=== PATIENT | female | born 1990 | race Caucasian/White ===

== ENCOUNTER 2022-06-23 12:58 | Emergency (ER) | payer BC, SELFPAY ==
[2022-06-23 14:00] VITALS: BP 103/63; PULSE 83; RESP 16; TEMP 36.6; O2SAT 95; BMI 23.5
[2022-06-23 15:11] LABS: Appearance Urine Clear (Clear); Bilirubin Urine Negative (Negative); Blood Urine Trace-intact (Negative); Color Urine Yellow (Yellow); Glucose Urine Negative (Negative); Ketones Urine Negative (Negative); Leukocyte Esterase Urine 1+ (Negative); Nitrite Urine Negative (Negative); Protein Urine Negative (Negative); Urobilinogen Urine 0.2 (0.2-1.0); pH Urine 5.5 (5.0-8.5)
[2022-06-23 15:18] LABS: WBC Urine 0-2 (0-5)
[2022-06-23 15:19] LABS: Squamous Epithelial Cell Urine Few (None-Few)
[2022-06-23 16:28] LABS: Basophils Absolute Auto 0.05 K/uL (0.00-0.30); Basophils Percent Auto 0.5 % (0.0-3.0); Eosinophils Absolute Auto 0.17 K/uL (0.00-0.50); Eosinophils Percent Auto 1.7 % (0.0-7.0); Hematocrit 39.8 % (33.0-51.0); Hemoglobin* 13.1 gm/dL (12.0-16.0); Immature Granulocytes Abs Auto 0.08 K/uL (0.00-0.30); Immature Granulocytes Pct Auto 0.8 %; Lymphocytes Percent Auto 19.5 % (20-44); Mean Corpuscular HGB Conc 33 gm/dL (32-36); Mean Corpuscular Hemoglobin 29 pg (26-34); Mean Corpuscular Volume 88 fL (80-100); Monocytes Percent Auto 6.7 % (0.0-11.0); Neutrophils Absolute Auto 6.96 K/uL (1.7-7.0); Neutrophils Percent Auto 70.8 % (42.0-72.0); Platelet Count* 459 K/uL (140-440); RDW Coefficient of Variation % 13.5 % (11.5-15.5); Red Blood Count 4.53 m/uL (4.00-5.20); White Blood Count* 9.84 K/uL (4.50-11.00)
[2022-06-23 16:34] LABS: Slide Review Reflex No
[2022-06-23] MEDS: 0.9 % SODIUM CHLORIDE 1000 ml 1,000 ML IV (16:37)
[2022-06-23 16:40] LABS: Chloride* 106 mmol/L (96-114)
[2022-06-23 16:41] LABS: Potassium* 3.8 mmol/L (3.6-5.1); Sodium* 139 mmol/L (135-149)
[2022-06-23 16:44] LABS: Blood Urea Nitrogen* 12 mg/dL (5-24); Carbon Dioxide* 24 mmol/L (20-32); Creatinine* 0.6 mg/dL (0.5-1.5); Est. Creatinine Clearance* 132.11; Estimated Glomerular Filt Rate 123 ml/min
[2022-06-23 16:45] LABS: Calcium* 8.5 mg/dL (8.4-10.6); Glucose* 70 mg/dL (60-115)
--- NOTE | 2022-06-23 16:45 | CRLHL7_ITS ---
For Patients: As a result of the Century Cures Act, medical imaging exams and procedure reports are released immediately into your electronic medical record. You may view this report before your referring provider. If you have questions, please contact your health care provider. INDICATION: done 1.5 weeks ago now with left-sided pelvic pain. TECHNIQUE: CT abdomen and pelvis without contrast. COMPARISON: None. FINDINGS: Lower chest: Unremarkable. Liver: Normal in size and attenuation. No suspicious masses. Gallbladder and bile ducts: No stones or inflammation. No biliary dilatation. Pancreas: Unremarkable. No mass or inflammation. Spleen: Normal in size. No masses. Adrenal glands: Normal in size. No nodules. Kidneys: Normal in size. No suspicious masses, stones, or hydronephrosis. GI tract: Unremarkable. Normal in caliber. No sign of mass or inflammation. Normal appendix. Vasculature: Abdominal aorta is normal in caliber. Lymph nodes: No lymphadenopathy. Peritoneum/Abdominal Wall: Postsurgical changes of section in the lower anterior pelvic wall. No free air or free fluid. No abscess identified. Pelvis: Enlarged uterus with hyperdense fluid in the endometrial canal, consistent with recent state. Bones: Transitional anatomy the lumbosacral junction. Otherwise, unremarkable. IMPRESSION: uterus. Otherwise, unremarkable CT of the abdomen and pelvis. No acute findings or CT findings to explain the patient`s left-sided pelvic pain. Please note that all CT scans at this facility use dose modulation, iterative reconstruction, and/or weight-based dosing when appropriate to reduce radiation dose to as low as reasonably achievable. Dictated by Diaz Pineda MD @ 06/23/2022 6:08:37 PM (Electronically Signed)
--- NOTE | 2022-06-23 16:46 | ED_ITS ---
HPI - Female Genitourinary General Chief complaint: Urogenital Problems, Female Stated complaint: Pelvic pain Time Seen by Provider: 06/23/22 16:11 History of Present Illness HPI Narrative: 31-year-old woman presenting to the emergency department with complaint of left pelvic pain. Worse with any movement. Has had difficulty with initiating urination and garcia tremendously after urination. Was given Macrobid which she had hesitated on taking by OB for presumed urinary tract infection. Started this yesterday. This is now 4 days of pain. Has not noticed any swelling or erythema. She has severe pain that starts in the left adnexal area and radiates down toward the urethra she says. There has been no fever. She did have a catheter placed but does not sound like there was any trouble initially. The C- section was 2 weeks ago. Is breast feeding at least pumping and is anxious to receive anything that might get to baby and doesn't want to dump. Wants imaging but appears to want to avoid IV contrast. She is worried she might have a kidney stone. She does not have a personal history of nephrolithiasis. Related Data Home Medications Medication Instructions Recorded Confirmed prenat.vits,luis,[id number] 1 tab PO QDAY 05/20/22 05/20/22 Previous Rx's Medication Instructions Recorded triamcinolone acetonide 0.1 % 1 applic dental BID-TID PRN mouth 05/20/22 dental paste irritation #5 grams Allergies Allergy/AdvReac Type Severity Reaction Status Date / Time Cefprozil Allergy Severe Swelling/Hi Uncoded 05/20/22 14:59 ves Ciprofloxacin Allergy Unknown Uncoded 05/20/22 14:59 Penicillin Allergy Unknown Uncoded 05/20/22 14:59 Review of Systems Status of ROS: Reports: 6 or more systems reviewed and unremarkable except as noted in History and below [facility] Social History Smoking Status: Never smoker Do you use any of these nicotine containing products: None Second hand tobacco smoke exposure: No How often do you have a drink containing alcohol: never AUDIT-C Alcohol total score: 0 Non-prescribed substance use: denies use Exam Narrative: Exam Narrative: Pleasant. Initially tearful requesting some intervention. Breathing easily. Lungs appear to be clear. Cardiovascular with regular rate and rhythm. Abdomen is soft and quite tender in the left adnexal area. No flank pain. I do not appreciate any masses. Incision looks well-healed. No erythema. Extremities are without edema. Returned later with hoop bending machine operator for perineal exam. There is maybe more erythema than I might expect in the periurethral area. Tissues to seem a little puffy. Do not see any lesions. Const: Vital Signs, click to edit/add: Vital Signs - 24 hr 06/23/22 16:49 Temperature 97.2 F L Pulse Rate [Pulse Oximeter] 77 Respiratory Rate 18 Blood Pressure [Le ft Upper Arm] 102/70 Pulse Oximetry 99 Oxygen Delivery Me thod Room Air Documenting provider has reviewed patient's vital signs: yes Course Vital Signs Vital signs: Initial Vital Signs Temperature 97.9 F 06/23/22 14:00 Temperature Source Temporal Artery Scan 06/23/22 14:00 Pulse Rate 83 06/23/22 14:00 Respiratory Rate 16 06/23/22 14:00 Blood Pressure 103/63 06/23/22 14:00 Blood Pressure Mean 76 06/23/22 14:00 Pulse Oximetry 95 06/23/22 14:00 Oxygen Delivery Method 06/23/22 14:00 Vital Signs Temperature 97.9 F 06/23/22 14:00 Pulse Rate 83 06/23/22 14:00 Respiratory Rate 16 06/23/22 14:00 Blood Pressure 103/63 06/23/22 14:00 Pulse Oximetry 95 06/23/22 14:00 Oxygen Delivery Method 06/23/22 14:00 Temperature 97.2 F L 06/23/22 16:49 Pulse Rate 77 06/23/22 16:49 Respiratory Rate 18 06/23/22 16:49 Blood Pressure 102/70 06/23/22 16:49 Pulse Oximetry 99 06/23/22 16:49 Oxygen Delivery Method 06/23/22 16:49 MDM - Female Genitourinary MDM Narrative Medical decision making narrative: Unusual to evolve urethral irritation after a week of normalcy. Perhaps there is some impingement on outflow. Could be retaining urine, seroma, ureteral stone? Urinalysis has already been resulted in it does not appear to be infectious etiology. Bladder scan for around 140 and then voided 300 CT abd and pelvis has been done. I do not appreciate any nephrolithiasis. This was done without contrast and considering postop study not ideal but see HPI above. Radiology over-read notes unremarkable CT abdomen and pelvis. On reassessment overall seems improved. Is pumping. Discuss this case with OB on-call who agree with recommendations for phenazopyridine. I think ana-bottle might also be helpful. Lab Data Attestation: I reviewed the patient's lab results. Labs: Lab Results 06/23/22 06/23/22 06/23/22 Range/Units 14:45 16:20 16:20 WBC 9.84 (4.50-11.00) K/uL RBC 4.53 (4.00-5.20) m/uL Hgb 13.1 (12.0-16.0) gm/dL Hct 39.8 (33.0-51.0) % MCV 88 (80-100) fL MCH 29 (26-34) pg MCHC 33 (32-36) gm/dL RDW Coeff of Payal 13.5 (11.5-15.5) % Plt Count 459 H (140-440) K/uL Neut % (Auto) 70.8 (42.0-72.0) % Lymph % (Auto) 19.5 L (20-44) % [place] % (Auto) 6.7 (0.0-11.0) % Eos % (Auto) 1.7 (0.0-7.0) % Baso % (Auto) 0.5 (0.0-3.0) % Neut # (Auto) 6.96 (1.7-7.0) K/uL Lymph # (Auto) 1.90 (0.90-2.90) K/uL [place] # (Auto) 0.70 (0.00-0.90) K/UL Eos # (Auto) 0.17 (0.00-0.50) K/uL Baso # (Auto) 0.05 (0.00-0.30) K/uL Abs Immat Gran (auto) 0.08 (0.00-0.30) K/uL Imm/Tot Granulo (auto) 0.8 % Sodium 139 (135-149) mmol/L Potassium 3.8 (3.6-5.1) mmol/L Chloride 106 (96-114) mmol/L Carbon Dioxide 24 (20-32) mmol/L BUN 12 (5-24) mg/dL Creatinine 0.6 (0.5-1.5) mg/dL Estimated Creat Clear 132.11 Estimated GFR 123 ml/min Glucose 70 (60-115) mg/dL Calcium 8.5 (8.4-10.6) mg/dL C-Reactive Protein < 0.5 L (0.5-1.0) mg/dL Urine Color Yellow (Yellow) Urine Appearance Clear (Clear) Urine pH 5.5 (5.0-8.5) Ur Specific [place] 1.020 (1.000-1.030) Urine Protein Negative (Negative) Urine Glucose (UA) Negative (Negative) Urine Ketones Negative (Negative) Urine Blood Trace-intact A (Negative) Urine Nitrite Negative (Negative) Urine Bilirubin Negative (Negative) Urine Urobilinogen 0.2 (0.2-1.0) Ur Leukocyte Esterase 1+ A (Negative) Urine RBC 5-10 A (0-2) Urine WBC 0-2 (0-5) Ur Squamous Epith Cells Few (None-Few) Urine Bacteria None (None) Discharge Plan Discharge Clinical Impression: Pelvic pain, Urethritis Patient Disposition: Home w/ Parent or Adult Condition: Improved Additional Instructions: Given your concerns, I would continue to take combination of up to 1000 mg of acetaminophen or up to 800 mg of ibuprofen per dose. Washing with the ana bottle would probably be helpful. Can do this during voiding. Watch for any evolving lesions. Might try placing aloe gel containing lidocaine or perhaps hydrocortisone cream. Stay well-hydrated. As long as not markedly worse, I think you can continue with current treatment course over the next 2 days. Otherwise if this is continuing beyond that I would follow up again with your sheet metal superintendent. Pyridium/phenazopyridine from [facility]. Prescriptions: No Action prenat.vits,luis,[id number] Tablet 1 tab PO QDAY triamcinolone acetonide 0.1 % paste 1 applic dental BID-TID PRN (Reason: mouth irritation) Qty: 5 0RF Rx Instructions: use after food and/or drink and/or oral hygiene Follow Up/Referrals: Provider,Not a Local [Primary Care Provider] - Stand Alone Forms: Fronto Info Instructions
[2022-06-23] MEDS: KETOROLAC 30 MG/ML inj IVP (16:47)
[2022-06-23 16:49] VITALS: BP 102/70; PULSE 77; RESP 18; TEMP 36.2; O2SAT 99
[2022-06-23 16:49] LABS: C Reactive Protein* < 0.5 mg/dL (0.5-1.0)
--- NOTE | 2022-06-23 16:56 | ED.NURSE ---
Pt to CT
--- OUTSIDE RECORDS SUMMARY | 2022-06-23 17:38 | XMS_ITS | Encounter Summary ---
:1990 Author Organization [place] Address 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 documented as of this encounter Plan of Treatment Not on filedocumented as of this encounter Visit Diagnoses Not on filedocumented in this encounter Additional Health Concerns Assessment Noted Time PHQ-9 Depression Total Score: 2 01/26/2019 11:18 AM CD T documented as of this encounter Care Teams Needle Board Repairer Relationship Specialty Start Date End Date Justin Loya MD PCP - General Family Practice 02/19/11 [facility] [address] [place] [address] Silas Santiago MD MD Pain Clinic 11/29/13 [facility] [address] [place], [place] [id number] Caden Leone, Assigned Surgical Provider 07/20 01/08 [place] [address] documented as of this encounter
--- OUTSIDE RECORDS SUMMARY | 2022-06-23 17:38 | XMS_ITS | Clinical Summary ---
:1990 Author Organization [facility] [place] [address] Care Team Providers Name Role Phone Justin Loya MD Primary Care Provider [phone] Allergies Active Allergy Reactions Severity Noted Date Comments Cefprozil Hives, Edema High 02/17/2011 Cephalosporins *Unknown 08/17/2015 Ciprofloxacin Paresthesias 11/01/2016 Penicillins Hives, Rash, Edema High 09/22/2011 Pollen Extracts Other - Describe In 03/31/2013 Seaso nal Allergies - Comment Field Sneezing. Propylthiouracil Rash 08/15/2021 Metoclopramide Anxiety, Other - Describe 02/29/2020 Restlessness, In Comment Field squirming Medications Medication Sig Dispensed Refills Start Date End Date Status Cholecalciferol, Take 5,000 Units 0 Active Vitamin D3, (VITAMIN by mouth. D-3) 400 unit capsule magnesium oxide 240 mg Take 1 tablet by 0 Active magnesium pwpk mouth once daily. levalbuterol (XOPENEX inhale 2 puffs (45 15 g 0 0 Active HFA) 45 mcg/actuation mcg) by inhalation inhaler route every 6 hours as needed wheezing LORazepam (ATIVAN) 1 Take 1 Tablet (1 30 Tablet 0 04/08/2021 Active mg tabletIndications: mg) by mouth 3 Panic disorder times daily. vit,luis Vitamin 0 Active 74/iron/folic ( VITAMIN 1+1 ORAL) mupirocin (BACTROBAN 0 07/19/2021 Active OINTMENT) ointment triamcinolone 0.1% Apply small amount 1 g 2 05/08/2022 Active (KENALOG IN ORABASE) to affected area 0.1 % in mouth 2 times a pasteIndications: Oral day. ulcer Active Problems Problem Noted Date Difficulty of mother performing 06/16/20 [facility] Pre-conception counseling 08/16/2021 Overview: [facility] CONSULTATION ON -- 09/05/21 Virtual Visit (this appt is going to be moved off VV day and onto MOMS day per Dr. Villar) [facility] consult with last 0 --WW Pt had preconception consult with Dr. Cindy Stephen on 11/14/19 --in [place] REASON FOR CONSULT: Maternal complicatio ns (increased vaginal bleeding and abd pain requiring US x 2, CT abd and pelvis scans at [facility], PT, pelvic massage PT, consults with neurology for left leg weakness and LLQ pain) since last delive ry 08/2020--discuss results TODAY'S APPOINTMENT: MD Consultation PRIMARY DIAGNOSIS: 30 y.o. Estim ated Date of Delivery: None noted. Complicated medical hx --reviewed record s from previous clinics and hospital systems. Also multiple antibiotic allergies ?? Thrombus of left jugular vein 05/2017 -History of a clot on the neck when she had IV contrast injected for an MRI. She was seen for a thrombophilia work up that was negative. Her father and PGM have history of clot s as well. She was treated with Xarelto ?? POTS ?? Hx of chronic pain on her face, neck, lower extremities, back and abdomen ?? Trigeminal neuralgia (facial pain)--s ees Neurology at [facility] ?? H/O ROM and delivery at 34 we eks 08/2020--had C/S--pt with continued pain following C/S (pt refuses epidural or spinal d/t back issues) --had an emergency C/S requiring genera l anesthesia as well as a TAP block, she had LLQ pain and tenderness as well as subjective left leg weakness, especialy when lifting her thigh. She as a sensation of tugging in the LLQ when cycling as w ell. She has not noted any lump or bulge. She saw a neurologist last year and did not have any conclusion from that consult. Has a H/O lumbar surgery but states t hat she had a lumbar MRI that was normal . Evaluation for hernia negative--see surgical consult scan 08/06/21. ?? Anxiety--baseline anxiety is high, pt was reluctant to treat with medications , mental health consult was ordered by declined by pt. -- pt has had multiple phone calls requ esting labs and tests, see 08/08/21 telephone note -- note: Very anxious, requi ring a lot of RN support. Pt saw multiple providers within [facility] for care ([facility], [place], [place], and [facility]). Per RN, pt asking the same questions multip le times to various staff. ?? H/O spine decompression L5/S1--surger y done --declines spinal or epidural blocks, needs general anesthesia for C/S ?? UTI symptoms (dysuria, frequency, abd ominal pain): ?? Graves Disease dx 07/2019--stopped martín atment when she found out she was . Per Dr. Stephen in [place] on 11/14/19: --Subacute thyroiditis for which the pa tient is now euthyroid and TSH has improved to the mid normal range. (see endo note from 08/15/21) ?? H/O Vaginismus and pelvic dysfunction and has done PT and used vaginal dilators (TVUS causes pain, declines speculum exams) ?? Raynaud's Disease--neg SSA, SSB 07/11 ?? BMI = 19 REFERRING PHYSICIAN/PHONE/LAST UPDATE: Hien Galindo, [facility] [phone] Primary MD approves scheduling of recomm ended ultrasounds/testing: Not specified SPECIALISTS/CONSULTS: Multiple Counseling at [facility] Neurology: Dr. Torsten Umaña 10/30/20 (s nicolas in [facility]) consult for Left leg weakness and pulling sensation in left groin since C/S Vascular Medicine: Dr. Iglesia Givens- [facility] Rheumatology: Dr. Jocelyn George, Ophthamology: Dr. Silas Jorge, [facility] Endocrinology: Dr. Lois Carr, LV /2 02/07: I have reviewed lab findings with the patient in detail. She is reassured that she is euthyroid. For planning, goal TSH is under 2.5, but given t hat the patient has negative TPO antibod y and TSH is improving, it is reasonable to monitor and not treat with levothyroxine at this point. Also, patient is reassured that Graves disease still remains i n remission. 2. We discussed thyroid hor jocelyne changes during . The patient is interested in starting to attempt now. In the meantime, she has upcoming appointment with her AGRICULTURE LABORATORY TECHNICIAN because of change in her cycles and delayed ovul ation. Current labs do not explain the change in her menstrual cycles. 3. Recheck a TSH, free T4, free T3 in 6 weeks. The patient in the meantime should call if s he has a positive test. We carol martínez plan to do monthly thyroid labs until 16 weeks and then each trimester. *recent Anesthesiologist consult 08/08/21 : Called patient at request of Dr. Galindo to discuss prior anesthetic for and discuss anesthetic options for future c-sections (not currently ). Approximately 1 year ago, patient had a general anesthetic for her along with TAP blocks. After the procedure, she has had persistent pain when flexing the left leg at the hip. She is wonderi ng if the TAP block could have caused th is. I reassured her that the TAP block only blocks the small anterior rami sensory nerves of the anterolateral abdominal wall and would not have be a contributing factor to her left leg/hip symptoms. We also spent a significant amount of time discussing risks, benefits, contraindications to regional anesthesia (along with general anesthesia) in a very broad sens e (e.g. risk of paralysis, risk of being on blood thinners, risk of spinal headaches, etc). She was concerned about being told she has low lying cerebellar tonsils on an MRI performed at [facility]. She sta sophia she has not been told anything about Chiari Malformation. I can't see this MRI - but based on her MRI from 2017, I don't see an immediate reason why she would not be able to have a regional anesthet ic. I discussed with her that should she become , we would explore her MRI from [facility] further to see if there are concerning findings, and we could delve further into a discussion on risks/benefits of regional vs. GA for her Include: Specialty MD Clinic Name Phone# [facility] [place] and ADDED TO PATIENT CARE TEAM No CARE COORDINATION: GENETICS: PROCEDURES: MRI lumbar spine 07/2021 PERTINENT LABS: 07/31/21: TSH = 2.99, candi e T4 = 0.90, T3 = 2.60, TSI = 0.15 = 2.99, TPO antibody = 4 07/11/21: SSA and SSB WNL PERTINENT MEDS: Vitamin D, Ferrous sulfa te, Xopenex, ativan, magnesium Preferred delivery location: pt does not want to go back to [facility], looking at [facility] or [facility] PLAN OF CARE: Plan per Dr. Kimberly Waldrop ke, [place] [facility]: 05/2021: Preconception counseling done - recommend waiting 1 year to conceive after c- section. Briefly discussed history; patien t likely will plan repeat . Als o discussed h/o jugular vein thrombus after injection of contrast for MRI. [facility] recommended lovenox PP in 1st . Will plan MFM consult in next as well. Also discussed h/o PPROM at 36 we eks - discussed option for Makeena, cervical length U/S. Incisional pain 08/28/2020 Plan 08/22/2020 Overview: hyponbabies Vaginismus 01/13/2020 High-risk in third trimester 01/13/2020 Overview: Formatting of this note is dif ferent from the original. 29 y.o. Patient wants to avoid regional anesthes ia - Patient doesn't qualify for water due to history of DVT and POTS Medical concerns: ?? Thrombus of left jugular vein 05/2017 - [facility] recommended bASA only ?? POTS ?? Hx of chronic pain on her face, neck, lower extremities, back and abdomen ?? Trigeminal neuralgia (facial pain)--s ees Neurology at [facility] - no medications ?? Anxiety - has therapist, no meds H/O spine decompression L5/S1--surgery done , Asthma-exercise induced, Migraines, Vaginismus, Insomnia, Neuropathy, Exopho janice of right eye, Raynaud's disease Hx of thyroid disorder: Graves(hyperthyr oid)- sees endocrinology Dr. Dawson -no medications currently bASA Genetic screening: per [facility]- NIPT ordered BMI:19.7; 25-35# Recommended wt gain HSV: denies Ultrasound findings: 01/30/20 IMPRESSION: 1. Valles, viable, intrauterine pregn krystina. 2. Ultrasound EDC is 09/18/2020 with a ges tational age of 6 weeks 6 days. 3. Left corpus luteum cyst are seen. ??Flu vaccine: Declines- reports history of nervous system reaction with previous flu vaccine Pertussis Vaccine: Peds: undecided : Benjie Graves disease 07/20/2019 History of DVT (deep vein thrombosis) 07/20/2019 Overview: Prior IJ thrombosis From radiologic proc edure (2018) on Xarelto for 3 months then discontinued Negative acquired/congenital thrombophil ia workup No need for heparin prophylaxis in pregn krystina but would utilize low dose ASA as patient also has Graves hyperthyroid Postural orthostatic tachycardia syndrome 02/22/2018 Paresthesia 02/22/2018 Hypermobility syndrome 02/22/2018 Sensory disorder 10/12/2017 Hyperthyroidism complicating , second trimest er Threatened premature labor in second trimester Constipation during in third trimester uterine contractions Estimated Date of Delivery Comments Yes 06/15/2022 Resolved Problems Problem Noted Date Resolved Date [facility] Supervision of high-risk 02/07/2020 0 08/16/2021 Overview: Formatting of this note is dif ferent from the original. [facility] CONSULTATION ON 02/13/20 -- Virtual visit MOMS pt had preconception consult with Dr. Cindy Stephen on 11/14/19--in [place] CONSULT VISIT ALERT: Create and link episode at day of visit . Document in Dating section GA = 8w6d EDC = 09/18/20 REASON FOR CONSULT: referral to see [facility] for consultation for possible need for anticoagulation in , as she used Xarelto for three month after provoked partial thrombus of the left internal jugu lar vein after MRI to investigate for po ssible brain mass. The MRI was negative. What would you like to discuss or review ? Results [facility]:(osiris ect all that apply) Consult on risks/management Genetic Testing Would you like the Clinic to s chedule ultrasound/testing or follow up visits for the patient? I approve future TODAY'S APPOINTMENT: MD Consultation and GC consult PRIMARY DIAGNOSIS: 29 y.o. Estim ated Date of Delivery: 09/18/20 Complicated medical hx --reviewed record s from previous clinics and hospital systems. Also multiple antibiotic allergies ?? Thrombus of left jugular vein 05/2017 -History of a clot on the neck when she had IV contrast injected for an MRI. She was seen for a thrombophilia work up that was negative. Her father and PGM have history of clot s as well. She was treated with Xarelto ?? POTS ?? Hx of chronic pain on her face, neck, lower extremities, back and abdomen ?? Trigeminal neuralgia (facial pain)--s ees Neurology at [facility] ?? Anxiety--MARIA R 7, PHQ 9, pt has had mul tiple phone calls requesting labs and tests ?? H/O spine decompression L5/S1--surger y done ?? Nausea, constipation (uses reglan ins tead of zofran) ?? UTI symptoms (dysuria, frequency, abd ominal pain): Since her symptoms started, she feels that she may have a kidney infection or kidney stones. She has had 4 urinalysis and a urine cu lture that were negative for infections and she wants to have an Ultrasound to make sure she does not have either of Those. F/U: States symptoms have improved since using Cleocin cream ?? Graves Disease dx 07/2019--stopped martín atment when she found out she was . Per Dr. Stephen in [place] on 11/14/19: She was started on methimazole and her TSH and T4 have rapidly normalized. She is currently on 2.5 mg daily. She does have positive TSI, no other autoantibodies per her report. No other autoimmune hist ory personally or in the family that she is aware of ?? H/O Vaginismus and pelvic dysfunction and has done PT and used vaginal dilators (TVUS causes pain) ?? BMI = 19 LAST GROWTH: 01/30/20 (6w6d) REFERRING PHYSICIAN/PHONE/LAST UPDATE: Hien Mariano, [facility] Shabbir [phone] Primary MD approves scheduling of recomm ended ultrasounds/testing: Yes SPECIALISTS/CONSULTS: Multiple Neurology: Dr. Silas Dean--[facility] 11/07/19 Vascular Medicine: Dr. Iglesia Givens- [facility] Rheumatology: Dr. Jocelyn George, Ophthamology: Dr. Silas Jorge, [facility] iew Include: Specialty MD Clinic Name Phone# [facility] [place] and ADD TO TREATMENT TEAM CARE COORDINATION: GENETICS: 01/2720 PROCEDURES: PERTINENT LABS: Labs not comple nisreen yet A Pos 07/12/19: TSH = <0.01, T4 = 2.7 PERTINENT MEDS: Atenolol (was having pal pitations r/t Graves disease, is she still on this?), albuterol, vitamin D, flexeril, reglan, PNV, cleocin vaginal cream Preferred delivery location: [facility] PLAN OF CARE: Encounters Date Type Specialty Care Team Description 06/16/2022 Hospital Encounter Referring, Provider Di fficulty of mother performing trudi stfeeding (Primary Dx) 06/16/2022 Travel 06/13/2022 Telephone Erica Valdez Appoint ment Request E 05/22/2022 Telephone Sonia Devlin Appointmen t Request MD Gama (Tongue Sores) 05/08/2022 Office Visit Sonia Devlin Consult (T ongue Sores) MD Gama 05/08/2022 Travel 04/24/2022 Office Visit Justin Loya Consult (Sor e Lt) Sayda Mitchell MD Toe, dropped va cuum on it yesterday) 04/23/2022 Office Visit Care, [facility] Urgent Error-plea se disregard; Error-please di rahul (appt cancellat ion) 04/23/2022 Travel from Last 3 Months Immunizations Name Administration Dates Next Due DTaP 03/04/1996, 08/27/1992, 07/07/1991, 04/26/1991, 03/01/1991 HIB PRP-T (ActHIB,Hiberix) 04/06/1992, 07/07/1991, 1, 03/01/1991 Hepatitis A (Peds) 11/09/2009, 09/22/2008 Hepatitis B (Peds) 04/28/2003, 11/07/2002, 10/06/2002 Inactivated Polio Vaccine 03/04/1996, 08/27/1992, 04/26/1991 , 03/01/1991 MMR 05/28/2001, 04/06/1992 Meningococcal Vaccine (Menactra) 09/22/2008 Td, Preservative Free (age >= 7 Years) 01/03/2003 Tdap 09/22/2008 Family History Medical History Relation Name Comments Allergies Father Anesthesia Problem Father difficulty wa roselyn up, nausea Arthritis Father Deep vein thrombosis Father Good Health Maternal Grandfather Asthma Maternal Grandmother Thyroid Disease Maternal Grandmother Good Health Mother Good Health Paternal Grandfather Alcoholism Paternal Grandmother Asthma Paternal Grandmother Deep vein thrombosis Paternal Grandmother blood clots Lung cancer Paternal Grandmother Osteoporosis Paternal Grandmother Relation Name Status Comments Father Alive Maternal Grandfather Alive Maternal Grandmother Alive Mother Alive Paternal Grandfather Alive Paternal Grandmother Alive Social History Tobacco Use Types Packs/Day Years Used Date Never Smoker Smokeless Tobacco: Never Used Tobacco Cessation: Counseling Given: Yes Alcohol Use Standard Drinks/Week Comments Not Currently 0 (1 standard drink = 0.6 oz pure alcoho l) Alcohol Habits Answer Date Recorded How often do you have a drink containing alcohol? Monthly or less 01/11/2020 How many drinks containing alcohol do you have on a 1 or 2 01/11/2020 typical day when you are drinking? How often do you have six or more drinks on one Not asked occasion? Comment: Not asked Estimated Date of Delivery Comments Yes 06/15/2022 Sex Assigned at Date Recorded Not on file COVID-19 Exposure Response Date Recorded In the last 10 days, have you been in contact with No / Unsu re 06/16/2022 2:21 PM CANDY SPREADER someone who was confirmed or suspected to have Coronavirus/COVID-19? Obstetrics History Para Term AB IAB SAB Ectopic Multiple Living Live Births 2 1 0 1 0 0 0 0 0 1 1 Date Outcome GA Total Labor/2nd/3rd Weight Sex Delivery Anes PTL [place] A 1 A5 Name Clin Labor 08/25 36w 1h 31m 1h 31m 2.54 kg M Gener N Shreya 8 9 SWENS 0d (5 lb , B al ng ON,BB to ne, 9.6 oz) LINA dominguez MD Complications: None Delivery Location: Hospital ([facility] [address] L&D TRIAGE) Current Comments 12/17/19 Last Filed Vital Signs Vital Sign Reading Time Taken Comments Blood Pressure 106/60 04/24/2022 2:41 PM CDT Pulse 64 04/24/2022 2:41 PM CDT Temperature 37.4 ??C (99.4 ??F) 12/31/2021 1:40 PM CDT Respiratory Rate 16 12/31/2021 1:40 PM CDT Oxygen Saturation 99% 03/20/2022 1:24 PM CDT Inhaled Oxygen Concentration - - Weight 72.6 kg (160 lb) 04/24/2022 2:41 PM CDT Height 170.2 cm (5' 7) 04/24/2022 2:41 PM CDT Body Mass Index 25.06 04/24/2022 2:41 PM CDT Plan of Treatment Upcoming Encounters Date Type Specialty Care Team Description 07/03/2022 Office Visit Dony Devlin MD [address] [place] [phone] (Wo rk) Health Maintenance Due Date Last Done Comments COVID-19 vaccine series (#1) 06/26/1991 Tetanus booster 09/22/2018 09/22/2008, 01/03/2003 Influenza for age 9-49 03/20/2022 Depression screening for age 12+ 03/20/2023 03/20/2022, , 10/05/2020, Additional history exists BMI (ht and wt on same day) for 04/24/2023 04/24/2022, 09/0 07/2021, age 18+ 11/14/2021, Additional history exists Pap test for age 21-65 05/21/2024 05/21/2021 (Completed out side of [facility]) Tdap Completed 09/22/2008 HIV for age 15-65 Completed 03/01/2020 Hepatitis C screening for age Completed 03/01/2020 18-79 Results Not on filefrom Last 3 Months Insurance Payer Benefit Plan / Subscriber ID Effective Dates Phone Addre ss Type Group WC WORKERS COMP WC EM [id number] 2018-Present [address] [place] [address] [employer] [place] [id number] 2021-Present [address] [place] [address] Destiney Cassidy Workers Comp Self [id number] (Home) [place] [address] Destiney Cassidy Personal/Family Self [id number] (Home) [place] [address] Destiney Cassidy Personal/Family Self [phone] (Home) [place] [address] Advance Directives Latest Code Status on File Code Status Date Activated Date Inactivated Comments Full Code 08/24/2020 9:45 PM 08/28/2020 6:10 PM Code Status Discussion: Discussed Care Teams 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
--- OUTSIDE RECORDS SUMMARY | 2022-06-23 17:38 | XMS_ITS | Encounter Summary ---
:1990 Author Organization [place] Address [address] [facility] [place] [address] Care Team Providers Name Role Phone Justin Loya MD Primary Care Provider Silas Santiago MD Unavailable Caden Leone MD Unavailable [phone] Reason for Referral Diagnostic Imaging Ultrasound (Urgent: 3-5 Days) - Pending Review Specialty Diagnoses / Procedures Referred By Contact Refer red To Contact Diagnoses DVT (deep vein thrombosis) in Johan Pollard MD Procedures US Lower Extremity Venous Duplex Right [facility] [address] [employer] [place] [address] Referral ID Status Reason Start Date Expiration Date Visits V isits Requested Authorized [id number] Pending 06/02/2022 06/02/2023 1 1 Review [employer]MER Reason for Visit Diagnostic Imaging Ultrasound (Urgent: 3-5 Days) - Pending Review Specialty Diagnoses / Procedures Referred By Contact Refer red To Contact Diagnoses DVT (deep vein thrombosis) in Johan Pollard MD Procedures US Lower Extremity Venous Duplex Right [facility] [address] [place] [address] Referral ID Status Reason Start Date Expiration Date Visits V isits Requested Authorized [id number] Pending 06/02/2022 06/02/2023 1 1 Review Encounter Details Date Type Department Care Team Description 06/02/2022 Hospital Encounter [facility] Johan Pollard DVT (deep vein [facility] MD Ah[place] thrombosis) in [address] [facility] [place], [place] [address] [phone] [facility] [address] [place] [address] Social History Tobacco Use Types Packs/Day Years Used Date Smoking Tobacco: Never Smokeless Tobacco: Never Alcohol Use Standard Drinks/Week Comments No 0 (1 standard drink = 0.6 oz pure alcoho l) Sex Assigned at Date Recorded Not on file COVID-19 Exposure Response Date Recorded In the last 10 days, have you been in contact with No / Unsu re 06/02/2022 5:39 PM [employer] someone who was confirmed or suspected to have Coronavirus/COVID-19? documented as of this encounter Medications at Time of Discharge Medication Sig Dispensed Refills Start Date End Date acetaminophen (TYLENOL) Take 2 tablets (1,000 0 1 08/13/2021 500 MG mg) by mouth every 6 tabletIndications: S/P hours enoxaparin Inject 0.4 mLs (40 mg) 12 mL 1 06/13/2022 ANTICOAGULANT (LOVENOX) Subcutaneous every 24 40 MG/0.4ML hours for 30 days syringeIndications: S/P ibuprofen Take 4 tablets (800 0 06/13/2022 (ADVIL/MOTRIN) 200 MG mg) by mouth every 6 tabletIndications: S/P hours as needed for moderate pain (4-6) Magnesium Hydroxide 0 (MAGNESIA PO) oxyCODONE (ROXICODONE) Take 1-2 tablets (5-10 20 tablet 0 1 08/13/2021 5 MG tabletIndications: mg) by mouth every 3 S/P hours as needed for moderate to severe pain polyethylene glycol Take 1 packet by mouth 0 (MIRALAX) 17 g packet daily Vit-Fe Take 1 tablet by mouth 0 Fumarate-FA ( daily MULTIVITAMIN PLUS IRON) 27-1 MG TABSIndications: ferrous sulfate Take 325 mg by mouth 0 02/14/2021 06/13/2022 (FEROSUL) 325 (65 Fe) daily MG tablet documented as of this encounter Plan of Treatment Not on filedocumented as of this encounter Procedures Procedure Name Priority Date/Time Associated Diagnosis Comme nts US LOWER EXTREMITY STAT 06/02/2022 7:02 PM DVT (deep vein R esults for this VENOUS DUPLEX RIGHT [employer] thrombosis) in proced ure are in the results section. documented in this encounter Results US Lower Extremity Venous Duplex Right (06/02/2022 7:02 PM [employer] TR[employer]MER) Anatomical Region Laterality Modality Lower Extremity Ultrasound Specimen (Source) Anatomical Collection Method Collection Time Re ceived Time Location / / Volume Laterality 06/02/2022 7:02 PM [employer] Impressions 06/02/2022 7:16 PM [employer] IMPRESSION: 1. ??No deep venous thrombosis in the ri t lower extremity. Narrative 06/02/2022 7:16 PM [employer]STINGS [employer] EXAM: US LOWER EXTREMITY VENOUS DUPLEX RIGHT LOCATION: [facility] DATE/TIME: 06/02/2022 INDICATION: ??DVT (deep vein thrombosis) in . Right calf pain. History of left internal jugular vein DVT. COMPARISON: None. TECHNIQUE: Venous Duplex ultrasound of t he right lower extremity with and without compression, augmentation and duplex. Color flow and spectral Doppler with waveform analysis performed. FINDINGS: Exam includes the common femor al, femoral, popliteal, and contralateral common femoral veins as well as segmentally visualized deep calf veins and greater saphenous vein. RIGHT: No deep vein thrombosis. No super ficial thrombophlebitis. No popliteal cyst. Procedure Note Silas Baker MD - 06/02/2022Forma tting of this note might be different from the original. EXAM: US LOWER EXTREMITY VENOUS DUPLEX R [facility] LOCATION: [facility] DATE/TIME: 06/02/2022 INDICATION: DVT (deep vein thrombosis) i n . Right calf pain. History of left internal jugular vein DVT. COMPARISON: None. TECHNIQUE: Venous Duplex ultrasound of t he right lower extremity with and without compression, augmentation and duplex. Color flow and spectral Doppler with waveform analysis performed. FINDINGS: Exam includes the common femor al, femoral, popliteal, and contralateral common femoral veins as well as segmentally visualized deep calf veins and greater saphenous vein. RIGHT: No deep vein thrombosis. No super ficial thrombophlebitis. No popliteal cyst. IMPRESSION: 1. No deep venous thrombosis in the righ t lower extremity. Johan Pollard MD IMG US ORDERABLES documented in this encounter Visit Diagnoses Diagnosis DVT (deep vein thrombosis) in Deep phlebothrombosis, antepartum, unspe cified as to episode of care documented in this encounter Additional Health Concerns Assessment Noted Time PHQ-9 Depression Total Score: 2 01/26/2019 11:18 AM CD T documented as of this encounter Care Teams Lead Electrical Controls Engineer Relationship Specialty Start Date End Date Justin Loya MD PCP - General Family Practice 02/19/11 [facility] [address] [place] [id number] Silas Santiago MD MD Pain Clinic 11/29/13 [facility] [address] [place], [place] [id number] Caden Leone, Assigned Surgical Provider 07/20 01/08 MD Mike [address] [place], [place] [phone] documented as of this encounter
--- OUTSIDE RECORDS SUMMARY | 2022-06-23 17:38 | XMS_ITS | Encounter Summary ---
:1990 Author Organization [place] Address [address] [place] [address] Care Team Providers Name Role Phone Justin Loya MD Primary Care Provider Silas Santiago MD Unavailable Caden Leone MD Unavailable [phone] Reason for Visit Auth/Cert Specialty Diagnoses / Procedures Referred By Contact Refer red To Contact conservation planner Diagnoses Previous section Previous section [Z98.891] Sh Mac Procedures [facility] FULL ROUT OBSTE CARE, DELIV [facility] DELIVERY ONLY [facility] DELIVERY+ CARE REPEAT SECTION [address], [address] [place] [address] Phone: Referral ID Status Reason Start Date Expiration Date Visits Requ ested Visits Authorized [id number] 1 1 Encounter Details Date Type Department Care Team Description 06/09/2022 Lab [facility] Pre-operative cardiovascular Laboratory examination [address] [address] Social History Tobacco Use Types Packs/Day Years Used Date Smoking Tobacco: Never Smokeless Tobacco: Never Alcohol Use Standard Drinks/Week Comments No 0 (1 standard drink = 0.6 oz pure alcoho l) Sex Assigned at Date Recorded Not on file COVID-19 Exposure Response Date Recorded In the last 10 days, have you been in contact with No / Unsu re 06/09/2022 8:19 AM [employer] someone who was confirmed or suspected to have Coronavirus/COVID-19? documented as of this encounter Plan of Treatment Not on filedocumented as of this encounter Procedures Procedure Name Priority Date/Time Associated Diagnosis Comme nts TYPE AND SCREEN, Routine 06/09/2022 8:43 AM Pre-operative Resu lts for this ADULT [employer] cardiovascular procedure are in examination the results section. TREPONEMA ABS W STAT 06/09/2022 8:43 AM Pre-operative Resul ts for this REFLEX TO RPR AND [employer] cardiovascular procedur e are in TITER examination the results section. HEMOGLOBIN Routine 06/09/2022 8:43 AM Pre-operative Results for this [employer] cardiovascular procedure are in examination the results section. ABO/RH TYPE AND Routine 06/09/2022 8:43 AM Pre-operative Resul ts for this SCREEN [employer] cardiovascular procedure are in examination the results section. documented in this encounter Results Adult Type and Screen (06/09/2022 8:43 AM [employer]) [employer] Method Time Signature ABO/RH(D) A POS 06/08/2022 BLOOD 6:00 PM [employer] BANK Antibody Negative Negative 06/08/2022 BLOOD Screen 6:00 PM [employer] BANK SPECIMEN [id number] 06/08/2022 BLOOD EXPIRATION 6:00 PM [employer] B[facility] DATE Specimen Anatomical Collection Method / Collection Time Recei ching Time (Source) Location / Volume Laterality Blood STRUCTURE OF RIGHT Venipuncture / 06/09/2022 8:43 05/21 8:44 UPPER LIMB / Unknown AM [employer] AM [employer] Unknown Kimberly Ramsay MD LAB - BLOOD BANK TEST ORDER Performing Organization Address City/State/ZIP Code Phon e Number BLOOD BANK [address] [place] [phone] T[employer]on[employer] Abs w Reflex to RPR and Titer (06/09/2022 8:43 AM [employer]) [employer] Method Time Signature Treponema Nonreactive Nonreactive 06/09/2022 [facility] Antibody 11:50 AM [employer] CORE/PROT/EN Total DO Specimen Anatomical Collection Method / Collection Time Recei ching Time (Source) Location / Volume Laterality Blood STRUCTURE OF RIGHT Venipuncture / 06/09/2022 8:43 11/2 07/2021 8:44 UPPER LIMB / Unknown AM [employer] AM [employer] Unknown Kimberly Ramsay MD LAB - BLOOD ORDERABLES Performing Organization Address City/State/ZIP Code Phon e Number [facility] CORE/PROT/ENDO [facility] [place] [address] Core/Prot/Endo [address] [facility] [address], Room 3-580 Hemoglobin (06/09/2022 8:43 AM [employer]) athologist Signature Hemoglobin 11.9 11.7 - 15.7 06/09/2022 LABORATORY g/dL 8:47 AM [employer] Specimen Anatomical Collection Method / Collection Time Recei ching Time (Source) Location / Volume Laterality Blood STRUCTURE OF RIGHT Venipuncture / 06/09/2022 8:43 11/07/2021 8:44 UPPER LIMB / Unknown AM [employer] AM [employer] Unknown Kimberly Ramsay MD LAB - BLOOD ORDERABLES Performing Organization Address City/State/ZIP Code Phon [place] [address] [phone] [facility] [address] floor, [address] documented in this encounter Visit Diagnoses Diagnosis Pre-operative cardiovascular examination documented in this encounter Additional Health Concerns Assessment Noted Time PHQ-9 Depression Total Score: 2 01/26/2019 11:18 AM CD T documented as of this encounter Care Teams Glass Laminating Operator Relationship Specialty Start Date End Date Justin Loya MD PCP - General Family Practice 02/19/11 [facility] [address] [place] [address] Silas Santiago MD MD Pain Clinic 11/29/13 [facility] [address] [place], [place] [address] Caden Leone, Assigned Surgical Provider 07/20 01/08 MD Mike [place], [place] [address] documented as of this encounter
--- OUTSIDE RECORDS SUMMARY | 2022-06-23 17:38 | XMS_ITS | Encounter Summary ---
:1990 Author Organization [facility] Address [address] [place] [address] Care Team Providers Name Role Phone Justin Loya MD Primary Care Provider Silas Santiago MD Unavailable Caden Leone MD Unavailable [phone] Reason for Visit Reason Comments Scheduled Section Auth/Cert Specialty Diagnoses / Procedures Referred By Contact Refer red To Contact edi consultant Diagnoses Previous section Previous section [Z98.891] Sh Mac Procedures [facility] FULL ROUT OBSTE CARE, DELIV [facility] DELIVERY ONLY [facility] DELIVERY+ CARE REPEAT SECTION [address], [address] [place] [address] Phone: Referral ID Status Reason Start Date Expiration Date Visits Requ ested Visits Authorized [id number] 1 1 Encounter Details Date Type Department Care Team Description 06/10/2022 Surgery [facility] Kimberly Ramsay, REPEAT SECTION [facility] [address], [address] [place] [address] [place] [phone] Surgery Details Date/Time Status Location OR Service Patient Class Case Case Trauma Class Type Case? 06/10/22 1:00 Posted L+D LD 01 Obstetrics Outpatient PM Panel 1 Procedure LRB Anes Op Region Wound Class Commen ts REPEAT SECTION N/A General Abdomen II-Clean Con taminated Surgeon Surgeon Role Service Panel Tresa Flowers MD Assisting Obstetrics 1 Kimberly Ramsay MD Primary Obstetrics 1 documented in this encounter Social History Tobacco Use Types Packs/Day Years Used Date Smoking Tobacco: Never Smokeless Tobacco: Never Alcohol Use Standard Drinks/Week Comments No 0 (1 standard drink = 0.6 oz pure alcoho l) Sex Assigned at Date Recorded Not on file COVID-19 Exposure Response Date Recorded In the last 10 days, have you been in contact with No / Unsu re 06/09/2022 8:19 AM CARDIOLOGY NURSE someone who was confirmed or suspected to have Coronavirus/COVID-19? documented as of this encounter Last Filed Vital Signs Vital Sign Reading Time Taken Comments Blood Pressure 108/77 06/10/2022 3:00 PM CARDIOLOGY NURSE Pulse 102 06/10/2022 3:00 PM CARDIOLOGY NURSE Temperature 36.3 ??C (97.4 ??F) 06/10/2022 2:50 PM CARDIOLOGY NURSE Respiratory Rate 14 06/10/2022 3:00 PM CARDIOLOGY NURSE Oxygen Saturation 100% 06/10/2022 3:00 PM CARDIOLOGY NURSE Inhaled Oxygen Concentration - - Weight 76.2 kg (168 lb) 06/10/2022 11:08 AM CARDIOLOGY NURSE Height 170.2 cm (5' 7) 06/10/2022 11:08 AM CARDIOLOGY NURSE Body Mass Index 26.31 06/10/2022 11:08 AM CARDIOLOGY NURSE documented in this encounter Discharge Summaries Kimberly Ramsay MD - 06/13/2022 4:00 PM CST Admit Date: 06/10/2022 Discharge Date: 06/13/2022 ADMISSION DIAGNOSES: 1. Intrauterine at 39+2 weeks. 2. History of previous section, desires repeat section. DISCHARGE DIAGNOSES: 1. Intrauterine at 39+2 weeks. 2. History of previous section, desires repeat section. 3. Acute blood loss anemia. HISTORY OF PRESENT ILLNESS: This patient is a 31-year-old G2, P0-1-0-1, at 39+2 weeks' gestation. She has a history of section in her first . She was counseled regarding this during her and did wish to proceed with a repeat section. The patient also had concerns about spinal anesthesia and did prefer general anesthesia for her section. She was counseled extensively regarding this, including an Anesthesia consult, and plan was made to proceed as she requested with general anesthesia for her section. Please see her admission history and physical for further details. DESCRIPTION OF PROCEDURE: The patient was therefore taken to the operating room on the day of admission, which was 06/10/2022, and a repeat low transverse section was performed under general anesthesia. Quantitative blood loss was 560 mL. There were no complications. Baby was delivered without difficulty from the vertex presentation at 1:43 p.m. Baby was a male. Immediate cord clamping was done due to general anesthesia. Baby's Apgars were 7 at 1 minute and 8 at 5 minutes. He weighed 7 pounds 6-1/2 ounces. Procedure was unremarkable. There were mild adhesions of the bladder to the lower uterine segment. The lower uterine segment was somewhat thin. No other abnormalities were encountered. Please see operative report for further details. POSTOPERATIVE COURSE: On postoperative day #0, the patient was having some issues with pain control.She had received a TAP block after her surgery, but was still uncomfortable. She was started on a TRIMMER AND BORER MACHINE OPERATOR. On postoperative day #1, TRIMMER AND BORER MACHINE OPERATOR was discontinued and the patient was started on oxycodone. She continued to have many anxieties and concern about her incisional pain, as well as her health and her recovery. The patient was significantly anxious. She was transitioned to oxycodone, ibuprofen and Tylenol for pain control and eventually with scheduled ibuprofen, Tylenol and oxycodone 10 mg every 3 hours was comfortable. Hemoglobin on postoperative day #1 was 9.3. The patient had no symptoms. Iron suppleme ntation was planned. On postoperative day #2, the patient continued to do okay. She was having concerns about some facial asymmetry that was found on the baby. She had been very anxious regarding this on postoperative day #1, but by postoperative day #2, seemed less anxious. Her blood type is Rh positive and she is rubella immune. She continued with routine postop cares. On postoperative day #3, which was 06/13/2022, the patient was ready for discharge to home. She was given prescriptions for Tylenol, ibuprofen and oxycodone, dispensed #20. 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 This will be planned for 6 weeks' . Given the patient's significant anxiety while in the hospital, as well as anxiety throughout her , it was recommended that she follow up in 1 week for a mood check. She will also follow up in 6 weeks for a check. She was given routine discharge instructions. Kimberly Ramsay MD MT: VERONIQUE Name: DESTINEY HUFF Account: [id number] : 1990 Service Date: 06/13/2022 Discharge Date: 06/13/2022 Document: [id number] IOLOGY NURSE documented in this encounter Discharge Instructions Discharge InstructionsElizabeth Cooper RN - 06/13/2022 2:30 PM CST Postop Instructions Activity Do not lift more than 10 pounds for 6 weeks after surgery. Ask family and friends for help when you need it. No driving until you have stopped taking your pain medications (usually two weeks after surgery). No heavy exercise or activity for 6 weeks. Don't do anything that will put a strain on your surgery site. Don't strain when using the toilet. Your care team may prescribe a stool softener if you have problems with your bowel movements. To care for your incision: Keep the incision clean and dry. Do not soak your incision in water. No swimming or hot tubs until it has fully healed. You may soak in the bathtub if the water level is below your incision. Do not use peroxide, gel, cream, lotion, or ointment on your incision. Adjust your clothes to avoid pressure on your surgery site (check the elastic in your underwear for example). You may see a small amount of clear or pink drainage and this is normal. Check with your health care provider: If the drainage increases or has an odor. If the incision reddens, you have swelling, or develop a rash. If you have increased pain and the medicine we prescribed doesn't help. If you have a fever above 100.4 F (38 C) with or without chills when placing thermometer under your tongue. The area around your incision (surgery wound), will feel numb. This is normal. The numbness should go away in less than a year. Keep your hands clean: Always wash your hands before touching your incision (surgery wound). This helps reduce your risk ofinfection. If your hands aren't dirty, you may use an alcohol hand-rub to clean your hands. Keep your nails clean and short. Call your healthcare provider if you have any of these symptoms: You soak a sanitary pad with blood within 1 hour, or you see blood clots larger than a golf ball. Bleeding that lasts more than 6 weeks. Vaginal discharge that smells bad. Severe pain, cramping or tenderness in your lower belly area. A need to urinate more frequently (use the toilet more often), more urgently (use the toilet very quickly), or it garcia when you urinate. Nausea and vomiting. Redness, swelling or pain around a vein in your leg. Problems or a red or painful area on your breast. Chest pain and cough or are gasping for air. Problems with coping with sadness, anxiety or depression. If you have concerns about hurting yourself or the baby, call your provider immediately. You have questions or concerns after you return home. IOLOGY NURSE documented in this encounter Medications at Time of Discharge [...] daily MULTIVITAMIN PLUS IRON) 27-1 MG TABSIndications: documented as of this encounter Progress Notes Tamie Caba MD - 06/12/2022 7:26 AM CST Post- Note S: Postoperatively recovering well. Pain controlled with oral meds, taking 1-2 oxy every 4 hours. Ambulating and voiding w/o difficulty. Bleeding WNL. WOrking on pumping and , baby found to have some facial asymmetry and jaw weakness on left, had a very hard day coping with this yesterday. Seems less anxious today. Has declined mood medication. O: Patient Vitals for the past 24 hrs: BP Temp Temp src Pulse Resp SpO2 06/12/22 0700 112/72 97.6 ??F (36.4 ??C) Oral -- 16 -- 06/11/22 2203 112/70 97.5 ??F (36.4 ??C) Oral 80 18 -- 06/11/22 1500 106/66 98.1 ??F (36.7 ??C) Oral 81 18 -- 06/11/22 0800 100/62 97.6 ??F (36.4 ??C) Oral -- 18 100 % Gen: Resting comfortably, NAD Pulm: Breathing comfortably on room air Abd: Soft, appropriately ttp, non-distended Incision: c/d/i with steristrips in place, some tape blisters noted Ext: non-tender, no bilateral LE edema I/O last 3 completed shifts: In: - Out: 1625 [Urine:1625] Hgb: Hemoglobin Date Value Ref Range Status 06/11/2022 9.3 (L) 11.7 - 15.7 g/dL Final 09/30/2020 11.4 (L) 11.7 - 15.7 g/dL Final Assessment/Plan: 31 year old on POD #2 s/p RLTCS under general anesthesia due to patient preference. Patient with significant anxiety, no meds 1. Continue with routine management. Miralax ordered BID 2. Pain: tylenol/motrin & oxy 3. Mild acute blood loss anemia. Asymptomatic. Plan iron supplementation on discharge. 4. Rh: Positive 5. Feed: /pumping/supplementing Dispo: POD#3, will need close mood f/u after delivery Tamie Caba MD 7:27 AM IOLOGY NURSE Miranda Jessica MD - 06/11/2022 8:41 AM CST Post- Note S: Patient is doing ok- worried about incisional pain. Many concerns about recovery and about state of health. Tolerating regular diet without nausea or vomiting. Has not yet ambulated. Declined johnson removal earlier. Lochia normal. Some difficulty with . O: Patient Vitals for the past 24 hrs: BP Temp Temp src Pulse Resp SpO2 Height Weight 06/11/22 0800 100/62 97.6 ??F (36.4 ??C) Oral -- 18 100 % -- -- 06/11/22 0210 112/69 -- -- 99 16 99 % -- -- 06/10/22 2045 120/62 -- -- 110 18 100 % -- -- 06/10/22 1947 130/64 -- -- 98 16 100 % -- -- 06/10/22 1845 96/55 97.9 ??F (36.6 ??C) Oral 98 16 100 % -- -- 06/10/22 1828 -- -- -- -- 16 100 % -- -- 06/10/22 1745 99/50 98.2 ??F (36.8 ??C) Oral 94 16 100 % -- -- 06/10/22 1730 -- -- -- -- 16 100 % -- -- 06/10/22 1715 108/61 98.2 ??F (36.8 ??C) Oral 101 16 100 % -- -- 06/10/22 1645 116/67 98.2 ??F (36.8 ??C) Oral 101 16 100 % -- -- 06/10/22 1641 -- -- -- -- 16 100 % -- -- 06/10/22 1630 115/65 97.9 ??F (36.6 ??C) Oral 101 16 100 % -- -- 06/10/22 1615 118/65 98 ??F (36.7 ??C) Oral 107 16 100 % -- -- 06/10/22 1600 116/69 98 ??F (36.7 ??C) Oral 103 16 100 % -- -- 06/10/22 1530 106/60 -- -- 104 14 100 % -- -- 06/10/22 1520 136/77 -- -- 103 22 100 % -- -- 06/10/22 1515 -- -- -- -- 12 -- -- -- 06/10/22 1510 (!) 129/109 -- -- 100 14 100 % -- -- 06/10/22 1505 -- -- -- -- 14 -- -- -- 06/10/22 1500 108/77 -- -- 102 14 100 % -- -- 06/10/22 1450 124/69 97.4 ??F (36.3 ??C) Temporal -- 12 100 % -- -- 06/10/22 1108 -- -- -- -- -- -- 1.702 m (5' 7) 76.2 kg (168 lb) 06/10/22 1100 125/78 97.3 ??F (36.3 ??C) Temporal -- 16 -- -- -- Gen: Resting comfortably, NAD Pulm: Breathing comfortably on room air Abd: Soft, appropriately ttp, non-distended.Fundus well-below umbilicus, firm and non-tender. Incision: c/d/i with bandage overling Ext: non-tender, no bilateral LE edema I/O last 3 completed shifts: In: 6 [I.V.:2105] Out: 3510 [Urine:2950; Blood:560] Hgb: Hemoglobin Date Value Ref Range Status 06/11/2022 9.3 (L) 11.7 - 15.7 g/dL Final 09/30/2020 11.4 (L) 11.7 - 15.7 g/dL Final Assessment/Plan: 31 year old on POD #1 s/p RLTCS under general anesthesia due to patient preference. Patient very anxious and much reassurance given regarding normal post-operative pain, fundal checks, bleeding, etc. Discussed will need to remove johnson today and begin ambulating. 1. Continue with routine management 2. Pain: toradol->ibuprofen, tylenol, PRN oxycodone 3. Mild acute blood loss anemia. Asymptomatic. Plan iron supplementation on discharge. 4. Rh: Positive 5. Feed: /pumping/supplementing Dispo: DC home likely POD#3. Will need two week mood check. Miranda Jessica MD [facility] ORNAMENT SETTER 06/11/2022, 8:41 AM IOLOGY NURSE documented in this encounter H&P Notes Van Hou MD - 06/10/2022 11:47 AM CST I have reviewed the surgical (or preoperative) H&P that is linked to this encounter, and examined the patient. There are no significant changes Clinical Conditions Present on Arrival: Clinically Significant Risk Factors Present on Admission # Hypoalbuminemia: Lowest albumin = 3.3 g/dL (Ref range: 3.5-5.2) in the past 30 days , will monitoras appropriate IOLOGY NURSE Source Note - Outside, Provider - 06/09/2022 4:41 PM CARDIOLOGY NURSE documented in this encounter Consult Notes Amari Kingsley LSW - 06/12/2022 2:35 PM CSTAssociated Order(s): SOCIAL WORK IP CONSULT SWS Progress Note Data: SW consult for assessment due to showing signs of high anxiety and not bonding with baby. Pt is Destiney, a 31 yo who delivered her baby, Jeffery, on 06/10 at 1:43pm. Pt spouse/significant other and FOB is Benjie who is present and supportive. Parents have one other child, Jayson. Patient hasn't completed the EPDS, and denies having anxiety. Intervention: SW has reviewed pt records. SW met with pt this morning to introduce self/role, perform assessment, and discuss resources. The SW talked to the patient about her support system, specifically who she is going to talk to if she if she is feeling anxious or has any symptoms of PPD. SW provided a brief overview of PPD for men to Benjie. Benjie stated understanding. Assessment: Pt pleasant and welcoming of SW involvement. Pt observed to have a bright affect during conversation. The patient was eating breakfast when the SW arrived. The patient talked about her other son Jayson and how he was perfect. The SW talked to both the patient and Benjie about their jobs and their support system. The patient first named her as her support and the SW encouraged the patient to think of an outside professional for help.The patient was able to name her ORNAMENT SETTER as a support if she has any signs/symptoms of anxiety or PPD. The SW asked about siblings and family as support. The patient is an only child but sees her mom as support. The patient stated she or her will know if she has any signs and will reach out for help. The SW attempted to take about Jeffery, but sawthe patient want to change the topic, as the patient's eyes got bigger and she had a frightened lookon her face. During the visit the patient appeared to get tired, right eye was closing. The SW kept the conversation light and informal to form a rodríguez with the patient. Both the patient and Benjie were t hankful for the RN who helped overnight with the baby so they could get some rest. The patient attributed her anxiety yesterday to not getting enough sleep. The SW provided validation and acknowledgement along with active listening. Plan: No further SW follow-up indicated. The SW will continue to be available as needed. JONATHON Shaver IOLOGY NURSE documented in this encounter Miscellaneous Notes Plan of Care - Elizabeth Cooper RN - 06/13/2022 3:41 PM CST D: VSS, assessments WDL. I: Pt. received complete discharge paperwork and home medications as filled by discharge pharmacy here. Pt. was given times of last dose for all discharge medications in writing on discharge medicationsheets. Discharge teaching included home medication, pain management, activity restrictions, cares, and signs and symptoms of infection. A: Discharge outcomes on care plan met. Mother states understanding and comfort with self and baby cares. P: Pt. discharged to home. Pt. was discharged with baby, and bands were checked at time of discharge. Pt. was accompanied by , nurse and baby, and left with personal belongings. Pt. to follow upwith OB per MD order. Pt. had no further questions at the time of discharge and no unmet needs were identified. IOLOGY NURSE Plan of Care - Ginger Mccabe RN - 06/13/2022 4:08 AM CST VSS on RA. Denies N/V, pre-e symptoms. Pain controlled with tylenol, ibuprofen, and q3 oxy. Alternating between 5 and 10 mg. Anxiety better this shift, reassurance provided. Up independently, voiding well. Passing gas, no BM yet. Feeding on cue, taking 30 mL DBM, pumping colostrum as well. Nipples sore, using 27mm flange with good effect. assessment WDL, incision site CDI with steristrips. Pt using abdominal binder when ambulating. Fundus firm U/1. Bonding well with . Benjie at bedside. Plan to discharge today. Will continue with POC. IOLOGY NURSE Plan of Care - Latonia Farris RN - 06/12/2022 6:56 PM CST Patient states incisional pain controlled with oxycodone every 3 hours alternating with tylenol and ibuprofen. Discussed pain medication several times throughout the day. Patient states her pain is unchanged and trying to take less oxycodone for fear of constipation and being light headed when up. Less gas pain today and passing gas. Tolerating general diet. Voiding without difficulty. Up ambulating in the halls. Patient appears less anxious today and hopeful. Independent with cares but encouragedpatient to call for assistance as needed. Patient verbalized understanding. IOLOGY NURSE Note - Kiki Freeman RN - 06/12/2022 8:15 AM CST Destiney wanted to bring infant to breast this morning, requested support. LC present at bedside to assist. was very eager almost frantic to feed and was vigorously trying to latch. Destiney stating she was having too much discomfort , that it felt like was pinching her nipple and she couldn't handle it. We tried re-latching a couple of times, unable to get Destiney comfortable. Destiney deciding she wasn't wanting to continue at this moment. LC did suggest bringinginfant to breast if he is more calm. Destiney continues to be committed to pumping and bottle. Sally Freeman RN IBCLC IOLOGY NURSE Plan of Care - Theresa Melchor RN - 06/12/2022 5:48 AM CST Vss, RA. LS clear. BS present. C/o gas discomfort. Simethicone given. Ambulation encouraged. UO adequate. Incision intact with steri strips. Pt reported feeling sadness and anxiety when discussing bottling, failed hearing screen, and facial asymmetry. Active listening and support provided to patient and spouse. Respite care provided overnight. IOLOGY NURSE Plan of Care - Latonia Farris RN - 06/11/2022 6:46 PM CST Patient states incisional pain controlled with oxycodone, tylenol and ibuprofen if given when available. Patient also having gas discomfort, taking simethicone and discussed increased activity in length with patient. Patient verbalized understanding and ambulated a couple times in the hallway throughout the day. Using abdominal binder as well. Tolerating general diet. Voiding without difficulty and encouraged frequent voiding. Patient independent with her cares but encouraged her to call for assistance as needed, patient verbalized understanding. Patient having frequent episodes of anxiety and panic regarding pain and baby's care throughout the day and evening. After sharepoint designer developer saw baby this morning patient very upset, stating she is fearful and anxious about baby and baby's care. Patient inconsolable for a short period but able to calm after further discussion about plan for baby's follow up care. After Secretary Of Police saw the baby patient appeared to be less anxious and more hopeful. present and supportive of patient. Discussed anxiety with patient several times throughout the day and offered PRN medication. Patient declining at this time. Spoke with Dr. Jessica several times throughout the day and updated her on patient's status. Independent with cares but encouraged patient to call for assistance as needed. Patient verbalized understanding. IOLOGY NURSE Note - Kiki Freeman RN - 06/11/2022 12:26 PM CST This morning assessed by Peds to have slight L jaw abnormality. Parents both very upset by this news and mother didn't want to bring infant to breast for 1100 feeding. LC offered to finger feed , both parents very tearful and processing news. LC offered to finger feed infant in the PETER togive parents privacy to process. LC assess infant's palette to be intact and infant does display a coordinated suckling pattern, his suck is slightly weaker on the L. With finger feeding, milk dribbling out of L corner of infant's mouth. LC provided cheek support and was helpful. 12 ml of DBM attempted, infant took 7 ml over the course of about 45 minutes (infant assessed by Secretary Of Police while in PETER). is also very spitty. Typewriter Ribbon Winder able to secure a ENT consult for later today. Occupational therapist from NICU also to assess infant later today. When LC brought infant back to parents room, mom is much more relaxed, calm, not crying, and requests to hold infant. She asked if I could assist her with later this afternoon. LC will revisit and offer support as requested. Sally Freeman RN IBCLC IOLOGY NURSE Plan of Care - Rose Combs RN - 06/11/2022 6:30 AM CST Date/Time: June 11, 2022 Reason for Admission: repeat c/s delivery End of shift summary: VSS. Fundus F/-1, lochia scant with a few clots. abdominal incision covered with island dressing, small drainage - marked and not extended. Neuros intact. Zofran given x1 for nausea. Voiding via johnson catheter - copious output. Discussed multiple times the need to pull catheter to prevent infection and to ambulate - pt refused stating she cannot walk. Patient complained of feeling full with johnson catheter in - draining appropriately, still refusing to remove catheter at this time. attempts overnight, infant has poor latch and mom needs full assist with positioning but declines aid in positioning . Pt pumping, getting small amounts of colostrum, and FOB finger feeding colostrum and DM via tube and syringe. Pain managed with Tylenol, toradol, anddilaudid TRIMMER AND BORER MACHINE OPERATOR pump overnight. Patient rating pain 8-10/10 resting in bed. MD updated and POC changed to discontinue TRIMMER AND BORER MACHINE OPERATOR pump and bridge to PO oxycodone as patient can tolerate oral fluids and food. Non pharm measures taken to help with discomfort - ice applied to incision, repositioning, abdominal binder - all with minimal relief per patient. Appears to be bonding well with infant at times. Pt appearsto have severe anxiety as shown by statements such as I am dying, I need to go to the ICU , Ijust had my baby, I can't , I am hemorrhaging, I need a doctor - all while receiving fundal checks. Pt also states that she doesn't want that deep of a fundal check after stating that she is hemorrhaging and RN (bond underwriter) attempting to assess fundus and bleeding. Support person, Benjie at bedside helping with cares to both mom and as well as providing emotional support to pt. Education completed and questions answered. IOLOGY NURSE Provider Notification - Rose Combs RN - 06/11/2022 4:58 AM CST 06/11/22 0456 Provider Notification Provider Name/Title Dr. Ramsay Method of Notification Phone Request Evaluate-Remote Notification Reason Status Update Paged Dr. Ramsay regarding patients pain status. Dr. Ramsay returned the call @ 0500. Updated MD on pain status and patients anxiety. Plan to discontinue the TRIMMER AND BORER MACHINE OPERATOR pump of dilaudid and transition to PO oxycodone with a sliding scale of 5mg-10mg every 3 to 4 hours. OK to give 5mg oxycodone now once TRIMMER AND BORER MACHINE OPERATOR is discontinued. IOLOGY NURSE Note - Salma Martinez RN - 06/10/2022 6:18 PM CST Routine visit with Destiney, significant other Benjie & baby boy Jeffery. Destiney shared she pumped and bottle fed with her first child, who was born at 35+6 weeks, and had a good milk supply. Destiney had her under general anesthesia and shared she's feeling pretty drowsy still so kept information part of visit brief. Baby Jeffery supplemented x1 with donor milk while Destiney was under general anesthesia. Destiney would like to try to feed baby at time of visit. assisted with getting baby more awake by moving him away from skin to skin time with mom, and he started showing feeding cues. Noted torticollis with left tilt to head. Attempted to have him suck on gloved finger but noted no active suck pattern. Assisted with positioning at right breast in cross cradle and in football but baby fussy and unable to maintain latch. Trialed a 24mm shield with Destiney's consent and he was able to latch to shield and take a few sucks. However, Destiney then requested to remove shield as she doesn't want to use a nipple shield if at all possible. Jeffery then attempted to latch again but was unable to stay latched. Alert and showing feeding cues but Destiney requested to stop trying to breastfeed and to pump instead. She shared she'd like to both breast and bottle feed so that Benjie can help. Offered support and updated primary RN on feeding plan. Primary RN will assist with pumping. Recommend pumping or feedingbaby at least every 3 hours. Destiney would like baby assessed for tongue tie; unable to fully assess for tongue tie at time of visit as baby was disinterested in sucking on gloved finger. Will try to reassess tomorrow. Will offer support from team with feeding or pumping as needed while Destiney is inpatient. Salma Martinez RN-C, IBCLC, MNN, PHN, BSN IOLOGY NURSE Plan of Care - Moriah Gudino - 06/10/2022 6:02 PM CST Pt. admitted from L&D via bed. Pt. arrived with baby and was accompanied by and arrived with personal belongings. Report was taken from Zoya in L&D. Pt. is A&Ox3 and VSS on RA- slightly tachycardic at times due to visible anxiety. Fundus is firm and midline. Vaginal bleeding is scant-light. Pt. c/o 10/10 pain and taking scheduled tylenol, toradol and pt was also started on a TRIMMER AND BORER MACHINE OPERATOR pump- has since rated her pain 5/10 and improving. Using ice pack to incision. Pt. Had slight nausea but improved with crackers, denies CP, SOB, lightheadedness, or dizziness. Slightly drowsy at times due to TRIMMER AND BORER MACHINE OPERATOR. LS clear and BS hypoactive. PIV patent and infusing. Johnson patent and draining. Dressing to lower abdomen marked with scant drainage. Pneumoboots in place to BLE. Declines TDAP and flu shot. Will start lovenox 24 hrs post delivery. Working on infant cares. Pt very anxious at times- needs lots of reinforcement and support. Pt. oriented to the room and call light system. at bedside and supportive. IOLOGY NURSE Op Note - Kimberly Ramsay MD - 06/10/2022 5:10 PM CST Procedure Date: 06/10/2022 PREOPERATIVE DIAGNOSES: 1. Intrauterine at 39+2 weeks. 2. Previous section, desires repeat section. POSTOPERATIVE DIAGNOSES: 1. Intrauterine at 39+2 weeks. 2. Previous section, desires repeat section. 3. Delivered. PROCEDURE: Repeat low transverse section. SURGEON: Kimberly Ramsay M.D. PLUG SORTER: Dr. Juliana Flowers, who was present and scrubbed for the entire procedure and was medically necessary to assist during this procedure given the repeat nature of the section as well as patient need to be under general anesthesia. ANESTHESIA: General. COMPLICATIONS: None. QUANTITATIVE BLOOD LOSS: 560 mL FINDINGS: Upon entering the abdomen, there were adhesions of the fascia to the rectus muscles. The bladder was adhesed to the lower uterine segment. No other significant adhesions were noted. The loweruterine segment was somewhat thin. The uterus and ovaries bilaterally were within normal limits. Theright fallopian tube was normal. The left fallopian tube was normal, but did have an approximately 1cm paratubal cyst. INDICATIONS FOR PROCEDURE: This patient is a 31-year-old -1-0-1 at 39+2 weeks' gestation. She has a history of section in her first . She was counseled during this regarding trial of labor after section versus repeat section and did wish to proceed with a repeat section. The risks and benefits of this were discussed with her in detail including risks of bleeding, possible need for blood transfusion, infection, and damage to adjacent organs including the bowel, bladder, and ureters. Consent was obtained. The patient did desire general anesthesia for her procedure instead of a spinal. She was counseled extensively regarding this during her . She reports a history of back surgeries and issues after having epidurals for those surgeries. 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 She had an anesthesia consult during her . Anesthesia felt that she would be a candidate for spinal, but was also understanding of her desire to proceed with general anesthesia. We diddiscuss the potential downside to general anesthesia for section, and she understood these concerns, but wished to proceed. Plan was made for a TAP block following completion of the surgery, but prior to waking her from anesthesia, and this was done. DESCRIPTION OF PROCEDURE: The patient was taken to the operating room. A Johnson catheter was placed in the bladder. She was prepped and draped in the usual sterile fashion. A timeout was performed. She was placed under anesthesia without difficulty. Procedure was started immediately upon the patient being under general anesthesia. A Pfannenstiel incision was made through the skin with the scalpel. This was carried down to fascia with cautery. Fascia was incised in the midline. Fascial incision was extended laterally in both directions with Lee scissors. Rectus muscles were dissected off the fascia.Rectus muscles were in the midline and the peritoneum identified and entered. Peritoneal incision was extended bluntly. Bladder blade was placed. Vesicouterine peritoneum was entered and an incision created laterally in both directions. Bladder flap was created digitally. A transverse incision was made in the lower uterine segment, which again was somewhat thin. Incision was extended bluntly. Fluid was clear. Baby was found in the vertex presentation and delivered without difficulty at 1:43 p.m. Baby was a male. He began crying immediately after delivery. Immediate cord clamping was done and the baby was handed to the nurses. Baby again was a male with Apgars of 7 at 1 minute and 8 at 5 minutes. He weighed 7 pounds 6-1/2 ounces. Placenta was then manually delivered, and the uterus cleared of all clots and debris. Uterine incision was inspected and there was a small extension on the left inferiorly. This was repaired as one with 0 Vicryl in a running locked fashion. A second layer of the same suture was used to imbricate the incision. Incision was then hemostatic. Abdomen was then irri gated. Incision was reinspected and hemostasis assured. Peritoneum was unable to be closed as there were some adhesions of the peritoneum on the left to the rectus muscles; therefore, the peritoneum was not closed. The fascia was then closed with 0 Vicryl in a running fashion after hemostasis of the rectus muscles was assured. The subcutaneous tissues were then irrigated and hemostasis assured with cautery. The skin was closed with 4-0 Monocryl in a subcuticular fashion. Steri-Strips and a bandage were placed. The patient tolerated the procedure well. She was taken to the recovery room in stable condition. Counts were correct. Kimberly Ramsay MD MT: RHIANNON Name: DESTINEY HUFF Account: [id number] : 1990 Procedure Date: 06/10/2022 Document: [id number] IOLOGY NURSE Provider Notification - Kiki Vogt RN - 06/10/2022 4:23 PM CARDIOLOGY NURSE 06/10/221621 Provider Notification Provider Name/Title Dr. Ramsay Method of Notification Phone Return page. Updated on pain unmanaged with IV push. Fundus firm at U/1, light flow. Orders to startPCA. POC reviewed with Moriah. See flow sheets. IOLOGY NURSE Plan of Care - Kiki Vogt RN - 06/10/2022 4:14 PM CST Pt transferred to room 431 in cart from main PACU. [place] to room. Bedside report to Moriah Gupta RN. Bands verified. Care taken over IOLOGY NURSE Brief Op Note - Kimberly Ramsay MD - 06/10/2022 2:28 PM CST OB Brief Operative Note 1. Pre-op diagnosis- 31 year old IUP at 39w2d H/O previous , desires repeat 2. Post-op diagnosis- Same Delivered 3. Procedure- Repeat Low Transverse Section via Pfannenstiel skin incision with 2-layer uterine closure 4. Surgeon- Kimberly Ramsay MD MD 5. Nurse Quality- Juliana Flowers MD 6. QBL- 560 ml 7. Fluids- See anesthesia record 8. UOP- See anesthesia record 9. Complications- None apparent 10. Anesthesia- general 11. Findings- Viable Male infant delivered on 06/10/2022 at 143 pm from vertex presentation. Apgars 7 at one minute and 8 at five minutes. Weight 7 lbs 6.5 oz. Clear amniotic fluid Placenta appeared grossly normal. Normal appearing uterus, tubes and ovaries. Small para-ovarian cyst on left. Kimberly Ramsay MD 06/10/2022 2:29 PM IOLOGY NURSE documented in this encounter Plan of Treatment Not on filedocumented as of this encounter Procedures Procedure Name Priority Date/Time Associated Comments Diagnosis PLATELET COUNT Routine 06/13/2022 8:17 AM Results for this CARDIOLOGY NURSE procedure are i n the results section. HEMOGLOBIN Routine 06/11/2022 8:05 AM Results f or this CARDIOLOGY NURSE procedure are i n the results section. PLATELET COUNT Routine 06/10/2022 4:18 PM Results for this CARDIOLOGY NURSE procedure are i n the results section. CREATININE Routine 06/10/2022 4:18 PM Results f or this CARDIOLOGY NURSE procedure are i n the results section. SECTION 06/10/2022 1:24 PM Previous CARDIOLOGY NURSE section COVID-19 VIRUS STAT 06/10/2022 11:30 AM Result s for this (CORONAVIRUS) BY PCR CARDIOLOGY NURSE procedu re are in the results section. documented in this encounter Results Platelet count (06/13/2022 8:17 AM CARDIOLOGY NURSE) athologist Signature Platelet Count 242 150 - 450 06/13/2022 LABORATORY 10e3/uL 8:55 AM CARDIOLOGY NURSE Specimen Anatomical Collection Method / Collection Time Recei ching Time (Source) Location / Volume Laterality Blood STRUCTURE OF RIGHT Venipuncture / 06/13/2022 8:17 05/21 8:51 UPPER LIMB / Unknown AM CARDIOLOGY NURSE AM CARDIOLOGY NURSE Unknown Kimbelry Ramsay MD LAB - BLOOD ORDERABLES Performing Organization Address City/State/ZIP Code Phon e Number LAB[place]ATORY [place] [place] [phone] Care Lab [address] 1st floor, Room [address]B (ABNORMAL) Hemoglobin (06/11/2022 8:05 AM CARDIOLOGY NURSE) athologist Signature Hemoglobin 9.3 (L) 11.7 - 15.7 06/11/2022 LABORATORY g/dL 8:33 AM CARDIOLOGY NURSE Specimen Anatomical Collection Method / Collection Time Recei ching Time (Source) Location / Volume Laterality Blood STRUCTURE OF RIGHT Venipuncture / 06/11/2022 8:05 05/21 8:27 UPPER LIMB / Unknown AM CARDIOLOGY NURSE AM CARDIOLOGY NURSE Unknown Kimberly Ramsay MD LAB - BLOOD ORDERABLES Performing Organization Address City/State/ZIP Code Phon e Number [place]ATORY [facility] [place] [phone] Care Lab [address] 1[address], Room [address]B Platelet count (06/10/2022 4:18 PM CARDIOLOGY NURSE) athologist Signature Platelet Count 183 150 - 450 06/10/2022 LABORATORY 10e3/uL 4:25 PM CARDIOLOGY NURSE Specimen Anatomical Collection Method / Collection Time Recei ching Time (Source) Location / Volume Laterality Blood STRUCTURE OF LEFT Venipuncture / 06/10/2022 4:18 06/10 4:23 UPPER LIMB / Unknown PM CARDIOLOGY NURSE PM CARDIOLOGY NURSE Unknown Kimberly Ramsay MD LAB - BLOOD ORDERABLES Performing Organization Address City/State/ZIP Code Phon e Number [place]AT[place] [place] [phone] Care Lab [address] 1[address], Room 20B (ABNORMAL) Creatinine (06/10/2022 4:18 PM CARDIOLOGY NURSE) athologist Signature Creatinine 0.51 (L) 0.52 - 06/10/2022 LABORATORY 1.04 mg/dL 4:42 PM CARDIOLOGY NURSE GFR Estimate >90 >60 06/10/2022 LABORATORY mL/min/1.7 4:42 PM CARDIOLOGY NURSE 3m2 Comment: Effective July 09, 2021 eGF Rcr in adults is calculated using the 2020 CKD-EPI creatinine equation which includ es age and gender (Abelardo et al., NEJM, DOI: 10.1056/MVFDpf3103663) Specimen Anatomical Collection Method / Collection Time Recei ching Time (Source) Location / Volume Laterality Blood STRUCTURE OF LEFT Venipuncture / 06/10/2022 4:18 06/10 4:23 UPPER LIMB / Unknown PM CARDIOLOGY NURSE PM CARDIOLOGY NURSE Unknown Kimberly Ramsay MD LAB - BLOOD ORDERABLES Performing Organization Address City/State/ZIP Code Phon e Number LABORATORY [facility] [place] [phone] Care Lab [address] [place] 1st floor, Room 20B Asymptomatic COVID-19 Virus (Coronavirus) by PCR Nasopharyngeal (06/10/2022 11:30 AM CARDIOLOGY NURSE) Analysis Performed At Patho logist Time Signature SARS CoV2 PCR Negative Negative 06/10/2022 LABORATORY 12:37 PM CARDIOLOGY NURSE Comment: NEGATIVE: SARS-CoV-2 (COVID-19) RNA not detected, presumed negative. Specimen Anatomical Location / Collection Method Collection Ignacio e Received Time (Source) Laterality / Volume Swab NASOPHARYNGEAL Non-blood 06/10/2022 11:30 STRUCTURE / Unknown Collection / AM CARDIOLOGY NURSE 11:51 AM CARDIOLOGY NURSE Unknown Narrative LABORATORY - 06/10/2022 12:37 PM CARDIOLOGY NURSE Testing was performed using the Xpert Xpress SARS-CoV-2 Assay on the [employer]. Additional information about this Emergency Use Authorization (EUA) assay can be found via the Lab Guide. This test should be ordered for the detection of SARS-CoV-2 in individuals who meet SARS-CoV-2 clinical and/or epidemiological criteria as well as from individuals without symptoms or other reasons to suspect COVID-19. Test perfor francie for asymptomatic patients has only been established in anterior nasal swab specimens. This test is for in vitro diagnostic use under the FDA EUA for laborat ories certified under CLIA to perform hi gh complexity testing. This test has not been FDA cleared or approved. A negative result does not rule out the presence of PCR inhibitors in the specimen or targe t RNA concentration below the limit of d etection for the assay. The possibility of a false negative should be considered if the patient's recent exposure or clinical presentation suggests COVID-19. This test was validated by the [facility]. This laboratory is certified under the Clinical Laboratory Improvement Amendments (CLIA) as qualified to perform high complexity laboratory testing. Kimberly Ramsay MD LAB - MICRO GENERAL ORDERABL ES Performing Organization Address City/State/ZIP Code Phon e Number LAB[place]ATORY [place] [place] [address] [phone] Care Lab [address] [place] 1st floor, Room 20B documented in this encounter Visit Diagnoses Diagnosis S/P - Primary Other postprocedural status Labor and delivery indication for care o r intervention Unspecified indication for care or inter vention related to labor and delivery, unspecified as to episode of care S/P Other postprocedural status Indication for care in labor or delivery Unspecified indication for care or inter vention related to labor and delivery, unspecified as to episode of care Previous section Other postprocedural status documented in this encounter Admitting Diagnoses Diagnosis Indication for care in labor or delivery Unspecified indication for care or inter vention related to labor and delivery, unspecified as to episode of care S/P Other postprocedural status documented in this encounter Administered Medications Inactive Administered Medications - up to 3 most recent administrations Medication Order MAR Action Action Date Dose Rate Site acetaminophen (TYLENOL) tablet 975 Given 06/13/2022 2:02 PM CARDIOLOGY NURSE 975 mg mg 975 mg, Oral, EVERY 6 HOURS, First dose on Thu06/10/22 at 1830, Maximum acetaminophen dose from all sources = 75 mg/kg/day not to exceed 4 grams/day. Given 06/13/2022 8:04 AM CARDIOLOGY NURSE 975 mg Given 06/13/2022 2:00 AM CARDIOLOGY NURSE 975 mg bisacodyl (DULCOLAX) suppository 10 mg Given 06/13/2022 10:56 AM CARDIOLOGY NURSE 10 mg 10 mg, Rectal, DAILY PRN, constipation, Starting on Janna 06/12/22 at 0000, Start POD 2 Hold for loose stools. dextrose 5% in lactated ringers infusion New Bag 06/10/2022 5:39 PM CARDIOLOGY NURSE 125 mL/hr at 125 mL/hr, Intravenous, CONTINUOUS, Subsequent IV at nurse's discretion. DC IV when tolerating fluids or at nurse's discretion & saline lock., Starting on Thu06/10/22 at 1500, Until Thu06/13/22 at 1800 enoxaparin ANTICOAGULANT (LOVENOX) injection Given 5:05 PM CARDIOLOGY NURSE 40 mg 40 mg 40 mg, Subcutaneous, EVERY 24 HOURS, First dose on Thu06/11/22 at 1500, Wait GREATER than or EQUAL to 12 hours after the neuraxial procedure AND GREATER than or EQUAL to four hours after the epidural catheter removal before initiating or restarting LMWH thromboprophylaxis (enoxaparin). Surgery start time: 1:40 pm Given 06/11/2022 3:27 PM CARDIOLOGY NURSE 40 mg HYDROmorphone (DILAUDID) TRIMMER AND BORER MACHINE OPERATOR 0.2 mg/mL Rate/Dose Verify 06/11/2022 4:07 AM CARDIOLOGY NURSE OPIOID NAIVE (age less than 65 years) Continuous Rate: 0 mg/hr, TRIMMER AND BORER MACHINE OPERATOR Dose: 0.2 mg, TRIMMER AND BORER MACHINE OPERATOR Lockout: 10 Minutes, One Hour Limit: 1.2 mg, Clinician Bolus (one time dose): 0.2 mg, Starting on Thu06/10/22 at 1630, Hold the dose for analgesic side effects. Notify the provider to assess for uncontrolled pain or analgesic side effects. Do NOT give any additional opioids while on TRIMMER AND BORER MACHINE OPERATOR unless provider authorized., Intravenous New Syringe/Cartridge 06/10/2022 4:41 PM CARDIOLOGY NURSE ibuprofen (ADVIL/MOTRIN) tablet 800 mg Given 06/13/2022 10:56 AM CARDIOLOGY NURSE 800 mg 800 mg, Oral, EVERY 6 HOURS, First dose on Thu06/11/22 at 1000, Give with food. Given 06/13/2022 5:02 AM CARDIOLOGY NURSE 800 mg Given 06/12/2022 10:49 PM CARDIOLOGY NURSE 800 mg LORazepam (ATIVAN) tablet 0.5 mg 0.5 mg, Oral, EVERY 4 HOURS PRN, anxiety, Starting on Thu06/11/22 at 1201 misoprostol (CYTOTEC) tablet 400 mcg 400 mcg, Oral, GIVE ONCE PRN AND REPEAT ACCORDING TO I NSTRUCTIONS, post- hemorrhage, Starting on Thu06/10/22 at 1451, Administ er only if directed by provider. Max administrations: 4 doses misoprostol (CYTOTEC) tablet 800 mcg 800 mcg, Rectal, GIVE ONCE PRN AND REPEA T ACCORDING TO INSTRUCTIONS, post- hemorrhage, Starting on Thu06/10/22 at 1451, Give rectally if unable to take oral without complications. Administer only if directed by provider. Max administrations: 4 doses. naloxone (NARCAN) injection 0.2 mg 0.2 mg, Intravenous, EVERY 2 MIN PRN, op ioid reversal, Starting on Thu06/10/22 at 1455, Administer intravenous route when available and notify provider when administered. For unintended sedation or respiratory depression if all of the below criteria are met: ~ respiratory rate LES S than or EQUAL to 8. ~SaO2 less than 92% and or/end-tidal CO2 is greater than 50. ~ the patient is receiving an opioid, has unintended sedations assessed as RASS (-3), and is cur rently not on mechanical ventilation. RASS scale moderate (-3) is movement or eye opening to voice but no eye contact. Patient Monitoring Once the patient has demonstrated a response to the naloxone, continue to monitor respiratory rate, depth, oxygen saturation and end-tidal CO2 (if available) every 15 mi nutes x 2, then every 30 minutes x 2, then every 1 hour x 1 after each naloxone dose. Consider tr ansfer to ICU if patient respiratory parameters have not improved after 4 nalox one doses. naloxone (NARCAN) injection 0.2 mg 0.2 mg, Intramuscular, EVERY 2 MIN PRN, opioid reversal, Starting on Thu06/10/22 at 1455, Administer intramuscular if an intravenous ro [facility] [place] is not available and notify provider when administered. For unintended miguel tion or respiratory depression if all of the below criteria are met: ~ respiratory rate LESS than or EQUAL to 8. ~SaO2 less than 92% and or/end-tidal CO2 i s greater than 50. ~ the patient is receiving an opioid, has unin tended sedations assessed as RASS (-3), and is currently not on mechanical ventilati on. RASS scale moderate (-3) is movement or eye opening to voice but no eye contact. Patient Monitoring Once the patient has demonstrated a response to the naloxone, continue to m onitor respiratory rate, depth, oxygen saturation and end-tidal CO2 (if availab le) every 15 minutes x 2, then every 30 minutes x 2, then every 1 hour x 1 after each naloxone dose. Consider transfer to ICU if patient respiratory parameters have not improved after 4 naloxone doses. naloxone (NARCAN) injection 0.4 mg 0.4 mg, Intravenous, EVERY 2 MIN PRN, op ioid reversal, Starting on Thu06/10/22 at 1455, Administer intravenous route when available and notify provider when administered. For unintended sedation or respiratory depression if all of the below criteria are met: ~ respiratory rate LES S than or EQUAL to 8. ~ SaO2 less than 92% and or/end-tidal CO2 is greater than 50. ~ the patient is receiving an opioid, has unintended sedation assessed as RASS (-4 ) or (-5) and patient is currently not on mechanical ventilation. RASS scale (-4) is deep sedation with no response to voice but movement or eye opening to physical stimulation. R ASS scale (-5) is unarousable. Patient Monitoring Once the patient has demonstrated a response to the naloxone, continue to monitor respiratory rate, depth, oxygen saturation and end-tidal CO2 (if available) every 15 mi nutes x 2, then every 30 minutes x 2, then every 1 hour x 1 after each naloxone dose. Consider tr ansfer to ICU if patient respiratory parameters have not improved after 4 nalox one doses. naloxone (NARCAN) injection 0.4 mg 0.4 mg, Intramuscular, EVERY 2 MIN PRN, opioid reversal, Starting on Thu06/10/22 at 1455, Administer intramuscular if an intravenous ro [facility] [place] is not available and notify provider when administered. For unintended miguel tion or respiratory depression if all of the below criteria are met: ~ respiratory rate LESS than or EQUAL to 8. ~ SaO2 less than 92% and or/end-tidal CO2 is greater than 50. ~ the patient is receiving an opioid, has unin tended sedation assessed as RASS (-4) or (-5) and patient is currently not on mechanical ventil ation. RASS scale (-4) is deep sedation with no response to voice but movement o r eye opening to physical stimulation. RASS scale (-5) is unarousa ble. Patient Monitoring Once the patient has demonstrated a response to the nalox one, continue to monitor respiratory rate, depth, oxygen saturation and end-tidal CO2 (if availab le) every 15 minutes x 2, then every 30 minutes x 2, then every 1 hour x 1 after each naloxone dose. Consider transfer to ICU if patient respiratory parameters have not improved after 4 naloxone doses. ondansetron (ZOFRAN ODT) ODT tab 4 mg Given 06/10/2022 8:05 PM CARDIOLOGY NURSE 4 mg 4 mg, Oral, EVERY 6 HOURS PRN, nausea, vomiting, Starting on Thu06/10/22 at 1451, This is Step 2 of OB nausea and vomiting management. Give If nausea not resolved in 30 minutes after giving metoclopramide (REGLAN). If nausea is not resolved in 15 minutes, go to Step 3 (Compazine). With dry hands, peel back foil backing and gently remove tablet. Do not push oral disintegrating tablet through foil backing. Administer immediately on tongue and oral disintegrating tablet dissolves in seconds, then swallow with saliva. Liquid not required. ondansetron (ZOFRAN) injection 4 mg 4 mg, Intravenous, EVERY 6 HOURS PRN, nausea, vomiting , Administer over 2-5 Minutes, Starting on Thu06/10/22 at 145 1, This is Step 2 of OB nausea and vomiting management. Give if nausea not resolved 30 minutes aft er giving metoclopramide (REGLAN). If nausea is not resolved in 15 minutes, go to Step 3 (Compazine). Irritant. oxyCODONE (ROXICODONE) tablet 5-10 mg Given 06/13/2022 2:02 PM CARDIOLOGY NURSE 5 mg 5-10 mg, Oral, EVERY 3 HOURS PRN, other, pain control or improvement in physical function. Hold dose for analgesic side effects., Starting on Thu06/11/22 at 0538, Notify provider to assess for uncontrolled pain or analgesic side effects. Hold while on TRIMMER AND B[employer]ER MACHINE OPERATOR or with regular IV opioid dosing. Maximum total is 60 mg in 24 hours. Given 06/13/2022 10:56 AM CARDIOLOGY NURSE 10 mg Given 06/13/2022 8:04 AM CARDIOLOGY NURSE 10 mg polyethylene glycol (MIRALAX) Packet 17 g Given 06/13/2022 8:23 AM CARDIOLOGY NURSE 17 g 17 g, Oral, 2 TIMES DAILY, First dose (after last modification) on Janna 06/12/22 at 0900, 1 Packet = 17 grams. Mix each gram with at least 1/2 ounce (15 mL) of water - 8 ounces for 17 g dose, 4 ounces for 8.5 g dose, 2 ounces for 4 g dose. Follow with the same volume of water. Hold for loose stools unless being administered as part of a bowel prep regimen or bowel clean out. Given 06/12/2022 8:04 PM CARDIOLOGY NURSE 17 g Given 06/12/2022 8:20 AM CARDIOLOGY NURSE 17 g multivitamin w/iron per tablet 1 Given 06/13/2022 8 :05 AM CARDIOLOGY NURSE 1 tablet tablet 1 tablet, Oral, DAILY, First dose on Thu06/10/22 at 1500, Indications: Given 06/12/2022 7:08 AM CARDIOLOGY NURSE 1 tablet Given 06/11/2022 9:01 AM CARDIOLOGY NURSE 1 tablet prochlorperazine (COMPAZINE) injection 1 0 mg 10 mg, Intravenous, EVERY 6 HOURS PRN, n ausea, vomiting, Administer over 2 Minutes, Starting on Thu06/10/22 at 1451, This is Step 3 of OB nausea and vomiting management. Give if nausea not resolved 15 minutes aft er giving ondansetron (ZOFRAN). If nausea is not resolved in 30 minutes, not gracy provider. prochlorperazine (COMPAZINE) suppository 25 mg 25 mg, Rectal, EVERY 12 HOURS PRN, nause a, vomiting, Starting on Thu06/10/22 at 1451, This is Step 3 of OB nausea and vomiting managem ent. Give if nausea not resolved 15 minutes after giving ondanse mao (ZOFRAN). If nausea is not resolved in 30 minutes, notify provider. prochlorperazine (COMPAZINE) tablet 10 m g 10 mg, Oral, EVERY 6 HOURS PRN, nausea, vomiting, Starting on Thu06/10/22 at 1451, This is Step 3 of OB nausea and vomiting management. Give if nausea not resolved 15 minutes after giving ondansetron (ZOFRAN ). If nausea is not resolved in 30 minutes, notify provider. senna-docusate (SENOKOT-S/PERICOLACE) Given 06/11/2022 8:[address] 1 tablet 8.6-50 MG per tablet 1 tablet 1 tablet, Oral, 2 TIMES DAILY, First dose on Thu06/10/22 at 2000, If no bowel movement in 24 hours, increase to 2 tablets PO. Hold for loose stools. Preferred agent for constipation related to opioids. Hold for loose stools. Given 06/11/2022 9:01 AM CARDIOLOGY NURSE 1 tablet senna-docusate (SENOKOT-S/PERICOLACE) Given 06/13/2022 8:[address] 2 tablets 8.6-50 MG per tablet 2 tablet 2 tablet, Oral, 2 TIMES DAILY, First dose on Thu06/10/22 at 2000, Hold for loose stools. Preferred agent for constipation related to opioids. Hold for loose stools. Given 06/12/2022 8:04 PM CARDIOLOGY NURSE 2 tablets Given 06/12/2022 7:07 AM CARDIOLOGY NURSE 2 tablets simethicone (MYLICON) chewable tablet 80 mg Given 06/12/2022 5:02 AM CARDIOLOGY NURSE 80 mg 80 mg, Oral, 4 TIMES DAILY PRN, other, gas, Starting on Thu06/10/22 at 1451, Chew. Given 06/11/2022 6:41 PM CARDIOLOGY NURSE 80 mg Given 06/11/2022 12:46 PM CARDIOLOGY NURSE 80 mg documented in this encounter Active and Recently Administered Medications Times are shown in CARDIOLOGY NURSE. Scheduled Medication Order 06/11/2022 06/12/2022 06/13/2022 acetaminophen (TYLENOL) tablet 975 mg 0051 (Given - Pr ovider: Rose Combs RN)0720 (Given - Provider: Rose Combs RN)1245 (Given - Provider: Latonia Farris RN)1916 (Given - Provider: Latonia Farris, ALDO) 0106 (Given - Provider: Theresa Melchor RN)0707 (Given - Provider: Latonia Farris RN)1300 (Not Given - Provider: Latonia Farris RN - Reason: Other - Comment: dose rescheduled)1356 (Given - Provider: Latonia Farris RN) 0200 (Given - Provider: Ginger Mccabe RN)0804 (Given - Provider: Elizabeth Cooper RN)1402 (Given - Provider: Kamila Deluna RN) 975 mg, Oral, EVERY 6 HOURS, First dose on Thu06/10/22 at 1830, Maximum acetaminophen dose from all sources = 75 mg/kg/day not to exceed 4 grams/day. 2003 (Given - Provider: Ginger Mccabe RN) enoxaparin ANTICOAGULANT (LOVENOX) injection 40 mg 152 7 (Given - Provider: Latonia Farris RN) 1705 (Given - Provider: Kavin Rachel RN) 1500 (Ca nceled Entry - Provider: Orders Generic Provider - Comment: Automatically canceled at discontinue of medication order) 40 mg, Subcutaneous, EVERY 24 HOURS, Fir st dose on Thu06/11/22 at 1500, Wait GREATER than or EQUAL to 12 hours after the neuraxial procedure AND GREATER than or EQUAL to four hours after the epidural c atheter removal before initiating or res tarting LMWH thromboprophylaxis (enoxaparin). Surgery start time: 1:40 pm ibuprofen (ADVIL/MOTRIN) tablet 800 mg 1108 (Given - P rovider: Latonia Farris RN)1615 (Not Given - Provider: Latonia Farris RN - Reason: Other - Comment: dose rescheduled)1713 (Given - Provider: Latonia Farris RN)2303 (Given - Pro vider: Theresa Melchor RN) 0456 (Given - Provider: Theresa Rob ch RN)1100 (Given - Provider: Latonia Farris RN)1705 (Given - Provider: Kavin Rachel RN)2249 (Given - Provider: Joce Cervantes RN) 0502 (Given - Provider: Ginger Mccabe, ALDO)1056 (Given - Provider: Elizabeth Cooper, ALDO)1700 (Canceled Entry - Provider: Orders Generic Provider - Comment: Automatically canceled at discontinue of medication order) 800 mg, Oral, EVERY 6 HOURS, First dose on Thu06/11/22 at 1000, Give with food. ketorolac (TORADOL) injection 30 mg () 0301 (Ca nceled Entry - Provider: Rose Combs RN)0411 (Given - Provider: Rose Combs RN) 30 mg, Intravenous, EVERY 6 HOURS, First dose on Thu06/10/22 at 2100, For 3 doses, Can cause pain on injection. If ordered intravenously (IV) : administer through a running maintenance fluid over 1 min [facility] followed by a flush. If patient comp lains of pain on injection, may dilute 15-30 mg in 5 mL and push over 1 to 2 minutes. polyethylene glycol (MIRALAX) Packet 17 g (CANCELED) 0 902 (Given - Provider: Latonia Farris RN) 17 g, Oral, DAILY, First dose on Thu at 1630, 1 Packet = 17 grams. Mix each gram with at least 1/2 ounce (15 mL) of water - 8 ounces for 17 g dose, 4 ounces for 8.5 g dose, 2 ounces for 4 g dos e. Follow with the same volume of water. Hold for loose stools unless being administered as part of a bowel prep regimen or bowel clean out. polyethylene glycol (MIRALAX) Packet 17 g 819 (Given - Provider: Latonia Farris RN)2003 (Given - Provider: Ginger Mccabe, ALDO) 822 (Given - Provider: Elizabeth Cooper, ALDO) 17 g, Oral, 2 TIMES DAILY, First dose (a fter last modification) on Thu06/12/22 at 0900, 1 Packet = 17 grams. Mix each gram with at least 1/2 ounce (15 mL) of water - 8 ounces for 17 g dose, 4 ounces fo r 8.5 g dose, 2 ounces for 4 g dose. Fol low with the same volume of water. Hold for loose stools unless being administered as part of a bowel prep regimen or bowel clean out. multivitamin w/iron per tablet 1 tablet 09 (Given - Provider: Latonia Farris RN) 07 (Given - Provider: Latonia Farris RN) 08 (Gi vinay - Provider: Elizabeth Cooper, ALDO) 1 tablet, Oral, DAILY, First dose on Thu06/10/22 at 1500, Indications: senna-docusate (SENOKOT-S/PERICOLACE) 8. 6-50 MG per tablet 1 tablet(Linked Group 1) 0246 (Not Given - Provider: Rose rodriguez RN - Reason: Patient/family refused)900 (Given - Provider: Latonia Farris RN)2012 (Given - Provider: Theresa Melchor RN) 07 (See Alternative - Provider: Latonia Farris RN)2003 (See Alternative - Provider: Ginger Mccabe, ALDO) 08 (See Alternative - Provider: Elizabeth Cooper, ALDO) 1 tablet, Oral, 2 TIMES DAILY, First dos e on Thu06/10/22 at 2000, If no bowel movement in 24 hours, increase to 2 tablets PO. Hold for loose stools. Preferred agent for constipation related to opioids. Hold for loose stools. senna-docusate (SENOKOT-S/PERICOLACE) 8. 6-50 MG per tablet 2 tablet(Linked Group 1) 0246 (See Alternative - Provider: Brenda Combs RN)0901 (See Alternative - Provider: Latonia Farris, ALDO)2012 (See Alternative - Provider: Theresa Melchor, ALDO) 0707 (Given - Provider: Latonia Farris , RN)2003 (Given - Provider: Ginger Mccabe, ALDO) 0805 (Given - Provider: Elizabeth Cooper , ALDO) 2 tablet, Oral, 2 TIMES DAILY, First dos e on Thu06/10/22 at 2000, Hold for loose stools. Preferred agent for constipation related to opioids. Hold for loose stools. Continuous Medication Order 06/11/2022 06/12/2022 06/13/2022 dextrose 5% in lactated ringers infusion 0623 (Stopped - Provider: Rose Combs RN - Comment: tolerating PO) at 125 mL/hr, Intravenous, CONTINUOUS, S ubsequent IV at nurse's discretion. DC IV when tolerating fluids or at nurse's discretion & saline lock., Starting on Thu06/10/22 at 1500, Until Thu06/13/22 at 1800 HYDROmorphone (DILAUDID) TR[employer]MER AND B[employer] MACHINE OPERATOR 0.2 mg/mL OPIOID NAIVE (a ge less than 65 years) 0407 (Rate/Dose Verify - Provider: Rose Combs RN)0610 (Stopped - Provider: Rose Combs, ALDO) Continuous Rate: 0 mg/hr, TRIMMER AND B[employer] MACHINE OPERATOR Dose: 0.2 mg, TR[employer]MER AND [employer] MACHINE OPERATOR Lockout: 10 Minutes, One Hour Limit: 1.2 mg, Clinician Bolus (one time dose): 0.2 mg, Starting on Thu06/10/22 at 1630, Hold the dose for analgesic side e ffects. Notify the provider to assess fo r uncontrolled pain or analgesic side effects. Do NOT give any additional opioids while on TRIMMER AND B[employer]ER MACHINE OPERATOR unless provider authorized., Intravenous PRN Medication Order 06/11/2022 06/12/2022 06/13/2022 bisacodyl (DULCOLAX) suppository 10 mg 0966 (Not Given - Provider: Elizabeth Cooper RN - Reason: Patient/family refused - Comment: patient changed mind)1056 (Given - Provider: Elizabeth Cooper RN) 10 mg, Rectal, DAILY PRN, constipation, Starting on Janna 06/12/22 at 0000, Start POD 2 Hold for loose stools. carboprost (HEMABATE) injection 250 mcg 250 mcg, Intramuscular, EVERY 15 MIN PRN , ONLY for uterine atony with significant bleeding POST-DELIVERY, Starting on Thu06/10/22 at 1451, Notify provider IF uterine atony and clarify with provider med ication preference. Administer only if d irected by provider. Give with caution in patients with asthma, active pulmonary, hepatic, renal or cardiovascular disease. hydrocortisone (Perianal) (ANUSOL-HC) 2.5 % cream Rectal, 3 TIMES DAILY PRN, hemorrhoids, Starting on Thu06/10/22 at 1451, Apply to hemorrhoids. Send only if nurse requests. lanolin cream Topical, EVERY 1 HOUR PRN, dry skin, sor eness, Starting on Thu06/10/22 at 1451, Apply to sore nipples after feedings lidocaine (LMX4) cream Topical, EVERY 1 HOUR PRN, pain, with VA D insertion, Starting on Thu06/10/22 at 1451, Apply at least 30 minutes prior to VAD insertion in divided doses as needed for size of site for insertion. MAX Dos e: 2.5 g (?? of 5 g tube) Do NOT give if patient has a history of allergy to any local anesthetic or any loyda product. Do NOT use both lidocaine intradermal/subcutaneous injection and the lidocaine cream on the same site. lidocaine 1 % 0.1-1 mL 0.1-1 mL, Other, EVERY 1 HOUR PRN, mild pain with VAD insertion, Starting on Thu06/10/22 at 1451, MAX dose 1 mL subcutaneous OR intradermal along the side of the vein in divided doses as needed for VAD insertion. Do NOT give if patient has a history of allergy to any local anesthetic or any loyda product. Do NOT use both lidocaine intradermal/subcutaneous injection and the lidocaine cream on the same site. LORazepam (ATIVAN) tablet 0.5 mg 0.5 mg, Oral, EVERY 4 HOURS PRN, anxiety, Starting on Thu at 1201 methylergonovine (METHERGINE) injection 200 mcg 200 mcg, Intramuscular, EVERY 2 HOURS [place] N, ONLY for uterine atony with significant bleeding POST-DELIVERY, Starting on Thu06/10/22 at 1451, Notify provider IF uterine atony and clarify with provider me dication preference. Administer only if directed by provider. Contraindicated if Blood Pressure greater than 140/90, preeclampsia, or hypertension. misoprostol (CYTOTEC) tablet 400 mcg(Linked Group 2) 400 mcg, Oral, GIVE ONCE PRN AND REPEAT ACCORDING TO INSTRUCTIONS, post- hemorrhage, Starting on Thu06/10/22 at 1451, Administer only if directed by provider. Max administrations: 4 doses misoprostol (CYTOTEC) tablet 800 mcg(Linked Group 2) 800 mcg, Rectal, GIVE ONCE PRN AND REPEA T ACCORDING TO INSTRUCTIONS, post- hemorrhage, Starting on Thu06/10/22 at 1451, Give rectally if unable to take oral without complications. Administer only if directed by provider. Max administrations: 4 doses. naloxone (NARCAN) injection 0.2 mg(Linked Group 3) 0.2 mg, Intravenous, EVERY 2 MIN PRN, op ioid reversal, Starting on Thu06/10/22 at 1455, Administer intravenous route when available and notify provider when administered. For unintended sedation or res piratory depression if all of the below criteria are met: ~ respiratory rate LESS than or EQUAL to 8. ~SaO2 less than 92% and or/end-tidal CO2 is greater than 50. ~ the patient is receiving an opioid, h as unintended sedations assessed as RASS (-3), and is currently not on mechanical ventilation. RASS scale moderate (-3) is movement or eye opening to voice but no eye contact. Patient Monitoring Once th e patient has demonstrated a response to the naloxone, continue to monitor respiratory rate, depth, oxygen saturation and end-tidal CO2 (if available) every 15 minutes x 2, then every 30 minutes x 2, th en every 1 hour x 1 after each naloxone dose. Consider transfer to ICU if patient respiratory parameters have not improved after 4 naloxone doses. naloxone (NARCAN) injection 0.2 mg(Linked Group 3) 0.2 mg, Intramuscular, EVERY 2 MIN PRN, opioid reversal, Starting on Thu06/10/22 at 1455, Administer intramuscular if an intravenous route is not available and notify provider when administered. For un intended sedation or respiratory depress ion if all of the below criteria are met: ~ respiratory rate LESS than or EQUAL to 8. ~SaO2 less than 92% and or/end- tidal CO2 is greater than 50. ~ the patient i s receiving an opioid, has unintended se dations assessed as RASS (-3), and is currently not on mechanical ventilation. RASS scale moderate (-3) is movement or eye opening to voice but no eye contact. Pa tient Monitoring Once the patient has de monstrated a response to the naloxone, continue to monitor respiratory rate, depth, oxygen saturation and end-tidal CO2 (if available) every 15 minutes x 2, then every 30 minutes x 2, then every 1 hour x 1 after each naloxone dose. Consider transfer to ICU if patient respiratory parameters have not improved after 4 naloxone doses. naloxone (NARCAN) injection 0.4 mg(Linked Group 3) 0.4 mg, Intravenous, EVERY 2 MIN PRN, op ioid reversal, Starting on Thu06/10/22 at 1455, Administer intravenous route when available and notify provider when administered. For unintended sedation or res piratory depression if all of the below criteria are met: ~ respiratory rate LESS than or EQUAL to 8. ~ SaO2 less than 92% and or/end-tidal CO2 is greater than 50. ~ the patient is receiving an opioid, has unintended sedation assessed as RASS (-4) or (-5) and patient is currently not on mechanical ventilation. RASS scale (-4) is deep sedation with no response to voice but movement or eye opening to ph ysical stimulation. RASS scale (-5) is u narousable. Patient Monitoring Once the patient has demonstrated a response to the naloxone, continue to monitor respiratory rate, depth, oxygen saturation and en d-tidal CO2 (if available) every 15 raphael sophia x 2, then every 30 minutes x 2, then every 1 hour x 1 after each naloxone dose. Consider transfer to ICU if patient respiratory parameters have not improved after 4 naloxone doses. naloxone (NARCAN) injection 0.4 mg(Linked Group 3) 0.4 mg, Intramuscular, EVERY 2 MIN PRN, opioid reversal, Starting on Thu06/10/22 at 1455, Administer intramuscular if an intravenous route is not available and notify provider when administered. For un intended sedation or respiratory depress ion if all of the below criteria are met: ~ respiratory rate LESS than or EQUAL to 8. ~ SaO2 less than 92% and or/end-tidal CO2 is greater than 50. ~ the patient is receiving an opioid, has unintended s edation assessed as RASS (-4) or (-5) and patient is currently not on mechanical ventilation. RASS scale (-4) is deep sedation with no response to voice but movem ent or eye opening to physical stimulati on. RASS scale (-5) is unarousable. Patient Monitoring Once the patient has demonstrated a response to the naloxone, continue to monitor respiratory rate, depth, oxygen saturation and end-tidal CO2 (if available) every 15 minutes x 2, then every 30 minutes x 2, then every 1 hour x 1 after each naloxone dose. Consider transfer to ICU if patient respiratory parameters have not improved after 4 naloxone doses. No MMR Needed - Assessment: Patient does not need MMR vaccine CONTINUOUS PRN, Starting on Thu06/10/22 at 1451, Until 05/21 at 1800 ondansetron (ZOFRAN ODT) ODT tab 4 mg(Linked Group 4) 4 mg, Oral, EVERY 6 HOURS PRN, nausea, v omiting, Starting on Thu06/10/22 at 1451, This is Step 2 of OB nausea and vomiting management. Give If nausea not resolved in 30 minutes after giving metoclopram mariah (REGLAN). If nausea is not resolved in 15 minutes, go to Step 3 (Compazine). With dry hands, peel back foil backing and gently remove tablet. Do not push oral disintegrating tablet through foil back ing. Administer immediately on tongue an d oral disintegrating tablet dissolves in seconds, then swallow with saliva. Liquid not required. ondansetron (ZOFRAN) injection 4 mg(Linked Group 4) 4 mg, Intravenous, EVERY 6 HOURS PRN, na usea, vomiting, Administer over 2-5 Minutes, Starting on Thu06/10/22 at 1451, This is Step 2 of OB nausea and vomiting management. Give if nausea not resolved 30 minutes after giving metoclopramide (RE GLAN). If nausea is not resolved in 15 minutes, go to Step 3 (Compazine). Irritant. oxyCODONE (ROXICODONE) tablet 5-10 mg 0554 (Not Given - Provider: Rose Combs RN - Reason: Patient/family refused)0611 (Given - Provider: Ginger Mccabe RN)0901 (Given - Provider: Latonia Farris RN)1153 (Given - Provider: Latonia Farris RN) 0201 (Given - Provider: Theresa Rob ch, RN)0456 (Given - Provider: Theresa Melchor RN)0820 (Given - Provider: Latonia Farris RN)1100 (Given - Provider: Latonia Farris RN)1356 (Given - Provider: Latonia Farris RN) 0200 (Given - Provider: Ginger Mccabe RN)0 501 (Given - Provider: Ginger Mccabe RN)0804 (Given - Provider: Elizabeth Cooper, ALDO)1056 (Given - Provider: Elizabeth Cooper, ALDO)1402 (Given - Provider: Kamila Deluna RN) 5-10 mg, Oral, EVERY 3 HOURS PRN, other, pain control or improvement in physical function. Hold dose for analgesic side effects., Starting on Thu06/11/22 at 0538, Notify provider to assess for uncontro 1525 (Given - Provider: Latonia Farris RN)1613 (Given - Provider: Latonia Farris RN)1917 (Given - Provider: Latonia Farris, ALDO)2012 (Given - Provider: Theresa Melchor RN)2303 (Given - Provider: Theresa Melchor RN) 1705 (Given - Provider: Kavin Rachel , ALDO)2003 (Given - Provider: Ginger Mccabe RN)2249 (Given - Provider: Joce Cervantes, ALDO) lled pain or analgesic side effects. Hol d while on TRIMMER AND B[employer] MACHINE OPERATOR or with regular IV opioid dosing. Maximum total is 60 mg in 24 hours. oxytocin (PITOCIN) 30 units in 500 mL 0.9% NaCl infusion 340 mL/hr, Intravenous, CONTINUOUS PRN, for hemorrhage (PPH) UNTIL bleeding subsided., Starting on Thu06/10/22 at 1451, When bleeding subsides decrease rate to 100 mL/hr. Notify provider imm ediately when infusion begun. Oxytocin is first line medication for PPH. oxytocin (PITOCIN) injection 10 Units 10 Units, Intramuscular, ONCE PRN, for p ostpartum hemorrhage (PPH), IF no IV access is available., Starting on Thu06/10/22 at 1451, For 1 dose, Notify provider immediately when injection given. Oxytocin is first line medication for PPH. prochlorperazine (COMPAZINE) injection 10 mg(Linked Group 5) 10 mg, Intravenous, EVERY 6 HOURS PRN, n ausea, vomiting, Administer over 2 Minutes, Starting on Thu06/10/22 at 1451, This is Step 3 of OB nausea and vomiting management. Give if nausea not resolved 15 minutes after giving ondansetron (ZOFRAN ). If nausea is not resolved in 30 minutes, notify provider. prochlorperazine (COMPAZINE) suppository 25 mg(Linked Group 5) 25 mg, Rectal, EVERY 12 HOURS PRN, nause a, vomiting, Starting on Thu06/10/22 at 1451, This is Step 3 of OB nausea and vomiting management. Give if nausea not resolved 15 minutes after giving ondansetro n (ZOFRAN). If nausea is not resolved in 30 minutes, notify prov ider. prochlorperazine (COMPAZINE) tablet 10 mg(Linked Group 5) 10 mg, Oral, EVERY 6 HOURS PRN, nausea, vomiting, Starting on Thu06/10/22 at 1451, This is Step 3 of OB nausea and vomiting management. Give if nausea not resolved 15 minutes after giving ondansetron ( ZOFRAN). If nausea is not resolved in 30 minutes, notify provide r. simethicone (MYLICON) chewable tablet 80 mg 1246 (Give n - Provider: Latonia Farris RN)1841 (Given - Provider: Latonia Farris RN) 0502 (Given - Provider: Theresa Melchor RN) 80 mg, Oral, 4 TIMES DAILY PRN, other, g as, Starting on Thu06/10/22 at 1451, Chew. sodium phosphate (FLEET ENEMA) 1 enema 1 enema, Rectal, DAILY PRN, constipation , , Starting on Janna 06/12/22 at 0000, Use if bisacodyl not effective. Start POD 2. Hold for loose stools unless being administered as part of a bowel prep regimen prior to a procedure. tranexamic acid 1 g in 100 mL NS IV bag (premix) 1 g, Intravenous, Administer over 10 Min utes, EVERY 30 MIN PRN, Post- hemorrhage (PPH), Starting on Thu06/10/22 at 1451, For 2 doses, Provider consultation REQUIRED and MUST be administered as so on as the ONSET of bleeding AND within 3 hours of regardless of cause of the PPH (atony OR laceration). IF bleeding continues, a 2nd dose may be administered after 30 minutes. IF concern for DIC ( Disseminated Intravascular Coagulation), obtain coagulation studies PRIOR to administration. Contraindications include: history of PE (Pulmonary Emboli), DVT (Deep Vein Thrombosis) and current Subarachn oid hemorrhage and active DIC. Administer only if directed by pr ovider. Linked Groups Order Group 1: senna-docusate (SENOKOT-S/PERICOLACE) 8.6-50 MG per tablet 1 tabletJump to med 1 tablet, Oral, 2 TIMES DAILY, First dos e on Thu06/10/22 at 1999
If no bowel movement in 24 hours, increase to 2 tablets PO. Hold for loose stools. Preferred agent for constipation related to opioids.&nbs p;Hold for loose stools.
Or senna-docusate (SENOKOT-S/PERICOLACE) 8.6-50 MG per tablet 2 tabletJump to med 2 tablet, Oral, 2 TIMES DAILY, First dos e on Thu06/10/22 at 1999
Hold for loose stools. Preferred agent for constipation related to opioids. Hold for loose stools.
Group 2: misoprostol (CYTOTEC) tablet 400 mcgJump to med 400 mcg, Oral, GIVE ONCE PRN AND REPEAT ACCORDING TO INSTRUCTIONS, post- hemorrhage, Starting on Thu06/10/22 at 1451
Administer only if directed by provider. Max administrations: 4 doses
Or misoprostol (CYTOTEC) tablet 800 mcgJump to med 800 mcg, Rectal, GIVE ONCE PRN AND REPEA T ACCORDING TO INSTRUCTIONS, post- hemorrhage, Starting on Thu06/10/22 at 1451
Give rectally if unable to take oral without complications. Adminis ter only if directed by provider. Max ad ministrations: 4 doses.
Group 3: naloxone (NARCAN) injection 0.2 mgJump to med 0.2 mg, Intravenous, EVERY 2 MIN PRN, op ioid reversal, Starting on Thu06/10/22 at 1455
Administer intravenous route when available and notify provider when administered. For unintende d sedation or respiratory depression if all of the below criteria are met: ~ respiratory rate LESS than or EQUAL to 8. ~SaO2 less than 92% and or/end-tidal CO2 is greater than 50.&amp ;nbsp;~ the patient is receiving an opio id, has unintended sedations assessed as RASS (-3), and is currently not on mechanical ventilation. RASS scale moderate (-3) is movement or eye opening to voice but no eye contact.&nb sp; Patient Monitoring Once the patient has demonstrated a response to the naloxone, continue to monitor respiratory rate, depth, oxygen sat uration and end-tidal CO2 (if available) every 15 minutes x 2, then every 30 minutes x 2, then every 1 hour x 1 after each naloxone dose. Consider transfer to ICU if patient respirato ry parameters have not improved after 4 naloxone doses.
Or naloxone (NARCAN) injection 0.4 mgJump to med 0.4 mg, Intravenous, EVERY 2 MIN PRN, op ioid reversal, Starting on Thu06/10/22 at 1455
Administer intravenous route when available and notify provider when administered. For unintende d sedation or respiratory depression if all of the below criteria are met: ~ respiratory rate LESS than or EQUAL to 8. ~ SaO2 less than 92% and or/end-tidal CO2 is greater than 50.&amp ;nbsp;~ the patient is receiving an opio id, has unintended sedation assessed as RASS (-4) or (-5) and patient is currently not on mechanical ventilation. RASS scale (-4) is deep sedat ion with no response to voice but moveme nt or eye opening to physical stimulation. RASS scale (-5) is unarousable. Patient Monitoring O nce the patient has demonstrated a respo nse to the naloxone, continue to monitor respiratory rate, depth, oxygen saturation and end-tidal CO2 (if available) every 15 minutes x 2, then every 30 minutes x 2, then every 1 hour x 1 after each nal oxone dose. Consider transfer to ICU if patient respiratory parameters have not improved after 4 naloxone doses.
Or naloxone (NARCAN) injection 0.2 mgJump to med 0.2 mg, Intramuscular, EVERY 2 MIN PRN, opioid reversal, Starting on Thu06/10/22 at 1455
Administer intramuscular if an intravenous route is not available and notify provider when administered . For unintended sedation or respir atory depression if all of the below criteria are met: ~ respiratory rate LESS than or EQUAL to 8. ~SaO2 less than 92% and or/end-tidal CO2 is greater than 50. ~ the patient is receiving an opioid, has unintended sedations assessed as RASS (-3), and is currently not on mechanical ventilation. RASS scale moderate (-3) is movement or eye opening to voic e but no eye contact. Patient Monitoring Once the patient has demonstrated a response to the naloxone, continue to monitor respiratory rate, depth, oxygen saturation and end- tidal CO2 (if available) every 15 minutes x 2, then every 30 minutes x 2, then every 1 hour x 1 after each naloxone dose. Consider transfer to ICU if patient respiratory parameters garza ve not improved after 4 naloxone doses.
Or naloxone (NARCAN) injection 0.4 mgJump to med 0.4 mg, Intramuscular, EVERY 2 MIN PRN, opioid reversal, Starting on Thu06/10/22 at 1455
Administer intramuscular if an intravenous route is not available and notify provider when administered . For unintended sedation or respir atory depression if all of the below criteria are met: ~ respiratory rate LESS than or EQUAL to 8. ~ SaO2 less than 92% and or/end-tidal CO2 is greater than 50. ~ the patient is receiving an opioid, has unintended sedation assessed as RASS (-4) or (-5) and patient is currently not on mechanical ventilation. RASS scale (-4) is deep sedation with no resp onse to voice but movement or eye opening to physical stimulation. RASS scale (-5) is unarousable. Patie nt Monitoring Once the patient has demonstrated a response to the naloxone, continue to monitor respiratory rate, depth, oxygen saturation and end-tidal CO2 (if available) every 15 minutes x 2, then every 30 minutes x 2, then every 1 hour x 1 after each naloxone dose. Consider transfer to ICU if patient respiratory parameters have not improved after 4 naloxone doses.
Group 4: ondansetron (ZOFRAN ODT) ODT tab 4 mgJump to med 4 mg, Oral, EVERY 6 HOURS PRN, nausea, v omiting, Starting on Thu06/10/22 at 1451
This is Step 2 of OB nausea and vomiting management. Give If nausea not resolved in 30 minut es after giving metoclopramide (REGLAN). If nausea is not resolved in 15 minutes, go to Step 3 (Compazine). With dry hands, peel back foil backing and gently remove tablet. D o not push oral disintegrating tablet th rough foil backing. Administer immediately on tongue and oral disintegrating tablet dissolves in seconds, then swallow with saliva. Liquid not required.
Or ondansetron (ZOFRAN) injection 4 mgJump to med 4 mg, Intravenous, EVERY 6 HOURS PRN, na usea, vomiting, Administer over 2-5 Minutes, Starting on Thu06/10/22 at 1451
This is Step 2 of OB nausea and vomiting management. Giv e if nausea not resolved 30 minutes afte r giving metoclopramide (REGLAN). If nausea is not resolved in 15 minutes, go to Step 3 (Compazine). Irritant.
Group 5: prochlorperazine (COMPAZINE) injection 10 mgJump to med 10 mg, Intravenous, EVERY 6 HOURS PRN, n ausea, vomiting, Administer over 2 Minutes, Starting on Thu06/10/22 at 1451
This is Step 3 of OB nausea and vomiting management. Give if nausea not reso lved 15 minutes after giving ondansetron (ZOFRAN). If nausea is not resolved in 30 minutes, notify provider.
Or prochlorperazine (COMPAZINE) tablet 10 mgJump to med 10 mg, Oral, EVERY 6 HOURS PRN, nausea, vomiting, Starting on Thu06/10/22 at 1451
This is Step 3 of OB nausea and vomiting management. Give if nausea not resolved 15 minutes after giving ondan setron (ZOFRAN). If nausea is not resolv ed in 30 minutes, notify provider.
Or prochlorperazine (COMPAZINE) suppository 25 mgJump to med 25 mg, Rectal, EVERY 12 HOURS PRN, nause a, vomiting, Starting on Thu06/10/22 at 1451
This is Step 3 of OB nausea and vomiting management. Give if nausea not resolved 15 minutes after giving on dansetron (ZOFRAN). If nausea is not res olved in 30 minutes, notify provider.
documented in this encounter Additional Health Concerns Assessment Noted Time PHQ-9 Depression Total Score: 2 01/26/2019 11:18 AM CD T documented as of this encounter Care Teams Field Superintendent Relationship Specialty Start Date End Date Justin Loya MD PCP - General Family Practice 02/19/11 [facility] [id number] [place] [id number] Silas Santiago MD MD Pain Clinic 11/29/13 [facility] [id number] [facility] [place] [place] [address] Caden Leone, Assigned Surgical Provider 07/20 01/08 MD Mike [place] [id number] documented as of this encounter
--- OUTSIDE RECORDS SUMMARY | 2022-06-23 17:38 | XMS_ITS | Encounter Summary ---
:1990 Author Organization [facility] Address [address] 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 furnace installer Diagnoses Previous section Previous section [Z98.891] Sh Mac Procedures [facility] FULL ROUT OBSTE CARE, DELIV [facility] DELIVERY ONLY [facility] DELIVERY+ CARE REPEAT SECTION [address], [address] [place] [phone] Phone: Referral ID Status Reason Start Date Expiration Date Visits Requ ested Visits Authorized [id number] 1 1 Encounter Details Date Type Department Care Team Description 06/10/2022 Anesthesia Event [facility] Van Hou [facility] [address] [facility]ESTHESIOLOGISTS [place] [phone] [address] [phone] [place] [id number] (Wo rk) Anesthesia Record Procedure Summary Procedure Name Responsible Anesthesia Start Anesthesia Stop Time Anesthesiologist Time REPEAT Van Hou MD 06/10/22 1324 06/10/22 1 442 SECTION (Abdomen) Events Date Time Event Comment 06/10/2022 1146 1324 An Start 1324 An Start Data 1324 AN REASSESS I attest that I have identified and re-evaluated the patient immediat virgil before the induction of anesthesia and I am satisfied that the anesthetic plan is suitable for the patient's condition and procedure. The f irst vital signs recorded are pre- induction. Dennis Harris APRN CRNA 1324 Quick Note Controlled Subst ance Handoff Documentation I am handing off the following [facility] Fentanyl 50 mcg/mL 2 mL Madonna Maldonado APRN, CRNA I am taking control over the above listed controlled substances: Bridgette Harris CRNA 1331 MD Present 1336 AN INCISION 1340 An Induction 1341 An Intubation 1342 Uterine Incision 1343 Baby Delivered 1349 MD Present 1434 MD Present 1439 AN Extubation All extubation c riteria met prior to removal. 1439 an stop data 1442 An Stop Electronically s igned by Bridgette Harris APRN CRNA on June 10, 2022 2:42 PM Name Total fentaNYL (SUBLIMAZE) injection 100 mcg midazolam 1mg/mL 2 mg ondansetron 2mg/mL 4 mg clindamycin (CLEOCIN) infusion 900 mg 0 mg clindamycin 900 mg/50mL 900 mg gentamicin (GARAMYCIN) 150 mg in sodium chloride 0.9 % 50 mL intermittent 0 mg infusion lidocaine 2% 100 mg succinylcholine 20 mg/mL 100 mg oxytocin (PITOCIN) 30 units in 500 mL 0.9% NaCl infusi on 213.33 mL ketorolac 30 mg/mL 30 mg Bupivacaine 0.5% w/ 1:400K Epi (Injection) 40 mL LR 1,500 mL lactated ringers infusion 0 mL Agents Name NO HELIOX O2 N2O Air Exp Sevoflurane Exp Isoflurane Exp Desflurane Exp N2O Ins Sevoflurane Ins Isoflurane Ins Desflurane O2 Auxiliary Blood No blood administrations on file. Lines, Drains, and Airways Type Details Placement Removal Incision/Surgical Site 06/10/22; 1424; 06/10/22 1424 by Abdomen Kiki Vogt RN Peripheral IV 06/10/22; 1156; 18 G, 06/10/22 1156 by 06/11/22 1600 by 1 1/4 inch; BD; Melody Mcbride Parker, Jessica Dockery, Anterior, Left; Lower RN RN forearm; Chlorhexidine; None; Tolerated poorly (pt super anxious) Urethral Catheter 06/10/22; 1327; No; 06/10/22 1327 by 06/11/22 0930 by /GI/NEEDLE LOOM TENDER Pelvic Kiki Vogt, Barrera Dockery, Procedure; 16 fr; POD A, RN RN 1 ETT Placement Date: 06/10/22 1341 by 06/10/22 1439 b y 06/10/22; Placement rBidgette Harris K risti Time: 1341 (created SANDY Hoffman CRNA, APRN C RNA via procedure documentation); Mask Ventilation: 0; Induction Type: RSI; Ease of Intubation: Easy; Technique: Video laryngoscopy; ETT Type: Single; Tube Size: 6.5 mm; VL Blade Size: Spencer scope 3; Grade View: 1; Adjucts: Stylet; Placement Person: Physician, BRIANNA; Attempts: 1; Depth: 22 cm documented in this encounter Social History Tobacco [...] No / Unsu re 06/09/2022 8:19 AM FINE GRADE OPERATOR someone who was confirmed or suspected to have Coronavirus/COVID-19? documented as of this encounter OR Notes Anesthesia Postprocedure Evaluation - Van Hou MD - 06/10/2022 2:50 PM CST Patient: Destiney Cassidy Procedure: Procedure(s): REPEAT SECTION Anesthesia Type: General Note: Disposition: Inpatient Postop Pain Control: Uneventful Sign Out: Well controlled pain PONV: No Neuro/Psych: Uneventful Sign Out: Acceptable/Baseline neuro status Airway/Respiratory: Uneventful Sign Out: Acceptable/Baseline resp. status CV/Hemodynamics: Uneventful Sign Out: Acceptable CV status; No obvious hypovolemia; No obvious fluid overload Other NRE: NONE DID A NON-ROUTINE EVENT OCCUR? No Last vitals: Vitals Value Taken Time BP Temp Pulse Resp SpO2 Electronically Signed By: Van Hou MD June 10, 2022 2:50 PM GRADE OPERATOR Anesthesia Procedure Notes - Van Hou MD - 06/10/2022 2:49 PM FINE GRADE OPERATOR Associated Order(s): Peripheral/Paravertebral Block TAP Procedure Note Pre-Procedure Staff - Anesthesiologist: Van Hou MD Performed By: anesthesiologist Location: OR Pre-Anesthestic Checklist: patient identified, IV checked, site marked, risks and benefits discussed, informed consent, monitors and equipment checked, pre-op evaluation, at physician/surgeon's request and post-op pain management Timeout: Correct Patient: Yes Correct Procedure: Yes Correct Site: Yes Correct Position: Yes Correct Laterality: Yes Site Marked: Yes Procedure Documentation Procedure: TAP Laterality: bilateral Patient Position: supine Patient Prep/Sterile Barriers: sterile gloves, mask, no-touch technique Skin prep: Chloraprep Local skin infiltrated with 3 mL of 1% lidocaine. Needle Type: insulated and short bevel (Pajunk) Needle Gauge: 21. Needle Length (millimeters): 100 Ultrasound guided 1. Ultrasound was used to identify targeted nerve, plexus, vascular marker, or fascial plane and place a needle adjacent to it in real-time. 2. Ultrasound was used to visualize the spread of anesthetic in close proximity to the above referenced structure. 3. A permanent image is entered into the patient's record. 4. The visualized anatomic structures appeared normal. 5. There were no apparent abnormal pathologic findings. Assessment/Narrative The placement was negative for: blood aspirated, painful injection and site bleeding Paresthesias: No. Test dose of mL at. Test dose negative, 3 minutes after injection, for signs of intravascular, subdural, or intrathecalinjection. Bolus given via needle.. Secured via. Insertion/Infusion Method: Single Shot Complications: none Injection made incrementally with aspirations every 5 mL. Medication(s) Administered Bupivacaine 0.5% w/ 1:400K Epi (Injection) - Injection 40 mL - 06/10/2022 2:30:00 PM Comments: 0.5% Bupivacaine with 1:400,000 epinephrine injected. Patient tolerated the procedure well. The surgeon has given a verbal order transferring care of this patient to me for the performance of a regional analgesia block for post-op pain control. It is requested of me because I am uniquely trained and qualified to perform this block and the surgeon is neither trained nor qualified to perform this procedure. FOR [facility] [place] [place]: Pain Team Contact information: please page the Pain Team Via [place]. Search Pain. During daytime hours, please page the attending first. At night please page the resident first. GRADE OPERATOR Anesthesia Procedure Notes - Bridgette Harris APRN CRNA - 06/10/2022 1:51 PM CSTAssociated Order(s): Airway Airway Patient location during procedure: OR Procedure Start/Stop Times: 06/10/2022 1:41 PM Staff - Anesthesiologist: Van Hou MD LABOUR MARKET ECONOMIST: Bridgette Harris APRN CRNA Performed By: anesthesiologist and LABOUR MARKET ECONOMIST Consent for Airway Urgency: elective Indications and Patient Condition Indications for airway management: ana-procedural Induction type:RSI Mask difficulty assessment: 0 - not attempted Final Airway Details Final airway type: endotracheal airway Successful airway: ETT - single Endotracheal Airway Details ETT size (mm): 6.5 Successful intubation technique: video laryngoscopy VL Blade Size: Glidescope 3 Grade View of Cords: 1 Adjucts: stylet Position: Right Measured from: lips Secured at (cm): 22 Bite block used: None Post intubation assessment Placement verified by: capnometry, equal breath sounds and chest rise Number of attempts at approach: 1 Secured with: plastic tape Ease of procedure: easy Dentition: Intact and Unchanged Medication(s) Administered Medication Administration Time: 06/10/2022 1:41 PM GRADE OPERATOR Anesthesia Preprocedure Evaluation - Van Hou MD - 06/10/2022 11:07 AM CST Anesthesia Pre-Procedure Evaluation Patient: Destiney Cassidy : 1990 Procedure : Procedure(s): REPEAT SECTION Past Medical History: Diagnosis Date ??? Anxiety ??? Graves disease ??? Insomnia ??? Neuropathy ??? POTS (postural orthostatic tachycardia syndrome) ??? Thrombosis of left jugular vein ??? Trigeminal neuralgia Past Surgical History: Procedure Laterality Date ??? SECTION 2020 ??? DECOMPRESSION LUMBAR MINIMALLY INVASIVE ONE LEVEL 02/19/2011 Procedure:DECOMPRESSION LUMBAR MINIMALLY INVASIVE ONE LEVEL; L5-S1; Surgeon:KAYE HERNANDEZ; Location:[facility] ??? MYRINGOTOMY, INSERT TUBE BILATERAL, COMBINED ??? TONSILLECTOMY ??? WISDOM TEETH EXTRACTION Allergies Allergen Reactions ??? Cephalosporins Hives ??? Penicillins Hives Hives, swelling of hands/feet PN: rash PN: rash Hives, swelling of hands/feet ??? Ciprofloxacin Unknown Nerve pain Other reaction(s): Other (see comments) Cipro - Nerve pain. Nerve pain Cipro - Nerve pain. ??? Pollen Extract Unknown and Other (See Comments) Seasonal Allergies - Sneezing. Seasonal Allergies - Sneezing. ??? Metoclopramide Anxiety and Other (See Comments) Restlessness, squirming Social History Tobacco Use ??? Smoking status: Never ??? Smokeless tobacco: Never Substance Use Topics ??? Alcohol use: No Wt Readings from Last 1 Encounters: 05/28/22 77.6 kg (171 lb) Anesthesia Evaluation Pt has had prior anesthetic. No history of anesthetic complications ROS/MED HX ENT/Pulmonary: - neg pulmonary ROS (-) sleep apnea Neurologic: Comment: H/O trigeminal neuralgia (+) peripheral neuropathy, Cardiovascular: Comment: POTS - neg cardiovascular ROS (-) hypertension METS/Exercise Tolerance: Hematologic: Comments: H/O thrombosis of left IJV (+) History of blood clots, Musculoskeletal: Comment: S/p decompression laMINOTOMY GI/Hepatic: (+) GERD, Renal/Genitourinary: - neg Renal ROS Endo: (+) thyroid problem, hyperthyroidism euthyroid now, Psychiatric/Substance Use: (+) psychiatric history anxiety Infectious Disease: Malignancy: Other: Physical Exam Airway Mallampati: II TM distance: > 3 FB Neck ROM: full Mouth opening: > 3 cm Respiratory Devices and Support Dental no notable dental history Cardiovascular cardiovascular exam normal Pulmonary pulmonary exam normal OUTSIDE LABS: CBC: Lab Results Component Value Date WBC 8.0 03/18/2022 WBC 5.3 08/03/2021 HGB 11.9 06/09/2022 HGB 11.1 (L) 04/16/2022 HCT 36.0 03/18/2022 HCT 44.8 08/03/2021 PLT 262 03/18/2022 PLT 269 08/03/2021 BMP: Lab Results Component Value Date NA 134 (L) 04/16/2022 NA 139 08/03/2021 POTASSIUM 3.7 04/16/2022 POTASSIUM 3.8 08/03/2021 CHLORIDE 100 04/16/2022 CHLORIDE 106 08/03/2021 CO2 22 04/16/2022 CO2 28 08/03/2021 BUN 7.9 04/16/2022 BUN 10 08/03/2021 CR 0.50 (L) 04/16/2022 CR 0.67 08/03/2021 GLC 153 (H) 04/16/2022 GLC 90 08/03/2021 COAGS: Lab Results Component Value Date PTT 46 (H) 04/05/2017 INR 1.85 (H) 04/05/2017 POC: Lab Results Component Value Date HCG Negative 08/03/2021 HCGS Negative 08/03/2021 HEPATIC: Lab Results Component Value Date ALBUMIN 3.3 (L) 05/13/2022 PROTTOTAL 6.0 (L) 05/13/2022 ALT 11 05/13/2022 AST 16 05/13/2022 ALKPHOS 96 05/13/2022 BILITOTAL 0.4 05/13/2022 OTHER: Lab Results Component Value Date LACT 0.8 08/03/2017 JOSETTE 8.9 04/16/2022 MAG 2.1 08/18/2017 LIPASE 105 08/03/2021 TSH 2.50 01/30/2021 CRP <2.9 03/29/2017 SED 4 08/03/2017 Anesthesia Plan ASA Status: 2 NPO Status: NPO Appropriate Anesthesia Type: General. - Airway: ETT Induction: RSI, Intravenous, Propofol. Maintenance: Balanced. Consents Anesthesia Plan(s) and associated risks, benefits, and realistic alternatives discussed. Questions answered and patient/client care representative(s) expressed understanding. - Discussed: - Discussed with: Patient Postoperative Care Pain management: IV analgesics, Peripheral nerve block (Single Shot). PONV prophylaxis: Ondansetron (or other 5HT-3), Background Propofol Infusion Comments: Van Hou MD GRADE OPERATOR documented in this encounter Miscellaneous Notes Anesthesia Care Transfer Note - Bridgette Harris APRN CRNA - 06/10/2022 2:42 PM CST Patient: Destiney Cassidy Procedure: Procedure(s): REPEAT SECTION Diagnosis: Previous section [Z98.891] Diagnosis Additional Information: No value filed. Anesthesia Type: General Note: Oropharynx: oropharynx clear of all foreign objects Level of Consciousness: awake Oxygen Supplementation: face mask Level of Supplemental Oxygen (L/min / FiO2): 6 Independent Airway: airway patency satisfactory and stable Dentition: dentition unchanged Vital Signs Stable: post-procedure vital signs reviewed and stable Report to RN Given: handoff report given Patient transferred to: PACU Handoff Report: Identifed the Patient, Identified the Reponsible Provider, Reviewed the pertinent medical history, Discussed the surgical course, Reviewed Intra-OP anesthesia mangement and issues during anesthesia, Set expectations for post-procedure period and Allowed opportunity for questions and acknowledgement of understanding Vitals: Vitals Value Taken Time BP Temp Pulse Resp SpO2 Electronically Signed By: Bridgette Harris APRN CRNA June 10, 2022 2:42 PM GRADE OPERATOR documented in this encounter Plan of Treatment Not on filedocumented as of this encounter Procedures Procedure Name Priority Date/Time Associated Comments Diagnosis ANE Routine 06/10/2022 2:49 PM Results f or this PERIPHERAL/PARAVETEBR FINE GRADE OPERATOR proced ure are in AL BLOCK the results section. ANE AIRWAY ETT Routine 06/10/2022 1:41 PM Results for this PERFORMABLE FINE GRADE OPERATOR procedure are i n the results section. documented in this encounter Results Peripheral/Paravertebral Block (06/10/2022 2:49 PM FINE GRADE OPERATOR) Narrative Van Hou MD - 06/10/2022 2:49 PM FINE GRADE OPERATOR Van Huo MD ? 06/10/2022 ??2:50 PM TAP Procedure Note Pre-Procedure Staff - ? Anesthesiologist: ??Cindi Hou MD ? Performed By: anesthesiologist ? Location: OR ? Pre-Anesthestic Checklist: patien t identified, IV checked, site marked, risks and benefits discussed, in formed consent, monitors and equipment checked, pre-op evaluation, at physician/surgeon's request and post-op pain management Timeout: ? Correct Patient: Yes ? Correct Procedure: Yes ? Correct Site: Yes ? Correct Position: Yes ? Correct Laterality: Yes ? Site Marked: Yes Procedure Documentation Procedure: TAP ? Laterality: bilateral ? Patient Position: supine ? Patient Prep/Sterile Barriers: st erile gloves, mask, no-touch technique ? Skin prep: Chloraprep ? Local skin infiltrated with 3 mL of 1% lidocaine. ? Needle Type: insulated and short bevel (Pajunk) ? Needle Gauge: 21. ? Needle Length (millimeters): 100 ? Ultrasound guided ? 1. Ultrasound was used to identif y targeted nerve, plexus, vascular marker, or fascial plane and place a nee dle adjacent to it in real-time. ? 2. Ultrasound was used to visuali ze the spread of anesthetic in close proximity to the above referenced struct ure. ? 3. A permanent image is entered i nto the patient's record. ? 4. The visualized anatomic struct ures appeared normal. ? 5. There were no apparent abnorma l pathologic findings. Assessment/Narrative ? The placement was negative for: b lood aspirated, painful injection and site bleeding ? Paresthesias: No. ? Test dose of mL at. ? Test dose negative, 3 minutes aft er injection, for signs of intravascular, subdural, or intrathecal injection. ? Bolus given via needle.. ? Secured via. ? Insertion/Infusion Method: Single Shot ? Complications: none ? Injection made incrementally with aspirations every 5 mL. Medication(s) Administered Bupivacaine 0.5% w/ 1:400K Epi (Injectio n) - Injection 40 mL - 06/10/2022 2:30:00 PM Comments: ??0.5% Bupivacaine with 1:400, 000 epinephrine injected. ??Patient tolerated the procedure well. The surgeon has given a verbal order tra nsferring care of this patient to me for the performance of a regional som lgesia block for post-op pain control. It is requested of me because I am uniquely trained and qualified to perform this block and the surgeon is neither trained nor qualified to perform this procedure. FOR [facility] [place] [place]: ?? Pain Team Contact information: please page the Pain Team Via [place]. Search [place] in. During daytime hours, please page the attending first. At night pleas e page the resident first. Van Hou MD [place] ANESTHESIA ANE AIRWAY ETT PERFORMABLE (06/10/2022 1:41 PM FINE GRADE OPERATOR) Narrative Bridgette Harris APRN CRNA - 06/10 1:41 PM FINE GRADE OPERATOR Bridgette Harris APRN CRNA ? 06/10/2022 ??1:52 PM Airway ? Patient location during procedure : OR ? Procedure Start/Stop Times: 06/10 1:41 PM Staff - ? Anesthesiologist: ??Cindi Hou MD ? LABOUR MARKET ECONOMIST: Bridgette Harris APRN CRNA ? Performed By: anesthesiologist stephen toussaint LABOUR MARKET ECONOMIST Consent for Airway ? Urgency: elective Indications and Patient Condition ? Indications for airway management : ana-procedural ? Induction type:RSI ? Mask difficulty assessment: 0 - n ot attempted Final Airway Details ? Final airway type: endotracheal a irway ? Successful airway: ETT - single Endotracheal Airway Details ? ETT size (mm): 6.5 ? Successful intubation technique: video laryngoscopy ? VL Blade Size: Glidescope 3 ? Grade View of Cords: 1 ? Adjucts: stylet ? Position: Right ? Measured from: lips ? Secured at (cm): 22 ? Bite block used: None Post intubation assessment ? Placement verified by: capnometry , equal breath sounds and chest rise ? Number of attempts at approach: 1 ? Secured with: plastic tape ? Ease of procedure: easy ? Dentition: Intact and Unchanged Medication(s) Administered Medication Administration Time: 06/10/20 1:41 PM Van Hou MD [place] ANESTHESIA documented in this encounter Visit Diagnoses Not on filedocumented in this encounter Administered Medications Inactive Administered Medications - up to 3 most recent administrations Medication Order MAR Action Action Date Dose Rate Site bupivacaine 0.5% /EPI 1:400,000 Given 06/10/2022 2:30 PM FINE GRADE OPERATOR 40 mLs Injection, Starting on Thu06/10/22 at 1430, Anesthesia Intra-op clindamycin (CLEOCIN) infusion Given 06/10/2022 1:37 PM FINE GRADE OPERATOR 900 mg Routine, Intravenous, PRN, Starting on Thu06/10/22 at 1337, Anesthesia Intra-op fentaNYL (PF) (SUBLIMAZE) injection Given 06/10/2022 1:47 PM FINE GRADE OPERATOR 100 mcg Intravenous, PRN, Administer over 3-5 Minutes, Starting on Thu06/10/22 at 1347, Anesthesia Intra-op ketorolac (TORADOL) injection Given 06/10/2022 2:04 PM FINE GRADE OPERATOR 30 mg Intravenous, PRN, Administer over 2 Minutes, Starting on Thu06/10/22 at 1404, Anesthesia Intra-op lactated ringers infusion New Bag 06/10/2022 1:54 PM FINE GRADE OPERATOR Intravenous, CONTINUOUS PRN, Anesthesia Intra-op, Starting on Thu06/10/22 at 1324, Until Thu06/10/22 at 1442 New Bag 06/10/2022 1:24 PM FINE GRADE OPERATOR lidocaine 2% injection (MDV) Given 06/10/2022 1:40 PM FINE GRADE OPERATOR 100 mg Other, PRN, Starting on Thu06/10/22 at 1340, Anesthesia Intra-op midazolam (VERSED) injection Given 06/10/2022 1:49 PM FINE GRADE OPERATOR 2 mg Intravenous, Administer over 2 Minutes, PRN, Starting on Thu06/10/22 at 1349, Anesthesia Intra-op ondansetron (ZOFRAN) injection Given 06/10/2022 1:48 PM FINE GRADE OPERATOR 4 mg Intravenous, PRN, Administer over 2-5 Minutes, Starting on Thu06/10/22 at 1348, Anesthesia Intra-op oxytocin (PITOCIN) 30 units Rate/Dose Change 06/10/2022 2:16 PM 100 mL/hr 100 mL/hr in 500 mL 0.9% NaCl FINE GRADE OPERATOR infusion 100-340 mL/hr, Intravenous, CONTINUOUS PRN, After delivery to prevent uterine atony, Starting on Thu06/10/22 at 1104, Give after delivery to prevent uterine atony per provider direction. Administer 340 mL/hr over 30 minutes for a total of 170 mL, then decrease to 100 mL/hr until infusion complete (about 3.5 hours) or per provider direction. Start new bag at delivery. Discontinue or saline lock peripheral IV per nurse discretion. New Bag 06/10/2022 1:46 PM FINE GRADE OPERATOR 340 mL/hr 340 mL/hr succinylcholine (ANECTINE) injection Given 06/10/2022 1:40 PM FINE GRADE OPERATOR 100 mg Intravenous, PRN, Starting on Thu06/10/22 at 1340, Anesthesia Intra-op documented in this encounter Additional Health Concerns Assessment Noted Time PHQ-9 Depression Total Score: 2 01/26/2019 11:18 AM CD T documented as of this encounter Care Teams Tire Molder Relationship Specialty Start Date End Date Justin Loya MD PCP - General Family Practice 02/19/11 [facility] [id number] [place] [id number] Silas Santiago MD MD Pain Clinic 11/29/13 [facility] [address] [facility] [place] [id number] Caden Leone, Assigned Surgical Provider 07/20 01/08 [place] [address] documented as of this encounter
--- OUTSIDE RECORDS SUMMARY | 2022-06-23 17:38 | XMS_ITS | Encounter Summary ---
:1990 Author Organization [facility] Address [address] [place] [address] Care Team Providers Name Role Phone Justin Loya MD Primary Care Provider Silas Santiago MD Unavailable Caden Leone MD Unavailable [phone] Reason for Referral Diagnostic Imaging Ultrasound (Routine) - Pending Review Specialty Diagnoses / Procedures Referred By Contact Refer red To Contact Diagnoses Thrombosis of arm, left Johan Pollard MD Procedures US Upper Extremity Venous Duplex Left [facility] [address] [employer] [address] [place] [address] Referral ID Status Reason Start Date Expiration Date Visits V isits Requested Authorized [id number] Pending 05/30/2022 05/30/2023 1 1 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 Reason for Visit Diagnostic Imaging Ultrasound (Routine) - Pending Review Specialty Diagnoses / Procedures Referred By Contact Refer red To Contact Diagnoses Thrombosis of arm, left Johan Pollard MD Procedures US Upper Extremity Venous Duplex Left [facility] [address] [employer] [address] [place] [address] Referral ID Status Reason Start Date Expiration Date Visits V isits Requested Authorized [id number] Pending 05/30/2022 05/30/2023 1 1 Review Encounter Details Date Type Department Care Team Description 06/02/2022 Hospital Encounter [facility] Johan Pollardosis of arm, [facility] MD Ahmet left [address] [facility] [place], [place] [address] [id number] [facility] [address] [place] [address] Social History Tobacco Use Types Packs/Day Years Used Date Smoking Tobacco: Never Smokeless Tobacco: Never Alcohol Use Standard Drinks/Week Comments No 0 (1 standard drink = 0.6 oz pure alcoho l) Sex Assigned at Date Recorded Not on file COVID-19 Exposure Response Date Recorded In the last 10 days, have you been in contact with No / Unsu re 06/02/2022 5:39 PM 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 documented in this encounter Results US Upper Extremity Venous Duplex Left (06/02/2022 7:01 PM AGENCY SALES DEVELOPMENT ASSOCIATE) Anatomical Region Laterality Modality Extremity Ultrasound Specimen (Source) Anatomical Collection Method Collection Time Re ceived Time Location / / Volume Laterality 06/02/2022 7:01 PM AGENCY SALES DEVELOPMENT ASSOCIATE Impressions 06/02/2022 8:21 PM AGENCY SALES DEVELOPMENT ASSOCIATE IMPRESSION: 1. ??No deep venous thrombosis in the le ft upper extremity. Narrative 06/02/2022 8:21 PM AGENCY SALES DEVELOPMENT ASSOCIATE EXAM: US UPPER EXTREMITY VENOUS DUPLEX LEFT LOCATION: [facility] DATE/TIME: 06/02/2022 INDICATION: Thrombosis of arm, left. His tory of left IJ vein clot. COMPARISON: 05/31/2022 TECHNIQUE: Venous Duplex ultrasound of t he left upper extremity with (when possible) and without compression, augmentation, and duplex. Color flow and spectral Doppler with waveform analysis performed. FINDINGS: Ultrasound includes evaluation of the internal jugular vein, innominate vein, subclavian vein, axillary vein, and brachial vein. The superficial cephalic and basilic veins were also evaluated where seen. LEFT: No deep venous thrombosis. No supe rficial thrombophlebitis. Procedure Note Silas Baker MD - 06/02/2022Forma tting of this note might be different from the original. EXAM: US UPPER EXTREMITY VENOUS DUPLEX L EFT LOCATION: [facility] DATE/TIME: 06/02/2022 INDICATION: Thrombosis of arm, left. His tory of left IJ vein clot. COMPARISON: 05/31/2022 TECHNIQUE: Venous Duplex ultrasound of t he left upper extremity with (when possible) and without compression, augmentation, and duplex. Color flow and spectral Doppler with waveform analysis performed. FINDINGS: Ultrasound includes evaluation of the internal jugular vein, innominate vein, subclavian vein, axillary vein, and brachial vein. The superficial cephalic and basilic veins were also evaluated where seen. LEFT: No deep venous thrombosis. No supe rficial thrombophlebitis. IMPRESSION: 1. No deep venous thrombosis in the left upper extremity. Johan Pollard MD IMG US ORDERABLES documented in this encounter Visit Diagnoses Diagnosis Thrombosis of arm, left documented in this encounter Additional Health Concerns Assessment Noted Time PHQ-9 Depression Total Score: 2 01/26/2019 11:18 AM CD T documented as of this encounter Care Teams Optical Instrument Specialist Relationship Specialty Start Date End Date Justin Loya MD PCP - General Family Practice 02/19/11 [facility] [address] [place] [id number] Silas Santiago MD MD Pain Clinic 11/29/13 [facility] [address] [place] [address] Caden Leone, Assigned Surgical Provider 07/20 01/08 [place] [address] documented as of this encounter
--- OUTSIDE RECORDS SUMMARY | 2022-06-23 17:38 | XMS_ITS | Encounter Summary ---
:1990 Author Organization [facility] Address [facility] [address] Care Team Providers Name Role Phone Justin Loya MD Primary Care Provider Silas Santiago MD Unavailable Caden Leone MD Unavailable [phone] Encounter Details Date Type Department Care Team Description 06/02/2022 Travel Social History Tobacco Use Types Packs/Day Years Used Date Smoking Tobacco: Never Smokeless Tobacco: Never Alcohol Use Standard Drinks/Week Comments No 0 (1 standard drink = 0.6 oz pure alcoho l) Sex Assigned at Date Recorded Not on file COVID-19 Exposure Response Date Recorded In the last 10 days, have you been in contact with No / Unsu re 06/02/2022 5:39 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 documented as of this encounter Plan of Treatment Not on filedocumented as of this encounter Visit Diagnoses Not on filedocumented in this encounter Additional Health Concerns Assessment Noted Time PHQ-9 Depression Total Score: 2 01/26/2019 11:18 AM CD T documented as of this encounter Care Teams Nutritional Chemist Relationship Specialty Start Date End Date Justin Loya MD PCP - General Family Practice 02/19/11 [facility] [address] [place] [address] Silas Santiago MD MD Pain Clinic 11/29/13 [facility] [address] [place], [place] [address] Caden Leone, Assigned Surgical Provider 07/20 01/08 [place] [address] documented as of this encounter
--- OUTSIDE RECORDS SUMMARY | 2022-06-23 17:38 | XMS_ITS | Clinical Summary ---
:1990 Author Organization [place] Address [address] [facility] [place] [address] Care Team Providers Name Role Phone Justin Loya MD Primary Care Provider Silas Santiago MD Unavailable Caden Leone MD Unavailable [phone] Allergies Active Allergy Reactions Severity Noted Date Comments Cephalosporins Hives High 08/17/2015 Ciprofloxacin Unknown 11/01/2016 Nerve pain Other reaction( s): Other (see comments) Cipro - Nerve p ain. Nerve pain Cipro - Nerve p ain. Metoclopramide Anxiety, Other (See Low 02/29/2020 Restle ssness, squirming Comments) Penicillins Hives High 09/22/2011 Hives, swelling of hands/feet PN: rash PN: rash Hives, swelling of hands/feet Pollen Extract Unknown, Other (See 03/31/2013 Season al Allergies - Comments) Sneezing. Seasonal Allerg ies - Sneezing. Medications Medication Sig Dispensed Refills Start End Date Status Date Vit-Fe Take 1 tablet by 0 Active Fumarate-FA mouth daily ( MULTIVITAMIN PLUS IRON) 27-1 MG TABSIndications: polyethylene Take 1 packet by 0 Active glycol (MIRALAX) mouth daily 17 g packet Magnesium 0 Active Hydroxide (MAGNESIA PO) ibuprofen Take 4 tablets 0 Activ e (ADVIL/MOTRIN) 200 (800 mg) by 2 MG mouth every 6 tabletIndications: hours as needed S/P for moderate pain (4-6) oxyCODONE Take 1-2 tablets 20 tablet 0 Act stephanie (ROXICODONE) 5 MG (5-10 mg) by 2 tabletIndications: mouth every 3 S/P hours as needed for moderate to severe pain enoxaparin Inject 0.4 mLs 12 mL 1 07/13/20 Acti ve ANTICOAGULANT (40 mg) 2 22 (LOVENOX) 40 Subcutaneous MG/0.4ML every 24 hours syringeIndications for 30 days : S/P acetaminophen Take 2 tablets 0 A ctive (TYLENOL) 500 MG (1,000 mg) by 2 tabletIndications: mouth every 6 S/P hours ferrous sulfate Take 325 mg by 0 06/13/20 Discontinued (FEROSUL) 325 (65 mouth daily 1 22 (Stop at Fe) MG tablet Discha rge) Active Problems Problem Noted Date S/P 06/10/2022 Labor and delivery indication for care or intervention 03/12/2022 Indication for care in labor or delivery 03/04/2022 Encounter for triage in patient 03/01/2022 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 Johan Pollard DVT (deep vein MD Ahmet thrombosis) in 06/02/2022 Hospital Encounter Radiology. Johan Pollard Thrombosi s of arm, MD Ahmet left 06/02/2022 Travel 05/31/2022 Emergency EMERGENCY Saroj Shafer of finger of MEDICINE MD Cristobal left hand 05/31/2022 Travel 05/29/2022 Hospital Encounter seasonal clerk Faith Pearson MD 05/29/2022 Travel 05/28/2022 Hospital Encounter seasonal clerk Baljinder Lea, DO 05/28/2022 Travel 05/24/2022 Hospital Encounter seasonal clerk Andrew Ramsay MD Harris, Rachel A, MD 05/22/2022 Office Visit Maternal and Andrew Ramsay, Placental a bnormality Medicine MD in third trimester Aly, (Primary Dx) Mellisa Don, DO 05/22/2022 Hospital Encounter Radiology. Andrew Ramsay, Pregn krystina related condition, antepartum Mellisa Lu, DO 05/22/2022 Medical Outside, MATERNAL AND FE JODI Correspondence Provider MEDICINE 05/22/2022 Travel 05/22/2022 Transcribe Orders Maternal and Andrew Ramsay Pregna ncy related Medicine condition, an tepartum (Primary Dx) 05/22/2022 Transcribe Orders Maternal and Andrew Ramsay Pregna ncy related Medicine condition, an tepartum (Primary Dx) 05/21/2022 External Order Lab Outside, Results Provider 05/03/2022 Hospital Encounter seasonal clerk Serafin Wallace MD 05/03/2022 Travel 04/28/2022 Hospital Encounter seasonal clerk Belkis Messina MD 04/28/2022 Travel 04/26/2022 Emergency EMERGENCY Dania Villarreal Pain of right lower MEDICINE MD extremity 04/26/2022 Travel 04/18/2022 Hospital Encounter seasonal clerk Marsha Gardner MD 04/18/2022 Travel 04/08/2022 Hospital Encounter seasonal clerk Faith Pearson MD 04/05/2022 Hospital Encounter seasonal clerk Librado Aguilar for care Karie in labor or del dieudonne Mellisa Hayden (Primary Dx) 04/05/2022 Travel 03/28/2022 Hospital Encounter seasonal clerk Tamie Caba MD 03/26/2022 Medical Scan, Correspondence Non-Provider 03/26/2022 Orders Only Lab Andrew Ramsay, Pre-operati ve cardiovascular examination (Pr imary Dx) from Last 3 Months Immunizations Name Administration Dates Next Due Tdap (Adacel,Boostrix) 06/11/2022 (), 06/10/2022 () Family History Medical History Relation Comments Glaucoma No family hx of Macular Degeneration No family hx of Relation Status Comments Father Alive Mother Alive Social History Tobacco Use Types Packs/Day Years Used Date Smoking Tobacco: Never Smokeless Tobacco: Never Tobacco Cessation: Counseling Given: Not Answered Alcohol Use Standard Drinks/Week Comments No 0 (1 standard drink = 0.6 oz pure alcoho l) Sex Assigned at Date Recorded Not on file COVID-19 Exposure Response Date Recorded In the last 10 days, have you been in contact with No / Unsu re 06/09/2022 8:19 AM MANAGER WATER someone who was confirmed or suspected to have Coronavirus/COVID-19? Last Filed Vital Signs Vital Sign Reading Time Taken Comments Blood Pressure 113/69 06/13/2022 9:00 AM MANAGER WATER Pulse 80 06/13/2022 9:00 AM MANAGER WATER Temperature 36.4 ??C (97.6 ??F) 06/13/2022 9:00 AM MANAGER WATER Respiratory Rate 16 06/13/2022 9:00 AM MANAGER WATER Oxygen Saturation 100% 06/11/2022 8:00 AM MANAGER WATER Inhaled Oxygen Concentration - - Weight 76.2 kg (168 lb) 06/10/2022 11:08 AM MANAGER WATER Height 170.2 cm (5' 7) 06/10/2022 11:08 AM MANAGER WATER Body Mass Index 26.31 06/10/2022 11:08 AM MANAGER WATER Plan of Treatment Health Maintenance Due Date Last Done Comments ANNUAL REVIEW OF HM ORDERS 1990 COVID-19 Vaccine (#1) 06/26/1991 PAP 12/26/2011 DTAP/TDAP/TD IMMUNIZATION 09/22/2018 09/22/2008, 01/03/2003 , (5 - Td or Tdap) 03/04/1996, Additional history exists MENTAL HEALTH TX PLAN 12/28/2019 01/26/2019 MARIA R ASSESSMENT 01/18/2020 01/17/2019, 01/17/2019 PHQ-9 01/18/2020 01/17/2019, 01/17/2019, 01/11/2018 PHQ-2 (once per calendar 07/20/2021 08/29/2019, 01/17/2019, year) 01/11/2018, Additional history exists INFLUENZA VACCINE (#1) 2022 08/30/2019 (Declined) YEARLY PREVENTIVE VISIT 06/05/2022 06/05/2021 ADVANCE CARE PLANNING 08/17/2023 08/17/2018 IPV IMMUNIZATION Completed 03/04/1996, 08/27/1992, 04/26/1991, Additional history exists HEPATITIS B IMMUNIZATION Completed 04/28/2003, 11/07/2002, 10/06/2002 MAMMO SCREENING Discontinued 05/24/2008 MENINGITIS IMMUNIZATION Completed 09/22/2008 HEPATITIS C SCREENING Completed 11/08/2021 HIV SCREENING Completed 11/08/2021, 11/23/2013 Pneumococcal Vaccine: Aged Out No longer eligible Pediatrics (0 to 5 Years) based on patient's age and At-Risk Patients (6 to to co mplete this topic 64 Years) Procedures Procedure Name Priority Date/Time Associated Diagnosis Comme nts URINE CULTURE Routine 06/19/2022 4:39 Dysuria Results for this PM MANAGER WATER procedure are i n the results section. PLATELET COUNT Routine 06/13/2022 8:17 Results fo r this AM MANAGER WATER procedure are i n the results section. HEMOGLOBIN Routine 06/11/2022 8:05 Results for this AM MANAGER WATER procedure are i n the results section. PLATELET COUNT Routine 06/10/2022 4:18 Results fo r this PM MANAGER WATER procedure are i n the results section. CREATININE Routine 06/10/2022 4:18 Results for this PM MANAGER WATER procedure are i n the results section. ANE Routine 06/10/2022 2:49 Results for this PERIPHERAL/PARAVETEB PM MANAGER WATER procedu re are in RAL BLOCK the results section. ANE AIRWAY ETT Routine 06/10/2022 1:41 Results fo r this PERFORMABLE PM MANAGER WATER procedure are i n the results section. SECTION 06/10/2022 1:24 Previous PM MANAGER WATER section COVID-19 VIRUS STAT 06/10/2022 11:30 Results f or this (CORONAVIRUS) BY PCR AM MANAGER WATER procedu re are in the results section. ABO/RH TYPE AND Routine 06/09/2022 8:43 Pre-operative Results for this SCREEN AM MANAGER WATER cardiovascular procedure are in examination the results section. TYPE AND SCREEN, Routine 06/09/2022 8:43 Pre-operative Results for this ADULT AM MANAGER WATER cardiovascular procedure are in examination the results section. TREPONEMA ABS W STAT 06/09/2022 8:43 Pre-operative Results for this REFLEX TO RPR AND AM MANAGER WATER cardiovascular procedur e are in TITER examination the results section. HEMOGLOBIN Routine 06/09/2022 8:43 Pre-operative Results for this AM MANAGER WATER cardiovascular procedure are in examination the results section. US LOWER EXTREMITY STAT 06/02/2022 7:02 DVT (deep vein Resu lts for this VENOUS DUPLEX RIGHT PM MANAGER WATER thrombosis) in proced ure are in the results section. US UPPER EXTREMITY Routine 06/02/2022 7:01 Thrombosis of arm, Results for this VENOUS DUPLEX LEFT PM MANAGER WATER left procedure are in the results section. US UPPER EXTREMITY STAT 05/31/2022 10:14 Resul ts for this VENOUS DUPLEX LEFT PM MANAGER WATER procedure are in the results section. NON-STRESS 05/29/2022 12:00 TEST - HIM SCAN AM MANAGER WATER RUPTURE OF STAT 05/28/2022 2:23 Results for this MEMBRANES BY ROM AM MANAGER WATER procedure a re in PLUS the results section. WET PREPARATION STAT 05/28/2022 12:36 Results for this AM MANAGER WATER procedure are i n the results section. RUPTURE OF STAT 05/28/2022 12:36 Results for this MEMBRANES BY ROM AM MANAGER WATER procedure a re in PLUS the results section. NON-STRESS 05/28/2022 12:00 TEST - HIM SCAN AM MANAGER WATER URINE CULTURE STAT Add-on 05/24/2022 2:09 Results for this PM CDT procedure are i n the results section. ROUTINE UA WITH Routine 05/24/2022 2:09 Results f or this MICROSCOPIC PM CDT procedure are i n the results section. RUPTURE OF STAT 05/24/2022 1:59 Results for this MEMBRANES BY ROM PM CDT procedure a re in PLUS the results section. NON-STRESS 05/24/2022 12:00 TEST - HIM SCAN AM CDT MFM US COMPREHENSIVE Routine 05/22/2022 11:50 relate d Results for this SINGLE AM CDT condition, antepartum proced ure are in the results section. HEMOGLOBIN Routine 05/21/2022 12:00 Results for this AM CDT procedure are i n the results section. GROUP B STREP PCR Routine 05/16/2022 3:46 Encounter for Result s for this PM CDT supervision of other procedu re are in normal , the result s third trimester section. BILE ACIDS Routine 05/13/2022 4:06 Pruritus, unspecified Res ults for this FRACTIONATED AND PM CDT procedure a re in TOTAL the results section. HEPATIC FUNCTION Routine 05/13/2022 4:06 Pruritus, unspecified Results for this PANEL PM CDT procedure are i n the results section. ROUTINE UA WITH Routine 04/28/2022 9:13 Results f or this MICROSCOPIC REFLEX PM CDT procedure are in TO CULTURE the results section. NON-STRESS 04/28/2022 12:00 TEST - HIM SCAN AM CDT US LOWER EXTREMITY STAT 04/26/2022 8:43 Result s for this VENOUS DUPLEX RIGHT AM CDT procedur e are in the results section. BILE ACIDS Routine 04/16/2022 4:04 Pruritus, unspecified Res ults for this FRACTIONATED AND PM CDT procedure a re in TOTAL the results section. HEMOGLOBIN Routine 04/16/2022 4:04 Pruritus, unspecified Res ults for this PM CDT procedure are i n the results section. COMPREHENSIVE Routine 04/16/2022 4:04 Pruritus, unspecified Re sults for this METABOLIC PANEL PM CDT procedure ar e in the results section. NON-STRESS 04/08/2022 12:00 TEST - HIM SCAN AM CDT NON-STRESS 04/08/2022 12:00 TEST - HIM SCAN AM CDT URINE CULTURE STAT 04/05/2022 10:40 Results fo r this AM CDT procedure are i n the results section. ROUTINE UA WITH STAT 04/05/2022 10:40 Results for this MICROSCOPIC REFLEX AM CDT procedure are in TO CULTURE the results section. NON-STRESS 04/05/2022 12:00 TEST - HIM SCAN AM CDT WET PREPARATION Routine 03/28/2022 8:54 Results f or this PM CDT procedure are i n the results section. NON-STRESS 03/28/2022 12:00 TEST - HIM SCAN AM CDT GLUCOSE TOLERANCE Routine 03/26/2022 8:56 Encounter for other Results for this GEST SCREEN 1 HOUR AM CDT specified pr ocedure are in screening the results section. HEMOGLOBIN Routine 03/26/2022 8:56 Encounter for other Resul ts for this AM CDT specified procedur e are in screening the results section. RAPID PLASMA REAGIN Routine 03/26/2022 8:56 Encounter for othe r Results for this W RFLX TO TITER AM CDT specified proce dure are in screening the results section. from Last 3 Months Results (ABNORMAL) Urine Culture (06/19/2022 4:39 PM MANAGER WATER)Only the most recent of3 resultswithin the time period is included. [facility] gist Method Time Signature Culture 10,000-50,000 CARLOS 06/22/2022 UU IDD CFU/mL 3:52 AM MANAGER WATER LABORATORY Escherichia coli (A) Culture 10,000-50,000 06/22/2022 UU IDD CFU/mL 3:52 AM MANAGER WATER LABORATORY Enterococcus faecalis (A) Specimen Anatomical Collection Method Collection Time Receive d Time (Source) Location / / Volume Laterality Urine TOPOGRAPHY UNKNOWN Non-blood 06/19/2022 4:39 PM 07/2021 9:50 / Unknown Collection / MANAGER WATER PM MANAGER WATER Unknown Organism Antibiotic Method Susceptibility Escherichia coli Ampicillin CARLOS <=2 ug/mL: Susc eptible Escherichia coli Ampicillin/ Sulbactam CARLOS <=2 ug/mL : Susceptible Escherichia coli Piperacillin/Tazobactam CARLOS <=4 ug/ mL: Susceptible Escherichia coli Cefazolin CARLOS <=4 ug/mL: Susc eptible Comment: Cefazolin CARLOS break points are for the treatment of uncomplicated urinary tract infections. For the tr eatment of systemic infections, please contact the laboratory for additional te sting. Escherichia coli Cefoxitin CARLOS <=4 ug/mL: Susc eptible Escherichia coli Ceftazidime CARLOS <=1 ug/mL: Susc eptible Escherichia coli Ceftriaxone CARLOS <=1 ug/mL: Susc eptible Escherichia coli Cefepime CARLOS <=1 ug/mL: Susc eptible Escherichia coli Gentamicin CARLOS <=1 ug/mL: Susc eptible Escherichia coli Tobramycin CARLOS <=1 ug/mL: Susc eptible Escherichia coli Ciprofloxacin CARLOS <=0.25 ug/mL: S usceptible Escherichia coli Levofloxacin CAROLS <=0.12 ug/mL: S usceptible Escherichia coli Nitrofurantoin CARLOS <=16 ug/mL: Zohra ceptible Escherichia coli Trimethoprim/Sulfamethoxazole CARLOS < =1/19 ug/mL: Susceptible Enterococcus faecalis Penicillin CARLOS 2 ug/mL: S usceptible Enterococcus faecalis Ampicillin CARLOS <=2 ug/mL: Susceptible Enterococcus faecalis Vancomycin CARLOS 1 ug/mL: S usceptible Enterococcus faecalis Nitrofurantoin CARLOS <=16 ug/mL : Susceptible Tamie Caba MD LAB - MICRO GENERAL ORDERABL ES Performing Organization Address City/State/ZIP Code Phon e Number UU IDD LABORATORY [facility] [place] [phone] Diag. Lab [address] [facility], [address] Platelet count (06/13/2022 8:17 AM MANAGER WATER)Only the most recent of2 resultswithin the time period is included. athologist Signature Platelet Count 242 150 - 450 06/13/2022 LABORATORY 10e3/uL 8:55 AM MANAGER WATER Specimen Anatomical Collection Method / Collection Time Recei ching Time (Source) Location / Volume Laterality Blood STRUCTURE OF RIGHT Venipuncture / 06/13/2022 8:17 /2 11/2021 8:51 UPPER LIMB / Unknown AM MANAGER WATER AM MANAGER WATER Unknown Andrew Ramsay MD LAB - BLOOD ORDERABLES Performing Organization Address City/[facility]/ZIP Code Phon [place] [address] [phone] Care Lab [address] 1[address] floor, Room [address] (ABNORMAL) Hemoglobin (06/11/2022 8:05 AM MANAGER WATER)Only the most recent of5 results within the time period is included. athologist Signature Hemoglobin 9.3 (L) 11.7 - 15.7 06/11/2022 LABORATORY g/dL 8:33 AM MANAGER WATER Specimen Anatomical Collection Method / Collection Time Recei ching Time (Source) Location / Volume Laterality Blood STRUCTURE OF RIGHT Venipuncture / 06/11/2022 8:05 /09/2021 8:27 UPPER LIMB / Unknown AM MANAGER WATER AM MANAGER WATER Unknown Andrew Ramsay MD LAB - BLOOD ORDERABLES Performing Organization Address City/State/ZIP Code Phon [place] [address] [phone] Care Lab [address] 1[address] floor, Room [address]B (ABNORMAL) Creatinine (06/10/2022 4:18 PM MANAGER WATER) P athologist Signature Creatinine 0.51 (L) 0.52 - 06/10/2022 LABORATORY 1.04 mg/dL 4:42 PM MANAGER WATER GFR Estimate >90 >60 06/10/2022 LABORATORY mL/min/1.7 4:42 PM MANAGER WATER 3m2 Comment: Effective July 09, 2021 eGF Rcr in adults is calculated using the 2020 CKD-EPI creatinine equation which includ es age and gender (Forklift Technician et al., NEJM, DOI: 10.1056/BRWOfe6510574) Specimen Anatomical Collection Method / Collection Time Recei ching Time (Source) Location / Volume Laterality Blood STRUCTURE OF LEFT Venipuncture / 06/10/2022 4:18 06/10 4:23 UPPER LIMB / Unknown PM MANAGER WATER PM MANAGER WATER Unknown Andrew Ramsay MD LAB - BLOOD ORDERABLES Performing Organization Address City/State/ZIP Code Phon e Number [place] [address] Care Lab [address] 1[address] floor, Room [address] Peripheral/Paravertebral Block (06/10/2022 2:49 PM MANAGER WATER) Narrative Van Hou MD - 06/10/2022 2:49 PM MANAGER WATER Van Hou MD ? 06/10/2022 ??2:50 PM TAP Procedure [...] nor qualified to perform this procedure. FOR [facility] ([place]) ONLY: ?? Pain Team Contact information: please page the Pain Team Via [employer] Search [employer] in. During daytime hours, please page the attending first. At night suki hutton page the resident first. Van Hou MD [place] ANESTHESIA ANE AIRWAY ETT PERFORMABLE (06/10/2022 1:41 PM MANAGER WATER) Narrative Bridgette Harris APRN PARAMEDIC - 06/10 1:41 PM MANAGER WATER Bridgette Harris APRN PARAMEDIC ? 06/10/2022 ??1:52 PM Airway ? Patient location during procedure : OR ? Procedure Start/Stop Times: 06/10 1:41 PM Staff - ? Anesthesiologist: ??Cindi Hou MD ? PARAMEDIC: Bridgette Harris APRN CRNA ? Performed By: anesthesiologist an breana PARAMEDIC Consent for Airway ? Urgency: elective Indications [...] Time: 06/10/20 1:41 PM Van Hou MD [place] ANESTHESIA Asymptomatic COVID-19 Virus (Coronavirus) by PCR Nasopharyngeal (06/10/2022 11:30 AM MANAGER WATER) Analysis Performed At Patho logist Time Signature SARS CoV2 PCR Negative Negative 06/10/2022 LABORATORY 12:37 PM MANAGER WATER Comment: NEGATIVE: SARS-CoV-2 (COVID-19) RNA not detected, presumed negative. Specimen Anatomical Location / Collection Method Collection Ignacio e Received Time (Source) Laterality / Volume Swab NASOPHARYNGEAL Non-blood 06/10/2022 11:30 2 STRUCTURE / Unknown Collection / AM MANAGER WATER 11:51 AM MANAGER WATER Unknown Narrative LABORATORY - 06/10/2022 12:37 PM MANAGER WATER Testing was performed using the Xpert Xpress SARS-CoV-2 Assay on the [employer]. Additional information about this Emergency [...] COVID-19. This test was validated by the [facility]. This laboratory is certified under the Clinical Laboratory Improvement Amendments (CLIA) as qualified to perform high complexity laboratory testing. Andrew Ramsay MD LAB - MICRO GENERAL ORDERABL ES Performing Organization Address City/State/ZIP Code Phon e Number LABORATORY [facility] [place] [address] Care Lab [address], Room [address] Adult Type and Screen (06/09/2022 8:43 AM MANAGER WATER) Patholo gist Method Time Signature ABO/RH(D) A POS 06/08/2022 SH BLOOD 6:00 PM MANAGER WATER BANK Antibody Negative Negative 06/08/2022 SH BLOOD Screen 6:00 PM MANAGER WATER BANK SPECIMEN [id number] 06/08/2022 SH BLOOD EXPIRATION 6:00 PM MANAGER WATER BANK DATE Specimen Anatomical Collection Method / Collection Time Recei ching Time (Source) Location / Volume Laterality Blood STRUCTURE OF RIGHT Venipuncture / 06/09/2022 8:43 05/21 8:44 UPPER LIMB / Unknown AM MANAGER WATER AM MANAGER WATER Unknown Andrew Ramsay MD LAB - BLOOD BANK TEST ORDER Performing Organization Address City/State/ZIP Code Phon e Number BLOOD BANK [address] [place] [address] Treponema Abs w Reflex to RPR and Titer (06/09/2022 8:43 AM MANAGER WATER) [facility] gist Method Time Signature Treponema Nonreactive Nonreactive 06/09/2022 [facility] Antibody 11:50 AM MANAGER WATER CORE/PROT/EN Total DO Specimen Anatomical Collection Method / Collection Time Recei ching Time (Source) Location / Volume Laterality Blood STRUCTURE OF RIGHT Venipuncture / 06/09/2022 8:43 05/21 8:44 UPPER LIMB / Unknown AM MANAGER WATER AM MANAGER WATER Unknown Andrew Ramsay MD LAB - BLOOD ORDERABLES Performing Organization Address City/State/ZIP Code Phon e Number [facility] CORE/PROT/ENDO [facility] [place] [address] Core/Prot/Endo [address] [facility] [address], Room 3-[facility] US Lower Extremity Venous Duplex Right (06/02/2022 7:02 PM MANAGER WATER)Only the most recent of2 resultswithin the time period is included. Anatomical Region Laterality Modality Lower Extremity Ultrasound Specimen (Source) Anatomical Collection Method Collection Time Re ceived Time Location / / Volume Laterality 06/02/2022 7:02 PM MANAGER WATER Impressions 06/02/2022 7:16 PM MANAGER WATER IMPRESSION: 1. ??No deep venous thrombosis in the ri ght lower extremity. Narrative 06/02/2022 7:16 PM MANAGER WATER EXAM: US LOWER EXTREMITY VENOUS DUPLEX RIGHT LOCATION: [facility] DATE/TIME: 06/02/2022 INDICATION: ??DVT (deep vein [...] EXAM: [facility] DATE/TIME: 06/02/2022 INDICATION: DVT (deep vein [...] 1. No deep venous thrombosis in the [facility] t lower extremity. Johan Pollard MD IMG US ORDERABLES US Upper Extremity Venous Duplex Left (06/02/2022 7:01 PM MANAGER WATER)Only the most recent of2 resultswithin the time period is included. Anatomical Region Laterality Modality Extremity Ultrasound Specimen (Source) Anatomical Collection Method Collection Time Re ceived Time Location / / Volume Laterality 06/02/2022 7:01 PM MANAGER WATER Impressions 06/02/2022 8:21 PM MANAGER WATER IMPRESSION: 1. ??No deep venous thrombosis in the le ft upper extremity. Narrative 06/02/2022 8:21 PM MANAGER WATER EXAM: US UPPER EXTREMITY VENOUS DUPLEX LEFT LOCATION: [facility] DATE/TIME: 06/02/2022 INDICATION: Thrombosis of arm, [...] UPPER EXTREMITY VENOUS DUPLEX L EFT LOCATION: [facility] DATE/TIME: 06/02/2022 INDICATION: Thrombosis of arm, [...] extremity. Johan Pollard MD IMG US ORDERABLES NON-STRESS TEST - HIM SCAN (05/29/2022 12:00 AM MANAGER WATER) Specimen (Source) Anatomical Location Collection Method / Collectio n Time Received Time / Laterality Volume 05/29/2022 Narrative This result has an attachment that is no t available. Provider Outside PROCEDURES Rupture of Membranes by ROM Plus (05/28/2022 2:23 AM MANAGER WATER)Only the most recent of3 resultswithin the time period is included. [facility] Method Time Signature Rupture of Negative Negative, CARLOS 05/28/2022 LABORATORY Invalid, 2:57 AM MANAGER WATER Membranes by Suggest ROM Plus Repeat Specimen Anatomical Location Collection Method Collection Time Received Time (Source) / Laterality / Volume Swab ENDOCERVICAL Non-blood 05/28/2022 2:23 05/28/2022 2 :31 STRUCTURE / Unknown Collection / AM MANAGER WATER AM MANAGER WATER Unknown Narrative LABORATORY - 05/28/2022 2:57 AM MANAGER WATER It is recommended that the tests to dete ct rupture of the amniotic membranes should not be used without other clinical asses sments to make clinical patient management decision. Baljinder Lea DO LAB - BODY FLUIDS ORDERABLES Performing Organization Address City/State/ZIP Code Phon e Number [place] [address] Care Lab [address] 1[address] floor, Room [address]B (ABNORMAL) Wet prep (05/28/2022 12:36 AM MANAGER WATER)Only the most recent of2 results within the time period is included. [facility] Method Time Signature Trichomonas Absent Absent CARLOS 05/28/2022 LABORATORY 1:23 AM MANAGER WATER Yeast Absent Absent CARLOS 05/28/2022 LABORATORY 1:23 AM MANAGER WATER Clue Cells Present (A) Absent CARLOS 05/28/2022 LABORATORY 1:23 AM MANAGER WATER WBCs/high power 4+ (A) None CARLOS 05/28/2022 LABORATORY field 1:23 AM MANAGER WATER Specimen Anatomical Collection Method Collection Time Receive d Time (Source) Location / / Volume Laterality Swab VAGINAL STRUCTURE Non-blood 05/28/2022 12:36 2021 1:07 / Unknown Collection / AM MANAGER WATER AM MANAGER WATER Unknown Baljinder Lea DO LAB - MICRO GENERAL ORDERABL ES Performing Organization Address City/[facility]/ZIP Code Phon [place] [address] [phone] Care [facility] [address] 1st floor, Room 20B NON-STRESS TEST - HIM SCAN (05/28/2022 12:00 AM MANAGER WATER) Specimen (Source) Anatomical Location Collection Method / Collectio n Time Received Time / Laterality Volume 05/28/2022 Narrative This result has an attachment that is no t available. Provider Outside PROCEDURES (ABNORMAL) UA with Microscopic (05/24/2022 2:09 PM CDT) [facility] Method Time Signature Color Urine Light Colorless, 05/24/2022 LABORATORY Yellow Straw, 2:55 PM CDT Light Yellow, Yellow Appearance Urine Slightly Clear 05/24/2022 LABORATOR Y Cloudy (A) 2:55 PM CDT Glucose Urine Negative Negative 05/24/2022 LABORATORY mg/dL 2:55 PM CDT Bilirubin Urine Negative Negative 05/24/2022 LABORATORY 2:55 PM CDT Ketones Urine Negative Negative 05/24/2022 LABORATORY mg/dL 2:55 PM CDT Specific [place] 1.020 1.003 - 05/24/2022 LABORATOR Y Urine 1.035 2:55 PM CDT Blood Urine Negative Negative 05/24/2022 LABORATORY 2:55 PM CDT pH Urine 7.5 (H) 5.0 - 7.0 05/24/2022 LABORATORY 2:55 PM CDT Protein Albumin 20 (A) Negative 05/24/2022 LABORATORY Urine mg/dL 2:55 PM CDT Urobilinogen Normal Normal, 2.0 05/24/2022 LABORATORY Urine mg/dL 2:55 PM CDT Nitrite Urine Negative Negative 05/24/2022 LABORATORY 2:55 PM CDT Leukocyte Large (A) Negative 05/24/2022 LABORATORY Esterase Urine 2:55 PM CDT Bacteria Urine Few (A) None Seen 05/24/2022 LABORATORY /HPF 2:55 PM CDT RBC Urine 1 <=2 /HPF 05/24/2022 LABORATORY 2:55 PM CDT WBC Urine 123 (H) <=5 /HPF 05/24/2022 LABORATORY 2:55 PM CDT Squamous 17 (H) <=1 /HPF 05/24/2022 LABORATORY Epithelials 2:55 PM CDT Urine Specimen Anatomical Collection Method Collection Time Receive d Time (Source) Location / / Volume Laterality Urine MID-STREAM URINE Non-blood 05/24/2022 2:09 PM 05/24 2:14 SPECIMEN / Unknown Collection / CDT PM CDT Unknown Faith Pearson MD LAB - URINE ORDERABLES Performing Organization Address City/State/ZIP Code Phon e Number [place] [address] [facility] [place] Lab [address] 1st floor, Room 20B NON-STRESS TEST - HIM SCAN (05/24/2022 12:00 AM CDT) Specimen (Source) Anatomical Location Collection Method / Collectio n Time Received Time / Laterality Volume 05/24/2022 Narrative This result has an attachment that is no t available. Provider Outside PROCEDURES [facility] US Comprehensive Single (05/22/2022 11:50 AM CDT) Anatomical Region Laterality Modality Ultrasound Specimen (Source) Anatomical Collection Method Collection Time Re ceived Time Location / / Volume Laterality 05/22/2022 11:10 AM CDT Impressions 05/22/2022 2:08 PM CDT IMPRESSION 1) Intrauterine at 36 4/7 week s gestational age in the cephalic presentation. 2) None of the anomalies commonly detect ed by ultrasound were evident in the detailed anatomic survey described above, however the ultrasound is suboptimal due to advanced gestational age. 3) Growth parameters and estimated weight were consistent with an appropriate for gestation age pattern of growth. The FL is lagging, but not in the range concerning for a severe skeletal dysplasia. 4) The amniotic fluid volume measured no rmally. 5) Anterior placenta (not low lying or n ear prior uterine incision). Normal appearing uteroplacental interface without bridging vessels. Small intervillous thrombi. No vascular lacunae. No sonographic features concern ing for placenta accreta spectrum. Narrative 05/22/2022 2:08 PM CDT Comprehensive Pat. Name: DESTINEY HUFF Study Date: 07/22/2021 11:10am Pat. NO: [id number] Referring ??MD: ANDREW RAMSAY [facility] Janusz Booker RDMS : 1990 Age: 31 INDICATION New referral for suspected placenta accr eta. METHOD Transabdominal ultrasound examination. V iew: Suboptimal view: limited by late gestational age Valles . Number of fetuses: 1 DATING ? Date ?Details ?Gest. age ?ANDRE LMP ?09/08/2021 ? 36 w + 4 d ? 06/15/2022 Prior assessment ? GA: 7 w + 3 d ?36 w + 4 d ? 06/15/2022 U/S ? 05/22/2022 ? based upon AC, BPD, Femur, HC ? 36 w + 2 d ? 06/17/2022 Assigned dating ?Dating performed on 05/22/2022, based on the LMP ?36 w + 4 d ? 06/15/2022 GENERAL EVALUATION Cardiac activity present. FHR 121 bpm. movements present. Presentation cephalic. Placenta Anterior, No Previa, > 2 cm fro m internal os, known marginal cord insertion. Umbilical cord 3 vessel cord. Amniotic fluid Amount of AF: normal. MVP 6.0 cm. BIOMETRY Main Biometry: BPD ?93.1 ?mm ? 37w 6d ?Hadisabela PEDERSON ?115.1 ?mm ?36w 1d ?Nicolaides HC ?332.1 ?mm ?37w 6d ?Hadlock AC ?321.6 ?mm ?36w 1d ?48% ?Hadlock Femur ?64.8 ? mm ?33w 3d ?Hadlock Humerus ?58.3 ?mm ? 33w 5d ?Deepa Weight Calculation: EFW ? 2,764 ?g ? 33% ?Hadlock EFW (lb,oz) ? 6 lb 1 ?oz EFW by ?Hadlock ([id number]) Head / Face / Neck Biometry: Seismic Prospecting Supervisor ? 6.2 ? mm ANATOMY The following structures appear normal: Head / Neck ? Cranium. Head size. Head shape. Lateral ventricles. Midline falx. Cavum septi pellucidi. Parenchyma. Thalami. ? Neck. Face ? Lips. Profile. Nose. Maxilla. Mandible. Orbits. Heart / Thorax ?RVOT view. LVOT view. Situs. 9-elqbyx-vgbnroj view. Cardiac position. Cardiac size. Cardiac rhythm. ? Diaphragm. Abdomen ? Abdominal wall. Cord insertion. Stomach. Kidneys. Bladder. Liver. Bowel. Spine ?Cervical spine. Thoracic spine. Lumbar spine. Sacral spine. The following structures could not be ad equately visualized: Head / Neck ? Choroid plexus. Face ? Lens. Heart / Thorax ?4-chamber view. 3-vessel view. ? Right lung. Left lung. Extremities / Skeleton ?Rig ht arm. Right hand. Left arm. Right leg. Right foot. Left leg. Left foot. The following structures could not be vi sualized: Head / Neck ? Cerebellum. Cisterna magna. Vermis. Heart / Thorax ?Aortic arch view. Bicaval view. Ductal arch view. Superior vena cava. Inferior vena cava. Abdomen ? Genitals. Extremities / Skeleton ?Lef t hand. Gender: male. MATERNAL STRUCTURES Cervix ?Not visualized Right Ovary ?Not examined Left Ovary ?Not examined RECOMMENDATION We discussed the findings on today's [facility] with the patient. 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 The finding was concerning for possible placenta accreta spectrum. We r eviewed that while US cannot definitely exclude abnormal placentation, Destiney does not have risk factors or US features suggestive of this spectrum. While she h as had one prior CD, the anterior placenta is not implanted over the lower uterine segment at all. She has not had a D&C, ablation or embolization. We reviewed that US can not exclude a focal accreta, but I again see no concerns based on today's imaging. We also reviewed the normal growth pattern. Destiney was concerned about the lagging FL. Discussed that it is very common for the the fetus to put on more weight in the abdomen/head and there is less linea r growth in the 3rd trimester. The FL at the 1%ile is not indicative of a skeletal dysplasia. The couple is overall reassured by today 's US findings. She is planning a repeat CD at . Patient will plan for lovenox 6 weeks due to her history of a provoked DVT. Return to primary provider for continued care. Thank you for the opportunity to partici seda in the care of this patient. If you have questions regarding today's evaluation or if we can be of further service, please contact the [facility]. anomalies may be present but not detected Procedure Note Mellisa Lu, - 05/22/2022 Comprehensive Pat. Name:Samra HUFF Date:09/2021 11:10am Pat. NO: [id number] MD:ANDREW ARZATE [facility]Shun Arevalo :1990Age:31 INDICATION New referral for suspected placenta accr eta. METHOD Transabdominal ultrasound examination. V iew: Suboptimal view: limited by late gestational age Valles . Number of fetuses: 1 DATING Date Details Gest. age ANDRE LMP 09/08/2021 36 w + 4 d 06/15/2022 Prior assessment 10/30/2021 GA: 7 w + 3 d 36 w + 4 d 06/15/2022 U/S 05/22/2022 based upon AC, BPD, Femur, HC 36 w + 2 d 06/17/2022 Assigned dating Dating performed on 05/22, based on the LMP 36 w + 4 d 06/15/2022 GENERAL EVALUATION Cardiac activity present. FHR 121 bpm. movements present. Presentation cephalic. Placenta Anterior, No Previa, > 2 cm fro m internal os, known marginal cord insertion. Umbilical cord 3 vessel cord. Amniotic fluid Amount of AF: normal. MVP 6.0 cm. BIOMETRY Main Biometry: BPD 93.1 mm 37w 6d Hadlock OFD 115.1 mm 36w 1d Nicolaides HC 332.1 mm 37w 6d Hadlock AC 321.6 mm 36w 1d 48% Hadlock Femur 64.8 mm 33w 3d Hadlock Humerus 58.3 mm 33w 5d Deepa Weight Calculation: EFW 2,764 g 33% Hadlock EFW (lb,oz) 6 lb 1 oz EFW by Hadlock ([id number]) Head / Face / Neck Biometry: Seismic Prospecting Supervisor 6.2 mm ANATOMY The following structures appear normal: Head / Neck Cranium. Head size. Head sha pe. Lateral ventricles. Midline falx. Cavum septi pellucidi. Parenchyma. Thalami. Neck. Face Lips. Profile. Nose. Maxilla. Katharina ble. Orbits. Heart / Thorax RVOT view. LVOT view. Sit us. 5-wwjmkg-esltazx view. Cardiac position. Cardiac size. Cardiac rhythm. Diaphragm. Abdomen Abdominal wall. Cord insertion. Stomach. Kidneys. Bladder. Liver. Bowel. Spine Cervical spine. Thoracic spine. Carolyn mbar spine. Sacral spine. The following structures could not be ad equately visualized: Head / Neck Choroid plexus. Face Lens. Heart / Thorax 4-chamber view. 3-vessel view. Right lung. Left lung. Extremities / Skeleton Right arm. Right hand. Left arm. Right leg. Right foot. Left leg. Left foot. The following structures could not be vi sualized: Head / Neck Cerebellum. Cisterna magna. Vermis. Heart / Thorax Aortic arch view. Bicaval view. Ductal arch view. Superior vena cava. Inferior vena cava. Abdomen Genitals. Extremities / Skeleton Left hand. Gender: male. MATERNAL STRUCTURES Cervix Not visualized Right Ovary Not examined Left Ovary Not examined RECOMMENDATION We discussed the findings on today's [facility] with the patient. 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 The finding was concerning for possible placenta accreta spectrum. We r eviewed that while US cannot definitely exclude abnormal placentation, Destiney does not have risk factors or US features suggestive of this spectrum. While she h as had one prior CD, the anterior placenta is not implanted over the lower uterine segment at all. She has not had a D&C, ablation or embolization. We reviewed that US can not exclude a focal accreta, but I again see no concerns based on today's imaging. We also reviewed the normal growth pattern. Destiney was concerned about the lagging FL. Discussed that it is very common for the the fetus to put on more weight in the abdomen/head and there is less linea r growth in the 3rd trimester. The FL at the 1%ile is not indicative of a skeletal dysplasia. The couple is overall reassured by today 's US findings. She is planning a repeat CD at . Patient will plan for lovenox 6 weeks due to her history of a provoked DVT. Return to primary provider for continued care. Thank you for the opportunity to partici seda in the care of this patient. If you have questions regarding today's evaluation or if we can be of further service, please contact the [facility]. anomalies may be present but not detected IMPRESSION 1) Intrauterine at 36 4/7 week s gestational age in the cephalic presentation. 2) None of the anomalies commonly detect ed by ultrasound were evident in the detailed anatomic survey described above, however the ultrasound is suboptimal due to advanced gestational age. 3) Growth parameters and estimated weight were consistent with an appropriate for gestation age pattern of growth. The FL is lagging, but not in the range concerning for a severe skeletal dysplasia. 4) The amniotic fluid volume measured no rmally. 5) Anterior placenta (not low lying or n ear prior uterine incision). Normal appearing uteroplacental interface without bridging vessels. Small intervillous thrombi. No vascular lacunae. No sonographic features concern ing for placenta accreta spectrum. Andrew Ramsay MD [facility] US ORDERABLES Group B strep PCR (05/16/2022 3:46 PM CDT) Analysis Performed At Patho logist Time Signature Group B Strep Negative Negative 05/18/2022 [facility] PCR 9:02 AM CDT LABORATORY Comment: Presumed negative for Streptoco ccus agalactiae (Group B Streptococcus) or the number of organisms may be below the limit of detection of the assay. Specimen Anatomical Location Collection Method Collection Time Received Time (Source) / Laterality / Volume Swab ENDOCERVICAL Non-blood 05/16/2022 3:46 05/17/2022 8 :15 STRUCTURE / Unknown Collection / PM CDT AM CDT Unknown Narrative [facility] LABORATORY - 05/18/2022 9:02 AM C DT The [employer] Xpert GBS LB Assay, performe d on the [employer], is a qualitative in vitro diagnostic test abeba igned to detect Group B Streptococcus (GBS) DNA from enriched vaginal/rectal swab sp ecimens, using fully automated, real-time polymerase chain reaction (PCR) with flu orogenic detection of the amplified DNA. Xpert GBS LB Assay testing is indicated as an aid in determining GBS colonization status in antepartum women. This assay d oes not diagnose or monitor treatment for GBS infections. The [employer] Xpert GBS LB Ass ay is intended for use in hospital, reference or state laboratory settings. The device is not intended for [id number] use. Andrew Ramsay MD LAB - MICRO GENERAL ORDERABL ES Performing Organization Address City/State/ZIP Code Phon e Number [facility] LABORATORY [facility] [place] [phone] Diag. Lab [address] [facility], [address] Bile acids fractionated and total (05/13/2022 4:06 PM CDT)Only the most recent of2 resultswithin the time period is included. Patholo gist Method Time Signature Ursodeoxycholic Ac 0.3 0.0 - 1.0 05/16/2022 [facility] umol/L 1:45 PM CDT Cholic Acid 0.7 0.0 - 1.9 05/16/2022 [facility] umol/L 1:45 PM CDT Chenodeoxycholic 1.0 0.0 - 3.4 05/16/2022 [facility] umol/L 1:45 PM CDT Deoxycholic Acid 1.1 0.0 - 2.5 05/16/2022 [facility] umol/L 1:45 PM CDT Bile Acids Total 3.1 0.0 - 7.0 05/16/2022 [facility] umol/L 1:45 PM CDT Comment: INTERPRETIVE INFORMATION: Bile Acids, Fr actionated and Total This test was developed and its performa nce characteristics determined by [facility]. It has not been cleared or approved by the [place] Food and Drug Adminis tration. This test was performed in a CLIA certified labora tory and is intended for clinical purposes. Performed By: [facility] [address] [place] [address] Script Supervisor: Melquiades Pulido MD, PhD Specimen Anatomical Collection Method Collection Time Receive d Time (Source) Location / / Volume Laterality Blood TOPOGRAPHY UNKNOWN Client Draw / 05/13/2022 4:06 PM 8:21 / Unknown Unknown CDT PM CDT Faith Pearson MD LAB - BLOOD ORDERABLES Performing Organization Address City/State/ZIP Code Phon e Number [place], [place] [phone] [place] [phone] (ABNORMAL) Hepatic function panel (05/13/2022 4:06 PM CDT) [facility] Method Time Signature Protein Total 6.0 (L) 6.4 - 8.3 05/13/2022 [facility] g/dL 9:12 PM CDT Albumin 3.3 (L) 3.5 - 5.2 05/13/2022 [facility] g/dL 9:12 PM CDT Bilirubin Total 0.4 <=1.2 05/13/2022 [facility] mg/dL 9:12 PM CDT Alkaline 96 35 - 104 05/13/2022 [facility] Phosphatase U/L 9:12 PM CDT AST 16 10 - 35 05/13/2022 [facility] U/L 9:12 PM CDT ALT 11 10 - 35 05/13/2022 [facility] U/L 9:12 PM CDT Bilirubin Direct <0.20 0.00 - 05/13/2022 [facility] LABORATOR Y 0.30 mg/dL 9:12 PM CDT Specimen Anatomical Collection Method Collection Time Receive d Time (Source) Location / / Volume Laterality Blood TOPOGRAPHY UNKNOWN Client Draw / 05/13/2022 4:06 PM 8:21 / Unknown Unknown CDT PM CDT Faith Pearson MD LAB - BLOOD ORDERABLES Performing Organization Address City/State/ZIP Code Phon e Number [facility]ATORY [facility] [place] [address] [phone] Lab [address] [facility] [address] Building, Room 3-580 (ABNORMAL) UA with Microscopic reflex to Culture (04/28/2022 9:13 PM CDT)Only the most recent of2 resultswithin the time period is included. [facility] Method Time Signature Color Urine Straw Colorless, 04/28/2022 LABORATORY Straw, Light 9:31 PM CDT Yellow, Yellow Appearance Urine Clear Clear 04/28/2022 LABORATOR Y 9:31 PM CDT Glucose Urine Negative Negative 04/28/2022 LABORATORY mg/dL 9:31 PM CDT Bilirubin Urine Negative Negative 04/28/2022 LABORATORY 9:31 PM CDT Ketones Urine 10 (A) Negative 04/28/2022 LABORATORY mg/dL 9:31 PM CDT Specific [place] 1.004 1.003 - 04/28/2022 LABORATOR Y Urine 1.035 9:31 PM CDT Blood Urine Negative Negative 04/28/2022 LABORATORY 9:31 PM CDT pH Urine 6.5 5.0 - 7.0 04/28/2022 LABORATORY 9:31 PM CDT Protein Albumin Negative Negative 04/28/2022 LABORATORY Urine mg/dL 9:31 PM CDT Urobilinogen Normal Normal, 2.0 04/28/2022 LABORATORY Urine mg/dL 9:31 PM CDT Nitrite Urine Negative Negative 04/28/2022 LABORATORY 9:31 PM CDT Leukocyte Negative Negative 04/28/2022 LABORATORY Esterase Urine 9:31 PM CDT RBC Urine 0 <=2 /HPF 04/28/2022 LABORATORY 9:31 PM CDT WBC Urine 0 <=5 /HPF 04/28/2022 LABORATORY 9:31 PM CDT Squamous 1 <=1 /HPF 04/28/2022 LABORATORY Epithelials 9:31 PM CDT Urine Specimen Anatomical Collection Method Collection Time Receive d Time (Source) Location / / Volume Laterality Urine MID-STREAM URINE Non-blood 04/28/2022 9:13 PM 04/28 9:22 SPECIMEN / Unknown Collection / CDT PM CDT Unknown Narrative LABORATORY - 04/28/2022 9:31 PM CDT Urine Culture not indicated Belkis Messina MD LAB - URINE ORDERABLES Performing Organization Address City/State/ZIP Code Phon [place] [address] [phone] NON-STRESS TEST - HIM SCAN (04/28/2022 12:00 AM CDT) Specimen (Source) Anatomical Location Collection Method / Collectio n Time Received Time / Laterality Volume 04/28/2022 Narrative This result has an attachment that is no t available. Provider Outside PROCEDURES (ABNORMAL) Comprehensive metabolic panel (04/16/2022 4:04 PM CDT) [facility] gist Method Time Signature Sodium 134 (L) 136 - 145 04/16/2022 [facility] mmol/L 10:48 PM CDT Potassium 3.7 3.4 - 5.3 04/16/2022 [facility] mmol/L 10:48 PM CDT Chloride 100 98 - 107 04/16/2022 [facility] mmol/L 10:48 PM CDT Carbon Dioxide 22 22 - 29 04/16/2022 [facility] (CO2) mmol/L 10:48 PM CDT Anion Gap 12 7 - 15 04/16/2022 [facility] mmol/L 10:48 PM CDT Urea Nitrogen 7.9 6.0 - 04/16/2022 [facility] 20.0 10:48 PM CDT mg/dL Creatinine 0.50 (L) 0.51 - 04/16/2022 [facility] 0.95 10:48 PM CDT mg/dL Calcium 8.9 8.6 - 04/16/2022 [facility] 10.0 10:48 PM CDT mg/dL Glucose 153 (H) 70 - 99 04/16/2022 [facility] mg/dL 10:48 PM CDT Alkaline 80 35 - 104 04/16/2022 [facility] Phosphatase U/L 10:48 PM CDT AST 18 10 - 35 04/16/2022 [facility] U/L 10:48 PM CDT ALT 10 10 - 35 04/16/2022 [facility] U/L 10:48 PM CDT Protein Total 6.4 6.4 - 8.3 04/16/2022 [facility] g/dL 10:48 PM CDT Albumin 3.6 3.5 - 5.2 04/16/2022 [facility] g/dL 10:48 PM CDT Bilirubin Total 0.6 <=1.2 04/16/2022 [facility] mg/dL 10:48 PM CDT GFR Estimate >90 >60 04/16/2022 [facility] mL/min/1. 10:48 PM CDT 73m2 Comment: Effective July 09, 2021 eGF Rcr in adults is calculated using the 2020 CKD-EPI creatinine equation which includ es age and gender (Abelardo et al., NEJ, DOI: 10.1056/WBSZwq5917138) Specimen Anatomical Collection Method / Collection Time Recei ching Time (Source) Location / Volume Laterality Blood TOPOGRAPHY UNKNOWN Venipuncture / 04/16/2022 4:04 /02/2022 / Unknown Unknown PM CDT 10:24 PM CDT Meche Monzon APRN [employer] LAB - BLOOD ORDERABLES Performing Organization Address City/State/ZIP Code Phon e Number [facility]AT[facility] [place] [address] [phone] Lab [address] [facility] [address], Room 3-580 NON-STRESS TEST - HIM SCAN (04/08/2022 12:00 AM CDT) Specimen (Source) Anatomical Location Collection Method / Collectio n Time Received Time / Laterality Volume 04/08/2022 Narrative This result has an attachment that is no t available. Provider Outside PROCEDURES NON-STRESS TEST - HIM SCAN (04/08/2022 12:00 AM CDT) Specimen (Source) Anatomical Location Collection Method / Collectio n Time Received Time / Laterality Volume 04/08/2022 Narrative This result has an attachment that is no t available. Provider Outside PROCEDURES NON-STRESS TEST - HIM SCAN (04/05/2022 12:00 AM CDT) Specimen (Source) Anatomical Location Collection Method / Collectio n Time Received Time / Laterality Volume 04/05/2022 Narrative This result has an attachment that is no t available. Provider Outside PROCEDURES NON-STRESS TEST - HIM SCAN (03/28/2022 12:00 AM CDT) Specimen (Source) Anatomical Location Collection Method / Collectio n Time Received Time / Laterality Volume 03/28/2022 Narrative This result has an attachment that is no t available. Provider Outside PROCEDURES Rapid Plasma Reagin w Rflx to TITER (03/26/2022 8:56 AM CDT) [facility] gist Method Time Signature Rapid Plasma Nonreactive Nonreactive 03/27/2022 SPECIALTY Reagin 3:40 PM CDT CORE/PROT/EN DO Specimen Anatomical Collection Method Collection Time Receive d Time (Source) Location / / Volume Laterality Blood TOPOGRAPHY UNKNOWN Client Draw / 03/26/2022 8:56 AM 4:04 / Unknown Unknown CDT PM CDT Narrative [facility] CORE/PROT/ENDO - 03/27/2022 3:40 PM CDT This test should not be used as a primary diagnostic approach for syphilis, and a serum specimen should be submitted for a treponemal-specific antibody test. Biological false-positive reactions with cardiolipin-type antigens have been reported in disease such as infectious mononucleosis, leprosy, malaria, lupus erythematosus, vaccinia, and viral pneumonia. ? ?, autoimmune diseases, and dev cotic additions may give false- positives. Pinta, yaws,bejel, and other treponemal diseases may also produce false-positive results with this test. Andrew Ramsay MD LAB - BLOOD ORDERABLES Performing Organization Address City/State/ZIP Code Phon e Number [facility] CORE/PROT/ENDO [facility] [place] [address] Core/Prot/Endo [address] [facility] [address], Room 3-580 Glucose tolerance gest screen 1 hour (03/26/2022 8:56 AM CDT) P athologist Signature Glu Gest Screen 115 70 - 129 03/26/2022 [facility] 1hr 50g mg/dL 5:22 PM CDT Specimen Anatomical Collection Method Collection Time Receive d Time (Source) Location / / Volume Laterality Blood TOPOGRAPHY UNKNOWN Client Draw / 03/26/2022 8:56 AM 4:04 / Unknown Unknown CDT PM CDT Narrative [facility] - 03/26/2022 5:22 PM CDT This is a screening test for Gestational Diabetes Mellitus. If results are 130 mg/dL or greater, a S tandard 100 gram Gestational ??3 hour Glucose Tolerance should be performed. Andrew Ramsay MD LAB - BLOOD ORDERABLES Performing Organization Address City/State/ZIP Code Phon e Number [place] [address] [phone] Lab [address] [facility] [address] [facility], Room 3-580 from Last 3 Months Insurance Payer Benefit Plan / Subscriber ID Effective Dates Phone Addre ss Type Group BCBS BCBS FEDERAL [id number] 2021-Present [phone] [id number] [place] [address] Eduardo Hufftulio Gonzalez Personal/Family Self 1990 [phone] (Home) W none ([place]) [place] [address] Advance Directives For more information, please contact: [phone] Latest Code Status on File Code Status Date Activated Date Inactivated Comments Full Code 06/10/2022 2:51 PM 06/13/2022 6:05 PM All basic and advanced life-sustaining interventions are performed as jenni ropriate Question Answer Comments Code status determined by: Discussion with patient/ legal de cision maker Care Teams Instructor Programmable Controllers Relationship Specialty Start Date End Date Justin Loya MD PCP - General Family Practice 02/19/11 [facility] [address] [place] [id number] Silas Santiago MD MD Pain Clinic 11/29/13 [facility] [address] [place], [place] [id number] Caden Leone, Assigned Surgical Provider 07/20 01/08 MD Mike BHAKTA [place], [place] [id number]
--- OUTSIDE RECORDS SUMMARY | 2022-06-23 17:38 | XMS_ITS | Encounter Summary ---
:1990 Author Organization [place] Address [address] [facility] [address] Care Team Providers Name Role Phone Justin Loya MD Primary Care Provider Silas Santiago MD Unavailable Caden Leone MD Unavailable [phone] Reason for Visit Reason Comments Scheduled Section Auth/Cert Specialty Diagnoses / Procedures Referred By Contact Refer red To Contact aeronautics commission director Diagnoses Previous section Previous section [Z98.891] Sh Mac Procedures [facility] FULL ROUT OBSTE CARE, DELIV [facility] DELIVERY ONLY [facility] DELIVERY+ CARE REPEAT SECTION [address], [address] [place] [address] Phone: Referral ID Status Reason Start Date Expiration Date Visits Requ ested Visits Authorized [id number] 1 1 Encounter Details Date Type Department Care Team Description 06/10/2022 - Hospital Encounter [facility] Tresa Flowers MD [address] [facility] [address] [place] [address] Labor and delivery indication for care o r intervention (Primary Dx); 06/13/2022 Kimberly Gay MD [address] [facility] [address] [place] [address] S/P Birthplace [address], [address] [place] [id number] Social History Tobacco Use Types Packs/Day Years Used Date Smoking Tobacco: Never Smokeless Tobacco: Never Alcohol Use Standard Drinks/Week Comments No 0 (1 standard drink = 0.6 oz pure alcoho l) Sex Assigned at Date Recorded Not on file COVID-19 Exposure Response Date Recorded In the last 10 days, have you been in contact with No / Unsu re 06/09/2022 8:19 AM RIP TAILER someone who was confirmed or suspected to have Coronavirus/COVID-19? documented as of this encounter Last Filed Vital Signs Vital Sign Reading Time Taken Comments Blood Pressure 113/69 06/13/2022 9:00 AM RIP TAILER Pulse 80 06/13/2022 9:00 AM RIP TAILER Temperature 36.4 ??C (97.6 ??F) 06/13/2022 9:00 AM RIP TAILER Respiratory Rate 16 06/13/2022 9:00 AM RIP TAILER Oxygen Saturation 100% 06/11/2022 8:00 AM RIP TAILER Inhaled Oxygen Concentration - - Weight 76.2 kg (168 lb) 06/10/2022 11:08 AM RIP TAILER Height 170.2 cm (5' 7) 06/10/2022 11:08 AM RIP TAILER Body Mass Index 26.31 06/10/2022 11:08 AM RIP TAILER documented in this encounter Discharge Summaries Kimberly [...] still uncomfortable. She was started on a DIRECTOR OPERATIONS BROADCAST. On postoperative day #1, DIRECTOR OPERATIONS BROADCAST was discontinued and the patient was started [...] MD MT: VERONIQUE Name: DESTINEY HUFF Account: [id number] : 1990 Service Date: 06/13/2022 Discharge Date: 06/13/2022 Document: [id number] TAILER documented in this encounter Discharge Instructions Discharge [...] questions or concerns after you return home. TAILER documented in this encounter Medications at Time [...] after delivery Tamie Caba MD 7:27 AM TAILER Miranda Jessica MD - 06/11/2022 8:41 AM [...] edema I/O last 3 completed shifts: In: 2105 [I.V.:2105] Out: 3510 [Urine:2950; Blood:560] Hgb: Hemoglobin [...] two week mood check. Miranda Jessica MD [facility] STOCK REPAIRER 06/11/2022, 8:41 AM TAILER documented in this encounter H&P Notes Van [...] past 30 days , will monitoras appropriate TAILER Source Note - Outside, Provider - 06/09/2022 4:41 PM RIP TAILER documented in this encounter Consult Notes Amari [...] help.The patient was able to name her STOCK REPAIRER as a support if she has any [...] to be available as needed. JONATHON Shaver TAILER documented in this encounter Miscellaneous Notes Plan [...] discharge and no unmet needs were identified. TAILER Plan of Care - Ginger Mccabe, ALDO - 06/13/2022 4:08 AM CST VSS on [...] ambulating. Fundus firm U/1. Bonding well with infant. Benjie at bedside. Plan to discharge today. Will continue with POC. TAILER Plan of Care - Latonia Farris RN [...] for assistance as needed. Patient verbalized understanding. TAILER Note - Kiki Freeman RN - 06/12/2022 8:15 AM CST Destiney wanted to bring infant to breast this morning, requested support. LC present at bedside to assist. Infant was very eager almost frantic to feed and was vigorously trying to latch. Destiney stating she was having too much discomfort , that it felt like infant was pinching her nipple and she couldn't handle it. We tried re-latching infant a couple of times, unable to get Destiney comfortable. Destiney deciding she wasn't wanting to continue at this moment. LC did suggest bringinginfant to breast if he is more calm. Destiney continues to be committed to pumping and bottle. Sally Freeman RN IBCLC TAILER Plan of Care - Theresa Melchor RN - 06/12/2022 5:48 AM CST Vss, RA. LS clear. BS present. C/o gas discomfort. Simethicone given. Ambulation encouraged. UO adequate. Incision intact with steri strips. Pt reported feeling sadness and anxiety when discussing infant bottling, failed hearing screen, and facial asymmetry. Active listening and support provided to patient and spouse. Respite care provided overnight. TAILER Plan of Care - Latonia Farris RN [...] care throughout the day and evening. After oracle distribution consultant saw baby this morning patient very upset, stating she is fearful and anxious about baby and baby's care. Patient inconsolable for a short period but able to calm after further discussion about plan for baby's follow up care. After Spin Instructor saw the baby patient appeared to be [...] for assistance as needed. Patient verbalized understanding. TAILER Note - Kiki Freeman RN - 06/11/2022 12:26 PM CST This morning infant assessed by Peds to have slight L jaw abnormality. Parents both very upset by this news and mother didn't want to bring infant to breast for 1100 feeding. LC offered to finger feed , both parents very tearful and processing news. LC offered to finger feed in the PETER togive parents privacy to process. LC assess 's palette to be intact and does display a coordinated suckling pattern, his suck is slightly weaker on the L. With finger feeding, milk dribbling out of L corner of infant's mouth. LC provided cheek support and was helpful. 12 ml of DBM attempted, took 7 ml over the course of about 45 minutes ( assessed by Spin Instructor while in PETER). is also very spitty. Cruise Staff Member able to secure a ENT consult for later today. Occupational therapist from NICU also to assess later today. When LC brought infant back to parents room, mom is much more relaxed, calm, not crying, and requests to hold infant. She asked if I could assist her with later this afternoon. LC will revisit and offer support as requested. Sally Freeman, ALDO IBCLC TAILER Plan of Care - Rose Combs RN [...] remove catheter at this time. attempts overnight, has poor latch and mom needs full assist with positioning but declines aid in positioning infant. Pt pumping, getting small amounts of colostrum, and FOB finger feeding colostrum and DM via tube and syringe. Pain managed with Tylenol, toradol, anddilaudid DIRECTOR OPERATIONS BROADCAST pump overnight. Patient rating pain 8-10/10 resting in bed. MD updated and POC changed to discontinue DIRECTOR OPERATIONS BROADCAST pump and bridge to PO oxycodone as patient can tolerate oral fluids and food. Non pharm measures taken to help with discomfort - ice applied to incision, repositioning, abdominal binder - all with minimal relief per patient. Appears to be bonding well with at times. Pt appearsto have severe anxiety [...] stating that she is hemorrhaging and RN (fiction and nonfiction prose writer) attempting to assess fundus and bleeding. Support person, Benjie at bedside helping with cares to both mom and as well as providing emotional support to pt. Education completed and questions answered. TAILER Provider Notification - Rose Combs RN - 06/11/2022 4:58 AM CST 06/11/22 0456 Provider Notification Provider Name/Title Dr. Ramsay Method of Notification Phone Request Evaluate-Remote Notification Reason Status Update Paged Dr. Ramsay regarding patients pain status. Dr. Ramsay returned the call @ 0500. Updated MD on pain status and patients anxiety. Plan to discontinue the DIRECTOR OPERATIONS BROADCAST pump of dilaudid and transition to PO oxycodone with a sliding scale of 5mg-10mg every 3 to 4 hours. OK to give 5mg oxycodone now once DIRECTOR OPERATIONS BROADCAST is discontinued. TAILER Note - Salma Martinez RN - 06/10/2022 6:18 PM CST Routine visit with Destiney, significant other Benjie & baby sharon Gil. Destiney shared she pumped and bottle fed with her first child, who was born at 35+6 weeks, and had a good milk supply. Destiney had her under general anesthesia and shared she's feeling pretty drowsy still so kept information part of visit brief. Jigar Gil supplemented x1 with donor milk while Destiney [...] Salma Martinez RN-C, IBCLC, MNN, PHN, BSN TAILER Plan of Care - Moriah Gudino - [...] and pt was also started on a DIRECTOR OPERATIONS BROADCAST pump- has since rated her pain 5/10 and improving. Using ice pack to incision. Pt. Had slight nausea but improved with crackers, denies CP, SOB, lightheadedness, or dizziness. Slightly drowsy at times due to DIRECTOR OPERATIONS BROADCAST. LS clear and BS hypoactive. PIV patent [...] call light system. at bedside and supportive. TAILER Op Note - Kimberly Ramsay MD - 06/10/2022 5:10 PM CST Procedure Date: 06/10/2022 PREOPERATIVE DIAGNOSES: 1. Intrauterine at 39+2 weeks. 2. Previous section, desires repeat section. POSTOPERATIVE DIAGNOSES: 1. Intrauterine at 39+2 weeks. 2. Previous section, desires repeat section. 3. Delivered. PROCEDURE: Repeat low transverse section. SURGEON: Kimberly Ramsay M.D. LUMP RECEIVER: Dr. Juliana Flowers, who was present and [...] MD MT: RHIANNON Name: DESTINEY HUFF Account: [id number] : 1990 Procedure Date: 06/10/2022 Document: [id number] TAILER Provider Notification - Kiki Vogt RN - 06/10/2022 4:23 PM RIP TAILER 06/10/221621 Provider Notification Provider Name/Title Dr. Ramsay Method of Notification Phone Return page. Updated on pain unmanaged with IV push. Fundus firm at U/1, light flow. Orders to startPCA. POC reviewed with Moriah. See flow sheets. TAILER Plan of Care - Kiki Vogt RN - 06/10/2022 4:14 PM CST Pt transferred to room 431 in cart from main PACU. [place] to room. Bedside report to Moriah Gupta RN. Bands verified. Care taken over TAILER Brief Op Note - Kimberly Ramsay MD - 06/10/2022 2:28 PM CST OB Brief Operative Note 1. Pre-op diagnosis- 31 year old IUP at 39w2d H/O previous , desires repeat 2. Post-op diagnosis- Same Delivered 3. Procedure- Repeat Low Transverse Section via Pfannenstiel skin incision with 2-layer uterine closure 4. Surgeon- Kimberly Ramsay MD MD 5. Tank Insulator Rubber- Juliana Flowers MD 6. QBL- 560 ml [...] left. Kimberly Ramsay MD 06/10/2022 2:29 PM TAILER documented in this encounter Plan of Treatment Not on filedocumented as of this encounter Procedures Procedure Name Priority Date/Time Associated Comments Diagnosis PLATELET COUNT Routine 06/13/2022 8:17 AM Results for this RIP TAILER procedure are i n the results section. HEMOGLOBIN Routine 06/11/2022 8:05 AM Results f or this RIP TAILER procedure are i n the results section. PLATELET COUNT Routine 06/10/2022 4:18 PM Results for this RIP TAILER procedure are i n the results section. CREATININE Routine 06/10/2022 4:18 PM Results f or this RIP TAILER procedure are i n the results section. SECTION 06/10/2022 1:24 PM Previous RIP TAILER section COVID-19 VIRUS STAT 06/10/2022 11:30 AM Result s for this (CORONAVIRUS) BY PCR RIP TAILER procedu re are in the results section. documented in this encounter Results Platelet count (06/13/2022 8:17 AM RIP TAILER) athologist Signature Platelet Count 242 150 - 450 06/13/2022 LABORATORY 10e3/uL 8:55 AM RIP TAILER Specimen Anatomical Collection Method / Collection Time Recei ching Time (Source) Location / Volume Laterality Blood STRUCTURE OF RIGHT Venipuncture / 06/13/2022 8:17 05/21 8:51 UPPER LIMB / Unknown AM RIP TAILER AM RIP TAILER Unknown Kimberly Ramsay MD LAB - BLOOD ORDERABLES Performing Organization Address City/State/ZIP Code Phon e Number [place]ORY [place] [address] Care Lab [address] 1st floor, Room [address]B (ABNORMAL) Hemoglobin (06/11/2022 8:05 AM RIP TAILER) athologist Signature Hemoglobin 9.3 (L) 11.7 - 15.7 06/11/2022 LABORATORY g/dL 8:33 AM RIP TAILER Specimen Anatomical Collection Method / Collection Time Recei ching Time (Source) Location / Volume Laterality Blood STRUCTURE OF RIGHT Venipuncture / 06/11/2022 8:05 05/21 8:27 UPPER LIMB / Unknown AM RIP TAILER AM RIP TAILER Unknown Kimberly Ramsay MD LAB - BLOOD ORDERABLES Performing Organization Address City/State/ZIP Code Phon e Number [place]AT[place] [address] Care Lab [address] 1[address] floor, Room [address]B Platelet count (06/10/2022 4:18 PM RIP TAILER) athologist Signature Platelet Count 183 150 - 450 06/10/2022 LABORATORY 10e3/uL 4:25 PM RIP TAILER Specimen Anatomical Collection Method / Collection Time Recei ching Time (Source) Location / Volume Laterality Blood STRUCTURE OF LEFT Venipuncture / 06/10/2022 4:18 06/10 4:23 UPPER LIMB / Unknown PM RIP TAILER PM RIP TAILER Unknown Kimberly Ramsay MD LAB - BLOOD ORDERABLES Performing Organization Address City/State/ZIP Code Phon e Number [place] [address] Care Lab [address] 1[address] floor, Room [address]B (ABNORMAL) Creatinine (06/10/2022 4:18 PM RIP TAILER) athologist Signature Creatinine 0.51 (L) 0.52 - 06/10/2022 LABORATORY 1.04 mg/dL 4:42 PM RIP TAILER GFR Estimate >90 >60 06/10/2022 LABORATORY mL/min/1.7 4:42 PM RIP TAILER 3m2 Comment: Effective July 09, 2021 eGF Rcr in adults is calculated using the 2020 CKD-EPI creatinine equation which includ es age and gender (Abelardo et al., NEJM, DOI: 10.1056/YNADdt9041540) Specimen Anatomical Collection Method / Collection Time Recei ching Time (Source) Location / Volume Laterality Blood STRUCTURE OF LEFT Venipuncture / 06/10/2022 4:18 06/10 4:23 UPPER LIMB / Unknown PM RIP TAILER PM RIP TAILER Unknown Kimberly Ramsay MD LAB - BLOOD ORDERABLES Performing Organization Address City/[facility]/ZIP Code Phon e Number LABORATORY [facility] [place] [phone] Care Lab [address] 1st floor, Room [address]B Asymptomatic COVID-19 Virus (Coronavirus) by PCR Nasopharyngeal (06/10/2022 11:30 AM RIP TAILER) [facility] Time Signature SARS CoV2 PCR Negative Negative 06/10/2022 LABORATORY 12:37 PM RIP TAILER Comment: NEGATIVE: SARS-CoV-2 (COVID-19) RNA not detected, presumed negative. Specimen Anatomical Location / Collection Method Collection Ignacio e Received Time (Source) Laterality / Volume Swab NASOPHARYNGEAL Non-blood 06/10/2022 11:30 STRUCTURE / Unknown Collection / AM RIP TAILER 11:51 AM RIP TAILER Unknown Narrative LABORATORY - 06/10/2022 12:37 PM RIP TAILER Testing was performed using the Xpert Xpress SARS-CoV-2 Assay on the [employer]. Additional information about this Emergency [...] use under the FDA EUA for laborat or[place]uck certified under CLIA to perform hi gh [...] COVID-19. This test was validated by the [facility]. This laboratory is certified under the Clinical Laboratory Improvement Amendments (CLIA) as qualified to perform high complexity laboratory testing. Kimberly Ramsay MD LAB - MICRO GENERAL ORDERABL ES Performing Organization Address City/[facility]/ZIP Code Phon e Number LABORATORY [facility] [place] [address] Care Lab [address] 1st floor, [...] delivery, unspecified as to episode of care documented in this encounter Admitting Diagnoses Diagnosis Indication for care in labor or delivery Unspecified indication for care or inter vention related to labor and delivery, unspecified as to episode of care S/P Other postprocedural status documented in this encounter Administered Medications Inactive Administered Medications - up to 3 most recent administrations Medication Order MAR Action Action Date Dose Rate Site acetaminophen (TYLENOL) 325 MG tablet Starting on Thu06/10/22 at 1235, For 1 dose, Ann Vogt: cabinet override Maximum acetaminophen dose from all sources = 75 mg/kg /day not to exceed 4 grams/day. acetaminophen (TYLENOL) tablet 975 mg Given 06/10/2022 12:37 PM RIP TAILER 975 mg 975 mg, Oral, ONCE, On Thu06/10/22 at 1130, For 1 dose, Maximum acetaminophen dose from all sources = 75 mg/kg/day not to exceed 4 grams/day., Pre-procedure acetaminophen (TYLENOL) tablet 975 mg Given 06/13/2022 2:02 PM RIP TAILER 975 mg 975 mg, Oral, EVERY 6 HOURS, First dose on Thu06/10/22 at 1830, Maximum acetaminophen dose from all sources = 75 mg/kg/day not to exceed 4 grams/day. Given 06/13/2022 8:04 AM RIP TAILER 975 mg Given 06/13/2022 2:00 AM RIP TAILER 975 mg bisacodyl (DULCOLAX) suppository 10 mg Given 06/13/2022 10:56 AM RIP TAILER 10 mg 10 mg, Rectal, DAILY PRN, constipation, Starting on Thu06/12/22 at 0000, Start POD 2 Hold for loose stools. dextrose 5% in lactated ringers infusion New Bag 06/10/2022 5:39 PM RIP TAILER 125 mL/hr at 125 mL/hr, Intravenous, CONTINUOUS, Subsequent IV at nurse's discretion. DC IV when tolerating fluids or at nurse's discretion & saline lock., Starting on Thu06/10/22 at 1500, Until Thu06/13/22 at 1800 enoxaparin ANTICOAGULANT (LOVENOX) injection Given 5:05 PM RIP TAILER 40 mg 40 mg 40 mg, Subcutaneous, EVERY 24 HOURS, First dose on Thu06/11/22 at 1500, Wait GREATER than or EQUAL to 12 hours after the neuraxial procedure AND GREATER than or EQUAL to four hours after the epidural catheter removal before initiating or restarting LMWH thromboprophylaxis (enoxaparin). Surgery start time: 1:40 pm Given 06/11/2022 3:27 PM RIP TAILER 40 mg fentaNYL (PF) (SUBLIMAZE) injection 25 m cg Given 06/10/2022 3:10 PM RIP TAILER 25 mcg 25 mcg, Intravenous, EVERY 5 MIN PRN, moderate pain (4-6), Give fentaNYL (SUBLIMAZE) first if HYDROmorphone (DILAUDID) also ordered., Starting on Thu06/10/22 at 1451, Administer fentaNYL (SUBLIMAZE) for acute pain control. Move to HYDROmorphone (DILAUDID): -IF patient has received up to 200 mcg of fentaNYL (SUBLIMAZE) OR - IF patient has received 2 doses of fentaNYL (SUBLIMAZE) AND continues to have pain score greater than or equal to six (6) or is unable to participate in post op recovery due to pain. Wait 5 minutes AFTER last fentaNYL (SUBLIMAZE) dose before administering HYDROmorphone (DILADUDID). Postop Anesthesia Phase I only. Notify Provider to assess for uncontrolled pain or analgesic side effects. DO NOT revert back to fentanyl (SUBLIMAZE) after moving to HYDROmorphone (DILAUDID)., PACU Given 06/10/2022 3:05 PM RIP TAILER 25 mcg gentamicin (GARAMYCIN) 150 mg in sodium New Bag 06/10/2022 12:22 P M RIP TAILER 150 mg chloride 0.9 % 50 mL intermittent infusi on Routine, 150 mg (rounded from 152.4 mg = 2 mg/kg ? 76.2 kg), Intravenous, PRE-OP/PRE-PROCEDURE, Starting on Thu06/10/22 at 1104, For 1 dose, Give first doses within 1 hour PRIOR to incision. Administer gentamicin (GARAMYCIN) before clindamycin (CLEOCIN)., Indications: Perioperative Pharmacoprophylaxis, Pre-procedure HYDROmorphone (DILAUDID) injection 0.2 m g Given 06/10/2022 3:21 PM RIP TAILER 0.2 mg 0.2 mg, Intravenous, EVERY 5 MIN PRN, moderate pain (4-6), Starting on Thu06/10/22 at 1451, Use FentaNYL (SUBLIMAZE) first if ordered. Administer HYDROmorphone (DILAUDID) up to a total of 2 mg for moderate or severe pain. Notify Provider to assess for uncontrolled pain or analgesic side effects., PACU HYDROmorphone (DILAUDID) DIRECTOR OPERATIONS BROADCAST 0.2 mg/mL Rate/Dose Verify 06/11/2022 4:07 AM RIP TAILER OPIOID NAIVE (age less than 65 years) Continuous Rate: 0 mg/hr, DIRECTOR OPERATIONS BROADCAST Dose: 0.2 mg, DIRECTOR OPERATIONS BROADCAST Lockout: 10 Minutes, One Hour Limit: 1.2 mg, Clinician Bolus (one time dose): 0.2 mg, Starting on Thu06/10/22 at 1630, Hold the dose for analgesic side effects. Notify the provider to assess for uncontrolled pain or analgesic side effects. Do NOT give any additional opioids while on DIRECTOR OPERATIONS BROADCAST unless provider authorized., Intravenous New Syringe/Cartridge 06/10/2022 4:41 PM RIP TAILER ibuprofen (ADVIL/MOTRIN) tablet 800 mg Given 06/13/2022 10:56 AM RIP TAILER 800 mg 800 mg, Oral, EVERY 6 HOURS, First dose on Thu06/11/22 at 1000, Give with food. Given 06/13/2022 5:02 AM RIP TAILER 800 mg Given 06/12/2022 10:49 PM RIP TAILER 800 mg ketorolac (TORADOL) injection 30 mg Given 06/11/2022 4:11 AM RIP TAILER 30 mg 30 mg, Intravenous, EVERY 6 HOURS, First dose on Thu06/10/22 at 2100, For 3 doses, Can cause pain on injection. If ordered intravenously (IV) : administer through a running maintenance fluid over 1 minute followed by a flush. If patient complains of pain on injection, may dilute 15-30 mg in 5 mL and push over 1 to 2 minutes. Given 06/10/2022 10:07 PM RIP TAILER 30 mg LORazepam (ATIVAN) tablet 0.5 mg 0.5 [...] 1455, Administer intramuscular if an intravenous ro [place] is not available and notify provider when [...] 1455, Administer intramuscular if an intravenous ro [place] is not available and notify provider when [...] tab 4 mg Given 06/10/2022 8:05 PM RIP TAILER 4 mg 4 mg, Oral, EVERY 6 [...] tablet 5-10 mg Given 06/13/2022 2:02 PM RIP TAILER 5 mg 5-10 mg, Oral, EVERY 3 HOURS PRN, other, pain control or improvement in physical function. Hold dose for analgesic side effects., Starting on Thu06/11/22 at 0538, Notify provider to assess for uncontrolled pain or analgesic side effects. Hold while on DIRECTOR OPERATIONS BROADCAST or with regular IV opioid dosing. Maximum total is 60 mg in 24 hours. Given 06/13/2022 10:56 AM RIP TAILER 10 mg Given 06/13/2022 8:04 AM RIP TAILER 10 mg polyethylene glycol (MIRALAX) Packet 17 g Given 06/11/2022 9:02 AM RIP TAILER 17 g 17 g, Oral, DAILY, First dose on Thu06/10/22 at 1630, 1 Packet = 17 grams. [...] out. polyethylene glycol (MIRALAX) Packet 17 g Given 06/13/2022 8:23 AM RIP TAILER 17 g 17 g, Oral, 2 TIMES [...] bowel clean out. Given 06/12/2022 8:04 PM RIP TAILER 17 g Given 06/12/2022 8:20 AM RIP TAILER 17 g multivitamin w/iron per tablet 1 Given 06/13/2022 8 :05 AM RIP TAILER 1 tablet tablet 1 tablet, Oral, DAILY, First dose on Thu06/10/22 at 1500, Indications: Given 06/12/2022 7:08 AM RIP TAILER 1 tablet Given 06/11/2022 9:01 AM RIP TAILER 1 tablet prochlorperazine (COMPAZINE) injection 1 0 [...] for loose stools. Given 06/11/2022 9:01 AM RIP TAILER 1 tablet senna-docusate (SENOKOT-S/PERICOLACE) Given 06/13/2022 8:[address] 2 tablets 8.6-50 MG per tablet 2 tablet 2 tablet, Oral, 2 TIMES DAILY, First dose on Thu06/10/22 at 2000, Hold for loose stools. Preferred agent for constipation related to opioids. Hold for loose stools. Given 06/12/2022 8:04 PM RIP TAILER 2 tablets Given 06/12/2022 7:07 AM RIP TAILER 2 tablets simethicone (MYLICON) chewable tablet 80 mg Given 06/12/2022 5:02 AM RIP TAILER 80 mg 80 mg, Oral, 4 TIMES DAILY PRN, other, gas, Starting on Thu06/10/22 at 1451, Chew. Given 06/11/2022 6:41 PM RIP TAILER 80 mg Given 06/11/2022 12:46 PM RIP TAILER 80 mg sodium citrate-citric acid (BICITRA) 500 -334 MG/5ML solution Starting on Thu06/10/22 at 1236, For 1 dose, Ann Vogt: fe tang sodium citrate-citric acid (BICITRA) solution Given 1:18 PM RIP TAILER 30 mLs 30 mL 30 mL, Oral, PRE-OP/PRE-PROCEDURE, Starting on Thu06/10/22 at 1104, For 1 dose, For gastric pH neutralization. GIVE WITHIN 45 minutes PRIOR TO SURGICAL PROCEDURE., Pre-procedure documented in this encounter Active and Recently Administered Medications Times are shown in RIP TAILER. Scheduled Medication Order 06/11/2022 06/12/2022 06/13/2022 acetaminophen (TYLENOL) tablet 975 mg 0051 (Given - Pr ovider: Rose Combs, RN)0720 (Given - Provider: Rose Combs, RN)1245 (Given - Provider: Latonia Farris, ALDO)1916 (Given - Provider: Latonia Farris RN) 0106 (Given - Provider: Theresa Melchor, ALDO)0707 (Given - Provider: Latonia Farris, ALDO)1300 (Not Given - Provider: Latonia Farris RN - Reason: Other - Comment: dose rescheduled)1356 (Given - Provider: Latonia Farris RN) 0200 (Given - Provider: Ginger Mccabe RN)0804 (Given - Provider: Elizabeth Cooper, ALDO)1402 (Given - Provider: Kamila Deluna RN) 975 mg, Oral, EVERY 6 HOURS, First dose on Thu06/10/22 at 1830, Maximum acetaminophen dose from all sources = 75 mg/kg/day not to exceed 4 grams/day. 2003 (Given - Provider: Ginger Mccabe, ALDO) enoxaparin ANTICOAGULANT (LOVENOX) injection 40 mg 152 7 (Given - Provider: Latonia Farris RN) 1705 (Given - Provider: Kavin Rachel, RN) 1500 (Ca nceled Entry - Provider: [...] RN) 0456 (Given - Provider: Theresa Rob ch, RN)1100 (Given - Provider: Latonia Farris RN)1705 (Given - Provider: Kavin Rachel, ALDO)2249 (Given - Provider: Joce Cervantes RN) 0502 (Given - Provider: Ginger Mccabe RN)1056 (Given - Provider: Elizabeth Cooper RN)1700 (Canceled Entry - Provider: Orders Generic Provider - Comment: Automatically canceled at discontinue of medication order) 800 mg, Oral, EVERY 6 HOURS, First dose on Thu06/11/22 at 1000, Give with food. ketorolac (TORADOL) injection 30 mg () 0301 (Ca nceled Entry - Provider: Rose Combs RN)0411 (Given - Provider: Rose Combs, ALDO) 30 mg, Intravenous, EVERY 6 HOURS, First dose on Thu06/10/22 at 2100, For 3 doses, Can cause pain on injection. If ordered intravenously (IV) : administer through a running maintenance fluid over 1 min [place] followed by a flush. If patient comp [...] RN) 08 (Gi vinay - Provider: Elizabeth Cooper RN) 1 tablet, Oral, DAILY, First dose on Thu06/10/22 at 1500, Indications: senna-docusate (SENOKOT-S/PERICOLACE) 8. 6-50 MG per tablet 1 tablet(Linked Group 1) 0246 (Not Given - Provider: Rose rodriguez RN - Reason: Patient/family refused)09 (Given - Provider: Latonia Farris RN)2012 (Given - Provider: Theresa Melchor RN) 07 (See Alternative - Provider: Latonia Farris RN)2003 (See Alternative - Provider: Ginger Mccabe RN) 08 (See Alternative - Provider: Elizabeth Cooper, [...] RN)0901 (See Alternative - Provider: Latonia Farris, RN)2012 (See Alternative - Provider: Theresa Melchor, ALDO) 0707 (Given - Provider: Latonia Farris , RN)2003 (Given - Provider: Ginger Mccabe RN) 0805 (Given - Provider: Elizabeth Cooper , [...] 1500, Until Thu06/13/22 at 1800 HYDROmorphone (DILAUDID) DIRECTOR OPERATIONS BROADCAST 0.2 mg/mL OPIOID NAIVE (a ge less than 65 years) 0407 (Rate/Dose Verify - Provider: Rose Combs RN)0610 (Stopped - Provider: Rose Combs RN) Continuous Rate: 0 mg/hr, DIRECTOR OPERATIONS BROADCAST Dose: 0.2 mg, DIRECTOR OPERATIONS BROADCAST Lockout: 10 Minutes, One Hour Limit: 1.2 mg, Clinician Bolus (one time dose): 0.2 mg, Starting on Thu06/10/22 at 1630, Hold the dose for analgesic side e ffects. Notify the provider to assess fo r uncontrolled pain or analgesic side effects. Do NOT give any additional opioids while on DIRECTOR OPERATIONS BROADCAST unless provider authorized., Intravenous PRN Medication Order 06/11/2022 06/12/2022 06/13/2022 bisacodyl (DULCOLAX) suppository 10 mg 0954 (Not Given - Provider: Elizabeth Cooper RN [...] mcg 200 mcg, Intramuscular, EVERY 2 HOURS AL N, ONLY for uterine atony with significant [...] Elizabeth Cooper, ALDO)1056 (Given - Provider: Elizabeth Cooper RN)1402 (Given - Provider: Kamila Deluna RN) 5-10 mg, Oral, EVERY 3 HOURS PRN, other, pain control or improvement in physical function. Hold dose for analgesic side effects., Starting on Thu06/11/22 at 0538, Notify provider to assess for uncontro 1525 (Given - Provider: Latonia Farris RN)1613 (Given - Provider: Latonia Farris RN)1917 (Given - Provider: Latonia Farris RN)2012 (Given - Provider: Theresa Melchor RN)2303 (Given - Provider: Theresa Melchor RN) 1705 (Given - Provider: Kavin Rachel , RN)2003 (Given - Provider: Ginger Mccabe RN)2249 (Given - Provider: Joce Cervantes RN) lled pain or analgesic side effects. Hol d while on DIRECTOR OPERATIONS BROADCAST or with regular IV opioid dosing. Maximum [...] mg 1246 (Give n - Provider: Latonia Farris, ALDO)1841 (Given - Provider: Latonia Farris RN) 0502 [...] DAILY, First dos e on Thu06/10/22 at 2000
If no bowel movement in 24 hours, increase to 2 tablets PO. Hold for loose stools. Preferred agent for constipation related to opioids.&nbs p;Hold for loose stools.
Or senna-docusate (SENOKOT-S/PERICOLACE) 8.6-50 MG per tablet 2 tabletJump to med 2 tablet, Oral, 2 TIMES DAILY, First dos e on Thu06/10/22 at 2000
Hold for loose stools. Preferred agent for [...] documented as of this encounter Care Teams Sql Database Administrator Relationship Specialty Start Date End Date Justin Loya MD PCP - General Family Practice 02/19/11 [facility] [address] [place] [phone] Silas Sanitago MD MD Pain Clinic 11/29/13 [facility] [address] [facility] [place] [address] Caden Leone, Assigned Surgical Provider 07/20 01/08 MD [address] [place], [place] [address] documented as of this encounter
--- OUTSIDE RECORDS SUMMARY | 2022-06-23 17:38 | XMS_ITS | Encounter Summary ---
:1990 Author Organization [place] Address [facility] [place] [address] Care Team Providers Name Role Phone Justin Loya MD Primary Care Provider Silas Santiago MD Unavailable Caden Leone MD Unavailable [phone] Encounter Details Date Type Department Care Team Description 05/31/2022 Travel Social History Tobacco Use Types Packs/Day Years Used Date Smoking Tobacco: Never Smokeless Tobacco: Never Alcohol Use Standard Drinks/Week Comments No 0 (1 standard drink = 0.6 oz pure alcoho l) Sex Assigned at Date Recorded Not on file COVID-19 Exposure Response Date Recorded In the last 10 days, have you been in contact with No / Unsu re 05/31/2022 8:49 PM GANG RIPSAW OPERATOR someone who was confirmed or suspected to have Coronavirus/COVID-19? documented as of this encounter Plan of Treatment Not on filedocumented as of this encounter Visit Diagnoses Not on filedocumented in this encounter Additional Health Concerns Assessment Noted Time PHQ-9 Depression Total Score: 2 01/26/2019 11:18 AM CD T documented as of this encounter Care Teams Machine Specialist Relationship Specialty Start Date End Date Justin Loya MD PCP - General Family Practice 02/19/11 [facility] [address] [place] [address] Silas Santiago MD MD Pain Clinic 11/29/13 [facility] [address] [place], [place] [address] Caden Leone, Assigned Surgical Provider 07/20 01/08 [place] [address] documented as of this encounter
--- OUTSIDE RECORDS SUMMARY | 2022-06-23 17:39 | XMS_ITS | Encounter Summary ---
:1990 Author Organization [place] Address [facility] [address] Care Team Providers Name Role Phone Justin Loya MD Primary Care Provider Silas Santiago MD Unavailable Caden Leone MD Unavailable [phone] Encounter Details Date Type Department Care Team Description 04/26/2022 Travel Social History Tobacco Use Types Packs/Day Years Used Date Smoking Tobacco: Never Smokeless Tobacco: Never Alcohol Use Standard Drinks/Week Comments No 0 (1 standard drink = 0.6 oz pure alcoho l) Sex Assigned at Date Recorded Not on file COVID-19 Exposure Response Date Recorded In the last 10 days, have you been in contact with No / Unsu re 04/26/2022 7:01 AM CDT someone who was confirmed or suspected to have Coronavirus/COVID-19? documented as of this encounter Plan of Treatment Not on filedocumented as of this encounter Visit Diagnoses Not on filedocumented in this encounter Additional Health Concerns Assessment Noted Time PHQ-9 Depression Total Score: 2 01/26/2019 11:18 AM CD T documented as of this encounter Care Teams Stick Roller Relationship Specialty Start Date End Date Justin Loya MD PCP - General Family Practice 02/19/11 [facility] [address] [place] [address] Silas Santiago MD MD Pain Clinic 11/29/13 [facility] [address] [place], [place] [address] Caden Leone, Assigned Surgical Provider 07/20 01/08 [place] [address] documented as of this encounter
--- OUTSIDE RECORDS SUMMARY | 2022-06-23 17:39 | XMS_ITS | Encounter Summary ---
:1990 Author Organization [place] Address [address] [place] [address] Care Team Providers Name Role Phone Justin Loya MD Primary Care Provider Silas Santiago MD Unavailable Caden Leone MD Unavailable [phone] Reason for Visit Reason Comments Rule Out Labor Encounter Details Date Type Department Care Team Description 04/05/2022 Hospital Encounter [facility] Karie Aguilar Indication for care Johann Hayden MD in labor or Birthplace [address] [facility] delivery (Primary [address]) [address] [place] [address] [place] [phone] [address] (Work) [phone] Social History Tobacco Use Types Packs/Day Years Used Date Smoking Tobacco: Never Smokeless Tobacco: Never Alcohol Use Standard Drinks/Week Comments No 0 (1 standard drink = 0.6 oz pure alcoho l) Sex Assigned at Date Recorded Not on file COVID-19 Exposure Response Date Recorded In the last 10 days, have you been in contact with No / Unsu re 04/05/2022 10:25 AM CDT someone who was confirmed or suspected to have Coronavirus/COVID-19? documented as of this encounter Last Filed Vital Signs Vital Sign Reading Time Taken Comments Blood Pressure 114/67 04/05/2022 10:22 AM CDT Pulse - - Temperature 36.9 ??C (98.4 ??F) 04/05/2022 10:22 AM CDT Respiratory Rate 16 04/05/2022 10:22 AM CDT Oxygen Saturation - - Inhaled Oxygen Concentration - - Weight 69.4 kg (153 lb) 04/05/2022 10:26 AM CDT Height 170.2 cm (5' 7) 04/05/2022 10:26 AM CDT Body Mass Index 23.96 04/05/2022 10:26 AM CDT documented in this encounter Discharge Instructions Discharge InstructionsRosey Su RN - 04/05/2022 11:47 AM CDT Discharge Instruction for Undelivered Patients You were seen for: Labor Assessment We Consulted: Dr Aguilar You had (Test or Medicine): Cervical exam and monitoring and a UA Diet: Drink 8 to 12 glasses of liquids (milk, juice, water) every day. You may eat meals and snacks. Activity: Call your doctor or nurse senior graduate advisor if your baby is moving less than usual. Call your provider if you notice: Swelling in your face or increased swelling in your hands or legs. Headaches that are not relieved by Tylenol (acetaminophen). Changes in your vision (blurring: seeing spots or stars.) Nausea (sick to your stomach) and vomiting (throwing up). Weight gain of 5 pounds or more per week. Heartburn that doesn't go away. Signs of bladder infection: pain when you urinate (use the toilet), need to go more often and more urgently. The bag of jauregui (rupture of membranes) breaks, or you notice leaking in your underwear. Bright red blood in your underwear. Abdominal (lower belly) or stomach pain. For first baby: Contractions (tightening) less than 5 minutes apart for one hour or more. Second (plus) baby: Contractions (tightening) less than 10 minutes apart and getting stronger. *If less than 34 weeks: Contractions (tightening) more than 6 times in one hour. Increase or change in vaginal discharge (note the color and amount) Follow-up: As scheduled in the clinic documented in this encounter Medications at Time of Discharge Medication Sig Dispensed Refills Start Date End Date Vit-Fe Take 1 tablet by 0 Fumarate-FA ( mouth daily MULTIVITAMIN PLUS IRON) 27-1 MG TABSIndications: nitroFURantoin Take 1 capsule 14 capsule 0 04/05/20222021 macrocrystal-monohydrate (100 mg) by mouth (MACROBID) 100 MG 2 times daily for capsuleIndications: 7 days Indication for care in labor or delivery FEROSUL 325 (65 Fe) MG TAKE 1 TABLET BY 0 021 04/18/2022 tablet MOUTH TWICE DAILY WITH MEALS ferrous sulfate (FEROSUL) Take 325 mg by 0 202006/13/2022 325 (65 Fe) MG tablet mouth daily documented as of this encounter Miscellaneous Notes Plan of Care - Rosey Su RN - 04/05/2022 11:52 AM CDT Patient has had one contraction since arrival. FHTs in 130s and appears to be appropriate for gestational age. UA reviewed by Dr Aguilar. Cervical exam ordered by Dr Aguilar, patient verbally consentedto exam, but while examining she requested to stop before I was able to reach outer os of cervix, appears to be high. Patient was reassured by this. Orders received for discharge home with Macrobid prescription, escribed. Discussed in detail reasons to call back if indicated and all questions answered, pt has an appointment on Thursday. Discharged home in stable condition, AVS reviewed and signed. Plan of Care - Rosey Su RN - 04/05/2022 10:43 AM CDT at 29w6d presented to [facility] after talking to Dr Aguilar. She states that she has been having somecontractions throughout the night, every 20-40 minutes and also some pain in lower right abdomen. Placed on monitors with verbal consent. She is requesting not to have cervical exam at this time unlessneeded later. UA ordered and sent. documented in this encounter Plan of Treatment Not on filedocumented as of this encounter Procedures Procedure Name Priority Date/Time Associated Comments Diagnosis ROUTINE UA WITH STAT 04/05/2022 10:40 Results for this MICROSCOPIC REFLEX TO AM CDT proced ure are in CULTURE the results section. URINE CULTURE STAT 04/05/2022 10:40 Results fo r this AM CDT procedure are i n the results section. NON-STRESS TEST 04/05/2022 12:00 - HIM SCAN AM CDT documented in this encounter Results Urine Culture (04/05/2022 10:40 AM CDT) [facility] Method Time Signature Culture 10,000-50,000 CARLOS 04/07/2022 UU IDD CFU/mL Mixture 5:38 AM CDT LABORATORY of urogenital estephania Specimen Anatomical Collection Method Collection Time Receive d Time (Source) Location / / Volume Laterality Urine MID-STREAM URINE Non-blood 04/05/2022 10:40 022 SPECIMEN / Unknown Collection / AM CDT 10:57 AM CDT Unknown Karie Aguilar MD LAB - MICRO GENERAL ORDERABLES Performing Organization Address City/State/ZIP Code Phon e Number UU IDD LABORATORY [facility] [place] [address] Diag. Lab [address] [facility], [address] (ABNORMAL) UA with Microscopic reflex to Culture (04/05/2022 10:40 AM CDT) [facility] Method Time Signature Color Urine Light Colorless, 04/05/2022 LABORATORY Yellow Straw, 10:57 AM Light CDT Yellow, Yellow Appearance Urine Clear Clear 04/05/2022 LABORATOR Y 10:57 AM CDT Glucose Urine Negative Negative 04/05/2022 LABORATORY mg/dL 10:57 AM CDT Bilirubin Urine Negative Negative 04/05/2022 LABORATORY 10:57 AM CDT Ketones Urine Negative Negative 04/05/2022 LABORATORY mg/dL 10:57 AM CDT Specific Rhodell 1.013 1.003 - 04/05/2022 LABORATOR Y Urine 1.035 10:57 AM CDT Blood Urine Negative Negative 04/05/2022 LABORATORY 10:57 AM CDT pH Urine 8.0 (H) 5.0 - 7.0 04/05/2022 LABORATORY 10:57 AM CDT Protein Albumin Negative Negative 04/05/2022 LABORATORY Urine mg/dL 10:57 AM CDT Urobilinogen Normal Normal, 2.0 04/05/2022 LABORATORY Urine mg/dL 10:57 AM CDT Nitrite Urine Negative Negative 04/05/2022 LABORATORY 10:57 AM CDT Leukocyte Large (A) Negative 04/05/2022 LABORATORY Esterase Urine 10:57 AM CDT RBC Urine <1 <=2 /HPF 04/05/2022 LABORATORY 10:57 AM CDT WBC Urine 17 (H) <=5 /HPF 04/05/2022 LABORATORY 10:57 AM CDT Squamous 9 (H) <=1 /HPF 04/05/2022 LABORATORY Epithelials 10:57 AM Urine CDT Specimen Anatomical Collection Method Collection Time Receive d Time (Source) Location / / Volume Laterality Urine MID-STREAM URINE Non-blood 04/05/2022 10:40 022 SPECIMEN / Unknown Collection / AM CDT 10:49 AM CDT Unknown Narrative LABORATORY - 04/05/2022 10:57 AM CDT Urine Culture ordered based on laborator y criteria Karie Aguilar MD LAB - URINE ORDERAB LES [facility] Organization Address City/State/ZIP Code [place] [address] Care Lab [address] 1[address] floor, Room [address] NON-STRESS TEST - HIM SCAN (04/05/2022 12:00 AM CDT) Specimen (Source) Anatomical Location Collection Method / Collectio n Time Received Time / Laterality Volume 04/05/2022 Narrative This result has an attachment that is no t available. Provider Outside PROCEDURES documented in this encounter Visit Diagnoses Diagnosis Indication for care in labor or delivery - Primary Unspecified indication for care or inter vention related to labor and delivery, unspecified as to episode of care Indication for care in labor or delivery [...] documented as of this encounter Care Teams Campaign Advisor Relationship Specialty Start Date End Date Justin Loya MD PCP - General Family Practice 02/19/11 [facility] [address] [place] [phone] Silas Santiago MD MD Pain Clinic 11/29/13 [facility] [address] [place], [place] [address] Caden Leone, Assigned Surgical Provider 07/20 01/08 [place] [address] documented as of this encounter
--- OUTSIDE RECORDS SUMMARY | 2022-06-23 17:39 | XMS_ITS | Encounter Summary ---
:1990 Author Organization [place] Address [facility] [place] [address] Care Team Providers Name Role Phone Justin Loya MD Primary Care Provider Silas Santiago MD Unavailable Caden Leone MD Unavailable [phone] Encounter Details Date Type Department Care Team Description 05/03/2022 Travel Social History Tobacco Use Types Packs/Day Years Used Date Smoking Tobacco: Never Smokeless Tobacco: Never Alcohol Use Standard Drinks/Week Comments No 0 (1 standard drink = 0.6 oz pure alcoho l) Sex Assigned at Date Recorded Not on file COVID-19 Exposure Response Date Recorded In the last 10 days, have you been in contact with No / Unsu re 05/03/2022 4:33 PM CDT someone who was confirmed or suspected to have Coronavirus/COVID-19? documented as of this encounter Plan of Treatment Not on filedocumented as of this encounter Visit Diagnoses Not on filedocumented in this encounter Additional Health Concerns Assessment Noted Time PHQ-9 Depression Total Score: 2 01/26/2019 11:18 AM CD T documented as of this encounter Care Teams Technical Agronomist Relationship Specialty Start Date End Date Justin Loya MD PCP - General Family Practice 02/19/[address] [facility] [address] [place] [address] Silas Santiago MD MD Pain Clinic 11/29/13 [facility] [address] [place], [place] [address] Caden Leone, Assigned Surgical Provider 07/20 01/08 [place] [address] documented as of this encounter
--- OUTSIDE RECORDS SUMMARY | 2022-06-23 17:39 | XMS_ITS | Encounter Summary ---
:1990 Author Organization [place] Address [facility] [place] [address] Care Team Providers Name Role Phone Justin Loya MD Primary Care Provider Silas Santiago MD Unavailable Caden Leone MD Unavailable [phone] Encounter Details Date Type Department Care Team Description 05/22/2022 Travel Social History Tobacco Use Types Packs/Day Years Used Date Smoking Tobacco: Never Smokeless Tobacco: Never Alcohol Use Standard Drinks/Week Comments No 0 (1 standard drink = 0.6 oz pure alcoho l) Sex Assigned at Date Recorded Not on file COVID-19 Exposure Response Date Recorded In the last 10 days, have you been in contact with No / Unsu re 05/22/2022 11:11 AM CDT someone who was confirmed or suspected to have Coronavirus/COVID-19? documented as of this encounter Plan of Treatment Not on filedocumented as of this encounter Visit Diagnoses Not on filedocumented in this encounter Additional Health Concerns Assessment Noted Time PHQ-9 Depression Total Score: 2 01/26/2019 11:18 AM CD T documented as of this encounter Care Teams Senior Product Development Scientist Relationship Specialty Start Date End Date Justin Loya MD PCP - General Family Practice 02/19/11 [facility] [address] [place] [address] Silas Santiago MD MD Pain Clinic 11/29/13 [facility] [address] [place], [place] [address] Caden Leone, Assigned Surgical Provider 07/20 01/08 [place] [address] documented as of this encounter
--- OUTSIDE RECORDS SUMMARY | 2022-06-23 17:39 | XMS_ITS | Encounter Summary ---
:1990 Author Organization [place] Address [facility] [place] [address] Care Team Providers Name Role Phone Justin Loya MD Primary Care Provider Silas Santiago MD Unavailable Caden Leone MD Unavailable [phone] Encounter Details Date Type Department Care Team Description 04/28/2022 Travel Social History Tobacco Use Types Packs/Day Years Used Date Smoking Tobacco: Never Smokeless Tobacco: Never Alcohol Use Standard Drinks/Week Comments No 0 (1 standard drink = 0.6 oz pure alcoho l) Sex Assigned at Date Recorded Not on file COVID-19 Exposure Response Date Recorded In the last 10 days, have you been in contact with No / Unsu re 04/28/2022 9:02 PM CDT someone who was confirmed or suspected to have Coronavirus/COVID-19? documented as of this encounter Plan of Treatment Not on filedocumented as of this encounter Visit Diagnoses Not on filedocumented in this encounter Additional Health Concerns Assessment Noted Time PHQ-9 Depression Total Score: 2 01/26/2019 11:18 AM CD T documented as of this encounter Care Teams Physician Gynecologist Relationship Specialty Start Date End Date Justin Loya MD PCP - General Family Practice 02/19/11 [facility] [address] [place] [address] Silas Santiago MD MD Pain Clinic 11/29/13 [facility] [address] [place], [place] [address] Caden Leone, Assigned Surgical Provider 07/20 01/08 [place] [address] documented as of this encounter
--- OUTSIDE RECORDS SUMMARY | 2022-06-23 17:39 | XMS_ITS | Encounter Summary ---
:1990 Author Organization [place] Address [facility] [place] [address] Care Team Providers Name Role Phone Justin Loya MD Primary Care Provider Silas Santiago MD Unavailable Caden Leone MD Unavailable [phone] Encounter Details Date Type Department Care Team Description 05/22/2022 Medical Correspondence [facility] Outside, MATERNAL AND Health Info [facility] Provider MEDICINE Sr[facility] [address] [place] [address] Social History Tobacco Use Types Packs/Day Years [...] documented as of this encounter Care Teams Subsorter Relationship Specialty Start Date End Date Justin Loya MD PCP - General Family Practice 02/19/11 [facility] [address] [place] [address] Silas Santiago MD MD Pain Clinic 11/29/13 [facility] [address] [place] [address] Caden Leone, Assigned Surgical Provider 07/20 01/08 [place] [address] documented as of this encounter
--- OUTSIDE RECORDS SUMMARY | 2022-06-23 17:39 | XMS_ITS | Encounter Summary ---
:1990 Author Organization [place] Address [address] [facility] [place] [address] Care Team Providers Name Role Phone Justin Loya MD Primary Care Provider Silas Santiago MD Unavailable Caden Leone MD Unavailable [phone] Reason for Visit Reason Comments Decreased Movement Encounter Details Date Type Department Care Team Description 05/03/2022 Hospital Encounter [facility] Serafin Haywood MD [facility] [address] [place] [phone] (Wo rk) Social History Tobacco Use Types Packs/Day Years [...] Sign Reading Time Taken Comments Blood Pressure 123/72 05/03/2022 4:30 PM CDT Pulse - - Temperature 36.5 ??C (97.7 ??F) 05/03/2022 4:36 PM CDT Respiratory Rate 16 05/03/2022 4:36 PM CDT Oxygen Saturation - - Inhaled Oxygen Concentration - - Weight 73 kg (161 lb) 05/03/2022 4:36 PM CDT Height 170.2 cm (5' 7) 05/03/2022 4:36 PM CDT Body Mass Index 25.22 05/03/2022 4:36 PM CDT documented in this encounter Discharge Instructions Discharge InstructionsFaith Devi RN - 05/03/2022 5:56 PM CDT Discharge Instruction for Undelivered Patients You were seen for: decreased movement We Consulted: Dr. Wallace You had (Test or Medicine):baby heart rate and contraction monitoring Diet: Drink 8 to 12 glasses of liquids (milk, juice, water) every day. You may eat meals and snacks. Activity: Count kicks everyday (see handout) Call your doctor or nurse dairy helper if your baby is moving less than [...] underwear. Abdominal (lower belly) or stomach pain. Second (plus) baby: Contractions (tightening) less than 10 minutes apart and getting stronger. *If less than 34 weeks: Contractions (tightening) more than 6 times in one hour. Increase or change in vaginal discharge (note the color and amount) Follow-up: Make an appointment to be seen on Thursday and Thursday if more comfortable then waiting until Thursday. documented in this encounter Medications at Time of Discharge Medication Sig Dispensed Refills Start Date End Date polyethylene glycol Take 1 packet by 0 (MIRALAX) 17 g packet mouth daily Vit-Fe Take 1 tablet by 0 Fumarate-FA ( mouth daily MULTIVITAMIN PLUS IRON) 27-1 MG TABSIndications: ferrous sulfate (FEROSUL) Take 325 mg by 0 202006/13/2022 325 (65 Fe) MG tablet mouth daily documented as of this encounter Miscellaneous Notes Plan of Care - Faith Devi RN - 05/03/2022 6:00 PM CDT Discharged home. Verbalizes understanding of plan of care. Provider Notification - Faith Devi RN - 05/03/2022 5:20 PM CDT 05/03/22 1720 Provider Notification Provider Name/Title Dr. Wallace Method of Notification Electronic Page;Phone Request Evaluate - Remote Notification Reason Patient Arrived;Status Update Spoke with Dr. Wallace related to patient's arrival and c/o. Patient has had Category 1 tracing with reports of feeling of movement. He will look at the ultrasound as patient wondering if decreased fluid could affect baby's movement and call back. Plan of Care - Faiht Devi RN - 05/03/2022 4:40 PM CDT Data: Patient presented to [facility] at 1625. Reason for maternal/ assessment per patient is decreased movement. Patient reports has not felt baby move much today and she tried laying on her left side and drinking cold fluids with no result. Patient is a . record reviewed. has been uncomplicated thus far. Gestational Age 33 weeks 6 days. VSS. movement present. Patient denies contractions, backache,abnormal vaginal discharge, pelvic pressure, UTI symptoms, GI problems, bloody show, vaginal bleeding, edema, headache, visual disturbances, epigastric or URQ pain, abdominal pain, rupture of membranes. Support persons is not present. Action: Verbal consent for EFM. Triage assessment completed. Bill of rights reviewed. Response: Patient verbalized agreement with plan. Will contact MD for plan. documented in this encounter Plan of Treatment Not on filedocumented as of this encounter Visit Diagnoses Not on filedocumented in this encounter Administered Medications Inactive Administered Medications - up to 3 most recent administrations Medication Order MAR Action Action Date Dose Rate Site lidocaine (LMX4) cream Topical, EVERY 1 HOUR PRN, pain, with VA D insertion, Starting on 05/03/22 at 1752, Apply at least 30 minutes prior to VAD insertion in divided doses as needed for size of site for insertion. MAX Dose: 2.5 g (?? of 5 g tube) Do NOT give if patient has a history of allergy to any local anesthetic or any loyda product. Do NOT use both lidocaine intradermal/subcu taneous injection and the lidocaine cream on the same site., OB Preadmission lidocaine 1 % 0.1-1 mL 0.1-1 mL, Other, EVERY 1 HOUR PRN, mild pain with VAD insertion, Starting on 05/03/22 at 1752, MAX dose 1 mL subcutan eous OR intradermal along the side of the vein in divided doses as needed for VAD insertion. Do NOT give if patient has a history of allergy to any local anesthet ic or any loyda product. Do NOT use both lidocaine intradermal/subcutaneous injec tion and the lidocaine cream on the same site., OB Preadmission sodium chloride (PF) 0.9% PF flush 3 mL 3 mL, Intracatheter, EVERY 8 HOURS, First dose on 05/03/22 at 1800, to lock peripheral IV dormant line, OB Preadmission sodium chloride (PF) 0.9% PF flush 3 mL 3 mL, Intracatheter, EVERY 1 MIN PRN, li ne flush, other, to ensure patency or to lock dormant line, Starting on 05/03/22 at 1752, O B Preadmission documented in this encounter Active and Recently Administered Medications Times are shown in CDT. Scheduled Medication Order 05/01/2022 05/02/2022 05/03/2022 sodium chloride (PF) 0.9% PF flush 3 mL 1800 (Canceled Entry - Provider: Orders Generic Provider - Comment: Automatically canceled at discontinue of medication order) 3 mL, Intracatheter, EVERY 8 HOURS, Firs t dose on 05/03/22 at 1800, to lock peripheral IV dormant line, OB Preadmission PRN Medication Order 05/01/2022 05/02/2022 05/03/2022 lidocaine (LMX4) cream Topical, EVERY 1 HOUR PRN, pain, with VA D insertion, Starting on 05/03/22 at 1752, Apply at least 30 minutes prior to VAD insertion in divided doses as needed for size of site for insertion. MAX Dos e: 2.5 g (?? of 5 g tube) Do NOT give if patient has a history of allergy to any local anesthetic or any loyda product. Do NOT use both lidocaine intradermal/subcutaneous injection and the lidocaine cream on the same site., OB Preadmission lidocaine 1 % 0.1-1 mL 0.1-1 mL, Other, EVERY 1 HOUR PRN, mild pain with VAD insertion, Starting on 05/03/22 at 1752, MAX dose 1 mL subcutaneous OR intradermal along the side of the vein in divided doses as needed for VAD insertion. Do NOT give if patient has a history of allergy to any local anesthetic or any loyda product. Do NOT use both lidocaine intradermal/subcutaneous injection and the lidocaine cream on the same site., OB Preadmission sodium chloride (PF) 0.9% PF flush 3 mL 3 mL, Intracatheter, EVERY 1 MIN PRN, li ne flush, other, to ensure patency or to lock dormant line, Starting on 05/03/22 at 1752, OB Preadmission documented in this encounter Additional Health Concerns Assessment Noted Time PHQ-9 Depression Total Score: 2 01/26/2019 11:18 AM CD T documented as of this encounter Care Teams Auto Suspension And Steering Mechanic Relationship Specialty Start Date End Date Justin Loya MD PCP - General Family Practice 02/19/11 [facility] [address] [place] [phone] Silas Santiago MD MD Pain Clinic 11/29/13 [facility] [address] [facility] [place] [address] Caden Leone, Assigned Surgical Provider 07/20 01/08 MD [address] [place], [place] [id number] documented as of this encounter
--- OUTSIDE RECORDS SUMMARY | 2022-06-23 17:39 | XMS_ITS | Encounter Summary ---
:1990 Author Organization [place] Address [facility] [place] [address] Care Team Providers Name Role Phone Justin Loya MD Primary Care Provider Silas Santiago MD Unavailable Caden Leone MD Unavailable [phone] Encounter Details Date Type Department Care Team Description 04/18/2022 Travel Social History Tobacco Use Types Packs/Day Years Used Date Smoking Tobacco: Never Smokeless Tobacco: Never Alcohol Use Standard Drinks/Week Comments No 0 (1 standard drink = 0.6 oz pure alcoho l) Sex Assigned at Date Recorded Not on file COVID-19 Exposure Response Date Recorded In the last 10 days, have you been in contact with No / Unsu re 04/18/2022 1:17 PM CDT someone who was confirmed or suspected to have Coronavirus/COVID-19? documented as of this encounter Plan of Treatment Not on filedocumented as of this encounter Visit Diagnoses Not on filedocumented in this encounter Additional Health Concerns Assessment Noted Time PHQ-9 Depression Total Score: 2 01/26/2019 11:18 AM CD T documented as of this encounter Care Teams Painter Ordnance Relationship Specialty Start Date End Date Justin Loya MD PCP - General Family Practice 02/19/11 [facility] [address] [place] [phone] Silas Santiago MD MD Pain Clinic 11/29/13 [facility] [address] [place], [place] [address] Caden Leone, Assigned Surgical Provider 07/20 01/08 [place] [address] documented as of this encounter
--- OUTSIDE RECORDS SUMMARY | 2022-06-23 17:39 | XMS_ITS | Encounter Summary ---
:1990 Author Organization [place] Address [address] [facility] [place] [address] Care Team Providers Name Role Phone Justin Loya MD Primary Care Provider Silas Santiago MD Unavailable Caden Leone MD Unavailable [phone] Encounter Details Date Type Department Care Team Description 05/21/2022 External Order [facility] Outside, Provide r Results Molecular Diagnostic s [address] [place] [address] Social History Tobacco Use Types Packs/Day Years [...] Name Priority Date/Time Associated Diagnosis Comme nts HEMOGLOBIN Routine 05/21/2022 12:00 AM Results for this CDT procedure are i n the results section . documented in this encounter Results (ABNORMAL) Hemoglobin (05/21/2022 12:00 AM CDT) Analysis Performed At Patho logist Time Signature Hemoglobin 11.6 (L) 12.0 - NON-INTERFACE (External) 15.0 G/DL D (ONBASE SCANS) Comment: Fingerstick Specimen (Source) Anatomical Location Collection Method / Collectio n Time Received Time / Laterality Volume Blood 05/21/2022 Narrative [facility] - 05/29/2022 1:44 PM ENERGY BROKER Verified by Porsha Maria on 05/20. Provider Outside LAB - BLOOD ORDERABLES Performing Organization Address City/State/ZIP Code Phon e Number [facility] NON-INTERFACED (ONBASE SCANS) documented in this encounter Visit Diagnoses Not on filedocumented in this encounter Additional Health Concerns Assessment Noted Time PHQ-9 Depression Total Score: 2 01/26/2019 11:18 AM CD T documented as of this encounter Care Teams [employer] Relationship Specialty Start Date End Date Justin Loya MD PCP - General Family Practice 02/19/11 [facility] [address] [place] [address] Silas Santiago MD MD Pain Clinic 11/29/13 [facility] [address] [place], [place] [address] Caden Leone, Assigned Surgical Provider 07/20 01/08 MD [address] [place], [place] [id number] documented as of this encounter
--- OUTSIDE RECORDS SUMMARY | 2022-06-23 17:39 | XMS_ITS | Encounter Summary ---
:1990 Author Organization [place] Address [address] [facility] [place] [address] Care Team Providers Name Role Phone Justin Loya MD Primary Care Provider Silas Santiago MD Unavailable Caden Leone MD Unavailable [phone] Reason for Referral Diagnostic Imaging Ultrasound (Routine) - Pending Review Specialty Diagnoses / Procedures Referred By Contact Refer red To Contact Diagnoses related condition, antepartum Andrew Ramsay MD Procedures [facility] US Comprehensive Single [address] [place] [address] Referral ID Status Reason Start Date Expiration Date Visits V isits Requested Authorized [id number] Pending 05/22/2022 05/22/2023 1 1 Review Reason for Visit Diagnostic Imaging Ultrasound (Routine) - Pending Review Specialty Diagnoses / Procedures Referred By Contact Refer red To Contact Diagnoses related condition, antepartum Andrew Ramsay MD Procedures [facility] US Comprehensive Single [address] [address] Referral ID Status Reason Start Date Expiration Date Visits V isits Requested Authorized [id number] Pending 05/22/2022 05/22/2023 1 1 Review Encounter Details Date Type Department Care Team Description 05/22/2022 Hospital Encounter [facility] [place] Macey Henao MD [address] [place] [address] related Maternal Mellisa Lu, DO [address] [place] [address] condition, Medicine Center antepartum [place] [address] [place] [address] [address] [place] [address] Social History Tobacco Use Types Packs/Day Years [...] mouth daily documented as of this encounter Plan of Treatment Not on filedocumented as of this encounter Procedures Procedure Name Priority Date/Time Associated Comments Diagnosis [facility] US COMPREHENSIVE Routine 05/22/2022 11:50 relate d Results for this SINGLE AM CDT condition, procedure are i n antepartum the results section. documented in this encounter Results [facility] US Comprehensive Single (05/22/2022 11:50 [...] HUFF Study Date: 07/22/2021 11:10am Pat. NO: [id number] Referring ??MD: ANDREW RAMSAY Site: [facility] Distillery Laborer: Janusz Booker RDMS : 1990 Age: 31 INDICATION New referral for suspected placenta accr eta. METHOD Transabdominal ultrasound examination. V iew: Suboptimal view: limited by late gestational age Valles . Number of fetuses: 1 DATING ? Date ?Details ?Gest. age ?ANDRE LMP ?09/08/2021 ? 36 w + 4 d ? 06/15/2022 Prior assessment ? / ? GA: 7 w + 3 d [...] Biometry: BPD ?93.1 ?mm ? 37w 6d ?Hadlock OFD ?115.1 ?mm ?36w 1d ?Nicolaides HC ?332.1 ?mm ?37w 6d ?Hadlock AC ?321.6 ?mm ?36w 1d ?48% ?Hadlock Femur ?64.8 ? mm ?33w 3d ?Hadlock Humerus ?58.3 ?mm ? 33w 5d ?Deepa Weight Calculation: EFW ? 2,764 ?g ? 33% ?Hadlock EFW (lb,oz) ? 6 lb 1 ?oz EFW by ?Hadlock ([id number]-FL) Head / Face / Neck Biometry: Wet Mix Operator ? 6.2 ? mm ANATOMY The following structures appear normal: Head / Neck ? Cranium. Head size. Head shape. Lateral ventricles. Midline falx. Cavum septi pellucidi. Parenchyma. Thalami. ? Neck. Face ? Lips. Profile. Nose. Maxilla. Mandible. Orbits. Heart / Thorax ?RVOT view. LVOT view. Situs. 8-vyprts-vrvnfuk view. Cardiac position. Cardiac size. Cardiac rhythm. [...] RECOMMENDATION We discussed the findings on today's [facility] ras[facility] with the patient. Destiney was referred due to concern about possible loss of retroplacental hypoechoic space on yesterday's BPP with [facility] telecommunications field engineer. The finding was concerning for possible placenta [...] present but not detected Procedure Note Mellisa Lu DO - 05/22/2022 Comprehensive Maria Guadalupe. Name:LINA HUFFHStudy Date:09/2021 11:10am Pat. NO: [id number] MD:ANDREW ARZATE [facility]Shun Arevalo :1990Age:31 INDICATION New referral for suspected [...] 6 lb 1 oz EFW by Hadlock ([id number]-AN-MO-FL) Head / Face / Neck Biometry: Wet Mix Operator 6.2 mm ANATOMY The following structures appear normal: Head / Neck Cranium. Head size. Head sha pe. Lateral ventricles. Midline falx. Cavum septi pellucidi. Parenchyma. Thalami. Neck. Face Lips. Profile. Nose. Maxilla. Katharina ble. Orbits. Heart / Thorax RVOT view. LVOT view. Sit us. 3-vgovaw-etcdsob view. Cardiac position. Cardiac size. Cardiac rhythm. [...] RECOMMENDATION We [facility] [place]. Destiney was referred due to concern about possible loss of retroplacental hypoechoic space on yesterday's BPP with [facility] telecommunications field engineer. The finding was concerning for possible placenta [...] Thank you for the opportunity to partici stack in the care of this patient. If [...] for placenta accreta spectrum. Andrew Ramsay MD IMG MFM US ORDERABLES documented in this encounter Visit Diagnoses Diagnosis related condition, antepartum documented in this encounter Additional Health Concerns Assessment Noted Time PHQ-9 Depression Total Score: 2 01/26/2019 11:18 AM CD T documented as of this encounter Care Teams Electrician Constructor Supervisor Relationship Specialty Start Date End Date Justin Loya MD PCP - General Family Practice 02/19/11 [facility] [address] [place] [address] Silas Santiago MD MD Pain Clinic 11/29/13 [facility] [address] [place], [place] [address] Caden Leone, Assigned Surgical Provider 07/20 01/08 MD [address] [place], [place] [address] documented as of this encounter
--- OUTSIDE RECORDS SUMMARY | 2022-06-23 17:39 | XMS_ITS | Encounter Summary ---
:1990 Author Organization [place] Address [address] [facility] [place] [address] Care Team Providers Name Role Phone Justin Loya MD Primary Care Provider Silas Santiago MD Unavailable Caden Leone MD Unavailable [phone] Reason for Referral Consultation (Routine: Next available opening) - Pending Review Specialty Diagnoses / Procedures Referred By Contact Refer red To Contact Diagnoses related condition, antepartum Kimberly Ramsay MD Maternal Med [address] [place] [address] [address] [place] [address] Phone: Referral ID Status Reason Start Date Expiration Date Visits V isits Requested Authorized [id number] Pending 05/22/2022 05/22/2023 1 1 Review Encounter Details Date Type Department Care Team Description 05/22/2022 Transcribe [facility] Kimberly Ramsaycy related Maternal MD Juliano condition, antepartum Medicine [facility] [address] (Primary Dx) [address] [facility] [address] [facility] [place] [address] [address] [place] [address] Social History Tobacco Use Types Packs/Day [...] as of this encounter Plan of Treatment Scheduled Referrals Name Type Priority Associated Diagnoses Order S chedule Mat Med Ctr Referral Routine: Next related Expe cted: Referral - available opening condition, 05/22/2022 antepartum (Approximate), Expires: 05/22/2023 documented as of this encounter Visit Diagnoses Diagnosis related condition, antepartum - Primary documented in this encounter Additional Health Concerns Assessment Noted Time PHQ-9 Depression Total Score: 2 01/26/2019 11:18 AM CD T documented as of this encounter Care Teams Convention Worker Relationship Specialty Start Date End Date Justin Loya MD PCP - General Family Practice 02/19/11 [facility] [address] [place] [phone] Silas Santiago MD MD Pain Clinic 11/29/13 [facility] [address] [facility] [place] [address] Caden Leone, Assigned Surgical Provider 07/20 01/08 [place] [address] documented as of this encounter
--- OUTSIDE RECORDS SUMMARY | 2022-06-23 17:39 | XMS_ITS | Encounter Summary ---
:1990 Author Organization [place] Address [facility] [place] [address] Care Team Providers Name Role Phone Justin Loya MD Primary Care Provider Silas Santiago MD Unavailable Caden Leone MD Unavailable [phone] Encounter Details Date Type Department Care Team Description 04/05/2022 Travel Social History Tobacco Use Types Packs/Day [...] documented as of this encounter Care Teams Brick Washer Relationship Specialty Start Date End Date Justin Loya MD PCP - General Family Practice 02/19/11 [facility] [address] [place] [address] Silsa Santiago MD MD Pain Clinic 11/29/13 [facility] [address] [place], [place] [address] Caden Leone, Assigned Surgical Provider 07/20 01/08 [place] [address] documented as of this encounter
--- OUTSIDE RECORDS SUMMARY | 2022-06-23 17:39 | XMS_ITS | Encounter Summary ---
:1990 Author Organization [place] Address [address] [place] [address] Care Team Providers Name Role Phone Justin Loya MD Primary Care Provider Silas Santiago MD Unavailable Caden Leone MD Unavailable [phone] Reason for Visit Reason Comments Rule Out Labor R/o ptl Encounter Details Date Type Department Care Team Description 04/08/2022 Hospital Encounter [facility] Faith Pearson [facility] [address] [place] [address] [facility] [phone] [place], [place] [address] (Wo rk) Social History Tobacco Use Types [...] Sign Reading Time Taken Comments Blood Pressure 115/72 04/08/2022 5:32 PM CDT Pulse 101 04/08/2022 5:32 PM CDT Temperature 36.8 ??C (98.2 ??F) 04/08/2022 5:32 PM CDT Respiratory Rate 16 04/08/2022 5:32 PM CDT Oxygen Saturation - - Inhaled Oxygen Concentration - - Weight 70.8 kg (156 lb) 04/08/2022 5:32 PM CDT Height 170.2 cm (5' 7) 04/08/2022 5:32 PM CDT Body Mass Index 24.43 04/08/2022 5:32 PM CDT documented in this encounter Discharge Instructions Discharge InstructionsSonia Odonnell RN - 04/08/2022 7:22 PM CDT Discharge Instruction for Undelivered Patients You were seen for: Labor Assessment We Consulted: Dr Pearson You had (Test or Medicine): and Uterine monitoring Diet: Drink 8 to 12 glasses of liquids (milk, juice, water) every day. You may eat meals and snacks. Activity: Count kicks everyday (see handout) Call your doctor or nurse lead janitor if your baby is moving less than [...] minutes apart for one hour or more. *If less than 34 weeks: Contractions (tightening) more than 6 times in one hour. Increase or change in vaginal discharge (note the color and amount) Follow-up: As scheduled in the clinic tomorrow morning at 9am. documented in this encounter Medications at Time [...] encounter Miscellaneous Notes Plan of Care - Sonia Odonnell RN - 04/08/2022 7:25 PM CDT Discharge instructions reviewed with patient and spouse. Teach back performed. Patient and spouse discharged ambulatory to home, to follow up in clinic as scheduled tomorrow at 0900. Plan of Care - Sury Howard RN - 04/08/2022 7:15 PM CDT PT requested a fFN. Rn brought in supplies and patient asked RN if I knew what I was doing and if I felt confident doing it. RN assured patient that I had done many fFN's and I was confident. PT then refused fFN. PT THen stated she would wait until her appointment tomorrow. RN educated patient and movement Vs contractions. PT states she feels okay to go home. Plan of Care - Sury Howard RN - 04/08/2022 6:40 PM CDT RN showed patient her FHT. Showed patient that she has had 3 contractions in one hour. Showed patient that her baby is Cat 1 tracing. PT was given a dez button to dez contractions but refuses to use it. PT states I don't want to mess things up. PT has MD appointment in the morning. Discussed with patient that she can wait for SVE until clinic and could discuss the necessity of Ffn with MD in AM. PT is unsure what she wants to do. PT states she will use call light when she decides what she wants. Plan of Care - Sury Howard RN - 04/08/2022 6:08 PM CDT PT arrived from home with C/O contractions Q 4-5 an hour. PT has been seen multiple times with same complaint. PT stated tearfully that today was different. I feel so much pressure . PT denies bleeding or leaking of fluid. PT had negative Ffn one month ago. PT refuses to left RN check her cervix. I prefer a Dr to do it explaine to Pt that there was not a Dr in the hospital to check her. Prenatalrecord reviewed and health history obtained from patient. Dr Pearson notified of patients arrival andcomplaints and refusals. Orders received for Ffn, and terb if patient allows. PO hydrate. MD will bein at 2100 for a C/S and patient can wait until then if she wants SVE by MD. Discussed options with patient and spouse. PT states we will talk about it and let you know. Reviewed with patient S/S of PTL documented in this encounter Plan of Treatment Not on filedocumented as of this encounter Procedures Procedure Name Priority Date/Time Associated Diagnosis Comme nts NON-STRESS TEST - 04/08/2022 12:00 AM CDT HIM SCAN NON-STRESS TEST - 04/08/2022 12:00 AM CDT HIM SCAN documented in this encounter Results NON-STRESS TEST - HIM SCAN (04/08/2022 12:00 [...] documented in this encounter Visit Diagnoses Diagnosis Encounter for triage in patient documented in this encounter Admitting Diagnoses Diagnosis Encounter for triage in patient documented in this encounter Active and Recently Administered Medications Times are shown in CDT. Scheduled Medication Order 04/06/2022 04/07/2022 04/08/2022 terbutaline (BRETHINE) injection 0.25 mg 1830 (Canceled Entry - Provider: Orders Generic Provider - Comment: Automatically canceled at discontinue of medication order) 0.25 mg, Subcutaneous, ONCE, On Thu04/08/22 at 1830, For 1 dose documented in this encounter Additional Health Concerns Assessment Noted Time PHQ-9 Depression Total Score: 2 01/26/2019 11:18 AM CD T documented as of this encounter Care Teams Vacuum Cleaner Repair Person Relationship Specialty Start Date End Date Justin Loya MD PCP - General Family Practice 02/19/11 [facility] [address] [place] [address] Silas Santiago MD MD Pain Clinic 11/29/13 [facility] [address] [place], [place] [address] Caden Leone, Assigned Surgical Provider 07/20 01/08 MD [address] [place], [place] [id number] documented as of this encounter
--- OUTSIDE RECORDS SUMMARY | 2022-06-23 17:39 | XMS_ITS | Encounter Summary ---
:1990 Author Organization [place] Address [address] [place] [address] Care Team Providers Name Role Phone Justin Loya MD Primary Care Provider Silas Santiago MD Unavailable Caden Leone MD Unavailable [phone] Reason for Referral Diagnostic Imaging Ultrasound (Routine) - Pending Review Specialty Diagnoses / Procedures Referred By Contact Refer red To Contact Diagnoses related condition, antepartum Andrew Ramsay MD Procedures MF US Comprehensive Single [address] [address] Referral ID Status Reason Start Date Expiration Date Visits V isits Requested Authorized [id number] Pending 05/22/2022 05/22/2023 1 1 Review Encounter Details Date Type Department Care Team Description 05/22/2022 Transcribe [facility] Andrew Ramsay sandie related Maternal MMD condition, antepartum Medicine Center [facility] a [address] (Primary Dx) [address] [address] [place] [id number] Social History Tobacco Use Types Packs/Day Years [...] Not on filedocumented as of this encounter Results [facility] US Comprehensive Single (05/22/2022 11:50 AM [...] HUFF Study Date: 07/22/2021 11:10am Pat. NO: [id number] Referring ??MD: ANDREW RAMSAY Site: [facility] Assistance Specialist: Janusz Booker RDMS : 1990 Age: 31 INDICATION New referral for suspected placenta accr eta. METHOD Transabdominal ultrasound examination. V iew: Suboptimal view: limited by late gestational age Valles . Number of fetuses: 1 DATING ? Date ?Details ?Gest. age ?ANDRE LMP ?09/08/2021 ? 36 w + 4 d ? 06/15/2022 Prior assessment ? 4/ ? GA: 7 w + 3 d [...] Biometry: BPD ?93.1 ?mm ? 37w 6d ?Sheridan PEDERSON ?115.1 ?mm ?36w 1d ?Nicolaides HC ?332.1 ?mm ?37w 6d ?Hadlock AC ?321.6 ?mm ?36w 1d ?48% ?Hadlock Femur ?64.8 ? mm ?33w 3d ?Hadlock Humerus ?58.3 ?mm ? 33w 5d ?Deepa Weight Calculation: EFW ? 2,994 ?g ? 33% ?Hadlock EFW (lb,oz) ? 6 lb 1 ?oz EFW by ?Hadlock ([id number]) Head / Face / Neck Biometry: Metal Sander And Finisher ? 6.2 ? mm ANATOMY The following structures appear normal: Head / Neck ? Cranium. Head size. Head shape. Lateral ventricles. Midline falx. Cavum septi pellucidi. Parenchyma. Thalami. ? Neck. Face ? Lips. Profile. Nose. Maxilla. Mandible. Orbits. Heart / Thorax ?RVOT view. LVOT view. Situs. 8-eubjmk-tnoiwml view. Cardiac position. Cardiac size. Cardiac rhythm. [...] RECOMMENDATION [facility] Destiney was referred due to concern about possible loss of retroplacental hypoechoic space on yesterday's BPP with [facility] soaking pits supervisor. The finding was concerning for possible placenta [...] but not detected Procedure Note Mellisa Lu, DO - 05/22/2022 Comprehensive Pat. Name:LINA HUFFHStudy Date:09/2021 11:10am Pat. NO: [id number] :ANDREW ARZATE [facility]Shun Arevalo :1990Age:31 INDICATION New referral for suspected [...] 6 lb 1 oz EFW by Hadlock ([id number]) Head / Face / Neck Biometry: Metal Sander And Finisher 6.2 mm ANATOMY The following structures appear normal: Head / Neck Cranium. Head size. Head sha pe. Lateral ventricles. Midline falx. Cavum septi pellucidi. Parenchyma. Thalami. Neck. Face Lips. Profile. Nose. Maxilla. Katharina ble. Orbits. Heart / Thorax RVOT view. LVOT view. Sit us. 8-rxiuub-sntakwx view. Cardiac position. Cardiac size. Cardiac rhythm. [...] RECOMMENDATION We [facility] the [facility]. Destiney was referred due to concern about possible loss of retroplacental hypoechoic space on yesterday's BPP with [facility] soaking pits supervisor. The finding was concerning for possible placenta [...] placenta accreta spectrum. Andrew Ramsay MD IMG MF US ORDERABLES documented in this encounter Visit Diagnoses Diagnosis related condition, antepartum - Primary related condition, antepartum documented in this encounter Additional Health Concerns Assessment Noted Time PHQ-9 Depression Total Score: 2 01/26/2019 11:18 AM CD T documented as of this encounter Care Teams Opener Verifier Packer Customs Relationship Specialty Start Date End Date Justin Loya MD PCP - General Family Practice 02/19/11 [facility] [address] [place] [phone] Silas Santiago MD MD Pain Clinic 11/29/13 [facility] [address] [place], [place] [address] Caden Leone, Assigned Surgical Provider 07/20 01/08 MD [address] [place], [place] [address] documented as of this encounter
--- OUTSIDE RECORDS SUMMARY | 2022-06-23 17:39 | XMS_ITS | Encounter Summary ---
:1990 Author Organization [place] Address [facility] [place] [address] Care Team Providers Name Role Phone Justin Loya MD Primary Care Provider Silas Santiago MD Unavailable Caden Leone MD Unavailable [phone] Encounter Details Date Type Department Care Team Description 05/29/2022 Travel Social History Tobacco Use Types Packs/Day Years Used Date Smoking Tobacco: Never Smokeless Tobacco: Never Alcohol Use Standard Drinks/Week Comments No 0 (1 standard drink = 0.6 oz pure alcoho l) Sex Assigned at Date Recorded Not on file COVID-19 Exposure Response Date Recorded In the last 10 days, have you been in contact with No / Unsu re 05/29/2022 3:49 PM ONLINE RETAILER someone who was confirmed or suspected to have Coronavirus/COVID-19? documented as of this encounter Plan of Treatment Not on filedocumented as of this encounter Visit Diagnoses Not on filedocumented in this encounter Additional Health Concerns Assessment Noted Time PHQ-9 Depression Total Score: 2 01/26/2019 11:18 AM CD T documented as of this encounter Care Teams Correctional Medicine Physician Relationship Specialty Start Date End Date Justin Loya MD PCP - General Family Practice 02/19/11 [facility] [address] [place] [address] Silas Santiago MD MD Pain Clinic 11/29/[address] [facility] [address] [place], [place] [address] Caden Leone, Assigned Surgical Provider 07/20 01/08 [place] [address] documented as of this encounter
--- OUTSIDE RECORDS SUMMARY | 2022-06-23 17:39 | XMS_ITS | Encounter Summary ---
:1990 Author Organization [place] Address [facility] [place] [address] Care Team Providers Name Role Phone Justin Loya MD Primary Care Provider Silas Santiago MD Unavailable Caden Leone MD Unavailable [phone] Encounter Details Date Type Department Care Team Description 05/28/2022 Travel Social History Tobacco Use Types Packs/Day Years Used Date Smoking Tobacco: Never Smokeless Tobacco: Never Alcohol Use Standard Drinks/Week Comments No 0 (1 standard drink = 0.6 oz pure alcoho l) Sex Assigned at Date Recorded Not on file COVID-19 Exposure Response Date Recorded In the last 10 days, have you been in contact with No / Unsu re 05/28/2022 1:06 AM SMALL PACKAGE AND BUNDLE SORTER CLERK someone who was confirmed or suspected to have Coronavirus/COVID-19? documented as of this encounter Plan of Treatment Not on filedocumented as of this encounter Visit Diagnoses Not on filedocumented in this encounter Additional Health Concerns Assessment Noted Time PHQ-9 Depression Total Score: 2 01/26/2019 11:18 AM CD T documented as of this encounter Care Teams Advertising Inserter Relationship Specialty Start Date End Date Justin Loya MD PCP - General Family Practice 02/19/11 [facility] [address] [place] [address] Silas Santiago MD MD Pain Clinic 11/29/13 [facility] [address] [place], [place] [id number] Caden Leone, Assigned Surgical Provider 07/20 01/08 [place] [address] documented as of this encounter
--- OUTSIDE RECORDS SUMMARY | 2022-06-23 17:39 | XMS_ITS | Encounter Summary ---
:1990 Author Organization [place] Address [address] [facility] [place] [address] Care Team Providers Name Role Phone Justin Loya MD Primary Care Provider Silas Santiago MD Unavailable Caden Leone MD Unavailable [phone] Reason for Visit Reason Comments Decreased Movement Encounter Details Date Type Department Care Team Description 05/29/2022 Hospital Encounter [facility] [address] [facility] [address] [place] [address] [place], [place] [id number] (Wo rk) Social History Tobacco Use Types [...] No / Unsu re 05/29/2022 3:49 PM FLOOR SANDING MACHINE OPERATOR someone who was confirmed or suspected to have Coronavirus/COVID-19? documented as of this encounter Last Filed Vital Signs Vital Sign Reading Time Taken Comments Blood Pressure 116/75 05/29/2022 3:46 PM FLOOR SANDING MACHINE OPERATOR Pulse - - Temperature 36.6 ??C (97.9 ??F) 05/29/2022 3:46 PM FLOOR SANDING MACHINE OPERATOR Respiratory Rate - - Oxygen Saturation - - Inhaled Oxygen Concentration - - Weight - - Height - - Body Mass Index - - documented in this encounter Discharge Instructions Discharge InstructionsConsuelo Montemayor RN - 05/29/2022 3:55 PM CST Data: [facility] to the [facility] at 1500. Reason for maternal/ assessment per patient is Decreased Movement . Patient is a . record reviewed. Gestational Age 37w4d. VSS. Cervix: not examined. movement present. Patient denies cramping, backache, vaginal discharge, pelvic pressure, UTI symptoms, GI problems, bloody show, vaginal bleeding, edema, headache, visual disturbances, epigastric or URQ pain, abdominal pain, rupture of membranes. Support persons not present. Action: Verbal consent for EFM. Triage assessment completed. EFM applied for reassuring NST. Uterineassessment no ctx. assessment: Presumed adequate oxygenation documented (see flow record). Patient education pamphlets given on movement counts. Patient instructed to report change infetal movement, vaginal leaking of fluid or bleeding, abdominal pain, or any concerns related to thepregnancy to her nurse/physician. Response: Dr. Pearson informed of NST. Plan per provider is f/unit(s) as scheduled next week in office. Patient verbalized understanding of education and verbalized agreement with plan. Discharged ambulatory at 1415. R SANDING MACHINE OPERATOR documented in this encounter Medications at Time [...] MG tablet documented as of this encounter Miscellaneous Notes Provider Notification - Consuelo Montemayor RN - 05/29/2022 3:58 PM CST 05/29/22 1546 Provider Notification Provider Name/Title Dr PEARSON Method of Notification Phone Request Evaluate - Remote Notification Reason Patient Arrived;Status Update;Other (Comment) (DFM) R SANDING MACHINE OPERATOR Plan of Care - Consuelo Montemayor RN - 05/29/2022 3:52 PM CST 05/29/22-DFM-felt movement upon arrival-EFM appklied with reassuring FHT/NST-Dr Pearson updated-NON to discharge to home with f/u next week as scheduled in office-instructions verbally understood with acknowledgement by patient. R SANDING MACHINE OPERATOR documented in this encounter Plan of Treatment Not on filedocumented as of this encounter Procedures Procedure Name Priority Date/Time Associated Diagnosis Comme nts NON-STRESS TEST - 05/29/2022 12:00 AM FLOOR SANDING MACHINE OPERATOR HIM SCAN documented in this encounter Results NON-STRESS TEST - HIM SCAN (05/29/2022 12:00 AM FLOOR SANDING MACHINE OPERATOR) Specimen (Source) Anatomical Location Collection Method / Collectio n Time Received Time / Laterality Volume 05/29/2022 Narrative This result has an attachment that is no t available. Provider Outside PROCEDURES documented in this encounter Visit Diagnoses Not on filedocumented in this encounter Administered Medications Inactive Administered Medications - up to 3 most recent administrations Medication Order MAR Action Action Date Dose Rate Site metoclopramide (REGLAN) injection 10 mg 10 mg, Intravenous, Administer over 2 Mi nutes, EVERY 6 HOURS PRN, nausea, vomiting, Starting on Janna 05/29/22 at 1541, This is Step 1 of OB nausea and vomiting management. If nausea is not resolved in 30 minutes, go to Step 2 (Zofran). Avoid use if patient has full bowel obstruction or perforati on. Irritant., OB Preadmission metoclopramide (REGLAN) tablet 10 mg 10 mg, Oral, EVERY 6 HOURS PRN, nausea a nd vomiting, Starting on Janna 05/29/22 at 1541, This is Step 1 of OB nausea and vomiting managem ent. If nausea is not resolved in 30 minutes, go to Step 2 (Zo yodit) Avoid use if patient has full bowel obstruction or perforation., OB Preadmission ondansetron (ZOFRAN ODT) ODT tab 4 mg 4 mg, Oral, EVERY 6 HOURS PRN, nausea, v omiting, Starting on Janna 05/29/22 at 1541, This is Step 2 of OB nausea and vomiting management. Give If nausea not resolved in 30 minutes after giving metoclopramide ( REGLAN). If nausea is not resolved in 15 minutes, go to Step 3 (Compazine). With dry hands, pee l back foil backing and gently remove tablet. Do not push oral d isintegrating tablet through foil backing. Administer immediately on tongue and oral disintegrati ng tablet dissolves in seconds, then swallow with saliva. Liquid not required ., OB Preadmission ondansetron (ZOFRAN) injection 4 mg 4 mg, Intravenous, EVERY 6 HOURS PRN, nausea, vomiting , Administer over 2-5 Minutes, Starting on Janna 05/29/22 at 154 1, This is Step 2 of OB nausea and vomiting management. Give if nausea not resolved 30 minutes aft er giving metoclopramide (REGLAN). If nausea is not resolved in 15 minutes, go to Step 3 (Compazine). Irritant., OB Preadmission prochlorperazine (COMPAZINE) injection 1 0 mg 10 mg, Intravenous, EVERY 6 HOURS PRN, n ausea, vomiting, Administer over 2 Minutes, Starting on Janna 05/29/22 at 1541, This is Step 3 of OB nausea and vomiting management. Give if nausea not resolved 15 minutes aft er giving ondansetron (ZOFRAN). If nausea is not resolved in 30 minutes, not gracy provider., OB Preadmission prochlorperazine (COMPAZINE) suppository 25 mg 25 mg, Rectal, EVERY 12 HOURS PRN, nause a, vomiting, Starting on Janna 05/29/22 at 1541, This is Step 3 of OB nausea and vomiting managem ent. Give if nausea not resolved 15 minutes after giving ondanse mao (ZOFRAN). If nausea is not resolved in 30 minutes, notify provider., OB Preadmission prochlorperazine (COMPAZINE) tablet 10 m g 10 mg, Oral, EVERY 6 HOURS PRN, nausea, vomiting, Starting on Janna 05/29/22 at 1541, This is Step 3 of OB nausea and vomiting management. Give if nausea not resolved 15 minutes after giving ondansetron (ZOFRAN ). If nausea is not resolved in 30 minutes, notify provider., OB Preadmission documented in this encounter Active and Recently Administered Medications Times are shown in FLOOR SANDING MACHINE OPERATOR. PRN Medication Order 05/27/2022 05/28/2022 05/29/2022 metoclopramide (REGLAN) injection 10 mg(Linked Group 1) 10 mg, Intravenous, Administer over 2 Mi nutes, EVERY 6 HOURS PRN, nausea, vomiting, Starting on Janna 05/29/22 at 1541, This is Step 1 of OB nausea and vomiting management. If nausea is not resolved in 30 minutes, go to Step 2 (Zofran). Avoid u se if patient has full bowel obstruction or perforation. Irritant., OB Preadmission metoclopramide (REGLAN) tablet 10 mg(Linked Group 1) 10 mg, Oral, EVERY 6 HOURS PRN, nausea a nd vomiting, Starting on Janna 05/29/22 at 1541, This is Step 1 of OB nausea and vomiting management. If nausea is not resolved in 30 minutes, go to Step 2 (Zofran) Avoid use if patient has full bowel obs truction or perforation., OB Preadmission ondansetron (ZOFRAN ODT) ODT tab 4 mg(Linked Group 2) 4 mg, Oral, EVERY 6 HOURS PRN, nausea, v omiting, Starting on Janna 05/29/22 at 1541, This is Step 2 of OB nausea [...] seconds, then swallow with saliva. Liquid not required., OB Preadmission ondansetron (ZOFRAN) injection 4 mg(Linked Group 2) 4 mg, Intravenous, EVERY 6 HOURS PRN, na usea, vomiting, Administer over 2-5 Minutes, Starting on Janna 05/29/22 at 1541, This is Step 2 of OB nausea and vomiting management. Give if nausea not resolved 30 minutes after giving metoclopramide (RE GLAN). If nausea is not resolved in 15 minutes, go to Step 3 (Compazine). Irritant., OB Preadmission prochlorperazine (COMPAZINE) injection 10 mg(Linked Group 3) 10 mg, Intravenous, EVERY 6 HOURS PRN, n ausea, vomiting, Administer over 2 Minutes, Starting on Janna 05/29/22 at 1541, This is Step 3 of OB nausea and vomiting management. Give if nausea not resolved 15 minutes after giving ondansetron (ZOFRAN ). If nausea is not resolved in 30 minutes, notify provider., OB Preadmission prochlorperazine (COMPAZINE) suppository 25 mg(Linked Group 3) 25 mg, Rectal, EVERY 12 HOURS PRN, nause a, vomiting, Starting on Janna 05/29/22 at 1541, This is Step 3 of OB nausea and vomiting management. Give if nausea not resolved 15 minutes after giving ondansetro n (ZOFRAN). If nausea is not resolved in 30 minutes, notify provider., OB Preadmission prochlorperazine (COMPAZINE) tablet 10 mg(Linked Group 3) 10 mg, Oral, EVERY 6 HOURS PRN, nausea, vomiting, Starting on Janna 05/29/22 at 1541, This is Step 3 of OB nausea and vomiting management. Give if nausea not resolved 15 minutes after giving ondansetron ( ZOFRAN). If nausea is not resolved in 30 minutes, notify provider., OB Preadmission Linked Groups Order Group 1: metoclopramide (REGLAN) injection 10 mgJump to med 10 mg, Intravenous, Administer over 2 Mi nutes, EVERY 6 HOURS PRN, nausea, vomiting, Starting on Janna 05/29/22 at 1541
This is Step 1 of OB nausea and vomiting management. If n ausea is not resolved in 30 minutes, go to Step 2 (Zofran). Avoid use if patient has full bowel obstruction or perforation. Irritant.
OB Preadmission Or metoclopramide (REGLAN) tablet 10 mgJump to med 10 mg, Oral, EVERY 6 HOURS PRN, nausea a nd vomiting, Starting on Janna 05/29/22 at 1541
This is Step 1 of OB nausea and vomiting management. If nausea is not resolved in 30 min utes, go to Step 2 (Zofran) Avoid u se if patient has full bowel obstruction or perforation.
OB Preadmission Group 2: ondansetron (ZOFRAN ODT) ODT tab 4 mgJump to med 4 mg, Oral, EVERY 6 HOURS PRN, nausea, v omiting, Starting on Janna 05/29/22 at 1541
This is Step 2 of OB nausea [...] then swallow with saliva. Liquid not required.
OB Preadmission Or ondansetron (ZOFRAN) injection 4 mgJump to med 4 mg, Intravenous, EVERY 6 HOURS PRN, na usea, vomiting, Administer over 2-5 Minutes, Starting on Janna 05/29/22 at 1541
This is Step 2 of OB nausea and vomiting management. Giv e if nausea not resolved 30 minutes afte r giving metoclopramide (REGLAN). If nausea is not resolved in 15 minutes, go to Step 3 (Compazine). Irritant.
OB Preadmission Group 3: prochlorperazine (COMPAZINE) injection 10 mgJump to med 10 mg, Intravenous, EVERY 6 HOURS PRN, n ausea, vomiting, Administer over 2 Minutes, Starting on Janna 05/29/22 at 1541
This is Step 3 of OB nausea and vomiting management. Give if nausea not reso lved 15 minutes after giving ondansetron (ZOFRAN). If nausea is not resolved in 30 minutes, notify provider.
OB Preadmission Or prochlorperazine (COMPAZINE) tablet 10 mgJump to med 10 mg, Oral, EVERY 6 HOURS PRN, nausea, vomiting, Starting on Janna 05/29/22 at 1541
This is Step 3 of OB nausea and vomiting management. Give if nausea not resolved 15 minutes after giving ondan setron (ZOFRAN). If nausea is not resolv ed in 30 minutes, notify provider.
OB Preadmission Or prochlorperazine (COMPAZINE) suppository 25 mgJump to med 25 mg, Rectal, EVERY 12 HOURS PRN, nause a, vomiting, Starting on Janna 05/29/22 at 1541
This is Step 3 of OB nausea and vomiting management. Give if nausea not resolved 15 minutes after giving on dansetron (ZOFRAN). If nausea is not res olved in 30 minutes, notify provider.
OB Preadmission documented in this encounter Additional Health Concerns Assessment Noted Time PHQ-9 Depression Total Score: 2 01/26/2019 11:18 AM CD T documented as of this encounter Care Teams Poultry Husbandman Relationship Specialty Start Date End Date Justin Loya MD PCP - General Family Practice 02/19/11 [facility] [address] [place] [address] Silas Santiago MD MD Pain Clinic 11/29/13 [facility] [address] [place], [place] [address] Caden Leone, Assigned Surgical Provider 07/20 01/08 [place] [address] documented as of this encounter
--- OUTSIDE RECORDS SUMMARY | 2022-06-23 17:39 | XMS_ITS | Encounter Summary ---
:1990 Author Organization [place] Address [address] [facility] [place] [address] Care Team Providers Name Role Phone Justin Loya MD Primary Care Provider Silas Santiago MD Unavailable Caden Leone MD Unavailable [phone] Reason for Visit Reason Comments Ultrasound L2: rule out placenta accret a Encounter Details Date Type Department Care Team Description 05/22/2022 Office Visit [facility] Kimberly Ramsay MD [address] [facility] [address] [place] [address] Placental abnormality Maternal Mellisa Lu, DO [address] [place], [place] [address] in third trimester Medicine Center Sunil gabriel (Primary Dx) [address] [facility] [address] [place] [address] Social History Tobacco Use Types [...] have Coronavirus/COVID-19? documented as of this encounter Progress Notes Mellisa Lu DO - 05/22/2022 11:30 AM CDT Please see Imaging tab under Chart Review for details of today's US. Mellisa Lu DO documented in this encounter Plan of Treatment Not on filedocumented as of this encounter Visit Diagnoses Diagnosis Placental abnormality in third trimester - Primary documented in this encounter Additional Health Concerns Assessment Noted Time PHQ-9 Depression Total Score: 2 01/26/2019 11:18 AM CD T documented as of this encounter Care Teams Blanket Maker Relationship Specialty Start Date End Date Justin Loya MD PCP - General Family Practice 02/19/[address] [facility] [address] [place] [phone] Silas Santiago MD MD Pain Clinic 11/29/13 [facility] [address] [place], [place] [id number] Caden Leone, Assigned Surgical Provider 07/20 01/08 [place] [address] documented as of this encounter
--- OUTSIDE RECORDS SUMMARY | 2022-06-23 17:39 | XMS_ITS | Encounter Summary ---
:1990 Author Organization [place] Address [address] [facility] [place] [address] Care Team Providers Name Role Phone Justin Loya MD Primary Care Provider Silas Santiago MD Unavailable Caden Leone MD Unavailable [phone] Reason for Visit Reason Comments Leg Pain Encounter Details Date Type Department Care Team Description 04/26/2022 Emergency [facility] Dania Villarreal MD Pain of right [place] [facility] extremity [address] [place], [place] [address] [place] [address] [place], [place] [phone] (Wo rk) Social History Tobacco Use Types [...] Sign Reading Time Taken Comments Blood Pressure 123/75 04/26/2022 9:16 AM CDT Pulse 107 04/26/2022 9:16 AM CDT Temperature 36.1 ??C (97 ??F) 04/26/2022 7:16 AM CDT Respiratory Rate 20 04/26/2022 7:16 AM CDT Oxygen Saturation 98% 04/26/2022 9:22 AM CDT Inhaled Oxygen Concentration - - Weight - - Height - - Body Mass Index - - documented in this encounter Discharge Instructions Discharge InstructionsDania Villarreal MD - 04/26/2022 9:25 AM CDT Tylenol as needed. Hydrate Return if symptoms worsen documented in this encounter Medications at Time of Discharge Medication Sig Dispensed Refills Start Date End Date Vit-Fe Take 1 tablet by 0 Fumarate-FA ( mouth daily MULTIVITAMIN PLUS IRON) 27-1 MG TABSIndications: ferrous sulfate (FEROSUL) Take 325 mg by 0 202006/13/2022 325 (65 Fe) MG tablet mouth daily documented as of this encounter ED Notes Teressa Varela RN - 04/26/2022 7:17 AM CDT Pt arrives with c/o right upper thigh pain. Pt endorses hx of blood clots and wants to ensure she doesn't have a clot. Pt is 33 weeks , denies and abdominal pain, back pain, or vaginal bleeding. Triage Assessment Row Name 04/26/22 0717 Triage Assessment (Adult) Airway WDL WDL Respiratory WDL Respiratory WDL WDL Skin Circulation/Temperature WDL Skin Circulation/Temperature WDL WDL Cardiac WDL Cardiac WDL WDL Peripheral/Neurovascular WDL Peripheral Neurovascular WDL WDL Cognitive/Neuro/Behavioral WDL Cognitive/Neuro/Behavioral WDL WDL Brush Coma Scale Best Eye Response 4-->(E4) spontaneous Best Motor Response 6-->(M6) obeys commands Best Verbal Response 5-->(V5) oriented Brush Coma Scale Score 15 Dania Villarreal MD - 04/26/2022 7:00 AM CDT History Chief Complaint: Leg Pain The history is provided by the patient. Destiney Cassidy is a 33 week 31 year old female with history of POTS and a DVT who presents with leg pain. The patient reports waking up this morning with right upper leg pain and mild swelling. She states that she has a history of a jugular clot, and wanted to come in to rule out another clot. She states the pain and swelling are now resolved. She denies icing the area or taking anything at home for pain. She denies any new activity stating that she has been sedentary for the most part. She notes that her baby is sitting low, which has been causing her to have some soreness in her hips. She denies having any issues with this other than early contractions which she follows closely with her OBGYN. She states that she has been drinking a lot of fluids. Review of Systems Cardiovascular: Positive for leg swelling (Resolved ). Musculoskeletal: Right leg pain (resolved) All other systems reviewed and are negative. Allergies: Cephalosporins Penicillins Ciprofloxacin Pollen Extract Metoclopramide Cefprozil Propylthiouracil Medications: multivitamin Past Medical History: Sensory disorder Vaginismus Graves disease DVT Postural orthostatic tachycardia syndrome (POTS) Hypermobility syndrome Hyperthyroidism complicating Anxiety Trigeminal neuralgia Asthma Neuropathy Exophoria of right eye Raynaud's disease Varicella Migraines Past Surgical History: Decompression lumbar minimally invasive one level Myringotomy, insert tube bilateral, combined Tonsillectomy [place] teeth extraction Family History: Father: anesthesia problem, arthritis, DVT, Raynaud's, hyperlipidemia, hypertension, kidney disease,sleep apnea Social History: The patient presents to the ED unaccompanied PCP: Justin Loya OBGYN: Dr. Ramsay ([facility]) Physical Exam Patient Vitals for the past 24 hrs: BP Temp Temp src Pulse Resp SpO2 04/26/22 0916 123/75 -- -- 107 -- -- 04/26/22 0716 109/67 97 ??F (36.1 ??C) Temporal 85 20 100 % Physical Exam Constitutional: Appearance: She is well-developed. HENT: Mouth/Throat: Pharynx: No oropharyngeal exudate. Cardiovascular: Rate and Rhythm: Normal rate and regular rhythm. Heart sounds: Normal heart sounds. No murmur heard. No friction rub. No gallop. Pulmonary: Effort: Pulmonary effort is normal. No respiratory distress. Breath sounds: Normal breath sounds. No wheezing or rales. Abdominal: General: Bowel sounds are normal. There is no distension. Palpations: Abdomen is soft. There is no mass. Tenderness: There is no abdominal tenderness. Comments: Gravid uterus, nontender Musculoskeletal: General: No swelling or tenderness. Normal range of motion. Right lower leg: No edema. Left lower leg: No edema. Skin: General: Skin is warm and dry. Capillary Refill: Capillary refill takes less than 2 seconds. Findings: No rash. Neurological: Mental Status: She is alert. Emergency Department Course Imaging: US Lower Extremity Venous Duplex Right Final Result IMPRESSION: 1. No deep venous thrombosis in the right lower extremity. Report per radiology Emergency Department Course: Reviewed: I reviewed nursing notes, vitals, past medical history and Care Everywhere Assessments: 0919 I obtained history and examined the patient as noted above. Disposition: The patient was discharged to home. Impression & Plan Medical Decision Making: Patient presents for evaluation of right inner thigh pain. She was concerned about history of blood clots given her history of jugular vein clot. Ultrasound was negative. She is reassured. She said thepain went away when she was waiting in the the ER. There is no signs of swelling or redness to suggest cellulitis. Otherwise she feels her is going well. She has no other complaints and does not feel she wants any other evaluation other than ultrasound. She is asked to follow-up with her MOP MAKER as needed. Return precautions provided. Diagnosis: ICD-10-CM 1. Pain of right lower extremity M79.604 Scribe Disclosure: Kiki Whipple, am serving as a scribe at 9:18 AM on 04/26/2022 to document services personally performed by Dania Villarreal MD based on my observations and the provider's statements to me. Dania Villarreal MD 04/26/22 0957 documented in this encounter Plan of Treatment Not on filedocumented as of this encounter Procedures Procedure Name Priority Date/Time Associated Diagnosis Comme nts US LOWER EXTREMITY STAT 04/26/2022 8:43 AM Res ults for this VENOUS DUPLEX RIGHT CDT procedur e are in the results section. documented in this encounter Results US Lower Extremity Venous Duplex Right (04/26/2022 8:43 AM CDT) Anatomical Region Laterality Modality Lower Extremity Ultrasound Specimen (Source) Anatomical Collection Method Collection Time Re ceived Time Location / / Volume Laterality 04/26/2022 8:43 AM CDT Impressions 04/26/2022 8:50 AM CDT IMPRESSION: 1. ??No deep venous thrombosis in the ri ght lower extremity. Narrative 04/26/2022 8:50 AM CDT EXAM: US LOWER EXTREMITY VENOUS DUPLEX RIGHT LOCATION: [facility] DATE/TIME: 04/26/2022 8:43 AM INDICATION: leg pain COMPARISON: None. TECHNIQUE: Venous Duplex ultrasound of [...] ficial thrombophlebitis. No popliteal cyst. Procedure Note Antelmo Grover MD - 04/26/2022F ormatting of this note might be different from the original. EXAM: US LOWER EXTREMITY VENOUS DUPLEX R IGHT LOCATION: [facility] DATE/TIME: 04/26/2022 8:43 AM INDICATION: leg pain COMPARISON: None. TECHNIQUE: Venous Duplex ultrasound of [...] 1. No deep venous thrombosis in the [facility] t lower extremity. Elisa Lema MD IMG US ORDERABLES documented in this encounter Visit Diagnoses Diagnosis Pain of right lower extremity documented in this encounter Additional Health Concerns Assessment Noted Time PHQ-9 Depression Total Score: 2 01/26/2019 11:18 AM CD T documented as of this encounter Care Teams Fund Raiser Relationship Specialty Start Date End Date Justin Loya MD PCP - General Family Practice 02/19/11 [facility] [address] [place] [address] Silas Santiago MD MD Pain Clinic 11/29/13 [facility] [address] [place], [place] [address] Caden Leone, Assigned Surgical Provider 07/20 01/08 MD [address] [place], [place] [id number] documented as of this encounter
--- OUTSIDE RECORDS SUMMARY | 2022-06-23 17:39 | XMS_ITS | Encounter Summary ---
:1990 Author Organization [place] Address [address] [facility] [address] Care Team Providers Name Role Phone Justin Loya MD Primary Care Provider Silas Santiago MD Unavailable Caden Leone MD Unavailable [phone] Reason for Visit Reason Comments Decreased Movement Encounter Details Date Type Department Care Team Description 04/18/2022 Hospital Encounter [facility] Le[facility] [address] [address] [place] [address] [facility] [phone] [place] [address] Social History Tobacco Use Types Packs/Day Years [...] Sign Reading Time Taken Comments Blood Pressure - - Pulse - - Temperature 36.6 ??C (97.8 ??F) 04/18/2022 1:19 PM CDT Respiratory Rate 16 04/18/2022 1:19 PM CDT Oxygen Saturation - - Inhaled Oxygen Concentration - - Weight 71.7 kg (158 lb) 04/18/2022 1:19 PM CDT Height 167.6 cm (5' 6) 04/18/2022 1:19 PM CDT Body Mass Index 25.5 04/18/2022 1:19 PM CDT documented in this encounter Discharge Instructions Discharge InstructionsCoNasreen allison RN - 04/18/2022 1:45 PM CDT Discharge Instruction for Undelivered Patients You were seen for: Assessment We Consulted: Dr Gardner You had (Test or Medicine): and uterine monitoring Diet: Drink 8 to 12 glasses of liquids (milk, juice, water) every day. You may eat meals and snacks. Activity: Call your doctor or nurse restaurant manager if your baby is moving less than [...] this encounter Miscellaneous Notes Provider Notification - Nasreen Sultana RN - 04/18/2022 1:48 PM CDT 04/18/22 1341 Provider Notification Provider Name/Title Dr Gardner Method of Notification Phone Request Evaluate - Remote Notification Reason Patient Arrived TC to Dr Gardner to updated her of pt's arrival with c/o of DFM for the past 2 days, stating baby usually moves a lot and the past 2 days she has only felt baby move while lying on left side, pt is a , 31.5, having uterine irritibiliyt which is not new, fhts on the monitor with a baseline of 140swith 15x15 accels and no decels. MD gave TORB to dicharge pt to home. Plan of Care - Nasreen Sultana RN - 04/18/2022 1:48 PM CDT Data: Patient assessed in the Birthplace for decreased movement. Cervical exam not examined. Membranes intact. Contractions/uterine assessment uterus is irritible. Action: Presumed adequate oxygenation documented (see flow record). Discharge instructions reviewed. Patient instructed to report change in movement, vaginal leaking of fluid or bleeding, abdominal pain, or any concerns related to the to her nurse/physician. Response: Orders to discharge home per . Patient verbalized understanding of education and verbalized agreement with plan. Discharged to home at 1348. Plan of Care - Nasreen Sultana RN - 04/18/2022 1:24 PM CDT Data: Patient presented to Birthplace: 04/18/2022 1:06 PM. Reason for maternal/ assessment is decreased movement. Patient reports that baby is normally really active and she feels a lot of movement but that past two days, she states that the baby has been moving less, she reports that she laid on her left side and felt movement but otherwise not feeling the baby move around likenormal. Patient is a . record reviewed. has been uncomplicated.. Gestational Age 31w5d. VSS. movement decreased since 04/16/22. Patient denies vaginal bleeding,abdominal pain, pelvic pressure, nausea, vomiting, headache, visual disturbances, epigastric or URQ pain, significant edema. Support person is not present. Action: Verbal consent for EFM. Triage assessment completed. Bill of rights reviewed. Response: Patient verbalized agreement with plan. Will contact Dr Marsha Gardner with update and for further orders. documented in this encounter Plan of Treatment Not on filedocumented as of this encounter Visit Diagnoses Not on filedocumented in this encounter Administered Medications Inactive Administered Medications - up to 3 most recent administrations Medication Order MAR Action Action Date Dose Rate Site ondansetron (ZOFRAN ODT) ODT tab 4 mg 4 mg, Oral, EVERY 6 HOURS PRN, nausea, v omiting, Starting on Thu04/18/22 at 1307, This is Step 2 of OB nausea [...] , Administer over 2-5 Minutes, Starting on Thu04/18/22 at 1307 , This is Step 2 of OB nausea and vomiting management. Give if nausea not resolved 30 minutes aft er giving metoclopramide (REGLAN). If nausea is not resolved in 15 minutes, go to Step 3 (Compazine). Irritant., OB Preadmission prochlorperazine (COMPAZINE) injection 1 0 mg 10 mg, Intravenous, EVERY 6 HOURS PRN, n ausea, vomiting, Administer over 2 Minutes, Starting on Thu04/18/22 at 1307, This is Step 3 of OB nausea and vomiting management. Give if nausea not resolved 15 minutes aft er giving ondansetron (ZOFRAN). If nausea is not resolved in 30 minutes, not gracy provider., OB Preadmission prochlorperazine (COMPAZINE) suppository 25 mg 25 mg, Rectal, EVERY 12 HOURS PRN, nausea, vomiting, S tarting on Thu04/18/22 at 1307, This is Step 3 of OB nausea and vomiting managem ent. Give if nausea not resolved 15 minutes after giving ondanse mao (ZOFRAN). If nausea is not resolved in 30 minutes, notify provider., OB Preadmission prochlorperazine (COMPAZINE) tablet 10 m g 10 mg, Oral, EVERY 6 HOURS PRN, nausea, vomiting, Starting on Thu04/18/22 at 1307, This is Step 3 of OB nausea and vomiting management. Give if nausea not resolved 15 minutes after giving ondansetron (ZOFRAN ). If nausea is not resolved in 30 minutes, notify provider., OB Preadmission documented in this encounter Active and Recently Administered Medications Times are shown in CDT. PRN Medication Order 04/16/2022 04/17/2022 04/18/2022 ondansetron (ZOFRAN ODT) ODT tab 4 mg(Linked Group 1) 4 mg, Oral, EVERY 6 HOURS PRN, nausea, v omiting, Starting on Thu04/18/22 at 1307, This is Step 2 of OB nausea and vomiting management. Give If nausea not resolved in 30 minutes after giving metocloprami de (REGLAN). If nausea is not resolved i n 15 minutes, go to Step 3 (Compazine). With dry hands, peel back foil backing and gently remove tablet. Do not push oral disintegrating tablet through foil backi ng. Administer immediately on tongue and oral disintegrating tablet dissolves in seconds, then swallow with saliva. Liquid not required., OB Preadmission ondansetron (ZOFRAN) injection 4 mg(Linked Group 1) 4 mg, Intravenous, EVERY 6 HOURS PRN, na usea, vomiting, Administer over 2-5 Minutes, Starting on Thu04/18/22 at 1307, This is Step 2 of OB nausea and vomiting management. Give if nausea not resolved 30 minutes after giving metoclopramide (REG ROSANGELA). If nausea is not resolved in 15 minutes, go to Step 3 (Compazine). Irritant., OB Preadmission prochlorperazine (COMPAZINE) injection 10 mg(Linked Group 2) 10 mg, Intravenous, EVERY 6 HOURS PRN, n ausea, vomiting, Administer over 2 Minutes, Starting on Thu04/18/22 at 1307, This is Step 3 of OB nausea and vomiting management. Give if nausea not resolved 15 m inutes after giving ondansetron (ZOFRAN) . If nausea is not resolved in 30 minutes, notify provider., OB Preadmission prochlorperazine (COMPAZINE) suppository 25 mg(Linked Group 2) 25 mg, Rectal, EVERY 12 HOURS PRN, nause a, vomiting, Starting on Thu04/18/22 at 1307, This is Step 3 of OB nausea and vomiting management. Give if nausea not resolved 15 minutes after giving ondansetron (ZOFRAN). If nausea is not resolved in 30 minutes, notify provider., OB Preadmission prochlorperazine (COMPAZINE) tablet 10 mg(Linked Group 2) 10 mg, Oral, EVERY 6 HOURS PRN, nausea, vomiting, Starting on Thu04/18/22 at 1307, This is Step 3 of OB nausea and vomiting management. Give if nausea not resolved 15 minutes after giving ondansetron (Z OFRAN). If nausea is not resolved in 30 minutes, notify provider., OB Preadmission Linked Groups Order Group 1: ondansetron (ZOFRAN ODT) ODT tab 4 mgJump to med 4 mg, Oral, EVERY 6 HOURS PRN, nausea, v omiting, Starting on Thu04/18/22 at 1307
This is Step 2 of OB nausea and vomiting management. Give If nausea not resolved in 30 minute s after giving metoclopramide (REGLAN).& nbsp; If nausea is not resolved in 15 minutes, go to Step 3 (Compazine). With dry hands, peel back foil backing and gently remove tablet. Do not push oral disintegrating tablet thr ough foil backing. Administer immediately on tongue and oral disintegrating tablet dissolves in seconds, then swallow with saliva. Liquid not required.
OB Preadmission Or ondansetron (ZOFRAN) injection 4 mgJump to med 4 mg, Intravenous, EVERY 6 HOURS PRN, na usea, vomiting, Administer over 2-5 Minutes, Starting on Thu04/18/22 at 1307
This is Step 2 of OB nausea and vomiting management. Give if nausea not resolved 30 minutes after giving metoclopramide (REGLAN). If nausea is not resolved in 15 minutes, go to Step 3 (Compazine). Irritant.
OB Preadmission Group 2: prochlorperazine (COMPAZINE) injection 10 mgJump to med 10 mg, Intravenous, EVERY 6 HOURS PRN, n ausea, vomiting, Administer over 2 Minutes, Starting on Thu04/18/22 at 1307
This is Step 3 of OB nausea and vomiting management. Give if nausea not resol ching 15 minutes after giving ondansetron (ZOFRAN). If nausea is not resolved in 30 minutes, notify provider.
OB Preadmission Or prochlorperazine (COMPAZINE) tablet 10 mgJump to med 10 mg, Oral, EVERY 6 HOURS PRN, nausea, vomiting, Starting on Thu04/18/22 at 1307
This is Step 3 of OB nausea and vomiting management. Give if nausea not resolved 15 minutes after giving ondans etron (ZOFRAN). If nausea is not resolve d in 30 minutes, notify provider.
OB Preadmission Or prochlorperazine (COMPAZINE) suppository 25 mgJump to med 25 mg, Rectal, EVERY 12 HOURS PRN, nause a, vomiting, Starting on Thu04/18/22 at 1307
This is Step 3 of OB nausea and vomiting management. Give if nausea not resolved 15 minutes after giving ond ansetron (ZOFRAN). If nausea is not reso lved in 30 minutes, notify provider.
OB Preadmission documented in this encounter Additional Health Concerns Assessment Noted Time PHQ-9 Depression Total Score: 2 01/26/2019 11:18 AM CD T documented as of this encounter Care Teams Solution Design And Analysis Manager Relationship Specialty Start Date End Date Justin Loya MD PCP - General Family Practice 02/19/11 [facility] [address] [place] [phone] Silas Santiago MD MD Pain Clinic 11/29/13 [facility] [address] [place] [address] Caden Leone, Assigned Surgical Provider 07/20 01/08 [place] [address] documented as of this encounter
--- OUTSIDE RECORDS SUMMARY | 2022-06-23 17:39 | XMS_ITS | Encounter Summary ---
:1990 Author Organization [place] Address [address] [facility] [place] [address] Care Team Providers Name Role Phone Justin Loya MD Primary Care Provider Silas Santiago MD Unavailable Caden Leone MD Unavailable [phone] Reason for Visit Reason Comments Laboring Encounter Details Date Type Department Care Team Description 05/24/2022 Hospital Encounter [facility] Macey Ramsay MD [address] [place] [address] [facility] Faith Pearson MD [address] [place] [address] [address] [place] [address] Social History Tobacco Use Types Packs/Day [...] Sign Reading Time Taken Comments Blood Pressure 118/74 05/24/2022 2:00 PM CDT Pulse - - Temperature 37 ??C (98.6 ??F) 05/24/2022 2:00 PM CDT Respiratory Rate 16 05/24/2022 2:00 PM CDT Oxygen Saturation - - Inhaled Oxygen Concentration - - Weight 75.8 kg (167 lb) 05/24/2022 2:22 PM CDT Height 170.2 cm (5' 7) 05/24/2022 2:22 PM CDT Body Mass Index 26.16 05/24/2022 2:22 PM CDT documented in this encounter Discharge Instructions Discharge InstructionsMinnie Buck RN - 05/24/2022 3:12 PM CDT Discharge Instruction for Undelivered Patients You were seen for: Labor Assessment and Membrane Assessment We Consulted: Dr. Pearson You had (Test or Medicine): urine analysis, amniotic fluid assessed, and uterine monitoring. Diet: Drink 8 to 12 glasses of liquids (milk, juice, water) every day. You may eat meals and snacks. Activity: Count kicks everyday (see handout) Call your doctor or nurse pulp cooker if your baby is moving less than [...] vaginal discharge (note the color and amount) Other: No amniotic fluid is noted on lab results, urine is sent for culture for suspicion of a urinary tract infection, NST is reactive indicating well being. Follow-up: As scheduled in the clinic documented [...] encounter Miscellaneous Notes Plan of Care - Minnie Buck RN - 05/24/2022 3:23 PM CDT Patient is discharged to home. A UC is added to the existing urine specimen. Plan of Care - Minnie Buck RN - 05/24/2022 2:11 PM CDT Patient arrives to the MAC to rule out SROM. Patient with small amounts of clear fluid on her underwear since yesterday and she is having intermittent UC's since last night. They are approximately 12 minutes apart and she is rating the pain at a 5 to 8. Patient denies any bleeding. Patient has a knownmarginal cord insertion and this would be a repeat C section under general due back surgery. Patientis unable to tolerate the cervical exam and it was not completed due to the anxiety. A urine is obtained and sent and a ROM plus is obtained. No vaginal fluid is noted on external exam. documented in this encounter Plan of Treatment Not on filedocumented as of this encounter Procedures Procedure Name Priority Date/Time Associated Comments Diagnosis ROUTINE UA WITH Routine 05/24/2022 2:09 PM Result s for this MICROSCOPIC CDT procedure are i n the results section. URINE CULTURE STAT Add-on 05/24/2022 2:09 PM Results for this CDT procedure are i n the results section. RUPTURE OF STAT 05/24/2022 1:59 PM Resul ts for this MEMBRANES BY ROM CDT procedure a re in PLUS the results section. NON-STRESS 05/24/2022 12:00 TEST - HIM SCAN AM CDT documented in this encounter Results Urine Culture (05/24/2022 2:09 PM CDT) [facility] Method Time Signature Culture <10,000 CFU/mL CARLOS 05/26/2022 [facility] IDD Mixture of 6:17 AM [facility] urogenital estephania Specimen Anatomical Collection Method Collection Time Receive d Time (Source) Location / / Volume Laterality Urine MID-STREAM URINE Non-blood 05/24/2022 2:09 PM 05/24 2:14 SPECIMEN / Unknown Collection / CDT PM CDT Unknown Faith Pearson MD LAB - MICRO GENERAL ORDERABL ES Performing Organization Address City/State/ZIP Code Phon e Number [facility] IDD LABORATORY [facility] [place] [address] Diag. Lab [address] [facility], [address] (ABNORMAL) UA with Microscopic (05/24/2022 2:09 PM CDT) [facility] Method Time Signature Color Urine Light Colorless, 05/24/2022 [facility] LABORATORY Yellow Straw, 2:55 PM CDT Light Yellow, Yellow Appearance Urine Slightly Clear 05/24/2022 LABORATOR Y Cloudy (A) 2:55 PM CDT Glucose Urine Negative Negative 05/24/2022 LABORATORY mg/dL 2:55 PM CDT Bilirubin Urine Negative Negative 05/24/2022 LABORATORY 2:55 PM CDT Ketones Urine Negative Negative 05/24/2022 LABORATORY mg/dL 2:55 PM CDT Specific Riley 1.020 1.003 - 05/24/2022 LABORATOR Y Urine [...] Address City/State/ZIP Code Phon [place] [address] [facility] [address] 1[address] floor, [address] Rupture of Membranes by ROM Plus (05/24/2022 1:59 PM CDT) [facility] Method Time Signature Rupture of Negative Negative, CARLOS 05/24/2022 LABORATORY Invalid, 2:35 PM CDT Membranes by Suggest ROM Plus Repeat Specimen Anatomical Collection Method Collection Time Receive d Time (Source) Location / / Volume Laterality Swab VAGINAL STRUCTURE Non-blood 05/24/2022 1:59 PM 11/0 11/2021 2:14 / Unknown Collection / CDT PM CDT Unknown Narrative LABORATORY - 05/24/2022 2:35 PM CDT It is recommended that the tests to dete ct rupture of the amniotic membranes should not be used without other clinical asses sments to make clinical patient management decision. Faith Pearson MD LAB - BODY FLUIDS ORDERABLES Performing Organization Address City/State/ZIP Code Phon e Number LABORATORY [facility] [place] [phone] Care Lab [address] 1[address] floor, [address] NON-STRESS TEST [...] documented as of this encounter Care Teams Necktie Maker Relationship Specialty Start Date End Date Justin Loya MD PCP - General Family Practice 02/19/11 [facility] [address] [place] [phone] Silas Santiago MD MD Pain Clinic 11/29/13 [facility] [address] [place], [place] [phone] Caden Leone, Assigned Surgical Provider 07/20 01/08 [place] [address] documented as of this encounter
--- OUTSIDE RECORDS SUMMARY | 2022-06-23 17:39 | XMS_ITS | Encounter Summary ---
:1990 Author Organization [facility] Address [address] [place] [address] Care Team Providers Name Role Phone Justin Loya MD Primary Care Provider Silas Santiago MD Unavailable Caden Leone MD Unavailable [phone] Reason for Visit Reason Comments Rule Out Labor Encounter Details Date Type Department Care Team Description 05/28/2022 Hospital Encounter [facility] DO Serafin [address] [facility] [address] [place] [address] [place] [address] (Wo rk) Social History Tobacco Use Types [...] No / Unsu re 05/28/2022 1:06 AM SLATE PICKER someone who was confirmed or suspected to have Coronavirus/COVID-19? documented as of this encounter Last Filed Vital Signs Vital Sign Reading Time Taken Comments Blood Pressure 111/67 05/28/2022 8:00 AM SLATE PICKER Pulse 77 05/28/2022 8:00 AM SLATE PICKER Temperature 36.5 ??C (97.7 ??F) 05/28/2022 8:00 AM SLATE PICKER Respiratory Rate 14 05/28/2022 8:00 AM SLATE PICKER Oxygen Saturation - - Inhaled Oxygen Concentration - - Weight 77.6 kg (171 lb) 05/28/2022 1:13 AM SLATE PICKER Height 170.2 cm (5' 7) 05/28/2022 1:13 AM SLATE PICKER Body Mass Index 26.78 05/28/2022 1:13 AM SLATE PICKER documented in this encounter Discharge Instructions Discharge InstructionsJohn Caba RN - 05/28/2022 9:51 AM CST Discharge Instruction for Undelivered Patients You were seen for: Labor Assessment We Consulted: Dr. Lea You had (Test or Medicine): and uterine monitoring, cervical exam, labs Diet: Drink 8 to 12 glasses of liquids (milk, juice, water) every day. You may eat meals and snacks. Activity: Call your doctor or nurse manager infusion if your baby is moving less than usual. Call your provider if you notice: Pre eclampsia symptoms: Swelling in your face or increased swelling [...] than 10 minutes apart and getting stronger. Increase or change in vaginal discharge (note the color and amount) Follow-up: Make an appointment to be seen on this week with Dr. Ramsay E PICKER documented in this encounter Medications at Time [...] mouth daily documented as of this encounter Progress Notes Baljinder Lea DO - 05/28/2022 4:11 AM CST Observation note Destiney Cassidy is a 31 year old at 37w3d here for rule out labor. She began having contractions after her cervical exam yesterday (FT/50/-3) they started to become closer together and more uncomfortable prompting her to present for evaluation. No LOF, VB, worsening pain. She is planning repeat LTCS under general due to some spinal issues. FWB: cat 1 Cvx: FT/70/-3 posterior thick Results for orders placed or performed during the hospital encounter of 05/28/22 (from the past 24 hour(s)) Wet prep Specimen: Vagina; Swab Result Value Ref Range Trichomonas Absent Absent Yeast Absent Absent Clue Cells Present (A) Absent WBCs/high power field 4+ (A) None Rupture of Membranes by ROM Plus Result Value Ref Range Rupture of Membranes by ROM Plus Negative Negative, Invalid, Suggest Repeat Narrative It is recommended that the tests to detect rupture of the amniotic membranes should not be used without other clinical assessments to make clinical patient management decision. Rupture of Membranes by ROM Plus Result Value Ref Range Rupture of Membranes by ROM Plus Negative Negative, Invalid, Suggest Repeat Narrative It is recommended that the tests to detect rupture of the amniotic membranes should not be used without other clinical assessments to make clinical patient management decision. A/P at 37w3d no labor, contractions persist but no labor Plan vistaril to get her some rest BV: start metrogel Dispo: discharge in the am if feeling contractions are spaced. Move forward with CS under general ifpainful contractions presist. Baljinder Lea DO E PICKER documented in this encounter Miscellaneous Notes Plan of Care - John Caba RN - 05/28/2022 9:55 AM CST Pt feeling well and states contractions are mild and less frequent than yesterday. Dr. Lea here and discussed POC with pt and . Pt wants to go home. Pt discharged home, undelivered and left unit ambulatory with spouse. E PICKER Plan of Care - John Caba RN - 05/28/2022 7:30 AM CST Report received from Mj Chang RN. Pt slept all night and didn't call to report increased contractions or discomfort. Pt currently asleep now when RN peeked into room. E PICKER Plan of Care - Elizabeth Talley RN - 05/28/2022 4:27 AM CST Patient took vistaril and started metrogel but refused terbutaline at this time. Will notify RN if contractions get closer together or increase with intensity throughout the night. E PICKER Provider Notification - Elizabeth Talley RN - 05/28/2022 3:24 AM CST 05/28/22 0324 Provider Notification Provider Name/Title Dr. Lea Method of Notification Phone Request Evaluate - Remote Notification Reason Status Update New orders received, admit patient to OBS for further monitoring at this time. E PICKER Plan of Care - Elizabeth Talley RN - 05/28/2022 2:29 AM CST Patient feels as though her water broke, she felt a pop and some fluid coming out. Upon inspection of pad a small, quarter sized amount of clear discharge/fluid was noted on the pad. Patient agreed that she wanted another ROM+ to be collected and sent to lab to verify since not a significant amount of fluid was noted plus the fluid came out after a SVE with gel. Will continue to monitor for continuedleaking. E PICKER Plan of Care - Elizabeth Talley RN - 05/28/2022 12:51 AM CST Patient arrived to MAC via ambulation with significant other. Reports positive movement and denies any vaginal bleeding. Patient does report she may have some wetness, was recently treated for BVbut unsure if her discharge has changed since then. A UA was sent a few days ago that resulted negative. Will collect wet prep and rom+. Patient reports her cervix was a finger tip in the clinic earlier today but contractions have increased in intensity and frequency since then. Plan for the patient is to have a repeat c/section under general anesthesia due to history of back problems. Patient also reports anxiety when it comes to SVEs or anything inserted vaginally and would like to hold off on an S VE if possible at this time but will let RN know when she is ready for SVE. E PICKER documented in this encounter Plan of Treatment Not on filedocumented as of this encounter Procedures Procedure Name Priority Date/Time Associated Comments Diagnosis RUPTURE OF STAT 05/28/2022 2:23 AM Resul ts for this MEMBRANES BY ROM PLUS SLATE PICKER proced ure are in the results section. RUPTURE OF STAT 05/28/2022 12:36 Results for this MEMBRANES BY ROM PLUS AM SLATE PICKER proced ure are in the results section. WET PREPARATION STAT 05/28/2022 12:36 Results for this AM SLATE PICKER procedure are i n the results section. NON-STRESS TEST 05/28/2022 12:00 - HIM SCAN AM SLATE PICKER documented in this encounter Results Rupture of Membranes by ROM Plus (05/28/2022 2:23 AM SLATE PICKER) Patholo gist Method Time Signature Rupture of Negative Negative, CARLOS 05/28/2022 LABORATORY Invalid, 2:57 AM SLATE PICKER Membranes by Suggest ROM Plus Repeat Specimen Anatomical Location Collection Method Collection Time Received Time (Source) / Laterality / Volume Swab ENDOCERVICAL Non-blood 05/28/2022 2:23 05/28/2022 2 :31 STRUCTURE / Unknown Collection / AM SLATE PICKER AM SLATE PICKER Unknown Narrative LABORATORY - 05/28/2022 2:57 AM SLATE PICKER It is recommended that the tests to dete ct rupture of the amniotic membranes should not be used without other clinical asses sments to make clinical patient management decision. Baljinder Lea LAB - BODY FLUIDS ORDERABLES Performing Organization Address City/State/ZIP Code Phon e Number LABORATORY [place] [phone] Care Lab [address] floor, [address] Rupture of Membranes by ROM Plus (05/28/2022 12:36 AM SLATE PICKER) [facility] Method Time Signature Rupture of Negative Negative, CARLOS 05/28/2022 LABORATORY Invalid, 1:32 AM SLATE PICKER Membranes by Suggest ROM Plus Repeat Specimen Anatomical Collection Method Collection Time Receive d Time (Source) Location / / Volume Laterality Swab VAGINAL STRUCTURE Non-blood 05/28/2022 12:36 2021 1:08 / Unknown Collection / AM SLATE PICKER AM SLATE PICKER Unknown Narrative LABORATORY - 05/28/2022 1:32 AM SLATE PICKER It is recommended that the tests to dete ct rupture of the amniotic membranes should not be used without other clinical asses sments to make clinical patient management decision. Baljinder Lea Amvona LAB - BODY FLUIDS ORDERABLES Performing Organization Address City/State/ZIP Code Phon e Number LAB[place]ATORY [place] [address] [phone] Care Lab [address], [address] (ABNORMAL) Wet prep (05/28/2022 12:36 AM SLATE PICKER) [facility] Method Time Signature Trichomonas Absent Absent CARLOS 05/28/2022 LABORATORY 1:23 AM SLATE PICKER Yeast Absent Absent CARLOS 05/28/2022 LABORATORY 1:23 AM SLATE PICKER Clue Cells Present (A) Absent CARLOS 05/28/2022 LABORATORY 1:23 AM SLATE PICKER WBCs/high power 4+ (A) None CARLOS 05/28/2022 LABORATORY field 1:23 AM SLATE PICKER Specimen Anatomical Collection Method Collection Time Receive d Time (Source) Location / / Volume Laterality Swab VAGINAL STRUCTURE Non-blood 05/28/2022 12:36 2021 1:07 / Unknown Collection / AM SLATE PICKER AM SLATE PICKER Unknown Baljinder Lea DO LAB - MICRO GENERAL ORDERABL ES Performing Organization Address City/State/ZIP Code Phon e Number LABORATORY [place] [address] [phone] Care Lab [address], [address] NON-STRESS TEST - HIM SCAN (05/28/2022 12:00 AM SLATE PICKER) Specimen (Source) Anatomical Location Collection Method / Collectio n Time Received Time / Laterality Volume 05/28/2022 Narrative This result has an attachment that is no t available. Provider Outside PROCEDURES documented in this encounter Visit Diagnoses Not on filedocumented in this encounter Administered Medications Inactive Administered Medications - up to 3 most recent administrations Medication Order MAR Action Action Date Dose Rate Site hydrOXYzine (ATARAX) tablet 50 mg Given 05/28/2022 4:00 AM SLATE PICKER 50 mg 50 mg, Oral, EVERY 6 HOURS PRN, other, nervousness or restlessness, Starting on Thu05/28/22 at 0327, OB Preadmission lactated ringers BOLUS 500 mL New Bag 05/28/2022 1:58 AM SLATE PICKER 500 mLs Intravenous, 500 mL, ONCE, On Thu05/28/22 at 0100, For 1 dose, OB Preadmission lactated ringers infusion at 125 mL/hr, Intravenous, CONTINUOUS, O B Preadmission, Starting on Thu05/28/22 at 0200, Until Thu05/28/22 at 1208 lidocaine (LMX4) cream Topical, EVERY 1 HOUR PRN, pain, with VAD insertion, S tarting on Thu05/28/22 at 0033, Apply at least 30 minutes prior to [...] mild pain with VAD insertion, Starting on Thu05/28/22 at 0033, MAX dose 1 mL subcutane ous OR intradermal along the side of the vein in divided doses as needed for VAD insertion. Do NOT give if patient has a history of allergy to any local anesthet ic or any loyda product. Do NOT use both lidocaine intradermal/subcutaneous injec tion and the lidocaine cream on the same site., OB Preadmission metroNIDAZOLE (METROGEL) 0.75 % vaginal gel Given 05/28/2022 4:06 AM SLATE PICKER Vaginal, AT BEDTIME, First dose on Thu05/28/22 at 0330, For 7 doses ondansetron (ZOFRAN ODT) ODT tab 4 mg 4 mg, Oral, EVERY 6 HOURS PRN, nausea, v omiting, Starting on Thu05/28/22 at 0031, This is Step 2 of OB nausea [...] , Administer over 2-5 Minutes, Starting on Thu05/28/22 at 0031 , This is Step 2 of OB nausea and vomiting management. Give if nausea not resolved 30 minutes aft er giving metoclopramide (REGLAN). If nausea is not resolved in 15 minutes, go to Step 3 (Compazine). Irritant., OB Preadmission prochlorperazine (COMPAZINE) injection 1 0 mg 10 mg, Intravenous, EVERY 6 HOURS PRN, n ausea, vomiting, Administer over 2 Minutes, Starting on Thu05/28/22 at 0031, This is Step 3 of OB nausea and vomiting management. Give if nausea not resolved 15 minutes aft er giving ondansetron (ZOFRAN). If nausea is not resolved in 30 minutes, not gracy provider., OB Preadmission prochlorperazine (COMPAZINE) injection 1 0 mg 10 mg, Intravenous, EVERY 6 HOURS PRN, n ausea, vomiting, Administer over 2 Minutes, Starting on Thu05/28/22 at 0325, This is Step 3 of OB nausea and vomiting management. Give if nausea not resolved 15 minutes aft er giving ondansetron (ZOFRAN). If nausea is not resolved in 30 minutes, not gracy provider., OB Preadmission prochlorperazine (COMPAZINE) suppository 25 mg 25 mg, Rectal, EVERY 12 HOURS PRN, nausea, vomiting, S tarting on Thu05/28/22 at 0031, This is Step 3 of OB nausea and vomiting managem ent. Give if nausea not resolved 15 minutes after giving ondanse mao (ZOFRAN). If nausea is not resolved in 30 minutes, notify provider., OB Preadmission prochlorperazine (COMPAZINE) suppository 25 mg 25 mg, Rectal, EVERY 12 HOURS PRN, nausea, vomiting, S tarting on Thu05/28/22 at 0325, This is Step 3 of OB nausea and vomiting managem ent. Give if nausea not resolved 15 minutes after giving ondanse mao (ZOFRAN). If nausea is not resolved in 30 minutes, notify provider., OB Preadmission prochlorperazine (COMPAZINE) tablet 10 m g 10 mg, Oral, EVERY 6 HOURS PRN, nausea, vomiting, Starting on Thu05/28/22 at 0031, This is Step 3 of OB nausea and vomiting management. Give if nausea not resolved 15 minutes after giving ondansetron (ZOFRAN ). If nausea is not resolved in 30 minutes, notify provider., OB Preadmission prochlorperazine (COMPAZINE) tablet 10 m g 10 mg, Oral, EVERY 6 HOURS PRN, nausea, vomiting, Starting on Thu05/28/22 at 0325, This is Step 3 of OB nausea and vomiting management. Give if nausea not resolved 15 minutes after giving ondansetron (ZOFRAN ). If nausea is not resolved in 30 minutes, notify provider., OB Preadmission sodium chloride (PF) 0.9% PF flush 3 mL 3 mL, Intracatheter, EVERY 8 HOURS, First dose on Thu05/28/22 at 0100, to lock peripheral IV dormant line, OB Preadmission sodium chloride (PF) 0.9% PF flush 3 mL 3 mL, Intracatheter, EVERY 1 MIN PRN, li ne flush, other, to ensure patency or to lock dormant line, Starting on Thu05/28/22 at 0033, OB Preadmission sodium chloride (PF) 0.9% PF flush 3 mL 3 mL, Intracatheter, EVERY 8 HOURS, First dose on Thu05/28/22 at 0330, to lock peripheral IV dormant line, OB Preadmission sodium chloride (PF) 0.9% PF flush 3 mL 3 mL, Intracatheter, EVERY 1 MIN PRN, li ne flush, other, to ensure patency or to lock dormant line, Starting on Thu05/28/22 at 0329, OB Preadmission terbutaline (BRETHINE) injection 0.25 mg 0.25 mg, Subcutaneous, ONCE PRN, IF uterine tachysysto le. Notify provider., Starting on Thu05/28/22 at 0034, For 1 dose, OB Preadm ission terbutaline (BRETHINE) injection 0.25 mg 0.25 mg, Subcutaneous, ONCE PRN, IF uterine tachysysto le. Notify provider., Starting on Thu05/28/22 at 0327, For 1 dose, OB Preadm ission documented in this encounter Active and Recently Administered Medications Times are shown in SLATE PICKER. Scheduled Medication Order 05/26/2022 05/27/2022 05/28/2022 lactated ringers BOLUS 500 mL (COMPLETED) 0158 (New Bag - Provider: Elizabeth Talley, ALDO)0232 (Stopped - Provider: Elizabeth Talley, ALDO) Intravenous, 500 mL, ONCE, On Thu05/28/22 at 0100, For 1 dos e, OB Preadmission metroNIDAZOLE (METROGEL) 0.75 % vaginal gel 0406 (Given - Provider: Elizabeth Talley, ALDO) Vaginal, AT BEDTIME, First dose on Thu05/28/22 at 0330, For 7 do ses sodium chloride (PF) 0.9% PF flush 3 mL 0200 (Not Given - Provider: Elizabeth Talley RN - Reason: IV Infusing)0930 (Not Given - Provider: John Caba RN - Reason: Med discontinued by Provider) 3 mL, Intracatheter, EVERY 8 HOURS, Firs t dose on Thu05/28/22 at 0100, to lock peripheral IV dormant line, OB Preadmission sodium chloride (PF) 0.9% PF flush 3 mL 0330 (Not Given - Provider: Elizabeth Talley RN - Reason: Other)1130 (Canceled Entry - Provider: Orders Generic Provider - Comment: Automatically canceled at discontinue of medication order) 3 mL, Intracatheter, EVERY 8 HOURS, Firs t dose on Thu05/28/22 at 0330, to lock peripheral IV dormant line, OB Preadmission Continuous Medication Order 05/26/2022 05/27/2022 05/28/2022 lactated ringers infusion 0323 ( Not Given - Provider: Elizabeth Talley RN - Reason: Other) at 125 mL/hr, Intravenous, CONTINUOUS, O B Preadmission, Starting on Thu05/28/22 at 0200, Until Thu05/28/22 at 1208 PRN Medication Order 05/26/2022 05/27/2022 05/28/2022 hydrOXYzine (ATARAX) tablet 50 mg 0400 (Given - Provider: Elizabeth Talley RN) 50 mg, Oral, EVERY 6 HOURS PRN, other, n ervousness or restlessness, Starting on Thu05/28/22 at 0327, OB Preadmission lidocaine (LMX4) cream Topical, EVERY 1 HOUR PRN, pain, with VA D insertion, Starting on Thu05/28/22 at 0033, Apply at least 30 minutes prior to VAD insertion in divided doses as needed for size of site for insertion. MAX Dose : 2.5 g (?? of 5 g tube) Do NOT give if patient has a history of allergy to any local anesthetic or any loyda product. Do NOT use both lidocaine intradermal/subcutaneous injection and the lidocaine cream on the same site., OB Preadmission lidocaine 1 % 0.1-1 mL 0.1-1 mL, Other, EVERY 1 HOUR PRN, mild pain with VAD insertion, Starting on Thu05/28/22 at 0033, MAX dose 1 mL subcutaneous OR intradermal along the side of the vein in divided doses as needed for VAD insertion. Do NOT give if patient has a history of allergy to any local anesthetic or any loyda product. Do NOT use both lidocaine intradermal/subcutaneous injection and the lidocaine cream on the same site., OB Preadmission ondansetron (ZOFRAN ODT) ODT tab 4 mg(Linked Group 1) 4 mg, Oral, EVERY 6 HOURS PRN, nausea, v omiting, Starting on Thu05/28/22 at 0031, This is Step 2 of OB nausea [...] vomiting, Administer over 2-5 Minutes, Starting on Thu05/28/22 at 0031, This is Step 2 of OB nausea and vomiting management. Give if nausea not resolved 30 minutes after giving metoclopramide (REG ROSANGELA). If nausea is not resolved in 15 minutes, go to Step 3 (Compazine). Irritant., OB Preadmission prochlorperazine (COMPAZINE) injection 10 mg(Linked Group 2) 10 mg, Intravenous, EVERY 6 HOURS PRN, n ausea, vomiting, Administer over 2 Minutes, Starting on Thu05/28/22 at 0031, This is Step 3 of OB nausea and vomiting management. Give if nausea not resolved 15 m inutes after giving ondansetron (ZOFRAN) . If nausea is not resolved in 30 minutes, notify provider., OB Preadmission prochlorperazine (COMPAZINE) injection 10 mg(Linked Group 3) 10 mg, Intravenous, EVERY 6 HOURS PRN, n ausea, vomiting, Administer over 2 Minutes, Starting on Thu05/28/22 at 0325, This is Step 3 of OB nausea and vomiting management. Give if nausea not resolved 15 m inutes after giving ondansetron (ZOFRAN) . If nausea is not resolved in 30 minutes, notify provider., OB Preadmission prochlorperazine (COMPAZINE) suppository 25 mg(Linked Group 2) 25 mg, Rectal, EVERY 12 HOURS PRN, nause a, vomiting, Starting on Thu05/28/22 at 0031, This is Step 3 of OB nausea and vomiting management. Give if nausea not resolved 15 minutes after giving ondansetron (ZOFRAN). If nausea is not resolved in 30 minutes, notify provider., OB Preadmission prochlorperazine (COMPAZINE) suppository 25 mg(Linked Group 3) 25 mg, Rectal, EVERY 12 HOURS PRN, nause a, vomiting, Starting on Thu05/28/22 at 0325, This is Step 3 of OB nausea and vomiting management. Give if nausea not resolved 15 minutes after giving ondansetron (ZOFRAN). If nausea is not resolved in 30 minutes, notify provider., OB Preadmission prochlorperazine (COMPAZINE) tablet 10 mg(Linked Group 2) 10 mg, Oral, EVERY 6 HOURS PRN, nausea, vomiting, Starting on Thu05/28/22 at 0031, This is Step 3 of OB nausea and vomiting management. Give if nausea not resolved 15 minutes after giving ondansetron (Z OFRAN). If nausea is not resolved in 30 minutes, notify provider., OB Preadmission prochlorperazine (COMPAZINE) tablet 10 mg(Linked Group 3) 10 mg, Oral, EVERY 6 HOURS PRN, nausea, vomiting, Starting on Thu05/28/22 at 0325, This is Step 3 of OB nausea and vomiting management. Give if nausea not resolved 15 minutes after giving ondansetron (Z OFRAN). If nausea is not resolved in 30 minutes, notify provider., OB Preadmission sodium chloride (PF) 0.9% PF flush 3 mL 3 mL, Intracatheter, EVERY 1 MIN PRN, li ne flush, other, to ensure patency or to lock dormant line, Starting on Thu05/28/22 at 0033, OB Preadmission sodium chloride (PF) 0.9% PF flush 3 mL 3 mL, Intracatheter, EVERY 1 MIN PRN, li ne flush, other, to ensure patency or to lock dormant line, Starting on Thu05/28/22 at 0329, OB Preadmission terbutaline (BRETHINE) injection 0.25 mg 0.25 mg, Subcutaneous, ONCE PRN, IF uter ine tachysystole. Notify provider., Starting on Thu05/28/22 at 0034, For 1 dose, OB Preadmission terbutaline (BRETHINE) injection 0.25 mg 0426 (Not Given - Provider: Elizabeth Talley RN - Reason: Patient/family refused) 0.25 mg, Subcutaneous, ONCE PRN, IF uter ine tachysystole. Notify provider., Starting on Thu05/28/22 at 0327, For 1 dose, OB Preadmission Linked Groups Order Group 1: ondansetron (ZOFRAN ODT) ODT tab 4 mgJump to med 4 mg, Oral, EVERY 6 HOURS PRN, nausea, v omiting, Starting on Thu05/28/22 at 0031
This is Step 2 of OB nausea [...] vomiting, Administer over 2-5 Minutes, Starting on Thu05/28/22 at 0031
This is Step 2 of OB nausea and vomiting management. Give if nausea not resolved 30 minutes after giving metoclopramide (REGLAN). If nausea is not resolved in 15 minutes, go to Step 3 (Compazine). Irritant.
OB Preadmission Group 2: prochlorperazine (COMPAZINE) injection 10 mgJump to med 10 mg, Intravenous, EVERY 6 HOURS PRN, n ausea, vomiting, Administer over 2 Minutes, Starting on Thu05/28/22 at 0031
This is Step 3 of OB nausea and vomiting management. Give if nausea not resol ching 15 minutes after giving ondansetron (ZOFRAN). If nausea is not resolved in 30 minutes, notify provider.
OB Preadmission Or prochlorperazine (COMPAZINE) tablet 10 mgJump to med 10 mg, Oral, EVERY 6 HOURS PRN, nausea, vomiting, Starting on Thu05/28/22 at 0031
This is Step 3 of OB nausea and vomiting management. Give if nausea not resolved 15 minutes after giving ondans etron (ZOFRAN). If nausea is not resolve d in 30 minutes, notify provider.
OB Preadmission Or prochlorperazine (COMPAZINE) suppository 25 mgJump to med 25 mg, Rectal, EVERY 12 HOURS PRN, nause a, vomiting, Starting on Thu05/28/22 at 0031
This is Step 3 of OB nausea and vomiting management. Give if nausea not resolved 15 minutes after giving ond ansetron (ZOFRAN). If nausea is not reso lved in 30 minutes, notify provider.
OB Preadmission Group 3: prochlorperazine (COMPAZINE) injection 10 mgJump to med 10 mg, Intravenous, EVERY 6 HOURS PRN, n ausea, vomiting, Administer over 2 Minutes, Starting on Thu05/28/22 at 0325
This is Step 3 of OB nausea and vomiting management. Give if nausea not resol ching 15 minutes after giving ondansetron (ZOFRAN). If nausea is not resolved in 30 minutes, notify provider.
OB Preadmission Or prochlorperazine (COMPAZINE) tablet 10 mgJump to med 10 mg, Oral, EVERY 6 HOURS PRN, nausea, vomiting, Starting on Thu05/28/22 at 0325
This is Step 3 of OB nausea and vomiting management. Give if nausea not resolved 15 minutes after giving ondans etron (ZOFRAN). If nausea is not resolve d in 30 minutes, notify provider.
OB Preadmission Or prochlorperazine (COMPAZINE) suppository 25 mgJump to med 25 mg, Rectal, EVERY 12 HOURS PRN, nause a, vomiting, Starting on Thu05/28/22 at 0325
This is Step 3 of OB nausea and vomiting management. Give if nausea not resolved 15 minutes after giving ond ansetron (ZOFRAN). If nausea is not reso lved in 30 minutes, notify provider.
OB Preadmission documented in this encounter Additional Health Concerns Assessment Noted Time PHQ-9 Depression Total Score: 2 01/26/2019 11:18 AM CD T documented as of this encounter Care Teams Tax Attorney Relationship Specialty Start Date End Date Justin Loya MD PCP - General Family Practice 02/19/11 [facility] [facility] [address] [place] [phone] Silas Santiago MD MD Pain Clinic 11/29/13 [facility] [address] [place] [address] Caden Leone, Assigned Surgical Provider 07/20 01/08 MD Mike BHAKTA [place], [place] [id number] documented as of this encounter
--- OUTSIDE RECORDS SUMMARY | 2022-06-23 17:39 | XMS_ITS | Encounter Summary ---
:1990 Author Organization [place] Address [address] [place] [address] Care Team Providers Name Role Phone Justin Loya MD Primary Care Provider Silas Santiago MD Unavailable Caden Leone MD Unavailable [phone] Reason for Visit Auth/Cert (Routine) Specialty Diagnoses / Procedures Referred By Contact Refer red To Contact alliance manager Diagnoses Previous section Indication for care in labor or delivery Previous section [Z98.891] Indication for care in labor or delivery Sh Mac Procedures [facility] FULL ROUT OBSTE CARE, DELIV [facility] DELIVERY ONLY [facility] DELIVERY+ CARE REPEAT SECTION [address] [place] [address] Phone: Referral ID Status Reason Start Date Expiration Date Visits Requ ested Visits Authorized [id number] 1 1 Encounter Details Date Type Department Care Team Description 04/28/2022 Hospital Encounter [facility] Belkis Messina [facility] [address] [place] [address] [place], [place] [phone] (Wo rk) Social History Tobacco Use Types [...] Sign Reading Time Taken Comments Blood Pressure 108/73 04/28/2022 9:00 PM CDT Pulse - - Temperature 36.3 ??C (97.3 ??F) 04/28/2022 9:00 PM CDT Respiratory Rate - - Oxygen Saturation - - Inhaled Oxygen Concentration - - Weight - - Height - - Body Mass Index - - documented in this encounter Discharge Instructions Discharge InstructionsElsa Henry RN - 04/28/2022 11:32 PM CDT Images from the original note were not included. Discharge Instruction for Undelivered Patients You were seen for: Labor Assessment We Consulted: Dr Messina You had (Test or Medicine):Urinalysis, NST, IV fluids Diet: Drink 8 to 12 glasses of liquids (milk, juice, water) every day. You may eat meals and snacks. Activity: Count kicks everyday (see handout) Call your doctor or nurse youth services specialist if your baby is moving less than [...] discharge (note the color and amount) Other: Follow-up: As scheduled in the clinic Kick Counts It???s normal to worry about your baby???s health. One way you can know your baby???s doing well is to record the baby???s movements once a day. This is called a kick count. Remember to take your kick count records to all your appointments with your healthcare provider. How to count kicks Time how long it takes you to feel 10 kicks, flutters, swishes, or rolls. Ideally, you want to feel at least 10 movements in 2 hours. You will likely feel 10 movements in less time than that. Starting at 28 weeks, count your baby's movements daily. Follow your healthcare provider's instructions for kick counting. Here are tips for counting kicks: Choose a time when the baby is active, such as after a meal. Sit comfortably or lie on your side. The first time the baby moves, write down the time. Count each movement until the baby has moved 10 times. This can take from 20 minutes to 2 hours. If you haven't felt 10 kicks by the end of the second hour, wait a few hours. Then try again. Try to do it at the same time each day. When to call your healthcare provider Call your healthcare provider right away if: You do a couple sets of kick counts during the day and your baby moves fewer than 10 times in 2 hours. Your baby moves much less often than on the days before. You haven't felt your baby move all day. [employer] last reviewed this educational content on 02/18/2020 ?? [id number] [employer]. All rights reserved. This information is not intended as a substitute for professional medical care. Always follow your healthcare professional's instructions. documented in this encounter Medications at Time [...] of Care - Rosey Su RN - 04/28/2022 11:19 PM CDT at 33w1d admitted to [facility] for labor contractions. She states she has been jyotsna every 10 minutes for 2 days. Denies any leaking of fluid or bleeding. Placed on monitors with verbal consent and oriented to room and plan of care. UA collected and sent. Contractions on monitor initiallywere every 4-7 min with irritability. Ketones in urine. Patient has a very hard time with cervical exams and extreme anxiety around this. Asked to not have exam until monitoring completed and if needed. Dr Messina called and orders received for 1 L LR bollus. After infusion patient agreed to a vaginal exam and was very anxious but talked through it and was ok with myself performing exam. head was low 0 to -1 station which she states was what she was told at the clinic and cervix was very posterior. Due to patient extreme discomfort and anxiety, I was unable to reach cervix. Patient was reassured that she was not fully dilated. Dr Messina called and updated. Orders received to discharge home if patient feels comfortable. Patient discussed and she feels comfortable going home and will call if contractions continue to getmore intense or rupture of membranes. AVS signed and patient discharged home, ambulatory upon discharge. documented in this encounter Plan of Treatment Not on filedocumented as of this encounter Procedures Procedure Name Priority Date/Time Associated Comments Diagnosis ROUTINE UA WITH Routine 04/28/2022 9:13 PM Result s for this MICROSCOPIC REFLEX TO CDT proced ure are in CULTURE the results section. NON-STRESS TEST 04/28/2022 12:00 - HIM SCAN AM CDT documented in this encounter Results (ABNORMAL) UA with Microscopic reflex to Culture (04/28/2022 9:13 PM CDT) [facility] Method Time Signature Color Urine Straw Colorless, 04/28/2022 LABORATORY Straw, Light 9:31 PM CDT Yellow, Yellow Appearance Urine Clear Clear 04/28/2022 LABORATOR Y 9:31 PM CDT Glucose Urine Negative Negative 04/28/2022 LABORATORY mg/dL 9:31 PM CDT Bilirubin Urine Negative Negative 04/28/2022 LABORATORY 9:31 PM CDT Ketones Urine 10 (A) Negative 04/28/2022 LABORATORY mg/dL 9:31 PM CDT Specific [place] 1.004 1.003 - 04/28/2022 LABORATOR Y Urine [...] Address City/State/ZIP Code Phon e Number LABORATORY [place] [address] [facility] [address] 1[address] floor, [...] MAR Action Action Date Dose Rate Site lactated ringers BOLUS New Bag 04/28/2022 10:05 PM 1,000 mLs 1000 mL/hr 1,000 mL CDT Intravenous, 1,000 mL, ONCE, at 1,000 mL/hr, Administer over 1 Hours, On Thu04/28/22 at 2200, For 1 dose metoclopramide (REGLAN) injection 10 mg 10 mg, Intravenous, Administer over 2 Mi nutes, EVERY 6 HOURS PRN, nausea, vomiting, Starting on Thu04/28/22 at 2054, This is Step 1 of OB nausea and vomiting management. If nausea is not resolved in 30 minutes, go to Step 2 (Zofran). Avoid use if patient has full bowel obstruction or perforati on. Irritant., OB Preadmission metoclopramide (REGLAN) tablet 10 mg 10 mg, Oral, EVERY 6 HOURS PRN, nausea a nd vomiting, Starting on Thu04/28/22 at 2054, This is Step 1 of OB nausea and vomiting managem ent. If nausea is not resolved in 30 minutes, go to Step 2 (Zo yodit) Avoid use if patient has full bowel obstruction or perforation., OB Preadmission ondansetron (ZOFRAN ODT) ODT tab 4 mg 4 mg, Oral, EVERY 6 HOURS PRN, nausea, v omiting, Starting on Thu04/28/22 at 2054, This is Step 2 of OB nausea [...] , Administer over 2-5 Minutes, Starting on Thu04/28/22 at 205 5, This is Step 2 of OB nausea and vomiting management. Give if nausea not resolved 30 minutes aft er giving metoclopramide (REGLAN). If nausea is not resolved in 15 minutes, go to Step 3 (Compazine). Irritant., OB Preadmission prochlorperazine (COMPAZINE) injection 1 0 mg 10 mg, Intravenous, EVERY 6 HOURS PRN, n ausea, vomiting, Administer over 2 Minutes, Starting on Thu04/28/22 at 2055, This is Step 3 of OB nausea and vomiting management. Give if nausea not resolved 15 minutes aft er giving ondansetron (ZOFRAN). If nausea is not resolved in 30 minutes, not gracy provider., OB Preadmission prochlorperazine (COMPAZINE) suppository 25 mg 25 mg, Rectal, EVERY 12 HOURS PRN, nause a, vomiting, Starting on Thu04/28/22 at 2055, This is Step 3 of OB nausea and vomiting managem ent. Give if nausea not resolved 15 minutes after giving ondanse mao (ZOFRAN). If nausea is not resolved in 30 minutes, notify provider., OB Preadmission prochlorperazine (COMPAZINE) tablet 10 m g 10 mg, Oral, EVERY 6 HOURS PRN, nausea, vomiting, Starting on Thu04/28/22 at 2055, This is Step 3 of OB nausea and vomiting management. Give if nausea not resolved 15 minutes after giving ondansetron (ZOFRAN ). If nausea is not resolved in 30 minutes, notify provider., OB Preadmission documented in this encounter Active and Recently Administered Medications Times are shown in CDT. Scheduled Medication Order 04/26/2022 04/27/2022 04/28/2022 lactated ringers BOLUS 1,000 mL (COMPLETED) 2205 (New Bag - Provider: Liza Arredondo, RN)2305 (Stopped - Provider: Rosey Su RN) Intravenous, 1,000 mL, ONCE, at 1,000 mL /hr, Administer over 1 Hours, On Thu04/28/22 at 2200, For 1 dose PRN Medication Order 04/26/2022 04/27/2022 04/28/2022 metoclopramide (REGLAN) injection 10 mg(Linked Group 1) 10 mg, Intravenous, Administer over 2 Mi nutes, EVERY 6 HOURS PRN, nausea, vomiting, Starting on Thu04/28/22 at 2054, This is Step 1 of OB nausea and vomiting management. If nausea is not resolved in 30 minutes, go to Step 2 (Zofran). Avoid u se if patient has full bowel obstruction or perforation. Irritant., OB Preadmission metoclopramide (REGLAN) tablet 10 mg(Linked Group 1) 10 mg, Oral, EVERY 6 HOURS PRN, nausea a nd vomiting, Starting on Thu04/28/22 at 2054, This is Step 1 of OB nausea and vomiting management. If nausea is not resolved in 30 minutes, go to Step 2 (Zofran) Avoid use if patient has full bowel obs truction or perforation., OB Preadmission ondansetron (ZOFRAN ODT) ODT tab 4 mg(Linked Group 2) 4 mg, Oral, EVERY 6 HOURS PRN, nausea, v omiting, Starting on Thu04/28/22 at 2054, This is Step 2 of OB nausea [...] vomiting, Administer over 2-5 Minutes, Starting on Thu04/28/22 at 2054, This is Step 2 of OB nausea and vomiting management. Give if nausea not resolved 30 minutes after giving metoclopramide (RE GLAN). If nausea is not resolved in 15 minutes, go to Step 3 (Compazine). Irritant., OB Preadmission prochlorperazine (COMPAZINE) injection 10 mg(Linked Group 3) 10 mg, Intravenous, EVERY 6 HOURS PRN, n ausea, vomiting, Administer over 2 Minutes, Starting on Thu04/28/22 at 2054, This is Step 3 of OB nausea and vomiting management. Give if nausea not resolved 15 minutes after giving ondansetron (ZOFRAN ). If nausea is not resolved in 30 minutes, notify provider., OB Preadmission prochlorperazine (COMPAZINE) suppository 25 mg(Linked Group 3) 25 mg, Rectal, EVERY 12 HOURS PRN, nause a, vomiting, Starting on Thu04/28/22 at 2054, This is Step 3 of OB nausea and vomiting management. Give if nausea not resolved 15 minutes after giving ondansetro n (ZOFRAN). If nausea is not resolved in 30 minutes, notify provider., OB Preadmission prochlorperazine (COMPAZINE) tablet 10 mg(Linked Group 3) 10 mg, Oral, EVERY 6 HOURS PRN, nausea, vomiting, Starting on Thu04/28/22 at 2054, This is Step 3 of OB nausea and vomiting management. Give if nausea not resolved 15 minutes after giving ondansetron ( ZOFRAN). If nausea is not resolved in 30 minutes, notify provider., OB Preadmission Linked Groups Order Group 1: metoclopramide (REGLAN) injection 10 mgJump to med 10 mg, Intravenous, Administer over 2 Mi nutes, EVERY 6 HOURS PRN, nausea, vomiting, Starting on Thu04/28/22 at 2054
This is Step 1 of OB nausea and vomiting management. If n ausea is not resolved in 30 minutes, go to Step 2 (Zofran). Avoid use if patient has full bowel obstruction or perforation. Irritant.
OB Preadmission Or metoclopramide (REGLAN) tablet 10 mgJump to med 10 mg, Oral, EVERY 6 HOURS PRN, nausea a nd vomiting, Starting on Thu04/28/22 at 2054
This is Step 1 of OB nausea and vomiting management. If nausea is not resolved in 30 min utes, go to Step 2 (Zofran) Avoid u se if patient has full bowel obstruction or perforation.
OB Preadmission Group 2: ondansetron (ZOFRAN ODT) ODT tab 4 mgJump to med 4 mg, Oral, EVERY 6 HOURS PRN, nausea, v omiting, Starting on Thu04/28/22 at 2054
This is Step 2 of OB nausea [...] vomiting, Administer over 2-5 Minutes, Starting on Thu04/28/22 at 2054
This is Step 2 of OB nausea [...] vomiting, Administer over 2 Minutes, Starting on Thu04/28/22 at 2054
This is Step 3 of OB nausea and vomiting management. Give if nausea not reso lved 15 minutes after giving ondansetron (ZOFRAN). If nausea is not resolved in 30 minutes, notify provider.
OB Preadmission Or prochlorperazine (COMPAZINE) tablet 10 mgJump to med 10 mg, Oral, EVERY 6 HOURS PRN, nausea, vomiting, Starting on Thu04/28/22 at 2054
This is Step 3 of OB nausea and vomiting management. Give if nausea not resolved 15 minutes after giving ondan setron (ZOFRAN). If nausea is not resolv ed in 30 minutes, notify provider.
OB Preadmission Or prochlorperazine (COMPAZINE) suppository 25 mgJump to med 25 mg, Rectal, EVERY 12 HOURS PRN, nause a, vomiting, Starting on 04/28/22 at 2055
This is Step 3 of OB nausea and vomiting management. Give if nausea not resolved 15 minutes after giving on dansetron (ZOFRAN). If nausea is not res olved in 30 minutes, notify provider.
OB Preadmission documented in this encounter Additional Health Concerns Assessment Noted Time PHQ-9 Depression Total Score: 2 01/26/2019 11:18 AM CD T documented as of this encounter Care Teams Ground Source Heat Pump Technician Relationship Specialty Start Date End Date Justin Loya MD PCP - General Family Practice 02/19/11 [facility] [address] [place] [address] Silas Santiago MD MD Pain Clinic 11/29/13 [facility] [address] [place], [place] [address] Caden Leone, Assigned Surgical Provider 07/20 01/08 [place] [address] documented as of this encounter
--- OUTSIDE RECORDS SUMMARY | 2022-06-23 17:39 | XMS_ITS | Encounter Summary ---
:1990 Author Organization [place] Address [address] [place] [address] Care Team Providers Name Role Phone Justin Loya MD Primary Care Provider Silas Santiago MD Unavailable Caden Leone MD Unavailable [phone] Reason for Visit Reason Comments Arm Pain Encounter Details Date Type Department Care Team Description 05/31/2022 Emergency [facility] Saroj Shafer P ain of finger of [facility] Emergency Dep t left hand [address] [facility] [address] [address] [phone] [facility] [address] [place] [address] (Wo rk) Social History Tobacco Use Types [...] No / Unsu re 05/31/2022 8:49 PM ANESTHESIOLOGY FELLOW someone who was confirmed or suspected to have Coronavirus/COVID-19? documented as of this encounter Last Filed Vital Signs Vital Sign Reading Time Taken Comments Blood Pressure 122/75 05/31/2022 11:20 PM ANESTHESIOLOGY FELLOW Pulse 89 05/31/2022 11:20 PM ANESTHESIOLOGY FELLOW Temperature 36.4 ??C (97.5 ??F) 05/31/2022 9:07 PM ANESTHESIOLOGY FELLOW Respiratory Rate 14 05/31/2022 11:20 PM ANESTHESIOLOGY FELLOW Oxygen Saturation 99% 05/31/2022 11:20 PM ANESTHESIOLOGY FELLOW Inhaled Oxygen Concentration - - Weight - - Height - - Body Mass Index - - documented in this encounter Discharge Instructions Discharge InstructionsSaroj Shafer MD - 05/31/2022 11:10 PM ANESTHESIOLOGY FELLOW I recommend Tylenol, heat pack and elevation to your hand for mild discomfort. Should you develop significant swelling of your left arm, develop chest pain, chest pressure or shortness of breath, you should return here to the emergency department. THESIOLOGY FELLOW documented in this encounter Medications at Time [...] MG tablet documented as of this encounter ED Notes Jocelyn Longoria RN - 05/31/2022 8:58 PM CST Pt presents to ED with left hand and arm pain. Pt states she had an IV in hand pm Thursday morning and the pain/pressure extends from the IV site up into the arm and neck. THESIOLOGY FELLOW Saroj Shafer MD - 05/31/2022 8:48 PM CST History Chief Complaint: No chief complaint on file. HPI Destiney Cassidy is a 31 year old female at 38 weeks gestational age presenting for left calf pain after she was admitted overnight for observation with contractions and IV fluids the day prior. 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 Denies any chest pain, chest pressure or shortness of breath ROS: Review of Systems 10 point ROS completed, negative except as indicated in the HPI. Allergies: Cephalosporins Penicillins Ciprofloxacin Pollen Extract Metoclopramide Medications: ferrous sulfate (FEROSUL) 325 (65 Fe) MG tablet polyethylene glycol (MIRALAX) 17 g packet Vit-Fe Fumarate-FA ( MULTIVITAMIN PLUS IRON) 27-1 MG TABS Past Medical History: Past Medical History: Diagnosis Date ??? Anxiety ??? Graves disease ??? Insomnia ??? Neuropathy ??? POTS (postural orthostatic tachycardia syndrome) ??? Thrombosis of left jugular vein ??? Trigeminal neuralgia Past Surgical History: Past Surgical History: Procedure Laterality Date ??? SECTION 2020 ??? DECOMPRESSION LUMBAR MINIMALLY INVASIVE ONE LEVEL 02/19/2011 Procedure:DECOMPRESSION LUMBAR MINIMALLY INVASIVE ONE LEVEL; L5-S1; Surgeon:KAYE HERNANDEZ; Location:[facility] OR ??? MYRINGOTOMY, INSERT TUBE BILATERAL, COMBINED ??? TONSILLECTOMY ??? WISDOM TEETH EXTRACTION Family History: family history is not on file. Social History: reports that she has never smoked. She has never used smokeless tobacco. She reports that she does not drink alcohol and does not use drugs. PCP: Justin Loya Physical Exam Patient Vitals for the past 24 hrs: BP Temp Temp src Pulse Resp SpO2 05/31/222106 124/74 97.5 ??F (36.4 ??C) Temporal -- -- -- 05/31/222058 (!) 131/90 -- -- -- -- -- 05/31/222056 -- -- -- 96 18 97 % Physical Exam Constitutional: Alert, attentive, GCS 15 Eyes: EOM are normal, anicteric, conjugate gaze CV: distal extremities warm, well perfused Chest: Non-labored breathing on RA GI: Gravid MSK: Puncture wound on dorsum of left hand is clean dry and intact without surrounding erythema, no palpable cord, no swelling of the hand or arm, brisk cap refill and good radial pulse Neurological: Alert, attentive, moving all extremities equally. Skin: Skin is warm and dry. Emergency Department Course Imaging: US Upper Extremity Venous Duplex Left Final Result IMPRESSION: 1. No deep venous thrombosis in the left upper extremity. Report per radiology Emergency Department Course: Reviewed: I reviewed nursing notes, vitals and past medical history Disposition: The patient was discharged to home. Impression & Plan Medical Decision Makin-year-old woman at 38 weeks gestational age past medical history significant for anxiety, neuropathy, POTS, trigeminal neuralgia and left IJ thrombosis thought secondary to superficial thrombophlebitis from a left AC IV remotely not on anticoagulation presenting for left hand pain radiating up her arm after she had a peripheral IV placed for IV hydration secondary to contractions we will monitor onL&D 2 days prior. Ultrasound completed prior to my assessment shows no evidence of DVT in the left upper arm as well as no evidence of superficial thrombophlebitis extending into the dorsum of the hand. I do not feel any palpable cord, there is no evidence of cellulitis and no significant swellingto the hand. I have low suspicion for thrombotic event. I recommended concern management Tylenol, heat pack and elevation. Return precautions reviewed and she was discharged home. Diagnosis: ICD-10-CM 1. Pain of finger of left hand M79.645 Saroj Shafer MD [facility] [employer] 11:16 PM 05/31/22 Saroj Shafer MD 05/31/22 2316 THESIOLOGY FELLOW documented in this encounter Plan of Treatment Not on filedocumented as of this encounter Procedures Procedure Name Priority Date/Time Associated Diagnosis Comme nts US UPPER EXTREMITY STAT 05/31/2022 10:14 PM Re sults for this VENOUS DUPLEX LEFT ANESTHESIOLOGY FELLOW procedure are in the results section. documented in this encounter Results US Upper Extremity Venous Duplex Left (05/31/2022 10:14 PM ANESTHESIOLOGY FELLOW) Anatomical Region Laterality Modality Extremity Ultrasound Specimen (Source) Anatomical Collection Method Collection Time Re ceived Time Location / / Volume Laterality 05/31/2022 10:14 PM ANESTHESIOLOGY FELLOW Impressions 05/31/2022 10:22 PM ANESTHESIOLOGY FELLOW IMPRESSION: 1. ??No deep venous thrombosis in the le ft upper extremity. Narrative 05/31/2022 10:22 PM ANESTHESIOLOGY FELLOW EXAM: US UPPER EXTREMITY VENOUS DUPLEX LEFT LOCATION: [facility] DATE/TIME: 05/31/2022 10:14 PM INDICATION: Left arm pain after IV. Hx o f UE blood clot. COMPARISON: 11/30/2020 TECHNIQUE: Venous Duplex ultrasound of t he [...] thrombosis. No supe rficial thrombophlebitis. Procedure Note Albaro Cochran DO - 05/31/2022 EXAM: US UPPER EXTREMITY VENOUS DUPLEX L EFT LOCATION: [facility] DATE/TIME: 05/31/2022 10:14 PM INDICATION: Left arm pain after IV. Hx o f UE blood clot. COMPARISON: 11/30/2020 TECHNIQUE: Venous Duplex ultrasound of t he [...] venous thrombosis in the left upper extremity. Saroj Shafer MD IMG US ORDERABLES documented in this encounter Visit Diagnoses Diagnosis Pain of finger of left hand Pain in limb documented in this encounter Additional Health Concerns Assessment Noted Time PHQ-9 Depression Total Score: 2 01/26/2019 11:18 AM CD T documented as of this encounter Care Teams Creative Art Director Relationship Specialty Start Date End Date Justin Loya MD PCP - General Family Practice 02/19/11 [facility] [address] [place] [address] Silas Santiago MD MD Pain Clinic 11/29/13 [facility] [address] [place], [place] [address] Caden Leone, Assigned Surgical Provider 07/20 01/08 [place] [address] documented as of this encounter
--- OUTSIDE RECORDS SUMMARY | 2022-06-23 17:40 | XMS_ITS | Encounter Summary ---
:1990 Author Organization [place] Address [facility] [place] [address] Care Team Providers Name Role Phone Justin Loya MD Primary Care Provider Silas Santiago MD Unavailable Caden Leone MD Unavailable [phone] Encounter Details Date Type Department Care Team Description 03/07/2022 Travel Social History Tobacco Use Types Packs/Day Years Used Date Smoking Tobacco: Never Smokeless Tobacco: Never Alcohol Use Standard Drinks/Week Comments No 0 (1 standard drink = 0.6 oz pure alcoho l) Sex Assigned at Date Recorded Not on file COVID-19 Exposure Response Date Recorded In the last 10 days, have you been in contact with No / Unsu re 03/07/2022 10:20 AM CDT someone who was confirmed or suspected to have Coronavirus/COVID-19? documented as of this encounter Plan of Treatment Not on filedocumented as of this encounter Visit Diagnoses Not on filedocumented in this encounter Additional Health Concerns Assessment Noted Time PHQ-9 Depression Total Score: 2 01/26/2019 11:18 AM CD T documented as of this encounter Care Teams Sanitation Worker Cleaning Machinery Relationship Specialty Start Date End Date Justin Loya MD PCP - General Family Practice 02/19/11 [facility] [address] [place] [phone] Silas Santiago MD MD Pain Clinic 11/29/13 [facility] [address] [place], [place] [address] Caden Leone, Assigned Surgical Provider 07/20 01/08 [place] [address] documented as of this encounter
--- OUTSIDE RECORDS SUMMARY | 2022-06-23 17:40 | XMS_ITS | Encounter Summary ---
:1990 Author Organization [place] Address [address] [address] Care Team Providers Name Role Phone Justin Loya MD Primary Care Provider Silas Santiago MD Unavailable Caden Leone MD Unavailable [phone] Reason for Visit Reason Comments Rule Out Labor Encounter Details Date Type Department Care Team Description 03/01/2022 Hospital Encounter [facility]place MD Ramo [address] [facility] [address] [place] [address] [place], [place] [address] (Wo rk) Social History Tobacco Use Types Packs/Day Years Used Date Smoking Tobacco: Never Smokeless Tobacco: Never Alcohol Use Standard Drinks/Week Comments No 0 (1 standard drink = 0.6 oz pure alcoho l) Sex Assigned at Date Recorded Not on file COVID-19 Exposure Response Date Recorded In the last 10 days, have you been in contact with No / Unsu re 03/01/2022 7:59 PM CDT someone who was confirmed or suspected to have Coronavirus/COVID-19? documented as of this encounter Last Filed Vital Signs Vital Sign Reading Time Taken Comments Blood Pressure 115/64 03/01/2022 8:08 PM CDT Pulse 82 03/01/2022 8:08 PM CDT Temperature 37.2 ??C (99 ??F) 03/01/2022 8:08 PM CDT Respiratory Rate 18 03/01/2022 8:08 PM CDT Oxygen Saturation - - Inhaled Oxygen Concentration - - Weight 68 kg (150 lb) 03/01/2022 8:08 PM CDT stated Height 170.2 cm (5' 7) 03/01/2022 8:08 PM CDT Body Mass Index 23.49 03/01/2022 8:08 PM CDT documented in this encounter Discharge Instructions Discharge InstructionsYvonne Conroy RN - 03/01/2022 9:55 PM CDT Discharge Instruction for Undelivered Patients You were seen for: Contractions We Consulted: Dr. Caba You had (Test or Medicine): and uterine monitoring, wet prep and UA/UC Diet: As tolerated Drink 8 to 12 glasses of liquids (milk, juice, water) every day. You may eat meals and snacks. Activity: As tolerated kick counts. Call your provider if you notice: Swelling [...] underwear. Abdominal (lower belly) or stomach pain. *If less than 34 weeks: Contractions (tightening) more than 6 times in one hour. Increase or change in vaginal discharge (note the color and amount) Follow-up: Make an appointment to be seen on some time during the coming week AttachmentsThe following attachments cannot be sent through Care Everywhere.Kick Counts (Nigerian)documented in this encounter Medications at Time of Discharge Medication Sig Dispensed Refills Start Date End Date Vit-Fe Take 1 tablet by 0 Fumarate-FA ( mouth daily MULTIVITAMIN PLUS IRON) 27-1 MG TABSIndications: FEROSUL 325 (65 Fe) MG TAKE 1 TABLET BY 0 021 04/18/2022 tablet MOUTH TWICE DAILY WITH MEALS ferrous sulfate (FEROSUL) Take 325 mg by 0 202006/13/2022 325 (65 Fe) MG tablet mouth daily documented as of this encounter Miscellaneous Notes Plan of Care - Yvonne Conroy RN - 03/01/2022 10:29 PM CDT Discharge instructions reviewed. Encouraged fluids, rest, voiding regularly, no heavy lifting, and the use of a maternity belt. Discussed pt and S.O. concerns and questions answered. Pt and S.O. comfortable discharging home at this time. Encouraged pt to contact provider or come to MAC if has any concerns. Pt discharged home undelivered ambulatory with S.O. Provider Notification - Yvonne Conroy RN - 03/01/2022 9:51 PM CDT 03/01/222150 Provider Notification Provider Name/Title Dr. Caba Method of Notification Phone Request Evaluate - Remote Notification Reason Status Update;Lab/Diagnostic Study Dr. Caba updated on pt status. Reviewed pt history of delivery at 36 weeks and irritable uterus at 30 weeks with 1st baby. Nurse able to feel an occ mild contraction, but not regular at this time. Pt would prefer to not have a SVE, d/t anxiety related to previous . Orders given to discharge home. To follow up in the office this week. Encouraged fluids, rest, voiding regularly, no heavy lifting, and the use of a maternity belt. Plan of Care - Catherine Acevedo RN - 03/01/2022 9:40 PM CDT Patient arrived to maternal assessment center ambulatory, with significant other, Benjie. Patient reports reason for visit is lower uterine cramping and tightening. Patient to bathroom to void then to MAC room 1 to change into gown. Patient receives care with Dr. Ramsay - history is per patient and care everywhere chart review. G 2 P 1 24 weeks 6 days gestation record reviewed. Verbal consent for EFM. EFM applied for well being with baseline of 135bpm accels noted and no decelerations. Uterine assessment completed, and non-tender. Pt reports lower uterine cramping and back pain. Uterine irritability noted per TOCO. Unable to palpate ctx, which pt is reporting. Patient reports movement is present. Patient denies vaginal discharge, pelvic pressure, GI problems, bloody show, vaginal bleeding, edema, headache, visual disturbances, epigastric or URQ pain, and/or rupture of membranes. Triage/Arrival assessment completed. Dr Caba in unit. Update given. Plans to collect Wet Prep and send UA with micro to lab. Wet Prep and UA collected and sent to lab at 2049. 2100 Report given to Yvonne CARLSON to assume care. documented in this encounter Plan of Treatment Not on filedocumented as of this encounter Procedures Procedure Name Priority Date/Time Associated Comments Diagnosis WET PREPARATION STAT 03/01/2022 8:56 PM Result s for this CDT procedure are i n the results section. ROUTINE UA WITH Routine 03/01/2022 8:50 PM Result s for this MICROSCOPIC REFLEX TO CDT proced ure are in CULTURE the results section. URINE CULTURE Routine 03/01/2022 8:50 PM Results for this CDT procedure are i n the results section. documented in this encounter Results (ABNORMAL) Wet preparation (03/01/2022 8:56 PM CDT) Analysis Performed At Patho logist Time Signature Trichomonas Absent Absent [facility] 03/01/2022 LABORATORY 9:23 PM CDT Yeast Absent Absent [facility] 03/01/2022 LABORATORY 9:23 PM CDT Clue Cells Absent Absent [facility] 03/01/2022 LABORATORY 9:23 PM CDT WBCs/high power 1+ (A) None [facility] 03/01/2022 LABORATORY field 9:23 PM CDT Specimen Anatomical Collection Method Collection Time Receive d Time (Source) Location / / Volume Laterality Swab VAGINAL STRUCTURE Non-blood 03/01/2022 8:56 PM 02/17 9:01 / Unknown Collection / CDT PM CDT Unknown Tamie Caba MD LAB - MICRO GENERAL ORDERABL ES Performing Organization Address City/State/ZIP Code [place] [address] Care Lab [address] 1st floor, Room 20B Urine Culture (03/01/2022 8:50 PM CDT) [facility] Method Time Signature Culture <10,000 CFU/mL CAR[facility] 03/03/2022 UU IDD Mixture of 4:52 AM CDT LABORATORY urogenital estephania Specimen Anatomical Collection Method Collection Time Receive d Time (Source) Location / / Volume Laterality Urine URINE SPECIMEN Non-blood 03/01/2022 8:50 PM 022 9:35 OBTAINED BY CLEAN Collection / CDT PM CDT CATCH PROCEDURE / Unknown Unknown Tamie Caba MD LAB - MICRO GENERAL ORDERABL ES Performing Organization Address City/State/ZIP Code Phon e Number UU IDD LABORATORY [facility] [place] [address] Diag. Lab [address] [facility], [address] (ABNORMAL) UA with Microscopic reflex to Culture (03/01/2022 8:50 PM CDT) [facility] Method Time Signature Color Urine Straw Colorless, 03/01/2022 LABORATORY Straw, 9:35 PM CDT Light Yellow, Yellow Appearance Urine Clear Clear 03/01/2022 LABORATOR Y 9:35 PM CDT Glucose Urine Negative Negative 03/01/2022 LABORATORY mg/dL 9:35 PM CDT Bilirubin Urine Negative Negative 03/01/2022 LABORATORY 9:35 PM CDT Ketones Urine Negative Negative 03/01/2022 LABORATORY mg/dL 9:35 PM CDT Specific [place] 1.006 1.003 - 03/01/2022 LABORATOR Y Urine 1.035 9:35 PM CDT Blood Urine Negative Negative 03/01/2022 LABORATORY 9:35 PM CDT pH Urine 6.0 5.0 - 7.0 03/01/2022 LABORATORY 9:35 PM CDT Protein Albumin Negative Negative 03/01/2022 LABORATORY Urine mg/dL 9:35 PM CDT Urobilinogen Normal Normal, 2.0 03/01/2022 LABORATORY Urine mg/dL 9:35 PM CDT Nitrite Urine Negative Negative 03/01/2022 LABORATORY 9:35 PM CDT Leukocyte Moderate Negative 03/01/2022 LABORATORY Esterase Urine (A) 9:35 PM CDT RBC Urine 1 <=2 /HPF 03/01/2022 LABORATORY 9:35 PM CDT WBC Urine 13 (H) <=5 /HPF 03/01/2022 LABORATORY 9:35 PM CDT Squamous 3 (H) <=1 /HPF 03/01/2022 LABORATORY Epithelials 9:35 PM CDT Urine Specimen Anatomical Collection Method Collection Time Receive d Time (Source) Location / / Volume Laterality Urine URINE SPECIMEN Non-blood 03/01/2022 8:50 PM 022 9:01 OBTAINED BY CLEAN Collection / CDT PM CDT CATCH PROCEDURE / Unknown Unknown Narrative LABORATORY - 03/01/2022 9:35 PM CDT Urine Culture ordered based on laborator y criteria Tamie Caba MD LAB - URINE ORDERABLES Performing Organization Address City/State/ZIP Code [place] [address] [facility] Lab [address] 1[address] floor, Room 20B documented in this encounter Visit Diagnoses Diagnosis Encounter for triage in patient documented in this encounter Admitting Diagnoses Diagnosis Encounter for triage in patient documented in this encounter Administered Medications Inactive Administered Medications - up to 3 most recent administrations Medication Order MAR Action Action Date Dose Rate Site lidocaine (LMX4) cream Topical, EVERY 1 HOUR PRN, pain, with VAD insertion, S tarting on 03/01/22 at 2025, Apply at least 30 minutes prior to [...] mild pain with VAD insertion, Starting on 03/01/22 at 2025, MAX dose 1 mL subcutane ous OR [...] Intracatheter, EVERY 8 HOURS, First dose on 03/01/22 at 2030, to lock peripheral IV dormant line, OB Preadmission sodium chloride (PF) 0.9% PF flush 3 mL 3 mL, Intracatheter, EVERY 1 MIN PRN, li ne flush, other, to ensure patency or to lock dormant line, Starting on 03/01/22 at 2025, OB Preadmission documented in this encounter Active and Recently Administered Medications Times are shown in CDT. Scheduled Medication Order 02/27/2022 02/28/2022 03/01/2022 sodium chloride (PF) 0.9% PF flush 3 mL 2029 (Canceled Entry - Provider: Orders Generic Provider - Comment: Automatically canceled at discontinue of medication order) 3 mL, Intracatheter, EVERY 8 HOURS, Firs t dose on 03/01/22 at 2029, to lock peripheral IV dormant line, OB Preadmission PRN Medication Order 02/27/2022 02/28/2022 03/01/2022 lidocaine (LMX4) cream Topical, EVERY 1 HOUR PRN, pain, with VA D insertion, Starting on 03/01/22 at 2025, Apply at least 30 minutes prior to [...] mild pain with VAD insertion, Starting on 03/01/22 at 2025, MAX dose 1 mL subcutaneous OR intradermal [...] or to lock dormant line, Starting on 03/01/22 at 2025, OB Preadmission documented in this encounter Additional Health Concerns Assessment Noted Time PHQ-9 Depression Total Score: 2 01/26/2019 11:18 AM CD T documented as of this encounter Care Teams Weights And Measures Inspector Relationship Specialty Start Date End Date Justin Loya MD PCP - General Family Practice 02/19/11 [facility] [address] [place] [address] Silas Santiago MD MD Pain Clinic 11/29/13 [facility] [address] [place], [place] [address] Caden Leone, Assigned Surgical Provider 07/20 01/08 MD Mike [address] [place], [place] [id number] documented as of this encounter
--- OUTSIDE RECORDS SUMMARY | 2022-06-23 17:40 | XMS_ITS | Encounter Summary ---
:1990 Author Organization [place] Address [facility] [place] [address] Care Team Providers Name Role Phone Justin Loya MD Primary Care Provider Silas Santiago MD Unavailable Caden Leone MD Unavailable [phone] Encounter Details Date Type Department Care Team Description 03/16/2022 Travel Social History Tobacco Use Types Packs/Day Years Used Date Smoking Tobacco: Never Smokeless Tobacco: Never Alcohol Use Standard Drinks/Week Comments No 0 (1 standard drink = 0.6 oz pure alcoho l) Sex Assigned at Date Recorded Not on file COVID-19 Exposure Response Date Recorded In the last 10 days, have you been in contact with No / Unsu re 03/16/2022 5:04 PM CDT someone who was confirmed or suspected to have Coronavirus/COVID-19? documented as of this encounter Plan of Treatment Not on filedocumented as of this encounter Visit Diagnoses Not on filedocumented in this encounter Additional Health Concerns Assessment Noted Time PHQ-9 Depression Total Score: 2 01/26/2019 11:18 AM CD T documented as of this encounter Care Teams Flue Dust Laborer Relationship Specialty Start Date End Date Justin Loya MD PCP - General Family Practice 02/19/11 [facility] [address] [place] [phone] Silas Santiago MD MD Pain Clinic 11/29/13 [facility] [address] [place], [place] [address] Caden Leone, Assigned Surgical Provider 07/20 01/08 [place] [address] documented as of this encounter
--- OUTSIDE RECORDS SUMMARY | 2022-06-23 17:40 | XMS_ITS | Encounter Summary ---
:1990 Author Organization [place] Address [address] [place] [address] Care Team Providers Name Role Phone Justin Loya MD Primary Care Provider Silas Santiago MD Unavailable Caden Leone MD Unavailable [phone] Reason for Visit Reason Comments Rule out rupture of membranes Encounter Details Date Type Department Care Team Description 03/04/2022 Hospital [facility] Birth[facility] MD Marga [address] [place] [address] [place] [phone] (Wo rk) Social History Tobacco Use Types Packs/Day Years Used Date Smoking Tobacco: Never Smokeless Tobacco: Never Alcohol Use Standard Drinks/Week Comments No 0 (1 standard drink = 0.6 oz pure alcoho l) Sex Assigned at Date Recorded Not on file COVID-19 Exposure Response Date Recorded In the last 10 days, have you been in contact with No / Unsu re 03/04/2022 4:15 PM CDT someone who was confirmed or suspected to have Coronavirus/COVID-19? documented as of this encounter Last Filed Vital Signs Vital Sign Reading Time Taken Comments Blood Pressure 111/71 03/04/2022 3:45 PM CDT Pulse - - Temperature 37.1 ??C (98.8 ??F) 03/04/2022 3:45 PM CDT Respiratory Rate 16 03/04/2022 3:45 PM CDT Oxygen Saturation - - Inhaled Oxygen Concentration - - Weight - - Height - - Body Mass Index - - documented in this encounter Discharge Instructions Discharge InstructionsEvelyn Martinez RN - 03/04/2022 4:46 PM CDT Discharge Instruction for Undelivered Patients You were seen for: Membrane Assessment We Consulted: Dr Flowers You had (Test or Medicine):ROM plus and monitoring Diet: Drink 8 to 12 glasses of liquids (milk, juice, water) every day. You may eat meals and snacks. Activity: Call your doctor or nurse recreation programmer if your baby is moving less than [...] Other: Follow-up: As scheduled in the clinic documented [...] encounter Miscellaneous Notes Plan of Care - Evelyn Martinez RN - 03/04/2022 3:50 PM CDT Destiney arrives in the MAC after she noticed a small wet spot about the size of a quarter on her underwear and is worried her water may have broken.She also has noticed some uterine cramping. Monitors applied with consent. Currently [address] Flowers was paged. Will get ROM plus. 1640- ROM plus negative. Dr Flowers was called again and given these results. [facility] Discharge instructions were reviewed at length with Destiney and her . Both verbalized understanding and will call with any further problems. documented in this encounter Plan of Treatment Not on filedocumented as of this encounter Procedures Procedure Name Priority Date/Time Associated Diagnosis Comme nts RUPTURE OF STAT 03/04/2022 4:07 PM Resul ts for this MEMBRANES BY ROM CDT procedure a re in PLUS the results section. documented in this encounter Results Rupture of Membranes by ROM Plus (03/04/2022 4:07 PM CDT) [facility] Method Time Signature Rupture of Negative Negative, [facility] 03/04/2022 LABORATORY Invalid, 4:38 PM CDT Membranes by Suggest ROM Plus Repeat Specimen Anatomical Collection Method Collection Time Receive d Time (Source) Location / / Volume Laterality Swab VAGINAL STRUCTURE Non-blood 03/04/2022 4:07 PM 02/17 4:15 / Unknown Collection / CDT PM CDT Unknown Narrative LABORATORY - 03/04/2022 4:38 PM CDT It is recommended that the tests to dete ct rupture of the amniotic membranes should not be used without other clinical asses sments to make clinical patient management decision. Tresa Flowers MD LAB - BODY FLUIDS ORDERABLES Performing Organization Address City/State/ZIP Code Phon e Number SH LABORATORY [facility] [place] [address] Care Lab [address] floor, Room 20B documented in this [...] documented as of this encounter Care Teams Building Code Inspector Relationship Specialty Start Date End Date Justin Loya MD PCP - General Family Practice 02/19/11 [facility] [address] [place] [address] Silas Santiago MD MD Pain Clinic 11/29/13 [facility] [address] [place], [place] [address] Caden Leone, Assigned Surgical Provider 07/20 01/08 MD Mike BHAKTA [place], [place] [address] documented as of this encounter
--- OUTSIDE RECORDS SUMMARY | 2022-06-23 17:40 | XMS_ITS | Encounter Summary ---
:1990 Author Organization [place] Address [address] [place] [address] Care Team Providers Name Role Phone Justin Loya MD Primary Care Provider Silas Santiago MD Unavailable Caden Leone MD Unavailable [phone] Reason for Referral Consultation (Routine: Next available opening) - Pending Review Specialty Diagnoses / Procedures Referred By Contact Refer red To Contact Diagnoses Encounter for preconception consultation Kimberly Ramsay MD [address] [place] [address] [place] [address] Referral ID Status Reason Start Date Expiration Date Visits V isits Requested Authorized [id number] Pending 08/19/2021 08/19/2022 1 1 Review onsultation (Routine: Next available opening) - Pending Review Specialty Diagnoses / Procedures Referred By Contact Refer red To Contact Diagnoses Encounter for preconception consultation Kimberly Ramsay MD [address] [place] [address] [place] [address] Referral ID Status Reason Start Date Expiration Date Visits V isits Requested Authorized [id number] Pending 08/19/2021 08/19/2022 1 1 Review NCIAL SPECIALIST Encounter Details Date Type Department Care Team Description 08/19/2021 Transcribe Orders [facility] Kimberly Ramsay for Maternal MMD preconception Medicine Center [address]ati on (Primary [place] [address]x) [address] [place], [place] [address] [address] [place], [place] [phone] [address] (Work) [phone] Social History Tobacco Use Types Packs/Day Years Used Date Smoking Tobacco: Never Smokeless Tobacco: Never Alcohol Use Standard Drinks/Week Comments No 0 (1 standard drink = 0.6 oz pure alcoho l) Sex Assigned at Date Recorded Not on file COVID-19 Exposure Response Date Recorded In the last month, have you been in contact with No / Unsure 08/03/2021 7:49 AM FINANCIAL SPECIALIST someone who was confirmed or suspected to have Coronavirus / COVID-19? documented as of this encounter Plan of Treatment Scheduled Referrals Name Type Priority Associated Diagnoses Order S chedule Mat Med CTR Referral Routine: Next Encounter for Expected : Referral - available opening preconception Preconception consultation (Approximate), Expires: 02/15/2022 [facility] Office Visit Referral Routine: Next Encounter for Weekly fo r 1 available opening preconception Occurrenc es consultation starting 08/19/2021 unti l 08/19/2022 documented as of this encounter Visit Diagnoses Diagnosis Encounter for preconception consultation - Primary documented in this encounter Additional Health Concerns Assessment Noted Time PHQ-9 Depression Total Score: 2 01/26/2019 11:18 AM CD T documented as of this encounter Care Teams Freight Brake Operator Relationship Specialty Start Date End Date Justin Loya MD PCP - General Family Practice 02/19/11 [facility] [address] [place] [phone] Silas Santiago MD MD Pain Clinic 11/29/13 [facility] [address] AT [facility], [place] [address] Caden Leone, Assigned Surgical Provider 07/20 01/08 MD Mike [address] [place], [place] [address] documented as of this encounter
--- OUTSIDE RECORDS SUMMARY | 2022-06-23 17:40 | XMS_ITS | Encounter Summary ---
:1990 Author Organization [place] Address [address] [facility] [place] [address] Care Team Providers Name Role Phone Justin Loya MD Primary Care Provider Silas Santiago MD Unavailable Caden Leone MD Unavailable Encounter Details Date Type Department Care Team Description 03/26/2022 Medical Correspondence M [facility] Srv cs Non-Provider [address] [place] [address] Social History Tobacco Use Types Packs/Day [...] documented as of this encounter Care Teams Stock Selector Relationship Specialty Start Date End Date Justin Loya MD PCP - General Family Practice 02/19/11 [facility] [address] [place] [phone] Silas Santiago MD MD Pain Clinic 11/29/13 [facility] [address] [place] [address] Caden Leone, Assigned Surgical Provider 07/20 01/08 [place] [address] documented as of this encounter
--- OUTSIDE RECORDS SUMMARY | 2022-06-23 17:40 | XMS_ITS | Encounter Summary ---
:1990 Author Organization [place] Address [address] [facility] [place] [address] Care Team Providers Name Role Phone Justin Loya MD Primary Care Provider Silas Santiago MD Unavailable Caden Leone MD Unavailable [phone] Reason for Referral Consultation (Routine: Next available opening) - Pending Review Specialty Diagnoses / Procedures Referred By Contact Refer red To Contact Diagnoses related condition, antepartum Maris Emery MD [address] [place] [address] Referral ID Status Reason Start Date Expiration Date Visits V isits Requested Authorized [id number] Pending 10/04/2021 10/04/2022 1 1 Review Encounter Details Date Type Department Care Team Description 10/04/2021 Transcribe Orders [facility] Maris Emery Pre gnancy related Maternal MD Juliano condition, Medicine Center [address] antepartum (Primary [place] [address]x) [address] [place] [address] [address] [address] [place], [place] (Work) [phone] Social History Tobacco Use Types Packs/Day Years Used Date Smoking Tobacco: Never Smokeless Tobacco: Never Alcohol Use Standard Drinks/Week Comments No 0 (1 standard drink = 0.6 oz pure alcoho l) Sex Assigned at Date Recorded Not on file COVID-19 Exposure Response Date Recorded In the last month, have you been in contact with No / Unsure 10/01/2021 2:24 PM CDT someone who was confirmed or suspected to have Coronavirus / COVID-19? documented as of this encounter Plan of Treatment Scheduled Referrals Name Type Priority Associated Diagnoses Order S chedule Mat Med Ctr Referral Routine: Next related Expe cted: Referral - available opening condition, 10/04/2021 antepartum (Approximate), Expires: 04/02/2022 documented as of this encounter Visit Diagnoses Diagnosis related condition, antepartum - Primary documented in this encounter Additional Health Concerns Assessment Noted Time PHQ-9 Depression Total Score: 2 01/26/2019 11:18 AM CD T documented as of this encounter Care Teams Applications Architect Relationship Specialty Start Date End Date Justin Loya MD PCP - General Family Practice 02/19/11 [facility] [address] [place] [phone] Silas Santiago MD MD Pain Clinic 11/29/13 [facility] [address] [place] [address] Caden Leone, Assigned Surgical Provider 07/20 01/08 [place] [address] documented as of this encounter
--- OUTSIDE RECORDS SUMMARY | 2022-06-23 17:40 | XMS_ITS | Encounter Summary ---
:1990 Author Organization [place] Address [address] [facility] [place] [address] Care Team Providers Name Role Phone Justin Loya MD Primary Care Provider Silas Santiago MD Unavailable Caden Leone MD Unavailable [phone] Reason for Referral Diagnostic Imaging Ultrasound (Routine) - Pending Review Specialty Diagnoses / Procedures Referred By Contact Refer red To Contact Diagnoses related condition, antepartum Brooklyn Vee MD Procedures Maternal Nuchal Translucency [address] [place], [place] [address] Referral ID Status Reason Start Date Expiration Date Visits V isits Requested Authorized [id number] Pending 10/09/2021 10/09/2022 1 1 Review Reason for Visit Diagnostic Imaging Ultrasound (Routine) - Pending Review Specialty Diagnoses / Procedures Referred By Contact Refer red To Contact Diagnoses related condition, antepartum Brooklyn Vee MD Procedures Maternal Nuchal Translucency [address] [place], [place] [address] Referral ID Status Reason Start Date Expiration Date Visits V isits Requested Authorized [id number] Pending 10/09/2021 10/09/2022 1 1 Review Encounter Details Date Type Department Care Team Description 11/28/2021 Hospital Encounter [facility] NickijaynePaty danny Girard MD [address] [place] [address] related Maternal Liam hudson MD [address] [place] [address] condition, Medicine Center antepartum [place] [address] [place] [address] Social History Tobacco Use Types Packs/Day Years Used Date Smoking Tobacco: Never Smokeless Tobacco: Never Alcohol Use Standard Drinks/Week Comments No 0 (1 standard drink = 0.6 oz pure alcoho l) Sex Assigned at Date Recorded Not on file COVID-19 Exposure Response Date Recorded In the last 10 days, have you been in contact with No / Unsu re 11/28/2021 10:50 AM CDT someone who was confirmed or suspected to have Coronavirus/COVID-19? documented as of this encounter Medications at Time of Discharge Medication Sig Dispensed Refills Start Date End Date FEROSUL 325 (65 Fe) MG TAKE 1 TABLET BY 0 021 04/18/2022 tablet MOUTH TWICE DAILY WITH MEALS ferrous sulfate (FEROSUL) Take 325 mg by mouth 0 02/14/2021 06/13/2022 325 (65 Fe) MG tablet daily documented as of this encounter Plan of Treatment Not on filedocumented as of this encounter Procedures Procedure Name Priority Date/Time Associated Comments Diagnosis MFM NUCHAL Routine 11/28/2021 1:13 PM related Resu lts for this TRANSLUCENCY CDT condition, procedure are i n antepartum the results section. documented in this encounter Results Maternal Nuchal Translucency (11/28/2021 1:13 PM CDT) Anatomical Region Laterality Modality Ultrasound Specimen (Source) Anatomical Collection Method Collection Time Re ceived Time Location / / Volume Laterality 11/28/2021 10:53 AM CDT Impressions 11/28/2021 12:36 PM CDT IMPRESSION Sonographic biometry agrees with gestati onal age predicted by LMP. The nuchal translucency measurement is within the normal range. The nasal bone is present. Narrative 11/28/2021 12:36 PM CDT NT Pat. Name: DESTINEY HUFF Study Date: 0 11/28/2021 10:53am Pat. NO: [id number] Referring ??MD: FANNY BRADSHAW Site: [facility] Passenger Relations Representative: Arie Haynes RDMS : 1990 Age: 30 INDICATION 1st Trimester Screening METHOD Transabdominal ultrasound examination. V iew: Sufficient Valles . Number of fetuses: 1 DATING ? Date ?Details ?Gest. age ?ANDRE LMP ?09/08/2021 ? 11 w + 4 d ? 06/15/2022 Prior assessment ? 4/ ? GA: 7 w + 3 d ?11 w + 4 d ? 06/15/2022 U/S ? 11/28/2021 ? based upon [facility] ?12 w + 2 d ? 06/10/2022 Assigned dating ?Dating performed on 11/28/2021, based on the LMP ?11 w + 4 d ?06/15/2022 GENERAL EVALUATION Cardiac activity present. Placenta anterior. Cord vessels normal insertion. Amniotic fluid normal amount. BIOMETRY FHR ?162 ? bpm CRL ? 57.4 ? mm ? 12w 2d ? Hadlock NT ? 1.25 ? mm ANATOMY Face: Nasal bone present Neck: Normal Nuchal Translucency The following structures appear normal: Cranium. Abdominal wall. Stomach. Hazel Willis. MATERNAL STRUCTURES Uterus ? Visualized ? Position: retroverted Cervix ?Visualized ? Appearance: Appears Closed Right Ovary ?Not visualized Left Ovary ?Not visualized RECOMMENDATION We discussed the findings on today's ult rasound with the patient. See consultation letter for further coun seling. Return to primary provider for continued care. Thank-you for the opportunity to partici stack in the care of this patient. If you have questions regarding today's evaluation or if we can be of further service, please contact the [facility]. anomalies may be present but not detected Procedure Note Liam Thomas MD - 11/28/2021Forma tting of this note might be different from the original. NT Pat. Name:LINA HUFFHStudy Date:11/17 10:53am Pat. NO: [id number] MD:MERCEDES BRADSHAW [facility] :1990Age:30 INDICATION 1st Trimester Screening METHOD Transabdominal ultrasound examination. V iew: Sufficient Valles . Number of fetuses: 1 DATING Date Details Gest. age ANDRE LMP 09/08/2021 11 w + 4 d 06/15/2022 Prior assessment 10/30/2021 GA: 7 w + 3 d 11 w + 4 d 06/15/2022 U/S 11/28/2021 based upon CRL 12 w + 2 d 06/10/2022 Assigned dating Dating performed on 11/17, based on the LMP 11 w + 4 d 06/15/2022 GENERAL EVALUATION Cardiac activity present. Placenta anterior. Cord vessels normal insertion. Amniotic fluid normal amount. BIOMETRY FHR 162 bpm CRL 57.4 mm 12w 2d Hadlock NT 1.25 mm ANATOMY Face: Nasal bone present Neck: Normal Nuchal Translucency The following structures appear normal: Cranium. Abdominal wall. Stomach. Bladde r. Arms. Legs. MATERNAL STRUCTURES Uterus Visualized Position: retroverted Cervix Visualized Appearance: Appears Closed Right Ovary Not visualized Left Ovary Not visualized RECOMMENDATION We discussed the findings on today's uljennifer rasjanine with the patient. See consultation letter for further coun seling. Return to primary provider for continued care. Thank-you for the opportunity to partici stack in the care of this patient. If you have questions regarding today's evaluation or if we can be of further service, please contact the [facility]. anomalies may be present but not detected IMPRESSION Sonographic biometry agrees with gestati onal age predicted by LMP. The nuchal translucency measurement is within the normal range. The nasal bone is present. Brooklny Vee [facility] documented in this encounter Visit Diagnoses Diagnosis related condition, antepartum documented in this encounter Additional Health Concerns Assessment Noted Time PHQ-9 Depression Total Score: 2 01/26/2019 11:18 AM CD T documented as of this encounter Care Teams Maintenance Technician 3Rd Shift Relationship Specialty Start Date End Date Justin Loya MD PCP - General Family Practice 02/19/11 [facility] [address] [place] [phone] Silas Santiago MD MD Pain Clinic 11/29/13 [facility] [address] [place], [place] [address] Caden Leone, Assigned Surgical Provider 07/20 01/08 MD [address] [place], [place] [address] documented as of this encounter
--- OUTSIDE RECORDS SUMMARY | 2022-06-23 17:40 | XMS_ITS | Encounter Summary ---
:1990 Author Organization [place] Address [address] [facility] [address] Care Team Providers Name Role Phone Justin Loya MD Primary Care Provider Silas Santiago MD Unavailable Caden Leone MD Unavailable [phone] Encounter Details Date Type Department Care Team Description 10/04/2021 Medical Correspondence [facility] Scan, MATERNAL Health Info Mgmt [facility] [address] [place] [address] Social History Tobacco Use Types [...] documented as of this encounter Care Teams Corporate Wellness Coordinator Relationship Specialty Start Date End Date Justin Loya MD PCP - General Family Practice 02/19/11 [facility] [address] [place] [phone] Silas Santiago MD MD Pain Clinic 11/29/13 [facility] [address] [place] [address] Caden Leone, Assigned Surgical Provider 07/20 01/08 [place] [address] documented as of this encounter
--- OUTSIDE RECORDS SUMMARY | 2022-06-23 17:40 | XMS_ITS | Encounter Summary ---
:1990 Author Organization [place] Address [facility] [place] [address] Care Team Providers Name Role Phone Justin Loya MD Primary Care Provider Silas Santiago MD Unavailable Caden Leone MD Unavailable [phone] Encounter Details Date Type Department Care Team Description 11/28/2021 Travel Social History Tobacco Use Types Packs/Day [...] documented as of this encounter Care Teams Oim Architect Relationship Specialty Start Date End Date Justin Loya MD PCP - General Family Practice 02/19/11 [facility] [address] [place] [phone] Silas Santiago MD MD Pain Clinic 11/29/13 [facility] [address] [place], [place] [address] Caden Leone, Assigned Surgical Provider 07/20 01/08 [place] [address] documented as of this encounter
--- OUTSIDE RECORDS SUMMARY | 2022-06-23 17:40 | XMS_ITS | Encounter Summary ---
:1990 Author Organization [place] Address [address] [facility] [place] [address] Care Team Providers Name Role Phone Justin Loya MD Primary Care Provider Silas Santiago MD Unavailable Caden Leone MD Unavailable [phone] Encounter Details Date Type Department Care Team Description 11/13/2021 Anesthesia Event [facility] Justin Reyes Anesthesia MD [place] [address] [place] [address] [address] [place] [address] (Wo rk) Anesthesia Record Procedure Summary Procedure Name Responsible Anesthesia Start Anesthesia Stop Time Anesthesiologist Time PAC ANESTH CONSULT Events No events on file. No medications on file. Agents No agents on file. Blood No blood administrations on file. Lines, Drains, and Airways No LDAs on file. documented in this encounter Social History Tobacco Use Types Packs/Day Years Used Date Smoking Tobacco: Never Smokeless Tobacco: Never Alcohol Use Standard Drinks/Week Comments No 0 (1 standard drink = 0.6 oz pure alcoho l) Sex Assigned at Date Recorded Not on file documented as of this encounter OR Notes Anesthesia Preprocedure Evaluation - Justin Reyes MD - 11/22/2021 7:49 PM CDT Anesthesia Pre-Procedure Evaluation Patient: Destiney Cassidy : 1990 Procedure : Past Medical History: Diagnosis Date ??? Anxiety ??? Graves disease ??? Insomnia ??? POTS (postural orthostatic tachycardia syndrome) ??? Thrombosis of left jugular vein ??? Trigeminal neuralgia Past Surgical History: Procedure Laterality Date ??? DECOMPRESSION LUMBAR MINIMALLY INVASIVE ONE LEVEL [...] History Tobacco Use ??? Smoking status: Never Smoker ??? Smokeless tobacco: Never Used Substance Use Topics ??? Alcohol use: No Wt Readings from Last 1 Encounters: 08/01/21 63 kg (139 lb) OUTSIDE LABS: CBC: Lab Results Component Value Date WBC 5.3 08/03/2021 WBC 7.2 01/30/2021 HGB 14.6 08/03/2021 HGB 12.4 01/30/2021 HCT 44.8 08/03/2021 HCT 40.0 01/30/2021 PLT 269 08/03/2021 PLT 272 01/30/2021 BMP: Lab Results Component Value Date NA 139 08/03/2021 NA 138 01/30/2021 POTASSIUM 3.8 08/03/2021 POTASSIUM 4.0 01/30/2021 CHLORIDE 106 08/03/2021 CHLORIDE 107 01/30/2021 CO2 28 08/03/2021 CO2 29 01/30/2021 BUN 10 08/03/2021 BUN 13 01/30/2021 CR 0.67 08/03/2021 CR 0.72 01/30/2021 GLC 90 08/03/2021 GLC 101 (H) 01/30/2021 COAGS: Lab Results Component Value Date PTT 46 (H) 04/05/2017 INR 1.85 (H) 04/05/2017 POC: Lab Results Component Value Date HCG Negative 08/03/2021 HCGS Negative 08/03/2021 HEPATIC: Lab Results Component Value Date ALBUMIN 3.7 08/03/2021 PROTTOTAL 7.5 08/03/2021 ALT 19 08/03/2021 AST 12 08/03/2021 ALKPHOS 57 08/03/2021 BILITOTAL 1.2 08/03/2021 OTHER: Lab Results Component Value Date LACT 0.8 08/03/2017 JOSETTE 9.3 08/03/2021 MAG 2.1 08/18/2017 LIPASE 105 08/03/2021 TSH 2.50 01/30/2021 CRP <2.9 03/29/2017 SED 4 08/03/2017 PAC Discussion and Assessment ASA Classification: 2 Anesthetic techniques and relevant risks discussed: Regional and GA with regional block for post-op pain control Attending Anesthesiologist Anesthesia Assessment: I spoke with Destiney Cassidy via telephone twice about her upcoming repeat this fall. Her PMH includes anxiety, asthma, POTS, DVT of L jugular in 2016 (will likely only be on ASA during ), and graves disease, L5/S1 laminotomy in 2010 with residual symptoms. She has a history of one previous at 36 weeks done on 08/25/2020 under GA and with TAP blocks for post-op pain control. She is most interested in having the same type of anesthesia during this . She has a complex medical history - starting in 2010 when she hadan L5/S1 laminotomy done. Before and after the surgery she also underwent a few epidural steroid injections. After the surgery, she developed redness and burning in her feet. Arachnoiditis was in her differential at one point, though imaging did not support this. 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 She does still occasionally has symptoms of redness and burning in the soles of her feet. 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 One MRI made mention of arnold-chiari malformation though subsequent imaging made no mention of this. I discussed anesthetic options and risks with Destiney, including spinal, epidural, general anesthesiaand TAP blocks. She is most interested in undergoing general anesthesia with TAP blocks again for fear of further exacerbating her neuropathy and erythromelalgia. She asked many questions about all theoptions and we discussed that all of the options have different inherent risks that must be balanced. Ultimately, it will be decided with her and the anesthesiologist taking care of her at the time of surgery. Justin Reyes MD documented in this encounter Plan of Treatment Not on filedocumented as of this encounter Visit Diagnoses Not on filedocumented in this encounter Additional Health Concerns Assessment Noted Time PHQ-9 Depression Total Score: 2 01/26/2019 11:18 AM CD T documented as of this encounter Care Teams Inseminator Relationship Specialty Start Date End Date Justin Loya MD PCP - General Family Practice 02/19/11 [facility] [address] [place] [address] Silas Santiago MD MD Pain Clinic 11/29/13 [facility] [address] [place], [place] [phone] Caden Leone, Assigned Surgical Provider 07/20 01/08 MD [address] [place], [place] [id number] documented as of this encounter
--- OUTSIDE RECORDS SUMMARY | 2022-06-23 17:40 | XMS_ITS | Encounter Summary ---
:1990 Author Organization [place] Address [address] [facility] [place] [address] Care Team Providers Name Role Phone Justin Loya MD Primary Care Provider Silas Santiago MD Unavailable Caden Leone MD Unavailable [phone] Reason for Visit Reason Comments Labor Encounter Details Date Type Department Care Team Description 03/16/[address] [facility] Belkis Messina [facility] Birthplace [address] [facility] [address] [place] [address] [place], [place] [phone] (Wo rk) Social History Tobacco Use Types [...] have Coronavirus/COVID-19? documented as of this encounter Discharge Instructions Discharge InstructionsAmundson, Sydni L, RN - 03/16/2022 7:10 PM CDT Discharge Instruction for Undelivered Patients You were seen for: Labor Assessment We Consulted: Siddharth You had (Test or Medicine):Monitoring FFN VS Diet: Drink 8 to 12 glasses of liquids (milk, juice, water) every day. You may eat meals and snacks. Activity: Call your doctor or nurse spa coordinator if your baby is moving less than [...] (note the color and amount) Other: Follow-up: Make an appointment to be seen on This coming week documented in this encounter Medications at Time [...] encounter Miscellaneous Notes Plan of Care - Sydni Meyers RN - 03/16/2022 6:[address] Messina updated on Neg FFN Follow up at clinic this week. Discharged with verbal and written instructions. Plan of Care - Sydni Meyers RN - 03/16/2022 6:09 PM CDT Pt consented to spec exam for FFN. I used sm spec and explained clearly. Pt was hesitant but assuredme this is what she wanted. FFN collected and sent to lab. Plan of Care - Sydni Meyers RN - 03/16/2022 5:00 PM CDT I went in to explain procedure for blind swab and pt wishes to have that done at clinic by MD. I called Siddharth back. Their clinic does carry FFN. Pt is deciding if she wants this done. Plan of Care - Sydni Meyers RN - 03/16/2022 4:46 PM CDT Pt presents to MAC with jyotsna/tightening 5 times an hour for two hours earlier today. Seems that they have tapered off. Consent given for and uterine monitoring and vss. FFN and SVE were ordered by Pt does not consent to these. Would prefer and MD check cervix. Does not want a FFN as speculum exams are uncomfortable. I relayedthis information to Dr. Messina and she wants me to do a blind swab for an FFN. Pt to wait for test to come back. documented in this encounter Plan of Treatment Not on filedocumented as of this encounter Procedures Procedure Name Priority Date/Time Associated Diagnosis Comme nts FIBRONECTIN STAT 03/16/2022 5:52 PM Resu lts for this CDT procedure are i n the results section. documented in this encounter Results fibronectin (03/16/2022 5:52 PM CDT) [facility] Method Time Signature Negative Negative 03/16/2022 LABORATORY Fibronectin 6:50 PM CDT Comment: A negative fibronectin re sult indicates a low risk for . FFN Specimen Satisfactory Specimen 03/16/2022 6:50 PM CDT LABORATORY Integrity Specimen Anatomical Collection Method Collection Time Receive d Time (Source) Location / / Volume Laterality Swab CERVIX UTERI Non-blood 03/16/2022 5:52 PM 6:00 STRUCTURE / Collection / CDT PM CDT Unknown Unknown Belkis Messina MD LAB - BODY FLUIDS ORDERABLES Performing Organization Address City/State/ZIP Code [place] [address] [phone] Care Lab [address] 1st floor, Room 20B documented in [...] episode of care documented in this encounter Administered Medications Inactive Administered Medications - up to 3 most recent administrations Medication Order MAR Action Action Date Dose Rate Site metoclopramide (REGLAN) injection 10 mg 10 mg, Intravenous, Administer over 2 Mi nutes, EVERY 6 HOURS PRN, nausea, vomiting, Starting on 03/16/22 at 1629, This is Step 1 of OB nausea and vomiting management. If nausea is not resolved in 30 minutes, go to Step 2 (Zofran). Avoid use if patient has full bowel obstruction or perforati on. Irritant., OB Preadmission metoclopramide (REGLAN) tablet 10 mg 10 mg, Oral, EVERY 6 HOURS PRN, nausea and vomiting, S tarting on 03/16/22 at 1629, This is Step 1 of OB nausea and vomiting managem ent. If nausea is not resolved in 30 minutes, go to Step 2 (Zo yodit) Avoid use if patient has full bowel obstruction or perforation., OB Preadmission ondansetron (ZOFRAN ODT) ODT tab 4 mg 4 mg, Oral, EVERY 6 HOURS PRN, nausea, v omiting, Starting on 03/16/22 at 1629, This is Step 2 of OB nausea [...] , Administer over 2-5 Minutes, Starting on 03/16/22 at 1629 , This is Step 2 of OB nausea and vomiting management. Give if nausea not resolved 30 minutes aft er giving metoclopramide (REGLAN). If nausea is not resolved in 15 minutes, go to Step 3 (Compazine). Irritant., OB Preadmission prochlorperazine (COMPAZINE) injection 1 0 mg 10 mg, Intravenous, EVERY 6 HOURS PRN, n ausea, vomiting, Administer over 2 Minutes, Starting on 03/16/22 at 1629, This is Step 3 of OB nausea and vomiting management. Give if nausea not resolved 15 minutes aft er giving ondansetron (ZOFRAN). If nausea is not resolved in 30 minutes, not gracy provider., OB Preadmission prochlorperazine (COMPAZINE) suppository 25 mg 25 mg, Rectal, EVERY 12 HOURS PRN, nausea, vomiting, S tarting on 03/16/22 at 1629, This is Step 3 of OB nausea and vomiting managem ent. Give if nausea not resolved 15 minutes after giving ondanse mao (ZOFRAN). If nausea is not resolved in 30 minutes, notify provider., OB Preadmission prochlorperazine (COMPAZINE) tablet 10 m g 10 mg, Oral, EVERY 6 HOURS PRN, nausea, vomiting, Starting on 03/16/22 at 1629, This is Step 3 of OB nausea and vomiting management. Give if nausea not resolved 15 minutes after giving ondansetron (ZOFRAN ). If nausea is not resolved in 30 minutes, notify provider., OB Preadmission documented in this encounter Active and Recently Administered Medications Times are shown in CDT. PRN Medication Order 03/14/2022 03/15/2022 03/16/2022 metoclopramide (REGLAN) injection 10 mg(Linked Group 1) 10 mg, Intravenous, Administer over 2 Mi nutes, EVERY 6 HOURS PRN, nausea, vomiting, Starting on 03/16/22 at 1629, This is Step 1 of OB nausea and vomiting management. If nausea is not resolved in 30 minutes, go to Step 2 (Zofran). Avoid us e if patient has full bowel obstruction or perforation. Irritant., OB Preadmission metoclopramide (REGLAN) tablet 10 mg(Linked Group 1) 10 mg, Oral, EVERY 6 HOURS PRN, nausea a nd vomiting, Starting on 03/16/22 at 1629, This is Step 1 of OB nausea and vomiting management. If nausea is not resolved in 30 minutes, go to Step 2 (Zofran) Avoid use if patient has full bowel obst ruction or perforation., OB Preadmission ondansetron (ZOFRAN ODT) ODT tab 4 mg(Linked Group 2) 4 mg, Oral, EVERY 6 HOURS PRN, nausea, v omiting, Starting on 03/16/22 at 1629, This is Step 2 of OB nausea [...] vomiting, Administer over 2-5 Minutes, Starting on 03/16/22 at 1629, This is Step 2 of OB nausea and vomiting management. Give if nausea not resolved 30 minutes after giving metoclopramide (REG ROSANGELA). If nausea is not resolved in 15 minutes, go to Step 3 (Compazine). Irritant., OB Preadmission prochlorperazine (COMPAZINE) injection 10 mg(Linked Group 3) 10 mg, Intravenous, EVERY 6 HOURS PRN, n ausea, vomiting, Administer over 2 Minutes, Starting on 03/16/22 at 1629, This is Step 3 of OB nausea and vomiting management. Give if nausea not resolved 15 m inutes after giving ondansetron (ZOFRAN) . If nausea is not resolved in 30 minutes, notify provider., OB Preadmission prochlorperazine (COMPAZINE) suppository 25 mg(Linked Group 3) 25 mg, Rectal, EVERY 12 HOURS PRN, nause a, vomiting, Starting on 03/16/22 at 1629, This is Step 3 of OB nausea and vomiting management. Give if nausea not resolved 15 minutes after giving ondansetron (ZOFRAN). If nausea is not resolved in 30 minutes, notify provider., OB Preadmission prochlorperazine (COMPAZINE) tablet 10 mg(Linked Group 3) 10 mg, Oral, EVERY 6 HOURS PRN, nausea, vomiting, Starting on 03/16/22 at 1629, This is Step 3 of OB nausea and vomiting management. Give if nausea not resolved 15 minutes after giving ondansetron (Z OFRAN). If nausea is not resolved in 30 minutes, notify provider., OB Preadmission Linked Groups Order Group 1: metoclopramide (REGLAN) injection 10 mgJump to med 10 mg, Intravenous, Administer over 2 Mi nutes, EVERY 6 HOURS PRN, nausea, vomiting, Starting on 03/16/22 at 1629
This is Step 1 of OB nausea and vomiting management. If na usea is not resolved in 30 minutes, go t o Step 2 (Zofran). Avoid use if patient has full bowel obstruction or perforation. Irritant.
OB Preadmission Or metoclopramide (REGLAN) tablet 10 mgJump to med 10 mg, Oral, EVERY 6 HOURS PRN, nausea a nd vomiting, Starting on 03/16/22 at 1629
This is Step 1 of OB nausea and vomiting management. If nausea is not resolved in 30 raphael sophia, go to Step 2 (Zofran) Avoid us e if patient has full bowel obstruction or perforation.
OB Preadmission Group 2: ondansetron (ZOFRAN ODT) ODT tab 4 mgJump to med 4 mg, Oral, EVERY 6 HOURS PRN, nausea, v omiting, Starting on 03/16/22 at 1629
This is Step 2 of OB nausea [...] vomiting, Administer over 2-5 Minutes, Starting on 03/16/22 at 1629
This is Step 2 of OB nausea and vomiting management. Give if nausea not resolved 30 minutes after giving metoclopramide (REGLAN). If nausea is not resolved in 15 minutes, go to Step 3 (Compazine). Irritant.
OB Preadmission Group 3: prochlorperazine (COMPAZINE) injection 10 mgJump to med 10 mg, Intravenous, EVERY 6 HOURS PRN, n ausea, vomiting, Administer over 2 Minutes, Starting on 03/16/22 at 1629
This is Step 3 of OB nausea and vomiting management. Give if nausea not resol ching 15 minutes after giving ondansetron (ZOFRAN). If nausea is not resolved in 30 minutes, notify provider.
OB Preadmission Or prochlorperazine (COMPAZINE) tablet 10 mgJump to med 10 mg, Oral, EVERY 6 HOURS PRN, nausea, vomiting, Starting on 03/16/22 at 1629
This is Step 3 of OB nausea and vomiting management. Give if nausea not resolved 15 minutes after giving ondans etron (ZOFRAN). If nausea is not resolve d in 30 minutes, notify provider.
OB Preadmission Or prochlorperazine (COMPAZINE) suppository 25 mgJump to med 25 mg, Rectal, EVERY 12 HOURS PRN, nause a, vomiting, Starting on 03/16/22 at 1629
This is Step 3 of OB nausea and vomiting management. Give if nausea not resolved 15 minutes after giving ond ansetron (ZOFRAN). If nausea is not reso lved in 30 minutes, notify provider.
OB Preadmission documented in this encounter Additional Health Concerns Assessment Noted Time PHQ-9 Depression Total Score: 2 01/26/2019 11:18 AM CD T documented as of this encounter Care Teams Mine Laborer Relationship Specialty Start Date End Date Justin Loya MD PCP - General Family Practice 02/19/11 [facility] [address] [place] [phone] Silas Santiago MD MD Pain Clinic 11/29/13 [facility] [address] [place], [place] [address] Caden Leone, Assigned Surgical Provider 07/20 01/08 [place] [address] documented as of this encounter
--- OUTSIDE RECORDS SUMMARY | 2022-06-23 17:40 | XMS_ITS | Encounter Summary ---
:1990 Author Organization [place] Address [address] [facility] [place] [address] Care Team Providers Name Role Phone Justin Loya MD Primary Care Provider Silas Santiago MD Unavailable Caden Leone MD Unavailable [phone] Reason for Visit Reason Comments Abdominal Cramping Auth/Cert Specialty Diagnoses / Procedures Referred By Contact Refer red To Contact cattle examiner Diagnoses Previous section Encounter for triage in patient Previous section [Z98.891] Encounter for triage in patient Sh [facility] Procedures [facility] FULL ROUT OBSTE CARE, DELIV [facility] DELIVERY ONLY [facility] DELIVERY+ CARE REPEAT SECTION [address] [place] [address] Phone: Referral ID Status Reason Start Date Expiration Date Visits Requ ested Visits Authorized [id number] 1 1 Encounter Details Date Type Department Care Team Description 03/28/2022 Hospital Encounter [facility] MD Ramo [address] [place] [address] [place] [id number] (Wo rk) Social History Tobacco Use Types [...] Sign Reading Time Taken Comments Blood Pressure 110/74 03/28/2022 7:08 PM CDT Pulse - - Temperature 37.4 ??C (99.3 ??F) 03/28/2022 7:08 PM CDT Respiratory Rate 16 03/28/2022 7:08 PM CDT Oxygen Saturation - - Inhaled Oxygen Concentration - - Weight - - Height - - Body Mass Index - - documented in this encounter Discharge Instructions Discharge InstructionsKarlie Jackson RN - 03/28/2022 8:59 PM CDT Discharge Instruction for Undelivered Patients You were seen for: Labor Assessment We Consulted: Dr. Haile Caba You had (Test or Medicine): NST, wet prep Diet: Drink 8 to 12 glasses of liquids (milk, juice, water) every day. You may eat meals and snacks. Activity: Call your doctor or nurse superintendent terminal if your baby is moving less than [...] encounter Miscellaneous Notes Plan of Care - Karlie Jackson RN - 03/28/2022 9:00 PM CDT Discharge instructions given, patient verbalizes understanding. Pt ambulatory, discharged to home instable condition. Plan of Care - Elisa Negrete RN - 03/28/2022 7:19 PM CDT Patient presents to MAC at 28w5d noting cramps that have bothered her since last night. She notes the frequency ranges 20 sec to 1.5 mins. She had some diarrhea today, usually has constipation. She notes having had BV this and wonders if she has it again. She notes baby being very active today, more today than ever before. She notes having marginal cord insertion. She had a -FFN a few weeks ago, along with a closed cervix. She consents to external & uterine monitoring. Report given to Karlie Lucas RN. documented in this encounter Plan of Treatment Not on filedocumented as of this encounter Procedures Procedure Name Priority Date/Time Associated Comments Diagnosis WET PREPARATION Routine 03/28/2022 8:54 PM Result s for this CDT procedure are i n the results section. NON-STRESS TEST 03/28/2022 12:00 - HIM SCAN AM CDT documented in this encounter Results (ABNORMAL) Wet preparation (03/28/2022 8:54 PM CDT) Analysis Performed At Patho logist Time Signature Trichomonas Absent Absent [facility] 03/28/2022 LABORATORY 9:11 PM CDT Yeast Absent Absent [facility] 03/28/2022 LABORATORY 9:11 PM CDT Clue Cells Absent Absent [facility] 03/28/2022 LABORATORY 9:11 PM CDT WBCs/high power 2+ (A) None [facility] 03/28/2022 LABORATORY field 9:11 PM CDT Specimen Anatomical Collection Method Collection Time Receive d Time (Source) Location / / Volume Laterality Swab VAGINAL STRUCTURE Non-blood 03/28/2022 8:54 PM 09/0 03/2022 9:00 / Unknown Collection / CDT PM CDT Unknown Tamie Caba MD LAB - MICRO GENERAL ORDERABL ES Performing Organization Address City/State/ZIP [place] [address] Care Lab [address] 1[address] floor, Room 20B NON-STRESS TEST - HIM SCAN (03/28/2022 12:00 [...] triage in patient documented in this encounter Additional Health Concerns Assessment Noted Time PHQ-9 Depression Total Score: 2 01/26/2019 11:18 AM CD T documented as of this encounter Care Teams Haz Tech Relationship Specialty Start Date End Date Justin Loya MD PCP - General Family Practice 02/19/11 [facility] [address] [place] [phone] Silas Santiago MD MD Pain Clinic 11/29/13 [facility] [address] [place], [place] [address] Caden Leone, Assigned Surgical Provider 07/20 01/08 MD Mike [address] [place], [place] [phone] documented as of this encounter
--- OUTSIDE RECORDS SUMMARY | 2022-06-23 17:40 | XMS_ITS | Encounter Summary ---
:1990 Author Organization [place] Address [facility] [place] [address] Care Team Providers Name Role Phone Justin Loya MD Primary Care Provider Silas Santiago MD Unavailable Caden Leone MD Unavailable [phone] Encounter Details Date Type Department Care Team Description 10/01/2021 Travel Social History Tobacco Use Types Packs/Day [...] documented as of this encounter Care Teams Mental Health Counselor Relationship Specialty Start Date End Date Justin Loya MD PCP - General Family Practice 02/19/11 [facility] [address] [place] [address] Silas Santiago MD MD Pain Clinic 11/29/13 [facility] [address] [place], [place] [address] Caden Leone, Assigned Surgical Provider 07/20 01/08 [place] [address] documented as of this encounter
--- OUTSIDE RECORDS SUMMARY | 2022-06-23 17:40 | XMS_ITS | Encounter Summary ---
:1990 Author Organization [place] Address [address] [facility] [place] [address] Care Team Providers Name Role Phone Justin Loya MD Primary Care Provider Silas Santiago MD Unavailable Caden Leone MD Unavailable [phone] Encounter Details Date Type Department Care Team Description 09/19/2021 Medical Correspondence [facility] Scan, REFERRAL BREAST Health Info [facility] Non-Provider CENTER [facility] ING Srvcs [facility] [address] [place] [phone] Social History Tobacco Use Types Packs/Day Years Used Date Smoking Tobacco: Never Smokeless Tobacco: Never Alcohol Use Standard Drinks/Week Comments No 0 (1 standard drink = 0.6 oz pure alcoho l) Sex Assigned at Date Recorded Not on file documented as of this encounter Plan of Treatment Not on filedocumented as of this encounter Visit Diagnoses Not on filedocumented in this encounter Additional Health Concerns Assessment Noted Time PHQ-9 Depression Total Score: 2 01/26/2019 11:18 AM CD T documented as of this encounter Care Teams Electrical Engineering Teacher Relationship Specialty Start Date End Date Justin Loya MD PCP - General Family Practice 02/19/11 [facility] [address] [place] [address] Silas Santiago MD MD Pain Clinic 11/29/13 [facility] [address] [place], [place] [address] Caden Leone, Assigned Surgical Provider 07/20 01/08 [place] [address] documented as of this encounter
--- OUTSIDE RECORDS SUMMARY | 2022-06-23 17:40 | XMS_ITS | Encounter Summary ---
:1990 Author Organization [place] Address [address] [place] [address] Care Team Providers Name Role Phone Justin Loya MD Primary Care Provider Silas Santiago MD Unavailable Caden Leone MD Unavailable [phone] Reason for Referral Consultation (Routine: Next available opening) - Pending Review Specialty Diagnoses / Procedures Referred By Contact Refer red To Contact Diagnoses related condition, antepartum Maris Emery MD [address] [place] [address] Referral ID Status Reason Start Date Expiration Date Visits V isits Requested Authorized [id number] Pending 10/08/2021 10/08/2022 1 1 Review Encounter Details Date Type Department Care Team Description 10/08/2021 Transcribe Orders [facility] Maris Emery Pre gnancy related Maternal MD Juliano condition, Medicine Center [address] antepartum (Primary [place] [address] Dx) [address] [place] [address] [place], [place] [phone] (Work) [phone] Social History Tobacco Use Types Packs/Day Years [...] Type Priority Associated Diagnoses Order S chedule [facility] Office Visit Referral Routine: Next related Expec nisreen: available opening condition, antepartum 0 10/08/2021 (Approximate), Expires: 10/08/2022 documented as of this encounter Visit Diagnoses Diagnosis related condition, antepartum - Primary documented in this encounter Additional Health Concerns Assessment Noted Time PHQ-9 Depression Total Score: 2 01/26/2019 11:18 AM CD T documented as of this encounter Care Teams Plasterer Rough Relationship Specialty Start Date End Date Justin Loya MD PCP - General Family Practice 02/19/11 [facility] [address] [place] [phone] Silas Santiago MD MD Pain Clinic 11/29/13 [facility] [address] [place], [place] [address] Caden Leone, Assigned Surgical Provider 07/20 01/08 [place] [address] documented as of this encounter
--- OUTSIDE RECORDS SUMMARY | 2022-06-23 17:40 | XMS_ITS | Encounter Summary ---
:1990 Author Organization [place] Address [address] [facility] [place] [address] Care Team Providers Name Role Phone Justin Loya MD Primary Care Provider Silas Santiago MD Unavailable Caden Leone MD Unavailable Encounter Details Date Type Department Care Team Description 03/26/2022 Orders Only [facility] Kimberly Ramsay Pre-opera tive [facility] MD Juliano cardiovascular [address] examination (Primary Dx) [place] [address] [facility] [address] [place] [address] Social History Tobacco Use Types Packs/Day [...] on filedocumented as of this encounter Results Treponema Abs w Reflex to RPR and Titer (06/09/2022 8:43 AM REAL ESTATE EXECUTIVE ASSISTANT) Patholo gist Method Time Signature Treponema Nonreactive Nonreactive 06/09/2022 [facility] Antibody 11:50 AM REAL ESTATE EXECUTIVE ASSISTANT CORE/PROT/EN Total DO Specimen Anatomical Collection Method / Collection Time Recei ching Time (Source) Location / Volume Laterality Blood STRUCTURE OF RIGHT Venipuncture / 06/09/2022 8:43 /2 07/2021 8:44 UPPER LIMB / Unknown AM REAL ESTATE EXECUTIVE ASSISTANT AM REAL ESTATE EXECUTIVE ASSISTANT Unknown Kimberly Ramsay MD LAB - BLOOD ORDERABLES Performing Organization Address City/State/ZIP Code Phon e Number [facility] CORE/PROT/ENDO [facility] [place] [address] Core/Prot/Endo [address] [facility] [address] Building, Room 3-580 Hemoglobin (06/09/2022 8:43 AM REAL ESTATE EXECUTIVE ASSISTANT) P athologist Signature Hemoglobin 11.9 11.7 - 15.7 06/09/2022 LABORATORY g/dL 8:47 AM REAL ESTATE EXECUTIVE ASSISTANT Specimen Anatomical Collection Method / Collection Time Recei ching Time (Source) Location / Volume Laterality Blood STRUCTURE OF RIGHT Venipuncture / 06/09/2022 8:43 05/21 8:44 UPPER LIMB / Unknown AM REAL ESTATE EXECUTIVE ASSISTANT AM REAL ESTATE EXECUTIVE ASSISTANT Unknown Kimberly Ramsay MD LAB - BLOOD ORDERABLES Performing Organization Address City/State/ZIP Code [place] [address] [phone] Care Lab [address] 1[address] floor, Room [address]B documented in this encounter Visit Diagnoses Diagnosis Pre-operative cardiovascular examination - Primary documented in this encounter Additional Health Concerns Assessment Noted Time PHQ-9 Depression Total Score: 2 01/26/2019 11:18 AM CD T documented as of this encounter Care Teams Radio Aerial Installer Relationship Specialty Start Date End Date Justin Loya MD PCP - General Family Practice 02/19/11 [facility] [address] [place] [phone] Silas Santiago MD MD Pain Clinic 11/29/13 [facility] [address] [facility], [place] [address] Caden Leone, Assigned Surgical Provider 07/20 01/08 MD Mike [address]AK[address] [place], [place] [phone] documented as of this encounter
--- OUTSIDE RECORDS SUMMARY | 2022-06-23 17:40 | XMS_ITS | Encounter Summary ---
:1990 Author Organization [place] Address [address] [facility] [place] [address] Care Team Providers Name Role Phone Justin Loya MD Primary Care Provider Silas Santiago MD Unavailable Caden Leone MD Unavailable [phone] Reason for Referral Diagnostic Imaging Ultrasound (Routine) - Pending Review Specialty Diagnoses / Procedures Referred By Contact Refer red To Contact Diagnoses Breast pain, right Meche Monzon APRN Procedures US Breast Right [employer] [address] [facility] [address] [place] [address] Referral ID Status Reason Start Date Expiration Date Visits V isits Requested Authorized [id number] Pending 09/19/2021 09/19/2022 1 1 Review Electronically signed by Meche Monzon APRN [employer] at 10/01/2021 2:25 PM CDT Reason for Visit Diagnostic Imaging Ultrasound (Routine) - Pending Review Specialty Diagnoses / Procedures Referred By Contact Refer red To Contact Diagnoses Breast pain, right Meche Monzon APRN Procedures US Breast Right [employer] [address] [place] [address] Referral ID Status Reason Start Date Expiration Date Visits V isits Requested Authorized [id number] Pending 09/19/2021 09/19/2022 1 1 Review Encounter Details Date Type Department Care Team Description [facility]/01[facility]21 [facility] Meche, HOME DAY CARE PROVIDER [address], [employer] [address] [place] [phone] [place], [place] [id number] Social History Tobacco Use Types Packs/Day Years [...] / COVID-19? documented as of this encounter Medications at [...] Priority Date/Time Associated Diagnosis Comme nts US BREAST RIGHT Routine 10/01/2021 3:03 PM Breast pain, right Results for this LIMITED 1-3 CDT procedure are i n QUADRANTS the results section. documented in this encounter Results US Breast Right (10/01/2021 3:03 PM CDT) Anatomical Region Laterality Modality Breast Right Ultrasound Specimen (Source) Anatomical Location Collection Method / Collectio n Time Received Time / Laterality Volume Impressions 10/01/2021 3:28 PM CDT IMPRESSION: BI-RADS CATEGORY: 1 - ??NEGATIVE. RECOMMENDED FOLLOW-UP: Annual Mammograph catracho BLANK MD Narrative 10/01/2021 3:28 PM CDT US BREAST RIGHT LIMITED 1-3 QUADRANTS, 10/01/2021 3:28 PM HISTORY: ??Right breast pain. Patient ve ry early in . COMPARISON: ??05/24/2008 FINDINGS: ??Negative ultrasound in the v icinity of right breast pain. Any further management to be based on cl inical grounds. Procedure Note Azul Blank MD - 10/01/2021Fo rmatting of this note might be different from the original. US BREAST RIGHT LIMITED 1-3 QUADRANTS, 3:28 PM HISTORY: Right breast pain. Patient very early in . COMPARISON: 05/24/2008 FINDINGS: Negative ultrasound in the marcellus inity of right breast pain. Any further management to be based on cl inical grounds. IMPRESSION: BI-RADS CATEGORY: 1 - NEGATI VE. RECOMMENDED FOLLOW-UP: Annual Mammograph y. AZUL BLANK MD Meche Monzon APRN [employer] IMG US ORDERABLES documented in this encounter Visit Diagnoses Diagnosis Breast pain, right Mastodynia documented in this encounter Additional Health Concerns Assessment Noted Time PHQ-9 Depression Total Score: 2 01/26/2019 11:18 AM CD T documented as of this encounter Care Teams Stockroom Supervisor Relationship Specialty Start Date End Date Justin Loya MD PCP - General Family Practice 02/19/11 [facility] [address] [place] [phone] Silas Santiago MD MD Pain Clinic 11/29/13 [facility] [address] [place], [place] [address] Caden Leone, Assigned Surgical Provider 07/20 01/08 MD [address] [place], [place] [address] documented as of this encounter
--- OUTSIDE RECORDS SUMMARY | 2022-06-23 17:40 | XMS_ITS | Encounter Summary ---
:1990 Author Organization [place] Address [facility] [place] [address] Care Team Providers Name Role Phone Justin Loya MD Primary Care Provider Silas Santiago MD Unavailable Caden Leone MD Unavailable [phone] Encounter Details Date Type Department Care Team Description 03/04/2022 Travel Social History Tobacco Use Types Packs/Day [...] documented as of this encounter Care Teams Manager Of Global Relationship Specialty Start Date End Date Justin Loya MD PCP - General Family Practice 02/19/11 [facility] [address] [place] [phone] Silas Santiago MD MD Pain Clinic 11/29/13 [facility] [address] [place], [place] [address] Caden Leone, Assigned Surgical Provider 07/20 01/08 [place] [address] documented as of this encounter
--- OUTSIDE RECORDS SUMMARY | 2022-06-23 17:40 | XMS_ITS | Encounter Summary ---
:1990 Author Organization [place] Address [address] [facility] [place] [address] Care Team Providers Name Role Phone Justin Loya MD Primary Care Provider Silas Santiago MD Unavailable Caden Leone MD Unavailable [phone] Reason for Visit Reason Comments Ultrasound Hx graves, jugular vein thro mbosis, POTS, Hx back surgery, chiari malformation Consult Hx graves, jugular vein thro mbosis, POTS, Hx back surgery, chiari malformation Consultation (Routine: Next available opening) - Pending Review Specialty Diagnoses / Procedures Referred By Contact Refer red To Contact Diagnoses related condition, antepartum Maris Emery MD [address] [facility] [address] [place] [address] Referral ID Status Reason Start Date Expiration Date Visits V isits Requested Authorized [id number] Pending 10/08/2021 10/08/2022 1 1 Review Encounter Details Date Type Department Care Team Description 11/28/2021 Office Visit [facility] Maris Emery MD [address] [facility] [address] [place], [place] [address] Hyperthyroidism affecting in f irst trimester (Primary Dx); Maternal Liam Thomas MD [address] [place], [place] [address] Personal history of DVT (deep vein throm bosis); [facility] Center History of p remature delivery, currently , first trimester [place] [address] [place], [place] [phone] Anesthesia Record Procedure Summary Procedure Name Responsible [...] documented as of this encounter Progress Notes Jaz Moss MD - 11/28/2021 11:45 AM CDT RE: Destiney Huff : 1990 MRUN: [id number] November 28, [address] Emery, Thank you for referring your patient Destiney Huff for a Maternal- Medicine consultation today. As you know, Destiney is a 30 year old at 11w4d gestation with an Estimated Date of Delivery:Jun 15, 2022 by 7w3d US c/w LMP. Today Detsiney feels well. Destiney and her partner came to us today to discuss recommendations in the setting of: 1. hx hyperthyroidism - Grave's disease diagnosed 07/2019. Per chart review, stopped treatment when she found out she was . Per Dr. Stephen on 11/14/19: subacute thyroiditis for which the patientis now euthyroid and TSH has improved to the mid normal range. (see endo note from 08/15/21). Currently follows with endocrinology, Dr. Dawson, Dr Carr - no medications currently. Dr. Lois Carr note dated 08/15/21: I have reviewed lab findings with the patient in detail. She is reassured that she is euthyroid. For planning, goal TSH is under 2.5, but given that the patient has negative TPO antibody and TSH is improving, it is reasonable to monitor and not treat with levothyroxine at this point. Also, patient is reassured that Graves disease still remains in remission. We discussed thyroidhormone changes during ... Recheck a TSH, free T4, free T3 in 6 weeks. The patient in the meantime should call if she has a positive test. We will plan to do monthly thyroid labs until 16 weeks and then each trimester. 2. hx left jugular venous thrombosis diagnosed 05/2017 - considered provoked in the setting of IV contrast during MRI; subsequently had negative acquired/congenital thrombophilia workup, was on 6w lovenox after first 3. hx one prior at 36w0d for PPROM, delivered via section for breech presentation. Per chart review: after her , pt with continued pain following surgery (pt refuses epidural or spinal d/t back issues)--had an emergency C/S requiring GETA as well as a TAP block, she subsequently had LLQ pain and tenderness as well as subjective left leg weakness, especialy when lifting her thigh. She as a sensation of tugging in the LLQ when cycling as well. She has not noted any lump or bulge. She saw a neurologist last year and did not have any conclusion from that consult. Has a H/O lumbar surgery but states that she had a lumbar MRI that was normal. Evaluation for hernia negative--see surgical consult scan 08/06/21. Destiney reviews her history as follows: diagnosed with Graves disease as above, however most recentlyall of her labs have been normal and the antibodies have disappeared, so she is wondering if she still technically has Graves. She is uncertain about a diagnosis of POTS, which is mentioned in her chart history. She reports no symptoms of this currently. Regarding her blood clot, she confirms the history as above. Was on baby ASA in first and lovenox . Regarding her first , she reports several weeks of contractions however nothing happened until her water broke at 35w6d and was then delivered at 36w. She notes baby was kicking a lot the night her water broke and shewonders if this was the cause, or why else it could've happened. Notes no other complications in herfirst . Obstetrical History: OB History Para Term AB Living 2 1 0 1 0 1 SAB IAB Ectopic Multiple Live Births 0 0 0 0 1 # Outcome Date GA Lbr Andrea/2nd Weight Sex Delivery Anes PTL Lv 2 Current 1 08/25/20 36w0d 2.54 kg (5 lb 9.6 oz) M CS-Unspec N FRANCESCA Name: JACKSON HUFF Apgar1: 8 Apgar5: 9 Gynecological History: ??? No known history of abnormal pap smears and cervical procedures/surgeries. ??? No known history of myomas or uterine abnormalities. Medical History: Past Medical History: Diagnosis Date ??? Anxiety ??? Graves disease ??? Insomnia ??? POTS (postural orthostatic tachycardia syndrome) ??? Thrombosis of left jugular vein ??? Trigeminal neuralgia Surgical History: Past Surgical History: Procedure Laterality Date ??? DECOMPRESSION LUMBAR MINIMALLY INVASIVE ONE LEVEL 02/19/2011 Procedure:DECOMPRESSION LUMBAR MINIMALLY INVASIVE ONE LEVEL; L5-S1; Surgeon:KAYE HERNANDEZ; Location:[facility] OR ??? MYRINGOTOMY, INSERT TUBE BILATERAL, COMBINED ??? TONSILLECTOMY ??? WISDOM TEETH EXTRACTION Medications: Current Outpatient Medications: ??? FEROSUL 325 (65 Fe) MG tablet, TAKE 1 TABLET BY MOUTH TWICE DAILY WITH MEALS, Disp: , Rfl: Allergies: Allergies Allergen Reactions ??? Cephalosporins Hives ??? [...] and Other (See Comments) Restlessness, squirming Social History: ??? She reports that she has never smoked. She has never used smokeless tobacco. She reports that she does not drink alcohol and does not use drugs. Family History: Family History Problem Relation Age of Onset ??? Glaucoma No family hx of ??? Macular Degeneration No family hx of Review of Systems: ??? 10 point review of systems negative except as noted in the HPI Data Reviewed: o ABO Group: A, Rh type: pos, antibody screen: neg o Hemoglobin 14.2 mg/dL, hematocrit 42.7 %, MCV 89 fL, platelets 292 thou/??L o Hemoglobin A1C: 5.3 % o Creatinine: 0.7 mg/dL o Remainder of NOB labs not drawn or not in chart Additional labs reviewed: 11/12/21 - Free T3 2.60, Free T4 0.90, TSH 1.58 07/31/21 - Free T3 2.60, Free T4 0.90, TSH 2.99, TPO nguyen 4, TSI 0.14 Ultrasound: 1st trimester screening US in [facility] today 11/28/2021 - GENERAL EVALUATION Cardiac activity present. Placenta anterior. Cord vessels normal insertion. Amniotic fluid normal amount. IMPRESSION Sonographic biometry agrees with gestational age predicted by LMP. The nuchal translucency measurement is within the normal range. The nasal bone is present. Physical examination was deferred at this time. Assessment and Plan: In light of the patient???s history as listed above our discussion and recommendations can be summarized briefly as follows: Hx of Grave's disease: The prevalence of hyperthyroidism is approximately 0.2% and most cases result from Graves??? disease(85-95%). Diagnosis and management of hyperthyroidism can be complicated in the first trimester, when TSH can be suppressed due to the high concentration of hCG, which can stimulate the thyroid gland. Because of changes in thyroid hormone binding globulin, which increases in , total thyroxin may increase while the free T4 may be normal. As a result, it is critical to rely on the symptoms of the patient as well as the serum free T4 concentration to diagnose and follow the hyperthyroid patient. We discourage the use of the TSH test in patients with hyperthyroidism in because it is less helpful than the free T4 test. The natural course of Graves hyperthyroidism is often characterized by exacerbation of symptoms in the 1st trimester and , with an amelioration of symptoms in the second half of gestation. Graves disease is the result of excessive thyroid stimulating antibodies in the maternal circulation. These antibodies may circulate for many years after hyperthyroidism is corrected in the mother, including after thyroidectomy or radio-active iodine treatment, and may cross the placenta resulting in and Graves disease in 1- 5% of pregnancies. The fetus remains at risk even if the mother is euthyroid. The risk is lower after thyroidectomy than after radio-iodine treatment. Signs of potential hyperthyroidism include tachycardia, intrauterine growth restriction, presence of goiter (the earliest sonographic sign of thyroid dysfunction), and hydrops. The titersof antithyroid antibodies decrease with the progression of the . thyroid status should be monitored by heart rate checks, nonstress tests, and periodic anatomical ultrasounds to assess for growth and goiter. Uncontrolled hyperthyroidism has been associated with miscarriage, premature labor, low weight, intrauterine demise, preeclampsia, and some cardiac disorders. Poorly controlled hyperthyroidism can also lead to thyroid storm, particularly in times of stress during the , and this poses potential serious harm to the mother and fetus. Well controlled hyperthyroidism typically has good outcomes. Treatment is reserved for moderate to severe symptomatic disease. The goals of treatment are to keepthe patient euthyroid on the minimum amount of antithyroid medication, titrating to achieve a free T4 in the high normal range. Recommendations: ??? Treatment with thionamides not indicated at this time given normal labs including free T3 and [id number]. If medications are needed: o PTU is used in the first trimester; Methimazole should be started, and PTU discontinued, in the second trimester. ??? Repeat thyroid function testing each trimester. ??? Close monitoring for development of preeclampsia. ??? Close monitoring for symptoms of hyperthyroidism. ??? Delivery by 40-41 weeks. ??? Close follow up with endocrinology during and immediately . ??? Close monitoring for thyroiditis. Hx of provoked DVT (left IJ clot): We discussed that in the setting of history of a provoked venous thromboembolism, there is no recommendation for anticoagulation during . Time-limited anticoagulation can be considered in the presence of additional risk factors. Patient is planning a scheduled repeat CS so if this is the case we would recommend 6 weeks of prophylactic lovenox starting immediately . We discussed that low dose ASA does not affect the risk of VTE and thus there is no indication to take it in this setting. We discussed that ASA is commonly used for other indications (e.g., preeclampsia prophylaxis for those with risk factors), and overall is a low risk intervention. Hx of spontaneous PTB: We discussed the incidence and epidemiology of (PTB). There are multiple etiologies ofspontaneous PTB, including but not limited to infection, bleeding, uterine distension, cervical insufficiency and stress. However, most spontaneous deliveries occur in patients with no risk factors. A history of prior delivery is a significant risk factor for recurrence in a subsequentpregnancy. Recurrent delivery has been linked to maternal ethnicity, genitourinary infection, and especially gestational age at the first delivery: the earlier the delivery, the greaterthe likelihood of recurrence. We discussed that recurrent can happen at the same gestational age as a prior but that it cannot be predicted and it could recur at an earlier gestational age. We also discussed the concept of cervical insufficiency which is another cause of and is classically described as painless cervical dilation. Most women with cervical insufficiency which is either undiagnosed or those undergoing expectant management will eventually develop symptoms, which may be pressure, back pain, cramping, leakage of fluid, vaginal bleeding and ultimately contractions. Mid- trimester cervical dilation increases the risk of intra-amniotic infection which can then cause contractions and labor. We discussed the increased morbidity and mortality with prematurity which is the rationale for trying to prevent recurrent . We follow cervical lengths every two from 16 to 23 weeks in women with a history of PTB; an ultrasound indicated cerclage may be considered if shortening to less than 25mm is detected prior to 23-24 weeks, given that all cases of cervical shortening may not fit into the classic patterns by history. We discussed the data regarding the use of weekly intramuscular injections of 17 hydroxyprogesteronecaproate (17-OHP) supplementation as a means to modify the risk of recurrent . [facility] interprets the existing disparate results on use of 17-OHP as possibly partially related to the different populations in the two studies. The current conclusion of [facility] is that it is reasonable to offer 17-OHP to women with a profile more sales account representative of the very high risk patient, but that all women atrisk of recurrent should have a discussion of the risks/benefits and undergo a shared decision-making process. Based on her obstetrical history, Ms. Huff risk of recurrent is estimated to be about 12-15%. We discussed that with history of at 36 weeks, we would not recommend use [id number]. Recommendations: - Baseline transvaginal cervical length at 16 weeks' gestation with measurements every 2 weeks through 23 weeks. - Ultrasound-indicated cerclage should be considered if shortening <25 mm is diagnosed <24 weeks. - Administration of corticosteroids if the patient is deemed to be at increased risk of imminent delivery. - Urine culture every trimester with aggressive treatment of bacteriuria. - Clinical evaluation of labor symptoms. At the end of our discussion, Destiney indicated that her questions were answered and she seemed satisfied with our discussion. Thank you for the opportunity to participate in your patient???s care. If Ican be of any further assistance, please do not hesitate to contact us. Patient seen with Dr. Martha Moss MD ObGyn, PGY-2 11/28/21 12:36 PM Physician Attestation I, Liam Thomas MD, saw this patient and agree with the findings and plan of care as documented in the note. Items personally reviewed/procedural attestation: History, ultrasound and recommendations. Total time spent in [id number] counseling was 30 minutes (>50% for medical management discussion and planof care). A copy of this consult has been sent to your office. Liam Thomas MD documented in this encounter Nursing Notes Chuyita Anderson, ALDO - 11/28/2021 11:45 AM CDT Destiney here for GC, NT and MFM consult due to preg c/b thrombosis. Dr. Thomas into see pt. SEe consultnote. Pt left amb and stable. Chuyita Anderson RN documented in this encounter Plan of Treatment Not on filedocumented as of this encounter Visit Diagnoses Diagnosis Hyperthyroidism affecting in f irst trimester - Primary Personal history of DVT (deep vein throm bosis) Personal history of venous thrombosis an d embolism History of premature delivery, currently , first trimester documented in this encounter Additional Health Concerns Assessment Noted Time PHQ-9 Depression Total Score: 2 01/26/2019 11:18 AM CD T documented as of this encounter Care Teams Pattern Gater Relationship Specialty Start Date End Date Justin Loya MD PCP - General Family Practice 02/19/11 [facility] [address] [place] [phone] Silas Santiago MD MD Pain Clinic 11/29/13 [facility] [address] [place], [place] [phone] Caden Leone, Assigned Surgical Provider 07/20 01/08 [place] [address] documented as of this encounter
--- OUTSIDE RECORDS SUMMARY | 2022-06-23 17:40 | XMS_ITS | Encounter Summary ---
:1990 Author Organization [place] Address [address] [facility] [place] [address] Care Team Providers Name Role Phone Justin Loya MD Primary Care Provider Silas Santiago MD Unavailable Caden Leone MD Unavailable [phone] Liam Thomas MD Unavailable Encounter Details Date Type Department Care Team Description 11/08/2021 External Order M [facility] Outside, Provide r Results Molecular Diagnostic s [address] [place] [address] Social History Tobacco Use Types Packs/Day Years Used Date Smoking Tobacco: Never Smokeless Tobacco: Never Alcohol Use Standard Drinks/Week Comments No 0 (1 standard drink = 0.6 oz pure alcoho l) Sex Assigned at Date Recorded Not on file documented as of this encounter Plan of Treatment Not on filedocumented as of this encounter Procedures Procedure Name Priority Date/Time Associated Comments Diagnosis HEPATITIS C ANTIBODY Routine 11/08/2021 3:09 PM R esults for this (EXTERNAL RESULT) CDT procedure are in the results section. HEPATITIS B SURFACE Routine 11/08/2021 3:09 PM Re sults for this ANTIGEN (EXTERNAL CDT procedure are in RESULT) the results section. URINE CULTURE (OB Routine 11/08/2021 3:09 PM Resu lts for this EXTERNAL RESULT) CDT procedure a re in the results section. TREPONEMA PALLIDUM Routine 11/08/2021 3:09 PM Res ults for this ANTIBODY (RPR) CDT procedure are in (EXTERNAL RESULT) the result s section. HIV 1&2 ANTIBODY Routine 11/08/2021 3:09 PM Resul ts for this (EXTERNAL RESULT) CDT procedure are in the results section. RUBELLA ANTIBODY IGG Routine 11/08/2021 3:09 PM R esults for this (EXTERNAL RESULT) CDT procedure are in the results section. ABO & RH (EXTERNAL Routine 11/08/2021 3:09 PM Res ults for this RESULT) CDT procedure are i n the results section. GONORRHEA (EXTERNAL Routine 11/08/2021 3:09 PM Re sults for this RESULT) CDT procedure are i n the results section. CHLAMYDIA TRACHOMATIS Routine 11/08/2021 3:09 PM Results for this PCR (EXTERNAL RESULT) CDT proced ure are in the results section. CBC WITH PLATELETS & Routine 11/08/2021 3:09 PM R esults for this DIFFERENTIAL CDT procedure are i n the results section. documented in this encounter Results CBC with Platelets & Differential (11/08/2021 3:09 PM CDT) P athologist Signature WBC Count 8.0 3.4 - 10.8 NON-INTERFACED (External) x10E3/uL (ONBASE SCANS) RBC Count 4.35 3.77 - NON-INTERFACED (External) 5.28 (ONBASE SCANS) x10E6/uL Hemoglobin 12.8 11.1 - NON-INTERFACED (External) 15.9 g/dL (ONBASE SCANS) Hematocrit 38.6 34.0 - NON-INTERFACED (External) 46.6 % (ONBASE SCANS) MCV (External) 89 79 - 97 fL NON-INTERFACED (ONBASE SCANS) MCH (External) 29.4 26.6 - NON-INTERFACED 33.0 pg (ONBASE SCANS) MCHC (External) 33.2 31.5 - NON-INTERFACED 35.7 g/dL (ONBASE SCANS) RDW (External) 12.6 11.7 - NON-INTERFACED 15.4 % (ONBASE SCANS) Platelet Count 256 150 - 450 NON-INTERFACED (External) x10E3/uL (ONBASE SCANS) % Neutrophils 71 % NON-INTERFACED (External) (ONBASE SCANS) % Lymphocytes 18 % NON-INTERFACED (External) (ONBASE SCANS) % Monocytes 8 % NON-INTERFACED (External) (ONBASE SCANS) % Eosinophils 2 % NON-INTERFACED (External) (ONBASE SCANS) % Basophils 1 % NON-INTERFACED (External) (ONBASE SCANS) Absolute 5.7 1.4 - 7.0 NON-INTERFACED Neutrophils x10E3/uL (ONBASE SCANS) (External) Absolute 1.4 0.7 - 3.1 NON-INTERFACED Lymphocytes x10E3/uL (ONBASE SCANS) (External) Absolute 0.6 0.1 - 0.9 NON-INTERFACED Monocytes x10E3/uL (ONBASE SCANS) (External) Absolute 0.2 0.0 - 0.4 NON-INTERFACED Eosinophils x10E3/uL (ONBASE SCANS) (External) Absolute 0.1 0.0 - 0.2 NON-INTERFACED Basophils x10E3/uL (ONBASE SCANS) (External) Specimen (Source) Anatomical Collection Method Collection Time Re ceived Time Location / / Volume Laterality Blood 11/08/2021 3:09 PM CDT Narrative [facility] - 12/06/2021 2:00 PM CDT Verified by Chuyita Ly on . Kimberly Ramsay MD LAB - BLOOD ORDERABLES Performing Organization Address City/State/[facility] Code Phon e Number [facility] NON-INTERFACED (ONBASE SCANS) HIV-1 Antibody (External Result) (11/08/2021 3:09 PM CDT) [facility] gist Method Time Signature HIV 1&2 Non Reactive NON REACTIVE NON-INTERFAC Antibody ED (ONBASE (External) SCANS) Specimen (Source) Anatomical Collection Method Collection Time Re ceived Time Location / / Volume Laterality 11/08/2021 3:09 PM CDT Narrative [facility] - 12/06/2021 2:00 PM CDT Verified by Chuyita Ly on . Kimberly Ramsay MD LAB - HIM EXTERNAL RESULT Performing Organization Address City/State/ZIP Code Phon e Number [facility] NON-INTERFACED (ONBASE SCANS) ABO & RH (External Result) (11/08/2021 3:09 PM CDT) P athologist Signature ABO (External) A NON-INTERFACE D (ONBASE SCANS) Rh (External) Positive NON-INTERFACE D (ONBASE SCANS) Comment: ANTIBODY SCREEN Negative Specimen (Source) Anatomical Collection Method Collection Time Re ceived Time Location / / Volume Laterality 11/08/2021 3:09 PM CDT Narrative [facility] - 12/06/2021 2:00 PM CDT Verified by Chuyita Ly on . Kimberly Ramsay MD LAB - HIM EXTERNAL RESULT Performing Organization Address [facility] Phon e Number [facility] NON-INTERFACED (ONBASE SCANS) (ABNORMAL) Rubella Antibody IgG (External Result) (11/08/2021 3:09 PM CDT) Analysis Performed At Patho logist Time Signature Rubella 0.95 (L) IMMUNE NON-INTERFACE Antibody IgG >0.99 index D (ONBASE (External) SCANS) Specimen (Source) Anatomical Collection Method Collection Time Re ceived Time Location / / Volume Laterality 11/08/2021 3:09 PM CDT Narrative [facility] - 12/06/2021 2:00 PM CDT Verified by Chuyita Ly on . Kimberly Ramsay MD LAB - HIM EXTERNAL RESULT Performing Organization Address [facility] Phon e Number [facility] NON-INTERFACED (ONBASE SCANS) Treponema Pallidum Antibody (RPR) (External Result) (11/08/2021 3:09 PM CDT) Patholo gist Method Time Signature Treponema Non Reactive NON REACTIVE NON-INTERFAC [place] ED (ONBASE Antibody SCANS) (RPR) (External) Specimen (Source) Anatomical Collection Method Collection Time Re ceived Time Location / / Volume Laterality 11/08/2021 3:09 PM CDT Narrative [facility] - 12/06/2021 2:00 PM CDT Verified by Chuyita Ly on . Kimberly Ramsay MD LAB - HIM EXTERNAL RESULT Performing Organization Address City/[facility]/ZIP Code Phon e Number [facility] NON-INTERFACED (ONBASE SCANS) Hepatitis B Surface Antigen (External Result) (11/08/2021 3:09 PM CDT) athologist Signature Hepatitis B NEG NEGATIVE NON-INTERFACED Surface Antigen (ONBASE SCANS) (External) Specimen (Source) Anatomical Collection Method Collection Time Re ceived Time Location / / Volume Laterality 11/08/2021 3:09 PM CDT Narrative [facility] - 12/06/2021 2:00 PM CDT Verified by Chuyita Ly on . Kimberly Ramsay MD LAB - HIM EXTERNAL RESULT Performing Organization Address [facility] Code Phon e Number [facility] NON-INTERFACED (ONBASE SCANS) Chlamydia Trachomatis PCR (External Result) (11/08/2021 3:09 PM CDT) [facility] gist Method Time Signature Chlamydia Negative NEGATIVE NON-INTERFACE Trachomatis PCR D (ONBASE SCANS) Specimen (Source) Anatomical Collection Method Collection Time Re ceived Time Location / / Volume Laterality 11/08/2021 3:09 PM CDT Narrative [facility] - 12/06/2021 1:53 PM CDT Verified by Chuyita Ly on . Kimberly Ramsay MD LAB - HIM EXTERNAL RESULT Performing Organization Address [facility] Code Phon e Number [facility] NON-INTERFACED (ONBASE SCANS) Hepatitis C Antibody (External Result) (11/08/2021 3:09 PM CDT) athologist Signature Hepatitis C <0.1 0.0 - 0.9 NON-INTERFACED Antibody (ONBASE SCANS) (External) Specimen (Source) Anatomical Collection Method Collection Time Re ceived Time Location / / Volume Laterality 11/08/2021 3:09 PM CDT Narrative [facility] - 12/06/2021 1:53 PM CDT Verified by Chuyita Ly on . Kimberly Ramsay MD LAB - HIM EXTERNAL RESULT Performing Organization Address City/[facility]/ZIP Code Phon e Number [facility] NON-INTERFACED (ONBASE SCANS) Gonorrhea (External Result) (11/08/2021 3:09 PM CDT) P athologist Signature N Gonorrhea Negative NEGATIVE NON-INTERFACE PCR D (ONBASE SCANS) Specimen (Source) Anatomical Collection Method Collection Time Re ceived Time Location / / Volume Laterality 11/08/2021 3:09 PM CDT Narrative [facility] - 12/06/2021 1:53 PM CDT Verified by Chuyita Ly on . Kimberly Ramsay MD LAB - HIM EXTERNAL RESULT Performing Organization Address City/[facility]/ZIP Code Phon e Number [facility] NON-INTERFACED (ONBASE SCANS) Urine Culture (OB External Result) (11/08/2021 3:09 PM CDT) Patholo gist Method Time Signature Urine Culture OB See scanned NON-INTERFA C Nurse reuslt. ED (ONBASE Interpretation SCANS) (External Result) Specimen (Source) Anatomical Collection Method Collection Time Re ceived Time Location / / Volume Laterality 11/08/2021 3:09 PM CDT Narrative [facility] - 12/06/2021 1:52 PM CDT Verified by Porsha Maria on 11/18. Provider Outside LAB - HIM EXTERNAL RESULT Performing Organization Address City/[facility]/ZIP Code Phon e Number [facility] NON-INTERFACED (ONBASE SCANS) documented in this encounter Visit Diagnoses Not on filedocumented in this encounter Additional Health Concerns Assessment Noted Time PHQ-9 Depression Total Score: 2 01/26/2019 11:18 AM CD T documented as of this encounter Care Teams Fur Feeder Relationship Specialty Start Date End Date Justin Loya MD PCP - General Family Practice 02/19/11 [facility] [address] [place] [phone] Silas Santiago MD MD Pain Clinic 11/29/13 [facility] [address] [facility] [place] [address] Caden Leone, Assigned Surgical Provider 07/20 01/08 MD [address] [place], [place] [id number] Liam Thomas MD Assigned OBGYN Provider 12/08/21 02/14/[address] [place] [address] [address] [place] [address] documented as of this encounter
--- OUTSIDE RECORDS SUMMARY | 2022-06-23 17:40 | XMS_ITS | Encounter Summary ---
:1990 Author Organization [place] Address [address] [facility] [place] [address] Care Team Providers Name Role Phone Justin Loya MD Primary Care Provider Silas Santiago MD Unavailable Caden Leone MD Unavailable [phone] Reason for Visit Diagnostic Imaging Mammo (Routine) - Closed Specialty Diagnoses / Procedures Referred By Contact Refer red To Contact Diagnoses Breast pain, right Meche Monzon APRN Procedures MA Diagnostic Bilateral w/Kam [employer] [address] [place] [address] [address] [place] [address] Referral ID Status Reason Start Date Expiration Date Visits Requ ested Visits Authorized [id number] Closed 09/19/2021 09/19/2022 1 1 Encounter Details Date Type Department Care Team Description 10/01/2021 Hospital Encounter [facility], [address] pain, right [facility] SANDY Mcgregor [address], [employer] [address], [place] [address] [address] [place] [address] [phone] Social History Tobacco Use Types Packs/Day Years [...] as of this encounter Visit Diagnoses Diagnosis Breast pain, right Mastodynia documented in this encounter Additional Health Concerns Assessment Noted Time PHQ-9 Depression Total Score: 2 01/26/2019 11:18 AM CD T documented as of this encounter Care Teams Assistant Professor Of Sociology Relationship Specialty Start Date End Date Justin Loya MD PCP - General Family Practice 02/19/11 [facility] [address] [place] [phone] Silas Santiago MD MD Pain Clinic 11/29/13 [facility] [address] [place], [place] [id number] Caden Leone, Assigned Surgical Provider 07/20 01/08 [address] [place], [place] [id number] documented as of this encounter
--- OUTSIDE RECORDS SUMMARY | 2022-06-23 17:40 | XMS_ITS | Encounter Summary ---
:1990 Author Organization [facility] Address [address] [place] [address] Care Team Providers Name Role Phone Justin Loya MD Primary Care Provider Silas Santiago MD Unavailable Caden Leone MD Unavailable [phone] Encounter Details Date Type Department Care Team Description 03/12/2022 Hospital Encounter [facility]ly art, [facility] [address] [facility] [address] [place] [address] [place] [phone] [address] Social History Tobacco Use Types Packs/Day [...] Reading Time Taken Comments Blood Pressure 123/72 03/12/2022 5:35 PM CDT Pulse - - Temperature 37.2 ??C (99 ??F) 03/12/2022 5:35 PM CDT Respiratory Rate 16 03/12/2022 5:35 PM CDT Oxygen Saturation - - Inhaled Oxygen Concentration - - Weight - - Height - - Body Mass Index - - documented in this encounter Discharge Instructions Discharge InstructionsMaris Rivera RN - 03/12/2022 6:41 PM CDT Discharge Instruction for Undelivered Patients You were seen for: Membrane Assessment We Consulted: Dr Ramsay You had (Test or Medicine): and uterine monitoring, UA, ROM plus Diet: You may eat meals and snacks. Activity: Call your doctor or nurse power equipment technology instructor if your baby is moving less than [...] encounter Miscellaneous Notes Plan of Care - Maris Rivera RN - 03/12/2022 6:55 PM CDT Pt discharged home in stable condition. Discharge instructions and paperwork given. Questions answered. Pt states understanding. Provider Notification - Maris Rivera RN - 03/12/2022 6:[address] Ramsay notified via phone of pt's lab results, toco and fhr. New orders received to discharge pthome. Provider Notification - Maris Rivera RN - 03/12/2022 5:[address] Ramsay notified via phone of pt's arrival, S/S, toco, fht and VS. New orders received to do a ROM plus and a UA. Pt updated on POC. Plan of Care - Maris Rivera RN - 03/12/2022 5:42 PM CDT Pt arrives to triage from home. She states she couldn't call her OB prior to her arrival because it was an emergency. She states she noticed a wet spot on her underwear at approx 0900 today and then thought her underwear were wet this afternoon as well. She states she didn't have to wear a pad or change her underwear. She also feels like she might be jyotsna and she's been really stressed recently because her might be switching jobs and she's stressed about being stressed. Verbal consentreceived to place external monitors. reviewed. Pt's supportive at bedside. documented in this encounter Plan of Treatment Not on filedocumented as of this encounter Procedures Procedure Name Priority Date/Time Associated Comments Diagnosis RUPTURE OF STAT 03/12/2022 5:54 PM Resul ts for this MEMBRANES BY ROM PLUS CDT proced ure are in the results section. ROUTINE UA WITH STAT 03/12/2022 5:54 PM Result s for this MICROSCOPIC REFLEX TO CDT proced ure are in CULTURE the results section. documented in this encounter Results UA with Microscopic reflex to Culture (03/12/2022 5:54 PM CDT) [facility] Method Time Signature Color Urine Straw Colorless, 03/12/2022 LABORATORY Straw, Light 6:22 PM CDT Yellow, Yellow Appearance Urine Clear Clear 03/12/2022 LABORATOR Y 6:22 PM CDT Glucose Urine Negative Negative 03/12/2022 LABORATORY mg/dL 6:22 PM CDT Bilirubin Urine Negative Negative 03/12/2022 LABORATORY 6:22 PM CDT Ketones Urine Negative Negative 03/12/2022 LABORATORY mg/dL 6:22 PM CDT Specific [place] 1.008 1.003 - 03/12/2022 LABORATOR Y Urine 1.035 6:22 PM CDT Blood Urine Negative Negative 03/12/2022 LABORATORY 6:22 PM CDT pH Urine 6.0 5.0 - 7.0 03/12/2022 LABORATORY 6:22 PM CDT Protein Albumin Negative Negative 03/12/2022 LABORATORY Urine mg/dL 6:22 PM CDT Urobilinogen Normal Normal, 2.0 03/12/2022 LABORATORY Urine mg/dL 6:22 PM CDT Nitrite Urine Negative Negative 03/12/2022 LABORATORY 6:22 PM CDT Leukocyte Negative Negative 03/12/2022 LABORATORY Esterase Urine 6:22 PM CDT RBC Urine 1 <=2 /HPF 03/12/2022 LABORATORY 6:22 PM CDT WBC Urine 0 <=5 /HPF 03/12/2022 LABORATORY 6:22 PM CDT Squamous 1 <=1 /HPF 03/12/2022 LABORATORY Epithelials 6:22 PM CDT Urine Specimen Anatomical Collection Method Collection Time Receive d Time (Source) Location / / Volume Laterality Urine URINE SPECIMEN Non-blood 03/12/2022 5:54 PM 022 6:07 OBTAINED BY CLEAN Collection / CDT PM CDT CATCH PROCEDURE / Unknown Unknown Narrative LABORATORY - 03/12/2022 6:22 PM CDT Urine Culture not indicated Kimberly Ramsay MD LAB - URINE ORDERABLES Performing Organization Address City/[facility]/ZIP Code Phon e Number [place]ORATORY [place] [address] Care Lab [address] 1[address] floor, [address] Rupture of Membranes by ROM Plus (03/12/2022 5:54 PM CDT) [facility] Method Time Signature Rupture of Negative Negative, CARLOS 03/12/2022 LABORATORY Invalid, 6:29 PM CDT Membranes by Suggest ROM Plus Repeat Specimen Anatomical Collection Method Collection Time Receive d Time (Source) Location / / Volume Laterality Swab VAGINAL STRUCTURE Non-blood 03/12/2022 5:54 PM 02/18 6:07 / Unknown Collection / CDT PM CDT Unknown Narrative LABORATORY - 03/12/2022 6:29 PM CDT It is recommended that the tests to dete ct rupture of the amniotic membranes should not be used without other clinical asses sments to make clinical patient management decision. Kimberly Ramsay MD LAB - BODY FLUIDS ORDERABLES Performing Organization Address City/[facility]/ZIP Code Phon e Number [place]ATORY [place] [address] Care Lab [address], [address] documented in this encounter Visit Diagnoses Diagnosis Labor and delivery indication for care o r intervention Unspecified indication for care or inter vention related to labor and delivery, unspecified as to episode of care documented in this encounter Admitting Diagnoses Diagnosis Labor and delivery indication for care o [...] 6 HOURS PRN, nausea, vomiting, Starting on Thu03/12/22 at 1731, This is Step 1 of OB nausea and vomiting management. If nausea is not resolved in 30 minutes, go to Step 2 (Zofran). Avoid use if patient has full bowel obstruction or perforati on. Irritant., OB Preadmission metoclopramide (REGLAN) tablet 10 mg 10 mg, Oral, EVERY 6 HOURS PRN, nausea and vomiting, S tarting on Thu03/12/22 at 1731, This is Step 1 of OB nausea and vomiting managem ent. If nausea is not resolved in 30 minutes, go to Step 2 (Zo yodit) Avoid use if patient has full bowel obstruction or perforation., OB Preadmission ondansetron (ZOFRAN ODT) ODT tab 4 mg 4 mg, Oral, EVERY 6 HOURS PRN, nausea, v omiting, Starting on Thu03/12/22 at 1731, This is Step 2 of OB nausea [...] , Administer over 2-5 Minutes, Starting on Thu03/12/22 at 1731 , This is Step 2 of OB nausea and vomiting management. Give if nausea not resolved 30 minutes aft er giving metoclopramide (REGLAN). If nausea is not resolved in 15 minutes, go to Step 3 (Compazine). Irritant., OB Preadmission prochlorperazine (COMPAZINE) injection 1 0 mg 10 mg, Intravenous, EVERY 6 HOURS PRN, n ausea, vomiting, Administer over 2 Minutes, Starting on Thu03/12/22 at 1731, This is Step 3 of OB nausea and vomiting management. Give if nausea not resolved 15 minutes aft er giving ondansetron (ZOFRAN). If nausea is not resolved in 30 minutes, not gracy provider., OB Preadmission prochlorperazine (COMPAZINE) suppository 25 mg 25 mg, Rectal, EVERY 12 HOURS PRN, nausea, vomiting, S tarting on Thu03/12/22 at 1731, This is Step 3 of OB nausea and vomiting managem ent. Give if nausea not resolved 15 minutes after giving ondanse mao (ZOFRAN). If nausea is not resolved in 30 minutes, notify provider., OB Preadmission prochlorperazine (COMPAZINE) tablet 10 m g 10 mg, Oral, EVERY 6 HOURS PRN, nausea, vomiting, Starting on Thu03/12/22 at 1731, This is Step 3 of OB nausea and vomiting management. Give if nausea not resolved 15 minutes after giving ondansetron (ZOFRAN ). If nausea is not resolved in 30 minutes, notify provider., OB Preadmission documented in this encounter Active and Recently Administered Medications Times are shown in CDT. PRN Medication Order 03/10/2022 03/11/2022 03/12/2022 metoclopramide (REGLAN) injection 10 mg(Linked Group 1) 10 mg, Intravenous, Administer over 2 Mi nutes, EVERY 6 HOURS PRN, nausea, vomiting, Starting on Thu03/12/22 at 1731, This is Step 1 of OB nausea and vomiting management. If nausea is not resolved in 30 minutes, go to Step 2 (Zofran). Avoid us e if patient has full bowel obstruction or perforation. Irritant., OB Preadmission metoclopramide (REGLAN) tablet 10 mg(Linked Group 1) 10 mg, Oral, EVERY 6 HOURS PRN, nausea a nd vomiting, Starting on Thu03/12/22 at 1731, This is Step 1 of OB nausea and vomiting management. If nausea is not resolved in 30 minutes, go to Step 2 (Zofran) Avoid use if patient has full bowel obst ruction or perforation., OB Preadmission ondansetron (ZOFRAN ODT) ODT tab 4 mg(Linked Group 2) 4 mg, Oral, EVERY 6 HOURS PRN, nausea, v omiting, Starting on Thu03/12/22 at 1731, This is Step 2 of OB nausea [...] vomiting, Administer over 2-5 Minutes, Starting on Thu03/12/22 at 1731, This is Step 2 of OB nausea and vomiting management. Give if nausea not resolved 30 minutes after giving metoclopramide (REG ROSANGELA). If nausea is not resolved in 15 minutes, go to Step 3 (Compazine). Irritant., OB Preadmission prochlorperazine (COMPAZINE) injection 10 mg(Linked Group 3) 10 mg, Intravenous, EVERY 6 HOURS PRN, n ausea, vomiting, Administer over 2 Minutes, Starting on Thu03/12/22 at 1731, This is Step 3 of OB nausea and vomiting management. Give if nausea not resolved 15 m inutes after giving ondansetron (ZOFRAN) . If nausea is not resolved in 30 minutes, notify provider., OB Preadmission prochlorperazine (COMPAZINE) suppository 25 mg(Linked Group 3) 25 mg, Rectal, EVERY 12 HOURS PRN, nause a, vomiting, Starting on Thu03/12/22 at 1731, This is Step 3 of OB nausea and vomiting management. Give if nausea not resolved 15 minutes after giving ondansetron (ZOFRAN). If nausea is not resolved in 30 minutes, notify provider., OB Preadmission prochlorperazine (COMPAZINE) tablet 10 mg(Linked Group 3) 10 mg, Oral, EVERY 6 HOURS PRN, nausea, vomiting, Starting on Thu03/12/22 at 1731, This is Step 3 of OB nausea and vomiting management. Give if nausea not resolved 15 minutes after giving ondansetron (Z OFRAN). If nausea is not resolved in 30 minutes, notify provider., OB Preadmission Linked Groups Order Group 1: metoclopramide (REGLAN) injection 10 mgJump to med 10 mg, Intravenous, Administer over 2 Mi nutes, EVERY 6 HOURS PRN, nausea, vomiting, Starting on Thu03/12/22 at 1731
This is Step 1 of OB nausea and vomiting management. If na usea is not resolved in 30 minutes, go t o Step 2 (Zofran). Avoid use if patient has full bowel obstruction or perforation. Irritant.
OB Preadmission Or metoclopramide (REGLAN) tablet 10 mgJump to med 10 mg, Oral, EVERY 6 HOURS PRN, nausea a nd vomiting, Starting on Thu03/12/22 at 1731
This is Step 1 of OB nausea and vomiting management. If nausea is not resolved in 30 raphael sophia, go to Step 2 (Zofran) Avoid us e if patient has full bowel obstruction or perforation.
OB Preadmission Group 2: ondansetron (ZOFRAN ODT) ODT tab 4 mgJump to med 4 mg, Oral, EVERY 6 HOURS PRN, nausea, v omiting, Starting on Thu03/12/22 at 1731
This is Step 2 of OB nausea [...] vomiting, Administer over 2-5 Minutes, Starting on Thu03/12/22 at 1731
This is Step 2 of OB nausea and vomiting management. Give if nausea not resolved 30 minutes after giving metoclopramide (REGLAN). If nausea is not resolved in 15 minutes, go to Step 3 (Compazine). Irritant.
OB Preadmission Group 3: prochlorperazine (COMPAZINE) injection 10 mgJump to med 10 mg, Intravenous, EVERY 6 HOURS PRN, n ausea, vomiting, Administer over 2 Minutes, Starting on Thu03/12/22 at 1731
This is Step 3 of OB nausea and vomiting management. Give if nausea not resol ching 15 minutes after giving ondansetron (ZOFRAN). If nausea is not resolved in 30 minutes, notify provider.
OB Preadmission Or prochlorperazine (COMPAZINE) tablet 10 mgJump to med 10 mg, Oral, EVERY 6 HOURS PRN, nausea, vomiting, Starting on Thu03/12/22 at 1731
This is Step 3 of OB nausea and vomiting management. Give if nausea not resolved 15 minutes after giving ondans etron (ZOFRAN). If nausea is not resolve d in 30 minutes, notify provider.
OB Preadmission Or prochlorperazine (COMPAZINE) suppository 25 mgJump to med 25 mg, Rectal, EVERY 12 HOURS PRN, nause a, vomiting, Starting on Thu03/12/22 at 1731
This is Step 3 of OB nausea and vomiting management. Give if nausea not resolved 15 minutes after giving ond ansetron (ZOFRAN). If nausea is not reso lved in 30 minutes, notify provider.
OB Preadmission documented in this encounter Additional Health Concerns Assessment Noted Time PHQ-9 Depression Total Score: 2 01/26/2019 11:18 AM CD T documented as of this encounter Care Teams History Instructor Relationship Specialty Start Date End Date Justin Loya MD PCP - General Family Practice 02/19/11 [facility] [address] [place] [phone] Silas Santiago MD MD Pain Clinic 11/29/13 [facility] [address] [address] Caden Leone, Assigned Surgical Provider 07/20 01/08 [place] [address] documented as of this encounter
--- OUTSIDE RECORDS SUMMARY | 2022-06-23 17:40 | XMS_ITS | Encounter Summary ---
:1990 Author Organization [place] Address [address] [place] [address] Care Team Providers Name Role Phone Justin Loya MD Primary Care Provider Silas Santiago MD Unavailable Caden Leone MD Unavailable [phone] Reason for Visit Reason Comments Labor Encounter Details Date Type Department Care Team Description 03/[facility]2022 [facility] [address] [place] [id number] [facility] Faith Pearson MD [address] [address] [address], [address] [place] [address] Social History Tobacco Use Types [...] Sign Reading Time Taken Comments Blood Pressure 117/64 03/07/2022 10:20 AM CDT Pulse - - Temperature 36.7 ??C (98 ??F) 03/07/2022 10:20 AM CDT Respiratory Rate 16 03/07/2022 10:20 AM CDT Oxygen Saturation - - Inhaled Oxygen Concentration - - Weight - - Height - - Body Mass Index - - documented in this encounter Discharge Instructions Discharge InstructionsCee Gilliland RN - 03/07/2022 11:03 AM CDT Discharge Instruction for Undelivered Patients You were seen for: Labor Assessment We Consulted: Dr. Heath You had (Test or Medicine): and Uterine monitoring Diet: Drink 8 to 12 glasses of liquids (milk, juice, water) every day. Activity: Call your doctor or nurse corrosion technician if your baby is moving less than [...] this encounter Miscellaneous Notes Provider Notification - Cee Gilliland RN - 03/07/2022 10:58 AM CDT 03/07/22 1057 Provider Notification Provider Name/Title Kumar Desir Method of Notification Phone Request Evaluate - Remote Notification Reason Status Update Telephone call to Dr Heath-updated on patients arrival, patients complaints of irregular uterine cramping/jyotsna overnight. Monitored patient for 30 minutes and palpated abdomen. Abdomen palpatessoft. No contractions or irritability picks up on TOCO. monitoring appropriate for gesational a ge.Patient very apprehensive to have a cervical exam. Did not do SVE. Patient has an OB appt with Dr. Aguilar at 1330 today. Orders to discharge patient to home. Plan of Care - Cee Gilliland RN - 03/07/2022 10:25 AM CDT Patient presents to [facility] stating that she started having irregular contractions last night. Denies any leaking or bleeding. Feels movement. Verbal permission given to apply external monitors. HX and VS taken. documented in this encounter Plan of Treatment Not on filedocumented as of this encounter Visit Diagnoses Diagnosis Indication for [...] 6 HOURS PRN, nausea, vomiting, Starting on Thu03/07/22 at 1011, This is Step 1 of OB nausea and vomiting management. If nausea is not resolved in 30 minutes, go to Step 2 (Zofran). Avoid use if patient has full bowel obstruction or perforati on. Irritant., OB Preadmission metoclopramide (REGLAN) tablet 10 mg 10 mg, Oral, EVERY 6 HOURS PRN, nausea and vomiting, S tarting on Thu03/07/22 at 1011, This is Step 1 of OB nausea and vomiting managem ent. If nausea is not resolved in 30 minutes, go to Step 2 (Zo yodit) Avoid use if patient has full bowel obstruction or perforation., OB Preadmission ondansetron (ZOFRAN ODT) ODT tab 4 mg 4 mg, Oral, EVERY 6 HOURS PRN, nausea, v omiting, Starting on Thu03/07/22 at 1011, This is Step 2 of OB nausea [...] , Administer over 2-5 Minutes, Starting on Thu03/07/22 at 1011 , This is Step 2 of OB nausea and vomiting management. Give if nausea not resolved 30 minutes aft er giving metoclopramide (REGLAN). If nausea is not resolved in 15 minutes, go to Step 3 (Compazine). Irritant., OB Preadmission prochlorperazine (COMPAZINE) injection 1 0 mg 10 mg, Intravenous, EVERY 6 HOURS PRN, n ausea, vomiting, Administer over 2 Minutes, Starting on Thu03/07/22 at 1011, This is Step 3 of OB nausea and vomiting management. Give if nausea not resolved 15 minutes aft er giving ondansetron (ZOFRAN). If nausea is not resolved in 30 minutes, not rgacy provider., OB Preadmission prochlorperazine (COMPAZINE) suppository 25 mg 25 mg, Rectal, EVERY 12 HOURS PRN, nausea, vomiting, S tarting on Thu03/07/22 at 1011, This is Step 3 of OB nausea and vomiting managem ent. Give if nausea not resolved 15 minutes after giving ondanse mao (ZOFRAN). If nausea is not resolved in 30 minutes, notify provider., OB Preadmission prochlorperazine (COMPAZINE) tablet 10 m g 10 mg, Oral, EVERY 6 HOURS PRN, nausea, vomiting, Starting on Thu03/07/22 at 1011, This is Step 3 of OB nausea and vomiting management. Give if nausea not resolved 15 minutes after giving ondansetron (ZOFRAN ). If nausea is not resolved in 30 minutes, notify provider., OB Preadmission documented in this encounter Active and Recently Administered Medications Times are shown in CDT. PRN Medication Order 03/05/2022 03/06/2022 03/07/2022 metoclopramide (REGLAN) injection 10 mg(Linked Group 1) 10 mg, Intravenous, Administer over 2 Mi nutes, EVERY 6 HOURS PRN, nausea, vomiting, Starting on Thu03/07/22 at 1011, This is Step 1 of OB nausea and vomiting management. If nausea is not resolved in 30 minutes, go to Step 2 (Zofran). Avoid us e if patient has full bowel obstruction or perforation. Irritant., OB Preadmission metoclopramide (REGLAN) tablet 10 mg(Linked Group 1) 10 mg, Oral, EVERY 6 HOURS PRN, nausea a nd vomiting, Starting on Thu03/07/22 at 1011, This is Step 1 of OB nausea and vomiting management. If nausea is not resolved in 30 minutes, go to Step 2 (Zofran) Avoid use if patient has full bowel obst ruction or perforation., OB Preadmission ondansetron (ZOFRAN ODT) ODT tab 4 mg(Linked Group 2) 4 mg, Oral, EVERY 6 HOURS PRN, nausea, v omiting, Starting on Thu03/07/22 at 1011, This is Step 2 of OB nausea [...] vomiting, Administer over 2-5 Minutes, Starting on Thu03/07/22 at 1011, This is Step 2 of OB nausea and vomiting management. Give if nausea not resolved 30 minutes after giving metoclopramide (REG ROSANGELA). If nausea is not resolved in 15 minutes, go to Step 3 (Compazine). Irritant., OB Preadmission prochlorperazine (COMPAZINE) injection 10 mg(Linked Group 3) 10 mg, Intravenous, EVERY 6 HOURS PRN, n ausea, vomiting, Administer over 2 Minutes, Starting on Thu03/07/22 at 1011, This is Step 3 of OB nausea and vomiting management. Give if nausea not resolved 15 m inutes after giving ondansetron (ZOFRAN) . If nausea is not resolved in 30 minutes, notify provider., OB Preadmission prochlorperazine (COMPAZINE) suppository 25 mg(Linked Group 3) 25 mg, Rectal, EVERY 12 HOURS PRN, nause a, vomiting, Starting on Thu03/07/22 at 1011, This is Step 3 of OB nausea and vomiting management. Give if nausea not resolved 15 minutes after giving ondansetron (ZOFRAN). If nausea is not resolved in 30 minutes, notify provider., OB Preadmission prochlorperazine (COMPAZINE) tablet 10 mg(Linked Group 3) 10 mg, Oral, EVERY 6 HOURS PRN, nausea, vomiting, Starting on Thu03/07/22 at 1011, This is Step 3 of OB nausea and vomiting management. Give if nausea not resolved 15 minutes after giving ondansetron (Z OFRAN). If nausea is not resolved in 30 minutes, notify provider., OB Preadmission Linked Groups Order Group 1: metoclopramide (REGLAN) injection 10 mgJump to med 10 mg, Intravenous, Administer over 2 Mi nutes, EVERY 6 HOURS PRN, nausea, vomiting, Starting on Thu03/07/22 at 1011
This is Step 1 of OB nausea and vomiting management. If na usea is not resolved in 30 minutes, go t o Step 2 (Zofran). Avoid use if patient has full bowel obstruction or perforation. Irritant.
OB Preadmission Or metoclopramide (REGLAN) tablet 10 mgJump to med 10 mg, Oral, EVERY 6 HOURS PRN, nausea a nd vomiting, Starting on Thu03/07/22 at 1011
This is Step 1 of OB nausea and vomiting management. If nausea is not resolved in 30 raphael sophia, go to Step 2 (Zofran) Avoid us e if patient has full bowel obstruction or perforation.
OB Preadmission Group 2: ondansetron (ZOFRAN ODT) ODT tab 4 mgJump to med 4 mg, Oral, EVERY 6 HOURS PRN, nausea, v omiting, Starting on Thu03/07/22 at 1011
This is Step 2 of OB nausea [...] vomiting, Administer over 2-5 Minutes, Starting on Thu03/07/22 at 1011
This is Step 2 of OB nausea and vomiting management. Give if nausea not resolved 30 minutes after giving metoclopramide (REGLAN). If nausea is not resolved in 15 minutes, go to Step 3 (Compazine). Irritant.
OB Preadmission Group 3: prochlorperazine (COMPAZINE) injection 10 mgJump to med 10 mg, Intravenous, EVERY 6 HOURS PRN, n ausea, vomiting, Administer over 2 Minutes, Starting on Thu03/07/22 at 1011
This is Step 3 of OB nausea and vomiting management. Give if nausea not resol ching 15 minutes after giving ondansetron (ZOFRAN). If nausea is not resolved in 30 minutes, notify provider.
OB Preadmission Or prochlorperazine (COMPAZINE) tablet 10 mgJump to med 10 mg, Oral, EVERY 6 HOURS PRN, nausea, vomiting, Starting on Thu03/07/22 at 1011
This is Step 3 of OB nausea and vomiting management. Give if nausea not resolved 15 minutes after giving ondans etron (ZOFRAN). If nausea is not resolve d in 30 minutes, notify provider.
OB Preadmission Or prochlorperazine (COMPAZINE) suppository 25 mgJump to med 25 mg, Rectal, EVERY 12 HOURS PRN, nause a, vomiting, Starting on Thu03/07/22 at 1011
This is Step 3 of OB nausea and vomiting management. Give if nausea not resolved 15 minutes after giving ond ansetron (ZOFRAN). If nausea is not reso lved in 30 minutes, notify provider.
OB Preadmission documented in this encounter Additional Health Concerns Assessment Noted Time PHQ-9 Depression Total Score: 2 01/26/2019 11:18 AM CD T documented as of this encounter Care Teams Power System Engineer Relationship Specialty Start Date End Date Justin Loya MD PCP - General Family Practice 02/19/11 [facility] [id number] [facility] [place] [phone] Silas Santiago MD MD Pain Clinic 11/29/13 [facility] [address] [address] Caden Leone, Assigned Surgical Provider 07/20 01/08 MD [address] [place], [place] [address] documented as of this encounter
--- OUTSIDE RECORDS SUMMARY | 2022-06-23 17:40 | XMS_ITS | Encounter Summary ---
:1990 Author Organization [place] Address [facility] [place] [address] Care Team Providers Name Role Phone Justin Loya MD Primary Care Provider Silas Santiago MD Unavailable Caden Leone MD Unavailable [phone] Encounter Details Date Type Department Care Team Description 03/01/2022 Travel Social History Tobacco Use Types Packs/Day [...] documented as of this encounter Care Teams Gatehouse Attendant Relationship Specialty Start Date End Date Justin Loya MD PCP - General Family Practice 02/19/11 [facility] [address] [place] [phone] Silas Santiago MD MD Pain Clinic 11/29/13 [facility] [address] [place], [place] [address] Caden Leone, Assigned Surgical Provider 07/20 01/08 [place] [address] documented as of this encounter
--- OUTSIDE RECORDS SUMMARY | 2022-06-23 17:40 | XMS_ITS | Encounter Summary ---
:1990 Author Organization [place] Address [address] [place] [address] Care Team Providers Name Role Phone Justin Loya MD Primary Care Provider Silas Santiago MD Unavailable Caden Leone MD Unavailable [phone] Reason for Referral Diagnostic Imaging Ultrasound (Routine) - Pending Review Specialty Diagnoses / Procedures Referred By Contact Refer red To Contact Diagnoses related condition, antepartum [place] Vee MD Procedures Maternal Nuchal Translucency [address] [place], [place] [address] Referral ID Status Reason Start Date Expiration Date Visits V isits Requested Authorized [id number] Pending 10/09/2021 10/09/2022 1 1 Review Encounter Details Date Type Department Care Team Description 10/09/2021 Orders Only [facility] Chuyita Reza Pregn krystina related Maternal A, RN condition, [facility] ([facility] [place] [address] [place], [place] [address] Social History Tobacco Use Types Packs/Day Years [...] on filedocumented as of this encounter Results Maternal Nuchal Translucency (11/28/2021 [...] Study Date: 0 11/28/2021 10:53am Pat. NO: [id number] Referring ??: FANNY BRADSHAW Site: [facility] Animal Shelter Worker: Arie Haynes RDMS : 1990 Age: 30 [...] 06/15/2022 U/S ? 11/28/2021 ? based upon CRL ?12 w + 2 d ? 06/10/2022 [...] different from the original. NT Pat. Name:LINA HUFFHStudcely Date:11/17 10:53am Pat. NO: [id number] MD:MERCEDES BRADSHAW [facility]Arie Haynes RDMS :1990Age:30 INDICATION 1st Trimester Screening METHOD Transabdominal [...] wall. Stomach. Hazel Willis. MATERNAL STRUCTURES Uterus Visualized Position: retroverted Cervix Visualized Appearance: Appears Closed Right Ovary Not visualized Left Ovary Not visualized RECOMMENDATION We discussed the findings on today's uljennifer peña with the patient. See consultation letter for further coun seling. Return to primary provider for continued care. Thank-you for the opportunity to partici seda in [...] normal range. The nasal bone is present. [place] Vee MD [facility] US ORDERABLES documented in this encounter Visit Diagnoses Diagnosis related condition, antepartum - Primary related condition, antepartum documented in this encounter Additional Health Concerns Assessment Noted Time PHQ-9 Depression Total Score: 2 01/26/2019 11:18 AM CD T documented as of this encounter Care Teams Scrap Shear Operator Relationship Specialty Start Date End Date Justin Loya MD PCP - General Family Practice 02/19/11 [facility] [address] [place] [phone] Silas Santiago MD MD Pain Clinic 11/29/13 [facility] [address] [facility] [place] [id number] Caden Leone, Assigned Surgical Provider 07/20 01/08 MD Mike [address] [place], [place] [phone] documented as of this encounter
--- OUTSIDE RECORDS SUMMARY | 2022-06-23 17:40 | XMS_ITS | Encounter Summary ---
:1990 Author Organization [place] Address [address] [facility] [place] [address] Care Team Providers Name Role Phone Justin Loya MD Primary Care Provider Silas Santiago MD Unavailable Caden Leone MD Unavailable [phone] Reason for Visit Reason Comments Ultrasound NT-Hx Jugular vein thrombosi s, hx graves, POTS, hx back surgery and chiari malformation Consult MFM-Hx Jugular vein thrombos is, hx graves, POTS, hx back surgery and chiari malformation Encounter Details Date Type Department Care Team Description 11/22/2021 PRE VISIT [facility] Shania Jasso Ultraso und (NT-Hx Maternal Medicine RN Jugu lar vein thrombosis, [facility] hx graves, POTS, hx back [address] surgery and chiari [place], [place] [address] malformation); Consult [phone] (MFM-Hx Jugular vein thrombosis, hx graves, POTS, hx back s urgery and chiari malf ormation) Social History Tobacco Use Types Packs/Day Years [...] documented as of this encounter Care Teams Resolution Specialist Relationship Specialty Start Date End Date Justin Loya MD PCP - General Family Practice 02/19/11 [facility] [address] [place] [address] Silas Santiago MD MD Pain Clinic 11/29/13 [facility] [address] [place], [place] [address] Caden Leone, Assigned Surgical Provider 07/20 01/08 MD Mike [address]AKTA [place], [place] [address] documented as of this encounter
--- OUTSIDE RECORDS SUMMARY | 2022-06-23 17:40 | XMS_ITS | Encounter Summary ---
:1990 Author Organization [place] Address [address] [place] [address] Care Team Providers Name Role Phone Justin Loya MD Primary Care Provider Silas Santiago MD Unavailable Caden Leone MD Unavailable [phone] Encounter Details Date Type Department Care Team Description 08/16/2021 Medical Correspondence [facility] Scan, MATERNAL AND Health Info [facility] Non-Provider MEDICINE JORDI CONN Srs [facility] OBGYN [address] [place] [address] Social History Tobacco Use Types Packs/Day Years Used Date Smoking Tobacco: Never Smokeless Tobacco: Never Alcohol Use Standard Drinks/Week Comments No 0 (1 standard drink = 0.6 oz pure alcoho l) Sex Assigned at Date Recorded Not on file COVID-19 Exposure Response Date Recorded In the last month, have you been in contact with No / Unsure 08/03/2021 7:49 AM LACEWORKER someone who was confirmed or suspected to have Coronavirus / COVID-19? documented as of this encounter Plan of Treatment Not on filedocumented as of this encounter Visit Diagnoses Not on filedocumented in this encounter Additional Health Concerns Assessment Noted Time PHQ-9 Depression Total Score: 2 01/26/2019 11:18 AM CD T documented as of this encounter Care Teams Forepart Rasper Relationship Specialty Start Date End Date Justin Loya MD PCP - General Family Practice 02/19/11 [facility] [address] [place] [address] Silas Santiago MD MD Pain Clinic 11/29/13 [facility] [address] [place] [address] Caden Leone, Assigned Surgical Provider 07/20 01/08 [place] [address] documented as of this encounter
--- OUTSIDE RECORDS SUMMARY | 2022-06-23 17:41 | XMS_ITS | Encounter Summary ---
:1990 Author Organization [place] Address [facility] [place] [address] Care Team Providers Name Role Phone Justin Loya MD Primary Care Provider Silas Santiago MD Unavailable Silas Dean MD Unavailable Silas Jorge MD Unavailable Encounter Details Date Type Department Care Team Description 11/30/2020 Travel Social History Tobacco Use Types Packs/Day Years Used Date Smoking Tobacco: Never Smokeless Tobacco: Never Alcohol Use Standard Drinks/Week Comments No 0 (1 standard drink = 0.6 oz pure alcoho l) Sex Assigned at Date Recorded Not on file COVID-19 Exposure Response Date Recorded In the last month, have you been in contact with No / Unsure 11/30/2020 3:02 PM CDT someone who was confirmed or suspected to have Coronavirus / COVID-19? documented as of this encounter Plan of Treatment Not on filedocumented as of this encounter Visit Diagnoses Not on filedocumented in this encounter Additional Health Concerns Assessment Noted Time PHQ-9 Depression Total Score: 2 01/26/2019 11:18 AM CD T documented as of this encounter Care Teams Dryland Farmer Relationship Specialty Start Date End Date Justin Loya MD PCP - General Family Practice 02/19/11 [facility] [address] [place] [phone] Silas Santiago MD MD Pain Clinic 11/29/13 [facility] [address] [place], [place] [address] Silas Dean, Assigned Neuroscience 05/11/20 03/02/21 MD Provider [address] [place] [address] [id number] [place], [place] [address] Silas Jorge MD Assigned Surgical Provider 05/11/[address] [place] [id number] documented as of this encounter
--- OUTSIDE RECORDS SUMMARY | 2022-06-23 17:41 | XMS_ITS | Encounter Summary ---
:1990 Author Organization [place] Address [address] [facility] [place] [address] Care Team Providers Name Role Phone Justin Loya MD Primary Care Provider Silas Santiago MD Unavailable Encounter Details Date Type Department Care Team Description 08/03/2021 Travel Social History Tobacco Use Types Packs/Day Years Used Date Smoking Tobacco: Never Smokeless Tobacco: Never Alcohol Use Standard Drinks/Week Comments No 0 (1 standard drink = 0.6 oz pure alcoho l) Sex Assigned at Date Recorded Not on file COVID-19 Exposure Response Date Recorded In the last month, have you been in contact with No / Unsure 08/03/2021 7:49 AM CONSULTANT DIETITIAN someone who was confirmed or suspected to have Coronavirus / COVID-19? documented as of this encounter Plan of Treatment Not on filedocumented as of this encounter Visit Diagnoses Not on filedocumented in this encounter Additional Health Concerns Assessment Noted Time PHQ-9 Depression Total Score: 2 01/26/2019 11:18 AM CD T documented as of this encounter Care Teams Appraiser Boats And Marine Relationship Specialty Start Date End Date Justin Loya MD PCP - General Family Practice 02/19/11 [facility] [address] [place] [phone] Silas Santiago MD MD Pain Clinic 11/29/13 [facility] [address] [place] [address] documented as of this encounter
--- OUTSIDE RECORDS SUMMARY | 2022-06-23 17:41 | XMS_ITS | Encounter Summary ---
:1990 Author Organization [place] Address [address] [facility] [address] Care Team Providers Name Role Phone Justin Loya MD Primary Care Provider Silas Santiago MD Unavailable Silas Dean MD Unavailable Silas Jorge MD Unavailable Reason for Referral Diagnostic Imaging Ultrasound (Routine) - Closed Specialty Diagnoses / Procedures Referred By Contact Refer red To Contact Radiology. Diagnoses Acute embolism and thrombosis of vein of left upper extremity Johan Pollard MD Rh Ultrasound Procedures US Upper Extremity Venous Duplex Left [place] [facility] [address] [place], [place] [address] [place] [address] Referral ID Status Reason Start Date Expiration Date Visits Requ ested Visits Authorized [id number] Closed 11/30/2020 11/30/2021 1 1 Reason for Visit Diagnostic Imaging Ultrasound (Routine) - Closed Specialty Diagnoses / Procedures Referred By Contact Refer red To Contact Radiology. Diagnoses Acute embolism and thrombosis of vein of left upper extremity Johan Pollard MD Rh Ultrasound Procedures US Upper Extremity Venous Duplex Left [place] [facility] [address] [place] [facility] [place] [address] [place] [address] Referral ID Status Reason Start Date Expiration Date Visits Requ ested Visits Authorized [id number] Closed 11/30/2020 11/30/2021 1 1 Encounter Details Date Type Department Care Team Description 11/30/2020 Hospital Encounter [facility] Johan Pollard Acut e embolism and [facility] MD Ah[place] thrombosis of vein [address] [place] [facility] of left upper [place], [place] [address] [address] [address] [facility] [address] [place] [address] Social History Tobacco Use Types [...] Sig Dispensed Refills Start Date End Date Acetaminophen 325 MG CAPS Take 325-650 mg by 0 08/01/2021 mouth every 4 hours as needed carBAMazepine (TEGRETOL Take 1 tablet (100 60 tablet 2 08/2008/01/2021 XR) 100 MG 12 hr mg) by mouth 2 tabletIndications: Facial times daily pain enoxaparin ANTICOAGULANT 0 08/01/2021 (LOVENOX ANTICOAGULANT) 40 MG/0.4ML syringe ibuprofen (ADVIL/MOTRIN) Take 3 tablets (600 30 tablet 0 08/01/2021 200 MG tablet mg) by mouth every 8 hours as needed for mild pain methimazole (TAPAZOLE) 5 0 08/01/2019 08/01/2021 MG tablet oxyCODONE (ROXICODONE) 5 Take 5 mg by mouth 0 08/01/2021 MG tablet every 6 hours as needed for severe pain sucralfate (CARAFATE) 1 Take 10 mLs (1 g) 420 mL 0 11/2008/01/2021 GM/10ML suspension by mouth 4 times daily documented as of this encounter Plan of Treatment Not on filedocumented as of this encounter Procedures Procedure Name Priority Date/Time Associated Diagnosis Comme nts US UPPER EXTREMITY Routine 11/30/2020 3:46 PM Acute embolism a nd Results for this VENOUS DUPLEX LEFT CDT thrombosis of vein pro cedure are in of left upper the results extremity section. documented in this encounter Results US Upper Extremity Venous Duplex Left (11/30/2020 3:46 PM CDT) Anatomical Region Laterality Modality Extremity Ultrasound Specimen (Source) Anatomical Location Collection Method / Collectio n Time Received Time / Laterality Volume Impressions 11/30/2020 4:02 PM CDT IMPRESSION: Negative for deep venous thrombosis in the left upper extremity. GONZALES SALAZAR MD Narrative 11/30/2020 4:02 PM CDT US UPPER EXTREMITY VENOUS DUPLEX LEFT ??11/30/2020 3:46 PM HISTORY: Acute embolism and thrombosis o f vein of left upper extremity. COMPARISON: 2019 TECHNIQUE: Color Doppler and spectral wa veform analysis performed throughout the deep and superficial vein s of the left upper extremity. FINDINGS: The left internal jugular, sub clavian, axillary, and brachial veins demonstrate normal blood flow, compression (where applicable), and augmentation. Basilic, radial, ulnar, and cephalic veins are patent. Procedure Note Gonzales Salazar MD - 11/30/2020 US UPPER EXTREMITY VENOUS DUPLEX LEFT 3:46 PM HISTORY: Acute embolism and thrombosis o f vein of left upper extremity. COMPARISON: 2019 TECHNIQUE: Color Doppler and spectral wa veform analysis performed throughout the deep and superficial vein s of the left upper extremity. FINDINGS: The left internal jugular, sub clavian, axillary, and brachial veins demonstrate normal blood flow, compression (where applicable), and augmentation. Basilic, radial, ulnar, and cephalic veins are patent. IMPRESSION: Negative for deep venous thr ombosis in the left upper extremity. GONZALES SALAZAR MD Johan Pollard MD IMG US ORDERABLES documented in this encounter Visit Diagnoses Diagnosis Acute embolism and thrombosis of vein of left upper extremity Acute venous embolism and thrombosis of upper extremity, unspecified documented in this encounter Additional Health Concerns Assessment Noted Time PHQ-9 Depression Total Score: 2 01/26/2019 11:18 AM CD T documented as of this encounter Care Teams Assembler Filters Relationship Specialty Start Date End Date Justin Loya MD PCP - General Family Practice 02/19/11 [facility] [address] [place] [phone] Silas Santiago MD MD Pain Clinic 11/29/13 [facility] [address] [place] [address] Silas Dean, Assigned Neuroscience 05/11/20 03/02/21 MD Provider [address] [place] [address] [id number] [place]IC[place], [place] [phone] Silas Jorge MD Assigned Surgical Provider 05/11/[address] [place] [phone] documented as of this encounter
--- OUTSIDE RECORDS SUMMARY | 2022-06-23 17:41 | XMS_ITS | Encounter Summary ---
:1990 Author Organization [place] Address [address] [facility] [place] [address] Care Team Providers Name Role Phone Justin Loya MD Primary Care Provider Silas Santiago MD Unavailable Silas Dean MD Unavailable Silas Jorge MD Unavailable Encounter Details Date Type Department Care Team Description 09/15/2020 Ancillary Procedure [facility] John Stapleton MD [address] [facility] [place] [address] [address] [phone] [facility] [address] [place], [place] [address] (Wo rk) Social History Tobacco Use Types Packs/Day Years Used Date Smoking Tobacco: Never Smokeless Tobacco: Never Alcohol Use Standard Drinks/Week Comments No 0 (1 standard drink = 0.6 oz pure alcoho l) Sex Assigned at Date Recorded Not on file COVID-19 Exposure Response Date Recorded In the last month, have you been in contact with No / Unsure 09/15/2020 10:14 AM JUNIOR ACCOUNTANT someone who was confirmed or suspected to have Coronavirus / COVID-19? documented as of this encounter Plan of Treatment Not on filedocumented as of this encounter Procedures Procedure Name Priority Date/Time Associated Diagnosis Comme nts POC US ABDOMEN STAT 09/15/2020 11:17 AM Result s for this LIMITED JUNIOR ACCOUNTANT procedure are i n the results section. documented in this encounter Results POC US ABDOMEN LIMITED (09/15/2020 11:17 AM JUNIOR ACCOUNTANT) Anatomical Region Laterality Modality Other Specimen (Source) Anatomical Location Collection Method / Collectio n Time Received Time / Laterality Volume Impressions 09/15/2020 11:17 AM JUNIOR ACCOUNTANT PROCEDURE NOTE --> Emergency Bedside Ultrasound Procedure Name: Limited abdominal/pelvis bedside ultrasound Preformed by: John Stapleton MD Indication - Abdominal Pain post C-secti on Probe: low frequency curvilinear probe Windows - Hepatorenal, suprapubic Findings - No intraperitoneal free fluid , small amount of anechoic fluid endometrial canal, no free fluid in the pelvis, no anechoic fluid collection along horizontal lower abdominal incision Impression -no evidence of intraperitone al free fluid or subcutaneous abscess Images saved to PACS per protocol John Stapleton MD IMG POCUS documented in this encounter Visit Diagnoses Not on filedocumented in this encounter Additional Health Concerns Assessment Noted Time PHQ-9 Depression Total Score: 2 01/26/2019 11:18 AM CD T documented as of this encounter Care Teams Rn Triage Relationship Specialty Start Date End Date Justin Loya MD PCP - General Family Practice 02/19/11 [facility] [address] [place] [address] Silas Santiago MD MD Pain Clinic 11/29/13 [facility] [address] [place], [place] [address] Silas Dean, Assigned Neuroscience 05/11/20 03/02/21 MD Provider [address] [place] [id number] [place], [place] [address] Silas Jorge MD Assigned Surgical Provider 05/11/[address] [place] [id number] documented as of this encounter
--- OUTSIDE RECORDS SUMMARY | 2022-06-23 17:41 | XMS_ITS | Encounter Summary ---
:1990 Author Organization [place] Address [address] [facility] [place] [address] Care Team Providers Name Role Phone Justin Loya MD Primary Care Provider Silas Santiago MD Unavailable Caden Leone MD Unavailable [phone] Liam Thomas MD Unavailable Encounter Details Date Type Department Care Team Description 08/03/2021 Documentation Only INTERFACED REPORT Unknown, Provider Social History Tobacco Use Types Packs/Day Years Used Date Smoking Tobacco: Never Smokeless Tobacco: Never Alcohol Use Standard Drinks/Week Comments No 0 (1 standard drink = 0.6 oz pure alcoho l) Sex Assigned at Date Recorded Not on file COVID-19 Exposure Response Date Recorded In the last month, have you been in contact with No / Unsure 08/03/2021 7:49 AM TECHNICAL SOLUTIONS CONSULTANT someone who was confirmed or suspected to have Coronavirus / COVID-19? documented as of this encounter Plan of Treatment Not on filedocumented as of this encounter Visit Diagnoses Not on filedocumented in this encounter Additional Health Concerns Assessment Noted Time PHQ-9 Depression Total Score: 2 01/26/2019 11:18 AM CD T documented as of this encounter Care Teams Brush Head Maker Relationship Specialty Start Date End Date Justin Loya MD PCP - General Family Practice 02/19/11 [facility] [address] [place] [phone] Silas Santiago MD MD Pain Clinic 11/29/13 [facility] [address] [place], [place] [address] Caden Leone, Assigned Surgical Provider 07/20 01/08 MD [address] [place], [place] [address] Liam Thomas MD Assigned OBGYN Provider 12/08/21 02/14/[address] [place], [place] [address] documented as of this encounter
--- OUTSIDE RECORDS SUMMARY | 2022-06-23 17:41 | XMS_ITS | Encounter Summary ---
:1990 Author Organization [place] Address [address] [facility] [place] [address] Care Team Providers Name Role Phone Justin Loya MD Primary Care Provider Silas Santiago MD Unavailable Silas Dean MD Unavailable Silas Jorge MD Unavailable Reason for Visit Reason Comments Post-op Problem Encounter Details Date Type Department Care Team Description [facility]; [employer] Emergency Dep t Acute post-operative pain; [address] [facility] Hematuria, unspecified type; [place], [place]aginal discharge [id number] [facility] [address] [place] [address] (Wo rk) Social History Tobacco Use Types Packs/Day Years Used Date Smoking Tobacco: Never Smokeless Tobacco: Never Alcohol Use Standard Drinks/Week Comments No 0 (1 standard drink = 0.6 oz pure alcoho l) Sex Assigned at Date Recorded Not on file COVID-19 Exposure Response Date Recorded In the last month, have you been in contact with No / Unsure 09/30/2020 5:31 PM CDT someone who was confirmed or suspected to have Coronavirus / COVID-19? documented as of this encounter Last Filed Vital Signs Vital Sign Reading Time Taken Comments Blood Pressure 117/71 09/30/2020 5:41 PM CDT Pulse 76 09/30/2020 5:41 PM CDT Temperature 35.9 ??C (96.7 ??F) 09/30/2020 5:41 PM CDT Respiratory Rate 16 09/30/2020 5:41 PM CDT Oxygen Saturation 97% 09/30/2020 5:41 PM CDT Inhaled Oxygen Concentration - - Weight - - Height - - Body Mass Index - - documented in this encounter Discharge Instructions Discharge InstructionsQuincy Orozco MD - 09/30/2020 8:33 PM CDT Discharge Instructions Abdominal Pain Abdominal pain can be caused by many things. Your evaluation today does not show the exact cause foryour pain. Your doctor today has decided that it is unlikely your pain is due to a life threatening problem, or a problem requiring surgery or hospital admission. Sometimes those problems cannot be found right away, so it is very important that you follow up as directed. Sometimes only the changes which occur over time allow the cause of your pain to be found. Return to the Emergency Department for a recheck in 8-12 hours if your pain continues. If your pain gets worse, changes in location, or feels different, return to the Emergency Department right away. ADULTS: Return to the Emergency Department right away if: You get an oral temperature above 102oF or as directed by your doctor. You have blood in your stools (bright red or black, tarry stools). You keep throwing up or can???t drink liquids. You see blood when you throw up. You can???t have a bowel movement or you can???t pass gas. Your stomach gets bloated or bigger. Your skin or the whites of your eyes look yellow. You faint. You have bloody, frequent or painful urination. You have new symptoms or anything that worries you. CHILDREN: Return to the Emergency Department right away if your child has any of the above-listed symptoms or the following: Pushes your hand away or screams/cries when his/her belly is touched. You notice your child is very fussy or weak. Your child is very tired and is too tired to eat or drink. Your child is dehydrated. Signs of dehydration can be: Your has had no wet diapers in 4-5 hours. Your older child has not passed urine in 6-8 hours. Your or child starts to have dry mouth and lips, or no saliva or tears. WOMEN: Return to the Emergency Department right away if you have any of the above-listed symptoms or the following: You have bleeding, leaking fluid or passing tissue from the vagina. You have worse pain or cramping, or pain in your shoulder or back. You have vomiting that will not stop. You have painful or bloody urination. You have a temperature of 100oF or more. Your baby is not moving as much as usual. You faint. You get a bad headache with or without eye problems and abdominal pain. You have a convulsion or seizure. You have unusual discharge from your vagina and abdominal pain. Abdominal pain is pretty common during . Your pain may or may not be related to your . You should follow-up closely with your OB doctor so they can evaluate you and your baby. Until you follow-up with your regular doctor, do the following: Avoid sex and do not put anything in your vagina. Drink clear fluids. Only take medications approved by your doctor. MORE INFORMATION: Appendicitis: A possible cause of abdominal pain in any person who still has their appendix is acuteappendicitis. Appendicitis is often hard to diagnose. Testing does not always rule out early appendicitis or other causes of abdominal pain. Close follow-up with your doctor and re-evaluations may be needed to figure out the reason for your abdominal pain. Follow-up: It is very important that you make an appointment with your clinic and go to the appointment. If you do not follow-up with your primary doctor, it may result in missing an important development which could result in permanent injury or disability and/or lasting pain. If there is any problemkeeping your appointment, call your doctor or return to the Emergency Department. Medications: Take your medications as directed by your doctor today. Before using [id number] medications, ask your doctor and make sure to take the medications as directed. If you have any questions about medications, ask your doctor. Diet: Resume your normal diet as much as possible, but do not eat fried, fatty or spicy foods while you have pain. Do not drink alcohol or have caffeine. Do not smoke tobacco. Probiotics: If you have been given an antibiotic, you may want to also take a probiotic pill or eat yogurt with live cultures. Probiotics have good bacteria to help your intestines stay healthy. Studies have shown that probiotics help prevent diarrhea and other intestine problems (including C. diff infection) when you take antibiotics. You can buy these without a prescription in the pharmacy section of the store. If you were given a prescription for medicine here today, be sure to read all of the information (including the package insert) that comes with your prescription. This will include important information about the medicine, its side effects, and any warnings that you need to know about. The pharmacist who fills the prescription can provide more information and answer questions you may have about the medicine. If you have questions or concerns that the pharmacist cannot address, please call or return to the Emergency Department. Opioid Medication Information Pain medications are among the most commonly prescribed medicines, so we are including this information for all our patients. If you did not receive pain medication or get a prescription for pain medicine, you can ignore it. You may have been given a prescription for an opioid (narcotic) pain medicine and/or have received apain medicine while here in the Emergency Department. These medicines can make you drowsy or impaired. You must not drive, operate dangerous equipment, or engage in any other dangerous activities whiletaking these medications. If you drive while taking these medications, you could be arrested for DUI, or driving under the influence. Do not drink any alcohol while you are taking these medications. Opioid pain medications can cause addiction. If you have a history of chemical dependency of any type, you are at a higher risk of becoming addicted to pain medications. Only take these prescribed medications to treat your pain when all other options have been tried. Take it for as short a time and asfew doses as possible. Store your pain pills in a secure place, as they are frequently stolen and provide a dangerous opportunity for children or visitors in your house to start abusing these powerful medications. We will not replace any lost or stolen medicine. As soon as your pain is better, you should flush all your remaining medication. Many prescription pain medications contain Tylenol?? (acetaminophen), including Vicodin??, Tylenol #3??, [place]??, Lortab??, and Percocet??. You should not take any extra pills of Tylenol?? if you are using these prescription medications or you can get very sick. Do not ever take more than 3000 mg of acetaminophen in any 24 hour period. All opioids tend to cause constipation. Drink plenty of water and eat foods that have a lot of fiber, such as fruits, vegetables, prune juice, apple juice and high fiber cereal. Take a laxative if you don???t move your bowels at least every other day. Miralax??, Milk of Magnesia, Colace??, or Senna?? can be used to keep you regular. Remember that you can always come back to the Emergency Department if you are not able to see your regular doctor in the amount of time listed above, if you get any new symptoms, or if there is anything that worries you. You need to have follow up UA to recheck for blood in your urine documented in this encounter Medications at Time [...] times daily documented as of this encounter ED Notes RoseMeche pastor RN - 09/30/2020 7:29 PM CDT Pt provided 2 large cups of water Meche Rose RN - 09/30/2020 6:33 PM CDT Pt refused IV placement, junior copywriter advised we typically start and IV and draw labs at the same time to save a future poke if the IV is later needed based on results. Pt again refused IV, stated she is sensitive to needles, and requested a small needle. US was ready for pt so labs changed to lab collect. MD advised Latonia Alatorre - 09/30/2020 5:40 PM CDT Patient presents with bilateral pelvic pain since yesterday with orange/yellow discharge. Patient had a 5 weeks ago, and started PT yesterday, and pain and cramping started after. Quincy Orozco MD - 09/30/2020 5:30 PM CDT History Chief Complaint: Pelvic Pain & Vaginal Discharge The history is provided by the patient. Destiney Cassidy is a 29 year old female, five weeks s/p on 08/25/2020 and currently breast feeding, who presents for evaluation of pelvic pain and abnormal vaginal discharge. Two days ago, shehad an abdominal massage through her PT; during this encounter, she reports the therapist pushed allover her abdomen, including the incision site. That same evening, she reports developing lower abdominal/pelvic pain that she had never experienced before. This pain has been constant since the onset and is associated with new orange-yellow tinged clear vaginal discharge. Given the persistence of these new symptoms, she became concerned for the possibility of infection, thus prompting presentation tothe ED. Here, she describes this pelvic pain as severe menstrual cramps that radiate into her back. She states it is diffuse across her low abdomen, but slightly worse on the right side. She has been using Tylenol regularly at home without relief. She denies other associated symptoms, including fever,chills, vaginal irritation, or flank pain. She also notes her stools have been consistent since giving , however she has been using Miralax daily. She denies recent trauma to her abdomen. Allergies: Cefprozil Penicillins Cephalosporins Ciprofloxacin Medications: Levalbuterol inhaler Ferrous sulfate Lovenox Past Medical History: Anxiety Graves disease Insomnia POTS Left jugular vein thrombosis Trigeminal neuralgia Past Surgical History: Lumbar decompression, L5-S1 Tonsillectomy Myringotomy, bilateral tube insertion Family History: She denies past family history. Social History: Presents unaccompanied to the ED. She is . Review of Systems Constitutional: Negative for chills and fever. Gastrointestinal: Positive for abdominal pain (low ab/pelvic). Negative for anal bleeding, blood in stool, constipation and diarrhea. Genitourinary: Positive for pelvic pain and vaginal discharge (orange-yellow). Negative for difficulty urinating, flank pain and vaginal bleeding. Musculoskeletal: Positive for back pain. All other systems reviewed and are negative. Physical Exam Patient Vitals for the past 24 hrs: BP Temp Temp src Pulse Resp SpO2 09/30/20 1741 117/71 96.7 ??F (35.9 ??C) Temporal 76 16 97 % Physical Exam General: The patient is alert, in no respiratory distress. HENT: Mucous membranes moist. Cardiovascular: Regular rate and rhythm. Good pulses in all four extremities. Normal capillary refill and skin turgor. Respiratory: Lungs are clear. No nasal flaring. No retractions. No wheezing, no crackles. Gastrointestinal: Abdomen soft. No guarding, no rebound. No palpable hernias. Low abdominal tenderness. Musculoskeletal: No gross deformity. Skin: No rashes or petechiae. Neurologic: The patient is alert and oriented x3. GCS 15. No testable cranial nerve deficit. Followscommands with clear and appropriate speech. Gives appropriate answers. Good strength in all extremities. No gross neurologic deficit. Gross sensation intact. Pupils are round and reactive. No meningismus. Lymphatic: No cervical adenopathy. No lower extremity swelling. Psychiatric: The patient is non-tearful. Emergency Department Course Imaging: US Pelvis Complete without Transvaginal: No significant abnormality detected by transabdominal technique. Reading per radiology. Laboratory: CBC: WBC 5.8, HGB: 11.4 (L), PLT: 272 BMP: Ca: 8.4 (L), o/w WNL (Creatinine: 0.76) Qualitative hCG: Negative UA with microscopic: Ketones: Trace (A), Blood: Small (A), Protein albumin: 20 (A), Mucous: Present (A), o/w WNL Emergency Department Course: Reviewed: I reviewed the patient's nursing notes, vitals, past medical records, and Care Everywhere. Assessments: 1751: I performed an exam of the patient, as documented above. History obtained and plan for ED workup discussed as well. This discussion included the pros/cons of CT, ultrasound, pelvic exam, and laboratory studies. She is comfortable deferring the CT scan and she is declining a pelvic exam at this time. 1814: After a discussion with the RN, the patient is now amenable to blood work, but is declining anIV; lab will collect blood. 2027: I reassessed the patient and discussed the results of the work up and recommendations for management. Disposition: The patient was discharged to home. Impression & Plan Medical Decision Making: Destiney Cassidy is a 29 year old female who presents with low pelvic pain which she described as severe menstrual cramping starting after a abdominal massage. I am very suspicious these are related I did consider other causes such as diverticulitis abscess UTI kidney stone obstruction ovarian torsionectopic amongst other conditions. The patient did report that there was some vaginal discharge that sounds quite clear in consistency. She would not consent to a pelvic exam here therefore I do not have any samples of this her ultrasound is quite reassuring there is no signs of an ovarian process though not everything can be excluded by ultrasound. Her exam however is quite benign. Labs were checked to look for signs of high white count or other pathologic process. Discussed the results including her hematuria and proteinuria which is likely secondary to the vaginal discharge. I stressed she shouldfollow-up with her OB will need a recheck of her urine she is otherwise stable and was discharged home in good condition. Diagnosis: ICD-10-CM 1. Pelvic pain in female R10.2 2. Acute post-operative pain G89.18 3. Hematuria, unspecified type R31.9 4. Vaginal discharge N89.8 Scribe Disclosure: I, Chuyita Erickson, am serving as a scribe on 09/30/2020 at 5:52 PM to personally document services performed by Quincy Orozco MD based on my observations and the provider's statements to me. 09/30/2020 EMERGENCY DEPARTMENT Quincy Orozco MD 09/30/20 2154 documented in this encounter Plan of Treatment Not on filedocumented as of this encounter Procedures Procedure Name Priority Date/Time Associated Comments Diagnosis US PELVIC STAT 09/30/2020 8:05 PM Results f or this TRANSABDOMINAL CDT procedure are in the results section. CBC WITH PLATELETS & STAT 09/30/2020 6:49 PM R esults for this DIFFERENTIAL CDT procedure are i n the results section. BASIC METABOLIC PANEL STAT 09/30/2020 6:49 PM Results for this CDT procedure are i n the results section. HCG QUALITATIVE URINE Routine 09/30/2020 6:21 PM Results for this CDT procedure are i n the results section. ROUTINE UA WITH STAT 09/30/2020 6:21 PM Result s for this MICROSCOPIC CDT procedure are i n the results section. documented in this encounter Results US Pelvis Complete without Transvaginal (09/30/2020 8:05 PM CDT) Anatomical Region Laterality Modality Abdomen/Pelvis Ultrasound Specimen (Source) Anatomical Collection Method Collection Time Re ceived Time Location / / Volume Laterality 09/30/2020 6:37 PM CDT Impressions 09/30/2020 8:09 PM CDT IMPRESSION: No significant abnormality detected by t ransabdominal technique. Narrative 09/30/2020 8:09 PM CDT EXAM: US PELVIS COMPLETE WITHOUT TRANSVAGINAL LOCATION: [facility] DATE/TIME: 09/30/2020 6:37 PM INDICATION: Pelvic cramping and yellow f luid discharge after section. COMPARISON: None. TECHNIQUE: Transabdominal scans were per formed. Patient declined transvaginal evaluation. FINDINGS: UTERUS: 8.0 x 5.6 x 3.5 cm. Normal in si ze and position with no masses. section scar not well seen by transabdominal technique. No periuterine fluid collection visualized. ENDOMETRIUM: 6 mm. Normal smooth endomet rium. RIGHT OVARY: 2.4 x 1.7 x 1.4 cm. Normal. LEFT OVARY: 2.4 x 1.4 x 1.4 cm. Normal. Trace free pelvic fluid within physiolog ic range. Procedure Note Diaz Kellogg MD - 09/30/2020Format ting of this note might be different from the original. EXAM: US PELVIS COMPLETE WITHOUT TRANSVA GINAL LOCATION: [facility] DATE/TIME: 09/30/2020 6:37 PM INDICATION: Pelvic cramping and yellow f luid discharge after section. COMPARISON: None. TECHNIQUE: Transabdominal scans were per formed. Patient declined transvaginal evaluation. FINDINGS: UTERUS: 8.0 x 5.6 x 3.5 cm. Normal in si ze and position with no masses. section scar not well seen by transabdominal technique. No periuterine fluid collection visualized. ENDOMETRIUM: 6 mm. Normal smooth endomet rium. RIGHT OVARY: 2.4 x 1.7 x 1.4 cm. Normal. LEFT OVARY: 2.4 x 1.4 x 1.4 cm. Normal. Trace free pelvic fluid within physiolog ic range. IMPRESSION: No significant abnormality detected by t ransabdominal technique. Quincy Orozco MD IMG US ORDERABLES (ABNORMAL) CBC with platelets differential (09/30/2020 6:49 PM CDT) [facility] Method Time Signature WBC 5.8 4.0 - 09/30/2020 [place] 11.0 6:55 PM [facility] 10e9/L [facility] RBC Count 3.99 3.8 - 5.2 09/30/2020 [place] 10e12/L 6:55 PM [facility] Hemoglobin 11.4 (L) 11.7 - 09/30/2020 [place] 15.7 g/dL 6:55 PM [facility] Hematocrit 37.3 35.0 - 09/30/2020 [place] 47.0 % 6:55 PM [facility] MCV 94 78 - 100 09/30/2020 [place] fl 6:55 PM [facility] MCH 28.6 26.5 - 09/30/2020 [facility] 33.0 pg 6:55 PM [facility] MCHC 30.6 (L) 31.5 - 09/30/2020 [facility] 36.5 g/dL 6:55 PM [facility] RDW 12.3 10.0 - 09/30/2020 [facility] 15.0 % 6:55 PM [facility] Platelet Count 272 150 - 450 09/30/2020 [facility] 10e9/L 6:55 PM [facility] Diff Method Automated 09/30/2020 [facility] Method 6:55 PM [facility] % Neutrophils 56.2 % 09/30/2020 [facility] 6:55 PM [facility] % Lymphocytes 29.6 % 09/30/2020 [facility] 6:55 PM [facility] % Monocytes 9.7 % 09/30/2020 [facility] 6:55 PM [facility] % Eosinophils 3.1 % 09/30/2020 [facility] 6:55 PM [facility] % Basophils 1.2 % 09/30/2020 [facility] 6:55 PM [facility] % Immature 0.2 % 09/30/2020 [facility] Granulocytes 6:55 PM [facility] Nucleated RBCs 0 0 /100 09/30/2020 [facility] 6:55 PM [facility] Absolute 3.3 1.6 - 8.3 09/30/2020 [facility] Neutrophil 10e9/L 6:55 [facility] Absolute 1.7 0.8 - 5.3 09/30/2020 [facility] Lymphocytes 10e9/L 6:55 PM [facility] Absolute 0.6 0.0 - 1.3 09/30/2020 [facility] Monocytes 10e9/L 6:55 PM [facility] Absolute 0.2 0.0 - 0.7 09/30/2020 [facility] Eosinophils 10e9/L 6:55 PM [facility] Absolute 0.1 0.0 - 0.2 09/30/2020 [facility] Basophils 10e9/L 6:55 PM [facility] Abs Immature 0.0 0 - 0.4 09/30/2020 [facility] Granulocytes 10e9/L 6:55 PM [facility] Absolute 0.0 09/30/2020 [place] Nucleated RBC 6:55 PM [facility] Specimen Anatomical Collection Method Collection Time Receive d Time (Source) Location / / Volume Laterality Blood specimen 09/30/2020 6:49 PM 021 6:50 (specimen) CDT PM CDT Quincy Orozco MD LAB - BLOOD ORDERABLES Performing Organization Address City/State/ZIP Code Phon e Number M [facility] [address], [place] [address] [facility] [address] [phone] (ABNORMAL) Basic metabolic panel (09/30/2020 6:49 PM CDT) athologist Signature Sodium 141 133 - 144 09/30/2020 [place] mmol/L 7:04 PM [facility] Potassium 3.9 3.4 - 5.3 09/30/2020 [place] mmol/L 7:04 PM [facility] Chloride 109 94 - 109 09/30/2020 [place] mmol/L 7:04 PM [facility] Carbon Dioxide 27 20 - 32 09/30/2020 [place] mmol/L 7:[address] [facility] Anion Gap 5 3 - 14 09/30/2020 [place] mmol/L 7:[address] [facility] Glucose 81 70 - 99 09/30/2020 [place] mg/dL 7:[address] [facility] Urea Nitrogen 17 7 - 30 09/30/2020 [place] mg/dL 7:[address] [facility] Creatinine 0.76 0.52 - 09/30/2020 [facility] 1.04 mg/dL 7:[address] [facility] GFR Estimate >90 >60 09/30/2020 [place] mL/min/{1. 7:09 PM [facility] 73_m2} HOSPITAL Comment: Non GFR Calc Starting 07/06/2018, serum creatinine ba sed estimated GFR (eGFR) will be calculated using the Chronic Kidney Dise ase Epidemiology Collaboration (CKD-EPI) equation. GFR Estimate If >90 >60 mL/min/{1.73_m2} 09/30/2020 7: 09 PM [facility] Comment: GFR Calc Starting 07/06/2018, serum creatinine ba sed estimated GFR (eGFR) will be calculated using the Chronic Kidney Dise ase Epidemiology Collaboration (CKD-EPI) equation. Calcium 8.4 (L) 8.5 - 10.1 mg/dL 09/30/2020 7:[address] [facility] Specimen Anatomical Collection Method Collection Time Receive d Time (Source) Location / / Volume Laterality Blood specimen 09/30/2020 6:49 PM 021 6:50 (specimen) CDT PM CDT Quincy Orozco MD LAB - BLOOD ORDERABLES Performing Organization Address City/[facility]/ZIP [facility] Phon e Number [facility] [address] [place] [address] [facility] [address] [place], [place] [address], [facility] [phone] [place] [address], [facility] HCG qualitative urine (09/30/2020 6:21 PM CDT) athologist Signature HCG Qual Urine Negative NEG^Negati 09/30/2020 [facility] 6:49 PM T [facility] Comment: This test is for screening purposes. ??R esults should be interpreted along with the clinical picture. ??Confirmation te sting is available if warranted by ordering [id number], HCG Quantitative Pregna ncy. Specimen Anatomical Collection Method Collection Time Receive d Time (Source) Location / / Volume Laterality Urine specimen URINE SPECIMEN 09/30/2020 6:21 PM 09/30 6:39 (specimen) OBTAINED BY CLEAN CDT PM CDT CATCH PROCEDURE / Unknown Quincy Orozco MD LAB - URINE ORDERABLES Performing Organization Address City/[facility] Phon e Number M [facility] [address], [place] [address] [place] [address] [place], [place] [address] [facility] [phone] (ABNORMAL) UA with Microscopic (09/30/2020 6:21 PM CDT) [facility] Method Time Signature Color Urine Yellow 09/30/2020 [facility] 6:48 PM [facility] [facility] U[facility] Clear 09/30/2020 [facility] 6:48 PM [facility] Glucose Urine Negative NEG^Negat 09/30/2020 [facility] stephanie mg/dL 6:48 PM [facility] Bilirubin Urine Negative NEG^Negat 09/30/2020 [facility] stephanie 6:48 PM [facility] Ketones Urine Trace (A) NEG^Negat 09/30/2020 [facility] stephanie mg/dL 6:48 PM [facility] Specific [place] 1.034 1.003 - 09/30/2020 [facility] Urine 1.035 6:48 PM [facility] Blood Urine Small (A) NEG^Negat 09/30/2020 [facility] stephanie 6:48 PM [facility] pH Urine 6.0 5.0 - 7.0 09/30/2020 [facility] pH 6:48 PM [facility] Protein Albumin 20 (A) NEG^Negat 09/30/2020 [facility] Urine stephanie mg/dL 6:48 PM [facility] Urobilinogen Normal 0.0 - 2.0 09/30/2020 [facility] mg/dL mg/dL 6:48 PM [facility] Nitrite Urine Negative NEG^Negat 09/30/2020 [facility] stephanie 6:48 PM [facility] Leukocyte Negative NEG^Negat 09/30/2020 [facility] Esterase Urine stephanie 6:48 PM [facility] Source Midstream 09/30/2020 [facility] Urine 6:21 PM [facility] WBC Urine 3 0 - 5 09/30/2020 [facility] /HPF 6:48 PM [facility] RBC Urine 1 0 - 2 09/30/2020 [facility] /HPF 6:48 PM [facility] Squamous 1 0 - 1 09/30/2020 [facility] Epithelial /HPF /HPF 6:48 PM [facility] Mucous Urine Present (A) NEG^Negat 09/30/2020 [facility] stephanie /LPF 6:48 PM CDT [facility] Specimen (Source) Anatomical Collection Method Collection Time Re ceived Time Location / / Volume Laterality Examination of 09/30/2020 6:21 09/30/2020 6:39 midstream urine PM CDT PM CDT specimen (procedure) Quincy Orozco MD LAB - URINE ORDERABLES Performing Organization Address City/State/ZIP Code Phon e Number [place] [address], [place] [address] [facility] [address] [place], [place] [address] [facility] [phone] documented in this encounter Visit Diagnoses Diagnosis Pelvic pain in female Unspecified symptom associated with fema le genital organs Acute post-operative pain Other acute postoperative pain Hematuria, unspecified type Vaginal discharge Leukorrhea, not specified as infective documented in this encounter Administered Medications Inactive Administered Medications - up to 3 most recent administrations Medication Order MAR Action Action Date Dose Rate Site lidocaine (LMX4) cream Topical, EVERY 1 HOUR PRN, pain, with VA D insertion., Starting on Thu09/30/20 at 1827, Apply at least 30 minutes prior to VAD insertion. In divided doses as needed for size of site for insertion. MAX Dose: 2.5 g (?? of 5 g tube) Do NOT give if patient has a history of allergy to any local anesthetic or any loyda product. lidocaine 1 % 0.1-1 mL 0.1-1 mL, Other, EVERY 1 HOUR PRN, mild pain with VAD insertion., Starting on Thu09/30/20 at 1827, MAX dose 1 mL subcutane ous OR intradermal along the side of the vein in divided doses as needed for VAD insertion. Do NOT give if patient has a history of allergy to any local anesthetic or any princess ne product. sodium chloride (PF) 0.9% PF flush 3 mL 3 mL, Intracatheter, EVERY 8 HOURS PRN, other, to lock peripheral IV dormant line, Starting on Thu09/30/20 at 1827 sodium chloride (PF) 0.9% PF flush 3 mL 3 mL, Intracatheter, EVERY 1 MIN PRN, li ne flush, for peripheral IV flush post IV meds, or to ensure patency., Starting on Thu09/30/20 a t 1827 documented in this encounter Active and Recently Administered Medications Due to Daylight Saving Time, this section may contain times in both SAFETY ASSOCIATE and CDT. PRN Medication Order 09/28/2020 09/29/2020 09/30/2020 lidocaine (LMX4) cream Topical, EVERY 1 HOUR PRN, pain, with VA D insertion., Starting 09/30/20 at 1827, Apply at least 30 minutes prior to VAD insertion. In divided doses as needed for size of site for insertion. MAX Dose: 2.5 g (?? of 5 g tube) Do NOT give if p atient has a history of allergy to any local anesthetic or any loyda product. lidocaine 1 % 0.1-1 mL 0.1-1 mL, Other, EVERY 1 HOUR PRN, mild pain with VAD insertion., Starting 09/30/20 at 1827, MAX dose 1 mL subcutaneous OR intradermal along the side of the vein in divided doses as needed for VAD in sertion. Do NOT give if patient has a hi story of allergy to any local anesthetic or any loyda product. sodium chloride (PF) 0.9% PF flush 3 mL 3 mL, Intracatheter, EVERY 8 HOURS PRN, other, to lock peripheral IV dormant line, Starting 09/30/20 at 1827 sodium chloride (PF) 0.9% PF flush 3 mL 3 mL, Intracatheter, EVERY 1 MIN PRN, li ne flush, for peripheral IV flush post IV meds, or to ensure patency., Starting 09/30/20 at 1827 documented in this encounter Additional Health Concerns Assessment Noted Time PHQ-9 Depression Total Score: 2 01/26/2019 11:18 AM CD T documented as of this encounter Care Teams Supervisor Cleaning And Annealing Relationship Specialty Start Date End Date Justin Loya MD PCP - General Family Practice 02/19/11 [facility] [address] [place] [address] Silas Santiago MD MD Pain Clinic 11/29/13 [facility] [address] [facility] [place] [address] Silas Dean, Assigned Neuroscience 05/11/20 03/02/21 MD Provider [address] [facility] [id number] [place], [place] [address] Silas Jorge MD Assigned Surgical Provider 05/11/[address] [place] [address] [phone] documented as of this encounter
--- OUTSIDE RECORDS SUMMARY | 2022-06-23 17:41 | XMS_ITS | Encounter Summary ---
:1990 Author Organization [place] Address [address] [facility] [place] [address] Care Team Providers Name Role Phone Justin Loya MD Primary Care Provider Silas Santiago MD Unavailable Silas Dean MD Unavailable Silas Jorge MD Unavailable Encounter Details Date Type Department Care Team Description 11/28/2020 [facility] [place] Scan, PHYSICAL [facility] Info Mgmt Non-Provider ORDER [facility] OBGYN [address] [place] [address] Social History Tobacco Use Types [...] documented as of this encounter Care Teams Tip Inserter Relationship Specialty Start Date End Date Justin Loya MD PCP - General Family Practice 02/19/11 [facility] [address] [place] [address] Silas Santiago MD MD Pain Clinic 11/29/13 [facility] [address] [place] [address] Silas Dean, Assigned Neuroscience 05/11/20 03/02/21 MD Provider [address] [place] [address] [id number] [place] [address] Silas Jorge MD Assigned Surgical Provider 05/11/[address] [place] [id number] documented as of this encounter
--- OUTSIDE RECORDS SUMMARY | 2022-06-23 17:41 | XMS_ITS | Encounter Summary ---
:1990 Author Organization [place] Address [facility] [place] [address] Care Team Providers Name Role Phone Justin Loya MD Primary Care Provider Silas Santiago MD Unavailable Silas Dean MD Unavailable Silas Jorge MD Unavailable Encounter Details Date Type Department Care Team Description 09/15/2020 Travel Social History Tobacco Use Types Packs/Day Years Used Date Smoking Tobacco: Never Smokeless Tobacco: Never Alcohol Use Standard Drinks/Week Comments No 0 (1 standard drink = 0.6 oz pure alcoho l) Sex Assigned at Date Recorded Not on file COVID-19 Exposure Response Date Recorded In the last month, have you been in contact with No / Unsure 09/15/2020 10:14 AM SPECIAL SERVICE REPRESENTATIVE someone who was confirmed or suspected to have Coronavirus / COVID-19? documented as of this encounter Plan of Treatment Not on filedocumented as of this encounter Visit Diagnoses Not on filedocumented in this encounter Additional Health Concerns Assessment Noted Time PHQ-9 Depression Total Score: 2 01/26/2019 11:18 AM CD T documented as of this encounter Care Teams Utility Spray Operator Relationship Specialty Start Date End Date Justin Loya MD PCP - General Family Practice 02/19/11 [facility] [address] [place] [address] Silas Santiago MD MD Pain Clinic 11/29/[address] [facility] [address] [place], [place] [address] Silas Dean, Assigned Neuroscience 05/11/20 03/02/21 MD Provider [address] [place] [address] [id number] [place], [place] [phone] Silas Jorge MD Assigned Surgical Provider 05/11/[address] [place] [phone] documented as of this encounter
--- OUTSIDE RECORDS SUMMARY | 2022-06-23 17:41 | XMS_ITS | Encounter Summary ---
:1990 Author Organization [place] Address [address] [place] [address] Care Team Providers Name Role Phone Justin Loya MD Primary Care Provider Silas Santiago MD Unavailable Encounter Details Date Type Department Care Team Description 08/02/2021 Travel Social History Tobacco Use Types Packs/Day Years Used Date Smoking Tobacco: Never Smokeless Tobacco: Never Alcohol Use Standard Drinks/Week Comments No 0 (1 standard drink = 0.6 oz pure alcoho l) Sex Assigned at Date Recorded Not on file COVID-19 Exposure Response Date Recorded In the last month, have you been in contact with No / Unsure 08/02/2021 11:15 PM LEASE OPERATOR someone who was confirmed or suspected to have Coronavirus / COVID-19? documented as of this encounter Plan of Treatment Not on filedocumented as of this encounter Visit Diagnoses Not on filedocumented in this encounter Additional Health Concerns Assessment Noted Time PHQ-9 Depression Total Score: 2 01/26/2019 11:18 AM CD T documented as of this encounter Care Teams Physicians Assistant Relationship Specialty Start Date End Date Justin Loya MD PCP - General Family Practice 02/19/11 [facility] [address] [place] [phone] Silas Santiago MD MD Pain Clinic 11/29/13 [facility] [address] [place] [address] documented as of this encounter
--- OUTSIDE RECORDS SUMMARY | 2022-06-23 17:41 | XMS_ITS | Encounter Summary ---
:1990 Author Organization [place] Address [address] [facility] [place] [address] Care Team Providers Name Role Phone Justin Loya MD Primary Care Provider Silas Santiago MD Unavailable Reason for Visit Reason Comments Flank Pain Encounter Details Date Type Department Care Team Description 08/02/2021 - Emergency [facility] Jose Valle, 08/03/2021 [facility] Emergency Dep t [address] [facility] [place], [place] [address] [facility] [place] [address] [place] [address] (Wo rk) Social History Tobacco Use Types Packs/Day Years Used Date Smoking Tobacco: Never Smokeless Tobacco: Never Alcohol Use Standard Drinks/Week Comments No 0 (1 standard drink = 0.6 oz pure alcoho l) Sex Assigned at Date Recorded Not on file COVID-19 Exposure Response Date Recorded In the last month, have you been in contact with No / Unsure 08/02/2021 11:15 PM BATTERY STARTER someone who was confirmed or suspected to have Coronavirus / COVID-19? documented as of this encounter Last Filed Vital Signs Vital Sign Reading Time Taken Comments Blood Pressure 117/76 08/02/2021 11:39 PM BATTERY STARTER Pulse 66 08/02/2021 11:39 PM BATTERY STARTER Temperature 36.7 ??C (98.1 ??F) 08/02/2021 11:39 PM BATTERY STARTER Respiratory Rate 20 08/02/2021 11:39 PM BATTERY STARTER Oxygen Saturation 99% 08/02/2021 11:39 PM BATTERY STARTER Inhaled Oxygen Concentration - - Weight - - Height - - Body Mass Index - - documented in this encounter Medications at Time of Discharge Medication Sig Dispensed Refills Start Date End Date FEROSUL 325 (65 Fe) MG TAKE 1 TABLET BY 0 021 04/18/2022 tablet MOUTH TWICE DAILY WITH MEALS ferrous sulfate (FEROSUL) Take 325 mg by mouth 0 02/14/2021 06/13/2022 325 (65 Fe) MG tablet daily documented as of this encounter ED Notes Johan Cintron RN - 08/03/2021 2:13 AM CST No answer when called for re-eval x 3 ERY STARTER Johan Cintron RN - 08/02/2021 11:39 PM CST Pt states left sided flank pain with dysuria for over one week, worse tonight. ABCs intact GCS 15 ERY STARTER documented in this encounter Plan of Treatment Not on filedocumented as of this encounter Procedures Procedure Name Priority Date/Time Associated Comments Diagnosis HCG QUALITATIVE URINE STAT 08/03/2021 12:21 Re sults for this AM BATTERY STARTER procedure are i n the results section. ROUTINE UA WITH STAT 08/03/2021 12:21 Results for this MICROSCOPIC REFLEX TO AM BATTERY STARTER proced ure are in CULTURE the results section. documented in this encounter Results UA with Microscopic reflex to Culture (08/03/2021 12:21 AM BATTERY STARTER) [facility] Method Time Signature Color Urine Straw Colorless, 08/03/2021 [facility] Straw, Light 2:52 AM BATTERY STARTER Yellow, Yellow Appearance Urine Clear Clear 08/03/2021 [facility] Y 2:52 AM BATTERY STARTER Glucose Urine Negative Negative 08/03/2021 [facility] mg/dL 2:52 AM BATTERY STARTER Bilirubin Urine Negative Negative 08/03/2021 [facility] 2:52 AM BATTERY STARTER Ketones Urine Negative Negative 08/03/2021 [facility] mg/dL 2:52 AM BATTERY STARTER Specific [place] 1.008 1.003 - 08/03/2021 [facility] Y Urine 1.035 2:52 AM BATTERY STARTER Blood Urine Negative Negative 08/03/2021 [facility] 2:52 AM BATTERY STARTER pH Urine 6.5 5.0 - 7.0 08/03/2021 [facility] 2:52 AM BATTERY STARTER Protein Albumin Negative Negative 08/03/2021 [facility] Urine mg/dL 2:52 AM BATTERY STARTER Urobilinogen Normal Normal, 2.0 08/03/2021 [facility] Urine mg/dL 2:52 AM BATTERY STARTER Nitrite Urine Negative Negative 08/03/2021 [facility] 2:52 AM BATTERY STARTER Leukocyte Negative Negative 08/03/2021 [facility] Esterase Urine 2:52 AM BATTERY STARTER RBC Urine 0 <=2 /HPF 08/03/2021 [facility] 2:52 AM BATTERY STARTER WBC Urine 0 <=5 /HPF 08/03/2021 [facility] 2:52 AM BATTERY STARTER Specimen Anatomical Collection Method Collection Time Receive d Time (Source) Location / / Volume Laterality Urine MID-STREAM URINE Non-blood 08/03/2021 12:21 022 2:49 SPECIMEN / Unknown Collection / AM BATTERY STARTER AM BATTERY STARTER Unknown Narrative LABORATORY - 08/03/2021 2:52 AM BATTERY STARTER Urine Culture not indicated Caden Jean-Baptiste MD LAB - URINE ORDERABLES Performing Organization Address City/State/ZIP Code [place] [address] Care Lab [address] Lab (1st floor, no room number) HCG qualitative urine (08/03/2021 12:21 AM BATTERY STARTER) [facility] Method Time Signature hCG Urine Negative Negative CARLOS 08/03/2021 LABORATORY Qualitative 12:47 AM BATTERY STARTER Comment: This test is for screening purp oses. Results should be interpreted along with the clinical picture. Confirmation testing is available if warranted by ordering [id number], HCG Quantitative . Specimen Anatomical Collection Method Collection Time Receive d Time (Source) Location / / Volume Laterality Urine MID-STREAM URINE Non-blood 08/03/2021 12:21 022 SPECIMEN / Unknown Collection / AM BATTERY STARTER 12:35 AM BATTERY STARTER Unknown Caden Jean-Baptiste MD LAB - URINE ORDERABLES Performing Organization Address City/State/ZIP Code [place] [address] Care Lab [address] Lab (1st floor, no room number) documented in this encounter Visit Diagnoses Not on filedocumented in this encounter Additional Health Concerns Assessment Noted Time PHQ-9 Depression Total Score: 2 01/26/2019 11:18 AM CD T documented as of this encounter Care Teams Veterinary Pathologist Relationship Specialty Start Date End Date Justin Loya MD PCP - General Family Practice 02/19/11 [facility] [address] [place] [address] Silas Santiago MD MD Pain Clinic 11/29/13 [facility] [address] [place] [address] documented as of this encounter
--- OUTSIDE RECORDS SUMMARY | 2022-06-23 17:41 | XMS_ITS | Encounter Summary ---
:1990 Author Organization [place] Address [address] [facility] [place] [address] Care Team Providers Name Role Phone Justin Loya MD Primary Care Provider Silas Santiago MD Unavailable Silas Dean MD Unavailable Silas Jorge MD Unavailable Reason for Visit [facility] (Routine) - Closed Specialty Diagnoses / Procedures Referred By Contact Refer red To Contact Physical Therapist / Diagnoses post surgical c section / @ [facility] Karie Patel Patricia, PT Physical Therapy Procedures FWO INITIAL Mellisa Hayden MD [address] [facility] [place] [address] [place] [address] Referral ID Status Reason Start Date Expiration Date Visits Requ ested Visits Authorized [id number] Closed 11/28/2020 07/19/2021 40 40 Encounter Details Date Type Department Care Team Description 11/28/2020 Therapy Visit [facility] Priscila Harrell Canc eled (Patient Rehabilitation Services PT Initiated) [place] [id number] [address] [facility] [place] [phone] Social History Tobacco Use Types Packs/Day Years [...] documented as of this encounter Care Teams Communications Operator Relationship Specialty Start Date End Date Justin Loya MD PCP - General Family Practice 02/19/11 [facility] [address] [place] [phone] Silas Santiago MD MD Pain Clinic 11/29/13 [facility] [address] [place] [address] Silas Dean, Assigned Neuroscience 05/11/20 03/02/21 MD Provider [address] [place] [address] [id number] [place], [place] [address] Silas Jorge MD Assigned Surgical Provider 05/11/[address] [place] [phone] documented as of this encounter
--- OUTSIDE RECORDS SUMMARY | 2022-06-23 17:41 | XMS_ITS | Encounter Summary ---
:1990 Author Organization [place] Address [address] [facility] [place] [address] Care Team Providers Name Role Phone Justin Loya MD Primary Care Provider Silas Santiago MD Unavailable Encounter Details Date Type Department Care Team Description 08/01/2021 Travel Social History Tobacco Use Types Packs/Day Years Used Date Smoking Tobacco: Never Smokeless Tobacco: Never Alcohol Use Standard Drinks/Week Comments No 0 (1 standard drink = 0.6 oz pure alcoho l) Sex Assigned at Date Recorded Not on file COVID-19 Exposure Response Date Recorded In the last month, have you been in contact with No / Unsure 08/01/2021 9:24 AM MACHINE STEAK TENDERIZER someone who was confirmed or suspected to have Coronavirus / COVID-19? documented as of this encounter Plan of Treatment Not on filedocumented as of this encounter Visit Diagnoses Not on filedocumented in this encounter Additional Health Concerns Assessment Noted Time PHQ-9 Depression Total Score: 2 01/26/2019 11:18 AM CD T documented as of this encounter Care Teams Watch Train Inspector Relationship Specialty Start Date End Date Justin Loya MD PCP - General Family Practice 02/19/11 [facility] [address] [place] [phone] Silas Santiago MD MD Pain Clinic 11/29/13 [facility] [address] [place] [address] documented as of this encounter
--- OUTSIDE RECORDS SUMMARY | 2022-06-23 17:41 | XMS_ITS | Encounter Summary ---
:1990 Author Organization [place] Address [address] [facility] [place] [address] Care Team Providers Name Role Phone Justin Loya MD Primary Care Provider Silas Santiago MD Unavailable Reason for Visit Reason Comments Abdominal Pain Encounter Details Date Type Department Care Team Description 08/03/2021 Emergency [facility] Caden Vaughan PA-C LUQ abdominal pain; [facility] Emergency Dep t [facility] Left flank pain [address] [place], [place] [address] [place] [id number] [place], [place] [id number] (Wo rk) Social History Tobacco Use Types Packs/Day Years Used Date Smoking Tobacco: Never Smokeless Tobacco: Never Alcohol Use Standard Drinks/Week Comments No 0 (1 standard drink = 0.6 oz pure alcoho l) Sex Assigned at Date Recorded Not on file COVID-19 Exposure Response Date Recorded In the last month, have you been in contact with No / Unsure 08/03/2021 7:49 AM ASSEMBLER INSULATOR someone who was confirmed or suspected to have Coronavirus / COVID-19? documented as of this encounter Last Filed Vital Signs Vital Sign Reading Time Taken Comments Blood Pressure 119/75 08/03/2021 12:15 PM ASSEMBLER INSULATOR Pulse 64 08/03/2021 12:15 PM ASSEMBLER INSULATOR Temperature 36.4 ??C (97.5 ??F) 08/03/2021 8:03 AM ASSEMBLER INSULATOR Respiratory Rate 14 08/03/2021 12:15 PM ASSEMBLER INSULATOR Oxygen Saturation 100% 08/03/2021 12:15 PM ASSEMBLER INSULATOR Inhaled Oxygen Concentration - - Weight - - Height - - Body Mass Index - - documented in this encounter Discharge Instructions Discharge InstructionsStCaden meyers PA-C - 08/03/2021 1:18 PM CST You have elected to defer on imaging at this time. Return to the emergency department with new or worsening symptoms. Discharge Instructions Abdominal Pain Abdominal pain (belly pain) can be caused by many things. Your evaluation today does not show the exact cause for your pain. Your provider today has decided that it is unlikely your pain is due to a life threatening problem, or a problem requiring surgery or hospital admission. Sometimes those problems cannot be found right away, so it is very important that you follow up as directed. Sometimes only the changes which occur over time allow the cause of your pain to be found. Generally, every Emergency Department visit should have a follow-up clinic visit with either a primary or a specialty clinic/provider. Please follow-up as instructed by your emergency provider today. With abdominal pain, we often recommend very close follow-up, such as the following day. ADULTS: Return to the Emergency Department right away if: You get an oral temperature above 102oF or as directed by your provider. You have blood in your stools. This may be bright red or appear as black, tarry stools. You keep vomiting (throwing up) or cannot drink liquids. You see blood when you vomit. You cannot have a bowel movement or you cannot pass gas. Your stomach gets bloated or bigger. Your skin or the whites of your eyes look yellow. You faint. You have bloody, frequent or painful urination (peeing). You have new symptoms or anything that [...] is dehydrated. Signs of dehydration can be: Significant change in the amount of wet diapers/urine. Your or child starts to have dry mouth and lips, or no saliva (spit) or tears. WOMEN: Return to the Emergency Department right away if you have any of the above-listed symptoms or the following: You have bleeding, leaking fluid or passing tissue from the vagina. You have worse pain or cramping, or pain in your shoulder or back. You have vomiting that will not stop. You have a temperature of 100oF or more. Your baby is not moving as much as usual. You faint. You get a bad headache with or without eye problems and abdominal pain. You have a seizure. You have unusual discharge from your vagina and abdominal pain. Abdominal pain is pretty common during . Your pain may or may not be related to your . You should follow-up closely with your OB provider so they can evaluate you and your baby. Untilyou follow-up with your regular provider, do the following: Avoid sex and do not put anything in your vagina. Drink clear fluids. Only take medications approved by your provider. MORE INFORMATION: Appendicitis: A possible cause of abdominal pain in any person who still has their appendix is acuteappendicitis. Appendicitis is often hard to diagnose. Testing does not always rule out early appendicitis or other causes of abdominal pain. Close follow-up with your provider and re-evaluations may beneeded to figure out the reason for your abdominal pain. Follow-up: It is very important that you make an appointment with your clinic and go to the appointment. If you do not follow-up with your primary provider, it may result in missing an important development which could result in permanent injury or disability and/or lasting pain. If there is any problem keeping your appointment, call your provider or return to the Emergency Department. Medications: Take your medications as directed by your provider today. Before using [id number], ask your provider and make sure to take the medications as directed. If you have any questions about medications, ask your provider. Diet: Resume your normal diet as much [...] have shown that probiotics help prevent diarrhea (loose stools) and other intestine problems (including C. diff [...] call or return to the Emergency Department. Remember that you can always come back to the Emergency Department if you are not able to see your regular provider in the amount of time listed above, if you get any new symptoms, or if there is anything that worries you. MBLER INSULATOR documented in this encounter Medications at Time of Discharge Medication Sig Dispensed Refills Start Date End Date FEROSUL 325 (65 Fe) MG TAKE 1 TABLET BY 0 021 04/18/2022 tablet MOUTH TWICE DAILY WITH MEALS ferrous sulfate (FEROSUL) Take 325 mg by mouth 0 02/14/2021 06/13/2022 325 (65 Fe) MG tablet daily documented as of this encounter ED Notes Juliana Prater RN - 08/03/2021 12:00 PM CST Pt refused an IV at this time. Requesting lab come to draw her blood. States she does not want to sit with an IV in her arm when she is not even sure she will need it for a CT scan. Discussed the fact that this may mean two separate venipunctures this am. Pt states she is fine with that. MBLER INSULATOR Juliana Prater RN - 08/03/2021 11:17 AM CST Pt with lots of questions regarding wait times. Refused to put a gown on; wants to see her provider first. Call light in hand. Jaycee Hernandez RN - 08/03/2021 8:30 AM CST This charge nurse was called by triage nurse to speak with patient. Patient requesting to obtain labresults. Patient states she was seen yesterday but left due to long wait times. She provided a urine sample at that time and wanted the results. Patient was educated that she would have to call medical records to obtain medical information. Patient stated that due to it being the weekend, she wantedthe records now. Patient was informed that this writer editor would be unable to provide them with the results due to procedures in place on how to obtain medical records. Patient then requested to speak to medical receptionist. Patient was told that due to it being the weekend, a medical receptionist was not here. She then requested to speak to another staff member who could print off results. Again, writer editor toldpatient that none of staff would be able to print off records due to procedure on obtaining medical records. Sterile Instrument Technician told patient that they would be more than happy to see patient in the ER again and that the provider would more than likely want to obtain a new UA specimen today. Patient inquired aboutwait times. Patient asked when do beds become available upstairs. Sterile Instrument Technician informed patient that wasdependent on a number of variable factors and there was no set time for beds to become available. Patient then stated that you guys need to have some compassion. Sterile Instrument Technician apologized that the patient felt like staff was being uncompassionate. Patient was told that staff understood their frustrations. Sterile Instrument Technician offered patient relations number and medical records number which patient took. Katty De Luna RN - 08/03/2021 8:03 AM CST A&O x4. ABC's intact. Pt arrives with c/o left upper abdominal pain that goes into back for past couple wks and got worse the past couple days. Pt here last night for same issue but left w/o being seen d/t wait time. Did let patient know the wait time today and she was wondering about if she could just go back pointing to the fast track area, or what time would be best to come back. She was also wondering about her urine result from yesterday and explained that the doctor would need to go over that with her then she was explained that the my chart has not uploaded results and ask if I could print out her results for her. Did explain that we could print the results after a provider went over her results with her. MBLER INSULATOR Caden Vaughan PA-C - 08/03/2021 7:49 AM CST History Chief Complaint: Abdominal Pain The history is provided by the patient. Destiney Cassidy is a 30 year old female who presents with left upper quadrant abdominal pain. Symptoms have been intermittent for three weeks ago, but worsened over the past 2 or 3 days as constant pain. She describes her pain as an ache that wraps around to her back and is tender to palpation. Associated symptoms include mucus like diarrhea, constipation, and dysuria (resolved). Denies blood in stool, fever, chills, chest pain, shortness of breath, rash, cough, nausea, and vomiting. Pushing the area and moving exacerbates her symptoms. She rates her pain 5/10, but 7/10 at its worse. She has not taken any medication. She had a section 11 months ago and in 2017 she had a blood clot in herleft jugular vein which was provoked . She denies being on blood thinners. She also mentions her father has a history of blood clots. Review of Systems Constitutional: Negative for chills and fever. Respiratory: Negative for cough and shortness of breath. Cardiovascular: Negative for chest pain. Gastrointestinal: Positive for abdominal pain, constipation and diarrhea. Negative for blood in stool, nausea and vomiting. Genitourinary: Positive for dysuria (resolved). Skin: Negative for rash. All other systems reviewed and are negative. Allergies: Cephalosporins Penicillins Ciprofloxacin Pollen Extract Metoclopramide Medications: Ferosul Past Medical History: Sensory disease Anxiety Graves disease Insomnia POTS (postural orthostatic tachycardia syndrome) Thrombosis of left jugular vein Trigeminal neuralgia Past Surgical History: Tonsillectomy [place] teeth extraction Myringotomy, insert tube bilateral Decompression lumbar Family History: Father: blood clot Social History: Presents alone. She is . PCP: Justin Loya Physical Exam Patient Vitals for the past 24 hrs: BP Temp Temp src Pulse Resp SpO2 08/03/21 1215 119/75 -- -- 64 14 100 % 08/03/21 0803 108/77 97.5 ??F (36.4 ??C) Temporal 79 16 100 % Physical Exam Constitutional: Pleasant. Cooperative. Eyes: Pupils equally round and reactive HENT: Head is normal in appearance. Oropharynx is normal with moist mucus membranes. Cardiovascular: Regular rate and rhythm and without murmurs. Respiratory: Normal respiratory effort, lungs are clear bilaterally. GI: LUQ TTP, otherwise non-tender, soft, non-distended. No guarding, rebound, or rigidity. Musculoskeletal: No asymmetry of the lower extremities, no tenderness to palpation. No CVA TTP. Skin: Normal, without rash. Neurologic: Cranial nerves grossly intact, normal cognition, no focal deficits. Alert and oriented x3. Psychiatric: Normal affect. Nursing notes and vital signs reviewed. Emergency Department Course ECG: ECG taken at 1204 Normal sinus rhythm Normal ECG Rate 67 bpm. MA interval 190 ms. QRS duration 86 ms. QT/QTc 388/409 ms. P-R-T axes 48 58 56. Laboratory: Labs Ordered and Resulted from Time of ED Arrival to Time of ED Departure URINE MACROSCOPIC WITH REFLEX TO MICRO - Normal Result Value Color Urine Straw Appearance Urine Clear Glucose Urine Negative Bilirubin Urine Negative Ketones Urine Negative Specific Drew Urine 1.005 Blood Urine Negative pH Urine 7.0 Protein Albumin Urine Negative Urobilinogen Urine Normal Nitrite Urine Negative Leukocyte Esterase Urine Negative D DIMER QUANTITATIVE - Normal D-Dimer Quantitative 0.28 COMPREHENSIVE METABOLIC PANEL - Normal Sodium 139 Potassium 3.8 Chloride 106 Carbon Dioxide (CO2) 28 Anion Gap 5 Urea Nitrogen 10 Creatinine 0.67 Calcium 9.3 Glucose 90 Alkaline Phosphatase 57 AST 12 ALT 19 Protein Total 7.5 Albumin 3.7 Bilirubin Total 1.2 GFR Estimate >90 LIPASE - Normal Lipase 105 TROPONIN I - Normal Troponin I High Sensitivity 4 HCG QUALITATIVE - Normal hCG Serum Qualitative Negative CBC WITH PLATELETS AND DIFFERENTIAL WBC Count 5.3 RBC Count 4.94 Hemoglobin 14.6 Hematocrit 44.8 MCV 91 MCH 29.6 MCHC 32.6 RDW 12.8 Platelet Count 269 % Neutrophils 57 % Lymphocytes 28 % Monocytes 10 % Eosinophils 3 % Basophils 2 % Immature Granulocytes 0 NRBCs per 100 WBC 0 Absolute Neutrophils 3.1 Absolute Lymphocytes 1.5 Absolute Monocytes 0.5 Absolute Eosinophils 0.2 Absolute Basophils 0.1 Absolute Immature Granulocytes 0.0 Absolute NRBCs 0.0 Emergency Department Course: Reviewed: I reviewed nursing notes, vitals, past medical history and Care Everywhere Assessments: 1145 I obtained history and examined the patient as noted above. 1240 I rechecked the patient and explained findings. 1305 I returned to recheck the patient and explain findings. Disposition: The patient was discharged to home. Impression & Plan Medical Decision Making: Desitney Cassidy is a 30 year old female who presents to the ED for evaluation of LUQ abdominal pain. This is been present last few weeks, however more constant over the last day. See HPI as above for additional details. Vitals and physical exam as above. Differential is broad and included atypical ACS, PUD, pancreatitis, hepatitis, PE, pneumonia, colitis, perforated viscus, SBO, rib contusion, shingles, kidney stone, pyelo, among others. Had long discussion with patient regarding work-up. Plan thatwas agreed upon was to obtain lab work and EKG as above and further discuss imaging at that time. Low suspicion for ACS, and troponin is negative despite 6+ hours of symptoms, making ACS very unlikely. No evidence for pancreatitis or hepatitis at this time. D-dimer is negative, making PE much less likely. Lungs are clear to auscultation. No falls or trauma to suggest for contusion. UA without RBCs orWBCs. Patient denies rash. Had discussion with patient regarding imaging after the above lab work was obtained. Based upon these findings, patient requested discharge to home, noting that she would notlike to pursue CT of the abdomen and x-ray of the chest. We discussed that we could not rule out remainder of nefarious pathologies as above without imaging, patient noted understanding of this. Given patient's reassuring vital signs and reassuring lab work, I did feel that this was reasonable. She states that her plan will be to follow-up with primary doctor with persistent symptoms for consideration of further work-up. Discussed low threshold to return to the ED with any new or worsening symptoms.[place] patient was safe for discharge to home. Tylenol for pain. Discussed reasons to return. All questions answered. Patient discharged to home in stable condition. Diagnosis: ICD-10-CM 1. LUQ abdominal pain R10.12 2. Left flank pain R10.9 Scribe Disclosure: I, Chidi Velazquez, am serving as a scribe at 11:07 AM on 08/03/2021 to document services personally performed by Caden Vaughan PA-C based on my observations and the provider's statements to me. Discussed reasons to return. All questions answered. Patient discharged to home in stable condition. Caden Vaughan PA-C 08/03/21 1508 MBLER INSULATOR documented in this encounter Plan of Treatment Not on filedocumented as of this encounter Procedures Procedure Name Priority Date/Time Associated Comments Diagnosis CBC WITH PLATELETS AND STAT 08/03/2021 12:12 R esults for this DIFFERENTIAL PM ASSEMBLER INSULATOR procedure are i n the results section. CBC WITH PLATELETS & STAT 08/03/2021 12:12 Res ults for this DIFFERENTIAL PM ASSEMBLER INSULATOR procedure are i n the results section. TROPONIN I STAT 08/03/2021 12:12 Results for this PM ASSEMBLER INSULATOR procedure are i n the results section. LIPASE STAT 08/03/2021 12:12 Results for this PM ASSEMBLER INSULATOR procedure are i n the results section. HCG QUALITATIVE STAT 08/03/2021 12:12 Results for this PM ASSEMBLER INSULATOR procedure are i n the results section. D DIMER QUANTITATIVE STAT 08/03/2021 12:12 Res ults for this PM ASSEMBLER INSULATOR procedure are i n the results section. COMPREHENSIVE STAT 08/03/2021 12:12 Results fo r this METABOLIC PANEL PM ASSEMBLER INSULATOR procedure ar e in the results section. EKG 12-LEAD, TRACING STAT 08/03/2021 12:04 Res ults for this ONLY PM ASSEMBLER INSULATOR procedure are i n the results section. URINE MACROSCOPIC WITH STAT 08/03/2021 11:15 R esults for this REFLEX TO MICRO AM ASSEMBLER INSULATOR procedure ar e in the results section. documented in this encounter Results CBC with platelets and differential (08/03/2021 12:12 PM ASSEMBLER INSULATOR) Analysis Performed At Patho logist Time Signature WBC Count 5.3 4.0 - 11.0 08/03/2021 [facility] 10e3/uL 12:23 PM ASSEMBLER INSULATOR RBC Count 4.94 3.80 - 08/03/2021 [facility] 5.20 12:23 PM ASSEMBLER INSULATOR 10e6/uL Hemoglobin 14.6 11.7 - 08/03/2021 [facility] 15.7 g/dL 12:23 PM ASSEMBLER INSULATOR Hematocrit 44.8 35.0 - 08/03/2021 [facility] 47.0 % 12:23 PM ASSEMBLER INSULATOR MCV 91 78 - 100 08/03/2021 [facility] fL 12:23 PM ASSEMBLER INSULATOR MCH 29.6 26.5 - 08/03/2021 [facility] 33.0 pg 12:23 PM ASSEMBLER INSULATOR MCHC 32.6 31.5 - 08/03/2021 [facility] 36.5 g/dL 12:23 PM ASSEMBLER INSULATOR RDW 12.8 10.0 - 08/03/2021 [facility] 15.0 % 12:23 PM ASSEMBLER INSULATOR Platelet Count 269 150 - 450 08/03/2021 [facility] 10e3/uL 12:23 PM ASSEMBLER INSULATOR % Neutrophils 57 % 08/03/2021 [facility] 12:23 PM ASSEMBLER INSULATOR % Lymphocytes 28 % 08/03/2021 [facility] 12:23 PM ASSEMBLER INSULATOR % Monocytes 10 % 08/03/2021 [facility] 12:23 PM ASSEMBLER INSULATOR % Eosinophils 3 % 08/03/2021 [facility] 12:23 PM ASSEMBLER INSULATOR % Basophils 2 % 08/03/2021 [facility] 12:23 PM ASSEMBLER INSULATOR % Immature 0 % 08/03/2021 [facility] Granulocytes 12:23 PM ASSEMBLER INSULATOR NRBCs per 100 WBC 0 <1 /100 08/03/2021 [facility] RY 12:23 PM ASSEMBLER INSULATOR Absolute 3.1 1.6 - 8.3 08/03/2021 [facility] Neutrophils 10e3/uL 12:23 PM ASSEMBLER INSULATOR Absolute 1.5 0.8 - 5.3 08/03/2021 [facility] Lymphocytes 10e3/uL 12:23 PM ASSEMBLER INSULATOR Absolute 0.5 0.0 - 1.3 08/03/2021 [facility] Monocytes 10e3/uL 12:23 PM ASSEMBLER INSULATOR Absolute 0.2 0.0 - 0.7 08/03/2021 [facility] Eosinophils 10e3/uL 12:23 PM ASSEMBLER INSULATOR Absolute 0.1 0.0 - 0.2 08/03/2021 [facility] Basophils 10e3/uL 12:23 PM ASSEMBLER INSULATOR Absolute Immature 0.0 <=0.4 08/03/2021 [facility] Granulocytes 10e3/uL 12:23 PM ASSEMBLER INSULATOR Absolute NRBCs 0.0 10e3/uL 08/03/2021 [facility] 12:23 PM ASSEMBLER INSULATOR Specimen Anatomical Collection Method / Collection Time Recei ching Time (Source) Location / Volume Laterality Blood STRUCTURE OF RIGHT Venipuncture / 08/03/2021 12:12 UPPER LIMB / Unknown PM ASSEMBLER INSULATOR 12:20 PM ASSEMBLER INSULATOR Unknown Caden Vaughan PA-C LAB - BLOOD ORDERABLES Performing Organization Address City/State/ZIP Code [place] [address] [facility] [address] Lab (1st floor, no room number) HCG qualitative Blood (08/03/2021 12:12 PM ASSEMBLER INSULATOR) Patholo gist Method Time Signature hCG Serum Negative Negative CARLOS 08/03/2021 [facility] Qualitative 12:43 PM ASSEMBLER INSULATOR Comment: This test is for screening purp oses. Results should be interpreted along with the clinical picture. Confirmation testing is available if warranted by ordering [id number], HCG Quantitative . Specimen Anatomical Collection Method / Collection Time Recei ching Time (Source) Location / Volume Laterality Blood STRUCTURE OF RIGHT Venipuncture / 08/03/2021 12:12 UPPER LIMB / Unknown PM ASSEMBLER INSULATOR 12:20 PM ASSEMBLER INSULATOR Unknown Caden Vaughan PA-C LAB - BLOOD ORDERABLES Performing Organization Address City/[facility]/ZIP Code [place] [address] [facility] [address] Lab (1st floor, no room number) Troponin I (08/03/2021 12:12 PM ASSEMBLER INSULATOR) P athologist Signature Troponin I High 4 <54 ng/L 08/03/2021 [facility] Sensitivity 12:42 PM ASSEMBLER INSULATOR Comment: This Troponin-I result was obta ined using a Siemens Dimension [place] High Sensitivity Troponin-I assay (TNIH). Eff ective 06/11/21, nine labs/sites in the [facility] switched from a Siemens [place] Contemporary Troponin I assay (CTNI) to a Siemens [place] High-Sensitivity Troponi n I assay (TNIH). Specimen Anatomical Collection Method / Collection Time Recei ching Time (Source) Location / Volume Laterality Blood STRUCTURE OF RIGHT Venipuncture / 08/03/2021 12:12 UPPER LIMB / Unknown PM ASSEMBLER INSULATOR 12:20 PM ASSEMBLER INSULATOR Unknown Caden CADET-C LAB - BLOOD ORDERABLES Performing Organization Address City/[facility]/[place] [address] Care [facility] [address] Lab (1st floor, no room number) Lipase (08/03/2021 12:12 PM ASSEMBLER INSULATOR) athologist Signature Lipase 105 73 - 393 U/L 08/03/2021 [facility] 12:40 PM ASSEMBLER INSULATOR Specimen Anatomical Collection Method / Collection Time Recei ching Time (Source) Location / Volume Laterality Blood STRUCTURE OF RIGHT Venipuncture / 08/03/2021 12:12 UPPER LIMB / Unknown PM ASSEMBLER INSULATOR 12:20 PM ASSEMBLER INSULATOR Unknown Caden CADET-C LAB - BLOOD ORDERABLES Performing Organization Address City/[facility]/ZIP [facility] [place] [address] [facility] [address] Lab (1st floor, no room number) Comprehensive metabolic panel (08/03/2021 12:12 PM ASSEMBLER INSULATOR) P athologist Signature Sodium 139 133 - 144 08/03/2021 [facility] mmol/L 12:40 PM ASSEMBLER INSULATOR Potassium 3.8 3.4 - 5.3 08/03/2021 [facility] mmol/L 12:40 PM ASSEMBLER INSULATOR Chloride 106 94 - 109 08/03/2021 [facility] mmol/L 12:40 PM ASSEMBLER INSULATOR Carbon Dioxide 28 20 - 32 08/03/2021 [facility] (CO2) mmol/L 12:40 PM ASSEMBLER INSULATOR Anion Gap 5 3 - 14 08/03/2021 [facility] mmol/L 12:40 PM ASSEMBLER INSULATOR Urea Nitrogen 10 7 - 30 08/03/2021 [facility] mg/dL 12:40 PM ASSEMBLER INSULATOR Creatinine 0.67 0.52 - 08/03/2021 [facility] 1.04 mg/dL 12:40 PM ASSEMBLER INSULATOR Calcium 9.3 8.5 - 10.1 08/03/2021 [facility] mg/dL 12:40 PM ASSEMBLER INSULATOR Glucose 90 70 - 99 08/03/2021 [facility] mg/dL 12:40 PM ASSEMBLER INSULATOR Alkaline 57 40 - 150 08/03/2021 [facility] Phosphatase U/L 12:40 PM ASSEMBLER INSULATOR AST 12 0 - 45 U/L 08/03/2021 [facility] 12:40 PM ASSEMBLER INSULATOR ALT 19 0 - 50 U/L 08/03/2021 [facility] 12:40 PM ASSEMBLER INSULATOR Protein Total 7.5 6.8 - 8.8 08/03/2021 [facility] g/dL 12:40 PM ASSEMBLER INSULATOR Albumin 3.7 3.4 - 5.0 08/03/2021 [facility] g/dL 12:40 PM ASSEMBLER INSULATOR Bilirubin Total 1.2 0.2 - 1.3 08/03/2021 [facility] mg/dL 12:40 PM ASSEMBLER INSULATOR GFR Estimate >90 >60 08/03/2021 [facility] mL/min/1.7 12:40 PM ASSEMBLER INSULATOR 3m2 Comment: Effective July 09, 2021 eGF Rcr in adults is calculated using the 2020 CKD-EPI creatinine equation which includ es age and gender (Abelardo et al., NEJM, DOI: 10.1056/FGBOvq2063972) Specimen Anatomical Collection Method / Collection Time Recei ching Time (Source) Location / Volume Laterality Blood STRUCTURE OF RIGHT Venipuncture / 08/03/2021 12:12 UPPER LIMB / Unknown PM ASSEMBLER INSULATOR 12:20 PM ASSEMBLER INSULATOR Unknown Caden Vaughan PA-C LAB - BLOOD ORDERABLES Performing Organization Address City/State/ZIP Code [place] [address] Care Lab [address] Lab (1st floor, no room number) D dimer quantitative (08/03/2021 12:12 PM ASSEMBLER INSULATOR) Analysis Performed At Patho logist Time Signature D-Dimer 0.28 0.00 - 08/03/2021 LABORATORY Quantitative 0.50 ug/mL 12:34 PM ASSEMBLER INSULATOR FEU Specimen Anatomical Collection Method / Collection Time Recei ching Time (Source) Location / Volume Laterality Blood STRUCTURE OF RIGHT Venipuncture / 08/03/2021 12:12 UPPER LIMB / Unknown PM ASSEMBLER INSULATOR 12:20 PM ASSEMBLER INSULATOR Unknown Narrative LABORATORY - 08/03/2021 12:34 PM ASSEMBLER INSULATOR This D-dimer assay is intended for use i n conjunction with a clinical pretest probability assessment model to exclude pulmonary embolism (PE) and deep venous thrombosis (DVT) in outpatients suspecte d of PE or DVT. The cut-off value is 0.50 ug/mL FEU. Caden Vaughan PA-C LAB - BLOOD ORDERABLES Performing Organization Address City/State/ZIP Code [place] [phone] Care Lab [address] Lab (1st floor, no room number) EKG 12-lead, tracing only (08/03/2021 12:04 PM ASSEMBLER INSULATOR) Component Value Ref Range Test Analysis Performed Pathologis t Method Time At Signature Systolic Blood mmHg RADIOLOGY Pressure RESULTS Diastolic Blood mmHg RADIOLOGY Pressure RESULTS Ventricular Rate 67 BPM RADIOLOGY RESULTS Atrial Rate 67 BPM RADIOLOGY RESULTS MA Interval 190 ms RADIOLOGY RESULTS QRS Duration 86 ms RADIOLOGY RESULTS QT 388 ms RADIOLOGY RESULTS QTc 409 ms RADIOLOGY RESULTS P [place] 48 degrees RADIOLOGY RESULTS R AXIS 58 degrees RADIOLOGY RESULTS T [place] 56 degrees RADIOLOGY RESULTS Interpretation Sinus rhythm RADIOLOGY ECG Normal ECG RESULTS When compared with ECG of 30-JUL-2021 16:10, No significant change was found Confirmed by - EMERGENCY CAMMY Henao, PHYSICIAN ([id number]), editor producer LAVERN OCAMPO ([id number]) on 08/05/2021 7:11:25 AM Specimen Anatomical Collection Method Collection Time Receive d Time (Source) Location / / Volume Laterality 08/03/2021 12:04 08/05/2021 7:11 PM ASSEMBLER INSULATOR AM ASSEMBLER INSULATOR Caden Vaughan PA-C ECG ORDERABLES Performing Organization Address City/State/ZIP Code Phon e Number RADIOLOGY RESULTS UA reflex to Microscopic (08/03/2021 11:15 AM ASSEMBLER INSULATOR) Patholo gist Method Time Signature Color Urine Straw Colorless, 08/03/2021 LABORATORY Straw, Light 11:48 AM Yellow, ASSEMBLER INSULATOR Yellow Appearance Urine Clear Clear 08/03/2021 RH LABORATOR Y 11:48 AM ASSEMBLER INSULATOR Glucose Urine Negative Negative 08/03/2021 LABORATORY mg/dL 11:48 AM ASSEMBLER INSULATOR Bilirubin Urine Negative Negative 08/03/2021 LABORATORY 11:48 AM ASSEMBLER INSULATOR Ketones Urine Negative Negative 08/03/2021 LABORATORY mg/dL 11:48 AM ASSEMBLER INSULATOR Specific Drew 1.005 1.003 - 08/03/2021 LABORATOR Y Urine 1.035 11:48 AM ASSEMBLER INSULATOR Blood Urine Negative Negative 08/03/2021 LABORATORY 11:48 AM ASSEMBLER INSULATOR pH Urine 7.0 5.0 - 7.0 08/03/2021 LABORATORY 11:48 AM ASSEMBLER INSULATOR Protein Albumin Negative Negative 08/03/2021 LABORATORY Urine mg/dL 11:48 AM ASSEMBLER INSULATOR Urobilinogen Normal Normal, 2.0 08/03/2021 LABORATORY Urine mg/dL 11:48 AM ASSEMBLER INSULATOR Nitrite Urine Negative Negative 08/03/2021 LABORATORY 11:48 AM ASSEMBLER INSULATOR Leukocyte Negative Negative 08/03/2021 LABORATORY Esterase Urine 11:48 AM ASSEMBLER INSULATOR Specimen Anatomical Collection Method Collection Time Receive d Time (Source) Location / / Volume Laterality Urine MID-STREAM URINE Non-blood 08/03/2021 11:15 022 SPECIMEN / Unknown Collection / AM ASSEMBLER INSULATOR 11:19 AM ASSEMBLER INSULATOR Unknown Narrative LABORATORY - 08/03/2021 11:48 AM ASSEMBLER INSULATOR Microscopic not indicated Caden Vaughan PA-C LAB - URINE ORDERABLES Performing Organization Address City/State/ZIP Code [place] [phone] Care Lab [address] Lab (1st floor, no room number) documented in this encounter Visit Diagnoses Diagnosis LUQ abdominal pain Abdominal pain, left upper quadrant Left flank pain Abdominal pain, unspecified site documented in this encounter Additional Health Concerns Assessment Noted Time PHQ-9 Depression Total Score: 2 01/26/2019 11:18 AM CD T documented as of this encounter Care Teams Activities Attendant Relationship Specialty Start Date End Date Justin Loya MD PCP - General Family Practice 02/19/11 [facility] [address] [place] [phone] Silas Santiago MD MD Pain Clinic 11/29/13 [facility] [address] [place] [address] documented as of this encounter
--- OUTSIDE RECORDS SUMMARY | 2022-06-23 17:41 | XMS_ITS | Encounter Summary ---
:1990 Author Organization [place] Address [address] [place] [address] Care Team Providers Name Role Phone Justin Loya MD Primary Care Provider Silas Santiago MD Unavailable Silas Dean MD Unavailable Silas Jorge MD Unavailable Reason for Visit Reason Comments Shortness of Breath Encounter Details Date Type Department Care Team Description 01/05/2021 Emergency [facility] Gonzales Wolff Dyspnea, unspecified [facility] MD Samuel type [address] [facility] [place], [place] [address] [address] [facility] [phone] [place], [place] [address] (Wo rk) Social History Tobacco Use Types Packs/Day Years Used Date Smoking Tobacco: Never Smokeless Tobacco: Never Alcohol Use Standard Drinks/Week Comments No 0 (1 standard drink = 0.6 oz pure alcoho l) Sex Assigned at Date Recorded Not on file COVID-19 Exposure Response Date Recorded In the last month, have you been in contact with No / Unsure 01/05/2021 9:57 PM CDT someone who was confirmed or suspected to have Coronavirus / COVID-19? documented as of this encounter Last Filed Vital Signs Vital Sign Reading Time Taken Comments Blood Pressure 123/80 01/05/2021 11:15 PM CDT Pulse 72 01/05/2021 11:15 PM CDT Temperature 36.4 ??C (97.5 ??F) 01/05/2021 10:07 PM CDT Respiratory Rate 18 01/05/2021 10:07 PM CDT Oxygen Saturation 97% 01/05/2021 11:15 PM CDT Inhaled Oxygen Concentration - - Weight 62.6 kg (138 lb) 01/05/2021 10:07 PM CDT Height 170.2 cm (5' 7) 01/05/2021 10:07 PM CDT Body Mass Index 21.61 01/05/2021 10:07 PM CDT documented in this encounter Discharge Instructions Discharge InstructionsGoGonzales montero MD - 01/05/2021 11:21 PM CDT Though your oxygen saturations at home are normal in the emergency room they have been 97%. Your lung showed no signs of wheezing with environmental allergies you can take [id number] Claritin or Monica-D to assist in this. There is no signs of pneumonia and your Covid test is negative. We have d iscussed further work-ups for PE and you have not wanted to do this. If you develop worsening shortness of breath with exertion high fever or other concerns the emergency room here is to reassess you at any point. AttachmentsThe following attachments cannot be sent through Care Everywhere. Shortness of Breath (Dyspnea) (Puerto Rican)documented in this encounter Medications at Time of [...] documented as of this encounter ED Notes Jaz Robsion RN - 01/05/2021 11:24 PM CDT Patient alert and oriented. Respirations even and unlabored. All discharge education given. All questions answered. Patient denies further needs and states that they are ready to leave. Patient ambulated out of the ER with steady gait. Phil Borrero RN - 01/05/2021 10:06 PM CDT Here for sob and chest tightness started yesterday associated with lightheadedness and sore throat. Stated that her home oximeter 89-92%. ABCs intact. Gonzales Wolff MD - 01/05/2021 9:56 PM CDT History Chief Complaint: Shortness of Breath HPI Destiney Cassidy is a 30 year old female with history of anxiety who presents with shortness of breath. The patient reports that she recently developed chest tightness, shortness of breath, and mild sore throat. She explains that it is hard to get a deep breath, and her oxygen reader at home read 89-92. No fevers. Has a history of a blood clot in her neck, however this was due to an injection for an MRI. No recent surgeries, except for that was 4 months ago. Review of Systems Constitutional: Negative for fever. HENT: Positive for sore throat. Respiratory: Positive for chest tightness and shortness of breath. All other systems reviewed and are negative. Allergies: Cefprozil Penicillins Cephalosporins Ciprofloxacin ?? Medications: Levalbuterol inhaler Ferrous sulfate Lovenox ?? Past Medical History: Anxiety Graves disease Insomnia POTS Left jugular vein thrombosis Trigeminal neuralgia ?? Past Surgical History: Lumbar decompression, L5-S1 Tonsillectomy Myringotomy, bilateral tube insertion C section ?? Family History: She denies past family history. ?? Social History: Presents to ED alone. PCP: Justin Loya Physical Exam Patient Vitals for the past 24 hrs: BP Temp Temp src Pulse Resp SpO2 Height Weight 01/05/21 2315 123/80 -- -- 72 -- 97 % -- -- 01/05/21 2300 120/65 -- -- 73 -- 97 % -- -- 01/05/21 2245 129/72 -- -- -- -- 97 % -- -- 01/05/21 2230 -- -- -- -- -- 96 % -- -- 01/05/21 2207 129/75 97.5 ??F (36.4 ??C) Oral 86 18 96 % 1.702 m (5' 7) 62.6 kg (138 lb) Physical Exam Vitals signs and nursing note reviewed. HENT: Head: Normocephalic. Mouth/Throat: Mouth: Mucous membranes are moist. Eyes: Pupils: Pupils are equal, round, and reactive to light. Neck: Musculoskeletal: Normal range of motion. Cardiovascular: Rate and Rhythm: Normal rate and regular rhythm. Pulmonary: Effort: Pulmonary effort is normal. Breath sounds: Normal breath sounds. Musculoskeletal: Normal range of motion. Skin: General: Skin is warm. Capillary Refill: Capillary refill takes less than 2 seconds. Neurological: General: No focal deficit present. Mental Status: She is alert. Psychiatric: Mood and Affect: Mood is anxious. Emergency Department Course ECG: ECG taken at 2234, ECG read at 2304 Normal sinus rhythm Normal ECG Rate 70 bpm. TX interval 182 ms. QRS duration 88 ms. QT/QTc 400/432 ms. P-R-T axes 59 54 55. Imaging: Chest XR, PA & LAT Negative chest. Reading per radiology Laboratory: Symptomatic COVID-19 virus (Coronavirus) by PCR: Negative Procedures None Emergency Department Course: Reviewed: 2224 I reviewed the patient's nursing notes, vitals, past medical records, Care Everywhere. Assessments: 2228 I performed an exam of the patient as documented above. Disposition: The patient was discharged to home. Impression & Plan Medical Decision Making: She presents with complaints of shortness of breath. Patient seems to be rebound COVID-19 that has no fever no change in smell or taste Covid testing is performed as per patient and is negative. Chest x-ray is negative for pneumothorax or pneumonia. Patient is PERC negative and does not require work-up for PE no clinical concern for anemia. No signs of wheezing. Because of her sensation of shortness of breath is unclear patient is after discharge and follow-up with primary care no need for advanced imaging given normal oxygen saturations normal respiratory rate normal lung sounds no signs of tachypnea or hypoxia. No history of blood clots in the neck patient was offered evaluation for this using D-dimer patient refused. Diagnosis: ICD-10-CM 1. Dyspnea, unspecified type R06.00 Scribe Disclosure: I, Artem Street, am serving as a scribe at 10:24 PM on 01/05/2021 to document services personallyperformed by Gonzales Wolff MD based on my observations and the provider's statements to me. Gonzales Wolff MD 01/09/21 1407 documented in this encounter Plan of Treatment Not on filedocumented as of this encounter Procedures Procedure Name Priority Date/Time Associated Diagnosis Comme nts XR CHEST 2 VIEWS STAT 01/05/2021 10:48 PM Resu lts for this CDT procedure are i n the results section. SARS-COV-2 STAT 01/05/2021 10:38 PM Results for this (COVID-19) VIRUS CDT procedure a re in RT-PCR the results section. EKG 12-LEAD, STAT 01/05/2021 10:34 PM Results for this TRACING ONLY CDT procedure are i n the results section. documented in this encounter Results Chest XR, PA & LAT (01/05/2021 10:48 PM CDT) Anatomical Region Laterality Modality Chest Digital Radiography Specimen (Source) Anatomical Collection Method Collection Time Re ceived Time Location / / Volume Laterality 01/05/2021 10:48 PM CDT Impressions 01/05/2021 10:52 PM CDT IMPRESSION: Negative chest. Narrative 01/05/2021 10:52 PM CDT EXAM: XR CHEST 2 VW LOCATION: [facility] DATE/TIME: 01/05/2021 10:48 PM INDICATION: ; chest pain; COMPARISON: 05/01/2019 Procedure Note Saroj Torre MD - 01/05/2021Formatt ing of this note might be different from the original. EXAM: XR CHEST 2 VW LOCATION: [facility] DATE/TIME: 01/05/2021 10:48 PM INDICATION: ; chest pain; COMPARISON: 05/01/2019 IMPRESSION: Negative chest. Gonzales Wolff MD IMG DIAGNOSTIC IMAGING ORDER ANGELES Symptomatic SARS-CoV-2 COVID-19 Virus (Coronavirus) by PCR (01/05/2021 10:38 PM CDT) [facility] Method Time Signature SARS-CoV-2 Nasopharyngeal 01/05/2021 [place] Virus 10:38 PM CDT [facility] Source SARS-CoV-2 NEGATIVE 01/05/2021 [place] PCR Result 11:09 PM [facility] Comment: SARS-CoV2 (COVID-19) RNA not de tected, presumed negative. SARS-CoV-2 PCR Comment (Note) 01/05/2021 11 :[address] [facility] Comment: Testing was performed using the gertrudis SA RS-CoV-2 & Influenza A/B Assay on the gertrudis Sagrario System. This test should be ordered for the dete ction of SARS-COV-2 in individuals who meet SARS-CoV-2 clinical and/or epidemi ological criteria. Test performance is unknown in asymptomatic patients. This test is for in vitro diagnostic use under the FDA EUA for laboratories certified under CLIA to perform moderate and/or high complexity testing. This test has not been FDA cleared or approve d. A negative test does not rule out the pr esence of PCR inhibitors in the specimen or target RNA in concentration below the limit of detection for the assay. The possibility of a false negati ve should be considered if the patient's recent exposure or clinical pr esentation suggests COVID-19. [facility] are certi fied under the Clinical Laboratory Improvement Amendments of 1988 (CLIA-88) as qualified to perform moderate and/or high complexity laboratory testin g. Specimen (Source) Anatomical Collection Method Collection Time Re ceived Time Location / / Volume Laterality Specimen from 01/05/2021 10:38 01/05/2021 nasopharyngeal PM CDT 10:46 PM CDT structure (specimen) Gonzales Wolff MD LAB - MICRO GENERAL ORDERABL ES Performing Organization Address City/[facility]/ZIP [facility] Phon e Number [facility] [address] [place], [place] [address] [facility] [address] [place], [place] [address] [facility] [phone] EKG 12 lead (01/05/2021 10:34 PM CDT) [facility] gist Method Time Signature Interpretation ECG Click View RADIOLOGY Image link RESULTS to view waveform and result Specimen (Source) Anatomical Collection Method Collection Time Re ceived Time Location / / Volume Laterality 01/05/2021 10:34 PM CDT Gonzales Wolff MD ECG ORDERABLES Performing Organization Address City/[facility] Phon e Number RADIOLOGY RESULTS documented in this encounter Visit Diagnoses Diagnosis Dyspnea, unspecified type documented in this encounter Additional Health Concerns Assessment Noted Time PHQ-9 Depression Total Score: 2 01/26/2019 11:18 AM CD T documented as of this encounter Care Teams Molded Frames Assembler Relationship Specialty Start Date End Date Justin Loya MD PCP - General Family Practice 02/19/11 [facility] [address] [place] [phone] Silas Santiago MD MD Pain Clinic 11/29/13 [facility] [address] [place] [address] Silas Dean, Assigned Neuroscience 05/11/20 03/02/21 MD Provider [address] [place] [address] [id number] [place] [address] Silas Jorge MD Assigned Surgical Provider 05/11/[address] [place] [address] documented as of this encounter
--- OUTSIDE RECORDS SUMMARY | 2022-06-23 17:41 | XMS_ITS | Encounter Summary ---
:1990 Author Organization [place] Address [address] [facility] [place] [address] Care Team Providers Name Role Phone Justin Loya MD Primary Care Provider Silas Santiago MD Unavailable Reason for Visit Reason Comments Consult C section incisional hernia Encounter Details Date Type Department Care Team Description 08/01/2021 Office Visit [facility] Caden Leone Left leg weakness Surgery Clinic MD Diaz (Primary Dx) [place] [address] [facility] [address] [place] [address] [address] [place], [place] [phone] (Wo rk) [address] [phone] Social History Tobacco Use Types Packs/Day Years Used Date Smoking Tobacco: Never Smokeless Tobacco: Never Tobacco Cessation: Counseling Given: Yes Alcohol Use Standard Drinks/Week Comments No 0 (1 standard drink = 0.6 oz pure alcoho l) Sex Assigned at Date Recorded Not on file COVID-19 Exposure Response Date Recorded In the last month, have you been in contact with No / Unsure 08/01/2021 9:24 AM PERFORMANCE IMPROVEMENT MANAGER someone who was confirmed or suspected to have Coronavirus / COVID-19? documented as of this encounter Last Filed Vital Signs Vital Sign Reading Time Taken Comments Blood Pressure 114/68 08/01/2021 9:27 AM PERFORMANCE IMPROVEMENT MANAGER Pulse 85 08/01/2021 9:27 AM PERFORMANCE IMPROVEMENT MANAGER Temperature - - Respiratory Rate 16 08/01/2021 9:27 AM PERFORMANCE IMPROVEMENT MANAGER Oxygen Saturation 99% 08/01/2021 9:27 AM PERFORMANCE IMPROVEMENT MANAGER Inhaled Oxygen Concentration - - Weight 63 kg (139 lb) 08/01/2021 9:27 AM PERFORMANCE IMPROVEMENT MANAGER Height 170.2 cm (5' 7) 08/01/2021 9:27 AM PERFORMANCE IMPROVEMENT MANAGER Body Mass Index 21.77 08/01/2021 9:27 AM PERFORMANCE IMPROVEMENT MANAGER documented in this encounter Progress Notes Caden Leone MD - 08/01/2021 9:30 AM CST Destiney is a 30 year old female who presents for hernia evaluation. The patient reports that after anemergency in August 2020--requiring general anesthesia as well as a TAP block, she has had LLQ pain and tenderness as well as subjective left leg weakness, especially when lifting her thigh. She has a sensation of tugging in the LLQ when cycling as well. She has not noted any lump or bulge. She saw a neurologist last year and did not have any conclusion from that consult. She has a history of lumbar surgery but states that she had a lumbar MRI recently that was normal by her report. Constipation Yes DysuriaNo Cough No Smoking No Pt's chart has been reviewed for PMH, PSH, allergies, medications, social and family history. ROS: Pulm: No shortness of breath, dyspnea on exertion, cough, or hemoptysis CV: negative ABD: See chief complaint : Negative All other systems on 10 point review are negative. Resp 16 Ht 1.702 m (5' 7) Wt 63 kg (139 lb) LMP 07/12/2021 BMI 21.77 kg/m?? Physical exam: Patient able to get up on table without difficulty. abdomen is soft without significant tenderness, masses, organomegaly or guarding bowel sounds are positive and no caput medusa noted. She has a well healed low transverse scar without abnormality. She has no palpable umbilical hernia at present. There is no tenderness in the LLQ, no trigger point. Thigh flexion strength is normal. Imaging CT from August 2020 (shortly after her c section) shows a broad based fat-containing umbilical hernia. Assesment: no hernia appreciated at present. Her symptoms seem neurologic in etiology and I wonder if they are the lobsterman sequelae of either positioning or her TAP block. I do not see any utility in additional imaging as my index of suspicion for a hernia is quite low. I think she would benefit from an new neurology consult. I also discussed a possible benefit to meeting with one of our MDAs to see if her symptoms would be typical of a TAP block complication. We will arrange this latter consult while she is in office today. Caden Lester MD 08/01/2021 9:35 AM Please route or send letter to: Referring provider (Dr Ramsay) ORMANCE IMPROVEMENT MANAGER documented in this encounter Plan of Treatment Not on filedocumented as of this encounter Visit Diagnoses Diagnosis Left leg weakness - Primary Other musculoskeletal symptoms referable to limbs documented in this encounter Additional Health Concerns Assessment Noted Time PHQ-9 Depression Total Score: 2 01/26/2019 11:18 AM CD T documented as of this encounter Care Teams Cyber Engineer Relationship Specialty Start Date End Date Justin Loya MD PCP - General Family Practice 02/19/11 [facility] [address] [place] [phone] Silas Santiago MD MD Pain Clinic 11/29/13 [facility] [address] [place] [address] documented as of this encounter
--- OUTSIDE RECORDS SUMMARY | 2022-06-23 17:41 | XMS_ITS | Encounter Summary ---
:1990 Author Organization [place] Address [facility] [place] [address] Care Team Providers Name Role Phone Justin Loya MD Primary Care Provider Silas Santiago MD Unavailable Silas Dean MD Unavailable Silas Jorge MD Unavailable Encounter Details Date Type Department Care Team Description 01/05/2021 Travel Social History Tobacco Use Types Packs/Day [...] documented as of this encounter Care Teams Structural Analysis Engineer Relationship Specialty Start Date End Date Justin Loya MD PCP - General Family Practice 02/19/11 [facility] [address] [place] [phone] Silas Santiago MD MD Pain Clinic 11/29/13 [facility] [address] [place], [place] [phone] Silas Dean, Assigned Neuroscience 05/11/20 03/02/21 MD Provider [address] [place] [address] [id number] [place], [place] [phone] Silas Jorge MD Assigned Surgical Provider 05/11/[address] [place] [id number] documented as of this encounter
--- OUTSIDE RECORDS SUMMARY | 2022-06-23 17:41 | XMS_ITS | Encounter Summary ---
:1990 Author Organization [place] Address [facility] [place] [address] Care Team Providers Name Role Phone Justin Loya MD Primary Care Provider Silas Santiago MD Unavailable Encounter Details Date Type Department Care Team Description 07/30/2021 Travel Social History Tobacco Use Types Packs/Day Years Used Date Smoking Tobacco: Never Smokeless Tobacco: Never Alcohol Use Standard Drinks/Week Comments No 0 (1 standard drink = 0.6 oz pure alcoho l) Sex Assigned at Date Recorded Not on file COVID-19 Exposure Response Date Recorded In the last month, have you been in contact with No / Unsure 07/30/2021 3:55 PM WET MACHINE CUTTER someone who was confirmed or suspected to have Coronavirus / COVID-19? documented as of this encounter Plan of Treatment Not on filedocumented as of this encounter Visit Diagnoses Not on filedocumented in this encounter Additional Health Concerns Assessment Noted Time PHQ-9 Depression Total Score: 2 01/26/2019 11:18 AM CD T documented as of this encounter Care Teams Overhead Garage Door Hanger Relationship Specialty Start Date End Date Justin Loya MD PCP - General Family Practice 02/19/11 [facility] [address] [place] [address] Silas Santiago MD MD Pain Clinic 11/29/13 [facility] [address] [place] [address] documented as of this encounter
--- OUTSIDE RECORDS SUMMARY | 2022-06-23 17:41 | XMS_ITS | Encounter Summary ---
:1990 Author Organization [place] Address [address] [facility] [place] [address] Care Team Providers Name Role Phone Justin Loya MD Primary Care Provider Silas Santiago MD Unavailable Reason for Visit Reason Comments Dizziness Encounter Details Date Type Department Care Team Description 03/30/2021 [facility] John Stapleton MD Emergency Dept [facility] [address] [address] [facility] [place][note 2] [phone] [place], [place] [id number] (Wo rk) Social History Tobacco Use Types Packs/Day Years Used Date Smoking Tobacco: Never Smokeless Tobacco: Never Alcohol Use Standard Drinks/Week Comments No 0 (1 standard drink = 0.6 oz pure alcoho l) Sex Assigned at Date Recorded Not on file documented as of this encounter Last Filed Vital Signs Vital Sign Reading Time Taken Comments Blood Pressure 122/76 03/30/2021 7:53 PM CDT Pulse 90 03/30/2021 7:53 PM CDT Temperature 36.9 ??C (98.4 ??F) 03/30/2021 7:53 PM CDT Respiratory Rate 20 03/30/2021 7:53 PM CDT Oxygen Saturation 96% 03/30/2021 7:53 PM CDT Inhaled Oxygen Concentration - - [...] 0 08/01/2021 (LOVENOX ANTICOAGULANT) 40 MG/0.4ML syringe FEROSUL 325 (65 Fe) MG TAKE 1 TABLET BY 0 021 04/18/2022 tablet MOUTH TWICE DAILY WITH MEALS ferrous sulfate (FEROSUL) Take 325 mg by 0 202006/13/2022 325 (65 Fe) MG tablet mouth daily ibuprofen (ADVIL/MOTRIN) Take 3 tablets (600 30 [...] encounter ED Notes Johan Cintron RN - 03/30/2021 9:12 PM CDT Pt informed ERT that she no longer wished to be seen. Pt did not wait to discuss risks of LWBS with RN prior to departure. Johan Cintron RN - 03/30/2021 7:52 PM CDT Pt states lightheadedness with anxiety and tremors. Pt states hx of hyperthyroidism and Grave's disease, is currently being scheduled to be treated for Grave's. ABCs intact GCS 15 documented in this encounter Plan of Treatment Not on filedocumented as of this encounter Procedures Procedure Name Priority Date/Time Associated Diagnosis Comme nts EKG 12-LEAD, STAT 03/30/2021 8:21 PM Results f or this TRACING ONLY CDT procedure are i n the results section. documented in this encounter Results EKG 12 lead (03/30/2021 8:21 PM CDT) Component Value Ref Range Test Analysis Performed Pathologis t Method Time At Signature Systolic Blood mmHg RADIOLOGY Pressure RESULTS Diastolic Blood mmHg RADIOLOGY Pressure RESULTS Ventricular Rate 78 BPM RADIOLOGY RESULTS Atrial Rate 78 BPM RADIOLOGY RESULTS AK Interval 172 ms RADIOLOGY RESULTS QRS Duration 86 ms RADIOLOGY RESULTS QT 392 ms RADIOLOGY RESULTS QTc 446 ms RADIOLOGY RESULTS P Pawling 42 degrees RADIOLOGY RESULTS R AXIS 55 degrees RADIOLOGY RESULTS T Paw[place] 60 degrees RADIOLOGY RESULTS Interpretation Sinus rhythm RADIOLOGY ECG Normal ECG RESULTS When compared with ECG of 30-JAN-2021 21:42, No significant change was found Confirmed by - EMERGENCY CAMMY Henao PHYSICIAN ([id number]), newspaper editor managing LUPE ALLEN ([id number]) on 04/01/2021 7:10:39 AM Specimen Anatomical Collection Method Collection Time Receive d Time (Source) Location / / Volume Laterality 03/30/2021 8:21 PM 7:10 CDT AM CDT John Stapleton MD ECG ORDERABLES Performing Organization Address City/State/ZIP Code Phon e Number RADIOLOGY RESULTS documented in this encounter Visit Diagnoses Not on filedocumented in this encounter Additional Health Concerns Assessment Noted Time PHQ-9 Depression Total Score: 2 01/26/2019 11:18 AM CD T documented as of this encounter Care Teams Template Fitter Relationship Specialty Start Date End Date Justin Loya MD PCP - General Family Practice 02/19/11 [facility] [address] [place] [phone] Silas Santiago MD MD Pain Clinic 11/29/13 [facility] [address] [facility] [place] [id number] documented as of this encounter
--- OUTSIDE RECORDS SUMMARY | 2022-06-23 17:41 | XMS_ITS | Encounter Summary ---
:1990 Author Organization [place] Address [address] [facility] [place] [address] Care Team Providers Name Role Phone Justin Loya MD Primary Care Provider Silas Santiago MD Unavailable Silas Dean MD Unavailable Silas Jorge MD Unavailable Reason for Visit Reason Comments Palpitations Encounter Details Date Type Department Care Team Description 01/30/2021 - Emergency [facility] Tod Pedro MD Palpitations (Primary 01/31/2021 [facility] Emergency [facility] Dept [facility] [address] [facility] [address] [address] [facility] [address] [address] [place], [place] [address] [phone] (Wo rk) Social History Tobacco Use Types [...] Sign Reading Time Taken Comments Blood Pressure 127/77 01/30/2021 9:30 PM CDT Pulse 84 01/30/2021 9:30 PM CDT Temperature 36.8 ??C (98.3 ??F) 01/30/2021 9:30 PM CDT Respiratory Rate 16 01/30/2021 9:30 PM CDT Oxygen Saturation 97% 01/30/2021 9:30 PM CDT Inhaled Oxygen Concentration - - Weight 62.6 kg (138 lb) 01/30/2021 9:30 PM CDT Height - - Body Mass Index 21.61 01/05/2021 10:07 PM CDT documented in this encounter Discharge Instructions Discharge InstructionsWhTod diaz MD - 01/30/2021 11:35 PM CDT Discharge Instructions Palpitations Palpitations are an unusual awareness of your heartbeat. People often describe this as the heart skipping, fluttering, racing, irregular, or pounding. At this time, your provider has found no signs that your palpitations are due to a serious or life-threatening condition. However, sometimes there is aserious problem that does not show up right away. Palpitations can be caused by caffeine, cigarettes, diet pills, energy drinks or supplements, other stimulants, and medications and street drugs. They can also be caused by anxiety, hormone conditions such as high thyroid, and other medical conditions. Sometimes they are a sign of abnormal rhythm in the heart. At this time, your provider did not find any dangerous cause of your symptoms. Generally, every Emergency Department visit should have a follow-up clinic visit with either a primary or a specialty clinic/provider. Please follow-up as instructed by your emergency provider today. Return to the Emergency Department if: You get chest pain or tightness. You are short of breath. You get very weak or tired. You pass out or faint. Your heart rate is over 120 beats per minute for more than 10 minutes while you are resting. You have anything else that worries you. What can I do to help myself? Fill any prescriptions the provider gave you and take them right away. Follow your provider???s instructions about the prescription medicines you are on. Sometimes the provider may tell you to stop taking a medicine or change the dose. If you smoke, this may be a good time to quit! The less you can smoke, the better. Do not use energy drinks, diet pills, or stimulants. Limit your use of caffeine. If you were given a prescription for [...] if there is anything that worries you. documented in this encounter Medications at Time [...] documented as of this encounter ED Notes Allyn Her RN - 01/31/2021 12:22 AM CDT Patient angry for long wait not wanting an IV agreed to labs but dose not want to wait since she been here For 4 hours Jodee Garnica RN - 01/30/2021 9:34 PM CDT Pt here with c/o low heart rate and palpitations for past 2 hours. Pt states she has a pulse ox at home and measured as low as 55 and as high as 90 while sitting. Denies SOB, CP, calf pain. Pt in walking boot d/t R foot stress fracture, but no recent surgeries. ABC intact. A&Ox4. Tod Pedro MD - 01/30/2021 9:19 PM CDT History Chief Complaint: Palpitations HPI Destiney Cassidy is a 30 year old female with history of DVT and PE who presents with palpitations. She reports that after dinner she started to feel a low heart rate and palpitations. She reports thatshe used her pulse oximeter and saw a recorded heart rate in the 30s. She notes some chest pain and shortness of breath. She reports some lightheadedness and dizziness. She denies leg swelling. She denies nausea and vomiting. She denies syncope but notes presyncope. She denies a cough or sore throat. She denies abdominal pain. She reports that she is wearing a boot on her left foot for a stress fracture. She notes a recent TSH of 0.8. She notes that he last period was January 10. She denies chance of . She reports that she had a section 5 months ago. She reports that she had been on Xarelto in the past but not currently. She reports having Lovenox shots after the section 5 months ago. She denies a history of high or low blood pressure. She denies diabetes. She reports hypothyroidism. She denies family or personal cardiac history. She reports that her father has had multiple PE's which makes her nervous. Review of Systems HENT: Negative for sore throat. Respiratory: Positive for shortness of breath. Negative for cough. Cardiovascular: Positive for chest pain and palpitations. Negative for leg swelling. Gastrointestinal: Negative for abdominal pain, nausea and vomiting. Neurological: Positive for dizziness and light-headedness. Negative for syncope. All other systems reviewed and are negative. Allergies: Cefprozil Penicillins Metoclopramide Cephalosporins Ciprofloxacin Pollen Extract Medications: SAM 325 Tegretol XR Tapazole Oxycodone Zithromax Valium Diflucan Vistaril Reglan Flagyl Flexeril Lexapro Zoloft Past Medical History: Anxiety Graves disease Insomnia DVT Hyperthyroidism Hypermobility syndrome POTS Paresthesia Vaginismus Thrombosis of left jugular vein Trigeminal neuralgia Sensory disorder IBS-D Migraines Past Surgical History: Decompression lumbar minimally invasive one level Myringotomy Tonsillectomy Hilliard teeth extraction Family History: Arthritis DVT Anesthesia problem Clotting disorder Hyperlipidemia Hypertension Kidney disease Sleep apnea Colon polyps Social History: Presents alone. Has a son. Physical Exam Patient Vitals for the past 24 hrs: BP Temp Temp src Pulse Resp SpO2 Weight 01/30/21 2130 127/77 98.3 ??F (36.8 ??C) Temporal 84 16 97 % 62.6 kg (138 lb) Physical Exam General: Alert, appears well-developed and well-nourished. Cooperative. In no acute distress HEENT: Head: Atraumatic Ears: External ears are normal Mouth/Throat: Oropharynx is without erythema or exudate and mucous membranes are moist. Eyes: Conjunctivae normal and EOM are normal. No scleral icterus. CV: Normal rate, regular rhythm, normal heart sounds and radial pulses are 2+ and symmetric. No murmur. Resp: Breath sounds are clear bilaterally Non-labored, no retractions or accessory muscle use GI: Abdomen is soft, no distension, no tenderness. No rebound or guarding. No CVA tenderness bilaterally MS: Normal range of motion. No edema. Normal strength in all 4 extremities. Back atraumatic. No midline cervical, thoracic, or lumbar tenderness Skin: Warm and dry. No rash or lesions noted. Neuro: Alert. Normal strength. GCS: 15 Psych: Normal mood and affect. Emergency Department Course ECG ECG taken at 2142, ECG read at 2145 NSR. No significant change as compared to prior, dated 01/05/21. Rate 69 bpm. MI interval 178 ms. QRS duration 86 ms. QT/QTc 388/415 ms. P-R-T axes 44 59 58. Laboratory: CBC: WBC 7.2, HGB 12.4, PLT 272 BMP: Glucose 101 (H), Anion Gap: 2 (LL), o/w WNL (Creatinine: 0.72) Troponin (Collected 2350): <0.015 TSH with Free T4 Reflex: 2.50 Emergency Department Course: Reviewed: I reviewed nursing notes, vitals, past medical history and care everywhere Assessments: 2313 I obtained history and examined the patient as noted above. 0024 I rechecked the patient. 0059 I spoke with the patient on the phone and reported her results. Disposition: The patient was discharged to home. PERC Rule for risk stratifying PE to low risk (calculator) Background Risk stratifies patients to low risk of PE if all 8 criteria are present including age <50, heartrate <100, O2 Sat >94%, no unilateral leg edema, no hemoptysis, no recent surgery or trauma, no prior VTE, and no hormone use. Data 30 year old has Sensory disorder on their problem list. @cmedp@ has a past surgical history that includes Tonsillectomy; Myringotomy, insert tube bilateral, combined; Decompression lumbar minimally invasive one level (02/19/2011); and WISDOM TEETH EXTRACTION. Pulse: 84 SpO2: 97 % Criteria Of 8 possible items (all criteria must be present): Age <50 years Heart rate <100 bpm Oxygen Saturation >94% No unilateral leg swelling No hemoptysis No surgery or trauma within 4 weeks No prior DVT or PE No hormone use (oral, transdermal and intravaginal estrogens) Interpretation All eight criteria are met AND low clinical PE suspicion: No further evaluation for PE required Impression & Plan [facility] Diagnoses: None Medical Decision Making: Destiney Cassidy is a 30 year old female who presents for evaluation of palpitations. Initial ECG shows normal sinus rhythm. A broad differential diagnosis was considered including SVT, Atrial fibrillation, ventricular arrhythmia, thyroid disease, acute electrolyte abnormality, anemia, heart disease, PE, etc. The workup and exam here in ED would indicate that supportive outpatient management is indicated. I doubt PE as patient PERC negative. Doubt acute coronary syndrome given symptoms and exam. Will have them follow up with PCP in coming weeks for re-check. Covid-19 Destiney Cassidy was evaluated during a global COVID-19 pandemic, which necessitated consideration that the patient might be at risk for infection with the SARS-CoV-2 virus that causes COVID-19. Applicable protocols for evaluation were followed during the patient's care. COVID-19 was considered as part of the patient's evaluation. Diagnosis: ICD-10-CM 1. Palpitations R00.2 Scribe Disclosure: IRhonda, am serving as a scribe at 10:40 PM on 01/30/2021 to document services personally performed by Tod Pedro MD based on my observations and the provider's statements to me. Tod Pedro MD 01/31/21 0154 documented in this encounter Plan of Treatment Not on filedocumented as of this encounter Procedures Procedure Name Priority Date/Time Associated Comments Diagnosis EXTRA TUBE STAT 01/31/2021 12:18 Results for this AM CDT procedure are i n the results section. EXTRA RED TOP TUBE STAT 01/31/2021 12:18 Resul ts for this AM CDT procedure are i n the results section. EXTRA BLUE TOP TUBE STAT 01/31/2021 12:18 Resu lts for this AM CDT procedure are i n the results section. CBC WITH PLATELETS STAT 01/30/2021 11:50 Resul ts for this AND DIFFERENTIAL PM CDT procedure a re in the results section. CBC WITH PLATELETS & STAT 01/30/2021 11:50 Res ults for this DIFFERENTIAL PM CDT procedure are i n the results section. TSH WITH FREE T4 STAT 01/30/2021 11:50 Results for this REFLEX PM CDT procedure are i n the results section. TROPONIN I STAT 01/30/2021 11:50 Results for this PM CDT procedure are i n the results section. BASIC METABOLIC PANEL STAT 01/30/2021 11:50 Re sults for this PM CDT procedure are i n the results section. EKG 12-LEAD, TRACING STAT 01/30/2021 9:42 PM R esults for this ONLY CDT procedure are i n the results section. documented in this encounter Results Extra Red Top Tube (01/31/2021 12:18 AM CDT) athologist Signature Hold Specimen JI 01/31/2021 [facility] 1:31 AM CDT Specimen Anatomical Collection Method Collection Time Receive d Time (Source) Location / / Volume Laterality Blood STRUCTURE OF LEFT VAD(CVC, PICC) / 01/31/2021 12:18 UPPER LIMB / Unknown AM CDT 12:29 AM CDT Unknown Tod Pedro MD LAB - BLOOD ORDERABLES Performing Organization Address City/State/ZIP Code [place] [phone] Care Lab [address] Lab (1st floor, no room number) Extra Blue Top Tube (01/31/2021 12:18 AM CDT) athologist Signature Hold Specimen [facility] 01/31/2021 [facility] 1:31 AM CDT Specimen Anatomical Collection Method Collection Time Receive d Time (Source) Location / / Volume Laterality Blood STRUCTURE OF LEFT VAD(CVC, PICC) / 01/31/2021 12:18 UPPER LIMB / Unknown AM CDT 12:28 AM CDT Unknown Tod Pedro MD LAB - BLOOD ORDERABLES Performing Organization Address City/State/ZIP Code [place] [address] Care [facility] [address] Lab (1st floor, no room number) (ABNORMAL) CBC with platelets and differential (01/30/2021 11:50 PM CDT) [facility] gist Method Time [facility] [place] WBC Count 7.2 4.0 - 01/31/2021 [facility] 11.0 12:21 AM CDT 10e3/uL RBC Count 4.72 3.80 - 01/31/2021 [facility] 5.20 12:21 AM CDT 10e6/uL Hemoglobin 12.4 11.7 - 01/31/2021 [facility] 15.7 g/dL 12:21 AM CDT Hematocrit 40.0 35.0 - 01/31/2021 [facility] 47.0 % 12:21 AM CDT MCV 85 78 - 100 01/31/2021 [facility] fL 12:21 AM CDT MCH 26.3 (L) 26.5 - 01/31/2021 [facility] 33.0 pg 12:21 AM CDT MCHC 31.0 (L) 31.5 - 01/31/2021 [facility] 36.5 g/dL 12:21 AM CDT RDW 14.7 10.0 - 01/31/2021 [facility] 15.0 % 12:21 AM CDT Platelet Count 272 150 - 450 01/31/2021 [facility] 10e3/uL 12:21 AM CDT % Neutrophils 47 % 01/31/2021 [facility] 12:21 AM CDT % Lymphocytes 34 % 01/31/2021 [facility] 12:21 AM CDT % Monocytes 13 % 01/31/2021 [facility] 12:21 AM CDT % Eosinophils 5 % 01/31/2021 [facility] 12:21 AM CDT % Basophils 1 % 01/31/2021 [facility] 12:21 AM CDT % Immature 0 % 01/31/2021 [facility] Granulocytes 12:21 AM CDT NRBCs per 100 0 <1 /100 01/31/2021 [facility] WBC 12:21 AM CDT Absolute 3.4 1.6 - 8.3 01/31/2021 [facility] Neutrophils 10e3/uL 12:21 AM CDT Absolute 2.5 0.8 - 5.3 01/31/2021 [facility] Lymphocytes 10e3/uL 12:21 AM CDT Absolute 0.9 0.0 - 1.3 01/31/2021 [facility] Monocytes 10e3/uL 12:21 AM CDT Absolute 0.3 0.0 - 0.7 01/31/2021 [facility] Eosinophils 10e3/uL 12:21 AM CDT Absolute 0.1 0.0 - 0.2 01/31/2021 [facility] Basophils 10e3/uL 12:21 AM CDT Absolute 0.0 <=0.0 01/31/2021 [facility] Immature 10e3/uL 12:21 AM CDT Granulocytes Absolute NRBCs 0.0 10e3/uL 01/31/2021 [facility] 12:21 AM CDT Specimen Anatomical Collection Method Collection Time Receive d Time (Source) Location / / Volume Laterality Blood STRUCTURE OF LEFT VAD(CVC, PICC) / 01/30/2021 11:50 UPPER LIMB / Unknown PM CDT 12:17 AM CDT Unknown Tod Pedro MD LAB - BLOOD ORDERABLES Performing Organization Address City/State/ZIP Code [place] [address] Care Lab [address] Lab (1st floor, no room number) TSH with free T4 reflex (01/30/2021 11:50 PM CDT) athologist Signature TSH 2.50 0.40 - 4.00 01/31/2021 [facility] mU/L 12:56 AM CDT Specimen Anatomical Collection Method Collection Time Receive d Time (Source) Location / / Volume Laterality Blood STRUCTURE OF LEFT VAD(CVC, PICC) / 01/30/2021 11:50 UPPER LIMB / Unknown PM CDT 12:17 AM CDT Unknown Tod Pedro MD LAB - BLOOD ORDERABLES Performing Organization Address City/[facility]/[place] [address] Care Lab [address] Lab (1st floor, no room number) Troponin I (01/30/2021 11:50 PM CDT) athologist Signature Troponin I <0.015 0.000 - 01/31/2021 [facility] 0.045 ug/L 12:52 AM CDT Comment: The 99th percentile for upper r eference range is 0.045ug/L. Troponin values in the range of 0.045 - 0.120 ug/L may b e associated with risks of adverse clinical events. Specimen Anatomical Collection Method Collection Time Receive d Time (Source) Location / / Volume Laterality Blood STRUCTURE OF LEFT VAD(CVC, PICC) / 01/30/2021 11:50 UPPER LIMB / Unknown PM CDT 12:17 AM CDT Unknown Tod Pedro MD LAB - BLOOD ORDERABLES Performing Organization Address City/[facility]/ZIP Code [place] [address] Care [facility] [address] Lab (1st floor, no room number) (ABNORMAL) Basic metabolic panel (01/30/2021 11:50 PM CDT) Analysis Performed At Patho logist Time Signature Sodium 138 133 - 144 01/31/2021 LABORATORY mmol/L 12:47 AM CDT Potassium 4.0 3.4 - 5.3 01/31/2021 LAB[facility] mmol/L 12:47 AM CDT Chloride 107 94 - 109 01/31/2021 LAB[facility] mmol/L 12:47 AM CDT Carbon Dioxide 29 20 - 32 01/31/2021 LABOR[facility]ORY (CO2) mmol/L 12:47 AM CDT Anion Gap 2 (L) 3 - 14 01/31/2021 LAB[facility] mmol/L 12:47 AM CDT Urea Nitrogen 13 7 - 30 01/31/2021 LABOR[facility]ORY mg/dL 12:47 AM CDT Creatinine 0.72 0.52 - 01/31/2021 LAB[facility]ORY 1.04 mg/dL 12:47 AM CDT Calcium 9.0 8.5 - 10.1 01/31/2021 LAB[facility]ORY mg/dL 12:47 AM CDT Glucose 101 (H) 70 - 99 01/31/2021 LABORATORY mg/dL 12:47 AM CDT GFR Estimate >90 >60 01/31/2021 LAB[facility]ORY mL/min/1.7 12:47 AM CDT 3m2 Comment: As of January 27, 2021, eGFR is ca lculated by the CKD-EPI creatinine equation, without race adjustment. eGFR can be inf luenced by muscle mass, exercise, and diet. The reported eGFR is an estimation only and is only applicable if the renal function is stable. Specimen Anatomical Collection Method Collection Time Receive d Time (Source) Location / / Volume Laterality Blood STRUCTURE OF LEFT VAD(CVC, PICC) / 01/30/2021 11:50 UPPER LIMB / Unknown PM CDT 12:17 AM CDT Unknown Tod Pedro MD LAB - BLOOD ORDERABLES Performing Organization Address City/State/ZIP Code [place] [address] Care Lab [address] Lab (1st floor, no room number) EKG 12-lead, tracing only (01/30/2021 9:42 PM CDT) [facility] gist Method Time Signature Systolic Blood mmHg RADIOLOGY Pressure RESULTS Diastolic Blood mmHg RADIOLOGY Pressure RESULTS Ventricular Rate 69 BPM RADIOLOGY RESULTS Atrial Rate 69 BPM RADIOLOGY RESULTS MI Interval 178 ms RADIOLOGY RESULTS QRS Duration 86 ms RADIOLOGY RESULTS QT 388 ms RADIOLOGY RESULTS QTc 415 ms RADIOLOGY RESULTS P Cooter 44 degrees RADIOLOGY RESULTS R AXIS 59 degrees RADIOLOGY RESULTS T Cooter 58 degrees RADIOLOGY RESULTS Interpretation ECG Click View RADIOLOGY Image link RESULTS to view waveform and result Specimen Anatomical Collection Method Collection Time Receive d Time (Source) Location / / Volume Laterality 01/30/2021 9:42 PM 6:40 CDT AM CDT Tod Pedro MD ECG ORDERABLES Performing Organization Address City/State/ZIP Code Phon e Number RADIOLOGY RESULTS documented in this encounter Visit Diagnoses Diagnosis Palpitations - Primary documented in this encounter Additional Health Concerns Assessment Noted Time PHQ-9 Depression Total Score: 2 01/26/2019 11:18 AM CD T documented as of this encounter Care Teams Studio Director Relationship Specialty Start Date End Date Justin Loya MD PCP - General Family Practice 02/19/11 [facility] [address] [place] [phone] Silas Santiago MD MD Pain Clinic 11/29/13 [facility] [address] [place] [address] Silas Dean, Assigned Neuroscience 05/11/20 03/02/21 MD Provider [address] [place] [address] [id number] [address] Silas Jorge MD Assigned Surgical Provider 05/11/[address] [place] [address] [id number] documented as of this encounter
--- OUTSIDE RECORDS SUMMARY | 2022-06-23 17:41 | XMS_ITS | Encounter Summary ---
:1990 Author Organization [place] Address [facility] [place] [address] Care Team Providers Name Role Phone Justin Loya MD Primary Care Provider Silas Santiago MD Unavailable Silas Dean MD Unavailable Silas Jorge MD Unavailable Encounter Details Date Type Department Care Team Description 09/30/2020 Travel Social History Tobacco Use Types Packs/Day [...] documented as of this encounter Care Teams Stitcher Feeder Relationship Specialty Start Date End Date Justin Loya MD PCP - General Family Practice 02/19/11 [facility] [address] [place] [phone] Silas Santiago MD MD Pain Clinic 11/29/13 [facility] [address] [place], [place] [address] Silas Dean, Assigned Neuroscience 05/11/20 03/02/21 MD Provider [address] [place] [address] [id number] [place], [place] [address] Silas Jorge MD Assigned Surgical Provider 05/11/[address] [place] [address] [phone] documented as of this encounter
--- OUTSIDE RECORDS SUMMARY | 2022-06-23 17:41 | XMS_ITS | Encounter Summary ---
:1990 Author Organization [place] Address [address] [place] [address] Care Team Providers Name Role Phone Justin Loya MD Primary Care Provider Silas Santiago MD Unavailable Reason for Visit Reason Comments Chest Pain Palpitations Encounter Details Date Type Department Care Team Description [facility] PA-C [address] [place] [phone] [phone] [place], [place] [address] (Wo rk) Social History [...] with No / Unsure 07/30/2021 3:55 PM SALES DEPARTMENT CLERK someone who was confirmed or suspected to have Coronavirus / COVID-19? documented as of this encounter Last Filed Vital Signs Vital Sign Reading Time Taken Comments Blood Pressure 127/74 07/30/2021 3:57 PM SALES DEPARTMENT CLERK Pulse 93 07/30/2021 3:57 PM SALES DEPARTMENT CLERK Temperature 36.8 ??C (98.2 ??F) 07/30/2021 3:57 PM SALES DEPARTMENT CLERK Respiratory Rate 15 07/30/2021 3:57 PM SALES DEPARTMENT CLERK Oxygen Saturation 100% 07/30/2021 3:57 PM SALES DEPARTMENT CLERK Inhaled Oxygen Concentration - - Weight 63.5 kg (139 lb 15.9 oz) 07/30/2021 3:55 PM SALES DEPARTMENT CLERK Height - - Body Mass Index 21.93 01/05/2021 10:07 PM CDT documented in this encounter Medications at Time [...] documented as of this encounter ED Notes Mark Terrazas, ALDO - 07/30/2021 3:58 PM CST For last 3 days pt having chest tightness, dizziness, weak and feeling fluttering in chest. Pt has hx of blood clot in neck in 2017. Pt wore a pulse oxim iter and noted heart rate going from the 80's down to the 50's. Heart rate dropped when pt was laying down and when she would sit her heart rate would go back up. Pt and are currently trying to conceive. S DEPARTMENT CLERK documented in this encounter Plan of Treatment Not on filedocumented as of this encounter Procedures Procedure Name Priority Date/Time Associated Diagnosis Comme nts EKG 12-LEAD, STAT 07/30/2021 4:10 PM Results f or this TRACING ONLY SALES DEPARTMENT CLERK procedure are i n the results section. documented in this encounter Results EKG 12 lead (07/30/2021 4:10 PM SALES DEPARTMENT CLERK) [facility] Method Time Signature Systolic Blood mmHg RADIOLOGY Pressure RESULTS Diastolic Blood mmHg RADIOLOGY Pressure RESULTS Ventricular Rate 65 BPM RADIOLOGY RESULTS Atrial Rate 65 BPM RADIOLOGY RESULTS OR Interval 192 ms RADIOLOGY RESULTS QRS Duration 88 ms RADIOLOGY RESULTS QT 396 ms RADIOLOGY RESULTS QTc 411 ms RADIOLOGY RESULTS P [place] 41 degrees RADIOLOGY RESULTS R AXIS 52 degrees RADIOLOGY RESULTS T [place] 57 degrees RADIOLOGY RESULTS Interpretation Sinus rhythm RADIOLOGY ECG Normal ECG RESULTS No previous ECGs available Confirmed by - EMERGENCY CAMMY Juliano, PHYSICIAN ([id number]), newspaper or periodical editor LAVERN OCAMPO ([id number]) on 07/31/2021 6:41:19 AM Specimen Anatomical Collection Method Collection Time Receive d Time (Source) Location / / Volume Laterality 07/30/2021 4:10 PM 6:41 SALES DEPARTMENT CLERK AM SALES DEPARTMENT CLERK Julieta Lopez PA-C ECG ORDERABLES Performing Organization Address City/State/ZIP Code Phon e Number RADIOLOGY RESULTS documented in this encounter Visit Diagnoses Not on filedocumented in this encounter Additional Health Concerns Assessment Noted Time PHQ-9 Depression Total Score: 2 01/26/2019 11:18 AM CD T documented as of this encounter Care Teams Pump Station Operator Relationship Specialty Start Date End Date Justin Loya MD PCP - General Family Practice 02/19/11 [facility] [address] [place] [address] Silas Santiago MD MD Pain Clinic 11/29/13 [facility] [address] [facility] [place] [address] documented as of this encounter
--- OUTSIDE RECORDS SUMMARY | 2022-06-23 17:42 | XMS_ITS | Encounter Summary ---
:1990 Author Organization [place] Address [address] [facility] [place] [address] Care Team Providers Name Role Phone Justin Loya MD Primary Care Provider Silas Santiago MD Unavailable Encounter Details Date Type Department Care Team Description 02/01/2020 Emergency [facility] Emergency Dept [address] [place] [address] Social History Tobacco Use Types Packs/Day Years Used Date Smoking Tobacco: Never Smokeless Tobacco: Never Alcohol Use Standard Drinks/Week Comments No 0 (1 standard drink = 0.6 oz pure alcoho l) Sex Assigned at Date Recorded Not on file COVID-19 Exposure Response Date Recorded In the last month, have you been in contact with No / Unsure 02/01/2020 11:08 PM CDT someone who was confirmed or suspected to have Coronavirus / COVID-19? documented as of this encounter Medications at Time of Discharge Medication Sig Dispensed Refills Start Date End Date carBAMazepine (TEGRETOL Take 1 tablet (100 60 tablet 2 08/2008/01/2021 XR) 100 MG 12 hr mg) by mouth 2 tabletIndications: Facial times daily pain ibuprofen (ADVIL/MOTRIN) Take 3 tablets (600 30 tablet 0 08/01/2021 200 MG tablet mg) by mouth every 8 hours as needed for mild pain methimazole (TAPAZOLE) 5 0 08/01/2019 08/01/2021 MG tablet sucralfate (CARAFATE) 1 Take 10 mLs (1 [...] documented as of this encounter Care Teams Brake Operator Sheet Metal Relationship Specialty Start Date End Date Justin Loya MD PCP - General Family Practice 02/19/11 [facility] [address] [place] [phone] Silas Santiago MD MD Pain Clinic 11/29/13 [facility] [address] [place] [address] documented as of this encounter
--- OUTSIDE RECORDS SUMMARY | 2022-06-23 17:42 | XMS_ITS | Encounter Summary ---
:1990 Author Organization [place] Address [address] [facility] [place] [address] Care Team Providers Name Role Phone Justin Loya MD Primary Care Provider Silas Santiago MD Unavailable Encounter Details Date Type Department Care Team Description 07/19/2019 Travel Social History Tobacco Use Types Packs/Day [...] documented as of this encounter Care Teams Postage Machine Operator Relationship Specialty Start Date End Date Justin Loya MD PCP - General Family Practice 02/19/11 [facility] [address] [place] [phone] Silas Santiago MD MD Pain Clinic 11/29/13 [facility] [address] [place], [place] [address] documented as of this encounter
--- OUTSIDE RECORDS SUMMARY | 2022-06-23 17:42 | XMS_ITS | Encounter Summary ---
:1990 Author Organization [place] Address [address] [place] [address] Care Team Providers Name Role Phone Justin Loya MD Primary Care Provider Silas Santiago MD Unavailable Silas Dean MD Unavailable Silas Jorge MD Unavailable Reason for Referral (Routine) - Closed Specialty Diagnoses / Procedures Referred By Contact Refer red To Contact Diagnoses [facility] [address] [place] [address] Referral ID Status Reason Start Date Expiration Date Visits Requ ested Visits Authorized [id number] Closed 08/14/2020 08/14/2021 1 1 CUTTER Reason for Visit Reason Onset Date Comments Referral 08/14/2020 Encounter Details Date Type Department Care Team Description 08/14/2020 Telephone [facility] Bel[place] None Referral [address] [place] [phone] Social History Tobacco Use Types Packs/Day Years Used Date Smoking Tobacco: Never Smokeless Tobacco: Never Alcohol Use Standard Drinks/Week Comments No 0 (1 standard drink = 0.6 oz pure alcoho l) Sex Assigned at Date Recorded Not on file COVID-19 Exposure Response Date Recorded In the last month, have you been in contact with No / Unsure 08/11/2020 10:00 AM FILM CUTTER someone who was confirmed or suspected to have Coronavirus / COVID-19? documented as of this encounter Miscellaneous Notes Telephone Encounter - Yasmin Baird - 08/16/2020 2:31 PM CST LM for patient to call us back by 4:30 today (08/16/20) to schedule: Time held for US 08/17/2020 at 8:00am and Appt time held with Dr. Gilmore 08/17/2020 at 10:00am [place] location. If patient does not return our call by 4:30 pm today ?? CUTTER Telephone Encounter - Yvonne Galvan - 08/14/2020 1:08 PM CST 08/14/2020 LMTCB and schedule. Time held for US 08/17/2020 at 8:00am and Appt time held with Dr. Gilmore 08/17/2020 at 10:00am [place] location. Yvonne Osborn CUTTER Telephone Encounter - Yvonne Galvan - 08/14/2020 11:52 AM CST Patient is self-referred, she states she has pain and weakness in right leg and believes it is due to vascular. Patient states she has no previous imaging and would like to be seen as soon as possible with any providers. Informed patient will send message to nurse for review and call back once information/instruction isgiven. Yvonne Osborn CUTTER documented in this encounter Plan of Treatment Scheduled Referrals Name Type Priority Associated Diagnoses Order S chedule Follow-Up with Vascular Referral Routine Leg pain Expe cted: 08/14/2020 Medicine (Approximate), Expires: 10/17/2020 documented as of this encounter Visit Diagnoses Diagnosis Pain of right lower leg - Primary Pain in limb Leg pain Pain in limb documented in this encounter Additional Health Concerns Assessment Noted Time PHQ-9 Depression Total Score: 2 01/26/2019 11:18 AM CD T documented as of this encounter Care Teams Business Administrator Relationship Specialty Start Date End Date Justin Loya MD PCP - General Family Practice 02/19/11 [facility] [address] [place] [address] Silas Santiago MD MD Pain Clinic 11/29/13 [facility] [address] [place], [place] [address] Silas Dean, Assigned Neuroscience 05/11/20 03/02/21 MD Provider [address] [place] [address] [id number] [place], [place] [address] Silas Jorge MD Assigned Surgical Provider 05/11/[address] [place] [id number] documented as of this encounter
--- OUTSIDE RECORDS SUMMARY | 2022-06-23 17:42 | XMS_ITS | Encounter Summary ---
:1990 Author Organization [place] Address [facility] [place] [address] Care Team Providers Name Role Phone Justin Loya MD Primary Care Provider Silas Santiago MD Unavailable Reason for Visit Reason Onset Date Comments referral 08/01/2019 Encounter Details Date Type Department Care Team Description 08/01/2019 Telephone [facility] Ophthalmolo Silas Barber MD referral [address] [place] [address] [address] [place] [address] [place] [phone] Social History Tobacco Use Types Packs/Day Years [...] documented as of this encounter Care Teams Global Chief Creative Officer Relationship Specialty Start Date End Date Justin Loya MD PCP - General Family Practice 02/19/11 [facility] [address] [place] [address] Silas Santiago MD MD Pain Clinic 11/29/13 [facility] [address] [place] [address] documented as of this encounter
--- OUTSIDE RECORDS SUMMARY | 2022-06-23 17:42 | XMS_ITS | Encounter Summary ---
:1990 Author Organization [place] Address [address] [facility] [place] [address] Care Team Providers Name Role Phone Justin Loya MD Primary Care Provider Silas Santiago MD Unavailable Encounter Details Date Type Department Care Team Description 2019 Travel Social History Tobacco Use Types Packs/Day Years Used Date Smoking Tobacco: Never Smokeless Tobacco: Never Alcohol Use Standard Drinks/Week Comments No 0 (1 standard drink = 0.6 oz pure alcoho l) Sex Assigned at Date Recorded Not on file COVID-19 Exposure Response Date Recorded In the last month, have you been in contact with No / Unsure 2019 1:26 AM CDT someone who was confirmed or suspected to have Coronavirus / COVID-19? documented as of this encounter Plan of Treatment Not on filedocumented as of this encounter Visit Diagnoses Not on filedocumented in this encounter Additional Health Concerns Assessment Noted Time PHQ-9 Depression Total Score: 2 01/26/2019 11:18 AM CD T documented as of this encounter Care Teams Principal Data Architect Relationship Specialty Start Date End Date Justin Loya MD PCP - General Family Practice 02/19/11 [facility] [address] [place] [phone] Silas Santiago MD MD Pain Clinic 11/29/13 [facility] [address] [place] [address] documented as of this encounter
--- OUTSIDE RECORDS SUMMARY | 2022-06-23 17:42 | XMS_ITS | Encounter Summary ---
:1990 Author Organization [place] Address [address] [facility] [place] [address] Care Team Providers Name Role Phone Justin Loya MD Primary Care Provider Silas Santiago MD Unavailable Encounter Details Date Type Department Care Team Description 07/27/2019 Travel Social History Tobacco Use Types Packs/Day [...] documented as of this encounter Care Teams Rail Track Maintainer Relationship Specialty Start Date End Date Justin Loya MD PCP - General Family Practice 02/19/11 [facility] [address] [place] [phone] Silas Santiago MD MD Pain Clinic 11/29/13 [facility] [address] [place], [place] [address] documented as of this encounter
--- OUTSIDE RECORDS SUMMARY | 2022-06-23 17:42 | XMS_ITS | Encounter Summary ---
:1990 Author Organization [place] Address [address] [facility] [place] [address] Care Team Providers Name Role Phone Justin Loya MD Primary Care Provider Silas Santiago MD Unavailable Encounter Details Date Type Department Care Team Description 02/01/2020 Travel Social History Tobacco Use Types Packs/Day [...] documented as of this encounter Care Teams Office Rn Relationship Specialty Start Date End Date Justin Loya MD PCP - General Family Practice 02/19/11 [facility] [address] [place] [phone] Silas Santiago MD MD Pain Clinic 11/29/13 [facility] [address] [place] [address] documented as of this encounter
--- OUTSIDE RECORDS SUMMARY | 2022-06-23 17:42 | XMS_ITS | Encounter Summary ---
:1990 Author Organization [place] Address [address] [facility] [address] Care Team Providers Name Role Phone Justin Loya MD Primary Care Provider Silas Santiago MD Unavailable Reason for Visit Reason Comments Arm Pain Encounter Details Date Type Department Care Team Description 2019 Emergency [facility] Caden Jean-Baptiste MD Thrombophlebitis [facility] Emergency Dep t [facility] [address] [place], [place] [address] [place] [phone] [place] [address] [place], [place] [phone] (Wo rk) Social History Tobacco Use Types [...] Sign Reading Time Taken Comments Blood Pressure 122/89 2019 1:27 AM CDT Pulse 65 2019 1:27 AM CDT Temperature 36.6 ??C (97.8 ??F) 2019 1:27 AM CDT Respiratory Rate 18 2019 1:27 AM CDT Oxygen Saturation 100% 2019 1:27 AM CDT Inhaled Oxygen Concentration - - Weight 54.4 kg (120 lb) 2019 1:27 AM CDT Height - - Body Mass Index 18.79 03/23/2019 5:22 PM CDT documented in this encounter Discharge Instructions AttachmentsThe following attachments cannot be sent through Care Everywhere. Thrombophlebitis, Superficial (Gibraltarian)documented in this encounter Medications at Time of [...] documented as of this encounter ED Notes Fanny Pollack RN - 2019 1:28 AM CDT Pt comes in for left arm pain after a blood draw a few days ago. Pt states pain has worsened. Pt hasa history of blood clots. Caden Jean-Baptiste MD - 2019 1:26 AM CDT History Chief Complaint: Arm Pain RICHAR Cassidy is a 28 year old female with a history of thrombosis and anxiety who presents to the emergency department for evaluation of left arm pain. The patient reports that over the last 3 weeks she has had multiple blood draws from her left arm and is having pain and swelling. Her last blood draw was 3 days ago and noted that it was difficult stick the vein. Immediately after the draw the pain improved, but tonight worsened, prompting her visit. She also mentions some swelling and numbness in her left arm. 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 She denies any fevers. Allergies: Cefprozil Penicillins Cephalosporins Ciprofloxacin Penicillin G Pollen Extract Medications: Tegretol Tapazole Carafate Past Medical History: Anxiety Graves disease Insomnia POTS Thrombosis of left jugular vein Trigeminal neuralgia Past Surgical History: Lumbar decompression Myringotomy Tonsillectomy [place] teeth extraction Family History: No past pertinent family history. Social History: The patient presents alone. Smoking Status: Never Smokeless Tobacco: Never Alcohol Use: No Drug Use: No Marital Status: Review of Systems Constitutional: Negative for fever. Musculoskeletal: Positive for arthralgias and joint swelling. All other systems reviewed and are negative. Physical Exam Vitals: Patient Vitals for the past 24 hrs: BP Temp Temp src Pulse Resp SpO2 Weight 12/25/19 0127 122/89 97.8 ??F (36.6 ??C) Oral 65 18 100 % 54.4 kg (120 lb) Physical Exam Constitutional: Oriented to person, place, and time. Well appearing. HENT: Head: Normocephalic. Mouth/Throat: Oropharynx is clear and moist. Eyes: EOM are normal. Pupils are equal, round, and reactive to light. Neck: Neck supple. Musculoskeletal: Normal range of motion. 2+ distal pulses. Tenderness to her left anterior AC. No significant swelling. No warmth. Neurological: Alert and oriented to person, place, and time. Moves all 4 extremities spontaneously Strength and sensation are intact to her left upper extremity. Skin: No rash noted. No pallor. Mild ecchymosis to her left AC. No erythema or warmth. Emergency Department Course Imaging: Radiographic findings were communicated with the patient who voiced understanding of the findings. US Upper Extremity Venous Duplex Left 1. No deep venous thrombosis in the left upper extremity. No evidence for hematoma. Reading per radiology. Emergency Department Course: Past medical records, nursing notes, and vitals reviewed. 0140 I performed an exam of the patient as documented above. The patient was sent for a left upper extremity US while in the emergency department, results above. 0248 I rechecked the patient and discussed the results of her workup thus far. Findings and plan explained to the Patient. Patient discharged home with instructions regarding supportive care, medications, and reasons to return. The importance of close follow-up was reviewed. I personally reviewed the imaging results with the Patient and answered all related questions prior to discharge. Impression & Plan Medical Decision Making: Destiney Cassidy is a 28 year old female who presents for evaluation of a tender lump on the AC of the left arm. This is consistent by ultrasound with a superficial thrombophlebitis. I do not think at this point it represents an infected thrombophlebitis. Discussed warm compresses and aspirin therapy. Ultrasound is reassuring as there is no DVT. No signs of pulmonary embolism by history or physical exam. See primary this week for further reassessment. Diagnosis: ICD-10-CM 1. Thrombophlebitis arm I80.8 Disposition: discharged to home Discharge Medications: None Ramin Whipple, am serving as a scribe on 2019 at 1:41 AM to personally document services performed by Caden Jean-Baptiste MD based on my observations and the provider's statements to me. Ramin Bernal 2019 [facility] EMERGENCY DEPARTMENT Caden Jean-Baptiste MD 12/25/19 0449 documented in this encounter Plan of Treatment Not on filedocumented as of this encounter Procedures Procedure Name Priority Date/Time Associated Diagnosis Comme nts US UPPER EXTREMITY STAT 2019 2:30 AM Res ults for this VENOUS DUPLEX LEFT CDT procedure are in the results section. documented in this encounter Results US Upper Extremity Venous Duplex Left (2019 2:30 AM CDT) Anatomical Region Laterality Modality Extremity Ultrasound Specimen (Source) Anatomical Collection Method Collection Time Re ceived Time Location / / Volume Laterality 2019 2:05 AM CDT Impressions 2019 2:42 AM CDT IMPRESSION: 1. ??No deep venous thrombosis in the le ft upper extremity. No evidence for hematoma. Narrative 2019 2:42 AM CDT EXAM: US UPPER EXTREMITY VENOUS DUPLEX LEFT LOCATION: [facility] DATE/TIME: 2019 2:05 AM INDICATION: Pain and swelling. COMPARISON: None. TECHNIQUE: Venous Duplex ultrasound of [...] thrombosis. No supe rficial thrombophlebitis. Procedure Note Toni Baeza MD - 2019F ormatting of this note might be different from the original. EXAM: US UPPER EXTREMITY VENOUS DUPLEX L EFT LOCATION: [facility] DATE/TIME: 2019 2:05 AM INDICATION: Pain and swelling. COMPARISON: None. TECHNIQUE: Venous Duplex ultrasound of [...] venous thrombosis in the left upper extremity. No evidence for hematoma. Caden Jean-Baptiste MD IM US ORDERABLES documented in this encounter Visit Diagnoses Diagnosis Thrombophlebitis arm Phlebitis and thrombophlebitis of upper extremities, unspecified documented in this encounter Additional Health Concerns Assessment Noted Time PHQ-9 Depression Total Score: 2 01/26/2019 11:18 AM CD T documented as of this encounter Care Teams Cell Tuber Machine Relationship Specialty Start Date End Date Justin Loya MD PCP - General Family Practice 02/19/11 [facility] [address] [place] [address] Silas Santiago MD MD Pain Clinic 11/29/13 [facility] [address] [place] [address] documented as of this encounter
--- OUTSIDE RECORDS SUMMARY | 2022-06-23 17:42 | XMS_ITS | Encounter Summary ---
:1990 Author Organization [place] Address [facility] [place] [address] Care Team Providers Name Role Phone Justin Loya MD Primary Care Provider Silas Santiago MD Unavailable Reason for Visit Reason Onset Date Comments Appointment 11/04/2019 SKILLED NURSING 11/06 Encounter Details Date Type Department Care Team Description 11/04/2019 Telephone M [facility] JermaineSilas intment (SKILLED NURSING 11/06) Throat MD Pieter [address] [place] [address] Floor [id number] [place] [id number] Social History Tobacco Use Types Packs/Day Years Used Date Smoking Tobacco: Never Smokeless Tobacco: Never Alcohol Use Standard Drinks/Week Comments No 0 (1 standard drink = 0.6 oz pure alcoho l) Sex Assigned at Date Recorded Not on file documented as of this encounter Miscellaneous Notes Telephone Encounter - Carri Faulknerine - 11/04/2019 9:12 AM CDT Patient's VM was full, left a VM with spouse regarding 11/06 Facial Pain Clinic appointment. Explained that, due to COVID-19, we are unable to see patients in clinic. Appointment has been changed to a virtual visit. Requested a call back to confirm and provided direct line. Will send email with appointment instructions as patient is not active on MyChart. documented in this encounter Plan of Treatment Not on filedocumented as of this encounter Visit Diagnoses Not on filedocumented in this encounter Additional Health Concerns Assessment Noted Time PHQ-9 Depression Total Score: 2 01/26/2019 11:18 AM CD T documented as of this encounter Care Teams Gastroenterologist Relationship Specialty Start Date End Date Justin Loya MD PCP - General Family Practice 02/19/11 [facility] [address] [place] [phone] Silas Santiago MD MD Pain Clinic 11/29/13 [facility] [address] [place] [address] documented as of this encounter
--- OUTSIDE RECORDS SUMMARY | 2022-06-23 17:42 | XMS_ITS | Encounter Summary ---
:1990 Author Organization [place] Address [facility] [place] [address] Care Team Providers Name Role Phone Justin Loya MD Primary Care Provider Silas Santiago MD Unavailable Silas Dean MD Unavailable Silas Jorge MD Unavailable Encounter Details Date Type Department Care Team Description 09/11/2020 Travel Social History Tobacco Use Types Packs/Day Years Used Date Smoking Tobacco: Never Smokeless Tobacco: Never Alcohol Use Standard Drinks/Week Comments No 0 (1 standard drink = 0.6 oz pure alcoho l) Sex Assigned at Date Recorded Not on file COVID-19 Exposure Response Date Recorded In the last month, have you been in contact with No / Unsure 09/11/2020 2:39 PM HEMATOLOGY NURSE someone who was confirmed or suspected to have Coronavirus / COVID-19? documented as of this encounter Plan of Treatment Not on filedocumented as of this encounter Visit Diagnoses Not on filedocumented in this encounter Additional Health Concerns Assessment Noted Time PHQ-9 Depression Total Score: 2 01/26/2019 11:18 AM CD T documented as of this encounter Care Teams Sand Mixer Machine Relationship Specialty Start Date End Date Justin Loya MD PCP - General Family Practice 02/19/11 [facility] [address] [place] [phone] Silas Santiago MD MD Pain Clinic 11/29/13 [facility] [address] [place], [place] [address] Silas Dean, Assigned Neuroscience 05/11/20 03/02/21 MD Provider [address] [place] [address] [id number] [place], [place] [id number] Silas Jorge MD Assigned Surgical Provider 05/11/[address] [place] [id number] documented as of this encounter
--- OUTSIDE RECORDS SUMMARY | 2022-06-23 17:42 | XMS_ITS | Encounter Summary ---
:1990 Author Organization [place] Address [address] [facility] [place] [address] Care Team Providers Name Role Phone Justin Loya MD Primary Care Provider Silas Santiago MD Unavailable Reason for Visit Reason Onset Date Comments *-*INCOMING RECORDS*-* 08/30/2019 Appointment 2019 Encounter Details Date Type Department Care Team Description 08/30/2019 PRE VISIT [facility] Silas Valentino *-*INCOMING RECORDS*-* 9 [facility] MD Pieter (Appointment 08/30/2019) 3rd Floor [address] [place], [place] [id number] [address] [place], [place] [phone] Social History Tobacco Use Types Packs/Day Years Used Date Smoking Tobacco: Never Smokeless Tobacco: Never Alcohol Use Standard Drinks/Week Comments No 0 (1 standard drink = 0.6 oz pure alcoho l) Sex Assigned at Date Recorded Not on file documented as of this encounter Miscellaneous Notes Telephone Encounter - Toni Crowe MA - 08/30/2019 7:18 AM CST FUTURE VISIT INFORMATION FUTURE VISIT INFORMATION: ?? Date: 08/30/2019 ?? Time: 440pm ?? Location: [facility] REFERRAL INFORMATION: ?? Referring provider: Dr. Jorge ?? Referring providers clinic: [facility] Ophthalmology ?? Reason for visit/diagnosis Facial Pain RECORDS REQUESTED FROM: Clinic name Comments Records Status Imaging Status [facility] 07/14/2019, 07/18/2019,07/12/2019, 06/24/2019 [facility] MRA Brain 07/14/2019 in PACS C VIDEO DIRECTOR documented in this encounter Plan of Treatment Not on filedocumented as of this encounter Visit Diagnoses Not on filedocumented in this encounter Additional Health Concerns Assessment Noted Time PHQ-9 Depression Total Score: 2 01/26/2019 11:18 AM CD T documented as of this encounter Care Teams Police Judge Relationship Specialty Start Date End Date Justin Loya MD PCP - General Family Practice 02/19/11 [facility] [address] [place] [phone] Silas Santiago MD MD Pain Clinic 11/29/13 [facility] [address] [place] [address] documented as of this encounter
--- OUTSIDE RECORDS SUMMARY | 2022-06-23 17:42 | XMS_ITS | Encounter Summary ---
:1990 Author Organization [place] Address [facility] [place] [address] Care Team Providers Name Role Phone Justin Loya MD Primary Care Provider Silas Santiago MD Unavailable Encounter Details Date Type Department Care Team Description 11/07/2019 Virtual Visit [facility], An jane Stapleton MD [address] [id number] [place], [place] [address] Trigeminal neuralgia Throat Mack Mae, DDS [address] [facility] [address] [place], [place] [address] (Primary Dx) [address] [facility] [address] 4th [place] [address] Social History Tobacco Use Types Packs/Day Years Used Date Smoking Tobacco: Never Smokeless Tobacco: Never Alcohol Use Standard Drinks/Week Comments No 0 (1 standard drink = 0.6 oz pure alcoho l) Sex Assigned at Date Recorded Not on file documented as of this encounter Patient Instructions Patient InstructionsMarga Han RN - 11/07/2019 4:30 PM CDT Follow up with Dr Dean in Facial Pain Clinic in 2 months MRI Brain with and without contrast, Order IN. Call Marga RN for questions/concerns [phone] Thank you for using [email or web address] documented in this encounter Progress Notes Silas Dean MD - 11/07/2019 4:30 PM CDT See dictation documented in this encounter Plan of Treatment Not on filedocumented as of this encounter Visit Diagnoses Diagnosis Trigeminal neuralgia - Primary documented in this encounter Additional Health Concerns Assessment Noted Time PHQ-9 Depression Total Score: 2 01/26/2019 11:18 AM CD T documented as of this encounter Care Teams Pigment Grinder Relationship Specialty Start Date End Date Justin Loya MD PCP - General Family Practice 02/19/11 [facility] [address] [place] [phone] Silas Santiago MD MD Pain Clinic 11/29/13 [facility] [address] [place] [address] documented as of this encounter
--- OUTSIDE RECORDS SUMMARY | 2022-06-23 17:42 | XMS_ITS | Encounter Summary ---
:1990 Author Organization [place] Address [address] [facility] [place] [address] Care Team Providers Name Role Phone Justin Loya MD Primary Care Provider Silas Santiago MD Unavailable Reason for Referral Diagnostic Imaging Ultrasound (Routine) - Closed Specialty Diagnoses / Procedures Referred By Contact Refer red To Contact Radiology. Diagnoses Neck pain on left side Shoulder pain, left Thrombosis of left upper extremity Johan Polalrd MD Rh Ultrasound Procedures US Upper Extremity Venous Duplex Left US Extremity Upper Venous lt [place] [facility] [address] [place], [place] [phone] [place] [address] Referral ID Status Reason Start Date Expiration Date Visits Requ ested Visits Authorized [id number] Closed 12/15/2019 12/14/2020 1 1 Reason for Visit Diagnostic Imaging Ultrasound (Routine) - Closed Specialty Diagnoses / Procedures Referred By Contact Refer red To Contact Radiology. Diagnoses Neck pain on left side Shoulder pain, left Thrombosis of left upper extremity Johan Pollard MD Rh Ultrasound Procedures US Upper Extremity Venous Duplex Left US Extremity Upper Venous lt [place] [facility] [address] [place] [facility] [place] [phone] [place] [address] Referral ID Status Reason Start Date Expiration Date Visits Requ ested Visits Authorized [id number] Closed 12/15/2019 12/14/2020 1 1 Encounter Details Date Type Department Care Team Description 12/15/2019 Hospital Encounter [facility] Johan Pollard Neck pain on left side; [facility] MD Ahmet Shoulder pain, left; [address] [place] [facility] Thrombosis of left upper extremity [place] [address] [facility] [phone] [facility] [address] [place] [address] Social History Tobacco Use Types Packs/Day Years Used Date Smoking Tobacco: Never Smokeless Tobacco: Never Alcohol Use Standard Drinks/Week Comments No 0 (1 standard drink = 0.6 oz pure alcoho l) Sex Assigned at Date Recorded Not on file COVID-19 Exposure Response Date Recorded In the last month, have you been in contact with No / Unsure 12/15/2019 10:12 AM CDT someone who was confirmed or [...] Diagnosis Comme nts US UPPER EXTREMITY Routine 12/15/2019 11:24 AM Neck pain on le ft Results for this VENOUS DUPLEX LEFT CDT side procedure are in Shoulder pain, l eft the results Thrombosis of left section. upper extremity documented in this encounter Results US Upper Extremity Venous Duplex Left (12/15/2019 11:24 AM CDT) Anatomical Region Laterality Modality Extremity Ultrasound Specimen (Source) Anatomical Location Collection Method / Collectio n Time Received Time / Laterality Volume Impressions 12/15/2019 12:06 PM CDT IMPRESSION: No evidence of left upper extremity deep venous thrombosis. DEYVI OMER MD Narrative 12/15/2019 12:06 PM CDT ULTRASOUND VENOUS LOWER EXTREMITY UNILAT ERAL RIGHT 12/15/2019 11:24 AM HISTORY: r/o DVT. Left neck pain and issac ulder pain similar to symptoms of previous IJ DVT.; Neck pain on left s mariah; Shoulder pain, left; Thrombosis of left upper extremity COMPARISON: 06/20/2018. TECHNIQUE: Ultrasound lopez scale, Color Doppler flow, and spectral Doppler waveform analysis performed. FINDINGS: The left internal jugular, subclavian, a xillary, cephalic, brachial, basilic, radial and ulnar veins are stack nt without evidence of deep venous thrombosis. Procedure Note Deyvi Omer MD - 12/15/2019 ULTRASOUND VENOUS LOWER EXTREMITY UNILAT ERAL RIGHT 12/15/2019 11:24 AM HISTORY: r/o DVT. Left neck pain and issac ulder pain similar to symptoms of previous IJ DVT.; Neck pain on left s mariah; Shoulder pain, left; Thrombosis of left upper extremity COMPARISON: 06/20/2018. TECHNIQUE: Ultrasound lopez scale, Color Doppler flow, and spectral Doppler waveform analysis performed. FINDINGS: The left internal jugular, subclavian, a xillary, cephalic, brachial, basilic, radial and ulnar veins are stack nt without evidence of deep venous thrombosis. IMPRESSION: No evidence of left upper extremity deep venous thrombosis. DEYVI OMER MD Johan Pollard MD IMG US ORDERABLES documented in this encounter Visit Diagnoses Diagnosis Neck pain on left side Cervicalgia Shoulder pain, left Pain in joint, shoulder region Thrombosis of left upper extremity documented in this encounter Additional Health Concerns Assessment Noted Time PHQ-9 Depression Total Score: 2 01/26/2019 11:18 AM CD T documented as of this encounter Care Teams Chimney Builder Relationship Specialty Start Date End Date Justin Loya MD PCP - General Family Practice 02/19/11 [facility] [address] [facility] [place] [phone] Silas Santiago MD MD Pain Clinic 11/29/13 [facility] [address] [place] [address] documented as of this encounter
--- OUTSIDE RECORDS SUMMARY | 2022-06-23 17:42 | XMS_ITS | Encounter Summary ---
:1990 Author Organization [place] Address [facility] [place] [address] Care Team Providers Name Role Phone Justin Loya MD Primary Care Provider Silas Santiago MD Unavailable Reason for Visit Reason Comments Consult For proptosis Encounter Details Date Type Department Care Team Description 08/29/2019 Office Visit Silas Murphy Intermitte nt Ophthalmology exophthalmos of right [address] [place] [address] eye (Primary Dx) 4th Floor [place], [place] [phone] Social History Tobacco Use Types Packs/Day Years Used Date Smoking Tobacco: Never Smokeless Tobacco: Never Alcohol Use Standard Drinks/Week Comments No 0 (1 standard drink = 0.6 oz pure alcoho l) Sex Assigned at Date Recorded Not on file documented as of this encounter Progress Notes Silas Jorge MD - 08/29/2019 7:30 AM CST Chief Complaints and History of Present Illnesses Patient presents with ??? Consult For proptosis Chief Complaint(s) and History of Present Illness(es) Consult For In right eye. Occurring constantly. It is worse throughout the day. Since onset it is stable. Associated symptoms include eye pain. Treatments tried include no treatments. Pain was noted as 8/10. Additional comments: proptosis Comments Destiney Cassidy is being seen today by the request of Dr. Eller for proptosis right eye. Pt states there all the time. Started 6 months ago. Trigeminal nerve pain off and on. ENT visit a few days ago caused some pain that is still ongoing. Pt has MRA results with her. Not on any eye drops. No blurred vision. Chayito Santiago COT 7:43 AM August 29, 2019 Assessment & Plan Destiney Cassidy is a 28 year old female with the following diagnoses: 1. Intermittent exophthalmos of right eye MRA - no obvious orbital pathology PLAN: Would consider MRI orbit with lesly Neuro-op eval Attending Physician Attestation: Complete documentation of historical and exam elements from today'sencounter can be found in the full encounter summary report (not reduplicated in this progress note). I personally obtained the chief complaint(s) and history of present illness. I confirmed and editedas necessary the review of systems, past medical/surgical history, family history, social history, and examination findings as documented by others; and I examined the patient myself. I personally reviewed the relevant tests, images, and reports as documented above. I formulated and edited as necessary the assessment and plan and discussed the findings and management plan with the patient and family.I personally reviewed the ophthalmic test(s) associated with this encounter, agree with the interpretation(s) as documented and have edited the corresponding report(s) as necessary. -Silas Jorge MD 8:21 AM 08/29/2019 UNT RELATIONSHIP MANAGER documented in this encounter Nursing Notes Chayito Santiago - 08/29/2019 7:30 AM CST Chief Complaints and History of Present Illnesses Patient presents with ??? Consult For proptosis Chief Complaint(s) and History of Present Illness(es) Consult For Laterality: right eye Frequency: constantly Timing: throughout the day Course: stable Associated symptoms: eye pain Treatments tried: no treatments Pain scale: 8/10 Comments: proptosis Comments Destiney Cassidy is being seen today by the request of Dr. Eller for proptosis right eye. Pt states there all the time. Started 6 months ago. Trigeminal nerve pain off and on. ENT visit a few days ago caused some pain that is still ongoing. Pt has MRA results with her. Not on any eye drops. No blurred vision. Chayito Santiago COT 7:43 AM August 29, 2019 UNT RELATIONSHIP MANAGER documented in this encounter Plan of Treatment Not on filedocumented as of this encounter Procedures Procedure Name Priority Date/Time Associated Diagnosis Comme nts EXTERNAL PHOTOS OU Routine 08/29/2019 9:30 AM Intermittent Res ults for this (BOTH EYES) ACCOUNT RELATIONSHIP MANAGER exophthalmos of right proced ure are in eye the results section. documented in this encounter Results External Photos OU (both eyes) (08/29/2019 9:30 AM ACCOUNT RELATIONSHIP MANAGER) Narrative Silas Jorge MD - 08/29/2019 9:30 A M ACCOUNT RELATIONSHIP MANAGER Performed by: franco . Patient cooperation: Reliable . Start time: 8:01 AM . Right Eye Reliability of the test: Good . Left Eye Reliability of the test: Good . Notes Consistent with exam. Results documented under Exam and A&P. ?? Silas Jorge MD OPHTHALMOLOGY documented in this encounter Visit Diagnoses Diagnosis Intermittent exophthalmos of right eye - Primary Intermittent exophthalmos documented in this encounter Additional Health Concerns Assessment Noted Time PHQ-9 Depression Total Score: 2 01/26/2019 11:18 AM CD T documented as of this encounter Care Teams Pipefitter Helper Relationship Specialty Start Date End Date Justin Loya MD PCP - General Family Practice 02/19/11 [facility] [address] [place] [address] Silas Santiago MD MD Pain Clinic 11/29/13 [facility] [address] [facility] [place] [address] documented as of this encounter
--- OUTSIDE RECORDS SUMMARY | 2022-06-23 17:42 | XMS_ITS | Encounter Summary ---
:1990 Author Organization [place] Address [facility] [place] [address] Care Team Providers Name Role Phone Justin Loya MD Primary Care Provider Silas Santiago MD Unavailable Reason for Visit Reason Comments New Patient UMP NEW FACIAL PAIN REFERRED BY XAVIER MARTIN [place] PER DR MEADOWS Encounter Details Date Type Department Care Team Description 08/30/2019 Office Visit [facility] Silas Valentino Facial pain (Primary [address] [facility] MD Pieter Dx) 3rd Floor [address] [place], [place] [id number] [place], [place] [phone] Social History Tobacco Use Types Packs/Day Years Used Date Smoking Tobacco: Never Smokeless Tobacco: Never Alcohol Use Standard Drinks/Week Comments No 0 (1 standard drink = 0.6 oz pure alcoho l) Sex Assigned at Date Recorded Not on file documented as of this encounter Last Filed Vital Signs Vital Sign Reading Time Taken Comments Blood Pressure 116/78 08/30/2019 4:44 PM TAKE OUT WAITER Pulse 77 08/30/2019 4:44 PM TAKE OUT WAITER Temperature - - Respiratory Rate 16 08/30/2019 4:44 PM TAKE OUT WAITER Oxygen Saturation 100% 08/30/2019 4:44 PM TAKE OUT WAITER Inhaled Oxygen Concentration - - Weight - - Height - - Body Mass Index - - documented in this encounter Patient Instructions Patient InstructionsMarga Han RN - 08/30/2019 4:40 PM CST Patient will be called with the following appointments 1. Dr. Mack Mae, JACE Address: [address] [place] [phone] 2. Follow up in the Complex Facial Pain Clinic October on November 06, [facility] 4th Floor. Start Tegretol XR ( Carbamazepine) 100mg one the AM and one in the PM MRI Skull Base with and without contrast. Call [phone] to schedule. Marga RN to check with Korey as patient does not tolerate Gadolinium Thank you for using [employer]. Call Marga CARLSON for questions/concerns [phone] 09/01/19 Copy of office visit and face sheet faxed to [email or web address] to schedule appointment with Dr Mae prior to October [facility]. Korin CARLSON OUT WAITER documented in this encounter Progress Notes Kevon Medel MD - 08/30/2019 4:40 PM CST 08/30/2019 Clinic Note Reason for visit: facial pain History of present illness: 28 y/o F w/ hx of Grave's disease, s/p L5/S1 decompression in 2010 presents to clinic with right-sided facial pain. The first time, the patient noticed the pain about 5 years ago. I went away for about2 years but started again about 9 months ago. It presents in flares of one week to a months duration, however, she feels the frequency of the flares has increased. She describes the pain as pressure and achiness. She denies typcial electric or shooting-like pain. It distributes across the right side of the face with emphasis on V2 and V1, but sometimes radiates down her anterior neck. She also noticed that her eyes start tearing and her nose clogs up. Typically, stress, seasonal changed or applying m christine-up would worsen the pain. Ibuprofen helps to decrease the pressure component of the pain. Similar effect was noticed with CBD. Furthermore, meditation helps with the pain. She also noticed that her right eye started pulsation, however, it is not associated with pain and she feels she could tolerate it. She denies weakness, change in vision or loss of consciousness. Review of systems: 10 point ROS negative except for as detailed in HPI Past Medical History: Past Medical History: Diagnosis [...] ??? WISDOM TEETH EXTRACTION Medications: Current Outpatient Medications Medication ??? carBAMazepine (TEGRETOL XR) 100 MG 12 hr tablet ??? ibuprofen (ADVIL/MOTRIN) 200 MG tablet ??? methimazole (TAPAZOLE) 5 MG tablet ??? sucralfate (CARAFATE) 1 GM/10ML suspension No current facility-administered medications for this visit. Social history: Family history: no contributory to facial pain Physical exam: BP 116/78 (BP Location: Left arm, Patient Position: Chair, Cuff Size: Adult Regular) Pulse 77 Resp 16 SpO2 100% General: Awake and alert and in no acute distress. Pulm: Breathing comfortably on room air CN: Right eye is visibly pulsating, visual field intact, symmetric browlift, smile, tongue protrusion, palate elevation, and sternocleidomastoids. No dysarthria. Extraocular muscles are all intact. Pupils react bilaterally and equally Coordination: Intact kaidkl-gxil-ciabze bilaterally. Motor: No pronator drift. Good muscle bulk throughout. 5 out of 5 strength in bilateral upper and lower extremities Gait: Intact tandem gait. Imaging: No imaging to evaluate trigeminal nerve Assessment: 28 y/o F presents with right-sided facial pain. While the presentation has components of TN, it alsohas several atypical features. Available brain MRIs do not allow to evaluate for a possible blood vessel pressing on the TN. We discussed different options such as attending our multi-disciplinary facial pain clinic, a trial of carbamazepine and a high resolution MRI could be beneficial for further work-up. We also discussed the benefit of a cerebral angiography to evaluate for a possible fistula causing her right eye pulsation. Plan: - 100mg BID carbamazepine - high resolution, thin cut MRI for trigeminal nerve evaluation - follow-up in our multi-disciplinary facial pain clinic - consider cerebral angiography to rule out orbital fistula Patient seen and discussed with MD Kevon Munoz MD Neurosurgery, PGY-1 OUT WAITER documented in this encounter Nursing Notes Vilma Soto - 08/30/2019 4:40 PM CST Chief Complaint Patient presents with ??? New Patient UMP NEW FACIAL PAIN REFERRED BY XAVIER MARTIN [place] PER DR DORI Soto NUCLEAR MEDICINE MEDICAL DIRECTOR OUT WAITER documented in this encounter Plan of Treatment Not on filedocumented as of this encounter Visit Diagnoses Diagnosis Facial pain - Primary Headache documented in this encounter Additional Health Concerns Assessment Noted Time PHQ-9 Depression Total Score: 2 01/26/2019 11:18 AM CD T documented as of this encounter Care Teams Keyboard Operator Relationship Specialty Start Date End Date Justin Loya MD PCP - General Family Practice 02/19/11 [facility] [address] [place] [phone] Silas Santiago MD MD Pain Clinic 11/29/13 [facility] [address] [place] [address] documented as of this encounter
--- OUTSIDE RECORDS SUMMARY | 2022-06-23 17:42 | XMS_ITS | Encounter Summary ---
:1990 Author Organization [facility] Address [address] [place] [address] Care Team Providers Name Role Phone Justin Loya MD Primary Care Provider Silas Santiago MD Unavailable Reason for Visit Reason Comments Palpitations Encounter Details Date Type Department Care Team Description 07/27/2019 [facility] Saurav Parnell MD Palpitations; Emergency Dept [facility] Graves disease [address] [place], [place] [id number] [place], [place] [address] (Wo rk) Social History Tobacco Use Types Packs/Day Years Used Date Smoking Tobacco: Never Smokeless Tobacco: Never Alcohol Use Standard Drinks/Week Comments No 0 (1 standard drink = 0.6 oz pure alcoho l) Sex Assigned at Date Recorded Not on file documented as of this encounter Last Filed Vital Signs Vital Sign Reading Time Taken Comments Blood Pressure 114/67 07/27/2019 9:00 PM [facility] Pulse 68 07/27/2019 9:00 PM [facility] Temperature 36.7 ??C (98.1 ??F) 07/27/2019 7:09 PM [facility] Respiratory Rate 17 07/27/2019 9:00 PM [facility] Oxygen Saturation 96% 07/27/2019 9:00 PM [facility] Inhaled Oxygen Concentration - - Weight 52.2 kg (115 lb) 07/27/2019 7:02 PM [facility] Height - - Body Mass Index 18.01 03/23/2019 5:22 PM CDT documented in this encounter Discharge Instructions Discharge InstructionsSaurav Valle MD - 07/27/2019 9:01 PM CST Continue your PTU. Start your atenolol as prescribed [facility] AttachmentsThe following attachments cannot be sent through Care Everywhere. Hyperthyroidism (Ecuadorean)Palpitations (Ecuadorean)documented in this encounter Medications at Time of Discharge Medication Sig Dispensed Refills Start Date End Date ibuprofen (ADVIL/MOTRIN) Take 3 tablets (600 30 tablet 0 08/01/2021 200 MG tablet mg) by mouth every 8 hours as needed for mild pain sucralfate (CARAFATE) 1 Take 10 mLs (1 g) by 420 mL 0 08/01/2021 GM/10ML suspension mouth 4 times daily documented as of this encounter ED Notes Jennifer Corona RN - 07/27/2019 7:00 PM CST Recently diagnosed with Grave's disease. Started taking new medications today. Has been having intermittent palpitations all day. Fit bit stated HR as high as 170 and dropping down into 40's. Reports feeling occasional chest tightness, SOB and dizziness. [facility] Saurav Valle MD - 07/27/2019 6:52 PM CST History Chief Complaint: Palpitations HPI Destiney Cassidy is a 28 year old female who presents with with intermittent feelings of palpitations throughout the day today. Patient was recently diagnosed with Graves' disease and started her PTU medication today. She is also prescribed a beta-luisana but she has not started that due to concerns of side effects. Patient states that she has felt a sensation of palpitations intermittently throughout the day but she is not sure if it is her heart racing or if she is just more worried and stressed or anxious about her recent diagnosis. She does admit she also has not been drinking much fluid throughout the day today. She is not having vomiting diarrhea fevers fainting or other complaints. Allergies: Allergies Allergen Reactions ??? Cefprozil Hives and Unknown SWEILLING FEET AND HANDS SWEILLING FEET AND HANDS Hives, swelling of hands/feet Cefzil - Hives. Hives, swelling of hands/feet Cefzil - Hives. ??? Penicillins Hives Hives, swelling of hands/feet PN: rash PN: rash Hives, swelling of hands/feet ??? Cephalosporins Unknown ??? Ciprofloxacin Unknown Nerve pain Other reaction(s): Other (see comments) Cipro - Nerve pain. Nerve pain Cipro - Nerve pain. ??? Penicillin G Hives SWELLING FEET AND HANDS ??? Pollen Extract Unknown and Other (See Comments) Seasonal Allergies - Sneezing. Seasonal Allergies - Sneezing. Medications: ibuprofen (ADVIL/MOTRIN) 200 MG tablet sucralfate (CARAFATE) 1 GM/10ML suspension Atenolol 25 mg daily PTU Problem List: Patient Active Problem List Diagnosis Date Noted ??? 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 Anxiety ??? Insomnia ??? POTS (postural orthostatic tachycardia syndrome) ??? Thrombosis of left jugular vein ??? Trigeminal neuralgia Graves' disease Past Surgical History: Past Surgical History: Procedure Laterality Date ??? DECOMPRESSION LUMBAR MINIMALLY INVASIVE ONE LEVEL 02/19/2011 Procedure:DECOMPRESSION LUMBAR MINIMALLY INVASIVE ONE LEVEL; L5-S1; Surgeon:KAYE HERNANDEZ; Location:[facility] OR ??? MYRINGOTOMY, INSERT TUBE BILATERAL, COMBINED ??? TONSILLECTOMY ??? WISDOM TEETH EXTRACTION Family History: No family history on file. Social History: Marital Status: [2] Social History Tobacco Use ??? Smoking status: Never Smoker ??? Smokeless tobacco: Never Used Substance Use Topics ??? Alcohol use: No ??? Drug use: No Review of Systems Constitutional: Negative for appetite change and fever. Cardiovascular: Positive for palpitations. Negative for chest pain and leg swelling. Gastrointestinal: Negative for abdominal pain. Psychiatric/Behavioral: The patient is nervous/anxious. All other systems reviewed and are negative. Physical Exam First Vitals: BP: 127/68 Pulse: 84 Heart Rate: 79 Temp: 98.1 ??F (36.7 ??C) Resp: 18 Weight: 52.2 kg (115 lb) SpO2: 99 % Physical Exam Vital signs and nursing notes reviewed. Constitutional: Thin appearing female laying on gurney appears comfortable HENT: Oropharynx is clear and moist Eyes: Conjunctivae are normal bilaterally. Pupils equal Neck: normal range of motion Cardiovascular: Normal rate, regular rhythm, normal heart sounds. Pulmonary/Chest: Effort normal and breath sounds normal. No respiratory distress. Abdominal: Soft. Bowel sounds are normal. No tenderness to palpation. No rebound or guarding. Musculoskeletal: No joint swelling or edema. Neurological: Alert and oriented. No focal weakness Skin: Skin is warm and dry. No rash noted. Psych: normal affect Emergency Department Course ECG: Normal sinus rhythm at a rate of 98 bpm. Normal [place] QRS and QT intervals. Laboratories (abnormal only, refer to results section for normal values): Labs Ordered and Resulted from Time of ED Arrival Up to the Time of Departure from the ED HEPATIC PANEL - Abnormal; Notable for the following components: Result Value Bilirubin Direct 0.3 (*) ALT 52 (*) All other components within normal limits BASIC METABOLIC PANEL CBC WITH PLATELETS DIFFERENTIAL Impression & Plan Medical Decision Making: Patient is a pleasant 28-year-old female presents with symptoms of palpitations. Was recently diagnosed with Graves' disease a couple weeks ago and and recently started on medication specifically PTU today. She was also prescribed beta- blockers but has not started them at this point. Patient states that she is feeling palpitations or racing heart rate feeling though she did admit she felt similar when her heart was 80 versus when it was reading up to the high 100s. On arrival patient was in a normalsinus rhythm she was not having any persistent tachycardia or dysrhythmias with continuous cardiac monitoring in the emergency department her basic lab tests unremarkable. I do feel that patient is having any sort of dangerous dysrhythmia at this time and I felt she would be safe for discharge home. Idid advise her to make sure she is taking her PTU as well as starting her beta-luisana medication asthis will likely help her symptomatology. Patient is to follow-up with her primary care physician orendocrinologist as needed and return here for any worsening symptoms specifically severe chest pain shortness of breath fainting or other concern. Patient understands plan and has no questions Diagnosis: ICD-10-CM 1. Palpitations R00.2 2. Graves disease E05.00 Disposition: home Discharge Medications: New Prescriptions No medications on file Saurav Valle MD 07/27/2019 [facility] Saurav Valle MD 07/27/19 211 [facility] documented in this encounter Plan of Treatment Not on filedocumented as of this encounter Procedures Procedure Name Priority Date/Time Associated Comments Diagnosis CBC WITH PLATELETS & STAT 07/27/2019 7:35 PM R esults for this DIFFERENTIAL [facility] procedure are i n the results section. HEPATIC FUNCTION STAT 07/27/2019 7:35 PM Resul ts for this PANEL [facility] procedure are i n the results section. BASIC METABOLIC PANEL STAT 07/27/2019 7:35 PM Results for this [facility] procedure are i n the results section. EKG 12-LEAD, TRACING STAT 07/27/2019 7:04 PM R esults for this ONLY [facility] procedure are i n the results section. documented in this encounter Results (ABNORMAL) Hepatic panel (07/27/2019 7:35 PM [facility]) Analysis Performed At Patho logist Time Signature Bilirubin Direct 0.3 (H) 0.0 - 0.2 07/27/2019 [place] mg/dL 8:02 PM [facility] Bilirubin Total 1.1 0.2 - 1.3 07/27/2019 [place] mg/dL 8:02 PM [facility] Albumin 3.9 3.4 - 5.0 07/27/2019 [place] g/dL 8:02 PM [facility] Protein Total 7.2 6.8 - 8.8 07/27/2019 [place] g/dL 8:02 PM [facility] Alkaline 55 40 - 150 07/27/2019 [place] Phosphatase U/L 8:02 PM [facility] ALT 52 (H) 0 - 50 U/L 07/27/2019 [place] 8:02 PM [facility] AST 30 0 - 45 U/L 07/27/2019 [place] 8:02 PM [facility] Specimen Anatomical Collection Method Collection Time Receive d Time (Source) Location / / Volume Laterality Blood specimen 07/27/2019 7:35 PM 020 7:43 (specimen) [facility] PM [facility] Saurav Valle MD LAB - BLOOD ORDERABLES Performing Organization Address City/State/ZIP Code Phon e Number M [facility] [address] [place] [address] [phone] [facility] [address] [place] [address], [place] [phone] CBC with platelets differential (07/27/2019 7:35 PM [facility]) [facility] Method Time Signature WBC 6.3 4.0 - 07/27/2019 [facility] 11.0 7:46 PM [facility] 10e9/L [facility] RBC Count 4.57 3.8 - 5.2 07/27/2019 [facility] 10e12/L 7:46 PM [facility] Hemoglobin 13.6 11.7 - 07/27/2019 [facility] 15.7 g/dL 7:46 PM [facility] Hematocrit 40.6 35.0 - 07/27/2019 [facility] 47.0 % 7:46 PM [facility] MCV 89 78 - 100 07/27/2019 [facility] fl 7:46 PM [facility] MCH 29.8 26.5 - 07/27/2019 [facility] 33.0 pg 7:46 PM [facility] MCHC 33.5 31.5 - 07/27/2019 [facility] 36.5 g/dL 7:46 PM [facility] RDW 11.3 10.0 - 07/27/2019 [facility] 15.0 % 7:46 PM [facility] Platelet Count 255 150 - 450 07/27/2019 [facility] 10e9/L 7:46 PM [facility] Diff Method Automated 07/27/2019 [facility] Method 7:46 PM [facility] % Neutrophils 57.6 % 07/27/2019 [facility] 7:46 PM [facility] % Lymphocytes 26.3 % 07/27/2019 [facility] 7:46 PM [facility] % Monocytes 12.1 % 07/27/2019 [facility] 7:46 PM [facility] % Eosinophils 2.7 % 07/27/2019 [facility] 7:46 PM [facility] % Basophils 1.1 % 07/27/2019 [facility] 7:46 PM [facility] % Immature 0.2 % 07/27/2019 [facility] Granulocytes 7:46 PM [facility] Nucleated RBCs 0 0 /100 07/27/2019 [facility] 7:46 PM [facility] Absolute 3.6 1.6 - 8.3 07/27/2019 [facility] Neutrophil 10e9/L 7:46 PM [facility] Absolute 1.7 0.8 - 5.3 07/27/2019 [facility] Lymphocytes 10e9/L 7:46 PM [facility] Absolute 0.8 0.0 - 1.3 07/27/2019 [facility] Monocytes 10e9/L 7:46 PM [facility] Absolute 0.2 0.0 - 0.7 07/27/2019 [facility] Eosinophils 10e9/L 7:46 PM [facility] Absolute 0.1 0.0 - 0.2 07/27/2019 [facility] Basophils 10e9/L 7:46 PM [facility] Abs Immature 0.0 0 - 0.4 07/27/2019 [facility] Granulocytes 10e9/L 7:46 PM [facility] Absolute 0.0 07/27/2019 [facility] Nucleated RBC 7:46 PM [facility] Specimen Anatomical Collection Method Collection Time Receive d Time (Source) Location / / Volume Laterality Blood specimen 07/27/2019 7:35 PM 020 7:43 (specimen) [facility] PM [facility] Saurav Valle MD LAB - BLOOD ORDERABLES Performing Organization Address City/State/ZIP Code Phon e Number M [facility] [address] [address] [facility] [address] [phone] Basic metabolic panel (07/27/2019 7:35 PM [facility]) athologist Signature Sodium 140 133 - 144 07/27/2019 [facility] mmol/L 7:54 PM [facility] Potassium 4.0 3.4 - 5.3 07/27/2019 [facility] mmol/L 7:54 PM [facility] Chloride 108 94 - 109 07/27/2019 [place] mmol/L 7:54 PM [facility] Carbon Dioxide 28 20 - 32 07/27/2019 [place] mmol/L 8:00 PM [facility] Anion Gap 4 3 - 14 07/27/2019 [place] mmol/L 8:00 PM [facility] Glucose 99 70 - 99 07/27/2019 [place] mg/dL 8:00 PM [facility] Urea Nitrogen 20 7 - 30 07/27/2019 [place] mg/dL 8:00 PM [facility] Creatinine 0.60 0.52 - 07/27/2019 [facility] 1.04 mg/dL 8:00 PM [facility] GFR Estimate >90 >60 07/27/2019 [place] mL/min/{1. 8:00 PM [facility] 73_[id number]} HOSPITAL Comment: Non GFR Calc Starting 07/06/2018, serum creatinine ba sed estimated GFR (eGFR) will be calculated using the Chronic Kidney Dise [facility] Epidemiology Collaboration (CKD-EPI) equation. GFR Estimate If >90 >60 mL/min/{1.73_m2} 07/27/2019 8: 00 PM [facility] Comment: GFR Calc Starting 07/06/2018, serum creatinine ba sed estimated GFR (eGFR) will be calculated using the Chronic Kidney Dise [facility] Epidemiology Collaboration (CKD-EPI) equation. Calcium 9.2 8.5 - 10.1 mg/dL 07/27/2019 8:00 PM [facility] Specimen Anatomical Collection Method Collection Time Receive d Time (Source) Location / / Volume Laterality Blood specimen 07/27/2019 7:35 PM 020 7:43 (specimen) [facility] PM [facility] Saurav Valle MD LAB - BLOOD ORDERABLES Performing Organization Address City/State/ZIP Code Phon e Number M [facility] [address] [address] [facility] [address] [phone] EKG 12-lead, tracing only (07/27/2019 7:04 PM [facility]) [facility] gist Method Time Signature Interpretation ECG Click View RADIOLOGY Image link RESULTS to view waveform and result Specimen (Source) Anatomical Collection Method Collection Time Re ceived Time Location / / Volume Laterality 07/27/2019 7:04 PM [facility] Saurav Valle MD ECG ORDERABLES Performing Organization Address City/State/ZIP Code Phon e Number RADIOLOGY RESULTS documented in this encounter Visit Diagnoses Diagnosis Palpitations Graves disease Toxic diffuse goiter without mention of thyrotoxic crisis or storm documented in this encounter Additional Health Concerns Assessment Noted Time PHQ-9 Depression Total Score: 2 01/26/2019 11:18 AM CD T documented as of this encounter Care Teams Nitroglycerin Separator Operator Relationship Specialty Start Date End Date Justin Loya MD PCP - General Family Practice 02/19/11 [facility] [id number] [place] [phone] Silas Santiago MD MD Pain Clinic 11/29/13 [facility] [address] [place] [address] documented as of this encounter
--- OUTSIDE RECORDS SUMMARY | 2022-06-23 17:42 | XMS_ITS | Encounter Summary ---
:1990 Author Organization Supply Address [address] [facility] [place] [address] Care Team Providers Name Role Phone Justin Loya MD Primary Care Provider Silas Santiago MD Unavailable Reason for Visit Reason Comments Abdominal Pain Encounter Details Date Type Department Care Team Description 01/31/2020 Emergency [facility] Quincy Fallon abdominal pain; [facility] Emergency Dep jennifer Martini MD Urinary tract infection without hematuri a, site unspecified [address] [facility] [place], [place] [address] [address] [phone] [address] [place] [address] (Wo rk) Social History Tobacco Use Types Packs/Day Years Used Date Smoking Tobacco: Never Smokeless Tobacco: Never Alcohol Use Standard Drinks/Week Comments No 0 (1 standard drink = 0.6 oz pure alcoho l) Sex Assigned at Date Recorded Not on file documented as of this encounter Last Filed Vital Signs Vital Sign Reading Time Taken Comments Blood Pressure 111/79 01/31/2020 2:03 PM CDT Pulse 84 01/31/2020 2:03 PM CDT Temperature 36.9 ??C (98.4 ??F) 01/31/2020 2:03 PM CDT Respiratory Rate 18 01/31/2020 2:03 PM CDT Oxygen Saturation 99% 01/31/2020 2:03 PM CDT Inhaled Oxygen Concentration - - Weight - - Height - - Body Mass Index - - documented in this encounter Discharge Instructions Discharge InstructionsQuincy Fallon MD - 01/31/2020 6:01 PM CDT Follow up with MAIL CLERK BILLS AttachmentsThe following attachments cannot be sent through Care Everywhere. Abdominal Pain, Early ([place])Urinary Tract Infections in Women ([place])documented in this encounter Medications at Time of Discharge Medication Sig Dispensed Refills Start Date End Date fosfomycin (MONUROL) 3 g Take 1 packet (3 g) 1 packet 0 01/31/2020 Packet by mouth once for 1 dose carBAMazepine (TEGRETOL Take 1 tablet (100 60 [...] documented as of this encounter ED Notes Maritza Mccollum RN - 01/31/2020 2:02 PM CDT ABCs intact. Pt c/o RLQ abdominal pain x 2 days. Pt is about 7 weeks . Pt denies vaginal bleeding or discharge. Pt sent to r/o ovarian torsion. Denies v/d, sore throat, cough, fever, or rash Quincy Fallon MD - 01/31/2020 2:01 PM CDT History Chief Complaint: Abdominal Pain HPI Destiney Cassidy is a 29 year old year old female with a history of DVT, Graves disease, POTS, and trigeminal neuralgia who presents for evaluation of abdominal pain. Of note, the patient is 7 weeks , and this is her first . She states she has been having abdominal pain for the past two days that comes and goes. She had a transvaginal ultrasound yesterday but they were unable to viewher right ovary which is right where she is experiencing pain. She said upon exam everything looked normal yesterday including her HCG. The patient endorses nausea and a decrease in appetite, as well as constipation for which she took Miralax that does not seem to have worked yet. She denies fever, chills, pain when pee, diarrhea, blood in stool, or surgery on her abdomen. 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 Negative for chills and fever. Gastrointestinal: Positive for abdominal pain, constipation and nausea. Negative for blood in stool and diarrhea. Genitourinary: Negative for dysuria. All other systems reviewed and are negative. Physical Exam Patient Vitals for the past 24 hrs: BP Temp Temp src Pulse Resp SpO2 01/31/20 1403 111/79 98.4 ??F (36.9 ??C) Oral 84 18 99 % Physical Exam General: Patient is awake, alert and interactive when I enter the room. Sitting up in bed. Head: The scalp, face, and head appear normal Eyes: The pupils are equal, round, and reactive to light. Conjunctivae and sclerae are normal Neck: Normal range of motion. No anterior cervical lymphadenopathy noted CV: Regular rate. S1/S2. No murmurs. Resp: Lungs are clear without wheezes or rales. No respiratory distress. GI: Abdomen is soft, no rigidity. No evidence of pulsatile mass. No fluid waves or evidence of ascites. No distension. She is tender to palpation in the right lower quadrant. There is no rebound or guarding. No hernias or bruising are noted in detailed exam. No CVA tenderness. Patient deferred Pelvic exam MS: Normal tone. Joints grossly normal without effusions. No asymmetric leg swelling, calf or thigh tenderness. Skin: No rash or lesions noted. Normal capillary refill noted Neuro: Speech is normal and fluent. Face is symmetric. Moving all extremities. Psych: Normal affect. Appropriate interactions. Emergency Department Course Imaging: Radiology results were communicated with the patient who voiced understanding of the findings. US OB 1st Trimester W Transvaginal W Doppler: Limited imaging due to patient pain. Patient declined to have fetus scanned and declined full transvaginal imaging. Both ovaries are seen transabdominally and appear grossly normal with blood flow. Theright ovary measures 2.2 x 1.5 x 1.4 cm, left 2.9 x 2.0 x 1.8 cm. US Appendix Only: The appendix is not visualized. Reading per radiology Laboratory: Laboratory findings were communicated with the patient who voiced understanding of the findings. UA with micro: Leukocyte esterase moderate (A), WBC/HPF 9 (H), Bacteria few (A), Squamous epithelial/HPF 3 (H), Mucous present (A) o/w negative Urine Culture Aerobic Bacteria: Pending Emergency Department Course: 1509 Nursing notes and vitals reviewed. 1520 I performed an exam of the patient as documented above. 1520 A urine sample was obtained for laboratory testing as documented above. 1616 The patient was sent for US while in the emergency department, results above. 1750 I spoke with the patient regarding the results of her imaging and choice of antibiotics. She continued to decline further evaluation including blood work and pelvic exam. 1800 Findings and plan explained to the Patient. Patient discharged home with instructions regardingsupportive care, medications, and reasons to return. The importance of close follow-up was reviewed.The patient was prescribed as below. Impression & Plan Medical Decision Making: Patient is a 29-year-old female who is approximately 7 weeks who presents emergency department today with ongoing right lower quadrant pain. Patient was seen and evaluated by her MAIL CLERK BILLS yesterday where she had a transvaginal ultrasound which did not show any acute pathology and showed a progressing intra-uterine . However they were unable to visualize her right ovary. Her pain continued today thus she presents to the emergency department to obtain a ultrasound to rule out ovarian torsion. Upon initial evaluation patient has some mild tenderness in her right lower quadrant. She is otherwise hemodynamically stable and afebrile. She is overall well-appearing. Patient declines any blood work or pelvic exam and only wanted to have an ultrasound to rule out ovarian torsion. This was obtained which shows blood flow to the right ovary and no significant evidence of torsion. Results were relayed to the patient. Urinalysis does show early evidence of infection and I will prescribe the patient some antibiotics. Unfortunately she has multiple allergies to antibiotics so choosing a antibiotic was difficult. Ultimately we chose fosfomycin for her to take at home. She will need further follow-up with her MAIL CLERK BILLS for further evaluation and treatment. I did also consider alternative pathologies other than ovarian including appendicitis. Ultrasound of her appendix was obtained which unfortunately we were unable to visualize the appendix. I discussed with the patient that further work-up could be pursued however she declined. My overall suspicion for appendicitis is low however I did discuss return precautions with the patient and symptoms of worsening appendicitis. Time of discharge she remained hemodynamically stable and well- appearing. All questions were answered and patient be discharged home in stable condition. Diagnosis: ICD-10-CM 1. RLQ abdominal pain R10.31 2. Urinary tract infection without hematuria, site unspecified N39.0 Disposition: Discharged to home. Discharge Medications: New Prescriptions FOSFOMYCIN (MONUROL) 3 G PACKET Take 1 packet (3 g) by mouth once for 1 dose Scribe Disclosure: Meche Whipple, am serving as a scribe at 3:18 PM on 01/31/2020 to document services personally performed by Quincy Fallon MD based on my observations and the provider's statements to me. Quincy Fallon MD 01/31/20 6799 documented in this encounter Miscellaneous Notes Result Encounter Note - Marshall Andesron RN - 01/31/2020 6:32 PM CDT Final urine culture report is NEGATIVE per [facility] ED Lab Result protocol. If NEGATIVE result, no change in treatment, per [facility] ED Lab Result protocol. documented in this encounter Plan of Treatment Not on filedocumented as of this encounter Procedures Procedure Name Priority Date/Time Associated Comments Diagnosis US OB 1ST TRIMESTER W STAT 01/31/2020 5:30 PM Results for this TRANSVAGINAL W CDT procedure are in DOPPLER the results section. US APPENDIX ONLY STAT 01/31/2020 5:30 PM Resul ts for this CDT procedure are i n the results section. UA MACROSCOPIC WITH STAT 01/31/2020 3:20 PM Re sults for this REFLEX TO MICRO AND CDT procedur e are in CULTURE the results section. URINE CULTURE Routine 01/31/2020 3:20 PM RLQ abdominal pain Re sults for this CDT procedure are i n the results section. documented in this encounter Results US OB 1st Trimester W Transvaginal W Doppler (01/31/2020 5:30 PM CDT) Anatomical Region Laterality Modality Abdomen/Pelvis Ultrasound Specimen (Source) Anatomical Collection Method Collection Time Re ceived Time Location / / Volume Laterality 01/31/2020 4:16 PM CDT Narrative 01/31/2020 5:48 PM CDT EXAM: US OB 1ST TRIMESTER W TRANSVAGINAL W DOPPLER LOCATION: [facility] DATE/TIME: 01/31/2020 4:16 PM INDICATION: Right lower quadrant pain. COMPARISON: None. TECHNIQUE: Transabdominal scans were per formed. Endovaginal ultrasound was performed to better visualize the embryo. FINDINGS: Limited imaging due to patient pain. Pat ient declined to have fetus scanned and declined full transvaginal imaging. Both ovaries are seen transabdominally and appear grossly normal with blood flow. The right ovary measures 2.2 x 1.5 x 1.4 cm, left 2.9 x 2.0 x 1.8 cm. Procedure Note William Martin MD - 01/31/2020Formattin g of this note might be different from the original. EXAM: US OB 1ST TRIMESTER W TRANSVAGINAL W DOPPLER LOCATION: [facility] DATE/TIME: 01/31/2020 4:16 PM INDICATION: Right lower quadrant pain. COMPARISON: None. TECHNIQUE: Transabdominal scans were per formed. Endovaginal ultrasound was performed to better visualize the embryo. FINDINGS: Limited imaging due to patient pain. Pat ient declined to have fetus scanned and declined full transvaginal imaging. Both ovaries are seen transabdominally and appear grossly normal with blood flow. The right ovary measures 2.2 x 1.5 x 1.4 cm, left 2.9 x 2.0 x 1.8 cm. Quincy Fallon MD [facility] US ORDERABLES US Appendix Only (01/31/2020 5:30 PM CDT) Anatomical Region Laterality Modality Abdomen/Pelvis Ultrasound Specimen (Source) Anatomical Collection Method Collection Time Re ceived Time Location / / Volume Laterality 01/31/2020 4:17 PM CDT Narrative 01/31/2020 5:40 PM CDT EXAM: US APPENDIX ONLY LOCATION: [facility] DATE/TIME: 01/31/2020 4:17 PM INDICATION: Right lower quadrant pain COMPARISON: None. TECHNIQUE: Graded compression sonography of the right lower quadrant. FINDINGS: The appendix is not visualized . Procedure Note William Martin MD - 01/31/2020Formattin g of this note might be different from the original. EXAM: US APPENDIX ONLY LOCATION: [facility] DATE/TIME: 01/31/2020 4:17 PM INDICATION: Right lower quadrant pain COMPARISON: None. TECHNIQUE: Graded compression sonography of the right lower quadrant. FINDINGS: The appendix is not visualized . Quincy Fallon MD [facility] US ORDERABLES Urine Culture Aerobic Bacterial (01/31/2020 3:20 PM CDT) Component Value Ref Test Analysis Performed At [facility] Range Method Time Signature Specimen Midstream Urine INFECTIOUS Description DISEASES DIAGNOSTIC LABORATORY Special Specimen received 01/31/2020 INFECTIOUS Requests in preservative 9:15 PM CDT DISEASES DIAGNOSTIC LABORATORY Culture Micro <10,000 colonies/mL 02/01/2020 INFEC TIOUS mixed urogenital estephania 9:42 PM CDT DISEA SES Susceptibility testing not routinely done DIAGNOSTIC LABORATORY Specimen (Source) Anatomical Collection Method Collection Time Re ceived Time Location / / Volume Laterality Examination of 01/31/2020 3:20 01/31/2020 3:53 midstream urine PM CDT PM CDT specimen (procedure) Quincy Fallon MD LAB - MICRO GENERAL ORD ERABLES Performing Organization Address City/State/ZIP Code Phon e Number INFECTIOUS DISEASES [address] [place] [address] DIAGNOSTIC LABORATORY, [facility] INFECTIOUS DISEASES [address] [place] [address], [place] DIAGNOSTIC LABORATORY (ABNORMAL) UA reflex to Microscopic and Culture (01/31/2020 3:20 PM CDT) [facility] Method Time Signature Color Urine Light Yellow 01/31/2020 [place] 3:52 PM [facility] Appearance Urine Clear 01/31/2020 [facility] 3:52 PM [facility] Glucose Urine Negative NEG^Negat 01/31/2020 [place] stephanie mg/dL 3:52 PM [facility] Bilirubin Urine Negative NEG^Negat 01/31/2020 [facility] stephanie 3:52 PM [facility] Ketones Urine Negative NEG^Negat 01/31/2020 [place] stephanie mg/dL 3:52 PM [facility] Specific [place] 1.021 1.003 - 01/31/2020 [place] Urine 1.035 3:52 PM [facility] Blood Urine Negative NEG^Negat 01/31/2020 [facility] stephanie 3:52 PM [facility] pH Urine 7.0 5.0 - 7.0 01/31/2020 [place] pH 3:52 PM [facility] Protein Albumin Negative NEG^Negat 01/31/2020 [place] Urine stephanie mg/dL 3:52 PM [facility] Urobilinogen Normal 0.0 - 2.0 01/31/2020 [place] mg/dL mg/dL 3:52 PM [facility] Nitrite Urine Negative NEG^Negat 01/31/2020 [facility] stephanie 3:52 PM [facility] Leukocyte Moderate (A) NEG^Negat 01/31/2020 [place] Esterase Urine stephanie 3:52 PM [facility] Source Midstream 01/31/2020 [facility] Urine 3:21 PM [facility] RBC Urine <1 0 - 2 01/31/2020 [facility] /HPF 3:53 PM [facility] WBC Urine 9 (H) 0 - 5 01/31/2020 [facility] /HPF 3:53 PM [facility] Bacteria Urine Few (A) NEG^Negat 01/31/2020 [facility] stephanie /HPF 3:53 PM [facility] Squamous 3 (H) 0 - 1 01/31/2020 [place] Epithelial /HPF /HPF 3:53 PM [facility] Mucous Urine Present (A) NEG^Negat 01/31/2020 [place] stephanie /LPF 3:53 PM [facility] Specimen (Source) Anatomical Collection Method Collection Time Re ceived Time Location / / Volume Laterality Examination of 01/31/2020 3:20 01/31/2020 3:26 midstream urine PM CDT PM CDT specimen (procedure) Quincy Fallon MD LAB - URINE ORDERABLES Performing Organization Address City/State/ZIP Code Phon e Number [place] [address], [place] [address] [facility] [address] [place], [place] [address] [facility] [phone] documented in this encounter Visit Diagnoses Diagnosis RLQ abdominal pain Abdominal pain, right lower quadrant Urinary tract infection without hematuri a, site unspecified documented in this encounter Additional Health Concerns Assessment Noted Time PHQ-9 Depression Total Score: 2 01/26/2019 11:18 AM CD T documented as of this encounter Care Teams Finance Advisor Relationship Specialty Start Date End Date Justin Loya MD PCP - General Family Practice 02/19/11 [facility] [address] [place] [phone] Silas Santiago MD MD Pain Clinic 11/29/13 [facility] [address] [place] [address] documented as of this encounter
--- OUTSIDE RECORDS SUMMARY | 2022-06-23 17:42 | XMS_ITS | Encounter Summary ---
:1990 Author Organization [place] Address [facility] [place] [address] Care Team Providers Name Role Phone Justin Loya MD Primary Care Provider Silas Santiago MD Unavailable Reason for Visit Reason Onset Date Comments Referral 07/26/2019 new eval w/ [facility] for proptosis. Encounter Details Date Type Department Care Team Description 07/26/2019 Telephone Juliano Arvizu Ophthalmolo gy Self, Referred, Referral (new eval w/ [address] [facility] for 4th Floor [phone] proptosis. ) [place], [place] (Fax) [phone] Social History Tobacco Use Types Packs/Day [...] documented as of this encounter Care Teams Table Games Dual Rate Supervisor Relationship Specialty Start Date End Date Justin Loya MD PCP - General Family Practice 02/19/11 [facility] [address] [place] [phone] Silas Santiago MD MD Pain Clinic 11/29/13 [facility] [address] [place] [address] documented as of this encounter
--- OUTSIDE RECORDS SUMMARY | 2022-06-23 17:42 | XMS_ITS | Encounter Summary ---
:1990 Author Organization [place] Address [address] [facility] [place] [address] Care Team Providers Name Role Phone Justin Loya MD Primary Care Provider Silas Santiago MD Unavailable Silas Dean MD Unavailable Silas Jorge MD Unavailable Reason for Visit Reason Comments Abdominal Pain Encounter Details Date Type Department Care Team Description 09/15/2020 Emergency [facility] John Stapleton ab dominal pain [facility] Emergency Dep jennifer Gary MD [address] [facility], [place] [address] [address] [phone] [address] [place], [place] [address] (Wo rk) Social History Tobacco Use Types Packs/Day Years Used Date Smoking Tobacco: Never Smokeless Tobacco: Never Alcohol Use Standard Drinks/Week Comments No 0 (1 standard drink = 0.6 oz pure alcoho l) Sex Assigned at Date Recorded Not on file COVID-19 Exposure Response Date Recorded In the last month, have you been in contact with No / Unsure 09/15/2020 10:14 AM COORDINATOR OF PLACEMENT someone who was confirmed or suspected to have Coronavirus / COVID-19? documented as of this encounter Last Filed Vital Signs Vital Sign Reading Time Taken Comments Blood Pressure 118/72 09/15/2020 10:10 AM COORDINATOR OF PLACEMENT Pulse 87 09/15/2020 10:10 AM COORDINATOR OF PLACEMENT Temperature 36.5 ??C (97.7 ??F) 09/15/2020 10:07 AM COORDINATOR OF PLACEMENT Respiratory Rate 16 09/15/2020 10:10 AM COORDINATOR OF PLACEMENT Oxygen Saturation 96% 09/15/2020 10:10 AM COORDINATOR OF PLACEMENT Inhaled Oxygen Concentration - - Weight - - Height - - Body Mass Index - - documented in this encounter Discharge Instructions Discharge John Hill MD - 09/15/2020 12:25 PM COORDINATOR OF PLACEMENT Use tylenol for pain or discomfort Use Oxycodone for severe pain uncontrolled by above medications Opioid Medication Information You have been given a prescription for an opioid (narcotic) pain medicine and/or have received a pain medicine while here in the emergency department. These medicines can make you drowsy or impaired. You must not drive, operate dangerous equipment, or engage in any other dangerous activities while taking these medications. If you drive while taking these medications, you could be arrested for DUI, ordriving under the influence. Do not drink any [...] remaining medication. Many prescription pain medications contain Tylenol (acetaminophen), including Vicodin, Tylenol #3, [place], Lortab, and Percocet. You should not take any extra pills of Tylenol if you are using these prescription medications or you can get very sick. Do not ever take more than 4000 mg of acetaminophen in any 24 hour period. All opioids tend to cause constipation. Drink plenty of water and eat foods that have a lot of fiber, such as fruits, vegetables, prune juice, apple juice and high fiber cereal. Take a laxative if you don???t move your bowels at least every other day. Miralax, Milk of Magnesia, Colace, or Senna can beused to keep you regular. DINATOR OF PLACEMENT AttachmentsThe following attachments cannot be sent through Care Everywhere. Abdominal Pain, Adult (Vietnamese)documented in this encounter Medications at Time of [...] as of this encounter ED Notes Mark Terrazas RN - 09/15/2020 11:52 AM CST at bedside doing US, lab at bedside drawing blood. DINATOR OF PLACEMENT Mark Terrazas RN - 09/15/2020 10:17 AM CST Pt comes in 3 weeks out after having and continuous to have lower abd pain. Pt taking tylenol and ibuprofen without relief, has oxycodone but does not want to take it because she is breast feeding. Pt was here in the ER last week and all test results were within limits, but when pt was looking over her results she noted some abnormalities that she is concerned about. Pt also didn't take herlovenox shot yesterday because she had vaginal bleeding and now has no bleeding. Pt reports not getting out of bed all day long. DINATOR OF PLACEMENT John Stapleton MD - 09/15/2020 10:01 AM CST History Chief Complaint: Abdominal Pain HPI Destiney Cassidy is a 29 year old female, on Lovenox, with history of thrombosis of jugular vein, anxiety, and Grave's disease and status-post section on 08/25 who presents for evaluation of lower abdominal pain. The patient had an uncomplicated section on 08/25 at [facility] and was discharged on Lovenox to help prevent another thrombosis. Since discharge, she has been breast feeding her child and resting in bed for the majority of the day. 11 days ago her incision pain was getting better, but worsened again the following day. She has been using Tylenol and ibuprofen without significant relief and does not want to take her prescribed oxycodone as she is breast feeding. She presented for evaluation 4 days ago for incision pain, where she had a CT and ultrasound, which showed nothing concerning related to a section complication. Since discharge, she has had continued pain, which is worse on the right side, prompting her presentation. Here, the patient also endorses dysuria, which subsides with increased fluid intake. She notes she was prescribed Zithromax for right ear pain for two weeks at an urgent care. With the exception of thepain, Destiney feels close to baseline, especially with her emotions. She denies any other symptoms prompting her presentation. Of note, the patient had heavy vaginal bleeding yesterday and did not take her Lovenox and her bleeding stopped. Review of Systems Gastrointestinal: Positive for abdominal pain. Genitourinary: Positive for vaginal bleeding (Alleviated). All other systems reviewed and are negative. Allergies: Cefprozil Penicillins Cephalosporins Ciprofloxacin Penicillin G Pollen Extract Metoclopramide Medications: Lovenox Roxicodone Tegretol Tapazole Carafate Zithromax Xopenex inhaler Colace Past Medical History: Anxiety Grave's disease Insomnia Postural orthostatic tachycardia syndrome Thrombosis of left jugular vein Trigeminal neuralgia Vaginismus Raynaud's disease Varicella Asthma Migraine Past Surgical History: Decompression lumbar minimally invasive one level Myringotomy, insert tube bilateral Tonsillectomy [place] teeth extraction Family History: Father - Arthritis, DVT Social History: The patient was unaccompanied to the ED. PCP: Justin Loya Physical Exam Patient Vitals for the past 24 hrs: BP Temp Temp src Pulse Resp SpO2 09/15/20 1010 118/72 -- Oral 87 16 96 % 09/15/20 1007 -- 97.7 ??F (36.5 ??C) Oral -- -- -- Physical Exam Gen: Resting comfortably Eyes: Normal conjunctiva, No discharge CV: ppi, regular Resp: speaking in full sentences without any resp distress Abdomen: Lower abdominal horizontal incision without erythema, dehiscence, purulent drainage, palpable subcutaneous hematoma. No distention. Skin: warm dry well perfused Neuro: Alert, no gross motor or sensory deficits, gait stable Emergency Department Course Laboratory: CBC: HGB 10.5 (L) o/w WNL (WBC 5.7, PLT 415) UA with Microscopic: Blood Small (A), Bacteria Few (A) o/w WNL Procedures PROCEDURE NOTE --> Emergency Bedside Ultrasound Procedure Name: Limited abdominal/pelvis bedside ultrasound Preformed by: John Stapleton MD Indication - Abdominal Pain post Probe: low frequency curvilinear probe Windows - Hepatorenal, suprapubic Findings - No intraperitoneal free fluid, small amount of anechoic fluid endometrial canal, no free fluid in the pelvis, no anechoic fluid collection along horizontal lower abdominal incision Impression -no evidence of intraperitoneal free fluid or subcutaneous abscess Images saved to PACS per protocol Emergency Department Course: Reviewed: 1000 I reviewed nursing notes, vitals, past medical history and care everywhere Assessments: 1104 I obtained history and examined the patient as noted above. 1150 I performed a POC ultrasound on the patient, as documented above. 1227 I rechecked the patient and explained findings. Disposition: The patient was discharged to home. Impression & Plan Medical Decision Makin-year-old female presenting with lower abdominal pain after recent section. Was seen hererecently and had an ultrasound and CT scan showing no acute intra-abdominal abnormalities. No ongoing fever vaginal discharge concerning for endometritis, no evidence of wound infection on examination or ultrasound here. Hemoglobin is stable, no leukocytosis, platelet count in the normal range. Urinalysis without signs of infection. Suspect ongoing pain related to abdominal wall healing. Has been on Lovenox due to history of DVT. Plan was for 6 weeks of anticoagulation. She has had some ongoing vaginal bleeding with the Lovenox currently no Lovenox shot today and no significant vaginal bleeding. I think it is a good idea for her to discuss with her associate attorney on Thursday risks and benefits of Lovenox cessation with regards to risk of recurrent thrombosis versus ongoing bleeding risk. She had been taking ibuprofen and concomitantly using Lovenox and will have her use Tylenol if needed previously prescribed oxycodone for pain and avoid NSAIDs while on Lovenox until she can discuss withher associate attorney. Covid-19 Destiney Cassidy was evaluated during a global COVID-19 pandemic, which necessitated consideration that the patient might be at risk for infection with the SARS-CoV-2 virus that causes COVID-19. Applicable protocols for evaluation were followed during the patient's care. COVID-19 was considered as part of the patient's evaluation. Diagnosis: ICD-10-CM 1. Lower abdominal pain R10.30 Scribe Disclosure: Antelmo Whipple, am serving as a scribe at 10:19 AM on 09/15/2020 to document services personally performed by John Stapleton MD based on my observations and the provider's statements to me. September 15, 2020 [facility] John Stapleton MD 09/15/20 1235 DINATOR OF PLACEMENT documented in this encounter Plan of Treatment Not on filedocumented as of this encounter Procedures Procedure Name Priority Date/Time Associated Comments Diagnosis CBC WITH PLATELETS & STAT 09/15/2020 11:58 Res ults for this DIFFERENTIAL AM COORDINATOR OF PLACEMENT procedure are i n the results section. ROUTINE UA WITH STAT 09/15/2020 11:43 Results for this MICROSCOPIC AM COORDINATOR OF PLACEMENT procedure are i n the results section. POC US ABDOMEN STAT 09/15/2020 11:17 Results f or this LIMITED AM [facility] [place] procedure are i n the results section. documented in this encounter Results (ABNORMAL) CBC with platelets differential (09/15/2020 11:58 AM [facility] [place]) [facility] Method Time Signature WBC 5.7 4.0 - 09/15/2020 [facility] 11.0 12:05 [facility] 10e9/L [facility] RBC Count 3.65 (L) 3.8 - 5.2 09/15/2020 [facility] 10e12/L 12:05 [facility] Hemoglobin 10.5 (L) 11.7 - 09/15/2020 [facility] 15.7 g/dL 12:05 [facility] Hematocrit 35.2 35.0 - 09/15/2020 [facility] 47.0 % 12:05 [facility] MCV 96 78 - 100 09/15/2020 [facility] fl 12:05 [facility] MCH 28.8 26.5 - 09/15/2020 [facility] 33.0 pg 12:05 [facility] MCHC 29.8 (L) 31.5 - 09/15/2020 [facility] 36.5 g/dL 12:05 [facility] RDW 12.2 10.0 - 09/15/2020 [facility] 15.0 % 12:05 [facility] Platelet Count 415 150 - 450 09/15/2020 [facility] 10e9/L 12:05 [facility] Diff Method Automated 09/15/2020 [facility] Method 12:05 [facility] % Neutrophils 66.1 % 09/15/2020 [facility] 12:05 [facility] % Lymphocytes 22.4 % 09/15/2020 [facility] 12:05 [facility] % Monocytes 6.1 % 09/15/2020 [facility] 12:05 [facility] % Eosinophils 4.2 % 09/15/2020 [facility] 12:05 [facility] % Basophils 1.0 % 09/15/2020 [facility] 12:05 [facility] % Immature 0.2 % 09/15/2020 [facility] Granulocytes 12:05 [facility] Nucleated RBCs 0 0 /100 09/15/2020 [facility] 12:05 [facility] Absolute 3.8 1.6 - 8.3 09/15/2020 [facility] Neutrophil 10e9/L 12:05 PM [facility] Absolute 1.3 0.8 - 5.3 09/15/2020 [facility] Lymphocytes 10e9/L 12:05 PM [facility] Absolute 0.4 0.0 - 1.3 09/15/2020 [facility] Monocytes 10e9/L 12:05 PM [facility] Absolute 0.2 0.0 - 0.7 09/15/2020 [facility] Eosinophils 10e9/L 12:05 [facility] Absolute 0.1 0.0 - 0.2 09/15/2020 [facility] Basophils 10e9/L 12:05 [facility] Abs Immature 0.0 0 - 0.4 09/15/2020 [facility] Granulocytes 10e9/L 12:05 [facility] Absolute 0.0 09/15/2020 [facility] Nucleated RBC 12:05 [facility] Specimen Anatomical Collection Method Collection Time Receive d Time (Source) Location / / Volume Laterality Blood specimen 09/15/2020 11:58 (specimen) AM COORDINATOR OF PLACEMENT 11:59 AM COORDINATOR OF PLACEMENT John Stapleton MD LAB - BLOOD ORDERABLES Performing Organization Address City/State/ZIP Code Phon e Number M [place] [address] [address] [facility] [address] [phone] (ABNORMAL) UA with Microscopic (09/15/2020 11:43 AM COORDINATOR OF PLACEMENT) [facility] Method Time Signature Color Urine Straw 09/15/2020 [facility] 12:15 PM [facility] Appearance Urine Clear 09/15/2020 [facility] 12:15 PM [facility] Glucose Urine Negative NEG^Negat 09/15/2020 [facility] stephanie mg/dL 12:15 [facility] Bilirubin Urine Negative NEG^Negat 09/15/2020 [facility] stephanie 12:15 PM [facility] Ketones Urine Negative NEG^Negat 09/15/2020 [facility] stephanie mg/dL 12:15 PM [facility] Specific [place] 1.007 1.003 - 09/15/2020 [place] Urine 1.035 12:15 PM [facility] Blood Urine Small (A) NEG^Negat 09/15/2020 [facility] stephanie 12:15 PM [facility] pH Urine 6.0 5.0 - 7.0 09/15/2020 [facility] pH 12:15 PM [facility] Protein Albumin Negative NEG^Negat 09/15/2020 [place] Urine stephanie mg/dL 12:15 PM [facility] Urobilinogen Normal 0.0 - 2.0 09/15/2020 [place] mg/dL mg/dL 12:15 PM [facility] Nitrite Urine Negative NEG^Negat 09/15/2020 [place] stephanie 12:15 PM [facility] Leukocyte Negative NEG^Negat 09/15/2020 [place] Esterase Urine stephanie 12:15 PM [facility] Source Midstream 09/15/2020 [place] Urine 11:43 AM [facility] WBC Urine 2 0 - 5 09/15/2020 [facility] /HPF 12:15 PM [facility] RBC Urine 1 0 - 2 09/15/2020 [facility] /HPF 12:15 PM [facility] Bacteria Urine Few (A) NEG^Negat 09/15/2020 [facility] stephanie /HPF 12:15 PM [facility] Squamous <1 0 - 1 09/15/2020 [facility] Epithelial /HPF /HPF 12:15 PM [facility] Urine [facility] Specimen (Source) Anatomical Collection Method Collection Time Re ceived Time Location / / Volume Laterality Examination of 09/15/2020 11:43 midstream urine AM COORDINATOR OF PLACEMENT 12:02 PM COORDINATOR OF PLACEMENT specimen (procedure) John Stapleton MD LAB - URINE ORDERABLES Performing Organization Address City/State/ZIP Code Phon e Number M [facility] [address] [place], [place] [address] [facility] [address] [place], [place] [address] [phone] POC US ABDOMEN LIMITED (09/15/2020 11:17 AM COORDINATOR OF PLACEMENT) Anatomical Region Laterality Modality Other Specimen (Source) Anatomical Location Collection Method / Collectio n Time Received Time / Laterality Volume Impressions 09/15/2020 11:17 AM COORDINATOR OF PLACEMENT PROCEDURE NOTE --> Emergency Bedside Ultrasound Procedure [...] POCUS documented in this encounter Visit Diagnoses Diagnosis Lower abdominal pain Abdominal pain, other specified site documented in this encounter Additional Health Concerns Assessment Noted Time PHQ-9 Depression Total Score: 2 01/26/2019 11:18 AM CD T documented as of this encounter Care Teams Divinity Teacher Relationship Specialty Start Date End Date Justin Loya MD PCP - General Family Practice 02/19/11 [facility] [address] [place] [phone] Silas Santiago MD MD Pain Clinic 11/29/13 [facility] [address] [place], [place] [address] Silas Dean, Assigned Neuroscience 05/11/20 03/02/21 MD Provider [address] [place] [address] [id number] [place], [place] [id number] Silas Jorge MD Assigned Surgical Provider 05/11/[address] [place] [id number] documented as of this encounter
--- OUTSIDE RECORDS SUMMARY | 2022-06-23 17:42 | XMS_ITS | Encounter Summary ---
:1990 Author Organization [place] Address [address] [facility] [place] [address] Care Team Providers Name Role Phone Justin Loya MD Primary Care Provider Silas Santiago MD Unavailable Encounter Details Date Type Department Care Team Description 08/29/2019 Travel Social History Tobacco Use Types Packs/Day [...] documented as of this encounter Care Teams Home Designer Relationship Specialty Start Date End Date Justin Loya MD PCP - General Family Practice 02/19/11 [facility] [address] [place] [phone] Silas Santiago MD MD Pain Clinic 11/29/13 [facility] [address] [place], [place] [address] documented as of this encounter
--- OUTSIDE RECORDS SUMMARY | 2022-06-23 17:42 | XMS_ITS | Encounter Summary ---
:1990 Author Organization [place] Address [facility] [place] [address] Care Team Providers Name Role Phone Justin Loya MD Primary Care Provider Silas Santiago MD Unavailable Reason for Visit Reason Onset Date Comments Referral 07/29/2019 Encounter Details Date Type Department Care Team Description 07/29/2019 Telephone [facility] Ani Maciel, Referred, Referral [address] [place] [address] [address] [place] [phone] Social History Tobacco Use Types Packs/Day Years [...] documented as of this encounter Care Teams Wood Caulker Relationship Specialty Start Date End Date Jsutin Loya MD PCP - General Family Practice 02/19/11 [facility] [address] [place] [address] Silas Santiago MD MD Pain Clinic 11/29/13 [facility] [address] [place] [address] documented as of this encounter
--- OUTSIDE RECORDS SUMMARY | 2022-06-23 17:42 | XMS_ITS | Encounter Summary ---
:1990 Author Organization [place] Address [address] [facility] [place] [address] Care Team Providers Name Role Phone Justin Loya MD Primary Care Provider Silas Santiago MD Unavailable Encounter Details Date Type Department Care Team Description 12/15/2019 Travel Social History Tobacco Use Types Packs/Day [...] documented as of this encounter Care Teams Mattress Spring Encaser Relationship Specialty Start Date End Date Justin Loya MD PCP - General Family Practice 02/19/11 [facility] [address] [place] [phone] Silas Santiago MD MD Pain Clinic 11/29/13 [facility] [address] [place] [address] documented as of this encounter
--- OUTSIDE RECORDS SUMMARY | 2022-06-23 17:42 | XMS_ITS | Encounter Summary ---
:1990 Author Organization [place] Address [facility] [place] [address] Care Team Providers Name Role Phone Justin Loya MD Primary Care Provider Silas Santiago MD Unavailable Silas Dean MD Unavailable Silas Jorge MD Unavailable Caden Leone MD Unavailable [phone] Liam Thomas MD Unavailable Reason for Visit Reason Onset Date Comments Appointment 08/29/2019 Dr Dean Encounter Details Date Type Department Care Team Description 08/29/2019 Telephone [facility] Neurosurger y Silas Dean Appointment (Dr Dean) 9[address] [facility] MD Pieter 3rd Floor [address] [place], [place] [id number] [address] [place], [place] [phone] [address] Social History Tobacco Use Types Packs/Day Years Used Date Smoking Tobacco: Never Smokeless Tobacco: Never Alcohol Use Standard Drinks/Week Comments No 0 (1 standard drink = 0.6 oz pure alcoho l) Sex Assigned at Date Recorded Not on file documented as of this encounter Miscellaneous Notes Telephone Encounter - Eliza Holcomb - 08/29/2019 10:13 AM CST [facility] Call Center Phone Message May a detailed message be left on voicemail: yes Reason for Call: Other: Pt calling to get an appt with Dr Dean. She is being referred by Dr Burt. Please call pt to schedule. Action Taken: Message routed to: [facility] Neurosurgery Travel Screening: Not Applicable TAL CUTTER documented in this encounter Plan of Treatment Not on filedocumented as of this encounter Visit Diagnoses Not on filedocumented in this encounter Additional Health Concerns Assessment Noted Time PHQ-9 Depression Total Score: 2 01/26/2019 11:18 AM CD T documented as of this encounter Care Teams Reel Stripper Relationship Specialty Start Date End Date Justin Loya MD PCP - General Family Practice 02/19/11 [facility] [address] [place] [address] Silas Santiago MD MD Pain Clinic 11/29/13 [facility] [address] [place] [address] Silas Dean, Assigned Neuroscience 05/11/20 03/02/21 MD Provider [address] [place] [address] [id number] [place], [place] [phone] Silas Jorge MD Assigned Surgical Provider 05/11/[address] [place] [phone] Caden Leone, Assigned Surgical Provider 07/20 01/08 [place] [address] Liam Thomas MD Assigned OBGYN Provider 12/08/21 02/14/22 [address] [address] [place] [address] documented as of this encounter
--- OUTSIDE RECORDS SUMMARY | 2022-06-23 17:42 | XMS_ITS | Encounter Summary ---
:1990 Author Organization [place] Address [facility] [place] [address] Care Team Providers Name Role Phone Justin Loya MD Primary Care Provider Silas Santiago MD Unavailable Encounter Details Date Type Department Care Team Description 08/29/2019 PRE VISIT [facility] Ophthalmolo gy Silas Jorge MD [address] [place] [id number] [place] [address] [phone] Social History Tobacco Use Types Packs/Day Years Used Date Smoking Tobacco: Never Smokeless Tobacco: Never Alcohol Use Standard Drinks/Week Comments No 0 (1 standard drink = 0.6 oz pure alcoho l) Sex Assigned at Date Recorded Not on file documented as of this encounter Miscellaneous Notes Telephone Encounter - CalebHoAshia - 08/03/2019 7:57 AM CST FUTURE VISIT INFORMATION FUTURE VISIT INFORMATION: ?? Date: 08/29/19 ?? Time: 7:30am ?? Location: [facility] REFERRAL INFORMATION: ?? Referring provider: Rohit Eller ?? Referring providers clinic: [facility] ?? Reason for visit/diagnosis pulsaition proptosis right side RECORDS REQUESTED FROM: Clinic name Comments Records Status Imaging Status [facility] Request for recs sent 08/03/19 [id number] received and sent to scanning 08/03 [facility] documented in this encounter Plan of Treatment Not on filedocumented as of this encounter Visit Diagnoses Not on filedocumented in this encounter Additional Health Concerns Assessment Noted Time PHQ-9 Depression Total Score: 2 01/26/2019 11:18 AM CD T documented as of this encounter Care Teams Customer Assistance Representative Relationship Specialty Start Date End Date Justin Loya MD PCP - General Family Practice 02/19/11 [facility] [address] [place] [address] Silas Santiago MD MD Pain Clinic 11/29/13 [facility] [address] [place] [address] documented as of this encounter
--- OUTSIDE RECORDS SUMMARY | 2022-06-23 17:42 | XMS_ITS | Encounter Summary ---
:1990 Author Organization [place] Address [address] [facility] [place] [address] Care Team Providers Name Role Phone Justin Loya MD Primary Care Provider Silas Santiago MD Unavailable Silas Dean MD Unavailable Silas Jorge MD Unavailable Reason for Visit Reason Comments Post-op Problem Encounter Details Date Type Department Care Team Description 09/11/2020 Emergency [facility], Micheal Postoper ative pain; [facility] Emergency Dep t MD Gonzalez S/P section [address] [facility] [place], [place] [address] [address] [phone] [place], [place] [address] (Wo rk) Social History Tobacco Use Types Packs/Day Years Used Date Smoking Tobacco: Never Smokeless Tobacco: Never Alcohol Use Standard Drinks/Week Comments No 0 (1 standard drink = 0.6 oz pure alcoho l) Sex Assigned at Date Recorded Not on file COVID-19 Exposure Response Date Recorded In the last month, have you been in contact with No / Unsure 09/11/2020 2:39 PM HVAC DESIGN ENGINEER someone who was confirmed or suspected to have Coronavirus / COVID-19? documented as of this encounter Last Filed Vital Signs Vital Sign Reading Time Taken Comments Blood Pressure 118/71 09/11/2020 5:00 PM HVAC DESIGN ENGINEER Pulse 72 09/11/2020 3:30 PM HVAC DESIGN ENGINEER Temperature 36.6 ??C (97.8 ??F) 09/11/2020 2:45 PM HVAC DESIGN ENGINEER Respiratory Rate 16 09/11/2020 3:05 PM HVAC DESIGN ENGINEER Oxygen Saturation 96% 09/11/2020 5:00 PM HVAC DESIGN ENGINEER Inhaled Oxygen Concentration - - Weight - - Height - - Body Mass Index - - documented in this encounter Discharge Instructions Discharge InstructionsMicheal Christensen MD - 09/11/2020 6:41 PM HVAC DESIGN ENGINEER Alternate Tylenol and ibuprofen every 6 hours as needed for pain. Use oxycodone for any severe or breakthrough pain. Use lidocaine patch as directed on the box. Follow up with your OB doctor in the next 3-5 days regarding your visit today Return to the ER if you develop fever, worsening pain or any new concerning symptom DESIGN ENGINEER AttachmentsThe following attachments cannot be sent through Care Everywhere.Pain (Post-Op), Managing at Home: Medicines ([place]i)documented in this encounter Medications at Time of [...] as of this encounter ED Notes Jaz Ellis RN - 09/11/2020 5:44 PM CST Patient is currently pumping and wanted to wait on lidocaine patches. DESIGN ENGINEER Yanira Currie RN - 09/11/2020 2:44 PM CST Pt here for increased pain after her on 08/25. States that her pain was getting better but is now worse. States that she has been using motrin, tylenol and oxycodone for pain. On lovenox for previous clots. No bleeding at site. A+Ox4, no acute signs of distress. DESIGN ENGINEER Micheal Christensen MD - 09/11/2020 2:38 PM CST Images from the original note were not included. History Chief Complaint: Post-op Problem RICHAR Cassidy is a 29 year old female who presents with post-op problem. The patient had an uncomplicated section on 08/[address] [facility] with Dr. Miller. She states that last week on 09/04 she felt the incision pain was improving but on 09/06 the pain returned when she was more active during a photo shoot. The patient states that the pain radiates up her abdomen, back, and down her groin, describing it as pressure and stabbing. The pain is constant with intermittent nausea. She was seen by her DIRECTOR OF SPORTS MEDICINE yesterday (09/10) by Dr. Julieta Urena at [facility] for concerns ofher pain. She was prescribed a Lidocaine patch and advised to possibly follow up for a CT scan. Endorses intermittent low grade fever and constipation, which is controlled with OTC medication. The patient also notes some dysuria and vaginal discharge, but attributed it to a catheter during her admission. Denies any drainage from the wound, bulging at the incision site, vomiting, and chills. She is currently treating the pain with Tylenol, Ibuprofen and Oxycodone when needed at night. Review of Systems Constitutional: Negative for chills. Gastrointestinal: Positive for nausea. Negative for abdominal distention, diarrhea and vomiting. Genitourinary: Positive for dysuria and vaginal discharge. Skin: Pain at incision site All other systems reviewed and are negative. 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 Trigeminal neuralgia DVT Asthma Migraines Raynaud's disease Past Surgical History: Decompression lumbar minimally invasive one level Myringotomy insert tube bilaterally Tonsillectomy section Family History: Father: allergies, anesthesia problem, arthritis, DVT Social History: Presents to emergency department with significant other Never smoker Physical Exam Patient Vitals for the past 24 hrs: BP Temp Temp src Pulse Resp SpO2 09/11/20 1700 118/71 -- -- -- -- 96 % 09/11/20 1530 111/68 -- -- 72 -- 96 % 09/11/20 1515 -- -- -- -- -- 96 % 09/11/20 1505 115/74 -- -- 87 16 96 % 09/11/20 1445 117/77 97.8 ??F (36.6 ??C) Temporal 91 16 99 % Physical Exam Abdominal: General: Alert, no acute distress; well appearing HEENT: Moist mucous membranes. Conjunctiva normal. CV: RRR, no m/r/g, skin warm and well perfused Pulm: CTAB, no wheezes/ronchi/rales. No acute distress, breathing comfortably GI: Soft, nontender, nondistended. No rebound or guarding. Normal bowel sounds; Pfannenstiel incision appears intact, no underlying skin changes. Tender to the right of the incision, no palpable masses MSK: Moving all extremities. No focal areas of edema, erythema, or tenderness Skin: WWP, no rashes, no lower extremity edema, skin color normal, no diaphoresis Emergency Department Course Imaging: Abd/pelvis CT IV contrast only TRAUMA / AAA IMPRESSION: 1. uterus. No acute changes are otherwise evident in the abdomen or pelvis. No fluid collection, pelvic hematoma or hydronephrosis. Bladder is unremarkable. As read by Radiology. US Pelvic Cmpl wo Transvaginal w Abl/pel Duplex lmt IMPRESSION: Limited exam due to lack of transvaginal imaging. Uterus appears normal in size. No endometrial thickening. Trace amount of free pelvic fluid. As read by Radiology. Laboratory: CBC: WBC: 5.6, HGB: 10.8 (L), PLT: 475 (H) CMP: Albumin: 3.1 (L), o/w WNL (Creatinine: 0.63) UA: Blood: large, Leukocyte Esterase: small, WBC: 6 (H), RBC: 38 (H), Bacteria: few, Mucous: Present, o/w Negative Lipase: 109 HCG Qualitative Blood: 5 Emergency Department Course: Reviewed: I reviewed nursing notes, vitals, past medical history and care everywhere Assessments: 1539 I obtained history and examined the patient as noted above. 1831 I rechecked the patient and explained findings prior to discharge. Interventions: 1645 NS 55 mL IV Bolus 173 Tylenol 1,000 mg PO Disposition: The patient was discharged to home. Impression & Plan Medical Decision Making: Destiney Cassidy is a 29 year old female who had uncomplicated section 08/25 presenting with postoperative pain around the incision site. Patient is otherwise well-appearing, afebrile and vitally stable. She has mild tenderness to the right of the incision which appears intact and without overlying skin changes concerning for incisional infection, dehiscence, cellulitis. She saw her OB yesterday and prescribed lidocaine patch (which patient did not fill 2/2 her insurance not covering this) and a refill of oxycodone for severe/breakthrough pain. There was concern for possible nerve hypersensitivity, abdominal wall MSK issue, or fascial dehiscence at that visit and discussion was had with patient regarding CT scan. Other things considered here included seroma, abscess, UTI/cystitis, ovarian cyst/ruptured cyst amongst others. Lab studies in the ER are largely unremarkable, UA is not concerning for UTI. Very low level of HGC detected, unclear clinical significance for this. After discussion of risks/benefits, with shared decision making, US and CT scans were obtained are otherwise unremarkable. Low suspicion for endometritis given lack of fever, foul smelling discharge, normal inflammatorymarkers. Unclear cause for patient's symptomatology today, but I do not find any life-threatening orsinister etiology at this time. Patient understands the uncertainty of the diagnosis and that certain pathologies can take time to declare itself. Given reassuring work-up thus far, however, with reasonable clinical certainty I feel that the patient is safe to discharge home. I will have her trial 4% lidocaine patches (which are OTC) at the area of pain and have her alternate Tylenol/ibuprofen every 6 hours with oxycodone for breakthrough/severe pain. I will have her follow up with her OB regarding today's visit and workup and she understands and agrees. Patient is in agreement with the above plan and will return for any new or worsening symptoms discussed at bedside. All questions were answered prior to discharge. Diagnosis: ICD-10-CM 1. Postoperative pain G89.18 2. S/P section Z98.891 Discharge Medications: Discharge Medication List as of 09/11/2020 6:55 PM Scribe Disclosure: I, Tracy Bart, am serving as a scribe at 3:35 PM on 09/11/2020 to document services personally performed by Micheal Christensen MD based on my observations and the provider's statements to me. Micheal Christensen MD 09/11/20 2301 DESIGN ENGINEER documented in this encounter Plan of Treatment Not on filedocumented as of this encounter Procedures Procedure Name Priority Date/Time Associated Comments Diagnosis CT ABDOMEN PELVIS W STAT 09/11/2020 4:56 PM Re sults for this CONTRAST HVAC DESIGN ENGINEER procedure are i n the results section. US PELVIS CMPL WO STAT 09/11/2020 4:47 PM Resu lts for this TRANSVAGINAL W ABD/PEL HVAC DESIGN ENGINEER proce dure are in DUPLEX LIMITED the results section. ROUTINE UA WITH STAT 09/11/2020 3:42 PM Result s for this MICROSCOPIC HVAC DESIGN ENGINEER procedure are i n the results section. CBC WITH PLATELETS & STAT 09/11/2020 3:17 PM R esults for this DIFFERENTIAL HVAC DESIGN ENGINEER procedure are i n the results section. LIPASE STAT 09/11/2020 3:17 PM Results f or this HVAC DESIGN ENGINEER procedure are i n the results section. HCG QUANTITATIVE STAT 09/11/2020 3:17 PM Resul ts for this HVAC DESIGN ENGINEER procedure are i n the results section. COMPREHENSIVE STAT 09/11/2020 3:17 PM Results for this METABOLIC PANEL HVAC DESIGN ENGINEER procedure ar e in the results section. documented in this encounter Results Abd/pelvis CT, IV contrast only TRAUMA / AAA (09/11/2020 4:56 PM HVAC DESIGN ENGINEER) Anatomical Region Laterality Modality Abdomen/Pelvis, SUBRAD CT BODY, UMP CT ABDOMEN PELVIS, Computed Tomography RAD CT Specimen (Source) Anatomical Location Collection Method / Collectio n Time Received Time / Laterality Volume Impressions 09/11/2020 5:48 PM HVAC DESIGN ENGINEER IMPRESSION: 1. ?? uterus. No acute changes are otherwise evident in the abdomen or pelvis. No fluid collection, pelvic hematoma or hydronephrosis. Bladder is unremarkable. LD PALACIOS MD Narrative 09/11/2020 5:[address] ABDOMEN AND PELVIS WITH CONTRAST 09/11/2020 4:56 PM CLINICAL HISTORY: Lower abdominal pain, status post uncomplicated 08/25. TECHNIQUE: CT scan of the abdomen and pe lvis was performed following injection of IV contrast. Multiplanar re formats were obtained. Dose reduction techniques were used. CONTRAST: 60mL Isovue-370 COMPARISON: CT abdomen and pelvis 03/23/20. FINDINGS: LOWER CHEST: Normal. HEPATOBILIARY: No significant mass or bi le duct dilatation. No calcified gallstones. PANCREAS: No significant mass, duct dila tation, or inflammatory change. SPLEEN: Normal. ADRENAL GLANDS: Normal. KIDNEYS/BLADDER: No significant mass, st ones, or hydronephrosis. Bladder is unremarkable. BOWEL: No bowel obstruction or diverticu litis. Appendix not visualized. LYMPH NODES: No enlarged abdominal or pe lvic lymph nodes. VASCULATURE: Unremarkable. PELVIC ORGANS: uterus is pres ent with mild fluid distention endometrial cavity. No adnexal mass or s ignificant free pelvic fluid. Rectum is unremarkable. ADDITIONAL FINDINGS: None. MUSCULOSKELETAL: Normal. Procedure Note Ld Palacios MD - 09/11/2020Form atting of this note might be different from the original. CT ABDOMEN AND PELVIS WITH CONTRAST 09/11 4:56 PM CLINICAL HISTORY: Lower abdominal pain, status post uncomplicated 08/25. TECHNIQUE: CT scan of the abdomen and pe lvis was performed following injection of IV contrast. Multiplanar re formats were obtained. Dose reduction techniques were used. CONTRAST: 60mL Isovue-370 COMPARISON: CT abdomen and pelvis 03/23/20. FINDINGS: LOWER CHEST: Normal. HEPATOBILIARY: No significant mass or bi le duct dilatation. No calcified gallstones. PANCREAS: No significant mass, duct dila tation, or inflammatory change. SPLEEN: Normal. ADRENAL GLANDS: Normal. KIDNEYS/BLADDER: No significant mass, st ones, or hydronephrosis. Bladder is unremarkable. BOWEL: No bowel obstruction or diverticu litis. Appendix not visualized. LYMPH NODES: No enlarged abdominal or pe lvic lymph nodes. VASCULATURE: Unremarkable. PELVIC ORGANS: uterus is pres ent with mild fluid distention endometrial cavity. No adnexal mass or s ignificant free pelvic fluid. Rectum is unremarkable. ADDITIONAL FINDINGS: None. MUSCULOSKELETAL: Normal. IMPRESSION: 1. uterus. No acute changes a re otherwise evident in the abdomen or pelvis. No fluid collection, pelvic hematoma or hydronephrosis. Bladder is unremarkable. LD PALACIOS MD Micheal Christensen MD IMG CT ORDERABLES US Pelvis Cmpl wo Transvaginal w Abd/Pel Duplex Lmt (09/11/2020 4:47 PM HVAC DESIGN ENGINEER) Anatomical Region Laterality Modality Abdomen/Pelvis Ultrasound Specimen (Source) Anatomical Location Collection Method / Collectio n Time Received Time / Laterality Volume Impressions 09/11/2020 5:16 PM HVAC DESIGN ENGINEER IMPRESSION: Limited exam due to lack of transvaginal imaging. Uterus appears normal in size. No endometrial t hickening. Trace amount of free pelvic fluid. LD PALACIOS MD Narrative 09/11/2020 5:16 PM HVAC DESIGN ENGINEER US PELVIS COMPLETE WITHOUT TRANSVAGINAL WITH ABD/PEL DUPLEX LIMITED 09/11/2020 4:47 PM HISTORY: Pelvic pain following from beginning of month. Mild spotting persists. FINDINGS: Transabdominal imaging is perf ormed. Patient declined transvaginal imaging. Very limited exam due to difficulty visu alizing pelvic structures on transabdominal imaging and patient decli kush transvaginal imaging. Uterus does not appear significantly enl arged and measures approximately 6 cm transverse dimension. Endometrium measures approximately 0.4 cm and a trace amount of free pelvic fluid noted in the cul-de-sac. Procedure Note Ld Palacios MD - 09/11/2020Form atting of this note might be different from the original. US PELVIS COMPLETE WITHOUT TRANSVAGINAL WITH ABD/PEL DUPLEX LIMITED 09/11/2020 4:47 PM HISTORY: Pelvic pain following from beginning of month. Mild spotting persists. FINDINGS: Transabdominal imaging is perf ormed. Patient declined transvaginal imaging. Very limited exam due to difficulty visu alizing pelvic structures on transabdominal imaging and patient decli kush transvaginal imaging. Uterus does not appear significantly enl arged and measures approximately 6 cm transverse dimension. Endometrium measures approximately 0.4 cm and a trace amount of free pelvic fluid noted in the cul-de-sac. IMPRESSION: Limited exam due to lack of transvaginal imaging. Uterus appears normal in size. No endometrial t hickening. Trace amount of free pelvic fluid. LD PALACIOS MD Tod Pedro MD IMG US ORDERABLES (ABNORMAL) UA with Microscopic (09/11/2020 3:42 PM HVAC DESIGN ENGINEER) [facility] Method Time Signature Color Urine Straw 09/11/2020 [facility] 4:05 PM [facility] Appearance Urine Clear 09/11/2020 [facility] 4:05 PM [facility] Glucose Urine Negative NEG^Negat 09/11/2020 [facility] stephanie mg/dL 4:05 PM [facility] Bilirubin Urine Negative NEG^Negat 09/11/2020 [facility] stephanie 4:05 PM [facility] Ketones Urine Negative NEG^Negat 09/11/2020 [facility] stephanie mg/dL 4:05 PM [facility] Specific [place] 1.013 1.003 - 09/11/2020 [facility] Urine 1.035 4:05 PM [facility] Blood Urine Large (A) NEG^Negat 09/11/2020 [facility] stephanie 4:05 PM [facility] pH Urine 6.5 5.0 - 7.0 09/11/2020 [facility] pH 4:05 PM [facility] Protein Albumin Negative NEG^Negat 09/11/2020 [facility] Urine stephanie mg/dL 4:05 PM [facility] Urobilinogen Normal 0.0 - 2.0 09/11/2020 [facility] mg/dL mg/dL 4:05 PM [facility] Nitrite Urine Negative NEG^Negat 09/11/2020 [facility] stephanie 4:05 PM [facility] Leukocyte Small (A) NEG^Negat 09/11/2020 [facility] Esterase Urine stephanie 4:05 PM [facility] Source Midstream 09/11/2020 [facility] Urine 3:42 PM [facility] WBC Urine 6 (H) 0 - 5 09/11/2020 [facility] /HPF 4:05 PM [facility] RBC Urine 38 (H) 0 - 2 09/11/2020 [facility] /HPF 4:05 PM [facility] Bacteria Urine Few (A) NEG^Negat 09/11/2020 [place] stephanie /HPF 4:05 PM [facility] Squamous <1 0 - 1 09/11/2020 [facility] Epithelial /HPF /HPF 4:05 PM [facility] Mucous Urine Present (A) NEG^Negat 09/11/2020 [place] stephanie /LPF 4:05 PM [facility] Specimen (Source) Anatomical Collection Method Collection Time Re ceived Time Location / / Volume Laterality Examination of 09/11/2020 3:42 09/11/2020 3:52 midstream urine PM HVAC DESIGN ENGINEER PM HVAC DESIGN ENGINEER specimen (procedure) Tod Pedro MD LAB - URINE ORDERABLES Performing Organization Address City/[facility]/ZIP [facility] Phon e Number [facility] [address], [place] [address] [place] [address] [address] [place], [place] [address], [facility] [phone] HCG QUANTitative (blood) (09/11/2020 3:17 PM HVAC DESIGN ENGINEER) athologist Signature HCG Quantitative 5 0 - 5 IU/L 09/11/2020 [place] Serum 4:03 PM [facility] Specimen Anatomical Collection Method Collection Time Receive d Time (Source) Location / / Volume Laterality Blood specimen 09/11/2020 3:17 PM 021 3:36 (specimen) HVAC DESIGN ENGINEER PM HVAC DESIGN ENGINEER Tod Pedro MD LAB - BLOOD ORDERABLES Performing Organization Address City/[facility] Phon e Number [facility] [address], [place] [address] [facility] [address] [place] [address], [facility] [phone] Lipase (09/11/2020 3:17 PM HVAC DESIGN ENGINEER) athologist Signature Lipase 109 73 - 393 09/11/2020 [facility] U/L 4:01 PM [facility] Specimen Anatomical Collection Method Collection Time Receive d Time (Source) Location / / Volume Laterality Blood specimen 09/11/2020 3:17 PM 021 3:36 (specimen) HVAC DESIGN ENGINEER PM [facility] Tod Pedro MD LAB - BLOOD ORDERABLES Performing Organization Address City/State/ZIP Code Phon e Number [place] [address] [address], [place] [address] [facility] [address] [place], [place] [address] [place] [address] (ABNORMAL) Comprehensive metabolic panel (09/11/2020 3:17 PM HVAC DESIGN ENGINEER) athologist Signature Sodium 140 133 - 144 09/11/2020 [place] mmol/L 3:53 PM [facility] Potassium 4.3 3.4 - 5.3 09/11/2020 [place] mmol/L 3:53 PM [facility] Chloride 109 94 - 109 09/11/2020 [place] mmol/L 3:53 PM [facility] Carbon Dioxide 25 20 - 32 09/11/2020 [place] mmol/L 4:01 PM [facility] Anion Gap 6 3 - 14 09/11/2020 [place] mmol/L 4:01 PM [facility] Glucose 91 70 - 99 09/11/2020 [place] mg/dL 4:01 PM [facility] Urea Nitrogen 10 7 - 30 09/11/2020 [place] mg/dL 4:01 PM [facility] Creatinine 0.63 0.52 - 09/11/2020 [place] 1.04 mg/dL 4:01 PM [facility] GFR Estimate >90 >60 09/11/2020 [place] mL/min/{1. 4:01 PM [facility] 73_m2} HOSPITAL Comment: Non GFR Calc Starting 07/06/2018, serum creatinine ba sed estimated GFR (eGFR) will be calculated using the Chronic Kidney Dise ase Epidemiology Collaboration (CKD-EPI) equation. GFR Estimate If >90 >60 mL/min/{1.73_m2} 09/11/2020 4: 01 PM [facility] Comment: GFR Calc Starting 07/06/2018, serum creatinine ba sed estimated GFR (eGFR) will be calculated using the Chronic Kidney Dise ase Epidemiology Collaboration (CKD-EPI) equation. Calcium 8.9 8.5 - 10.1 09/11/2020 4:01 PM [facility] Bilirubin Total 0.5 0.2 - 1.3 mg/dL 09/11/2020 4:01 PM [facility] Albumin 3.1 (L) 3.4 - 5.0 g/dL 09/11/2020 4:01 PM [facility] Protein Total 6.9 6.8 - 8.8 g/dL 09/11/2020 4:01 PM [facility] Alkaline Phosphatase 67 40 - 150 U/L 09/11/2020 4:01 PM [facility] ALT 23 0 - 50 U/L 09/11/2020 4:01 PM [facility] AST 11 0 - 45 U/L 09/11/2020 4:01 PM [facility] Specimen Anatomical Collection Method Collection Time Receive d Time (Source) Location / / Volume Laterality Blood specimen 09/11/2020 3:17 PM 021 3:36 (specimen) HVAC DESIGN ENGINEER PM [facility] Tod Pedro MD LAB - BLOOD ORDERABLES Performing Organization Address City/State/ZIP Code Phon e Number [place] [address] [address] [place] [address] [phone] (ABNORMAL) CBC with platelets differential (09/11/2020 3:17 PM [facility]) [facility] Method Time Signature WBC 5.6 4.0 - 09/11/2020 [facility] 11.0 3:40 PM [facility] 10e9/L [facility] RBC Count 3.75 (L) 3.8 - 5.2 09/11/2020 [facility] 10e12/L 3:40 PM [facility] Hemoglobin 10.8 (L) 11.7 - 09/11/2020 [facility] 15.7 g/dL 3:40 PM [facility] Hematocrit 35.2 35.0 - 09/11/2020 [facility] 47.0 % 3:40 PM [facility] MCV 94 78 - 100 09/11/2020 [facility] fl 3:40 PM [facility] MCH 28.8 26.5 - 09/11/2020 [facility] 33.0 pg 3:40 PM [facility] MCHC 30.7 (L) 31.5 - 09/11/2020 [facility] 36.5 g/dL 3:40 PM [facility] RDW 12.4 10.0 - 09/11/2020 [facility] 15.0 % 3:40 PM [facility] Platelet Count 475 (H) 150 - 450 09/11/2020 [facility] 10e9/L 3:40 PM [facility] Diff Method Automated 09/11/2020 [facility] Method 3:40 PM [facility] % Neutrophils 60.2 % 09/11/2020 [facility] 3:40 PM [facility] % Lymphocytes 24.1 % 09/11/2020 [facility] 3:40 PM [facility] % Monocytes 7.9 % 09/11/2020 [facility] 3:40 PM [facility] % Eosinophils 6.1 % 09/11/2020 [facility] 3:40 PM [facility] % Basophils 1.3 % 09/11/2020 [facility] 3:40 PM [facility] % Immature 0.4 % 09/11/2020 [facility] Granulocytes 3:40 PM [facility] Nucleated RBCs 0 0 /100 09/11/2020 [facility] 3:40 PM [facility] Absolute 3.4 1.6 - 8.3 09/11/2020 [facility] Neutrophil 10e9/L 3:40 PM [facility] Absolute 1.3 0.8 - 5.3 09/11/2020 [facility] Lymphocytes 10e9/L 3:40 PM [facility] Absolute 0.4 0.0 - 1.3 09/11/2020 [facility] Monocytes 10e9/L 3:40 PM [facility] Absolute 0.3 0.0 - 0.7 09/11/2020 [facility] Eosinophils 10e9/L 3:40 PM [facility] Absolute 0.1 0.0 - 0.2 09/11/2020 [facility] Basophils 10e9/L 3:40 PM [facility] Abs Immature 0.0 0 - 0.4 09/11/2020 [place] Granulocytes 10e9/L 3:40 PM [facility] Absolute 0.0 09/11/2020 [place] Nucleated RBC 3:40 PM [facility] Specimen Anatomical Collection Method Collection Time Receive d Time (Source) Location / / Volume Laterality Blood specimen 09/11/2020 3:17 PM 021 3:36 (specimen) HVAC DESIGN ENGINEER PM HVAC DESIGN ENGINEER Tod Pedro MD LAB - BLOOD ORDERABLES Performing Organization Address City/State/ZIP Code Phon e Number M [facility] [address], [place] [address] [facility] [address] [phone] documented in this encounter Visit Diagnoses Diagnosis Postoperative pain Other acute postoperative pain S/P section Other postprocedural status documented in this encounter Administered Medications Inactive Administered Medications - up to 3 most recent administrations Medication Order MAR Action Action Date Dose Rate Site 0.9% sodium chloride BOLUS New Bag 09/11/2020 4:45 PM HVAC DESIGN ENGINEER 55 mLs Intravenous, 100 mL, ONCE, On Thu09/11/20 at 1645, For 1 dose acetaminophen (TYLENOL) tablet 1,000 mg Given 09/11/2020 5:36 PM HVAC DESIGN ENGINEER 1,000 mg 1,000 mg, Oral, EVERY 4 HOURS PRN, fever, Starting on Thu09/11/20 at 1733, Maximum acetaminophen dose from all sources = 75 mg/kg/day not to exceed 4 gram HYDROmorphone (PF) (DILAUDID) injection 0.5 mg 0.5 mg, Intravenous, EVERY 15 MIN PRN, moderate to sev ere pain, Starting on Thu09/11/20 at 1456, For 3 doses, For ordere d IV doses 0.1-4 mg give IV Push undiluted. Administer each 2mg over 2-5 minutes. iopamidol (ISOVUE-370) solution 500 mL Given 09/11/2020 4:44 PM HVAC DESIGN ENGINEER 60 mLs 500 mL, Intravenous, ONCE, On Thu09/11/20 at 1645, For 1 dose Lidocaine (LIDOCARE) Patch/Med Applied 09/11/2020 6:05 PM 2 patches Other (see 4 % Patch 2 patch HVAC DESIGN ENGINEER comments) 2 patch, Transdermal, ONCE, Administer over 12 Hours, On Thu09/11/20 at 1725, For 1 dose, Apply patch(s) to lower abdomen (site of pain). To prevent lidocaine toxicity, patient should be patch free for 12 hrs daily. Patches may be cut to smaller size prior to removing release liner. Reminder: Remove previous patch before applying new patch. NEVER APPLY HEAT OVER PATCH which increases absorption and may lead to local anesthetic toxicity. Do not apply over area where liposomal bupivacaine was injected for 96 hours post injection. documented in this encounter Active and Recently Administered Medications Times are shown in HVAC DESIGN ENGINEER. Scheduled Medication Order 09/09/2020 09/10/2020 09/11/2020 0.9% sodium chloride BOLUS 1500 (Canceled Entry - Provider: Orders Generic Provider - Comment: Automatically canceled at discontinue of medication order) Intravenous, 1,000 mL, ONCE, at 1,000 mL /hr, Administer over 1 Hours, Thu09/11/20 at 1500, For 1 dose 0.9% sodium chloride BOLUS (COMPLETED) 1645 (New Bag - Provider: Anneliese Pandey)1854 (Stopped - Provider: Jaz Ellis, ALDO) Intravenous, 100 mL, ONCE, e 09/11/20 at 1645, For 1 dose iopamidol (ISOVUE-370) solution 500 mL (COMPLETED) 1644 (Given - Provider: Anneliese Pandey) 500 mL, Intravenous, ONCE, e 09/11/20 at 1645, For 1 dose Lidocaine (LIDOCARE) 4 % Patch 2 patch 1725 (Canceled Entry - Provider: Orders Generic Provider - Comment: Automatically canceled at discontinue of medication order)1805 (Patch/Med Applied - Provider: Jaz Ellis, ALDO - Comment: Applied to abdomen. Pt was pumping whe 2 patch, Transdermal, ONCE, Administer o rachel 12 Hours, Thu09/11/20 at 1725, For 1 dose, Apply patch(s) to lower abdomen (site of pain). To prevent lidocaine toxicity, patient should be patch free for 12 n originally ordered which delayed application)2100 (Due: Patch/Med Removed - Provider: Jaz Ellis, ALDO) hrs daily. Patches may be cut to smaller size prior to removing release liner. Reminder: Remove previous patch before applying new patch. NEVER APPLY HEAT OVER PATCH which increases absorption and may l ead to local anesthetic toxicity. Do not apply over area where liposomal bupivacaine was injected for 96 hours post injection. PRN Medication Order 09/09/2020 09/10/2020 09/11/2020 acetaminophen (TYLENOL) tablet 1,000 mg 1736 (Given - Provider: Jaz Ellis RN - Comment: Pain 04/28) 1,000 mg, Oral, EVERY 4 HOURS PRN, fever , Starting Thu09/11/20 at 1733, Maximum acetaminophen dose from all sources = 75 mg/kg/day not to exceed 4 gram HYDROmorphone (PF) (DILAUDID) injection 0.5 mg 0.5 mg, Intravenous, EVERY 15 MIN PRN, m oderate to severe pain, Starting Thu09/11/20 at 1456, For 3 doses, For ordered IV doses 0.1-4 mg give IV Push undiluted. Administer each 2mg over 2-5 minutes. documented in this encounter Additional Health Concerns Assessment Noted Time PHQ-9 Depression Total Score: 2 01/26/2019 11:18 AM CD T documented as of this encounter Care Teams Customer Experience Retail Clerk Relationship Specialty Start Date End Date Justin Loya MD PCP - General Family Practice 02/19/11 [facility] [address] [place] [phone] Silas Santiago MD MD Pain Clinic 11/29/13 [facility] [address] [place], [place] [phone] Silas Dean, Assigned Neuroscience 05/11/20 03/02/21 MD Provider [address] [place] [address] [id number] [address] Silas Jorge MD Assigned Surgical Provider 05/11/[address] [place] [phone] documented as of this encounter
--- OUTSIDE RECORDS SUMMARY | 2022-06-23 17:42 | XMS_ITS | Encounter Summary ---
:1990 Author Organization [place] Address [facility] [place] [address] Care Team Providers Name Role Phone Justin Loya MD Primary Care Provider Silas Santiago MD Unavailable Reason for Visit Reason Onset Date Comments Appointment 08/31/2019 [facility] Encounter Details Date Type Department Care Team Description 08/31/2019 Telephone M Luh Ward and Silas Dean ([facility]) Throat MD Pieter [address] [place] [address] Floor [id number] [place] [id number] (Wo rk) Social History Tobacco Use Types Packs/Day Years Used Date Smoking Tobacco: Never Smokeless Tobacco: Never Alcohol Use Standard Drinks/Week Comments No 0 (1 standard drink = 0.6 oz pure alcoho l) Sex Assigned at Date Recorded Not on file documented as of this encounter Miscellaneous Notes Telephone Encounter - Pavithra Faulkner - 08/31/2019 8:06 AM CST Spoke with patient and scheduled for October [facility]. Patient stated that she also has questions about herprevious appointment with Dr. Dean. Message sent to Marga Han RN. NG MANUFACTURING SET UP TECHNICIAN documented in this encounter Plan of Treatment Not on filedocumented as of this encounter Visit Diagnoses Not on filedocumented in this encounter Additional Health Concerns Assessment Noted Time PHQ-9 Depression Total Score: 2 01/26/2019 11:18 AM CD T documented as of this encounter Care Teams Applications Packager Relationship Specialty Start Date End Date Justin Loya MD PCP - General Family Practice 02/19/11 [facility] [address] [place] [phone] Silas Santiago MD MD Pain Clinic 11/29/13 [facility] [address] [place] [address] documented as of this encounter
--- OUTSIDE RECORDS SUMMARY | 2022-06-23 17:42 | XMS_ITS | Encounter Summary ---
:1990 Author Organization [place] Address [facility] [place] [address] Care Team Providers Name Role Phone Justin Loya MD Primary Care Provider Silas Santiago MD Unavailable Silas Dean MD Unavailable Silas Jorge MD Unavailable Encounter Details Date Type Department Care Team Description 08/11/2020 Travel Social History Tobacco Use Types Packs/Day Years Used Date Smoking Tobacco: Never Smokeless Tobacco: Never Alcohol Use Standard Drinks/Week Comments No 0 (1 standard drink = 0.6 oz pure alcoho l) Sex Assigned at Date Recorded Not on file COVID-19 Exposure Response Date Recorded In the last month, have you been in contact with No / Unsure 08/11/2020 10:00 AM PHOTO TECH someone who was confirmed or suspected to have Coronavirus / COVID-19? documented as of this encounter Plan of Treatment Not on filedocumented as of this encounter Visit Diagnoses Not on filedocumented in this encounter Additional Health Concerns Assessment Noted Time PHQ-9 Depression Total Score: 2 01/26/2019 11:18 AM CD T documented as of this encounter Care Teams Brush Sander Relationship Specialty Start Date End Date Justin Loya MD PCP - General Family Practice 02/19/11 [facility] [address] [place] [phone] Silas Santiago MD MD Pain Clinic 11/29/13 [facility] [address] [place], [place] [phone] Silas Dean, Assigned Neuroscience 05/11/20 03/02/21 MD Provider [address] [place] [address] [id number] [place], [place] [address] Silas Jorge MD Assigned Surgical Provider 05/11/[address] [place] [phone] documented as of this encounter
--- OUTSIDE RECORDS SUMMARY | 2022-06-23 17:42 | XMS_ITS | Encounter Summary ---
:1990 Author Organization [place] Address [address] [facility] [place] [address] Care Team Providers Name Role Phone Justin Loya MD Primary Care Provider Silas Santiago MD Unavailable Silas Dean MD Unavailable Silas Jorge MD Unavailable Reason for Visit Reason Comments Shortness of Breath Encounter Details Date Type Department Care Team Description 08/11/2020 Emergency [facility] [address] [place] [address] Social History Tobacco Use Types Packs/Day Years Used Date Smoking Tobacco: Never Smokeless Tobacco: Never Alcohol Use Standard Drinks/Week Comments No 0 (1 standard drink = 0.6 oz pure alcoho l) Sex Assigned at Date Recorded Not on file COVID-19 Exposure Response Date Recorded In the last month, have you been in contact with No / Unsure 08/11/2020 10:00 AM PUBLIC SERVICES ASSISTANT someone who was confirmed or suspected to have Coronavirus / COVID-19? documented as of this encounter Last Filed Vital Signs Vital Sign Reading Time Taken Comments Blood Pressure 125/80 08/11/2020 10:07 AM PUBLIC SERVICES ASSISTANT Pulse 119 08/11/2020 10:07 AM PUBLIC SERVICES ASSISTANT Temperature 36.8 ??C (98.2 ??F) 08/11/2020 10:07 AM PUBLIC SERVICES ASSISTANT Respiratory Rate 16 08/11/2020 10:07 AM PUBLIC SERVICES ASSISTANT Oxygen Saturation 99% 08/11/2020 10:07 AM PUBLIC SERVICES ASSISTANT Inhaled Oxygen Concentration - - Weight - [...] documented as of this encounter ED Notes Deepali Harrington - 08/11/2020 10:25 AM CST At 1010am, Greeted patient upon arrival, patient stated she had to use the rest room. I told her that with COVID precautions, the bathrooms are unavailable but offered her the bedside commode. She stated I don't want to be in this area with COVID. Offered to get a nurse to talk with her. I left to find her nurse and patient walked out without speaking to nurse or doctor. RN/MD notified IC SERVICES ASSISTANT Yanira Currie RN - 08/11/2020 10:05 AM CST Pt here for SOB and L sided CP. States that she has a history of clots in her neck and is afraid of another clot. Pt is 34 weeks , and seen yesterday and [facility] for premature contractions. Contractions since stopped after receiving IV fluids. Pt A+Ox4, no acute signs of distress. IC SERVICES ASSISTANT Gonzales Arrington MD - 08/11/2020 10:00 AM CST Patient left the emergency department. I did not see this patient. She left before evaluation. Gonzales Arrington MD 08/11/20 1016 IC SERVICES ASSISTANT documented in this encounter Plan of Treatment Not on filedocumented as of this encounter Visit Diagnoses Not on filedocumented in this encounter Additional Health Concerns Assessment Noted Time PHQ-9 Depression Total Score: 2 01/26/2019 11:18 AM CD T documented as of this encounter Care Teams Pouncing Lathe Operator Relationship Specialty Start Date End Date Justin Loya MD PCP - General Family Practice 02/19/11 [facility] [address] [place] [phone] Silas Santiago MD MD Pain Clinic 11/29/13 [facility] [address] [place], [place] [address] Silas Dean, Assigned Neuroscience 05/11/20 03/02/21 MD Provider [address] [place] [address] [id number] [place], [place] [phone] Silas Jorge MD Assigned Surgical Provider 05/11/[address] [place] [id number] documented as of this encounter
--- OUTSIDE RECORDS SUMMARY | 2022-06-23 17:43 | XMS_ITS | Encounter Summary ---
:1990 Author Organization [place] Address [address] [facility] [place] [address] Care Team Providers Name Role Phone Justin Loya MD Primary Care Provider Silas Santiago MD Unavailable Encounter Details Date Type Department Care Team Description 05/04/2019 Travel Social History Tobacco Use Types Packs/Day [...] as of this encounter Care Teams Manager Culture Relationship Specialty Start Date End Date Justin Loya MD PCP - General Family Practice 02/19/11 [facility] [address] [place] [phone] Silas Santiago MD MD Pain Clinic 11/29/13 [facility] [address] [place], [place] [address] documented as of this encounter
--- OUTSIDE RECORDS SUMMARY | 2022-06-23 17:43 | XMS_ITS | Encounter Summary ---
:1990 Author Organization [place] Address [address] [facility] [place] [address] Care Team Providers Name Role Phone Justin Loya MD Primary Care Provider Silas Santiago MD Unavailable Encounter Details Date Type Department Care Team Description 04/30/2019 Travel Social History Tobacco Use Types Packs/Day [...] documented as of this encounter Care Teams Bricklayer Relationship Specialty Start Date End Date Justin Loya MD PCP - General Family Practice 02/19/11 [facility] [address] [place] [phone] Silas Santiago MD MD Pain Clinic 11/29/13 [facility] [address] [place], [place] [phone] documented as of this encounter
--- OUTSIDE RECORDS SUMMARY | 2022-06-23 17:43 | XMS_ITS | Encounter Summary ---
:1990 Author Organization [facility] Address [address] [facility] [place] [address] Care Team Providers Name Role Phone Justin Loya MD Primary Care Provider Silas Santiago MD Unavailable Reason for Visit Reason Comments Abdominal Pain Encounter Details Date Type Department Care Team Description 03/23/2019 Emergency [facility] Mao Larson, Abdominal pain, right [facility] DO lower quadrant [address] [facility] [place] [id number] [id number] [phone] [place] [address] (Wo rk) Social History Tobacco Use Types Packs/Day Years Used Date Smoking Tobacco: Never Smokeless Tobacco: Never Alcohol Use Standard Drinks/Week Comments No 0 (1 standard drink = 0.6 oz pure alcoho l) Sex Assigned at Date Recorded Not on file documented as of this encounter Last Filed Vital Signs Vital Sign Reading Time Taken Comments Blood Pressure 119/62 03/23/2019 9:30 PM CDT Pulse 84 03/23/2019 9:30 PM CDT Temperature 36.6 ??C (97.9 ??F) 03/23/2019 5:22 PM CDT Respiratory Rate 18 03/23/2019 5:22 PM CDT Oxygen Saturation 98% 03/23/2019 9:30 PM CDT Inhaled Oxygen Concentration - - Weight 53.3 kg (117 lb 8.1 oz) 03/23/2019 5:22 PM CDT Height 170.2 cm (5' 7) 03/23/2019 5:22 PM CDT Body Mass Index 18.4 03/23/2019 5:22 PM CDT documented in this encounter Discharge Instructions Discharge InstructionsCaden Vaughan PA-C - 03/23/2019 11:11 PM CDT Discharge Instructions Abdominal Pain Abdominal pain (belly [...] in the amount of wet diapers/urine. Your infant or child starts to have dry mouth [...] directed by your provider today. Before using [id number], ask your provider and make sure to [...] Sig Dispensed Refills Start Date End Date sucralfate (CARAFATE) 1 Take 10 mLs (1 g) by 420 mL 0 08/01/2021 GM/10ML suspension mouth 4 times daily documented as of this encounter ED Notes Fanny Pollack RN - 03/23/2019 5:20 PM CDT Pt reports rt side abd pain starting while she was driving to work this morning. Pt states it was upper but is now RLQ. Pain radiates to her back and groin. Pt denies N/V/D, denies constipation. Pt unable to eat much today due to pain. Pt stated she just finished her period. Mao Larson DO - 03/23/2019 5:18 PM CDT Emergency Department Attending Supervision Note 03/23/2019 6:02 PM I evaluated this patient in conjunction with Caden Vaughan PA-C Briefly, the patient presented with diffuse lower abdominal pain this AM. Since then, worsening, nowlocalized to RLQ. Radiating to groin and right flank. No N/V/D/F/C. No urinary symptoms. Just finished period. Denies abnormal vaginal DC. On my exam, Patient Vitals for the past 24 hrs: BP Temp Temp src Pulse Heart Rate Resp SpO2 Height Weight 03/23/19 2130 119/62 -- -- 84 84 -- 98 % -- -- 03/23/19 1722 103/74 97.9 ??F (36.6 ??C) Oral 78 78 18 99 % 1.702 m (5' 7) 53.3 kg (117 lb 8.1 oz) Constitutional: Vital signs reviewed as above. HENT: Head: No external signs of trauma noted. Eyes: Conjunctivae are normal. Pupils are equal, round, and reactive to light. Cardiovascular: Normal rate, regular rhythm and normal heart sounds. Exam reveals no friction rub. No murmur heard. Pulmonary/Chest: Effort normal and breath sounds normal. No respiratory distress. There are no wheezes. There are no rales. Gastrointestinal: Soft. Bowel sounds normal. There is no distension. There is RLQ tenderness. There is no rebound or guarding. Musculoskeletal: Normal range of motion. Normal Tone No reproducible CVA TTP to palpation Neurological: Patient is alert and oriented to person, place, and time. Skin: Skin is warm and dry. Patient is not diaphoretic Psychiatric: The patient appears calm Results: CT Abdomen Pelvis w Contrast Final Result CONCLUSION: 1. Evidence for constipation without bowel obstruction. 2. Trace nonspecific free fluid in the pelvis usually of gynecologic origin although pelvic organs are unremarkable. US Appendix Only (RLQ) Final Result FINDINGS: The appendix is not identified which would not exclude the possibility of acute appendicitis. Oral and IV enhanced CT recommended for further evaluation. Labs Ordered and Resulted from Time of ED Arrival Up to the Time of Departure from the ED ROUTINE UA WITH MICROSCOPIC - Abnormal; Notable for the following components: Result Value Blood Urine Small (*) All other components within normal limits BASIC METABOLIC PANEL - Abnormal; Notable for the following components: Potassium 3.3 (*) All other components within normal limits CBC WITH PLATELETS DIFFERENTIAL HCG QUALITATIVE URINE ED course: Medications 0.9% sodium chloride BOLUS (0 mLs Intravenous Stopped 03/23/192240) iohexol (OMNIPAQUE) solution 50 mL (50 mLs Oral Given 03/23/192041) diphenhydrAMINE (BENADRYL) capsule 25 mg (25 mg Oral Given 03/23/192133) CT Scan Flush (55 mLs Intravenous Given 03/23/192155) iopamidol (ISOVUE-370) solution 500 mL (59 mLs Intravenous Given 03/23/192155) ED Course as of Mar 24 29ThuMar 23, [address] Larson d/w Caden Vaughan PA-C. Discussed presentation, ddx, exam, workup (patient wishes to avoid CTs), and plan 1806 Dr. Larson' evaluation 2014 I reevaluated the patient and discussed the results so far. Patient does seem to have normal labs but still has persistent right lower quadrant pain and based on the historical change manager the last 12 hours I still think it is reasonable to order the CT scan though because of the patient's thin stature she will need oral and IV contrast. Patient and are in agreement with this. Patient remained stable in the ED. CT scan results are noted above and do not show signs of appendicitis. Patient was discharged in stable condition. Impression: ICD-10-CM 1. Abdominal pain, right lower quadrant R10.31 Mao Larson DO Burns, Bradley Joseph, DO 03/24/19 0030 Mao Larson DO - 03/23/2019 5:18 PM CDT History Chief Complaint: Abdominal Pain HPI Destiney Cassidy is a 28 year old female who presents to the ED for evaluation of abdominal pain. Patient reports onset of diffuse lower abdominal pain that began this AM. She reports that since onset her symptoms have worsened and have started to localize to the RLQ. She describes the pain as dull and radiating to her groin and into her right flank. She notes that her pain is worse with movement andbetter when she is sitting still. She denies ever having this in the past. She denies any fevers, chills, nausea, vomiting, diarrhea, constipation, melena, hematochezia, abnormal vaginal bleeding, discharge, or urinary symptoms. She notes that she just finished her period and denies any chance of . Allergies: Cefzil [Cefprozil] Ciprofloxacin Penicillin G Medications: sucralfate (CARAFATE) 1 GM/10ML suspension Past Medical History: Past Medical History: Diagnosis Date ??? Anxiety ??? Insomnia ??? POTS (postural orthostatic tachycardia syndrome) ??? Thrombosis of left jugular vein ??? Trigeminal neuralgia Patient Active Problem List Diagnosis Date Noted ??? Sensory disorder 10/12/2017 Priority: Medium Past Surgical History: Past Surgical History: Procedure [...] reports that she does not drink alcohol or use drugs. PCP: Justin Loya Review of Systems Constitutional: Negative for chills and fever. Gastrointestinal: Positive for abdominal pain. Negative for blood in stool, diarrhea, nausea and vomiting. Genitourinary: Negative. All other systems reviewed and are negative. Physical Exam Patient Vitals for the past 24 hrs: BP Temp Temp src Pulse Heart Rate Resp SpO2 Height Weight 03/23/19 2130 119/62 -- -- 84 84 -- 98 % -- -- 03/23/19 1722 103/74 97.9 ??F (36.6 ??C) Oral 78 78 18 99 % 1.702 m (5' 7) 53.3 kg (117 lb 8.1 oz) Physical Exam Constitutional: Pleasant. Cooperative. Eyes: Pupils equally round and reactive HENT: Head is normal in appearance. Oropharynx is normal with moist mucus membranes. Cardiovascular: Regular rate and rhythm and without murmurs. Respiratory: Normal respiratory effort, lungs are clear bilaterally. GI: Tenderness to palpation of RLQ. Guarding. Otherwise soft, non-distended. No rebound. Negative psoas sign. Musculoskeletal: No asymmetry of the lower extremities, no tenderness to palpation. Skin: Normal, without rash. Neurologic: Cranial nerves grossly intact, normal cognition, no focal deficits. Alert and oriented x3. Psychiatric: Normal affect. Nursing notes and vital signs reviewed. Emergency Department Course Imaging: CT Abdomen Pelvis w Contrast Final Result CONCLUSION: 1. Evidence for constipation without bowel obstruction. 2. Trace nonspecific free fluid in the pelvis usually of gynecologic origin although pelvic organs are unremarkable. US Appendix Only (RLQ) FINDINGS: The appendix is not identified which would not exclude the possibility of acute appendicitis. Oral and IV enhanced CT recommended for further evaluation. Laboratory: Labs Ordered and Resulted from Time of ED Arrival Up to the Time of Departure from the ED ROUTINE UA WITH MICROSCOPIC - Abnormal; Notable for the following components: Result Value Blood Urine Small (*) All other components within normal limits BASIC METABOLIC PANEL - Abnormal; Notable for the following components: Potassium 3.3 (*) All other components within normal limits CBC WITH PLATELETS DIFFERENTIAL HCG QUALITATIVE URINE Interventions: Medications 0.9% sodium chloride BOLUS (0 mLs Intravenous Stopped 03/23/192240) iohexol (OMNIPAQUE) solution 50 mL (50 mLs Oral Given 03/23/192041) diphenhydrAMINE (BENADRYL) capsule 25 mg (25 mg Oral Given 03/23/192133) CT Scan Flush (55 mLs Intravenous Given 03/23/192155) iopamidol (ISOVUE-370) solution 500 mL (59 mLs Intravenous Given 03/23/192155) Emergency Department Course: Past medical records, nursing notes, and vitals reviewed. I performed an exam of the patient and obtained history, as documented above. I ordered the above the labs and RLQ ultrasound. Ordered the above interventions. Discussed results with patient. I ordered the above CT. Discussed results with the patient. Patient discharged home. Impression & Plan Medical Decision Making: Destiney Cassidy is a 28 year old female who presents to the ED for evaluation of abdominal pain that began this morning. Pain was initially diffuse, however began to localize to the RLQ. Pain is worsewith movement. No fevers. See HPI for additional details. On initial evaluation, patient's vital signs are within normal limits. No tachycardia and patient is afebrile. Physical exam is notable for tenderness to palpation of RLQ as well as guarding. No rebound tenderness elicited. Negative psoas sign.Differential is broad and includes appendicitis, diverticulitis, ovarian cyst, ovarian torsion, UTI,constipation, among others. The above work-up was obtained. Initially patient was hesitant to proceed with CT given radiation exposure. Given patient had thin body habitus, ultrasound of the RLQ was suggested and patient was agreeable to this. Lab work was also obtained at that time. No evidence of leukocytosis and no evidence of UTI. Unfortunately, ultrasound of the RLQ could not visualize the appendix and thus could not rule out acute appendicitis. Initially ordered transabdominal ultrasound of pelvis as well, however patient did not have a full bladder and thus this could not proceed. Patient declined transvaginal ultrasound. Thus, oral and IV enhanced CT was recommended. This was discussed with the patient. After extensive discussion, patient elected to proceed with a CT of the abdomen pelviswith oral and IV contrast. Patient had some concern about prior discomfort with IV contrast, thus Benadryl was provided. CT was then obtained and revealed evidence for constipation without bowel obstruction. No evidence of appendicitis. No evidence of gynecologic cause for her symptoms. No evidence of diverticulitis. Discussed with patient the unclear etiology of her symptoms. Constipation is certainly a possibility. Patient additionally did note a history of constipation issues in the past. Discussed with patient the importance of close follow-up with her PCP should her symptoms persist. She can use Tylenol/ibuprofen for her symptoms at home. Discussed reasons to return. All questions answered. The patient was discharged home in stable condition. Diagnosis: ICD-10-CM 1. Abdominal pain, right lower quadrant R10.31 Discharge Medications: Medication List There are no discharge medications for this visit. Caden Vaughan PA-C [facility] ED March 24, 2019 Caden Vaughan PA-C 03/24/19 0035 Mao Larson DO 03/24/19 0036 documented in this encounter Plan of Treatment Not on filedocumented as of this encounter Procedures Procedure Name Priority Date/Time Associated Comments Diagnosis CT ABDOMEN PELVIS W STAT 03/23/2019 10:07 Resu lts for this CONTRAST PM CDT procedure are i n the results section. US APPENDIX ONLY STAT 03/23/2019 7:08 PM Resul ts for this CDT procedure are i n the results section. CBC WITH PLATELETS & STAT 03/23/2019 6:26 PM R esults for this DIFFERENTIAL CDT procedure are i n the results section. BASIC METABOLIC PANEL STAT 03/23/2019 6:26 PM Results for this CDT procedure are i n the results section. HCG QUALITATIVE URINE Routine 03/23/2019 5:38 PM Results for this CDT procedure are i n the results section. ROUTINE UA WITH STAT 03/23/2019 5:38 PM Result s for this MICROSCOPIC CDT procedure are i n the results section. documented in this encounter Results CT Abdomen Pelvis w Contrast (03/23/2019 10:07 PM CDT) Anatomical Region Laterality Modality Abdomen/Pelvis, SUBRAD CT BODY, UMP CT ABDOMEN PELVIS, Computed Tomography RAD CT Specimen (Source) Anatomical Collection Method Collection Time Re ceived Time Location / / Volume Laterality 03/23/2019 9:54 PM CDT Impressions 03/23/2019 11:00 PM CDT CONCLUSION: 1. ??Evidence for constipation without b owel obstruction. 2. ??Trace nonspecific free fluid in the pelvis usually of gynecologic origin although pelvic organs are unremarkable. Narrative 03/23/2019 11:00 PM CDT EXAM: CT ABDOMEN PELVIS W CONTRAST LOCATION: [facility] DATE/TIME: 03/23/2019 9:54 PM INDICATION: Right lower quadrant abdomin al pain COMPARISON: 11/01/2016 TECHNIQUE: Helical enhanced thin-section CT scan of the abdomen and pelvis was performed following injection of IV contrast. Multiplanar reformats were obtained. Dose reduction techniques were used. CONTRAST: 59mL Isovue-370 FINDINGS: LUNG BASES: Negative. ABDOMEN: Liver, gallbladder, spleen, adr enal glands, kidneys and pancreas unremarkable. No aneurysm. No adenopathy. PELVIS: Trace nonspecific free fluid. Mo derate stool throughout the colon without bowel obstruction. Normal retrocecal appendix. Pelvic organs otherwise unremarkable. MUSCULOSKELETAL: Transitional vertebra r ight aspect lumbosacral junction. Procedure Note Aamir Solomon MD - 03/23/2019F ormatting of this note might be different from the original. EXAM: CT ABDOMEN PELVIS W CONTRAST LOCATION: [facility] DATE/TIME: 03/23/2019 9:54 PM INDICATION: Right lower quadrant abdomin al pain COMPARISON: 11/01/2016 TECHNIQUE: Helical enhanced thin-section CT scan of the abdomen and pelvis was performed following injection of IV contrast. Multiplanar reformats were obtained. Dose reduction techniques were used. CONTRAST: 59mL Isovue-370 FINDINGS: LUNG BASES: Negative. ABDOMEN: Liver, gallbladder, spleen, adr enal glands, kidneys and pancreas unremarkable. No aneurysm. No adenopathy. PELVIS: Trace nonspecific free fluid. Mo derate stool throughout the colon without bowel obstruction. Normal retrocecal appendix. Pelvic organs otherwise unremarkable. MUSCULOSKELETAL: Transitional vertebra r ight aspect lumbosacral junction. CONCLUSION: 1. Evidence for constipation without bow el obstruction. 2. Trace nonspecific free fluid in the p ximena usually of gynecologic origin although pelvic organs are unremarkable. Caden Vaughan PA-C IM CT ORDERABLES US Appendix Only (RLQ) (03/23/2019 7:08 PM CDT) Anatomical Region Laterality Modality Abdomen/Pelvis Ultrasound Specimen (Source) Anatomical Collection Method Collection Time Re ceived Time Location / / Volume Laterality 03/23/2019 6:52 PM CDT Narrative 03/23/2019 7:10 PM CDT EXAM: US APPENDIX ONLY LOCATION: [facility] DATE/TIME: 03/23/2019 6:52 PM INDICATION: Right lower quadrant abdomin al pain COMPARISON: None TECHNIQUE: Compression ultrasound of the right lower quadrant was performed. FINDINGS: The appendix is not identified which would not exclude the possibility of acute appendicitis. Oral and IV enhanced CT recommended for further evaluation. Procedure Note Aamir Solomon MD - 03/23/2019F ormatting of this note might be different from the original. EXAM: US APPENDIX ONLY LOCATION: [facility] DATE/TIME: 03/23/2019 6:52 PM INDICATION: Right lower quadrant abdomin al pain COMPARISON: None TECHNIQUE: Compression ultrasound of the right lower quadrant was performed. FINDINGS: The appendix is not identified which would not exclude the possibility of acute appendicitis. Oral and IV enhanced CT recommended for further evaluation. Caden CADET-C [facility] US ORDERABLES (ABNORMAL) Basic metabolic panel (03/23/2019 6:26 PM CDT) athologist Signature Sodium 138 133 - 144 03/23/2019 [place] mmol/L 6:51 PM [facility] Potassium 3.3 (L) 3.4 - 5.3 03/23/2019 [place] mmol/L 6:51 PM [facility] Chloride 105 94 - 109 03/23/2019 [place] mmol/L 6:51 PM [facility] Carbon Dioxide 29 20 - 32 03/23/2019 [facility] mmol/L 6:58 PM [facility] Anion Gap 4 3 - 14 03/23/2019 [place] mmol/L 6:58 PM [facility] Glucose 77 70 - 99 03/23/2019 [place] mg/dL 6:58 PM [facility] Urea Nitrogen 12 7 - 30 03/23/2019 [place] mg/dL 6:58 PM [facility] Creatinine 0.69 0.52 - 03/23/2019 [place] 1.04 mg/dL 6:58 PM [facility] GFR Estimate >90 >60 03/23/2019 [place] mL/min/{1. 6:58 PM [facility] 73_m2} HOSPITAL Comment: Non GFR Calc Starting 07/06/2018, serum creatinine ba sed estimated GFR (eGFR) will be calculated using the Chronic Kidney Dise [facility] Epidemiology Collaboration (CKD-EPI) equation. GFR Estimate If >90 >60 mL/min/{1.73_m2} 03/23/2019 6: 58 PM [facility] Comment: GFR Calc Starting 07/06/2018, serum creatinine ba sed estimated GFR (eGFR) will be calculated using the Chronic Kidney Dise [facility] Epidemiology Collaboration (CKD-EPI) equation. Calcium 9.1 8.5 - 10.1 mg/dL 03/23/2019 6:58 PM [facility] Specimen Anatomical Collection Method Collection Time Receive d Time (Source) Location / / Volume Laterality Blood specimen 03/23/2019 6:26 PM 019 6:37 (specimen) CDT PM CDT Caden Vaughan PA-C LAB - BLOOD ORDERABLES Performing Organization Address City/State/ZIP Code Phon e Number [place] [address] [address] [place], [place] [address] [phone] CBC with platelets differential (03/23/2019 6:26 PM CDT) [facility] Method Time Signature WBC 5.4 4.0 - 03/23/2019 [facility] 11.0 6:43 PM [facility] 10e9/L [facility] RBC Count 4.54 3.8 - 5.2 03/23/2019 [facility] 10e12/L 6:43 PM [facility] Hemoglobin 13.8 11.7 - 03/23/2019 [facility] 15.7 g/dL 6:43 PM [facility] Hematocrit 41.6 35.0 - 03/23/2019 [facility] 47.0 % 6:43 PM [facility] MCV 92 78 - 100 03/23/2019 [facility] fl 6:43 PM [facility] MCH 30.4 26.5 - 03/23/2019 [facility] 33.0 pg 6:43 PM [facility] MCHC 33.2 31.5 - 03/23/2019 [facility] 36.5 g/dL 6:43 PM [facility] RDW 11.8 10.0 - 03/23/2019 [facility] 15.0 % 6:43 PM [facility] Platelet Count 217 150 - 450 03/23/2019 [facility] 10e9/L 6:43 PM [facility] Diff Method Automated 03/23/2019 [facility] Method 6:43 PM [facility] % Neutrophils 58.5 % 03/23/2019 [facility] 6:43 PM [facility] % Lymphocytes 27.5 % 03/23/2019 [facility] 6:43 PM [facility] % Monocytes 9.6 % 03/23/2019 [facility] 6:43 PM [facility] % Eosinophils 3.1 % 03/23/2019 [facility] 6:43 PM [facility] % Basophils 1.1 % 03/23/2019 [facility] 6:43 PM [facility] % Immature 0.2 % 03/23/2019 [facility] Granulocytes 6:43 PM [facility] Nucleated RBCs 0 0 /100 03/23/2019 [facility] 6:43 PM [facility] Absolute 3.2 1.6 - 8.3 03/23/2019 [facility] Neutrophil 10e9/L 6:43 PM [facility] Absolute 1.5 0.8 - 5.3 03/23/2019 [facility] Lymphocytes 10e9/L 6:43 PM [facility] Absolute 0.5 0.0 - 1.3 03/23/2019 [facility] Monocytes 10e9/L 6:43 PM [facility] Absolute 0.2 0.0 - 0.7 03/23/2019 [facility] Eosinophils 10e9/L 6:43 PM [facility] Absolute 0.1 0.0 - 0.2 03/23/2019 [place] Basophils 10e9/L 6:43 PM [facility] Abs Immature 0.0 0 - 0.4 03/23/2019 [place] Granulocytes 10e9/L 6:43 PM [facility] Absolute 0.0 03/23/2019 [place] Nucleated RBC 6:43 PM [facility] Specimen Anatomical Collection Method Collection Time Receive d Time (Source) Location / / Volume Laterality Blood specimen 03/23/2019 6:26 PM 019 6:37 (specimen) CDT PM CDT Caden Vaughan PA-C LAB - BLOOD ORDERABLES Performing Organization Address City/[facility]/ZIP [facility] Phon e Number M [facility] [address] [place], [place] [address] [place] [address] [address] [place] [phone], [facility] [phone] HCG qualitative urine (03/23/2019 5:38 PM CDT) P athologist Signature HCG Qual Urine Negative NEG^Negati 03/23/2019 [place] ve 8:00 PM [facility] Comment: This test is for screening purposes. ??R esults should be interpreted along with the clinical picture. ??Confirmation te sting is available if warranted by ordering [id number], HCG Quantitative Pregna ncy. Specimen Anatomical Collection Method Collection Time Receive d Time (Source) Location / / Volume Laterality 03/23/2019 5:38 PM 9 5:54 CDT PM CDT Mao Larson DO LAB - URINE ORDERABLES Performing Organization Address City/[facility]/ZIP Code Phon e Number M [facility] [address] [place], [place] [address] [facility] [address] [place] [id number] [phone], [facility] [phone] (ABNORMAL) UA with Microscopic (03/23/2019 5:38 PM CDT) Patholo gist Method Time Signature Color Urine Straw 03/23/2019 [facility] 6:04 PM [facility] Appearance Urine Clear 03/23/2019 [facility] 6:04 PM [facility] Glucose Urine Negative NEG^Negat 03/23/2019 [place] stephanie mg/dL 6:04 PM [facility] Bilirubin Urine Negative NEG^Negat 03/23/2019 [facility] stephanie 6:04 PM [facility] Ketones Urine Negative NEG^Negat 03/23/2019 [place] stephanie mg/dL 6:04 PM [facility] Specific Downs 1.007 1.003 - 03/23/2019 [place] Urine 1.035 6:04 PM [facility] Blood Urine Small (A) NEG^Negat 03/23/2019 [place] stephanie 6:04 PM [facility] pH Urine 5.5 5.0 - 7.0 03/23/2019 [place] pH 6:04 PM [facility] Protein Albumin Negative NEG^Negat 03/23/2019 [place] Urine stephanie mg/dL 6:04 PM [facility] Urobilinogen Normal 0.0 - 2.0 03/23/2019 [place] mg/dL mg/dL 6:04 PM [facility] Nitrite Urine Negative NEG^Negat 03/23/2019 [place] stephanie 6:04 PM [facility] Leukocyte Negative NEG^Negat 03/23/2019 [place] Esterase Urine stephanie 6:04 PM [facility] Source Midstream 03/23/2019 [place] Urine 5:54 PM [facility] WBC Urine <1 0 - 5 03/23/2019 [facility] /HPF 6:04 PM [facility] RBC Urine 0 0 - 2 03/23/2019 [facility] /HPF 6:04 PM [facility] Squamous 1 0 - 1 03/23/2019 [facility] Epithelial /HPF /HPF 6:04 PM [facility] Specimen (Source) Anatomical Collection Method Collection Time Re ceived Time Location / / Volume Laterality Examination of 03/23/2019 5:38 03/23/2019 5:54 midstream urine PM [facility] specimen (procedure) Mao Larson DO LAB - URINE ORDERABLES Performing Organization Address City/State/ZIP Code Phon e Number [facility] [address] [place], [place] [address] [facility] [address] [place], [place] [address] 7, [facility] [phone] documented in this encounter Visit Diagnoses Diagnosis Abdominal pain, right lower quadrant documented in this encounter Administered Medications Inactive Administered Medications - up to 3 most recent administrations Medication Order MAR Action Action Date Dose Rate Site 0.9% sodium chloride BOLUS New Bag 03/23/2019 8:40 PM CDT 1,000 mLs 1000 mL/hr Intravenous, 1,000 mL, ONCE, at 1,000 mL/hr, Administer over 1 Hours, On Thu03/23/19 at 1809, For [address] Scan Flush Given 03/23/2019 9:56 PM CDT 55 mLs Intravenous, 100 mL, ONCE, On Thu03/23/19 at 2156, For 1 dose, This entry is for use by Radiology to intermittently used as a flush in patients receiving a CT scan. diphenhydrAMINE (BENADRYL) capsule 25 mg Given 03/23/2019 9:34 PM CDT 25 mg 25 mg, Oral, ONCE, On Thu03/23/19 at 2130, For 1 dose iohexol (OMNIPAQUE) solution 50 mL Given 03/23/2019 8:42 PM CDT 50 mLs 50 mL, Oral, ONCE, On Thu03/23/19 at 2035, For 1 dose, Dilute 50 mL contrast into 600 mL of water/juice/soda to make a total of 650 mL. Give age appropriate amount 0-6 mo: 100 mL total fluid 6 mo-1 yr: 150 mL total fluid 1-3 yrs: 200 mL total fluid 3-6 yrs: 250 mL total fluid 6-8 yrs: 300 mL total fluid 8-10 yrs: 400 mL total fluid 10-16 yrs: 500 mL total fluid 16 yrs- adult: 650 mL total fluid iopamidol (ISOVUE-370) solution 500 mL Given 03/23/2019 9:56 PM CDT 59 mLs 500 mL, Intravenous, ONCE, On Thu03/23/19 at 2156, For 1 dose documented in this encounter Active and Recently Administered Medications Times are shown in CDT. Scheduled Medication Order 03/21/2019 03/22/2019 03/23/2019 0.9% sodium chloride BOLUS (COMPLETED) 2039 (New Bag - Provider: Jenni Navarro RN)2240 (Stopped - Provider: Jenni Navarro RN) Intravenous, 1,000 mL, ONCE, at 1,000 mL /hr, Administer over 1 Hours, Thu03/23/19 at 1809, For [address] Scan Flush (COMPLETED) 2155 ( Given - Provider: Yvonne Gama) Intravenous, 100 mL, ONCE, Thu03/23/19 at 2155, For 1 dose, This entry is for use by Radiology to intermittently used as a flush in patients receiving a CT scan. diphenhydrAMINE (BENADRYL) capsule 25 mg (COMPLETED) 2133 (Given - Provider: Jenni Navarro RN - Comment: barcode scanner not working) 25 mg, Oral, ONCE, Thu03/23/19 at 2129, For 1 dose iohexol (OMNIPAQUE) solution 50 mL (COMPLETED) 2041 (Given - Provider: Jenni Navarro RN) 50 mL, Oral, ONCE, Thu03/23/19 at 2034, F or 1 dose, Dilute 50 mL contrast into 600 mL of water/juice/soda to make a total of 650 mL. 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 [address] [place] [address] Silas Santiago MD MD Pain Clinic 11/29/13 [facility] [address] [place] [address] documented as of this encounter
--- OUTSIDE RECORDS SUMMARY | 2022-06-23 17:43 | XMS_ITS | Encounter Summary ---
:1990 Author Organization [place] Address [address] [facility] [place] [address] Care Team Providers Name Role Phone Justin Loya MD Primary Care Provider Silas Santiago MD Unavailable Encounter Details Date Type Department Care Team Description 08/03/2018 Travel Social History Tobacco Use Types Packs/Day [...] Assessment Noted Time PHQ-9 Depression Total Score: 13 01/12/2018 7:12 AM CD T documented as of this encounter Care Teams Technical Sales Director Relationship Specialty Start Date End Date Justin Loya MD PCP - General Family Practice 02/19/11 [facility] [address] [place] [phone] Silas Santiago MD MD Pain Clinic 11/29/13 [facility] [address] [place], [place] [address] documented as of this encounter
--- OUTSIDE RECORDS SUMMARY | 2022-06-23 17:43 | XMS_ITS | Encounter Summary ---
:1990 Author Organization [place] Address [address] [facility] [place] [address] Care Team Providers Name Role Phone Justin Loya MD Primary Care Provider Silas Santiago MD Unavailable Stewart Munguia RN Unavailable Reason for Referral Diagnostic Imaging Ultrasound - Closed Specialty Diagnoses / Procedures Referred By Contact Refer red To Contact Radiology. Diagnoses History of DVT (deep vein thrombosis) Johan Pollard MD Rh Ultrasound Procedures US Extremity Upper Venous lt [place] [facility] [address] [place], [place] [phone] [place] [address] Referral ID Status Reason Start Date Expiration Date Visits Requ ested Visits Authorized [id number] Closed 06/18/2018 06/18/2019 1 1 ER GUIDANCE COUNSELOR Reason for Visit Diagnostic Imaging Ultrasound - Closed Specialty Diagnoses / Procedures Referred By Contact Refer red To Contact Radiology. Diagnoses History of DVT (deep vein thrombosis) Johan Pollard MD Rh Ultrasound Procedures US Extremity Upper Venous lt [place] [facility] [address] [place], [place] [phone] [place] [address] Referral ID Status Reason Start Date Expiration Date Visits Requ ested Visits Authorized [id number] Closed 06/18/2018 06/18/2019 1 1 Encounter Details Date Type Department Care Team Description 06/18/2018 Hospital Encounter [facility] Johan Pollard of DVT (deep [facility] MD Ah[place] vein thrombosis) [address] [place] [facility] [place], [place] [address] [phone] [facility] [address] [place] [address] Social History Tobacco Use Types Packs/Day Years Used Date Smoking Tobacco: Never Smokeless Tobacco: Never Alcohol Use Standard Drinks/Week Comments No 0 (1 standard drink = 0.6 oz pure alcoho l) Sex Assigned at Date Recorded Not on file documented as of this encounter Medications at Time of Discharge Medication Sig Dispensed Refills Start Date End Date GABAPENTIN PO Take 300 mg by mouth 0 0 08/17/2018 At Bedtime hydrOXYzine (ATARAX) 25 Take 1-2 tablets 60 tablet 1 201708/17/2018 MG tablet (25-50 mg) by mouth every 6 hours as needed for itching IBUPROFEN PO Take 400 mg by mouth 0 every 4 hours as needed for moderate pain LORAZEPAM PO Take 1 mg by mouth 0 07/21 as needed for anxiety MAGNESIUM OXIDE PO Take by mouth daily 0 08/17/2018 methocarbamol (ROBAXIN) Take 2 tablets 30 tablet 0 09/11/19 18 08/17/2018 500 MG tablet (1,000 mg) by mouth 3 times daily as needed Probiotic Product 0 019 (PROBIOTIC ADVANCED PO) VITAMIN D, Take 5,000 Units by 0 08/17 CHOLECALCIFEROL, PO mouth daily documented as of this encounter Plan of Treatment Not on filedocumented as of this encounter Procedures Procedure Name Priority Date/Time Associated Diagnosis Comme nts US UPPER EXTREMITY Routine 06/18/2018 7:05 PM History of DVT ( deep Results for this VENOUS DUPLEX LEFT CAREER GUIDANCE COUNSELOR vein thrombosis) proce dure are in the results section. documented in this encounter Results US Extremity Upper Venous lt (06/18/2018 7:05 PM CAREER GUIDANCE COUNSELOR) Anatomical Region Laterality Modality Extremity Ultrasound Specimen (Source) Anatomical Location Collection Method / Collectio n Time Received Time / Laterality Volume Impressions 06/18/2018 7:15 PM CAREER GUIDANCE COUNSELOR IMPRESSION : No evidence for left upper extremity deep vein thrombus. KIA HELTON MD Narrative 06/18/2018 7:15 PM CAREER GUIDANCE COUNSELOR US UPPER EXTREMITY VENOUS DUPLEX LEFT 06/18/2018 7:05 PM HISTORY: r/o dvt; History of DVT (deep v ein thrombosis) TECHNIQUE: Venous Doppler US of the uppe r extremity.? Color flow and spectral Doppler with waveform analysis performed. COMPARISON: None. FINDINGS: No deep vein thrombus demonstr ated in the visualized portions of left jugular, subclavian, ax illary, cephalic, basilic or brachial veins. Results telephoned to [facility] on-call physician covering for Dr. Pollard at 7:00 PM. Procedure Note Kia Helton MD - 06/18/2018For matting of this note might be different from the original. US UPPER EXTREMITY VENOUS DUPLEX LEFT 7:05 PM HISTORY: r/o dvt; History of DVT (deep v ein thrombosis) TECHNIQUE: Venous Doppler US of the uppe r extremity.? Color flow and spectral Doppler with waveform analysis performed. COMPARISON: None. FINDINGS: No deep vein thrombus demonstr ated in the visualized portions of left jugular, subclavian, ax illary, cephalic, basilic or brachial veins. Results telephoned to [facility] on-call physician covering for Dr. Pollard at 7:00 PM. IMPRESSION : No evidence for left upper extremity deep vein thrombus. 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
--- OUTSIDE RECORDS SUMMARY | 2022-06-23 17:43 | XMS_ITS | Encounter Summary ---
:1990 Author Organization [place] Address [address] [facility] [place] [address] Care Team Providers Name Role Phone Justin Loya MD Primary Care Provider Silas Santiago MD Unavailable Stewart Munguia RN Unavailable Reason for Visit Reason Comments Consult [facility] NEW - CONSULT Encounter Details Date Type Department Care Team Description 01/11/2018 [facility] Visit [facility] Toni Morin Sensory disorder [address] [facility] [address] Adam MD (Primary Dx) 3rd Floor [address] [address] [facility] [phone] [place], [place] [phone] (Wo rk) Social History Tobacco Use Types Packs/Day Years Used Date Smoking Tobacco: Never Smokeless Tobacco: Never Alcohol Use Standard Drinks/Week Comments No 0 (1 standard drink = 0.6 oz pure alcoho l) Sex Assigned at Date Recorded Not on file documented as of this encounter Last Filed Vital Signs Vital Sign Reading Time Taken Comments Blood Pressure 127/84 01/11/2018 7:07 AM CDT Pulse 72 01/11/2018 7:07 AM CDT Temperature 36.7 ??C (98 ??F) 01/11/2018 7:07 AM CDT Respiratory Rate - - Oxygen Saturation 98% 01/11/2018 7:07 AM CDT Inhaled Oxygen Concentration - - Weight 50.4 kg (111 lb 1.6 oz) 01/11/2018 7:07 AM CDT Height 171.5 cm (5' 7.5) 01/11/2018 7:07 AM CDT Body Mass Index 17.14 01/11/2018 7:07 AM CDT documented in this encounter Progress Notes Toni Erwin MD - 01/11/2018 7:45 AM CDT Progress Note - Neurosurgery Clinic REASON FOR VISIT: low back and left leg pain, with burning in bilateral feet and abdomen/pelvis HISTORY OF PRESENT ILLNESS: Ms. Cassidy is a 27 year old female with hx previous left L5-S1 laminotomy for S1 radiculopathy who presents now with symptoms of recurrent left leg pain as well as burning in bilateral feet, feet twitching, and burning in abdomen and pelvis since ~08/2017. She states these symptoms come and go, and are worse with sitting and with standing, better with lying. The burning sensation is described most often in the plantar aspects of both feet and also throughout the reproductive areas and low back below the SI joints. She has tried homeopathic remedies, and also gabapentin, which has not helped. She has been told she has SI joint weakness, but the low back burning that she feels is different that the SI joint pain that she also experiences. 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 No recent trauma. No nausea/vomiting, fever, chills, headaches. ROS: 10 point ROS of systems including Constitutional, Eyes, Respiratory, Cardiovascular, Gastroenterology, Genitourinary, Integumentary, Muscularskeletal, Psychiatric were all negative except for pertinent positives noted in my HPI. PHYSICAL EXAM: Alert and oriented to person, place, and time. NAD. PERRL, EOMI. Face symmetric. Tongue midline. Uvula midline and palate elevated symmetrically. Strong eye closure, jaw clench, and cheek puff. Trapezii and SCM muscles 5/5 bilaterally. No pronator drift. BUE and BLE 5/5 throughout. Reflexes 2+ throughout. Sensation intact and symmetric to light touch throughout. Normal FNF, normal HTS test. Gait is normal. IMAGES: MRI lumbar spine (01/11/18) - mild L5-S1 foraminal stenosis causing a small L5-S1 foraminal disc protrusion ASSESSMENT: 27 year old female with recurrence of left S1 radiculopathy, but also with symptoms of burning in multiple distributions on her body that do not seem related to the left S1 radiculopathy. She did obtain cervical and thoracic MRIs at [facility] but we do not have them in our system, although per report these were read as not clinically significant for any abnormality. MRI brain has not demonstrated any demyelinating plaques. PLAN: - Can consider XR lumbar spine flexion/exention if symptoms continue and or worsen. - Otherwise okay to follow up on a prn basis. - Was counseled to please contact us with any questions or concerns in the future. The patient was discussed with neurosurgery faculty, and agrees with the above. CHELY BUTCHER MD, PGY-3 I saw the patient with the resident. I have reviewed and edited the resident note and agree with theplan of care. Toni Erwin MD documented in this encounter Nursing Notes Monika Oh CMA - 01/11/2018 7:45 AM CDT Chief Complaint Patient presents with ??? Consult [facility] NEW - CONSULT Monika Oh MA documented in this encounter Plan of Treatment Not on filedocumented as of this encounter Visit Diagnoses Diagnosis Sensory disorder - Primary Disturbance of skin sensation documented in this encounter Additional Health Concerns Assessment Noted Time PHQ-9 Depression Total Score: 13 01/12/2018 7:12 AM CD T documented as of this encounter Care Teams Business Job Titles Relationship Specialty Start Date End Date Justin Loya MD PCP - General Family Practice 02/19/11 [facility] [address] [place] [phone] Silas Santiago MD MD Pain Clinic 11/29/13 [facility] [address] [facility] [place] [address] Stewart Munguia, RN Registered Nurse Neurology 10/13/17 07/30/18 documented as of this encounter
--- OUTSIDE RECORDS SUMMARY | 2022-06-23 17:43 | XMS_ITS | Encounter Summary ---
:1990 Author Organization [place] Address [address] [facility] [address] Care Team Providers Name Role Phone Justin Loya MD Primary Care Provider Silas Santiago MD Unavailable Reason for Visit Reason Comments Throat Pain Encounter Details Date Type Department Care Team Description 04/30/2019 - Emergency [facility] Dario Romo MD Laryngitis; 05/01/2019 [facility] Emergency Dep t [facility] Bronchitis [address] [place], [place] [address] [id number] [place], [place] [id number] (Wo rk) Social History Tobacco Use Types Packs/Day Years Used Date Smoking Tobacco: Never Smokeless Tobacco: Never Alcohol Use Standard Drinks/Week Comments No 0 (1 standard drink = 0.6 oz pure alcoho l) Sex Assigned at Date Recorded Not on file documented as of this encounter Last Filed Vital Signs Vital Sign Reading Time Taken Comments Blood Pressure 125/74 05/01/2019 12:50 AM CDT Pulse 79 05/01/2019 12:50 AM CDT Temperature 36.3 ??C (97.4 ??F) 04/30/2019 11:48 PM CDT Respiratory Rate 15 04/30/2019 11:48 PM CDT Oxygen Saturation 98% 05/01/2019 12:55 AM CDT Inhaled Oxygen Concentration - - Weight - - Height - - Body Mass Index - - documented in this encounter Discharge Instructions AttachmentsThe following attachments cannot be sent through Care Everywhere. Bronchitis, Antibiotic Treatment (Adult) (Kenyan)Laryngitis (Kenyan)documented in this encounter Medications at Time of Discharge Medication Sig Dispensed Refills Start Date End Date azithromycin (ZITHROMAX Two tablets on the 6 tablet 0 04/1905/06/2019 Z-PARVEEN) 250 MG tablet first day, then one tablet daily for the next 4 days ibuprofen (ADVIL/MOTRIN) Take 3 tablets (600 30 tablet 0 08/01/2021 200 MG tablet mg) by mouth every 8 hours as needed for mild pain sucralfate (CARAFATE) 1 Take 10 mLs (1 g) by 420 mL 0 08/01/2021 GM/10ML suspension mouth 4 times daily documented as of this encounter ED Notes Johan Cintron RN - 04/30/2019 11:47 PM CDT Pt states throat pain for several days. 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 ABCs intact GCS 15 Dario Romo MD - 04/30/2019 11:42 PM CDT History Chief Complaint: Throat Pain HPI Destiney Cassidy is a 28 year old female who presents with patient's had 10 days of sore throat. Shepoints to the lower neck region just at the sternal notch. She is handling her secretions well by her report but it does hurt to swallow she states. She denied any sensation of pain at the collateral region of the laryngeal region. Her does state that her voice is somewhat changed and sounds like laryngitis. The patient admits to this as well. She has had no fever. She was treated for thrush and is still being treated for that. She has a history of oral thrush. She is using nystatin swish and swallow. Allergies: Allergies Allergen Reactions ??? Cefprozil Hives [...] - Sneezing. Seasonal Allergies - Sneezing. Medications: azithromycin (ZITHROMAX Z-PARVEEN) 250 MG tablet ibuprofen (ADVIL/MOTRIN) 200 MG tablet sucralfate (CARAFATE) 1 GM/10ML suspension Problem List: Patient Active Problem List Diagnosis [...] ??? Drug use: No Review of Systems See HPI all other systems negative Physical Exam First Vitals: BP: 126/79 Pulse: 79 Heart Rate: 74 Temp: 97.4 ??F (36.3 ??C) Resp: 15 SpO2: 98 % Physical Exam GEN: alert HEAD: atraumatic EYES: pupils reactive, extraocular muscles intact, conjunctivae normal ENT: TMs normal as are EACs; nares patent; normal posterior pharynx and oral mucosa NECK: no posterior midline tenderness, no meningeal signs, trachea midline; tender at sternal notch.No laryngeal anterior neck tenderness. RESPIRATORY: no tachypnea, breath sounds clear to auscultation CVS: normal S1/S2, no murmurs/rubs/gallops ABDOMEN: soft, nontender, no masses or organomegaly, no rebound, positive bowel sounds MUSCULOSKELETAL: no deformities SKIN: warm and dry, no acute rashes or ulceration, no erythema NEURO: GCS 15, cranial nerves intact. Motor and sensory- good tone; normal gait and coordination LYMPH: mild anterior cervical bilaterally lymphadenopathy PSYCHE: anxious Emergency Department Course No results found for this or any previous visit (from the past 24 hour(s)). Impression & Plan Medical Decision Making: The patient is a 28-year-old female presents to the ED with reports of sore throat for 11 days. She pointed to the sternal notch as to where it is sore. Posterior pharynx appeared normal. Glossal surface appears consistent with partially treated thrush. The patient has mild laryngitis. Differential includes partially treated thrush which may be affecting her esophageal region at the sternal notch. Other possibilities include tracheitis which probably is virally related problem possibly subclinicallybacterial. Deep space infection also would be a consideration in the differential. We discussed work-up and treatment. The patient was adamantly refusing advanced imaging studies such as CT with contras t that she had a CT done recently in the ER for abdominal pain and nothing was found then. We discussed direct laryngoscopy as a method to evaluate the supra- glottal region although that is not where she is localizing her symptoms are so I am not sure this would be helpful. We did discuss that she could have a viral infection such as mono causing sore throat and her continued symptoms but she refused a mono test. We also discussed a low-grade bacterial tracheitis or viraltracheitis causing her symptoms of pain there in addition to possible thrush still affecting that region, but she refused diagnostic interventions and preferred to try an antibiotic. I recommended thatshe continue the nystatin as she has been doing as directed. Will start a Z-Parveen at this time. This is been going on now for 10 to 11 days. I am going to recommend close follow-up with her PCP. She states that she is been prone to developing thrush in the past but I am not sure if she is had an immune evaluation and work-up done yet. That would be a consideration although she is and monogamousto her and does not sound like she has HIV risk factors by her report. Endoscopy would be a consideration if this persists. . I am recommending follow-up with her PCP this week Diagnosis: 1. Odynophagia 2. Laryngitis Disposition: discharged to home Discharge Medications: Discharge Medication List as of 05/01/2019 1:04 AM START taking these medications Details azithromycin (ZITHROMAX Z-PARVEEN) 250 MG tablet Two tablets on the first day, then one tablet daily forthe next 4 days, Disp-6 tablet, R-0, Local Print ibuprofen (ADVIL/MOTRIN) 200 MG tablet Take 3 tablets (600 mg) by mouth every 8 hours as needed for mild pain, Disp-30 tablet, R-0, Local Print Dario Romo MD 04/30/2019 [facility] Dario Romo MD 05/01/192114 Dario Romo MD 05/01/192120 documented in this encounter Plan of Treatment Not on filedocumented as of this encounter Visit Diagnoses Diagnosis Laryngitis Acute laryngitis, without mention of obs truction Bronchitis Bronchitis, not specified as acute or ch ronic documented in this encounter Administered Medications Inactive Administered Medications - up to 3 most recent administrations Medication Order MAR Action Action Date Dose Rate Site ibuprofen (ADVIL/MOTRIN) tablet Given 05/01/2019 12:15 AM CDT 60 0 mg 600 mg 600 mg, Oral, ONCE, On 05/01/19 at 0013, For 1 dose documented in this encounter Active and Recently Administered Medications Times are shown in CDT. 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
--- OUTSIDE RECORDS SUMMARY | 2022-06-23 17:43 | XMS_ITS | Encounter Summary ---
:1990 Author Organization [place] Address [address] [facility] [place] [address] Care Team Providers Name Role Phone Justin Loya MD Primary Care Provider Silas Santiago MD Unavailable Encounter Details Date Type Department Care Team Description 11/17/2018 Travel Social History Tobacco Use Types Packs/Day [...] documented as of this encounter Care Teams Real Estate Rep Relationship Specialty Start Date End Date Justin Loya MD PCP - General Family Practice 02/19/11 [facility] [address] [place] [phone] Silas Santiago MD MD Pain Clinic 11/29/13 [facility] [address] [place], [place] [phone] documented as of this encounter
--- OUTSIDE RECORDS SUMMARY | 2022-06-23 17:43 | XMS_ITS | Encounter Summary ---
:1990 Author Organization [facility] Address [address] [facility] [place] [address] Care Team Providers Name Role Phone Justin Loya MD Primary Care Provider Silas Santiago MD Unavailable Stewart Munguia RN Unavailable Reason for Visit Reason Comments Abdominal Pain Encounter Details Date Type Department Care Team Description 06/17/[address] [facility] Mook Chaudhry A bdominal pain, [facility] Emergency Dep t generalized [address] [facility] [place] [id number] [id number] [facility] [phone] [place], [place] [address] (Wo rk) Social History Tobacco Use Types Packs/Day Years Used Date Smoking Tobacco: Never Smokeless Tobacco: Never Alcohol Use Standard Drinks/Week Comments No 0 (1 standard drink = 0.6 oz pure alcoho l) Sex Assigned at Date Recorded Not on file documented as of this encounter Last Filed Vital Signs Vital Sign Reading Time Taken Comments Blood Pressure 122/73 06/17/2018 6:00 PM NEURORADIOLOGIST Pulse - - Temperature 37 ??C (98.6 ??F) 06/17/2018 4:56 PM NEURORADIOLOGIST Respiratory Rate 18 06/17/2018 4:56 PM NEURORADIOLOGIST Oxygen Saturation 99% 06/17/2018 4:56 PM NEURORADIOLOGIST Inhaled Oxygen Concentration - - Weight - - Height - - Body Mass Index - - documented in this encounter Discharge Instructions Discharge InstructionsMook Chaudhry MD - 06/17/2018 6:44 PM NEURORADIOLOGIST Discharge Instructions Abdominal Pain Abdominal pain (belly [...] to the Emergency Department right away if: ??? You get an oral temperature above 102oF or as directed by your provider. ??? You have blood in your stools. This may be bright red or appear as black, tarry stools. ??? You keep vomiting (throwing up) or cannot drink liquids. ??? You see blood when you vomit. ??? You cannot have a bowel movement or you cannot pass gas. ??? Your stomach gets bloated or bigger. ??? Your skin or the whites of your eyes look yellow. ??? You faint. ??? You have bloody, frequent or painful urination (peeing). ??? You have new symptoms or anything that worries you. CHILDREN: Return to the Emergency Department right away if your child has any of the above-listed symptoms or the following: ??? Pushes your hand away or screams/cries when his/her belly is touched. ??? You notice your child is very fussy or weak. ??? Your child is very tired and is too tired to eat or drink. ??? Your child is dehydrated. Signs of dehydration can be: o Significant change in the amount of wet diapers/urine. o Your or child starts to have dry mouth and lips, or no saliva (spit) or tears. WOMEN: Return to the Emergency Department right away if you have any of the above-listed symptoms or the following: ??? You have bleeding, leaking fluid or passing tissue from the vagina. ??? You have worse pain or cramping, or pain in your shoulder or back. ??? You have vomiting that will not stop. ??? You have a temperature of 100oF or more. ??? Your baby is not moving as much as usual. ??? You faint. ??? You get a bad headache with or without eye problems and abdominal pain. ??? You have a seizure. ??? You have unusual discharge from your vagina and abdominal pain. Abdominal pain is pretty common during . Your pain may or may not be related to your . You should follow-up closely with your OB provider so they can evaluate you and your baby. Untilyou follow-up with your regular provider, do the following: ??? Avoid sex and do not put anything in your vagina. ??? Drink clear fluids. ??? Only take medications approved by your provider. [...] directed by your provider today. Before using [id number], ask your provider and make sure to [...] if there is anything that worries you. ORADIOLOGIST documented in this encounter Medications at Time [...] documented as of this encounter ED Notes Cam Miramontes RN - 06/17/2018 6:25 PM CST Patient denies wanting Fluids ORADIOLOGIST Sybil Hammonds RN - 06/17/2018 4:53 PM CST Patient presents to ED due to abd pain. States, having nausea, vomiting that developed on Thursday, seen at and told it was gastroenteritis. Now c/o cramping LLQ . Abdomen feels tight Last BM 3 days ago, pale color and very small amount Hx constipation ORADIOLOGIST Mook Chaudhry MD - 06/17/2018 4:51 PM CST History Chief Complaint: Abdominal Pain HPI Destiney Cassidy is a 27 year old female who presents with abdominal pain. The patient states that she has recent been evaluated for elevated AST/ALT levels. She has been asymptomatic during this evaluation and says that her LFTs were trending downwards. Thursday night, now approximately 5 days ago, thepatient became ill with nausea and vomiting. She notes that she had several sick contacts with similar symptoms at the home where she was staying. She was not having diarrhea with this nor abdominal pain initially but she had several days of mostly retching with some vomiting during this time. Over the past several days her vomiting has resolved but her nausea has remained and the patient describes experiencing a diffuse abdominal discomfort. She describes a twisting pain in his mid abdomen that is near constantly present. She has been experiencing constipation as well. The patient went to a radiology appointment to have an upper quadrant ultrasound obtained for her ongoing liver evaluation. She was noted to have elevations in her LFTs today but not has high as they have been previously. Given her ongoing pain however she was referred here for evaluation. The patient denies back pain or dysuria.She otherwise has not had any fevers, chills, difficulty urinating, or flank pain. Her last bowel movement was 3 days ago and was only a small amount. Allergies: Cefzil [Cefprozil] Ciprofloxacin Penicillin G Medications: Gabapentin Atarax Ibuprofen Lorazepam Magnesium oxide Past Medical History: Anxiety DVT Insomnia Sensory disorder Past Surgical History: Decompression lumbar minimally invasive Myringotomy Tonsillectomy [place] teeth extraction Family History: History reviewed. No pertinent family history. Social History: Smoking Status: Never Smoker Alcohol Use: No Patient presents with . Marital Status: Review of Systems Constitutional: Negative for chills and fever. Gastrointestinal: Positive for abdominal pain, constipation, nausea and vomiting. Negative for abdominal distention and diarrhea. Genitourinary: Negative for difficulty urinating, dysuria and flank pain. All other systems reviewed and are negative. Physical Exam Patient Vitals for the past 24 hrs: BP Temp Temp src Heart Rate Resp SpO2 06/17/18 1800 122/73 - - - - - 06/17/18 1656 129/70 98.6 ??F (37 ??C) Temporal 99 18 99 % Physical Exam Constitutional: Alert, attentive HENT: Nose: Nose normal. Mouth/Throat: Oropharynx is clear, mucous membranes are moist Eyes: EOM are normal. CV: regular rate and rhythm; no murmurs, rubs or gallups Chest: Effort normal and breath sounds normal. GI: There is no appreciable tenderness. No distension. No guarding. Normal bowel sounds MSK: Normal range of motion. Neurological: Alert, attentive Skin: Skin is warm and dry. Emergency Department Course Imaging: Radiographic findings were communicated with the patient who voiced understanding of the findings. X-ray Abdomen, 2 views: Nonobstructed bowel gas pattern. Result per radiology. Laboratory: CBC: WNL (WBC 5.0, HGB 14.0, PLT 254) CMP: K 3.3 (L), BUN 5 (L), ALT 120 (H), AST 68 (H), o/w WNL (Creatinine 0.59) Lipase: 105 ISTAT HCG: <5.0 Emergency Department Course: Past medical records, nursing notes, and vitals reviewed. 1730: I performed an exam of the patient and obtained history, as documented above. IV inserted and blood drawn. The patient was sent for a X-ray while in the emergency department, findings above. 1838: I rechecked the patient. Findings and plan explained to the Patient. Patient discharged home with instructions regarding supportive care, medications, and reasons to return. The importance of close follow-up was reviewed. Impression & Plan Medical Decision Making: This is a very pleasant 27-year-old female presents for evaluation after recent vomiting illness with vague crampy abdominal pain. She has a benign abdominal exam without focal tenderness. She is not actively vomiting here. She does have slight elevation in AST and ALT but had a normal right upper quadrant ultrasound earlier today. She requested imaging and I recommended x-ray as she has very low suspicion for appendicitis or other acute process, and she would also like to avoid this imaging. This is unremarkable as are the rest of her labs. I recommended primary care follow-up for recheck in 2-3 days and emphasized the unclear nature of her symptoms. This could represent secondary IBS related to h er recent illness. She should return immediately for worse pain, fever, or any other concerns. Diagnosis: ICD-10-CM 1. Abdominal pain, generalized R10.84 Mor Doyle 06/17/2018 [facility] EMERGENCY DEPARTMENT IMor am serving as a scribe at 5:30 PM on 06/17/2018 to document services personally performed by Mook Chaudhry MD based on my observations and the provider's statements to me. Mook Chaudhry MD 06/18/18 0046 ORADIOLOGIST documented in this encounter Plan of Treatment Not on filedocumented as of this encounter Procedures Procedure Name Priority Date/Time Associated Comments Diagnosis XR ABDOMEN 2 VIEWS STAT 06/17/2018 6:16 PM Res ults for this NEURORADIOLOGIST procedure are i n the results section. ISTAT HCG QUANTITATIVE Routine 06/17/2018 5:31 PM Results for this POCT NEURORADIOLOGIST procedure are in the results section. LIPASE STAT 06/17/2018 5:26 PM Results f or this NEURORADIOLOGIST procedure are i n the results section. COMPREHENSIVE STAT 06/17/2018 5:26 PM Results for this METABOLIC PANEL NEURORADIOLOGIST procedure ar e in the results section. CBC WITH PLATELETS STAT 06/17/2018 5:26 PM Res ults for this NEURORADIOLOGIST procedure are i n the results section. documented in this encounter Results Abdomen XR, 2 vw, flat and upright (06/17/2018 6:16 PM NEURORADIOLOGIST) Anatomical Region Laterality Modality Abdomen/Pelvis Digital Radiography Specimen (Source) Anatomical Location Collection Method / Collectio n Time Received Time / Laterality Volume Impressions 06/17/2018 7:44 PM NEURORADIOLOGIST IMPRESSION: Nonobstructed bowel gas pattern. MOOK GUY MD Narrative 06/17/2018 7:44 PM NEURORADIOLOGIST ABDOMEN TWO-THREE VIEW ??06/17/2018 6:16 PM HISTORY: Abdominal pain, vomiting. COMPARISON: July 26, 2017. FINDINGS: Large amount of stool. No free air. There are no air filled distended loops of small bowel. The colo n is not distended. The lung bases are unremarkable. Procedure Note Mook Guy MD - 06/17/2018Fo rmatting of this note might be different from the original. ABDOMEN TWO-THREE VIEW 06/17/2018 6:16 P M HISTORY: Abdominal pain, vomiting. COMPARISON: July 26, 2017. FINDINGS: Large amount of stool. No free air. There are no air filled distended loops of small bowel. The colo n is not distended. The lung bases are unremarkable. IMPRESSION: Nonobstructed bowel gas evin meredith. MOOK GUY MD Mook Chaudhry MD IMG DIAGNOSTIC IMAGING ORDER ANGELES ISTAT HCG Quantitative POCT (06/17/2018 5:31 PM NEURORADIOLOGIST) athologist Signature HCG Quantitative <5.0 <5.0 IU/L 06/17/2018 POINT OF CAR E Serum 5:43 PM NEURORADIOLOGIST TEST, HANDHELD METER Specimen Anatomical Collection Method Collection Time Receive d Time (Source) Location / / Volume Laterality 06/17/2018 5:31 PM 8 5:43 NEURORADIOLOGIST PM NEURORADIOLOGIST Mook Chaudhry MD LAB - BEAKER POCT Performing Organization Address City/State/ZIP Code Phon e Number [facility] POINT OF CARE TEST, HANDHELD METER POINT OF CARE TEST, HANDHELD METER Lipase (06/17/2018 5:26 PM NEURORADIOLOGIST) athologist Signature Lipase 105 73 - 393 06/17/2018 [facility] U/L 5:54 PM NEURORADIOLOGIST HOSPITAL Specimen Anatomical Collection Method Collection Time Receive d Time (Source) Location / / Volume Laterality Blood specimen 06/17/2018 5:26 PM 018 5:27 (specimen) NEURORADIOLOGIST PM NEURORADIOLOGIST Gonzales Arrington MD LAB - BLOOD ORDERABLES Performing Organization Address City/State/ZIP Code Phon e Number M [facility] [address] [place], [place] [address] [facility] [address] [place], [place] [address] [place] [address] (ABNORMAL) Comprehensive metabolic panel (06/17/2018 5:26 PM [facility]) P athologist Signature Sodium 140 133 - 144 06/17/2018 [place] mmol/L 5:54 PM [facility] Potassium 3.3 (L) 3.4 - 5.3 06/17/2018 [facility] mmol/L 5:54 PM [facility] Chloride 105 94 - 109 06/17/2018 [facility] mmol/L 5:54 PM [facility] Carbon Dioxide 30 20 - 32 06/17/2018 [place] mmol/L 5:54 PM [facility] Anion Gap 5 3 - 14 06/17/2018 [place] mmol/L 5:54 PM [facility] Glucose 93 70 - 99 06/17/2018 [place] mg/dL 5:54 PM [facility] Urea Nitrogen 5 (L) 7 - 30 06/17/2018 [facility] mg/dL 5:54 PM [facility] Creatinine 0.59 0.52 - 06/17/2018 [facility] 1.04 mg/dL 5:54 PM [facility] GFR Estimate >90 >60 06/17/2018 [place] mL/min/1.7 5:[address] Comment: Non GFR Calc GFR Estimate If >90 >60 mL/min/1.7m2 06/17/2018 5:54 P M [facility] Comment: GFR Calc Calcium 8.5 8.5 - 10.1 06/17/2018 5:54 PM [place] [facility] [place] mg/dL [facility] Bilirubin Total 0.8 0.2 - 1.3 mg/dL 06/17/2018 5:54 PM [facility] Albumin 3.8 3.4 - 5.0 g/dL 06/17/2018 5:54 PM [facility] Protein Total 7.2 6.8 - 8.8 g/dL 06/17/2018 5:54 PM [facility] Alkaline Phosphatase 48 40 - 150 U/L 06/17/2018 5:54 PM [facility] ALT 120 (H) 0 - 50 U/L 06/17/2018 5:54 PM [facility] AST 68 (H) 0 - 45 U/L 06/17/2018 5:54 PM [facility] Specimen Anatomical Collection Method Collection Time Receive d Time (Source) Location / / Volume Laterality Blood specimen 06/17/2018 5:26 PM 018 5:27 (specimen) NEURORADIOLOGIST PM NEURORADIOLOGIST Gonzales Arrington MD LAB - BLOOD ORDERABLES Performing Organization Address City/State/ZIP Code Phon e Number M [place] [address] [place], [place] [address] [phone] CBC (platelets, no diff) (06/17/2018 5:26 PM NEURORADIOLOGIST) athologist Signature WBC 5.0 4.0 - 11.0 06/17/2018 [facility] 10e9/L 5:37 PM [facility] RBC Count 4.66 3.8 - 5.2 06/17/2018 [facility] 10e12/L 5:37 PM [facility] Hemoglobin 14.0 11.7 - 06/17/2018 [facility] 15.7 g/dL 5:37 PM [facility] Hematocrit 42.4 35.0 - 06/17/2018 [facility] 47.0 % 5:37 PM [facility] MCV 91 78 - 100 06/17/2018 [facility] fl 5:37 PM [facility] MCH 30.0 26.5 - 06/17/2018 [facility] 33.0 pg 5:37 PM [facility] MCHC 33.0 31.5 - 06/17/2018 [facility] 36.5 g/dL 5:37 PM [facility] RDW 11.5 10.0 - 06/17/2018 [facility] 15.0 % 5:37 PM [facility] Platelet Count 254 150 - 450 06/17/2018 [facility] 10e9/L 5:37 PM [facility] Specimen Anatomical Collection Method Collection Time Receive d Time (Source) Location / / Volume Laterality Blood specimen 06/17/2018 5:26 PM 11/29/2 018 5:27 (specimen) NEURORADIOLOGIST PM NEURORADIOLOGIST Gonzales Arrington MD LAB - BLOOD ORDERABLES Performing Organization Address City/State/ZIP Code Phon e Number M [facility] [address] [place] [address] [facility] [address] [place], [place] [address] [facility] [phone] documented in this encounter Visit Diagnoses Diagnosis Abdominal pain, generalized documented in this encounter Active and Recently Administered Medications Times are shown in NEURORADIOLOGIST. Scheduled Medication Order 06/15/2018 06/16/2018 06/17/2018 0.9% sodium chloride BOLUS 1745 (Canceled Entry - Provider: Orders Generic Provider - Comment: Automatically canceled at discontinue of medication order) Intravenous, 1,000 mL, ONCE, Janna 06/17/18 at 1745, For 1 dose documented in this encounter Additional Health Concerns Assessment Noted Time PHQ-9 Depression Total Score: 13 01/12/2018 7:12 AM CD T documented as of this encounter Care Teams Shirt Line Operator Relationship Specialty Start Date End Date Justin Loya MD PCP - General Family Practice 02/19/11 [facility] [address] [place] [phone] Silas Santiago MD MD Pain Clinic 11/29/13 [facility] [address] [place] [address] Stewart Munguia, RN Registered Nurse Neurology 10/13/17 07/30/18 documented as of this encounter
--- OUTSIDE RECORDS SUMMARY | 2022-06-23 17:43 | XMS_ITS | Encounter Summary ---
:1990 Author Organization [place] Address Formerly [facility] [place] [address] Care Team Providers Name Role Phone Justin Loya MD Primary Care Provider Silas Santiago MD Unavailable Reason for Visit Reason Comments Facial Pain Encounter Details Date Type Department Care Team Description 11/17/2018 Emergency [facility] Vanessa Leo MD Facial pain, acute [facility] Emergency Dep t [address] [facility] [address] [place] [address] [place] [address] Social History Tobacco Use Types Packs/Day Years Used Date Smoking Tobacco: Never Smokeless Tobacco: Never Alcohol Use Standard Drinks/Week Comments No 0 (1 standard drink = 0.6 oz pure alcoho l) Sex Assigned at Date Recorded Not on file documented as of this encounter Last Filed Vital Signs Vital Sign Reading Time Taken Comments Blood Pressure 125/79 11/17/2018 10:26 AM CDT Pulse 71 11/17/2018 10:00 AM CDT Temperature 36.6 ??C (97.9 ??F) 11/17/2018 8:09 AM CDT Respiratory Rate 16 11/17/2018 10:26 AM CDT Oxygen Saturation 99% 11/17/2018 10:26 AM CDT Inhaled Oxygen Concentration - - Weight 52.2 kg (115 lb) 11/17/2018 8:09 AM CDT Height 170.2 cm (5' 7) 11/17/2018 8:09 AM CDT Body Mass Index 18.01 11/17/2018 8:09 AM CDT documented in this encounter Discharge Instructions Discharge InstructionsNikky Leo MD - 11/17/2018 10:09 AM CDT Follow-up with neurology if pain continues. Take motrin and tylenol for pain. documented in this encounter ED Notes Verito Huerta RN - 11/17/2018 8:08 AM CDT Massage on Thursday with right sided facial and head pain/numbness since the massage. Patient alert and oriented x3. Airway, breathing and circulation intact. Nikky Leo MD - 11/17/2018 8:00 AM CDT History Chief Complaint: Facial Pain HPI Destiney Cassidy is a 27 year old female with a history of anxiety who presents for evaluation of facial pain. Three days ago, she had a massage that involved a lot of manipulations to her neck and temples. Since then, she has had a constant dull ache on the right side of her face with occasional shocks of severity. At home, she has been treating the pain with ice and ibuprofen which does relieve her symptoms, but because of the persistence of pain, she decided to present. Here, she reports the majority of her pain is in her face, but it does start in her neck. She has a history of trigeminal neuralgia and states that today's pain is like that, but much worse. She has never had a massage before,so she has nothing to compare that too. She has no other physical complaints, and she denies any chance of . Of note, she has a history of a venous clot in her neck, but that resolved and she is not anticoagulated. Allergies: Cefzil Ciprofloxacin Penicillins Medications: The patient is currently on no regular medications. Past Medical History: Anxiety DVT POTS Past Surgical History: Lumbar decompression Myringotomy Tonsillectomy Oral surgery Family History: No past pertinent family history. Social History: Marital Status: [2] Negative for tobacco use. Negative for alcohol use. Review of Systems HENT: Facial pain Musculoskeletal: Positive for neck pain (right). All other systems reviewed and are negative. Physical Exam Patient Vitals for the past 24 hrs: BP Temp Temp src Pulse Heart Rate Resp SpO2 Height Weight 11/17/18 1000 127/73 -- -- 71 -- -- 98 % -- -- 11/17/18 0915 119/54 -- -- 99 -- -- 98 % -- -- 11/17/18 0900 115/72 -- -- -- -- -- -- -- -- 11/17/18 0815 112/75 -- -- 92 -- -- (!) 85 % -- -- 11/17/18 0809 132/79 97.9 ??F (36.6 ??C) Oral -- 87 16 100 % 1.702 m (5' 7) 52.2 kg (115 lb) Physical Exam General: Patient is alert and interactive when I enter the room Head: The scalp, face, and head appear normal, PERRL Eyes: Conjunctivae are normal ENT: The nose is normal Pinnae are normal External acoustic canals are normal Tenderness to right TMJ, no trismus Neck: Trachea midline CV: Pulses are normal. Resp: No respiratory distress Abdomen: Soft, non-tender, non-distended Musc: Normal muscular tone No major joint effusions No asymmetric leg swelling Skin: No rash or lesions noted Neuro: Speech is normal and fluent. Face is symmetric. Moving all extremities well. Cranial nerves intact. No ataxia. Psych: Awake. Alert. Normal affect. Anxious mood. Appropriate interactions. Emergency Department Course Imaging: Radiographic findings were communicated with the patient who voiced understanding of the findings. US Upper Extremity Venous Duplex, bilateral: No evidence of DVT, as per radiology. Interventions: 839 Toradol, 15 mg, IM injection Emergency Department Course: Nursing notes and vitals reviewed. (810) I performed an exam of the patient as documented above. ?? Medicine administered as documented above. ?? (906) I rechecked the patient and discussed the results of her workup thus far. At this point, she reports her pain has not resolved much, but she still is hesitant about having a CT scan. She would like to be evaluated for a clot however, and thus was sent for an upper extremity ultrasound while in the emergency department, findings above. ?? (1022) I rechecked and updated the patient. She is amenable to discharge. Findings and plan explained to the Patient. Patient discharged home with instructions regarding supportive care, medications, and reasons to return. The importance of close follow-up was reviewed. ?? I personally reviewed the imaging results with the Patient and answered all related questions prior to discharge. Impression & Plan Medical Decision Making: Destiney Cassidy is a 27 year old female who presents with facial pain. She describes pain around her trigeminal nerve that radiates down into her lower jaw and her neck. She is neurologically intact and is afebrile. The main concern for her would be that she may have a dissection, given that she had a massage recently that was reportedly possibly aggressive. However, she did not want any IV contrast. 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 Patient was given Toradol with minimal improvement of her pain. Again, her pain seems very localized to the trigeminal nerve so it seems less likely to be a dissection, however she knows that I cannot rule this out without further imaging. At this point,patient just wanted to go home. She will take her muscle relaxant at home, as well as ibuprofen and Tylenol. She requested something further for pain control, however I referred her to follow-up with her primary as well as a neurologist if she continues to have this pain. Diagnosis: ICD-10-CM 1. Facial pain, acute R51 Disposition: discharged to home Discharge Medications: There were on discharge medications. Scribe Disclosure: I, Chuyita Erickson, am serving as a scribe on 11/17/2018 at 8:11 AM to personally document services performed by Nikky Leo MD based on my observations and the provider's statements to me. Chuyita Erickson 11/17/2018 [facility] Nikky Leo MD 11/18/182022 documented in this encounter Plan of Treatment Not on filedocumented as of this encounter Procedures Procedure Name Priority Date/Time Associated Diagnosis Comme nts US UPPER EXTREMITY STAT 11/17/2018 10:01 AM Re sults for this VENOUS DUPLEX CDT procedure are in BILATERAL the results section. documented in this encounter Results US Upper Extremity Venous Duplex Bilat (11/17/2018 10:01 AM CDT) Anatomical Region Laterality Modality Arm Ultrasound Specimen (Source) Anatomical Location Collection Method / Collectio n Time Received Time / Laterality Volume Impressions 11/17/2018 10:08 AM CDT IMPRESSION: No evidence of DVT. SYLVESTER PALACIOS MD Narrative 11/17/2018 10:08 AM CDT ULTRASOUND BILATERAL UPPER EXTREMITY VENOUS DUPLEX ??11/17/2018 10:01 AM HISTORY: Assess for DVT of neck. Neck pa in, history of IJ thrombosis. FINDINGS: The deep veins in the right an d left upper extremity are compressible throughout. The deep veins demonstrate normal venous augmentation, waveforms and color Dopple r flow. The subclavian and internal jugular veins demonstrate lele l color Doppler flow without intraluminal thrombus. No evidence of alexander perficial thrombophlebitis Procedure Note Sylvester Palacios MD - 11/17/2018Form atting of this note might be different from the original. ULTRASOUND BILATERAL UPPER EXTREMITY LIZ OUS DUPLEX 11/17/2018 10:01 AM HISTORY: Assess for DVT of neck. Neck pa in, history of IJ thrombosis. FINDINGS: The deep veins in the right an d left upper extremity are compressible throughout. The deep veins demonstrate normal venous augmentation, waveforms and color Dopple r flow. The subclavian and internal jugular veins demonstrate lele l color Doppler flow without intraluminal thrombus. No evidence of alexander perficial thrombophlebitis IMPRESSION: No evidence of DVT. SYLVESTER PALACIOS MD Nikky Leo MD [facility] [place] documented in this encounter Visit Diagnoses Diagnosis Facial pain, acute Headache documented in this encounter Administered Medications Inactive Administered Medications - up to 3 most recent administrations Medication Order MAR Action Action Date Dose Rate Site ketorolac (TORADOL) Given 11/17/2018 8:40 AM 15 mg Right Deltoid injection 15 mg CDT 15 mg, Intramuscular, ONCE, On Thu11/17/18 at 0822, For 1 dose, Can cause pain on injection. If ordered intravenously (IV) : administer through a running maintenance fluid over 1 minute followed by a flush. If patient complains of pain on injection, may dilute 15-30 mg in 5 mL and push over 1 to 2 minutes. documented in this encounter Active and Recently Administered Medications Times are shown in CDT. Scheduled Medication Order 11/15/2018 11/16/2018 11/17/2018 ketorolac (TORADOL) injection 15 mg (COMPLETED) 0840 (Given - Provider: Verito Huerta RN) 15 mg, Intramuscular, ONCE, 11/17/18 a t 0822, For 1 dose, Can cause pain on injection. If ordered intravenously (IV) : administer through a running maintenance fluid over 1 minute followed by a flush. If patient complains of pain on injecti on, may dilute 15-30 mg in 5 mL and push over 1 to 2 minutes. documented in this encounter Additional Health Concerns Assessment Noted Time PHQ-9 Depression Total Score: 13 01/12/2018 7:12 AM CD T documented as of this encounter Care Teams Cost Analyst Relationship Specialty Start Date End Date Justin Loya MD PCP - General Family Practice 02/19/11 [facility] [id number] [place] [phone] Silas Santiago MD MD Pain Clinic 11/29/13 [facility] [address] [place] [address] documented as of this encounter
--- OUTSIDE RECORDS SUMMARY | 2022-06-23 17:43 | XMS_ITS | Encounter Summary ---
:1990 Author Organization [place] Address [address] [facility] [place] [address] Care Team Providers Name Role Phone Justin Loya MD Primary Care Provider Silas Santiago MD Unavailable Reason for Visit Reason Comments Back and Leg Tingling Encounter Details Date Type Department Care Team Description 08/17/2018 Emergency [facility] Diaz Lopez Acute left-sided low [facility] Emergency Dep jennifer Mckeon MD back pain with [address] [facility] left-sided sciatica [place], [place] [id number] [address] [phone] [address] [place], [place] [id number] (Wo rk) Social History Tobacco Use Types Packs/Day Years Used Date Smoking Tobacco: Never Smokeless Tobacco: Never Alcohol Use Standard Drinks/Week Comments No 0 (1 standard drink = 0.6 oz pure alcoho l) Sex Assigned at Date Recorded Not on file documented as of this encounter Last Filed Vital Signs Vital Sign Reading Time Taken Comments Blood Pressure 117/74 08/17/2018 12:00 PM MELLOWING MACHINE OPERATOR Pulse - - Temperature 36.5 ??C (97.7 ??F) 08/17/2018 8:36 AM MELLOWING MACHINE OPERATOR Respiratory Rate 16 08/17/2018 12:13 PM MELLOWING MACHINE OPERATOR Oxygen Saturation 99% 08/17/2018 12:00 PM MELLOWING MACHINE OPERATOR Inhaled Oxygen Concentration - - Weight - - Height - - Body Mass Index - - documented in this encounter Discharge Instructions AttachmentsThe following attachments cannot be sent through Care Everywhere.BACK PAIN W/ SCIATICA (IRAQI)documented in this encounter Medications at Time of Discharge Medication Sig Dispensed Refills Start Date End Date methocarbamol (ROBAXIN) Take 1 tablet (750 15 tablet 0 07/2111/17/2018 750 MG tablet mg) by mouth 4 times daily as needed for muscle spasms documented as of this encounter ED Notes Norma Fischer RN - 08/17/2018 8:33 AM CST Pt aox4, abcs intact. Pt states that she has been having intermittent back/leg pain and tingling forthe last 6 months. Woke up this morning with shooting pains down both legs and pins and needles inher left foot. Pt hx of back surgery. Pain that is achey 03/29 that shoots up my back every time Imove. OWING MACHINE OPERATOR Diaz Lopez MD - 08/17/2018 8:25 AM CST History Chief Complaint: Back and Leg Tingling HPI Destiney Cassidy is a 27 year old female s/p L5/S1 decompression performed in 2010 who presents to the emergency department for evaluation of back and leg tingling. The patient was seen on 08/03/17 for back pain radiating down her left leg and tingling in her left foot. She was discharged with primary care provider follow up in 3 days after her emergency department visit. Her pain resolved after a week. The patient states that she fell 2 days ago on her stairs. Since then she has had bilateral back pain radiating down both her legs with numbness as well. She reports tingling in her groin and pelvis.Patient believes this is a flare up of her back pain but is here to rule out cauda equina. She denies fevers, weakness or use of blood thinners. Allergies: Cefzil [Cefprozil] Ciprofloxacin Penicillin G ?? Medications: Gabapentin Atarax Lorazepam Robaxin ?? Past Medical History: Anxiety Back pain DVT Insomnia ?? Past Surgical History: Decompression lumbar L5-S1 Myringotomy Tonsillectomy [facility] teeth removal ?? Family History: No past pertinent family history. ?? Social History: Presents alone. Never smoker. Negative for alcohol use. Marital Status: [2] Review of Systems Constitutional: Negative for fever. Musculoskeletal: Positive for back pain. Neurological: Positive for numbness. Negative for weakness. All other systems reviewed and are negative. Physical Exam First Vitals: BP: 117/72 Heart Rate: 67 Temp: 97.7 ??F (36.5 ??C) Resp: 16 SpO2: 98 % Physical Exam Constitutional: Appears well-developed and well-nourished. Alert. Conversant. Non toxic. HENT: Head: Atraumatic. Nose: Nose normal. Mouth/Throat: Oral mucosa is clear and moist. no trismus. Pharynx normal. Tonsils symmetric. No tonsillar enlargement, erythema, or exudate. Eyes: Conjunctivae normal. EOM normal. Pupils equal, round, and reactive to light. No scleral icterus. Neck: Normal range of motion. Neck supple. No tracheal deviation present. Cardiovascular: Normal rate, regular rhythm. No gallop. No friction rub. No murmur heard. Symmetric radial artery pulses Pulmonary/Chest: Effort normal. No stridor. No respiratory distress. No wheezes. No rales. No rhonchi . No tenderness. Abdominal: Soft. Bowel sounds normal. No distension. No mass. No tenderness. No rebound. No guarding. Musculoskeletal: RUE: Normal range of motion. No tenderness. No deformity LUE: Normal range of motion. No tenderness. No deformity RLE: Normal range of motion. No edema. No tenderness. No deformity LLE: Normal range of motion. No edema. No tenderness. No deformity Well-healed lower midline lumbar incision. No erythema, warmth, step-off, crepitus, ecchymosis, abrasion. Patient's low back hurts more with lifting either leg, but lifting her legs does not trigger radicular pain, therefore she has negative straight leg raise. Lymph: No cervical adenopathy. Neurological: Alert and oriented to person, place, and time. Normal strength. CN II-VII intact. No sensory deficit. GCS eye subscore is 4. GCS verbal subscore is 5. GCS motor subscore is 6. Normal coordination Sensory: Normal light touch sensation bilaterally on the anteromedial thigh (L3), medial malleolus (L4), right dorsal first web space (L5), lateral malleolus (S1) but she has subjective paresthesias onthe sole of her left foot and in the left dorsal first webspace. Strength: 5/5 strength bilaterally in the hip flexors (L3), quadriceps (L4), tibialis anterior, EHL (L5), gastrocnemius (S1), and hamstring. DTRs: symmetric in the patella (2/4) and in the achilles tendons. Negative straight leg raise bilaterally. Gait normal. No foot drop. Skin: Skin is warm and dry. No rash noted. No pallor. Normal capillary refill. Psychiatric: Normal mood. Normal affect. Emergency Department Course Imaging: Radiology findings were communicated with the patient who voiced understanding of the findings. Post void residual-15 mL Lumbar spine MRI w/o contrast Final Result IMPRESSION: Small left subarticular and foraminal disc protrusion at L5-S1 causing moderate left neural foraminal narrowing. This is unchanged since previous MR 09/19/2017. LISA KOLB MD Reading per radiology Laboratory: Laboratory findings were communicated with the patient who voiced understanding of the findings. HCG: negative UA: few bacteria (A), squamous epithelial 2 (H), mucous present (A) Interventions: Ativan 1 mg PO Tramadol 50 mg PO Robaxin 750 mg PO Emergency Department Course: Nursing notes and vitals reviewed. I performed an exam of the patient as documented above. I discussed the treatment plan with the patient. They expressed understanding of this plan and consented to discharge. They will be discharged home with instructions for care and follow up. In addition, the patient will return to the emergency department if their symptoms persist, worsen, if new symptoms arise or if there is any concern. All questions were answered. I personally reviewed the imaging and lab results with the Patient and answered all related questions prior to discharge. Impression & Plan Medical Decision Making: Destiney Cassidy is a 27 year old female with a complex past medical history including prior lumbar disc herniation with decompressive surgery done about 6 or 7 years ago. She has had occasional episodes of low back pain ever since that surgery but has been having more severe episodes of pain with left leg numbness and pain for the past couple of weeks, in particular severe in the past couple of days. She presented to the ER specifically because she wanted an MRI to look for cauda equina syndrome and to rule out arachnoiditis. MRI of her lumbar spine without contrast was obtained, due to intolerance of gadolinium. Patient understands that this limits the sensitivity of the exam somewhat. MRI does show a lumbar disc herniation at the L5-S1 level with some protrusion into the foramen. I think this could potentially be the cause for his symptoms and might explain some of her left leg symptomatology, even though is not clearly compressing the nerve root on the MRI. No evidence for her other more sinister concerns or other more serious pathology such as epidural abscess, discitis, fracture, spine metastases. At this point, with reasonable clinical confidence, I think she is safe for an outpatient follow-up with the spine team. I discussed with her that it would be beneficial for her to follow-up with them,even if no operation is indicated, because they may be able to help follow along and make sure she is getting proper care with physical therapy, potential steroid injections, and other conservative measures. For pain, patient has been using Ultram recently but does not feel it works. She mentioned that in the past she had improvement of her low back pain with Robaxin. I felt it was reasonable to givea short prescription for that. We discussed sedation and addiction potential. She understands. I recommended close outpatient follow-up with the spine team for further evaluation. Return to the ER if any concerns. Diagnosis: ICD-10-CM 1. Acute left-sided low back pain with left-sided sciatica M54.42 Disposition: Discharged Discharge Medications: Review of your medicines START taking Dose / Directions methocarbamol 750 MG tablet Commonly known as: ROBAXIN Dose: 750 mg Take 1 tablet (750 mg) by mouth 4 times daily as needed for muscle spasms Quantity: 15 tablet Refills: 0 Where to get your medicines Some of these will need a paper prescription and others can be bought over the counter. Ask your nurse if you have questions. Bring a paper prescription for each of these medications ?? methocarbamol 750 MG tablet Scribe Disclosure: I, Dago Oscar, am serving as a scribe at 12:03 PM on 08/17/2018 to document services personallyperformed by Diaz Lopez MD, based on my observations and the provider's statements to me. [facility] EM[facility] Diaz Lopez MD 08/17/18 [id number] OWING MACHINE OPERATOR documented in this encounter Plan of Treatment Not on filedocumented as of this encounter Procedures Procedure Name Priority Date/Time Associated Comments Diagnosis MR LUMBAR SPINE W/O STAT 08/17/2018 10:55 Resu lts for this CONTRAST AM MELLOWING MACHINE OPERATOR procedure are i n the results section. HCG QUALITATIVE URINE STAT 08/17/2018 9:48 AM Results for this MELLOWING MACHINE OPERATOR procedure are i n the results section. ROUTINE UA WITH STAT 08/17/2018 9:48 AM Result s for this MICROSCOPIC MELLOWING MACHINE OPERATOR procedure are i n the results section. documented in this encounter Results Lumbar spine MRI w/o contrast (08/17/2018 10:55 AM MELLOWING MACHINE OPERATOR) Anatomical Region Laterality Modality Spine, SUBRAD MR NEURO, UMP MR SPINE, RAD MR Magnetic Resonance Specimen (Source) Anatomical Location Collection Method / Collectio n Time Received Time / Laterality Volume Impressions 08/17/2018 11:21 AM MELLOWING MACHINE OPERATOR IMPRESSION: Small left subarticular and foraminal disc protrusion at L5-S1 causing moderate left neural abhijit inal narrowing. This is unchanged since previous MR 09/19/2017. LISA KOLB MD Narrative 08/17/2018 11:21 AM MELLOWING MACHINE OPERATOR MRI LUMBAR SPINE WITHOUT CONTRAST August 17, 2018 10:55 AM HISTORY: Low back pain, bilateral thigh numbness and left foot numbness. Prior surgery. TECHNIQUE: Multiplanar multisequence MRI of the lumbar spine without contrast. COMPARISON: Lumbar spine MR 09/19/2017. FINDINGS: There are five lumbar-type rachel tebral bodies assumed for the purposes of this dictation. There appear s to be partial sacralization of the L5 vertebral body. The distal spi nal cord and cauda equina appear normal. Alignment of the lumbar spine is normal. No loss of vertebral body height. There are no destructive osseous lesions. Mild loss of intervertebral disc space and disc desic cation at L5-S1. The other disc levels appear normal. Level by level as follows: T12-L1: No significant spinal canal or n eural foraminal narrowing. L1-L2: No significant spinal canal or ne ural foraminal narrowing. L2-L3: No significant spinal canal or ne ural foraminal narrowing. L3-L4: No significant spinal canal or ne ural foraminal narrowing. L4-L5: No significant spinal canal or ne ural foraminal narrowing. L5-S1: Small left subarticular and abhijit inal disc protrusion resulting in moderate left neural foraminal narrow ing. No significant spinal canal or right neural foraminal narrowin g. Paraspinous soft tissues: Normal. Procedure Note Lisa Kolb MD - 08/17/2018 MRI LUMBAR SPINE WITHOUT CONTRAST Christelle ta 2018 10:55 AM HISTORY: Low back pain, bilateral thigh numbness and left foot numbness. Prior surgery. TECHNIQUE: Multiplanar multisequence MRI of the lumbar spine without contrast. COMPARISON: Lumbar spine MR 09/19/2017. FINDINGS: There are five lumbar-type rachel tebral bodies assumed for the purposes of this dictation. There appear s to be partial sacralization of the L5 vertebral body. The distal spi nal cord and cauda equina appear normal. Alignment of the lumbar spine is normal. No loss of vertebral body height. There are no destructive osseous lesions. Mild loss of intervertebral disc space and disc desic cation at L5-S1. The other disc levels appear normal. Level by level as follows: T12-L1: No significant spinal canal or n eural foraminal narrowing. L1-L2: No significant spinal canal or ne ural foraminal narrowing. L2-L3: No significant spinal canal or ne ural foraminal narrowing. L3-L4: No significant spinal canal or ne ural foraminal narrowing. L4-L5: No significant spinal canal or ne ural foraminal narrowing. L5-S1: Small left subarticular and abhijit inal disc protrusion resulting in moderate left neural foraminal narrow ing. No significant spinal canal or right neural foraminal narrowin g. Paraspinous soft tissues: Normal. IMPRESSION: Small left subarticular and foraminal disc protrusion at L5-S1 causing moderate left neural abhijit inal narrowing. This is unchanged since previous MR 09/19/2017. LISA KOLB MD Diaz Lopez MD IM MRI ORDERABLES HCG qualitative urine (UPT) (08/17/2018 9:48 AM MELLOWING MACHINE OPERATOR) P athologist Signature HCG Qual Urine Negative NEG^Negati 08/17/2018 [facility] ve 10:[address] [facility] Comment: This test is for screening purposes. ??R esults should be interpreted along with the clinical picture. ??Confirmation te sting is available if warranted by ordering [id number], HCG Quantitative Pregna ncy. Specimen Anatomical Collection Method Collection Time Receive d Time (Source) Location / / Volume Laterality Urine specimen 08/17/2018 9:48 AM 019 9:54 (specimen) MELLOWING MACHINE OPERATOR AM MELLOWING MACHINE OPERATOR Diaz Lopez MD LAB - URINE ORDERABLES Performing Organization Address City/State/ZIP Code Phon e Number [place] [address] [address] [place] [address] [facility] [address] [phone] (ABNORMAL) UA with Microscopic (08/17/2018 9:48 AM MELLOWING MACHINE OPERATOR) Patholo gist Method Time Signature Color Urine Yellow 08/17/2018 [facility] 10:01 AM [facility] Appearance Urine Clear 08/17/2018 [facility] 10:01 AM [facility] Glucose Urine Negative NEG^Negat 08/17/2018 [facility] stephanie mg/dL 10:01 AM [facility] Bilirubin Urine Negative NEG^Negat 08/17/2018 [facility] stephanie 10:01 AM [facility] Ketones Urine Negative NEG^Negat 08/17/2018 [facility] stephanie mg/dL 10:01 AM [facility] Specific [place] 1.013 1.003 - 08/17/2018 [facility] Urine 1.035 10:01 AM [facility] Blood Urine Negative NEG^Negat 08/17/2018 [facility] stephanie 10:01 AM [facility] pH Urine 6.0 5.0 - 7.0 08/17/2018 [facility] pH 10:01 AM [facility] Protein Albumin Negative NEG^Negat 08/17/2018 [facility] Urine stephanie mg/dL 10:01 AM [facility] Urobilinogen 0.0 0.0 - 2.0 08/17/2018 [facility] mg/dL mg/dL 10:01 AM [facility] Nitrite Urine Negative NEG^Negat 08/17/2018 [facility] ste[facility]ie 10:01 AM [facility] Leukocyte Negative NEG^Negat 08/17/2018 [place] Esterase Urine stephanie 10:01 AM [facility] Source Midstream 08/17/2018 [place] Urine 9:[address] [facility] WBC Urine 1 0 - 5 08/17/2018 [facility] /HPF 10:01 AM [facility] RBC Urine <1 0 - 2 08/17/2018 [facility] /HPF 10:01 AM [facility] Bacteria Urine Few (A) NEG^Negat 08/17/2018 [facility] stephanie /HPF 10:01 AM [facility] Squamous 2 (H) 0 - 1 08/17/2018 [facility] Epithelial /HPF /HPF 10:01 AM [facility] Mucous Urine Present (A) NEG^Negat 08/17/2018 [place] stephanie /LPF 10:01 AM [facility] Specimen (Source) Anatomical Collection Method Collection Time Re ceived Time Location / / Volume Laterality Examination of 08/17/2018 9:48 08/17/2018 9:54 midstream urine AM MELLOWING MACHINE OPERATOR [facility] specimen (procedure) Diaz Lopez MD LAB - URINE ORDERABLES Performing Organization Address City/State/ZIP Code Phon e Number [place] [address] [phone] documented in this encounter Visit Diagnoses Diagnosis Acute left-sided low back pain with left -sided sciatica documented in this encounter Administered Medications Inactive Administered Medications - up to 3 most recent administrations Medication Order MAR Action Action Date Dose Rate Site LORazepam (ATIVAN) tablet 1 mg Given 08/17/2018 10:21 AM MELLOWING MACHINE OPERATOR 1 mg 1 mg, Oral, ONCE, On Thu08/17/18 at 0943, For 1 dose methocarbamol (ROBAXIN) tablet 750 mg Given 08/17/2018 12:02 PM MELLOWING MACHINE OPERATOR 750 mg 750 mg, Oral, ONCE, On Thu08/17/18 at 1159, For 1 dose traMADol (ULTRAM) tablet 50 mg Given 08/17/2018 9:53 AM MELLOWING MACHINE OPERATOR 50 mg 50 mg, Oral, ONCE, On Thu08/17/18 at 0943, For 1 dose documented in this encounter Active and Recently Administered Medications Times are shown in MELLOWING MACHINE OPERATOR. Scheduled Medication Order 08/15/2018 08/16/2018 08/17/2018 LORazepam (ATIVAN) tablet 1 mg (COMPLETED) 1021 (Given - Provider: Norma Fischer, ALDO) 1 mg, Oral, ONCE, 08/17/18 at 0943, For 1 dose methocarbamol (ROBAXIN) tablet 750 mg (COMPLETED) 1202 (Given - Provider: Elisa Chairez RN) 750 mg, Oral, ONCE, 08/17/18 at 1159, For 1 dose traMADol (ULTRAM) tablet 50 mg (COMPLETED) 0953 (Given - Provider: Norma Fischer RN) 50 mg, Oral, ONCE, 08/17/18 at 0943, For 1 dose documented in this encounter Additional Health Concerns Assessment Noted Time PHQ-9 Depression Total Score: 13 01/12/2018 7:12 AM CD T documented as of this encounter Care Teams Athletic Agent Relationship Specialty Start Date End Date Justin Loya MD PCP - General Family Practice 02/19/11 [facility] [address] [place] [phone] Silas Santiago MD MD Pain Clinic 11/29/13 [facility] [address] [facility] [place] [address] documented as of this encounter
--- OUTSIDE RECORDS SUMMARY | 2022-06-23 17:43 | XMS_ITS | Encounter Summary ---
:1990 Author Organization [facility] Address [address] [facility] [place] [address] Care Team Providers Name Role Phone Justin Loya MD Primary Care Provider Silas Santiago MD Unavailable Encounter Details Date Type Department Care Team Description 02/22/2019 Travel Social History Tobacco Use Types Packs/Day [...] as of this encounter Care Teams Supervisor Dental Laboratory Relationship Specialty Start Date End Date Justin Loya MD PCP - General Family Practice 02/19/11 [facility] [address] [place] [phone] Silas Santiago MD MD Pain Clinic 11/29/13 [facility] [address] [place], [place] [id number] documented as of this encounter
--- OUTSIDE RECORDS SUMMARY | 2022-06-23 17:43 | XMS_ITS | Encounter Summary ---
:1990 Author Organization [place] Address [address] [facility] [place] [address] Care Team Providers Name Role Phone Justin Loya MD Primary Care Provider Silas Santiago MD Unavailable Stewart Munguia RN Unavailable Reason for Visit Reason Comments Arm Pain Encounter Details Date Type Department Care Team Description 06/20/2018 Emergency [facility] Lopez Diaz Left arm pain; [facility] Emergency Dep t MD Mike Atypical chest pain; [address] [facility] Upper respiratory tract infe ction, unspecified type [place], [place] [address] [address] [phone] [facility] [address] [place], [place] [phone] (Wo rk) Social History Tobacco Use Types Packs/Day Years Used Date Smoking Tobacco: Never Smokeless Tobacco: Never Alcohol Use Standard Drinks/Week Comments No 0 (1 standard drink = 0.6 oz pure alcoho l) Sex Assigned at Date Recorded Not on file documented as of this encounter Last Filed Vital Signs Vital Sign Reading Time Taken Comments Blood Pressure 126/82 06/20/2018 2:22 PM STRINGS TEACHER Pulse 79 06/20/2018 2:22 PM STRINGS TEACHER Temperature 36.4 ??C (97.6 ??F) 06/20/2018 2:22 PM STRINGS TEACHER Respiratory Rate 14 06/20/2018 2:22 PM STRINGS TEACHER Oxygen Saturation 98% 06/20/2018 4:00 PM STRINGS TEACHER Inhaled Oxygen Concentration - - Weight - - Height - - Body Mass Index - - documented in this encounter Discharge Instructions Discharge InstructionsPeDiaz eason MD - 06/20/2018 5:02 PM STRINGS TEACHER Images from the original note were not included. Noncardiac Chest Pain Based on your visit today, the healthcare provider doesn???t know what is causing your chest pain. In most cases, people who come to the emergency department with chest pain don???t have a problem withtheir heart. Instead, the pain is caused by other conditions. It's important for the healthcare teamto be sure you are not having a life threatening cause for chest pain such as a heart attack, blood clot in the lungs, collapsed lung, ruptured esophagus, or tearing of the aorta. Once these major causes have been ruled out, you may have further evaluation for non-heart causes of chest pain. These maybe problems with the lungs, muscles, bones, digestive tract, nerves, or mental health. Lung problems ?? Inflammation around the lungs (pleurisy) ?? Collapsed lung (pneumothorax) ?? Fluid around the lungs (pleural effusion) ?? Lung cancer (a rare cause of chest pain) Muscle or bone problems ?? Inflamed cartilage between the ribs (costochondritis) ?? Fibromyalgia ?? Rheumatoid arthritis ?? Chest wall strain Digestive system problems ?? Reflux ?? Stomach ulcer ?? Spasms of the esophagus ?? Gall stones ?? Gallbladder inflammation Mental health conditions ?? Panic or anxiety attacks ?? Emotional distress Your condition doesn???t seem serious and your pain doesn???t appear to be coming from your heart. But sometimes the signs of a serious problem take more time to appear. Watch for the warning signs listed below. Home care Follow these guidelines when caring for yourself at home: ?? Rest today and avoid strenuous activity. ?? Take any prescribed medicine as directed. Follow-up care Follow up with your healthcare provider, or as advised, if you don???t start to feel better within 24 hours. When to seek medical advice Call your healthcare provider right away if any of these occur: ?? A change in the type of pain. Call if it feels different, becomes more serious, lasts longer, or begins to spread into your shoulder, arm, neck, jaw, or back. ?? Shortness of breath ?? You feel more pain when you breathe ?? Cough with dark-colored mucus or blood ?? Weakness, dizziness, or fainting ?? Fever of 100.4??F (38??C) or higher, or as directed by your healthcare provider ?? Swelling, pain, or redness in one leg Date Last Reviewed: 06/19/2016 ?? [phone] [employer]. [address] [place] [address], [place] [address]. All rights reserved. This information is not intended as a substitute for professional medical care. Always follow your healthcare professional's instructions. NGS TEACHER documented in this encounter Medications at Time [...] documented as of this encounter ED Notes Vicky Patton RN - 06/20/2018 2:45 PM CST Patient has call light on, appears very anxious. States My oxygen level dropped into the 70s. Patient reassured. Monitor did not show good pleth, probe is on finger upside down and hanging off of herfinger. Replaced with sticker probe - monitor now has good pleth and sats are 98% on room air. NGS TEACHER Vicky Patton RN - 06/20/2018 2:21 PM CST Into room to place IV and obtain labs. Patient refused IV placement as she states that IV is what iscausing her issue. Patient denies any h/o clotting disorders. NGS TEACHER Vicky Patton RN - 06/20/2018 2:20 PM CST Patient comes to ED c/o arm pain. Patient states that she was in the ED recently and had an IV placed in same arm. She also reports that she has had a DVT previously from an IV. She says she is having SOB but also coughing up phlegm. NGS TEACHER Diaz Lopez MD - 06/20/2018 2:13 PM CST History Chief Complaint: Arm pain HPI: The history is provided by the patient. Destiney Cassidy is a 27 year old female with a history of DVT and anxiety who presents to the emergency department with her spouse for evaluation of arm pain. Of note, the patient was seen here in theemergency department on 06/17/18 for evaluation of abdominal pain. Work up was relatively unremarkable aside from slight AST and ALT elevation. Since this evaluation, she has had increasing pain in herleft arm starting where the IV was established which goes into her neck and wraps around her left side. Her previous DVT was thought to be provoked by an IV, prompting her to contact the doctor she sawfor this. He recommended an ultrasound of the arm which was obtained on 06/18 and was negative. She has since developed slight dyspnea with chest tightness and productive cough. The patient has an [id number] at home and noticed that her SATs were in the low 90's with laying flat last night. She has also lost her voice in this time and developed a sore throat. Concerned for a DVT or PE she presents to the emergency department for evaluation. Here, the patient denies any noticeable swelling or redness. She has no history of asthma. PE/DVT RISK FACTORS: Sex: Female Hormones: Negative Tobacco: Negative Cancer: Negative Travel: Negative Surgery: Negative Other immobilization: Negative Personal history: Positive Family history: Positive (father) Allergies: Cefzil [Cefprozil] - hives Ciprofloxacin Penicillin G - hives Medications: Gabapentin Atarax Lorazepam Magnesium oxide Robaxin Ibuprofen Past Medical History: DVT Insomnia Anxiety Sensory disorder Past Surgical History: Decompression lumbar minimally invasive one level Myringotomy, insert tube bilateral Tonsillectomy [place] teeth Family History: Father - DVT, no blood clotting disorders Social History: Presents with spouse Tobacco use: Never smoker Alcohol use: No PCP: Justin Loya Marital Status: Review of Systems Respiratory: Positive for cough, chest tightness and shortness of breath. Musculoskeletal: Positive for myalgias. Skin: Negative for rash. All other systems reviewed and are negative. Physical Exam Patient Vitals for the past 24 hrs: BP Temp Temp src Pulse Resp SpO2 06/20/18 1600 - - - - - 98 % 06/20/18 1545 - - - - - 99 % 06/20/18 1515 - - - - - 97 % 06/20/18 1445 - - - - - 96 % 06/20/18 1439 - - - - - 100 % 06/20/18 1422 126/82 97.6 ??F (36.4 ??C) Oral 79 14 100 % 06/20/18 1418 126/82 - - - - 100 % Physical Exam Constitutional: Appears well-developed and well-nourished. Alert. Conversant. Non toxic. HENT: Head: Atraumatic. Nose: Nose normal. Minimal nonpurulent rhinorrhea. Tympanic membranes are normal. Mouth/Throat: Oral mucosa is clear and moist. no trismus. Pharynx normal. Tonsils symmetric. No tonsillar enlargement, erythema, or exudate. Eyes: Conjunctivae normal. EOM normal. Pupils equal, round, and reactive to light. No scleral icterus. Neck: Normal range of motion. Neck supple. No tracheal deviation present. Voice is perhaps minimallyhoarse but no stridor or difficulty breathing. Cardiovascular: Normal rate, regular rhythm. No gallop. No friction rub. No murmur heard. Symmetric radial artery pulses Pulmonary/Chest: Occasional cough. Effort normal. No stridor. No respiratory distress. No wheezes. No rales. No rhonchi . No tenderness. Abdominal: Soft. Bowel sounds normal. No distension. No mass. No tenderness. No rebound. No guarding. Musculoskeletal: RUE: Normal range of motion. No tenderness. No deformity LUE: Normal range of motion. No tenderness. No deformity. IV site in the left antecubital fossa looks normal. No surrounding erythema, ecchymosis. No swelling or edema of the left shoulder, left upper extremity, left elbow, or left forearm or hand. RLE: Normal range of motion. No edema. No tenderness. No deformity LLE: Normal range of motion. No edema. No tenderness. No deformity Lymph: No cervical adenopathy. Neurological: Alert and oriented to person, place, and time. Normal strength. CN II-VII intact. No sensory deficit. GCS eye subscore is 4. GCS verbal subscore is 5. GCS motor subscore is 6. Normal coordination Skin: Skin is warm and dry. No rash noted. No pallor. Normal capillary refill. Psychiatric: Normal mood. Polite and appropriate. Perhaps mildly anxious.. Emergency Department Course ECG (15:08:59): Rate 67 bpm. LA interval 174. QRS duration 88. QT/QTc 394/416. P-R-T axes 63 67 68. Normal sinus rhythm with sinus arrhythmia. Normal ECG. Agree with computer interpretation. Interpreted at 1512 by Diaz Lopez MD. Imaging: Radiographic findings were communicated with the patient and family who voiced understanding of the findings. US Upper extremity arterial Duplex left: IMPRESSION: No DVT identified left upper extremity. Imaging independently reviewed and agree with radiologist interpretation. Emergency Department Course: Past medical records, nursing notes, and vitals reviewed. 1455: I performed an exam of the patient and obtained history, as documented above. EKG was obtained The patient was sent for a US while in the emergency department, findings above. 1702: I rechecked the patient. Findings and plan explained to the Patient and spouse. Patient discharged home with instructions regarding supportive care, medications, and reasons to return. The importance of close follow-up was reviewed. Impression & Plan Medical Decision Making: Destiney Cassidy is a 27 year old female with a history of previous left upper extremity DVT with extension into the jugular vein but no PE no longer on anticoagulants. She is not thought to have any hypercoagulable state and believes that her previous DVT was triggered after an IV insertion. She alsohas a history of anxiety. She was here in the ER a few days ago and had an IV in her left antecubital fossa for abdominal pain nausea and vomiting. Ever since then she has had pain radiating up her left arm toward the armpit. She has not had any swelling or color change in her extremity but is worriedthat she might have a DVT. She is already had an ultrasound ordered through her senior accounting manager office that was done 2 days ago on Thursday and was normal. On clinical exam she has a normal left upper extremity. There is no signs of cellulitis, edema to suggest DVT, superficial thrombophlebitis. We did repeat an arm ultrasound and is negative again today. Discussed with the patient that there is a very low probability of a left upper extremity DVT at this time. We discussed the possibility that she couldhave an occult clot in her subclavian vein not seen on the ultrasound. Overall though we think the risk of that is so low that the risk of radiation with CT imaging to look would outweigh the benefit. She is also had recent productive cough, hoarse voice, chest tightness. Overall we think this likelyindicates a viral URI. She is also complaining of some chest tightness more on the left side. I recommended x-ray to look for possible pneumonia but the patient declined that setting concern for risk of radiation. Overall this was most likely a viral infection. Exam reveals no evidence for focal consolidation and no wheezing to suggest bronchospasm or asthma. We did do EKG which shows no cardiac ischemia, arrhythmia and no sign of pericarditis. Chest pain would be highly atypical for ACS so we will hold off on labs. We had a couple of long discussions about whether or not her chest pain could indicate PE. We discussed possibly obtaining d-dimer however with her concurrent likely viral illness I think there is a high likelihood of a false positive which would then lead to need for CT chest. If the patient is worried about radiation from the chest x-ray there would be much more significant concern with radiation from CT. Additionally she is worried about even the potential for having an IV in her right arm because it might cause symptoms there. Patient understands there is no sign of DVT in her left arm and she is not having any symptoms of DVT elsewhere. Overall we feel that the risk of true PE in the patient's chest is low so we will hold off on further workup including d-dimer, CT scan. Although the patient's polite and appropriate there is an underlay of anxiety with her symptoms, which she, her , and I recognize. In lieu of further lab workup or advanced imaging we will pursue a course of careful watchful waiting. If she has any changing or worsening symptoms she will return to the ER right away. Diagnosis: ICD-10-CM 1. Left arm pain M79.602 2. Atypical chest pain R07.89 3. Upper respiratory tract infection, unspecified type J06.9 Disposition: Discharged to home with plan as outlined. Scribe Disclosure: IRobert, am serving as a scribe at 2:55 PM on 06/20/2018 to document services personally performed by Diaz Lopez MD based on my observations and the provider's statements to me. Robert Arreola 06/20/2018 [facility] EMERGENCY DEPARTMENT Diaz Lopez MD 06/20/18 [address]244 NGS TEACHER documented in this encounter Plan of Treatment Not on filedocumented as of this encounter Procedures Procedure Name Priority Date/Time Associated Diagnosis Comme nts US UPPER EXTREMITY STAT 06/20/2018 4:51 PM Res ults for this VENOUS DUPLEX LEFT STRINGS TEACHER procedure are in the results section. EKG 12-LEAD, STAT 06/20/2018 3:08 PM Results f or this TRACING ONLY STRINGS TEACHER procedure are i n the results section. documented in this encounter Results US Upper Extremity Venous Duplex Left (06/20/2018 4:51 PM STRINGS TEACHER) Anatomical Region Laterality Modality Extremity Ultrasound Specimen (Source) Anatomical Location Collection Method / Collectio n Time Received Time / Laterality Volume Impressions 06/20/2018 4:55 PM STRINGS TEACHER IMPRESSION: No DVT identified left upper extremity. KIA HELTON MD Narrative 06/20/2018 4:55 PM STRINGS TEACHER US UPPER EXTREMITY VENOUS DUPLEX LEFT 06/20/2018 4:51 PM HISTORY: left arm pain; TECHNIQUE: Venous Doppler US of the uppe r extremity.? Color flow and spectral Doppler with waveform analysis performed. COMPARISON: 06/18/2018 left upper extrem ity venous ultrasound FINDINGS: No deep vein thrombus demonstr ated in the visualized portions of left subclavian, axillary or brachial veins. No thrombus seen in the cephalic or basilic veins or visualized portions or internal jugular vein. Procedure Note Kia Helton MD - 06/20/2018For matting of this note might be different from the original. US UPPER EXTREMITY VENOUS DUPLEX LEFT 4:51 PM HISTORY: left arm pain; TECHNIQUE: Venous Doppler US of the uppe r extremity.? Color flow and spectral Doppler with waveform analysis performed. COMPARISON: 06/18/2018 left upper extrem ity venous ultrasound FINDINGS: No deep vein thrombus demonstr ated in the visualized portions of left subclavian, axillary or brachial veins. No thrombus seen in the cephalic or basilic veins or visualized portions or internal jugular vein. IMPRESSION: No DVT identified left upper extremity. KIA HELTON MD Diaz Lopez MD IMG US ORDERABLES EKG 12-lead, tracing only (06/20/2018 3:08 PM STRINGS TEACHER) [facility] gist Method Time Signature Interpretation ECG Click View RADIOLOGY Image link RESULTS to view waveform and result Specimen (Source) Anatomical Collection Method Collection Time Re ceived Time Location / / Volume Laterality 06/20/2018 3:08 PM STRINGS TEACHER Diaz Lopez MD ECG ORDERABLES Performing Organization Address City/State/ZIP Code Phon e Number RADIOLOGY RESULTS documented in this encounter Visit Diagnoses Diagnosis Left arm pain Pain in limb Atypical chest pain Other chest pain Upper respiratory tract infection, unspe cified type documented in this encounter Additional Health Concerns Assessment Noted Time PHQ-9 Depression Total Score: 13 01/12/2018 7:12 AM CD T documented as of this encounter Care Teams Paralegal Legal Secretary Relationship Specialty Start Date End Date Justin Loya MD PCP - General Family Practice 02/19/11 [facility] [address] [place] [phone] Silas Santiago MD MD Pain Clinic 11/29/13 [facility] [address] [place] [address] Stewart Munguia, RN Registered Nurse Neurology 10/13/17 07/30/18 documented as of this encounter
--- OUTSIDE RECORDS SUMMARY | 2022-06-23 17:43 | XMS_ITS | Encounter Summary ---
:1990 Author Organization [place] Address [address] [facility] [place] [address] Care Team Providers Name Role Phone Justin Loya MD Primary Care Provider Silas Santiago MD Unavailable Encounter Details Date Type Department Care Team Description 01/17/2019 Travel Social History Tobacco Use Types Packs/Day [...] documented as of this encounter Care Teams Bit Bender Relationship Specialty Start Date End Date Justin Loya MD PCP - General Family Practice 02/19/11 [facility] [address] [place] [phone] Silas Santiago MD MD Pain Clinic 11/29/13 [facility] [address] [place], [place] [phone] documented as of this encounter
--- OUTSIDE RECORDS SUMMARY | 2022-06-23 17:43 | XMS_ITS | Encounter Summary ---
:1990 Author Organization [place] Address [address] [place] [address] Care Team Providers Name Role Phone Justin Loya MD Primary Care Provider Silas Santiago MD Unavailable Reason for Referral Diagnostic Imaging Ultrasound (Routine) - Closed Specialty Diagnoses / Procedures Referred By Contact Refer red To Contact Radiology. 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 [facility] [address] [address] [address] [place] [address] Referral ID Status Reason Start Date Expiration Date Visits Requ ested Visits Authorized [id number] Closed 07/19/2019 07/18/2020 1 1 UETTING MACHINE OPERATOR Reason for Visit Diagnostic Imaging Ultrasound (Routine) - Closed Specialty Diagnoses / Procedures Referred By Contact Refer red To Contact Radiology. 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 [facility] [address] [address] [address] [place] [address] Referral ID Status Reason Start Date Expiration Date Visits Requ ested Visits Authorized [id number] Closed 07/19/2019 07/18/2020 1 1 Encounter Details Date Type Department Care Team Description [facility] due to Encounter [facility] Serafin, molar [facility] Imaging [place] [address] [facility] [address] [phone] [place] [id number] Social History Tobacco Use Types Packs/Day Years [...] Priority Date/Time Associated Diagnosis Comme nts US THYROID Routine 07/19/2019 1:22 PM Hyperthyroidism due to Results for this BRIQUETTING MACHINE OPERATOR molar thyrotropin procedure are in the results section. documented in this encounter Results US Thyroid (07/19/2019 1:22 PM BRIQUETTING MACHINE OPERATOR) Anatomical Region Laterality Modality Head Ultrasound Specimen (Source) Anatomical Location Collection Method / Collectio n Time Received Time / Laterality Volume Impressions 07/19/2019 3:54 PM BRIQUETTING MACHINE OPERATOR IMPRESSION: Mildly heterogeneous thyroid gland with increased color Doppler flow suggesting underlying thyro iditis. No discrete thyroid nodules. SYLVESTER PALACIOS MD Narrative 07/19/2019 3:54 PM BRIQUETTING MACHINE OPERATOR ULTRASOUND THYROID 07/19/2019 1:22 PM HISTORY: Questioning Graves disease. Hyp erthyroidism due to molar thyrotropin. FINDINGS: Thyroid ultrasound demonstrate s a normal sized gland. The right lobe measures 4.8 x 1.7 x 1.1 cm. The left lobe measures 4.2 x 1.2 x 0.9 cm. The isthmus is normal in t hickness. Thyroid parenchyma is mildly heterogeneous in echotexture. Increased color Doppler flow is noted throughout the gland possibly r eflecting underlying thyroiditis. Thyroid nodules as follows: Right Lobe: None. Isthmus: None. Left Lobe: None. Procedure Note Sylvester Palacios MD - 07/19/2019Form atting of this note might be different from the original. ULTRASOUND THYROID 07/19/2019 1:22 PM HISTORY: Questioning Graves disease. Hyp erthyroidism due to molar thyrotropin. FINDINGS: Thyroid ultrasound demonstrate s a normal sized gland. The right lobe measures 4.8 x 1.7 x 1.1 cm. The left lobe measures 4.2 x 1.2 x 0.9 cm. The isthmus is normal in t hickness. Thyroid parenchyma is mildly heterogeneous in echotexture. Increased color Doppler flow is noted throughout the gland possibly r eflecting underlying thyroiditis. Thyroid nodules as follows: Right Lobe: None. Isthmus: None. Left Lobe: None. IMPRESSION: Mildly heterogeneous thyroid gland with increased color Doppler flow suggesting underlying thyro iditis. No discrete thyroid nodules. 

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
--- OUTSIDE RECORDS SUMMARY | 2022-06-23 17:43 | XMS_ITS | Encounter Summary ---
:1990 Author Organization [place] Address [address] [facility] [place] [address] Care Team Providers Name Role Phone Justin Loya MD Primary Care Provider Silas Santiago MD Unavailable Encounter Details Date Type Department Care Team Description 11/19/2018 Travel Social History Tobacco Use Types Packs/Day [...] documented as of this encounter Care Teams Shaper Set Up Operator Relationship Specialty Start Date End Date Justin Loya MD PCP - General Family Practice 02/19/11 [facility] [address] [place] [phone] Silas Santiago MD MD Pain Clinic 11/29/13 [facility] [address] [place], [place] [phone] documented as of this encounter
--- OUTSIDE RECORDS SUMMARY | 2022-06-23 17:43 | XMS_ITS | Encounter Summary ---
:1990 Author Organization [place] Address [address] [facility] [place] [address] Care Team Providers Name Role Phone Justin Loya MD Primary Care Provider Silas Santiago MD Unavailable Reason for Visit Reason Comments Back Pain Encounter Details Date Type Department Care Team Description 08/03/2018 Emergency [facility] Stephanie Subramanian, PA-C Acute bilateral low [place] [facility] back pain with [address] Jacquelyn PA bilateral sciatica [place], [place] [address] [phone] [place] [address] (Wo rk) Social History Tobacco Use Types Packs/Day Years Used Date Smoking Tobacco: Never Smokeless Tobacco: Never Alcohol Use Standard Drinks/Week Comments No 0 (1 standard drink = 0.6 oz pure alcoho l) Sex Assigned at Date Recorded Not on file documented as of this encounter Last Filed Vital Signs Vital Sign Reading Time Taken Comments Blood Pressure 121/75 08/03/2018 6:55 PM ARC FURNACE OPERATOR Pulse - - Temperature 36.7 ??C (98.1 ??F) 08/03/2018 6:55 PM ARC FURNACE OPERATOR Respiratory Rate 20 08/03/2018 6:55 PM ARC FURNACE OPERATOR Oxygen Saturation 99% 08/03/2018 6:55 PM ARC FURNACE OPERATOR Inhaled Oxygen Concentration - - Weight 52.2 kg (115 lb) 08/03/2018 6:55 PM ARC FURNACE OPERATOR Height 170.2 cm (5' 7) 08/03/2018 6:55 PM ARC FURNACE OPERATOR Body Mass Index 18.01 08/03/2018 6:55 PM ARC FURNACE OPERATOR documented in this encounter Discharge Instructions Discharge InstructionsStephanie Subramanian PA-C - 08/03/2018 8:16 PM CST Discharge Instructions Back Pain You were seen today for back pain. Back pain can have many causes, but most will get better without surgery or other specific treatment. Sometimes there is a herniated (?slipped?) disc. We do not usually do MRI scans to look for these right away, since most herniated discs will get better on their ownwith time. Today, we did not find any evidence that your back pain was caused by a serious condition. However, sometimes symptoms develop over time and cannot be found during an emergency visit, so it is very important that you follow up with your primary provider. Generally, every Emergency Department visit should have a follow-up clinic visit with either a primary or a specialty clinic/provider. Please follow-up as instructed by your emergency provider today. Return to the Emergency Department if: You develop a fever with your back pain. You have weakness or change in sensation in one or both legs. You lose control of your bowels or bladder, or cannot empty your bladder (cannot pee). Your pain gets much worse. Follow-up with your provider: Unless your pain has completely gone away, please make an appointment with your provider within one week. Most of the routine care for back pain is available in a clinic and not the Emergency Department. You may need further management of your back pain, such as more pain medication, imaging such as an X-ray or MRI, or physical therapy. What can I do to help myself? Remain Active -- People are often afraid that they will hurt their back further or delay recovery byremaining active, but this is one of the best things you can do for your back. In fact, staying in bed for a long time to rest is not recommended. Studies have shown that people with low back pain recover faster when they remain active. Movement helps to bring blood flow to the muscles and relieve muscle spasms as well as preventing loss of muscle strength. Heat -- Using a heating pad can help with low back pain during the first few weeks. Do not sleep with a heating pad, as you can be burned. Pain medications - You may take a pain medication such as Tylenol?? (acetaminophen), Advil??, Motrin?? (ibuprofen) or Aleve?? (naproxen). If you were given a prescription for [...] if there is anything that worries you. FURNACE OPERATOR documented in this encounter Medications at [...] Probiotic Product 0 019 (PROBIOTIC ADVANCED PO) traMADol (ULTRAM) 50 MG Take 1 tablet (50 12 tablet 0 08/0308/17/2018 tablet mg) by mouth every 6 hours as needed for severe pain VITAMIN D, Take 5,000 Units by 0 08/17 CHOLECALCIFEROL, PO mouth daily documented as of this encounter ED Notes Nancy Kelsey RN - 08/03/2018 6:58 PM CST Pt has bilateral lower back pain for past 3 days. No known injury. She reports pain radiates down tothighs. She has tingling in her left foot. Stephanie Byers PA-C - 08/03/2018 6:50 PM CST History Chief Complaint: Back Pain RICHAR Cassidy is a 27 year old female with a history of back pain who presents to the emergency department for evaluation of back pain. The patient reports she has experienced around 3 days of bilateral lower back pain, radiating down to her lateral thighs as well. She states it does worsen with pal pation and movement. She notes a history of back pain (2011 L5-S1 decompression), but this is different from her previous episodes. She remarks she has also had some tingling in her left foot and headache which is currently resolved. The patient denies any urinary symptoms. The patient has been taking ibuprofen at home for pain management with no improvement. No numbness, tingling, or weakness. Allergies: Cefzil [Cefprozil] Ciprofloxacin Penicillin G Medications: Gabapentin Atarax Lorazepam Robaxin Past Medical History: Anxiety Back pain DVT Insomnia Past Surgical History: Decompression lumbar L5-S1 Myringotomy Tonsillectomy [place] teeth removal Family History: No past pertinent family history. Social History: Presents alone. Never smoker. Negative for alcohol use. Marital Status: [2] Review of Systems Constitutional: Negative for fever. Genitourinary: Negative for dysuria, enuresis and pelvic pain. Musculoskeletal: Positive for back pain and myalgias. Neurological: Negative for numbness and headaches. All other systems reviewed and are negative. Physical Exam Patient Vitals for the past 24 hrs: BP Temp Temp src Heart Rate Resp SpO2 Height Weight 08/03/18 1855 121/75 98.1 ??F (36.7 ??C) Oral 93 20 99 % 1.702 m (5' 7) 52.2 kg (115 lb) Physical Exam Constitutional: comfortable appearing, in no acute distress. Head: No external signs of trauma noted to head or face. Eyes: Pupils are equal, round, and reactive to light. Neck: normal ROM. Cardiovascular: Normal rate, regular rhythm, and intact distal pulses. Respiratory: Effort normal. No respiratory distress. Lungs clear to auscultation bilaterally. GI: Soft. There is no tenderness. There is no rebound. Musculoskeletal: No deformities appreciated. Normal ROM. No edema noted. Tender to palpation over low lumbar spine and paraspinal muscles bilaterally. No other back or neck tenderness. Neurological: Alert and Oriented x 3. Speech normal. Moves all extremities equally. 5/5 strength of bilateral lower extremities including hip flexion, knee flex/ext, plantarflexion/dorsiflexion. Sensation intact to light touch. Gait normal. Psychiatric: Appropriate mood, affect, and behavior. Skin: Skin is warm and dry. No rash. Emergency Department Course Imaging: Radiographic findings were communicated with the patient who voiced understanding of the findings. XR Lumbar spine, 2-3 Views: No acute osseous or alignment abnormality. As per radiology. Emergency Department Course: Nursing notes and vitals reviewed. 1908 I performed an exam of the patient as documented above. The patient was sent for a XR L Spine while in the emergency department, findings above. 2018 I rechecked the patient and discussed the results of her workup thus far. Findings and plan explained to the Patient. Patient discharged home with instructions regarding supportive care, medications, and reasons to return. The importance of close follow-up was reviewed. The patient was prescribed tramadol. Impression & Plan Medical Decision Making: Destiney Cassidy is a 27 year old female who presents for evaluation of back pain. She has a historyof back pain in the past. She declined any medications in the emergency department. X-rays of lumbarspine are negative. No red flag symptoms to suggest CT and/or MRI is indicated at this point. There is no clinical evidence of cauda equina syndrome, discitis, spinal/epidural space hematoma or epidural abscess or other worrisome etiology. The neurological exam is normal and the patient's symptoms seem consistent with musculoskeletal issues and significant muscle spasm. There may be a component of radiculopathy, but again, no need for urgent CT or MRI at this time. The patient will be discharged with pain medications to use as directed. Ice or heat to the back and stretching exercises. No heavy lifting, bending or twisting. Return if increasing pain, numbness, weakness, or bowel or bladder dysfunction. She was advised to schedule follow-up with her primary doctor within 3 days to re-assess symptoms. Diagnosis: ICD-10-CM 1. Acute bilateral low back pain with bilateral sciatica M54.42 M54.41 Disposition: discharged to home Discharge Medications: Medication List Started traMADol 50 MG tablet Commonly known as: ULTRAM 50 mg, Oral, EVERY 6 HOURS PRN IGamal, am serving as a scribe on 08/03/2018 at 7:10 PM to personally document services performed by Stephanie Subramanian PA-C based on my observations and the provider's statements to me. Gamal Moreno 08/03/2018 [facility] EMERGENC[facility]PART[facility] Stephanie Subramanian PA-C 08/03/182036 FURNACE OPERATOR documented in this encounter Plan of Treatment Not on filedocumented as of this encounter Procedures Procedure Name Priority Date/Time Associated Diagnosis Comme nts XR LUMBAR SPINE 2/3 STAT 08/03/2018 7:37 PM Re sults for this VIEWS ARC FURNACE OPERATOR procedure are i n the results section. documented in this encounter Results Lumbar spine XR, 2-3 views (08/03/2018 7:37 PM ARC FURNACE OPERATOR) Anatomical Region Laterality Modality Spine, T-spine, L-spine, Abdomen/Pelvis Computed Radiography Specimen (Source) Anatomical Location Collection Method / Collectio n Time Received Time / Laterality Volume Impressions 08/03/2018 8:20 PM ARC FURNACE OPERATOR IMPRESSION: ??No acute osseous or alignment abnormality. DEYVI LEI MD Narrative 08/03/2018 8:20 PM ARC FURNACE OPERATOR LUMBAR SPINE THREE VIEWS ??08/03/2018 7:37 PM HISTORY: Pain. COMPARISON: None. Procedure Note Deyvi Lei MD - 08/03/2018Forma tting of this note might be different from the original. LUMBAR SPINE THREE VIEWS 08/03/2018 7:37 PM HISTORY: Pain. COMPARISON: None. IMPRESSION: No acute osseous or alignmen t abnormality. DEYVI LEI MD Stephanie Subramanian PA-C IMG DIAGNOSTIC IMAGING ORDER [place]EL[place] documented in this encounter Visit Diagnoses Diagnosis Acute bilateral low back pain with bilat eral sciatica documented in this encounter Additional Health Concerns Assessment Noted Time PHQ-9 Depression Total Score: 13 01/12/2018 7:12 AM CD T documented as of this encounter Care Teams E Commerce Developer Relationship Specialty Start Date End Date Justin Loya MD PCP - General Family Practice 02/19/11 [facility] [address] [place] [phone] Silas Santiago MD MD Pain Clinic 11/29/13 [facility] [address] [place] [address] documented as of this encounter
--- OUTSIDE RECORDS SUMMARY | 2022-06-23 17:43 | XMS_ITS | Encounter Summary ---
:1990 Author Organization [place] Address [address] [facility] [place] [address] Care Team Providers Name Role Phone Justin Loya MD Primary Care Provider Silas Santiago MD Unavailable Encounter Details Date Type Department Care Team Description 08/17/2018 Travel Social History Tobacco Use Types Packs/Day [...] documented as of this encounter Care Teams Steel Erector Apprentice Relationship Specialty Start Date End Date Justin Loya MD PCP - General Family Practice 02/19/11 [facility] [address] [place] [phone] Silas Santiago MD MD Pain Clinic 11/29/13 [facility] [address] [place], [place] [phone] documented as of this encounter
--- OUTSIDE RECORDS SUMMARY | 2022-06-23 17:43 | XMS_ITS | Encounter Summary ---
:1990 Author Organization [place] Address [address] [facility] [place] [address] Care Team Providers Name Role Phone Justin Loya MD Primary Care Provider Silas Santiago MD Unavailable Reason for Visit Reason Comments Recheck Encounter Details Date Type Department Care Team Description 11/22/2018 Emergency [facility] Stephanie Subramanian PA-C [facility] [address] [place] [address] Neck pain; Emergency Dept Minnie García MD [facility] [address] [place], [place] [phone] Face pain [address] [place] [address] Social History Tobacco Use Types Packs/Day Years Used Date Smoking Tobacco: Never Smokeless Tobacco: Never Alcohol Use Standard Drinks/Week Comments No 0 (1 standard drink = 0.6 oz pure alcoho l) Sex Assigned at Date Recorded Not on file documented as of this encounter Last Filed Vital Signs Vital Sign Reading Time Taken Comments Blood Pressure 120/74 11/22/2018 9:13 PM CDT Pulse 85 11/22/2018 9:13 PM CDT Temperature 37.4 ??C (99.3 ??F) 11/22/2018 9:13 PM CDT Respiratory Rate 16 11/22/2018 9:13 PM CDT Oxygen Saturation 99% 11/22/2018 9:13 PM CDT Inhaled Oxygen Concentration - - Weight - - Height - - Body Mass Index - - documented in this encounter Discharge Instructions Discharge Minnie Trujillo MD - 11/22/2018 11:03 PM CDT Ice or heat to neck. Rest neck. Return to the ED with new/worsen symptoms. documented in this encounter Medications at Time of Discharge Medication Sig Dispensed Refills Start Date End Date sucralfate (CARAFATE) 1 Take 10 mLs (1 g) by 420 mL 0 08/01/2021 GM/10ML suspension mouth 4 times daily documented as of this encounter ED Notes Katty Murcia RN - 11/22/2018 9:10 PM CDT Patient had neck message 1 week ago and reports facial swelling of cheeks & neck. Was seen for this issue 3 days ago in the ER. ABC's intact. Minnie García MD - 11/22/2018 8:53 PM CDT History Chief Complaint: Multiple Complaints The history is provided by the patient. Destiney Cassidy is a 27 year old female who presents with multiple complaints. Patient reports bilateral cheek swelling and bilateral neck pain/swelling secondary to a massage eight days ago. Patient acknowledges flare up of nerve pain in her face afterwards. She also reports onset of sinus congestion and right-sided ear pain the following day that was evaluated by her PMD who noted fluid in her ear. She annotates this has worsened over the last seven days. She states her facial shooting pain hasoccasionally caused difficulty swallowing and speaking. Patient affirms mild sore throat. Review of records reveal evaluation at this facility the last five days with ultrasound and EKG detailed below,she has declined CT scans. She presents tonight as her pain has been constant and asserts she is very nervous due to concerns for a dissection or blood clot.. 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 Last night, she complains of seeing white and pain in her right eye that was exacerbated with palpation of her orbits though denies current pain nor disturbances. She denies any fever today, headache, dental pain, upper/lower extremity disturbances, change in voice and appetite, or follow-up at [facility] with Justin Loya MD. Last period was normal was three weeks ago. She endorses increased stress at work recently and acknowledges using Benadryl the past two nights to help her sleep. She denies any hormone use. Recent workups at this facility: ECG (22:04:12) on 11/20/18 Rate 104 bpm. KS interval 150. QRS duration 80. QT/QTc 350/460. P-R-T axes 72 59 55. Sinus tachycardia. Nonspecific ST abnormality. Agree with computer interpretation. Interpreted at 2205 by Saroj Gomez MD. Ultrasound of Neck and Upper Extremities: 11/17/18 No evidence of DVT Allergies: Cefzil Cipro Penicillin G Medications: Carafate Past Medical History: Trigeminal neuralgia Anxiety Insomnia POTS Thrombosis of left jugular vein ?? Past Surgical History: Decompression lumbar Myringotomy, insert tube bilateral Tonsillectomy [place] teeth extraction Family History: No past pertinent family history. Social History: Smoking Status: Never Smoker Smokeless Tobacco: Never Used Alcohol Use: Negative Marital Status: Review of Systems Constitutional: Negative for fatigue. HENT: Positive for congestion, ear pain, facial swelling, sore throat and trouble swallowing. Negative for dental problem. Eyes: Positive for pain and visual disturbance. Musculoskeletal: Positive for myalgias and neck pain. Neurological: Positive for speech difficulty. Negative for headaches. Psychiatric/Behavioral: Positive for sleep disturbance. The patient is nervous/anxious. All other systems reviewed and are negative. Physical Exam Patient Vitals for the past 24 hrs: BP Temp Temp src Pulse Resp SpO2 11/22/18 2113 120/74 99.3 ??F (37.4 ??C) Temporal 85 16 99 % Physical Exam Nursing note and vitals reviewed. Constitutional: Pleasant and well groomed. Lean habitus. Repeatedly palpating bilateral face/neck demonstrating tenderness. HENT: No facial swelling/asymmetry. No facial erythema. TMs clear bilaterally. Tenderness overlyingmastoid region bilaterally. Tenderness over bilateral sternocleidomastoid and paracervical muscles. No swelling/asymmetry/warmth/erythema. Mouth/Throat: Oropharynx is without swelling or erythema. Oral mucosa moist. She is speaking with anormal voice. No trismus. Floor of her mouth is soft. No intraoral swelling. Eyes: Conjunctivae are normal. No scleral icterus. Neck: Neck supple. Range of motion intact. Cardiovascular: Tachycardiac rate, regular rhythm and intact distal pulses. Pulmonary/Chest: Effort normal and breath sounds normal. Abdominal: Soft. No distension. There is no tenderness. Musculoskeletal: No edema, No calf tenderness Neurological:Alert and oriented. Cranial nerves II-XII intact. Upper and lower extremity strength intact throughout. Light touch sensation intact throughout. Coordination normal. Skin: Skin is warm and dry. Psychiatric: Anxious affect. Emergency Department Course Emergency Department Course: 2153 Nursing notes and vitals reviewed. 2207 I performed an exam of the patient as documented above. 2239 Patient rechecked. I personally addressed all of her concerns prior to discharge, anticipatory guidance given. Impression & Plan Medical Decision Making: This 27 years old presents with continued bilateral anterior neck pain concerned there is swelling, concerned there is facial swelling/pain, pain behind her ears, ear pain after massage as described above. She has been seen number of times, one time did have an ultrasound which ruled out a DVT in the setting of having had a previous DVT related to a MRI. She has not had any worsening of her symptoms but her symptoms have been persistent, prompting her to present to the emergency department. She has had some concern about dissection. We discussed her presentation as well as the presentation for dissection. She readily admits that previous MRI that led to the DVT that she had was likely not necessary and is very reluctant to do additional unnecessary imaging. She is neurologically intact. There is no external sign of swelling and no concerning findings on exam. I have recommended she allow the area to rest, attempt to limit palpation/irritation, use ice and heat as necessary and arrange close follow-up with her primary care physician. She felt reassured by this and was not interested in further imaging studies at this time. She also understands the importance of returning to the ED if there is any progression of her symptoms or new/concerning (particularly neurologic) symptoms to return to theED for ongoing evaluation and management. Diagnosis: ICD-10-CM 1. Neck pain M54.2 2. Face pain R51 Disposition: Discharged home in stable condition. Scribe Disclosure: ICliff, am serving as a scribe at 10:01 PM on 11/22/2018 to document services personally performed by Minnie García MD based on my observations and the provider's statements to me. [facility] EMERGENCY DEPARTMENT Minnie García MD 11/25/18 1601 documented in this encounter Plan of Treatment Not on filedocumented as of this encounter Visit Diagnoses Diagnosis Neck pain Cervicalgia Face pain Headache documented in this encounter Additional Health Concerns Assessment Noted Time PHQ-9 Depression Total Score: 13 01/12/2018 7:12 AM CD T documented as of this encounter Care Teams Fruit Canner Relationship Specialty Start Date End Date Justin Loya MD PCP - General Family Practice 02/19/11 [facility] [address] [place] [phone] Silas Santiago MD MD Pain Clinic 11/29/13 [facility] [address] [place] [address] documented as of this encounter
--- OUTSIDE RECORDS SUMMARY | 2022-06-23 17:43 | XMS_ITS | Encounter Summary ---
:1990 Author Organization [place] Address [address] [facility] [place] [address] Care Team Providers Name Role Phone Justin Loya MD Primary Care Provider Silas Santiago MD Unavailable Encounter Details Date Type Department Care Team Description 01/26/2019 Travel Social History Tobacco Use Types Packs/Day [...] documented as of this encounter Care Teams Mascara Molder Relationship Specialty Start Date End Date Justin Loya MD PCP - General Family Practice 02/19/11 [facility] [address] [place] [phone] Silas Santiago MD MD Pain Clinic 11/29/13 [facility] [address] [place], [place] [phone] documented as of this encounter
--- OUTSIDE RECORDS SUMMARY | 2022-06-23 17:43 | XMS_ITS | Encounter Summary ---
:1990 Author Organization [place] Address [address] [facility] [place] [address] Care Team Providers Name Role Phone Justin Loya MD Primary Care Provider Silas Santiago MD Unavailable Stewart Munguia RN Unavailable Reason for Visit Reason Comments Allergic Reaction Encounter Details Date Type Department Care Team Description [facility] Dept [facility] [address] [place], [place] [phone] [place], [place] [address] (Wo rk) Social History Tobacco Use Types Packs/Day Years Used Date Smoking Tobacco: Never Smokeless Tobacco: Never Alcohol Use Standard Drinks/Week Comments No 0 (1 standard drink = 0.6 oz pure alcoho l) Sex Assigned at Date Recorded Not on file documented as of this encounter Last Filed Vital Signs Vital Sign Reading Time Taken Comments Blood Pressure 133/63 03/01/2018 4:43 AM CDT Pulse 57 03/01/2018 4:43 AM CDT Temperature 37.1 ??C (98.7 ??F) 03/01/2018 4:43 AM CDT Respiratory Rate 87 03/01/2018 4:43 AM CDT Oxygen Saturation 100% 03/01/2018 4:43 AM CDT Inhaled Oxygen Concentration - - Weight 49.9 kg (110 lb) 03/01/2018 4:43 AM CDT Height 167.6 cm (5' 6) 03/01/2018 4:43 AM CDT Body Mass Index 17.75 03/01/2018 4:43 AM CDT documented in this encounter Discharge Instructions Discharge InstructionsQuincy Wilson MD - 03/01/2018 6:26 AM CDT Images from the original note were not included. Take the below medications as prescribed. New Prescriptions AZITHROMYCIN (ZITHROMAX Z-AQUILES) 250 MG TABLET Two tablets on the first day, then one tablet daily for the next 4 days HYDROXYZINE (ATARAX) 25 MG TABLET Take 1-2 tablets (25-50 mg) by mouth every 6 hours as needed for itching Scarlet Fever (Adult) Scarlet fever is an infection with streptococcal bacteria. These are the same bacteria that cause strep throat. It is spread on droplets that travel through the air when a person coughs. Symptoms include throat pain that is worse with swallowing. A rash may develop. The rash usually appears a few daysafter the sore throat. It looks like tiny raised pink dots with a rough feeling like sandpaper. You may also have headache, body aches, and a fever. Most often, antibiotics are used to treat the infection. You may start feeling better after a few days of treatment. The rash usually clears after 4 to 5 days. The skin may peel (like a bad sunburn) in1 to 2 weeks. Home care ?? Rest at home for at least the first few days. ?? Be sure to take the antibiotic medicines as directed until they are gone or the healthcare provider tells you to stop, even if you are feeling better. This is very important to prevent later problems from strep infection (such as heart or kidney disease). ?? Fever increases water loss from the body. Drink plenty of fluids. ?? Ask your healthcare provider before taking any kwyv-akp-hoizuna medicines. ?? Stay home from work or school until you have finished at least 24 hours two days of antibiotics and are feeling better. ?? Use throat lozenges as needed to help reduce throat pain. Gargling with warm salt water may also help. Dissolve 1/2 teaspoon of salt in 1 glass of hot water. Follow-up care Follow up with your healthcare provider or our staff as directed. When to seek medical advice Call your healthcare provider right away for any of the following: ?? Fever as directed by the healthcare provider ?? Throat pain or headache that is getting worse ?? Neck pain or stiffness ?? Dark purple rash ?? Blood in the urine ?? Joint pain or swelling Call 911 Call 911 if any of these occur: ?? Throat pain causing severe drooling, inability to swallow, or inability to open mouth wide ?? Trouble breathing ?? Unusual drowsiness or confusion Date Last Reviewed: 04/13/2015 ?? [id number] The [employer]. [address] [place] [address]. All rights reserved. This information is not intended as a substitute for professional medical care. Always follow your healthcare professional's instructions. documented in this encounter Medications at Time of Discharge Medication Sig Dispensed Refills Start Date End Date azithromycin (ZITHROMAX Two tablets on the 6 tablet 0 02/1703/06/2018 Z-AQUILES) 250 MG tablet first day, then one tablet daily for the next 4 days GABAPENTIN PO Take 300 mg by mouth [...] VITAMIN D, Take 5,000 Units by 0 01/29 /2019 CHOLECALCIFEROL, PO mouth daily documented as of this encounter ED Notes Alem Doyle RN - 03/01/2018 4:44 AM CDT Pt tto ER with c/o throat dryness and diff swallowing, pt also feels itchy all over, pt has had thisbefore unknown if allergic reaction took benadryl 0200 Quincy Wilson MD - 03/01/2018 4:41 AM CDT History Chief Complaint: Allergic Reaction HPI Destiney Cassidy is a 27 year old female who presents with concern for a possible allergic reaction.The patient states that 3 days ago she developed a diffuse rash initially on her bilateral upper arms that has since spread to her inner thighs, and chest. She states that now her throat feels scratchyand tight. The patient notes that it feels hard to to swallow and slightly short of breath. She has had slight nausea, but no vomiting. The patient has been taking benadryl and last took this at 0200. She denies any new exposures. She has never had symptoms like this in the past. She notes that she did have a mild intermittent headache yesterday, but notes that her symptoms have since resolved. The patient denies any fevers, chest pain, abdominal pain, urinary symptoms, weight loss, or night sweats.She denies any tick exposures. Allergies: Cefzil Ciprofloxacin Penicillin G Medications: Gabapentin Ibuprofen Magnesium Oxide Robaxin Probiotic Product Vitamin D Past Medical History: Anxiety DVT Insomnia Past Surgical History: Decompression lumbar minimally invasive Myringotomy Tonsillectomy [place] teeth Family History: History reviewed. No pertinent family history. Social History: Marital Status: Presents to the ED with Tobacco Use: Never Used Alcohol Use: No PCP: Justin Loya Review of Systems Constitutional: Negative for fever and unexpected weight change. HENT: Positive for trouble swallowing. Respiratory: Positive for shortness of breath. Cardiovascular: Negative for chest pain. Gastrointestinal: Negative for abdominal pain. Genitourinary: Negative for dysuria and hematuria. Skin: Positive for rash. Neurological: Negative for headaches. All other systems reviewed and are negative. Physical Exam First Vitals: BP: 133/63 Pulse: 57 Temp: 98.7 ??F (37.1 ??C) Resp: (!) 87 Height: 167.6 cm (5' 6) Weight: 49.9 kg (110 lb) SpO2: 100 % Physical Exam Constitutional: Well developed, nontox appearance Head: Atraumatic. Mouth/Throat: Oropharynx is moist. Papillitis noted to tongue Neck: no stridor, mild left cervical lymphadenopathy Eyes: no scleral icterus Cardiovascular: Regular bradycardia, 2+ bilat radial pulses Pulmonary/Chest: nml resp effort, Clear BS bilat Abdominal: ND, +BS, soft, NT, no rebound or guarding : no CVA tenderness bilat Ext: Warm, well perfused, no edema Neurological: A&O, symmetric facies, moves ext x4 Skin: Skin is warm and dry. Diffuse fine erythematous papular rash, sandpaper like in nature Psychiatric: Behavior is normal. Thought content normal. Nursing note and vitals reviewed. Emergency Department Course Laboratory: Rapid Strep Screen: Positive Interventions: (98) Atarax, 50 mg, PO Emergency Department Course: Nursing notes and vitals reviewed. (3783) I performed an exam of the patient as documented above. Rapid strep swab obtained. Findings and plan explained to the patient. Patient discharged home with instructions regarding supportive care, medications, and reasons to return. The importance of close follow-up was reviewed. I personally reviewed the laboratory results with the patient and answered all related questions prior to discharge. Impression & Plan Medical Decision Making: Destiney Cassidy is a 27 year old female who presents for evaluation of a rash. They also have a sore throat and clinical evidence of pharyngitis. The rapid strep test is positive. There is no clinicalevidence of peritonsillar abscess, retropharyngeal abscess, Lemierre's Syndrome, epiglottis, or Sesar's angina, meningitis, encephalitis. The patient's symptoms are consistent with streptococcal pharyngitis and resulting scarlet fever. I have recommended treatment with antibiotics and analgesics. Return if increasing pain, change in voice, neck pain, vomiting, fever, or shortness of breath. Recommendations given regarding follow up with primary care doctor and return to the emergency department as needed for new or worsening symptoms. Counseled on all results, disposition and diagnosis. Pt understanding and agreeable to plan. Patient discharged in stable condition. Diagnosis: ICD-10-CM 1. Scarlet fever A38.9 Disposition: discharged to home Discharge Medications: New Prescriptions AZITHROMYCIN (ZITHROMAX Z-AQUILES) 250 MG TABLET Two tablets on the first day, then one tablet daily for the next 4 days HYDROXYZINE (ATARAX) 25 MG TABLET Take 1-2 tablets (25-50 mg) by mouth every 6 hours as needed for itching ISonia am serving as a scribe on 03/01/2018 at 5:03 AM to personally document services performed by Dr. Wilson based on my observations and the provider's statements to me. 03/01/2018 [facility] EMERGENCY [facility]PART[facility] Quincy Wilson MD 03/01/18 1704 documented in this encounter Plan of Treatment Not on filedocumented as of this encounter Procedures Procedure Name Priority Date/Time Associated Diagnosis Comme nts RAPID STREP SCREEN STAT 03/01/2018 5:53 AM Res ults for this THROAT SWAB CDT procedure are i n the results section. documented in this encounter Results (ABNORMAL) Rapid strep screen (03/01/2018 5:53 AM CDT) Component Value Ref Test Analysis Performed At [facility] Range Method Time Signature Specimen Throat [facility] Rapid Strep A POSITIVE: Group 03/01/2018 [place] Screen A Streptococcal 6:09 AM CDT [facility] antigen [facility] by immunoassay. (A) Specimen Anatomical Collection Method Collection Time Receive d Time (Source) Location / / Volume Laterality Specimen from 03/01/2018 5:53 AM 03/01/20 5:54 throat CDT AM CDT (specimen) Quincy Wilson MD LAB - MICRO GENERAL ORDERABL ES Performing Organization Address City/State/ZIP Code Phon e Number [place] [address] [address] [place], [place] [address] [facility] [address] [place], [place] [address] [place] [address] documented in this encounter Visit Diagnoses Diagnosis Scarlet fever documented in this encounter Administered Medications Inactive Administered Medications - up to 3 most recent administrations Medication Order MAR Action Action Date Dose Rate Site hydrOXYzine (ATARAX) tablet 50 mg Given 03/01/2018 5:29 AM CDT 50 mg 50 mg, Oral, ONCE, On Thu03/01/18 at 0520, For 1 dose documented in this encounter Active and Recently Administered Medications Times are shown in CDT. Scheduled Medication Order 02/27/2018 02/28/2018 03/01/2018 hydrOXYzine (ATARAX) tablet 50 mg (COMPLETED) 0529 (Given - Provider: Nitesh Henderson RN) 50 mg, Oral, ONCE, Thu03/01/18 at 0520, For 1 dose predniSONE (DELTASONE) tablet 60 mg 0525 (Canceled Entry - Provider: Orders Generic Provider - Comment: Automatically canceled at discontinue of medication order) 60 mg, Oral, ONCE, Thu03/01/18 at 0525, For 1 dose documented in this encounter Additional Health Concerns Assessment Noted Time PHQ-9 Depression Total Score: 13 01/12/2018 7:12 AM CD T documented as of this encounter Care Teams Major Appliance Assembly Supervisor Relationship Specialty Start Date End Date Justin Loya MD PCP - General Family Practice 02/19/11 [facility] [address] [place] [phone] Silas Santiago MD MD Pain Clinic 11/29/13 [facility] [address] [place] [address] Stewart Munguia, RN Registered Nurse Neurology 10/13/17 07/30/18 documented as of this encounter
--- OUTSIDE RECORDS SUMMARY | 2022-06-23 17:43 | XMS_ITS | Encounter Summary ---
:1990 Author Organization [place] Address [address] [facility] [place] [address] Care Team Providers Name Role Phone Justin Loya MD Primary Care Provider Silas Santiago MD Unavailable Encounter Details Date Type Department Care Team Description 03/23/2019 Travel Social History Tobacco Use Types Packs/Day [...] documented as of this encounter Care Teams Straightedge Machine Operator Helper Relationship Specialty Start Date End Date Justin Loya MD PCP - General Family Practice 02/19/11 [facility] [address] [place] [phone] Silas Santiago MD MD Pain Clinic 11/29/13 [facility] [address] [place], [place] [phone] documented as of this encounter
--- OUTSIDE RECORDS SUMMARY | 2022-06-23 17:43 | XMS_ITS | Encounter Summary ---
:1990 Author Organization [place] Address [address] [facility] [place] [address] Care Team Providers Name Role Phone Justin Loya MD Primary Care Provider Silas Santiago MD Unavailable Encounter Details Date Type Department Care Team Description 11/22/2018 Travel Social History Tobacco Use Types Packs/Day [...] documented as of this encounter Care Teams Telephone Switchboard Operator Relationship Specialty Start Date End Date Justin Loya MD PCP - General Family Practice 02/19/11 [facility] [address] [place] [phone] Silas Santiago MD MD Pain Clinic 11/29/13 [facility] [address] [place], [place] [phone] documented as of this encounter
--- OUTSIDE RECORDS SUMMARY | 2022-06-23 17:44 | XMS_ITS | Encounter Summary ---
:1990 Author Organization [place] Address [address] [facility] [place] [address] Care Team Providers Name Role Phone Justin Loya MD Primary Care Provider Silas Santiago MD Unavailable Reason for Visit Reason Comments Back Pain Encounter Details Date Type Department Care Team Description 09/20/2017 [facility] Silas Valdez MD Emergency Dept EMERGENCY PHYSICIAN HELIO Dawson [address] Rebel [facility] [address] [place] [address] [place] [address] [phone] (Wo rk) Social History Tobacco Use Types Packs/Day Years Used Date Smoking Tobacco: Never Smokeless Tobacco: Never Alcohol Use Standard Drinks/Week Comments No 0 (1 standard drink = 0.6 oz pure alcoho l) Sex Assigned at Date Recorded Not on file documented as of this encounter Last Filed Vital Signs Vital Sign Reading Time Taken Comments Blood Pressure 123/84 09/20/2017 5:14 PM NEWS TECHNICAL DIRECTOR Pulse - - Temperature 36.7 ??C (98 ??F) 09/20/2017 5:14 PM NEWS TECHNICAL DIRECTOR Respiratory Rate 20 09/20/2017 5:14 PM NEWS TECHNICAL DIRECTOR Oxygen Saturation 99% 09/20/2017 5:14 PM NEWS TECHNICAL DIRECTOR Inhaled Oxygen Concentration - - Weight 52.2 kg (115 lb) 09/20/2017 5:14 PM NEWS TECHNICAL DIRECTOR Height 167.6 cm (5' 6) 09/20/2017 5:14 PM NEWS TECHNICAL DIRECTOR Body Mass Index 18.56 09/20/2017 5:14 PM NEWS TECHNICAL DIRECTOR documented in this encounter Medications at Time of Discharge Medication Sig Dispensed Refills Start Date End Date diazepam (VALIUM) 5 MG Take 1 tablet by 30 tablet 0 011 10/12/2017 tabletIndications: Lumbar mouth every 6 hours radiculopathy as needed (spasm). magnesium citrate solution Take 148 mLs by 296 mL 0 01/201810/12/2017 mouth every 8 hours as needed for other methocarbamol (ROBAXIN) Take 2 tablets 30 tablet 0 09/11/19 18 08/17/2018 500 MG tablet (1,000 mg) by mouth 3 times daily as needed Probiotic Product 0 019 (PROBIOTIC ADVANCED PO) documented as of this encounter ED Notes Nancy Kelsey, RN - 09/20/2017 5:16 PM CST Pt had MRI done yesterday and has not gotten results. She is now having burning pain in inner thighsand feet. No new injury. She had back surgery 5 years ago. TECHNICAL DIRECTOR documented in this encounter Plan of Treatment Not on filedocumented as of this encounter Visit Diagnoses Not on filedocumented in this encounter Care Teams Public Works Supervisor Relationship Specialty Start Date End Date Justin Loya MD PCP - General Family Practice 02/19/11 [facility] [address] [place] [phone] Silas Santiago MD MD Pain Clinic 11/29/13 [facility] [address] [facility] [id number] documented as of this encounter
--- OUTSIDE RECORDS SUMMARY | 2022-06-23 17:44 | XMS_ITS | Encounter Summary ---
:1990 Author Organization [place] Address [address] [place] [address]. [place] [address] Care Team Providers Name Role Phone Justin Loya MD Primary Care Provider Silas Santiago MD Unavailable Stewart Munguia RN Unavailable Encounter Details Date Type Department Care Team Description 10/09/2017 Medical Correspondence [facility] Scan, CLINIC REFERRAL Health Info Mgmt Non-Provider [facility] [address] [place] [phone] Social History Tobacco Use Types Packs/Day [...] on filedocumented in this encounter Care Teams Handy Worker Relationship Specialty Start Date End Date Justin Loya MD PCP - General Family Practice 02/19/11 [facility] [address] [place] [address] Silas Santiago MD MD Pain Clinic 5/13/14 [facility] [address] [facility] [place] [address] Stewart Munguia, RN Registered Nurse Neurology 10/13/17 07/30/18 documented as of this encounter
--- OUTSIDE RECORDS SUMMARY | 2022-06-23 17:44 | XMS_ITS | Encounter Summary ---
:1990 Author Organization [place] Address [address] [place] [address] Care Team Providers Name Role Phone Justin Loya MD Primary Care Provider Silas Santiago MD Unavailable Reason for Visit (Routine) - Closed Specialty Diagnoses / Procedures Referred By Contact Refer red To Contact Radiology / Diagnoses WRITTEN ORDER, Elizabeth [phone] Ultrasound [facility] Radiology. Procedures US VENOUS [address] [place] [address] Phone: Fax: Referral ID Status Reason Start Date Expiration Date Visits Requ ested Visits Authorized [id number] Closed 07/03/2017 07/03/2018 1 1 Encounter Details Date Type Department Care Team Description 07/03/2017 Hospital Encounter [facility] Johan Pollard Deep vein thrombosis [facility] Specialty MD Ahmet (DVT) of left [facility] [place]COLOG[place] extremity, [address] [place] [address] chronicity, [place], [place] unspecified vein (H) [phone] Social History Tobacco Use Types Packs/Day Years [...] every 6 hours radiculopathy as needed (spasm). rivaroxaban ANTICOAGULANT Take 1 tablet (15 42 tablet 0 08/18/2017 (XARELTO) 15 MG TABS mg) by mouth 2 tablet times daily (with meals) for 21 days documented as of this encounter Plan of Treatment Not on filedocumented as of this encounter Procedures Procedure Name Priority Date/Time Associated Diagnosis Comme nts US UPPER EXTREMITY Routine 07/03/2017 4:59 PM Deep vein thromb osis Results for this VENOUS DUPLEX LEFT SHUTTLE REPAIRER (DVT) of left upper pr ocedure are in extremity, the results unspecified section. chronicity, unspecified vein (H) documented in this encounter Results US Upper Extremity Venous Duplex Left (07/03/2017 4:59 PM SHUTTLE REPAIRER) Anatomical Region Laterality Modality Extremity Ultrasound Specimen (Source) Anatomical Location Collection Method / Collectio n Time Received Time / Laterality Volume Impressions 07/03/2017 5:54 PM SHUTTLE REPAIRER IMPRESSION: 1. Small focal nonocclusive thrombus per sists in the left internal jugular vein, though improved in appeara nce. 2. No new or occlusive deep venous throm bosis in the left upper extremity. GONZALES SALAZAR MD Narrative 07/03/2017 5:54 PM SHUTTLE REPAIRER LEFT UPPER EXTREMITY VENOUS DUPLEX ULTRASOUND ??07/03/2017 4:59 PM HISTORY: Deep vein thrombosis of left up per extremity, unspecified chronicity, unspecified vein (H). COMPARISON: May 20, 2017 TECHNIQUE: Color Doppler and spectral wa veform analysis performed throughout the deep veins of the left up per extremity. FINDINGS: Nonocclusive small focus of th rombus noted in the left internal jugular vein, diminished in siz e relative to previous exam. The subclavian, axillary, brachial veins demonstrate normal blood flow, compression (where applicable), an d augmentation. Basilic, cephalic, ulnar, and radial veins patent . Procedure Note Gonzales Salazar MD - 07/03/2017 LEFT UPPER EXTREMITY VENOUS DUPLEX ULTRA SOUND 07/03/2017 4:59 PM HISTORY: Deep vein thrombosis of left up per extremity, unspecified chronicity, unspecified vein (H). COMPARISON: May 20, 2017 TECHNIQUE: Color Doppler and spectral wa veform analysis performed throughout the deep veins of the left up per extremity. FINDINGS: Nonocclusive small focus of th rombus noted in the left internal jugular vein, diminished in siz e relative to previous exam. The subclavian, axillary, brachial veins demonstrate normal blood flow, compression (where applicable), an d augmentation. Basilic, cephalic, ulnar, and radial veins patent . IMPRESSION: 1. Small focal nonocclusive thrombus per sists in the left internal jugular vein, though improved in appeara nce. 2. No new or occlusive deep venous throm bosis in the left upper extremity. GONZALES SALAZAR MD Johan Pollard MD [facility] ORDERABLES documented in this encounter Visit Diagnoses Diagnosis Deep vein thrombosis (DVT) of left upper extremity, unspecified chronicity, unspecified vein (H) documented in this encounter Care Teams Machine Printer Hose Relationship Specialty Start Date End Date Justin Loya MD PCP - General Family Practice 02/19/11 [facility] [address] [place] [phone] Silas Santiago MD MD Pain Clinic 11/29/13 [facility] [address] [place] [address] documented as of this encounter
--- OUTSIDE RECORDS SUMMARY | 2022-06-23 17:44 | XMS_ITS | Encounter Summary ---
:1990 Author Organization [place] Address [address] [facility] [place] [address] Care Team Providers Name Role Phone Justin Loya MD Primary Care Provider Silas Santiago MD Unavailable Reason for Visit Reason Comments Constipation Encounter Details Date Type Department Care Team Description 07/26/2017 Emergency [facility] Diaz Lopez [facility] Emergency GeneMD unspecified Dept EMERGENCY PHYSICIANS constipation type [address] [place], [place] [address] [phone] [place] [address] [place], [place] [phone] (Wo rk) Social History Tobacco Use Types Packs/Day Years Used Date Smoking Tobacco: Never Smokeless Tobacco: Never Alcohol Use Standard Drinks/Week Comments No 0 (1 standard drink = 0.6 oz pure alcoho l) Sex Assigned at Date Recorded Not on file documented as of this encounter Last Filed Vital Signs Vital Sign Reading Time Taken Comments Blood Pressure 125/84 07/26/2017 1:22 PM [employer] Pulse 99 07/26/2017 1:22 PM [employer] Temperature 36.9 ??C (98.4 ??F) 07/26/2017 1:22 PM [employer] Respiratory Rate 18 07/26/2017 1:22 PM [employer] Oxygen Saturation 99% 07/26/2017 1:22 PM [employer] Inhaled Oxygen Concentration - - Weight - - Height - - Body Mass Index - - documented in this encounter Discharge Instructions AttachmentsThe following attachments cannot be sent through Care Everywhere. CONSTIPATION (ADULT) (TURKISH)documented in this encounter Medications at Time of Discharge Medication Sig Dispensed Refills Start Date End Date polyethylene glycol Take 17 g (1 527 g 0 07/26/201712/2017 (MIRALAX) powder capful) by mouth daily diazepam (VALIUM) 5 MG Take 1 tablet by 30 tablet 0 011 10/12/2017 tabletIndications: Lumbar mouth every 6 hours radiculopathy as needed (spasm). magnesium citrate solution Take 148 mLs by 296 mL 0 01/201810/12/2017 mouth every 8 hours as needed for other rivaroxaban ANTICOAGULANT Take 1 tablet (15 42 tablet 0 08/18/2017 (XARELTO) 15 MG TABS mg) by mouth 2 tablet times daily (with meals) for 21 days documented as of this encounter ED Notes Valery Bowens RN - 07/26/2017 1:25 PM CST Pt presents for evaluation of abdominal pain and possible constipation. States she was treated with magnesium citrate on Thursday for constipation. Reports she had a good bowel movement after the mag citrate, however since then has only had small hard stools and only once a day. Pt states she's having low abdominal pain again. Attempted a fleets enema at home with no relief. [employer] Diaz Lopez MD - 07/26/2017 1:17 PM CST History Chief Complaint: Abdominal pain, constipation HPI Destiney Cassidy is a 26 year old female with a history of DVT and anxiety who presents to the emergency department with her for evaluation of abdominal pain and constipation. Of note, the patient reports being sick in the weeks prior to the onset of the current constipation and the patient thinks this could be contributing to her current condition. For the past week, the patient reports abdominal pain and constipation. She was evaluated here in the ED 5 days ago, where she was treated with 3/4 a bottle of magnesium citrate. She reports having a bowel movement with that. However since then,she reports having small, hard stools once a day. She states she is trying to be active and drink lots of fluids to get things moving but denies relief. She states she has cramping and feels like she needs to have diarrhea but noting comes of her straining when she attempts to have a bowel movement. Then today, she reports trying an enema with no relief which prompted the patient to seek evaluation here in the emergency department. Here, she denies using laxatives throughout the week. She reports slight anal discomfort secondary to the enema at home this morning. Allergies: Cefzil Ciprofloxacin Penicillin Medications: Xarelto Valium Past Medical History: Anxiety Back pain DVT Insomnia Past Surgical History: Lumbar decompression Myringotomy Tonsillectomy [place] teeth removal Family History: No past pertinent family history. Social History: Negative for tobacco use. Negative for alcohol use. Patient presents with her Marital Status: Review of Systems Gastrointestinal: Positive for abdominal pain and constipation. All other systems reviewed and are negative. Physical Exam First Vitals: BP: 125/84 Pulse: 99 Temp: 98.4 ??F (36.9 ??C) Resp: 18 SpO2: 99 % Physical Exam Constitutional: Appears well-developed and very slender. Alert. Conversant. Non toxic. HENT: Head: Atraumatic. [...] Abdominal: Soft. Bowel sounds normal. No distension. Mild fullness I left abdomen c/w stool, but no other discrete mass or HSM. No tenderness. No rebound. No guarding. No CVA tenderness Rectal: deffered Musculoskeletal: RUE: Normal range of motion. No [...] mood. Normal affect. Emergency Department Course Imaging: Radiographic findings were communicated with the patient who voiced understanding of the findings. XR Abdomen 2 views: No evidence for any bowel obstruction. The gas pattern is normal. No free air. No abnormal calcifications. There is a moderate amount of stool throughout the colon.. As per radiology. Emergency Department Course: 1412 Nursing notes and vitals reviewed. I performed an exam of the patient as documented above. IV inserted. Medicine administered as documented above. Blood drawn. This was sent to the lab for further testing, results above. The patient was sent for an abdomen xray while in the emergency department, findings above. 1450 I rechecked the patient and discussed the results of her workup thus far. Findings and plan explained to the Patient and spouse. Patient discharged home with instructions regarding supportive care, medications, and reasons to return. The importance of close follow-up was reviewed. The patient was prescribed magnesium citrate and Miralax. I personally reviewed the laboratory results with the Patient and spouse and answered all related questions prior to discharge. Impression & Plan Medical Decision Making: Destiney Cassidy is a 26 year old female presented to the Emergency Department with concern for constipation, with some left-sided abdominal pain. The differential diagnosis of abdominal pain includes:Appendicitis, Bowel Obstruction, Ulcer, Ischemia, Cholecystitis, Diverticulitis, Pancreatitis, UTI, kidney stone, Enteritis/Colitis, amongst many other etiologies. However with the patient's reported history of constipation, recent laxative use, then decrease in stool output, she strongly suspects herpain is due to obstipation. We considered workup with labs and/or CT to look for other causes of pain, but the patient and I agree that radiation exposure with CT more likely be harmful with increased cancer risk than diagnostic of any emergent condition. We agreed with the plan to repeat a plain filmto see if she still has constipation. She is not actually having any abdominal tenderness while herein the ER. Plain films were obtained in the disc show a fair amount of stool still present in the colon. No life threatening cause or need for emergent surgery or hospital admission is detected today. Therefore we will hold off on labs or advanced imaging for now. The patient was unsure about what sort of bowel regimen to pursue. I recommended decreasing increasing water, vegetables and high-fiber diet. We alsorecommended that she go back on magnesium citrate today drinking half a bottle when she gets home and the other half in 6 hours if no BM. Additionally, start MiraLAX 1 capful once to twice daily to help achieve regular soft stools. Additionally I recommended outpatient follow-up with GI to evaluate for possible IBS or other causes of constipation for her. Finally, we discussed that other possible causes of her abdominal pain could be present, and were not pursuing workup for them today, but if she has worsening symptoms or any change or concern, she will return to the ER. Diagnosis: ICD-10-CM 1. Constipation, unspecified constipation type K59.00 Disposition: discharged to home with her Discharge Medications: New Prescriptions MAGNESIUM CITRATE SOLUTION Take 148 mLs by mouth every 8 hours as needed for other POLYETHYLENE GLYCOL (MIRALAX) POWDER Take 17 g (1 capful) by mouth daily IJaz, am serving as a scribe on 07/26/2017 at 2:01 PM to personally document services performed by Diaz Lopez MD based on my observations and the provider's statements to me. Jaz Rosen 07/26/2017 [facility] EMERGENCY DEPARTMENT Diaz Lopez MD 07/27/17 [address] [employer] documented in this encounter Plan of Treatment Not on filedocumented as of this encounter Procedures Procedure Name Priority Date/Time Associated Diagnosis Comme nts XR ABDOMEN 2 VIEWS STAT 07/26/2017 2:27 PM Res ults for this [employer] procedure are i n the results section. documented in this encounter Results XR Abdomen 2 Views (07/26/2017 2:27 PM [employer]) Anatomical Region Laterality Modality Abdomen/Pelvis Digital Radiography Specimen (Source) Anatomical Location Collection Method / Collectio n Time Received Time / Laterality Volume Impressions 07/26/2017 3:19 PM [employer] IMPRESSION: ??No evidence for any bowel obstruction.. DEMETRIO WINTER MD Narrative 07/26/2017 3:19 PM [employer] XR ABDOMEN 2 VW ?? 07/26/2017 2:27 PM ?? HISTORY: ??abd pain; COMPARISON: Film dated FINDINGS: The gas pattern is normal. No free air. No abnormal calcifications. There is a moderate amou nt of stool throughout the colon. Procedure Note Justin Winter MD - 07/26/2017For matting of this note might be different from the original. XR ABDOMEN 2 VW 07/26/2017 2:27 PM HISTORY: abd pain; COMPARISON: Film dated FINDINGS: The gas pattern is normal. No free air. No abnormal calcifications. There is a moderate amou nt of stool throughout the colon. IMPRESSION: No evidence for any bowel ob struction.. DEMETRIO WINTER MD Diaz Lopez MD IMG DIAGNOSTIC IMAGING ORDER ANGELES documented in this encounter Visit Diagnoses Diagnosis Constipation, unspecified constipation t ype documented in this encounter Care Teams Change Attendant Relationship Specialty Start Date End Date Justin Loya MD PCP - General Family Practice 02/19/11 [facility] [address] [place] [phone] Silas Santiago MD MD Pain Clinic 11/29/13 [facility] [address] [place] [address] documented as of this encounter
--- OUTSIDE RECORDS SUMMARY | 2022-06-23 17:44 | XMS_ITS | Encounter Summary ---
:1990 Author Organization [place] Address [address] [place] [address] Care Team Providers Name Role Phone Justin Loya MD Primary Care Provider Silas Santiago MD Unavailable Reason for Visit Reason Comments Leg Pain Encounter Details Date Type Department Care Team Description 09/11/2017 Emergency [facility] Quincy Orozco [facility] te midline low back pain with bilateral sciatica; [facility] Emergency MD Paresthesias; Dept [facility] Vaginitis and vulvovaginitis [address] [place] [address] [facility] [address] [phone] [place] [address] (Wo rk) Social History Tobacco Use Types Packs/Day Years Used Date Smoking Tobacco: Never Smokeless Tobacco: Never Alcohol Use Standard Drinks/Week Comments No 0 (1 standard drink = 0.6 oz pure alcoho l) Sex Assigned at Date Recorded Not on file documented as of this encounter Last Filed Vital Signs Vital Sign Reading Time Taken Comments Blood Pressure 115/77 09/11/2017 5:51 PM [employer] Pulse 99 09/11/2017 3:17 PM [employer] Temperature 36.7 ??C (98 ??F) 09/11/2017 3:17 PM [employer] Respiratory Rate 16 09/11/2017 3:17 PM [employer] Oxygen Saturation 98% 09/11/2017 5:52 PM [employer] Inhaled Oxygen Concentration - - Weight - - Height - - Body Mass Index - - documented in this encounter Discharge Instructions Discharge InstructionsQuincy Orozco MD - 09/11/2017 5:34 PM [employer] Discharge Instructions Back Pain You were seen today for back pain. Back pain can have many causes, but most will get better without surgery or other specific treatment. Sometimes there is a herniated (???slipped?? ) disc. We don???t usually do MRI scans to look for these right away, since most herniated discs will get better on their own with time. Today, we did not find any evidence that your back pain was caused by a serious condition, such as an infection, fracture, or tumor. However, sometimes symptoms develop over time and cannot be found during an emergency visit, so it is very important that you follow up with your primarydoctor. Return to the Emergency Department if: ??? You develop a fever with your back pain. ??? You have weakness or change in sensation in one or both legs. ??? You lose control of your bowels or bladder, or can???t empty your bladder. ??? Your pain gets much worse. Follow-up with your doctor: ??? Unless your pain has completely gone away, please make an appointment with your doctor within one week. You may need further management of your back pain, such as more pain medication, imaging suchas an X-ray or MRI, or physical therapy. What can I do to help myself? Remain Active -- People are often afraid that they will hurt their back further or delay recovery by remaining active, but this is one of the best things you can do for your back. In fact, prolonged bed rest is not recommended. Studies have shown that people with low back pain recover faster when they remain active. Movement helps to bring blood flow to the muscles and relieve muscle spasms as well as preventing loss of muscle strength. ??? Heat -- Using a heating pad can help with low back pain during the first few weeks. Do not sleepwith a heating pad, as you can be burned. ??? Pain medications - You may take a pain medication such as Tylenol?? (acetaminophen), Advil??, Nuprin?? (ibuprofen) or Aleve?? (naproxen). If you have been given a narcotic such as Vicodin?? (hydrocodone with acetaminophen), Percocet?? (oxycodone with acetaminophen), codeine, or a muscle relaxant such as Flexeril?? (cyclobenzaprine) or Soma?? (carisoprodol), do not drive for four hours after you have taken it. If the narcotic contains Tylenol?? (acetaminophen), do not take Tylenol?? with it. All narcotics will cause constipation, so eat a high fiber diet. If you were given a prescription for [...] contain Tylenol?? (acetaminophen), including Vicodin??, Tylenol #3??, [place]??, Lortab??, and Percocet??. You should not take [...] if there is anything that worries you. [employer] documented in this encounter Medications at Time of Discharge Medication Sig Dispensed Refills Start Date End Date fluconazole (DIFLUCAN) 150 Take 1 tablet (150 1 tablet 0 0 09/11/2017 09/11/2017 MG tablet mg) by mouth once for 1 dose diazepam (VALIUM) 5 MG Take 1 tablet [...] documented as of this encounter ED Notes Meche Rose RN - 09/11/2017 3:19 PM CST Pt c/o burning sensation in her back and vagina, states pain started a few days ago after she applied a topical herbal remedy to her back that she states passes through the brain blood barrier. Pt denies injury, states she has had back surgery in the past but has not had problems from it since. Pt alert, oriented x3. ABCs intact [employer] Quincy Orozco MD - 09/11/2017 3:05 PM CST History Chief Complaint: Leg Pain HPI Destiney Cassidy is a 26 year old female with a history of low back pain, anxiety, and DVT who presents with leg pain and back pain. The patient states she also has had issues with trigeminal neuralgiapain, so she saw a homeopathic specialist who gave her Mag Phos pellets, which seemed to take her pain away for a while. The patient reports she recently had a resurgence of the back pain as well as bad pains in her feet. She states this felt similar to her previous pains, but also had shooting pains down her legs ending at her knees. The patient notes she took her Mag Phos pellets and applied essential oils with DMSO on her neck and feet to help alleviate the pain on Thursday, 5 days ago, with some relief. However, 2 days ago, she states she began to notice a constant burning sensation in her bladder and groin area as well as throughout her skin. The patient denies any pain with urination, vaginal discharge, or recent falls. The patient came to the ED today because she is worried about an inflamedspinal cord, meningitis, MS, and arachnoiditis. Allergies: Cefzil: hives Ciprofloxacin Penicillin: hives Medications: Probiotic Magnesium citrate Valium Past Medical History: Anxiety Back pain Deep venous thrombosis Insomnia Past Surgical History: Decompression lumbar minimally invasive one level Myringotomy, insert tube bilateral Tonsillectomy [place] teeth extraction Family History: History reviewed. No pertinent family history. Social History: Smoking status: No Alcohol use: No PCP: Justin Loya Presents to the ED with her spouse Marital Status: [2] Review of Systems Constitutional: Positive for chills. Negative for fever. Genitourinary: Negative for dysuria and vaginal discharge. Musculoskeletal: Positive for back pain. Skin: Negative for wound. Burning sensation across skin All other systems reviewed and are negative. Physical Exam Patient Vitals for the past 24 hrs: BP Temp Pulse Heart Rate Resp SpO2 09/11/17 1517 150/87 98 ??F (36.7 ??C) 99 99 16 99 % Physical Exam General: The patient is alert, in no respiratory distress. HENT: Mucous membranes moist. Cardiovascular: Regular rate and rhythm. Good pulses in all four extremities. Normal capillary refill and skin turgor. Respiratory: Lungs are clear. No nasal flaring. No retractions. No wheezing, no crackles. Gastrointestinal: Abdomen soft. No guarding, no rebound. No palpable hernias. Musculoskeletal: No gross deformity. Skin: No rashes [...] lower extremity swelling. Psychiatric: The patient is tearful. Emergency Department Course Laboratory: UA: Bacteria few, mucous present, o/w negative HCG qual: Negative CBC: WNL (WBC 6.5, HGB 13.2, PLT 238) BMP: Glucose 101 (H), BUN 6 (L), o/w WNL (Creatinine 0.68) Emergency Department Course: Past medical records, nursing notes, and vitals reviewed. 1610: I performed an exam of the patient and obtained history, as documented above. IV inserted and blood drawn. UA collected, results above. 1712: I rechecked the patient. Explained findings to the patient and her spouse. I rechecked the patient. Findings and plan explained to the patient. Patient discharged home with instructions regarding supportive care, medications, and reasons to return. The importance of close follow-up was reviewed. Impression & Plan Medical Decision Making: Destiney Cassidy is a 26 year old female who presents to the ED for evaluation of low back pain radiating over the anterior portion of her thighs and burning over her feet. The fact that she has had a microdiscectomy with pain in similar locations in her back would make me suspicious that her back is the cause behind this. The patient was worried about lupus as well as other conditions. The patient, however, had no signs of any weakness or focal symptoms. We discussed doing laboratory studies to look for any signs of diabetes. Her white count was normal. She did complain of some vaginal irritation. However, her urine showed bacteria and mucous. Therefore, I started her on Fluconazole for this in case it is a vaginitis. I did culture her urine. She has no urinary symptoms. The location of the burning over her anterior thighs is consistent with L4 and could be a disc irritation and sciatica from herback pains. There is no indication for imaging at this time. She was referred to a primary care doctor. We discussed if lupus was a concern, she should follow-up with a inside barrel lathe operator. She was discharged home in good condition. Diagnosis: ICD-10-CM 1. Acute midline low back pain with bilateral sciatica M54.42 M54.41 2. Paresthesias R20.2 3. Vaginitis and vulvovaginitis N76.0 Disposition: Discharged to home Discharge Medications: New Prescriptions FLUCONAZOLE (DIFLUCAN) 150 MG TABLET Take 1 tablet (150 mg) by mouth once for 1 dose METHOCARBAMOL (ROBAXIN) 500 MG TABLET Take 2 tablets (1,000 mg) by mouth 3 times daily as needed Sugey Marley 09/11/2017 [facility] EM[facility]GENC[facility] ISugey, am serving as a scribe at 4:10 PM on 09/11/2017 to document services personally performed by Quincy Orozco MD based on my observations and the provider's statements to me. Quincy Orozco MD 09/11/17 418 [employer] documented in this encounter Plan of Treatment Not on filedocumented as of this encounter Procedures Procedure Name Priority Date/Time Associated Comments Diagnosis BASIC METABOLIC PANEL STAT 09/11/2017 4:30 PM Results for this [employer] procedure are i n the results section. CBC WITH PLATELETS STAT 09/11/2017 4:30 PM Res ults for this [employer] procedure are i n the results section. HCG QUALITATIVE URINE STAT 09/11/2017 4:23 PM Results for this [employer] procedure are i n the results section. ROUTINE UA WITH STAT 09/11/2017 4:23 PM Result s for this MICROSCOPIC [employer] procedure are i n the results section. URINE CULTURE Routine 09/11/2017 4:23 PM Acute midline low Res ults for this [employer] back pain with procedure are in bilateral sciatica the resul ts section. documented in this encounter Results CBC (platelets, no diff) (09/11/2017 4:30 PM [employer] SUPERVISOR) athologist Signature WBC 6.5 4.0 - 11.0 09/11/2017 [facility] 10e9/L 4:36 PM [facility] RBC Count 4.51 3.8 - 5.2 09/11/2017 [facility] 10e12/L 4:36 PM [facility] Hemoglobin 13.2 11.7 - 09/11/2017 [facility] 15.7 g/dL 4:36 PM [facility] Hematocrit 39.8 35.0 - 09/11/2017 [facility] 47.0 % 4:36 PM [facility] MCV 88 78 - 100 09/11/2017 [facility] fl 4:36 PM [facility] MCH 29.3 26.5 - 09/11/2017 [facility] 33.0 pg 4:36 PM [facility] MCHC 33.2 31.5 - 09/11/2017 [facility] 36.5 g/dL 4:36 PM [facility] RDW 11.9 10.0 - 09/11/2017 [facility] 15.0 % 4:36 PM [facility] Platelet Count 238 150 - 450 09/11/2017 [facility] 10e9/L 4:36 PM [facility] Specimen Anatomical Collection Method Collection Time Receive d Time (Source) Location / / Volume Laterality Blood specimen 09/11/2017 4:30 PM 018 4:33 (specimen) [employer] PM [employer] SUPER[employer]OR Quincy Orozco MD LAB - BLOOD ORDERABLES Performing Organization Address City/State/ZIP Code Phon e Number [facility] [address], [place] [address] [facility] [address], [place] [address], [facility] [phone] (ABNORMAL) Basic metabolic panel (09/11/2017 4:30 PM [employer]PERVISOR) athologist Signature Sodium 138 133 - 144 09/11/2017 [facility] mmol/L 4:49 PM [facility] Potassium 3.5 3.4 - 5.3 09/11/2017 [facility] mmol/L 4:49 PM [facility] Chloride 106 94 - 109 09/11/2017 [facility] mmol/L 4:49 PM [facility] Carbon Dioxide 27 20 - 32 09/11/2017 [facility] mmol/L 4:49 PM [facility] Anion Gap 5 3 - 14 09/11/2017 [facility] mmol/L 4:49 PM [facility] Glucose 101 (H) 70 - 99 09/11/2017 [facility] mg/dL 4:49 PM [facility] Urea Nitrogen 6 (L) 7 - 30 09/11/2017 [facility] mg/dL 4:49 PM [facility] Creatinine 0.68 0.52 - 09/11/2017 [facility] 1.04 mg/dL 4:49 PM [facility] GFR Estimate >90 >60 09/11/2017 [facility] mL/min/1.7 4:[address] Comment: Non GFR Calc GFR Estimate If >90 >60 mL/min/1.7m2 09/11/2017 4:[address] [facility] Comment: GFR Calc Calcium 9.0 8.5 - 10.1 mg/dL 09/11/2017 4:49 PM [facility] Specimen Anatomical Collection Method Collection Time Receive d Time (Source) Location / / Volume Laterality Blood specimen 09/11/2017 4:30 PM 018 4:33 (specimen) [employer]PER[employer] PM [employer] SUPER[employer]OR Quincy Orozco MD LAB - BLOOD ORDERABLES Performing Organization Address City/State/ZIP Code Phon e Number [facility] [address], [place] [address] [facility] [address], [place] [address] [phone] Urine Culture Aerobic Bacterial (09/11/2017 4:23 PM [employer]PER[employer]) Component Value Ref Test Analysis Performed At [facility] gist Range Method Time Signature Specimen Midstream Urine [facility] Special Specimen 09/11/2017 [facility] received in 9:45 PM [facility] preservative [facility] Culture Micro No growth 09/13/2017 [facility] 5:47 AM [facility] Specimen (Source) Anatomical Collection Method Collection Time Re ceived Time Location / / Volume Laterality Examination of 09/11/2017 4:23 09/11/2017 5:44 midstream urine PM [employer] PM [employer] specimen (procedure) Quincy Orozco MD LAB - MICRO GENERAL ORDERABL ES Performing Organization Address City/State/ZIP Code Phon e Number [facility] [address] [place] [address] [place] HCG qualitative urine (09/11/2017 4:23 PM [employer] SUPERVISOR) P athologist Signature HCG Qual Urine Negative NEG^Negati 09/11/2017 [facility] ve 4:41 PM [facility] Comment: This test is for screening purposes. ??R esults should be interpreted along with the clinical picture. ??Confirmation te sting is available if warranted by ordering [id number], HCG Quantitative Pregna ncy. Specimen Anatomical Collection Method Collection Time Receive d Time (Source) Location / / Volume Laterality Urine specimen URINE SPECIMEN 09/11/2017 4:23 PM 09/11 4:33 (specimen) OBTAINED BY CLEAN [employer] SUPERVISOR PM [employer] SUPERVISOR CATCH PROCEDURE / Unknown Quincy Orozco MD LAB - URINE ORDERABLES Performing Organization Address City/[facility]/ZIP Code Phon e Number [place] [address] [address] [place] [address] [facility] [address] [phone] (ABNORMAL) UA with Microscopic (09/11/2017 4:23 PM [employer] SUPERVISOR) Patholo gist Method Time Signature Color Urine Straw 09/11/2017 [facility] 4:41 PM [facility] Appearance Urine Clear 09/11/2017 [facility] 4:41 PM [facility] Glucose Urine Negative NEG^Negat 09/11/2017 [facility] stephanie mg/dL 4:41 PM [facility] Bilirubin Urine Negative NEG^Negat 09/11/2017 [facility] stephanie 4:41 PM [facility] Ketones Urine Negative NEG^Negat 09/11/2017 [facility] stephanie mg/dL 4:41 PM [facility] Specific [place] 1.005 1.003 - 09/11/2017 [facility] Urine 1.035 4:41 PM [facility] Blood Urine Negative NEG^Negat 09/11/2017 [facility] stephanie 4:41 PM [facility] pH Urine 5.0 5.0 - 7.0 09/11/2017 [facility] pH 4:41 PM [facility] Protein Albumin Negative NEG^Negat 09/11/2017 [facility] Urine stephanie mg/dL 4:41 PM [facility] Urobilinogen 0.0 0.0 - 2.0 09/11/2017 [facility] mg/dL mg/dL 4:41 PM [facility] Nitrite Urine Negative NEG^Negat 09/11/2017 [facility] stephanie 4:41 PM [facility] Leukocyte Negative NEG^Negat 09/11/2017 [facility] Esterase Urine stephanie 4:41 PM [facility] Source Midstream 09/11/2017 [facility] Urine 4:34 PM [facility] WBC Urine <1 0 - 2 09/11/2017 [facility] /HPF 4:41 PM [facility] RBC Urine <1 0 - 2 09/11/2017 [facility] /HPF 4:41 PM [facility] Bacteria Urine Few (A) NEG^Negat 09/11/2017 [facility] stephanie /HPF 4:41 PM [facility] Mucous Urine Present (A) NEG^Negat 09/11/2017 [facility] stephanie /LPF 4:41 PM [facility] Specimen (Source) Anatomical Collection Method Collection Time Re ceived Time Location / / Volume Laterality Examination of URINE SPECIMEN 09/11/2017 4:23 09/11/19 18 4:33 midstream urine OBTAINED BY CLEAN PM [employer] SUPERVISOR PM [facility] specimen CATCH PROCEDURE / (procedure) Unknown Silas Valdez MD LAB - URINE ORDERABLES Performing Organization Address City/State/ZIP Code Phon e Number [facility] [address] [place] [address] [facility] [address] [phone] documented in this encounter Visit Diagnoses Diagnosis Acute midline low back pain with bilater al sciatica Paresthesias Disturbance of skin sensation Vaginitis and vulvovaginitis Vaginitis and vulvovaginitis, unspecifie d documented in this encounter Care Teams Gem Setter Relationship Specialty Start Date End Date Justin Loya MD PCP - General Family Practice 02/19/11 [facility] [address] [place] [address] Silas Santiago MD MD Pain Clinic 11/29/13 [facility] [address] [place] [address] documented as of this encounter
--- OUTSIDE RECORDS SUMMARY | 2022-06-23 17:44 | XMS_ITS | Encounter Summary ---
:1990 Author Organization [place] Address [address] [facility] [place] [address] Care Team Providers Name Role Phone Justin Loya MD Primary Care Provider Silas Santiago MD Unavailable Reason for Visit Reason Comments Leg Pain Encounter Details Date Type Department Care Team Description 06/10/2017 Emergency [facility] Simon Valle MD Pain of left lower [place] Emergency Dep t [facility] leg [address] [place], [place] [address] [id number] [place] [address] [place], [place] [id number] (Wo rk) Social History Tobacco Use Types Packs/Day Years Used Date Smoking Tobacco: Never Smokeless Tobacco: Never Alcohol Use Standard Drinks/Week Comments No 0 (1 standard drink = 0.6 oz pure alcoho l) Sex Assigned at Date Recorded Not on file documented as of this encounter Last Filed Vital Signs Vital Sign Reading Time Taken Comments Blood Pressure 108/82 06/10/2017 8:15 PM COMPRESSOR STATION OPERATOR Pulse - - Temperature 36.6 ??C (97.9 ??F) 06/10/2017 6:56 PM COMPRESSOR STATION OPERATOR Respiratory Rate 20 06/10/2017 6:56 PM COMPRESSOR STATION OPERATOR Oxygen Saturation 99% 06/10/2017 7:30 PM COMPRESSOR STATION OPERATOR Inhaled Oxygen Concentration - - Weight - - Height - - Body Mass Index - - documented in this encounter Discharge Instructions Discharge InstructionsSaurav Valle MD - 06/10/2017 8:13 PM CST Avoid crossing your legs while sitting. Ice sore area three time daily. If develop redness swelling,fever, return to ED RESSOR STATION OPERATOR documented in this encounter Medications at [...] documented as of this encounter ED Notes Latonia Guidry - 06/10/2017 6:57 PM CST Patient was diagnosed with a blood clot in her neck in March here in ED, and prescribed Xarelto.Yesterday, patient started having left leg pain, and some shortness of breath today. No chest pain noted. ABCDs intact. Alert and oriented x 4. RESSOR STATION OPERATOR Saurav Valle MD - 06/10/2017 6:51 PM CST History Chief Complaint: Leg Pain The history is provided by the patient. Destiney Cassidy is a 26 year old female who presents with leg pain. Patient reports onset of left leg pain yesterday. Today she developed shortness of breath and given history of DVT in March, despite taking her Xarelto as prescribed (other than 1-2 missed doses over a month ago), patient was concerned for DVT/PE prompting visit to the emergency department. Currently rates her pain at 5/10 in severity located to lateral aspect of left leg just distal to her knee. Patient does note that with heranxiety she is unsure if that caused her shortness of breath today. She did injure the knee a couplemonths prior. She denies chest pain, swelling to the leg, or other complaint. The patient is scheduled to stop Xarelto and have genetic testing in a few weeks. Allergies: Cefzil [Cefprozil] Ciprofloxacin Penicillin G Medications: Xarelto Valium Past Medical History: Anxiety Low back pain DVT Insomnia Past Surgical History: Decompression lumbar minimally invasive one level Myringotomy tube, bilateral Tonsillectomy [place] teeth Family History: History reviewed. No pertinent family history. 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 Cardiovascular: Negative for chest pain and leg swelling. Musculoskeletal: Positive for myalgias. Psychiatric/Behavioral: The patient is nervous/anxious. All other systems reviewed and are negative. Physical Exam Patient Vitals for the past 24 hrs: BP Temp Temp src Heart Rate Resp SpO2 06/10/172014 108/82 - - - - - 06/10/171929 110/64 - - 67 - 99 % 06/10/17 191 112/76 - - 76 - 99 % 06/10/17 1900 - - - - - 100 % 06/10/17 1856 112/58 97.9 ??F (36.6 ??C) Oral 71 20 100 % Physical Exam Vital signs and nursing notes reviewed. Constitutional: laying on gurney appears comfortable HENT: Oropharynx [...] edema. Neurological: Alert and oriented. No focal weakness. LLE: Discomfort at the proximal lateral aspect of the lower leg at the point of the proximal fibula without overlying erythema or swelling. No swelling noted in the popliteal fossa or calf. Skin: Skin is warm and dry. No rash noted. Psych: normal affect Emergency Department Course ECG (19:08:34): Rate 85 bpm. WV interval 170. QRS duration 84. QT/QTc 378/449. P-R-T axes 69 65 66. Normal sinus rhythm with sinus arrhythmia. Normal ECG. Agree with computer interpretation. Interpreted at 1909 by Saurav Valle MD. Imaging: Radiographic findings were communicated with the patient who voiced understanding of the findings. US Lower Extremity Venous Duplex Left: IMPRESSION: No evidence of left lower extremity deep venous thrombosis. Imaging independently reviewed and agree with radiologist interpretation. Interventions: 2018: Ativan 1 mg PO Emergency Department Course: Past medical records, nursing notes, and vitals reviewed. 1909: I performed an exam of the patient and obtained history, as documented above. The patient was sent for an US while in the emergency department, findings above. Above intervention provided. I personally reviewed the laboratory results with the Patient and answered all related questions prior to discharge. 2014: I rechecked the patient. Findings and plan explained to the Patient. Patient discharged home with instructions regarding supportive care, medications, and reasons to return. The importance of close follow-up was reviewed. Impression & Plan Medical Decision Making: Destiney Cassidy is a 26 year old female presenting with left upper lateral calf pain. She was concerned, as she has a history of jugular venous thrombus, that she was developing a clot in her left lower leg. She also admits she has anxiety and this was triggering some of her air hunger symptoms. On examination she has normal vital signs, she has no wheezing or respiratory distress. Ultrasound of left lower extremity was unremarkable for DVT or other concerning findings. Patient admits that she doessit awkwardly with her legs bent and crosses her legs as well which could be causing some inflammatory changes at the proximal fibula. I have advised her to avoid crossing her legs or sitting on her legs in awkward positions and her symptoms should resolve. Patient understands the plan and reasons to return before being discharged home. Diagnosis: ICD-10-CM 1. Pain of left lower leg M79.662 Disposition: Discharged to home with plan as outlined. Sarabjit, Liam Alberts, am serving as a scribe at 7:08 PM on 06/10/2017 to document services personally performed by Saurav Valle MD based on my observations and the provider's statements to me. 06/10/2017 [facility] EMERGENCY [facility]PARTMENT Saurav Valle MD 06/10/172056 RESSOR STATION OPERATOR documented in this encounter Plan of Treatment Not on filedocumented as of this encounter Procedures Procedure Name Priority Date/Time Associated Diagnosis Comme nts US LOWER EXTREMITY STAT 06/10/2017 8:03 PM Res ults for this VENOUS DUPLEX LEFT COMPRESSOR STATION OPERATOR procedure are in the results section. EKG 12-LEAD, STAT 06/10/2017 7:08 PM Results f or this TRACING ONLY COMPRESSOR STATION OPERATOR procedure are i n the results section. documented in this encounter Results US Lower Extremity Venous Duplex Left (06/10/2017 8:03 PM COMPRESSOR STATION OPERATOR) Anatomical Region Laterality Modality Vascular, Thigh, Leg Ultrasound Specimen (Source) Anatomical Location Collection Method / Collectio n Time Received Time / Laterality Volume Impressions 06/10/2017 8:05 PM COMPRESSOR STATION OPERATOR IMPRESSION: No evidence of ??left lower extremity deep venous thrombosis. HUGO GROVES MD Narrative 06/10/2017 8:05 PM COMPRESSOR STATION OPERATOR US LOWER EXTREMITY VENOUS DUPLEX LEFT ??06/10/2017 8:03 PM HISTORY: ??left lower leg pain, history of DVT in past, not in leg; TECHNIQUE: ??Venous Doppler US including color flow and Doppler waveform analysis. FINDINGS: No thrombus was observed and t here was normal compressibility, phasic flow, and augmen tation. Procedure Note Malachi Groves MD - 06/10/2017Formatt ing of this note might be different from the original. US LOWER EXTREMITY VENOUS DUPLEX LEFT 8:03 PM HISTORY: left lower leg pain, history of DVT in past, not in leg; TECHNIQUE: Venous Doppler US including c olor flow and Doppler waveform analysis. FINDINGS: No thrombus was observed and t here was normal compressibility, phasic flow, and augmen tation. IMPRESSION: No evidence of left lower ex tremity deep venous thrombosis. HUGO GROVES MD Saurav Valle MD IMG US ORDERABLES EKG 12 lead (06/10/2017 7:08 PM COMPRESSOR STATION OPERATOR) [facility] Method Time Signature Interpretation ECG Click View RADIOLOGY Image link RESULTS to view waveform and result Specimen (Source) Anatomical Collection Method Collection Time Re ceived Time Location / / Volume Laterality 06/10/2017 7:08 PM COMPRESSOR STATION OPERATOR Saurav Valle MD ECG ORDERABLES Performing Organization Address City/State/ZIP Code Phon e Number RADIOLOGY RESULTS documented in this encounter Visit Diagnoses Diagnosis Pain of left lower leg Pain in limb documented in this encounter Administered Medications Inactive Administered Medications - up to 3 most recent administrations Medication Order MAR Action Action Date Dose Rate Site LORazepam (ATIVAN) tablet 1 mg Given 06/10/2017 8:18 PM COMPRESSOR STATION OPERATOR 1 mg 1 mg, Oral, ONCE, On Thu06/10/17 at 2007, For 1 dose documented in this encounter Active and Recently Administered Medications Times are shown in COMPRESSOR STATION OPERATOR. Scheduled Medication Order 06/08/2017 06/09/2017 06/10/2017 LORazepam (ATIVAN) tablet 1 mg (COMPLETED) 2017 (Given - Provider: Jill Serna RN) 1 mg, Oral, ONCE, On Thu06/10/17 at 2007, For 1 dose documented in this encounter Care Teams Civil Drafting Technician Relationship Specialty Start Date End Date Justin Loya MD PCP - General Family Practice 02/19/11 [facility] [address] [place] [phone] Silas Santiago MD MD Pain Clinic 11/29/[address] [facility] [address] [place] [address] documented as of this encounter
--- OUTSIDE RECORDS SUMMARY | 2022-06-23 17:44 | XMS_ITS | Encounter Summary ---
:1990 Author Organization [place] Address [facility] [place] [address] Care Team Providers Name Role Phone Justin Loya MD Primary Care Provider Silas Santiago MD Unavailable Reason for Visit Reason Comments other Encounter Details Date Type Department Care Team Description 07/21/2017 Emergency [facility] Vanessa Leo MD Abdominal pain, generalized; [facility] Emergency Dep t [address] [facility] Constipation, unspecified constipation t ype [address] [place] [id number] [phone] Social History Tobacco Use Types Packs/Day Years Used Date Smoking Tobacco: Never Smokeless Tobacco: Never Alcohol Use Standard Drinks/Week Comments No 0 (1 standard drink = 0.6 oz pure alcoho l) Sex Assigned at Date Recorded Not on file documented as of this encounter Last Filed Vital Signs Vital Sign Reading Time Taken Comments Blood Pressure 123/80 07/21/2017 1:28 AM RESIDENTIAL CARPENTER Pulse 91 07/21/2017 1:28 AM RESIDENTIAL CARPENTER Temperature 36.8 ??C (98.2 ??F) 07/21/2017 1:28 AM RESIDENTIAL CARPENTER Respiratory Rate 18 07/21/2017 1:28 AM RESIDENTIAL CARPENTER Oxygen Saturation 100% 07/21/2017 1:28 AM RESIDENTIAL CARPENTER Inhaled Oxygen Concentration - - Weight - - Height - - Body Mass Index - - documented in this encounter Discharge Instructions Discharge InstructionsNikky Leo MD - 07/21/2017 4:08 AM CST Discharge Instructions Constipation Your doctor has diagnosed you with constipation. Constipation can cause severe cramping pain and your physician thinks this is the cause of your abdominal pain today. People usually recognize that theyare constipated because they have difficulty having bowel movements, are not having bowel movements frequently enough, or are not having large enough bowel movements. Sometimes, especially in children or older people, you do not recognize that you are constipated until it becomes severe. The most common cause of constipation is a combination of lack of exercise and not eating enough fruits, vegetables and whole grains. Constipation can also be a side effect of medications, such as narcotics, or may be caused by a disease of the digestive system. Return to the Emergency Department if: ??? Your abdominal pain worsens or does not improve after a bowel movement. ??? You become very weak. ??? You get an oral temperature above 102oF or as directed by your doctor. ??? You have blood in your stools (bright red or black, tarry stools). ??? You keep throwing up or can???t drink liquids. ??? Your see blood when you throw up. ??? Your stomach gets bloated or bigger. ??? You have new symptoms or anything that worries you. What can I do to help myself? If your doctor gave you a cathartic medication, like magnesium citrate or GoLytely?? (polyethylene glycol), you can expect to have cramps and gas pains after taking it. You can expect to have a number of bowel movements and even diarrhea in the course of clearing your bowels. You will know your bowels have been cleaned out after you pass clear liquid. The cramps and gas should let up after you have emptied your bowels. You may want to wait until morning to take this type of medication so you aren???t up in the night. ??? Sometimes instead of cathartics, we recommend laxatives like milk of magnesia to move your bowels more slowly, or an enema to help the bowels to move. Read and follow the package directions, or follow your physician???s instructions. ??? Once you have become very constipated, it takes time for your bowels to return to normal and youneed to be very careful to prevent becoming constipated again. Take a laxative if you don???t move your bowels at least every two days. ??? Eat foods that have a lot of fiber. Good choices are fruits, vegetables, prune juice, apple juice and high fiber cereal. Limit dairy products such as milk and cheese, since these can make constipation worse. ??? Drink plenty of water and other fluids. ??? When you feel the need to go to the bathroom, go to the bathroom. Don???t hold it. ??? Miralax??, Metamucil??, Colace??, Senna or fiber supplements can be used daily. Miralax?? daily is often the best choice for children. FOLLOW UP WITH YOUR REGULAR DOCTOR IF YOUR CONSTIPATION IS NOT IMPROVING. Sometimes, chronic constipation requires further testing to determine the cause. If you are over 50 years old, you may need a colonoscopy if you have not had one before. If you were given a prescription for [...] call or return to the Emergency Department. DENTIAL CARPENTER documented in this encounter Medications at Time of Discharge Medication Sig Dispensed Refills Start Date End Date magnesium citrate 1.745 Take 296 mLs by 1 Bottle 0 018 07/21/2017 GM/30ML solution mouth once for 1 dose diazepam (VALIUM) 5 MG Take 1 tablet by 30 tablet 0 011 10/12/2017 tabletIndications: Lumbar mouth every 6 hours radiculopathy as needed (spasm). rivaroxaban ANTICOAGULANT Take 1 tablet (15 42 tablet 0 08/18/2017 (XARELTO) 15 MG TABS mg) by mouth 2 tablet times daily (with meals) for 21 days documented as of this encounter ED Notes William Unger RN - 07/21/2017 1:28 AM CST No poop for 3 days despite stool softeners. Seen 3 days ago for bowel issues. Pt A&O x 3, CMS x 3, ABCD's adequate in triage DENTIAL CARPENTER Nikky Leo MD - 07/21/2017 1:12 AM CST History Chief Complaint: Abdominal pain HPI Destiney Cassidy is a 26 year old female who presents to the emergency department today for evaluation of abdominal pain. The patient reports she was in the ED for constipation and generalized abdominal pain on Thursday, 4 days ago, and prescribed suppositories and Miralax, but her condition has not improved. She has not been able to pass a bowel movement for the past 3 days resulting in her abdominal pain worsening. She took 2 suppositories and 1 Miralax with no relief. She has been burping up bile. Her pain worsened at 1999 last night. She endorses rectal pain after rectal exam on Thursday, but not before. She reports she is concerned that her blood clot is causing her symptoms. She reports due to nausea, she did eat a lot of bread and rice over 2 days. Allergies: Cefzil [Cefprozil] Ciprofloxacin Penicillin G Medications: Xarelto Valium Past Medical History: Anxiety Back pain, low DVT (deep vein thrombosis) in Insomnia Past Surgical History: Decompression lumbar minimally invasive one level Myringotomy insert tube bilateral, combined Tonsillectomy Central teeth Family History: History reviewed. No pertinent family history. Social History: The patient was accompanied to the ED by . Smoking Status: Never Smoker Smokeless Tobacco: Never Used Alcohol Use: Negative Marital Status: [2] Review of Systems Gastrointestinal: Positive for abdominal pain (generalized), constipation, nausea and rectal pain (mild). All other systems reviewed and are negative. Physical Exam Patient Vitals for the past 24 hrs: BP Temp Temp src Pulse Resp SpO2 07/21/17 0128 123/80 98.2 ??F (36.8 ??C) Temporal 91 18 100 % Physical Exam General: Patient is alert and interactive when I enter the room, mildly anxious appearing Head: The scalp, face, and head appear normal Eyes: Conjunctivae are normal ENT: The nose is normal Pinnae are normal External acoustic canals are normal Neck: Trachea midline CV: Pulses are normal Resp: No respiratory distress Abdomen: Soft, minimal tenderness, no focal areas of pain, no peritoneal signs, mildly distended Musc: Normal muscular tone No major joint effusions No asymmetric leg swelling Good capillary refill noted Skin: No rash or lesions noted Neuro: Speech is normal and fluent. Face is symmetric. Moving all extremities well. Psych: Awake. Alert. Normal affect. Appropriate interactions. Emergency Department Course Imaging: Radiology findings were communicated with the patient who voiced understanding of the findings. Abdomen XR, 2 vw, flat and upright Moderate colonic gas and stool within the left colon. No evidence of bowel obstruction. No free air. ABDIRAHMAN LYLES MD Reading per radiology Emergency Department Course: 0128 Nursing notes and vitals reviewed. 0209 The patient was sent for a Abdomen XR, 2 vw, flat and upright while in the emergency department, results above. 0338 I performed an exam of the patient as documented above. 0342 I personally reviewed the imaging results with the patient and answered all related questions prior to discharge. I discussed the treatment plan with the patient and . They expressed understanding of this plan and consented to discharge. They will be discharged home with instructions for care and follow up. In addition, the patient will return to the emergency department if their symptomspersist, worsen, if new symptoms arise or if there is any concern. All questions were answered. Impression & Plan Medical Decision Making: Destiney Cassidy is a 26 year old female who presents to the emergency department today for evaluation of generalized abdominal pain and decreased stool output without signs of serious intraabdominal problems. Signs and symptoms are consistent with constipation. There are no signs at this point for a need for rectal disimpaction. There are no signs of obstruction nor other intraabdominal catastrophe with a negative x-ray except for moderate stool burden with no signs of obstruction. She has no risk factors for obstructions.There are no indications for advanced imaging or admission. I am going to send them home with instructions on medication management of this. Given she is already started on suppositories and Miralax, I will prescribe Magnesium. The patient is agreeable with this and questions are answered. Diagnosis: ICD-10-CM 1. Abdominal pain, generalized R10.84 2. Constipation, unspecified constipation type K59.00 Disposition: The patient is discharged to home. Discharge Medications: New Prescriptions MAGNESIUM CITRATE 1.745 GM/30ML SOLUTION Take 296 mLs by mouth once for 1 dose Scribe Disclosure: Ryann Whipple, gloria serving as a scribe at 3:29 AM on 07/21/2017 to document services personally performed by Nikky Leo MD based on my observations and the provider's statements to me. [facility] EMERGENCY [facility]PART[facility] Nikky Leo MD 07/21/17 1709 DENTIAL CARPENTER documented in this encounter Plan of Treatment Not on filedocumented as of this encounter Procedures Procedure Name Priority Date/Time Associated Diagnosis Comme nts XR ABDOMEN 2 VIEWS STAT 07/21/2017 2:19 AM Res ults for this RESIDENTIAL CARPENTER procedure are i n the results section. documented in this encounter Results Abdomen XR, 2 vw, flat and upright (07/21/2017 2:19 AM RESIDENTIAL CARPENTER) Anatomical Region Laterality Modality Abdomen/Pelvis Digital Radiography Specimen (Source) Anatomical Location Collection Method / Collectio n Time Received Time / Laterality Volume Impressions 07/21/2017 2:34 AM RESIDENTIAL CARPENTER IMPRESSION: Moderate colonic gas and stool within the left colon. No evidence of bowel obstruction. No free a ir. ABDIRAHMAN LYLES MD Narrative 07/21/2017 2:34 AM RESIDENTIAL CARPENTER XR ABDOMEN 2 VW ??07/21/2017 2:19 AM INDICATION: Abdominal pain and no poop f or three days. COMPARISON: None. Procedure Note Abdirahman Lyles MD - 07/21/2017F ormatting of this note might be different from the original. XR ABDOMEN 2 VW 07/21/2017 2:19 AM INDICATION: Abdominal pain and no poop f or three days. COMPARISON: None. IMPRESSION: Moderate colonic gas and sto ol within the left colon. No evidence of bowel obstruction. No free a ir. ABDIRAHMAN LYLES MD Saroj Chaudhry MD IMG DIAGNOSTIC IMAGING ORDER ANGELES documented in this encounter Visit Diagnoses Diagnosis Abdominal pain, generalized Constipation, unspecified constipation t ype documented in this encounter Care Teams Manager E Commerce Relationship Specialty Start Date End Date Justin Loya MD PCP - General Family Practice 02/19/11 [facility] [address] [place] [address] Silas Santiago MD MD Pain Clinic 11/29/13 [facility] [address] [place] [address] documented as of this encounter
--- OUTSIDE RECORDS SUMMARY | 2022-06-23 17:44 | XMS_ITS | Encounter Summary ---
:1990 Author Organization [place] Address [address] [facility] [place] [address] Care Team Providers Name Role Phone Justin Loya MD Primary Care Provider Silas Santiago MD Unavailable Reason for Visit Reason Comments Bloated Encounter Details Date Type Department Care Team Description 07/03/2017 [facility] Jessica orona, Saroj Blackwell MD Emergency Dept [facility] [address] [place] [phone] [place], [place] [phone] (Wo rk) Social History Tobacco Use Types Packs/Day Years Used Date Smoking Tobacco: Never Smokeless Tobacco: Never Alcohol Use Standard Drinks/Week Comments No 0 (1 standard drink = 0.6 oz pure alcoho l) Sex Assigned at Date Recorded Not on file documented as of this encounter Last Filed Vital Signs Vital Sign Reading Time Taken Comments Blood Pressure 134/75 07/03/2017 10:03 PM UNDER CUTTER Pulse 66 07/03/2017 10:03 PM UNDER CUTTER Temperature 36.4 ??C (97.6 ??F) 07/03/2017 10:03 PM UND[facility] CUTTER Respiratory Rate 16 07/03/2017 10:03 PM UND[facility] CUTTER Oxygen Saturation 100% 07/03/2017 10:03 PM [facility] C[facility]TER Inhaled Oxygen Concentration - - Weight - [...] encounter ED Notes Katty Murcia RN - 07/03/2017 10:04 PM CST Patient presents with abdominal fullness/bloat for the past 2-3 days along with gassy, decreased appetite and not hungry. ABC's intact. R CUTTER documented in this encounter Plan of Treatment Not on filedocumented as of this encounter Procedures Procedure Name Priority Date/Time Associated Comments Diagnosis HCG QUALITATIVE URINE STAT 07/03/2017 10:00 Re sults for this PM [facility] CUTTER procedure are i n the results section. ROUTINE UA WITH STAT 07/03/2017 10:00 Results for this MICROSCOPIC PM UNDER CUTTER procedure are i n the results section. documented in this encounter Results HCG qualitative urine (UPT) (07/03/2017 10:00 PM UNDER CUTTER) athologist Signature HCG Qual Urine Negative NEG^Negati 07/03/2017 [place] ve 10:29 PM [facility] Comment: This test is for screening purposes. ??R esults should be interpreted along with the clinical picture. ??Confirmation te sting is available if warranted by ordering [id number], HCG Quantitative Pregna ncy. Specimen Anatomical Collection Method Collection Time Receive d Time (Source) Location / / Volume Laterality Urine specimen URINE SPECIMEN 07/03/2017 10:00 017 (specimen) OBTAINED BY CLEAN PM UNDER CUTTER 10:[address] CATCH PROCEDURE / Unknown Miranda Waldron MD LAB - URINE ORDERABLES Performing Organization Address City/State/ZIP Code Phon e Number M [place] [id number] [address], [place] [address] [facility] [address] [place], [place] [address] [place] [address] (ABNORMAL) UA with Microscopic (07/03/2017 10:00 PM [facility]) [facility] Method Time Signature Color Urine Colorless 07/03/2017 [facility] 10:29 PM [facility] Appearance Urine Clear 07/03/2017 [facility] 10:29 PM [facility] Glucose Urine Negative NEG^Negat 07/03/2017 [facility] stephanie mg/dL 10:29 PM [facility] Bilirubin Urine Negative NEG^Negat 07/03/2017 [facility] stephanie 10:29 PM [facility] Ketones Urine Negative NEG^Negat 07/03/2017 [facility] stephanie mg/dL 10:29 PM [facility] Specific [place] 1.003 1.003 - 07/03/2017 [facility] Urine 1.035 10:29 PM [facility] Blood Urine Negative NEG^Negat 07/03/2017 [facility] stephanie 10:29 PM [facility] pH Urine 7.0 5.0 - 7.0 07/03/2017 [facility] pH 10:29 PM [facility] Protein Albumin Negative NEG^Negat 07/03/2017 [facility] Urine stephanie mg/dL 10:29 PM [facility] Urobilinogen 0.0 0.0 - 2.0 07/03/2017 [facility] mg/dL mg/dL 10:29 PM [facility] Nitrite Urine Negative NEG^Negat 07/03/2017 [facility] stephanie 10:29 PM [facility] Leukocyte Negative NEG^Negat 07/03/2017 [facility] Esterase Urine stephanie 10:29 PM [facility] Source Midstream 07/03/2017 [facility] Urine 10:15 PM [facility] WBC Urine <1 0 - 2 07/03/2017 [facility] /HPF 10:29 PM [facility] RBC Urine 0 0 - 2 07/03/2017 [facility] /HPF 10:29 PM [facility] Bacteria Urine Few (A) NEG^Negat 07/03/2017 [facility] stephanie /HPF 10:29 PM [facility] Squamous 1 0 - 1 07/03/2017 [facility] Epithelial /HPF /HPF 10:29 PM [facility] Urine [facility] Mucous Urine Present (A) NEG^Negat 07/03/2017 [place] stephanie /LPF 10:29 PM [facility] Specimen (Source) Anatomical Collection Method Collection Time Re ceived Time Location / / Volume Laterality Examination of URINE SPECIMEN 07/03/2017 10:00 017 midstream urine OBTAINED BY CLEAN PM [facility] C[facility]TER 10:14 P M UNDER C[facility]TER specimen CATCH PROCEDURE / (procedure) Unknown Miranda Waldron MD LAB - URINE ORDERABLES Performing Organization Address City/State/ZIP Code Phon e Number M [facility] [address], [place] [address] [facility] [address] [place], [place] [address] [place] [address] documented in this encounter Visit Diagnoses Not on filedocumented in this encounter Care Teams Getter Filler Relationship Specialty Start Date End Date Justin Loya MD PCP - General Family Practice 02/19/11 [facility] [id number] [place] [phone] Silas Santiago MD MD Pain Clinic 11/29/13 [facility] [address] [place] [address] documented as of this encounter
--- OUTSIDE RECORDS SUMMARY | 2022-06-23 17:44 | XMS_ITS | Encounter Summary ---
:1990 Author Organization [place] Address [address] [facility] [place] [address] Care Team Providers Name Role Phone Justin Loya MD Primary Care Provider Silas Santiago MD Unavailable Reason for Visit Reason Comments Abdominal Pain Encounter Details Date Type Department Care Team Description 08/18/2017 Emergency [facility] Julieta Lewis MD Nausea vomiting and diarrhea; [facility] Emergency Dep t [facility] Elevated bilirubin [address] [place], [place] [address] [place] [address] [place], [place] [id number] (Wo rk) Social History Tobacco Use Types Packs/Day Years Used Date Smoking Tobacco: Never Smokeless Tobacco: Never Alcohol Use Standard Drinks/Week Comments No 0 (1 standard drink = 0.6 oz pure alcoho l) Sex Assigned at Date Recorded Not on file documented as of this encounter Last Filed Vital Signs Vital Sign Reading Time Taken Comments Blood Pressure 114/71 08/18/2017 10:30 AM SAP TECHNICAL ARCHITECT Pulse - - Temperature 37.2 ??C (98.9 ??F) 08/18/2017 7:33 AM SAP TECHNICAL ARCHITECT Respiratory Rate 16 08/18/2017 9:00 AM SAP TECHNICAL ARCHITECT Oxygen Saturation 96% 08/18/2017 11:08 AM SAP TECHNICAL ARCHITECT Inhaled Oxygen Concentration - - Weight 51.3 kg (113 lb) 08/18/2017 7:33 AM SAP TECHNICAL ARCHITECT Height 170.2 cm (5' 7) 08/18/2017 7:33 AM SAP TECHNICAL ARCHITECT Body Mass Index 17.7 08/18/2017 7:33 AM SAP TECHNICAL ARCHITECT documented in this encounter Discharge Instructions Discharge InstructionsJulieta Lewis MD - 08/18/2017 11:06 AM CST *Drink plenty of fluids and advance diet slowly. *Take medications as prescribed. Zofran for nausea. Continue your current medications. *Follow-up with your doctor for a recheck in 2-3 days and for recheck of your bilirubin level. *Return if you are unable to keep fluids down, develop severe abdominal pain, faint or feel like youwill faint or become worse in any way. Discharge Instructions Gastroenteritis You have been seen today for vomiting and diarrhea, called gastroenteritis or the stomach flu. This is usually caused by a virus, but some bacteria, parasites, medicines or other medical conditions cancause similar symptoms. At this time your doctor does not find that your vomiting and diarrhea is a sign of anything dangerous or life-threatening. However, sometimes the signs of serious illness do not show up right away. If you have new or worse symptoms, you may need to be seen again in the emergency department or by your primary doctor. Remember that serious problems like appendicitis can look like gastroenteritis at first. Return to the Emergency Department if: ??? You keep throwing up and you are not able to keep liquids down. ??? You feel you are getting dehydrated, such as being very thirsty, not urinating at least every 8-12 hours, or feeling faint or lightheaded. ??? You develop a new fever, or your fever continues for more than 2 days. ??? You have belly pain that seems worse than cramps, is in one spot, or is getting worse over time. ??? You have blood in your vomit or in your diarrhea. ??? You feel very weak ??? You are not starting to improve within 24 hours of your visit here What can I do to help myself? The most important thing to do is to drink clear liquids. If you have been vomiting a lot, it isbest to have only small, frequent sips of liquids. Drinking too much at once may cause more vomiting. If you are vomiting often, you must replace minerals, sodium and potassium lost with your illness. Pedialyte?? and sports drinks can help you replace these minerals. You can also drink clear liquids such as water, weak tea, apple juice, and 7-up. Avoid acid liquids (orange), caffeine (coffee) or alcohol. Do not drink milk until you no longer have diarrhea. ??? After liquids are staying down, you may start eating mild foods. Soda crackers, toast, plain noodles, gelatin, applesauce and bananas are good first choices. Avoid foods that have acid, are spicy, fatty or fibrous (such as meats, coarse grains, vegetables). You may start eating these foods again in about 3 days when you are better. ??? Sometimes treatment includes prescription medicine to prevent nausea and vomiting and to preventdiarrhea. If your doctor prescribes these for you, take them as directed. ??? Nonprescription medicine is available for the treatment of diarrhea and can be very effective. If you use it, make sure you use the dose recommended on the package. Avoid Lomotil. Check with your healthcare provider before you use any medicine for diarrhea. ??? Don???t take ibuprofen, or other nonsteroidal anti-inflammatory medicines without checking with your healthcare provider. Remember that you can always come back to the Emergency Department if you are not able to see your regular doctor in the amount of time listed above, if you get any new symptoms, or if there is anything that worries you. TECHNICAL ARCHITECT documented in this encounter Medications at Time [...] every 8 hours as needed for other Probiotic Product 0 019 (PROBIOTIC ADVANCED PO) documented as of this encounter ED Notes Tosha Goode RN - 08/18/2017 11:18 AM CST Patient expressing readiness to go home. MD advised and at bedside. TECHNICAL ARCHITECT Tosha Goode RN - 08/18/2017 10:57 AM CST Patient stated prior wanted to try different anti-nausea medication besides zofran as patient has concerns for constipation. Pt states doesn't want compazine. I looked it up and it also causes constipation. I'll just do zofran since I already take that and know how my body reacts to it. MD advised. See order change. TECHNICAL ARCHITECT Tosha Goode RN - 08/18/2017 10:[address] Lewis at bedside with patient. TECHNICAL ARCHITECT Jackelyn Saunders RN - 08/18/2017 10:33 AM CST Pt put call light on, states abdominal pain is worsening. Also c/o nausea, does not want more zofranas worried about constipation. TECHNICAL ARCHITECT Tosha Goode RN - 08/18/2017 9:00 AM CST Pt states still feels a little nauseous but declines need for anti-nausea medications at this time. MD advised. TECHNICAL ARCHITECT Teressa Young RN - 08/18/2017 7:31 AM CST A&Ox4. ABC's intact. Pt took 2 different magnesium products for the past 2 weeks and now has hadabdominal pain/cramping, diarrhea, liquids stools, started last night. Hx of constipation. States she cannot drink water either, with 3 episodes of vomiting. States she is also getting dizzy. TECHNICAL ARCHITECT Julieta Lewis MD - 08/18/2017 7:25 AM CST History Chief Complaint: Abdominal Pain; Nausea; Vomiting; Diarrhea HPI Destiney Cassidy is a 26 year old female who presents with abdominal pain, nausea, vomiting, and diarrhea. The patient states she was constipated the whole month of July, and was taking OTC laxatives to alleviate her symptoms. She then decided to got to a more natural route, and went to a matrix bath attendant to find other options. She was given Natural Vitality Natural Calm and NutriKey Mixed Magnesium, and has been trying these new supplements for the past 2 weeks. She noticed she was starting to feel constipated again, so she began taking more than the prescribed dose. Last night she started having abdominal pain, diarrhea/liquid stools, nausea, vomiting, and headache. She had x3 episodes of non-bloody emesis. No blood in stools. The patient denies dizziness, fever, urinary symptoms, and states no other concerns at this time. Of note, she just stopped taking her blood thinners for a clot she had in her neck last week. Allergies: Cefzil [Cefprozil] Ciprofloxacin Penicillin G Medications: Probiotic Product (PROBIOTIC ADVANCED PO) polyethylene glycol (MIRALAX) powder diazepam (VALIUM) 5 MG tablet magnesium citrate solution Past Medical History: Anxiety Back pain, low DVT (deep venous thrombosis) (H) Insomnia Past Surgical History: Decompression lumbar Myringotomy, insert tube bilaterally Tonsillectomy [place] teeth Family History: History reviewed. No pertinent family history. Social History: Presents to the emergency department with her . Marital Status: Smoking status: Never smoker Alcohol use: No Review of Systems Constitutional: Negative for fever. Gastrointestinal: Positive for abdominal pain, diarrhea, nausea and vomiting. Negative for blood in stool and constipation. Genitourinary: Negative for difficulty urinating, frequency, hematuria and urgency. Neurological: Positive for headaches. Negative for dizziness. All other systems reviewed and are negative. Physical Exam Patient Vitals for the past 24 hrs: BP Temp Temp src Heart Rate Resp SpO2 Height Weight 08/18/17 1034 - - - - - 99 % - - 08/18/17 1032 - - - - - 96 % - - 08/18/17 1030 114/71 - - - - 100 % - - 08/18/17 0900 - - - 96 16 99 % - - 08/18/17 0845 110/79 - - - - - - - 08/18/17 0842 - - - 94 - 100 % - - 08/18/17 0830 108/67 - - 88 15 100 % - - 08/18/17 0815 113/74 - - - - - - - 08/18/17 0813 - - - 83 - 96 % - - 08/18/17 0801 126/82 - - - - 98 % - - 08/18/17 0800 - - - - 16 - - - 08/18/17 0733 141/72 98.9 ??F (37.2 ??C) Temporal 106 18 97 % 1.702 m (5' 7) 51.3 kg (113 lb) Physical Exam General: Thin, appears to be nauseated Eyes: PERRL, conjunctivae pink no scleral icterus or conjunctival injection ENT: Mildly dry mucus membranes, posterior oropharynx clear without erythema or exudates Respiratory: Lungs clear to auscultation bilaterally, no crackles/rubs/wheezes. Good air movement CV: Normal rate and rhythm, no murmurs/rubs/gallops GI: Abdomen soft and non-distended. Normoactive BS. No apparent tenderness, guarding or rebound Skin: Warm, dry. No rashes or petechiae Musculoskeletal: No peripheral edema or calf tenderness Neuro: Alert and oriented to person/place/time Psychiatric: Anxious affect Emergency Department Course ECG: @ 0756 Indication: Abdominal pain Vent. Rate 95 bpm. CA interval 156 ms. QRS duration 84 ms. QT/QTc 354/444 ms. P-R-T axis 76 68 71. NSR, normal ECG. Read @ [address] Lewis. Laboratory: Laboratory findings were communicated with the patient who voiced understanding of the findings. CBC: AWNL. (WBC 10.9, HGB 14.7, PLT 212) CMP: Bilirubin total 1.9 (H), o/w WNL (Creatinine 0.60) Lipase: 122 HCG Qualitative Urine: negative Magnesium: 2.1 Bilirubin Total 0.3 (H) Interventions: 0809: NS, 1 L, IV 1103: Zofran, 4 mg, ODT Emergency Department Course: Nursing notes and vitals reviewed. I performed an exam of the patient as documented above. IV was inserted and blood was drawn for laboratory testing, results above. 1110: Patient rechecked and updated. Findings and plan explained to the patient. Patient discharged home with instructions regarding supportive care, medications, and reasons to return. The importance of close follow-up was reviewed. I personally reviewed the laboratory results with the Patient and answered all related questions prior to discharge. Impression & Plan Medical Decision Making: Destiney Cassidy is a 26 year old female who presents for evaluation of nausea, vomiting and diarrhea with minimal abdominal pain in a nonfocal abdominal exam. The differential diagnosis of vomiting and diarrhea is broad and includes such etiologies as viral gastroenteritis, bacterial infection of thelarge intestine (salmonella, shigella, campylobacter, e coli, etc), bowel obstruction, intra-abdominal infection such as colitis, cholecystitis, UTI, pyelonephritis, appendicitis, etc. Symptoms could also be secondary to the magnesium and natural supplements she has been taking. There are no signs of worrisome intra- abdominal pathologies detected during the visit today. The patient has a completely benign abdominal exam without rebound, guarding, or marked tenderness to palpation. Laboratory studiesare overall reassuring and showed a very slight elevation of bilirubin. She had a very recent RUQ USwithout evidence of gallstones or liver disease and I don't feel this needs to be repeated given the lack of abdominal tenderness. The patient improved with iv fluids and anti- emetics. Supportive outpatient management is therefore indicated. Abdominal pain precautions are given for home. No indicationfor stool studies at this time. No indication for CT at this time. It was discussed with the patientto return to the ED for blood in stool, increasing pain, or fevers more than 102. Diagnosis: ICD-10-CM 1. Nausea vomiting and diarrhea R11.2 R19.7 2. Elevated bilirubin R17 Disposition: Discharged to home Scribe Disclosure: Sarabjit Conor Liliane, am serving as a scribe at 7:49 AM on 08/18/2017 to document services personally performed by Julieta Lewis MD, based on my observations and the provider's statements to me. [facility] EMERGENCY [facility]PART[facility] Julieta Lewis MD 08/18/171921 TECHNICAL ARCHITECT documented in this encounter Plan of Treatment Not on filedocumented as of this encounter Procedures Procedure Name Priority Date/Time Associated Comments Diagnosis CBC WITH PLATELETS & STAT 08/18/2017 8:05 AM R esults for this DIFFERENTIAL SAP TECHNICAL ARCHITECT procedure are i n the results section. MAGNESIUM STAT 08/18/2017 8:05 AM Results f or this SAP TECHNICAL ARCHITECT procedure are i n the results section. LIPASE STAT 08/18/2017 8:05 AM Results f or this SAP TECHNICAL ARCHITECT procedure are i n the results section. HCG QUALITATIVE STAT 08/18/2017 8:05 AM Result s for this SAP TECHNICAL ARCHITECT procedure are i n the results section. COMPREHENSIVE STAT 08/18/2017 8:05 AM Results for this METABOLIC PANEL SAP TECHNICAL ARCHITECT procedure ar e in the results section. BILIRUBIN DIRECT Routine 08/18/2017 8:05 AM Resul ts for this SAP TECHNICAL ARCHITECT procedure are i n the results section. EKG 12-LEAD, TRACING STAT 08/18/2017 7:56 AM R esults for this ONLY SAP TECHNICAL ARCHITECT procedure are i n the results section. documented in this encounter Results (ABNORMAL) Bilirubin direct (08/18/2017 8:05 AM SAP TECHNICAL ARCHITECT) athologist Signature Bilirubin 0.3 (H) 0.0 - 0.2 08/18/2017 [place] Direct mg/dL 10:08 AM [facility] Specimen Anatomical Collection Method Collection Time Receive d Time (Source) Location / / Volume Laterality 08/18/2017 8:05 AM 8 8:31 SAP TECHNICAL ARCHITECT AM SAP TECHNICAL ARCHITECT Julieta Lewis MD LAB - BLOOD ORDERABLES Performing Organization Address City/State/ZIP Code Phon e Number [facility] [address] [address] [facility] [address] [phone] Magnesium (08/18/2017 8:05 AM SAP TECHNICAL ARCHITECT) athologist Signature Magnesium 2.1 1.6 - 2.3 08/18/2017 [facility] mg/dL 8:56 AM [facility] Specimen Anatomical Collection Method Collection Time Receive d Time (Source) Location / / Volume Laterality Blood specimen 08/18/2017 8:05 AM 018 8:31 (specimen) SAP TECHNICAL ARCHITECT AM SAP TECHNICAL ARCHITECT Julieta Lewis MD LAB - BLOOD ORDERABLES Performing Organization Address City/State/ZIP Code Phon e Number [facility] [address], [place] [address] [facility] [address] [place], [place] [address], [facility] [phone] HCG qualitative Blood (08/18/2017 8:05 AM SAP TECHNICAL ARCHITECT) [facility] Method Time Signature HCG Qualitative Negative NEG^Negati 08/18/2017 [place] Serum ve 8:55 AM [facility] Comment: This test is for screening purposes. ??R esults should be interpreted along with the clinical picture. ??Confirmation te sting is available if warranted by ordering [id number], HCG Quantitative Pregna ncy. Specimen Anatomical Collection Method Collection Time Receive d Time (Source) Location / / Volume Laterality Blood specimen 08/18/2017 8:05 AM 018 8:31 (specimen) SAP TECHNICAL ARCHITECT AM SAP TECHNICAL ARCHITECT Julieta Lewis MD LAB - BLOOD ORDERABLES Performing Organization Address City/[facility] Phon e Number [facility] [address], [place] [address] [facility] [address] [place], [place] [address], [facility] [phone] Lipase (08/18/2017 8:05 AM SAP TECHNICAL ARCHITECT) P athologist Signature Lipase 122 73 - 393 08/18/2017 [facility] U/L 8:56 AM [facility] Specimen Anatomical Collection Method Collection Time Receive d Time (Source) Location / / Volume Laterality Blood specimen 08/18/2017 8:05 AM 018 8:31 (specimen) SAP TECHNICAL ARCHITECT AM SAP TECHNICAL ARCHITECT Julieta Lewis MD LAB - BLOOD ORDERABLES Performing Organization Address City/[facility]/ZIP [facility] Phon e Number [facility] [address], [place] [address] [facility] [address] [phone] (ABNORMAL) Comprehensive metabolic panel (08/18/2017 8:05 AM [facility]) athologist Signature Sodium 138 133 - 144 08/18/2017 [facility] mmol/L 8:56 AM [facility] Potassium 3.9 3.4 - 5.3 08/18/2017 [facility] mmol/L 8:56 AM [facility] Chloride 107 94 - 109 08/18/2017 [facility] mmol/L 8:56 AM [facility] Carbon Dioxide 24 20 - 32 08/18/2017 [facility] mmol/L 8:56 AM [facility] Anion Gap 7 3 - 14 08/18/2017 [facility] mmol/L 8:56 AM [facility] Glucose 94 70 - 99 08/18/2017 [facility] mg/dL 8:56 AM [facility] Urea Nitrogen 13 7 - 30 08/18/2017 [facility] mg/dL 8:56 AM [facility] Creatinine 0.60 0.52 - 08/18/2017 [facility] 1.04 mg/dL 8:56 AM [facility] GFR Estimate >90 >60 08/18/2017 [facility] mL/min/1.7 8:[address] Comment: Non GFR Calc GFR Estimate If >90 >60 mL/min/1.7m2 08/18/2017 8:56 A [facility] Comment: GFR Calc Calcium 8.6 8.5 - 10.1 08/18/2017 8:56 AM [facility] mg/dL [facility] Bilirubin Total 1.9 (H) 0.2 - 1.3 mg/dL 08/18/2017 8:56 AM [facility] Albumin 4.0 3.4 - 5.0 g/dL 08/18/2017 8:56 AM [facility] Protein Total 7.4 6.8 - 8.8 g/dL 08/18/2017 8:56 AM [facility] Alkaline Phosphatase 55 40 - 150 U/L 08/18/2017 8:56 AM [facility] ALT 19 0 - 50 U/L 08/18/2017 8:56 AM DARYA R IDGES [facility] AST 16 0 - 45 U/L 08/18/2017 8:56 AM [facility] Shun STORMGES [facility] Specimen Anatomical Collection Method Collection Time Receive d Time (Source) Location / / Volume Laterality Blood specimen 08/18/2017 8:05 AM 018 8:31 (specimen) SAP TECHNICAL ARCHITECT AM SAP TECHNICAL ARCHITECT Julieta Lewis MD LAB - BLOOD ORDERABLES Performing Organization Address City/State/ZIP Code Phon e Number [address] [place] [address] [address], [place] [address] [facility] [address] [place], [place] [address] [phone] (ABNORMAL) CBC with platelets differential (08/18/2017 8:05 AM [facility]) [facility] Method Time Signature WBC 10.9 4.0 - 08/18/2017 [facility] 11.0 8:37 AM [facility] 10e9/L [facility] RBC Count 4.86 3.8 - 5.2 08/18/2017 [facility] 10e12/L 8:37 AM [facility] Hemoglobin 14.7 11.7 - 08/18/2017 [facility] 15.7 g/dL 8:37 AM [facility] Hematocrit 42.5 35.0 - 08/18/2017 [facility] 47.0 % 8:37 AM [facility] MCV 87 78 - 100 08/18/2017 [facility] fl 8:37 AM [facility] MCH 30.2 26.5 - 08/18/2017 [facility] 33.0 pg 8:37 AM [facility] MCHC 34.6 31.5 - 08/18/2017 [facility] 36.5 g/dL 8:37 AM [facility] RDW 11.8 10.0 - 08/18/2017 [facility] 15.0 % 8:37 AM [facility] Platelet Count 212 150 - 450 08/18/2017 [facility] 10e9/L 8:37 AM [facility] Diff Method Automated 08/18/2017 [facility] Method 8:37 AM [facility] % Neutrophils 91.3 % 08/18/2017 [facility] 8:37 AM [facility] % Lymphocytes 3.2 % 08/18/2017 [facility] 8:37 AM [facility] % Monocytes 4.6 % 08/18/2017 [facility] 8:37 AM [facility] % Eosinophils 0.3 % 08/18/2017 [facility] 8:37 AM [facility] % Basophils 0.3 % 08/18/2017 [facility] 8:37 AM [facility] % Immature 0.3 % 08/18/2017 [facility] Granulocytes 8:37 AM [facility] Nucleated RBCs 0 0 /100 08/18/2017 [facility] 8:37 AM [facility] Absolute 10.0 (H) 1.6 - 8.3 08/18/2017 [facility] Neutrophil 10e9/L 8:37 AM [facility] Absolute 0.4 (L) 0.8 - 5.3 08/18/2017 [facility] Lymphocytes 10e9/L 8:37 AM [facility] Absolute 0.5 0.0 - 1.3 08/18/2017 [facility] Monocytes 10e9/L 8:37 AM [facility] Absolute 0.0 0.0 - 0.7 08/18/2017 [facility] Eosinophils 10e9/L 8:37 AM [facility] Absolute 0.0 0.0 - 0.2 08/18/2017 [facility] Basophils 10e9/L 8:37 AM [facility] Abs Immature 0.0 0 - 0.4 08/18/2017 [facility] Granulocytes 10e9/L 8:37 AM [facility] Absolute 0.0 08/18/2017 [facility] Nucleated RBC 8:37 AM [facility] Specimen Anatomical Collection Method Collection Time Receive d Time (Source) Location / / Volume Laterality Blood specimen 08/18/2017 8:05 AM 018 8:31 (specimen) SAP TECHNICAL ARCHITECT AM SAP TECHNICAL ARCHITECT Julieta Lewis MD LAB - BLOOD ORDERABLES Performing Organization Address City/State/ZIP Code Phon e Number [facility] [address], [place] [address] [facility] [address] [address] [address] [phone] EKG 12-lead, tracing only (08/18/2017 7:56 AM SAP TECHNICAL ARCHITECT) [facility] gist Method Time Signature Interpretation ECG Click View RADIOLOGY Image link RESULTS to view waveform and result Specimen (Source) Anatomical Collection Method Collection Time Re ceived Time Location / / Volume Laterality 08/18/2017 7:56 AM SAP TECHNICAL ARCHITECT Julieta Lewis MD ECG ORDERABLES Performing Organization Address City/State/ZIP Code Phon e Number RADIOLOGY RESULTS documented in this encounter Visit Diagnoses Diagnosis Nausea vomiting and diarrhea Nausea with vomiting Elevated bilirubin Disorders of bilirubin excretion documented in this encounter Administered Medications Inactive Administered Medications - up to 3 most recent administrations Medication Order MAR Action Action Date Dose Rate Site 0.9% sodium chloride BOLUS New Bag 08/18/2017 8:09 AM SAP TECHNICAL ARCHITECT 1,000 mLs 1000 mL/hr Intravenous, 1,000 mL, ONCE, at 1,000 mL/hr, Administer over 1 Hours, On Thu08/18/17 at 0747, For 1 dose 0.9% sodium chloride infusion at 125 mL/hr, Intravenous, CONTINUOUS, A dminister after the bolus., Starting on Thu08/18/17 at 0747, Until Thu08/18/17 at 1324 ondansetron (ZOFRAN-ODT) ODT tab 4 mg Given 08/18/2017 11:03 AM SAP TECHNICAL ARCHITECT 4 mg 4 mg, Oral, ONCE, On Thu08/18/17 at 1059, For 1 dose, With dry hands, peel back foil backing and gently remove tablet; do not push oral disintegrating tablet through foil backing; administer immediately on tongue and oral disintegrating tablet dissolves in seconds; then swallow with saliva; liquid not required. documented in this encounter Active and Recently Administered Medications Times are shown in SAP TECHNICAL ARCHITECT. Scheduled Medication Order 08/16/2017 08/17/2017 08/18/2017 0.9% sodium chloride BOLUS (COMPLETED) 0809 (New Bag - Provider: Tosha Goode RN)0930 (Stopped - Provider: Tosha Goode RN) Intravenous, 1,000 mL, ONCE, at 1,000 mL /hr, Administer over 1 Hours, Thu08/18/17 at 0747, For 1 dose ondansetron (ZOFRAN-ODT) ODT tab 4 mg (COMPLETED) 1103 (Given - Provider: Tosha Goode, RN) 4 mg, Oral, ONCE, Thu08/18/17 at 1059, F or 1 dose, With dry hands, peel back foil backing and gently remove tablet; do not push oral disintegrating tablet through foil backing; administer immediately on tongue and oral disintegrating tablet d issolves in seconds; then swallow with saliva; liquid not required. Continuous Medication Order 08/16/2017 08/17/2017 08/18/2017 0.9% sodium chloride infusion 07 47 (Canceled Entry - Provider: Orders Generic Provider - Comment: Automatically canceled at discontinue of medication order) at 125 mL/hr, Intravenous, CONTINUOUS, A dminister after the bolus., Starting Thu08/18/17 at 0747, Until Thu08/18/17 at 1324 documented in this encounter Care Teams Senior Recruiter Relationship Specialty Start Date End Date Justin Loya MD PCP - General Family Practice 02/19/11 [facility] [address] [place] [address] Silas Santiago MD MD Pain Clinic 11/29/13 [facility] [address] [place] [address] documented as of this encounter
--- OUTSIDE RECORDS SUMMARY | 2022-06-23 17:44 | XMS_ITS | Encounter Summary ---
:1990 Author Organization [place] Address [address] [place] [address] Care Team Providers Name Role Phone Justin Loya MD Primary Care Provider Silas Santiago MD Unavailable Reason for Visit Reason Comments Shortness of Breath Encounter Details Date Type Department Care Team Description 07/13/2017 [facility] Jessica orona, Saroj Blackwell MD Emergency Dept [facility] [address] [place] [address] [place] [address] (Wo rk) Social History Tobacco Use Types Packs/Day Years Used Date Smoking Tobacco: Never Smokeless Tobacco: Never Alcohol Use Standard Drinks/Week Comments No 0 (1 standard drink = 0.6 oz pure alcoho l) Sex Assigned at Date Recorded Not on file documented as of this encounter Last Filed Vital Signs Vital Sign Reading Time Taken Comments Blood Pressure 121/78 07/13/2017 2:55 AM COMPLIANCE AIDE Pulse 75 07/13/2017 2:55 AM COMPLIANCE AIDE Temperature 37.4 ??C (99.3 ??F) 07/13/2017 2:55 AM COMPLIANCE AIDE Respiratory Rate 16 07/13/2017 2:55 AM COMPLIANCE AIDE Oxygen Saturation 100% 07/13/2017 2:55 AM COMPLIANCE AIDE Inhaled Oxygen Concentration - - Weight - [...] encounter ED Notes William Unger RN - 07/13/2017 3:26 AM CST Pt called to do neb and she said she did not want to do it. LIANCE AIDE William Unger RN - 07/13/2017 3:10 AM CST Pt stated she wanted to try the neb. LIANCE AIDE William Unger RN - 07/13/2017 2:54 AM CST Throat pain, cough and upper chest tightness. Pt A&O x 3, CMS x 3, ABCD's adequate in triage LIANCE AIDE William Unger RN - 07/13/2017 2:54 AM CST Pt offered a neb in triage despite clear lungs. Pt could not make up mind. I advised her that I needed to see other people and to let me know what she wanted to do. She went back to [place] LIANCE AIDE documented in this encounter Plan of Treatment Not on filedocumented as of this encounter Visit Diagnoses Not on filedocumented in this encounter Active and Recently Administered Medications Care Teams Operations Developer Relationship Specialty Start Date End Date Justin Loya MD PCP - General Family Practice 02/19/11 [facility] [address] [place] [id number] Silas Santiago MD MD Pain Clinic 11/29/13 [facility] [address] [place], [place] [id number] documented as of this encounter
--- OUTSIDE RECORDS SUMMARY | 2022-06-23 17:44 | XMS_ITS | Encounter Summary ---
:1990 Author Organization [place] Address [address] [facility] [place] [address] Care Team Providers Name Role Phone uJstin Loya MD Primary Care Provider Silas Santiago MD Unavailable Reason for Visit Reason Comments Abdominal Pain Chest Pain Encounter Details Date Type Department Care Team Description 05/25/2017 Emergency [facility] Lisy Whelan Ab dominal pain, epigastric; [facility] Emergency Dep t Gastritis without bleeding, unspecified chronicity, unspecified gastritis type [address] [place] [id number] [phone] (Wo rk) Social History Tobacco Use Types Packs/Day Years Used Date Smoking Tobacco: Never Smokeless Tobacco: Never Alcohol Use Standard Drinks/Week Comments No 0 (1 standard drink = 0.6 oz pure alcoho l) Sex Assigned at Date Recorded Not on file documented as of this encounter Last Filed Vital Signs Vital Sign Reading Time Taken Comments Blood Pressure 125/87 05/25/2017 9:39 PM MONOTYPE OPERATOR Pulse 97 05/25/2017 7:57 PM MONOTYPE OPERATOR Temperature 36.5 ??C (97.7 ??F) 05/25/2017 7:57 PM MONOTYPE OPERATOR Respiratory Rate 16 05/25/2017 11:09 PM MONOTYPE OPERATOR Oxygen Saturation 97% 05/25/2017 11:00 PM MONOTYPE OPERATOR Inhaled Oxygen Concentration - - Weight - - Height - - Body Mass Index - - documented in this encounter Discharge Instructions Discharge InstructionsLisy Whelan MD - 05/25/2017 10:50 PM MONOTYPE OPERATOR Images from the original note were not included. Sit up after eating. Major diet. Avoid spicy or fatty foods. Avoid smoking or carbonated beverages. Use the ant-acid medication every day (zantac, pepcid, etc). Maalox or pepto bismol for break through pain/gastritis. Followup with your doctor in 1-2 days. Repeat fasting ultrasound if still having symptoms. Epigastric Pain (Uncertain Cause) ?? Epigastric pain can be a sign of disease in the upper abdomen. Common causes include: ?? Acid reflux (stomach acid flowing up into the esophagus) ?? Gastritis (irritation of the stomach lining) ?? Peptic Ulcer Disease ?? Inflammation of the pancreas ?? Gallstone ?? Infection in the gallbladder Pain may be dull or burning. It may spread upward to the chest or to the back. There may be other symptoms such as belching, bloating, cramps or hunger pains. There may be weight loss or poor appetite,nausea or vomiting. Since the diagnosis of your pain is not certain yet, further tests may sometimes??be needed. Sometimes the doctor will treat you for the most likely condition to see if there is improvement before doing further tests. Home care Medicines ?? Antacids help neutralize the normal acids in your stomach. Examples are Maalox, Mylanta, Rolaids,and Tums. If you don???t like the liquid, you can also try a chewable one. You may find one works better than another for you. Overuse can cause diarrhea or constipation. ?? Acid blockers (H2 blockers) decrease acid production. Examples are cimetidine (Tagamet), famotidine (Pepcid) and ranitidine (Zantac). ?? Acid inhibitors (PPIs) decrease acid production in a different way than the blockers. You may find they work better, but can take a little longer to take effect.?? Examples are omeprazole (Prilosec), lansoprazole (Prevacid), pantoprazole (Protonix), rabeprazole (Aciphex), and esomeprazole (Nexium). ?? Take an antacid 30-60??minutes after eating and at bedtime, but not at the same time as an acid luisana. ?? Try not to take NSAIDs. Aspirin may also cause problems, but if taking it for your heart or othermedical reasons, talk to your doctor before stopping it; you do not want to cause a worse problem, like a heart attack or stroke. Diet ?? If certain foods seem to cause your spasm, try to avoid them.? Eat slowly and chew food well before swallowing. Symptoms of gastritis can be worsened by certainfoods. Limit or avoid fatty, fried, and spicy foods, as well as coffee, chocolate, mint, and foods with high acid content such as tomatoes and citrus fruit and juices (orange, grapefruit, lemon). ?? Avoid alcohol, caffeine, and tobacco, which can delay healing??and worsen your problem. ?? Try eating smaller meals with snacks in between Follow-up care Follow up with your healthcare provider or as advised. When to seek medical advice Call your healthcare provider right away if any of the following occur: ?? Stomach pain worsens or moves to the right lower part of the abdomen ?? Chest pain appears, or if it worsens or spreads to the chest, back, neck, shoulder, or arm ?? Frequent vomiting (can???t keep down liquids) ?? Blood in the stool or vomit (red or black color) ?? Feeling weak or dizzy, fainting, or having trouble breathing ?? Fever of 100.4??F (38??C) or higher, or as directed by your healthcare provider ?? Abdominal swelling Date Last Reviewed: 04/13/2015 ?? [phone] [employer]. [address] [place] [address], [place] [address]. All rights reserved. This information is not intended as a substitute for professional medical care. Always follow your healthcare professional's instructions. TYPE OPERATOR AttachmentsThe following attachments cannot be sent through Care Everywhere. GASTRITIS (ADULT) (WOLOF)documented in this encounter Medications at Time of [...] documented as of this encounter ED Notes Soila Doyle RN - 05/25/2017 10:04 PM CST Pt refused Xray and wishes to wait on ultrasound result. Pt also refused PIV at this time. Requesting lab to use a butterfly needle for blood draw. MD Whelan updated. TYPE OPERATOR Soila Doyle RN - 05/25/2017 8:43 PM CST VSS. O2 100% RA. Pt began calming after conversation. Pt postponing PIV until after ultrasound. TYPE OPERATOR Mathew Roberts RN - 05/25/2017 8:42 PM CST Pt extremely anxious after GI cocktail saying I cant swallow. Pt very jittery refusing PIV and Pepcid at this time. TYPE OPERATOR Mathew Roberts RN - 05/25/2017 7:55 PM CST Pt arrives today with abdominal and chest pain starting Thursday. Pt says it has not been getting any better so she decides to come in. Pt hx of DVT and very anxious. ABCs intact, A/O x4. Lisy Lemus MD - 05/25/2017 7:49 PM CST History Chief Complaint: Abdominal Pain HPI Destiney J Ange is a 26 year old female who presents to the emergency department today with epigastric abdominal pain that radiates into her chest. The patient reports abdominal pain that started two days ago, that travels upwards and gets worse when she eats, is associated with chest pain. Eating spi cy or fatty foods makes the pain worse. She took Tums which did not help, and yesterday her stool looked more greasy than lele. The patient denies constipation, vomiting, blood in stool, difficulty urinating. She has not stooled today, but had a BM yesterday (which was looser than normal yesterday). Of note,the patient has a history of DVT, she is on blood thinner xarelto. Patient had a normal BM several days ago. No melena or hematochezia. No fevers. Patient was in the ED on 05/20 and had a LUE ultrasound as noted below. 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 The patient has been on xarelto since that time. US UPPER EXTREMITY VENOUS DUPLEX LEFT 05/20/2017 10:36 PM ?? HISTORY: Pain, known left IJ clot, fall, worsening pain. ?? TECHNIQUE: Venous Doppler US including color flow and Doppler waveform analysis. ?? FINDINGS: Thrombus is seen within the left internal jugular vein, probably decreased in size to 1.4 cm from 2.5 cm on 04/04/2017. No thrombus was observed within the left subclavian, axillary, cephalic, basilic, brachial, radial, or ulnar veins. ? IMPRESSION: Left internal jugular venous thrombus, decreased in size since 04/04/2017. ?? HUGO GROVES MD Allergies: Cefzil [Cefprozil] Ciprofloxacin Penicillin G Medications: Xarelto Valium Past Medical History: Anxiety Back pain DVT Insomnia Past Surgical History: Decompression lumbar Myringotomy Tonsillectomy [place] teeth Family History: History reviewed. No pertinent family history. Social History: The patient was alone. Smoking Status: Never Smokeless Tobacco: Never Alcohol Use: No Marital Status: Single Review of Systems Cardiovascular: Positive for chest pain. Gastrointestinal: Positive for abdominal pain and nausea. Negative for blood in stool, constipation,diarrhea and vomiting. Genitourinary: Negative for difficulty urinating and dysuria. Psychiatric/Behavioral: The patient is nervous/anxious. All other systems reviewed and are negative. Pt arrives today with abdominal and chest pain starting Thursday. Pt says it has not been getting any better so she decides to come in. Pt hx of DVT and very anxious Physical Exam Patient Vitals for the past 24 hrs: BP Temp Temp src Pulse Heart Rate Resp SpO2 05/25/179 - - - - - 16 - 05/25/17 230 - - - - - - 97 % 05/25/172235 - - - - - - 96 % 05/25/172234 - - - - - - 96 % 05/25/172226 - - - - - - 97 % 05/25/172208 - - - - - - 98 % 05/25/172206 - - - - - - 100 % 05/25/172144 - - - - - - 98 % 05/25/172139 - - - - - - 100 % 05/25/172138 125/87 - - - - - - 05/25/172113 - - - - - - 99 % 05/25/172112 - - - - 77 - 99 % 05/25/172099 - - - - - - 98 % 05/25/172051 - - - - - - 97 % 05/25/172045 - - - - - - 98 % 05/25/171956 129/84 97.7 ??F (36.5 ??C) Oral 97 97 - 100 % Physical Exam GEN: patient smiling, no distress, SO at the bedside HEAD: atraumatic, normocephalic EYES: pupils reactive, conjunctivae normal ENT: TMs flat and white bilaterally, oropharynx normal with no erythema or exudate, mucus membranes dry NECK: no cervical LAD RESPIRATORY: no tachypnea, breath sounds clear to auscultation (no rales, wheezes, rhonchi), chest wall nontender, normal phonation CVS: normal S1/S2, no murmurs/rubs/gallops ABDOMEN: soft, ?slight tenderness in epigastric region, no masses or organomegaly, no rebound, positive bowel sounds BACK: no costovertebral angle tenderness EXTREMITIES: intact pulses x 2 (radial pulses intact), no edema SKIN: warm and dry NEURO: Overall symmetrical exam HEME: no bruising Emergency Department Course ECG: Indication: Chest pain Completed at 1957. Read at 1957. Normal sinus rhythm Normal ECG Rate 93 bpm. AK interval 152. QRS duration 78. QT/QTc 354/440. P-R-T axes 75 64 68. Normal axis. No STEMI. Imaging: Radiology findings were communicated with the patient who voiced understanding of the findings. Abdomen US, limited IMPRESSION: ??Contracted gallbladder. No obvious gallstones or bile duct dilatation. No evidence of fatty liver infiltration. Report per radiology CXR- declined by the patient Laboratory: Laboratory findings were communicated with the patient who voiced understanding of the findings. CBC: AWNL (WBC 7.5, HGB 14.0, PLT 253) CMP: 3.3(L) Potassium o/w WNL (Creatinine 0.66) Lipase: 113 Troponin (Collected 2200): <0.015 UA: clear, yellow urine with 8.0(H) pH and few bacteria o/w WNL : negative Interventions: 2038: GI Cocktail 30mg PO IV and other medicines deferred by the patient Emergency Department Course: Nursing notes and vitals reviewed. 1957: I performed an exam of the patient as documented above. The patient provided a urine sample here in the emergency department. This was sent for laboratory testing, findings above. IV was inserted and blood was drawn for laboratory testing, results above. The patient was sent for a Abdomen US while in the emergency department, results above. 9:19 PM Patient thus far refusing Pepcid and IV, awaiting labs 10:36 PM In room to updated patient Discussed results with patient. Gave patient copies of results (applicable labs, CT scans and/or ultrasound). Answered questions. 2245: Findings and plan explained to the Patient. Patient discharged home with instructions regarding supportive care, medications, and reasons to return. The importance of close follow-up was reviewed. I personally reviewed the laboratory and imaging results with the Patient and answered all related questions prior to discharge. BP 125/87 Pulse 97 Temp 97.7 ??F (36.5 ??C) (Oral) Resp 16 LMP 05/02/2017 (Exact Date) SpO2 97% Discussed results with patient. Gave patient copies of results (applicable labs, CT scans and/or ultrasound). Answered questions. Asked patient to followup with PCP. SO at the bedside. Impression & Plan Medical Decision Making: Destiney Cassidy is a pleasant 26 year old female who does have a significant history of a left internal jugular DVT for which she's on Xarelto who presents with epigastric abdominal pain and nausea. The patient states that its worse whenever she eats spicy or fatty foods and she presents epigastric discomfort that radiates into her chest. She is concerned that she could possibly be having a heart attack (recent diagnoses of jugular DVT). The patient had an EKG that demonstrated normal sinus rhythm with no evidence of ST elevation. We did advise getting a chest X-Ray but she has refused that imaging modality. Lung sounds clear with no evidence of tachypnea or respiratory distress. The patient describes pain that gets worse after eating and I did think that possibly it could be astomach etiology and/gallbladder. The patient was taken to Ultrasound, but her gallbladder was contracted because she had recently eaten (ie could not be ruled out that stones were present). The patient refused an IV and Zantac and other medications. She did try a GI cocktail which she stated only provided partial relief. Her labs have come back showing that she has a normal white cell count and lipase is negative showing no evidence of pancreatitis. Potassium is a little bit low at 3.3, and Troponin does not show any ischemia and urinalysis is negative for infection. The patient is declining an IV, Zantac, Pepsin, andother further modalities. I do want her to follow up with primary care and if she is still having symptoms she may need to repeat the ultrasound because she was not fasting for today's examination. In the meantime she should avoid spicy food, sit up after eating, and she was given copies of her studies. The patient also refused a Chest X-Ray but she had normal breast sounds and I did not suspect aortic dissection and/or pneumothorax or pneumonia. Plan to start the patient on H2 blockers. Diagnosis: ICD-10-CM 1. Abdominal pain, epigastric R10.13 HCG qualitative urine HCG qualitative urine CANCELED: HCG qualitative urine 2. Gastritis without bleeding, unspecified chronicity, unspecified gastritis type K29.70 Disposition: discharged to home Instructions to patient: Sit up after eating. Major diet. Avoid spicy or fatty foods. Avoid smoking or carbonated beverages. Use the ant-acid medication every day (zantac, Pepcid, etc). Maalox or Pepto bismol for break through pain/gastritis. Followup with your doctor in 1-2 days. Repeat fasting ultrasound if still having symptoms. Scribe Disclosure: I, Desiree Lees, am serving as a scribe at 7:58 PM on 05/25/2017 to document services personally performed by Lisy Whelan MD based on my observations and the provider's statements to me. 05/25/2017 [facility] EMERGENCY DEPARTMENT Lisy Whelan MD 05/26/17 1252 TYPE OPERATOR documented in this encounter Plan of Treatment Not on filedocumented as of this encounter Procedures Procedure Name Priority Date/Time Associated Comments Diagnosis CBC WITH PLATELETS & STAT 05/25/2017 10:01 Res ults for this DIFFERENTIAL PM MONOTYPE OPERATOR procedure are i n the results section. TROPONIN I STAT 05/25/2017 10:01 Results for this PM MONOTYPE OPERATOR procedure are i n the results section. LIPASE STAT 05/25/2017 10:01 Results for this PM MONOTYPE OPERATOR procedure are i n the results section. COMPREHENSIVE STAT 05/25/2017 10:01 Results fo r this METABOLIC PANEL PM MONOTYPE OPERATOR procedure ar e in the results section. US ABDOMEN LIMITED STAT 05/25/2017 9:43 PM Res ults for this MONOTYPE OPERATOR procedure are i n the results section. HCG QUALITATIVE URINE Routine 05/25/2017 8:43 PM Abdominal magdi n, Results for this MONOTYPE OPERATOR epigastric procedure are i n the results section. ROUTINE UA WITH STAT 05/25/2017 8:43 PM Result s for this MICROSCOPIC MONOTYPE OPERATOR procedure are i n the results section. EKG 12-LEAD, TRACING STAT 05/25/2017 7:58 PM R esults for this ONLY MONOTYPE OPERATOR procedure are i n the results section. documented in this encounter Results Troponin I (05/25/2017 10:01 PM MONOTYPE OPERATOR) P athologist Signature Troponin I ES <0.015 0.000 - 05/25/2017 [place] 0.045 ug/L 10:29 PM [facility] Comment: The 99th percentile for upper reference range is 0.045 ug/L. ??Troponin values in the range of 0.045 - 0.120 ug/L november e associated with risks of adverse clinical events. Specimen Anatomical Collection Method Collection Time Receive d Time (Source) Location / / Volume Laterality Blood specimen 05/25/2017 10:01 7 (specimen) PM MONOTYPE OPERATOR 10:06 PM MONOTYPE OPERATOR Lisy Whelan MD LAB - BLOOD ORDERABLES Performing Organization Address City/[facility]/ZIP [facility] Phon e Number [facility] [address] [place], [place] [address] [place] [address] [address] [place] [id number], [facility] [phone] Lipase (05/25/2017 10:01 PM MONOTYPE OPERATOR) athologist Signature Lipase 113 73 - 393 05/25/2017 [facility] U/L 10:29 PM [facility] Specimen Anatomical Collection Method Collection Time Receive d Time (Source) Location / / Volume Laterality Blood specimen 05/25/2017 10:01 7 (specimen) PM MONOTYPE OPERATOR 10:06 PM MONOTYPE OPERATOR Lisy Whelan MD LAB - BLOOD ORDERABLES Performing Organization Address City/[facility] e Number [facility] [address], [place] [address] [place] [address] [address] [place], [place] [address] 7, [facility] [phone] (ABNORMAL) Comprehensive metabolic panel (05/25/2017 10:01 PM MONOTYPE OPERATOR) athologist Signature Sodium 137 133 - 144 05/25/2017 [place] mmol/L 10:29 PM [facility] Potassium 3.3 (L) 3.4 - 5.3 05/25/2017 [place] mmol/L 10:29 PM [facility] Chloride 105 94 - 109 05/25/2017 [place] mmol/L 10:29 PM [facility] Carbon Dioxide 25 20 - 32 05/25/2017 [place] mmol/L 10:29 PM [facility] Anion Gap 7 3 - 14 05/25/2017 [place] mmol/L 10:29 PM [facility] Glucose 81 70 - 99 05/25/2017 [place] mg/dL 10:29 PM [facility] Urea Nitrogen 13 7 - 30 05/25/2017 [place] mg/dL 10:29 PM [facility] Creatinine 0.66 0.52 - 05/25/2017 [place] 1.04 mg/dL 10:29 PM [facility] GFR Estimate >90 >60 05/25/2017 [place] mL/min/1.7 10:29 PM [place] [address] [facility]PITAL Comment: Non GFR Calc GFR Estimate If >90 >60 mL/min/1.7m2 05/25/2017 10:29 PM [facility] Comment: GFR Calc Calcium 8.7 8.5 - 10.1 mg/dL 05/25/2017 10:29 PM [facility] Bilirubin Total 1.2 0.2 - 1.3 mg/dL 05/25/2017 10:29 P [facility] Albumin 3.8 3.4 - 5.0 g/dL 05/25/2017 10:29 PM [facility] Protein Total 7.3 6.8 - 8.8 g/dL 05/25/2017 10:29 PM [facility] Alkaline Phosphatase 47 40 - 150 U/L 05/25/2017 10:29 PM [facility] ALT 22 0 - 50 U/L 05/25/2017 10:29 PM [facility] AST 12 0 - 45 U/L 05/25/2017 10:29 PM [facility] Specimen Anatomical Collection Method Collection Time Receive d Time (Source) Location / / Volume Laterality Blood specimen 05/25/2017 10:01 7 (specimen) PM MONOTYPE OPERATOR 10:06 PM MONOTYPE OPERATOR Lisy Whelan MD LAB - BLOOD ORDERABLES Performing Organization Address City/State/ZIP Code Phon e Number [facility] [address] [place], [place] [address] [facility] [address] [phone] CBC with platelets differential (05/25/2017 10:01 PM MONOTYPE OPERATOR) [facility] Method Time Signature WBC 7.5 4.0 - 05/25/2017 [facility] 11.0 10:08 PM [facility] 10e9/L [facility] RBC Count 4.59 3.8 - 5.2 05/25/2017 [facility] 10e12/L 10:08 PM [facility] Hemoglobin 14.0 11.7 - 05/25/2017 [facility] 15.7 g/dL 10:08 [facility] Hematocrit 40.5 35.0 - 05/25/2017 [facility] 47.0 % 10:08 PM [facility] MCV 88 78 - 100 05/25/2017 [facility] fl 10:08 [facility] MCH 30.5 26.5 - 05/25/2017 [facility] 33.0 pg 10:08 [facility] MCHC 34.6 31.5 - 05/25/2017 [facility] 36.5 g/dL 10:08 [facility] RDW 11.6 10.0 - 05/25/2017 [facility] 15.0 % 10:08 [facility] Platelet Count 253 150 - 450 05/25/2017 [facility] 10e9/L 10:08 [facility] Diff Method Automated 05/25/2017 [facility] Method 10:08 [facility] % Neutrophils 58.7 % 05/25/2017 [facility] 10:08 PM [facility] % Lymphocytes 29.3 % 05/25/2017 [facility] 10:08 PM [facility] % Monocytes 9.2 % 05/25/2017 [facility] 10:08 [facility] % Eosinophils 1.6 % 05/25/2017 [facility] 10:08 [facility] % Basophils 0.9 % 05/25/2017 [facility] 10:08 PM [facility] % Immature 0.3 % 05/25/2017 [facility] Granulocytes 10:08 [facility] Nucleated RBCs 0 0 /100 05/25/2017 [facility] 10:08 PM [facility] Absolute 4.4 1.6 - 8.3 05/25/2017 [facility] Neutrophil 10e9/L 10:08 [facility] Absolute 2.2 0.8 - 5.3 05/25/2017 [facility] Lymphocytes 10e9/L 10:08 [facility] Absolute 0.7 0.0 - 1.3 05/25/2017 [facility] Monocytes 10e9/L 10:08 [facility] Absolute 0.1 0.0 - 0.7 05/25/2017 [place] Eosinophils 10e9/L 10:08 PM [facility] Absolute 0.1 0.0 - 0.2 05/25/2017 [place] Basophils 10e9/L 10:08 PM [facility] Abs Immature 0.0 0 - 0.4 05/25/2017 [place] Granulocytes 10e9/L 10:08 PM [facility] Absolute 0.0 05/25/2017 [place] Nucleated RBC 10:08 PM [facility] Specimen Anatomical Collection Method Collection Time Receive d Time (Source) Location / / Volume Laterality Blood specimen 05/25/2017 10:01 7 (specimen) PM MONOTYPE OPERATOR 10:06 PM MONOTYPE OPERATOR Lisy Whelan MD LAB - BLOOD ORDERABLES Performing Organization Address City/State/ZIP Code Phon e Number [place] [address] [address] [place] [address] [facility] [address] [phone] Abdomen US, limited (RUQ only) (05/25/2017 9:43 PM MONOTYPE OPERATOR) Anatomical Region Laterality Modality Abdomen/Pelvis Ultrasound Specimen (Source) Anatomical Location Collection Method / Collectio n Time Received Time / Laterality Volume Impressions 05/25/2017 9:56 PM MONOTYPE OPERATOR IMPRESSION: ??Contracted gallbladder. No obvious gallstones or bile duct dilatation. No evidence of fatty li rachel infiltration. LD PALACIOS MD Narrative 05/25/2017 9:56 PM MONOTYPE OPERATOR US ABDOMEN LIMITED 05/25/2017 9:43 PM HISTORY: Abdominal pain. FINDINGS: ??Liver is normal in echogenic ity without focal lesions. The gallbladder is contracted as patient rec ently ate. No shadowing gallstones are appreciated. Common bile duct is normal in diameter. Pancreas is normal where visualized. Exa mination of the right kidney is unremarkable. Procedure Note Ld Palacios MD - 05/25/2017Form atting of this note might be different from the original. US ABDOMEN LIMITED 05/25/2017 9:43 PM HISTORY: Abdominal pain. FINDINGS: Liver is normal in echogenicit y without focal lesions. The gallbladder is contracted as patient rec ently ate. No shadowing gallstones are appreciated. Common bile duct is normal in diameter. Pancreas is normal where visualized. Exa mination of the right kidney is unremarkable. IMPRESSION: Contracted gallbladder. No o bvious gallstones or bile duct dilatation. No evidence of fatty li rachel infiltration. LD PALACIOS MD Lisy Whelan MD IMG US ORDERABLES HCG qualitative urine (05/25/2017 8:43 PM MONOTYPE OPERATOR) athologist Signature HCG Qual Urine Negative NEG^Negati 05/25/2017 [place] ve 11:08 PM [facility] [facility] Comment: This test is for screening purposes. ??R esults should be interpreted along with the clinical picture. ??Confirmation te sting is available if warranted by ordering [id number], HCG Quantitative Pregna ncy. Specimen Anatomical Collection Method Collection Time Receive d Time (Source) Location / / Volume Laterality 05/25/2017 8:43 PM 7 8:52 MONOTYPE OPERATOR PM MONOTYPE OPERATOR Lisy Whelan MD LAB - URINE ORDERABLES Performing Organization Address City/State/ZIP Code Phon e Number [facility] [address] [address] [facility] [address] [phone] (ABNORMAL) UA with Microscopic (05/25/2017 8:43 PM MONOTYPE OPERATOR) Patholo gist Method Time Signature Color Urine Yellow 05/25/2017 [facility] 9:00 PM [facility] Appearance Urine Clear 05/25/2017 [facility]00 PM [facility] Glucose Urine Negative NEG^Negat 05/25/2017 [place] stephanie mg/dL 9:00 PM [facility] Bilirubin Urine Negative NEG^Negat 05/25/2017 [place] stephanie 9:00 PM [facility] Ketones Urine Negative NEG^Negat 05/25/2017 [place] stephanie mg/dL 9:00 PM [facility] Specific [place] 1.016 1.003 - 05/25/2017 [place] Urine 1.035 9:00 PM [facility] Blood Urine Negative NEG^Negat 05/25/2017 [place] stephanie 9:00 PM [facility] pH Urine 8.0 (H) 5.0 - 7.0 05/25/2017 [place] pH 9:00 PM [facility] Protein Albumin Negative NEG^Negat 05/25/2017 [place] Urine stephanie mg/dL 9:00 PM [facility] Urobilinogen 0.0 0.0 - 2.0 05/25/2017 [place] mg/dL mg/dL 9:00 PM [facility] Nitrite Urine Negative NEG^Negat 05/25/2017 [place] stephanie 9:00 PM [facility] Leukocyte Negative NEG^Negat 05/25/2017 [place] Esterase Urine stephanie 9:00 PM [facility] Source Midstream 05/25/2017 [place] Urine 8:53 PM [facility] WBC Urine 1 0 - 2 05/25/2017 [facility] /HPF 9:00 PM [facility] RBC Urine <1 0 - 2 05/25/2017 [facility] /HPF 9:00 PM [facility] Bacteria Urine Few (A) NEG^Negat 05/25/2017 [place] stephanie /HPF 9:00 PM [facility] Squamous <1 0 - 1 05/25/2017 [place] Epithelial /HPF /HPF 9:00 PM [facility] Specimen (Source) Anatomical Collection Method Collection Time Re ceived Time Location / / Volume Laterality Examination of URINE SPECIMEN 05/25/2017 8:43 05/25/20 17 8:52 midstream urine OBTAINED BY CLEAN PM MONOTYPE OPERATOR PM MONOTYPE OPERATOR specimen CATCH PROCEDURE / (procedure) Unknown Lisy Whelan MD LAB - URINE ORDERABLES Performing Organization Address City/State/ZIP Code Phon e Number [facility] [address] [address] [facility] [address] [phone] EKG 12 lead (05/25/2017 7:58 PM MONOTYPE OPERATOR) [facility] gist Method Time Signature Interpretation ECG Click View RADIOLOGY Image link RESULTS to view waveform and result Specimen (Source) Anatomical Collection Method Collection Time Re ceived Time Location / / Volume Laterality 05/25/2017 7:58 PM MONOTYPE OPERATOR Lisy Whelan MD ECG ORDERABLES Performing Organization Address City/State/ZIP Code Phon e Number RADIOLOGY RESULTS documented in this encounter Visit Diagnoses Diagnosis Abdominal pain, epigastric Gastritis without bleeding, unspecified chronicity, unspecified gastritis type documented in this encounter Administered Medications Inactive Administered Medications - up to 3 most recent administrations Medication Order MAR Action Action Date Dose Rate Site lidocaine (viscous) (XYLOCAINE) 2 Given 05/25/2017 8:39 PM MONOTYPE OPERATOR 3 0 mLs % 15 mL, alum & mag hydroxide-simethicone (MYLANTA ES/MAALOX ES) 15 mL GI Cocktail 30 mL, Oral, ONCE, On Thu05/25/17 at 2006, For 1 dose documented in this encounter Active and Recently Administered Medications Due to Daylight Saving Time, this section may contain times in both CDT and MONOTYPE OPERATOR. Scheduled Medication Order 05/23/2017 05/24/2017 05/25/2017 0.9% sodium chloride BOLUS 2208 (Not Given - Provider: Soila Doyle RN - Reason: Patient/family refused) Intravenous, 500 mL, ONCE, Thu05/25/17 at 2006, For 1 dose famotidine (PEPCID) injection 20 mg 2208 (Not Given - Provider: Soila Doyle RN - Reason: Patient/family refused) 20 mg, Intravenous, ONCE, Thu05/25/17 at 2013, For 1 dose, For ordered doses up to 20 mg, give IV Push diluted with 5-10ml NS over a minimum of 2 minutes. lidocaine (viscous) (XYLOCAINE) 2 % 15 m L, alum & mag hydroxide-simethicone (MYLANTA ES/MAALOX ES) 15 mL GI Cocktail (COMPLETED) 2038 (Given - Provider: Mathew Roberts, ALDO) 30 mL, Oral, ONCE, Thu05/25/17 at 2006, For 1 dose documented in this encounter Care Teams Dehydrogenation Supervisor Relationship Specialty Start Date End Date Justin Loya MD PCP - General Family Practice 02/19/11 [facility] [address] [place] [address] Silas Santiago MD MD Pain Clinic 11/29/13 [facility] [address] [place] [address] documented as of this encounter
--- OUTSIDE RECORDS SUMMARY | 2022-06-23 17:44 | XMS_ITS | Encounter Summary ---
:1990 Author Organization [place] Address [address] [place] [address] Care Team Providers Name Role Phone Justin Loya MD Primary Care Provider Silas Santiago MD Unavailable Reason for Visit (Routine) - Closed Specialty Diagnoses / Procedures Referred By Contact Refer red To Contact Radiology / Diagnoses written order cash [id number] Ultrasound [facility] Radiology. Procedures US VENOUS [address] [place] [address] Phone: Fax: Referral ID Status Reason Start Date Expiration Date Visits Requ ested Visits Authorized [id number] Closed 07/15/2017 07/15/2018 1 1 Encounter Details Date Type Department Care Team Description 08/06/2017 Hospital Encounter [facility] Johan Pollard Deep vein thrombosis [place] Special[facility] MD Ahmet (DVT) of left upper [facility] [place] [facility] extremity, [address] [place] [address] chronicity, [place], [place] unspecified vein (H) [phone] [id number] Social History Tobacco Use Types Packs/Day Years Used Date Smoking Tobacco: Never Smokeless Tobacco: Never Alcohol Use Standard Drinks/Week Comments No 0 (1 standard drink = 0.6 oz pure alcoho l) Sex Assigned at Date Recorded Not on file documented as of this encounter Medications at Time of Discharge Medication Sig Dispensed Refills Start Date End Date dicyclomine (BENTYL) 20 MG Take 1 tablet (20 20 tablet 0 08/13/2017 tablet mg) by mouth 2 times daily for 10 days polyethylene glycol Take 17 g (1 527 [...] Diagnosis Comme nts US UPPER EXTREMITY Routine 08/06/2017 4:46 PM Deep vein thromb osis Results for this VENOUS DUPLEX LEFT PACKAGE HANDLER (DVT) of left upper pr ocedure are in extremity, the results unspecified section. chronicity, unspecified vein (H) documented in this encounter Results US Upper Extremity Venous Duplex Left (08/06/2017 4:46 PM PACKAGE HANDLER) Anatomical Region Laterality Modality Extremity Ultrasound Specimen (Source) Anatomical Location Collection Method / Collectio n Time Received Time / Laterality Volume Impressions 08/06/2017 10:58 PM PACKAGE HANDLER IMPRESSION: Negative for deep venous thrombosis in the left upper extremity. Resolution of previously iden tified nonocclusive left IJ thrombus. GONZALES SALAZAR MD Narrative 08/06/2017 10:58 PM PACKAGE HANDLER US UPPER EXTREMITY VENOUS DUPLEX LEFT ??08/06/2017 4:46 PM HISTORY: Deep vein thrombosis (DVT) of l eft upper extremity, unspecified chronicity, unspecified vein (H). COMPARISON: July 03, 2017 TECHNIQUE: Color Doppler spectral wavefo rm analysis performed throughout the deep veins of the left up per extremity. FINDINGS: The left internal jugular, sub clavian, axillary, and brachial veins demonstrate normal blood flow, compression (where applicable), and augmentation. Cephalic and basilic veins are patent as are the radial and ulnar veins. Procedure Note Gonzales Salazar MD - 08/06/2017 US UPPER EXTREMITY VENOUS DUPLEX LEFT 4:46 PM HISTORY: Deep vein thrombosis (DVT) of l eft upper extremity, unspecified chronicity, unspecified vein (H). COMPARISON: July 03, 2017 TECHNIQUE: Color Doppler spectral wavefo rm analysis performed throughout the deep veins of the left up per extremity. FINDINGS: The left internal jugular, sub clavian, axillary, and brachial veins demonstrate normal blood flow, compression (where applicable), and augmentation. Cephalic and basilic veins are patent as are the radial and ulnar veins. IMPRESSION: Negative for deep venous thr ombosis in the left upper extremity. Resolution of previously iden tified nonocclusive left IJ thrombus. GONZALES SALAZAR MD Johan Pollard MD IMG US ORDERABLES documented in this encounter Visit Diagnoses Diagnosis Deep vein thrombosis (DVT) of left upper extremity, unspecified chronicity, unspecified vein (H) documented in this encounter Care Teams Hotel Engineer Relationship Specialty Start Date End Date Justin Loya MD PCP - General Family Practice 02/19/11 [facility] [address] [phone] Silas Santiago MD MD Pain Clinic 11/29/13 [facility] [address] [place] [address] documented as of this encounter
--- OUTSIDE RECORDS SUMMARY | 2022-06-23 17:44 | XMS_ITS | Encounter Summary ---
:1990 Author Organization [place] Address [address] [facility] [place] [address] Care Team Providers Name Role Phone Justin Loya MD Primary Care Provider Silas Santiago MD Unavailable Reason for Visit Reason Comments Palpitations Encounter Details Date Type Department Care Team Description 06/21/2017 Emergency [facility] Minnie Fregoso, Palpitations; Emergency Dept Anxiety [address] [facility] [place] [address] [address] [facility] [phone] [place], [place] [address] (Wo rk) Social History Tobacco Use Types Packs/Day Years Used Date Smoking Tobacco: Never Smokeless Tobacco: Never Alcohol Use Standard Drinks/Week Comments No 0 (1 standard drink = 0.6 oz pure alcoho l) Sex Assigned at Date Recorded Not on file documented as of this encounter Last Filed Vital Signs Vital Sign Reading Time Taken Comments Blood Pressure 133/86 06/21/2017 12:36 AM LINE PATROLLER Pulse - - Temperature 36.4 ??C (97.6 ??F) 06/21/2017 12:36 AM LINE PATROLLER Respiratory Rate 18 06/21/2017 12:36 AM LINE PATROLLER Oxygen Saturation 100% 06/21/2017 12:36 AM LINE PATROLLER Inhaled Oxygen Concentration - - Weight - - Height - - Body Mass Index - - documented in this encounter Discharge Instructions Discharge InstructionsMinnie Fregoso MD - 06/21/2017 1:06 AM LINE PATROLLER Discuss with your doctor having labs done to ensure you are up to date with evaluation of: Electrolytes, Hemoglobin, Thyroid testing PATROLLER AttachmentsThe following attachments cannot be sent through Care Everywhere. PALPITATIONS (THAI)documented in this encounter Medications at Time of [...] documented as of this encounter ED Notes Sybil Hammonds RN - 06/21/2017 12:37 AM CST Patient presents to ED due to palpitations. States had dx blood clot 2-3 months ago, is taking prescribed xaerlto . Patient appears to be anxious. Reports having a glass of wine this evening. im nervous that I may be in A fib ABC intact A/O x4 PATROLLER Minnie Fregoso MD - 06/21/2017 12:33 AM CST History Chief Complaint: Palpitations HPI Destiney Cassidy is a 26 year old female who presents to the emergency department today for evaluation of palpitations and is accompanied by her . The patient states that she was diagnosed with a blood clot in her left jugular near the clavicle on ultrasound in March 2017, was started on Xar elto, and reports increased anxiety and anxiety attacks since then. Tonight, the patient states thatshe had one glass of wine on an empty stomach, which is different for her as she normally doesn't drink. She then began to have palpitations with the sensation of a stop and go racing heartbeat. She checked her heart rate and found it to be between 95-100 which is higher than her normal rate of 80. The patient also reports some shooting left neck pain earlier this evening which she thinks may be muscular in nature, but denies any neck pain with movement, cough, runny nose, or sore throat. Of note,the patient follows with a counselor and primary doctor, and occasionally uses lorazepam as prescribed, but chose to forgo a prescription for Zoloft as she prefers not to take medications. She is scheduled to take Xarelto for three more days, and notes that she has not had a thyroid check in nearly a year. Allergies: Cefzil [Cefprozil] Ciprofloxacin Penicillin G Medications: Xarelto Ativan Past Medical History: DVT in Anxiety Insomnia Low back pain Past Surgical History: Decompression lumbar minimally invasive one level Myringotomy, insert tube bilateral, combined Tonsillectomy [place] teeth Family History: Atrial fibrillation - father Social History: The patient was accompanied to the ED by her . Smoking Status: Never smoker Smokeless Tobacco: Never used Alcohol Use: Rarely Marital Status: Single [1] Review of Systems HENT: Negative for rhinorrhea and sore throat. Respiratory: Negative for cough. Cardiovascular: Positive for palpitations. Musculoskeletal: Positive for neck pain. All other systems reviewed and are negative. Physical Exam Vitals: Patient Vitals for the past 24 hrs: BP Temp Temp src Heart Rate Resp SpO2 06/21/17 0036 133/86 97.6 ??F (36.4 ??C) Temporal 103 18 100 % Physical Exam Eyes: Sclera white; Pupils are equal and round ENT: External ears and nares normal CV: Rate as above with regular rhythm Neck w/o bruit, no palpable cord, no swelling or redness Strong radial pulse, no swelling in arm Resp: Breath sounds clear and equal bilaterally GI: Abdomen is soft, non-tender, non-distended MS: Moves all extremities Skin: Warm and dry Neuro: Speech is normal and fluent. No apparent deficit. Psych: Frequently rubbing L neck Emergency Department Course ECG: ECG taken at 0045, ECG read at 0050 Normal sinus rhythm Normal ECG Rate 88 bpm. RI interval 170. QRS duration 78. QT/QTc 360/435. P-R-T axes 68 65 51. Emergency Department Course: Nursing notes and vitals reviewed. I performed an exam of the patient as documented above. EKG obtained while in the emergency department, results above. I discussed the treatment plan with the patient and her . They expressed understanding of this plan and consented to discharge. She will be discharged home with instructions for care and follow up. In addition, the patient will return to the emergency department if their symptoms worsen, if newsymptoms arise or if there is any concern. All questions were answered. Impression & Plan Medical Decision Making: Destiney Cassidy is a 26 year old female who presents for evaluation of palpitations. A broad differential diagnosis was considered including SVT, Atrial fibrillation, ventricular arrhythmia, thyroid disease, acute electrolyte abnormality, drugs/medications, caffeine intake or other stimulants, medication side effect, anemia, heart disease, PE, etc. PE felt unlikely while on Xarelto. I discussed recommendation for blood work but patient's main concern had been dysrhythmia. She and her would like to simply follow up in clinic for thyroid re-evaluation. Understands that there could be a delayin diagnosis and are asking appropriate questions. Neck pain w/o evidence of infection or palpable cord. No need for emergent imaging. Diagnosis: ICD-10-CM 1. Palpitations R00.2 2. Anxiety F41.9 Disposition: Home Scribe Disclosure: Adan Whipple, am serving as a scribe at 12:50 AM on 06/21/2017 to document services personally performed by Minnie Fregoso MD, based on my observations and the provider's statements to me. 06/21/2017 [facility] EM[facility] Minnie Fregoso MD 06/21/17 0753 PATROLLER documented in this encounter Plan of Treatment Not on filedocumented as of this encounter Procedures Procedure Name Priority Date/Time Associated Diagnosis Comme nts EKG 12-LEAD, STAT 06/21/2017 12:45 AM Results for this TRACING ONLY LINE PATROLLER procedure are i n the results section. documented in this encounter Results EKG 12 lead (06/21/2017 12:45 AM LINE PATROLLER) Patholo gist Method Time Signature Interpretation ECG Click View RADIOLOGY Image link RESULTS to view waveform and result Specimen (Source) Anatomical Collection Method Collection Time Re ceived Time Location / / Volume Laterality 06/21/2017 12:45 AM LINE PATROLLER Minnie Fregoso MD ECG ORDERABLES Performing Organization Address City/State/ZIP Code Phon e Number RADIOLOGY RESULTS documented in this encounter Visit Diagnoses Diagnosis Palpitations Anxiety Anxiety state, unspecified documented in this encounter Care Teams Qual Research Manager Relationship Specialty Start Date End Date Justin Loya MD PCP - General Family Practice 02/19/11 [facility] [address] [place] [phone] Silas Santiago MD MD Pain Clinic 11/29/13 [facility] [address] [place] [address] documented as of this encounter
--- OUTSIDE RECORDS SUMMARY | 2022-06-23 17:44 | XMS_ITS | Encounter Summary ---
:1990 Author Organization [facility] Address [address] [place] [address] Care Team Providers Name Role Phone Justin Loya MD Primary Care Provider Silas Santiago MD Unavailable Reason for Visit Reason Comments bruise Encounter Details Date Type Department Care Team Description 05/20/2017 Emergency [facility] John Stapleton, in itial encounter; [facility] Emergency Dep jennifer Gary MD Contusion of left forearm, initial encou nter; [address] [facility] Internal jugular (IJ) vein t hromboembolism, chronic, left (H) [place], [place] [id number] [address] [phone] [facility] [address] [place], [place] [id number] (Wo rk) Social History Tobacco Use Types Packs/Day Years Used Date Smoking Tobacco: Never Smokeless Tobacco: Never Alcohol Use Standard Drinks/Week Comments No 0 (1 standard drink = 0.6 oz pure alcoho l) Sex Assigned at Date Recorded Not on file documented as of this encounter Last Filed Vital Signs Vital Sign Reading Time Taken Comments Blood Pressure 122/83 05/20/2017 9:16 PM CDT Pulse 93 05/20/2017 9:16 PM CDT Temperature 36.9 ??C (98.5 ??F) 05/20/2017 9:16 PM CDT Respiratory Rate 16 05/20/2017 9:16 PM CDT Oxygen Saturation 100% 05/20/2017 9:16 PM CDT Inhaled Oxygen Concentration - - Weight - - Height - - Body Mass Index - - documented in this encounter Discharge Instructions Discharge John Hill MD - 05/20/2017 10:56 PM CDT Images from the original note were not included. Please make an appointment to follow up with your primary care provider in 4-5 days if not improving. Understanding Bone Bruise (Bone Contusion) A bone bruise is an injury to a bone that is less severe than a bone fracture. Bone bruises are fairly common. They can happen to people of all ages. Any type of bone in your body can be bruised. Otherinjuries often happen along with a bone bruise, such as damage to nearby ligaments. What happens when a bone is bruised? Bone is made of different kinds of tissue. The periosteum is a thin layer of tissue that covers mostof a bone. Where bones come together, there is usually a layer of cartilage at the edges. The bone here is called subchondral bone. Deep inside the bone is an area called the medulla. It contains the bone marrow and fibrous tissue called trabeculae. With a bone fracture, all of the trabeculae in a region of bone have broken. But with a bone bruise,an injury only damages some of these trabeculae. An injury might cause blood to build up in the areabeneath the periosteum. This causes a subperiosteal hematoma, a type of bone bruise. An injury mightalso cause bleeding and swelling in the area between your cartilage and the bone beneath it. This causes a subchondral bone bruise. Or bleeding and swelling can occur in the medulla of your bone. This is called an intraosseous bone bruise. What causes a bone bruise? Injury of any kind can cause a bone bruise. Sports injuries, motor vehicle accidents, or falls from a height can cause them. Twisting injuries that cause joint sprains can also cause a bone bruise. Health conditions like arthritis may also lead to a bone bruise. This is because arthritis causes bone surfaces to grind against each other. Child abuse is another cause of bone bruises. Symptoms of a bone bruise Symptoms of a bone bruise can include: ?? Pain and soreness in the injured area ?? Swelling in the area and soft tissues around it ?? Change in color of the injured area ?? Swelling or stiffness of an injured joint This pain is often more severe and lasts longer than a soft tissue injury. How severe your symptoms are and how long they last depends on how severe the bone bruise is. Diagnosing a bone bruise Your healthcare provider will ask you about your medical history and symptoms. He or she will ask how you got your injury. Your provider will examine the injured area to check for pain, bruising, and swelling. After the exam, your health care provider may be able to tell if you have a bone bruise. A bone bruise doesn???t show up on an X-ray. But you may be given an X-ray to rule out a bone fracture. A fracture may need a different kind of treatment. An MRI can confirm a bone bruise. But your healthcare provider will likely only give you an MRI if your symptoms don???t get better. Date Last Reviewed: 10/18/2016 ?? [id number] [employer]. [address] [place] [address]. All rights reserved. This information is not [...] encounter ED Notes William Unger RN - 05/20/2017 9:14 PM CDT Pt on xaralto for DVT in left jugular vein and fell at 6 pm on a chair. Bruising left forearm. Denies hitting head. Pt A&O x 3, CMS x 3, ABCD's adequate in triage John Stapleton MD - 05/20/2017 9:08 PM CDT History Chief Complaint: Bruising HPI Destiney Cassidy is a 26 year old female who presents with bruising while anticoagulated. The patient is currently anticoagulated with Xarelto through March following a DVT in her left left jugularvein. This clot appeared following injection of IV contrast in her arm for an MRI. She now presents to the ED this evening following a fall in her home. She was running down the stairs to deal with a fire alarm going off when she stepped over a dog gate and got caught, causing her to fall forward. Shehit her arm on the back of a chair, but caught herself and did not fall to the floor. Upon arrival here in the ED she has a bruise on her left wrist, but no other injuries. She states that she did not hit her head during the incident. She has been having pain running down her arm that she states is similar to the pain she experienced with her previous clot. While here she also mentions a fall two weeks ago in which she hi her left knee and has had a bruise there since. Aside from her recent clot, the patient has no history of blood clots, although she does have a family history. Allergies: Cefzil Ciprofloxacin Penicillin Medications: Xarelto Valium Past Medical History: Anxiety Lower back pain DVT in Insomnia Past Surgical History: Decompression lumbar minimally invasive one level Myringotomy, insert tube bilateral, combined Tonsillectomy Jeremiah teeth removal Family History: Clots Social History: The patient was accompanied to the ED by her significant other. Smoking Status: No Smokeless Tobacco: No Alcohol Use: No Marital Status: Single Review of Systems Gastrointestinal: Negative for nausea and vomiting. Skin: Negative for wound. Neurological: Negative for syncope. Hematological: Bruises/bleeds easily. All other systems reviewed and are negative. Physical Exam Vitals: Patient Vitals for the past 24 hrs: BP Temp Temp src Pulse Resp SpO2 05/20/17 2116 122/83 98.5 ??F (36.9 ??C) Temporal 93 16 100 % Physical Exam HENT: Right Ear: External ear normal. Left Ear: External ear normal. Nose: Nose normal. Eyes: Conjunctivae and lids are normal. Neck: Neck supple. No JVD present. No tracheal deviation present. Cardiovascular: Regular rhythm and intact distal pulses. Pulmonary/Chest: Breath sounds normal. No respiratory distress. Abdominal: Soft. There is no tenderness. There is no rebound and no guarding. Musculoskeletal: Small hematoma over the ulna at the junction of the distal and medial third of the ulna. Skin intactdistal CMS intact no tenderness or effusion of the elbow or wrist joint. Nl ROM at shoulder, no significant ttp at prox humerus. Neurological: MAEE, no gross focal motor or sensory deficit Skin: Skin is warm and dry. She is not diaphoretic. Psychiatric: She has a normal mood and affect. Nursing note and vitals reviewed. Emergency Department Course Imaging: Radiology findings were communicated with the patient who voiced understanding of the findings. Arm, left, venous US: Left internal jugular venous thrombus, decreased in size since 04/04/2017. Per Radiologist. Emergency Department Course: Nursing notes and vitals reviewed. 212 I had my initial encounter with the patient. I performed an exam of the patient as documented above. The patient was sent for a US while in the emergency department, results [...] Cassidy is a 26 year old female on Xarelto who presents to the emergency department today with left internal jugular clot here after a mechanical fall injury involving the left forearm in the mid olecranon and having some pain at the spot of her injury as well as up in the left neck. She did not hit her head or sustain any other trauma. She has a hematoma over the olecranon. There is no palpable bony deformity and I have a low suspicion for a fracture here. I do not think she needs a radiograph. Primary concern is for extension or change in her clot so an ultrasound will be done. Ultrasound showing decrease in the size of her clot since last time. She will continue on her Xarelto and be discharged home. Conservative management for her left forearm hematoma. Diagnosis: ICD-10-CM 1. Fall, initial encounter W19.XXXA 2. Contusion of left forearm, initial encounter S50.12XA 3. Internal jugular (IJ) vein thromboembolism, chronic, left (H) I82.C22 Disposition: Discharge Scribe Disclosure: I, Marshall MezaDamaris, am serving as a scribe at 9:27 PM on 05/20/2017 to document services personally performed by John Stapleton, *, based on my observations and the provider's statements to me. 05/20/2017 [facility] EM[facility] John Stapleton MD 05/20/17 2342 documented in this encounter Plan of Treatment Not on filedocumented as of this encounter Procedures Procedure Name Priority Date/Time Associated Diagnosis Comme nts US UPPER EXTREMITY STAT 05/20/2017 10:36 PM Re sults for this VENOUS DUPLEX LEFT CDT procedure are in the results section. documented in this encounter Results Arm, left, venous US (05/20/2017 10:36 PM CDT) Anatomical Region Laterality Modality Extremity Ultrasound Specimen (Source) Anatomical Location Collection Method / Collectio n Time Received Time / Laterality Volume Impressions 05/20/2017 10:56 PM CDT IMPRESSION: Left internal jugular venous thrombus, decreased in size since 04/04/2017. HUGO GROVES MD Narrative 05/20/2017 10:56 PM CDT US UPPER EXTREMITY VENOUS DUPLEX LEFT ??05/20/2017 10:36 PM HISTORY: Pain, known left IJ clot, fall, worsening pain. TECHNIQUE: Venous Doppler US including c olor flow and Doppler waveform analysis. FINDINGS: Thrombus is seen within the le ft internal jugular vein, probably decreased in size to 1.4 cm fro m 2.5 cm on 04/04/2017. No thrombus was observed within the left alexander bclavian, axillary, cephalic, basilic, brachial, radial, or ulnar vein s. Procedure Note Malachi Groves MD - 05/20/2017Formatt ing of this note might be different from the original. US UPPER EXTREMITY VENOUS DUPLEX LEFT 10:36 PM HISTORY: Pain, known left IJ clot, fall, worsening pain. TECHNIQUE: Venous Doppler US including c olor flow and Doppler waveform analysis. FINDINGS: Thrombus is seen within the le ft internal jugular vein, probably decreased in size to 1.4 cm fro m 2.5 cm on 04/04/2017. No thrombus was observed within the left alexander bclavian, axillary, cephalic, basilic, brachial, radial, or ulnar vein s. IMPRESSION: Left internal jugular venous thrombus, decreased in size since 04/04/2017. HUGO GROVES MD John Stapleton MD IMG US ORDERABLES documented in this encounter Visit Diagnoses Diagnosis Fall, initial encounter Contusion of left forearm, initial encou nter Internal jugular (IJ) vein thromboemboli sm, chronic, left (H) documented in this encounter Care Teams Solar [employer] Technician Relationship Specialty Start Date End Date Justin Loya MD PCP - General Family Practice 02/19/11 [facility] [id number] [place] [phone] Silas Santiago MD MD Pain Clinic 11/29/13 [facility] [address] [place] [address] documented as of this encounter
--- OUTSIDE RECORDS SUMMARY | 2022-06-23 17:44 | XMS_ITS | Encounter Summary ---
:1990 Author Organization [facility] Address [address] [facility] [place] [address] Care Team Providers Name Role Phone Justin Loya MD Primary Care Provider Silas Santiago MD Unavailable Reason for Visit Reason Comments Leg Pain Encounter Details Date Type Department Care Team Description 09/19/2017 Emergency [facility] Saroj Chaudhry A cutanni midline low back pain without sciatica; [facility] Emergency Dep t Paresthesias [address] [facility] [place] [phone] [id number] [facility] [phone] [place], [place] [phone] (Wo rk) Social History Tobacco Use Types Packs/Day Years Used Date Smoking Tobacco: Never Smokeless Tobacco: Never Alcohol Use Standard Drinks/Week Comments No 0 (1 standard drink = 0.6 oz pure alcoho l) Sex Assigned at Date Recorded Not on file documented as of this encounter Last Filed Vital Signs Vital Sign Reading Time Taken Comments Blood Pressure 106/72 09/19/2017 12:49 AM GRIZZLYMAN Pulse - - Temperature 36.8 ??C (98.2 ??F) 09/19/2017 12:49 AM GRIZZLYMAN Respiratory Rate 18 09/19/2017 12:49 AM GRIZZLYMAN Oxygen Saturation 98% 09/19/2017 12:49 AM GRIZZLYMAN Inhaled Oxygen Concentration - - Weight 52.2 kg (115 lb) 09/19/2017 12:49 AM GRIZZLYMAN Height - - Body Mass Index 18.01 08/18/2017 7:33 AM GRIZZLYMAN documented in this encounter Discharge Instructions Discharge InstructionsSaroj Chaudhry MD - 09/19/2017 3:10 AM GRIZZLYMAN Discharge Instructions Back Pain You were seen today for back pain. Back pain can have many causes, but most will get better without surgery or other specific treatment. Sometimes there is a herniated (???slipped?? ) disc. We do not usually do MRI scans to look for these right away, since most herniated discs will get better on theirown with time. Today, we did not find any evidence that your back pain was caused by a serious condition. However, sometimes symptoms develop over time and cannot be found during an emergency visit, soit is very important that you follow up with your primary provider. Generally, every Emergency Department visit should have a follow-up clinic visit with either a primary or a specialty clinic/provider. Please follow-up as instructed by your emergency provider today. Return to the Emergency Department if: ??? You develop a fever with your back pain. ??? You have weakness or change in sensation in one or both legs. ??? You lose control of your bowels or bladder, or cannot empty your bladder (cannot pee). ??? Your pain gets much worse. Follow-up with your provider: ??? Unless your pain has completely gone [...] bring blood flow to the muscles and relievemuscle spasms as well as preventing loss of [...] if there is anything that worries you. ZLYMAN documented in this encounter Medications at Time [...] documented as of this encounter ED Notes Willow Abbasi RN - 09/19/2017 12:52 AM CST Alert and oriented x 3 airway,breathing and circulation intact, c/o burning sensation in lower back,down her legs and burning on bottom of feet, seen 8 days ago and seen by PMD, now has neck pain and rt eye pain ZLYMAN Saroj Chaudhry MD - 09/19/2017 12:42 AM CST History Chief Complaint: Multiple symptoms HPI Destiney Huff is a 26 year old female who presents with multiple symptoms. The patient reports that 9 days ago she began experiencing difficulty urinating followed by bilateral flank pain. Shortly after this she also began experiencing pain in her right eye and the right side of her face. In the last two or three days now she has also began to experiencing neck pain and stiffness as well as a burning sensation/pain in her lower abdomen, down her legs, and her feet. She continues to experience some dysuria, but states her difficulty urinating has now alleviated. She was seen by her primary care physician three days ago as well as here in the ED shortly prior to this, at both times she had blood work performed showing nothing abnormal. She also notes that she had an MRI with contrast performed in March of last year to evaluate for possible mass in her brain. She then experienced a blood clot three days later. While here in the ED tonight she denies any vision changes or focal weakness associated with her other symptoms. Allergies: Cerfzil Ciprofloxacin Penicillin G Medications: Robaxin Valium Past Medical History: Anxiety Lower back pain DVT Insomnia Past Surgical History: Decompression lumbar minimally invasive one level Myringotomy, insert tube bilateral, combined Tonsillectomy [place]se[place] tooth removal Family History: The patient denies any relevant family medical history. Social History: The patient was accompanied to the ED by her . Smoking Status: No Smokeless Tobacco: No Alcohol Use: No Marital Status: Review of Systems Eyes: Positive for pain. Gastrointestinal: Positive for abdominal pain. Genitourinary: Negative for difficulty urinating and dysuria. Musculoskeletal: Positive for back pain, myalgias, neck pain and neck stiffness. Neurological: Positive for headaches. Negative for weakness and numbness. All other systems reviewed and are negative. Physical Exam Vitals: Patient Vitals for the past 24 hrs: BP Temp Heart Rate Resp SpO2 Weight 09/19/17 0049 106/72 98.2 ??F (36.8 ??C) 89 18 98 % 52.2 kg (115 lb) Physical Exam Constitutional: Alert, attentive HENT: Nose: Nose normal. Mouth/Throat: Oropharynx is clear, mucous membranes are moist Eyes: EOM are normal. Pupils are equal, round, and reactive to light. CV: brisk capillary refill to the distal extremities, 2+ DP pulses bilaterally. Chest: Effort normal and breath sounds normal. GI: No distension. There is no tenderness to the RUQ, RLQ or LLQ. No Martinez's sign or McBurney's point tenderness. No palpable, pulsatile mass. MSK: Normal range of motion. No midline T/L/S spine tenderness Neurological: Alert, attentive. GCS 15; 5/5 strength throughout the bilateral lower extremities (hip flexion/extension, knee flexion/extension, DF/PF, EHL/FHL); sensation intact to light touch throughout L2-S1 distributions to the lower extremities; 2+ DTRs to the bilateral lower extremities (patellar, achilles); normal gait Skin: Skin is warm and dry. Emergency Department Course Imaging: Radiology findings were communicated with the patient who voiced understanding of the findings. MR Lumbar Spine w/o contrast: 1. 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 2. At L5-S1 there is grade 1 anterolisthesis of L5 with mild left foraminal stenosis. Equivocal right L5 pars defect. 3. Minor degenerative changes elsewhere as described. Per Radiologist. Interventions: 0205 Ativan, 1 mg, PO Emergency Department Course: Nursing notes and vitals reviewed. 0109 I had my initial encounter with the patient. I performed an exam of the patient as documented above. The patient was sent for a MRI while in the emergency department, results above. 0305 I updated the patient on the results of their imaging. 0310 I discussed the treatment plan with the patient. They expressed understanding of this plan and consented to discharge. They will be discharged home with instructions for care and follow up. In addition, the patient will return to the emergency department if their symptoms persist, worsen, if new s ymptoms arise or if there is any concern. All questions were answered. Impression & Plan Medical Decision Making: This is a 26-year-old female with remote history of discectomy presents for evaluation of low back pain and paresthesias. This is at least the third ED or clinic visit for the same she notes increasingpain to the low back and burning paresthesias to the lower extremities. She also notes some headacheand right eye pain which is nonspecific. She does have a normal neurologic exam. There is no evidence of cauda equina. However given concern for possible transverse myelitis repeated visits and given repeat visits, MR lumbar spine is performed and is negative. She appears globally reassured by the above results. I discussed that her paresthesias could be a neuropathy and indicated she should follow-up with ongoing outpatient workup. I provided a neurology reference should she require further evaluation for same. She has had an MRI brain the last several months, so MS seems unlikely, and tumor was ruled out at that time. I do not believe further imaging of the brain is indicated headache she shouldfollow-up with primary care in 2-3 days return immediately for any concerns. Diagnosis: ICD-10-CM 1. Acute midline low back pain without sciatica M54.5 2. Paresthesias R20.2 Disposition: Discharge Scribe Disclosure: IMarshall, am serving as a scribe at 12:59 AM on 09/19/2017 to document services personally performed by Saroj Chaudhry MD, based on my observations and the provider's statements to me. 09/19/2017 [facility] EMERGENCY DEPARTMENT Saroj Chaudhry MD 09/19/17 0326 ZLYMAN documented in this encounter Plan of Treatment Not on filedocumented as of this encounter Procedures Procedure Name Priority Date/Time Associated Diagnosis Comme nts MR LUMBAR SPINE W/O STAT 09/19/2017 2:47 AM Re sults for this CONTRAST GRIZZLYMAN procedure are i n the results section. documented in this encounter Results MR Lumbar Spine w/o Contrast (09/19/2017 2:47 AM GRIZZLYMAN) Anatomical Region Laterality Modality Spine, SUBRAD MR MSK, UMP MR SPINE, RAD MR Magnetic Resonance Specimen (Source) Anatomical Location Collection Method / Collectio n Time Received Time / Laterality Volume Addenda Addendum by Justin Winter MD on 09/21/2017 10:35 AM GRIZZLYMAN DESTINEY HUFF [id number] The original report on this patient was dictated by Dr. DEMETRIO WINTER MD. (Date of Addendum: 09/21/2017 7:54 AM) An outside scan dated 11/02/2013 is now a vailable for comparison. When compared to the previous study, there is been no significant change. The L5-S1 disc was degenerated on the pr ior study and there was mild-moderate left L5-S1 foraminal steno sis due to disc material in the inferior aspect of the foramen. Dege nerative change was also noted in the facet joints at L5-S1. This is al so unchanged. DEMETRIO WINTER MD 09/21/2017 7:54 AM DEMETRIO WINTER MD Impressions 09/19/2017 8:22 AM GRIZZLYMAN IMPRESSION: ?? 1. 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 This was referred to as the L5 vertebrae. 2. Degenerative change at L5-S1 with a b ulging disc, degenerative change in the right facet joint, and a s mall left L5-S1 foraminal disc protrusion causing mild-moderate left 5- 1 foraminal stenosis. The degenerative changes at L5-S1 were n ot commented on in the preliminary report. DEMETRIO WINTER MD Narrative 09/19/2017 8:22 AM GRIZZLYMAN MRI LUMBAR SPINE WITHOUT CONTRAST ?? 09/19/2017 2:47 AM HISTORY: Back and leg pain. TECHNIQUE: Multiplanar multisequence MRI of the lumbar spine without contrast. COMPARISON: None. FINDINGS: There is a transitional verteb demetra at the lumbosacral junction. This vertebrae will be referre d to as L5. This vertebrae has a prominent right transverse process johana t articulates with the sacrum. The distal spinal cord and cauda equina appear normal. ?? [The bone marrow appears normal.] ??[The paraspina l soft tissues appear normal.] T12-L1: ?? Normal disc, facet joints, sp inal canal and neural foramina. ?? L1-L2: ?? Normal disc, facet joints, spi nal canal and neural foramina. L2-L3: ?? Normal disc, facet joints, spi nal canal and neural foramina. L3-L4: ?? Normal disc, facet joints, spi nal canal and neural foramina. L4-L5: ??Minimal annular bulge. Central canal normal. Mild degenerative change in the facet joints. L5-S1: ??Degeneration of the disc. Mild annular disc bulge. Moderate degenerative change in the right facet j oint. Mild degenerative change in the left facet joint. Moderate left f oraminal stenosis due to a small left L5-S1 foraminal disc protrusi on. This is best seen on the sagittal images. Procedure Note Justin Winter MD - 09/19/2017For matting of this note might be different from the original. MRI LUMBAR SPINE WITHOUT CONTRAST 09/20/19 18 2:47 AM HISTORY: Back and leg pain. TECHNIQUE: Multiplanar multisequence MRI of the lumbar spine without contrast. COMPARISON: None. FINDINGS: There is a transitional verteb demetra at the lumbosacral junction. This vertebrae will be referre d to as L5. This vertebrae has a prominent right transverse process johana t articulates with the sacrum. The distal spinal cord and cauda equina appear normal. [The bone marrow appears normal.] [The paraspinal soft tissues appear normal.] T12-L1: Normal disc, facet joints, spina l canal and neural foramina. L1-L2: Normal disc, facet joints, spinal canal and neural foramina. L2-L3: Normal disc, facet joints, spinal canal and neural foramina. L3-L4: Normal disc, facet joints, spinal canal and neural foramina. L4-L5: Minimal annular bulge. Central ca nal normal. Mild degenerative change in the facet joints. L5-S1: Degeneration of the disc. Mild an nular disc bulge. Moderate degenerative change in the right facet j oint. Mild degenerative change in the left facet joint. Moderate left f oraminal stenosis due to a small left L5-S1 foraminal disc protrusi on. This is best seen on the sagittal images. IMPRESSION: 1. 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 This was referred to as the L5 vertebrae. 2. Degenerative change at L5-S1 with a b ulging disc, degenerative change in the right facet joint, and a s mall left L5-S1 foraminal disc protrusion causing mild-moderate left 5- 1 foraminal stenosis. The degenerative changes at L5-S1 were n ot commented on in the preliminary report. DEMETRIO WINTER MD Saroj Chaudhry MD IM MRI ORDERABLES documented in this encounter Visit Diagnoses Diagnosis Acute midline low back pain without scia gagan Paresthesias Disturbance of skin sensation documented in this encounter Administered Medications Inactive Administered Medications - up to 3 most recent administrations Medication Order MAR Action Action Date Dose Rate Site LORazepam (ATIVAN) tablet 1 mg Given 09/19/2017 2:05 AM GRIZZLYMAN 1 mg 1 mg, Oral, ONCE, On 09/19/17 at 0141, For 1 dose documented in this encounter Active and Recently Administered Medications Times are shown in GRIZZLYMAN. Scheduled Medication Order 09/17/2017 09/18/2017 09/19/2017 LORazepam (ATIVAN) tablet 1 mg (COMPLETED) 0205 (Given - Provider: Brittany Thacker RN) 1 mg, Oral, ONCE, 09/19/17 at 0141, For 1 dose documented in this encounter Care Teams Guest Services Relationship Specialty Start Date End Date Justin Loya MD PCP - General Family Practice 02/19/[address] [facility] [id number] [place] [id number] Silas Santiago MD MD Pain Clinic 11/29/13 [facility] [address] [place] [address] documented as of this encounter
--- OUTSIDE RECORDS SUMMARY | 2022-06-23 17:44 | XMS_ITS | Encounter Summary ---
:1990 Author Organization [facility] Address [address] [place] [address] Care Team Providers Name Role Phone Justin Loya MD Primary Care Provider Silas Santiago MD Unavailable Reason for Visit Reason Comments Abdominal Pain Encounter Details Date Type Department Care Team Description 08/03/[address] [facility] Malorie Day Abdomina l cramping; [facility] Emergency Dep jennifer Mg MD Change in bowel movement [address] [facility] [place] [address] [address] [facility] [address] [place], [place] [id number] (Wo rk) Social History Tobacco Use Types Packs/Day Years Used Date Smoking Tobacco: Never Smokeless Tobacco: Never Alcohol Use Standard Drinks/Week Comments No 0 (1 standard drink = 0.6 oz pure alcoho l) Sex Assigned at Date Recorded Not on file documented as of this encounter Last Filed Vital Signs Vital Sign Reading Time Taken Comments Blood Pressure 119/72 08/03/2017 5:54 PM CHEESE COOK Pulse 89 08/03/2017 4:17 PM CHEESE COOK Temperature 37.1 ??C (98.8 ??F) 08/03/2017 4:17 PM CHEESE COOK Respiratory Rate 16 08/03/2017 4:17 PM CHEESE COOK Oxygen Saturation 94% 08/03/2017 5:56 PM [facility]ESE [facility]OOK Inhaled Oxygen Concentration - - Weight 52.2 kg (115 lb) 08/03/2017 4:17 PM CHEESE COOK Height 167.6 cm (5' 6) 08/03/2017 4:17 PM CHEESE COOK Body Mass Index 18.56 08/03/2017 4:17 PM CHEESE COOK documented in this encounter Discharge Instructions Discharge InstructionsMalorie Day MD - 08/03/2017 5:49 PM CHEESE COOK Discharge Instructions Abdominal Pain Abdominal pain (belly [...] the amount of wet diapers/urine. o Your infant or child starts to have [...] directed by your provider today. Before using uuls-ahx-nxpetnaewzeomwohjo, ask your provider and make sure to [...] if there is anything that worries you. SE COOK documented in this encounter Medications at Time [...] this encounter ED Notes Latonia Guidry - 08/03/2017 5:58 PM CST Patient discharged to home. Patient received follow-up with Gastroenterology and PCP and medication instructions for Bentyl. Patient received discharge instructions and has no other questions at this time. SE COOK Meche Rose RN - 08/03/2017 4:16 PM CST Pt presents with abdominal pain, seen recently for constipation and was seen by GI but pain worsenedtoday which prompted her to come in today. Pt was put on mirelax by GI doc and did have a small BM today. Pt alert, oriented x3. ABCs intact SE COOK Malorie Day MD - 08/03/2017 4:12 PM CST History Chief Complaint: Abdominal pain HPI Destiney Cassidy is a 26 year old female with a history of DVT who presents with abdominal pain. Thepatient reports that she has been having abdominal pain along with constipation recently and that she has been seen here in the emergency department for as well as with GI. She was recommended to continue taking miralax and laxatives for her symptoms. She presents to the emergency department today as she believes that her symptoms have changed. She reports that she had an unusual bowel movement recently that was described as very long and skinny and that she has been having new abdominal cramps and twitching. She denies having experienced any fevers or blood in her stool. She denies having had any recent medication changes but notes that two weeks ago she switched from a gluten free diet to a diet including gluten. The patient denies any chance of . X ray abdomen pelvis 07/26/17 FINDINGS: The gas pattern is normal. No free air. No abnormal calcifications. There is a moderate amount of stool throughout the Colon. Allergies: Cefzil Ciprofloxacin Penicillin G Medications: Miralax Magnesium citrate Xarelto Valium Past Medical History: Anxiety Low back pain DVT Insomnia Past Surgical History: Decompression lumbar minimally invasive one level Myring marlene Tonsillectomy [place] teeth Family History: The patient denies any relevant family medical history. Social History: Smoking Status: No Smokeless Tobacco: No Alcohol Use: No Marital Status: [2] Review of Systems Constitutional: Negative for fever. Gastrointestinal: Positive for abdominal pain and constipation. Physical Exam Vitals: Patient Vitals for the past 24 hrs: BP Temp Pulse Heart Rate Resp SpO2 Height Weight 08/03/17 1756 - - - - - 94 % - - 08/03/17 1754 119/72 - - - - - - - 08/03/17 1617 126/80 98.8 ??F (37.1 ??C) 89 89 16 100 % 1.676 m (5' 6) 52.2 kg (115 lb) Physical Exam General: Adult female sitting upright in bed Eyes: PERRL, Conjunctive within normal limits ENT: Moist mucous membranes, oropharynx clear. CV: Normal S1S2, no murmur, rub or gallop. Regular rate and rhythm Resp: Clear to auscultation bilaterally, no wheezes, rales or rhonchi. Normal respiratory effort. GI: Abdomen is soft and nondistended. No palpable masses. No rebound or guarding. Mild periumbilicaltenderness to palpation. Normal active bowel sounds throughout. MSK: No edema. Nontender. Normal active range of motion. Skin: Warm and dry. No rashes or lesions or ecchymoses on visible skin. Neuro: Alert and oriented. Responds appropriately to all questions and commands. No focal findings appreciated. Normal muscle tone. Psych: Normal mood and affect. Pleasant. Emergency Department Course Laboratory: Laboratory findings were communicated with the patient who voiced understanding of the findings. CBC: AWNL (WBC 8.1, HGB 14.0, PLT 265) BMP: AWNL (Creatinine 0.66) ESR: 4 Lactic acid (1702): 0.8 Emergency Department Course: Nursing notes and vitals reviewed. I performed an exam of the patient as documented above. Blood was drawn for laboratory testing, results above. Patient denies any new concerns. I discussed the treatment plan with the patient. They expressed understanding of this plan and consented to discharge. They will be discharged home with instructions for care and follow up. In addition, the patient will return to the emergency department if their symptoms persist, worsen, if new symptoms arise or if there is any concern. All questions were answered. I personally reviewed the laboratory results with the patient and answered all related questions prior to discharge. Impression & Plan Medical Decision Making: Destiney Cassidy is a 26 year old female with recent concerns for change in bowel habits and presents to the emergency department for concern about a longer, thinner stool than normal and crampy gassy pain. Ultimately, she has a benign abdomen on assessment. She has no laboratory abnormalities which were checked given the chronic nature of her constipation or evidence of hypocalcemia. She also has noelevated inflammatory markers. Certainly this could be irritable bowel syndrome or inflammatory bowel disease. Colitis also considered but less likely without any inflammation, nausea, vomiting, or diar kyra. She felt comfortable with no CT scan at this time as it does not seem indicated. She should follow up with her primary doctor and or gastroenterology in 3 to 5 days. Bentyl might help with her symptoms and was prescribed to her. Return immediately to the emergency department with any fever, uncontrolled pain , vomiting, black or blood stool, or any other concern. All questions were answered prior to discharge. Diagnosis: ICD-10-CM 1. Abdominal cramping R10.9 2. Change in bowel movement R19.4 Disposition: Discharged [facility] Diagnoses: None Discharge Medications: Discharge Medication List as of 08/03/2017 5:52 PM START taking these medications Details dicyclomine (BENTYL) 20 MG tablet Take 1 tablet (20 mg) by mouth 2 times daily for 10 days, Disp-20 tablet, R-0, Local Print Scribe Disclosure: I, Alfredo Ocampo, am serving as a scribe at 4:23 PM on 08/03/2017 to document services personally performed by Malorie Day MD, based on my observations and the provider's statements to me. [facility] EMERGENCY DEPARTMENT Malorie Day MD 08/04/17 1822 SE COOK documented in this encounter Plan of Treatment Not on filedocumented as of this encounter Procedures Procedure Name Priority Date/Time Associated Comments Diagnosis CBC WITH PLATELETS & STAT 08/03/2017 5:02 PM R esults for this DIFFERENTIAL [facility] procedure are i n the results section. LACTIC ACID WHOLE STAT 08/03/2017 5:02 PM Resu lts for this BLOOD [facility] procedure are i n the results section. ERYTHROCYTE STAT 08/03/2017 5:02 PM Results f or this SEDIMENTATION RATE [facility]ESE COOK procedure are in AUTO the results section. BASIC METABOLIC PANEL STAT 08/03/2017 5:02 PM Results for this [facility]OOK procedure are i n the results section. documented in this encounter Results Lactic acid whole blood (08/03/2017 5:02 PM CHEESE COOK) athologist Signature Lactic Acid 0.8 0.7 - 2.0 08/03/2017 [place] mmol/L 5:17 PM [facility] Specimen Anatomical Collection Method Collection Time Receive d Time (Source) Location / / Volume Laterality Blood specimen 08/03/2017 5:02 PM 018 5:03 (specimen) [facility]ESE [facility]OOK PM [facility]OOK Malorie Day MD LAB - BLOOD ORDERABLES Performing Organization Address City/[facility] Code Phon e Number [facility] [address] [place], [place] [address] [place] [address] [address] [place] [address], [place] [phone] Erythrocyte sedimentation rate auto (08/03/2017 5:02 PM [facility]ESE [facility]) athologist Signature Sed Rate 4 0 - 20 mm/h 08/03/2017 [facility] 5:34 PM [facility] Specimen Anatomical Collection Method Collection Time Receive d Time (Source) Location / / Volume Laterality Blood specimen 08/03/2017 5:02 PM 018 5:03 (specimen) [facility]ESE [facility]OOK PM [facility] Malorie Day MD LAB - BLOOD ORDERABLES Performing Organization Address City/[facility] Phon e Number [facility] [address] [place], [place] [address] [facility] [address] [place], [place] [address] 7, [place] [phone] Basic metabolic panel (BMP) (08/03/2017 5:02 PM CHEESE COOK) P athologist Signature Sodium 138 133 - 144 08/03/2017 [facility] mmol/L 5:33 PM [facility] Potassium 3.7 3.4 - 5.3 08/03/2017 [facility] mmol/L 5:33 PM [facility] Chloride 105 94 - 109 08/03/2017 [facility] mmol/L 5:33 PM [facility] Carbon Dioxide 30 20 - 32 08/03/2017 [facility] mmol/L 5:33 PM [facility] Anion Gap 3 3 - 14 08/03/2017 [facility] mmol/L 5:33 PM [facility] Glucose 95 70 - 99 08/03/2017 [facility] mg/dL 5:33 PM [facility] Urea Nitrogen 11 7 - 30 08/03/2017 [facility] mg/dL 5:33 PM [facility] Creatinine 0.66 0.52 - 08/03/2017 [facility] 1.04 mg/dL 5:33 PM [facility] GFR Estimate >90 >60 08/03/2017 [place] mL/min/1.7 5:[address] Comment: Non GFR Calc GFR Estimate If >90 >60 mL/min/1.7m2 08/03/2017 5:33 [facility] Comment: GFR Calc Calcium 9.0 8.5 - 10.1 mg/dL 08/03/2017 5:33 PM [facility] Specimen Anatomical Collection Method Collection Time Receive d Time (Source) Location / / Volume Laterality Blood specimen 08/03/2017 5:02 PM 018 5:03 (specimen) [facility]ESE [facility]OOK PM [facility] Malorie Day MD LAB - BLOOD ORDERABLES Performing Organization Address City/State/ZIP Code Phon e Number [facility] [address] [place], [place] [address] [facility] [address] [place], [place] [address] 7[facility] [phone] CBC + differential (08/03/2017 5:02 PM [facility]OOK) Patholo gist Method Time Signature WBC 8.1 4.0 - 08/03/2017 [facility] 11.0 5:16 PM [facility] 10e9/L [facility] RBC Count 4.74 3.8 - 5.2 08/03/2017 [facility] 10e12/L 5:16 PM [facility] Hemoglobin 14.0 11.7 - 08/03/2017 [facility] 15.7 g/dL 5:16 PM [facility] Hematocrit 41.9 35.0 - 08/03/2017 [facility] 47.0 % 5:16 PM [facility] MCV 88 78 - 100 08/03/2017 [facility] fl 5:16 PM [facility] MCH 29.5 26.5 - 08/03/2017 [facility] 33.0 pg 5:16 PM [facility] MCHC 33.4 31.5 - 08/03/2017 [facility] 36.5 g/dL 5:16 PM [facility] RDW 11.7 10.0 - 08/03/2017 [facility] 15.0 % 5:16 PM [facility] Platelet Count 265 150 - 450 08/03/2017 [facility] 10e9/L 5:16 PM [facility] Diff Method Automated 08/03/2017 [facility] Method 5:16 PM [facility] % Neutrophils 70.5 % 08/03/2017 [facility] 5:16 PM [facility] % Lymphocytes 19.5 % 08/03/2017 [facility] 5:16 PM [facility] % Monocytes 7.4 % 08/03/2017 [facility] 5:16 PM [facility] % Eosinophils 1.4 % 08/03/2017 [facility] 5:16 PM [facility] % Basophils 1.0 % 08/03/2017 [facility] 5:16 PM [facility] % Immature 0.2 % 08/03/2017 [facility] Granulocytes 5:16 PM [facility] Nucleated RBCs 0 0 /100 08/03/2017 [facility] 5:16 PM [facility] Absolute 5.7 1.6 - 8.3 08/03/2017 [facility] Neutrophil 10e9/L 5:16 PM [facility] Absolute 1.6 0.8 - 5.3 08/03/2017 [facility] Lymphocytes 10e9/L 5:16 PM [facility] Absolute 0.6 0.0 - 1.3 08/03/2017 [facility] Monocytes 10e9/L 5:16 PM [facility] Absolute 0.1 0.0 - 0.7 08/03/2017 [place] Eosinophils 10e9/L 5:16 PM [facility] Absolute 0.1 0.0 - 0.2 08/03/2017 [place] Basophils 10e9/L 5:16 PM [facility] Abs Immature 0.0 0 - 0.4 08/03/2017 [place] Granulocytes 10e9/L 5:16 PM [facility] Absolute 0.0 08/03/2017 [place] Nucleated RBC 5:16 PM [facility] Specimen Anatomical Collection Method Collection Time Receive d Time (Source) Location / / Volume Laterality Blood specimen 08/03/2017 5:02 PM 018 5:03 (specimen) [facility] PM [facility] Malorie Day MD LAB - BLOOD ORDERABLES Performing Organization Address City/State/ZIP Code Phon e Number M [place] [address] [place], [place] [address] [facility] [address] [place], [place] [address] [place] [address] documented in this encounter Visit Diagnoses Diagnosis Abdominal cramping Abdominal pain, unspecified site Change in bowel movement Other symptoms involving digestive syste m documented in this encounter Care Teams Electronic Maintenance Supervisor Relationship Specialty Start Date End Date Justin Loya MD PCP - General Family Practice 02/19/11 [facility] [address] [place] [phone] Silas Santiago MD MD Pain Clinic 11/29/13 [facility] [address] [place] [address] documented as of this encounter
--- OUTSIDE RECORDS SUMMARY | 2022-06-23 17:44 | XMS_ITS | Encounter Summary ---
:1990 Author Organization [facility] Address [address] [facility] [place] [address] Care Team Providers Name Role Phone Justin Loya MD Primary Care Provider Silas Santiago MD Unavailable Reason for Visit Reason Comments Cold Symptoms dark stool Encounter Details Date Type Department Care Team Description [facility] [address] [place] [address] [facility] [phone] [place], [place] [address] (Wo rk) Social History Tobacco Use Types Packs/Day Years Used Date Smoking Tobacco: Never Smokeless Tobacco: Never Alcohol Use Standard Drinks/Week Comments No 0 (1 standard drink = 0.6 oz pure alcoho l) Sex Assigned at Date Recorded Not on file documented as of this encounter Last Filed Vital Signs Vital Sign Reading Time Taken Comments Blood Pressure 118/78 07/17/2017 10:22 PM TELEPHONE INFORMATION CLERK Pulse 110 07/17/2017 7:57 PM TELEPHONE INFORMATION CLERK Temperature 37.5 ??C (99.5 ??F) 07/17/2017 7:57 PM TELEPHONE INFORMATION CLERK Respiratory Rate 18 07/17/2017 7:57 PM TELEPHONE INFORMATION CLERK Oxygen Saturation 96% 07/17/2017 10:23 PM TELEPHONE INFORMATION CLERK Inhaled Oxygen Concentration - - Weight - - Height - - Body Mass Index - - documented in this encounter Discharge Instructions AttachmentsThe following attachments cannot be sent through Care Everywhere.URI, VIRAL, NO ABX (ADULT) (MAORI)documented in this encounter Medications at Time of [...] documented as of this encounter ED Notes Kamila Hickey RN - 07/17/2017 11:02 PM CST Pt provided with discharge paperwork and educated on recommended follow-up with PCP. Pt educated on how to manage symptoms at home. Pt voiced understanding and denied any questions at discharge. PHONE INFORMATION CLERK Karlie Truong RN - 07/17/2017 7:58 PM CST Patient comes in for evaluation of cold symptoms for about 1.5 weeks, with intermittent fevers, stomach upset. Also noticed one dark stool this evening. Is on anti-coagulant for clot in neck. ABCs intact. PHONE INFORMATION CLERK Malorie Cullen MD - 07/17/2017 7:28 PM CST History Chief Complaint: Cold Symptoms and dark stool HPI Destiney Cassidy is a 26 year old female who presents with URI symptoms for about 10 days. Patient symptoms started with runny nose, congestion, sinus pressure, and intermittent subjective fevers. She started feeling better from those symptoms, although over the last day developed some mild carmping ab dominal pain, along with nausea. She is concerned because 1 of her bowel movements appeared to be streaked with much darker stool. She is currently on rivaroxaban for a upper extremity DVT. She has hadmild shortness of breath and dizziness. Otherwise, she denies any hematemesis, persistent fever, or chest pain. Tmax today was 99F. She has not had any sick contacts. She denies headache, muscle aches,night sweats, but has had mild chills. She took APAP at 1800. Allergies: Cefzil [Cefprozil] Ciprofloxacin Penicillin G Medications: rivaroxaban ANTICOAGULANT (XARELTO) 15 MG TABS tablet diazepam (VALIUM) 5 MG tablet Past Medical History: Past Medical History: Diagnosis Date ??? Anxiety ??? Back pain, low ??? DVT (deep vein thrombosis) in (H) ??? Insomnia There are no active problems to display for this patient. Past Surgical History: Past Surgical History: Procedure Laterality Date ??? DECOMPRESSION LUMBAR MINIMALLY INVASIVE ONE LEVEL 02/19/2011 Procedure:DECOMPRESSION LUMBAR MINIMALLY INVASIVE ONE LEVEL; L5-S1; Surgeon:KAYE HERNANDEZ; Location:[facility] OR ??? MYRINGOTOMY, INSERT TUBE BILATERAL, COMBINED ??? TONSILLECTOMY ??? WISDOM TEETH Social History: reports that she has never smoked. She has never used smokeless tobacco. She reports that she does not drink alcohol or use illicit drugs. PCP: Justin Loya Review of Systems Constitutional: Negative for chills and fever. HENT: Negative for rhinorrhea. Respiratory: Negative for cough and wheezing. Gastrointestinal: Positive for nausea. Negative for blood in stool, constipation, diarrhea and vomiting. All other systems reviewed and are negative. Physical Exam BP 118/78 Pulse 110 Temp 99.5 ??F (37.5 ??C) (Temporal) Resp 18 LMP 06/29/2017 SpO2 96% Physical Exam Gen: Pleasant, appears stated age. Eye: Pupils are equal, round, and reactive. Sclera non-injected. ENT: Moist mucus membranes. Normal tongue. Oropharynx without lesions. Cardiac: Normal rate and regular rhythm. No murmurs, gallops, or rubs. Pulmonary: Clear to auscultation bilaterally. No wheezes, rales, or rhonchi. Abdomen: Normal active bowel sounds. Abdomen is soft and non-distended, without focal tenderness. Rectal: Brown stool, normal tone. Musculoskeletal: Normal movement of all extremities without evidence for deficit. Extremities: No edema. Skin: Warm and dry. Neurologic: Non-focal exam without asymmetric weakness or numbness. Normal tone Psychiatric: Normal affect with appropriate interaction with examiner. Emergency Department Course Emergency Department Course: Past medical records, nursing notes, and vitals reviewed. I performed an exam of the patient and obtained history, as documented above. I rechecked the patient. Findings and plan explained to the Patient and . Patient was discharged to home. Impression & Plan Medical Decision Making: Destiney Cassidy is a 26-year-old female with recent history of upper extremity DVT. She recently recovered from a viral infection although since then has developed some nausea, softer stool and is concerned that she may have internal bleeding worsened by rivaroxaban. Clinically, she is well appearing. Vital signs normalized following short observation period in the ED. Rectal exam is notable for brownstool Hemoccult negative. At this point, given that she is well appearing with mild symptoms I do not think additional workup is indicated. I think she is safe to be discharged home to continue supportive measures. She will return for worsening abdominal pain, fever, abdominal distention, or for any other concerns. Diagnosis: ICD-10-CM 1. Cough R05 Discharge Medications: Discharge Medication List as of 07/17/2017 10:52 PM 07/18/2017 No att. providers found Malorie Cullen MD 07/18/17 [id number] PHONE INFORMATION CLERK documented in this encounter Plan of Treatment Not on filedocumented as of this encounter Procedures Procedure Name Priority Date/Time Associated Diagnosis Comme nts OCCULT BLOOD STOOL STAT 07/17/2017 10:15 PM Re sults for this TELEPHONE INFORMATION CLERK procedure are i n the results section. documented in this encounter Results Occult blood stool (07/17/2017 10:15 PM TELEPHONE INFORMATION CLERK) P athologist Signature Occult Blood Negative NEG^Negati 07/17/2017 [facility] ve 10:31 PM [facility] Specimen Anatomical Collection Method Collection Time Receive d Time (Source) Location / / Volume Laterality Stool specimen 07/17/2017 10:15 7 (specimen) PM TELEPHONE INFORMATION CLERK 10:27 PM TELEPHONE INFORMATION CLERK Malorie Cullen MD LAB - STOOLS ORDERABLES Performing Organization Address City/State/ZIP Code Phon e Number [facility] [address] [place], [place] [address] [facility] [address] [place], [place] [address] [address] [phone] documented in this encounter Visit Diagnoses Diagnosis Cough documented in this encounter Care Teams Lab Nurse Relationship Specialty Start Date End Date Justin Loya MD PCP - General Family Practice 02/19/11 [facility] [address] [place] [phone] Silas Santiago MD MD Pain Clinic 11/29/13 [facility] [address] [place] [address] documented as of this encounter
--- OUTSIDE RECORDS SUMMARY | 2022-06-23 17:44 | XMS_ITS | Encounter Summary ---
:1990 Author Organization [place] Address [facility] [address] Care Team Providers Name Role Phone Justin Loya MD Primary Care Provider Silas Santiago MD Unavailable Reason for Visit Reason Comments Pain nerve pain in leg and pelvic area Encounter Details Date Type Department Care Team Description 10/12/2017 Office Visit [facility] NEUROSPECIALTIES Mook Musa Sensory disorder [id number] Avis Dotson MD (Primary Dx) [place] [address] [place] [address] [id number] (Wo rk) Social History Tobacco Use Types Packs/Day Years Used Date Smoking Tobacco: Never Smokeless Tobacco: Never Alcohol Use Standard Drinks/Week Comments No 0 (1 standard drink = 0.6 oz pure alcoho l) Sex Assigned at Date Recorded Not on file documented as of this encounter Last Filed Vital Signs Vital Sign Reading Time Taken Comments Blood Pressure 130/91 10/12/2017 2:45 PM CDT Pulse 86 10/12/2017 2:45 PM CDT Temperature 37.2 ??C (98.9 ??F) 10/12/2017 2:45 PM CDT Respiratory Rate - - Oxygen Saturation - - Inhaled Oxygen Concentration - - Weight 50.3 kg (111 lb) 10/12/2017 2:45 PM CDT Height 171.5 cm (5' 7.5) 10/12/2017 2:45 PM CDT Body Mass Index 17.13 10/12/2017 2:45 PM CDT documented in this encounter Progress Notes Mook Musa MD - 10/12/2017 4:03 PM CDT Service Date: 10/12/2017 REASON FOR VISIT: This patient is a 26-year-old right-handed woman seen for evaluation of pain and sensory disturbance in the low back and legs and burning in the feet. HISTORY OF PRESENT ILLNESS: She reports that her symptoms began about 5 weeks ago. She is here with her , Benjie. She describes it as a pain in the left leg, burning in the feet, leg twitching and jerking. She has hypersensitivity in the low back and in the legs. She did have low back surgery 7 years ago. She had a laminotomy for symptoms on the left leg. The results from surgery took a year to be appreciated, but she basically was fine for 5 years. Then, she developed symptoms of electric shocks in the feet and legs 5 weeks ago. She also has a burning pelvic pain in the rectum and in the genital area. She did have symptoms in her right face. She took magnesium, phosphorus for that. The pain in her face went away. This was a homeopathic remedy, but then the symptoms in her low back and legs appeared. She has started gabapentin and cannot determine if it is helping much. She also had burning in her abdomen above the belly button 5 weeks ago when all this started. That has now resolved. She also has had a burning and a hot sensation from her neck down into her buttocks. She does not notice wo rsening of symptoms with neck flexion or extension. She does not have symptoms in her arms. She has no issues with vision, hearing, speech or swallowing. PAST MEDICAL HISTORY: Largely noncontributory. 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 [facility] and the most recent MRI of the brain was done in March of last year.She does not have high blood pressure, diabetes, thyroid or asthma. She has not had surgery to the head or neck, but has had low back surgery as noted. She has no history of head trauma. She is not . Her diet is good. She does not drink or smoke. ALLERGIES: She is allergic to penicillin and Cipro. 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 She did have a blood clot inthe left arm after receiving dye for an MRI. She had to be treated with blood thinners for 4 months.She had a hypercoagulable workup that was nondiagnostic. PHYSICAL EXAMINATION: GENERAL: The patient is cooperative and in no distress. VITAL SIGNS: Her blood pressure is 130/91. There are no carotid bruits. Auscultation of the heart shows S1, S2, without murmur, rub or gallop. Chest is clear to auscultation. Neck flexion and extension does not provoke any symptoms. NEUROLOGIC: The patient is alert, oriented and lucid. Cranial nerve testing shows full visual fieldsto confrontation. Funduscopic exam shows sharp discs bilaterally. Visual acuity is 20/20 bilaterally. Eye movements are complete and conjugate without nystagmus. Pupils react to light. Facies are symmetric. Tongue protrudes in the midline. Motor evaluation shows no pronator drift, normal finger tapping, [id number]-dakd-slkcka and ncaq-rhbs-kyoi. No tremor is noted. She has excellent strength in the arms,hands, legs and feet. Muscle stretch reflexes are normal amplitude and symmetric and somewhat brisk at the knees. Toes are downgoing. Sensory exam shows preserved vibration and pinprick in the hands and feet. Temperature sense is preserved in the hands. There is normal graphesthesia in the hands. Pinprick sensation in the buttocks and proximal thighs is also normal. Romberg sign is absent. She can walk on her heels, toes and tandem. She can hop on each foot individually. She did have an MRI of the lumbar spine performed at [facility]. I have reviewed the images with her. Thereare minor degenerative changes and evidence of prior surgery, but there is no abnormality to explainthe symptom she describes. She is quite concerned about the possibility of arachnoiditis and no evidence for such was found on the MRI of the lumbar spine. Of note, she had MRI of the cervical, thoracic and lumbar spine in 2013 at the [facility] as part of a multiple sclerosis evaluation and by her report, the studies were unremarkable. The most recent MRI of the brain was in March of last year and no mention is made of demyelinating plaques. In addition, she had recent lab work performed, although the specifics are not available for review.A vitamin B12 level was in the 500 range. A vitamin D was somewhat low and she is on vitamin D replacement. ASSESSMENT: 1. Sensory disturbance in the lower abdomen, low back, legs and feet. DISCUSSION: The patient is seen for evaluation of sensory disturbance in the lower abdomen, legs andfeet with low back pain. She has a history of low back surgery 7 years ago. Her exam on these pointstoday is unremarkable. Differential diagnosis includes myelopathy, possibly due to an inflammatory condition such as multiple sclerosis. I had a long talk with the patient and her about how to proceed. I would recommend imaging of the cervical and thoracic spine. She is not inclined to do thatbecause it was done 4 years ago without a diagnosis. She is aware that things could change in the meantime. I would not recommend doing a spinal fluid analysis unless there was more compelling evidenceto suggest an underlying inflammatory condition. I tried to reassure the patient that her presentation does not suggest arachnoiditis. Her wondered if stress could be causing some of the symptoms. I said that stress could cause symptoms like this, but that it was a diagnosis of exclusion. After going over all this information with her and her , it was decided to monitor her neurologic s tatus for now. She will contact me if she decides to proceed with the imaging as recommended. Followup will be on an as needed basis. MD MOOK Lamar MD MT: MARIA ELENA Name: DESTINEY HUFF Account: [id number] : 1990 Service Date: 10/12/2017 Document: [id number] documented in this encounter Plan of Treatment Not on filedocumented as of this encounter Visit Diagnoses Diagnosis Sensory disorder - Primary Disturbance of skin sensation documented in this encounter Care Teams Automatic Print Developer Relationship Specialty Start Date End Date Justin Loya MD PCP - General Family Practice 02/19/11 [facility] [address] [place] [phone] Silas Santiago MD MD Pain Clinic 11/29/13 [facility] [address] [facility] [place] [id number] documented as of this encounter
--- OUTSIDE RECORDS SUMMARY | 2022-06-23 17:45 | XMS_ITS | Encounter Summary ---
:1990 Author Organization [place] Address [facility] [place] [address] Care Team Providers Name Role Phone Justin Loya MD Primary Care Provider Silas Santiago MD Unavailable Reason for Visit Reason Onset Date Comments *-*INCOMING RECORDS*-* 01/28/2017 Encounter Details Date Type Department Care Team Description 01/28/2017 PRE VISIT [facility], Dorita Nieto MD *-*INCOMING RECORDS*-* Throat [address] [facility] [address] [facility] [address] [place], [place] [id number] [phone] Social History Tobacco Use Types Packs/Day Years Used Date Smoking Tobacco: Never Smokeless Tobacco: Never Alcohol Use Standard Drinks/Week Comments No 0 (1 standard drink = 0.6 oz pure alcoho l) Sex Assigned at Date Recorded Not on file documented as of this encounter Miscellaneous Notes Telephone Encounter - Clarissa Ramírez - 02/13/2017 12:59 PM CDT 2013 MRI/Ct Head -- Imaging is in PACS 2013 [facility] and [facility] -- Records are in EPIC 2013 ED [place] -- Records are in [facility] All records/imaging received Telephone Encounter - Clarissa Ramírez - 02/03/2017 12:52 PM CDT Rescheduled Appt 04/06/17 Telephone Encounter - Chuyita Mijares - 02/02/2017 2:58 PM CDT Records received from [facility]. Included Office notes: 12/09/15, 12/11/15, 04/09/16 Radiology reports: MR brain on 05/20/14- [facility] Telephone Encounter - Clarissa Ramírez - 01/29/2017 5:10 PM CDT She seen her PCP at [facility]. Faxed request for records/imaging yani Telephone Encounter - Clarissa Ramírez - 01/28/2017 10:47 AM CDT 1. Date/reason for appt: 02/04/17 Trigeminal Neuralgia/Facial Pain 2. Referring provider: Self 3. Call to patient (Yes / No - short description): Yes, called pt. She can't talk, her voice mail isfull; call later; no, she doesn't have a pen. ?? Where's she been seen/when; what's she had done ?? Need email to send [facility] forms documented in this encounter Plan of Treatment Not on filedocumented as of this encounter Visit Diagnoses Not on filedocumented in this encounter Care Teams Final Assembly Inspector Relationship Specialty Start Date End Date Justin Loya MD PCP - General Family Practice 02/19/11 [facility] [address] [place] [phone] Silas Santiago MD MD Pain Clinic 11/29/13 [facility] [address] [place] [address] documented as of this encounter
--- OUTSIDE RECORDS SUMMARY | 2022-06-23 17:45 | XMS_ITS | Encounter Summary ---
:1990 Author Organization [place] Address [address] [facility] [place] [address] Care Team Providers Name Role Phone Justin Loya MD Primary Care Provider Silas Santiago MD Unavailable Reason for Referral - Closed Specialty Diagnoses / Procedures Referred By Contact Refer red To Contact Diagnoses Neuropathy [facility] Neurology [place] [phone] Referral ID Status Reason Start Date Expiration Date Visits Requ ested Visits Authorized [id number] Closed 12/14/2013 06/12/2014 1 1 onsultation - Closed Specialty Diagnoses / Procedures Referred By Contact Refer red To Contact Diagnoses Neuropathy [facility] Neurology [place] [phone] Referral ID Status Reason Start Date Expiration Date Visits Requ ested Visits Authorized [id number] Closed 12/13/2013 06/11/2014 1 1 Reason for Visit Reason Onset Date Comments Referral 12/13/2013 QSART Encounter Details Date Type Department Care Team Description 12/13/2013 Telephone Neurology Clinic Raya Vee RN Referral (QSART) [facility] 1[address] Floor, Clinic [address] [place] [address] [phone] Social History Tobacco Use Types Packs/Day Years Used Date Smoking Tobacco: Never Smokeless Tobacco: Never Alcohol Use Standard Drinks/Week Comments No 0 (1 standard drink = 0.6 oz pure alcoho l) Sex Assigned at Date Recorded Not on file documented as of this encounter Miscellaneous Notes Telephone Encounter - Ryaa Vee RN - 12/15/2013 10:23 AM CDT Referral, labs and office note faxed to neurology clinic at [place]. [place] will contact patient to schedule appointment. Telephone Encounter - Raya Vee RN - 12/13/2013 10:05 AM CDT Patient referred to [facility] for QSART (Sweat Test) only. Copy of printed copy mailed to patient and [place] [facility] notified and will contact the patient to schedule. documented in this encounter Plan of Treatment Scheduled Referrals Name Type Priority Associated Diagnoses Order S [facility] NEUROLOGY ADULT REFERRAL Referral Routine Neuropathy Ord ered: 12/13/2013 [facility] Referral Routine Neuropathy Ord ered: 12/14/2013 Referral documented as of this encounter Visit Diagnoses Diagnosis Neuropathy - Primary Mononeuritis of unspecified site documented in this encounter Care Teams Drip Box Tender Relationship Specialty Start Date End Date Justin Loya MD PCP - General Family Practice 02/19/11 [facility] [address] [place] [phone] Silas Santiago MD MD Pain Clinic 11/29/13 [facility] [address] [facility] [place] [id number] documented as of this encounter
--- OUTSIDE RECORDS SUMMARY | 2022-06-23 17:45 | XMS_ITS | Encounter Summary ---
:1990 Author Organization [place] Address [address] [facility] [place] [address] Care Team Providers Name Role Phone Justin Loya MD Primary Care Provider Silas Santiago MD Unavailable Reason for Visit Reason Comments Chest Pain Blood clot in L jugular vein Encounter Details Date Type Department Care Team Description 04/07/2017 [facility] Jeffry Valdez MD Other chest pain; [facility] Emergency Dep t EMERGENCY PHYSICIAN [place] Anxiety [address] [facility] [address] [place], [place] [phone] Social History Tobacco Use Types Packs/Day Years Used Date Smoking Tobacco: Never Smokeless Tobacco: Never Alcohol Use Standard Drinks/Week Comments No 0 (1 standard drink = 0.6 oz pure alcoho l) Sex Assigned at Date Recorded Not on file documented as of this encounter Last Filed Vital Signs Vital Sign Reading Time Taken Comments Blood Pressure 120/78 04/07/2017 8:14 PM CDT Pulse 77 04/07/2017 8:14 PM CDT Temperature - - Respiratory Rate 18 04/07/2017 8:14 PM CDT Oxygen Saturation 99% 04/07/2017 8:14 PM CDT Inhaled Oxygen Concentration - - Weight - - Height - - Body Mass Index - - documented in this encounter Discharge Instructions Discharge InstructionsSilas Vadlez MD - 04/07/2017 7:23 PM CDT Images from the original note were not included. Anxiety??Reaction Anxiety is the feeling we all get when we think something bad might happen. It is a normal response to stress and usually causes only a mild reaction. When anxiety becomes more severe, it can??interfere with daily life. In some cases, you may not even be aware of what it is you???re anxious about. There may also be a genetic link or it may be a learned behavior in the home. Both psychological and physical triggers cause stress reaction. It's often a response to fear or emotional stress, real or imagined. This stress may come from home, family, work, or social relationships. During an anxiety reaction, you may feel: ?? Helpless ?? Nervous ?? Depressed ?? Irritable Your body may show signs of anxiety in many ways. You may experience: ?? Dry mouth ?? Shakiness ?? Dizziness ?? Weakness ?? Trouble breathing ?? Breathing fast (hyperventilating) ?? Chest pressure ?? Sweating ?? Headache ?? Nausea ?? Diarrhea ?? Tiredness ?? Inability to sleep ?? Sexual problems Home care ?? Try to locate the sources of stress in your life. They may not be obvious. These may include: ?? Daily hassles of life (traffic jams, missed appointments, car troubles, etc.) ?? Major life changes, both good (new baby, job promotion) and bad (loss of job, loss of loved one) ?? Overload: feeling that you have too many responsibilities and can't take care of all of them at once ?? Feeling helpless, feeling that your problems are beyond what you???re able to solve ?? Notice how your body reacts to stress. Learn to listen to your body signals. This will help you take action before the stress becomes severe. ?? When you can, do something about the source of your stress. (Avoid hassles, limit the amount of change that happens in your life at one time and take a break when you feel overloaded). ?? Unfortunately, many stressful situations can't be avoided. It is necessary to learn how to bettermanage stress. There are many proven methods that will reduce your anxiety. These include simple things like exercise, good nutrition and adequate rest. Also, there are certain techniques that are helpful: ?? Relaxation ?? Breathing exercises ?? Visualization ?? Biofeedback ?? Meditation For more information about this, consult your doctor or go to a local bookstore and review the many books and tapes available on this subject. Follow-up care If you feel that your anxiety is not responding to self-help measures, contact your doctor or make an appointment with a counselor. You may need short-term psychological counseling and temporary medicine to help you manage stress. Call 911 Call your healthcare provider right away if any of these occur: ?? Trouble breathing ?? Confusion ?? Drowsiness or trouble wakening ?? Fainting or loss of consciousness ?? Rapid heart rate ?? Seizure ?? New chest pain that becomes more severe, lasts longer, or spreads into your shoulder, arm, neck, jaw, or back When to seek medical advice Call your healthcare provider right away if any of these occur: ?? Your symptoms get worse ?? Severe headache not relieved by rest and mild pain reliever Date Last Reviewed: 04/17/2015 ?? [id number] [employer]. [address] [place] [address]. All rights reserved. This information is not intended as a substitute for professional medical care. Always follow your healthcare professional's instructions. *CHEST PAIN, UNCERTAIN CAUSE Based on your exam today, the exact cause of your chest pain is not certain. Your condition does notseem serious at this time, and your pain does not appear to be coming from your heart. However, sometimes the signs of a serious problem take more time to appear. Therefore, watch for the warning signslisted below. HOME CARE: 1. Rest today and avoid strenuous activity. 2. Take any prescribed medicine as directed. FOLLOW UP with your doctor in 1-3 days. GET PROMPT MEDICAL ATTENTION if any of the following occur: ?? A change in the type of pain: if it feels different, becomes more severe, lasts longer, or beginsto spread into your shoulder, arm, neck, jaw or back ?? Shortness of breath or increased pain with breathing ?? Weakness, dizziness, or fainting ?? Cough with blood or dark colored sputum (phlegm) ?? Fever over 101?? F (38.3?? C) ?? Swelling, pain or redness in one leg ?? [phone] [facility], [address] [place] [address], [place] [address]. All rights reserved. This information is not intended as a substitute for professional medical care. Always follow your healthcare professional's instructions. documented in this encounter Medications at Time of Discharge Medication Sig Dispensed Refills Start Date End Date acetaminophen (TYLENOL) Take 1-2 tablets by 0 05/20/2017 500 MG tablet mouth every 6 hours as needed. diazepam (VALIUM) 5 MG Take 1 tablet by 30 tablet 0 011 10/12/2017 tabletIndications: mouth every 6 hours Lumbar radiculopathy as needed (spasm). HYDROcodone-acetaminophe Take 1-2 tablets by 15 tablet 0 05/20/2017 n (NORCO) 5-325 MG per mouth every 4 hours tablet as needed for moderate to severe pain lidocaine (LIDODERM) 5 % Place 1 patch onto 30 patch 0 01/201405/20/2017 patchIndications: Small the skin every 12 fiber neuropathy hours magnesium hydroxide Take 15 mLs by mouth 360 mL 1 201605/20/2017 (MILK OF MAGNESIA) 400 every 4 hours as MG/5ML suspension needed for constipation or heartburn metoclopramide (REGLAN) Take 1 tablet (10 mg) 12 tablet 0 0 11/01/2016 05/20/2017 10 MG tablet by mouth 4 times daily as needed oxyCODONE (ROXICODONE) 5 Take 1 tablet (5 mg) 8 tablet 0 0 04/04/2017 05/20/2017 MG IR tablet by mouth every 6 hours as needed for moderate to severe pain rivaroxaban Take 1 tablet (15 mg) 42 tablet 0 04/04/2017 ANTICOAGULANT (XARELTO) by mouth 2 times 15 MG TABS tablet daily (with meals) for 21 days traMADol (ULTRAM) 50 MG Take 1 tablet (50 mg) 90 tablet 0 0 11/29/2013 05/20/2017 tabletIndications: by mouth every 8 Neuropathic pain hours as needed for moderate pain documented as of this encounter ED Notes Norma Beckwith RN - 04/07/2017 6:10 PM CDT Pt here with chest pain that started yesterday. Pt diagnosed with L jugular vein blood clot 3 days prior and started on xarelto. MD at bed side. Silas Valdez MD - 04/07/2017 6:00 PM CDT History Chief Complaint: Chest Pain and Blood clot in L jugular vein HPI Destiney Cassidy is a 26 year old female who presents to the emergency department today for evaluation of chest pain. The patient reports having a routine MRI for a cyst/mass in brain after having arm pain and was found to have a blood clot in her left jugular vein and put on Xarelto. She was seen on 2 days ago and found the clot shrunk, US and CT results reviewed. Today she began having chest pain which she attributes to the anxiety of her recent diagnosis. Therefore, she presents to the emergency department for evaluation. On presentation, she states she has been taking her Xarelto since 3 days ago. Allergies: Cefzil [Cefprozil] Ciprofloxacin Penicillin G Medications: rivaroxaban ANTICOAGULANT (XARELTO) 15 MG TABS tablet oxyCODONE (ROXICODONE) 5 MG IR tablet metoclopramide (REGLAN) 10 MG tablet HYDROcodone-acetaminophen (NORCO) 5-325 MG per tablet magnesium hydroxide (MILK OF MAGNESIA) 400 MG/5ML suspension traMADol (ULTRAM) 50 MG tablet lidocaine (LIDODERM) 5 % patch diazepam (VALIUM) 5 MG tablet acetaminophen (TYLENOL) 500 MG tablet Past Medical History: Back pain, low Insomnia Past Surgical History: Decompression lumbar minimally invasive one level Myringotomy, insert tube bilateral, combined Tonsillectomy [place] Family History: Blood clots Social History: The patient was accompanied to the ED by family. Smoking Status: Never Smokeless Tobacco: Never Alcohol Use: No Marital Status: Single Review of Systems Constitutional: Negative for fever. Cardiovascular: Positive for chest pain. Psychiatric/Behavioral: The patient is nervous/anxious. All other systems reviewed and are negative. Physical Exam First Vitals: BP 139/84 Pulse 92 Resp 18 LMP 04/03/2017 SpO2 96% Physical Exam Constitutional: Patient is well appearing. No distress. Head: Atraumatic. Mouth/Throat: Oropharynx is clear and moist. No oropharyngeal exudate. Eyes: Conjunctivae and EOM are normal. No scleral icterus. Neck: Normal range of motion. Neck supple. Cardiovascular: Normal rate, regular rhythm, normal heart sounds and intact distal pulses. Pulmonary/Chest: Breath sounds normal. No respiratory distress. Abdominal: Soft. Bowel sounds are normal. No distension. No tenderness. No rebound or guarding. Musculoskeletal: Normal range of motion. No edema or tenderness. Neurological: Alert and orientated to person, place, and time. No observable focal neuro deficit Skin: Warm and dry. No rash noted. Not diaphoretic. Emergency Department Course ECG: Indication: chest pain Completed at 1809. Read at 1820. Normal sinus rhythm with sinus arrhythmia Possible Left atrial enlargement Borderline ECG Rate 88 bpm. WV interval 1501. QRS duration 84. QT/QTc 380/459. P-R-T axes 70 64 69. Emergency Department Course: Nursing notes and vitals reviewed. 1812: I performed an exam of the patient as documented above. 1918: Walking O2 at 96% and not tachycardic. 1957: Patient rechecked and updated. I discussed the treatment plan with the [...] answered. Impression & Plan Medical Decision Making: Incidental clot found in IJ. Now with anxiety andfear fo any pain anywhere is new clot. No new pure chest pain SOB or exertional component. Already had CT <48h normal for this chest pain and no progation of clot actually less burden. With extensive wlaking HR and O2 sat both normal made shared decision to not image anymore without acute abrupt change in sx. Pt and both agree. Diagnosis: ICD-10-CM 1. Other chest pain R07.89 2. Anxiety F41.9 Disposition: Discharged to home Scribe Disclosure: Khushboo Whipple, am serving as a scribe at 6:05 PM on 04/07/2017 to document services personally performed by Silas Valdez MD based on my observations and the provider's statements to me. 04/07/2017 [facility] EMERGENCY DEPARTMENT Silas Valdez MD 04/07/17 2211 documented in this encounter Plan of Treatment Not on filedocumented as of this encounter Procedures Procedure Name Priority Date/Time Associated Diagnosis Comme nts EKG 12-LEAD, STAT 04/07/2017 6:09 PM Results f or this TRACING ONLY CDT procedure are i n the results section. documented in this encounter Results EKG 12 lead (04/07/2017 6:09 PM CDT) [facility] gist Method Time Signature Interpretation ECG Click View RADIOLOGY Image link RESULTS to view waveform and result Specimen (Source) Anatomical Collection Method Collection Time Re ceived Time Location / / Volume Laterality 04/07/2017 6:09 PM CDT Silas Valdez MD ECG ORDERABLES Performing Organization Address City/[facility]/ZIP Code Phon e Number RADIOLOGY RESULTS documented in this encounter Visit Diagnoses Diagnosis Other chest pain Anxiety Anxiety state, unspecified documented in this encounter Care Teams Hooker On Relationship Specialty Start Date End Date Justin Loya MD PCP - General Family Practice 02/19/11 [facility] [address] [place] [phone] Silas Santiago MD MD Pain Clinic 11/29/13 [facility] [address] [place] [address] documented as of this encounter
--- OUTSIDE RECORDS SUMMARY | 2022-06-23 17:45 | XMS_ITS | Encounter Summary ---
:1990 Author Organization [place] Address [address] [facility] [place] [address] Care Team Providers Name Role Phone Justin Loya MD Primary Care Provider Silas Santiago MD Unavailable Reason for Referral Consultation - Closed Specialty Diagnoses / Procedures Referred By Contact Refer red To Contact Neurology Diagnoses Small fiber neuropathy Valentín Unger [facility] [address] [facility] [address] [place] [facility] [id number] [place], [place] [phone] Phone: [phone] Referral ID Status Reason Start Date Expiration Date Visits Requ ested Visits Authorized [id number] Closed 05/11/2015 05/10/2016 1 1 Encounter Details Date Type Department Care Team Description 02/07/2014 Office Visit [facility] Serafin Alex M D Small fiber neuropathy Neurology [facility] [place] [address] [facility] ( Primary Dx) [id number] [place] [phone] Social History Tobacco Use Types Packs/Day Years Used Date Smoking Tobacco: Never Smokeless Tobacco: Never Alcohol Use Standard Drinks/Week Comments No 0 (1 standard drink = 0.6 oz pure alcoho l) Sex Assigned at Date Recorded Not on file documented as of this encounter Plan of Treatment Scheduled Referrals Name Type Priority Associated Diagnoses Order S [facility] NEUROLOGY ADULT Referral Routine Small fiber neuropathy 1 Occurrences starting REFERRAL 05/11/2015 unti l 05/11/2016 documented as of this encounter Visit Diagnoses Diagnosis Small fiber neuropathy - Primary Unspecified hereditary and idiopathic pe ripheral neuropathy documented in this encounter Care Teams Bar Tender Relationship Specialty Start Date End Date Justin Loya MD PCP - General Family Practice 02/19/11 [facility] [address] [place] [phone] Silas Santiago MD MD Pain Clinic 11/29/13 [facility] [address] [place] [address] documented as of this encounter
--- OUTSIDE RECORDS SUMMARY | 2022-06-23 17:45 | XMS_ITS | Encounter Summary ---
:1990 Author Organization [place] Address [address] [facility] [place] [address] Care Team Providers Name Role Phone Justin Loya MD Primary Care Provider Silas Santiago MD Unavailable Reason for Visit Reason Comments No Show Encounter Details Date Type Department Care Team Description 04/06/2017 Office Visit [facility] Allen Oliver NO S HOW (Primary Dx) Clinic [place] [address] [place] [address] [place], [place] [address] [address] [place], [place] [phone] (Wo rk) [address] [phone] Social History Tobacco Use Types Packs/Day Years Used Date Smoking Tobacco: Never Smokeless Tobacco: Never Alcohol Use Standard Drinks/Week Comments No 0 (1 standard drink = 0.6 oz pure alcoho l) Sex Assigned at Date Recorded Not on file documented as of this encounter Progress Notes Allen Oliver MD - 04/06/2017 1:40 PM CDT No show. documented in this encounter Plan of Treatment Not on filedocumented as of this encounter Visit Diagnoses Diagnosis NO SHOW - Primary documented in this encounter Care Teams Coverstitch Binder Relationship Specialty Start Date End Date Justin Loya MD PCP - General Family Practice 02/19/11 [facility] [address] [place] [phone] Silas Santiago MD MD Pain Clinic 11/29/13 [facility] [address] [place] [address] documented as of this encounter
--- OUTSIDE RECORDS SUMMARY | 2022-06-23 17:45 | XMS_ITS | Encounter Summary ---
:1990 Author Organization [place] Address [address] [facility] [place] [address] Care Team Providers Name Role Phone Justin Loya MD Primary Care Provider Silas Santiago MD Unavailable Reason for Visit Reason Onset Date Comments Previsit 01/25/[address] Cueva 0 02/07/14 Encounter Details Date Type Department Care Team Description 01/25/2014 PRE VISIT [facility] Serafin Cueva M D Previsit (Appt with Neurology Clinic [address] 02/07/14) Javier [id number] [address] [place] [phone] Social History Tobacco Use Types Packs/Day Years Used Date Smoking Tobacco: Never Smokeless Tobacco: Never Alcohol Use Standard Drinks/Week Comments No 0 (1 standard drink = 0.6 oz pure alcoho l) Sex Assigned at Date Recorded Not on file documented as of this encounter Miscellaneous Notes Telephone Encounter - Raya Sykes - 02/14/2014 8:36 AM CDT Unable to contact pt for Pre visit with Dr. Cueva. Raya Sykes LPN documented in this encounter Plan of Treatment Not on filedocumented as of this encounter Visit Diagnoses Not on filedocumented in this encounter Care Teams Reaming Machine Operator Relationship Specialty Start Date End Date Justin Loya MD PCP - General Family Practice 02/19/11 [facility] [address] [place] [phone] Silas Santiago MD MD Pain Clinic 11/29/13 [facility] [address] [place] [address] documented as of this encounter
--- OUTSIDE RECORDS SUMMARY | 2022-06-23 17:45 | XMS_ITS | Encounter Summary ---
:1990 Author Organization [place] Address [facility] [place] [address] Care Team Providers Name Role Phone Justin Loya MD Primary Care Provider Silas Santiago MD Unavailable Reason for Visit Reason Onset Date Comments Results 12/15/2013 MRI Comparison Encounter Details Date Type Department Care Team Description 12/15/2013 Telephone Neurology Clinic Raya Vee I, Results (MRI Comparison) Avel front end ui developer [phone] 1[address] Floor, Clinic [address]A (Work) [address] [place] [phone] Social History Tobacco Use Types Packs/Day Years Used Date Smoking Tobacco: Never Smokeless Tobacco: Never Alcohol Use Standard Drinks/Week Comments No 0 (1 standard drink = 0.6 oz pure alcoho l) Sex Assigned at Date Recorded Not on file documented as of this encounter Miscellaneous Notes Telephone Encounter - Raya Vee I RN - 12/20/2013 11:54 AM CDT Called and left voicemail for patient explaining that Dr. Unger reviewed her previous MRI's with Dr. Osuna and there is no evidence for arachnoiditis. Reinforced following through with schedulinga consult and sweat test with [facility] (referral already made) and phone number provided. 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 Telephone Encounter - Raya Vee RN - 12/16/2013 2:34 PM CDT Destiney called asking if Dr. Unger has met with the radiologist to review her MRI results. Informed Destiney that Dr. Unger out of the office this afternoon and that a message would be sent for him to call her Thursday. Telephone Encounter - Raya Vee RN - 12/15/2013 11:22 AM CDT Destiney called wanting to talk to Dr. Unger regarding MRI comparisons. Message sent to Dr. Unger. documented in this encounter Plan of Treatment Not on filedocumented as of this encounter Visit Diagnoses Not on filedocumented in this encounter Care Teams Industrial Nurse Relationship Specialty Start Date End Date Justin Loya MD PCP - General Family Practice 02/19/11 [facility] [address] [place] [phone] Silas Santiago MD MD Pain Clinic 11/29/13 [facility] [address] [place] [address] documented as of this encounter
--- OUTSIDE RECORDS SUMMARY | 2022-06-23 17:45 | XMS_ITS | Encounter Summary ---
:1990 Author Organization [place] Address [address] [place] [address] Care Team Providers Name Role Phone Justin Loya MD Primary Care Provider Aron Santiago MD Unavailable Reason for Visit Reason Comments Abdominal Pain Encounter Details Date Type Department Care Team Description 11/01/2016 Emergency [facility] Sury Phelps A bdominal pain, unspecified location; [facility] Emergency Dep t Non-intractable vomiting with nausea, un specified vomiting type [address] [facility] [place], [place] [address] [address] [facility] [phone] [place], [place] [address] (Wo rk) Social History Tobacco Use Types Packs/Day Years Used Date Smoking Tobacco: Never Smokeless Tobacco: Never Alcohol Use Standard Drinks/Week Comments No 0 (1 standard drink = 0.6 oz pure alcoho l) Sex Assigned at Date Recorded Not on file documented as of this encounter Last Filed Vital Signs Vital Sign Reading Time Taken Comments Blood Pressure 117/79 11/01/2016 1:05 PM CDT Pulse 100 11/01/2016 10:11 AM CDT Temperature 36.6 ??C (97.8 ??F) 11/01/2016 10:11 AM CDT Respiratory Rate 20 11/01/2016 10:11 AM CDT Oxygen Saturation 98% 11/01/2016 1:06 PM CDT Inhaled Oxygen Concentration - - Weight - - Height - - Body Mass Index - - documented in this encounter Discharge Instructions Discharge InstructionsSury Phelps MD - 11/01/2016 12:40 PM CDT Discharge Instructions Abdominal Pain Abdominal [...] throwing up or can???t drink liquids. ??? You see blood when you throw up. ??? You can???t have a bowel movement or you can???t pass gas. ??? Your stomach gets bloated or bigger. ??? Your skin or the whites of your eyes look yellow. ??? You faint. ??? You have bloody, frequent or painful urination. ??? You have new symptoms or anything [...] dehydrated. Signs of dehydration can be: o Your has had no wet diapers in 4-5 hours. o Your older child has not passed urine in 6-8 hours. o Your infant or child starts to [...] that will not stop. ??? You have painful or bloody urination. ??? You have a temperature of 100oF or more. ??? Your baby is not moving as much as usual. ??? You faint. ??? You get a bad headache with or without eye problems and abdominal pain. ??? You have a convulsion or seizure. ??? You have unusual discharge from your vagina and abdominal pain. Abdominal pain is pretty common during . Your pain may or may not be related to your . You should follow-up closely with your OB doctor so they can evaluate you and your baby. Until you follow-up with your regular doctor, do the following: ??? Avoid sex and do not put anything in your vagina. ??? Drink clear fluids. ??? Only take medications approved by your doctor. [...] directed by your doctor today. Before using [id number]-[id number] medications, ask your doctor and make sure [...] contain Tylenol?? (acetaminophen), including Vicodin??, Tylenol #3??, [place]??, Lortab??, and Percocet??. You should not take [...] if there is anything that worries you. Discharge Instructions Vomiting You have been seen today for vomiting. This is usually caused by a virus, but some bacteria, parasites, medicines or other medical conditions can cause similar symptoms. At this time your doctor does not find that your vomiting is a sign of anything dangerous or life-threatening. However, sometimes the signs of serious illness do not show up right away. If you have new or worse symptoms, you may needto be seen again in the emergency department or by your primary doctor. Remember that serious problems like appendicitis can start as vomiting. Return to the Emergency Department if: ??? [...] You have blood in your vomit or stools. ??? You feel very weak. ??? You are not starting to improve within 24 hours of your visit here. What can I do to help myself? [...] as water, weak tea, apple juice, and 7-Up??. Avoid acid liquids (orange), caffeine (coffee) or alcohol. Do not drink milk until you no longer have diarrhea. ??? After liquids are staying down, you may start eating mild foods. Soda crackers, toast, plain noodles, gelatin, applesauce and bananas are good first choices. Avoid foods that have acid, are spicy, fatty or have a lot of fiber (such as meats, coarse grains, vegetables). You may start eating these foods again in about 3 days when you are better. ??? Sometimes treatment includes prescription medicine to prevent nausea and vomiting. If your doctor prescribes these for you, take them as directed. ??? Don???t take ibuprofen, or other nonsteroidal anti-inflammatory medicines without checking with your healthcare provider. If you were given a prescription for [...] contain Tylenol?? (acetaminophen), including Vicodin??, Tylenol #3??, [place]??, Lortab??, and Percocet??. You should not take [...] 6 hours Lumbar radiculopathy as needed (spasm). gabapentin (NEURONTIN) Take 300 mg by mouth 0 04/05/2017 300 MG 2 times daily capsuleIndications: Small fiber neuropathy HYDROcodone-acetaminophe Take 1-2 tablets by 15 tablet [...] by mouth 4 times daily as needed traMADol (ULTRAM) 50 MG Take 1 tablet (50 mg) 90 tablet 0 0 11/29/2013 05/20/2017 tabletIndications: by mouth every 8 Neuropathic pain hours as needed for moderate pain documented as of this encounter ED Notes Tayler Forrest RN - 11/01/2016 11:56 AM CDT Pt given glass of water and crackers. Elisa White RN - 11/01/2016 10:10 AM CDT Vomiting and Thursday, now with mid-abdominal pain. Sury Phelps MD - 11/01/2016 10:00 AM CDT History Chief Complaint: Abdominal Pain HPI Destiney Cassidy is a 25 year old female who presents for evaluation of mid abdominal pain. Three days ago, the patient developed nausea and vomiting, closely followed by severe abdominal pain and chills. The patient presented in clinic for her symptoms yesterday, during which his pain temporarily subsided without the use of medications and she discharged with nausea medications. However, at 8 pm last night she had a return of her symptoms which have persisted into today, prompting her visit to the ED. Here, she mentions that her pain is worse with movement and that she is also experiencing decreased urination, likely due to decreased fluid intake, and constipation, which is baseline for her. The patient denies any fever, dysuria, hematuria, frequency, urgency, diarrhea, sexual activity, or concern for . 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 Allergies: Cefzil [Cefprozil] Ciprofloxacin Penicillin G Medications: Tramadol (ultram) Gabapentin (neurontin) Lidocaine (lidoderm) Diazepam (valium) Acetaminophen (tylenol) Past Medical History: Back pain, low Insomnia Past Surgical History: Decompression lumbar minimally invasive one level Myringotomy, insert tube bilateral, combined Tonsillectomy [place] teeth Family History: History reviewed. No significant family history. Social History: Relationship status: Single Tobacco use: Neg Alcohol use: Neg The patient presents with her mother. Review of Systems Constitutional: Positive for chills and fever. Gastrointestinal: Positive for abdominal pain, constipation, nausea and vomiting. Negative for diarrhea. Genitourinary: Positive for decreased urine volume. Negative for difficulty urinating, dysuria, frequency, hematuria and urgency. All other systems reviewed and are negative. Physical Exam First Vitals: BP: 128/82 Pulse: 100 Heart Rate: 100 Temp: 97.8 ??F (36.6 ??C) Resp: 20 SpO2: 96 % Physical Exam Constitutional: She is cooperative. HENT: Right Ear: Tympanic membrane normal. Left Ear: Tympanic membrane normal. Mouth/Throat: Oropharynx is clear and moist and mucous membranes are normal. Eyes: Conjunctivae are normal. Neck: Normal range of motion. Cardiovascular: Regular rhythm and normal heart sounds. Pulmonary/Chest: Effort normal and breath sounds normal. Abdominal: Soft. Normal appearance and bowel sounds are normal. There is tenderness in the right lower quadrant and periumbilical area. There is no rebound and no guarding. Musculoskeletal: Normal range of motion. Lymphadenopathy: She has no cervical adenopathy. Neurological: She is alert. Skin: Skin is warm and dry. Psychiatric: She has a normal mood and affect. Emergency Department Course Imaging: CT Abdomen and Pelvis, with contrast, per radiology: 1. No acute abnormality is seen. 2. Likely a functional cyst at the left ovary. Small pelvic fluid. 3. Normal appendix. Radiographic findings were communicated with the patient who voiced understanding of the findings. Laboratory: CBC: WBC 5.4, HGB 14.5, PLT 173 CMP: Glucose 102 (H), Bilirubin total 1.7 (H), o/w WNL (Creatinine 0.82) Lipase: 78 HCG Qualitative blood: Negative UA: Slightly cloudy, yellow urine: Protein albumin 30 (A), WBC 3 (H), Bacteria Few (A), Squamous epithelial/HPF 5 (H), Mucous Present (A), o/w WNL Urine Culture: Pending Interventions: 1131: Normal Saline, 1000 mL, IV 1153: Dextrose 5% and 0.45% NaCl, 500 mL, IV 1215: Mylanta, 30 mL, PO 1216: Reglan, 5 mg, IV Emergency Department Course: Nursing notes and vitals reviewed. I performed an exam of the patient as documented above. The above workup was undertaken. 1440: I rechecked the patient and discussed results. Findings and plan explained to the Patient. Patient discharged home, status improved, with instructions regarding supportive care, medications, and reasons to return as well as the importance of close follow-up was reviewed. Impression & Plan Medical Decision Making: Destiney Cassidy is a 25 year old female who presents with persistent mid abdominal pain after recent vomiting. Although she suspected this might be due to gastroenteritis, she has had exposures without diarrhea, I was hesitant to accept this diagnosis. She noted significant pain with ambulation and other history suggestive of a possible peritoneal problem in the abdomen. Laboratory tests are remarkable mostly for elevated bilirubin. Without elevation of liver function tests however, this probably represents Gilbert's syndrome. CT is unremarkable. She is given fluid here and with this, she is able to take oral fluid and crackers. I will discharge the patient home with Reglan to use as needed, though she is hesitant to take this because she tends to get a lot of side effects with medications. I prescribed Vicodin as needed for pain, clear liquids advancing as tolerated, return if worsening symptoms. Diagnosis: ICD-10-CM 1. Abdominal pain, unspecified location R10.9 2. Non-intractable vomiting with nausea, unspecified vomiting type R11.2 Disposition: discharged to home Discharge Medication List as of 11/01/2016 12:41 PM START taking these medications Details metoclopramide (REGLAN) 10 MG tablet Take 1 tablet (10 mg) by mouth 4 times daily as needed, Disp-12tablet, R-0, Local Print HYDROcodone-acetaminophen (NORCO) 5-325 MG per tablet Take 1-2 tablets by mouth every 4 hours as needed for moderate to severe pain, Disp-15 tablet, R-0, Local Print I, Porsha Jovel am serving as a scribe on 11/01/2016 at 10:21 AM to personally document services performed by Sury Phelps MD, based on my observations and the provider's statements to me. [facility] EMERGENCY DEPARTMENT Sury Phelps MD 11/01/16 1514 documented in this encounter Plan of Treatment Not on filedocumented as of this encounter Procedures Procedure Name Priority Date/Time Associated Comments Diagnosis ROUTINE UA WITH STAT 11/01/2016 11:42 Results for this MICROSCOPIC AM CDT procedure are i n the results section. CT ABDOMEN PELVIS W STAT 11/01/2016 11:13 Resu lts for this CONTRAST AM CDT procedure are i n the results section. CBC WITH PLATELETS & STAT 11/01/2016 10:46 Res ults for this DIFFERENTIAL AM CDT procedure are i n the results section. LIPASE STAT 11/01/2016 10:46 Results for this AM CDT procedure are i n the results section. HCG QUALITATIVE STAT 11/01/2016 10:46 Results for this AM CDT procedure are i n the results section. COMPREHENSIVE STAT 11/01/2016 10:46 Results fo r this METABOLIC PANEL AM CDT procedure ar e in the results section. documented in this encounter Results (ABNORMAL) UA with Microscopic (11/01/2016 11:42 AM CDT) [employer] Method Time Signature Color Urine Yellow [facility] Appearance Urine Slightly [place] Cloudy [facility] Glucose Urine Negative NEG mg/dL [facility] Bilirubin Urine Negative NEG [facility] Ketones Urine Negative NEG mg/dL [facility] Specific [place] 1.015 1.003 - [place] Urine 1.035 [facility] Blood Urine Negative NEG [facility] pH Urine 5.0 5.0 - 7.0 [place] pH [facility] Protein Albumin 30 (A) NEG mg/dL [facility] Urobilinogen 2.0 0.0 - 2.0 [place] mg/dL mg/dL [facility] Nitrite Urine Negative NEG [facility] Leukocyte Negative NEG [place] Esterase Urine [facility] Source Midstream [place] Urine [facility] WBC Urine 3 (H) 0 - 2 [facility] RBC Urine <1 0 - 2 [facility] Bacteria Urine Few (A) NEG /HPF [facility] Squamous 5 (H) 0 - 1 [place] Epithelial /HPF /[facility] Mucous Urine Present (A) NEG /LPF [facility] Specimen Anatomical Collection Method Collection Time Receive d Time (Source) Location / / Volume Laterality Urine specimen URINE SPECIMEN 11/01/2016 11:42 017 (specimen) OBTAINED BY CLEAN AM CDT 12:06 PM C DT CATCH PROCEDURE / Unknown Sury Phelps MD LAB - URINE ORDERABLES Performing Organization Address City/State/ZIP Code Phon e Number [place] [address] [place] [address] [facility] [address] [phone] CT Abdomen Pelvis w Contrast (11/01/2016 11:13 AM CDT) Anatomical Region Laterality Modality Abdomen/Pelvis, SUBRAD CT BODY, UMP CT ABDOMEN PELVIS Computed Tomography Specimen (Source) Anatomical Location Collection Method / Collectio n Time Received Time / Laterality Volume Impressions 11/01/2016 2:19 PM CDT IMPRESSION: 1. No acute abnormality is seen. 2. Likely a functional cyst at the left ovary. Small pelvic fluid. 3. Normal appendix. ARON CURRIE MD Narrative 11/01/2016 2:[address] ABDOMEN AND PELVIS WITH CONTRAST ?? 11/01/2016 11:13 AM HISTORY: Abdominal pain. TECHNIQUE: CT abdomen and pelvis with 60 mL Isovue-370 IV. Radiation dose for this scan was reduced using aut omated exposure control, adjustment of the mA and/or kV according to patient size, or iterative reconstruction technique. COMPARISON: None. FINDINGS: The appendix appears normal on series 2 image 61. There is likely a functional cyst of the left ova ry measuring 1.4 cm image 69. Small pelvic fluid. No bowel obstruction . No acute inflammatory change of the small or large bowel identified. No free air or abscess. Liver, gallbladder, adrenals, spleen, pancreas, and kidneys show no acute abnormalities. Normal abdominal aorta. Procedure Note Aron Currie MD - 11/01/2016Forma tting of this note might be different from the original. CT ABDOMEN AND PELVIS WITH CONTRAST 11/01 11:13 AM HISTORY: Abdominal pain. TECHNIQUE: CT abdomen and pelvis with 60 mL Isovue-370 IV. Radiation dose for this scan was reduced using aut omated exposure control, adjustment of the mA and/or kV according to patient size, or iterative reconstruction technique. COMPARISON: None. FINDINGS: The appendix appears normal on series 2 image 61. There is likely a functional cyst of the left ova ry measuring 1.4 cm image 69. Small pelvic fluid. No bowel obstruction . No acute inflammatory change of the small or large bowel identified. No free air or abscess. Liver, gallbladder, adrenals, spleen, pancreas, and kidneys show no acute abnormalities. Normal abdominal aorta. IMPRESSION: 1. No acute abnormality is seen. 2. Likely a functional cyst at the left ovary. Small pelvic fluid. 3. Normal appendix. ARON CURRIE MD Sury Phelps MD IMG CT ORDERABLES HCG QUALitative (11/01/2016 10:46 AM CDT) Patholo gist Method Time Signature HCG Qualitative Negative NEG [facility] Specimen Anatomical Collection Method Collection Time Receive d Time (Source) Location / / Volume Laterality Blood specimen 11/01/2016 10:46 7 (specimen) AM CDT 10:53 AM CDT Sury Phelps MD LAB - BLOOD ORDERABLES Performing Organization Address City/State/ZIP Code Phon e Number M [facility] [address] [place] [address] [facility] [address] [phone] Lipase (11/01/2016 10:46 AM CDT) P athologist Signature Lipase 78 73 - 393 [facility] U/L [facility]PITAL Specimen Anatomical Collection Method Collection Time Receive d Time (Source) Location / / Volume Laterality Blood specimen 11/01/2016 10:46 7 (specimen) AM CDT 10:53 AM CDT Sury Phelps MD LAB - BLOOD ORDERABLES Performing Organization Address City/State/ZIP Code Phon e Number [place] [address] [address], [place] [address] [facility] [address] [place], [place] [address] [phone] (ABNORMAL) Comprehensive metabolic panel (11/01/2016 10:46 AM CDT) athologist Signature Sodium 141 133 - 144 [place] mmol/L [facility] Potassium 3.6 3.4 - 5.3 [place] mmol/L [facility] Chloride 107 94 - 109 [place] mmol/L [facility] Carbon Dioxide 28 20 - 32 [place] mmol/L [facility] Anion Gap 6 3 - 14 [place] mmol/L [facility] Glucose 102 (H) 70 - 99 [place] mg/dL [facility] Urea Nitrogen 16 7 - 30 [place] mg/dL [facility] Creatinine 0.82 0.52 - [place] 1.04 mg/dL [facility] GFR Estimate 84 >60 [place] mL/min/1.7 [facility] m2 [facility] Comment: Non GFR Calc GFR Estimate If Black >90 >60 mL/min/1.7m2 F [facility] GFR Calc HOSP ITAL Calcium 8.5 8.5 - 10.1 mg/dL [facility] Bilirubin Total 1.7 (H) 0.2 - 1.3 mg/dL [facility] Albumin 3.6 3.4 - 5.0 g/dL [facility] Protein Total 6.9 6.8 - 8.8 g/dL [facility] Alkaline Phosphatase 44 40 - 150 U/L [facility] ALT 25 0 - 50 U/L [facility] AST 18 0 - 45 U/L [facility] Specimen Anatomical Collection Method Collection Time Receive d Time (Source) Location / / Volume Laterality Blood specimen 11/01/2016 10:46 7 (specimen) AM CDT 10:53 AM CDT Sury Phelps MD LAB - BLOOD ORDERABLES Performing Organization Address City/State/ZIP Code Phon e Number M [facility] [address] [place], [place] [address] HOSPITAL [facility] [address] [place], [place] [address] [place] [address] (ABNORMAL) CBC with platelets differential (11/01/2016 10:46 AM CDT) [facility] gist Method Time Signature WBC 5.4 4.0 - [place] 11.0 [facility] 10e9/L [facility] RBC Count 4.85 3.8 - 5.2 [place] 10e12/L [facility] Hemoglobin 14.5 11.7 - [place] 15.7 g/dL [facility] Hematocrit 43.1 35.0 - [place] 47.0 % [facility] MCV 89 78 - 100 [facility] MCH 29.9 26.5 - [place] 33.0 pg [facility] MCHC 33.6 31.5 - [place] 36.5 g/dL [facility] RDW 12.0 10.0 - [place] 15.0 % [facility] Platelet Count 173 150 - 450 [place] 10e9/[facility] Diff Method Automated [place] Method [facility] % Neutrophils 78.6 % [facility] % Lymphocytes 10.3 % [facility] % Monocytes 9.3 % [facility] % Eosinophils 0.9 % [facility] % Basophils 0.7 % [facility] % Immature 0.2 % [place] Granulocytes [facility] Nucleated RBCs 0 0 /100 [facility] Absolute 4.2 1.6 - 8.3 [place] Neutrophil 10e9/L [facility] Absolute 0.6 (L) 0.8 - 5.3 [place] Lymphocytes 10e9/L [facility] Absolute 0.5 0.0 - 1.3 [place] Monocytes 10e9/L [facility] Absolute 0.1 0.0 - 0.7 [place] Eosinophils 10e9/L [facility] Absolute 0.0 0.0 - 0.2 [place] Basophils 10e9/L [facility] Abs Immature 0.0 0 - 0.4 [place] Granulocytes e9/L [facility] Absolute 0.0 [place] Nucleated [facility] Specimen Anatomical Collection Method Collection Time Receive d Time (Source) Location / / Volume Laterality Blood specimen 11/01/2016 10:46 7 (specimen) AM CDT 10:53 AM CDT Sury Phelps MD LAB - BLOOD ORDERABLES Performing Organization Address City/State/ZIP Code Phon e Number [place] [address] [address], [place] [address] [facility] [address] [place], [place] [address] [facility] [phone] documented in this encounter Visit Diagnoses Diagnosis Abdominal pain, unspecified location Non-intractable vomiting with nausea, un specified vomiting type documented in this encounter Administered Medications Inactive Administered Medications - up to 3 most recent administrations Medication Order MAR Action Action Date Dose Rate Site 0.9% sodium chloride BOLUS New Bag 11/01/2016 11:31 AM 1,000 mLs 1000 mL/hr Intravenous, 1,000 mL, CDT ONCE, at 1,000 mL/hr, Administer over 1 Hours, On 11/01/16 at 1030, For 1 dose 0.9% sodium chloride BOLUS New Bag 11/01/2016 11:06 AM CDT 55 mLs Intravenous, 1,000 mL, ONCE, On 11/01/16 at 1105, For 1 dose 0.9% sodium chloride infusion at 125 mL/hr, Intravenous, CONTINUOUS, A dminister after the bolus., Starting on 11/01/16 at 1030, Until 11/01/16 at 1508 alum & mag hydroxide-simethicone (MYLANTA Given 11/01/2016 12:15 PM CDT 30 mLs ES/MAALOX ES) suspension 30 mL 30 mL, Oral, ONCE, On 11/01/16 at 1154, For 1 dose, Shake well. dextrose 5% and 0.45% NaCl infusion New Bag 11/01/2016 11:53 AM CDT 500 mL/hr at 500 mL/hr, Intravenous, ONCE, 1 dose, On 11/01/16 at 1144 HYDROmorphone (PF) (DILAUDID) injection 0.5 mg 0.5 mg, Intravenous, EVERY 15 MIN PRN, moderate to sev ere pain, Starting on 11/01/16 at 1029, For 3 doses iopamidol (ISOVUE-370) solution 500 mL Given 11/01/2016 11:06 AM CDT 60 mLs 500 mL, Intravenous, ONCE, On 11/01/16 at 1105, For 1 dose documented in this encounter Active and Recently Administered Medications Times are shown in CDT. Scheduled Medication Order 10/30/2016 10/31/2016 11/01/2016 0.9% sodium chloride BOLUS (COMPLETED) 1131 (New Bag - Provider: Tayler Forrest RN)1147 (Stopped - Provider: Tayler Forrest RN) Intravenous, 1,000 mL, ONCE, at 1,000 mL /hr, Administer over 1 Hours, On 11/01/16 at 1030, For 1 dose 0.9% sodium chloride BOLUS (COMPLETED) 1106 (New Bag - Provider: Juliana Shepherd)1113 (Stopped - Provider: Juliana Shepherd) Intravenous, 1,000 mL, ONCE, On 11/01/16 at 1105, For 1 dose alum & mag hydroxide-simethicone (MYLANT A ES/MAALOX ES) suspension 30 mL (COMPLETED) 1215 (Given - Provid er: Tayler Forrest RN) 30 mL, Oral, ONCE, On 11/01/16 at 1154, For 1 dose, Shake wel l. dextrose 5% and 0.45% NaCl infusion (COMPLETED) 1153 (New Bag - Provider: Tayler Forrest RN)1241 (Stopped - Provider: Tayler Forrest RN) at 500 mL/hr, Intravenous, ONCE, 1 dose, On 11/01/16 at 1144 iopamidol (ISOVUE-370) solution 500 mL (COMPLETED) 1106 (Given - Provider: Juliana Shepherd) 500 mL, Intravenous, ONCE, On 11/01/16 at 1105, For 1 dose metoclopramide (REGLAN) injection 5 mg 1216 (Not Given - Provider: Tayler Forrest RN - Reason: Patient/family refused) 5 mg, Intravenous, ONCE, 11/01/16 at 1144, For 1 dose, Avoid use if patient has full bowel obstruction or perforation. Irritant. Continuous Medication Order 10/30/2016 10/31/2016 11/01/2016 0.9% sodium chloride infusion 10 30 (Canceled Entry - Provider: Orders Generic Provider - Comment: Automatically canceled at discontinue of medication order) at 125 mL/hr, Intravenous, CONTINUOUS, A dminister after the bolus., Starting 11/01/16 at 1030, Until 11/01/16 at 1508 PRN Medication Order 10/30/2016 10/31/2016 11/01/2016 HYDROmorphone (PF) (DILAUDID) injection 0.5 mg 0.5 mg, Intravenous, EVERY 15 MIN PRN, 3 doses, Starting 11/01/16 at 1029, Until 11/01/16 at 1508, moderate to severe pain documented in this encounter Care Teams Bobbin Washer Relationship Specialty Start Date End Date Justin Loya MD PCP - General Family Practice 02/19/11 [facility] [id number] [place] [id number] Aron Santiago MD MD Pain Clinic 11/29/13 [facility] [facility] [address] [place] [address] documented as of this encounter
--- OUTSIDE RECORDS SUMMARY | 2022-06-23 17:45 | XMS_ITS | Encounter Summary ---
:1990 Author Organization [facility] Address [address] [facility] [place] [address] Care Team Providers Name Role Phone Justin Loya MD Primary Care Provider Silas Santiago MD Unavailable Reason for Visit Reason Onset Date Comments Referral 12/15/2013 new referral, Dual:N europathy Encounter Details Date Type Department Care Team Description 12/15/2013 [facility] Referra l (new Pain Management Program, [facility] , [facility] Dual:Neuropathy) [address] [facility] [address] [place] [address] Social History Tobacco Use Types Packs/Day Years Used Date Smoking Tobacco: Never Smokeless Tobacco: Never Alcohol Use Standard Drinks/Week Comments No 0 (1 standard drink = 0.6 oz pure alcoho l) Sex Assigned at Date Recorded Not on file documented as of this encounter Miscellaneous Notes Telephone Encounter - Paddy Gotti - 12/16/2013 2:27 PM CDT Spoke with pt, she will call back to [facility]. Needs Dual:Neuropathy Telephone Encounter - Valentín Unger MD - 12/15/2013 9:08 AM CDT I would be happy with any provider to assist in Destiney's neuropathic pain management. Thank you Telephone Encounter - Paddy Gotti - 12/15/2013 9:[address] Unger, just wanted to let your know that Dr. Cueva and Dr. Mercer Are not seeing new pt for chronic pain management services. We can offer your pt an appointment with one of our other pain providers is that is agreeable with you. Thank you, Paddy with pain clinic Any questions please call [phone] documented in this encounter Plan of Treatment Not on filedocumented as of this encounter Visit Diagnoses Not on filedocumented in this encounter Care Teams Pr Specialist Relationship Specialty Start Date End Date Justin Loya MD PCP - General Family Practice 02/19/11 [facility] [address] [place] [phone] Silas Santiago MD MD Pain Clinic 11/29/13 [facility] [address] [place] [address] documented as of this encounter
--- OUTSIDE RECORDS SUMMARY | 2022-06-23 17:45 | XMS_ITS | Encounter Summary ---
:1990 Author Organization [place] Address [facility] [place] [address] Care Team Providers Name Role Phone Justin Loya MD Primary Care Provider Silas Santiago MD Unavailable Reason for Visit Reason Onset Date Comments Clinic Care Coordination - Follow-up 09/28/2014 Fol low-up from 09/25 attempt to reach patient. Reiterated contact information. Encounter Details Date Type Department Care Team Description 09/28/2014 Telephone Neurology Clinic Alem Wright, Clinic Care Coordination Avel ZAMORAN - Follow-up (Follow-up Building [phone] from 09/25 attempt to 1st Floor, Clinic 1[address] (Work) reach patient. [address] [place] [address] Reiterated contact [place], [place] (Fax) information. ) [phone] Social History Tobacco Use Types Packs/Day [...] on filedocumented in this encounter Care Teams Safety Sitter Relationship Specialty Start Date End Date Justin Loya MD PCP - General Family Practice 02/19/11 [facility] [address] [place] [phone] Silas Santiago MD MD Pain Clinic 11/29/13 [facility] [address] [place] [address] documented as of this encounter
--- OUTSIDE RECORDS SUMMARY | 2022-06-23 17:45 | XMS_ITS | Encounter Summary ---
:1990 Author Organization [place] Address [address] [facility] [place] [address] Care Team Providers Name Role Phone Justin Loya MD Primary Care Provider Silas Santiago MD Unavailable Reason for Visit Reason Comments OGB Encounter Details Date Type Department Care Team Description [facility]05[facility]2017 [facility] deep vein thrombosis (DVT) of non-extremity vein; [place] MD Excessive or frequent menstruation Dept [facility] [address] [place], [place] [address] [id number] [place] [address] [place] [address] (Wo rk) Social History Tobacco Use Types Packs/Day Years Used Date Smoking Tobacco: Never Smokeless Tobacco: Never Alcohol Use Standard Drinks/Week Comments No 0 (1 standard drink = 0.6 oz pure alcoho l) Sex Assigned at Date Recorded Not on file documented as of this encounter Last Filed Vital Signs Vital Sign Reading Time Taken Comments Blood Pressure 111/69 04/05/2017 5:00 PM CDT Pulse - - Temperature 37 ??C (98.6 ??F) 04/05/2017 1:25 PM CDT Respiratory Rate 18 04/05/2017 1:25 PM CDT Oxygen Saturation 99% 04/05/2017 5:15 PM CDT Inhaled Oxygen Concentration - - Weight - - Height - - Body Mass Index - - documented in this encounter Discharge Instructions Discharge InstructionsPeDiaz eason MD - 04/05/2017 5:17 PM CDT Please return to the ER if you have increasing vaginal bleeding, worsening lightheadedness, any fainting. Easily develop worsening chest pain or trouble breathing comeback to the ER so we can get a repeat scan of your chest to look for blood clots in your lungs. Now, continue taking your Xarelto as directed. Follow-up with the director cardiovascular in their office documented in this encounter Medications at Time [...] documented as of this encounter ED Notes Gely Ellis RN - 04/05/2017 2:05 PM CDT Refusing IV at this time; labs changed to lab collect Nancy Kelsey RN - 04/05/2017 1:28 PM CDT Pt started on Xarelto for blood clot and has taken 3 doses. She started menstrual period on Thursdayand bleeding is much heavier than usual. She is changing 1 pad per hour. She is feeling dizzy. Diaz Lopez MD - 04/05/2017 1:08 PM CDT History Chief Complaint: OGB RICHAR Cassidy is a 26 year old female who presents with dizziness and excessive bleeding. The patient was being observed for a growth in her brain when an MRI was performed. The patient had difficulties with the MRI contrast which resulted in a clot in the jugular vein. Her menstrual cycle started on Thursday (3 days ago). She was started on xarelto and took 3 doses for the clot on Thursday. She began to feel worse than usual dizziness and excessive bleeding hours after taking the xarelto. The patient experiences normal cramping and pain associated with her menstrual cycle. Allergies: Cefzil [Cefprozil] Ciprofloxacin Penicillin G Medications: Xarelto Roxicodone Reglan [place] Milk of magnesia Ultram lidoderm Valium tylenol Past Medical History: Back pain insomnia Past Surgical History: Decompression lumbar minimally Myringotomy Tonsillectomy [place] teeth Family History: The patient denies any relevant family medical history. Social History: The patient was accompanied to the ED by her . Smoking Status: never Smokeless Tobacco: never Alcohol Use: no Marital Status: Single [1] Review of Systems Genitourinary: Positive for menstrual problem and vaginal bleeding. Neurological: Positive for dizziness. All other systems reviewed and are negative. Physical Exam First Vitals: BP: 103/72 Heart Rate: 70 Temp: 98.6 ??F (37 ??C) Resp: 18 SpO2: 100 % Physical Exam Constitutional: Appears well-developed [...] motion. Neck supple. No tracheal deviation present. No JVD Cardiovascular: Normal rate, regular rhythm. No gallop. No friction rub. No murmur heard. Symmetric radial artery pulses Pulmonary/Chest: Effort normal. No stridor. No respiratory distress. No wheezes. No rales. No rhonchi . No tenderness. Abdominal: Soft. Bowel sounds normal. No distension. No mass. No tenderness. No rebound. No guarding. Musculoskeletal: Normal range of motion in shoulder and elbow. No LUE edema. No swelling of the biceps triceps are upper arm. Elbow is normal. No swelling of the forearm. No tenderness. No deformity no lower extremity edema. Lymph: No cervical adenopathy. Neurological: Alert and oriented to person, place, and time. Normal strength. CN II-VII intact. No sensory deficit. GCS eye subscore is 4. GCS verbal subscore is 5. GCS motor subscore is 6. Normal coordination Skin: Skin is warm and dry. No rash noted. No pallor. Normal capillary refill. Psychiatric: Normal mood. Normal affect. Emergency Department Course ECG: Indication: chest pain Completed at 1504. Read at 1505. Rate 76 bpm. [place] interval 158. QRS duration 80. QT/QTc 388/436. P-R-T axes 71 64 63. Normal sinus rhythm. Normal ECG. Imaging: Imaging results were discussed with the patient US Arm, left, venous: Decreased size of the internal jugular thrombus since the comparison study. As per radiology. CT Chest w/ IV contrast - PE protocol: 1. No pulmonary embolism demonstrated. 2. No thoracic aortic dissection or aneurysm. ??As per radiology. Laboratory: CBC: o/w WNL. (WBC 7.4, HGB 13.4, PLT 244) BMP: o/w WNL (Creatinine: 0.69, Glucose: 89) HCG qualitative: negative INR: 1.85 (H) Partial thromboplastin: collected 1421, 46 (H) ABO/Rh type and screen: A+ Emergency Department Course: Orders Placed This Encounter Procedures ??? Arm, left, venous US ??? CT Chest Pulmonary Embolism w Contrast ??? Basic metabolic panel ??? CBC with platelets differential ??? HCG qualitative ??? INR ??? Partial thromboplastin time ??? EKG 12-lead, tracing only ??? Peripheral IV catheter ??? ABO/Rh type and screen Nursing notes and vitals reviewed. I performed an exam of the patient as documented above. IV inserted. Medicine administered as documented above. Blood drawn. This was sent to the lab for further testing, results above. The patient was taken for a CT of the chest, see imaging results above. 1505 I rechecked the patient and discussed the results of her workup thus far. spoke with Dr. Lacy regarding this patient. Findings and plan explained to the Patient. Patient discharged home with instructions regarding supportive care, medications, and reasons to return. The importance of close follow-up was reviewed. I personally reviewed the laboratory and imaging results with the Patient and answered all related questions prior to discharge. Impression & Plan Medical Decision Making: this is a pleasant 26-year-old female who was diagnosed with a left IJ DVT 2 days ago in the ER and started on Xarelto for that. She returned to ER today out of concern for heavy vaginal bleeding. At this point the bleeding seems to be under control. She seem economically stable, hemoglobin is unchanged/slightly up from yesterday. We observed for several hours here in the ER. She wasn't having any excessive bleeding. Nor she having any signs of hemodynamic instability from blood loss. She was also having some chest pain here in the ER. We repeated workup for her thrombus and ultrasound actually shows that appears to be shrinking in size. Because of her chest pain we also obtained CT per chest rule out PE, and it is normal. Also showed no evidence for pneumonia, pneumothorax, aortic dissection, or other costs for chest pain. The patient was anxious about being on blood thinners. This may be contributing to her chest pain. I had a long discussion with the patient, her , and her father about the anticoagulants. We discussed the risks of the DVT in the chance that it could embolize to PE. We discussed the rationale for treatment with blood thinners. We also discussed the risks of being on blood thinners, including excess bleeding from menstruation, and the risk of life-threatening bleeding with any trauma. We alsodiscussed the options for anticoagulation; including Coumadin, which requires INR monitoring, careful dietary control, careful outpatient follow-up, but is reversible in the setting of life-threateningbleeding. We also discussed the novel oral anticoagulants; including Xarelto, which she is on. Theserequire less monitoring and dietary control, but there is no FDA approved reversal agent available yet. We discussed that end in a dire situation perhaps PCC could be of some benefit. Ultimately the patient does want to treat her DVT and will stay on Xarelto. She wanted to reduce the dose from 15 mg b.i.d. to 15 mg once per day. I advised against that is not likely going to be therapeutic at that dose. She will continue on the dose as prescribed . She is also very anxious about getting hyperglycemicworkup and wants to discuss with the special forces weapons sergeant/vascular specialist the duration of anticoagulation therapy. She would like to stop thinking about the couple weeks. Father was had 2 previous unprovoked thromboembolic events and is now on lifelong Coumadin, thinks she should stand Xarelto for life. We had a couple of long conversations. The patient is sure whom she supposed to follow up with. I contacted the on-call vascular surgeon and discussed the case with her again. The vascular surgeon is well aware of this patient having discussed her case on Thursday, have long phone call conversation with the patient last night as well. Vascular surgeon informs me that the patients already going to be contacted by the vascular specialty clinic on Thursday to set up her follow-up. Surgeon informs me that thepatient should've been aware of this plan. Nonetheless, she was able to reaffirm patient follow- up outpatient in the vascular specialty clinic. Diagnosis: ICD-10-CM 1. Acute deep vein thrombosis (DVT) of non-extremity vein I82.90 2. Excessive or frequent menstruation N92.0 Disposition: discharged to home Discharge Medications: Discharge Medication List as of 04/05/2017 5:32 PM I, Dario Saavedra, am serving as a scribe on 04/05/2017 at 1:40 PM to personally document services performed by Diaz Lopez, * based on my observations and the provider's statements to me. Dario Saavedra 04/05/2017 [facility] Diaz Lopez MD 04/06/17 1737 documented in this encounter Plan of Treatment Not on filedocumented as of this encounter Procedures Procedure Name Priority Date/Time Associated Comments Diagnosis CT CHEST PULMONARY STAT 04/05/2017 4:48 PM Res ults for this EMBOLISM W CONTRAST CDT procedur e are in the results section. US UPPER EXTREMITY STAT 04/05/2017 4:04 PM Res ults for this VENOUS DUPLEX LEFT CDT procedure are in the results section. EKG 12-LEAD, TRACING STAT 04/05/2017 3:04 PM R esults for this ONLY CDT procedure are i n the results section. CBC WITH PLATELETS & STAT 04/05/2017 2:21 PM R esults for this DIFFERENTIAL CDT procedure are i n the results section. INR STAT 04/05/2017 2:21 PM Results f or this CDT procedure are i n the results section. PARTIAL THROMBOPLASTIN STAT 04/05/2017 2:21 PM Results for this TIME CDT procedure are i n the results section. HCG QUALITATIVE STAT 04/05/2017 2:21 PM Result s for this CDT procedure are i n the results section. ABO/RH TYPE AND SCREEN STAT 04/05/2017 2:21 PM Results for this CDT procedure are i n the results section. BASIC METABOLIC PANEL STAT 04/05/2017 2:21 PM Results for this CDT procedure are i n the results section. documented in this encounter Results CT Chest Pulmonary Embolism w Contrast (04/05/2017 4:48 PM CDT) Anatomical Region Laterality Modality Chest, SUBRAD CT BODY, UMP CT CHEST Comp uted Tomography Specimen (Source) Anatomical Location Collection Method / Collectio n Time Received Time / Laterality Volume Impressions 04/05/2017 7:38 PM CDT IMPRESSION: 1. No pulmonary embolism demonstrated. 2. No thoracic aortic dissection or aneu rysm. ?? MOOK GUY MD Narrative 04/05/2017 7:[address] CHEST AND PULMONARY EMBOLISM ANGIOGRAM ??04/05/2017 4:48 PM HISTORY: Chest pain. COMPARISON: None. TECHNIQUE: Volumetric helical acquisitio n of CT images of the chest from the lung apices to the kidneys were acquired after the administration of 60mL Isovue-370 ??IV c ontrast. Radiation dose for this scan was reduced using automated ex posure control, adjustment of the mA and/or kV according to patient si ze, or iterative reconstruction technique. FINDINGS: Mildly suboptimal contrast guillermina us timing. There is no demonstrated pulmonary embolism. The hea rt is not enlarged. Thoracic aorta is unremarkable without evidence o f dissection or aneurysm. There is no pleural or pericardial effus ion. ??There is no pneumothorax. Adrenal glands are normal. Remainder of the visualized upper abdomen is unremarkable. Procedure Note Mook Guy MD - 04/05/2017Fo rmatting of this note might be different from the original. CT CHEST AND PULMONARY EMBOLISM ANGIOGRA M 04/05/2017 4:48 PM HISTORY: Chest pain. COMPARISON: None. TECHNIQUE: Volumetric helical acquisitio n of CT images of the chest from the lung apices to the kidneys were acquired after the administration of 60mL Isovue-370 IV con trast. Radiation dose for this scan was reduced using automated ex posure control, adjustment of the mA and/or kV according to patient si ze, or iterative reconstruction technique. FINDINGS: Mildly suboptimal contrast guillermina us timing. There is no demonstrated pulmonary embolism. The hea rt is not enlarged. Thoracic aorta is unremarkable without evidence o f dissection or aneurysm. There is no pleural or pericardial effus ion. There is no pneumothorax. Adrenal glands are normal. Remainder of the visualized upper abdomen is unremarkable. IMPRESSION: 1. No pulmonary embolism demonstrated. 2. No thoracic aortic dissection or aneu rysm. MOOK GUY MD Diaz Lopez MD IMG CT ORDERABLES Arm, left, venous US (04/05/2017 4:04 PM CDT) Anatomical Region Laterality Modality Extremity Ultrasound Specimen (Source) Anatomical Location Collection Method / Collectio n Time Received Time / Laterality Volume Impressions 04/05/2017 7:39 PM CDT IMPRESSION: Decreased size of the internal jugular thrombus since the comparison study. MOOK GUY MD Narrative 04/05/2017 7:39 PM CDT ULTRASOUND VENOUS UPPER EXTREMITY LEFT 04/05/2017 4:04 PM HISTORY: Left IJ clot yesterday, increas ing pain today, despite Xarelto. Evaluate clot size. COMPARISON: 04/04/2017. TECHNIQUE: Ultrasound lopez scale, Color Doppler flow, and spectral Doppler waveform analysis performed. FINDINGS: The internal jugular thrombus appears decreased in size compared to previous. The left, axillary , cephalic, basilic, brachial, radial, and ulnar veins demonstrate norm al compressibility. The left internal jugular, innominate, subclavian , and axillary veins have normal venous waveforms. Procedure Note Mook Guy MD - 04/05/2017Fo rmatting of this note might be different from the original. ULTRASOUND VENOUS UPPER EXTREMITY LEFT 4:04 PM HISTORY: Left IJ clot yesterday, increas ing pain today, despite Xarelto. Evaluate clot size. COMPARISON: 04/04/2017. TECHNIQUE: Ultrasound lopez scale, Color Doppler flow, and spectral Doppler waveform analysis performed. FINDINGS: The internal jugular thrombus appears decreased in size compared to previous. The left, axillary , cephalic, basilic, brachial, radial, and ulnar veins demonstrate norm al compressibility. The left internal jugular, innominate, subclavian , and axillary veins have normal venous waveforms. IMPRESSION: Decreased size of the director international al jugular thrombus since the comparison study. MOOK GUY MD Diaz Lopez MD IMG US ORDERABLES EKG 12-lead, tracing only (04/05/2017 3:04 PM CDT) [facility] Method Time Signature Interpretation ECG Click View RADIOLOGY Image link RESULTS to view waveform and result Specimen (Source) Anatomical Collection Method Collection Time Re ceived Time Location / / Volume Laterality 04/05/2017 3:04 PM CDT Diaz Lopez MD ECG ORDERABLES Performing Organization Address City/State/ZIP Code Phon e Number RADIOLOGY RESULTS ABO/Rh type and screen (04/05/2017 2:21 PM CDT) [facility] Method Time Signature ABO A 04/05/2017 [place] 3:12 PM CDT [facility] RH(D) Pos [facility] Antibody Neg 04/05/2017 [facility] Screen 3:12 PM CDT [facility] Test Valid [place] 04/05/2017 [facility] Only At [facility] 3:02 PM CDT [facility]PITAL Specimen 04/08/2017 04/05/2017 [facility] Expires 3:02 PM CDT [facility] Specimen Anatomical Collection Method Collection Time Receive d Time (Source) Location / / Volume Laterality Blood specimen 04/05/2017 2:21 PM 017 2:30 (specimen) CDT PM CDT Diaz Lopez MD LAB - BLOOD BANK TEST ORDER Performing Organization Address [facility] Phon e [facility] [address] [place] [address] [facility] [address], [place] [address], [facility] [phone] (ABNORMAL) Partial thromboplastin time (04/05/2017 2:21 PM CDT) P athologist Signature PTT 46 (H) 22 - 37 sec 04/05/[address] [facility] 2:53 PM [facility] Specimen Anatomical Collection Method Collection Time Receive d Time (Source) Location / / Volume Laterality Blood specimen 04/05/2017 2:21 PM 017 2:29 (specimen) CDT PM CDT Diaz Lopez MD LAB - BLOOD ORDERABLES Performing Organization Address [facility] Phon [facility] [address], [place] [address] [facility] [address], [place] [address], [facility] [phone] (ABNORMAL) INR (04/05/2017 2:21 PM CDT) P athologist Signature INR 1.85 (H) 0.86 - 1.14 04/05/2017 [place] 2:53 PM CDT [facility] Specimen Anatomical Collection Method Collection Time Receive d Time (Source) Location / / Volume Laterality Blood specimen 04/05/2017 2:21 PM 017 2:29 (specimen) CDT PM CDT Diaz Lopez MD LAB - BLOOD ORDERABLES Performing Organization Address [facility] Phon e Number M [facility] [address], [place] [address] [facility] [address], [place] [address], [facility] [phone] HCG qualitative (04/05/2017 2:21 PM CDT) [facility] Method Time Signature HCG Qualitative Negative NEG^Negati 04/05/2017 [place] Serum ve 3:02 PM [facility] Comment: This test is for screening purposes. ??R esults should be interpreted along with the clinical picture. ??Confirmation te sting is available if warranted by ordering [id number], HCG Quantitative Pregna ncy. Specimen Anatomical Collection Method Collection Time Receive d Time (Source) Location / / Volume Laterality Blood specimen 04/05/2017 2:21 PM 017 2:29 (specimen) CDT PM CDT Diaz Lopez MD LAB - BLOOD ORDERABLES Performing Organization Address City/[facility] Phon e Number M [facility] [address], [place] [address] [place] [address] [address], [place] [address] [facility] [phone] CBC with platelets differential (04/05/2017 2:21 PM CDT) [facility] Method Time Signature WBC 7.4 4.0 - 04/05/2017 [facility] 11.0 2:32 PM [facility] 10e9/L [facility] RBC Count 4.41 3.8 - 5.2 04/05/2017 [place] 10e12/L 2:32 PM [facility] Hemoglobin 13.4 11.7 - 04/05/2017 [facility] 15.7 g/dL 2:32 PM [facility] Hematocrit 39.3 35.0 - 04/05/2017 [facility] 47.0 % 2:32 PM [facility] MCV 89 78 - 100 04/05/2017 [place] fl 2:32 PM [facility] MCH 30.4 26.5 - 04/05/2017 [facility] 33.0 pg 2:32 PM [facility] MCHC 34.1 31.5 - 04/05/2017 [facility] 36.5 g/dL 2:32 PM [facility] RDW 11.5 10.0 - 04/05/2017 [facility] 15.0 % 2:32 PM [facility] Platelet Count 244 150 - 450 04/05/2017 [facility] 10e9/L 2:32 PM [facility] Diff Method Automated 04/05/2017 [facility] Method 2:32 PM [facility] % Neutrophils 73.4 % 04/05/2017 [facility] 2:32 PM [facility] % Lymphocytes 16.3 % 04/05/2017 [facility] 2:32 PM [facility] % Monocytes 7.5 % 04/05/2017 [facility] 2:32 PM [facility] % Eosinophils 1.6 % 04/05/2017 [facility] 2:32 PM [facility] % Basophils 0.9 % 04/05/2017 [facility] 2:32 PM [facility] % Immature 0.3 % 04/05/2017 [facility] Granulocytes 2:32 PM [facility] Nucleated RBCs 0 0 /100 04/05/2017 [facility] 2:32 PM [facility] Absolute 5.5 1.6 - 8.3 04/05/2017 [facility] Neutrophil 10e9/L 2:32 PM [facility] Absolute 1.2 0.8 - 5.3 04/05/2017 [facility] Lymphocytes 10e9/L 2:32 PM [facility] Absolute 0.6 0.0 - 1.3 04/05/2017 [facility] Monocytes 10e9/L 2:32 PM [facility] Absolute 0.1 0.0 - 0.7 04/05/2017 [facility] Eosinophils 10e9/L 2:32 PM [facility] Absolute 0.1 0.0 - 0.2 04/05/2017 [facility] Basophils 10e9/L 2:32 PM [facility] Abs Immature 0.0 0 - 0.4 04/05/2017 [facility] Granulocytes 10e9/L 2:32 PM [facility] Absolute 0.0 04/05/2017 [facility] Nucleated RBC 2:32 PM [facility] Specimen Anatomical Collection Method Collection Time Receive d Time (Source) Location / / Volume Laterality Blood specimen 04/05/2017 2:21 PM 017 2:29 (specimen) CDT PM CDT Diaz Lopez MD LAB - BLOOD ORDERABLES Performing Organization Address City/State/ZIP Code Phon e Number M [facility] [address], [place] [address] [facility] [address] [place] [address] [facility] [phone] Basic metabolic panel (04/05/2017 2:21 PM CDT) athologist Signature Sodium 141 133 - 144 04/05/2017 [place] mmol/L 3:12 PM [facility] Potassium 3.7 3.4 - 5.3 04/05/2017 [place] mmol/L 3:12 PM [facility] Chloride 106 94 - 109 04/05/2017 [place] mmol/L 3:12 PM [facility] Carbon Dioxide 26 20 - 32 04/05/2017 [place] mmol/L 3:12 PM [facility] Anion Gap 9 3 - 14 04/05/2017 [place] mmol/L 3:12 PM [facility] Glucose 89 70 - 99 04/05/2017 [place] mg/dL 3:12 PM [facility] Urea Nitrogen 12 7 - 30 04/05/2017 [place] mg/dL 3:12 PM [facility] Creatinine 0.69 0.52 - 04/05/2017 [place] 1.04 mg/dL 3:12 PM [facility] GFR Estimate >90 >60 04/05/2017 [facility] mL/min/1.7 3:[address] Comment: Non GFR Calc GFR Estimate If >90 >60 mL/min/1.7m2 04/05/2017 3:12 P [facility] Comment: GFR Calc Calcium 9.5 8.5 - 10.1 mg/dL 04/05/2017 3:12 PM [facility] Specimen Anatomical Collection Method Collection Time Receive d Time (Source) Location / / Volume Laterality Blood specimen 04/05/2017 2:21 PM 017 2:29 (specimen) CDT PM CDT Diaz Lopez MD LAB - BLOOD ORDERABLES Performing Organization Address City/State/ZIP Code Phon e Number M [facility] [address] [place] [address] [facility] [address], [place] [address] [facility] [phone] documented in this encounter Visit Diagnoses Diagnosis Acute deep vein thrombosis (DVT) of non- extremity vein Excessive or frequent menstruation documented in this encounter Administered Medications Inactive Administered Medications - up to 3 most recent administrations Medication Order MAR Action Action Date Dose Rate Site 0.9% sodium chloride BOLUS New Bag 04/05/2017 4:26 PM CDT 82 mLs Intravenous, 1,000 mL, ONCE, On 04/05/17 at 1626, For 1 dose iopamidol (ISOVUE-370) solution 500 mL Given 04/05/2017 4:26 PM CDT 60 mLs 500 mL, Intravenous, ONCE, On 04/05/17 at 1626, For 1 dose lidocaine (LMX4) kit Topical, EVERY 1 HOUR PRN, pain, with VA D insertion or accessing implanted port., Starting on 04/05/17 at 1340, Do NOT give if patient has a history of allergy to any local anesthetic or any loyda product. Apply 30 minutes prior to VAD insertion or port access. MAX Dose: 2.5 g (?? of 5 g t ube) lidocaine 1 % 1 mL 1 mL, Other, EVERY 1 HOUR PRN, mild pain with VAD insertion or accessing implanted port, Starting on 04/05/17 at 1340, Do NOT give if patient has a history of allergy to any local anesthetic or any loyda product. MAX dose 1 mL subcutaneous OR intradermal in divided doses. sodium chloride (PF) 0.9% PF flush 3 mL 3 mL, Intracatheter, EVERY 1 HOUR PRN, l ine flush, for peripheral IV flush post IV meds, Starting on 04/05/17 at 1340 sodium chloride (PF) 0.9% PF flush 3 mL 3 mL, Intracatheter, EVERY 8 HOURS, Firs t dose on 04/05/17 at 1342, And Q1H PRN, to lock peripheral IV dormant line. documented in this encounter Active and Recently Administered Medications Times are shown in CDT. Scheduled Medication Order 04/03/2017 04/04/2017 04/05/2017 0.9% sodium chloride BOLUS (COMPLETED) 1626 (New Bag - Provider: Janine Spear - Comment: bulk)1627 (Stopped - Provider: Janine Spear) Intravenous, 1,000 mL, ONCE, 04/05/17 at 1626, For 1 dose iopamidol (ISOVUE-370) solution 500 mL (COMPLETED) 1626 (Given - Provider: Janine Spear - Comment: bulk) 500 mL, Intravenous, ONCE, 04/05/17 at 1626, For 1 dose LORazepam (ATIVAN) injection 0.5 mg 1719 (Not Given - Provider: Gely Ellis RN - Reason: Patient/family refused) 0.5 mg, Intravenous, ONCE, 04/05/17 a t 1520, For 1 dose, For IV PUSH: Dilute with equal volume of NS. sodium chloride (PF) 0.9% PF flush 3 mL 1342 (Canceled Entry - Provider: Orders Generic Provider - Comment: Automatically canceled at discontinue of medication order) 3 mL, Intracatheter, EVERY 8 HOURS, Firs t dose on 04/05/17 at 1342, And Q1H PRN, to lock peripheral IV dormant line. PRN Medication Order 04/03/2017 04/04/2017 04/05/2017 lidocaine (LMX4) kit Topical, EVERY 1 HOUR PRN, pain, with VA D insertion or accessing implanted port., Starting 04/05/17 at 1340, Do NOT give if patient has a history of allergy to any local anesthetic or any loyda pro duct. Apply 30 minutes prior to VAD inse rtion or port access. MAX Dose: 2.5 g (?? of 5 g tube) lidocaine 1 % 1 mL 1 mL, Other, EVERY 1 HOUR PRN, mild pain with VAD insertion or accessing implanted port, Starting 04/05/17 at 1340, Do NOT give if patient has a history of allergy to any local anesthetic or any princess ne product. MAX dose 1 mL subcutaneous OR intradermal in divide d doses. sodium chloride (PF) 0.9% PF flush 3 mL 3 mL, Intracatheter, EVERY 1 HOUR PRN, l ine flush, for peripheral IV flush post IV meds, Starting 04/05/17 at 1340 documented in this encounter Care Teams Cashier Self Service [employer] Relationship Specialty Start Date End Date Justin Loya MD PCP - General Family Practice 02/19/11 [facility] [id number] [place] [phone] Silas Santiago MD MD Pain Clinic 11/29/13 [facility] [address] [place] [address] documented as of this encounter
--- OUTSIDE RECORDS SUMMARY | 2022-06-23 17:45 | XMS_ITS | Encounter Summary ---
:1990 Author Organization [place] Address [facility] [place] [address] Care Team Providers Name Role Phone Justin Loya MD Primary Care Provider Silas Santiago MD Unavailable Reason for Visit Reason Onset Date Comments Results 12/06/2013 Encounter Details Date Type Department Care Team Description 12/06/2013 Telephone Neurology Clinic Raya Vee RN Results [facility] 1st Floor, Clinic [address] [place] [address] [phone] Social History Tobacco Use Types Packs/Day Years Used Date Smoking Tobacco: Never Smokeless Tobacco: Never Alcohol Use Standard Drinks/Week Comments No 0 (1 standard drink = 0.6 oz pure alcoho l) Sex Assigned at Date Recorded Not on file documented as of this encounter Miscellaneous Notes Telephone Encounter - Raya Vee RN - 12/06/2013 10:50 AM CDT Called patient and relayed that skin biopsy results should be available next week, 12-12-13. Lab testing sent to [place] won't be available before December 18. Patient verbalized understanding. Telephone Encounter - Valentín Unger MD - 12/06/2013 10:35 AM CDT I contacted Dr. Venegas's lab for the skin biopsy, and they will speak to Dr. Cueva to expedite the reading of the biopsy this week. I would tell Destiney that we will have results of skin biopsy by Thursday next week. As for the blood test sent to [facility], I cannot expedite this, and it is not expected earlier than 12/18/2013. Please let her know. Thanks much Telephone Encounter - Raya Vee I RN - 12/06/2013 10:10 AM CDT Patient called wanting results of skin biopsy. Message sent to Dr. Unger. documented in this encounter Plan of Treatment Not on filedocumented as of this encounter Visit Diagnoses Not on filedocumented in this encounter Care Teams Marketing Analytics Manager Relationship Specialty Start Date End Date Justin Loya MD PCP - General Family Practice 02/19/11 [facility] [address] [place] [phone] Silas Santiago MD MD Pain Clinic 11/29/13 [facility] [address] [place] [address] documented as of this encounter
--- OUTSIDE RECORDS SUMMARY | 2022-06-23 17:45 | XMS_ITS | Encounter Summary ---
:1990 Author Organization [place] Address [facility] [address] Care Team Providers Name Role Phone Justin Loya MD Primary Care Provider Silas Santiago MD Unavailable Reason for Visit Reason Onset Date Comments *-*INCOMING RECORDS*-* 12/14/2013 Received images f [facility] Neurology Encounter Details Date Type Department Care Team Description 12/14/2013 PRE VISIT Neurology Clinic Marita Ivey, *-*INCOMING RECORDS*-* Avel KELLEY (Receiv ed images from [facility] of 1st Floor, Clinic 1A Neurology) [address] [place] [phone] Social History Tobacco Use Types Packs/Day Years Used Date Smoking Tobacco: Never Smokeless Tobacco: Never Alcohol Use Standard Drinks/Week Comments No 0 (1 standard drink = 0.6 oz pure alcoho l) Sex Assigned at Date Recorded Not on file documented as of this encounter Miscellaneous Notes Telephone Encounter - Marita Ivey CMA - 12/14/2013 10:21 AM CDT Chief Complaint Patient presents with ??? *-*INCOMING RECORDS*-* Received images from [facility] Neurology Put image in Raya Fiields folder. Marita Ivey MA documented in this encounter Plan of Treatment Not on filedocumented as of this encounter Visit Diagnoses Not on filedocumented in this encounter Care Teams Post Anesthesia Room Nurse Relationship Specialty Start Date End Date Justin Loya MD PCP - General Family Practice 02/19/11 [facility] [address] [place] [phone] Silas Santiago MD MD Pain Clinic 11/29/13 [facility] [address] [place] [address] documented as of this encounter
--- OUTSIDE RECORDS SUMMARY | 2022-06-23 17:45 | XMS_ITS | Encounter Summary ---
:1990 Author Organization [facility] Address [address] [facility] [place] [address] Care Team Providers Name Role Phone Justin Loya MD Primary Care Provider Silas Santiago MD Unavailable Reason for Visit Reason Comments Arm Pain Encounter Details Date Type Department Care Team Description 04/03/2017 - Emergency [facility] Elisa Lema, In ternal jugular vein thrombosis, left (H); 04/04/2017 [facility] Emergency Pain of left upper arm Dept [facility] [address] [place], [place] [address] [facility] [id number] [place], [place] [id number] (Wo rk) Social History Tobacco Use Types Packs/Day Years Used Date Smoking Tobacco: Never Smokeless Tobacco: Never Alcohol Use Standard Drinks/Week Comments No 0 (1 standard drink = 0.6 oz pure alcoho l) Sex Assigned at Date Recorded Not on file documented as of this encounter Last Filed Vital Signs Vital Sign Reading Time Taken Comments Blood Pressure 125/67 04/04/2017 1:07 AM CDT Pulse - - Temperature 36.6 ??C (97.8 ??F) 04/03/2017 10:48 PM CDT Respiratory Rate 16 04/04/2017 2:57 AM CDT Oxygen Saturation 98% 04/04/2017 2:57 AM CDT Inhaled Oxygen Concentration - - Weight - - Height - - Body Mass Index - - documented in this encounter Discharge Instructions Discharge InstructionsElisa Lema MD - 04/04/2017 2:43 AM CDT Please return to the ED if you have active chest pain, shortness of breath, nausea, sweatiness, or other acute changes. Please follow up with your PCP in the next 2-3 days. Take xeralto 15 mg twice daily for 21 days then your doctor will lower your dose to 20 mg daily. May use tylenol for pain. Oxycodone for breakthrough pain but do not drink drive or operate heavy machinery. Discharge Instructions Extremity Injury You were seen today for an injury to an extremity (arm, hand, leg, or foot). You may have a bruise, strain, or fracture (broken bone). Generally, every Emergency Department visit should have a follow-up clinic visit with either a primary or a specialty clinic/provider. Please follow-up as instructed by your emergency provider today. Return to the Emergency Department right away if: ??? Your pain seems to change or get worse or there is pain in a new area that wasn???t evaluated today. ??? Your extremity becomes pale, cool, blue, or numb or tingling past the injury. ??? You have more drainage, redness or pain in the area of the cut or abrasion. ??? You have pain that you cannot control with the medicine recommended or prescribed here, or you have pain that seems too much for your injury. ??? Your child (who is injured) will not stop crying or is much more fussy than normal. ??? You have new symptoms or anything that worries you. What to Expect: ??? Your swelling and pain may be worse the day after your injury, but should not be severe and should start getting better after that. You should not have new symptoms and your pain should not get worse. ??? You may start to get a bruise over the injured area or below the injured area (bruising can follow gravity). ??? Your movement and strength should get better with time. ??? Some injuries may not show up until after you have left the Emergency Department so it is important to follow-up as directed. ??? Your injury may prevent you from working. Follow-up with your regular provider to get a work release note. ??? Pain medications or your injury may make it unsafe to drive or operate machinery. Home Care: ??? RICE: Rest, Ice, Compression, Elevation o Rest: Rest your injured area for at least 1-2 days. After that you may start using your extremity again as long as there is not too much pain. o Ice: Apply ice your injured area for 15 minutes at a time, at least 3 times a day. Use a cloth between the ice bag and your skin to prevent frostbite. Do not sleep with an ice pack or heating pad on,since this can cause garcia or skin injury. o Compression: You may use an elastic bandage (Jarrod?? Wrap) if it makes you more comfortable. Wrap itjust tight enough to provide light compression, like a new pair of socks feels. Loosen the bandage if you have swelling past the bandage. o Elevation: Raise the injured area above the level of your heart as much as possible in the first 1-2 days. ??? Use Tylenol?? (acetaminophen), Motrin (ibuprofen), or Advil?? (ibuprofen) for your pain unless you have an allergy or are told not to use these medications by your provider. Take the medications asinstructed on the package. Tylenol?? (acetaminophen) is in many prescription medicines and non-prescription medicines--check all of your medicines to be sure you aren???t taking more than 3000 mg per day. ??? Please follow any other instructions that were discussed with you by your provider. Stretching/Exercises: You may have been provided with instructions for stretching or exercises. If your injury was to your arm or shoulder and your provider put you in a sling or an immobilizer, it is important that you take off your immobilizer within 3 days and stretch/move your shoulder, unless your provider specifically tells you to not move your shoulder. This is to prevent further injury such as a ???frozen shoulder?? . If you were given a prescription for [...] if there is anything that worries you. Opioid Medication Information You have been given a prescription for an opioid (narcotic) pain medicine and/or have received a pain medicine while here in the Emergency Department. These medicines can make you drowsy or impaired. You must not drive, operate dangerous equipment, or engage in any other dangerous activities while taking these medications. If you drive while taking these medications, you could be arrested for drivingunder the influence (DUI). Do not drink any alcohol while you [...] not replace any lost or stolen medicine. If you do not finish your medication, please dispose of the remaining medication as recommended by your pharmacist. The [place] [employer] has additional information on medication disposal: https://www .manager [email or web address].[email or web address].[email or web address]/[email or web address]/snmuisim-sxsvuvkj-[email or web address]. Many prescription pain medications contain Tylenol?? (acetaminophen), including Vicodin??, Tylenol #3??, [place]??, Lortab??, and Percocet??. You should not take [...] can be used to keep you regular. documented in this encounter Medications at Time [...] moderate pain documented as of this encounter Progress Notes Basil Cuelalr MD - 04/04/2017 3:00 AM CDT Spoke with ER physician overnight at [facility] and with patient over the phone this morning. Vascular surgery called regarding new finding of Acute left IJ non-occlusive DVT. Patient presented to ER with pain in left arm present since MRI last week. No arm swelling . Patient indicates father has had multiple blood clots in the past including at least one episode of PE. Incidental finding of Left IJ DVT on ultrasound from 04/03, that wasn't present on US from 03/29. Reviewed case with attending vascular surgeon Dr. Cuellar. This finding is not associated with patient's symptoms as no dvt found in upper extremity veins. Reassurance given to patient over the phone that no surgery was indicated at this time. Encouraged patient to fill her perscription for Eliquis and to start today as she has not done so yet. Recommend continued anticoagulation and follow up with Vascular Medicine Dr. Manish Forrester for further anticoagualtion management and surveillance as needed. Patient would likely benefit from hematology workup as well given family history, unprovoked status and unusual presentation in a young female. No vascular surgery intervention. Please call with future questions. Elva Lacy MD Vascular Surgery fellow Pager [phone] I have discussed the case with Dr. Lacy's and reviewed the imaging. We did not examine the patient. Unprovoked left IJ DVT. Recommend anticoagulation and follow up with Vascular medicine. Basil Cuellar M.D. documented in this encounter ED Notes Juliana Prater RN - 04/03/2017 10:46 PM CDT MRI last Thursday with saline and contrast dye injected. States it was painful with injection, with an instant hot burn and fulness in my arm. Seen here Thursday with a normal ultrasound of the arm. Also saw primary MD and offered steroids. Continues to have severe pain in her arm which is migratingup into her neck as a deep aching. Elisa Lema MD - 04/03/2017 10:41 PM CDT History Chief Complaint: Arm Pain HPI Destiney Cassidy is a 26 year old female, with a history of a brain mass, who presents with her significant other to the emergency department for evaluation of left arm pain. The patient reports that approximately one week ago, the patient was undergoing MRI imaging and was injected with saline and contrast dye. The patient reports that initially after being injected, she began to experience an instant hot burning and fullness in my arm. The patient continued to experience the pain in her arm and was seen here in the emergency department the following day, which revealed a normal ultrasound of the arm.The patient also presented to her primary care physician yesterday, in which an x- ray was performed and she was prescribed prednisolone. She reports currently the pain has migrated up into her neck causing a deep aching. The patient denies experiencing a rash, fever, vomiting, or diarrhea. Tonote, the patient has been taking ibuprofen for pain and her last dose was 2 tablets around 1700 tonight. Allergies: Cefzil Ciprofloxacin Penicillin G Medications: Reglan [place] Milk of magnesia Ultram Neurontin Lidoderm Valium Tylenol Past Medical History: Back Pain Insomnia Brain Mass Past Surgical History: Decompression lumbar minimally invasive one level Myringotomy, insert tube, bilateral, combined Tonsillectomy [place] teeth Family History: The patient denies any relevant family medical history. Social History: The patient was accompanied to the ED by significant other. Smoking Status: No Smokeless Tobacco: No Alcohol Use: No Marital Status: Single [1] Review of Systems Constitutional: Negative for fever. Gastrointestinal: Negative for diarrhea and vomiting. Musculoskeletal: Positive for neck pain. Left arm pain Skin: Negative for rash. All other systems reviewed and are negative. Physical Exam Vitals: Patient Vitals for the past 24 hrs: BP Temp Temp src Heart Rate Resp SpO2 04/03/17 2248 113/68 97.8 ??F (36.6 ??C) Oral 76 16 99 % Physical Exam Physical Exam General: Resting on the bed. Head: No obvious trauma to head. Ears, Nose, Throat: External ears normal. Eyes: Conjunctivae and EOM are normal. CV: Regular rate and rhythm. No murmurs. Respiratory: Effort normal and breath sounds normal. No wheezing or crackles. Gastrointestinal: Soft. No distension. There is no tenderness. Musculoskeletal: Tenderness throughout the left arm. Full range of all joints. Soft compartments. 2+radial pulses. Sensation intact. Ecchymosis in AC fossa. 5/5 motor strength. Neuro: Alert. Moving all extremities appropriately. Normal speech. Skin: Skin is warm and dry. No rash noted. Emergency Department Course Imaging: Radiology findings were communicated with the patient and significant other who voiced understandingof the findings. Arm, left, venous US: IMPRESSION: Nonocclusive thrombus in the left internal jugular vein. Reading per radiology. Laboratory: Laboratory findings were communicated with the patient and significant other who voiced understanding of the findings. CBC: AWNL (WBC 6.4, HGB 12.7, PLT 217) BMP: AWNL (Creatinine 0.69) CK Total: 75 INR 1.16 LFT WNL Interventions: Medications - No data to display Emergency Department Course: Nursing notes and vitals reviewed. I performed an exam of the patient as documented above. IV was inserted and blood was drawn for laboratory testing, results above. The patient was sent for a Arm, left, venous US while in the emergency department, results [...] the laboratory results with the Patient and significant other and answered allrelated questions prior to discharge. Impression & Plan Medical Decision Making: Destiney Cassidy is a 26 year old female presenting with left arm pain following an infusion. Vital signs were reviewed and unremarkable. Right hand dominant. Broad differentials pursued including, but not limited to, infection, blood clot, thrombophlebitis, myositis, compartment syndrome, etcetera. There is no history of trauma. She has soft compartments throughout her arm. She is neurovascular intact. There is no evidence of acute fracture or dislocation. There is no evidence of a joint problem at this point. No signs of compartment syndrome. She has full range of motion of all of her joints. Ultrasound was obtained showing a left IJ thrombosis. CK obtained wnl not concerning for myositis. CBC andBMP obtained wnl. There is no evidence of cellulitis on examination. No signs of nec fas. Unclear ifIJ thrombosis is etiology Of pain but at this point most likely diagnosis. No other acute etiologiesidentified. Pain was after injection no other trauma. Discussed US results with vascular, plan to anti coagulate for 3 months and follow up with vascular. Dr Rodriguez will follow up images and recheck patient in 1-2 days. She is not hypoxic, no chest pain, no tachycardia, no symptoms to suggest PE. Lengthy risks/benefits about anti coagulation discussed with patient and family. Decided on xeralto. I en couraged her to take this medicine going forward. I encouraged her to have her closely follow up with her primary care doctor next week. Patient is discharged in stable condition. Diagnosis: ICD-10-CM 1. Internal jugular vein thrombosis, left (H) I82.C12 2. Pain of left upper arm M79.622 Disposition: Discharged. Discharge Medications: New Prescriptions OXYCODONE (ROXICODONE) 5 MG IR TABLET Take 1 tablet (5 mg) by mouth every 6 hours as needed for moderate to severe pain RIVAROXABAN ANTICOAGULANT (XARELTO) 15 MG TABS TABLET Take 1 tablet (15 mg) by mouth 2 times daily (with meals) for 21 days Scribe Disclosure: Alicia Whipple, am serving as a scribe at 11:48 PM on 04/03/2017 to document services personally performed by Elisa Lema MD, based on my observations and the provider's statements to me. 04/03/2017 [facility] EMERGENCY DEPARTMENT Elisa Lema MD 04/04/17 0250 documented in this encounter Plan of Treatment Not on filedocumented as of this encounter Procedures Procedure Name Priority Date/Time Associated Comments Diagnosis INR STAT 04/04/2017 1:25 AM Results f or this CDT procedure are i n the results section. PARTIAL THROMBOPLASTIN STAT 04/04/2017 1:25 AM Results for this TIME CDT procedure are i n the results section. CBC WITH PLATELETS & STAT 04/04/2017 1:15 AM R esults for this DIFFERENTIAL CDT procedure are i n the results section. HEPATIC FUNCTION PANEL STAT 04/04/2017 1:15 AM Results for this CDT procedure are i n the results section. CK TOTAL STAT 04/04/2017 1:15 AM Results f or this CDT procedure are i n the results section. BASIC METABOLIC PANEL STAT 04/04/2017 1:15 AM Results for this CDT procedure are i n the results section. US UPPER EXTREMITY STAT 04/04/2017 12:52 Resul ts for this VENOUS DUPLEX LEFT AM CDT procedure are in the results section. documented in this encounter Results PTT (04/04/2017 1:25 AM CDT) athologist Signature PTT 34 22 - 37 sec 04/04/2017 [facility] 2:03 AM T HOSPITAL Specimen Anatomical Collection Method Collection Time Receive d Time (Source) Location / / Volume Laterality Blood specimen 04/04/2017 1:25 AM 017 1:29 (specimen) CDT AM CDT Elisa Lema MD LAB - BLOOD ORDERABLES Performing Organization Address City/[facility]/ZIP Code Phon e Number [facility] [address] [place], [place] [address] [place] [address] [address] [place] [address], [facility] [phone] (ABNORMAL) INR (04/04/2017 1:25 AM CDT) athologist Signature INR 1.16 (H) 0.86 - 1.14 04/04/2017 [place] 2:03 AM T [facility] Specimen Anatomical Collection Method Collection Time Receive d Time (Source) Location / / Volume Laterality Blood specimen 04/04/2017 1:25 AM 017 1:29 (specimen) CDT AM CDT Elisa Lema MD LAB - BLOOD ORDERABLES Performing Organization Address City/[facility]/ZIP [facility] Phon e Number [facility] [address] [place] [place], [place] [address] [facility] [address] [address], [facility] [phone] CK total (04/04/2017 1:15 AM CDT) P athologist Signature CK Total 75 30 - 225 04/04/2017 [facility] U/L 1:49 AM [facility] Specimen Anatomical Collection Method Collection Time Receive d Time (Source) Location / / Volume Laterality Blood specimen 04/04/2017 1:15 AM 017 1:28 (specimen) CDT AM CDT Elisa Lema MD LAB - BLOOD ORDERABLES Performing Organization Address City/State/ZIP Code Phon e Number M [facility] [address], [place] [address] [facility] [address] [place], [place] [address] [facility] [phone] CBC with platelets differential (04/04/2017 1:15 AM CDT) Patholo gist Method Time Signature WBC 6.4 4.0 - 04/04/2017 [facility] 11.0 1:33 AM [facility] 10e9/L [facility] RBC Count 4.22 3.8 - 5.2 04/04/2017 [facility] 10e12/L 1:33 AM [facility] Hemoglobin 12.7 11.7 - 04/04/2017 [facility] 15.7 g/dL 1:33 AM [facility] Hematocrit 38.0 35.0 - 04/04/2017 [facility] 47.0 % 1:33 AM [facility] MCV 90 78 - 100 04/04/2017 [facility] fl 1:33 AM [facility] MCH 30.1 26.5 - 04/04/2017 [facility] 33.0 pg 1:33 AM [facility] MCHC 33.4 31.5 - 04/04/2017 [facility] 36.5 g/dL 1:33 AM [facility] RDW 11.7 10.0 - 04/04/2017 [facility] 15.0 % 1:33 AM [facility] Platelet Count 217 150 - 450 04/04/2017 [facility] 10e9/L 1:33 AM [facility] Diff Method Automated 04/04/2017 [facility] Method 1:33 AM [facility] % Neutrophils 49.2 % 04/04/2017 [facility] 1:33 AM [facility] % Lymphocytes 35.0 % 04/04/2017 [facility] 1:33 AM [facility] % Monocytes 10.3 % 04/04/2017 [facility] 1:33 AM [facility] % Eosinophils 3.9 % 04/04/2017 [facility] 1:33 AM [facility] % Basophils 1.3 % 04/04/2017 [facility] 1:33 AM [facility] % Immature 0.3 % 04/04/2017 [facility] Granulocytes 1:33 AM [facility] Nucleated RBCs 0 0 /100 04/04/2017 [facility] 1:33 AM [facility] Absolute 3.1 1.6 - 8.3 04/04/2017 [facility] Neutrophil 10e9/L 1:33 AM [facility] Absolute 2.2 0.8 - 5.3 04/04/2017 [facility] Lymphocytes 10e9/L 1:33 AM [facility] Absolute 0.7 0.0 - 1.3 04/04/2017 [facility] Monocytes 10e9/L 1:33 AM [facility] Absolute 0.3 0.0 - 0.7 04/04/2017 [place] Eosinophils 10e9/L 1:33 AM [facility] Absolute 0.1 0.0 - 0.2 04/04/2017 [place] Basophils 10e9/L 1:33 AM [facility] Abs Immature 0.0 0 - 0.4 04/04/2017 [facility] Granulocytes 10e9/L 1:33 AM [facility] Absolute 0.0 04/04/2017 [place] Nucleated RBC 1:33 AM [facility] Specimen Anatomical Collection Method Collection Time Receive d Time (Source) Location / / Volume Laterality Blood specimen 04/04/2017 1:15 AM 017 1:28 (specimen) CDT [facility] Elisa Lema MD LAB - BLOOD ORDERABLES Performing Organization Address City/State/ZIP Code Phon e Number M [facility] [address] [place] [address] [facility] [address] [phone] Basic metabolic panel (04/04/2017 1:15 AM CDT) P athologist Signature Sodium 141 133 - 144 04/04/2017 [place] mmol/L 1:49 AM [facility] Potassium 3.5 3.4 - 5.3 04/04/2017 [place] mmol/L 1:49 AM [facility] Chloride 108 94 - 109 04/04/2017 [place] mmol/L 1:49 AM [facility] Carbon Dioxide 28 20 - 32 04/04/2017 [place] mmol/L 1:49 AM [facility] Anion Gap 5 3 - 14 04/04/2017 [place] mmol/L 1:49 AM [facility] Glucose 87 70 - 99 04/04/2017 [place] mg/dL 1:49 AM [facility] Urea Nitrogen 16 7 - 30 04/04/2017 [place] mg/dL 1:49 AM [facility] Creatinine 0.69 0.52 - 04/04/2017 [place] 1.04 mg/dL 1:49 AM [facility] GFR Estimate >90 >60 04/04/2017 [place] mL/min/1.7 1:[address] Comment: Non GFR Calc GFR Estimate If >90 >60 mL/min/1.7m2 04/04/2017 1:49 A [facility] Comment: GFR Calc Calcium 8.7 8.5 - 10.1 mg/dL 04/04/2017 1:49 AM [facility] Specimen Anatomical Collection Method Collection Time Receive d Time (Source) Location / / Volume Laterality Blood specimen 04/04/2017 1:15 AM 017 1:28 (specimen) CDT AM T Elisa Lema MD LAB - BLOOD ORDERABLES Performing Organization Address City/State/ZIP Code Phon e Number M [facility] [address] [place], [place] [address] [facility] [address] [place], [place] [address], [facility] [phone] Hepatic panel (04/04/2017 1:15 AM CDT) athologist Signature Bilirubin Direct 0.2 0.0 - 0.2 04/04/2017 [place] mg/dL 1:49 AM [facility] Bilirubin Total 1.0 0.2 - 1.3 04/04/2017 [place] mg/dL 1:49 AM [facility] Albumin 3.7 3.4 - 5.0 04/04/2017 [place] g/dL 1:49 AM [facility] Protein Total 6.9 6.8 - 8.8 04/04/2017 [place] g/dL 1:49 AM [facility] Alkaline 45 40 - 150 04/04/2017 [place] Phosphatase U/L 1:49 AM [facility] ALT 18 0 - 50 U/L 04/04/2017 [place] 1:49 AM [facility] AST 15 0 - 45 U/L 04/04/2017 [place] 1:49 AM [facility] Specimen Anatomical Collection Method Collection Time Receive d Time (Source) Location / / Volume Laterality Blood specimen 04/04/2017 1:15 AM 017 1:28 (specimen) CDT AM CDT Elisa Lema MD LAB - BLOOD ORDERABLES Performing Organization Address City/State/ZIP Code Phon e Number [place] [address] [phone] Arm, left, venous US (04/04/2017 12:52 AM CDT) Anatomical Region Laterality Modality Extremity Ultrasound Specimen (Source) Anatomical Location Collection Method / Collectio n Time Received Time / Laterality Volume Impressions 04/04/2017 4:42 AM CDT IMPRESSION: Nonocclusive thrombus in the left internal jugular vein. VAHID DOAN MD Narrative 04/04/2017 4:42 AM CDT US UPPER EXTREMITY VENOUS DUPLEX LEFT ??04/04/2017 12:52 AM HISTORY: Left arm pain post contrast inj ection. COMPARISON: None. FINDINGS: Pemberton-scale, color and Doppler spectral analysis ultrasound was performed of the left arm. Compressi on and augmentation imaging was performed. There is nonocclusive thrombus in the di stal left internal jugular vein near the clavicle. No other venous thrombus in the left arm. Procedure Note Vahid Doan MD - 04/04/2017Form atting of this note might be different from the original. US UPPER EXTREMITY VENOUS DUPLEX LEFT 12:52 AM HISTORY: Left arm pain post contrast inj ection. COMPARISON: None. FINDINGS: Pemberton-scale, color and Doppler spectral analysis ultrasound was performed of the left arm. Compressi on and augmentation imaging was performed. There is nonocclusive thrombus in the di stal left internal jugular vein near the clavicle. No other venous thrombus in the left arm. IMPRESSION: Nonocclusive thrombus in the left internal jugular vein. VAHID DOAN MD Elisa Lema MD IMG US ORDERABLES documented in this encounter Visit Diagnoses Diagnosis Internal jugular vein thrombosis, left ( H) Pain of left upper arm Pain in limb documented in this encounter Care Teams Panel Maker Relationship Specialty Start Date End Date Justin Loya MD PCP - General Family Practice 02/19/[address] [facility] [id number] [place] [place] [phone] Silas Santiago MD MD Pain Clinic 11/29/13 [facility] [address] [place] [address] documented as of this encounter
--- OUTSIDE RECORDS SUMMARY | 2022-06-23 17:45 | XMS_ITS | Encounter Summary ---
:1990 Author Organization [facility] Address [address] [place] [address] Care Team Providers Name Role Phone Justin Loya MD Primary Care Provider Silas Santiago MD Unavailable Reason for Visit Reason Comments Arm Pain Encounter Details Date Type Department Care Team Description 03/29/2017 Emergency [facility] Lisy Whelan Pa in of left upper arm; [facility] Emergency Dep t Contrast media adverse reaction, initial encounter [address] [place] [address] [phone] (Wo rk) Social History Tobacco Use Types Packs/Day Years Used Date Smoking Tobacco: Never Smokeless Tobacco: Never Alcohol Use Standard Drinks/Week Comments No 0 (1 standard drink = 0.6 oz pure alcoho l) Sex Assigned at Date Recorded Not on file documented as of this encounter Last Filed Vital Signs Vital Sign Reading Time Taken Comments Blood Pressure 121/74 03/29/2017 7:48 AM CDT Pulse 95 03/29/2017 7:48 AM CDT Temperature 36.8 ??C (98.2 ??F) 03/29/2017 7:48 AM CDT Respiratory Rate 18 03/29/2017 7:48 AM CDT Oxygen Saturation 100% 03/29/2017 7:48 AM CDT Inhaled Oxygen Concentration - - Weight 52.6 kg (116 lb) 03/29/2017 7:48 AM CDT Height 170.2 cm (5' 7) 03/29/2017 7:48 AM CDT Body Mass Index 18.17 03/29/2017 7:48 AM CDT documented in this encounter Discharge Instructions Discharge InstructionsLisy Whelan MD - 03/29/2017 11:07 AM CDT Please followup with MRI team. No sign of blood clot or infection at this time. Copies of labs,. For itching, use benadryl as needed. Can also try icing the area. AttachmentsThe following attachments cannot be sent through Care Everywhere.DRUG REACTION, OTHER (OCCITAN)documented in this encounter Medications at Time of [...] documented as of this encounter ED Notes Thania Kyle RN - 03/29/2017 11:17 AM CDT Discharge instructions gone over with pt, verbalized understanding. Discharged home with plan for follow up and no new prescriptions at this time. Will cont to monitor. Thania Kyle RN - 03/29/2017 10:15 AM CDT Pt resting on cart. Denies complaints at this time. Offered comfort cares at this time. No acute distress noted. Will cont to monitor. Thania Kyle RN - 03/29/2017 9:15 AM CDT Agree with triage note. No acute distress noted at this time. CMS check good. No redness or swellingat site. Will cont to monitor. Maritza Mccollum RN - 03/29/2017 7:48 AM CDT ABCs intact. Pt c/o L arm pain. Pt had a MRI yesterday with contrast, with she gets every few years.Pt c/o L arm feeling hot when injecting contrast. Pt c/o L arm pain and tingling today. Lisy Whelan MD - 03/29/2017 7:45 AM CDT History Chief Complaint: Arm Pain HPI Destiney Cassidy is a 26 year old female who presents to the ED for evaluation of left arm pain. Thepatient reports she underwent MRI yesterday at [facility], and states when the contrast dye was injected she felt a burning sensation down her left arm. 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 Upon evaluation in the ED, she notes increased pain radiating all the way down her arm, and additionally endorses tinging in her left first three fingers. Denies any fever or chills. Allergies: Cefzil - swelling in feet and hands Ciprofloxacin Penicillin - swelling in feet and hands Medications: Reglan [place] Magnesium hydroxide Ultram Neurontin Lidoderm patch Valium Tylenol Past Medical History: Low back pain Insomnia Past Surgical History: Decompression lumbar minimally invasive one level - 02/19/2011 Myringotomy, insert tube bilateral, combined Tonsillectomy [place] teeth Family History: History reviewed. No pertinent family history. Social History: The patient presented to the ED alone. Smoking Status: Never smoker Smokeless Tobacco: Never used Alcohol Use: No Marital Status: Single Review of Systems Constitutional: Negative for chills and fever. Musculoskeletal: Positive for left arm pain. Neurological: Positive for left arm tingling. All other systems reviewed and are negative. Pt c/o L arm pain. Pt had a MRI yesterday with contrast, with she gets every few years. Pt c/o L armfeeling hot when injecting contrast. Pt c/o L arm pain and tingling today. Physical Exam First Vitals: BP: 121/74 Pulse: 95 Temp: 98.2 ??F (36.8 ??C) Resp: 18 Height: 170.2 cm (5' 7) Weight: 52.6 kg (116 lb) SpO2: 100 % (normal) Physical Exam Musculoskeletal: Arms: GEN: patient smiling, no distress HEAD: atraumatic, normocephalic EYES: pupils reactive, conjunctivae normal ENT: TMs flat and white bilaterally, oropharynx normal with no erythema or exudate, mucus membranes moist NECK: no JVD, no cervical LAD, no supraclavicular swelling or edema on the left side RESPIRATORY: no tachypnea, breath sounds clear to auscultation (no rales, wheezes, rhonchi) CVS: normal S1/S2, no murmurs/rubs/gallops ABDOMEN: soft, nontender, no masses or organomegaly, no rebound, positive bowel sounds EXTREMITIES: intact pulses x 2 (radial pulses intact), full range of motion at joints, no edema, caprefill < 3 seconds. Compartments soft SKIN: warm and dry, recent IV stick in left antecub but no hematoma or palpable cords. No redness orexternal skin reaction noted. NEURO: GCS 15, cranial nerves intact. Motor- moves all 4 extremities with 5/5 strength, certified coding specialist 5/5. Wrist flex/ext normal. Sensation- intact all UE dermatones to pinprick and light touch. Coordination-ambulatory. Overall symmetrical exam HEME: no bruising Emergency Department Course Imaging: Radiographic findings were communicated with the patient who voiced understanding of the findings. US Extremity Upper Venous: No evidence for deep venous thrombosis in the left upper extremity. Per radiology. Laboratory: BMP: All WNL (Creatinine 0.62) CBC: All WNL (WBC 5.5, HGB 14.0, PLT 221) CRP inflammation: <2.9 Erythrocyte sedimentation rate: 5 ED Interventions: [facility] Emergency Department Course: Nursing notes and vitals reviewed. I performed an exam of the patient as documented above. Blood drawn. This was sent to the lab for further testing, results above. The patient was sent for an ultrasound while here in the emergency department, findings above. (1107) Updated patient on results Discussed results with patient. Gave patient copies of results (applicable labs, CT scans and/or ultrasound). Answered questions. Asked patient to follow up with PCP. (1113) Dad in room, answered questions. Findings and plan explained to the Patient and father. Patient discharged home with instructions regarding supportive care, medications, and reasons to return. The importance of close follow-up was reviewed. Impression & Plan Medical Decision Making: Destiney Cassidy is a 26 year old female who presents with tenderness and feeling of hotness along her left forearm after getting an MRI dye from [facility]. On examination, the compartments are soft and she has intact sensation and pedal pulses. She does have the spot in her left antecub where the IV was placed. I do not feel any contrast infiltration or palpable cords. An IV wasplaced, and labs were checked on the opposite side, such that we could see for any source of infection, and she was sent for ultrasound. Ultrasound did not show any evidence of DVT, and there was no obvious palpable thrombophlebitis. Her labs are normal, including a sed rate, CRP, a CBC, and a BMP. The case was discussed with her and her dad with regard to the etiology of this pain that could be a contrast reaction. I did encourage her to put ice on the area, to try Benadryl if it itches, and she should definitely follow up with whoever did the procedure. Secondly, the patient describes numbness and tingling that extends into her fingers. She could have a nerve that has been affected, and that is something that would need follow up either with her primary care or with the people that did the procedure. At this point, there is no reason for admission, and she is okay with this plan of discharge. She was given copies of her studies to follow up. Diagnosis: ICD-10-CM 1. Pain of left upper arm M79.622 2. Contrast media adverse reaction, initial encounter T50.8X5A Disposition: Discharged to home. Instructions to patient: Please follow up with MRI team. No sign of blood clot or infection at this time. Copies of labs,. For itching, use benadryl as needed. Can also try icing the area. I, Dean Cedeno, am serving as a scribe at 9:15 AM on 03/29/2017 to document services personally performed by Lisy Whelan MD based on my observations and the provider's statements to me. [facility] EMERGENCY DEPARTMENT Lisy Whelan MD 03/29/17 1338 documented in this encounter Plan of Treatment Not on filedocumented as of this encounter Procedures Procedure Name Priority Date/Time Associated Comments Diagnosis US UPPER EXTREMITY STAT 03/29/2017 10:34 Resul ts for this VENOUS DUPLEX LEFT AM CDT procedure are in the results section. CBC WITH PLATELETS & STAT 03/29/2017 9:40 AM R esults for this DIFFERENTIAL CDT procedure are i n the results section. ERYTHROCYTE STAT 03/29/2017 9:40 AM Results f or this SEDIMENTATION RATE CDT procedure are in AUTO the results section. CRP INFLAMMATION STAT 03/29/2017 9:40 AM Resul ts for this CDT procedure are i n the results section. BASIC METABOLIC PANEL STAT 03/29/2017 9:40 AM Results for this CDT procedure are i n the results section. documented in this encounter Results US Extremity Upper Venous lt (03/29/2017 10:34 AM CDT) Anatomical Region Laterality Modality Extremity Ultrasound Specimen (Source) Anatomical Location Collection Method / Collectio n Time Received Time / Laterality Volume Impressions 03/29/2017 10:37 AM CDT IMPRESSION: No evidence for deep venous thrombosis in the left upper extremity. DIAZ MILES MD Narrative 03/29/2017 10:37 AM CDT US UPPER EXTREMITY VENOUS DUPLEX LEFT ?03/29/2017 10:34 AM HISTORY: Left arm swelling. TECHNIQUE: Spectral Doppler and waveform analysis were performed on the left upper extremity veins. COMPARISON: None. FINDINGS: The left internal jugular, sub clavian, axillary, and brachial veins are patent and negative f or deep venous thrombosis. The left basilic, cephalic, radial, and ulnar veins also appear patent and negative for thrombus. Procedure Note Diaz Miles MD - 03/29/2017Forma tting of this note might be different from the original. US UPPER EXTREMITY VENOUS DUPLEX LEFT 04/2017 10:34 AM HISTORY: Left arm swelling. TECHNIQUE: Spectral Doppler and waveform analysis were performed on the left upper extremity veins. COMPARISON: None. FINDINGS: The left internal jugular, sub clavian, axillary, and brachial veins are patent and negative f or deep venous thrombosis. The left basilic, cephalic, radial, and ulnar veins also appear patent and negative for thrombus. IMPRESSION: No evidence for deep venous thrombosis in the left upper extremity. DIAZ MILES MD Lisy Whelan MD [facility] US ORDERABLES Erythrocyte sedimentation rate auto (03/29/2017 9:40 AM CDT) P athologist Signature Sed Rate 5 0 - 20 mm/h 03/29/2017 [facility] 9:55 AM CDT HOSPITAL Specimen Anatomical Collection Method Collection Time Receive d Time (Source) Location / / Volume Laterality Blood specimen 03/29/2017 9:40 AM 017 9:47 (specimen) CDT AM CDT Lisy Whelan MD LAB - BLOOD ORDERABLES Performing Organization Address City/State/ZIP Code Phon e Number M [facility] [address] [place] [place] [address] [facility] [address] [place], [place] [address], [facility] [phone] CRP inflammation (03/29/2017 9:40 AM CDT) P athologist Signature CRP Inflammation <2.9 0.0 - 8.0 03/29/2017 [place] mg/L 10:04 AM [facility] Specimen Anatomical Collection Method Collection Time Receive d Time (Source) Location / / Volume Laterality Blood specimen 03/29/2017 9:40 AM 017 9:47 (specimen) CDT AM CDT Lisy Whelan MD LAB - BLOOD ORDERABLES Performing Organization Address City/State/ZIP Code Phon e Number M [place] [address], [place] [address] [facility] [address] [place], [place] [address], [facility] [phone] CBC with platelets differential (03/29/2017 9:40 AM CDT) Patholo gist Method Time Signature WBC 5.5 4.0 - 03/29/2017 [facility] 11.0 9:49 AM [facility] 10e9/L [facility] RBC Count 4.63 3.8 - 5.2 03/29/2017 [facility] 10e12/L 9:49 AM [facility] Hemoglobin 14.0 11.7 - 03/29/2017 [facility] 15.7 g/dL 9:49 AM [facility] Hematocrit 41.6 35.0 - 03/29/2017 [facility] 47.0 % 9:49 AM [facility] MCV 90 78 - 100 03/29/2017 [facility] fl 9:49 AM [facility] MCH 30.2 26.5 - 03/29/2017 [facility] 33.0 pg 9:49 AM [facility] MCHC 33.7 31.5 - 03/29/2017 [facility] 36.5 g/dL 9:49 AM [facility] RDW 11.9 10.0 - 03/29/2017 [facility] 15.0 % 9:49 AM [facility] Platelet Count 221 150 - 450 03/29/2017 [facility] 10e9/L 9:49 AM [facility] Diff Method Automated 03/29/2017 [facility] Method 9:49 AM [facility] % Neutrophils 58.6 % 03/29/2017 [facility] 9:49 AM [facility] % Lymphocytes 28.9 % 03/29/2017 [facility] 9:49 AM [facility] % Monocytes 9.0 % 03/29/2017 [facility] 9:49 AM [facility] % Eosinophils 2.0 % 03/29/2017 [facility] 9:49 AM [facility] % Basophils 1.1 % 03/29/2017 [facility] 9:49 AM [facility] % Immature 0.4 % 03/29/2017 [place] Granulocytes 9:49 AM [facility] Nucleated RBCs 0 0 /100 03/29/2017 [facility] 9:49 AM [facility] Absolute 3.2 1.6 - 8.3 03/29/2017 [facility] Neutrophil 10e9/L 9:49 AM [facility] Absolute 1.6 0.8 - 5.3 03/29/2017 [facility] Lymphocytes 10e9/L 9:49 AM [facility] Absolute 0.5 0.0 - 1.3 03/29/2017 [facility] Monocytes 10e9/L 9:49 AM [facility] Absolute 0.1 0.0 - 0.7 03/29/2017 [place] Eosinophils 10e9/L 9:49 AM [facility] Absolute 0.1 0.0 - 0.2 03/29/2017 [facility] Basophils 10e9/L 9:49 AM [facility] Abs Immature 0.0 0 - 0.4 03/29/2017 [place] Granulocytes 10e9/L 9:49 AM [facility] Absolute 0.0 03/29/2017 [place] Nucleated RBC 9:49 AM [facility] Specimen Anatomical Collection Method Collection Time Receive d Time (Source) Location / / Volume Laterality Blood specimen 03/29/2017 9:40 AM 017 9:47 (specimen) CDT AM CDT Lisy Whelan MD LAB - BLOOD ORDERABLES Performing Organization Address City/State/ZIP Code Phon e Number M [facility] [address], [place] [address] [facility] [address] [place], [place] [address] [place] [address] Basic metabolic panel (03/29/2017 9:40 AM CDT) athologist Signature Sodium 139 133 - 144 03/29/2017 [place] mmol/L 10:04 AM [facility] Potassium 3.7 3.4 - 5.3 03/29/2017 [place] mmol/L 10:04 AM [facility] Chloride 108 94 - 109 03/29/2017 [place] mmol/L 10:04 AM [facility] Carbon Dioxide 25 20 - 32 03/29/2017 [place] mmol/L 10:04 AM [facility] Anion Gap 6 3 - 14 03/29/2017 [place] mmol/L 10:04 AM [facility] Glucose 83 70 - 99 03/29/2017 [place] mg/dL 10:04 AM [facility] Urea Nitrogen 7 7 - 30 03/29/2017 [place] mg/dL 10:04 AM [facility] Creatinine 0.62 0.52 - 03/29/2017 [place] 1.04 mg/dL 10:04 AM [facility] GFR Estimate >90 >60 03/29/2017 [place] mL/min/1.7 10:[address] Comment: Non GFR Calc GFR Estimate If >90 >60 mL/min/1.7m2 03/29/2017 10:04 AM [facility] Comment: GFR Calc Calcium 8.8 8.5 - 10.1 mg/dL 03/29/2017 10:04 AM [facility] Specimen Anatomical Collection Method Collection Time Receive d Time (Source) Location / / Volume Laterality Blood specimen 03/29/2017 9:40 AM 017 9:47 (specimen) CDT [facility] Lisy Whelan MD LAB - BLOOD ORDERABLES Performing Organization Address City/State/ZIP Code Phon e Number Juliano [facility] [address], [place] [address] [facility] [address] [place] [id number] , [facility] [phone] documented in this encounter Visit Diagnoses Diagnosis Pain of left upper arm Pain in limb Contrast media adverse reaction, initial encounter documented in this encounter Care Teams 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
--- OUTSIDE RECORDS SUMMARY | 2022-06-23 17:45 | XMS_ITS | Encounter Summary ---
:1990 Author Organization [employer] Address [address] [facility] [place] [address] Care Team Providers Name Role Phone Justin Loya MD Primary Care Provider Silas Santiago MD Unavailable Reason for Visit Reason Comments Shortness of Breath Encounter Details Date Type Department Care Team Description 05/08/2017 [facility] Caden Jean-Baptiste MD SOB (shortness of breath); [facility] Emergency [facility] bronch[facility]asm Dept [place] [address] [facility] [phone] [place], [place] [address] (Wo rk) Social History Tobacco Use Types Packs/Day Years Used Date Smoking Tobacco: Never Smokeless Tobacco: Never Alcohol Use Standard Drinks/Week Comments No 0 (1 standard drink = 0.6 oz pure alcoho l) Sex Assigned at Date Recorded Not on file documented as of this encounter Last Filed Vital Signs Vital Sign Reading Time Taken Comments Blood Pressure 118/76 05/08/2017 11:51 PM CDT Pulse 81 05/08/2017 10:08 PM CDT Temperature 36.8 ??C (98.3 ??F) 05/08/2017 10:08 PM CDT Respiratory Rate 20 05/08/2017 10:08 PM CDT Oxygen Saturation 95% 05/08/2017 11:51 PM CDT Inhaled Oxygen Concentration - - Weight - - Height - - Body Mass Index - - documented in this encounter Discharge Instructions Discharge InstructionsCaden Jean-Baptiste MD - 05/08/2017 11:45 PM CDT Images from the original note were not included. Bronchospasm (Adult) Bronchospasm occurs when the airways (bronchial tubes) go into spasm and contract. This makes it hard to breathe and causes wheezing (a high-pitched whistling sound). Bronchospasm can also cause frequent coughing without wheezing. Bronchospasm is due to irritation, inflammation, or allergic reaction of the airways. People with asthma get bronchospasm. However, not everyone with bronchospasm has asthma. Being exposed to harmful fumes, a recent case of bronchitis, exercise, or a flare-up of chronic obstructive pulmonary disease (COPD) may cause the airways to spasm. An episode of bronchospasm may last 7 to 14 days. Medicine may be prescribed to relax the airways and prevent wheezing. Antibiotics will be prescribed only if your healthcare provider thinks there is a bacterial infection. Antibiotics do not help a viral infection. Home care ?? Drink lots of water or other fluids (at least 10 glasses a day) during an attack. This will loosen lung secretions and make it easier to breathe. If you have heart or kidney disease, check with yourdoctor before you drink extra fluids. ?? Take prescribed medicine exactly at the times advised. If you take an inhaled medicine to help with breathing, do not use it more than once every 4 hours, unless told to do so. If prescribed an antibiotic or prednisone, take all of the medicine, even if you are feeling better after a few days. ?? Do not smoke. Also avoid being exposed to secondhand smoke. ?? If you were given an inhaler, use it exactly as directed. If you need to use it more often than prescribed, your condition may be getting worse. Contact your healthcare provider. Follow-up care Follow up with your healthcare provider, or as advised. Note: If you are age 65 or older, have a chronic lung disease or condition that affects your immune system, or you smoke, we recommend getting pneumococcal vaccinations, as well as an influenza vaccination (flu shot) every . Ask your healthcare provider about this. When to seek medical advice Call your healthcare provider right away if any of these occur: ?? You need to use your inhalers more often than usual. ?? You develop a fever of 100.4??F (38??C) or higher. ?? You are coughing up lots of dark-colored sputum (mucus). ?? You do not start to improve within 24 hours. Call 911, or get immediate medical care Contact emergency services if any of these occur: ?? Coughing up bloody sputum (mucus) ?? Chest pain with each breath ?? Increased wheezing or shortness of breath Date Last Reviewed: 04/01/2015 ?? [id number] [employer]. [address] [place] [address], [place] [address]. All rights reserved. This information is not intended as a substitute for professional medical care. Always follow your healthcare professional's instructions. Shortness of Breath (Dyspnea) Shortness of breath is the feeling that you can't catch your breath or get enough air. It is also known as dyspnea. Dyspnea can be caused by many different conditions. They include: ?? Acute asthma attack. ?? Worsening of chronic lung diseases such as chronic bronchitis and emphysema. ?? Heart failure. This is when weak heart muscle allows extra fluid to collect in the lungs. ?? Panic attacks or anxiety. Fear can cause rapid breathing (hyperventilation). ?? Pneumonia, or an infection in the lung tissue. ?? Exposure to toxic substances, fumes, smoke, or certain medicines. ?? Blood clot in the lung (pulmonary embolism). This is often from a piece of blood clot in a deep vein of the leg (deep vein thrombosis) that breaks off and travels to the lungs. ?? Heart attack or heart-related chest pain (angina). ?? Anemia. ?? Collapsed lung (pneumothorax). ?? Dehydration. ?? . Based on your visit today, the exact cause of your shortness of breath is not certain. Your tests don???t show any of the serious causes of dyspnea. You may need other tests to find out if you have a serious problem. It???s important to watch for any new symptoms or symptoms that get worse. Follow up with your healthcare provider as directed. Home care Follow these tips to take care of yourself at home: ?? When your symptoms are better, go back to your usual activities. ?? If you smoke, you should stop. Join a quit-smoking program or ask your healthcare provider for help. ?? Eat a healthy diet and get plenty of sleep. ?? Get regular exercise. Talk with your healthcare provider before starting to exercise, especially if you have other medical problems. ?? Cut down on the amount of caffeine and stimulants you consume. Follow-up care Follow up with your healthcare provider, or as advised. If tests were done, you will be told if your treatment needs to be changed. You can call as directedfor the results. (Note: If an X-ray was taken, a specialist will review it. You will be notified of any new findings that may affect your care.) Call 911 or get immediate medical care Shortness of breath may be a sign of a serious medical problem. For example, it may be a problem with your heart or lungs. Call 911 if you have worsening shortness of breath or trouble breathing, especially with any of the symptoms below: ?? You are confused or it???s difficult to wake you. ?? You faint or lose consciousness. ?? You have a fast heartbeat, or your heartbeat is irregular. ?? You are coughing up blood. ?? You have pain in your chest, arm, shoulder, neck, or upper back. ?? You break out in a sweat. When to seek medical advice Call your healthcare provider right away if any of these occur: ?? Slight shortness of breath or wheezing ?? Redness, pain or swelling in your leg, arm, or other body area ?? Swelling in both legs or ankles ?? Fast weight gain ?? Dizziness or weakness ?? Fever of 100.4??F (38??C) or higher, or as directed by your healthcare provider Date Last Reviewed: 04/01/2015 ?? [id number] [employer] [address] [place] [address], [place] [id number]. All rights reserved. This information is not intended as a substitute for professional medical care. Always follow your healthcare professional's instructions. documented in this encounter Medications at Time of Discharge Medication Sig Dispensed Refills Start Date End Date acetaminophen (TYLENOL) Take 1-2 tablets by 0 05/20/2017 500 MG tablet mouth every 6 hours as needed. albuterol (PROAIR Inhale 2 puffs into 1 Inhaler 0 7 05/20/2017 HFA/PROVENTIL the lungs every 6 HFA/VENTOLIN HFA) 108 hours as needed for (90 BASE) MCG/ACT shortness of breath / Inhaler dyspnea or wheezing diazepam (VALIUM) 5 MG Take 1 tablet [...] documented as of this encounter ED Notes Julieta Soto - 05/08/2017 11:37 PM CDT Pt ambulated with pulse oximeter. Oxygen saturation remained within normal limits throughout with the lowest reading at 93%. Indira Ann RN - 05/08/2017 10:43 PM CDT Pt complains of anxiety about breathing. States she had a recent PE and is on blood thinners. Tonight she choked or swallowed wrong and started coughing. Then became anxious about PE. Pt also notes herperiod was heavier than normal last week and she has been dizzy. Pt states she does not want any radiation/imaging and no IV. Pt resting in bed; no apparent distress. Patient's airway, breathing and circulation are all intact without need for intervention at this time. Respiration regular and easy. Patient is alert and oriented x4. Skin warm, dry with color consistent with ethnicity. No obvious signs of injury. Fanny Pollack RN - 05/08/2017 10:08 PM CDT Pt was diagnosed with a blood clot in the left side of her neck in March and started on blood thinner. Pt states her period was very heavy this past week and she has felt dizzy since Thursday. About an hour and a half ago pt had a coughing fit and has felt some pain in her neck and felt short of breath since then. Pt took a Benadryl after than in case there was any swelling in her neck. Pt has a home O2 sensor and said it was reading in the 70's but pt also had her nails recently painted. O2 100% in ED. Pt states she is also feeling very anxious. Caden Jean-Baptiste MD - 05/08/2017 9:53 PM CDT History Chief Complaint: Shortness of Breath RICHAR Cassidy is a 26 year old female, with a history of blood niko and on Xarelto, who presents with her partner to the ED for evaluation of shortness of breath. The patient reports she was swallowing her medication and began coughing with throat swelling today. The patient notes having shortness of breath afterwards. The patient reports having chest tightness. The patient notes feeling dizzy with movement. The patient reports having a headache as well. The patient notes she checked her oxygen at home and was at 70% saturation on room air; the patient recently had her nails painted. The patientreports taking Benadryl. The patient denies any fevers, chills, diaphoresis, nausea, vomiting, abdominal pain, leg swelling, numbness, tingling, or weakness. Of note, the patient reports she is feelinganxious. Allergies: Cefzil Ciprofloxacin Penicillin G Medications: rivaroxaban ANTICOAGULANT (XARELTO) 15 MG TABS tablet traMADol (ULTRAM) 50 MG tablet lidocaine (LIDODERM) 5 % patch diazepam (VALIUM) 5 MG tablet acetaminophen (TYLENOL) 500 MG tablet Past Medical History: Insomnia Blood clot Past Surgical History: Lumbar decompression Myringotomy, bilateral tube insert Tonsillectomy [place] teeth extraction Family History: Blood clots Social History: Smoking status: Never smoker Alcohol use: No Presents to ED with partner Marital Status: Single [1] Review of Systems Constitutional: Negative for chills, diaphoresis and fever. Respiratory: Positive for cough, chest tightness and shortness of breath. Cardiovascular: Negative for leg swelling. Gastrointestinal: Negative for abdominal pain, nausea and vomiting. Neurological: Positive for dizziness and headaches. Negative for weakness and numbness. Psychiatric/Behavioral: The patient is nervous/anxious. All other systems reviewed and are negative. Physical Exam Patient Vitals for the past 24 hrs: BP Temp Temp src Pulse Resp SpO2 05/08/17 2351 118/76 - - - - 95 % 05/08/17 2227 - - - - - 98 % 05/08/17 2210 - - - - - 97 % 05/08/17 2208 133/83 98.3 ??F (36.8 ??C) Oral 81 20 100 % Physical Exam Constitutional: Oriented to person, place, and time. HENT: Head: Normocephalic. Mouth/Throat: Oropharynx is clear and moist. Eyes: EOM are normal. Pupils are equal, round, and reactive to light. Neck: Neck supple. Cardiovascular: Normal rate, regular rhythm and normal heart sounds. Exam reveals no gallop and no friction rub. No murmur heard. Pulmonary/Chest: Effort normal and breath sounds normal. No respiratory distress. No wheezes. No rales. No reproducible chest wall pain. Abdominal: Soft. No distension. No tenderness. No rebound and no guarding. Musculoskeletal: 2+ distal equal pulses. No leg calf tenderness, swelling or edema. Normal range of motion. Neurological: Alert and oriented to person, place, and time. Moves all 4 extremities spontaneously Skin: No rash noted. No pallor. Emergency Department Course ECG (23:01:43): Rate 75 bpm. SD interval 170. QRS duration 86. QT/QTc 398/444. P-R-T axes 67 67 65. Normal sinus rhythm. Normal ECG. Interpreted at 2308 by Caden Jean-Baptiste MD. Laboratory: HCG : Negative Troponin I: <0.015 CBC: o/w WNL (WBC 6.1, HGB 14.3, PLT 273) BMP: Glucose 101(H) o/w WNL (Creatinine 0.76) Interventions: 2257: Ativan 1mg Oral Emergency Department Course: Past medical records, nursing notes, and vitals reviewed. 2238: I performed an exam of the patient and obtained history, as documented above. IV inserted and blood drawn. 2329: I rechecked the patient. Explained findings to patient and partner. 2343: I rechecked the patient. Findings and plan explained to the Patient and partner. Patient discharged home with instructions regarding supportive care, medications, and reasons to return. The importance of close follow-up was reviewed. Impression & Plan Medical Decision Making: Ms. Cassidy, 26 year old female that came in complaining of shortness of breath after coughing fit just after swallowing her evening medication. Differential includes bronchospasm, obstructive foreign body, pneumothorax, pneumonitis, ACS equivalent, pulmonary embolism, or other causes. She did end up having workup as seen. Lab work is otherwise reassuring including her hemoglobin with her increasing menstruation on her Xarelto. I did offer her chest x-ray which she ultimately refused as she's had a number of CT scans and chest x-rays with her recent diagnosis of clot which she's on Xarelto for, andher previous workup for chest pain in March which she had a CT of her chest at that time. I also offered Albuterol which she ultimately refused as this causes anxiety. At this time though, she is feeling improved. I would highly doubt pulmonary embolism, as she is taking her Xarelto religiously, and she's otherwise safe for discharge. I suspect bronchospasm. No signs of obstruct or retained foreign body. She's told to return for any worsening shortness of breath or other concerns. Diagnosis: ICD-10-CM 1. SOB (shortness of breath) R06.02 2. Acute bronchospasm J98.01 Disposition: Discharged to home. Follow with PMD. Discharge Medications: Details albuterol (PROAIR HFA/PROVENTIL HFA/VENTOLIN HFA) 108 (90 BASE) MCG/ACT Inhaler Inhale 2 puffs into the lungs every 6 hours as needed for shortness of breath / dyspnea or wheezing, Disp-1 Inhaler, R-0,Local Print Juliana Christensen 05/08/2017 [facility] EMERGENCY DEPARTMENT I, Juliana Christensen, am serving as a scribe at 10:38 PM on 05/08/2017 to document services personallyperformed by Caden Jean-Baptiste MD based on my observations and the provider's statements to me. Caden Jean-Baptiste MD 05/09/17 0410 documented in this encounter Plan of Treatment Not on filedocumented as of this encounter Procedures Procedure Name Priority Date/Time Associated Comments Diagnosis EKG 12-LEAD, TRACING STAT 05/08/2017 11:01 Res ults for this ONLY PM CDT procedure are i n the results section. CBC WITH PLATELETS & STAT 05/08/2017 10:38 Res ults for this DIFFERENTIAL PM CDT procedure are i n the results section. TROPONIN I STAT 05/08/2017 10:38 Results for this PM CDT procedure are i n the results section. HCG QUALITATIVE STAT 05/08/2017 10:38 Results for this PM CDT procedure are i n the results section. BASIC METABOLIC PANEL STAT 05/08/2017 10:38 Re sults for this PM CDT procedure are i n the results section. documented in this encounter Results EKG 12-lead, tracing only (05/08/2017 11:01 PM CDT) [facility] Method Time Signature Interpretation ECG Click View RADIOLOGY Image link RESULTS to view waveform and result Specimen (Source) Anatomical Collection Method Collection Time Re ceived Time Location / / Volume Laterality 05/08/2017 11:01 PM CDT Caden Jean-Baptiste MD ECG ORDERABLES Performing Organization Address City/[facility]/ZIP [facility] Phon e Number RADIOLOGY RESULTS HCG QUALitative (blood) (05/08/2017 10:38 PM CDT) Patholo gist Method Time Signature HCG Qualitative Negative NEG^Negati 05/08/2017 [place] Serum ve 11:26 PM CDT [facility] Comment: This test is for screening purposes. ??R esults should be interpreted along with the clinical picture. ??Confirmation te sting is available if warranted by ordering [id number], HCG Quantitative Pregna ncy. Specimen Anatomical Collection Method Collection Time Receive d Time (Source) Location / / Volume Laterality Blood specimen 05/08/2017 10:38 7 (specimen) PM CDT 10:55 PM CDT Caden Jean-Baptiste MD LAB - BLOOD ORDERABLES Performing Organization Address [facility] Phon e Number [place] [address] [place] [address] [facility] [address] [phone] Troponin I (05/08/2017 10:38 PM CDT) P athologist Signature Troponin I ES <0.015 0.000 - 05/08/2017 [place] 0.045 ug/L 11:15 PM CDT [facility] Comment: The 99th percentile for upper reference range is 0.045 ug/L. ??Troponin values in the range of 0.045 - 0.120 ug/L may b e associated with risks of adverse clinical events. Specimen Anatomical Collection Method Collection Time Receive d Time (Source) Location / / Volume Laterality Blood specimen 05/08/2017 10:38 7 (specimen) PM CDT 10:55 PM CDT Caden Jean-Baptiste MD LAB - BLOOD ORDERABLES Performing Organization Address [facility]/ZIP [facility] Phon e Number M [facility] [address] [place] [address] [facility] [address] [place], [place] [address], [facility] [phone] (ABNORMAL) Basic metabolic panel (05/08/2017 10:38 PM CDT) athologist Signature Sodium 139 133 - 144 05/08/2017 [place] mmol/L 11:15 PM [facility] Potassium 3.8 3.4 - 5.3 05/08/2017 [place] mmol/L 11:15 PM [facility] Chloride 106 94 - 109 05/08/2017 [place] mmol/L 11:15 PM [facility] Carbon Dioxide 30 20 - 32 05/08/2017 [place] mmol/L 11:15 PM [facility] Anion Gap 3 3 - 14 05/08/2017 [place] mmol/L 11:15 PM [facility] Glucose 101 (H) 70 - 99 05/08/2017 [place] mg/dL 11:15 PM [facility] Urea Nitrogen 15 7 - 30 05/08/2017 [place] mg/dL 11:15 PM [facility] Creatinine 0.76 0.52 - 05/08/2017 [place] 1.04 mg/dL 11:15 PM [facility] GFR Estimate >90 >60 05/08/2017 [place] mL/min/1.7 11:[address] Comment: Non GFR Calc GFR Estimate If >90 >60 mL/min/1.7m2 05/08/2017 11:15 PM [facility] Comment: GFR Calc Calcium 8.6 8.5 - 10.1 mg/dL 05/08/2017 11:15 PM [facility] Specimen Anatomical Collection Method Collection Time Receive d Time (Source) Location / / Volume Laterality Blood specimen 05/08/2017 10:38 7 (specimen) PM CDT 10:55 PM CDT Caden Jean-Baptiste MD LAB - BLOOD ORDERABLES Performing Organization Address City/State/ZIP Code Phon e Number [place] [address] [address] [place], [place] [address] [facility] [address] [phone] CBC with platelets differential (05/08/2017 10:38 PM [facility]) [facility] gist Method Time Signature WBC 6.1 4.0 - 05/08/2017 [facility] 11.0 10:58 PM [facility] 10e9/L [facility] RBC Count 4.69 3.8 - 5.2 05/08/2017 [facility] 10e12/L 10:58 PM [facility] Hemoglobin 14.3 11.7 - 05/08/2017 [facility] 15.7 g/dL 10:58 PM [facility] Hematocrit 41.8 35.0 - 05/08/2017 [facility] 47.0 % 10:58 PM [facility] MCV 89 78 - 100 05/08/2017 [facility] fl 10:58 PM [facility] MCH 30.5 26.5 - 05/08/2017 [facility] 33.0 pg 10:58 PM [facility] MCHC 34.2 31.5 - 05/08/2017 [facility] 36.5 g/dL 10:58 PM [facility] RDW 11.9 10.0 - 05/08/2017 [facility] 15.0 % 10:58 PM [facility] Platelet Count 273 150 - 450 05/08/2017 [facility] 10e9/L 10:58 PM [facility] Diff Method Automated 05/08/2017 [facility] Method 10:58 PM [facility] % Neutrophils 48.3 % 05/08/2017 [facility] 10:58 PM [facility] % Lymphocytes 37.3 % 05/08/2017 [facility] 10:58 PM [facility] % Monocytes 8.9 % 05/08/2017 [facility] 10:58 PM [facility] % Eosinophils 3.8 % 05/08/2017 [facility] 10:58 PM [facility] % Basophils 1.5 % 05/08/2017 [facility] 10:58 PM [facility] % Immature 0.2 % 05/08/2017 [facility] Granulocytes 10:58 PM [facility] Nucleated RBCs 0 0 /100 05/08/2017 [facility] 10:58 PM [facility] Absolute 3.0 1.6 - 8.3 05/08/2017 [facility] Neutrophil 10e9/L 10:58 PM [facility] Absolute 2.3 0.8 - 5.3 05/08/2017 [place] Lymphocytes 10e9/L 10:58 PM [facility] Absolute 0.5 0.0 - 1.3 05/08/2017 [place] Monocytes 10e9/L 10:58 PM [facility] Absolute 0.2 0.0 - 0.7 05/08/2017 [place] Eosinophils 10e9/L 10:58 PM [facility] Absolute 0.1 0.0 - 0.2 05/08/2017 [place] Basophils 10e9/L 10:58 PM [facility] Abs Immature 0.0 0 - 0.4 05/08/2017 [place] Granulocytes 10e9/L 10:58 PM [facility] Absolute 0.0 05/08/2017 [place] Nucleated RBC 10:58 PM [facility] Specimen Anatomical Collection Method Collection Time Receive d Time (Source) Location / / Volume Laterality Blood specimen 05/08/2017 10:38 7 (specimen) PM CDT 10:55 PM CDT Caden Jean-Baptiste MD LAB - BLOOD ORDERABLES Performing Organization Address City/State/ZIP Code Phon e Number M [place] [address] [phone] documented in this encounter Visit Diagnoses Diagnosis SOB (shortness of breath) Shortness of breath Acute bronchospasm documented in this encounter Administered Medications Inactive Administered Medications - up to 3 most recent administrations Medication Order MAR Action Action Date Dose Rate Site LORazepam (ATIVAN) tablet 1 mg Given 05/08/2017 10:57 PM CDT 1 mg 1 mg, Oral, ONCE, On Thu05/08/17 at 2249, For 1 dose documented in this encounter Active and Recently Administered Medications Times are shown in CDT. Scheduled Medication Order 05/06/2017 05/07/2017 05/08/2017 LORazepam (ATIVAN) tablet 1 mg (COMPLETED) 0627 (Given - Provider: Indira Ann RN) 1 mg, Oral, ONCE, Thu05/08/17 at 2249, For 1 dose documented in this encounter Care Teams Log Preparer Relationship Specialty Start Date End Date Justin Loya MD PCP - General Family Practice 02/19/11 [facility] [address] [place] [phone] Silas Santiago MD MD Pain Clinic 11/29/13 [facility] [address] [place], [place] [id number] documented as of this encounter
--- OUTSIDE RECORDS SUMMARY | 2022-06-23 17:45 | XMS_ITS | Encounter Summary ---
:1990 Author Organization [place] Address [facility] [place] [address] Care Team Providers Name Role Phone Justin Loya MD Primary Care Provider Silas Santiago MD Unavailable Reason for Visit Reason Onset Date Comments Clinic Care Coordination - Follow-up 09/22/2014 Encounter Details Date Type Department Care Team Description 09/22/2014 Telephone Neurology Clinic Raya Vee I, Clinic Care Coordination Avel RN - Follow-up [facility] [phone] 1st Floor, Clinic 1A (Work) [address] [place] [phone] Social History Tobacco Use Types Packs/Day Years Used Date Smoking Tobacco: Never Smokeless Tobacco: Never Alcohol Use Standard Drinks/Week Comments No 0 (1 standard drink = 0.6 oz pure alcoho l) Sex Assigned at Date Recorded Not on file documented as of this encounter Miscellaneous Notes Telephone Encounter - Raya Vee I RN - 09/22/2014 10:06 AM CST Message left for patient that per Dr. Unger, Cipro can sometimes worsen nerve pain and there isno way to detoxify other than stopping the medication. Destiney encouraged to make an appointment should any other concerns/symptoms arise. EILLANCE OBSERVER Telephone Encounter - Valentín Unger MD - 09/22/2014 9:39 AM SURVEILLANCE OBSERVER Cipro can sometimes worsen nerve pain but there is no way to detoxify other than stopping it. I amnot sure I can offer Destiney further advise on the management of pain as she has no evidence of peripheral neuropathy or DOLL WIG MAKER ROOTED HAIR lesion whatsoever. If she has further questions, I cannot offer answers unless she returns to clinic, and unless she clarifies to us first: a) who treated her in the last 6-8 months for her pain (I have not seen her in clinic in long time), and b) how she was treated. Thanks EILLANCE OBSERVER Telephone Encounter - Raya Vee RN - 09/22/2014 9:05 AM CST Destiney called to report that her nerve pain had completely resolved until she had a three day courseof Cipro 500 mg twice daily. Now her nerves are agitated and she is having pain again and wants to know if Cipro can cause nerve toxicity and if there is a way to detoxify her system. Message sent toDr. Unger. EILLANCE OBSERVER documented in this encounter Plan of Treatment Not on filedocumented as of this encounter Visit Diagnoses Not on filedocumented in this encounter Care Teams Mac Artist Relationship Specialty Start Date End Date Justin Loya MD PCP - General Family Practice 02/19/11 [facility] [address] [place] [phone] Silas Santiago MD MD Pain Clinic 11/29/13 [facility] [address] [facility] [place] [address] documented as of this encounter
--- OUTSIDE RECORDS SUMMARY | 2022-06-23 17:46 | XMS_ITS | Encounter Summary ---
:1990 Author Organization [place] Address [address] [facility] [place] [address] Care Team Providers Name Role Phone Justin Loya MD Primary Care Provider Reason for Visit Reason Onset Date Comments Procedure 10/06/2011 Encounter Details Date Type Department Care Team Description 10/06/2011 Telephone [facility] Pain Michel Cueva MD Procedure Management Center [address] [place] [address] [place], [place] [id number] [facility] [address] [place] [address] [place], [place] [address] [phone] Social History Tobacco Use Types Packs/Day Years Used Date Smoking Tobacco: Never Alcohol Use Standard Drinks/Week Comments No 0 (1 standard drink = 0.6 oz pure alcoho l) Sex Assigned at Date Recorded Not on file documented as of this encounter Miscellaneous Notes Telephone Encounter - Teresa Oglesby RN - 10/06/2011 2:51 PM CDT Pt has not been seen yet in the pain clinic , but is asking for information about an IVETTE. Pt does have a new eval. With Dr. Cueva on 11/07/11. Teresa oglesby rn documented in this encounter Plan of Treatment Not on filedocumented as of this encounter Visit Diagnoses Not on filedocumented in this encounter Care Teams Director Specialty Relationship Specialty Start Date End Date Justin Loya MD PCP - General Family Practice 02/19/11 [facility] [address] [place] [phone] documented as of this encounter
--- OUTSIDE RECORDS SUMMARY | 2022-06-23 17:46 | XMS_ITS | Encounter Summary ---
:1990 Author Organization [place] Address [address] [place] [address] Care Team Providers Name Role Phone Justin Loya MD Primary Care Provider Silas Santiago MD Unavailable Reason for Visit Reason Onset Date Comments Pain 12/01/2013 Encounter Details Date Type Department Care Team Description 12/01/2013 Telephone Neurology Clinic Raya Vee RN Pain [facility] 1st Floor, Clinic [address]A [address] [place] [phone] Social History Tobacco Use Types Packs/Day Years Used Date Smoking Tobacco: Never Smokeless Tobacco: Never Alcohol Use Standard Drinks/Week Comments No 0 (1 standard drink = 0.6 oz pure alcoho l) Sex Assigned at Date Recorded Not on file documented as of this encounter Miscellaneous Notes Telephone Encounter - Valentín Unger MD - 12/01/2013 4:15 PM CDT Spoke to Destiney. She is in bad pain and is out of state in [place]. She [place] an app[place] clinic[place] next week. She had many other questions- she is thinking of whether alpha-lipoic acidwould be helpful (told her it helps in diabetic neuropathy, not proven in idiopathic or other neuropathies, but not harmful, so I see nothing wrong taking it), taking nortiptyline (reasonable option inthe future, but not this week, this week we started tramadol 50 q6 hours, and increased her gabapentin to 600 am/900 mg pm, adding nortriptyline now will cause further drowsiness), also whether steroids should be tried (we generally do not do this in small fiber neuropathies without proof of autoimmuni ty, her tests so far are negative), expediting the skin biopsy reading (we will contact the lab), etc. I told her that the most realistic option if intolerable pain persists over the next days would be to go to an ED in [place] and request a short term opioid prescription. She asked me to prescribe it and I refused, because she is out of state for only 3 more days, coming back to [place] on Thursday, and of course class II/III drugs cannot be called to a pharmacy in [place] by phone or fax. She verbalized understanding. Telephone Encounter - Raya Vee I, RN - 12/01/2013 1:42 PM CDT Destiney called to stress again how much pain she is in, which she rates a 10/10. She said it is quickly progressing and feels like someone is squeezing her feet. She cannot sleep and her coping skills are degrading. Tramadol, Lidocaine patches and Gabapentin not helping. She is asking if there are any other tests or medications that would be helpful? Steroids? She tearful and asked to talk with Dr. Unger. Message sent to Dr. Unger. documented in this encounter Plan of Treatment Not on filedocumented as of this encounter Visit Diagnoses Not on filedocumented in this encounter Care Teams Advertising Account Executive Relationship Specialty Start Date End Date Justin Loya MD PCP - General Family Practice 02/19/11 [facility] [address] [place] [address] Silas Santiago MD MD Pain Clinic 11/29/13 [facility] [address] [place] [address] documented as of this encounter
--- OUTSIDE RECORDS SUMMARY | 2022-06-23 17:46 | XMS_ITS | Encounter Summary ---
:1990 Author Organization [place] Address [address] [facility] [place] [address] Care Team Providers Name Role Phone Justin Loya MD Primary Care Provider Reason for Visit Reason Onset Date Comments Other 10/03/2011 Encounter Details Date Type Department Care Team Description 10/03/2011 PRE VISIT [facility] Neurology Serafin Cueva MD Other Clinic [address] [phone] [place] [address] (Wo rk) Social History Tobacco Use Types Packs/Day Years Used Date Smoking Tobacco: Never Alcohol Use Standard Drinks/Week Comments No 0 (1 standard drink = 0.6 oz pure alcoho l) Sex Assigned at Date Recorded Not on file documented as of this encounter Miscellaneous Notes Telephone Encounter - Jerel Conroy. - 10/03/2011 10:15 AM CDT PATIENT INFORMATION 1. Reason for the visit: Nerve Pain in arms and legs 2. Referring provider and clinic name: Self 3. Provider managing care now (PCP and clinic name)? Dr. David Loya. [facility] in [place] 4. Records, Imaging, and Labs (see below) Records and Images have been rev'd ?? All NOTES from previous office visits that pertain to why they are seeing Dr Cueva ?? All EMG's- need the actual results (images) and the interpretation ?? MRI's, CT's, - need all images (on CD) and reports that pertain to why they are being seen (brain, cervical, thoracic, lumbar....ect) ?? All LABS that have been done in the last 2 years that pertain to why you are seeing Dr Cueva 5. Pt Health History Packet received, complete and hand carry to appointment. Packet will be mailed 10/03/11. Pt was asked to complete and bring to appointment. Yes: please make sure that you bring this to your appointment completed, either the doctor will notsee you until this completed or you may be asked to reschedule your appointment. No: mail to the pt and explain, please make sure that you bring this to your appointment completed,either the doctor will not see you until this completed or you may be asked to reschedule your appointment. ~If pt coming early to fill packet out, ask that they come 30 minutes prior to their appointment~ Thank you for choosing [facility] and we look forward to seeing you at yourupcoming appointment documented in this encounter Plan of Treatment Not on filedocumented as of this encounter Visit Diagnoses Not on filedocumented in this encounter Care Teams Mold Technician Relationship Specialty Start Date End Date Justin Loya MD PCP - General Family Practice 02/19/11 [facility] [address] [place] [phone] documented as of this encounter
--- OUTSIDE RECORDS SUMMARY | 2022-06-23 17:46 | XMS_ITS | Encounter Summary ---
:1990 Author Organization [place] Address [facility] [place] [address] Care Team Providers Name Role Phone Justin Loya MD Primary Care Provider Encounter Details Date Type Department Care Team Description 02/19/2011 Anesthesia Event M [facility] Karin Hernandez MD PeriOp Services [address] [facility] [address] [place] [address] [place] [address] [phone] Anesthesia Record Procedure Summary Procedure Name Responsible Anesthesia Start Anesthesia Stop Time Anesthesiologist Time L5-S1 (Left: Spine) 02/19/11 0725 02/19/11 085 5 Events Date Time Event Comment 02/19/2011 0725 An Start 0855 An Stop Name Total clindamycin 900 mg/50mL 900 mg buffered lidocaine 1% 0.5 mL Agents No agents on file. Blood No blood administrations on file. Lines, Drains, and Airways Type Details Placement Removal Peripheral IV 02/19/11; 0715; 18 G; 02/19/11 0715 by 02/19/11 1152 by Left; Hand; Alcohol; Juno Dowling Susan Injectable; (Pt became SANDY Rehman CRNA, RN vagal during insertion) RETIRED ETT 02/19/11; 0734; Airway 02/19/11 0734 by 05/08/17 2230 by Size: 7; Cuffed; Oral Juno Dowling, Ellyn robledo endotracheal tube; Blade SANDY Rehman CRNA, RN Type: Martinez; Blade Size: 2; Place by: Nitesh REED; Insertion Attempts: 1; Secured at (cm)to lip: 20 cm; Breath Sounds: Equal, clear and bilateral; End Tidal CO2: Present; Dentition: Intact; Grade View of Cords: 1 Incision/Surgical Site 02/19/11; 08; 02/19/11 0808 by 05/08/17 2230 by Posterior, Left, Lower; Aamir Linares RN Yunki n, Indira Back; 05/08/17; 2229 ALDO Mcgregor Retired Non-Surgical End of therapy 02/19/11 0844 by 02/19/11 0 840 by Airway Juno Dowling APRN CR NA documented in this encounter Social History Tobacco Use Types Packs/Day Years Used Date Smoking Tobacco: Never Alcohol Use Standard Drinks/Week Comments No 0 (1 standard drink = 0.6 oz pure alcoho l) Sex Assigned at Date Recorded Not on file documented as of this encounter OR Notes Anesthesia Postprocedure Evaluation - Hu Alex - 02/19/2011 10:05 AM CDT Anesthesia Post-Evaluation Note Patient: Destiney Farris Patient location: PACU Procedure(s) Performed: DECOMPRESSION LUMBAR MINIMALLY INVASIVE ONE LEVEL - L5-S1 Anesthesia type: General Patient Condition Respiratory Function (RR / SpO2 / Airway Patency): Satisfactory. Cardiac Function (HR / Rhythm / BP): Satisfactory. Mental Status: Satisfactory. Temperature: Satisfactory. Pain Control: Satisfactory. PONV: None/treated. Beta-Jose Therapy: None Indicated. Last Vitals: Filed Vitals: 02/19/11 0915 02/19/11 0930 02/19/11 0945 BP: 127/89 127/79 122/65 Temp: 97.7 ??F (36.5 ??C) Resp: SpO2: 100% 97% 97% Additional Comments: Post-op assessment: No apparent anesthetic complications. Post-op diagnosis: * No post-op diagnosis entered * Complications: None. Anesthesia Preprocedure Evaluation - Karin Hernandez - 02/19/2011 6:46 AM CDT Anesthesia Evaluation history and physical reviewed . Pt has had prior anesthetic. Type: General No hx of anesthetic complications ROS/MED HX Pulmonary: - neg pulmonary ROS Neurologic: - neg neurologic ROS Cardiovascular: - neg cardiovascular ROS METS/Exercise Tolerance: Hematologic: - neg hematologic ROS Musculoskeletal: - neg musculoskeletal ROS GI/Hepatic: - neg GI/hepatic ROS Renal: - neg renal ROS Endo: - neg endo ROS Psychiatric: - neg psychiatric ROS Infectious Disease: - neg infectious disease ROS Other: - neg other ROS Physical Exam Normal systems: cardiovascular, pulmonary and dental Airway Mallampati: I TM distance: >3 FB Neck ROM: full Dental Cardiovascular Pulmonary Anesthesia Plan ASA Score 1 . Plan for General and ETT with Intravenous induction. Maintenance will be Inhalation. Routine analgesia and antiemetics to be used for post- operative care. Anesthetic plan, risks, benefits and alternatives discussed with: patient or wholesale representative. . ANESTHESIA PREOP EVALUATION NPO Status: NPO Procedure: DECOMPRESSION LUMBAR MINIMALLY INVASIVE ONE LEVEL - L5-S1 HPI: see notes PMHx/PSHx/ROS: PAST MEDICAL HISTORY: Past Medical History Diagnosis Date ??? Insomnia ??? Back pain, low AND LEFT LEG PAIN PAST SURGICAL HISTORY: Past Surgical History Procedure Date ??? Tonsillectomy ??? [place] teeth ??? Myringotomy, insert tube bilateral, combined FAMILY HISTORY: No family history on file. Past Anes Hx: No personal or family h/o anesthesia problems Soc Hx: History Social History ??? Marital Status: Single Spouse Name: N/A Number of Children: N/A ??? Years of Education: N/A Social History Main Topics ??? Smoking status: Never Smoker ??? Smokeless tobacco: Not on file ??? Alcohol Use: No ??? Drug Use: No ??? Sexually Active: Not on file Other Topics Concern ??? Not on file Social History Narrative ??? No narrative on file Allergies: Allergies Allergen Reactions ??? Penicillin G Hives SWELLING FEET AND HANDS ??? Cefzil (Cefprozil) Hives SWEILLING FEET AND HANDS Meds: Prescriptions prior to admission Medication Sig Dispense Refill ??? diphenhydrAMINE (BENADRYL) 25 MG tablet Take 50 mg by mouth nightly as needed. ??? acetaminophen (TYLENOL) 500 MG tablet Take 1-2 tablets by mouth every 6 hours as needed. ??? ibuprofen (ADVIL,MOTRIN) 200 MG tablet Take 600 mg by mouth every 4 hours as needed. ??? diphenhydrAMINE (BENADRYL) 25 MG tablet Take 25 mg by mouth every 6 hours as needed. Current facility-administered medications Medication ??? clindamycin (CLEOCIN) IVPB 900 mg ??? clindamycin (CLEOCIN) IVPB 900 mg ??? Lidocaine 1% injection 1 mL ??? lidocaine 4 % (LMX4) cream ??? sodium chloride 0.9 % flush 3 mL ??? sodium chloride 0.9 % flush 3 mL ??? lactated ringers infusion Physical Exam: VS: T 98.2, P Data Unavailable, BP 132/85, R 18, SpO2 , Weight Wt Readings from Last 2 Encounters: 02/19/11 58.5 kg (128 lb 15.5 oz) 02/19/11 58.5 kg (128 lb 15.5 oz) Airway: MP 1, TM>3FB, Neck full ROM Dentition: no loose teeth Heart: RRR Lungs: CTAB BMP: No results found for this basename: na No results found for this basename: potassium No results found for this basename: chloride No results found for this basename: luis No results found for this basename: co2 No results found for this basename: BUN No results found for this basename: CR No results found for this basename: glc CBC: No results found for this basename: WBC No results found for this basename: hgb No results found for this basename: hct No results found for this basename: plt Coags/Type and Screen No results found for this basename: INR No results found for this basename: PT Type and Screen: Assessment/Plan: - ASA 1 - GETA with standard ASA monitors, IV induction, balanced anesthetic - PIV - Antibiotics per surgery - PONV prophylaxis - Blood products available, possible administration discussed with patient Karin Hernandez MD 02/19/2011 6:47 AM documented in this encounter Miscellaneous Notes Anesthesia Care Transfer Note - Juno Dowling APRN MANAGER PEDIATRIC - 02/19/2011 8:54 AM CDT Anesthesia Care Transfer Note Patient: Destiney Farris Transferred to: PACU Patient vital signs: stable Airway: none documented in this encounter Plan of Treatment Not on filedocumented as of this encounter Visit Diagnoses Not on filedocumented in this encounter Administered Medications Inactive Administered Medications - up to 3 most recent administrations Medication Order MAR Action Action Date Dose Rate Site clindamycin (CLEOCIN) IVPB Given 02/19/2011 7:35 AM CDT 900 mg Routine, PRN, Starting on Thu02/19/11 at 0735, Anesthesia Intra-op lidocaine BUFFERED 1 % solution Given 02/19/2011 7:15 AM CDT 0.5 mLs PRN, Starting on Thu02/19/11 at 0715, Anesthesia Intra-op documented in this encounter Care Teams Pants Maker Relationship Specialty Start Date End Date Justin Loya MD PCP - General Family Practice 02/19/11 [facility] [address] [place] [phone] documented as of this encounter
--- OUTSIDE RECORDS SUMMARY | 2022-06-23 17:46 | XMS_ITS | Encounter Summary ---
:1990 Author Organization [place] Address [address] [facility] [place] [address] Care Team Providers Name Role Phone Justin Loya MD Primary Care Provider Silas Santiago MD Unavailable Reason for Visit Reason Onset Date Comments Pain 11/29/2013 Encounter Details Date Type Department Care Team Description 11/29/2013 Telephone Neurology Clinic Raya Vee RN Pain [facility] 1st Floor, Clinic [address]A [address] [place] [phone] Social History Tobacco Use Types Packs/Day Years Used Date Smoking Tobacco: Never Smokeless Tobacco: Never Alcohol Use Standard Drinks/Week Comments No 0 (1 standard drink = 0.6 oz pure alcoho l) Sex Assigned at Date Recorded Not on file documented as of this encounter Miscellaneous Notes Telephone Encounter - Raya Vee RN - 11/29/2013 12:42 PM CDT Patient notified that Dr. Unger ordered Tramadol 50 mg every 8 hours as needed for moderate pain. This was sent to the [facility] in [place]. She is currently out of state and informed that she can contact her local [facility] and they can pull the prescription electronically and fill it for her. She will try reducing her morning dose of Gabapentin to 300mg to ease her sleepiness during the day, but remain on 600mg in the evening. She will contact the clinic for further needs. Telephone Encounter - Valentín Unger MD - 11/29/2013 12:07 PM CDT Ok, will order tramadol 50 mg q8 hours as needed for 1 month. Telephone Encounter - Raya Vee RN - 11/29/2013 11:50 AM CDT Destiney called requesting a short acting pain reliever such as Tramadol. She is having severe pain that is effecting her daily functioning and sleep. She has made an appointment with Dr. Santiago at the [facility] next week. She reports the increased Gabapentin makes her drowsy and confused and is not helping the pain. Message sent to Dr. Unger for short term pain reliever until she is seen at the pain clinic. documented in this encounter Plan of Treatment Not on filedocumented as of this encounter Visit Diagnoses Diagnosis Neuropathic pain - Primary Neuralgia, neuritis, and radiculitis, un specified documented in this encounter Care Teams Building Analyst/Supervisor Relationship Specialty Start Date End Date Justin Loya MD PCP - General Family Practice 02/19/11 [facility] [address] [place] [phone] Silas Santiago MD MD Pain Clinic 11/29/13 [facility] [address] [place] [address] documented as of this encounter
--- OUTSIDE RECORDS SUMMARY | 2022-06-23 17:46 | XMS_ITS | Encounter Summary ---
:1990 Author Organization [place] Address [address] [facility] [place] [address] Care Team Providers Name Role Phone Justin Loya MD Primary Care Provider Reason for Referral - Closed Specialty Diagnoses / Procedures Referred By Contact Refer red To Contact Diagnoses Small fiber neuropathy Valentín Unger Procedures Glucose tolerance std non preg MD Tariq [address] [place] [address], [place] [address] Referral ID Status Reason Start Date Expiration Date Visits Requ ested Visits Authorized [id number] Closed 11/23/2013 05/22/2014 1 1 Reason for Visit Reason Comments New Eval For Contact Lens neuropathy Encounter Details Date Type Department Care Team Description 11/23/2013 Office Visit Neurology Clinic Devin Unger n europathy (Primary Building Dx) 1st Floor, Clinic [address] [place] [id number] [phone] Social History Tobacco Use Types Packs/Day Years Used Date Smoking Tobacco: Never Smokeless Tobacco: Never Alcohol Use Standard Drinks/Week Comments No 0 (1 standard drink = 0.6 oz pure alcoho l) Sex Assigned at Date Recorded Not on file documented as of this encounter Last Filed Vital Signs Vital Sign Reading Time Taken Comments Blood Pressure 118/77 11/23/2013 10:37 AM CDT Pulse 85 11/23/2013 10:37 AM CDT Temperature - - Respiratory Rate - - Oxygen Saturation - - Inhaled Oxygen Concentration - - Weight 54.4 kg (120 lb) 11/23/2013 10:37 AM CDT Height 170.2 cm (5' 7) 11/23/2013 10:37 AM CDT Body Mass Index 18.79 11/23/2013 10:37 AM CDT documented in this encounter Patient Instructions Patient InstructionsRaya Vee RN - 11/23/2013 11:33 AM CDT 1) Lab studies today. 2) Skin biopsy today. Results will be available in one month. 3) Lidocaine patches. Prescription sent to [facility] in [place]. 4) 2 hour glucose tolerance test. 5) Continue to follow with Dr. Li. Dr. Unger will send a letter to her with recommendations and test results. documented in this encounter Progress Notes Valentín Unger MD - 11/23/2013 12:45 PM CDT November 23, [address] [facility] [address] [place] [address] RE: Destiney Farris : [address] Loya: I had the pleasure to see Destiney Farris at the [facility] for another opinion on her condition. As you well know, she is a pleasant 22-year-old woman who has been experiencing burning in her feet for the last 2-1/2 to 3 months. However, she has had other uncomfortable sensations at her lower legs and feet for close to to 2 years. She had lower lumbar spine surgery withlaminotomy in 02/2012 and by 05/2012, about 3 months later, she noted paresthesias with electric shock like sensations, buzzing, or twitching from her feet all the way up to the knees or above. She was treated with gabapentin at that time, 300 mg in the evening and the paresthesias dissipated after a few months. However, they returned over the last 3 months and now there is a burning or stinging component, and the feet tend to get red when standing for a prolonged period of time. She also developed spontaneous cold or hot sensations which are uncomfortable. She has chronic anxiety and oftenhyperventilates which causes exacerbation of tingling in all 4 limbs. However, she denies any significant orthostatic intolerance, signs of gastroparesis, dry mouth or dry eyes, and incontinence of bowel or bladder. She does have an occasional uncomfortable sensation at the lower abdominal wall and external genitals, which can be numb, tingly or burning from time to time and it is not always alleviated by bowel movements. She has symptoms of irritable bowel with alternating constipation and diarrheafor quite some time. There is no blood in the stool , weight loss or nausea. She has no skin rashes and no constitutional symptoms recently. She was operated for a herniated disk and she had repeated MRIs of the lumbar spine thereafter because of concerns for arachnoiditis which fortunately is not the case. She also has an intermittent sciatica like pain radiating from her left buttock posteriorly to the foot which is not that bothersome. She now takes 600 mg of gabapentin in the evening. She has never taken this medication in the morningor at noon, due to sedation side effects. She also attempted one time nortriptyline 10 mg which created a hangover effect the next morning and she did not take another pill. You have discussed the possibility of using Cymbalta or Lyrica or topicals with her. Review of her medical records indicates that she had 2 normal EMG and nerve conduction studies, one at [facility] this year on 11/08 andone previously at [facility] and she had labs done at least 2 times which showed a borderline low vitamin D level of 29 but normal following labs: B12, vitamin B6, B1, sed rate, CRP, the most recent NANCI titer, gliadin antibodies, Lyme serologies, and previously she had negative SSA, SSB antibodies, copper, hepatitis C serologies, thyroid function tests and comprehensive metabolic panel. Notably, she has not had a glucose evaluation. Her symptoms have been always symmetric and more prominent in thefeet, although in the past some electric shock like sensations had developed in her hands as well. She denies any double vision, ptosis, trouble swallowing, chewing or breathing, seizures, episodes of loss of consciousness, or changes in her taste. PAST MEDICAL HISTORY: Significant for chronic anxiety and back surgery, but is otherwise largely unremarkable. MEDICATIONS: 1. Gabapentin 600 mg once a day in the evening. 2. Tylenol p.r.n. 3. Valium 5 mg q. 6 hours p.r.n. REVIEW OF SYSTEMS: A 14-point review of systems is negative except for HPI. FAMILY HISTORY: Negative for symptoms of neuropathy. SOCIAL HISTORY: The patient does not smoke,and drinks one alcoholic drink per month at most. She graduated from college recently. 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 ALLERGIES: CEFZIL AND PENICILLIN, REACTION HIVES. PHYSICAL EXAMINATION: She is a pleasant, thin young lady in no apparent distress. VITAL SIGNS: Blood pressure is 118/77. Her pulse is 85 and regular. She weighs 54.4 kilos and heightis 170.2 cm. She endorses moderate pain at her feet and back. NEUROLOGIC: She is awake, alert and oriented x3. Cranial nerve examination II- XII are normal. Motor exam shows normal strength, tone and bulk everywhere. Reflexes are 3 brisk in biceps, triceps, brachioradialis, knees and ankles. There is vertical spread of reflexes at all sites. She does not have a prominent jaw jerk. Plantar responses are neutral. Foot tap is done very rapidly. There is no spasticity. Coordination is intact on [id number] and [id number]. Gait is normal on heel and toe walking. Romberg is negative. Vibration is exquisitely normal, 19 seconds at the right great toe, 22 at the left, 24+ seconds at the medial malleoli and 32 seconds at the left index finger. Joint position sense is normal everywhere. Pinprick and scratch sensation are reduced at the toes compared to the mid calves with quite reproducible distal to proximal gradient. Warm sensation is normal. In addition to the above results, she had an MRI of the cervical spine recently which was normal. 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 I think her exam shows a gradient of small fiber sensation from the distal foot to the proximal leg. We performed a skin biopsy today and I will inform her of the results in 3-4 weeks. I had a long discussion with Destiney for about 45 minutes or more, of which more than half was counseling. I explained to her that regardless of the skin biopsy result, it is important to continue efforts to find a potential cause for small fiber neuropathy. Along those lines, I will check a cryoglobulin, HIV antibody, rheumatoid factor, serum immunofixation and a sensory neuropathy antibody panel to be sent to [facility] in [place]. She should also have an oral glucose tolerance test. I explained to her that despite aggressive evaluation for a cause, up to 40% or more of small fiber neuropathies are idiopathic. If that is the case, management can only be symptomatic. Because she is experiencing the common side effects of drowsiness with2 medications she has tried so far, I will offer her lidocaine patch 5% every 12 hours. She should call me in about a month to tell me if this is working or not. Other topical solutions may be applicable here. Destiney expressed a wish to follow with Dr. Li as [facility] is more convenient for her geographically. I will inform her of the results of all the tests and I would be happy to see her in the future as needed. Sincerely, Valentín Unger MD cc: MD Dario Vega MD Kenneth Pallas, MD GEORGIOS E. MANOUSAKIS, MD MT: AKA Name: DESTINEY FARRIS Account: [id number] : 1990 Service Date: 11/23/2013 Document: [id number] documented in this encounter Nursing Notes Mariusz, Raya Whipple RN - 11/23/2013 1:36 PM CDT Biopsy site, left foot, cleaned and dressed with Bacitracin ointment, gauze and Coban self adhesive wrap. Reviewed skin biopsy discharge instructions and gave a copy to the pt. Pt states understanding.Will call if has any concerns or questions. Contact information given. Skin Biopsy Discharge Instructions You may remove the pressure wrap after 8 hours. Remove the gauze dressing in 24 hours and apply another bandage with Bacitracin ointment. Change thebandage and apply Bacitracin for 2 more days. Keep the site dry for 24 hours (cover with plastic in the shower, etc) and keep the biopsy site covered with a band-aid until a scab forms. The biopsy site will scab over and heal within a couple of weeks. Watch for signs and symptoms of infection: fever, redness, swelling, drainage or a lot of pain at the biopsy site(s). Call Neurology Clinic at [phone], to report any of these symptoms if they occur. If you have problems after clinic hours, please go to your local Urgent Care center or Emergency Room. Please call the nurse to report the problem after being seen. The biopsy results will be ready in 3-4 weeks. Raya Vee RN, BSN Integrity Manager Rin Vasquez - 11/23/2013 10:38 AM CDT Chief Complaint Patient presents with ??? New Eval For Contact Lens neuropathy Rin Vasquez CMA documented in this encounter Plan of Treatment Scheduled Orders Name Type Priority Associated Diagnoses Order S chedule Glucose tolerance std non Lab Routine Small fiber juan ropathy Ordered: 11/23/2013 preg documented as of this encounter Procedures Procedure Name Priority Date/Time Associated Comments Diagnosis SEND OUTS MISC TEST Routine 11/23/2013 12:16 Small fiber Resu lts for this PM CDT neuropathy procedure are i n the results section. HIV ANTIGEN ANTIBODY Routine 11/23/2013 12:15 Small fiber Res ults for this COMBO PM CDT neuropathy procedure are i n the results section. PROTEIN IMMUNOFIXATION Routine 11/23/2013 12:15 Small fiber R esults for this SERUM PM CDT neuropathy procedure are i n the results section. RHEUMATOID FACTOR Routine 11/23/2013 12:15 Small fiber Result s for this PM CDT neuropathy procedure are i n the results section. CRYOGLOBULIN Routine 11/23/2013 12:15 Small fiber Results for this QUANTITATIVE PM CDT neuropathy procedure are i n the results section. documented in this encounter Results Send outs misc test (11/23/2013 12:16 PM CDT) Analysis Performed At Patho logist Time Signature Lab Scanned SEND OUTS MISYS Result MISC TEST-Scann ed Specimen Anatomical Collection Method Collection Time Receive d Time (Source) Location / / Volume Laterality 11/23/2013 12:16 11/23/2013 PM CDT 12:17 PM CDT Valentín Unger MD LAB - BLOOD ORDERABLES Performing Organization Address City/State/ZIP Code Phon e Number MISYS Protein Immunofixation Serum (11/23/2013 12:15 PM CDT) Component Value Ref Test Analysis Performed At Patholo gist Range Method Time Signature Immunofixation No monoclonal protein seen o n immunofixation. ??Pathological significance [facility] requires clinical correlation. XIN Maradiaga M.D., Ph.D. [facility] IGG [phone] - [facility] 1,620 [place] mg/dL [facility] IGA 117 70 - 380 [facility] mg/dL [facility] IGM 219 60 - 265 [facility] mg/dL [facility] Specimen Anatomical Collection Method Collection Time Receive d Time (Source) Location / / Volume Laterality Blood specimen 11/23/2013 12:15 4 (specimen) PM CDT 12:16 PM CDT Valentín Unger MD LAB - BLOOD ORDERABLES Performing Organization Address City/State/ZIP Code Phon e Number [facility] [address] [place] [address] [facility] Rheumatoid factor (11/23/2013 12:15 PM CDT) P athologist Signature Rheumatoid <20 <20 IU/mL [facility] Specimen Anatomical Collection Method Collection Time Receive d Time (Source) Location / / Volume Laterality Blood specimen 11/23/2013 12:15 4 (specimen) PM CDT 12:16 PM CDT Valentín Unger MD LAB - BLOOD ORDERABLES Performing Organization Address City/State/ZIP Code Phon e Number [facility] [address] [place], [place] [phone] [place] [address] LABS HIV Antigen Antibody Combo (11/23/2013 12:15 PM CDT) [facility] Method Time Signature HIV Antigen Nonreactive NR [facility] Antibody HIV-1 p24 Ag & HIV-1/HIV-2 Ab Not Detected [facility] LABS Specimen Anatomical Collection Method Collection Time Receive d Time (Source) Location / / Volume Laterality Blood specimen 11/23/2013 12:15 4 (specimen) PM CDT 12:16 PM CDT Valentín Unger MD LAB - BLOOD ORDERABLES Performing Organization Address City/State/ZIP Code Phon e Number [facility] [address] [place], [place] [phone] [place] [address] LABS Cryoglobulin quantitative (11/23/2013 12:15 PM CDT) Component Value Ref Test Analysis Performed At [facility] Range Method Time Signature Cryoglobulin Negative NEG % [facility] No cryoprecipitate observed U [facility] Specimen Anatomical Collection Method Collection Time Receive d Time (Source) Location / / Volume Laterality Blood specimen 11/23/2013 12:15 4 (specimen) PM CDT 12:16 PM CDT Valentín Unger MD LAB - BLOOD ORDERABLES Performing Organization Address City/[facility]/ZIP Code Phon e Number [facility] [address] [place], [place] [phone] [place] [address] LABS documented in this encounter Visit Diagnoses Diagnosis Small fiber neuropathy - Primary Unspecified hereditary and idiopathic pe ripheral neuropathy documented in this encounter Care Teams Snow Fence Erector Relationship Specialty Start Date End Date Justin Loya MD PCP - General Family Practice 02/19/11 [facility] [address] [place] [phone] documented as of this encounter
--- OUTSIDE RECORDS SUMMARY | 2022-06-23 17:46 | XMS_ITS | Encounter Summary ---
:1990 Author Organization [place] Address [address] [facility] [place] [address] Care Team Providers Name Role Phone Unavailable Primary Care Provider Unavailable Encounter Details Date Type Department Care Team Description 05/24/2008 Results Only [facility] Julieta Espinosa MD Hospital Results [facility] [address] [place], [place] [phone] (Wo rk) Social History Tobacco Use Types Packs/Day Years Used Date Smoking Tobacco: Never Assessed Sex Assigned at Date Recorded Not on file documented as of this encounter Plan of Treatment Not on filedocumented as of this encounter Procedures Procedure Name Priority Date/Time Associated Comments Diagnosis MAMMO DIAGNOSTIC Routine 05/24/2008 1:36 PM Re sults for this BILATERAL, INCL CAD REAL ESTATE ECONOMIST procedur e are in WHEN PERF the results section. ULTRASOUND Routine 05/24/2008 1:15 PM Results for this BREAST(S) REAL ESTATE ECONOMIST procedure are i n (UNILATERAL OR the results BILATERAL), REAL section. TIME W IMAGE documented in this encounter Results DIAGNOSTIC MAMMOGRAPHY DIGITAL (BILAT) (05/24/2008 1:36 PM REAL ESTATE ECONOMIST) Anatomical Region Laterality Modality Other Specimen (Source) Anatomical Collection Method Collection Time Re ceived Time Location / / Volume Laterality 05/24/2008 1:36 PM REAL ESTATE ECONOMIST Impressions 05/24/2008 1:37 PM REAL ESTATE ECONOMIST Diagnostic digital right mammogram. Righ t breast ultrasound unilateral young. HISTORY: Tender palpable lump upper-oute r right breast. ?? PREVIOUS MAMMOGRAPHY: None. Baseline. ?? BREAST PARENCHYMAL PATTERN: ??Extremely dense. FINDINGS: The right mammogram is normal. No mammographic or sonographic abnormality identified in th e upper-outer right breast in the region of the BB placed over the foc al tender lump. There is extremely dense breast tissue in this re gion. Any further evaluation should be based on clinical findings and clinical suspicion. IMPRESSION: ??BI-RADS 1, NEGATIVE. ? Note: ??CAD (computer aided diagnosis) w as utilized in interpretation of this mammogram. Julieta Espinosa MD SPECIAL IMAGING STUDIES SONO BREAST (05/24/2008 1:15 PM REAL ESTATE ECONOMIST) Anatomical Region Laterality Modality Other Specimen (Source) Anatomical Collection Method Collection Time Re ceived Time Location / / Volume Laterality 05/24/2008 1:15 PM REAL ESTATE ECONOMIST Impressions 05/24/2008 1:37 PM REAL ESTATE ECONOMIST Diagnostic digital right mammogram. Righ t breast ultrasound unilateral young. HISTORY: Tender palpable lump upper-oute r right breast. ?? PREVIOUS MAMMOGRAPHY: None. Baseline. ?? BREAST PARENCHYMAL PATTERN: ??Extremely dense. FINDINGS: The right mammogram is normal. No mammographic or sonographic abnormality identified in th e upper-outer right breast in the region of the BB placed over the foc al tender lump. There is extremely dense breast tissue in this re gion. Any further evaluation should be based on clinical findings and clinical suspicion. IMPRESSION: ??BI-RADS 1, NEGATIVE. ? Note: ??CAD (computer aided diagnosis) w as utilized in interpretation of this mammogram. Julieta Espinosa MD SPECIAL IMAGING STUDIES documented in this encounter Visit Diagnoses Not on filedocumented in this encounter
--- OUTSIDE RECORDS SUMMARY | 2022-06-23 17:46 | XMS_ITS | Encounter Summary ---
:1990 Author Organization [place] Address [address] [facility] [place] [address] Care Team Providers Name Role Phone Justin Loya MD Primary Care Provider Reason for Visit Auth/Cert - Closed Specialty Diagnoses / Procedures Referred By Contact Refer red To Contact Surgery Diagnoses Stenosis, Herniated Disc Ur Periop Procedures DECOMPRESSION LUMBAR MINIMALLY INVASIVE ONE LEVEL [address] [place] [address] Phone: Fax: Referral ID Status Reason Start Date Expiration Date Visits Requ ested Visits Authorized [id number] Closed 02/07/2011 08/06/2011 1 1 Encounter Details Date Type Department Care Team Description 02/19/2011 Hospital Encounter UR PACU [place], Lumbar radiculopathy [address] [place], [place] [facility] [address] [address] [phone] [id number] Social History Tobacco Use Types Packs/Day Years Used Date Smoking Tobacco: Never Alcohol Use Standard Drinks/Week Comments No 0 (1 standard drink = 0.6 oz pure alcoho l) Sex Assigned at Date Recorded Not on file documented as of this encounter Last Filed Vital Signs Vital Sign Reading Time Taken Comments Blood Pressure 122/74 02/19/2011 11:57 AM CDT Pulse - - Temperature 36.9 ??C (98.4 ??F) 02/19/2011 11:57 AM CDT Respiratory Rate 16 02/19/2011 11:57 AM CDT Oxygen Saturation 98% 02/19/2011 11:57 AM CDT Inhaled Oxygen Concentration - - Weight 58.5 kg (128 lb 15.5 oz) 02/19/2011 6:26 AM CDT Height 167.6 cm (5' 6) 02/19/2011 6:26 AM CDT Body Mass Index 20.82 02/19/2011 6:26 AM CDT documented in this encounter Discharge Instructions Discharge InstructionsMiracle King - 02/19/2011 9:19 AM CDT [facility] [place] [facility] Adult Discharge Orders & Instructions For 24 hours after surgery 1. Get plenty of rest. A responsible adult must stay with you for at least 24 hours after you leave the hospital. 2. Do not drive or use heavy equipment. If you have weakness or tingling, don't drive or use heavy equipment until this feeling goes away. 3. Do not drink alcohol. 4. Avoid strenuous or risky activities. Ask for help when climbing stairs. 5. You may feel lightheaded. IF so, sit for a few minutes before standing. Have someone help you getup. 6. If you have nausea (feel sick to your stomach): Drink only clear liquids such as apple juice, toshia rachel, broth or 7-Up. Rest may also help. Be sure to drink enough fluids. Move to a regular diet asyou feel able. 7. You may have a slight fever. Call the doctor if your fever is over 100??F (37.7??C) (taken under the tongue) or lasts longer than 24 hours. 8. You may have a dry mouth, a sore throat, muscle aches or trouble sleeping. These should go away after 24 hours. 9. Do not make important or legal decisions. Call your doctor for any of the followin. Signs of infection (fever, growing tenderness at the surgery site, a large amount of drainage or bleeding, severe pain, foul-smelling drainage, redness, swelling). 2. It has been over 8 to 10 hours since surgery and you are still not able to urinate (pass water). 3. Headache for over 24 hours. 4. Numbness, tingling or weakness the day after surgery (if you had spinal anesthesia). To contact a doctor, call or: ??? [phone] and ask for the resident singer songwriter for (answered 24 hours a day) ??? Emergency Department: [facility]: [phone] (TTY for hearing impaired: [phone]) [facility]: [phone] (TTY for hearing impaired: [phone]) documented in this encounter Medications at Time of Discharge Medication Sig Dispensed Refills Start Date End Date acetaminophen (TYLENOL) 500 Take 1-2 tablets 0 05/20/2017 MG tablet by mouth every 6 hours as needed. diazepam (VALIUM) 5 MG Take 1 tablet by 30 tablet 0 011 10/12/2017 tabletIndications: Lumbar mouth every 6 radiculopathy hours as needed (spasm). diphenhydrAMINE (BENADRYL) Take 50 mg by 0 11/23/2013 25 MG tablet mouth nightly as needed. oxycodone-acetaminophen Take 1-2 tablets 60 tablet 0 201011/23/2013 (PERCOCET) 5-325 MG per by mouth every 4 tabletIndications: Lumbar hours as needed radiculopathy for pain. senna-docusate Take 1-2 tablets 30 tablet 0 02/19/2011 05/0 01/2014 (SENOKOT-S;PERICOLACE) by mouth 2 times 8.6-50 MG per daily. tabletIndications: Lumbar radiculopathy documented as of this encounter H&P Notes Kaye Sun - 02/18/2011 8:30 AM CDT documented in this encounter Nursing Notes Miracle King - 02/19/2011 10:44 AM CDT Report to Nahed Cheatham RN Dali Patricio RN - 02/19/2011 6:52 AM CDT Patient has her period right now and denies being sexually active. documented in this encounter OR Notes OR Anesthesia - Kaye Sun - 02/27/2011 10:52 AM CDT documented in this encounter Miscellaneous Notes Brief Op Note - Kaye Sun - 02/19/2011 8:52 AM CDT [facility] Orthopedic Brief Operative Note Pre-operative diagnosis: Stenosis, Herniated Disc left L5-S1 Post-operative diagnosis: Same Procedure: MAST decompression Left L5-S1 Surgeon: KAYE SUN Air Transportation Provider(s): Sally Forbes PA-C Anesthesia: General endotracheal anesthesia Estimated blood loss: Less than 10 ml Total IV fluids: (See anesthesia record) Blood transfusion: No transfusion was given during surgery Total urine output: (See anesthesia record) Drains: None Specimens: None Implants: None Findings: See dictated op note Complications: None Condition: Stable Weight bearing status: Weight bearing as tolerated Activity: Activity as tolerated Patient may move about with assist as indicated or with supervision Orthotic management: Not applicable Comments: See dictated operative report for full details Op Note - Kaye Sun - 02/19/2011 8:33 AM CDT STAFF SURGEON: Kaye Sun MD CHIEF INVESTIGATOR: Sally T. Leidy, PA-C PREOPERATIVE DIAGNOSIS: Stenosis left L5-S1 with clinical S1 radiculopathy. POSTOPERATIVE DIAGNOSIS: Stenosis left L5-S1 with clinical S1 radiculopathy. PROCEDURE: Minimally invasive quadrant assisted decompression left L5-S1. ANESTHESIA: General endotracheal. INDICATIONS: Ms. Destiney Farris is a 20-year-old female who suffered longstanding left lower extremity pain. Her symptoms have been refractory to all nonoperative care. She has had selective nerve rootblocks S1 which did give temporary relief of symptoms. However, since she continues to be symptomatic, she does wish to proceed on with surgical management. She has had preoperative MRI and CT scan which does confirm lateral recess stenosis at L5-S1 with medial displacement of the S1 nerve root. 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 She does have evidence of spondylolisthesis with spondylolisthesis. Based on her symptoms, she does wish to proceed on with surgery as described below. Risks of this procedure were clearly identified including and not limited to infection, dural laceration requiring repair, battered nerve root syndrome, failure of alleviation of symptoms, need for additional surgical management, instability patterns, visceral injury, vascular injury and normal neurologic sequelae as well as any and all general anesthetic risks. Informed consent was signed. OPERATIVE PROCEDURE: The patient was taken to the operating room and a general anesthetic was administered. Appropriate preoperative antibiotics were administered. Pneumatic compression stockings were applied to the lower extremities bilaterally. She was next positioned prone on the Gopal-Artem frame with all bony prominences protected. Her back was then prepped and draped in normal sterile fashion. A timeout was initiated. This was followed by C-arm guided skin incision. This 2.5 cm vertical incision was made midline at L5-S1. Incision was continued down through the subcutaneous tissue until the fascia was identified. Fascia was incised longitudinally. The METRx dilators were used and finally the quadrant retractor system was placed. Levels were again confirmed radiographically. Small amount of S1 lamina was next resected. The interlaminar space was clearly identified. The ligamentum flavum was released and then resected from lateral to medial. This did allow for identification of the S1 ner ve root. This nerve root was certainly displaced medially as seen preoperatively on MRI and CT scan.Subarticular region was next decompressed. There was small piece of bone attached to the medial wallof the facet joint, again which was seen on CT scan. This was resected to completely decompress the lateral recess. The foramen at L5-S1 was also palpated to ensure there was no additional debris on this neural elements. At this point, copious amounts of normal saline irrigation was utilized. Closure was initiated with 0 Vicryl to close the fascia. A 2-0 Vicryl was used to reapproximate the subcutaneous tissue and finally the skin was closed with Dermabond. The patient tolerated the procedure well without any intraoperative complications. Estimated blood loss was 10 mL. All sponge counts were correct. KAYE SUN MD MT: DINAH Name: DESTINEY FARRIS Account: [id number] : 1990 Procedure Date: 02/19/2011 Document: [id number] cc: [facility] documented in this encounter Plan of Treatment Pending Results Name Type Priority Associated Diagnoses Date/Ti me X-ray Surgery BABATUNDE L/T 5 Imaging Timed 09/2010 8:45 AM CDT Min Fluoro documented as of this encounter Procedures Procedure Name Priority Date/Time Associated Comments Diagnosis XR SURGERY BABATUNDE Timed 02/19/2011 8:45 AM FLUORO LESS THAN 5 CDT MIN DECOMPRESSION, 02/19/2011 7:14 AM Stenosis, Herniated SPINE, LUMBAR, CDT Disc MINIMALLY INVASIVE, 1 LEVEL HEMOGLOBIN STAT 02/19/2011 7:10 AM Results f or this CDT procedure are i n the results section. ABO/RH TYPE AND STAT 02/19/2011 7:10 AM Result s for this SCREEN CDT procedure are i n the results section. documented in this encounter Results ABO/Rh type and screen (02/19/2011 7:10 AM CDT) Analysis Performed At Patho logist Time Signature ABO A [facility] RH(D) Pos [facility] Antibody Neg [facility] Screen [place] [facility] Specimen 02/22/2011 [facility] Expires [place] [facility] Specimen Anatomical Collection Method Collection Time Receive d Time (Source) Location / / Volume Laterality Blood specimen 02/19/2011 7:10 AM 011 7:21 (specimen) CDT AM CDT Karin Hernandez MD LAB - BLOOD BANK TEST ORDER Performing Organization Address City/State/ZIP Code Phon e Number [address] [address] [facility] Hemoglobin (02/19/2011 7:10 AM CDT) athologist Signature Hemoglobin 13.7 11.7 - 15.7 [facility] g/dL LAB Specimen Anatomical Collection Method Collection Time Receive d Time (Source) Location / / Volume Laterality Blood specimen 02/19/2011 7:10 AM 011 7:21 (specimen) CDT AM CDT Karin Hernandez MD LAB - BLOOD ORDERABLES Performing Organization Address City/[facility] Code Phon e Number [address] [address] [facility] documented in this encounter Visit Diagnoses Diagnosis Lumbar radiculopathy Thoracic or lumbosacral neuritis or radi culitis, unspecified documented in this encounter Administered Medications Inactive Administered Medications - up to 3 most recent administrations Medication Order MAR Action Action Date Dose Rate Site fentanyl (SUBLIMAZE) injection Given 02/19/2011 9:08 AM CDT 50 m cg 25-50 mcg 25-50 mcg, Intravenous, EVERY 2 MIN PRN, other, acute pain, Starting on Thu02/19/11 at 0852, MAX cumulative dose = 250 mcg. Use Fentanyl initially, as a short acting agent for acute pain control. If insufficient, or a longer acting agent is needed, begin Morphine or Hydromorphone if ordered., PACU Given 02/19/2011 9:03 AM CDT 25 mcg Given 02/19/2011 8:55 AM CDT 25 mcg HYDROmorphone (DILAUDID) injection 0.2-0 .4 mg Given 02/19/2011 9:31 AM CDT 0.2 mg 0.2-0.4 mg, Intravenous, EVERY 5 MIN PRN, moderate to severe pain, acute pain. May administer if RR is > 10 , Starting on Thu02/19/11 at 0852, If fentanyl is also ordered, use HYDROmorphone if pain control insufficient with fentanyl or a longer acting agent is needed. Max cumulative dose = 2 mg , PACU ondansetron (ZOFRAN) injection 4 mg Given 02/19/2011 10:07 AM CDT 4 mg 4 mg, Intravenous, EVERY 30 MIN PRN, nausea, Administer over 5 Minutes, Starting on Thu02/19/11 at 0852, For 2 doses, MAX total dose = 8 mg, including OR dosing. If not resolved in 15 minutes, then go to step 2 (Prochlorperazine if ordered)., PACU/Phase II oxycodone-acetaminophen (PERCOCET) 5-325 Given 02/19/2011 10 :31 AM CDT 1 tablet MG per tablet 1-2 tablet 1-2 tablet, Oral, ONCE, On Thu02/19/11 at 1030, For 1 dose, prior to discharge, Post-procedure documented in this encounter Active and Recently Administered Medications Times are shown in CDT. Scheduled Medication Order 02/17/2011 02/18/2011 02/19/2011 oxycodone-acetaminophen (PERCOCET) 5-325 MG per tablet 1-2 table t (COMPLETED) 1031 (Given - Provider: Miracle King) 1-2 tablet, Oral, ONCE, On Thu02/19/11 at 1030, For 1 dose, prior to discharge, Post-procedure PRN Medication Order 02/17/2011 02/18/2011 02/19/2011 BUPivacaine 0.5 % - EPInephrine 1:200,000 injection (CANCELED) 0835 (Given - Provider: Sally Forbes) PRN, Starting Thu02/19/11 at 0835, Intra-procedure fentanyl (SUBLIMAZE) injection 25-50 mcg (CANCELED) 0855 (Given - Provider: Miracle King)0903 (Given - Provider: Miracle King)0908 (Given - Provider: Miracle King) 25-50 mcg, Intravenous, EVERY 2 MIN PRN, other, acute pain, Starting Thu02/19/11 at 0852, MAX cumulative dose = 250 mcg. Use Fentanyl initially, as a short acting agent for acute pain control. If insuffi cient, or a longer acting agent is neede d, begin Morphine or Hydromorphone if ordered., PACU HYDROmorphone (DILAUDID) injection 0.2-0.4 mg (CANCELED) 0931 (Given - Provider: Miracle King) 0.2-0.4 mg, Intravenous, EVERY 5 MIN PRN , Starting Thu02/19/11 at 0852, Until Thu02/19/11 at 1401, moderate to severe pain, acute pain. May administer if RR is > 10 , PACU, If fentanyl is also ordered, use HYDROmorphone if pain control insuf ficient with fentanyl or a longer acting agent is needed. Max cumulative dose = 2 mg ondansetron (ZOFRAN) injection 4 mg (CANCELED) 1007 (Given - Provider: Miracle King) 4 mg, Intravenous, EVERY 30 MIN PRN, [place], for 5 Minutes, Starting Thu02/19/11 at 0852, For 2 doses, MAX total dose = 8 mg, including OR dosing. If not resolved in 15 minutes, then go to step 2 (Prochlorperazine if ordered)., PACU/Phase II thrombin 10,000 units, microfibillar collagen mL (INSTAT) (CANCE LED) 0845 (Given - Provider: Kaye Sun) PRN, Starting Thu02/19/11 at 0845, Intra-procedure thrombin 5000 UNIT topical solution (CANCELED) 1048 (Given - Provider: Kaye Sun - Comment: USED TOPICALLY ON COTTONOIDS) PRN, Starting Thu02/19/11 at 1048, Apply to , Intra-procedure documented in this encounter Care Teams Ocean Fishing Guide Relationship Specialty Start Date End Date Justin Loya MD PCP - General Family Practice 02/19/11 [facility] [address] [place] [address] documented as of this encounter
--- OUTSIDE RECORDS SUMMARY | 2022-06-23 17:46 | XMS_ITS | Encounter Summary ---
:1990 Author Organization [place] Address [address] [facility] [place] [address] Care Team Providers Name Role Phone Justin Loya MD Primary Care Provider Reason for Visit Auth/Cert - Closed Specialty Diagnoses / Procedures Referred By Contact Refer red To Contact Surgery Diagnoses Stenosis, Herniated Disc Ur Periop Procedures DECOMPRESSION LUMBAR MINIMALLY INVASIVE ONE LEVEL [address] [place] [address] Phone: Fax: Referral ID Status Reason Start Date Expiration Date Visits Requ ested Visits Authorized [id number] Closed 02/07/2011 08/06/2011 1 1 Encounter Details Date Type Department Care Team Description 02/19/2011 [facility] PeriOp Sc Kaye mcclelland MD L5-S1 Services [facility] [address] [facility] [address] [place] [address] [place] [address] [phone] (Wo rk) Surgery Details Date/Time Status Location OR Service Patient Case Case Traum a Class Class Type Case? 02/19/11 7:30 Posted UR OR UR OR Orthopedics Same Day AM 14 Surgery Panel 1 Procedure LRB Anes Op Region Wound Class Commen ts L5-S1 Left General Spine I-Clean L5-S1 Surgeon Surgeon Role Service Panel Kaye Sun MD Primary Orthopedics 1 Sally Fischer PA-C Production Broaching Machine Operator Authorizat nasrin 1 documented in this encounter Social History Tobacco Use Types Packs/Day Years Used Date Smoking Tobacco: Never Alcohol Use Standard Drinks/Week Comments No 0 (1 standard drink = 0.6 oz pure alcoho l) Sex Assigned at Date Recorded Not on file documented as of this encounter Last Filed Vital Signs Vital Sign Reading Time Taken Comments Blood Pressure 119/49 02/19/2011 9:00 AM CDT Pulse - - Temperature 36.5 ??C (97.7 ??F) 02/19/2011 8:47 AM CDT Respiratory Rate 14 02/19/2011 9:00 AM CDT Oxygen Saturation 100% 02/19/2011 9:00 AM CDT Inhaled Oxygen Concentration - - Weight 58.5 kg (128 lb 15.5 oz) 02/19/2011 6:26 AM CDT Height 167.6 cm (5' 6) 02/19/2011 6:26 AM CDT Body Mass Index 20.82 02/19/2011 6:26 AM CDT documented in this encounter Discharge Instructions Discharge InstructionsDuMiracle redmond - 02/19/2011 9:19 AM CDT [facility] [place] [facility] Adult Discharge Orders & Instructions [...] To contact a doctor, call or: ??? [phone] and ask for the resident manager construction for (answered 24 hours a day) ??? Emergency Department: [facility]: [phone] (TTY for hearing impaired: [phone]) [facility] [place]: [phone] (TTY for hearing impaired: [phone]) documented in this encounter Medications at Time [...] senna-docusate Take 1-2 tablets 30 tablet 0 02/19/201101/2014 (SENOKOT-S;PERICOLACE) by mouth 2 times 8.6-50 MG [...] Kaye Sun - 02/19/2011 8:52 AM CDT [facility] Orthopedic Brief Operative Note Pre-operative diagnosis: Stenosis, Herniated Disc left L5-S1 Post-operative diagnosis: Same Procedure: MAST decompression Left L5-S1 Surgeon: KAYE SUN Production Broaching Machine Operator(s): Sally Forbes PA-C Anesthesia: General endotracheal anesthesia [...] AM CDT STAFF SURGEON: Kaye Sun MD WIRE WEAVER CLOTH: Sally Forbes PA-C PREOPERATIVE DIAGNOSIS: Stenosis left L5-S1 with [...] counts were correct. KAYE SUN MD MT: Name: DESTINEY FARRIS Account: [id number] : 1990 Procedure Date: 02/19/2011 Document: [id number] cc: [facility] documented in this encounter Plan [...] At Patho logist Time Signature ABO A [facility] RH(D) Pos [facility] Antibody Neg [facility] Screen [place] [facility] Specimen 02/22/2011 [facility] Expires [place] [facility] Specimen Anatomical Collection Method Collection Time Receive d Time (Source) Location / / Volume Laterality Blood specimen 02/19/2011 7:10 AM 011 7:21 (specimen) CDT AM CDT Karin Hernandez MD LAB - BLOOD BANK TEST ORDER Performing Organization Address City/[facility]/ZIP Code Phon e Number [address] [address] [facility] Hemoglobin (02/19/2011 7:10 AM CDT) P athologist Signature Hemoglobin 13.7 11.7 - 15.7 [facility] g/dL LAB Specimen Anatomical Collection Method Collection Time Receive d Time (Source) Location / / Volume Laterality Blood specimen 02/19/2011 7:10 AM 011 7:21 (specimen) CDT AM CDT Karin Hernandez MD LAB - BLOOD ORDERABLES Performing Organization Address City/[facility]/ZIP [facility] Phon e Number [address] [address] [facility] documented in this encounter Visit Diagnoses Not on filedocumented in this encounter Administered Medications Inactive Administered Medications - up to 3 most recent administrations Medication Order MAR Action Action Date Dose Rate Site BUPivacaine 0.5 % - Given 02/19/2011 8:35 AM 10 mLs Operative EPInephrine 1:200,000 CDT Sit e/Surgical Site injection PRN, Starting on Thu02/19/11 at 0835, Intra-procedure fentanyl (SUBLIMAZE) injection 25-50 mcg Given 02/19/2011 9:08 AM CDT 50 mcg 25-50 mcg, Intravenous, EVERY 2 MIN [...] For 1 dose, prior to discharge, Post-procedure thrombin 10,000 units, Given 02/19/2011 8:45 AM 1 Package Operative microfibillar collagen mL CDT Site/Surgical Site (INSTAT) PRN, Starting on Thu02/19/11 at 0845, Intra-procedure thrombin 5000 UNIT Given 02/19/2011 10:48 AM 5,000 Units Operative topical solution CDT Site/Surgical S ite PRN, Starting on Thu02/19/11 at 1048, Apply to , Intra-procedure documented in this encounter Active and Recently Administered Medications Times are shown in CDT. Scheduled Medication Order 02/17/2011 02/18/2011 02/19/2011 oxycodone-acetaminophen (PERCOCET) 5-325 MG per tablet 1-2 table t (COMPLETED) 1031 (Given - Provider: Miracle King) 1-2 tablet, Oral, ONCE, On 8/3/11 at 1030, For 1 dose, prior to [...] Comment: USED TOPICALLY ON COTTONOIDS) PRN, Starting 02/19/11 at 1048, Apply to , Intra-procedure documented in this encounter Care Teams Accessioner Relationship Specialty Start Date End Date Justin Loya MD PCP - General Family Practice 02/19/11 [facility] [address] [place] [address] documented as of this encounter
--- OUTSIDE RECORDS SUMMARY | 2022-06-23 17:46 | XMS_ITS | Encounter Summary ---
:1990 Author Organization [place] Address [address] [facility] [place] [address] Care Team Providers Name Role Phone Justin Loya MD Primary Care Provider Reason for Visit Reason Onset Date Comments Appointment 10/31/2011 Encounter Details Date Type Department Care Team Description 10/31/2011 Telephone [facility] Neurology Serafin Cueva MD Appointment Clinic [phone] [place] [address] (Wo rk) Social History Tobacco Use Types Packs/Day Years Used Date Smoking Tobacco: Never Alcohol Use Standard Drinks/Week Comments No 0 (1 standard drink = 0.6 oz pure alcoho l) Sex Assigned at Date Recorded Not on file documented as of this encounter Miscellaneous Notes Telephone Encounter - Thania Thomas RN - 10/31/2011 8:50 AM CDT Called the pt to inform her that there is an opening on Dr Cueva scheduled for today at 1:00. Was unable to reach her but a message was left on asking her to call back if she is able to make it. Thania Arnold, RN documented in this encounter Plan of Treatment Not on filedocumented as of this encounter Visit Diagnoses Not on filedocumented in this encounter Care Teams Magazine Editor Relationship Specialty Start Date End Date Justin Loya MD PCP - General Family Practice 02/19/11 [facility] [address] [place] [phone] documented as of this encounter
--- OUTSIDE RECORDS SUMMARY | 2022-06-23 17:46 | XMS_ITS | Encounter Summary ---
:1990 Author Organization [place] Address [facility]0 [facility] [place] [address] Care Team Providers Name Role Phone Justin Loya MD Primary Care Provider Reason for Visit Reason Onset Date Comments Referral 09/05/2011 Encounter Details Date Type Department Care Team Description 09/05/2011 Telephone Neurology Clinic Lois Zamora, auto body mechanic apprentice [facility] 1st Floor, Clinic [address] [place] [address] [phone] Social History Tobacco Use Types Packs/Day Years Used Date Smoking Tobacco: Never Alcohol Use Standard Drinks/Week Comments No 0 (1 standard drink = 0.6 oz pure alcoho l) Sex Assigned at Date Recorded Not on file documented as of this encounter Miscellaneous Notes Telephone Encounter - Lois Zamora RN - 09/05/2011 10:21 AM CST Records reviewed. Unfortunately we are unable to offer pt an appt in general neurology. Looks like she does have an appt in [place] with Dr Anay pillai. Records faxed to [place]. BAILIFF Telephone Encounter - Lois Zamora RN - 09/05/2011 7:46 AM CST Pt being referred for numerous issues including twitching in feet and nerve pain. Records placed in Dr Nunez's folder for review. BAILIFF documented in this encounter Plan of Treatment Not on filedocumented as of this encounter Visit Diagnoses Not on filedocumented in this encounter Care Teams Packaging Machine Operator Relationship Specialty Start Date End Date Justin Loya MD PCP - General Family Practice 02/19/11 [facility] [address] [place] [address] documented as of this encounter
--- OUTSIDE RECORDS SUMMARY | 2022-06-23 17:46 | XMS_ITS | Encounter Summary ---
:1990 Author Organization [place] Address [facility] [place] [address] Care Team Providers Name Role Phone Justin Loya MD Primary Care Provider Silas Santiago MD Unavailable Encounter Details Date Type Department Care Team Description 11/29/2013 Orders Only EMG [place], Neuropathic pain Avel Potter ( Primary Dx) [facility] 1st Floor, Clinic [address] [place] [id number] [phone] Social History Tobacco Use Types Packs/Day Years [...] specified documented in this encounter Care Teams Hip Hop Dance Instructor Relationship Specialty Start Date End Date Justin Loya MD PCP - General Family Practice 02/19/11 [facility] [address] [place] [address] Silas Santiago MD MD Pain Clinic 11/29/13 [facility] [address] [place] [address] documented as of this encounter
--- OUTSIDE RECORDS SUMMARY | 2022-06-23 17:46 | XMS_ITS | Encounter Summary ---
:1990 Author Organization [place] Address [facility], [facility]0 [place] [address] Care Team Providers Name Role Phone Justin Loya MD Primary Care Provider Reason for Visit Reason Onset Date Comments *-*INCOMING RECORDS*-* 11/21/2013 Records received from [facility] of Neuro, Dr. Li referring, Encounter Details Date Type Department Care Team Description 11/21/2013 PRE VISIT Neurology Clinic Ashli Lewis *-*INCOMING RECORDS*-* Avel Ott MA (Record s received from [facility] of 1st Floor, Clinic 1A Neuro, Dr. Li [address] [place] [address] [facility] ) [place] [phone] Social History Tobacco Use Types Packs/Day Years Used Date Smoking Tobacco: Never Alcohol Use Standard Drinks/Week Comments No 0 (1 standard drink = 0.6 oz pure alcoho l) Sex Assigned at Date Recorded Not on file documented as of this encounter Miscellaneous Notes Telephone Encounter - Ashli Lewis MA - 11/21/2013 2:32 PM CDT Chief Complaint Patient presents with ??? *-*INCOMING RECORDS*-* Records received from [facility], Dr. Li referring, Records include EMG, labs and office notes. Filed for appointment. Ashli Lewis MA-PAC documented in this encounter Plan of Treatment Not on filedocumented as of this encounter Visit Diagnoses Not on filedocumented in this encounter Care Teams Brush Fabrication Supervisor Relationship Specialty Start Date End Date Justin Loya MD PCP - General Family Practice 02/19/11 [facility] [address] [place] [address] documented as of this encounter
--- OUTSIDE RECORDS SUMMARY | 2022-06-23 17:46 | XMS_ITS | Encounter Summary ---
:1990 Author Organization [place] Address [address] [place] [address] Care Team Providers Name Role Phone Justin Loya MD Primary Care Provider Reason for Visit Reason Onset Date Comments Pain 11/24/2013 Encounter Details Date Type Department Care Team Description 11/24/2013 Telephone Neurology Clinic Raya Vee RN Pain [facility] 1st Floor, Clinic [address]A [address] [place] [address] [phone] Social History Tobacco Use Types Packs/Day Years Used Date Smoking Tobacco: Never Smokeless Tobacco: Never Alcohol Use Standard Drinks/Week Comments No 0 (1 standard drink = 0.6 oz pure alcoho l) Sex Assigned at Date Recorded Not on file documented as of this encounter Miscellaneous Notes Telephone Encounter - Valentín Unger MD - 11/24/2013 3:00 PM CDT Spoke to Destiney on the phone. She is suffering from severe pain and just started the lidocaine patches which she has not found efficient yet. I explained to her an important principle of neuropathic pain management- no medication works instantly, and in fact most of them can take a month or more until they show effect. She was somewhat frustrated to hear that, but unfortunately this is the case with any drug we use for nerve pain. She will i ncrease the gabapentin to 300 mg in am, and 600 mg pm starting now, and starting from the weekend ext Thursday she will try 300 mg in the morning, 300 at noon and 600 mg in the evening. She will continue using the lidocaine patches every 12 hours and should call me in 2 weeks for an update. She verbalized understanding. Telephone Encounter - Raya Vee I RN - 11/24/2013 9:16 AM CDT Destiney called stating the pain in her feet is so bad that she cannot function and would like to discuss other pain management options with the physician. Message sent to Dr. Unger to contact patient. documented in this encounter Plan of Treatment Not on filedocumented as of this encounter Visit Diagnoses Not on filedocumented in this encounter Care Teams Retail Brand Ambassador Relationship Specialty Start Date End Date Justin Loya MD PCP - General Family Practice 02/19/11 [facility] [address] [place] [address] documented as of this encounter
--- OUTSIDE RECORDS SUMMARY | 2022-06-23 17:46 | XMS_ITS | Encounter Summary ---
:1990 Author Organization [place] Address [address] [facility] [place] [address] Care Team Providers Name Role Phone Justin Loya MD Primary Care Provider Reason for Visit Reason Comments Headache Encounter Details Date Type Department Care Team Description 02/03/2013 Emergency [facility] Norma Ye He adache (Primary Dx) [facility] Emergency Dep t [address] [facility] [place], [place] [address] [address] [facility] [phone] [address] [place], [place] [address] (Wo rk) Social History Tobacco Use Types Packs/Day Years Used Date Smoking Tobacco: Never Alcohol Use Standard Drinks/Week Comments No 0 (1 standard drink = 0.6 oz pure alcoho l) Sex Assigned at Date Recorded Not on file documented as of this encounter Last Filed Vital Signs Vital Sign Reading Time Taken Comments Blood Pressure 169/106 02/03/2013 2:20 AM CDT Pulse 102 02/03/2013 2:20 AM CDT Temperature 36.6 ??C (97.9 ??F) 02/03/2013 2:20 AM CDT Respiratory Rate 20 02/03/2013 2:20 AM CDT Oxygen Saturation 99% 02/03/2013 2:20 AM CDT Inhaled Oxygen Concentration - - Weight 54.4 kg (120 lb) 02/03/2013 2:20 AM CDT Height 170.2 cm (5' 7) 02/03/2013 2:20 AM CDT Body Mass Index 18.79 02/03/2013 2:20 AM CDT documented in this encounter Discharge Instructions Discharge InstructionsNorma Ye MD - 02/03/2013 3:53 AM CDT Discharge Instructions Headache You were seen today for a headache. Headaches may be caused by many different things such as muscle tension, sinus inflammation, anxiety and stress, having too little sleep, too much alcohol, some medical conditions or injury. You may have a migraine, which is caused by changes in the blood vessels inyour head. At this time your doctor does not find that your headache is a sign of anything dangerousor life-threatening. However, sometimes the signs of serious illness do not show up right away. If you have new or worse symptoms, you may need to be seen again in the emergency department or by your primary doctor. Return to the Emergency Department if: You get a fever of 101 F or higher. Your headache gets much worse. You get a stiff neck with your headache. You get a new headache that is different or worse than headaches you have had before. You are vomiting and can???t keep food or water down You have blurry or double vision or other problems with your eyes. You have a new weakness on one side of your body. You have difficulty with balance which is new. You or your family thinks you are confused. You have a seizure or convulsion What can I do to help myself? Pain medications -- Take a pain medication such as acetaminophen (Tylenol??), ibuprofen (Advil??, Nuprin ??) or naproxen (Aleve??). If you have been given a narcotic (such as codeine, hydrocodone, or oxycodone) or a muscle relaxant (such as Flexeril ?? or Soma ??), do not drive for four hours after you have taken it. If the narcotic contains acetaminophen (Tylenol), do not take Tylenol with it. All narcotics will cause constipation, so eat a high fiber diet. Take a pain reliever as soon as you notice symptoms. Starting medications as soon as you start to have symptoms may lessen the amount of pain you have. Relaxing in a quiet, dark room may help. Get enough sleep and eat meals regularly. Schedule an appointment with your primary physician as instructed, or at least within 1 week. You may need to watch for certain foods or other things which may trigger your headaches. Keeping ajournal of your headaches and possible triggers may help you and your primary doctor to identify things which you should avoid which may be causing your headaches. Remember that you can always come back [...] 25 MG tablet mouth nightly as needed. HYDROcodone-acetaminophen Take 1-2 tablets 15 tablet 0 01/1711/23/2013 5-325 MG per tablet by mouth every 4 hours as needed for pain. oxycodone-acetaminophen Take 1-2 tablets 60 tablet 0 201011/23/2013 (PERCOCET) 5-325 MG per by mouth every 4 tabletIndications: Lumbar hours as needed radiculopathy for pain. senna-docusate Take 1-2 tablets 30 tablet 0 02/19/201101/2014 (SENOKOT-S;PERICOLACE) by mouth 2 times 8.6-50 MG per daily. tabletIndications: Lumbar radiculopathy documented as of this encounter ED Notes Norma Ye MD - 02/03/2013 2:52 AM CDT History Chief Complaint: Headache HPI Destiney Farris is a 22 year old female who presents with a headache. The patient reports that she started feeling sharp pain on the right side of her head earlier today. She explains that this sharp pain is different than her pressure headaches that she has experienced in the past two months. The patient notes that the pain radiates to her right eye, face and head and gets worse with touch. She reports having light sensitivity and nausea. She notes she took Ibuprofen earlier today with no relief. She also notes she has seen her PCP for pressure headaches and was recommended CT, although she has not yet had any imaging performed. The patient denies activity change, appetite change, chills, fever,neck pain or stiffness, vision changes, congestion, cough, shortness of breath, abdominal pain, diarrhea, vomiting, difficulty urinating, dysuria, back pain, rash, dizziness, light-headedness, numbness, or weakness. Allergies: Cefzil - Hives and swelling in feet and hands. Penicillin - Hives and swelling in feet and hands. Medications: Benadryl Tylenol Percocet Senokot Valium Past Medical History: Insomnia Low Back Pain Past Surgical History: Tonsillectomy Myringotomy, insert tube bilateral, combined Decompression lumbar minimally invasive one level- 2010 Family History: No family history on file. Marital Status: Single Social History: The patient has never smoked cigarettes and does not drink alcohol. The patient came to the emergency department with her significant other. Review of Systems Constitutional: Negative for fever, chills, activity change and appetite change. HENT: Negative for congestion, neck pain and neck stiffness. Eyes: Positive for photophobia. Negative for visual disturbance. Respiratory: Negative for cough and shortness of breath. Cardiovascular: Negative for chest pain. Gastrointestinal: Positive for nausea. Negative for vomiting, abdominal pain and diarrhea. Genitourinary: Negative for dysuria and difficulty urinating. Musculoskeletal: Negative for back pain. Skin: Negative for rash. Neurological: Positive for headaches. Negative for dizziness, weakness, light- headedness and numbness. All other systems reviewed and are negative. Physical Exam First Vitals: BP: 169/106 mmHg Pulse: 102 Temp: 97.9 ??F (36.6 ??C) Resp: 20 Height: 170.2 cm (5' 7) Weight: 54.432 kg (120 lb) SpO2: 99 % Physical Exam Constitutional: She is oriented to person, place, and time. She is cooperative. Tearful. HENT: Right Ear: External ear normal. Left Ear: External ear normal. Nose: Nose normal. Mouth/Throat: Uvula is midline, oropharynx is clear and moist and mucous membranes are normal. No posterior oropharyngeal edema or posterior oropharyngeal erythema. Pain to the right lateral scalp, advent and right cheek. No swelling or erythema present. Normal TMs bilaterally. Eyes: Conjunctivae normal, EOM and lids are normal. Pupils are equal, round, and reactive to light. Neck: Trachea normal and normal range of motion. Neck supple. Cardiovascular: Regular rhythm, normal heart sounds and intact distal pulses. Tachycardia present. Pulmonary/Chest: Effort normal and breath sounds normal. She has no wheezes. She has no rales. Abdominal: Soft. Bowel sounds are normal. There is no tenderness. There is no rebound and no guarding. Musculoskeletal: Normal range of motion. No tenderness, no edema Lymphadenopathy: She has no cervical adenopathy. Neurological: She is alert and oriented to person, place, and time. She has normal strength. No cranial nerve deficit or sensory deficit. Cranial nerves normal. Normal movement of face. Skin: Skin is dry. No rash noted. Psychiatric: Her mood appears anxious. Emergency Department Course Imaging: Radiographic findings were communicated with the patient who voiced understanding of the findings. CT Head: No evidence of acute intracranial abnormality, per radiology. Emergency Department Course: I examined the patient and discussed a plan of care. The patient was sent for the following imaging: CT Head. See results above. On recheck, the patient is feeling better and more calm. She refused LP and understands the risk of subarachnoid hemorrhage and not having LP. Rechecked the patient, findings and plan explained to the patient. Patient discharged home, status improved, with instructions regarding supportive care, medications, and reasons to return as well as the importance of close follow-up was reviewed. Impression & Plan Medical Decision Making: Destiney Farris is a 22 year old female who presents with a headache. She has had mild right sided headaches for the last 2 months, however today she has sharp, shooting pain on the right side of her head pointing to the face. We did do a CT of her head which was negative for hemorrhage or tumor. I did discuss with the patient further evaluation due to the significant pain that she has with lumbar puncture to rule out subarachnoid hemorrhage, however patient refused the test. She understands the risk of subarachnoid hemorrhage, further bleeding, stroke or even . Other possibilities for her headache may be migraine, trigeminal neuralgia or idiopathic headache. The patient at this time does not want any further treatment or evaluation here; she is willing to follow up with clinic. I would like her to be seen at the clinic within the next 24 hours and I did give a referral to neurology due toher headache symptoms. She should return if there is an increase in pain, any weakness, fever, or vomiting. Diagnosis: 1. Headache. IMaritza, am serving as a Scribe on 02/03/2013 at 2:50 AM to personally document the services performed by Dr. Ye based upon my observations and the provider's statements to me. Maritza Portillo 02/03/2013 [facility] EMERGENCY DEPARTMENT Norma Ye MD 02/03/13 [id number] Mariana Morel RN - 02/03/2013 2:24 AM CDT IN TRIAGE airway,breathing and circulation intact, without need for intervention . Alert and interacting appropriately for age and situation. Headache Started pm sharp while at work. Has had intermittent headache for 2 months pressure like. Nausea no vomiting [facility] and sent here. Seen on last Thursday documented in this encounter Plan of Treatment Not on filedocumented as of this encounter Procedures Procedure Name Priority Date/Time Associated Diagnosis Comme nts CT HEAD W/O STAT 02/03/2013 3:24 AM Results f or this CONTRAST CDT procedure are i n the results section. documented in this encounter Results Head CT w/o contrast (02/03/2013 3:24 AM CDT) Anatomical Region Laterality Modality Head, SUBRAD CT NEURO, SUBRAD CT NEURO, UMP CT NEURO Computed Tomography Specimen (Source) Anatomical Collection Method Collection Time Re ceived Time Location / / Volume Laterality 02/03/2013 3:24 AM CDT Impressions 02/03/2013 6:42 AM CDT IMPRESSION: ?Normal CT scan of the head. I agree with the preliminary report that was communicated to the referring physician. BASILIA LAU MD Narrative 02/03/2013 6:[address] SCAN OF THE HEAD WITHOUT ? CONTRA ST ?? 02/03/2013 3:24 AM HISTORY: Right-sided headache. TECHNIQUE: ??Axial images of the head wi thout ? IV contrast material. COMPARISON: None. FINDINGS: ??The ventricles are normal in size, shape and configuration. ??The brain parenchyma an d subarachnoid spaces are normal. There is no evidence of intracra nial hemorrhage, mass, acute infarct or anomaly. The visualized portions of the sinuses a nd mastoids appear normal. There is no evidence of trauma. Procedure Note Basilia Lau MD - 02/03/2013Formatt ing of this note might be different from the original. CT SCAN OF THE HEAD WITHOUT CONTRAST 01/17 3:24 AM HISTORY: Right-sided headache. TECHNIQUE: Axial images of the head with out IV contrast material. COMPARISON: None. FINDINGS: The ventricles are normal in s ize, shape and configuration. The brain parenchyma and subarachnoid spaces are normal. There is no evidence of intracra nial hemorrhage, mass, acute infarct or anomaly. The visualized portions of the sinuses a nd mastoids appear normal. There is no evidence of trauma. IMPRESSION IMPRESSION: Normal CT scan of the head. I agree with the preliminary report that was communicated to the referring physician. BASILIA LAU MD Norma Ye MD IMG CT ORDERABLES documented in this encounter Visit Diagnoses Diagnosis Headache(784.0) - Primary Headache documented in this encounter Care Teams Passenger Representative Relationship Specialty Start Date End Date Justin Loya MD PCP - General Family Practice 02/19/11 [facility] [address] [place] [address] documented as of this encounter
--- OUTSIDE RECORDS SUMMARY | 2022-06-23 17:46 | XMS_ITS | Encounter Summary ---
:1990 Author Organization [place] Address [address] [facility] [place] [address] Care Team Providers Name Role Phone Justin Loya MD Primary Care Provider Encounter Details Date Type Department Care Team Description 11/23/2013 Office Visit [facility] [place], Disturbance of skin matt Qiu (Primary Building Dx) 1st Floor, Clinic [address] [place] [phone] Social History Tobacco Use Types Packs/Day Years Used Date Smoking Tobacco: Never Smokeless Tobacco: Never Alcohol Use Standard Drinks/Week Comments No 0 (1 standard drink = 0.6 oz pure alcoho l) Sex Assigned at Date Recorded Not on file documented as of this encounter Progress Notes Valentín Unger MD - 11/23/2013 12:30 PM CDT Procedure note: Skin biopsy. Indication: sensory disturbance, skin. After obtaining informed consent, 3 mm skin biopsies were performed over the extensor digitorum brevis muscle of the left foot. 1% lidocaine anesthesia and betadine sterile prep were used. The patient tolerated the procedure well. Wound care and patient education were provided by Raya Vee RN. Valentín Unger MD documented in this encounter Plan of Treatment Not on filedocumented as of this encounter Procedures Procedure Name Priority Date/Time Associated Diagnosis Comme nts HC BIOPSY Routine 11/23/2013 12:31 PM Disturbance of skin SKIN/SUBQ/MUC MEM, CDT sensation SINGLE LESION PATHOLOGY RESULT - HIM 11/23/2013 12:00 AM SCAN CDT documented in this encounter Results PATHOLOGY RESULT - [facility] SCAN (11/23/2013 12:00 AM CDT) Specimen (Source) Anatomical Location Collection Method / Collectio n Time Received Time / Laterality Volume 11/23/2013 Narrative This result has an attachment that is no t available. Provider Scan LAB - [facility] documented in this encounter Visit Diagnoses Diagnosis Disturbance of skin sensation - Primary documented in this encounter Care Teams Retail Security Professional Relationship Specialty Start Date End Date Justin Loya MD PCP - General Family Practice 02/19/11 [facility] [id number] [place] [address] documented as of this encounter
--- OUTSIDE RECORDS SUMMARY | 2022-06-23 17:52 | XMS_ITS | Encounter Summary ---
:1990 Author Organization [facility] Address [address], [place] [address] Care Team Providers Name Role Phone No Primary/Referring, Phy Primary Care Provider Unavailable Reason for Visit Reason Comments RESULTS, TEST Encounter Details Date Type Department Care Team Description 06/02/2022 Telephone [facility] [address] , RESULTS, TEST Endocrinology [address] [place] [address] [place], [place] [phone] (Wo rk) Social History Tobacco Use Types Packs/Day Years Used Date Smoking Tobacco: Never Smokeless Tobacco: Never Alcohol Use Standard Drinks/Week Comments Not Currently 0 (1 standard drink = 0.6 oz pure alcoho l) Sex Assigned at Date Recorded Not on file documented as of this encounter Nursing Notes Julieta Diaz RN - 06/02/2022 12:31 PM CST Patient reached, notified of message below and pt verbalized understanding. ER CUTTER Lois Carr MD - 06/02/2022 12:07 PM CST Order signed to repeat fasting glucose ER CUTTER Julieta Diaz RN - 06/02/2022 8:33 AM CST Images from the original note were not included. Patient reached and notified of lab message below. Pt verbalized understanding and she is not 100% sure if she ate, she fees like she did but unsure if it was 1 or 2 hours before the lab. Pt would liketo repeat her Glucose lab. Lois Carr MD P Endo Pn Nursing Team 2 Please let patient know that her sodium and calcium levels are slightly low and can be due to dilutional affect in . Her glucose is 130. If this was done 1 hour after eating, it may be normal,but if fasting, would be elevated. Can patient verify when she may have last eaten before test? ER CUTTER documented in this encounter Plan of Treatment Upcoming Encounters Date Type Specialty Care Team Description 07/04/2022 Appointment Otolaryngology Opal Richardson MD [address] [facility] [address] [id number] (Wo rk) 07/22/2022 Appointment Endocrinology Luis Daniel Bradley MBBS [address] [facility] [address] N [phone] documented as of this encounter Results Glucose - Fasting > 8 hrs Fasting (06/03/2022 9:25 AM WASHER CUTTER) athologist Signature Glucose 82 70 - 100 06/03/2022 [facility] mg/dL 5:42 PM [facility] Comment: The given reference range is fo r the fasting state. Non-fasting reference range for glucose is 70 - 180 mg/dL. Hours Fasting 8 06/03/2022 5:42 PM [facility] C[facility] Specimen Anatomical Collection Method / Collection Time Recei ching Time (Source) Location / Volume Laterality Blood Venipuncture / 06/03/2022 9:25 06/03/2022 9:25 Unknown AM WASHER CUTTER AM WASHER CUTTER Lois Carr MD LAB_1 Performing Organization Address City/State/ZIP Code Phon e Number [facility] [address] [place] [address] [facility] [address] [place] [address], [facility] documented in this encounter Visit Diagnoses Diagnosis Elevated glucose level - Primary documented in this encounter Care Teams Director Digital Relationship Specialty Start Date End Date No Primary/Referring, Phy PCP - General 12/13/19 documented as of this encounter
--- OUTSIDE RECORDS SUMMARY | 2022-06-23 17:52 | XMS_ITS | Encounter Summary ---
:1990 Author Organization [facility] Address [address] [place] [address] Care Team Providers Name Role Phone No Primary/Referring, Phy Primary Care Provider Unavailable Reason for Visit Reason Comments Hip Problem Encounter Details Date Type Department Care Team Description 02/26/2022 Therapy [facility], Katty Arreaga PT Hip pain (Primary Dx); Physical Therapy [address] [facility] Instability of pelvis or thigh joint; [address] [place] [address] 24 weeks gestation of [place], [place] [address] [phone] Social History Tobacco Use Types Packs/Day Years Used Date Smoking Tobacco: Never Smokeless Tobacco: Never Alcohol Use Standard Drinks/Week Comments Not Currently 0 (1 standard drink = 0.6 oz pure alcoho l) Sex Assigned at Date Recorded Not on file documented as of this encounter Progress Notes Katty Arreaga, PT - 02/26/2022 9:00 AM CDT [facility] Daily Note Visit Number: 14 BCBS: Other SOC: 08/29/2021 Referring Provider: Justin Ramsay - Order added on 01/30/22 Diagnosis: Iliopsoas L hip bursitis Orders: Evaluate & treat and Possible Ionto trial Precautions/Contraindications: Considering future Date of Onset: 08/2020 Standardized Functional Score: PT - Musculoskeletal - Hip Hip Outcomes Score - ADL (0-100%, 100% being best): 79 Hip Outcomes Score - Sport (0-100%, 100% being best): 42 History: 30 year old female familiar to therapist from previous location who arrives for further care to L hip/LB s/s that remain following her delivery of her first child 1 year ago. Method of Injury: Functional Limitations: Holding son on L side, workouts - specifically bike, stairs and crawling on floor with son Patient's Therapy Goals: Re-estabilish care for L hip with recommendations of Dr Wilfred Ramírez recent hip consult, Additional factors: Post x 1 year, history of constipation, post thyroiditis, R Knee and R ankle history and hx of lumbar surgery hx in 2010 with increase s/s around Jun 2021. Repeat MRI with reassurance as was looking good. Pt planning to conceive upcoming prn. 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 SUBJECTIVE: Functional Status/Patient Report: 24+ weeks. Had appointment for son and concerned about muscle toneand neuro development thus needing to see specialist and feels stressful per pt report. Sleeping well with pillow support. Limited trial with SI belt. S/s increase as the days goes on OBJECTIVE: Today's Findings: Standing and Supine R Superior PSIS - Upslip R L sided Posterior pelvic girdle pain with SLS or stance phase. L Mild femoral nerve restriction LFC > femoral > Obturator T/L junction restrictions TREATMENT TODAY: Manual Therapy (92470) x 10 min: Utilized for the purpose of improving mobility and blood flow alongwith pain reduction principles. Pre and Post assessment time included along with time for the explanations and role of manual therapy = facilitation to recovery vs fix. B SL for L/P Mobs - Grade 1-3 R SL for L femoral sliders x 5 per branch Supine R Long [place] traction for RUpslip Therapeutic Exercise (CPT 78640) x 10 Min: Utilized for the purpose of improving strength, ROM, endurance, and/or flexibility. Time included education re: principles of load and capacity, the role of inflammation in pain/exercise, the role of endogenous chemicals in aerobic exercises along with specifics regarding the how and why to below exercises. Access Code: [email or web address] - emailed on 02/05/22 RED DOT * exercises for current stage of and current s/s - reviewed timing of each to be intermittently mixed in throughout day Exercises Seated Hip Adduction Isometrics with Ball - 1 x daily - 7 x weekly - 3-5 reps* Seated Roll Ins for Pelvic Floor Activation - 1 x daily - 7 x weekly - 3-5 reps* Wall VERSION - NO WEIGHT - 1 x daily - 7 x weekly - 3-5 reps Knee Pump - 1 x daily - 7 x weekly - 5-10 reps* Ankle Pumps - 1 x daily - 7 x weekly - 5-10 reps* Open Book - 1 x daily - 7 x weekly - 5-10 reps* Rocks and Wiggles - 1 x daily - 7 x weekly - 5-10 reps* Cat Cow to Child's Pose - 1 x daily - 7 x weekly - 5-10 reps* Self Care/Home Management Training (15539) x 10 Min: Training in activities of daily living is medically reasonable and necessary and expected to restore or improve the functioning of the patient. The patient has the capacity to learn from the instructions and the therapist was actively lecturing, demonstrating and providing literature in order to assist with patient appropriately and safely performing task. -Reassurance re: current and changing s/s - Reassurance re: s/s of stress UI as common based on stage of - Updates with addition of - time spent on medical updates, concerns and desire to continue care for pelvic girdle, and LE as able - Use of SI belt reviewed- pt has and is comfortable with use from previous Timed Code Treatment Minutes: 30 Total Treatment Minutes: 30 ASSESSMENT: 24 weeks gestation. L sided pelvic girdle pain along with noted R leg short and upslip presentation R with possible implication to L pelvic translation and lateral hip/glut irritation in SLS. Broading care to include musculoskeletal care during to address LB/pelvic girdle. 3 mechanisms remain including L sided glut med tendonopathy with components of pelvic girdle pain and mild peripheral neurogenic pain from left L4/L5. Pt thoughtfully utilizing strategies re: and remains active in goal setting and problem solving in care. Therapist Impression: 30 year old female familiar to therapist from previous location who arrives for further care to L hip/LB s/s that remain following her delivery of her first child 1 yearago. An evaluation was performed. The patient was determined to have moderate complexity based on history, examination, clinical presentation of the patient and the PT???s clinical decision making. 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 Pain is localized to area with clear, proportionate mechanical/anatomical nature with aggravating and easing factors. Signs and Symptoms consistent with diagnosis of iliopsoas bursitisfollowing C- section. El impairments include: Fascial restrictions surrounding L anterior pelvis, hip flexor restriction and decrease hip complex strength. Contributing factors affecting patients rehabilitation potential include lumbar spine history and length of time with current restriction to L hip. Positive identification of psychosocial factors include: Pain catastrophizing, fear- avoidance behavior and history of anxiety. PLAN: F/u on L lateral hip pain. Reformer prn. Progress patient as tolerated in strength, flexibility, aerobic capacity while monitoring pain levels and adjusting accordingly. EXPECTED FUNCTIONAL OUTCOMES/GOALS: HEP/Independent Management: Demonstrate independence with HEP and self- management following each treatment session ADL's: Perform home management tasks with ease in 4 (including child care nurse demands with increase ease) weeks. Ambulation: Ascend/descend stairs independently with reciprocal pattern with minimal to no symptoms and improved lower extremity alignment in 4 weeks. Sports/Leisure: Return to prior level of leisure or recreational activities, including cardio x 30 min and weight training without an increase in symptoms or limitations in 6 weeks. Therapist: Katty Arreaga, ROGELIO 9:09 AM 02/26/2022 documented in this encounter Plan of Treatment Upcoming Encounters Date Type Specialty Care Team Description 07/04/2022 Appointment Otolaryngology Opal Richardson MD [address] [facility] [address] [place] [id number] (Wo rk) 07/22/2022 Appointment Endocrinology Luis Daniel Bradley, GARRETT [address] [id number] documented as of this encounter Visit Diagnoses Diagnosis Hip pain - Primary Pain in joint, pelvic region and thigh Instability of pelvis or thigh joint Other joint derangement, not elsewhere c lassified, pelvic region and thigh 24 weeks gestation of state, incidental documented in this encounter Care Teams Interior Design Professor Relationship Specialty Start Date End Date No Primary/Referring, Phy PCP - General 12/13/19 documented as of this encounter
--- OUTSIDE RECORDS SUMMARY | 2022-06-23 17:52 | XMS_ITS | Encounter Summary ---
:1990 Author Organization [facility] Address [address] [place] [address] Care Team Providers Name Role Phone No Primary/Referring, Phy Primary Care Provider Unavailable Reason for Visit Reason Comments Hip Problem Encounter Details Date Type Department Care Team Description 04/10/2022 Therapy [facility], Katty Arreaga, PT Instability of pelvis or thigh joint (Pr imary Dx); Physical Therapy [address] [facility] 30 weeks gestation of [address] [place] [address] [place], [place] [phone] Social History Tobacco Use Types Packs/Day Years Used Date Smoking Tobacco: Never Smokeless Tobacco: Never Alcohol Use Standard Drinks/Week Comments Not Currently 0 (1 standard drink = 0.6 oz pure alcoho l) Sex Assigned at Date Recorded Not on file documented as of this encounter Progress Notes Katty Arreaga, PT - 04/10/2022 2:15 PM CDT [facility] Daily Note Visit Number: 19 BCBS: Other SOC: 08/29/2021 Referring Provider: Justin [...] Pt planning to conceive upcoming prn. 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 SUBJECTIVE Functional Status/Patient Report: 30+ weeks. Increase noted contractions again this week and was in labor and delivery for assessment. Cervix closed and baby head down. R Posterior pelvis more bothersome this week. Constipated and will begin more Milk of Mg today. scheduled for 06/10/22 but still considering . OBJECTIVE: Today's Findings: Iliosacral alignment: L upslip in standing L Mild femoral nerve restriction LFC > femoral > Obturator Moderate - T > T/L restrictions Strong L Lat and QL and anterior chest restrictions TREATMENT TODAY: Manual Therapy (36711) x 15 min: Utilized for the purpose of improving mobility and blood flow alongwith pain reduction principles. Pre and Post assessment time included along with time for the explanations and role of manual therapy = facilitation to recovery vs fix. B SL for L/P Mobs - Grade 1-3 B SL for T/L glides - Grade 1/2 L SL for R MET to anterior innominate rotation R SL for Long axis pull with UE reach with breath Therapeutic Exercise (CPT 20903) x 5 Min: Review - no additions: Utilized for the purpose of improving strength, ROM, endurance, and/or flexibility. Time included education re: principles of load and capacity, the role of inflammation in pain/exercise, the role of endogenous chemicals in aerobic exercises along with specifics regarding the how and why to below exercises. Access Code: [email or web address] Open book and all 4 mobility in clinic on this date and review of remaining home strategies and how to best incorporate based on s/s RED DOT * exercises for current stage [...] - 7 x weekly - 5-10 reps* *Open Book - 1 x daily - 7 x weekly - 5-10 reps* - Modification to seated Manager Enrollment version on 03/27 Rocks and Wiggles - 1 x daily - 7 x weekly - 5-10 reps* - Modification to seated girls tennis coach with shoulderdips on 03/27 Cat Cow to Child's Pose - 1 x daily - 7 x weekly - 5-10 reps* - Modification to table top version on03/27 HS/Adductor releases in tall sitting one leg extended one on ground - added 03/27 Self Care/Home Management Training (04638) x 10 Min: Training in activities of daily living is medically reasonable and necessary and expected to restore or improve the functioning of the patient. The patient has the capacity to learn from the instructions and the therapist was actively lecturing, demonstrating and providing literature in order to assist with patient appropriately and safely performing task. -Constipation plan along with increase fluids - discussion re: contributor to pre-contractions - Reassurance re: s/s of stress UI as common based on stage of - Updates with addition of - time spent on medical updates, concerns and desire to continue care for pelvic girdle, and LE as able - Use of maternity belts - belly band and SI - pt has and is comfortable with use from previous Timed Code Treatment Minutes: 30 Total Treatment Minutes: 30 ASSESSMENT: 30+ weeks gestation with ANDRE on 06/15/22. Pt arrives with report of multiple visits to labor and deliver secondary to pre-contractions. Cervix closed. Suspect constipation as contributor and plan discussed today. Iliosacral dysfunction remains with inconsistent presentations but consistentposterior pelvic girdle pain. Global stiffness/tightness to T and T/L junction. Improved standing presentation post manual care on this date. Time spent on facilitation of mobility with manual care andHEP to support focused on. Sessions remain with demystifying pt's maladaptive thoughts and fears as able with education and experiences in care to support safety and decrease threat. 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 Pain is localized to [...] and history of anxiety. PLAN: F/u on constipation and pre-contractions. Continue MET prn. Progress patient as tolerated in strength, flexibility, aerobic capacity while monitoring pain levels and adjusting accordingly. EXPECTED FUNCTIONAL OUTCOMES/GOALS: HEP/Independent Management: Demonstrate independence with HEP and self- management following each treatment session ADL's: Perform home management tasks with ease in 4 (including childcare worker demands with increase ease) weeks. Ambulation: Ascend/descend stairs independently with reciprocal pattern with minimal to no symptoms and improved lower extremity alignment in 4 weeks. Sports/Leisure: Return to prior level of leisure or recreational activities, including cardio x 30 min and weight training without an increase in symptoms or limitations in 6 weeks. Therapist: Katty Arreaga, PT 2:20 PM 04/10/2022 documented in this encounter Plan of Treatment Upcoming Encounters Date Type Specialty Care Team Description 07/04/2022 Appointment Otolaryngology Opal Richardson MD [address] [phone] (Wo rk) 07/22/2022 Appointment Endocrinology Luis Daniel Bradley MBBS [address] [id number] documented as of this encounter Visit Diagnoses Diagnosis Instability of pelvis or thigh joint - P rimary Other joint derangement, not elsewhere c lassified, pelvic region and thigh 30 weeks gestation of state, incidental documented in this encounter Care Teams Kiln Head House Operator Relationship Specialty Start Date End Date No Primary/Referring, Phy PCP - General 12/13/19 documented as of this encounter
--- OUTSIDE RECORDS SUMMARY | 2022-06-23 17:52 | XMS_ITS | Encounter Summary ---
:1990 [facility] [address] [address] Care Team Providers Name Role Phone No Primary/Referring, Phy Primary Care Provider Unavailable Reason for Visit Reason Comments Mouth Sores X 3 weeks, no previous episo abeba Encounter Details Date Type Department Care Team Description 02/21/2022 Office Visit [place] [address] Jm Agee, Jorge s (Primary Dx); Family Medicine PA-C Dysfunction of both eustachian tubes; [address] History of iron deficiency; [place], [place] stat e, incidental [phone] Social History Tobacco Use Types Packs/Day Years Used Date Smoking Tobacco: Never Smokeless Tobacco: Never Alcohol Use Standard Drinks/Week Comments Not Currently 0 (1 standard drink = 0.6 oz pure alcoho l) Sex Assigned at Date Recorded Not on file documented as of this encounter Last Filed Vital Signs Vital Sign Reading Time Taken Comments Blood Pressure 114/72 02/21/2022 1:33 PM CDT Pulse 77 02/21/2022 1:33 PM CDT Temperature - - Respiratory Rate - - Oxygen Saturation - - Inhaled Oxygen Concentration - - Weight 66.7 kg (147 lb) 02/21/2022 1:33 PM CDT Height 170.2 cm (5' 7) 02/21/2022 1:33 PM CDT Body Mass Index 23.02 02/21/2022 1:33 PM CDT documented in this encounter Patient Instructions Patient InstructionsPohlJm PA-C - 02/21/2022 1:40 PM CDT Plan: 1). Magic mouthwash 3x daily as needed 2). Will follow up on tongue scraping (EIMLY prep) and if (+) for yeast will add Nystatin orally (Prescription printed). 3). Dexamethasone 10mg daily for two doses prescribed. 4). Tylenol for discomfort 5). Will follow up on iron levels and address if low. 6). If having ongoing issues or recurrent issues then can consider other testing for autoimmune concerns. 7). Follow up with acute worsening of symptoms or any other concerns. documented in this encounter Progress Notes Jm Agee PA-C - 02/21/2022 1:40 PM CDT Chief Complaint Patient presents with Mouth Sores X 3 weeks, no previous episodes History of present illness: Destiney Cassidy is a 31 y.o. female who is currently 22 weeks and has had a sore on both sides of her tongue that she has had for about 3 weeks. Areas have not necessarily gotten bigger or spread to other areas of tongue or mouth. No sore throat or pain with swallowing. Areas can be uncomfortable, especially when she eats/drinks things that aggravate the area. She has had some feeling of her ears being plugged but no ear pain congestion or other URI symptoms. No other skin lesions. Pregnancyhas otherwise been going well. She did see ENT at [facility] who mentioned concern for possible autoimmune disorder such as Sjogren, or other etiologies however she has never had symptoms in the past that would necessarily be consistent with that at the moment. No history of canker sores or cold sores. She did have issues with iron deficiency with past and wonders if that could be part of cause. Discussed checking iron levels. Review of Systems: As stated in HPI otherwise negative. Past Medical History: Reviewed and updated in medical record at visit Past Surgical History: Reviewed and updated in medical record at visit Family History: Reviewed and updated in medical record at visit Medications: Reviewed and reconciled in medical record at visit. Allergies: Reviewed and updated in medical record at visit. Physical Exam: Vitals: 02/21/22 1333 BP: 114/72 Pulse: 77 GEN: Alert, oriented, well nourished/hydrated in NAD EYES: PEERL, EOMI ENT: Ears with clear canals, TMs normal. Nose without congestion.. Throat with moist mucus membranes, no erythema/swelling in posterior pharynx. No exudates. Exam of tongue with symmetric lesions on both sides of mid tongue. They do not necessarily appear ulcerative but somewhat irritated. She does have mild coating on her tongue as well. NECK: Supple, trachea midline, no LAD CHEST: Normal effort, CTA. HEART: RRR, No audible murmur, rub or gallop. ABD: Soft, non-tender. No rebound or guarding. SKIN: Warm and dry without rash M/S: No joint swelling or redness. NEURO: CN 2-12 intact, non-focal exam PSYCH: Alert and oriented. Normal affect. EMILY prep obtained. Discussion: 31 year old with tongue sores, likely viral vs other etiologies including possible thrush. (EMILY pending). At the moment it does not seem likely to be related to an acute onset of autoimmunedisorder however not entirely excluded but given it has only been a short time would opt for symptomatic treatment at the moment and if sores persist or if she has other symptoms that would be suggestive of autoimmune disorder would be something we can certainly pursue. I am not sure if Destiney necessarily agreed with that plan at time of visit however again discussed that would be something we can pursue should her symptoms persist. Diagnosis: Encounter Diagnoses Name Primary? Glossitis Yes Dysfunction of both eustachian tubes History of iron deficiency state, incidental Plan: 1). Magic mouthwash 3x daily as needed 2). Will follow up on tongue scraping (EMILY prep) and if (+) for yeast will add Nystatin orally (Prescription printed). 3). Dexamethasone 10mg daily for two doses prescribed. 4). Tylenol for discomfort 5). Will follow up on iron levels and address if low. 6). If having ongoing issues or recurrent issues then can consider other testing for autoimmune concerns. 7). Follow up with acute worsening of symptoms or any other concerns Orders Placed This Encounter Ferritin Total Iron and Iron Binding Capacity EMILY Prep dexamethasone (DECADRON) 4 MG tablet magic mouthwash (lido/maalox/diphen 1:1:1) nystatin (MYCOSTATIN) 582436 UNIT/ML suspension documented in this encounter Plan of Treatment Upcoming Encounters Date Type Specialty Care Team Description 07/04/2022 Appointment Otolaryngology Opal Richardson MD [address] [id number] (Wo rk) 07/22/2022 Appointment Endocrinology Luis Daniel Bradley [facility] [address] [id number] documented as of this encounter Procedures Procedure Name Priority Date/Time Associated Diagnosis Comme nts EMILY PREP Routine 02/21/2022 2:38 PM Glossitis Results f or this CDT procedure are i n the results section . documented in this encounter Results EMILY Prep (02/21/2022 2:38 PM CDT) [facility] Striped Sail Method Time Signature Fungal Not Detected Not detected 02/21/2022 [facility] 3:42 PM CDT LAB Specimen Anatomical Collection Method Collection Time Receive d Time (Source) Location / / Volume Laterality Scraping TONGUE STRUCTURE / 02/21/2022 2:38 PM 11/2021 3:27 Unknown CDT PM CDT Jm Agee PA-C LAB_1 Performing Organization Address City/State/ZIP Code Phon e Number [facility] [address] [place] [address] (ABNORMAL) Total Iron and Iron Binding Capacity (02/21/2022 2:22 PM CDT) [facility] Striped Sail Method Time Signature Iron 104 50 - 170 02/21/2022 [facility] mcg/dL 8:49 PM CDT LABORATORY Transferrin 410 (H) 180 - 382 02/21/2022 [facility] mg/dL 8:49 PM CDT LABORATORY TIBC, Calculated 513 (H) 240 - 450 02/21/2022 [facility] mcg/dL 8:49 PM CDT LABORATORY % Saturation, 20 10 - 50 % 02/21/2022 [facility] Calculated 8:49 PM CDT LABORATORY Specimen Anatomical Collection Method / Collection Time Recei ching Time (Source) Location / Volume Laterality Blood Venipuncture / 02/21/2022 2:22 02/21/2022 2:22 Unknown PM CDT PM CDT Jm Agee PA-C LAB_1 Performing Organization Address City/[facility]/ZIP [facility] Phon e Number [facility] [address] [place] [address] (ABNORMAL) Ferritin (02/21/2022 2:22 PM CDT) P athologist Signature Ferritin 8 (L) 9 - 204 02/21/2022 [facility] ng/mL 9:03 PM CDT LABORATORY Specimen Anatomical Collection Method / Collection Time Recei ching Time (Source) Location / Volume Laterality Blood Venipuncture / 02/21/2022 2:22 02/21/2022 2:22 Unknown PM CDT PM CDT Jm Agee PA-C LAB_1 Performing Organization Address City/[facility] Phon e Number [facility] [address] [place] [address] documented in this encounter Visit Diagnoses Diagnosis Glossitis - Primary Dysfunction of both eustachian tubes Dysfunction of Eustachian tube History of iron deficiency Personal history of diseases of blood an d blood-forming organs state, incidental documented in this encounter Care Teams Project Management Specialist Relationship Specialty Start Date End Date No Primary/Referring, Phy PCP - General 12/13/19 documented as of this encounter
--- OUTSIDE RECORDS SUMMARY | 2022-06-23 17:52 | XMS_ITS | Encounter Summary ---
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); [facility] [address] [facility] 32 weeks gestation of [address] [place] [address] [place], [place] [phone] Social History Tobacco Use Types Packs/Day Years Used Date Smoking Tobacco: Never Smokeless Tobacco: Never Alcohol Use Standard Drinks/Week Comments Not Currently 0 (1 standard drink = 0.6 oz pure alcoho l) Sex Assigned at Date Recorded Not on file documented as of this encounter Progress Notes Katty Arreaga, PT - 04/24/2022 8:30 AM CDT [facility] Daily Note Visit Number: [id number] BCBS: Other SOC: 08/29/2021 Referring Provider: Justin [...] Pt planning to conceive upcoming prn. 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 SUBJECTIVE Functional Status/Patient Report: 32+ weeks. A few days ago tripped over sons cup and felt shift over L side of pelvis and also dropped vacuum on L foot. At 32 week visit was pt concerned again about contraction but was reassured. L Posterior pelvis most bothersome on this date. C-sectionscheduled for 06/10/22 but still considering . OBJECTIVE: Today's Findings: Iliosacral alignment: R Anterior + Thigh Thrust B - L > R on this date + Pain with any SLS time and or hip flexion attempt in standing B TREATMENT TODAY: Manual Therapy (43097) x 15 min: Utilized for the purpose of improving mobility and blood flow alongwith pain reduction principles. Pre and Post assessment time included along with time for the explanations and role of manual therapy = facilitation to recovery vs fix. L SL for L/P Mobs - Grade 1-3 L SL for T/L glides - Grade 1/2 L SL for R MET for anterior innominate rotation Supine Hooklying MET for Add/Abd x 3 x 5 Therapeutic Exercise (CPT 48211) x 5 Min: Review - no additions: Utilized for the purpose of improving strength, ROM, endurance, and/or flexibility. Time included education re: principles of load and capacity, the role of inflammation in pain/exercise, the role of endogenous chemicals in aerobic exercises along with specifics regarding the how and why to below exercises. Access Code: [email or web address] Open book and all 4 mobility in [...] - 5-10 reps* - Modification to seated Bait Tier version on 03/27 Rocks and Wiggles - 1 x daily - 7 x weekly - 5-10 reps* - Modification to seated family coach with shoulderdips on 03/27 Cat Cow to Child's Pose - 1 x daily - 7 x weekly - 5-10 reps* - Modification to table top version on03/27 HS/Adductor releases in tall sitting one leg extended one on ground - added 03/27 Self Care/Home Management Training (58132) x 10 Min: Training in activities of daily living is medically reasonable and necessary and expected to restore or improve the functioning of the patient. The patient has the capacity to learn from the instructions and the therapist was actively lecturing, demonstrating and providing literature in order to assist with patient appropriately and safely performing task. Post care strategies discussed - abdominal binder, breathing, pelvic tilts and reassurance ofpost PT support PRN. Addition of thought pivot for unhelpful or untrue thoughts to avoid emotion and physiological body response further driving pain - handout issued Current el strategies provided: SI, Ice, seated isometrics, breath, Avoid SLS and assist as able with home/rn maternal child demands - handout issued Review of below: -Constipation plan along with increase fluids - [...] Minutes: 30 Total Treatment Minutes: 30 ASSESSMENT: 32+ weeks gestation with ANDRE on 06/15/22. Strong L sided posterior pelvic pain on this date and additional episode of both tripping over son toy and dropping vacuum on L toe leading to altered gait and likely irritation to current L sided pain. Encouragement re: el strategy focus, expectations, reassurance/safety and use of thought pivoting to avoid unhelpful thinking. Global stiffness/tightness to T and T/L junction. Improved standing presentation post manual care on this date. Time spent on facilitation of mobility with manual care and HEP to support focused on. Sessions remain with [...] consistent with nociceptive pain mechanism as primary car driver inpain experience. Pain is localized [...] management tasks with ease in 4 (including rn maternal child demands with increase ease) weeks. Ambulation: Ascend/descend stairs independently with reciprocal pattern with minimal to no symptoms and improved lower extremity alignment in 4 weeks. Sports/Leisure: Return to prior level of leisure or recreational activities, including cardio x 30 min and weight training without an increase in symptoms or limitations in 6 weeks. 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
--- OUTSIDE RECORDS SUMMARY | 2022-06-23 17:52 | XMS_ITS | Clinical Summary ---
:1990 [facility] Address [address] [place] [address] Care Team Providers Name Role Phone No Primary/Referring, Juanisy Primary Care Provider Unavailable Source Comments You are receiving this document as you are listed as the primary care provider,follow-up provider, or the patient has been referred to you for consultation.This is in compliance with the Medicare and Medicaid EHR Incentive Program,which states Providers who transition their patient to another setting of careor provider of care or refers their patient to another provider of care shouldprovide summarycare record for each transition of care or referral. [employer] Allergies Active Allergy Reactions Severity Noted Date Comments Cefprozil Hives High 02/22/2018 Hives, swelling of hands/feet Cephalosporins 08/17/2015 Ciprofloxacin 08/17/2015 Ciprofloxacin 02/22/2018 Nerve pain Metoclopramide Anxiety, Other, see Low 02/29/2020 Restle ssness, squirming comments Restlessness, s quirming Penicillins 08/17/2015 PN: rash Penicillins Hives High 02/22/2018 Hives, swelling of hands/feet Propylthiouracil Rash 08/15/2021 Medications Medication Sig Dispensed Refills Start Date End Date Status ALBUTEROL IN albuterol 0 Active ferrous sulfate 325 (65 Take 325 mg by 0 02/14/2021 Active Fe) MG tablet mouth. Magnesium Oxide Take 1 Tablet by 0 Active (MAGNESIUM OXIDE 400) mouth daily. 240 MG PACK Cholecalciferol 0 07/26/2021 Act stephanie (VITAMIN D-3) 125 MCG (5000 UT) TABS mupirocin (BACTROBAN) 2 0 07/19/2021 Active % ointment valACYclovir (VALTREX) Take 1,000 mg by 0 12/31/2021 Active 1 g tablet mouth three times a day. Vit-Fe Vitamin 0 Active Fumarate-FA ( VITAMIN OR) acyclovir (ZOVIRAX) 800 Take 800 mg by 0 01/02/2022 Active MG tablet mouth five times a day. clotrimazole (MYCELEX) Take 10 mg by 0 02/20/2022 Active 10 MG pedro mouth five times a day. metroNIDAZOLE Insert vaginally 0 02/04/2022 Active (METROGEL-VAGINAL) 0.75 daily at bedtime. % vaginal gel magic mouthwash Swish and spit in 240 mL 0 02/21/2022 Active (lido/maalox/diphen mouth two times a 1:1:1)Indications: day. Swish and Glossitis spit 5 mL. Additional Information Patient not taking. Reported on 03/12/2022 nystatin (MYCOSTATIN) [id number] UNIT/ML Take 5 mL (500,000 60 mL 2 02/21/2022 Active suspensionIndications: Glossitis Units) by mouth 4 times a day. Additional Information Patient not taking. 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 Paresthesia 02/22/2018 Postural orthostatic tachycardia syndrome 02/22/2018 Estimated Date of Delivery Comments Yes 06/15/2022 Resolved Problems Problem Noted Date Resolved Date Acquired hypothyroidism 07/26/2021 05/01/2022 Encounters Date Type Specialty Care Team Description 06/03/2022 Lab Visit Laboratory Elevated glucos e level 06/02/2022 Telephone Endocrinology Lois Carr RESULTS, T EST Eduardo Garcia MD 05/30/2022 Lab Visit Laboratory Hypocalcemia 05/22/2022 Therapy Physical Therapy Katty Arreaga, Instab ility of pelvis or thigh joint (Primary Dx); PT 36 weeks gestat ion of 05/20/2022 Notes/Orders Endocrinology Lois Carr Hypocalcem ia (Primary Dx) Eduardo Garcia MD 05/15/2022 Lab Visit Laboratory Decreased davon tin; Acquired hypoth yroidism (HRC); H/O Graves' dis ease; Hyponatremia; Elevated glucos e; Glossitis; Throat pain; Oral aphthae 05/08/2022 Therapy Physical Therapy Katty Arreaga, Instab ility of pelvis or thigh joint (Primary Dx); PT 34 weeks gestat ion of 05/01/2022 [facility] Graves ' disease (Primary Dx); Eduardo Garcia MD Heart palpitati ons; Hyponatremia; Elevated glucos e 04/24/2022 Therapy Physical Therapy Katty Arreaga, Instab ility of pelvis or thigh joint (Primary Dx); PT 32 weeks gestat ion of 04/17/2022 Therapy Physical Therapy Katty Arreaga, Instab ility of pelvis or PT thigh joint (Pr imary Dx) 04/10/2022 Therapy Physical Therapy Katty Arreaga, Instab ility of pelvis or thigh joint (Primary Dx); PT 30 weeks gestat ion of 04/10/2022 Lab Visit Laboratory Acquired hypoth yroidism 04/07/2022 Telephone Endocrinology [facility] Eduardo Garcia MD 04/03/2022 Therapy Physical Therapy Katty Arreaga, Instab ility of pelvis or thigh joint (Primary Dx); PT 30 weeks gestat ion of 03/27/2022 Therapy Physical Therapy Katty Arreaga, Instab ility of pelvis or thigh joint (Primary Dx); PT 29 weeks gestat ion of from Last 3 Months Immunizations Name Administration Dates Next Due DTaP 03/04/1996, 08/27/1992, 07/07/1991, 02/1991, 03/01/1991 HepA Ped/Adol (1-18 yrs) 11/09/2009, 09/22/2008 HepB Ped/Adol (0-18 yrs) 04/28/2003, 11/07/2002, 10/06/2002 Hib (ActHIB) 04/06/1992, 07/07/1991, 04/26/1991, 02/17 IPV (Polio) 03/04/1996, 08/27/1992, 04/26/1991, 02/17 MCV4 (Menactra) 09/22/2008 MMR 05/28/2001, 04/06/1992 Td, Preservative Free 01/03/2003 Tdap 09/22/2008 Family History Medical History Relation Name Comments Jayme Father Relation Name Status Comments Father Alive Mother Alive Social History Tobacco Use Types Packs/Day Years Used Date Smoking Tobacco: Never Smokeless Tobacco: Never Alcohol Use Standard Drinks/Week Comments Not Currently 0 (1 standard drink = 0.6 oz pure alcoho l) Estimated Date of Delivery Comments Yes 06/15/2022 Sex Assigned at Date Recorded Not on file Last Filed Vital Signs Vital Sign Reading Time Taken Comments Blood Pressure 115/87 03/12/2022 1:03 PM CDT Pulse 103 03/12/2022 1:03 PM CDT Temperature 36.7 ??C (98 ??F) 08/30/2021 10:10 AM [employer] Respiratory Rate 11 01/17/2022 12:39 PM CDT Oxygen Saturation 98% 05/31/2021 10:52 AM [employer] Inhaled Oxygen Concentration - - Weight 69.4 kg (153 lb) 03/12/2022 1:03 PM CDT Height 170.2 cm (5' 7) 02/21/2022 1:33 PM CDT Body Mass Index 23.96 02/21/2022 1:33 PM CDT Plan of Treatment Upcoming Encounters Date Type Specialty Care Team Description 07/04/2022 Appointment Otolaryngology Opal Richardson MD [address] [facility] [address] [address] (Wo rk) 07/22/2022 Appointment Endocrinology Luis Daniel Bradley [facility] [address] [facility] [address] [address] Health Maintenance Due Date Last Done Comments Cervical Cancer Screening 1990 Due Hep C Screening (Preventive 1990 Services) COVID-19 Vaccine (#1) 06/26/1991 HIV Screening (Preventive 2006 Services) Adult Preventive Visit 2008 DTaP/Tdap/Td (7 - Tdap) 09/22/2018 09/22/2008, 01/03/2003, 03/04/1996, Additional history exists Influenza (#1) 2022 Zoster/Shingles (1 of 2) 2040 Hib Completed 04/06/1992, 07/07/1991, 04/26/1991, Additional history exists IPV (Polio) Completed 03/04/1996, 08/27/1992, 04/26/1991, Additional history exists HepB Completed 04/28/2003, 11/07/2002, 10/06/2002 MCV4 Completed 09/22/2008 HepA Completed 11/09/2009, 09/22/2008 HPV Vaccine Aged Out No longer eligib le based on patient 's age to complete this topic Pneumococcal Aged Out No longer eligib le based on patient 's age to complete this topic Procedures Procedure Name Priority Date/Time Associated Diagnosis Comme nts GLUCOSE Routine 06/03/2022 9:25 Elevated glucose Results for this AM [employer] level procedure are i n the results section. BASIC METABOLIC PANEL Routine 05/30/2022 9:24 Hypocalcemia Res ults for this AM [employer] procedure are i n the results section. C-REACTIVE PROTEIN Routine 05/15/2022 8:11 Glossitis Results for this AM CDT Throat pain procedure are in Oral aphthae the results section. FOLATE ONLY (4HR FAST Routine 05/15/2022 8:11 Glossitis Results for this RECOMMENDED) AM CDT Throat pain procedure are in Oral aphthae the results section. VITAMIN B12 ONLY Routine 05/15/2022 8:11 Glossitis Results for this AM CDT Throat pain procedure are in Oral aphthae the results section. IRON PROFILE Routine 05/15/2022 8:11 Glossitis Results for this (IRON,TIBC,%SAT.(CALC) AM CDT Throat pa in procedure are in ) Oral aphthae the results section. ESR Routine 05/15/2022 8:11 Glossitis Results for this AM CDT Throat pain procedure are in Oral aphthae the results section. COMPLETE BLOOD Routine 05/15/2022 8:11 Decreased ferritin Resu lts for this COUNT-W/DIFF AM CDT procedure are i n the results section. CORTISOL Routine 05/15/2022 8:11 Hyponatremia Results for this AM CDT procedure are i n the results section. HGB A1C Routine 05/15/2022 8:11 Elevated glucose Results for this AM CDT procedure are i n the results section. BASIC METABOLIC PANEL Routine 05/15/2022 8:11 Hyponatremia Res ults for this AM CDT procedure are i n the results section. TSH RECEPTOR ANTIBODY Routine 05/15/2022 8:11 H/O Graves' dise ase Results for this AM CDT procedure are i n the results section. THYROID STIMULATING Routine 05/15/2022 8:11 H/O Graves' diseas e Results for this IMMUNOGLOBULIN AM CDT procedure are in the results section. T3, FREE Routine 05/15/2022 8:11 Acquired Results for this AM CDT hypothyroidism (HRC) procedu re are in the results section. FREE T4 Routine 05/15/2022 8:11 Acquired Results for this AM CDT hypothyroidism (HRC) procedu re are in the results section. TSH, SENSITIVE Routine 05/15/2022 8:11 Acquired Results fo r this AM CDT hypothyroidism (HRC) procedu re are in the results section. FERRITIN Routine 05/15/2022 8:11 Decreased ferritin Result s for this AM CDT procedure are i n the results section. CBC AND DIFFERENTIAL Routine 05/15/2022 8:11 Decreased ferriti n Results for this PANEL AM CDT procedure are i n the results section. TSH, SENSITIVE Routine 04/10/2022 9:17 Acquired Results fo r this AM CDT hypothyroidism procedure are in the results section. FREE T4 Routine 04/10/2022 9:17 Acquired Results for this AM CDT hypothyroidism procedure are in the results section. T3, FREE Routine 04/10/2022 9:17 Acquired Results for this AM CDT hypothyroidism procedure are in the results section. from Last 3 Months Results Glucose - Fasting > 8 hrs Fasting (06/03/2022 9:25 AM [employer]) P athologist Signature Glucose 82 70 - 100 06/03/2022 [place] mg/dL 5:42 PM [facility] [facility] [employer] Comment: The given reference range is fo r the fasting state. Non-fasting reference range for glucose is 70 - 180 mg/dL. Hours Fasting 8 06/03/2022 5:42 PM [employer] [facility] Specimen Anatomical Collection Method / Collection Time Recei ching Time (Source) Location / Volume Laterality Blood Venipuncture / 06/03/2022 9:25 06/03/2022 9:25 Unknown AM [employer] AM [employer] Lois Carr MD LAB_1 Performing Organization Address City/State/ZIP Code Phon e Number [facility] [address] [place] [address] [facility] [address] [place] [address], [place] (ABNORMAL) BMP (05/30/2022 9:24 AM [employer])Only the most recent of2 resultswithin the time period is included. P athologist Signature Sodium 134 (L) 136 - 145 05/30/2022 [facility] mmol/L 3:36 PM [facility] Potassium 4.0 3.5 - 5.1 05/30/2022 [facility] mmol/L 3:36 PM [facility] Chloride 104 98 - 109 05/30/2022 [facility] mmol/L 3:36 PM [facility] CO2 23 20 - 29 05/30/2022 [facility] mmol/L 3:36 PM [facility] Anion Gap 7 7 - 16 05/30/2022 [facility] mmol/L 3:36 PM [facility] Calcium 8.2 (L) 8.4 - 10.4 05/30/2022 [facility] mg/dL 3:36 PM [facility] BUN 7 7 - 26 05/30/2022 [facility] mg/dL 3:36 PM [facility] Creatinine 0.60 0.55 - 1.02 05/30/2022 [facility] mg/dL 3:36 PM [facility] Glucose 130 (H) 70 - 100 05/30/2022 [facility] mg/dL 3:36 PM [facility] Comment: The given reference range is fo r the fasting state. Non-fasting reference range for glucose is 70 - 180 mg/dL. Hours Fasting 12 05/30/2022 3:36 PM [employer] [facility] GFR, Estimated >60 >60 mL/min/1.73m2 05/30/2022 3:3 6 PM [employer] [facility] Specimen Anatomical Collection Method / Collection Time Recei ching Time (Source) Location / Volume Laterality Blood Venipuncture / 05/30/2022 9:24 05/30/2022 9:24 Unknown AM [employer] AM [employer] Lois Carr MD LAB_1 Performing Organization Address City/State/ZIP Code Phon e Number [facility] [address] [place] [address] [facility] [address] [place] [phone] [facility] TSH Receptor Antibody (TRAB) (05/15/2022 8:11 AM CDT) P athologist Signature TSH Receptor 1.11 <=1.75 05/17/2022 [facility] Antibody IU/L 10:20 AM CDT LABORATORIES Comment: Performed By: [employer] [address] [place] [id number] Media Technician: Melquiades Pulido MD, PhD Specimen Anatomical Collection Method / Collection Time Recei ching Time (Source) Location / Volume Laterality Blood Venipuncture / 05/15/2022 8:11 05/15/2022 8:11 Unknown AM CDT AM CDT Lois Carr MD LAB_1 Performing Organization Address City/State/ZIP Code Phon e Number [place] [phone] Thyroid Stimulating Immunoglobulin (05/15/2022 8:11 AM CDT) [facility] gist Method Time Signature Thyroid Stimulating <0.10 <=0.54 05/18/2022 [facility] Immunoglobulins IU/L 4:01 AM CDT LABORATORIES Comment: INTERPRETIVE INFORMATION: Thyroid Stimul ating Immunoglobulin ?( TSI) 0.54 IU/L or less.........Consistent wit h healthy thyroid function or non-Graves thyroid or autoimmune dise ase. Those with healthy thyroid function typically have results less than 0.1 IU/L. 0.55 IU/L or greater......Consistent wit h Graves disease (autoimmune hyperthyroidism) This assay specifically detects thyroid stimulating autoantibodies. For diagnostic purposes, the results obtained from this assay should be used in combination with clinical examination, patient medical history, an d other findings. Performed By: [employer] [address] [place] [id number] Media Technician: Melquiades Pulido MD, PhD Specimen Anatomical Collection Method / Collection Time Recei ching Time (Source) Location / Volume Laterality Blood Venipuncture / 05/15/2022 8:11 05/15/2022 8:11 Unknown AM CDT AM CDT Lois Carr MD LAB_1 Performing Organization Address City/[facility]/ZIP Code Phon e Number [place] [phone] Free T3 (Expected: 28 days) (05/15/2022 8:11 AM CDT)Only the most recent of2 resultswithin the time period is included. P athologist Signature T3, Free 2.60 1.70 - 3.70 05/15/2022 [facility] pg/mL 12:56 PM CDT LABORATORY Specimen Anatomical Collection Method / Collection Time Recei ching Time (Source) Location / Volume Laterality Blood Venipuncture / 05/15/2022 8:11 05/15/2022 8:11 Unknown AM CDT AM CDT Lois Carr MD LAB_1 Performing Organization Address City/State/ZIP Code Phon e Number [facility] [address] [place] [address] (ABNORMAL) Complete Blood Count-W/Diff (05/15/2022 8:11 AM CDT) Analysis Performed At Patho logist Time Signature WBC 7.8 3.5 - 10.5 05/15/2022 [facility] x10(9)/L 8:30 AM CDT RBC 3.85 (L) 3.90 - 05/15/2022 [facility] 5.03 8:30 AM CDT x10(12)/L Hemoglobin 11.6 (L) 12.0 - 05/15/2022 [facility] 15.5 g/dL 8:30 AM CDT HCT 34.4 (L) 34.9 - 05/15/2022 [facility] 44.5 % 8:30 AM CDT MCV 89.4 80.0 - 05/15/2022 [facility] 100.0 fL 8:30 AM CDT MCH 30.1 27.6 - 05/15/2022 [facility] 33.3 pg 8:30 AM CDT MCHC 33.7 31.5 - 05/15/2022 [facility] 35.2 g/dL 8:30 AM CDT RDW 13.0 11.9 - 05/15/2022 [facility] 15.5 % 8:30 AM CDT Platelets 209 150 - 450 05/15/2022 [facility] x10(9)/L 8:30 AM CDT Neutrophil 6.0 1.7 - 7.0 05/15/2022 [facility] Absolute 10(9)/L 8:30 AM CDT Lymphocyte 1.0 1.0 - 4.8 05/15/2022 [facility] Absolute 10(9)/L 8:30 AM CDT Monocytes 0.7 0.2 - 0.9 05/15/2022 [facility] Absolute 10(9)/L 8:30 AM CDT Eosinophil 0.1 0.0 - 0.5 05/15/2022 [facility] Absolute 10(9)/L 8:30 AM CDT Basophil 0.0 0.0 - 0.3 05/15/2022 [facility] Absolute 10(9)/L 8:30 AM CDT Immature Gran % 0.5 0.0 - 0.5 05/15/2022 [facility] % 8:30 AM CDT Specimen Anatomical Collection Method / Collection Time Recei ching Time (Source) Location / Volume Laterality Blood Venipuncture / 05/15/2022 8:11 05/15/2022 8:11 Unknown AM CDT AM CDT Ro Orellana MD LAB_1 Performing Organization Address City/State/ZIP Code [facility] e Number [facility] [address] [place] [address] [phone] TSH (Expected: 28 days) (05/15/2022 8:11 AM CDT)Only the most recent of2 results within the time period is included. P athologist Signature TSH, Sensitive 2.26 0.30 - 05/15/2022 [facility] 4.50 12:56 PM CDT LABORATORY uIU/mL Specimen Anatomical Collection Method / Collection Time Recei ching Time (Source) Location / Volume Laterality Blood Venipuncture / 05/15/2022 8:11 05/15/2022 8:11 Unknown AM CDT AM CDT Lois Carr MD LAB_1 Performing Organization Address [facility] Phon e Number [facility] [address] [place] [address] Free T4 (Expected: 28 days) (05/15/2022 8:11 AM CDT)Only the most recent of2 resultswithin the time period is included. P athologist Signature T4, Free 0.80 0.70 - 1.50 05/15/2022 [facility] ng/dL 12:56 PM CDT LABORATORY Specimen Anatomical Collection Method / Collection Time Recei ching Time (Source) Location / Volume Laterality Blood Venipuncture / 05/15/2022 8:11 05/15/2022 8:11 Unknown AM CDT AM CDT Lois Carr MD LAB_1 Performing Organization Address [facility] Phon e Number [facility] [address] [place] [address] (ABNORMAL) Cortisol (05/15/2022 8:11 AM CDT) athologist Signature Cortisol 23.0 (H) 2.9 - 19.4 05/15/2022 [facility] mcg/dL 12:56 PM CDT LABORATORY Specimen Anatomical Collection Method / Collection Time Recei ching Time (Source) Location / Volume Laterality Blood Venipuncture / 05/15/2022 8:11 05/15/2022 8:11 Unknown AM CDT AM CDT Narrative [facility] - 05/15/2022 12:56 PM CDT Expected values AM (before 10am): 3.7-19.4 mcg/dL PM (after 5pm): 2.9-17.3 mcg/dL Lois Carr MD LAB_1 Performing Organization Address [facility] Phon e Number [facility] [address] [place] [address] FERRITIN (05/15/2022 8:11 AM CDT) athologist Signature Ferritin 15 - 05/15/2022 [facility] ng/mL 12:56 PM CDT LABORATORY Specimen Anatomical Collection Method / Collection Time Recei ching Time (Source) Location / Volume Laterality Blood Venipuncture / 05/15/2022 8:11 05/15/2022 8:11 Unknown AM CDT AM CDT Ro Orellana MD LAB_1 Performing Organization Address [facility]/ZIP Code Phon e Number [facility] [address] [place] [address] C-Reactive Protein (05/15/2022 8:11 AM CDT) athologist Signature C-Reactive 0.5 0.0 - 0.7 05/15/2022 [facility] Protein mg/dL 1:54 PM CDT LABORATORY Specimen Anatomical Collection Method / Collection Time Recei ching Time (Source) Location / Volume Laterality Blood Venipuncture / 05/15/2022 8:11 05/15/2022 8:11 Unknown AM CDT AM CDT Lois Guajardo MD LAB_1 Performing Organization Address City/[facility]/ZIP Code Phon e Number [facility] [address] [place] [address] [id number] - Collect in Lab (05/15/2022 8:11 AM CDT) [facility] Method Time Signature Hemoglobin A1C 5.3 <=5.6 % 05/15/2022 [facility] 6:23 PM CDT [facility] Specimen Anatomical Collection Method / Collection Time Recei ching Time (Source) Location / Volume Laterality Blood Venipuncture / 05/15/2022 8:11 05/15/2022 8:11 Unknown AM CDT AM CDT Lois Carr MD LAB_1 Performing Organization Address City/[facility]/ZIP Code Phon e Number [employer] [facility] [address] [address] Folate Only (4Hr Fast Recommended) (05/15/2022 8:11 AM CDT) athologist Signature Folate 14.6 >=7.0 ng/mL 05/15/2022 [facility] 2:25 PM CDT LABORATORY Specimen Anatomical Collection Method / Collection Time Recei ching Time (Source) Location / Volume Laterality Blood Venipuncture / 05/15/2022 8:11 05/15/2022 8:11 Unknown AM CDT AM CDT Lois Guajardo MD LAB_1 Performing Organization Address [facility] Phon e Number [facility] [address] [place] [address] Vitamin B12 Only (05/15/2022 8:11 AM CDT) athologist Signature Vitamin B12 411 213 - 816 05/15/2022 [facility] pg/mL 2:10 PM CDT LABORATORY Specimen Anatomical Collection Method / Collection Time Recei ching Time (Source) Location / Volume Laterality Blood Venipuncture / 05/15/2022 8:11 05/15/2022 8:11 Unknown AM CDT AM CDT Lois Guajardo MD LAB_1 Performing Organization Address [facility] Phon e Number [facility] [address] [place] [address] (ABNORMAL) Iron Profile (Iron,TIBC,%Sat.(Calc)) (05/15/2022 8:11 AM CDT) [facility] Method Time Signature Iron 55 50 - 170 05/15/2022 [facility] mcg/dL 2:04 PM CDT LABORATORY Transferrin 421 (H) 180 - 382 05/15/2022 [facility] mg/dL 2:04 PM CDT LABORATORY TIBC, Calculated 526 (H) 240 - 450 05/15/2022 [facility] mcg/dL 2:04 PM CDT LABORATORY % Saturation, 10 10 - 50 % 05/15/2022 [facility] Calculated 2:04 PM CDT LABORATORY Specimen Anatomical Collection Method / Collection Time Recei ching Time (Source) Location / Volume Laterality Blood Venipuncture / 05/15/2022 8:11 05/15/2022 8:11 Unknown AM CDT AM CDT Lois Guajardo MD LAB_1 Performing Organization Address [facility] Phon e Number [facility] [address] [place] [address] (ABNORMAL) ESR (05/15/2022 8:11 AM CDT) Patholo gist Method Time Signature Sedimentation Rate 30 (H) 0 - 20 05/15/2022 [facility] mm/hr 10:58 AM CDT Specimen Anatomical Collection Method / Collection Time Recei ching Time (Source) Location / Volume Laterality Blood Venipuncture / 05/15/2022 8:11 05/15/2022 8:11 Unknown AM CDT AM CDT Lois Guajardo MD LAB_1 Performing Organization Address City/State/ZIP Code Phon e Number [facility] [address] [place] [address] from Last 3 Months Insurance Payer Benefit Plan / Subscriber ID Effective Dates Phone Addre ss Type Group BCBS [facility] FEDERAL [id number] 2021-Present [phone] [id number] [place] [address] Destiney Cassidy Personal/Family Self [phone] (Home) [place] [address] Destiney Cassidy Personal/Family Self [phone] (Home) [place] [address] Care Teams Hims Manager Relationship Specialty Start Date End Date No Primary/Referring, Phy PCP - General 12/13/19
--- OUTSIDE RECORDS SUMMARY | 2022-06-23 17:52 | XMS_ITS | Encounter Summary ---
:1990 [facility] Address [address], [place] [address] Care Team Providers Name Role Phone No Primary/Referring, Phy Primary Care Provider Unavailable Encounter Details Date Type Department Care Team Description 05/01/2022 Telemedicine [facility] [address] H/O G raves' disease (Primary Dx); Endocrinology Eduardo Garcia MD Heart palpitations; [address] Hyp onatremia; [address] [place] [phone] (Wo rk) Social History Tobacco Use Types Packs/Day Years Used Date Smoking Tobacco: Never Smokeless Tobacco: Never Alcohol Use Standard Drinks/Week Comments Not Currently 0 (1 standard drink = 0.6 oz pure alcoho l) Sex Assigned at Date Recorded Not on file documented as of this encounter Patient Instructions Patient InstructionsLois Carr MD - 05/01/2022 9:05 AM CDT Fasting labs next available Followup as scheduled 07/22/21 documented in this encounter Progress Notes Lois Carr MD - 05/01/2022 9:05 AM CDT This visit was conducted via video. Location of clinician home. Location of patient home. Billing based on: Time Total time for the visit was 53 minutes including, but not limited to, [id number] time spent reviewing records, counseling, and coordination of care. ENDOCRINOLOGY PROGRESS NOTE - 05/01/2022 HISTORY OF PRESENT ILLNESS: The patient is a 31-year-old female with followup of thyroid dysfunction. She is 33 weeks plus 4 days gestation with ANDRE 06/15/22. However, the patient has a history of PROMat 35 weeks gestation with her previous . Patient's history is notable for Graves disease diagnosed in 2016. She was treated with propylthiouracil initially and then switched to methimazole because of a rash. Her Graves disease went into remission in 2019 during . She developed thyroiditis February of 2021 but has now been euthyroid for 1 year. The patient is concerned about continuation of monitoring and risk for recurrent thyroiditis. In addition, the patient has concerns of hypoglycemia symptoms with feeling shaky and having heart palpations episodically. This has been alleviated by eating sweets. She is concerned about having diabetes. The patient does not have a family history of diabetes, but reports her father tends to have hypoglycemia. A 1 hour glucose tolerance test last month was normal at 115. PAST MEDICAL HISTORY: Graves disease diagnosed in 2016, treated with methimazole. Graves went into remission in 2019 during . 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 history of stable pineal cyst, MRI [facility] between 2013 and 2017, hypermobility syndrome, paresthesias, postural orthostatic tachycardia syndrome. MEDICATIONS: Ferrous sulfate 325 mg daily, vitamin D 5000 international units daily. Vitals: LMP 05/21/2021 (Approximate) Estimated body mass index is 23.96 kg/m?? as calculated from the following: Height as of 02/21/22: 5' 7 (1.702 m). Weight as of 03/12/22: 153 lb (69.4 kg). @IOBRIEF@ General: Alert, Oriented, NAD Psych: Affect is normal, patient is appropriate, grooming is appropriate. Labs: Latest Reference Range & Units 12/24/21 08:17 02/21/22 14:22 04/10/22 09:17 T3 Free,Serum 1.70 - 3.70 pg/mL 2.90 2.40 T4, Free 0.70 - 1.50 ng/dL 0.90 0.80 0.80 TSH, Sensitive 0.30 - 4.50 uIU/mL 2.96 1.47 1.76 Thyr Stim Immunoglob <=0.54 IU/L <0.10 Latest Reference Range & Units 07/31/21 08:25 Thyroperoxidase Ab <=8 IU/ml 4 [facility] 04/16/22 Sodium 136 - 145 mmol/L 134 Low Potassium 3.4 - 5.3 mmol/L 3.7 Chloride 98 - 107 mmol/L 100 Carbon Dioxide (CO2) 22 - 29 mmol/L 22 Anion Gap 7 - 15 mmol/L 12 Urea Nitrogen 6.0 - 20.0 mg/dL 7.9 Creatinine 0.51 - 0.95 mg/dL 0.50 Low Calcium 8.6 - 10.0 mg/dL 8.9 Glucose 70 - 99 mg/dL 153 High Glu Gest Screen 1hr 50g 70 - 129 mg/dL 115 Resulting Agency [facility] Narrative Performed by LABORATORY This is a screening test for Gestational Diabetes Mellitus. If results are 130 mg/dL or greater, a Standard 100 gram Gestational 3 hour Glucose Tolerance shouldbe performed. Specimen Collected: 03/26/22 08:56 Last Resulted: 03/26/22 17:22 Received From: [facility] ASSESSMENT: 1. History of Graves disease, in remission. Patient is euthyroid. 2. Heart palpitations may be related to POTS or symptoms of dropping glucose. 3. Hyponatremia which may be physiologic given 4. Elevated glucose after random glucose test. However 1 hour OGTT is normal. PLAN: 1. I have reviewed lab findings with the patient in detail. She is reassured that she is euthyroid and TSH within goal for and Graves is in remission. 2. We discussed her concerns of heart palpitations and glucose level. Thurs far, no evidence of hypoglycemia, but certainly symptoms of dropping glucoses can manifest this way. This could also be symptoms of POTS, which was evaluated at an outside clinic. Patient is reassured that her 1 hour glucose test is normal. 3. Will check labs in next 1-2 weeks for TSH, Free T4, Free T3, TSI, Trab antibodies, fasting BMP and cortisol to eval for any other secondary causes of her labs/symptoms. 4. Assuming normal labs, I would recommend testing thyroid function about 6-8 weeks after deliver. 5. Patient would like to be seen in person in [place] and is schedule with Dr. Bradley 07/22/21.. Lois Carr MD documented in this encounter Plan of Treatment Upcoming Encounters Date Type Specialty Care Team Description 07/04/2022 Appointment Otolaryngology Opal Richardson MD [address] [facility] [address] N [phone] (Wo rk) 07/22/2022 Appointment Endocrinology Luis Daniel Bradley MBBS [address] N [phone] documented as of this encounter Results (ABNORMAL) Cortisol (05/15/2022 8:11 AM CDT) athologist Signature Cortisol 23.0 (H) 2.9 - 19.4 05/15/2022 [facility] mcg/dL 12:56 PM CDT LABORATORY Specimen Anatomical Collection Method / Collection Time Recei ching Time (Source) Location / Volume Laterality Blood Venipuncture / 05/15/2022 8:11 05/15/2022 8:11 Unknown AM CDT AM CDT Narrative [facility] - 05/15/2022 12:56 PM CDT Expected values AM (before 10am): 3.7-19.4 mcg/dL PM (after 5pm): 2.9-17.3 mcg/dL Lois Carr MD LAB_1 Performing Organization Address City/State/ZIP Code Phon e Number [facility] [address] [place] [address] [id number] - Collect in Lab (05/15/2022 8:11 AM CDT) [facility] Method Time Signature Hemoglobin A1C 5.3 <=5.6 % 05/15/2022 [facility] 6:23 PM CDT [facility] Specimen Anatomical Collection Method / Collection Time Recei ching Time (Source) Location / Volume Laterality Blood Venipuncture / 05/15/2022 8:11 05/15/2022 8:11 Unknown AM CDT AM CDT Lois Carr MD LAB_1 Performing Organization Address City/State/ZIP Code Phon e Number [facility] [address] [address] (ABNORMAL) BMP (05/15/2022 8:11 AM CDT) P athologist Signature Sodium 134 (L) 136 - 145 05/15/2022 [facility] mmol/L 10:52 AM CDT LABORATORY Potassium 4.5 3.5 - 5.1 05/15/2022 [facility] mmol/L 10:52 AM CDT LAB[facility] Chloride 103 98 - 109 05/15/2022 [facility] mmol/L 10:52 AM CDT LAB[facility] CO2 24 20 - 29 05/15/2022 [facility] mmol/L 10:52 AM CDT LAB[facility] Anion Gap 7 7 - 16 05/15/2022 [facility] mmol/L 10:52 AM CDT [facility] Calcium 8.3 (L) 8.4 - 10.4 05/15/2022 [facility] mg/dL 10:52 AM CDT [facility] BUN 6 (L) 7 - 26 05/15/2022 [facility] mg/dL 10:52 AM CDT [facility] Creatinine 0.60 0.55 - 1.02 05/15/2022 [facility] mg/dL 10:52 AM CDT LABOR[facility] Glucose 87 70 - 100 05/15/2022 [facility] mg/dL 10:52 AM CDT [facility]ORY Comment: The given reference range is fo r the fasting state. Non-fasting reference range for glucose is 70 - 180 mg/dL. Hours Fasting 10 05/15/2022 10:52 AM CDT [facility] GFR, Estimated >60 >60 05/15/2022 10:52 AM CDT [facility] mL/min/1.73m2 Specimen Anatomical Collection Method / Collection Time Recei ching Time (Source) Location / Volume Laterality Blood Venipuncture / 05/15/2022 8:11 05/15/2022 8:11 Unknown AM CDT AM CDT Lois Carr MD LAB_1 Performing Organization Address City/State/ZIP Code Phon e Number [facility] [address] [place] [phone] [facility] [address] [place] [phone] [facility] TSH Receptor Antibody (TRAB) (05/15/2022 8:11 AM CDT) P athologist Signature TSH Receptor 1.11 <=1.75 05/17/2022 [facility] Antibody IU/L 10:20 AM CDT LABORATORIES Comment: Performed By: [facility] [address] [place] [id number] Box Office Manager: Melquiades Pulido MD, PhD Specimen Anatomical Collection Method / Collection Time Recei ching Time (Source) Location / Volume Laterality Blood Venipuncture / 05/15/2022 8:11 05/15/2022 8:11 Unknown AM CDT AM CDT Lois Carr MD LAB_1 Performing Organization Address City/State/ZIP Code Phon e Number [employer] [place] [phone] Thyroid Stimulating Immunoglobulin (05/15/2022 8:11 AM CDT) [facility] Method Time Signature Thyroid Stimulating <0.10 [...] history, an d other findings. Performed By: [facility] [address] [place] [id number] Box Office Manager: Melquiades Pulido MD, PhD Specimen Anatomical Collection Method / Collection Time Recei ching Time (Source) Location / Volume Laterality Blood Venipuncture / 05/15/2022 8:11 05/15/2022 8:11 Unknown AM CDT AM CDT Lois Carr MD LAB_1 Performing Organization Address City/State/ZIP Code Phon e Number [facility] [address] [place] [phone] documented in this encounter Visit Diagnoses Diagnosis H/O Graves' disease - Primary Personal history of other endocrine, met abolic, and immunity disorders Heart palpitations Palpitations Hyponatremia Hyposmolality and/or hyponatremia Elevated glucose Other abnormal glucose documented in this encounter Care Teams Court Interpreter Relationship Specialty Start Date End Date No Primary/Referring, Phy PCP - General 12/13/19 documented as of this encounter
--- OUTSIDE RECORDS SUMMARY | 2022-06-23 17:52 | XMS_ITS | Encounter Summary ---
:1990 Author Organization [facility] Address [address] [place] [address] Care Team Providers Name Role Phone No Primary/Referring, Phy Primary Care Provider Unavailable Reason for Visit Reason Comments HIP PAIN Encounter Details Date Type Department Care Team Description 02/19/2022 Therapy [facility], Katty Arreaga PT Hip pain (Primary Dx); Physical Therapy [address] [facility] Instability of pelvis or thigh joint; [address] [place] [address] 23 weeks gestation of [place], [place] [address] [phone] Social History Tobacco Use Types Packs/Day Years Used Date Smoking Tobacco: Never Smokeless Tobacco: Never Alcohol Use Standard Drinks/Week Comments Not Currently 0 (1 standard drink = 0.6 oz pure alcoho l) Sex Assigned at Date Recorded Not on file documented as of this encounter Progress Notes Katty Arreaga, PT - 02/19/2022 12:00 PM CDT [facility] Daily Note Visit Number: [id number] BCBS: Other SOC: 08/29/2021 Referring Provider: Justin [...] Pt planning to conceive upcoming prn. 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 SUBJECTIVE: Functional Status/Patient Report: 23+ weeks. [place] and increase L sided radicular pain and L posterior pelvic girdle pain following car trip. Increase work demands with childhood screening and noting quick shooting pain with change of positions. Sleeping well with pillow support. Limited trial with SI belt as not up much as trying to protect myself OBJECTIVE: Today's Findings: Iliosacral alignment: L Posterior Rotation - R [place] T/L junction restrictions + Thigh Thurst L SLR 65 - improved + with hip adduction/IR TREATMENT TODAY: Manual Therapy (42007) x 15 min: Utilized for the purpose of improving mobility and blood flow alongwith pain reduction principles. Pre and Post assessment time included along with time for the explanations and role of manual therapy = facilitation to recovery vs fix. R SL for L/P Mobs - Grade 1-3 R SL for L/S sliders x 10 x 2 L SL for R MET for Anterior Pelvis Supine L Long [place] traction for L [place] Therapeutic Exercise (CPT 85575) x 5 Min: Utilized for the purpose of improving strength, ROM, endurance, and/or flexibility. Time included education re: principles of load and capacity, the role of inflammation in pain/exercise, the role of endogenous chemicals in aerobic exercises along with specifics regarding the how and why to below exercises. Access Code: [email or web address] - emailed on 02/05/22 RED DOT * exercises for current stage of and current s/s - reviewed Exercises Seated Hip Adduction Isometrics with Ball [...] - 7 x weekly - 5-10 reps* Sidelying Thoracic and Shoulder Rotation - 1 x daily - 7 x weekly - 5-10 reps Rocks and Wiggles - 1 x daily - 7 x weekly - 5-10 reps* Cat Cow to Child's Pose - 1 x daily - 7 x weekly - 5-10 reps* Self Care/Home Management Training (97209) x 10 Min: Training in activities of [...] Minutes: 30 Total Treatment Minutes: 30 ASSESSMENT: 23 weeks gestation. Pt broading care to include musculoskeletal care during toaddress LB/pelvic girdle. 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 Pain is localized to [...] tasks with ease in 4 (including child nutrition manager demands with increase ease) weeks. Ambulation: Ascend/descend stairs independently with reciprocal pattern with minimal to no symptoms and improved lower extremity alignment in 4 weeks. Sports/Leisure: Return to prior level of leisure or recreational activities, including cardio x 30 min and weight training without an increase in symptoms or limitations in 6 weeks. Therapist: Katty Arreaga, ROGELIO 12:15 PM 02/19/2022 documented in this encounter Plan of Treatment Upcoming Encounters Date Type Specialty Care Team Description 07/04/2022 Appointment Otolaryngology Opal Richardson MD [address] [facility] [address] [id number] (Wo rk) 07/22/2022 Appointment Endocrinology Luis Daniel Bradley, EVEYLNBS [address] [id number] documented as of this encounter Visit Diagnoses Diagnosis Hip pain - Primary Pain in joint, pelvic region and thigh Instability of pelvis or thigh joint Other joint derangement, not elsewhere c lassified, pelvic region and thigh 23 weeks gestation of state, incidental documented in this encounter Care Teams Family Readiness Support Assistant Relationship Specialty Start Date End Date No Primary/Referring, Phy PCP - General 12/13/19 documented as of this encounter
--- OUTSIDE RECORDS SUMMARY | 2022-06-23 17:52 | XMS_ITS | Encounter Summary ---
:1990 [facility] Address [address] [place] [address] Care Team Providers Name Role Phone No Primary/Referring, Phy Primary Care Provider Unavailable Encounter Details Date Type Department Care Team Description 04/10/2022 Lab Visit [facility] Acquired hypothyroidism [address] [place] [address] Social History Tobacco Use Types Packs/Day Years Used Date Smoking Tobacco: Never Smokeless Tobacco: Never Alcohol Use Standard Drinks/Week Comments Not Currently 0 (1 standard drink = 0.6 oz pure alcoho l) Sex Assigned at Date Recorded Not on file documented as of this encounter Plan of Treatment Upcoming Encounters Date Type Specialty Care Team Description 07/04/2022 Appointment Otolaryngology Opal Richardson MD [address] [facility] N [id number] (Wo rk) 07/22/2022 Appointment Endocrinology Luis Daniel Bradley MBBS [address] [facility] N [id number] documented as of this encounter Procedures Procedure Name Priority Date/Time Associated Diagnosis Comme nts T3, FREE Routine 04/10/2022 9:17 AM Acquired hypothyroidis m Results for this CDT procedure are i n the results section. TSH, SENSITIVE Routine 04/10/2022 9:17 AM Acquired hypothyroid ism Results for this CDT procedure are i n the results section. FREE T4 Routine 04/10/2022 9:17 AM Acquired hypothyroidis m Results for this CDT procedure are i n the results section. documented in this encounter Results TSH (04/10/2022 9:17 AM CDT) athologist Signature TSH, Sensitive 1.76 0.30 - 04/10/2022 [facility] 4.50 3:52 PM CDT LABORATORY uIU/mL Specimen Anatomical Collection Method / Collection Time Recei ching Time (Source) Location / Volume Laterality Blood Venipuncture / 04/10/2022 9:17 04/10/2022 9:17 Unknown AM CDT AM CDT Lois Carr MD LAB_1 Performing Organization Address [facility] Phon e Number [facility] [address] [place] [address] Free T4 (04/10/2022 9:17 AM CDT) athologist Signature T4, Free 0.80 0.70 - 1.50 04/10/2022 [facility] ng/dL 3:52 PM CDT LABORATORY Specimen Anatomical Collection Method / Collection Time Recei ching Time (Source) Location / Volume Laterality Blood Venipuncture / 04/10/2022 9:17 04/10/2022 9:17 Unknown AM CDT AM CDT Lois Carr MD LAB_1 Performing Organization Address [facility] Phon e Number [facility] [address] [place] [address] Free T3, Serum (04/10/2022 9:17 AM CDT) athologist Signature T3, Free 2.40 1.70 - 3.70 04/10/2022 [facility] pg/mL 6:04 PM CDT LABORATORY Specimen Anatomical Collection Method / Collection Time Recei ching Time (Source) Location / Volume Laterality Blood Venipuncture / 04/10/2022 9:17 04/10/2022 9:17 Unknown AM CDT AM CDT Lois Carr MD LAB_1 Performing Organization Address [facility] Phon e Number [facility] [address] [place] [address] documented in this encounter Visit Diagnoses Diagnosis Acquired hypothyroidism (HRC) Unspecified hypothyroidism documented in this encounter Care Teams Engineering Design Supervisor Relationship Specialty Start Date End Date No Primary/Referring, Phy PCP - General 12/13/19 documented as of this encounter
--- OUTSIDE RECORDS SUMMARY | 2022-06-23 17:52 | XMS_ITS | Encounter Summary ---
:1990 [facility] Address [address] [place] [address] Care Team Providers Name Role Phone No Primary/Referring, Phy Primary Care Provider Unavailable Encounter Details Date Type Department Care Team Description 05/15/2022 Lab Visit [facility] Decreased ferritin; [address] Acquired hypothyroidism (HRC ); [place] [address] H/O Graves' disease; [phone] Hyponatremia; Elevated glucos e; Glossitis; Throat pain; Oral aphthae Social History Tobacco Use Types Packs/Day Years Used Date Smoking Tobacco: Never Smokeless Tobacco: Never Alcohol Use Standard Drinks/Week Comments Not Currently 0 (1 standard drink = 0.6 oz pure alcoho l) Sex Assigned at Date Recorded Not on file documented as of this encounter Plan of Treatment Upcoming Encounters Date Type Specialty Care Team Description 07/04/2022 Appointment Otolaryngology Opal Richardson MD [address] [id number] (Wo rk) 07/22/2022 Appointment Endocrinology Luis Daniel Bradley MBBS [address] [id number] documented as of this encounter Procedures Procedure Name Priority Date/Time Associated Diagnosis Comme nts CBC AND DIFFERENTIAL Routine 05/15/2022 8:11 Decreased [...] procedu re are in the results section. COMPLETE BLOOD Routine 05/15/2022 8:11 Decreased ferritin Resu lts for this COUNT-W/DIFF AM CDT procedure are i n the results section. TSH, SENSITIVE Routine 05/15/2022 8:11 Acquired Results fo r this AM CDT hypothyroidism (HRC) procedu re are in the results section. BASIC METABOLIC PANEL Routine 05/15/2022 8:11 Hyponatremia Res ults for this AM CDT procedure are i n the results section. FREE T4 Routine 05/15/2022 8:11 Acquired Results for this AM CDT hypothyroidism (HRC) procedu re are in the results section. CORTISOL Routine 05/15/2022 8:11 Hyponatremia Results for this AM CDT procedure are i n the results section. FERRITIN Routine 05/15/2022 8:11 Decreased ferritin Result s for this AM CDT procedure are i n the results section. C-REACTIVE PROTEIN Routine 05/15/2022 8:11 Glossitis Results for this AM CDT Throat pain procedure are in Oral aphthae the results section. HGB A1C Routine 05/15/2022 8:11 Elevated glucose Results for this AM CDT procedure are i n the results section. FOLATE ONLY (4HR FAST [...] are in Oral aphthae the results section. documented in this encounter Results C-Reactive Protein (05/15/2022 8:11 AM CDT) athologist Signature C-Reactive 0.5 0.0 - 0.7 05/15/2022 [facility] Protein mg/dL 1:54 PM CDT LABORATORY Specimen Anatomical Collection Method / Collection Time Recei ching Time (Source) Location / Volume Laterality Blood Venipuncture / 05/15/2022 8:11 05/15/2022 8:11 Unknown AM CDT AM CDT Lois Guajardo MD LAB_1 Performing Organization Address [facility] Phon e Number [facility] [address] [place] [address] Folate Only (4Hr Fast Recommended) (05/15/2022 8:11 AM CDT) athologist Signature Folate 14.6 >=7.0 ng/mL 05/15/2022 [facility] 2:25 PM CDT LABORATORY Specimen Anatomical Collection Method / Collection Time Recei ching Time (Source) Location / Volume Laterality Blood Venipuncture / 05/15/2022 8:11 05/15/2022 8:11 Unknown AM CDT AM CDT Lois Guajardo MD LAB_1 Performing Organization Address [facility] Phon e Number [facility] [place] [address] Vitamin B12 Only (05/15/2022 8:11 AM CDT) athologist Signature Vitamin B12 411 213 - 816 05/15/2022 [facility] pg/mL 2:10 PM CDT LABORATORY Specimen Anatomical Collection Method / Collection Time Recei ching Time (Source) Location / Volume Laterality Blood Venipuncture / 05/15/2022 8:11 05/15/2022 8:11 Unknown AM CDT AM CDT Lois Guajardo MD LAB_1 Performing Organization Address [facility] Phon e Number [facility] [address] [place] [address] (ABNORMAL) Iron Profile (Iron,TIBC,%Sat.(Calc)) (05/15/2022 8:11 AM CDT) Patholo gist Method Time Signature Iron 55 50 - 170 05/15/2022 [facility] mcg/dL 2:04 PM CDT LABORATORY Transferrin 421 (H) 180 - 382 05/15/2022 [facility] mg/dL 2:04 PM CDT LABORATORY TIBC, Calculated 526 (H) 240 - 450 05/15/2022 [facility] mcg/dL 2:04 PM CDT LABORATORY % Saturation, 10 10 - 50 % 05/15/2022 [facility] Calculated 2:04 PM CDT LABORATORY Specimen Anatomical Collection Method / Collection Time Recei ching Time (Source) Location / Volume Laterality Blood Venipuncture / 05/15/2022 8:11 05/15/2022 8:11 Unknown AM CDT AM CDT Lois Guajardo MD LAB_1 Performing Organization Address City/State/ZIP Code Phon e Number [facility] [address] [place] [address] (ABNORMAL) ESR (05/15/2022 8:11 AM CDT) [facility] Method Time Signature Sedimentation Rate 30 (H) 0 - 20 05/15/2022 [facility] mm/hr 10:58 AM CDT Specimen Anatomical Collection Method / Collection Time Recei ching Time (Source) Location / Volume Laterality Blood Venipuncture / 05/15/2022 8:11 05/15/2022 8:11 Unknown AM CDT AM CDT Lois Guajardo MD LAB_1 Performing Organization Address City/[facility]/ZIP Code Phon e Number [facility] [address] [place] [address] (ABNORMAL) Complete Blood Count-W/Diff (05/15/2022 8:11 AM CDT) [facility] Signature WBC 7.8 3.5 - 10.5 05/15/2022 [facility] x10(9)/L 8:30 AM CDT RBC 3.85 (L) 3.90 - 05/15/2022 [facility] 5.03 8:30 AM CDT x10(12)/L Hemoglobin 11.6 (L) 12.0 - 05/15/2022 [facility] 15.5 g/dL 8:30 AM CDT HCT 34.4 (L) 34.9 - 05/15/2022 [facility] 44.5 % 8:30 AM CDT MCV 89.4 80.0 - 05/15/2022 [facility] 100.0 fL 8:30 AM CDT MCH 30.1 27.6 - 05/15/2022 [facility] 33.3 pg 8:30 AM CDT MCHC 33.7 31.5 - 05/15/2022 [facility] 35.2 g/dL 8:30 AM CDT RDW 13.0 11.9 - 05/15/2022 [facility] 15.5 % 8:30 AM CDT Platelets 209 150 - 450 05/15/2022 [facility] x10(9)/L 8:30 AM CDT Neutrophil 6.0 1.7 - 7.0 05/15/2022 [facility] Absolute 10(9)/L 8:30 AM CDT Lymphocyte 1.0 1.0 - 4.8 05/15/2022 [facility] Absolute 10(9)/L 8:30 AM CDT Monocytes 0.7 0.2 - 0.9 05/15/2022 [facility] Absolute 10(9)/L 8:30 AM CDT Eosinophil 0.1 0.0 - 0.5 05/15/2022 [facility] Absolute 10(9)/L 8:30 AM CDT Basophil 0.0 0.0 - 0.3 05/15/2022 [facility] Absolute 10(9)/L 8:30 AM CDT Immature Gran % 0.5 0.0 - 0.5 05/15/2022 [facility] % 8:30 AM CDT Specimen Anatomical Collection Method / Collection Time Recei ching Time (Source) Location / Volume Laterality Blood Venipuncture / 05/15/2022 8:11 05/15/2022 8:11 Unknown AM CDT AM CDT Ro Orellana MD LAB_1 Performing Organization Address City/State/ZIP Code Phon e Number [facility] [address] [place] [address] [phone] (ABNORMAL) Cortisol (05/15/2022 8:11 AM CDT) P athologist Signature Cortisol 23.0 (H) 2.9 - 19.4 05/15/2022 [facility] mcg/dL 12:56 PM CDT LABORATORY Specimen Anatomical Collection Method / Collection Time Recei ching Time (Source) Location / Volume Laterality Blood Venipuncture / 05/15/2022 8:11 05/15/2022 8:11 Unknown AM CDT AM CDT Narrative [facility] - 05/15/2022 12:56 PM CDT Expected values AM (before 10am): 3.7-19.4 mcg/dL PM (after 5pm): 2.9-17.3 mcg/dL Lois Carr MD LAB_1 Performing Organization Address City/State/ZIP Code Phon e Number [facility] [address] [place] [address] [id number] - Collect in Lab (05/15/2022 8:11 AM CDT) [facility] gist Method Time Signature Hemoglobin A1C 5.3 <=5.6 % 05/15/2022 [facility] 6:23 PM CDT CENTRAL LAB Specimen Anatomical Collection Method / Collection Time Recei ching Time (Source) Location / Volume Laterality Blood Venipuncture / 05/15/2022 8:11 05/15/2022 8:11 Unknown AM CDT AM CDT Lois Carr MD LAB_1 Performing Organization Address City/State/ZIP Code Phon e Number [facility] CENTRAL LAB [address] [phone] (ABNORMAL) BMP (05/15/2022 8:11 AM CDT) P athologist Signature Sodium 134 (L) 136 - 145 05/15/2022 [place] mmol/L 10:52 AM CDT LABORATORY Potassium 4.5 3.5 - 5.1 05/15/2022 [place] mmol/L 10:52 AM CDT LABORATORY Chloride 103 98 - 109 05/15/2022 [place] mmol/L 10:52 AM CDT LABORATORY CO2 24 20 - 29 05/15/2022 [place] mmol/L 10:52 AM CDT LABORATORY Anion Gap 7 7 - 16 05/15/2022 [place] mmol/L 10:52 AM CDT LABORATORY Calcium 8.3 (L) 8.4 - 10.4 05/15/2022 [place] mg/dL 10:52 AM CDT LABORATORY BUN 6 (L) 7 - 26 05/15/2022 [place] mg/dL 10:52 AM CDT LABORATORY Creatinine 0.60 0.55 - 1.02 05/15/2022 [place] mg/dL 10:52 AM CDT LABORATORY Glucose 87 70 - 100 05/15/2022 [place] mg/dL 10:52 AM CDT LABORATORY Comment: The given reference range is fo r the fasting state. Non-fasting reference range for glucose is 70 - 180 mg/dL. Hours Fasting 10 05/15/2022 10:52 AM CDT [facility] GFR, Estimated >60 >60 05/15/2022 10:52 AM CDT [facility]ORATORY mL/min/1.73m2 Specimen Anatomical Collection Method / Collection Time Recei ching Time (Source) Location / Volume Laterality Blood Venipuncture / 05/15/2022 8:11 05/15/2022 8:11 Unknown AM CDT AM CDT Lois Carr MD LAB_1 Performing Organization Address City/State/ZIP Code Phon e Number [place] [facility] [address] [place] [address] [facility] [address] [place] [address], [phone] [facility] TSH Receptor Antibody (TRAB) (05/15/2022 8:11 AM CDT) P athologist Signature TSH Receptor 1.11 <=1.75 05/17/2022 [facility] Antibody IU/L 10:20 AM CDT LABORATORIES Comment: Performed By: [facility] [address] [place] [address] Biopharmaceutical Rep: Melquiades Pulido MD, PhD Specimen Anatomical Collection Method / Collection Time Recei ching Time (Source) Location / Volume Laterality Blood Venipuncture / 05/15/2022 8:11 05/15/2022 8:11 Unknown AM CDT AM CDT Lois Carr MD LAB_1 Performing Organization Address City/State/ZIP Code Phon e Number [facility] [address] [place], [place] [phone] Thyroid Stimulating Immunoglobulin (05/15/2022 8:11 AM CDT) Patholo gist Method Time Signature Thyroid Stimulating <0.10 <=0.54 05/18/2022 [facility] Immunoglobulins IU/L 4:01 AM CDT LABORATORIES Comment: [...] history, an d other findings. Performed By: [facility] [address] [place] [address] Biopharmaceutical Rep: Melquiades Pulido MD, PhD Specimen Anatomical Collection Method / Collection Time Recei ching Time (Source) Location / Volume Laterality Blood Venipuncture / 05/15/2022 8:11 05/15/2022 8:11 Unknown AM CDT AM CDT Lois Carr MD LAB_1 Performing Organization Address [facility]/State/ZIP Code Phon e Number [facility] [address] [place], [place] [phone] Free T3 (Expected: 28 days) (05/15/2022 8:11 AM CDT) P athologist Signature T3, Free 2.60 1.70 - 3.70 05/15/2022 [facility] pg/mL 12:56 PM CDT LABORATORY Specimen Anatomical Collection Method / Collection Time Recei ching Time (Source) Location / Volume Laterality Blood Venipuncture / 05/15/2022 8:11 05/15/2022 8:11 Unknown AM CDT AM CDT Lois Carr MD LAB_1 Performing Organization Address City/[facility] Code Phon e Number [facility] [address] [place] [address] Free T4 (Expected: 28 days) (05/15/2022 8:11 AM CDT) athologist Signature T4, Free 0.80 0.70 - 1.50 05/15/2022 [facility] ng/dL 12:56 PM CDT LABORATORY Specimen Anatomical Collection Method / Collection Time Recei ching Time (Source) Location / Volume Laterality Blood Venipuncture / 05/15/2022 8:11 05/15/2022 8:11 Unknown AM CDT AM CDT Lois Carr MD LAB_1 Performing Organization Address [facility] Phon e Number [facility] [address] [place] [address] TSH (Expected: 28 days) (05/15/2022 8:11 AM CDT) athologist Signature TSH, Sensitive 2.26 0.30 - 05/15/2022 [facility] 4.50 12:56 PM CDT LABORATORY uIU/mL Specimen Anatomical Collection Method / Collection Time Recei ching Time (Source) Location / Volume Laterality Blood Venipuncture / 05/15/2022 8:11 05/15/2022 8:11 Unknown AM CDT AM CDT Lois Carr MD LAB_1 Performing Organization Address [facility] Phon e Number [facility] [address] [place] [address] FERRITIN (05/15/2022 8:11 AM CDT) athologist Signature Ferritin 15 9 - 204 05/15/2022 [facility] ng/mL 12:56 PM CDT LABORATORY Specimen Anatomical Collection Method / Collection Time Recei ching Time (Source) Location / Volume Laterality Blood Venipuncture / 05/15/2022 8:11 05/15/2022 8:11 Unknown AM CDT AM CDT Ro Orellana MD LAB_1 Performing Organization Address City/[facility] Phon e Number [facility] [address] [place] [address] documented in this encounter Visit Diagnoses Diagnosis Decreased ferritin Other nonspecific findings on examinatio n of blood Acquired hypothyroidism (HRC) Unspecified hypothyroidism H/O Graves' disease Personal history of other endocrine, met abolic, and immunity disorders Hyponatremia Hyposmolality and/or hyponatremia Elevated glucose Other abnormal glucose Glossitis Throat pain Oral aphthae documented in this encounter Care Teams Manager Unit Relationship Specialty Start Date End Date No Primary/Referring, Phy PCP - General 12/13/19 documented as of this encounter
--- OUTSIDE RECORDS SUMMARY | 2022-06-23 17:52 | XMS_ITS | Encounter Summary ---
:1990 Author Organization [facility] Address [address] [place] [address] Care Team Providers Name Role Phone No Primary/Referring, Phy Primary Care Provider Unavailable Reason for Visit Reason Comments Hip Problem Encounter Details Date Type Department Care Team Description 03/05/2022 Therapy [facility], Katty Arreaga PT Hip pain (Primary Dx); Physical Therapy [address] [facility] Instability of pelvis or thigh joint; [address] [place] [address] 25 weeks gestation of [place], [place] [address] [phone] Social History Tobacco Use Types Packs/Day Years Used Date Smoking Tobacco: Never Smokeless Tobacco: Never Alcohol Use Standard Drinks/Week Comments Not Currently 0 (1 standard drink = 0.6 oz pure alcoho l) Sex Assigned at Date Recorded Not on file documented as of this encounter Progress Notes Katty Arreaga, PT - 03/05/2022 9:00 AM CDT [facility] Orthopaedic [place] [facility] Daily Note Visit Number: 15 BCBS: Other SOC: 08/29/2021 Referring Provider: Justin [...] Pt planning to conceive upcoming prn. 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 SUBJECTIVE: Functional Status/Patient Report: 25 weeks. Was in ER over weekend for pre- contractions evaluation LB more achy but less pelvic sharp specific. Had appointment for son and concerned about muscle tone and neuro development thus needing to see specialist and feels stressful per pt report. Sleeping well with pillow support. Denies nerve pain in LE. Working to wear shoes more consistent to keep feet comfortable and supported. OBJECTIVE: Today's Findings: Iliosacral alignment: WNL's L Mild femoral nerve restriction LFC > femoral > Obturator T/L junction restrictions TREATMENT TODAY: Manual Therapy (58618) x 10 min: Utilized for the purpose of improving mobility and blood flow alongwith pain reduction principles. Pre and Post assessment time included along with time for the explanations and role of manual therapy = facilitation to recovery vs fix. B SL for L/P Mobs - Grade 1-3 B SL for L femoral sliders x 5 B SL for T/L glides - Grade 1/2 Therapeutic Exercise (CPT 28762) x 10 Min: Utilized for the purpose of improving strength, ROM, endurance, and/or flexibility. Time included education re: principles of load and capacity, the role of inflammation in pain/exercise, the role of endogenous chemicals in aerobic exercises along with specifics regarding the how and why to below exercises. Access Code: [email or web address] Open book and all 4 mobility in [...] - 5-10 reps* Self Care/Home Management Training (71993) x 10 Min: Training in activities of [...] use from previous Timed Code Treatment Minutes: 40 Total Treatment Minutes: 40 ASSESSMENT: 25 weeks gestation with ANDRE on 06/15/22. Pt in ER over weekend for concerns over pre-contractions. Monitored and watch and see approach. Iliosacral alignment WNL's and absent report of pelvic girdle s/s on this date but rather global stiffness/tightness to L/P and Mid T. 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 Pain is localized [...] tasks with ease in 4 (including child advocate demands with increase ease) weeks. Ambulation: Ascend/descend stairs independently with reciprocal pattern with minimal to no symptoms and improved lower extremity alignment in 4 weeks. Sports/Leisure: Return to prior level of leisure or recreational activities, including cardio x 30 min and weight training without an increase in symptoms or limitations in 6 weeks. Therapist: Katty Arreaga, PT 9:00 AM 03/05/2022 documented in this encounter Plan of Treatment Upcoming Encounters Date Type Specialty Care Team Description 07/04/2022 Appointment Otolaryngology Opal Richardson MD [address] [phone] (Wo rk) 07/22/2022 Appointment Endocrinology Luis Daniel Bradley MBBS [address] [phone] documented as of this encounter Visit Diagnoses Diagnosis Hip pain - Primary Pain in joint, pelvic region and thigh Instability of pelvis or thigh joint Other joint derangement, not elsewhere c lassified, pelvic region and thigh 25 weeks gestation of state, incidental documented in this encounter Care Teams Plate Slitter And Inspector Relationship Specialty Start Date End Date No Primary/Referring, Phy PCP - General 12/13/19 documented as of this encounter
--- OUTSIDE RECORDS SUMMARY | 2022-06-23 17:52 | XMS_ITS | Encounter Summary ---
:1990 Author Organization [facility] Address [address] [place] [address] Care Team Providers Name Role Phone No Primary/Referring, Phy Primary Care Provider Unavailable Encounter Details Date Type Department Care Team Description 06/03/2022 Lab Visit [facility] Elevated glucose level [address] [place] [address] Social History Tobacco Use [...] Description 07/04/2022 Appointment [facility]ol[facility]ology Opal Richardson [facility] [address] [facility] [id number] (Wo rk) 07/22/2022 Appointment Endocrinology Luis Daniel Bradley MBBS [address] [facility] N [id number] documented as of this encounter Procedures Procedure Name Priority Date/Time Associated Diagnosis Comme nts GLUCOSE Routine 06/03/2022 9:25 AM Elevated glucose Resul ts for this VASCULAR SURGERY PHYSICIAN level procedure are i n the results section . documented in this encounter Results Glucose - Fasting > 8 hrs Fasting (06/03/2022 9:25 AM VASCULAR SURGERY PHYSICIAN) P athologist Signature Glucose 82 70 - 100 06/03/2022 [place] mg/dL 5:42 PM VASCULAR SURGERY PHYSICIAN LABORATORY Comment: The given reference range is fo r the fasting state. Non-fasting reference range for glucose is 70 - 180 mg/dL. Hours Fasting 8 06/03/2022 5:42 PM VASCULAR SURGERY PHYSICIAN [facility] Specimen Anatomical Collection Method / Collection Time Recei ching Time (Source) Location / Volume Laterality Blood Venipuncture / 06/03/2022 9:25 06/03/2022 9:25 Unknown AM VASCULAR SURGERY PHYSICIAN AM VASCULAR SURGERY PHYSICIAN Lois Carr MD LAB_1 Performing Organization Address City/State/ZIP Code Phon e Number [facility] [address] [place] [address] [facility] [address] [place] [address], [facility] documented in this encounter Visit Diagnoses Diagnosis Elevated glucose level documented in this encounter Care Teams Creative Services Writer Relationship Specialty Start Date End Date No Primary/Referring, Phy PCP - General 12/13/19 documented as of this encounter
--- OUTSIDE RECORDS SUMMARY | 2022-06-23 17:52 | XMS_ITS | Encounter Summary ---
:1990 [facility] Address [address] [place] [address] Care Team Providers Name Role Phone No Primary/Referring, [facility] Primary Care Provider Unavailable Reason for Visit Reason Comments Bumps On tonue APPOINTMENT REQUEST Encounter Details Date Type Department Care Team Description 02/20/2022 Nurse Triage [place] [address] Family No Bumps (On tonue); Medicine Primary/Referrin APPOINTMENT REQUEST [id number] [place] [phone] Social History Tobacco Use Types Packs/Day Years Used Date Smoking Tobacco: Never Smokeless Tobacco: Never Alcohol Use Standard Drinks/Week Comments Not Currently 0 (1 standard drink = 0.6 oz pure alcoho l) Sex Assigned at Date Recorded Not on file documented as of this encounter Nursing Notes Stephanie Kuo RN - 02/20/2022 4:29 PM CDT Patient calling. Having tongue soreness with swollen bumps, States she just and an appt with an ENT,at [facility], and that she needs to see a primary care provider. Is 22 weeks . They think an autoimmune issue per patient. Denies other concerns. States her tongue is not swollen, but bumps are swollen. Talking clearly. Denies any breathing concerns. Scheduled for tomorrow. Is 22 weeks . Advised to call back if worsens, or be seen immediately, agrees. Problem list reviewed as related to this call. Reason for Disposition Patient wants to be seen Protocols used: Mouth [id number] Future Appointments Date Time Provider Department Center 02/21/2022 1:40 PM Jm Agee PA-C [id number] PN [facility] 02/26/2022 9:00 AM Katty Arreaga, PT [facility] 03/05/2022 9:00 AM Katty Arreaga M, PT [facility] 03/11/2022 2:15 PM Katty Arreaga M, PT [facility] PT [facility] 03/19/2022 9:00 AM Katty Arreaga M, PT [facility] PT [facility] 03/27/2022 8:30 AM Katty Arreaga M, PT [facility] PT [facility] 04/03/2022 7:30 AM Katty Arreaga M, PT [facility] PT [facility] 04/09/2022 9:00 AM Katty Arreaga M, PT [facility] PT [facility] 04/16/2022 9:30 AM Katty Arreaga M, PT [facility] PT PN [facility] documented in this encounter Plan of Treatment Upcoming Encounters Date Type Specialty Care Team Description 07/04/2022 Appointment Otolaryngology Opal Richardson MD [address] [phone] (Wo rk) 07/22/2022 Appointment Endocrinology Luis Daniel Bradley MBBS [address] [id number] documented as of this encounter Visit Diagnoses Not on filedocumented in this encounter Care Teams Machinist Wood Relationship Specialty Start Date End Date No Primary/Referring, Phy PCP - General 12/13/19 documented as of this encounter
--- OUTSIDE RECORDS SUMMARY | 2022-06-23 17:52 | XMS_ITS | Encounter Summary ---
:1990 Author Organization [facility] Address [address] [place] [address] Care Team Providers Name Role Phone No Primary/Referring, Phy Primary Care Provider Unavailable Encounter Details Date Type Department Care Team Description 02/21/2022 Lab Visit [place] [facility] Glossitis; [address] state, incidental; [place] [address] History of iron deficiency; [phone] Subacute thyroi ditis Social History Tobacco Use Types Packs/Day Years Used Date Smoking Tobacco: Never Smokeless Tobacco: Never Alcohol Use Standard Drinks/Week Comments Not Currently 0 (1 standard drink = 0.6 oz pure alcoho l) Sex Assigned at Date Recorded Not on file documented as of this encounter Plan of Treatment Upcoming Encounters Date Type Specialty Care Team Description 07/04/2022 Appointment Otolaryngology Opal Richardson MD [address] [facility] N [id number] (Wo rk) 07/22/2022 Appointment Endocrinology Luis Daniel Bradley MBBS [address] [facility] N [id number] documented as of this encounter Procedures Procedure Name Priority Date/Time Associated Diagnosis Comme nts TSH, SENSITIVE Routine 02/21/2022 2:22 PM Subacute thyroiditis Results for this CDT procedure are i n the results section. FREE T4 Routine 02/21/2022 2:22 PM Subacute thyroiditis R esults for this CDT procedure are i n the results section. FERRITIN Routine 02/21/2022 2:22 PM Glossitis Results for this CDT state, procedure ar e in incidental the results History of iron section. deficiency IRON PROFILE Routine 02/21/2022 2:22 PM Glossitis Results for this (IRON,TIBC,%SAT.(CA CDT state, proce dure are in LC)) incidental the results History of iron section. deficiency documented in this encounter Results TSH, Sensitive (02/21/2022 2:22 PM CDT) athologist Signature TSH, Sensitive 1.47 0.30 - 02/24/2022 [facility] 4.50 11:03 AM CDT LABORATORY uIU/mL Specimen Anatomical Collection Method / Collection Time Recei ching Time (Source) Location / Volume Laterality Blood Venipuncture / 02/21/2022 2:22 02/21/2022 2:22 Unknown PM CDT PM CDT Lois Carr MD LAB_1 Performing Organization Address City/[facility]/ZIP [facility] Phon e Number [facility] [address] [place] [address] Free T4 (02/21/2022 2:22 PM CDT) athologist Signature T4, Free 0.80 0.70 - 1.50 02/24/2022 [facility] ng/dL 11:03 AM CDT LABORATORY Specimen Anatomical Collection Method / Collection Time Recei ching Time (Source) Location / Volume Laterality Blood Venipuncture / 02/21/2022 2:22 02/21/2022 2:22 Unknown PM CDT PM CDT Lois Carr MD LAB_1 Performing Organization Address City/[facility]/ZIP [facility] Phon e Number [facility] [address] [place] [address] (ABNORMAL) Total Iron and Iron Binding Capacity (02/21/2022 2:22 PM CDT) [facility] Method Time Signature Iron 104 50 - 170 02/21/2022 [facility] mcg/dL 8:49 PM CDT LABORATORY Transferrin 410 (H) 180 - 382 02/21/2022 [facility] mg/dL 8:49 PM CDT LABORATORY TIBC, Calculated 513 (H) 240 - 450 02/21/2022 [facility] mcg/dL 8:49 PM CDT LABORATORY % Saturation, 20 10 - 50 % 02/21/2022 [facility] Calculated 8:49 PM CDT LABORATORY Specimen Anatomical Collection Method / Collection Time Recei ching Time (Source) Location / Volume Laterality Blood Venipuncture / 02/21/2022 2:22 02/21/2022 2:22 Unknown PM CDT PM CDT Jm Agee PA-C LAB_1 Performing Organization Address City/[facility] Phon e Number [facility] [address] [place] [address] (ABNORMAL) Ferritin (02/21/2022 2:22 PM CDT) athologist Signature Ferritin 8 (L) 9 - 204 02/21/2022 [facility] ng/mL 9:03 PM CDT LABORATORY Specimen Anatomical Collection Method / Collection Time Recei ching Time (Source) Location / Volume Laterality Blood Venipuncture / 02/21/2022 2:22 02/21/2022 2:22 Unknown PM CDT PM CDT Jm Agee PA-C LAB_1 Performing Organization Address [facility] Phon e Number [facility] [address] [place] [address] documented in this encounter Visit Diagnoses Diagnosis Glossitis state, incidental History of iron deficiency Personal history of diseases of blood an d blood-forming organs Subacute thyroiditis (HRC) Subacute thyroiditis documented in this encounter Care Teams Product Managent Intern Relationship Specialty Start Date End Date No Primary/Referring, Phy PCP - General 12/13/19 documented as of this encounter
--- OUTSIDE RECORDS SUMMARY | 2022-06-23 17:52 | XMS_ITS | Encounter Summary ---
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); Physical Therapy [address] [facility] 30 weeks gestation of [address] [place] [address] [place], [place] [address] [phone] Social History Tobacco Use Types Packs/Day Years Used Date Smoking Tobacco: Never Smokeless Tobacco: Never Alcohol Use Standard Drinks/Week Comments Not Currently 0 (1 standard drink = 0.6 oz pure alcoho l) Sex Assigned at Date Recorded Not on file documented as of this encounter Progress Notes Katty Arreaga, PT - 04/03/2022 7:30 AM CDT [facility] Daily Note Visit Number: 18 BCBS: Other SOC: 08/29/2021 Referring Provider: Justin [...] Pt planning to conceive upcoming prn. 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 SUBJECTIVE: Functional Status/Patient Report: 29+ weeks. Increase noted contractions again this week. Posteriorpelvis more bothersome this week. One day more one side the next a different. Also reporting moreneck related s/s with changing posture. scheduled for 06/10/22 but still considering . OBJECTIVE: Today's Findings: Iliosacral alignment: R anterior innominate presentation in standing L Mild femoral nerve restriction LFC > femoral > Obturator Moderate - T > T/L restrictions Strong L Lat and QL and anterior chest restrictions TREATMENT TODAY: Manual Therapy (63347) x 15 min: Utilized for the purpose [...] for R MET to anterior innominate rotation Therapeutic Exercise (CPT 97245) x 5 Min: Review - no additions: Utilized for the purpose of improving strength, ROM, endurance, and/or flexibility. Time included education re: principles of load and capacity, the role of inflammation in pain/exercise, the role of endogenous chemicals in aerobic exercises along with specifics regarding the how and why to below exercises. Access Code: [email or web address] Open book and all 4 mobility in [...] - 5-10 reps* - Modification to seated Consulting Solution Manager version on 03/27 Rocks and Wiggles - 1 x daily - 7 x weekly - 5-10 reps* - Modification to seated head boys golf coach with shoulderdips on 03/27 Cat Cow to Child's Pose - 1 x daily - 7 x weekly - 5-10 reps* - Modification to table top version on03/27 HS/Adductor releases in tall sitting one leg extended one on ground - added 03/27 Self Care/Home Management Training (70629) x 10 Min: Training in activities of [...] Minutes: 30 Total Treatment Minutes: 30 ASSESSMENT: 29+ weeks gestation with ANDRE on 06/15/22. Posterior pelvic girdle moving pain > limitation on this date. Global stiffness/tightness to T and T/L junction. 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 Pain is localized to [...] management tasks with ease in 4 (including special needs child caregiver demands with increase ease) weeks. Ambulation: Ascend/descend stairs independently with reciprocal pattern with minimal to no symptoms and improved lower extremity alignment in 4 weeks. Sports/Leisure: Return to prior level of leisure or recreational activities, including cardio x 30 min and weight training without an increase in symptoms or limitations in 6 weeks. 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
--- OUTSIDE RECORDS SUMMARY | 2022-06-23 17:52 | XMS_ITS | Encounter Summary ---
:1990 Author Organization [facility] Address [address] [place] [address] Care Team Providers Name Role Phone No Primary/Referring, Phy Primary Care Provider Unavailable Reason for Visit Reason Comments Lab Orders Needed Encounter Details Date Type Department Care Team Description 02/21/2022 Nurse Triage Careline Unknown, Physician Lab Orders Needed [address] [place], [place] [address] [place], [place] [phone] [address] Social History Tobacco Use Types Packs/Day Years Used Date Smoking Tobacco: Never Smokeless Tobacco: Never Alcohol Use Standard Drinks/Week Comments Not Currently 0 (1 standard drink = 0.6 oz pure alcoho l) Sex Assigned at Date Recorded Not on file documented as of this encounter Nursing Notes Julieta Diaz RN - 02/24/2022 10:27 AM CDT Left detailed message on identified VM advising pt that thyroid labs were added on to specimen from 02/21/22 Lois Carr MD - 02/24/2022 10:18 AM CDT Labs added to current blood work. Leida Harvey RN - 02/21/2022 10:02 PM CDT Patient/ocular care technician request: Input needed Requesting LAB Specific Request: Pt is requesting order for Thyroid lab. She was seen today for glossitis. Clinician route to Flag for care team/Care team pool Verified patient identity using three identifiers: yes Situation/Background (brief explanation of current symptoms/situation): Pt states she gets thyroid checks every 6-8 weeks. She was seen today for glossitis . Pt is requesting Dr Lilly Abreu to order thyroid lab for her. Pt denies worsening symptoms since her visit. Baring/Parity: No obstetric history on file. Gestational Age (by ANDRE or LMP): Unknown Patient blood type: No results found for requested labs within last 300 days. Does patient have RH negative blood type? Unknown: consider Rhogam Reviewed with patient pertinent medical history and risk status (as it relates to the call): Yes grave disease Reviewed with patient pertinent medications (as they relate to call): Yes Reviewed with patient pertinent allergies (as they relate to call): Yes Allergies Allergen Reactions Cefzil [Cefprozil] Hives Hives, swelling of hands/feet Penicillins Hives Hives, swelling of hands/feet Cephalosporins Ciprofloxacin Ciprofloxacin Nerve pain Penicillins PN: rash Propylthiouracil Rash Metoclopramide Anxiety and Other, see comments Restlessness, squirming Restlessness, squirming Reason for Disposition Caller requesting an appointment, triage offered and declined Lab appointment Protocols used: PCP Call - No [id number] Will route this request pt Dr Carr team . Leida Harvey RN 02/21/2022, 10:19 PM Janet Fernandez Y - 02/21/2022 8:24 PM CDT Verified patient identity using three identifiers: Yes Caller's relationship to patient: Self Do you get your primary care at a [facility] or [facility] clinic: No/Other Other (Clinic Name)no Primary [facility] Select Member: No Are you calling about a positive COVID result: No Symptoms Describe the reason for call/symptoms (include location and duration if applicable): Pt states she is [address] Lois Carr put thyroid blood test order for her. Note: pt states she goes outside [facility] for her OB Plan:The current callback time to speak with a nurse is 2.5hrs. If your symptoms change or worsen, or if you have not received a call back in the stated timeframe, please call us back documented in this encounter Plan of Treatment Upcoming Encounters Date Type Specialty Care Team Description 07/04/2022 Appointment Otolaryngology Opal Richardson MD [address] [facility] N [address] (Wo rk) 07/22/2022 Appointment Endocrinology Luis Daniel Bradley MBBS [address] [facility] N [id number] documented as of this encounter Results TSH, Sensitive (02/21/2022 2:22 PM CDT) athologist Signature TSH, Sensitive 1.47 0.30 - 02/24/2022 [facility] 4.50 11:03 AM CDT LABORATORY uIU/mL Specimen Anatomical Collection Method / Collection Time Recei ching Time (Source) Location / Volume Laterality Blood Venipuncture / 02/21/2022 2:22 02/21/2022 2:22 Unknown PM CDT PM CDT Lois Crar MD LAB_1 Performing Organization Address City/State/ZIP Code Phon e Number [facility] [address] [place] [address] Free T4 (02/21/2022 2:22 PM CDT) P athologist Signature T4, Free 0.80 0.70 - 1.50 02/24/2022 [facility] ng/dL 11:03 AM CDT LABORATORY Specimen Anatomical Collection Method / Collection Time Recei ching Time (Source) Location / Volume Laterality Blood Venipuncture / 02/21/2022 2:22 02/21/2022 2:22 Unknown PM CDT PM CDT Lois Carr MD LAB_1 Performing Organization Address City/State/ZIP Code Phon e Number [facility] [address] [place] [address] documented in this encounter Visit Diagnoses Diagnosis Subacute thyroiditis (HRC) - Primary Subacute thyroiditis documented in this encounter Care Teams Head Of Quality Relationship Specialty Start Date End Date No Primary/Referring, Phy PCP - General 12/13/19 documented as of this encounter
--- OUTSIDE RECORDS SUMMARY | 2022-06-23 17:52 | XMS_ITS | Encounter Summary ---
:1990 [facility] Address [address] [place] [address] Care Team Providers Name Role Phone No Primary/Referring, Phy Primary Care Provider Unavailable Reason for Visit Reason Comments Hip Problem Encounter Details Date Type Department Care Team Description 04/17/2022 Therapy [facility], Katty Arreaga, PT Instability of pelvis Physical Therapy [address] [facility] or thigh joint (Primary [address] [place] [address] Dx) [place], [place] [address] [phone] Social History Tobacco Use Types Packs/Day Years Used Date Smoking Tobacco: Never Smokeless Tobacco: Never Alcohol Use Standard Drinks/Week Comments Not Currently 0 (1 standard drink = 0.6 oz pure alcoho l) Sex Assigned at Date Recorded Not on file documented as of this encounter Progress Notes Katty Arreaga, PT - 04/17/2022 8:30 AM CDT [facility] Daily Note Visit Number: 20 BCBS: Other SOC: 08/29/2021 Referring Provider: Justin [...] Pt planning to conceive upcoming prn. 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 SUBJECTIVE Functional Status/Patient Report: 31+ weeks. Decrease contractions this week and ability to regulate constipation. R Posterior pelvis more bothersome this week and increase in intensity over last limiting function including cares for son. Mom/Dad assisting. scheduled for 06/10/22 but still considering . OBJECTIVE: Today's Findings: Iliosacral alignment: WNL + Thigh Thrust R + Pain with any SLS time and or hip flexion attempt in standing TREATMENT TODAY: Manual Therapy (94824) x 15 min: Utilized for the purpose of improving mobility and blood flow alongwith pain reduction principles. Pre and Post assessment time included along with time for the explanations and role of manual therapy = facilitation to recovery vs fix. B SL for L/P Mobs - Grade 1-3 B SL for T/L glides - Grade 1/2 L SL for R L/P HVLA - set up only with Grade 2/3 Mobs Supine Hooklying MET for Add/Abd x 3 x 5 Therapeutic Exercise (CPT 10601) x 5 Min: Review - no additions: Utilized for the purpose of improving strength, ROM, endurance, and/or flexibility. Time included education re: principles of load and capacity, the role of inflammation in pain/exercise, the role of endogenous chemicals in aerobic exercises along with specifics regarding the how and why to below exercises. Access Code: [email or web address] Open book and all 4 mobility in [...] - 5-10 reps* - Modification to seated Development Analyst version on 03/27 Rocks and Wiggles - 1 x daily - 7 x weekly - 5-10 reps* - Modification to seated kids activities coach with shoulderdips on 03/27 Cat Cow to Child's Pose - 1 x daily - 7 x weekly - 5-10 reps* - Modification to table top version on03/27 HS/Adductor releases in tall sitting one leg extended one on ground - added 03/27 Self Care/Home Management Training (30785) x 10 Min: Training in activities of daily living is medically reasonable and necessary and expected to restore or improve the functioning of the patient. The patient has the capacity to learn from the instructions and the therapist was actively lecturing, demonstrating and providing literature in order to assist with patient appropriately and safely performing task. Addition of thought pivot for unhelpful or untrue thoughts to avoid emotion and physiological body response further driving pain - handout issued Current el strategies provided: SI, Ice, seated isometrics, breath, Avoid SLS and assist as able with home/children's counselor demands - handout issued Review of below: [...] Minutes: 30 Total Treatment Minutes: 30 ASSESSMENT: 31+ weeks gestation with ANDRE on 06/15/22. Strong R SI irritation on this date with + Thigh thrust and poor tolerance to SLS. Mild reduction in s/s following manual care on this date. Encouragement re: el strategy focus, expectations, reassurance/safety and use of thought pivoting to avoidunhelpful thinking. Global stiffness/tightness to T and T/L junction. Improved standing presentationpost manual care on this date. 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 Pain is localized to [...] management tasks with ease in 4 (including children's counselor demands with increase ease) weeks. Ambulation: Ascend/descend stairs independently with reciprocal pattern with minimal to no symptoms and improved lower extremity alignment in 4 weeks. Sports/Leisure: Return to prior level of leisure or recreational activities, including cardio x 30 min and weight training without an increase in symptoms or limitations in 6 weeks. 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
--- OUTSIDE RECORDS SUMMARY | 2022-06-23 17:52 | XMS_ITS | Encounter Summary ---
:1990 Author Organization [facility] Address [address], [place] [address] Care Team Providers Name Role Phone No Primary/Referring, Phy Primary Care Provider Unavailable Reason for Visit Reason Comments Ear Pain Encounter Details Date Type Department Care Team Description 02/28/2022 Office Visit [facility] Ro Orellana MD Right ear pain (Primary Dx); Practice [address] [facility] Decreased ferritin [address] [place] [address] [phone] Social History Tobacco Use Types Packs/Day Years Used Date Smoking Tobacco: Never Smokeless Tobacco: Never Alcohol Use Standard Drinks/Week Comments Not Currently 0 (1 standard drink = 0.6 oz pure alcoho l) Sex Assigned at Date Recorded Not on file documented as of this encounter Last Filed Vital Signs Vital Sign Reading Time Taken Comments Blood Pressure 111/76 02/28/2022 1:41 PM CDT Pulse 92 02/28/2022 1:41 PM CDT Temperature - - Respiratory Rate - - Oxygen Saturation - - Inhaled Oxygen Concentration - - Weight - - Height - - Body Mass Index - - documented in this encounter Patient Instructions Patient InstructionsRo Orellana MD - 02/28/2022 1:30 PM CDT Consider checking CBC, iron profile and ferritin at your OB office at 28 weeks. If not, please schedule a non fasting lab only visit at [facility] on/around 03/21/22. documented in this encounter Progress Notes Ro Orellana MD - 02/28/2022 1:30 PM CDT Historical: Chief Complaint Patient presents with Ear Pain 31 yo F at 25 weeks GA here for some R sided ear pain x 5 days: Ear Pain How long have you had these symptoms? B/l ear pressures x 2 week(s) notice more pain R side in the last few days Which ear(s) do you have symptoms in? right ear What does your pain feel like: dull and pressure and aching How severe is your pain (1-10): 5 Have you had a fever? No Is there any fluid draining from the ear(s)? No Are you experiencing any other symptoms? none Have you had an ear infection in the past? YES Are there any treatments you have tried? No She reports having some trigmenial irritation on R side has been evaluated for this in past, not trigeminal neuralgia per patient. Doesn't think that current sx is similar to this. Feels some sensation of swelling in ear canal x 5 days, R side only. Her looked at her R earand no external irritation he could see. No drainage/discharge/tinnitus/change in hearing. Concern about possible pimple in ear canal. She was seen at for some tongue irritation on 01/21, had iron profile showing elevated TIBC, low ferritin. She started taking iron supplement once daily with vitamin C since this time (about 2 weeks ago). Would like tongue looked at by me today if possible. Denies fevers, chills, tactile fevers, SOB, chest pain/pressure/tightness, sinus pain/pressure, wheezing, nausea, vomiting, abdominal pain, lightheadedness/dizziness/passing out, fatigue, muscle aches,URI sx's, GI sx's allergy symptoms. Some chronic nasal congestion, more noticeable since , hasn't changed. No sick contacts by one year old mena and at home. Mena is watched at home, no daycare. I have personally reviewed the patient's allergies, medications, and past medical history in detail and updated the patient record as necessary. Observed: BP 111/76 (BP Location: Right Arm, BP Cuff Size: Small Adult/Large Pediatrics) Pulse 92 LMP 05/21/2021 (Approximate) General: patient appears well, alert and oriented x 3, pleasant, cooperative. Neck: supple and free of adenopathy, or masses. No thyromegaly. Eyes: PERRL, no conjunctival injection b/l. Mouth:MMM, two small 3 mm mildly erythematous ulcers along lateral aspect L side of tongue. Ears: normal Throat: normal. Chest: clear to IPPA. Heart: heart sounds are normal, no murmurs, clicks, gallops or rubs. Skin: no lesions along face/R ear distribution. Assessment/Plan: 1. Decreased ferritin 2. Right ear pain Advised seeing if OB could draw CBC, iron profile, ferritin at 28 week f/u. If not able to do this schedule CARLOS A to have these checked on/around 03/21 since she recently started supplementing two weeks ago. Reassurance provided. Mouth sores appear non specific-advised should self resolve/listed common dietary/external irritants. RTC PRN sx's worsen/new sx's develop. Please see orders and patient instructions I spent a total of 25 minutes with the patient, 25 minutes spent in Counseling Risks and benefits ofmanagement or follow-up , Importance of compliance with chosen management options , and Instructionsfor management (treatment) and/or follow up. I spent and additional 5 minutes reviewing prior records and with documentation. Ro Orellana MD documented in this encounter Plan of Treatment Upcoming Encounters Date Type Specialty Care Team Description 07/04/2022 Appointment Otolaryngology Opal Richardson MD [address] [facility] N [id number] (Wo rk) 07/22/2022 Appointment Endocrinology Luis Daniel Bradley [facility] [address] [id number] documented as of this encounter Results FERRITIN (05/15/2022 8:11 AM CDT) athologist Signature Ferritin 15 9 - 204 05/15/2022 [facility] ng/mL 12:56 PM CDT LABORATORY Specimen Anatomical Collection Method / Collection Time Recei ching Time (Source) Location / Volume Laterality Blood Venipuncture / 05/15/2022 8:11 05/15/2022 8:11 Unknown AM CDT AM CDT Ro Orellana MD LAB_1 Performing Organization Address City/State/ZIP Code Phon e Number [facility] [address] [place] [address] documented in this encounter Visit Diagnoses Diagnosis Right ear pain - Primary Otalgia, unspecified Decreased ferritin Other nonspecific findings on examinatio n of blood documented in this encounter Care Teams Bonbon Dipper Relationship Specialty Start Date End Date No Primary/Referring, Phy PCP - General 12/13/19 documented as of this encounter
--- OUTSIDE RECORDS SUMMARY | 2022-06-23 17:52 | XMS_ITS | Encounter Summary ---
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); [facility] [address] [facility] 29 weeks gestation of [address] [place] [address] [place], [place] [address] [phone] Social History Tobacco Use Types Packs/Day Years Used Date Smoking Tobacco: Never Smokeless Tobacco: Never Alcohol Use Standard Drinks/Week Comments Not Currently 0 (1 standard drink = 0.6 oz pure alcoho l) Sex Assigned at Date Recorded Not on file documented as of this encounter Progress Notes Katty Arreaga, PT - 03/27/2022 8:30 AM CDT [facility] Orthopaedic [place] [facility] Daily Note Visit Number: 17 BCBS: Other SOC: 08/29/2021 Referring Provider: Justin [...] Pt planning to conceive upcoming prn. 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 SUBJECTIVE: Functional Status/Patient Report: 28+ weeks. Recent US and growth of baby on track. Feeling more Rsided posterior pelvic girdle s/s along with mid back sore and achey. Denies consistent nerve pain in LE. scheduled for 06/10/22 but still considering . OBJECTIVE: Today's Findings: Iliosacral alignment: L Upslip presentation in standing L Mild femoral nerve restriction LFC > femoral > Obturator Mid T restrictions - moderate - improved T/L Strong L Lat and QL restrictions TREATMENT TODAY: Manual Therapy (32597) x 10 min: Utilized for the purpose of improving mobility and blood flow alongwith pain reduction principles. Pre and Post assessment time included along with time for the explanations and role of manual therapy = facilitation to recovery vs fix. L SL for L/P Mobs - Grade 1-3 L SL for R femoral sliders x 5 L SL for T/L glides - Grade 1/2 L SL for Pelvic Rocks and UE reach with manual overpressure for Lat and QL fascial releases and mobility Therapeutic Exercise (CPT 34853) x 10 Min: Utilized for the purpose of improving strength, ROM, endurance, and/or flexibility. Time included education re: principles of load and capacity, the role of inflammation in pain/exercise, the role of endogenous chemicals in aerobic exercises along with specifics regarding the how and why to below exercises. Access Code: [email or web address] Open book and all 4 mobility in [...] - 5-10 reps* - Modification to seated Hospice Clinical Supervisor version on 03/27 Rocks and Wiggles - 1 x daily - 7 x weekly - 5-10 reps* - Modification to seated coach tour driver with shoulderdips on 03/27 Cat Cow to Child's Pose - 1 x daily - 7 x weekly - 5-10 reps* - Modification to table top version on03/27 HS/Adductor releases in tall sitting one leg extended one on ground - added 03/27 Self Care/Home Management Training (68925) x 5 Min: Training in activities of daily living [...] use from previous Timed Code Treatment Minutes: 35 Total Treatment Minutes: 35 ASSESSMENT: 28+ weeks gestation with ANDRE on 06/15/22. Global stiffness/tightness to T/L junction including lats and QL on R remains and likely drive in standing R upslip iliosacral positioning. 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 Pain is localized to [...] management tasks with ease in 4 (including maternal child nurse demands with increase ease) weeks. Ambulation: Ascend/descend stairs independently with reciprocal pattern with minimal to no symptoms and improved lower extremity alignment in 4 weeks. Sports/Leisure: Return to prior level of leisure or recreational activities, including cardio x 30 min and weight training without an increase in symptoms or limitations in 6 weeks. 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
--- OUTSIDE RECORDS SUMMARY | 2022-06-23 17:52 | XMS_ITS | Encounter Summary ---
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 27 weeks gestation of [address] [place] [address] [place], [place] [address] [phone] Social History Tobacco Use Types Packs/Day Years Used Date Smoking Tobacco: Never Smokeless Tobacco: Never Alcohol Use Standard Drinks/Week Comments Not Currently 0 (1 standard drink = 0.6 oz pure alcoho l) Sex Assigned at Date Recorded Not on file documented as of this encounter Progress Notes Katty Arreaga, PT - 03/19/2022 9:00 AM CDT [facility] Orthopaedic [place] [facility] Daily Note Visit Number: 16 BCBS: Other SOC: 08/29/2021 Referring Provider: Justin [...] Pt planning to conceive upcoming prn. 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 SUBJECTIVE: Functional Status/Patient Report: 27 weeks. Continue with irritable uterus and ER visit again since last visit. OB visit yesterday and no restrictions applied. R SI stiff feeling but absent of sharp pains. Denies consistent nerve pain in LE. OBJECTIVE: Today's Findings: Iliosacral alignment: L Upslip presentation in standing - absent in supine L Mild femoral nerve restriction LFC > femoral > Obturator T/L junction restrictions - moderate TREATMENT TODAY: Manual Therapy (01946) x 15 min: Utilized for the purpose [...] Grade 1/2 L SL for R MET - C/R along with C/R to adductors post for neuro input surrounding pelvis Therapeutic Exercise (CPT 86401) x 5 Min: Utilized for the purpose of improving strength, ROM, endurance, and/or flexibility. Time included education re: principles of load and capacity, the role of inflammation in pain/exercise, the role of endogenous chemicals in aerobic exercises along with specifics regarding the how and why to below exercises. Access Code: [email or web address] Open book and all 4 mobility in [...] - 5-10 reps* Self Care/Home Management Training (74772) x 10 Min: Training in activities of [...] Minutes: 35 Total Treatment Minutes: 35 ASSESSMENT: 27 weeks gestation with ANDRE on 06/15/22. Pt in ER now x 2 with irritable uterus - no restrictions given. Global stiffness/tightness to T/L junction remains and likely drive in standing iliosacral alignment as alignment WNL's in supine on this date. 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 Pain is localized to area [...] tasks with ease in 4 (including child welfare social worker demands with increase ease) weeks. Ambulation: Ascend/descend stairs independently with reciprocal pattern with minimal to no symptoms and improved lower extremity alignment in 4 weeks. Sports/Leisure: Return to prior level of leisure or recreational activities, including cardio x 30 min and weight training without an increase in symptoms or limitations in 6 weeks. 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
--- OUTSIDE RECORDS SUMMARY | 2022-06-23 17:52 | XMS_ITS | Encounter Summary ---
:1990 Author Organization [facility] Address [address] [place] [address] Care Team Providers Name Role Phone No Primary/Referring, Phy Primary Care Provider Unavailable Encounter Details Date Type Department Care Team Description 05/30/2022 Lab Visit [facility] Hypocalcemia [address] [place] [address] Social History Tobacco Use [...] Description 07/04/2022 Appointment Otolaryngology Oapl Richardson MD [address] [facility] N [id number] (Wo rk) 07/22/2022 Appointment Endocrinology Luis Daniel Bradley [facility] [address] [facility] N [id number] documented as of this encounter Procedures Procedure Name Priority Date/Time Associated Diagnosis Comme nts BASIC METABOLIC Routine 05/30/2022 9:24 AM Hypocalcemia Result s for this PANEL HOPS FARMWORKER procedure are i n the results section. documented in this encounter Results (ABNORMAL) BMP (05/30/2022 9:24 AM HOPS FARMWORKER) P athologist Signature Sodium 134 (L) 136 - 145 05/30/2022 [place] mmol/L 3:36 PM [facility] LABORATORY Potassium 4.0 3.5 - 5.1 05/30/2022 [place] mmol/L 3:36 PM [facility] Chloride 104 98 - 109 05/30/2022 [place] mmol/L 3:36 PM [facility] CO2 23 20 - 29 05/30/2022 [place] mmol/L 3:36 PM [facility] Anion Gap 7 7 - 16 05/30/2022 [place] mmol/L 3:36 PM [facility] Calcium 8.2 (L) 8.4 - 10.4 05/30/2022 [place] mg/dL 3:36 PM [facility] BUN 7 7 - 26 05/30/2022 [place] mg/dL 3:36 PM [facility] Creatinine 0.60 0.55 - 1.02 05/30/2022 [place] mg/dL 3:36 PM [facility] Glucose 130 (H) 70 - 100 05/30/2022 [place] mg/dL 3:36 PM [facility] Comment: The given reference range is fo r the fasting state. Non-fasting reference range for glucose is 70 - 180 mg/dL. Hours Fasting 12 05/30/2022 3:36 PM HOPS FARMWORKER [facility] GFR, Estimated >60 >60 mL/min/1.73m2 05/30/2022 3:3 6 PM HOPS FARM[employer]ER [place] [facility] Specimen Anatomical Collection Method / Collection Time Recei ching Time (Source) Location / Volume Laterality Blood Venipuncture / 05/30/2022 9:24 05/30/2022 9:24 Unknown AM HOPS FARMWORKER AM [facility]ER Lois Carr MD LAB_1 Performing Organization Address City/State/ZIP Code Phon e Number [facility] [address] [place] [address] [facility] [address] [place] [address], [phone] [facility] documented in this encounter Visit Diagnoses Diagnosis Hypocalcemia documented in this encounter Care Teams Photogeologist Relationship Specialty Start Date End Date No Primary/Referring, Phy PCP - General 12/13/19 documented as of this encounter
--- OUTSIDE RECORDS SUMMARY | 2022-06-23 17:52 | XMS_ITS | Encounter Summary ---
:1990 [facility] Address [address], [place] [address] Care Team Providers Name Role Phone No Primary/Referring, Phy Primary Care Provider Unavailable Encounter Details Date Type Department Care Team Description 05/20/2022 Notes/Orders [facility] [address] [place] Hypoc alcemia (Primary Endocrinology Eduardo Garcia MD Dx) [address] [place] [address] [place] [phone] Social History Tobacco Use Types Packs/Day Years Used Date Smoking Tobacco: Never Smokeless Tobacco: Never Alcohol Use Standard Drinks/Week Comments Not Currently 0 (1 standard drink = 0.6 oz pure alcoho l) Sex Assigned at Date Recorded Not on file documented as of this encounter Plan of Treatment Upcoming Encounters Date Type Specialty Care Team Description 07/04/2022 Appointment Otolaryngology Opal Richardson MD [address] [facility] N [id number] (Wo rk) 07/22/2022 Appointment Endocrinology Luis Daniel Bradley [facility] [address] [facility] N [id number] documented as of this encounter Results (ABNORMAL) BMP (05/30/2022 9:24 AM [employer] MEMBER) athologist Signature Sodium 134 (L) 136 - 145 05/30/2022 [place] mmol/L 3:36 PM [facility] Potassium 4.0 3.5 - 5.1 05/30/2022 [place] mmol/L 3:36 PM [facility] Chloride 104 98 - 109 05/30/2022 [place] mmol/L 3:36 PM [facility] CO2 23 20 - 29 05/30/2022 [place] mmol/L 3:36 PM [facility] Anion Gap 7 7 - 16 05/30/2022 [place] mmol/L 3:36 PM [facility] Calcium 8.2 (L) 8.4 - 10.4 05/30/2022 [place] mg/dL 3:36 PM [facility] BUN 7 7 - 26 05/30/2022 [place] mg/dL 3:36 PM [facility] Creatinine 0.60 0.55 - 1.02 05/30/2022 [place] mg/dL 3:36 PM [facility] Glucose 130 (H) 70 - 100 05/30/2022 [place] mg/dL 3:36 PM [facility] Comment: The given reference range is fo r the fasting state. Non-fasting reference range for glucose is 70 - 180 mg/dL. Hours Fasting 12 05/30/2022 3:36 PM [employer]NCIL MEMBER [facility] GFR, Estimated >60 >60 mL/min/1.73m2 05/30/2022 3:3 6 PM [employer] MEMBER [place] [facility] Specimen Anatomical Collection Method / Collection Time Recei ching Time (Source) Location / Volume Laterality Blood Venipuncture / 05/30/2022 9:24 05/30/2022 9:24 Unknown AM [employer]IL MEMBER AM [employer]BER Lois Carr MD LAB_1 Performing Organization Address City/State/ZIP Code Phon e Number [facility] [address] [place] [address] [facility] [address] [place] [address], [phone] [facility] documented in this encounter Visit Diagnoses Diagnosis Hypocalcemia - Primary documented in this encounter Care Teams Pigment Mixer Relationship Specialty Start Date End Date No Primary/Referring, Phy PCP - General 12/13/19 documented as of this encounter
--- OUTSIDE RECORDS SUMMARY | 2022-06-23 17:52 | XMS_ITS | Encounter Summary ---
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); Physical Therapy [address] 36 weeks gestation of [address] [place] [address] [place], [place] [address] [phone] Social History Tobacco Use Types Packs/Day Years Used Date Smoking Tobacco: Never Smokeless Tobacco: Never Alcohol Use Standard Drinks/Week Comments Not Currently 0 (1 standard drink = 0.6 oz pure alcoho l) Sex Assigned at Date Recorded Not on file documented as of this encounter Progress Notes Katty Arreaga, PT - 05/22/2022 9:30 AM CDT [facility] Discharge Summary Attainment of goals: during episode of care altered goals Patient Compliance with Physical Therapy: Patient was compliant with attendance and therapy recommendations. Discharge recommendations: D/C to delivery Visit Number: 23 BCBS: Other SOC: 08/29/2021 Referring Provider: Justin [...] Pt planning to conceive upcoming prn. 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 SUBJECTIVE Functional Status/Patient Report: 36+ weeks. scheduled for 06/10/22. Having higher level monitoring as low fluid at last US and concerned over placenta placement - pt feeling concerned. L sided posterior pelvis s/s remain making child caregiver and daily demands challenging. Having mouth sores, constipation and continuation weekly provider appts for monitoring. OBJECTIVE: Today's Findings: Iliosacral alignment: L Upslip + Thigh Thrust B - L > R on this date + Pain with any SLS time and or hip flexion attempt in standing B T/L restriction and QL L > R TREATMENT TODAY: Manual Therapy (14160) x 15 min: Utilized for the purpose of improving mobility and blood flow alongwith pain reduction principles. Pre and Post assessment time included along with time for the explanations and role of manual therapy = facilitation to recovery vs fix. R SL for L/P Mobs - Grade 1-3 R SL for T/L glides - Grade 1/2 R SL for L Upslip MET and L Anterior Innominate Rotation Seated Hooklying MET for Add/Abd x 3 x 5 Therapeutic Exercise (CPT 52723) x <5 Min: Review - no additions: Utilized for the purpose of improving strength, ROM, endurance, and/or flexibility. Time included education re: principles of load and capacity, the role of inflammation in pain/exercise, the role of endogenous chemicals in aerobic exercises along with specifics regarding the how and why to below exercises. Access Code: [email or web address] Open book and all 4 mobility in clinic on this date and review of remaining home strategies and how to best incorporate based on s/s - modification to table top vs All 4's for T spine and hip opening RED DOT * exercises for current stage [...] - 5-10 reps* - Modification to seated Recreational Sports Director version on 03/27 Rocks and Wiggles - 1 x daily - 7 x weekly - 5-10 reps* - Modification to seated assistant coach with shoulderdips on 03/27 Cat Cow to Child's Pose - 1 x daily - 7 x weekly - 5-10 reps* - Modification to table top version on03/27 HS/Adductor releases in tall sitting one leg extended one on ground - added 03/27 Self Care/Home Management Training (28269) x 10 Min: Training in activities of daily living is medically reasonable and necessary and expected to restore or improve the functioning of the patient. The patient has the capacity to learn from the instructions and the therapist was actively lecturing, demonstrating and providing literature in order to assist with patient appropriately and safely performing task. Reassurance and validation provided - update of all current strategies Post care strategies discussed - abdominal binder, breathing, pelvic tilts and reassurance ofpost PT support PRN. Addition of thought pivot for unhelpful or untrue thoughts to avoid emotion and physiological body response further driving pain - handout issued Current el strategies provided: SI, Ice, seated isometrics, breath, Avoid SLS and assist as able with home/child caregiver demands - handout issued Review of below: [...] use from previous Timed Code Treatment Minutes: 25 Total Treatment Minutes: 25 ASSESSMENT: 36+ weeks gestation with ANDRE on 06/15/22. Strong L sided posterior pelvic pain remains and increases during stance phase L. Scheduled for advanced US monitoring as potential concerns re: placenta placement. Encouragement re: el strategy focus, expectations, reassurance/safety and use of thought pivoting to avoid unhelpful thinking. Global stiffness/tightness to T and T/L junction. Improved standing presentation post manual care on this date. Time spent on facilitation of mobility with manual care and HEP to support focused on. 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 Pain is localized [...] avoidance behavior and history of anxiety. PLAN: Likely last PT appt prior to delivery. F/u post prn - new episode at that time suggested EXPECTED FUNCTIONAL OUTCOMES/GOALS: HEP/Independent Management: Demonstrate independence with HEP and self- management following each treatment session ADL's: Perform home management tasks with ease in 4 (including child caregiver demands with increase ease) weeks. Ambulation: Ascend/descend stairs independently with reciprocal pattern with minimal to no symptoms and improved lower extremity alignment in 4 weeks. Sports/Leisure: Return to prior level of leisure or recreational activities, including cardio x 30 min and weight training without an increase in symptoms or limitations in 6 weeks. 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
--- OUTSIDE RECORDS SUMMARY | 2022-06-23 17:52 | XMS_ITS | Encounter Summary ---
:1990 Author Organization [facility] Address [address] [place] [address] Care Team Providers Name Role Phone No Primary/Referring, Phy Primary Care Provider Unavailable Reason for Referral Consult/Transfer Care (Routine) - New Request Specialty Diagnoses / Procedures Referred By Contact Refer red To Contact Diagnoses [place] [address] [place] [address] Referral ID Status Reason Start Date Expiration Date Visits V isits Requested Authorized [id number] New Request 03/12/2022 06/11/2023 1 1 Scheduling Instructions Your provider has recommended an appoint ment with [facility]. You can quickly make your appointment online at [facility]/schedule. You can also call [phone] for help scheduling yo ur appointment. We suggest you call your health insurance company about your cove rage and benefits for this appointment. Reason for Visit Reason Comments Follow-up Sores on tongue Encounter Details Date Type Department Care Team Description 03/12/2022 Office Visit [place] [address] Mir[address] Sellers Sorenes s of tongue (Primary Dx); Family Medicine DO Geographic tongue [address] [facility] [address] [place] [address] [phone] Social History Tobacco Use Types Packs/Day Years [...] Pulse 103 03/12/2022 1:03 PM CDT Temperature - - Respiratory Rate - - Oxygen Saturation - - Inhaled Oxygen Concentration - - Weight 69.4 kg (153 lb) 03/12/2022 1:03 PM CDT Height - - Body Mass Index 23.96 02/21/2022 1:33 PM CDT documented in this encounter Progress Notes Miracle Sellers, DO - 03/12/2022 1:00 PM CDT SUBJECTIVE: Chief Complaint Patient presents with Follow-up Sores on tongue History of present illness: 31 y.o. female presents for follow-up tongue sores and painful tongue. Onset early December 2021. Patient is currently 26 weeks , due 06/15/22. Patient developed a few scattered sores on the side of her tongue and extreme sensitivity of her tongue. She was given a few treatments, which she did not want to do while she was . Doesn't like to take meds, so didn't take steroid PO treatment. ENT 2-3 weeks ago. Uncertain diagnosis, they speculated possible autoimmune disease. Patient denies dry eyes or dry mouth. Other than fatigue, she feels fine otherwise. She has a dry cracked spot on her left heel but no other dry areas on her body. Denies dry eyes or dry mouth. Pt eating shakes, spicy foods and then mouth sores became more painful the past 2 days. Same number of sores, tongue. She thinks there may be a trigger in the shakes or with spicy food that brings on her symptoms. She has not done an elimination diet. She did see an real estate manager 3 years ago who did testing for environmental allergies. Taking iron supplement with vitamin. History of low ferritin and TIBC. Patient forgets to take her iron supplement some days. Patient's medications, allergies, past medical, surgical, social and family histories were reviewed and updated as appropriate. ROS: otherwise negative with the exception of positives in HPI. OBJECTIVE: Filed Vitals: 03/12/22 1303 BP: 115/87 Pulse: (!) 103 Weight: 153 lb (69.4 kg) General: Patient alert, in NAD. Head: Normocephalic. Eyes: PERRLA, full EOM. External exams normal. Nose: Patent, without deformity.Throat: Moist mucous membranes without lesions, erythema, or exudate. Geographic tongue. 1-2 papularareas along the posterior aspect of her tongue on each side, no ulcers or vesicles. Neck: Supple, without thyromegaly or mass. Extremities: FROM with good strength, no lesions or deformities. CV: Regular rate without murmurs, rubs or gallops. Resp: Clear to auscultation without crackles, wheezes or distress. Abdomen: bowel sounds present, soft, non-tender, without hepatosplenomegaly, masses, or hernias. Skin: No lesions. Psychiatric: Alert & oriented with normal affect and insight, does not appear depressed or anxious. ICD-10-CM 1. Soreness of tongue K14.6 Allergy And Immunology Consult Adult/Peds 2. 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 Strawberries especially. Peanuts may also be a trigger. Advised to try to narrow down foods that may trigger her tongue to feel this way. She does use Biotene toothpaste. Referral to real estate manager, consider food testing. Follow-up as needed, especially if she has any worsening or new symptoms. Stress reduction and meditation recommended, might be stress induced reaction. 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
--- OUTSIDE RECORDS SUMMARY | 2022-06-23 17:52 | XMS_ITS | Encounter Summary ---
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); Physical Therapy [address] [facility] 34 weeks gestation of [address] [place] [address] [place], [place] [address] [phone] Social History Tobacco Use Types Packs/Day Years Used Date Smoking Tobacco: Never Smokeless Tobacco: Never Alcohol Use Standard Drinks/Week Comments Not Currently 0 (1 standard drink = 0.6 oz pure alcoho l) Sex Assigned at Date Recorded Not on file documented as of this encounter Progress Notes Katty Arreaga, PT - 05/08/2022 8:00 AM CDT [facility] Orthopaedic Cammal Physical Therapy Daily Note Visit Number: 22 BCBS: Other SOC: 08/29/2021 Referring Provider: Justin [...] Pt planning to conceive upcoming prn. 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 SUBJECTIVE Functional Status/Patient Report: 34+ weeks. scheduled for 06/10/22 but still considering . 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 Having mouth sores, constipation and continuation of contractions leading to weekly provider appts. 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 Time included education re: principles of load and capacity, the role of inflammation in pain/exercise, the role of endogenous chemicals in aerobic exercises along with specifics regarding the how and why to below exercises. Access Code: [email or web address] Open book and all 4 mobility in [...] - 5-10 reps* - Modification to seated Director Of Music Therapy version on 03/27 Rocks and Wiggles - 1 x daily - 7 x weekly - 5-10 reps* - Modification to seated defensive secondary coach with shoulderdips on 03/27 Cat Cow to Child's Pose - 1 x daily - 7 x weekly - 5-10 reps* - Modification to table top version on03/27 HS/Adductor releases in tall sitting one leg extended one on ground - added 03/27 Self Care/Home Management Training (06041) x 8 Min: Training in activities of daily living [...] SLS and assist as able with home/children's ministry director demands - handout issued Review of below: [...] use from previous Timed Code Treatment Minutes: 28 Total Treatment Minutes: 28 ASSESSMENT: 34+ weeks gestation with ANDRE on 06/15/22. Strong L sided posterior pelvic pain remains and increases during stance phase L. 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 Pain is localized to area [...] tasks with ease in 4 (including children's ministry director demands with increase ease) weeks. Ambulation: Ascend/descend stairs independently with reciprocal pattern with minimal to no symptoms and improved lower extremity alignment in 4 weeks. Sports/Leisure: Return to prior level of leisure or recreational activities, including cardio x 30 min and weight training without an increase in symptoms or limitations in 6 weeks. 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
--- OUTSIDE RECORDS SUMMARY | 2022-06-23 17:52 | XMS_ITS | Encounter Summary ---
:1990 Author Organization [facility] Address [address] [place] [address] Care Team Providers Name Role Phone No Primary/Referring, Phy Primary Care Provider Unavailable Encounter Details Date Type Department Care Team Description 04/07/2022 Telephone [facility] [address] , Endocrinology [address] [place] [address] [place], [place] [phone] (Wo rk) Social History Tobacco Use Types Packs/Day Years Used Date Smoking Tobacco: Never Smokeless Tobacco: Never Alcohol Use Standard Drinks/Week Comments Not Currently 0 (1 standard drink = 0.6 oz pure alcoho l) Sex Assigned at Date Recorded Not on file documented as of this encounter Nursing Notes Julieta Diaz RN - 04/07/2022 2:00 PM CDT Patient reached, notified of lab orders and pt verbalized understanding. Pt is ok with doing a VV, but prefers to be seen in [place] if possible. Transferred to scheduling. Lois Carr MD - 04/07/2022 1:00 PM CDT We usually do monthly tests until 16 weeks and then each trimester after depending on results. Ok todo labs now and 1 month. She should have a visit with me in 1 month and have OB records faxed to office. Ok to do VV. Julieta Diaz, RN - 04/07/2022 10:01 AM CDT Pt calls for thyroid labs (TSH, T4 and T3) to be placed, she states she was advised she should be getting them monthly as she is . She would like future labs to be placed as well, so she does not have to continuously call. documented in this encounter Plan of Treatment Upcoming Encounters Date Type Specialty Care Team Description 07/04/2022 Appointment Otolaryngology Opal Richardson MD [address] [facility] [address] [id number] (Wo rk) 07/22/2022 Appointment Endocrinology Luis Daniel Bradley [facility] [address] [facility] [id number] documented as of this encounter Results Free T3 (Expected: 28 days) (05/15/2022 8:11 AM CDT) athologist Signature T3, Free 2.60 1.70 - 3.70 05/15/2022 [facility] pg/mL 12:56 PM CDT LABORATORY Specimen Anatomical Collection Method / Collection Time Recei ching Time (Source) Location / Volume Laterality Blood Venipuncture / 05/15/2022 8:11 05/15/2022 8:11 Unknown AM CDT AM CDT Lois Carr MD LAB_1 Performing Organization Address City/State/ZIP Code Phon e Number [facility] [address] [place] [address] Free T4 (Expected: 28 days) (05/15/2022 8:11 AM CDT) athologist Signature T4, Free 0.80 0.70 - 1.50 05/15/2022 [facility] ng/dL 12:56 PM CDT LABORATORY Specimen Anatomical Collection Method / Collection Time Recei ching Time (Source) Location / Volume Laterality Blood Venipuncture / 05/15/2022 8:11 05/15/2022 8:11 Unknown AM CDT AM CDT Lois Carr MD LAB_1 Performing Organization Address City/[facility] Phon e Number [facility] [address] [place] [address] TSH (Expected: 28 days) (05/15/2022 8:11 AM CDT) athologist Signature TSH, Sensitive 2.26 0.30 - 05/15/2022 [facility] 4.50 12:56 PM CDT LABORATORY uIU/mL Specimen Anatomical Collection Method / Collection Time Recei ching Time (Source) Location / Volume Laterality Blood Venipuncture / 05/15/2022 8:11 05/15/2022 8:11 Unknown AM CDT AM CDT Lois Carr MD LAB_1 Performing Organization Address [facility] Phon e Number [facility] [address] [place] [address] TSH (04/10/2022 9:17 AM CDT) athologist Signature TSH, Sensitive 1.76 0.30 - 04/10/2022 [facility] 4.50 3:52 PM CDT LABORATORY uIU/mL Specimen Anatomical Collection Method / Collection Time Recei ching Time (Source) Location / Volume Laterality Blood Venipuncture / 04/10/2022 9:17 04/10/2022 9:17 Unknown AM CDT AM CDT Lois Carr MD LAB_1 Performing Organization Address City/[facility] Phon e Number [facility] [address] [place] [address] Free T4 (04/10/2022 9:17 AM CDT) athologist Signature T4, Free 0.80 0.70 - 1.50 04/10/2022 [facility] ng/dL 3:52 PM CDT LABORATORY Specimen Anatomical Collection Method / Collection Time Recei ching Time (Source) Location / Volume Laterality Blood Venipuncture / 04/10/2022 9:17 04/10/2022 9:17 Unknown AM CDT AM CDT Lois Carr MD LAB_1 Performing Organization Address City/[facility] Phon e Number [facility] [address] [place] [address] Free T3, Serum (04/10/2022 9:17 AM CDT) P athologist Signature T3, Free 2.40 1.70 - 3.70 04/10/2022 [facility] pg/mL 6:04 PM CDT LABORATORY Specimen Anatomical Collection Method / Collection Time Recei ching Time (Source) Location / Volume Laterality Blood Venipuncture / 04/10/2022 9:17 04/10/2022 9:17 Unknown AM CDT AM CDT Lois Carr MD LAB_1 Performing Organization Address City/[facility] Phon e Number [facility] [address] [place] [address] documented in this encounter Visit Diagnoses Diagnosis Acquired hypothyroidism (HRC) - Primary Unspecified hypothyroidism documented in this encounter Care Teams Insulation Cutter And Former Relationship Specialty Start Date End Date No Primary/Referring, Phy PCP - General 12/13/19 documented as of this encounter
--- OUTSIDE RECORDS SUMMARY | 2022-06-23 17:53 | XMS_ITS | Encounter Summary ---
:1990 [facility] Address [address] [place] [address] Care Team Providers Name Role Phone No Primary/Referring, Phy Primary Care Provider Unavailable Reason for Visit Reason Comments HIP PAIN Encounter Details Date Type Department Care Team Description 09/26/2021 Therapy [facility], Katty Arreaga, PT Iliopsoas bursitis of left hip (Primary Dx); Physical Therapy [address] Right knee pain, unspecified chronicity [address] [place] [address] [place], [place] [address] [phone] Social History Tobacco Use Types Packs/Day Years Used Date Smoking Tobacco: Never Smokeless Tobacco: Never Alcohol Use Standard Drinks/Week Comments Not Currently 0 (1 standard drink = 0.6 oz pure alcoho l) Sex Assigned at Date Recorded Not on file documented as of this encounter Progress Notes Katty Arreaga, PT - 09/26/2021 1:15 PM CST [facility] [place] [facility] Daily Note Visit Number: 4 BCBS: Other Initial Certification Period: 08/29/2021 to 10/28/21 Referring Provider: Justin Ramírez MD Diagnosis: Iliopsoas L hip bursitis Orders: Evaluate [...] Pt planning to conceive upcoming prn. 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 Ache in general and unable to do quick movements w/o being reminded about it. Back at gym with walking x 20 and elipitcal x 10. B lateral hips sensitive with walking and noting more with fitness routine but overall L hip pain much reduced. OBJECTIVE: Today's Findings: Iliosacral alignment WNL's R moderate Patellar Lateral tracking with + Q angle R knee Quad inhibition -absent swelling B Hip Strength reduction in all planes 4-/5 Globally SLR R x 60- + adduction structural diff bias for neurotension B SLR L x 55 TREATMENT TODAY: Therapeutic Exercise (CPT 90299) x 30 Min: Utilized for the purpose of improving strength, ROM, endurance, and/or flexibility. Time included education re: principles of load and capacity, the role of inflammation in pain/exercise, the role of endogenous chemicals in aerobic exercises along with specifics regarding the how and why to below exercises. Updated recommendations of current gym program: ALE TM x 15 min - 4% incline x speed intervals Ellipitical x 10-15 Walked through in clinic N[employer] equipment for adjustments to Lat pull down and rows Addition of Leg Press x 40# X 15 Reformer: White x 10 B SLS - Hip Extension with UE on foot bar HEP review: B SLR x 10 B SLR with ER or SL hip adduction for VMO activation x 10 Clam shell B x 10 x 10 holds Glut/HS bridges with feet on 6 step - attempted single - pt unable to perform Self Care/Home Management Training (42007) x 5 Min: Training in activities of daily living is medically reasonable and necessary and expected to restore or improve the functioning of the patient. The patient has the capacity to learn from the instructions and the therapist was actively lecturing, demonstrating and providing literature in order to assist with patient appropriately and safely performing task. Brace adjustments - trial with strap and placement and review of use Reassurance re: diagnosis and recovery Timed Code Treatment Minutes: 35 Total Treatment Minutes: 35 ASSESSMENT: Decrease Patellar brace use at both fitness club and home demands. R knee sensitivity and decrease confidence remains.Hip and core weakness contributing factor in knee pain and pt would benefit from further skilled care to address. 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 Pain is localized to area [...] avoidance behavior and history of anxiety. PLAN: Continue Reformer. Progress patient as tolerated in strength, flexibility, aerobic capacity while monitoring pain levels and adjusting accordingly. EXPECTED FUNCTIONAL OUTCOMES/GOALS: HEP/Independent Management: Demonstrate independence with HEP and self- management following each treatment session ADL's: Perform home management tasks with ease in 4 (including [address] magistrate demands with increase ease) weeks. Ambulation: Ascend/descend stairs independently with reciprocal pattern with minimal to no symptoms and improved lower extremity alignment in 4 weeks. Sports/Leisure: Return to prior level of leisure or recreational activities, including cardio x 30 min and weight training without an increase in symptoms or limitations in 6 weeks. Therapist: Katty Arreaga, PT 1:13 PM 09/26/2021 T FINISHER documented in this encounter Plan of Treatment Upcoming Encounters Date Type Specialty Care Team Description 07/04/2022 Appointment Otolaryngology Opal Richardson MD [address] FERNANDEZ Juliano N [id number] (Wo rk) 07/22/2022 Appointment Endocrinology Luis Daniel Bradley MBBS [address] S[place] FERNANDEZ [place] N [phone] documented as of this encounter Visit Diagnoses Diagnosis Iliopsoas bursitis of left hip - Primary Right knee pain, unspecified chronicity documented in this encounter Care Teams Splitter Operator Relationship Specialty Start Date End Date No Primary/Referring, Phy PCP - General 12/13/19 documented as of this encounter
--- OUTSIDE RECORDS SUMMARY | 2022-06-23 17:53 | XMS_ITS | Encounter Summary ---
:1990 [facility] Address [address] [place] [address] Care Team Providers Name Role Phone No Primary/Referring, Phy Primary Care Provider Unavailable Reason for Visit Reason Comments HIP PAIN Encounter Details Date Type Department Care Team Description 10/09/2021 Therapy [facility], Katty Arreaga, PT Iliopsoas bursitis of left hip (Primary Dx); Physical Therapy [address] [facility] Right knee pain, unspecified chronicity [address] [place] [address] [place], [place] [address] [phone] Social History Tobacco Use Types Packs/Day Years Used Date Smoking Tobacco: Never Smokeless Tobacco: Never Alcohol Use Standard Drinks/Week Comments Not Currently 0 (1 standard drink = 0.6 oz pure alcoho l) Sex Assigned at Date Recorded Not on file documented as of this encounter Progress Notes Katty Arreaga, PT - 10/09/2021 1:15 PM CDT [facility] Daily Note Visit Number: 5 BCBS: Other Initial Certification Period: 08/29/2021 to [...] Pt planning to conceive upcoming prn. 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 Feelingbetter now but unable to pursue HEP/gym progressions as hoped. R knee 90+ % improved. Wanting to still return to squat position w/o pain for child development teacher demands and pt reports continuing to avoid. OBJECTIVE: Today's Findings: Iliosacral alignment WNL's R moderate Patellar Lateral tracking with + Q angle R knee Quad inhibition -absent swelling B Hip Strength reduction in all planes 4-/5 Globally SLR R x 55- + adduction structural diff bias for neurotension B SLR L x 55 TREATMENT TODAY: Therapeutic Exercise (CPT 26849) x 20 Min: Utilized for the purpose of improving [...] Hip Extension with UE on foot bar - DIRECTOR OF HEAD START HEP review: B SLR x 10 B SLR with ER or SL hip adduction for VMO activation x 10 Clam shell B x 10 x 10 holds Glut/HS bridges with feet on 6 step - attempted single - pt unable to perform Self Care/Home Management Training (11648) x 10 Min: Training in activities of daily living is medically reasonable and necessary and expected to restore or improve the functioning of the patient. The patient has the capacity to learn from the instructions and the therapist was actively lecturing, demonstrating and providing literature in order to assist with patient appropriately and safely performing task. Recommendation for Super Feet secondary to use in past and return of R foot pain over past 2 weeks -pt belief that maybe helpful thus recommendations made Brace adjustments - trial with strap and placement and review of use - no longer using Reassurance re: diagnosis and recovery Timed Code Treatment Minutes: 35 Total Treatment Minutes: 35 ASSESSMENT: Sick over past week + and now just returning to care program. R knee 90+% improved and absent report of L anterior hip or LQ pain on this date. Pt preparing for possible and wanting validation and assurance with current [facility]. 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 Pain is localized [...] and history of anxiety. PLAN: F/u on R foot pain. Continue Reformer. Progress patient as tolerated in strength, flexibility, aerobic capacity while monitoring pain levels and adjusting accordingly. EXPECTED FUNCTIONAL OUTCOMES/GOALS: HEP/Independent Management: Demonstrate independence with HEP and self- management following each treatment session ADL's: Perform home management tasks with ease in 4 (including child development teacher demands with increase ease) weeks. Ambulation: Ascend/descend stairs independently with reciprocal pattern with minimal to no symptoms and improved lower extremity alignment in 4 weeks. Sports/Leisure: Return to prior level of leisure or recreational activities, including cardio x 30 min and weight training without an increase in symptoms or limitations in 6 weeks. Therapist: Katty Arreaga, PT 9:49 PM 10/09/2021 documented in this encounter Plan of Treatment Upcoming Encounters Date Type Specialty Care Team Description 07/04/2022 Appointment Otolaryngology Opla Richardson MD [address] N [id number] (Wo rk) 07/22/2022 Appointment Endocrinology Luis Daniel Bradley MBBS [address] [place] [address] N [id number] documented as of this encounter Visit Diagnoses Diagnosis Iliopsoas bursitis of left hip - Primary Right knee pain, unspecified chronicity documented in this encounter Care Teams Linoleum Layer Relationship Specialty Start Date End Date No Primary/Referring, Phy PCP - General 12/13/19 documented as of this encounter
--- OUTSIDE RECORDS SUMMARY | 2022-06-23 17:53 | XMS_ITS | Encounter Summary ---
:1990 Author Organization [facility] Address [address] [place] [address] Care Team Providers Name Role Phone No Primary/Referring, Phy Primary Care Provider Unavailable Encounter Details Date Type Department Care Team Description 11/12/2021 Lab Visit [facility] H/O Graves' disease [address] [place] [address] Social History Tobacco Use [...] Description 07/04/2022 Appointment Otolaryngology Opal Richardson MD [address] [facility] N [id number] (Wo rk) 07/22/2022 Appointment Endocrinology Luis Daniel Bradley MBBS [address] [facility] N [id number] documented as of this encounter Procedures Procedure Name Priority Date/Time Associated Diagnosis Comme nts T3, FREE Routine 11/12/2021 1:00 PM H/O Graves' disease Re sults for this CDT procedure are i n the results section . TSH, SENSITIVE Routine 11/12/2021 1:00 PM H/O Graves' disease Results for this CDT procedure are i n the results section . FREE T4 Routine 11/12/2021 1:00 PM H/O Graves' disease Re sults for this CDT procedure are i n the results section . documented in this encounter Results Free T3 (Expected: 60 days) (11/12/2021 1:00 PM CDT) athologist Signature T3, Free 2.60 1.70 - 3.70 11/12/2021 [facility] pg/mL 6:28 PM CDT LABORATORY Specimen Anatomical Collection Method / Collection Time Recei ching Time (Source) Location / Volume Laterality Blood Venipuncture / 11/12/2021 1:00 11/12/2021 1:00 Unknown PM CDT PM CDT Lois Carr MD LAB_1 Performing Organization Address City/[facility] Phon e Number [facility] [address] [place] [address] Free T4 (Expected: 60 days) (11/12/2021 1:00 PM CDT) athologist Signature T4, Free 0.90 0.70 - 1.50 11/12/2021 [facility] ng/dL 6:28 PM CDT LABORATORY Specimen Anatomical Collection Method / Collection Time Recei ching Time (Source) Location / Volume Laterality Blood Venipuncture / 11/12/2021 1:00 11/12/2021 1:00 Unknown PM CDT PM CDT Lois Carr MD LAB_1 Performing Organization Address [facility] Phon e Number [facility] [address] [place] [address] TSH (Expected: 60 days) (11/12/2021 1:00 PM CDT) athologist Signature TSH, Sensitive 1.58 0.30 - 11/12/2021 [facility] 4.50 6:28 PM CDT LABORATORY uIU/mL Specimen Anatomical Collection Method / Collection Time Recei ching Time (Source) Location / Volume Laterality Blood Venipuncture / 11/12/2021 1:00 11/12/2021 1:00 Unknown PM CDT PM CDT Lois Carr MD LAB_1 Performing Organization Address City/[facility] Phon e Number [facility] [address] [place] [address] documented in this encounter Visit Diagnoses Diagnosis H/O Graves' disease Personal history of other endocrine, met abolic, and immunity disorders documented in this encounter Care Teams Veterinary Medical Officer Relationship Specialty Start Date End Date No Primary/Referring, Phy PCP - General 12/13/19 documented as of this encounter
--- OUTSIDE RECORDS SUMMARY | 2022-06-23 17:53 | XMS_ITS | Encounter Summary ---
:1990 Author Organization [facility] Address [address] [place] [address] Care Team Providers Name Role Phone No Primary/Referring, Phy Primary Care Provider Unavailable Encounter Details Date Type Department Care Team Description 09/26/2021 Lab Visit [facility] Subacute thyroiditis [address] [place] [address] Social History Tobacco Use [...] Description 07/04/2022 Appointment Otolaryngology Opal Richardson MD [address] [facility] N [id number] (Wo rk) 07/22/2022 Appointment Endocrinology Luis Daniel Bradley MBBS [address] [facility] N [id number] documented as of this encounter Procedures Procedure Name Priority Date/Time Associated Diagnosis Comme nts T3, FREE Routine 09/26/2021 8:13 AM Subacute thyroiditis R esults for this DIGGING MACHINE OPERATOR procedure are i n the results section . TSH, SENSITIVE Routine 09/26/2021 8:13 AM Subacute thyroiditis Results for this DIGGING MACHINE OPERATOR procedure are i n the results section . FREE T4 Routine 09/26/2021 8:13 AM Subacute thyroiditis R esults for this DIGGING MACHINE OPERATOR procedure are i n the results section . HGB A1C Routine 09/26/2021 8:13 AM Subacute thyroiditis R esults for this DIGGING MACHINE OPERATOR procedure are i n the results section . documented in this encounter Results HgbA1c (09/26/2021 8:13 AM DIGGING MACHINE OPERATOR) [facility] gist Method Time Signature Hemoglobin A1C 5.3 <=5.6 % 09/26/2021 [facility] DIGGING MACHINE OPERATOR CENTRAL LAB Specimen Anatomical Collection Method / Collection Time Recei ching Time (Source) Location / Volume Laterality Blood Venipuncture / 09/26/2021 8:13 09/26/2021 8:13 Unknown AM DIGGING MACHINE OPERATOR AM DIGGING MACHINE OPERATOR Lois Carr MD LAB_1 Performing Organization Address [facility] Phon e Number [facility] [address] [address] Free T4 (Expected: 42 days) (09/26/2021 8:13 AM DIGGING MACHINE OPERATOR) athologist Signature T4, Free 0.90 0.70 - 1.50 09/26/2021 [facility] ng/dL 2:20 PM DIGGING MACHINE OPERATOR LABORATORY Specimen Anatomical Collection Method / Collection Time Recei ching Time (Source) Location / Volume Laterality Blood Venipuncture / 09/26/2021 8:13 09/26/2021 8:13 Unknown AM DIGGING MACHINE OPERATOR AM DIGGING MACHINE OPERATOR Lois Carr MD LAB_1 Performing Organization Address City/[facility] Phon e Number [facility] [address] [place] [address] Free T3 (Expected: 42 days) (09/26/2021 8:13 AM DIGGING MACHINE OPERATOR) P athologist Signature T3, Free 2.20 1.70 - 3.70 09/26/2021 [facility] pg/mL 2:20 PM DIGGING MACHINE OPERATOR LABORATORY Specimen Anatomical Collection Method / Collection Time Recei ching Time (Source) Location / Volume Laterality Blood Venipuncture / 09/26/2021 8:13 09/26/2021 8:13 Unknown AM DIGGING MACHINE OPERATOR AM DIGGING MACHINE OPERATOR Lois Carr MD LAB_1 Performing Organization Address City/State/ZIP Code Phon e Number [facility] [address] [place] [address] TSH (Expected: 42 days) (09/26/2021 8:13 AM DIGGING MACHINE OPERATOR) athologist Signature TSH, Sensitive 2.62 0.30 - 09/26/2021 [facility] 4.50 2:21 PM DIGGING MACHINE OPERATOR LABORATORY uIU/mL Specimen Anatomical Collection Method / Collection Time Recei ching Time (Source) Location / Volume Laterality Blood Venipuncture / 09/26/2021 8:13 09/26/2021 8:13 Unknown AM DIGGING MACHINE OPERATOR AM DIGGING MACHINE OPERATOR Lois Carr MD LAB_1 Performing Organization Address City/State/ZIP Code Phon e Number [facility] [address] [place] [address] documented in this encounter Visit Diagnoses Diagnosis Subacute thyroiditis (HRC) Subacute thyroiditis documented in this encounter Care Teams Watch Manufacturing Supervisor Relationship Specialty Start Date End Date No Primary/Referring, Phy PCP - General 12/13/19 documented as of this encounter
--- OUTSIDE RECORDS SUMMARY | 2022-06-23 17:53 | XMS_ITS | Encounter Summary ---
:1990 Author [facility] Address [address], [place] [address] Care Team Providers Name Role Phone No Primary/Referring, Phy Primary Care Provider Unavailable Reason for Visit Reason Comments Follow-up Orders Needed Encounter Details Date Type Department Care Team Description 11/12/2021 Telephone [facility] [address] Lois Carr ollow-up; Orders Endocrinology MD Radha Needed [address] [facility] [address] [facility] [place] [address] [phone] (Wo rk) Social History Tobacco Use Types Packs/Day Years Used Date Smoking Tobacco: Never Smokeless Tobacco: Never Alcohol Use Standard Drinks/Week Comments Not Currently 0 (1 standard drink = 0.6 oz pure alcoho l) Sex Assigned at Date Recorded Not on file documented as of this encounter Progress Notes Petra Julien RN - 11/12/2021 3:56 PM CDT Addended by: PETRA JULIEN on: 11/12/2021 03:56 PM Modules accepted: Orders documented in this encounter Nursing Notes Petra Julien RN - 11/12/2021 3:55 PM CDT Pt. Verbalized understanding, agrees with plan, and has no further questions. Lois Carr MD - 11/12/2021 3:40 PM CDT Order signed and added to labs. She did already have a normal TSI 08/10 and her labs from 10/08 are normal. TSI would only go up during active Graves disease, so with normal thyroid levels, we generally would not test. I did still sign per patient request Caitlyn Hassan RN - 11/12/2021 12:37 PM CDT Pt sent my chart message and called in on 10/28, requesting TSI lab, in addition to thyroid labs already ordered. Please advise. Call pt with an update. documented in this encounter Plan of Treatment Upcoming Encounters Date Type Specialty Care Team Description 07/04/2022 Appointment Otolaryngology Opal Richardson MD [address] [facility] N [id number] (Wo rk) 07/22/2022 Appointment Endocrinology Luis Daniel Bradley MBBS [address] [facility] N [phone] documented as of this encounter Results Thyroid Stimulating Immunoglobulin (12/24/2021 8:17 AM CDT) [facility] Time Signature Thyroid Stimulating <0.10 <=0.54 12/28/2021 [facility] Immunoglobulins IU/L 2:33 AM CDT LABORATORIES Comment: INTERPRETIVE INFORMATION: Thyroid [...] history, an d other findings. Performed By: [facility] [address] [place] [id number] Lining Brusher: Malorie Rueda MD Specimen Anatomical Collection Method / Collection Time Recei ching Time (Source) Location / Volume Laterality Blood Venipuncture / 12/24/2021 8:17 12/24/2021 8:17 Unknown AM CDT AM CDT Lois Carr MD LAB_1 Performing Organization Address City/State/ZIP Code Phon e Number [email or web address] [address] [place] [address] [phone] documented in this encounter Visit Diagnoses Diagnosis H/O Graves' disease - Primary Personal history of other endocrine, met abolic, and immunity disorders documented in this encounter Care Teams Physics Professor Relationship Specialty Start Date End Date No Primary/Referring, Phy PCP - General 12/13/19 documented as of this encounter
--- OUTSIDE RECORDS SUMMARY | 2022-06-23 17:53 | XMS_ITS | Encounter Summary ---
:1990 [facility] Address [address], [place] [address] Care Team Providers Name Role Phone No Primary/Referring, Phy Primary Care Provider Unavailable Reason for Visit Reason Comments Knee Pain or Injury Right DOI:08/28/21 ELEUTERIO:jeri soni lunging to pear picker son Encounter Details Date Type Department Care Team Description 08/30/2021 Office Visit Traci Cooper ofemoral pain Orthopedic Urgent Samina Frank MD syndrome of right knee Care [address] (Primary Dx) [address] [place] [phone] Social History Tobacco Use Types Packs/Day Years Used Date Smoking Tobacco: Never Smokeless Tobacco: Never Alcohol Use Standard Drinks/Week Comments Not Currently 0 (1 standard drink = 0.6 oz pure alcoho l) Sex Assigned at Date Recorded Not on file documented as of this encounter Last Filed Vital Signs Vital Sign Reading Time Taken Comments Blood Pressure - - Pulse - - Temperature 36.7 ??C (98 ??F) 08/30/2021 10:10 AM FARO DEALER Respiratory Rate - - Oxygen Saturation - - Inhaled Oxygen Concentration - - Weight 63.5 kg (140 lb) 08/30/2021 10:10 AM FARO DEALER Height 170.2 cm (5' 7) 08/30/2021 10:10 AM FARO DEALER Body Mass Index 21.93 08/30/2021 10:10 AM FARO DEALER documented in this encounter Patient Instructions Patient InstructionsJocelyn West, JAYDEN - 08/30/2021 9:00 AM CST Thank you for choosing [facility] for your health care visit today. Traci Hsu MD Imaging Sports Team Manager: Camilla Luque [facility] [address] [place] [address]. Call [phone] to schedule. Medication Requests: Prescriptions are filled on Weekdays before 3:00PM For all medication refills: Request a refill using MyChart or contact your Pharmacy Paperwork Requests: FMLA or disability paperwork can be faxed to: [phone] Please allow 7-10 business days for completion of all paperwork. [facility] Worker's Compensation Services: E-mail Address: [email or web address] What is Know Your Cost? Know Your Cost is a service for patients and patient/members to call and receive personalized cost information and estimates across our care group. The phone number is (COST) Thursday - Thursday 8 AM to 5 PM To request copies of your medical records, call: [phone] (option 4) Diagnosis: Runner's knee Plan: Follow Up: As needed if symptoms are not improving or worsen. Medications: Over the Counter Medications: Acetaminophen (Tylenol) taken per bottle instructions unless specified by physician. Ibuprofen (Motrin) taken per bottle instructions unless specified by physician. RICE: - Utilize ice over the injured area (ice bag or bag of frozen vegetables) several times per day for up to 20 minutes at a time. Be sure to place a cold wet wash cloth or towel between the ice andyour skin. - Avoid activities that cause pain. If you have any questions regarding your visit or next steps, please contact us at [phone]. DEALER documented in this encounter Progress Notes Traci Hsu MD - 08/30/2021 9:00 AM CST Clinic Progress Note Patient Name: Destiney Cassidy : 1990 Date of Visit: 08/30/21 CC: Chief Complaint Patient presents with ??? Knee Pain or Injury Right DOI:08/28/21 ELEUTERIO:hurt knee lunging to pear picker son HPI: Destiney Cassidy is a 30 y.o. female presenting to clinic today for evaluation of right knee injury from a few days ago. She lunged quickly to pear picker her 1 y.o. son last night and it has been quite painful and swollen. Pain is mild to moderate, described as sharp. She was unable to weight-bear at alland had to call in to work. She was able to walk from the waiting room to the exam table but was limping. She has a past history of back surgery in 2010 which she stated was unnecessary. ROS: General: No fever or chills. Skin: No rash. GI: No stomach problems. Musculoskeletal: See HPI. No other joint problems. Neurologic: No tingling, numbness or focal weakness. ALLERGIES: Reviewed in [employer]. CURRENT MEDICATIONS: Reviewed in [employer]. PAST MEDICAL, SURGICAL, FAMILY AND SOCIAL HX: Reviewed in [facility]. VITALS: Temp 36.7 ??C (98 ??F) (Temporal Artery) Ht 1.702 m (5' 7) Wt 63.5 kg (140 lb) BMI 21.93 kg/m?? Height: 1.702 m (5' 7) Weight: 63.5 kg (140 lb) I have personally reviewed the patient's medical history, medications, allergies, and vital signs. PHYSICAL EXAM: General: Awake, alert, and in no acute distress. Neuro: Neurovascular status is normal. MSK/Extremities: Right knee exam: Minimal soft tissue swelling at the medial aspect of the knee. Negative tenderness on palpation of the medial or lateral joint line. Positive tenderness on palpation of the medial patellar retinacular region. Negative tenderness at the medial femoral condyle. Trace effusion. Range of motion: Normal. Ligaments: Negative Obdulio test. Negative Ivan's test. Neurovascular: No edema, no cyanosis, pulses full and equal. Normal sensation to light touch - both lower extremities. IMAGING: No new imaging performed today. ASSESSMENT: 1. Patellofemoral pain syndrome of right knee PLAN: I think she has patellofemoral pain, unlikely that this is meniscus as she does not have a large effusion or joint line tenderness. Information on her knee given. Advised home treatment, ice, ibuprofen, etc. Follow-up in two weeks if needed. Destiney agrees with the treatment plan. All questions answered. They were advised to contact the clinic with any questions regarding what was discussed at this office visit. Scribe Disclosure: Scribed for Traci Hsu MD by sofía Fernandez, on 08/30/2021 at 9:48 PM. ITraci MD, have personally reviewed and agreed with the information entered by [employer]. DEALER documented in this encounter Plan of Treatment Upcoming Encounters Date Type Specialty Care Team Description 07/04/2022 Appointment Otolaryngology Opal Richardson MD [address] [id number] (Wo rk) 07/22/2022 Appointment Endocrinology Luis Daniel Bradley [facility] [address] [id number] documented as of this encounter Visit Diagnoses Diagnosis Patellofemoral pain syndrome of right kn ee - Primary documented in this encounter Care Teams Cis Coordinator Relationship Specialty Start Date End Date No Primary/Referring, Phy PCP - General 12/13/19 documented as of this encounter
--- OUTSIDE RECORDS SUMMARY | 2022-06-23 17:53 | XMS_ITS | Encounter Summary ---
:1990 Author Organization [facility] Address [address] [place] [address] Care Team Providers Name Role Phone No Primary/Referring, Phy Primary Care Provider Unavailable Encounter Details Date Type Department Care Team Description 12/24/2021 Lab Visit [facility] H/O Graves' disease [address] [place] [address] Social History Tobacco Use [...] Description 07/04/2022 Appointment Otolaryngology Opal Richardson MD [address] [facility] N [id number] (Wo rk) 07/22/2022 Appointment Endocrinology Luis Daniel Bradley [facility] [address] [facility] [address] [id number] documented as of this encounter Procedures Procedure Name Priority Date/Time Associated Comments Diagnosis THYROID STIMULATING Routine 12/24/2021 8:17 AM H/O Graves' Re sults for this IMMUNOGLOBULIN CDT disease procedure are in the results section. T3, FREE Routine 12/24/2021 8:17 AM H/O Graves' Results f or this CDT disease procedure are i n the results section. TSH, SENSITIVE Routine 12/24/2021 8:17 AM H/O Graves' Results for this CDT disease procedure are i n the results section. FREE T4 Routine 12/24/2021 8:17 AM H/O Graves' Results f or this CDT disease procedure are i n the results section. documented in this encounter Results Thyroid Stimulating Immunoglobulin (12/24/2021 8:17 AM CDT) Patholo gist Method Time Signature Thyroid Stimulating <0.10 <=0.54 12/28/2021 [...] history, an d other findings. Performed By: [facility] [address] [place] [address] Lodging Facilities Attendant: Malorie Rueda MD Specimen Anatomical Collection Method / Collection Time Recei ching Time (Source) Location / Volume Laterality Blood Venipuncture / 12/24/2021 8:17 12/24/2021 8:17 Unknown AM CDT AM CDT Lois Carr MD LAB_1 Performing Organization Address City/State/ZIP Code Phon e Number [employer] [address] [place], [place] [phone] Free T3 (Expected: 120 days) (12/24/2021 8:17 AM CDT) athologist Signature T3, Free 2.90 1.70 - 3.70 12/24/2021 [facility] pg/mL 12:24 PM CDT LABORATORY Specimen Anatomical Collection Method / Collection Time Recei ching Time (Source) Location / Volume Laterality Blood Venipuncture / 12/24/2021 8:17 12/24/2021 8:17 Unknown AM CDT AM CDT Lois Carr MD LAB_1 Performing Organization Address [facility] Phon e Number [facility] [address] [place] [address] Free T4 (Expected: 120 days) (12/24/2021 8:17 AM CDT) P athologist Signature T4, Free 0.90 0.70 - 1.50 12/24/2021 [facility] ng/dL 12:24 PM CDT LABORATORY Specimen Anatomical Collection Method / Collection Time Recei ching Time (Source) Location / Volume Laterality Blood Venipuncture / 12/24/2021 8:17 12/24/2021 8:17 Unknown AM CDT AM CDT Lois Carr MD LAB_1 Performing Organization Address [facility] Phon e Number [facility] [address] [place] [address] TSH (Expected: 120 days) (12/24/2021 8:17 AM CDT) P athologist Signature TSH, Sensitive 2.96 0.30 - 12/24/2021 [facility] 4.50 12:24 PM CDT LABORATORY uIU/mL Specimen Anatomical Collection Method / Collection Time Recei ching Time (Source) Location / Volume Laterality Blood Venipuncture / 12/24/2021 8:17 12/24/2021 8:17 Unknown AM CDT AM CDT Lois Carr MD LAB_1 Performing Organization Address [facility] Phon e Number [facility] [address] [place] [address] documented in this encounter Visit Diagnoses Diagnosis H/O Graves' disease Personal history of other endocrine, met abolic, and immunity disorders documented in this encounter Care Teams Pathology Collector Relationship Specialty Start Date End Date No Primary/Referring, Phy PCP - General 12/13/19 documented as of this encounter
--- OUTSIDE RECORDS SUMMARY | 2022-06-23 17:53 | XMS_ITS | Encounter Summary ---
:1990 [facility] Address [address] [place] [address] Care Team Providers Name Role Phone No Primary/Referring, Phy Primary Care Provider Unavailable Reason for Visit Reason Comments HIP PAIN Encounter Details Date Type Department Care Team Description 09/18/2021 Therapy [facility] PT and Ed Center, Katty Arreaga, PT Iliopsoas bursitis of left hip (Primary Dx); Physical Therapy [address] [facility] Right knee pain, unspecified chronicity [address] [place] [address] [place], [place] [address] [phone] Social History Tobacco Use Types Packs/Day Years Used Date Smoking Tobacco: Never Smokeless Tobacco: Never Alcohol Use Standard Drinks/Week Comments Not Currently 0 (1 standard drink = 0.6 oz pure alcoho l) Sex Assigned at Date Recorded Not on file documented as of this encounter Progress Notes Katty Arreaga, PT - 09/18/2021 9:30 AM CST [facility] [place] [facility] Daily Note Visit Number: 3 BCBS: Other Initial Certification Period: 08/29/2021 to [...] L hip with recommendations of Dr Wilfred Ramríez recent hip consult, Additional factors: Post x 1 year, history of constipation, post thyroiditis, R Knee and R ankle history and hx of lumbar surgery hx in 2010 with increase s/s around Jun 2021. Repeat MRI with reassurance as was looking good. Pt planning to conceive upcoming prn. 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 Able to do R knee exercises on consistent basis and noted improvement but intermittent sharp pain in R knee with deeper knee bend transitional movements. 10 min elliptical and 20 min TM with brace and no difficulties reported. Increase walking with stroller as well. L hip pain much reduced - maybe I'm just thinking about it less with my R knee being the > factor. Looking fwd to return to health club post illness. OBJECTIVE: Today's Findings: R Anterior Innominate Rotation - not present on 3/2 L Psoas Tenderness R moderate Patellar Lateral tracking with + Q angle - patellar brace use R knee Quad inhibition -absent swelling B Hip Strength reduction in all planes 4-/5 Globally SLR R x 60 - + adduction structural diff bias for neurotension B SLR L x 60 TREATMENT TODAY: Therapeutic Exercise (CPT 13871) x 20 Min: Utilized for the purpose of improving strength, ROM, endurance, and/or flexibility. Time included education re: principles of load and capacity, the role of inflammation in pain/exercise, the role of endogenous chemicals in aerobic exercises along with specifics regarding the how and why to below exercises. Updated recommendations of current gym program with addition of R knee pain onset with hold on Bike - 30 min between TM/Ellipitical Recommendations for continuation with UE program B SLR x 10 B SLR with ER or SL hip adduction for VMO activation x 10 Clam shell B x 10 x 10 holds Glut/HS bridges with feet on 6 step - attempted single - pt unable to perform Self Care/Home Management Training (86783) x 10 Min: Training in activities of [...] diagnosis and recovery Timed Code Treatment Minutes: 30 Total Treatment Minutes: 30 ASSESSMENT: Pt arrives today with report of recent household illness limiting overall return to clubprogress with knee and hip care. Noted improvement with each on this date. Patellar brace appears helpful per pt report for deeper knee bend activities - sensitivity and uncertaininty remains. ImprovedL hip/LQ sensitivity and increased tolerance to gym program prior to knee episode. 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 Pain is localized [...] avoidance behavior and history of anxiety. PLAN: Progress patient as tolerated in strength, flexibility, aerobic capacity while monitoring pain levels and adjusting accordingly. EXPECTED FUNCTIONAL OUTCOMES/GOALS: HEP/Independent Management: Demonstrate independence with HEP and self- management following each treatment session ADL's: Perform home management tasks with ease in 4 (including children's book author demands with increase ease) weeks. Ambulation: Ascend/descend stairs independently with reciprocal pattern with minimal to no symptoms and improved lower extremity alignment in 4 weeks. Sports/Leisure: Return to prior level of leisure or recreational activities, including cardio x 30 min and weight training without an increase in symptoms or limitations in 6 weeks. Therapist: Katty Arreaga, PT 9:37 AM 09/18/2021 TURRET LATHE SET UP OPERATOR documented in this encounter Plan of Treatment Upcoming Encounters Date Type Specialty Care Team Description 07/04/2022 Appointment Otolaryngology Opal Richardson MD [address] [id number] (Wo rk) 07/22/2022 Appointment Endocrinology Luis Daniel Bradley [facility] [address] [id number] documented as of this encounter Visit Diagnoses Diagnosis Iliopsoas bursitis of left hip - Primary Right knee pain, unspecified chronicity documented in this encounter Care Teams Blanket Winder Operator Relationship Specialty Start Date End Date No Primary/Referring, Phy PCP - General 12/13/19 documented as of this encounter
--- OUTSIDE RECORDS SUMMARY | 2022-06-23 17:53 | XMS_ITS | Encounter Summary ---
:1990 Author [facility] Address [address] [place] [address] Care Team Providers Name Role Phone No Primary/Referring, Phy Primary Care Provider Unavailable Reason for Visit Reason Comments Hip Problem Encounter Details Date Type Department Care Team Description 01/07/2022 Therapy [facility] PT and Ed Center, Katty Arreaga PT Hip pain (Primary Dx); Physical Therapy [address] [facility] Instability of pelvis or thigh joint; [address] [place] [address] 17 weeks gestation of [place], [place] [address] [phone] Social History Tobacco Use Types Packs/Day Years Used Date Smoking Tobacco: Never Smokeless Tobacco: Never Alcohol Use Standard Drinks/Week Comments Not Currently 0 (1 standard drink = 0.6 oz pure alcoho l) Sex Assigned at Date Recorded Not on file documented as of this encounter Progress Notes Katty Arreaga, PT - 01/07/2022 9:30 AM CDT [facility] Orthopaedic [place] [facility] Daily Note Visit Number: 9 BCBS: Other SOC: 08/29/2021 Referring Provider: Justin Ramírez Updated orders for related care = SIMA Garcia MD Diagnosis: Iliopsoas L hip bursitis Orders: [...] Pt planning to conceive upcoming prn. 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 SUBJECTIVE: Functional Status/Patient Report: Ended up having MRI which led to a lot of stress. Also developedshingles and have been treated. L pelvis irritated after cares with son. Headed on vacation today and was hoping to get my L hip addressed. Pt currently 17 weeks and undergoing systematic vaginal US secondary to 1M premature with first /delivery. R foot/great toe pain absent and pt return to wearing regular shoes with support vs walking boot. OBJECTIVE: Today's Findings: Iliosacral alignment: L Anterior T/L junction restrictions TREATMENT TODAY: Manual Therapy (05932) x 15 min: Utilized for the purpose of improving mobility and blood flow alongwith pain reduction principles. Pre and Post assessment time included along with time for the explanations and role of manual therapy = facilitation to recovery vs fix. L SL for R L/P Mobs R SL for L MET - pictures with pt's phone taken for to perform prn L L/S passive neuroglides - 20 degree SLR increase post - DNP Therapeutic Exercise (CPT 42380) x 0 Min: Utilized for the purpose of improving strength, ROM, endurance, and/or flexibility. Time included education re: principles of load and capacity, the role of inflammation in pain/exercise, the role of endogenous chemicals in aerobic exercises along with specifics regarding the how and why to below exercises. Updated recommendations of current gym program: Recumbent bike at home - hold on TM/elliptical secondary to R foot Red dot exercise for current stage of and foot limitations created HEP review: B SLR x 10 B SLR with ER or SL hip adduction for VMO activation x 10 *Clam shell B x 5 x 30 holds Glut/HS bridges with feet on 6 step - attempted single - pt unable to perform *Open book for T spine mobility *All 4 or modified for T spine and pelvic gentle mobility Self Care/Home Management Training (31845) x 10 Min: Training in activities of daily living is medically reasonable and necessary and expected to restore or improve the functioning of the patient. The patient has the capacity to learn from the instructions and the therapist was actively lecturing, demonstrating and providing literature in order to assist with patient appropriately and safely performing task. -Updates with addition of - time spent on medical updates, concerns and desire to continuecare for pelvic girdle, and LE as able - Trial with SI belt suggested - pt has and is comfortable with use from previous - Time spent on reassurance with current care strategies Timed Code Treatment Minutes: 25 Total Treatment Minutes: 25 ASSESSMENT: 17 weeks gestation. Pt broading care to include musculoskeletal care during toaddress LB/pelvic girdle. Pt arrives with increase R sided posterior pelvic girdle pain which responded well with MET on this date. Pt with strong beliefs and noted high anxiety re: medical care as multiple previous negative experiences. 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 Pain is localized to [...] anxiety. PLAN: F/u on R foot pain. F/u on status. Reformer prn. Progress patient as tolerated in strength, flexibility, aerobic capacity while monitoring pain levels and adjusting accordingly. EXPECTED FUNCTIONAL OUTCOMES/GOALS: HEP/Independent Management: Demonstrate independence with HEP and self- management following each treatment session ADL's: Perform home management tasks with ease in 4 (including children's zoo caretaker demands with increase ease) weeks. Ambulation: Ascend/descend stairs independently with reciprocal pattern with minimal to no symptoms and improved lower extremity alignment in 4 weeks. Sports/Leisure: Return to prior level of leisure or recreational activities, including cardio x 30 min and weight training without an increase in symptoms or limitations in 6 weeks. Therapist: Katty Arreaga, PT 9:37 AM 01/07/2022 documented in this encounter Plan of Treatment Upcoming Encounters Date Type Specialty Care Team Description 07/04/2022 Appointment Otolaryngology Opal Richardson MD [address] [facility] [address] N [id number] (Wo rk) 07/22/2022 Appointment Endocrinology Luis Daniel Bradley [facility] [address] [facility] [address] [id number] documented as of this encounter Visit Diagnoses Diagnosis Hip pain - Primary Pain in joint, pelvic region and thigh Instability of pelvis or thigh joint Other joint derangement, not elsewhere c lassified, pelvic region and thigh 17 weeks gestation of state, incidental documented in this encounter Care Teams Data Communications Engineer Relationship Specialty Start Date End Date No Primary/Referring, Phy PCP - General 12/13/19 documented as of this encounter
--- OUTSIDE RECORDS SUMMARY | 2022-06-23 17:53 | XMS_ITS | Encounter Summary ---
:1990 [facility] Address [address] [place] [address] Care Team Providers Name Role Phone No Primary/Referring, Phy Primary Care Provider Unavailable Encounter Details Date Type Department Care Team Description 12/19/2021 Telephone [facility] [address] , Endocrinology [address] [place] [address] [place], [place] [phone] (Wo rk) Social History Tobacco Use Types Packs/Day Years Used Date Smoking Tobacco: Never Smokeless Tobacco: Never Alcohol Use Standard Drinks/Week Comments Not Currently 0 (1 standard drink = 0.6 oz pure alcoho l) Sex Assigned at Date Recorded Not on file documented as of this encounter Nursing Notes Lois Carr MD - 12/19/2021 1:47 PM CDT I agree with checking labs earlier. Will await results. Petra Julien RN - 12/19/2021 1:30 PM CDT Pt called to report increased jitteriness and racing heart. She requested labs be done sooner then previous expected date at the end of December. Dates were changed to accommodate her symptoms. Just FYI documented in this encounter Plan of Treatment Upcoming Encounters Date Type Specialty Care Team Description 07/04/2022 Appointment Otolaryngology Opal Richardson MD [address] [phone] (Wo rk) 07/22/2022 Appointment Endocrinology Luis Daniel Bradley [facility] [address] [id number] documented as of this encounter Visit Diagnoses Not on filedocumented in this encounter Care Teams Nurseryman Assistant Relationship Specialty Start Date End Date No Primary/Referring, Phy PCP - General 12/13/19 documented as of this encounter
--- OUTSIDE RECORDS SUMMARY | 2022-06-23 17:53 | XMS_ITS | Encounter Summary ---
:1990 [facility] Address [address] [place] [address] Care Team Providers Name Role Phone No Primary/Referring, Phy Primary Care Provider Unavailable Reason for Visit Reason Comments HIP PAIN Encounter Details Date Type Department Care Team Description 02/11/2022 Therapy [facility] Ed [facility], Katty Arreaga PT Hip pain (Primary Dx); Physical Therapy [address] [facility] Instability of pelvis or thigh joint; [address] [place] [address] 22 weeks gestation of [place], [place] [address] [phone] Social History Tobacco Use Types Packs/Day Years Used Date Smoking Tobacco: Never Smokeless Tobacco: Never Alcohol Use Standard Drinks/Week Comments Not Currently 0 (1 standard drink = 0.6 oz pure alcoho l) Sex Assigned at Date Recorded Not on file documented as of this encounter Progress Notes Katty Arreaga, PT - 02/11/2022 9:00 AM CDT [facility] Daily Note Visit Number: 12 BCBS: Other SOC: 08/29/2021 Referring Provider: Justin [...] Pt planning to conceive upcoming prn. 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 SUBJECTIVE: Functional Status/Patient Report: 22+ weeks. Decrease pain severity and irritability as previous in posterior pelvic girdle. Upcoming car trip with spouse to [facility] for 6 year anniversary. OBJECTIVE: Today's Findings: Iliosacral alignment: WNL's T/L junction restrictions Pain with any resisted L hip abduction - mild improve,ent Tenderness to L glut - improved + Thigh Thurst L SLR 50 L vs 60 R - more sensitive vs previous TREATMENT TODAY: Manual Therapy (69464) x 8 min: Utilized for the purpose of improving mobility and blood flow along with pain reduction principles. Pre and Post assessment time included along with time for the explanations and role of manual therapy = facilitation to recovery vs fix. R SL for L/P Mobs - Grade 1-3 R SL for L/S sliders x 10 x 2 R SL for L MET - DNP Therapeutic Exercise (CPT 12317) x 10 Min: Utilized for the purpose of improving strength, ROM, endurance, and/or flexibility. Time included education re: principles of load and capacity, the role of inflammation in pain/exercise, the role of endogenous chemicals in aerobic exercises along with specifics regarding the how and why to below exercises. Access Code: [email or web address] - emailed on 02/05/22 RED DOT * exercises for current stage of and current s/s Exercises Seated Hip Adduction Isometrics with Ball [...] - 5-10 reps* Self Care/Home Management Training (68787) x 5 Min: Training in activities of [...] pelvic girdle, and LE as able - Reassurance/validation in current dedicated regional driver in pain experience - hormone factors, tendonopathy - Trial with SI belt suggested - pt has and is comfortable with use from previous Timed Code Treatment Minutes: 23 Total Treatment Minutes: 23 ASSESSMENT: 22 +weeks gestation. Pt broading care to include musculoskeletal care during to address LB/pelvic girdle. Decrease irritability to L sided glut med tendonopathy with components ofpelvic girdle pain and mild peripheral neurogenic pain from L4/L5. Pt thoughtfully utilizing strategies re: and [...] consistent with nociceptive pain mechanism as primary dedicated regional driver inpain experience. Pain is localized to [...] in 6 weeks. Therapist: Katty Arreaga PT 9:16 AM 02/11/2022 documented in this encounter Plan of Treatment Upcoming Encounters Date Type Specialty Care Team Description 07/04/2022 Appointment Otolaryngology Opal Richardson MD [address] [id number] (Wo rk) 07/22/2022 Appointment Endocrinology Luis Daniel Bradley MBBS [address] [address] documented as of this encounter Visit Diagnoses Diagnosis Hip pain - Primary Pain in joint, pelvic region and thigh Instability of pelvis or thigh joint Other joint derangement, not elsewhere c lassified, pelvic region and thigh 22 weeks gestation of state, incidental documented in this encounter Care Teams Electrician Chief Relationship Specialty Start Date End Date No Primary/Referring, Phy PCP - General 12/13/19 documented as of this encounter
--- OUTSIDE RECORDS SUMMARY | 2022-06-23 17:53 | XMS_ITS | Encounter Summary ---
:1990 [facility] Address [address] [address] Care Team Providers Name Role Phone No Primary/Referring, Phy Primary Care Provider Unavailable Encounter Details Date Type Department Care Team Description 11/19/2021 Office Visit Specialty Center [address] [facility], [facility] [place] [address] [phone] Social History Tobacco Use Types Packs/Day Years Used Date Smoking Tobacco: Never Smokeless Tobacco: Never Alcohol Use Standard Drinks/Week Comments Not Currently 0 (1 standard drink = 0.6 oz pure alcoho l) Sex Assigned at Date Recorded Not on file documented as of this encounter Progress Notes Mellisa Benson, [place] - 11/19/2021 2:00 PM CDT Patient Name: Destiney Cassidy : 1990 Date of Visit: 11/19/2021 ORTHOTICS - L.E. - FO FITTING CUSTOM FABRICATED Custom Fabricated Device: Custom Fabricated Foot Orthotic Pt seen today for delivery of custom FO???s, made by [facility]. The items were checked and found free of manufactures defect. I trimmed and ground the FO???s for a precise fit against the pt???s foot and checked the fit within the pt???s shoes. Pt???s gait and alignment was checked while walking and standing, the heels were in good alignment and the arch was supported. Pt pleased with the fit and feel. Break-in instructions for the FO provided. All questions answered. Discussed the following paper work: consent form and written instructions Received signatures and gave copies to patient: {yes Educated patient on wear and care, and on donning and doffing: {yes Discussed treatment plan, methods, expectations, and outcomes with Patient: {yes Please chose outcomes as discussed: reduce pain, enhancing function, increase comfort and providing joint stability Plan of Care: 2 weeks Patient has appropriate depth inlay shoes: {yes HYUN Milian 5161 documented in this encounter Plan of Treatment Upcoming Encounters Date Type Specialty Care Team Description 07/04/2022 Appointment Otolaryngology Opal Richardson MD [address] [id number] (Wo rk) 07/22/2022 Appointment Endocrinology Luis Daniel Bradley MB[facility] [address] [address] documented as of this encounter Visit Diagnoses Not on filedocumented in this encounter Care Teams Brokerage Coordinator Relationship Specialty Start Date End Date No Primary/Referring, Phy PCP - General 12/13/19 documented as of this encounter
--- OUTSIDE RECORDS SUMMARY | 2022-06-23 17:53 | XMS_ITS | Encounter Summary ---
:1990 [facility] Address [address], [place] [address] Care Team Providers Name Role Phone No Primary/Referring, Phy Primary Care Provider Unavailable Reason for Referral (Routine) - New Request Specialty Diagnoses / Procedures Referred By Contact Refer red To Contact Diagnoses Burning sensation of skin Rojelio Monroy MD Procedures E-Consult to Neurology [address] [id number] Referral ID Status Reason Start Date Expiration Date Visits V isits Requested Authorized [id number] New Request 01/05/2022 04/06/2023 1 1 Reason for Visit Reason Comments LAB RESULTS Encounter Details Date Type Department Care Team Description 01/02/2022 Telephone [facility] Rojelio Monroy MD LAB RESULTS [id number] [facility] [address] [id number] [address] [place] [address] (Wo rk) Social History Tobacco Use Types Packs/Day Years Used Date Smoking Tobacco: Never Smokeless Tobacco: Never Alcohol Use Standard Drinks/Week Comments Not Currently 0 (1 standard drink = 0.6 oz pure alcoho l) Sex Assigned at Date Recorded Not on file documented as of this encounter Nursing Notes Rojelio Monroy MD - 01/07/2022 4:53 PM CDT Please let patient know that the Neuro e-consult was place and the response from the was that MRI would not be expected to cause. Would try shingles based on standard of care. Please advise patient that the neurologist is essentially saying this is likely the shingles. If hersymptoms are persisting after the shingles rash has fully resolved, we will place a formal neurologyreferral so she can be seen in person. Rojelio Monroy MD Cherelle Bennett PA-C - 01/02/2022 1:42 PM CDT Ok to wait for PCP. She appears to already have a consult scheduled with neurology on 01/17. Cherelle Bennett PA-C Kitty Roberson LPN - 01/02/2022 1:22 PM CDT DOD please advise if able to place order for e-consult, order pended. Kitty Cleveland LPN, 01/02/2022, 1:25 PM [facility] - 01/02/2022 11:50 AM CDT Test Results Patient is calling in regards to: a laboratory test result comment Result comment or letter available? Yes - Information given to patient Are there additional questions? Yes What is your question or concern? Patient is interested in completing a consult with Neurology - Please place orders. Patient would like a call back once order has been placed. Patient was encouraged to reach out to her insurance for coverage information in the mean time. Date test was done: 01/01/22 [Inventory Controller/Appt Center: If completed externally, where?] Name of ordering clinician: Rojelio Monroy MD Is it okay to leave detailed message on your voicemail? Yes For this medication, patient would like it filled at the pharmacy listed in Meds & Orders. [Inventory Controller/Appt Center: Verify the pharmacy patient would like to use for this request is highlighted in blue in Pharmacy Selection under Meds & Orders] Is there anything else I can help you with today? [facility] Please route to: Care Team Pool documented in this encounter Plan of Treatment Upcoming Encounters Date Type Specialty Care Team Description 07/04/2022 Appointment Otolaryngology Opal Richardson MD [address] [phone] (Wo rk) 07/22/2022 Appointment Endocrinology Luis Daniel Bradley MB[facility] [address] [phone] documented as of this encounter Visit Diagnoses Diagnosis Burning sensation of skin - Primary documented in this encounter Care Teams Humane Officer Relationship Specialty Start Date End Date No Primary/Referring, Phy PCP - General 12/13/19 documented as of this encounter
--- OUTSIDE RECORDS SUMMARY | 2022-06-23 17:53 | XMS_ITS | Encounter Summary ---
:1990 Author Organization [facility] Address [address], [place] [address] Care Team Providers Name Role Phone No Primary/Referring, Phy Primary Care Provider Unavailable Encounter Details Date Type Department Care Team Description 01/01/2022 Lab Visit [facility] Burning pain [address] [place], [place] [address] Social History Tobacco Use Types Packs/Day Years Used Date Smoking Tobacco: Never Smokeless Tobacco: Never Alcohol Use Standard Drinks/Week Comments Not Currently 0 (1 standard drink = 0.6 oz pure alcoho l) Sex Assigned at Date Recorded Not on file documented as of this encounter Plan of Treatment Upcoming Encounters Date Type Specialty Care Team Description 07/04/2022 Appointment Otolaryngology Opal Richardson MD [address] [facility] [address] [phone] (Wo rk) 07/22/2022 Appointment Endocrinology Luis Daniel Bradley [facility] [address] [facility] [address] [phone] documented as of this encounter Procedures Procedure Name Priority Date/Time Associated Diagnosis Comme nts COMP METABOLIC Routine 01/01/2022 7:59 AM Burning pain Results for this PANEL CDT procedure are i n the results section. COMPLETE BLOOD Routine 01/01/2022 7:59 AM Burning pain Results for this COUNT-NO DIFF CDT procedure are in the results section. FERRITIN Routine 01/01/2022 7:59 AM Burning pain Results f or this CDT procedure are i n the results section. VITAMIN B12 ONLY Routine 01/01/2022 7:59 AM Burning pain Resul ts for this CDT procedure are i n the results section. IRON PROFILE Routine 01/01/2022 7:59 AM Burning pain Results f or this (IRON,TIBC,%SAT.(CA CDT procedur e are in LC)) the results section. documented in this encounter Results (ABNORMAL) Vitamin B12 Only (01/01/2022 7:59 AM CDT) [facility] Method Time Signature Vitamin B12 1,177 (H) 213 - 816 01/01/2022 [facility] pg/mL 3:43 PM CDT [facility] Specimen Anatomical Collection Method / Collection Time Recei ching Time (Source) Location / Volume Laterality Blood Venipuncture / 01/01/2022 7:59 01/01/2022 7:59 Unknown AM CDT AM CDT Rojelio Monroy MD LAB_1 Performing Organization Address [facility] Phon e Number [facility] [address] [address] Ferritin (01/01/2022 7:59 AM CDT) athologist Signature Ferritin 12 9 - 204 01/01/2022 [facility] ng/mL 1:15 PM CDT C[facility]AL [facility] Specimen Anatomical Collection Method / Collection Time Recei ching Time (Source) Location / Volume Laterality Blood Venipuncture / 01/01/2022 7:59 01/01/2022 7:59 Unknown AM CDT AM CDT Rojelio Monroy MD LAB_1 Performing Organization Address [facility] Phon e Number [facility] [address] [address] Iron Profile (Iron,TIBC,%Sat.(Calc)) (01/01/2022 7:59 AM CDT) [facility] Method Time Signature Iron 75 50 - 170 01/01/2022 [facility] mcg/dL 1:00 PM CDT [facility]AL [facility] Transferrin 327 180 - 382 01/01/2022 [facility] mg/dL 1:00 PM CDT [facility] TIBC, 409 240 - 450 01/01/2022 [facility] Calculated mcg/dL 1:00 PM CDT CENTRAL [facility] % Saturation, 18 10 - 50 % 01/01/2022 [facility] Calculated 1:00 PM CDT CENTRAL [facility] Specimen Anatomical Collection Method / Collection Time Recei ching Time (Source) Location / Volume Laterality Blood Venipuncture / 01/01/2022 7:59 01/01/2022 7:59 Unknown AM CDT AM CDT Rojelio Monroy MD LAB_1 Performing Organization Address City/State/ZIP Code Phon e Number [facility] C[facility]AL [facility] [address] [address] (ABNORMAL) Comp Metabolic Panel (01/01/2022 7:59 AM CDT) [facility] gist Method Time Signature Sodium 135 (L) 136 - 145 01/01/2022 [facility] mmol/L 1:00 PM CDT CEN[facility]AL [facility] Potassium 4.5 3.5 - 5.1 01/01/2022 [facility] mmol/L 1:00 PM CDT CEN[facility]AL LAB Chloride 105 98 - 109 01/01/2022 [facility] mmol/L 1:00 PM CDT C[facility]AL [facility] CO2 22 20 - 29 01/01/2022 [facility] mmol/L 1:00 PM CDT C[facility]AL [facility] Anion Gap 8 7 - 16 01/01/2022 [facility] mmol/L 1:00 PM CDT CEN[facility]AL LAB Calcium 8.9 8.4 - 01/01/2022 [facility] 10.4 1:00 PM CDT [facility] mg/dL BUN 8 7 - 26 01/01/2022 [facility] mg/dL 1:00 PM CDT C[facility]AL LAB Creatinine 0.58 0.55 - 01/01/2022 [facility] 1.02 1:00 PM CDT C[facility]AL [facility] mg/dL GFR, Estimated >60 >60 01/01/2022 [facility] mL/min/1. 1:00 PM CDT CENTRAL LAB 73m2 Alkaline 42 40 - 150 01/01/2022 [facility] Phosphatase U/L 1:00 PM CDT C[facility]AL [facility] AST (SGOT) 13 10 - 40 01/01/2022 [facility] U/L 1:00 PM CDT [facility] ALT (SGPT) 10 0 - 55 01/01/2022 [facility] U/L 1:00 PM CDT CENTRAL LAB Bilirubin, 0.8 0.2 - 1.2 01/01/2022 [facility] Total mg/dL 1:00 PM CDT CENTRAL LAB Protein, Total 6.3 (L) 6.4 - 8.3 01/01/2022 [facility] g/dL 1:00 PM CDT CENTRAL [facility] Albumin 3.2 (L) 3.5 - 5.0 01/01/2022 [facility] g/dL 1:00 PM CDT CEN[facility]AL LAB Glucose 82 70 - 100 01/01/2022 [facility] mg/dL 1:00 PM CDT CENTRAL [facility] Comment: The given reference range is fo r the fasting state. Non-fasting reference range for glucose is 70 - 180 mg/dL. Hours Fasting Unknown 01/01/2022 1:00 PM CDT [facility] Specimen Anatomical Collection Method / Collection Time Recei ching Time (Source) Location / Volume Laterality Blood Venipuncture / 01/01/2022 7:59 01/01/2022 7:59 Unknown AM CDT AM CDT Rojelio Monroy MD LAB_1 Performing Organization Address City/State/ZIP Code Phon e Number [facility] C[facility]AL [facility] [address] [id number] [facility] [address] [place] [address] Complete Blood Count-No Diff (01/01/2022 7:59 AM CDT) P athologist Signature WBC 6.4 3.5 - 10.5 01/01/2022 [place] x10(9)/L 8:52 AM CDT LAB RBC 4.02 3.90 - 5.03 01/01/2022 [place] x10(12)/L 8:52 AM CDT LAB Hemoglobin 12.1 12.0 - 15.5 01/01/2022 [place] g/dL 8:52 AM CDT LAB HCT 36.3 34.9 - 44.5 01/01/2022 [place] % 8:52 AM CDT LAB MCV 90.3 80.0 - 01/01/2022 [place] 100.0 fL 8:52 AM CDT LAB MCH 30.1 27.6 - 33.3 01/01/2022 [facility] pg 8:52 AM CDT LAB MCHC 33.3 31.5 - 35.2 01/01/2022 [place] g/dL 8:52 AM CDT LAB RDW 13.1 11.9 - 15.5 01/01/2022 [place] % 8:52 AM CDT LAB Platelets 263 150 - 450 01/01/2022 [place] x10(9)/L 8:52 AM CDT LAB Specimen Anatomical Collection Method / Collection Time Recei ching Time (Source) Location / Volume Laterality Blood Venipuncture / 01/01/2022 7:59 01/01/2022 7:59 Unknown AM CDT AM CDT Rojelio Monroy MD LAB_1 Performing Organization Address City/State/ZIP Code Phon e Number [facility] [address] [place] [address] documented in this encounter Visit Diagnoses Diagnosis Burning pain Generalized pain documented in this encounter Care Teams Square Shear Operator Relationship Specialty Start Date End Date No Primary/Referring, Phy PCP - General 12/13/19 documented as of this encounter
--- OUTSIDE RECORDS SUMMARY | 2022-06-23 17:53 | XMS_ITS | Encounter Summary ---
:1990 Author Organization [email or web address] Address [address] [address] Care Team Providers Name Role Phone No Primary/Referring, Phy Primary Care Provider Unavailable Reason for Visit Reason Comments TINGLING Burning sensation Encounter Details Date Type Department Care Team Description 01/01/2022 Office Visit [facility] Rojelio Monroy Bu rning pain (Primary Dx); Practice Herpes zoster with other complication [address] [address] [phone] Social History Tobacco Use Types Packs/Day Years Used Date Smoking Tobacco: Never Smokeless Tobacco: Never Alcohol Use Standard Drinks/Week Comments Not Currently 0 (1 standard drink = 0.6 oz pure alcoho l) Sex Assigned at Date Recorded Not on file documented as of this encounter Last Filed Vital Signs Vital Sign Reading Time Taken Comments Blood Pressure 103/74 01/01/2022 7:30 AM CDT Pulse 91 01/01/2022 7:30 AM CDT Temperature - - Respiratory Rate - - Oxygen Saturation - - Inhaled Oxygen Concentration - - Weight 64 kg (141 lb) 01/01/2022 7:30 AM CDT Height - - Body Mass Index 22.08 08/30/2021 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 TINGLING Burning sensation Recently diagnosed with shingles Noticed rash Thursday. Seen at [facility] on Thursday. Started on Valtrex 1 g. Yesterday 2 g. Now TID. However, her main reason for coming in today is that her symptoms actually pre- date her going urgentcare. Describes: Burning in hands and feet, and internal organs. Notes she has a Hx of a Gadolinium allergy. Recently had an MRI completed by [facility] due to some feet symptoms. She did not have Gadolinium, but she did have allergic reaction to this in the past. She is wondering about deficiencies in vitamins that may be contributing to her burning symptoms. She feels hypersensitive. Everything on her body feels hypersensitive. MRI was December 12. Symptoms started 2 days later. She is certain she had no type of contrast at all. No IV was placed. She takes a pre-yasmani multi-vitamin and has added on a B12 and B1 Not taking Ferrous sulfate or vit C. But she does note she had iron deficiency anemia with her last . Observed: BP 103/74 (BP Location: Right Arm, BP Cuff Size: Small Adult/Large Pediatrics) Pulse 91 Wt 141 lb (64 kg) BMI 22.08 kg/m?? Physical Exam Constitutional: General: She is not in acute distress. Appearance: She is not ill-appearing, toxic-appearing or diaphoretic. HENT: Head: Normocephalic. Right Ear: Tympanic membrane and ear canal normal. Left Ear: Tympanic membrane and ear canal normal. Nose: No congestion or rhinorrhea. Mouth/Throat: Mouth: Mucous membranes are moist. Pharynx: Oropharynx is clear. Eyes: Conjunctiva/sclera: Conjunctivae normal. Cardiovascular: Rate and Rhythm: Normal rate and regular rhythm. Heart sounds: Normal heart sounds. Pulmonary: Effort: Pulmonary effort is normal. No respiratory distress. Breath sounds: Normal breath sounds. No stridor. No wheezing, rhonchi or rales. Abdominal: General: Bowel sounds are normal. Palpations: Abdomen is soft. Musculoskeletal: Cervical back: Neck supple. Skin: General: Skin is warm and dry. Comments: Shingles rash on left upper chest. Neurological: General: No focal deficit present. Mental Status: She is alert. Sensory: Sensation is intact. Deep Tendon Reflexes: Reflex Scores: Bicep reflexes are 3+ on the right side and 3+ on the left side. Psychiatric: Mood and Affect: Mood normal. Behavior: Behavior normal. Slight deficit in 2 point discrimination on feet b/l Assessment/Plan: ICD-10-CM 1. Burning pain R52 Complete Blood Count-No Diff Comp Metabolic Panel Iron Profile (Iron,TIBC,%Sat.(Calc)) Ferritin Vitamin B12 Only 2. Herpes zoster with other complication B02.8 Follow up with short piece handler as scheduled. Burning skin sensation may be a number of etiologies. B12 deficiency, Iron relation, Shingles, vs. Behavioral, vs other. Will check labs today. Continue Valtrex as advised. CBC normal. If all labs normal, we may consider an e-consult to neurology for additional guidance. Please see orders and patient instructions Rojelio Monroy MD I spent a total of 46 minutes on the day of the visit. documented in this encounter Plan of Treatment Upcoming Encounters Date Type Specialty Care Team Description 07/04/2022 Appointment Otolaryngology Opal Richardson MD [address] [facility] [address] [id number] (Wo rk) 07/22/2022 Appointment Endocrinology Luis Daniel Bradley MBBS [address] [facility] [address] [id number] documented as of this encounter Results (ABNORMAL) Vitamin B12 Only (01/01/2022 7:59 AM CDT) [facility] Method Time Signature Vitamin B12 1,177 (H) 213 - 816 01/01/2022 [facility] pg/mL 3:43 PM CDT [facility] Specimen Anatomical Collection Method / Collection Time Recei ching Time (Source) Location / Volume Laterality Blood Venipuncture / 01/01/2022 7:59 01/01/2022 7:59 Unknown AM CDT AM CDT Rojelio Monroy MD LAB_1 Performing Organization Address City/State/ZIP Code Phon e Number [facility] [address] [address] Ferritin (01/01/2022 7:59 AM CDT) athologist Signature Ferritin 12 9 - 204 01/01/2022 [facility] ng/mL 1:15 PM CDT C[facility]AL [facility] Specimen Anatomical Collection Method / Collection Time Recei ching Time (Source) Location / Volume Laterality Blood Venipuncture / 01/01/2022 7:59 01/01/2022 7:59 Unknown AM CDT AM CDT Rojelio Monroy MD LAB_1 Performing Organization Address [facility] Phon e Number [facility] [address] [address] Iron Profile (Iron,TIBC,%Sat.(Calc)) (01/01/2022 7:59 AM CDT) [facility] Method Time Signature Iron 75 50 - 170 01/01/2022 [facility] mcg/dL 1:00 PM CDT [facility] Transferrin 327 180 - 382 01/01/2022 [email or web address] mg/dL 1:00 PM CDT [facility] TIBC, 409 240 - 450 01/01/2022 [facility] Calculated mcg/dL 1:00 PM CDT [facility] % Saturation, 18 10 - 50 % 01/01/2022 [facility] Calculated 1:00 PM CDT [facility] Specimen Anatomical Collection Method / Collection Time Recei ching Time (Source) Location / Volume Laterality Blood Venipuncture / 01/01/2022 7:59 01/01/2022 7:59 Unknown AM CDT AM CDT Rojelio Monroy MD LAB_1 Performing Organization Address [facility] e Number [facility] [address] [address] (ABNORMAL) Comp Metabolic Panel (01/01/2022 7:59 AM CDT) [facility] Method Time Signature Sodium 135 (L) 136 - 145 01/01/2022 [email or web address] mmol/L 1:00 PM CDT [facility] Potassium 4.5 3.5 - 5.1 01/01/2022 [facility] mmol/L 1:00 PM CDT [facility] Chloride 105 98 - 109 01/01/2022 [facility] mmol/L 1:00 PM CDT [facility] CO2 22 20 - 29 01/01/2022 [facility] mmol/L 1:00 PM CDT C[facility] Anion Gap 8 7 - 16 01/01/2022 [facility] mmol/L 1:00 PM CDT [facility] Calcium 8.9 8.4 - 01/01/2022 [facility] 10.4 1:00 PM CDT [facility] mg/dL BUN 8 7 - 26 01/01/2022 [facility] mg/dL 1:00 PM CDT C[facility]AL [facility] Creatinine 0.58 0.55 - 01/01/2022 [facility] 1.02 1:00 PM CDT C[facility]AL [facility] mg/dL GFR, Estimated >60 >60 01/01/2022 [facility] mL/min/1. 1:00 PM CDT C[facility]AL [facility] 73m2 Alkaline 42 40 - 150 01/01/2022 [facility] Phosphatase U/L 1:00 PM CDT C[facility] AST (SGOT) 13 10 - 40 01/01/2022 [facility] U/L 1:00 PM CDT C[facility] ALT (SGPT) 10 0 - 55 01/01/2022 [facility] U/L 1:00 PM CDT C[facility]AL [facility] Bilirubin, 0.8 0.2 - 1.2 01/01/2022 [facility] Total mg/dL 1:00 PM CDT C[facility] Protein, Total 6.3 (L) 6.4 - 8.3 01/01/2022 [facility] g/dL 1:00 PM CDT C[facility]AL [facility] Albumin 3.2 (L) 3.5 - 5.0 01/01/2022 [facility] g/dL 1:00 PM CDT C[facility] Glucose 82 70 - 100 01/01/2022 [facility] mg/dL 1:00 PM CDT C[facility] Comment: The given reference range is fo r the fasting state. Non-fasting reference range for glucose is 70 - 180 mg/dL. Hours Fasting Unknown 01/01/2022 1:00 PM CDT [facility] Specimen Anatomical Collection Method / Collection Time Recei ching Time (Source) Location / Volume Laterality Blood Venipuncture / 01/01/2022 7:59 01/01/2022 7:59 Unknown AM CDT AM CDT Rojelio Monroy MD LAB_1 Performing Organization Address City/State/ZIP Code Phon e Number [facility] [address] [address] [facility] [address] [place] [address] Complete Blood Count-No Diff (01/01/2022 7:59 AM CDT) P athologist Signature WBC 6.4 3.5 - 10.5 01/01/2022 [facility] x10(9)/L 8:52 AM CDT LAB RBC 4.02 3.90 - 5.03 01/01/2022 [facility] x10(12)/L 8:52 AM CDT LAB Hemoglobin 12.1 12.0 - 15.5 01/01/2022 [facility] g/dL 8:52 AM CDT LAB HCT 36.3 34.9 - 44.5 01/01/2022 [facility] % 8:52 AM CDT LAB MCV 90.3 80.0 - 01/01/2022 [facility] 100.0 fL 8:52 AM CDT LAB MCH 30.1 27.6 - 33.3 01/01/2022 [facility] pg 8:52 AM CDT LAB MCHC 33.3 31.5 - 35.2 01/01/2022 [facility] g/dL 8:52 AM CDT LAB RDW 13.1 11.9 - 15.5 01/01/2022 [facility] % 8:52 AM CDT LAB Platelets 263 150 - 450 01/01/2022 [facility] x10(9)/L 8:52 AM CDT LAB Specimen Anatomical Collection Method / Collection Time Recei ching Time (Source) Location / Volume Laterality Blood Venipuncture / 01/01/2022 7:59 01/01/2022 7:59 Unknown AM CDT AM CDT Rojelio Monroy MD LAB_1 Performing Organization Address [facility] Code Phon e Number [facility] [address] [place] [phone] documented in this encounter Visit Diagnoses Diagnosis Burning pain - Primary Generalized pain Herpes zoster with other complication documented in this encounter Care Teams Government Instructor Relationship Specialty Start Date End Date No Primary/Referring, Phy PCP - General 12/13/19 documented as of this encounter
--- OUTSIDE RECORDS SUMMARY | 2022-06-23 17:53 | XMS_ITS | Encounter Summary ---
:1990 Author Organization [facility] Address [address], [place] [address] Care Team Providers Name Role Phone No Primary/Referring, Phy Primary Care Provider Unavailable Reason for Visit Procedure/Equipment (Routine) - New Request Specialty Diagnoses / Procedures Referred By Contact Refer red To Contact Diagnoses Pes planus of both feet Metatarsalgia of both feet Matteo Lawson, DPM [address] [place], [place] [address] Referral ID Status Reason Start Date Expiration Date Visits V isits Requested Authorized [id number] New Request 10/10/2021 01/09/2023 1 1 Encounter Details Date Type Department Care Team Description 11/05/2021 Office Visit Specialty Center [address] Bing Benson, [facility] Pro[facility] [address] [facility] [address] [place] [phone] Social History Tobacco Use Types Packs/Day Years Used Date Smoking Tobacco: Never Smokeless Tobacco: Never Alcohol Use Standard Drinks/Week Comments Not Currently 0 (1 standard drink = 0.6 oz pure alcoho l) Sex Assigned at Date Recorded Not on file documented as of this encounter Progress Notes Mellisa Benson [facility] - 11/05/2021 2:00 PM CDT Patient Name: Destiney Cassidy : 1990 Date of Visit: 11/05/2021 Orthotics - L.E. - FO - Evaluation Diagnosis: Pes planus of both feet [M21.41, M21.42] ??- Primary Metatarsalgia of both feet [M77.41, M77.42] ++ Pt seen today for FO evaluation. Pt has been having bilateral foot pain for over 2 months. Is worse on the right vs left side. Pt stated that the pain is under her 2nd toe and into her arch. Pt has tried new shoes and OTS insoles with no change in her symptoms. Findings: Longitudinal Arch: Low ROM: Good. Skin is intact, no muscle weakness noted Gait: Pronated Callousing: {no Product(s) Recommendation: Type of Foot Orthotic: Semi Rigid 3mm mpj co poly base, full length mid and top cover. Bilateral metpads, bilateral cutouts for 2nd met heads +++ The patient would benefit from custom orthotics. The goal of this would be to help correct the abnormal biomechanics of the foot to allow proper functioning and provide functional support while offloading the 2nd metatarsal head and ball of foot. The custom orthotic would take weight off of the forefoot and support the medial longitudinal arch and prevent excessive subtalar pronation. Pt in agreement with this plan. Impressions were taken today without issue. All questions answered at this time. Affected Limbs: {bilateral Patient was educated on proper footwear: {yes Plan of Care: 2 weeks for fitting documented in this encounter Plan of Treatment Upcoming Encounters Date Type Specialty Care Team Description 07/04/2022 Appointment Otolaryngology Opal Richardson MD [address] [facility] N [phone] (Wo rk) 07/22/2022 Appointment Endocrinology Luis Daniel Bradley [facility] [address] [facility] N [phone] Scheduled Referrals Name Type Priority Associated Diagnoses Order S chedule Orthotics Order Referral Routine Pes planus of kennedy th feet Ordered: 10/10/2021 Metatarsalgia of both feet documented as of this encounter Visit Diagnoses Not on filedocumented in this encounter Care Teams Electric Tripper Machine Operator Relationship Specialty Start Date End Date No Primary/Referring, Phy PCP - General 12/13/19 documented as of this encounter
--- OUTSIDE RECORDS SUMMARY | 2022-06-23 17:53 | XMS_ITS | Encounter Summary ---
:1990 Author Organization [facility] Address [address] [place] [address] Care Team Providers Name Role Phone No Primary/Referring, Phy Primary Care Provider Unavailable Encounter Details Date Type Department Care Team Description 10/04/2021 Notes/Orders [facility] Andrews Aguilar Contact with and [address] MD (suspected) exposure [address] to covid-19 JESÚS Albarran [address] [place], [place] [phone] [id number] Social History Tobacco Use Types Packs/Day Years Used Date Smoking Tobacco: Never Smokeless Tobacco: Never Alcohol Use Standard Drinks/Week Comments Not Currently 0 (1 standard drink = 0.6 oz pure alcoho l) Sex Assigned at Date Recorded Not on file documented as of this encounter Plan of Treatment Upcoming Encounters Date Type Specialty Care Team Description 07/04/2022 Appointment Otolaryngology Opal Richardson MD [address] [facility] N [phone] (Wo rk) 07/22/2022 Appointment Endocrinology Luis Daniel Bradley [facility] [address] [facility] N [phone] documented as of this encounter Results Symptomatic - 2019 Novel Coronavirus (COVID-19) (10/04/2021 11:50 AM CDT) [facility] Method Time Signature COVID-19 Not Not 10/05/2021 [facility] Interpretation Detected Detected 1:12 AM [facility] CDT Source Nares, left [facility]/05[facility]2021 [facility] and right 1:12 AM [facility] CDT Specimen Anatomical Collection Method Collection Time Receive d Time (Source) Location / / Volume Laterality Swab (Source ENTIRE ANTERIOR Non-blood 10/04/2021 11:50 10/05/19 22 Required) NARIS / Unknown Collection / AM CDT 11:50 AM CDT Unknown Narrative [facility] - 10/05/2021 1:12 AM CDT Test performed by Bus And Rail Operator Mediated Amplification. TMA has been shown to be equivalent to commercial real-time PCR t ests. This test has been authorized by the FDA under Emergency Use Authorization (E UA) for use by authorized laboratories. Andrews Aguilar MD LAB_1 Performing Organization Address City/State/ZIP Code Phon e Number [facility] [address] [address] documented in this encounter Visit Diagnoses Diagnosis Contact with and (suspected) exposure to covid-19 documented in this encounter Care Teams Apprentice Funeral Director Relationship Specialty Start Date End Date No Primary/Referring, Phy PCP - General 12/13/19 documented as of this encounter
--- OUTSIDE RECORDS SUMMARY | 2022-06-23 17:53 | XMS_ITS | Encounter Summary ---
:1990 Author Organization [facility] Address [address] [place] [address] Care Team Providers Name Role Phone No Primary/Referring, Phy Primary Care Provider Unavailable Reason for Visit Reason Comments HIP PAIN Encounter Details Date Type Department Care Team Description 01/22/2022 Therapy [facility], Katty Arreaga PT Hip pain (Primary Dx); Physical Therapy [address] [facility] Instability of pelvis or thigh joint; [address] [place] [address] 19 weeks gestation of [place], [place] [address] [phone] Social History Tobacco Use Types Packs/Day Years Used Date Smoking Tobacco: Never Smokeless Tobacco: Never Alcohol Use Standard Drinks/Week Comments Not Currently 0 (1 standard drink = 0.6 oz pure alcoho l) Sex Assigned at Date Recorded Not on file documented as of this encounter Progress Notes Katty Arreaga, PT - 01/22/2022 12:00 PM CDT [facility] [place] [facility] Daily Note Visit Number: [id number] BCBS: Other SOC: 08/29/2021 Referring Provider: Justin [...] Pt planning to conceive upcoming prn. 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 SUBJECTIVE: Functional Status/Patient Report: 19 weeks and increase discomfort and concerns over L lateral hip. Pt with increase fear as normal things that I have used in past are not working. Saw Chiro and did not find relief and suggested $3000 plan to continue. OBJECTIVE: Today's Findings: Iliosacral alignment: L Anterior T/L junction restrictions Pain with any resisted L hip abduction Tenderness to L glut TREATMENT TODAY: Manual Therapy (74168) x 15 min: Utilized for the purpose of improving mobility and blood flow alongwith pain reduction principles. Pre and Post assessment time included along with time for the explanations and role of manual therapy = facilitation to recovery vs fix. R SL for L/P Mobs R SL for L MET L L/S passive neuroglides - 20 degree SLR increase post Brief STM to Glut Med in R SL to L Therapeutic Exercise (CPT 51753) x 10 Min: Utilized for the purpose of improving strength, ROM, endurance, and/or flexibility. Time included education re: principles of load and capacity, the role of inflammation in pain/exercise, the role of endogenous chemicals in aerobic exercises along with specifics regarding the how and why to below exercises. 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 Pt broading care to include musculoskeletal care during toaddress LB/pelvic girdle. Pt arrives with increase L sided glut med tendonopathy presentation > Lsided pelvic girdle pain. Pt with strong beliefs and noted high anxiety re: medical care as multipleprevious negative experiences. Pt thoughtfully utilizing strategies re: [...] consistent with nociceptive pain mechanism as primary belly dump driver inpain experience. Pain is localized to [...] tasks with ease in 4 (including child life specialist demands with increase ease) weeks. Ambulation: Ascend/descend stairs independently with reciprocal pattern with minimal to no symptoms and improved lower extremity alignment in 4 weeks. Sports/Leisure: Return to prior level of leisure or recreational activities, including cardio x 30 min and weight training without an increase in symptoms or limitations in 6 weeks. Therapist: Katty Arreaga, PT 12:10 PM 01/22/2022 documented in this encounter Plan of Treatment Upcoming Encounters Date Type Specialty Care Team Description 07/04/2022 Appointment Otolaryngology Opal Richardson MD [address] N [phone] (Wo rk) 07/22/2022 Appointment Endocrinology Luis Daniel Bradley MBBS [address] N [phone] documented as of this encounter Visit Diagnoses Diagnosis Hip pain - Primary Pain in joint, pelvic region and thigh Instability of pelvis or thigh joint Other joint derangement, not elsewhere c lassified, pelvic region and thigh 19 weeks gestation of state, incidental documented in this encounter Care Teams Fish Drier Relationship Specialty Start Date End Date No Primary/Referring, Phy PCP - General 12/13/19 documented as of this encounter
--- OUTSIDE RECORDS SUMMARY | 2022-06-23 17:53 | XMS_ITS | Encounter Summary ---
:1990 Author [facility] Address [address] [place] [address] Care Team Providers Name Role Phone No Primary/Referring, Phy Primary Care Provider Unavailable Encounter Details Date Type Department Care Team Description 08/19/2021 Lab Visit [place] Contact with and [address] (suspected) [place] [address] covid-19 Social History Tobacco Use Types Packs/Day Years Used Date Smoking Tobacco: Never Smokeless Tobacco: Never Alcohol Use Standard Drinks/Week Comments Not Currently 0 (1 standard drink = 0.6 oz pure alcoho l) Sex Assigned at Date Recorded Not on file documented as of this encounter Plan of Treatment Upcoming Encounters Date Type Specialty Care Team Description 07/04/2022 Appointment Otolaryngology Opal Richardson MD [address] [facility] N [address] (Wo rk) 07/22/2022 Appointment Endocrinology Luis Daniel Bradley MBBS [address] [facility] [address] documented as of this encounter Procedures Procedure Name Priority Date/Time Associated Comments Diagnosis 2019 NOVEL Routine 08/19/2021 3:45 PM Contact with and Resul ts for this CORONAVIRUS RECEPTION (suspected) procedure are i n exposure to the results covid-19 section. documented in this encounter Results Symptomatic - 2019 Novel Coronavirus (COVID-19) (08/19/2021 3:45 PM RECEPTION) [facility] Method Time Signature COVID-19 Not Not 08/20/2021 [facility] Interpretation Detected Detected 9:00 AM CENTRAL LAB RECEPTION Source Nares, left 08/20/2021 [facility] and right 9:00 AM CENTRAL LAB RECEPTION Specimen Anatomical Collection Method Collection Time Receive d Time (Source) Location / / Volume Laterality Swab (Source ENTIRE ANTERIOR Non-blood 08/19/2021 3:45 PM 2021 3:46 Required) NARIS / Unknown Collection / RECEPTION PM RECEPTION Unknown Narrative [facility] - 08/20/2021 9:00 AM RECEPTION Tested by Polymerase Chain Reaction (PCR ), Ribbon Cleaner-mediated amplification (TMA), or another nucleic acid amplifica tion test (NAAT). Andrews Aguilar MD LAB_1 Performing Organization Address City/State/ZIP Code Phon e Number [facility] [address] [address] documented in this encounter Visit Diagnoses Diagnosis Contact with and (suspected) exposure to covid-19 documented in this encounter Additional Health Concerns Infection Onset Date Last Indicated Resolved Time R/O COVID19 08/19/2021 08/19/2021 08/20/2021 9:00 AM RECEPTION documented as of this encounter Care Teams Treatment Counselor Relationship Specialty Start Date End Date No Primary/Referring, Phy PCP - General 12/13/19 documented as of this encounter
--- OUTSIDE RECORDS SUMMARY | 2022-06-23 17:53 | XMS_ITS | Encounter Summary ---
:1990 [facility] Address [address] [place] [address] Care Team Providers Name Role Phone No Primary/Referring, Phy Primary Care Provider Unavailable Reason for Visit Reason Comments HIP PAIN Encounter Details Date Type Department Care Team Description 09/12/2021 Therapy [facility], Katty Arreaga, PT Iliopsoas bursitis of left hip (Primary Dx); Physical Therapy [address] [facility] Right knee pain, unspecified chronicity [address] [place] [address] [place], [place] [address] [phone] Social History Tobacco Use Types Packs/Day Years Used Date Smoking Tobacco: Never Smokeless Tobacco: Never Alcohol Use Standard Drinks/Week Comments Not Currently 0 (1 standard drink = 0.6 oz pure alcoho l) Sex Assigned at Date Recorded Not on file documented as of this encounter Progress Notes Katty Arreaga, PT - 09/12/2021 1:45 PM CST [facility] [place] [facility] Daily Note Visit Number: 2 BCBS: Other Initial Certification Period: 08/29/2021 to [...] Pt planning to conceive upcoming prn. 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 Previous history during which resolved but always left the knee a bit weak. Pt was seen at [facility] with dx of patellar femoral pain. OBJECTIVE: Today's Findings: R Anterior Innominate Rotation L Psoas Tenderness R Strong Patellar Lateral tracking with + Q angle R knee Quad inhibition -absent swelling B Hip Strength reduction in all planes 4-/5 Globally TREATMENT TODAY: Manual Therapy (12950) x 8 Min: Utilized for the purpose of improving mobility and blood flow along with pain reduction principles. Pre and Post assessment time included along with time for the explanations and role of manual therapy = facilitation to recovery vs fix. L SL for R Anterior Innominate MET Supine for Brief L Psoas release Therapeutic Exercise (CPT 33210) x 20 Min: Utilized for the purpose [...] knee pain onset with hold on Bike below: Recommendations for continuation with UE program 04/28/10 for Cardio = bike/ellipitical/TM B SLR x 10 B SLR with ER or SL hip adduction for VMO activation x 10 Clam shell B x 10 x 10 holds Self Care/Home Management Training (83382) x 10 Min: Training in activities of daily living is medically reasonable and necessary and expected to restore or improve the functioning of the patient. The patient has the capacity to learn from the instructions and the therapist was actively lecturing, demonstrating and providing literature in order to assist with patient appropriately and safely performing task. Brace suggestion and Internet demo of brand provided Avoidance of deep knee flexion currently Limit stairs as able Reassurance re: diagnosis and recovery Timed Code Treatment Minutes: 30 Total Treatment Minutes: 30 ASSESSMENT: Pt arrives today with new s/s of R knee pain with report of instant pain following lifting demand with son on 08/28/21. Pt seen in [facility] and dx with PF and assessment on this date consistent with diagnosis. Improved L hip/LQ sensitivity and increased tolerance to gym program prior to knee episode. Hip and core weakness contributing factor in knee pain and pt would benefit from further skilledcare to address. 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 Pain is localized to [...] tasks with ease in 4 (including children's literature professor demands with increase ease) weeks. Ambulation: Ascend/descend stairs independently with reciprocal pattern with minimal to no symptoms and improved lower extremity alignment in 4 weeks. Sports/Leisure: Return to prior level of leisure or recreational activities, including cardio x 30 min and weight training without an increase in symptoms or limitations in 6 weeks. Therapist: Katty Arreaga, PT 2:07 PM 09/12/2021 AGE MANAGER documented in this encounter Plan of Treatment Upcoming Encounters Date Type Specialty Care Team Description 07/04/2022 Appointment Otolaryngology Opal Richardson MD [address] [id number] (Wo rk) 07/22/2022 Appointment Endocrinology Luis Daniel Bradley MBBS [address] [id number] documented as of this encounter Visit Diagnoses Diagnosis Iliopsoas bursitis of left hip - Primary Right knee pain, unspecified chronicity documented in this encounter Care Teams Vulcanizing Machine Operator Relationship Specialty Start Date End Date No Primary/Referring, Phy PCP - General 12/13/19 documented as of this encounter
--- OUTSIDE RECORDS SUMMARY | 2022-06-23 17:53 | XMS_ITS | Encounter Summary ---
:1990 Author Organization [facility] Address [address] [place] [address] Care Team Providers Name Role Phone No Primary/Referring, Phy Primary Care Provider Unavailable Reason for Visit Reason Comments HIP PAIN Therapies (Routine) - New Request Specialty Diagnoses / Procedures Referred By Contact Refer red To Contact Physical Therapy Diagnoses Iliopsoas bursitis of left hip Justin Ramírez Stewart, Br Physical Therapy [address] [facility] [address] [address] [place] [address] Referral ID Status Reason Start Date Expiration Date Visits V isits Requested Authorized [id number] New Request 08/12/2021 08/12/[phone] Encounter Details Date Type Department Care Team Description 02/05/2022 Therapy [facility], Katty Arreaga, PT Hip pain (Primary Dx); Physical Therapy [address] [facility] [address] Instability of pelvis or thigh joint; [address] [place] [address] 20 weeks gestation of [place], [place] [address] [phone] Social History Tobacco Use Types Packs/Day Years Used Date Smoking Tobacco: Never Smokeless Tobacco: Never Alcohol Use Standard Drinks/Week Comments Not Currently 0 (1 standard drink = 0.6 oz pure alcoho l) Sex Assigned at Date Recorded Not on file documented as of this encounter Progress Notes Katty Arreaga, PT - 02/05/2022 9:00 AM CDT [facility] Physical Therapy Daily Note Visit Number: 11 BCBS: Other SOC: 08/29/2021 Referring Provider: Justin Ramírez Updated orders for related care = [facility] - Johann Ramsay. Diagnosis: Iliopsoas L hip bursitis Orders: Evaluate [...] Pt planning to conceive upcoming prn. 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 SUBJECTIVE: Functional Status/Patient Report: 20+ weeks OB visit and everything look good for baby. L posterior lateral hip pain remained intense for 2 weeks - remains sensitive but less intense. SI belt helpfulbut difficult to utilize with work and child welfare assistant demands. S/s of sciatica also involved on L. Lifting Jayson (27#) is difficult. OBJECTIVE: Today's Findings: Iliosacral alignment: L Anterior T/L junction restrictions Pain with any resisted L hip abduction - mild improve,ent Tenderness to L glut + Thigh Thurst L SLR 55 L vs 65 R TREATMENT TODAY: Manual Therapy (20622) x 8 min: Utilized for the purpose of improving mobility and blood flow along with pain reduction principles. Pre and Post assessment time included along with time for the explanations and role of manual therapy = facilitation to recovery vs fix. R SL for L/P Mobs R SL for L MET Therapeutic Exercise (CPT 00267) x 25 Min: Utilized for the purpose of improving strength, ROM, endurance, and/or flexibility. Time included education re: principles of load and capacity, the role of inflammation in pain/exercise, the role of endogenous chemicals in aerobic exercises along with specifics regarding the how and why to below exercises. Access Code: [email or web address] - emailed on 02/05/22 Exercises Seated Hip Adduction Isometrics with Ball - 1 x daily - 7 x weekly - 3-5 reps Seated Roll Ins for Pelvic Floor Activation - 1 x daily - 7 x weekly - 3-5 reps Wall VERSION - NO WEIGHT - 1 x daily - 7 x weekly - 3-5 reps Knee Pump - 1 x daily - 7 x weekly - 5-10 reps Ankle Pumps - 1 x daily - 7 x weekly - 5-10 reps Sidelying Thoracic and Shoulder Rotation - 1 x daily - 7 x weekly - 5-10 reps Rocks and Wiggles - 1 x daily - 7 x weekly - 5-10 reps Cat Cow to Child's Pose - 1 x daily - 7 x weekly - 5-10 reps Self Care/Home Management Training (45444) x < 5 Min: Training in activities of daily living is medically reasonable and necessary and expected to restore or improve the functioning of the patient. The patient has the capacity to learn from the instructions and the therapist was actively lecturing,demonstrating and providing literature in order to assist with patient appropriately and safely performing task. 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 Pt broading care to include musculoskeletal care during to address LB/pelvic girdle. 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 Pain is localized to [...] with ease in 4 (including child welfare assistant demands with increase ease) weeks. Ambulation: Ascend/descend stairs independently with reciprocal pattern with minimal to no symptoms and improved lower extremity alignment in 4 weeks. Sports/Leisure: Return to prior level of leisure or recreational activities, including cardio x 30 min and weight training without an increase in symptoms or limitations in 6 weeks. Therapist: Katty Arreaga, ROGELIO 9:05 AM 02/05/2022 documented in this encounter Plan of Treatment Upcoming Encounters Date Type Specialty Care Team Description 07/04/2022 Appointment Otolaryngology Opal Richardson MD [address] [id number] (Wo rk) 07/22/2022 Appointment Endocrinology Luis Daniel Bradley MBBS [address] N [id number] documented as of this encounter Visit Diagnoses Diagnosis Hip pain - Primary Pain in joint, pelvic region and thigh Instability of pelvis or thigh joint Other joint derangement, not elsewhere c lassified, pelvic region and thigh 20 weeks gestation of state, incidental documented in this encounter Care Teams Drafter Electrical Relationship Specialty Start Date End Date No Primary/Referring, Phy PCP - General 12/13/19 documented as of this encounter
--- OUTSIDE RECORDS SUMMARY | 2022-06-23 17:53 | XMS_ITS | Encounter Summary ---
:1990 Author Organization [facility] Address [address], [place] [address] Care Team Providers Name Role Phone No Primary/Referring, Juanisy Primary Care Provider Unavailable Reason for Referral Procedure/Equipment (Routine) - New Request Specialty Diagnoses / Procedures Referred By Contact Refer red To Contact Diagnoses Pes planus of both feet Metatarsalgia of both feet Matteo Lawson DPM [address] [place], [place] [address] Referral ID Status Reason Start Date Expiration Date Visits V isits Requested Authorized [id number] New Request 10/10/2021 01/09/2023 1 1 Scheduling Instructions Your provider has recommended an appoint ment with [facility]. You may call [phone] t o schedule your appointment. We suggest you call your health insurance company about your coverage and benefits for this appointment. Reason for Visit Reason Comments Foot Pain Orthotics, right foot Encounter Details Date Type Department Care Team Description 10/10/2021 Office Visit Matteo Oconnor, Pes planus of both feet (Primary Dx); [place] [address] [address] Metatarsalgia of both feet [facility]iatric [facility] [address] [address] [place] [address] [phone] Social History Tobacco Use Types Packs/Day Years Used Date Smoking Tobacco: Never Smokeless Tobacco: Never Alcohol Use Standard Drinks/Week Comments Not Currently 0 (1 standard drink = 0.6 oz pure alcoho l) Sex Assigned at Date Recorded Not on file documented as of this encounter Patient Instructions Patient InstructionsMatteo Lawson DPM - 10/10/2021 2:30 PM CDT [facility] [employer] [facility] [employer] Vito shoes Haflinger slippers at [facility] documented in this encounter Progress Notes Matteo Lawson DPM - 10/10/2021 2:30 PM CDT [facility] Date of Service: 10/10/21 CSN: [id number] CC: right foot pain, new orthotics PATIENT HISTORY: Destiney Cassidy is a 30 y.o. old female being seen today for evaluation of right foot pain This has been going on for one month. She has been doing more walking. She has tried superfeet without relief. Pain can be 7/10 with walking. She does not have current custom orthotics, but requesting a new pair. REVIEW OF SYSTEMS: Positive per HPI above. Ten point review of systems is otherwise negative. PAST MEDICAL HISTORY: No past medical history on file. PAST SOCIAL HISTORY: Social History Socioeconomic History ??? Marital status: Single Spouse name: Not on file ??? Number of children: Not on file ??? Years of education: Not on file ??? Highest education level: Not on file Occupational History ??? Not on file Tobacco Use ??? Smoking status: Never Smoker ??? Smokeless tobacco: Never Used Vaping Use ??? Vaping Use: Never used Substance and Sexual Activity ??? Alcohol use: Not Currently ??? Drug use: Not on file ??? Sexual activity: Not on file Other Topics Concern ??? Not on file Social History Narrative ??? Not on file Social Determinants of Health Financial Resource Strain: Not on file Food Insecurity: Not on file Transportation Needs: Not on file Physical Activity: Not on file Intimate Partner Violence: Not on file Housing Stability: Not on file FAMILY HISTORY: Family History Problem Relation Age of Onset ??? Other (Raynauds) Father ALLERGIES: Allergies Allergen Reactions ??? Cefzil [Cefprozil] Hives Hives, swelling of hands/feet ??? Penicillins Hives Hives, swelling of hands/feet ??? Cephalosporins ??? Ciprofloxacin ??? Ciprofloxacin Nerve pain ??? Penicillins PN: rash ??? Propylthiouracil Rash ??? Metoclopramide Anxiety and Other, see comments Restlessness, squirming Restlessness, squirming EXAM: General appearance: Patient is alert and fully cooperative with history & exam. No sign of distress is noted during the visit. Musculoskeletal: Patient is ambulatory without assistive device or brace. No gross ankle deformity noted. No foot or ankle joint effusion is noted. Moderate decrease medial arch height on WB bilateral.Mild pain with palpation metatarsal heads right foot Vascular: DP and PT pulses are intact and regular. No significant edema or varicosities noted. CFT and skin temperature is normal. Neurologic: Lower extremity sensation is intact to light touch. No evidence of weakness or contracture. No evidence of neuropathy. Dermatologic: Skin is intact without significant lesions, rash or abrasion. No paronychia or evidence of soft tissue infection is noted. Lymph: No evidence of lymphadenopathy or lymphedema is noted. Respiratory: Breathing is regular and unlabored while sitting. HEENT: Hearing is intact to spoken word. No evidence of visual impairment that would impact self care or ambulation. Psychiatric: Affect is pleasant and appropriate. No unusual anxiety or depression noted. Patient appears motivated to improve health and follow direction. Imaging: X-ray IMPRESSION: 1. Pes planus bilateral 2. Metatarsalgia bilateral PLAN: Patient seen and evaluated Discussed their condition and available treatment options Rx custom orthotics with metatarsal pads Supportive running shoes as well RTC PRN Patient agrees to plan Matteo Lawson DPM, FACFAS documented in this encounter Plan of Treatment Upcoming Encounters Date Type Specialty Care Team Description 07/04/2022 Appointment Otolaryngology Opal Richardson MD [address] [address] (Wo rk) 07/22/2022 Appointment Endocrinology Luis Daniel Bradley MBBS [address] [address] Scheduled Referrals Name Type Priority Associated Diagnoses Order S chedule Orthotics Order Referral Routine Pes planus of kennedy th feet Ordered: 10/10/2021 Metatarsalgia of both feet documented as of this encounter Visit Diagnoses Diagnosis Pes planus of both feet - Primary Metatarsalgia of both feet documented in this encounter Care Teams Tap Puller Relationship Specialty Start Date End Date No Primary/Referring, Phy PCP - General 12/13/19 documented as of this encounter
--- OUTSIDE RECORDS SUMMARY | 2022-06-23 17:53 | XMS_ITS | Encounter Summary ---
:1990 Author Organization [facility] Address [address] [place] [address] Care Team Providers Name Role Phone No Primary/Referring, Phy Primary Care Provider Unavailable Encounter Details Date Type Department Care Team Description 08/19/2021 Notes/Orders [facility] [address] with and Tim Henao MD (suspected) exposure [address] [facility] [address] [place] [address] [phone] Social History Tobacco Use Types Packs/Day Years Used Date Smoking Tobacco: Never Smokeless Tobacco: Never Alcohol Use Standard Drinks/Week Comments Not Currently 0 (1 standard drink = 0.6 oz pure alcoho l) Sex Assigned at Date Recorded Not on file documented as of this encounter Plan of Treatment Upcoming Encounters Date Type Specialty Care Team Description 07/04/2022 Appointment Otolaryngology Opal Richardson MD [address] [facility] [address] N [phone] (Wo rk) 07/22/2022 Appointment Endocrinology Luis Daniel Bradley MBBS [address] [facility] [address] N [phone] documented as of this encounter Results Symptomatic - 2019 Novel Coronavirus (COVID-19) (08/19/2021 3:45 PM LUMBER MATERIAL HANDLER) Patholo gist Method Time Signature COVID-19 Not Not 08/20/2021 [facility] Interpretation Detected Detected 9:00 AM CENTRAL LAB LUMBER MATERIAL HANDLER Source Nares, left [facility]20[facility]20[facility] and right 9:00 AM CENTRAL LAB LUMBER MATERIAL HANDLER Specimen Anatomical Collection Method Collection Time Receive d Time (Source) Location / / Volume Laterality Swab (Source ENTIRE ANTERIOR Non-blood 08/19/2021 3:45 PM 2021 3:46 Required) NARIS / Unknown Collection / LUMBER MATERIAL HANDLER PM LUMBER MATERIAL HANDLER Unknown Narrative [facility] - 08/20/2021 9:00 AM LUMBER MATERIAL HANDLER Tested by Polymerase Chain Reaction (PCR ), Starting Sheet Tank Operator-mediated amplification (TMA), or another nucleic acid amplifica tion test (NAAT). Andrews Aguilar MD LAB_1 Performing Organization Address City/State/ZIP Code Phon e Number [facility] [address] [phone] documented in this encounter Visit Diagnoses Diagnosis Contact with and (suspected) exposure to covid-19 documented in this encounter Care Teams Staff Rn Relationship Specialty Start Date End Date No Primary/Referring, Phy PCP - General 12/13/19 documented as of this encounter
--- OUTSIDE RECORDS SUMMARY | 2022-06-23 17:53 | XMS_ITS | Encounter Summary ---
:1990 Author Organization [facility] Address [address] [place] [address] Care Team Providers Name Role Phone No Primary/Referring, Phy Primary Care Provider Unavailable Reason for Referral Consult/Transfer Care (Routine) - New Request Specialty Diagnoses / Procedures Referred By Contact Refer red To Contact Diagnoses [place] [address] [place], [place] [address] Referral ID Status Reason Start Date Expiration Date Visits V isits Requested Authorized [id number] New Request 01/14/2022 04/15/2023 1 1 Scheduling Instructions Your provider has recommended an appoint ment with Rebecca Ortiz. You can quickly make your appointment online at UpMo/schedule. You can also call [phone] for help scheduling yo ur appointment. We suggest you call your health insurance company about your cove rage and benefits for this appointment. Reason for Visit Reason Wilfredo PITTMAN Encounter Details Date Type Department Care Team Description 01/08/2022 Telephone [facility] Rojelio Monroy MD [place] [address] [facility] [address] [place], [place] [address] [place] [address] (Wo rk) Social History Tobacco Use Types Packs/Day Years Used Date Smoking Tobacco: Never Smokeless Tobacco: Never Alcohol Use Standard Drinks/Week Comments Not Currently 0 (1 standard drink = 0.6 oz pure alcoho l) Sex Assigned at Date Recorded Not on file documented as of this encounter Nursing Notes Rojelio Monroy MD - 01/14/2022 3:03 PM CDT done Randee Delgado LPN - 01/14/2022 1:19 PM CDT PN Referral pended. Pt aware order has been signed. Randee Shaw LPN 01/14/22 1:19 PM Rojelio Monroy MD - 01/14/2022 12:32 PM CDT Orders all signed Randee Delgado LPN - 01/08/2022 10:27 AM CDT Per RN ok to wait for Dr. Monroy's return 01/14 since pt's consult is scheduled for 01/17/22 Randee Shaw LPN 01/08/22 10:28 AM Kelly Reid RN - 01/08/2022 8:26 AM CDT Spoke with pt who states that the rash has gone away, and she is still having the burning sensation of her skin. She would like a referral to neurology. She has an appointment scheduled 01/17/22. Pt states that she did not consent to a e-consult, and that she does not feel that she should be billed for it. Pt would like this brought to the attention of the general accounting manager, and would like to be contacted. Pt was also given the number to Estimated Cost of Care. Routing to Dr. Monroy to place neurology referral, and to Kelly Bass CDS to follow up with pt. Kelly Reid RN 01/08/2022, 8:34 AM Kelly Reid RN - 01/08/2022 8:23 AM CDT ----- Message from Rojelio Monroy MD sent at 01/07/2022 4:53 PM CDT ----- ----- Message ----- From: Diaz Clifford MD Sent: 01/07/2022 12:45 PM CDT To: Rojelio Monroy MD MRI would not be expected to cause. Would try shingles based on standard of care. Best, MHR ----- Message ----- From: Rojelio Monroy MD Sent: 01/05/2022 8:56 PM CDT To: [facility] I am requesting an E-Consult with you for my patient, Destiney Cassidy, who is a 31 y.o. female. My clinical question/s: Burning sensation of skin after MRI. Preceding shingles, not near the shingles rash on chest Note: If your recommendations are time sensitive, please find my information on: PSearch documented in this encounter Plan of Treatment Upcoming Encounters Date Type Specialty Care Team Description 07/04/2022 Appointment Otolaryngology Opal Richardson MD [address] [place] [place] [address] [id number] (Wo rk) 07/22/2022 Appointment Endocrinology Luis Daniel Bradley MBBS [address] [facility] [place] [address] [id number] Scheduled Referrals Name Type Priority Associated Diagnoses Order S chedule Neurology Referral Routine Burning sensation of Ordered : 01/14/2022 Consult-Adults skin documented as of this encounter Visit Diagnoses Diagnosis Burning sensation of skin - Primary documented in this encounter Care Teams Hose Stripper Relationship Specialty Start Date End Date No Primary/Referring, Phy PCP - General 12/13/19 documented as of this encounter
--- OUTSIDE RECORDS SUMMARY | 2022-06-23 17:53 | XMS_ITS | Encounter Summary ---
:1990 [facility] Address [address] [place] [address] Care Team Providers Name Role Phone No Primary/Referring, Phy Primary Care Provider Unavailable Reason for Visit Reason Comments HIP PAIN Encounter Details Date Type Department Care Team Description 08/29/2021 Therapy [facility], Katty Arreaga, PT Iliopsoas bursitis of Physical Therapy [address] [facility] left hip (Primary Dx) [address] [place] [address] [place], [place] [address] [phone] Social History Tobacco Use Types Packs/Day Years Used Date Smoking Tobacco: Never Smokeless Tobacco: Never Alcohol Use Standard Drinks/Week Comments Not Currently 0 (1 standard drink = 0.6 oz pure alcoho l) Sex Assigned at Date Recorded Not on file documented as of this encounter Progress Notes Katty Arreaga, PT - 08/29/2021 10:30 AM CST Physical Therapy Hip Evaluation/Plan of Care Visit Number: 1 BCBS: Other Initial Certification Period: 08/29/2021 to [...] Pt planning to conceive upcoming prn. 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 Past Medical History: See EMR for details regarding past medical history, medications and drug allergies. History pertinent to therapy includes See Above. Review of Systems: Completed No past medical history on file. No past surgical history on file. OBJECTIVE: General: Mood, orientation, behavior were appropriate. Patient was alert and oriented. Gait Observation/Inspection: Mild reduction to L hip extension in gait. L hip swing limited ROM: L Hip Extension = soft tissue and nerve tension > joint restriction Joint mobility: SI joint/pelvis: WNL Flexibility: Hip flexors: + Restriction L vs R Lumbar/SI Screen: + Neurotension B - spine surgical history and high fear re: spine Neurological Screen: Not performed Strength: Hip flexion 4-/5 L Hip flexion 4/5 R Hip ER 4-/5 B Hip abduction 4-/5 L and 4/5 R Palpation: L Psoas restriction and tenderness. mobility WNL's but pt with pain and tenderness report to L aspect of scar Proprioception: Single leg stance: W/o Difficulties - mild glut weakness noted L Functional Tests: Hesitant to perform deep squat TREATMENT TODAY: Physical Therapy Evaluation (CPT 23823): An evaluation was performed. The patient was determined to have moderate complexity based on history, examination, clinical presentation of the patient and the PT's clinical decision making. The patient was educated on the condition, planned therapy intervention and the expectations from treatment. Goals were a collaborative effort of the therapist and patient. Manual Therapy (64324) x 10 Min: Utilized for the purpose of improving mobility and blood flow alongwith pain reduction principles. Pre and Post assessment time included along with time for the explanations and role of manual therapy = facilitation to recovery vs fix. mobility - reminders for HEP with focus on de-sensitization and safety Brief L Psoas release with gentle pressure and Hip IR/ER oscillation to assist with hip flexed over PT's knee Therapeutic Exercise (CPT 16122) x 15 Min: Utilized for the purpose of improving strength, ROM, endurance, and/or flexibility. Time included education re: principles of load and capacity, the role of inflammation in pain/exercise, the role of endogenous chemicals in aerobic exercises along with specifics regarding the how and why to below exercises. Review of current gym program Recommendations for continuation with UE program 04/28/10 for Cardio = bike/ellipitical/TM Tall kneeling hip flexor stretch added - explored other options SL, Supine and standing but patient most comfortable with tall kneeling Pallof Press - B Lateral walk outs with cable machine at [facility] Self Care/Home Management Training (54320) x 10 Min: Training in activities of daily living is medically reasonable and necessary and expected to restore or improve the functioning of the patient. The patient has the capacity to learn from the instructions and the therapist was actively lecturing, demonstrating and providing literature in order to assist with patient appropriately and safely performing task. Constipation care: Mg Calm nightly and increase water. Time spent on upcoming desires for and pt concerns Pelvic Floor letting go reviewed from previous care D Breathing instructions provided and use of Extended Child's pose post exercise or increase activity Timed Code Treatment Minutes: 35 Total Treatment Minutes: 55 Plan for next treatment session: Progress patient as tolerated in strength, flexibility, aerobic capacity while monitoring pain levels and adjusting accordingly. 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 Pain is localized to [...] fear- avoidance behavior and history of anxiety. Skilled PT is required to address these el impairments and to provide and progress with outlined plan of care. The patient was educated on the condition, planned therapy intervention and expectations from treatment. Goals were a collaborative effort of the therapist and patient. Barriers to Learning: none Rehab Prognosis: Good PLAN: Planned Intervention/Education: Evaluation, Re-Evaluation, Education, Therapeutic Exercise, Manual Therapy, Neuromuscular Re-education, Self Care/Home Management, Gait Training, Therapeutic Activities PT Frequency/Duration: 1 x/week for 6 weeks for a total of 6 visits Discharge Plan: Goal achievement, goal achievement with home exercise program or if progress plateaus. Informed Consent: Risks, benefits and alternatives to treatment have been explained. Patient and/or family in agreement with care plan. EXPECTED FUNCTIONAL OUTCOMES/GOALS: HEP/Independent Management: Demonstrate independence with HEP and self- management following each treatment session ADL's: Perform home management tasks with ease in 4 (including summer child caregiver demands with increase ease) weeks. Ambulation: Ascend/descend stairs independently with reciprocal pattern with minimal to no symptoms and improved lower extremity alignment in 4 weeks. Sports/Leisure: Return to prior level of leisure or recreational activities, including cardio x 30 min and weight training without an increase in symptoms or limitations in 6 weeks. Evaluation and Plan of Care completed by: Katty Arreaga PT 3:45 PM 08/29/2021 The crutching contractor is completed by the therapist and the referring clinician's electronic signature certifies medical necessity for the plan above. TROCARDIOGRAPH REPAIRER documented in this encounter Plan of Treatment Upcoming Encounters Date Type Specialty Care Team Description 07/04/2022 Appointment [facility]al [facility] [address] [facility] [place] [address] [id number] (Wo rk) 07/22/2022 Appointment Endocrinology Luis Daniel Bradley, [place] [address] [facility] [place] [address] [id number] documented as of this encounter Visit Diagnoses Diagnosis Iliopsoas bursitis of left hip - Primary documented in this encounter Care Teams Bead Picker Relationship Specialty Start Date End Date No Primary/Referring, Phy PCP - General 12/13/19 documented as of this encounter
--- OUTSIDE RECORDS SUMMARY | 2022-06-23 17:53 | XMS_ITS | Encounter Summary ---
:1990 Author Organization [facility] Address [address], [place] [address] Care Team Providers Name Role Phone No Primary/Referring, Phy Primary Care Provider Unavailable Encounter Details Date Type Department Care Team Description 08/15/2021 Telemedicine [facility] [address] nelli thyroiditis (Primary Dx); Endocrinology Eduardo Garcia MD H/O Graves' disease [address] [facility] [address] [place] [phone] (Wo rk) Social History Tobacco Use Types Packs/Day Years Used Date Smoking Tobacco: Never Smokeless Tobacco: Never Alcohol Use Standard Drinks/Week Comments Not Currently 0 (1 standard drink = 0.6 oz pure alcoho l) Sex Assigned at Date Recorded Not on file documented as of this encounter Patient Instructions Patient InstructionsNgLois dominguez MD - 08/15/2021 11:35 AM BOTTOMER OPERATOR Labs in 6 weeks Call with positive OMER OPERATOR documented in this encounter Progress Notes Lois Carr MD - 08/15/2021 12:00 AM CST NAME: DESTINEY HUFF CSN: [id number] CLINIC NOTE DATE OF SERVICE: 08/15/2021 : 1990 HISTORY OF PRESENT ILLNESS: The patient is a 30-year-old female with followup of subacute thyroiditis. She has a history of thyroid dysfunction with Graves disease in 2016, treated with propylthiouracil initially and then switched to methimazole because of a rash. Her Graves disease went into remission in 2019 during . She remained euthyroid until this past February of 2021 when TSHwas low and on repeat in May TSH was elevated above 4. Since then, the patient continues to have some underlying fatigue. She does have some difficulty with insomnia, but is getting up regularly with her 1-year-old child. She has had previous concerns of weight being higher than her baseline and also concerns of menstrual cycle change being 35 days apart as opposed to previously 28 days apart. She is here to discuss followup labs and potential plans for . PAST MEDICAL HISTORY: Positive for Graves disease diagnosed in 2016, treated with methimazole. Graves went into remission in 2019 during . The patient is status post August 25, 2020, history of stable pineal cyst, MRI [facility] between 2013 and 2017, hypermobility syndrome, parest hesias, postural orthostatic tachycardia syndrome. MEDICATIONS: Ferrous sulfate 325 mg daily, vitamin D 5000 international units daily. EXAM: Deferred due to video visit status. VITALS: From July 24, 2021, blood pressure 114/75, pulse 72, weight 141. GENERAL: Alert, oriented, well nourished. EYES: Conjunctivae clear. No visible proptosis. Affect is normal. LABS: On July 31, 2021, fasting glucose 95, sodium 136, potassium 4.2, calcium 9.2, creatinine 0.7, a.m. cortisol 12, prolactin 9.6, TSH 2.99, free T4 0.9, free T3 2.6, ACTH 15.6, and thyroid stimulating immunoglobulin 0.15, TPO antibodies 4. ASSESSMENT: 1. Subacute thyroiditis for which the patient is now euthyroid and TSH has improved to the mid normal range. 2. History of Graves disease, in remission. PLAN: 1. I have reviewed lab findings with the patient in detail. She is reassured that she is euthyroid. For planning, goal TSH is under 2.5, but given that the patient has negative TPO antibody and TSH is improving, it is reasonable to monitor and not treat with levothyroxine at this point. Also, patient is reassured that Graves disease still remains in remission. 2. We discussed thyroid hormone changes during . The patient is interested in starting to attempt now. In the meantime, she has upcoming appointment with her DISTRICT RESOURCE OFFICER because of change inher cycles and delayed ovulation. Current labs do not explain the change in her menstrual cycles. 3. Recheck a TSH, free T4, free T3 in 6 weeks. The patient in the meantime should call if she has a positive test. We will plan to do monthly thyroid labs until 16 weeks and then each trimester/. 4. In the meantime, we will also check an A1c in 6 weeks. The patient was concerned that her fastingglucose is on the higher end of normal. However, patient does not have other risk factors for diabetes mellitus. 5. Interval followup will depend on test. This visit was conducted via video. Location of clinician home. Location of patient home. Billing based on: Time Total time for the visit was 30 minutes including, but not limited to, wlh-[id number]-bz-face time spent reviewing records, counseling, and coordination of care. LOIS CARR MD REYNA/AQS /[id number] OMER OPERATOR documented in this encounter Plan of Treatment Upcoming Encounters Date Type Specialty Care Team Description 07/04/2022 Appointment Otolaryngology Opal Richardson MD [address] [phone] (Wo rk) 07/22/2022 Appointment Endocrinology Luis Daniel Bradley MBBS [address] [id number] documented as of this encounter Results HgbA1c (09/26/2021 8:13 AM BOTTOMER OPERATOR) [facility] Method Time Signature Hemoglobin A1C 5.3 <=5.6 % 09/26/2021 [place] 4:45 PM BOTTOMER OPERATOR [facility]EN[facility]AL LAB Specimen Anatomical Collection Method / Collection Time Recei ching Time (Source) Location / Volume Laterality Blood Venipuncture / 09/26/2021 8:13 09/26/2021 8:13 Unknown AM BOTTOMER OPERATOR AM BOTTOMER OPERATOR Lois Carr MD LAB_1 Performing Organization Address [facility]/ZIP Code Phon e Number [facility] [address] [address] Free T4 (Expected: 42 days) (09/26/2021 8:13 AM BOTTOMER OPERATOR) athologist Signature T4, Free 0.90 0.70 - 1.50 09/26/2021 [facility] ng/dL 2:20 PM BOTTOMER OPERATOR LABORATORY Specimen Anatomical Collection Method / Collection Time Recei ching Time (Source) Location / Volume Laterality Blood Venipuncture / 09/26/2021 8:13 09/26/2021 8:13 Unknown AM BOTTOMER OPERATOR AM BOTTOMER OPERATOR Lois Carr MD LAB_1 Performing Organization Address [facility] Phon e Number [facility] [address] [place] [address] Free T3 (Expected: 42 days) (09/26/2021 8:13 AM BOTTOMER OPERATOR) athologist Signature T3, Free 2.20 1.70 - 3.70 09/26/2021 [facility] pg/mL 2:20 PM BOTTOMER OPERATOR LABORATORY Specimen Anatomical Collection Method / Collection Time Recei ching Time (Source) Location / Volume Laterality Blood Venipuncture / 09/26/2021 8:13 09/26/2021 8:13 Unknown AM BOTTOMER OPERATOR AM BOTTOMER OPERATOR Lois Carr MD LAB_1 Performing Organization Address [facility] Phon e Number [facility] [address] [place] [address] TSH (Expected: 42 days) (09/26/2021 8:13 AM BOTTOMER OPERATOR) athologist Signature TSH, Sensitive 2.62 0.30 - 09/26/2021 [facility] 4.50 2:21 PM BOTTOMER OPERATOR LABORATORY uIU/mL Specimen Anatomical Collection Method / Collection Time Recei ching Time (Source) Location / Volume Laterality Blood Venipuncture / 09/26/2021 8:13 09/26/2021 8:13 Unknown AM BOTTOMER OPERATOR AM BOTTOMER OPERATOR Lois Carr MD LAB_1 Performing Organization Address City/State/ZIP Code Phon e Number [facility] [address] [place] [address] documented in this encounter Visit Diagnoses Diagnosis Subacute thyroiditis (HRC) - Primary Subacute thyroiditis H/O Graves' disease Personal history of other endocrine, met abolic, and immunity disorders documented in this encounter Care Teams Environmental Services Tech Relationship Specialty Start Date End Date No Primary/Referring, Phy PCP - General 12/13/19 documented as of this encounter
--- OUTSIDE RECORDS SUMMARY | 2022-06-23 17:53 | XMS_ITS | Encounter Summary ---
:1990 Author Organization [facility] Address [address] [place] [address] Care Team Providers Name Role Phone No Primary/Referring, Phy Primary Care Provider Unavailable Reason for Visit Reason Comments HIP PAIN Encounter Details Date Type Department Care Team Description 11/27/2021 Therapy [facility], Katty Arreaga PT Iliopsoas bursitis of left hip (Primary Dx); Physical Therapy [address] [facility] Right knee pain, unspecified chronicity; [address] [place] [address] Right foot pain; [place], [place] [address] 11 weeks gestation of [phone] Social History Tobacco Use Types Packs/Day Years Used Date Smoking Tobacco: Never Smokeless Tobacco: Never Alcohol Use Standard Drinks/Week Comments Not Currently 0 (1 standard drink = 0.6 oz pure alcoho l) Sex Assigned at Date Recorded Not on file documented as of this encounter Progress Notes Katty Arreaga, PT - 11/27/2021 11:30 AM CDT [facility] [place] [facility] Daily Note Visit Number: 7 BCBS: Other Initial Certification Period: 08/29/2021 to [...] Pt planning to conceive upcoming prn. 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 SUBJECTIVE: Functional Status/Patient Report: Pt continues to struggle with R foot/great toe pain. Arrives in cast boat on this date. 11 weeks and wanting related musculoskeletal care. R foot has limited activity as well as scare with early thus have not been to gym - R knee and L hipholding steady. OBJECTIVE: Today's Findings: Iliosacral alignment: L Anterior Innominate rotation MTP Flexion/Extension WNL's - sensitivity with A/P ROM TREATMENT TODAY: Manual Therapy (97264) x 10 Min: Utilized for the purpose of improving mobility and blood flow alongwith pain reduction principles. Pre and Post assessment time included along with time for the explanations and role of manual therapy = facilitation to recovery vs fix. L SL for R L/P Mobs R SL for L MET Therapeutic Exercise (CPT 89728) x 0 Min: Utilized for the purpose [...] Extension with UE on foot bar - SHRUB GROWER HEP review: B SLR x 10 B SLR with ER or SL hip adduction for VMO activation x 10 Clam shell B x 10 x 10 holds Glut/HS bridges with feet on 6 step - attempted single - pt unable to perform Self Care/Home Management Training (29700) x 15 Min: Training in activities of daily living [...] pelvic girdle, and LE as able - Time spent on reassurance with current care strategies -Provider f/u - Dx of Metatarsalgia on R foot - Super feet with metatarsalgia pad (pink) just arrived- - will initiate in srinivasan - pt also reports buying [employer] for trial Recommendation for Super Feet secondary to use in past and return of R foot pain over past 2 weeks -pt belief that maybe helpful thus recommendations made Brace adjustments - trial with strap and placement and review of use - no longer using Reassurance re: diagnosis and recovery Timed Code Treatment Minutes: 25 Total Treatment Minutes: 25 ASSESSMENT: Pt broading care to include musculoskeletal care during to address LB/pelvic girdle, and persistent R knee. Pt is 11 weeks gestation with second . [facility] Pt with noted L anterior pelvis and pt relates to walking with boot. MET to pelvis on this date with good response. High fear present and time spent on reassurance and summary of el but simple care strategies. Therapist Impression: 30 year old female familiar [...] F/u on R foot pain. F/u on early status. Reformer prn. Progress patient as tolerated in strength, flexibility, aerobic capacity while monitoring pain levels and adjusting accordingly. EXPECTED FUNCTIONAL OUTCOMES/GOALS: HEP/Independent Management: Demonstrate independence with HEP and self- management following each treatment session ADL's: Perform home management tasks with ease in 4 (including child care centre director demands with increase ease) weeks. Ambulation: Ascend/descend stairs independently with reciprocal pattern with minimal to no symptoms and improved lower extremity alignment in 4 weeks. Sports/Leisure: Return to prior level of leisure or recreational activities, including cardio x 30 min and weight training without an increase in symptoms or limitations in 6 weeks. Therapist: Katty Arreaga, PT 11:48 AM 11/27/2021 documented in this encounter Plan of Treatment Upcoming Encounters Date Type Specialty Care Team Description 07/04/2022 Appointment Otolaryngology Opal Richardson MD [address] [facility] N [id number] (Wo rk) 07/22/2022 Appointment Endocrinology Luis Daniel Bradley MBBS [address] [facility] [address] N [id number] documented as of this encounter Visit Diagnoses Diagnosis Iliopsoas bursitis of left hip - Primary Right knee pain, unspecified chronicity Right foot pain Pain in limb 11 weeks gestation of state, incidental documented in this encounter Care Teams Nurse Orthopedic Relationship Specialty Start Date End Date No Primary/Referring, Phy PCP - General 12/13/19 documented as of this encounter
--- OUTSIDE RECORDS SUMMARY | 2022-06-23 17:53 | XMS_ITS | Encounter Summary ---
:1990 [facility] Address [address] [place] [address] Care Team Providers Name Role Phone No Primary/Referring, Phy Primary Care Provider Unavailable Encounter Details Date Type Department Care Team Description 10/04/2021 Lab Visit [facility] Contact with and [address] (suspected) [place] [address] covid-19 Social History Tobacco Use Types Packs/Day Years Used Date Smoking Tobacco: Never Smokeless Tobacco: Never Alcohol Use Standard Drinks/Week Comments Not Currently 0 (1 standard drink = 0.6 oz pure alcoho l) Sex Assigned at Date Recorded Not on file documented as of this encounter Plan of Treatment Upcoming Encounters Date Type Specialty Care Team Description 07/04/2022 Appointment Otolaryngology Opal Richardson MD [address] [facility] N [id number] (Wo rk) 07/22/2022 Appointment Endocrinology Luis Daniel Bradley MBBS [address] [facility] N [id number] documented as of this encounter Procedures Procedure Name Priority Date/Time Associated Comments Diagnosis 2019 NOVEL Routine 10/04/2021 11:50 Contact with and Results for this CORONAVIRUS AM CDT (suspected) procedure are i n exposure to the results covid-19 section. documented in this encounter Results Symptomatic - 2019 Novel Coronavirus (COVID-19) (10/04/2021 11:50 AM CDT) [facility] Method Time Signature COVID-19 Not Not 10/05/2021 [facility] Interpretation Detected Detected 1:12 AM CENTRAL LAB CDT Source Nares, left 10/05/2021 [facility] and right 1:12 AM CENTRAL LAB CDT Specimen Anatomical Collection Method Collection Time Receive d Time (Source) Location / / Volume Laterality Swab (Source ENTIRE ANTERIOR Non-blood 10/04/2021 11:50 10/05/19 22 Required) NARIS / Unknown Collection / AM CDT 11:50 AM CDT Unknown Narrative [facility] - 10/05/2021 1:12 AM CDT Test performed by Electrician Substation Mediated Amplification. TMA has been shown to be equivalent to commercial real-time PCR t ests. This test has been authorized by the FDA under Emergency Use Authorization (E UA) for use by authorized laboratories. Andrews Aguilar MD LAB_1 Performing Organization Address City/State/ZIP Code Phon e Number [facility] [address] [address] documented in this encounter Visit Diagnoses Diagnosis Contact with and (suspected) exposure to covid-19 documented in this encounter Additional Health Concerns Infection Onset Date Last Indicated Resolved Time R/O COVID19 10/04/2021 10/04/2021 10/05/2021 1:12 AM CDT documented as of this encounter Care Teams Senior Customer Service Representative Relationship Specialty Start Date End Date No Primary/Referring, Phy PCP - General 12/13/19 documented as of this encounter
--- OUTSIDE RECORDS SUMMARY | 2022-06-23 17:53 | XMS_ITS | Encounter Summary ---
:1990 Author [facility] Address [address] [place] [address] Care Team Providers Name Role Phone No Primary/Referring, Phy Primary Care Provider Unavailable Reason for Visit Reason Comments HIP PAIN Encounter Details Date Type Department Care Team Description 12/11/2021 Therapy [facility], Katty Arreaga PT Iliopsoas bursitis of left hip (Primary Dx); Physical Therapy [address] [facility] Right knee pain, unspecified chronicity; [address] [place] [address] Right foot pain; [place], [place] [address] 13 weeks gestation of [phone] Social History Tobacco Use Types Packs/Day Years Used Date Smoking Tobacco: Never Smokeless Tobacco: Never Alcohol Use Standard Drinks/Week Comments Not Currently 0 (1 standard drink = 0.6 oz pure alcoho l) Sex Assigned at Date Recorded Not on file documented as of this encounter Progress Notes Katty Arreaga, PT - 12/11/2021 11:00 AM CDT [facility] [place] [facility] Daily Note Visit Number: 8 BCBS: Other Initial Certification Period: 08/29/2021 to [...] Pt planning to conceive upcoming prn. 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 SUBJECTIVE: Functional Status/Patient Report: Pt continues to struggle with R foot/great toe pain. 13 weeks today and considering MRI tomorrow to assess concerned sesamoid bone. Arrives in tennis shoe on this dateas boot challenges hip and low back. 13 weeks and adding related musculoskeletal care. OBJECTIVE: Today's Findings: Iliosacral alignment: WNL's MTP Extension R painful at end range but motion complete - all sensitivity increased with load SLR L 50 - improved to 70 post care SLR R 70 TREATMENT TODAY: Manual Therapy (78408) x 8 Min: Utilized for the purpose of improving mobility and blood flow along with pain reduction principles. Pre and Post assessment time included along with time for the explanations and role of manual therapy = facilitation to recovery vs fix. L SL for R L/P Mobs R SL for L MET - DNP L L/S passive neuroglides - 20 degree SLR increase post Therapeutic Exercise (CPT 43812) x 8 Min: Utilized for the purpose [...] pelvic gentle mobility Self Care/Home Management Training (25362) x 10 Min: Training in activities of [...] with current care strategies -Provider f/u - Possible R foot MRI pending - Dx of Metatarsalgia on R foot - Super feet with metatarsalgia pad (pink) just arrived- - will initiate in [place] - pt also reports buying [employer] for trial - Pt had orthotic made - no noted change - brief review of use and possible adjustments Timed Code Treatment Minutes: 26 - Pt 10 min late Total Treatment Minutes: 26 ASSESSMENT: Pt broading care to include musculoskeletal care during to address LB/pelvic girdle, R knee/foot and any global wellness management during . Pt is 13 weeks gestation withsecond . Pt to seek [facility] from [facility]. R foot wt bearing concerns remain. 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 Pain is localized [...] in 6 weeks. Therapist: Katty Arreaga, PT 11:10 AM 12/11/2021 documented in this encounter Plan of Treatment Upcoming Encounters Date Type Specialty Care Team Description 07/04/2022 Appointment Otolaryngology Opal Richardson MD [address] [id number] (Wo rk) 07/22/2022 Appointment Endocrinology Luis Daniel Bradley MBBS [address] [id number] documented as of this encounter Visit Diagnoses Diagnosis Iliopsoas bursitis of left hip - Primary Right knee pain, unspecified chronicity Right foot pain Pain in limb 13 weeks gestation of state, incidental documented in this encounter Care Teams Jeweler Apprentice Relationship Specialty Start Date End Date No Primary/Referring, Phy PCP - General 12/13/19 documented as of this encounter
--- OUTSIDE RECORDS SUMMARY | 2022-06-23 17:53 | XMS_ITS | Encounter Summary ---
:1990 [facility] Address [address] [place] [address] Care Team Providers Name Role Phone No Primary/Referring, Phy Primary Care Provider Unavailable Reason for Visit Reason Comments HIP PAIN Encounter Details Date Type Department Care Team Description 10/24/2021 Therapy [facility], Katty Arreaga PT Iliopsoas bursitis of left hip (Primary Dx); Physical Therapy [address] [facility] Right knee pain, unspecified chronicity [address] [place] [address] [place], [place] [address] [phone] Social History Tobacco Use Types Packs/Day Years Used Date Smoking Tobacco: Never Smokeless Tobacco: Never Alcohol Use Standard Drinks/Week Comments Not Currently 0 (1 standard drink = 0.6 oz pure alcoho l) Sex Assigned at Date Recorded Not on file documented as of this encounter Progress Notes Katty Arreaga, PT - 10/24/2021 7:30 AM CDT [facility]edic [place] [facility] Daily Note Visit Number: 6 BCBS: Other Initial Certification Period: 08/29/2021 to [...] Pt planning to conceive upcoming prn. 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 SUBJECTIVE: Functional Status/Patient Report: Had R foot looked at and dx as metatarsalgia which has affected mygait and therefore my hip. Overall my knee has been holding steady. Have not been over to the gym secondary to R foot. Wanting to still return to squat position w/o pain for early childhood teacher demands and ptreports continuing to avoid. OBJECTIVE: Today's Findings: Iliosacral alignment: L Upslip and R Anterior innominate Standing IC and PSIS Elevated SLR R x 55- + adduction structural diff bias for neurotension B SLR L x 50 TREATMENT TODAY: Manual Therapy (49860) x 15 Min: Utilized for the purpose of improving mobility and blood flow alongwith pain reduction principles. Pre and Post assessment time included along with time for the explanations and role of manual therapy = facilitation to recovery vs fix. R SL for L L/P Mobs R SL for L/S sliders x 10 Supine - gentle traction L L SL for R MET Therapeutic Exercise (CPT 37707) x 0 Min: Utilized for the purpose [...] Extension with UE on foot bar - PARTY BUS DRIVER HEP review: B SLR x 10 B SLR with ER or SL hip adduction for VMO activation x 10 Clam shell B x 10 x 10 holds Glut/HS bridges with feet on 6 step - attempted single - pt unable to perform Self Care/Home Management Training (22401) x 10 Min: Training in activities of daily living is medically reasonable and necessary and expected to restore or improve the functioning of the patient. The patient has the capacity to learn from the instructions and the therapist was actively lecturing, demonstrating and providing literature in order to assist with patient appropriately and safely performing task. -Provider f/u - Dx of Metatarsalgia on R foot - Super feet with metatarsalgia pad (pink) just arrived- - will initiate in srinivasan - pt also reports buying [employer] for trial Recommendation for Super Feet secondary to use in past and return of R foot pain over past 2 weeks -pt belief that maybe helpful thus recommendations made Brace adjustments - trial with strap and placement and review of use - no longer using Reassurance re: diagnosis and recovery Timed Code Treatment Minutes: 25 Total Treatment Minutes: 25 ASSESSMENT: Pt reported early status but waiting for further f/u as has had some bleeding.R foot pain evaluated this week with dx per provider of metatarsalgia affecting pt's gait and current knee/hip recovery program. MET to pelvis on this date with good response. 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 Pain is localized [...] management tasks with ease in 4 (including early childhood teacher demands with increase ease) weeks. Ambulation: Ascend/descend stairs independently with reciprocal pattern with minimal to no symptoms and improved lower extremity alignment in 4 weeks. Sports/Leisure: Return to prior level of leisure or recreational activities, including cardio x 30 min and weight training without an increase in symptoms or limitations in 6 weeks. Therapist: Katty Arreaga, PT 7:35 AM 10/24/2021 documented in this encounter Plan of Treatment Upcoming Encounters Date Type Specialty Care Team Description 07/04/2022 Appointment Otolaryngology Opal Richardson MD [address] N [id number] (Wo rk) 07/22/2022 Appointment Endocrinology Luis Daniel Bradley MBBS [address] [id number] documented as of this encounter Visit Diagnoses Diagnosis Iliopsoas bursitis of left hip - Primary Right knee pain, unspecified chronicity documented in this encounter Care Teams Maintenance Foreman Relationship Specialty Start Date End Date No Primary/Referring, Phy PCP - General 12/13/19 documented as of this encounter
--- OUTSIDE RECORDS SUMMARY | 2022-06-23 17:53 | XMS_ITS | Encounter Summary ---
:1990 Author Organization [facility] Address [address] [place] [address] Care Team Providers Name Role Phone No Primary/Referring, Phy Primary Care Provider Unavailable Reason for Visit Reason Comments Follow-up Encounter Details Date Type Department Care Team Description 01/17/2022 Office Visit [facility] Vin Mckeon DO Paresthesias (Primary [address] [place] [address] Av Dx) [place] [address] S [phone] [place] [address] (Wo rk) Social History Tobacco Use Types Packs/Day Years Used Date Smoking Tobacco: Never Smokeless Tobacco: Never Alcohol Use Standard Drinks/Week Comments Not Currently 0 (1 standard drink = 0.6 oz pure alcoho l) Sex Assigned at Date Recorded Not on file documented as of this encounter Last Filed Vital Signs Vital Sign Reading Time Taken Comments Blood Pressure 104/73 01/17/2022 12:39 PM CDT Pulse 87 01/17/2022 12:39 PM CDT Temperature - - Respiratory Rate 11 01/17/2022 12:39 PM CDT Oxygen Saturation - - Inhaled Oxygen Concentration - - Weight - - Height - - Body Mass Index - - documented in this encounter Progress Notes Vin Mckeon DO - 01/17/2022 12:40 PM CDT [facility] Follow-Up 31 y.o. patient presenting for neurology follow up for facial weakness. History obtained from patient and chart. -Prior History: 29 yo F with PMH POTS presenting to the neurology clinic for evaluation for leg weakness and abdominal pain/pulling. History obtained from patient and chart. ?? ~08/2020 patient had uncomplicated which led into a emergent section that require general anesthesia. No complications with mom or baby. ?? Since then she reports that she is having left greater than right abdominal discomfort and pulling, which then worsens with movement of her left more than right leg. She denies true weakness or numbness in the leg, however feels like her leg is difficult to lift due to the pooling in the abdomen. She saw OBGYN and they were unsure of the reason and therefore referred to Neurology. ?? No prior issues with the legs, she reports that there isn't clear weakness. No significant back pain. She saw me again in 02/2011 for right facial pain, dx either atypical TN vs facial pain syndrome vs other. -Subjective: Patient presents for follow-up to the clinic for abnormal sensations in the hands and body. Recent diagnosis of shingles in the L upper chest, with rash starting on 12/27/2021, 12/29/2021 started on Valtrex at urgent care. Symptoms preceded this, and have slightly improved over the past 2-3days. No clear weakness or numbness. Pt is 18w . -Interval Data: 01/01/2022: B12 1177, Ferritin 12, Na 135 otherwise CMP and CBC unremarkable 12/24/2021: TSH, free T3/T4 wnl ROS: Review of Systems Complete Review of Systems is negative, unless noted in HPI Exam There were no vitals taken for this visit. Constitutional: Well-nourished Respiratory: No distress Skin: No acute rashes Neuro: Awake, interactive, follows commands, fluency preserved, gaze midline, lateral EOMI, no overtnystagmus, no facial weakness, antigravity in UE and LE bilaterally, no involuntary movements Lab Results Component Value Date/Time WBC 6.4 01/01/2022 07:59 AM RBC 4.02 01/01/2022 07:59 AM HGB 12.1 01/01/2022 07:59 AM HCT 36.3 01/01/2022 07:59 AM MCV 90.3 01/01/2022 07:59 AM MCH 30.1 01/01/2022 07:59 AM MCHC 33.3 01/01/2022 07:59 AM PLTS 263 01/01/2022 07:59 AM RDW 13.1 01/01/2022 07:59 AM BUN (mg/dL) Date Value 01/01/2022 8 Sodium (mmol/L) Date Value 01/01/2022 135 (L) Potassium (mmol/L) Date Value 01/01/2022 4.5 Chloride (mmol/L) Date Value 01/01/2022 105 Glucose (mg/dL) Date Value 01/01/2022 82 Creatinine (mg/dL) Date Value 01/01/2022 0.58 GFR, Estimated (mL/min/1.73m2) Date Value 01/01/2022 >60 Calcium (mg/dL) Date Value 01/01/2022 8.9 Anion Gap (mmol/L) Date Value 01/01/2022 8 Impression 1. Dysesthesias, etiology TBD. Most logical is a metabolic issue, ie B12/viatmin deficiency vs /hormone related, other autoimmune vs other is not excluded. Relationship to recent shingles infection also not excluded, lastly related to stress also not excluded. 2. Right-sided facial pain, etiology not entirely clear at this time. There are some components of trigeminal neuralgia, however with V1 involved this is slightly less likely, other etiologies include an unspecified facial pain syndrome, the trigeminal autonomic cephalgias also not excluded. She has had structural brain imaging in the past with these episodes which have been unrevealing. Plan -serum lab work Vin Mckeon DO 01/17/2022 12:37 PM Neurologist Total Time: 30 minutes documented in this encounter Plan of Treatment Upcoming Encounters Date Type Specialty Care Team Description 07/04/2022 Appointment Otolaryngology Opal Richardson MD [address] [id number] (Wo rk) 07/22/2022 Appointment Endocrinology Luis Daniel Bradley MBBS [address] N [id number] documented as of this encounter Visit Diagnoses Diagnosis Paresthesias - Primary Disturbance of skin sensation documented in this encounter Care Teams Conduit Installer Relationship Specialty Start Date End Date No Primary/Referring, Phy PCP - General 12/13/19 documented as of this encounter
--- OUTSIDE RECORDS SUMMARY | 2022-06-23 17:54 | XMS_ITS | Encounter Summary ---
:1990 Author Organization [facility] Address [address] [place] [address] Care Team Providers Name Role Phone Needs Pcp, Assignment Primary Care Provider Reason for Visit Procedure/Equipment (Routine) - Incomplete Specialty Diagnoses / Procedures Referred By Contact Refer red To Contact Diagnoses Sacroiliac joint pain (HRC) Matteo Serrano MD Procedures XR Sacrum/Coccyx [address] [place] [address] Referral ID Status Reason Start Date Expiration Date Visits V isits Requested Authorized [id number] Incomplete 08/21/2018 11/20/2019 1 1 Encounter Details Date Type Department Care Team Description 08/21/2018 Ancillary Procedure [facility] Matteo Serrano, Injury of back, [address] initial encounter [address] [place], [place] [phone] Social History Tobacco Use Types Packs/Day Years Used Date Smoking Tobacco: Never Smokeless Tobacco: Never Sex Assigned at Date Recorded Not on file documented as of this encounter Plan of Treatment Upcoming Encounters Date Type Specialty Care Team Description 07/04/2022 Appointment Otolaryngology Opal Richardson MD [address] N [phone] (Wo rk) 07/22/2022 Appointment Endocrinology Luis Daniel Bradley MBBS [address] N [phone] documented as of this encounter Procedures Procedure Name Priority Date/Time Associated Diagnosis Comme nts XR SACRUM/COCCYX Routine 08/21/2018 10:30 AM Injury of back, R esults for this SOCIAL SCIENCE MANAGER initial encounter procedure are in the results section. documented in this encounter Results XR Sacrum/Coccyx (08/21/2018 10:30 AM SOCIAL SCIENCE MANAGER) Anatomical Region Laterality Modality Spine, Pelvis Digital Radiography Specimen (Source) Anatomical Collection Method Collection Time Re ceived Time Location / / Volume Laterality 08/21/2018 10:14 AM SOCIAL SCIENCE MANAGER Narrative 08/21/2018 10:57 AM SOCIAL SCIENCE MANAGER COMPARISON: ??None. FINDINGS: ??Bony structures appear intac t with no fracture seen. ??Joint spaces are within normal limits. Procedure Note Laura Spencer MD - 08/21/2018Formatti ng of this note might be different from the original. COMPARISON: None. FINDINGS: Bony structures appear intact with no fracture seen. Joint spaces are within normal limits. Matteo Serrano MD RAD GD documented in this encounter Visit Diagnoses Diagnosis Injury of back, initial encounter documented in this encounter Care Teams Pocket And Pulley Machine Operator Relationship Specialty Start Date End Date Needs Pcp, Assignment PCP - General 07/07/17 12/12/19 [place] [address] documented as of this encounter
--- OUTSIDE RECORDS SUMMARY | 2022-06-23 17:54 | XMS_ITS | Encounter Summary ---
:1990 Author Organization [facility] Address [address] [place] [address] Care Team Providers Name Role Phone No Primary/Referring, Phy Primary Care Provider Unavailable Reason for Visit Reason Onset Date Comments COVID Questions 04/23/2021 Encounter Details Date Type Department Care Team Description 04/23/2021 Lab Visit [facility] [place] [address] [place] [address] (Primary Dx) [phone] Social History Tobacco Use Types Packs/Day Years Used Date Smoking Tobacco: Never Smokeless Tobacco: Never Alcohol Use Standard Drinks/Week Comments Not Currently 0 (1 standard drink = 0.6 oz pure alcoho l) Sex Assigned at Date Recorded Not on file documented as of this encounter Plan of Treatment Upcoming Encounters Date Type Specialty Care Team Description 07/04/2022 Appointment Otolaryngology Opal Richardson MD [address] [facility] N [phone] (Wo rk) 07/22/2022 Appointment Endocrinology Luis Daniel Bradley MBBS [address] [facility] N [address] documented as of this encounter Procedures Procedure Name Priority Date/Time Associated Comments Diagnosis 2019 NOVEL Routine 04/23/2021 3:23 PM Encounter for Results for this CORONAVIRUS CDT screening for other procedur e are in viral diseases the results section. documented in this encounter Results Symptomatic - 2019 Novel Coronavirus (COVID-19) (04/23/2021 3:23 PM CDT) [facility] Method Time Signature COVID-19 Not Not 04/24/2021 [facility] Interpretation Detected Detected 12:21 PM CENTRAL LAB CDT Source Nares, left 04/24/2021 [facility] and right 12:21 PM CENTRAL LAB CDT Specimen Anatomical Collection Method Collection Time Receive d Time (Source) Location / / Volume Laterality Swab (Source ENTIRE ANTERIOR Non-blood 04/23/2021 3:23 PM 2020 3:23 Required) NARIS / Unknown Collection / CDT PM CDT Unknown Narrative [facility] - 04/24/2021 12:21 PM CDT Test performed by [employer] Mediated Amplification. TMA has been shown to be equivalent to commercial real-time PCR t ests. This test has been authorized by the FDA under an Emergency Use Authorization (EUA) for use by authorized laboratories. Andrews Aguilar MD LAB_1 Performing Organization Address City/State/ZIP Code Phon e Number [facility] [address] [phone] documented in this encounter Visit Diagnoses Diagnosis Encounter for screening for other viral diseases - Primary documented in this encounter Additional Health Concerns Infection Onset Date Last Indicated Resolved Time R/O COVID19 04/23/2021 04/23/2021 04/24/2021 12:21 PM CDT documented as of this encounter Care Teams Ditcher Relationship Specialty Start Date End Date No Primary/Referring, Phy PCP - General 12/13/19 documented as of this encounter
--- OUTSIDE RECORDS SUMMARY | 2022-06-23 17:54 | XMS_ITS | Encounter Summary ---
:1990 Author Organization [facility] Address [address] [place] [address] Care Team Providers Name Role Phone No Primary/Referring, Phy Primary Care Provider Unavailable Reason for Visit Procedure/Equipment (Routine) - Incomplete Specialty Diagnoses / Procedures Referred By Contact Refer red To Contact Procedures Provider, Foreign Images Foreign Image(S) MR Wrist Lt [address] [place] [address] Referral ID Status Reason Start Date Expiration Date Visits V isits Requested Authorized [id number] Incomplete 01/01/2021 04/02/2022 1 1 Encounter Details Date Type Department Care Team Description 12/20/2020 Ancillary Procedure [facility] PACS Provider, [address] [address] [address] [place] [address] Social History Tobacco Use Types Packs/Day Years Used Date Smoking Tobacco: Never Smokeless Tobacco: Never Alcohol Use Standard Drinks/Week Comments Not Currently 0 (1 standard drink = 0.6 oz pure alcoho l) Sex Assigned at Date Recorded Not on file documented as of this encounter Plan of Treatment Upcoming Encounters Date Type Specialty Care Team Description 07/04/2022 Appointment Otolaryngology Opal Richardson MD [address] [facility] N [phone] (Wo rk) 07/22/2022 Appointment Endocrinology Luis Daniel Bradley MBBS [address] [facility] N [phone] documented as of this encounter Procedures Procedure Name Priority Date/Time Associated Diagnosis Comme nts FOREIGN IMAGE(S) MR Routine 12/20/2020 9:20 AM Re sults for this WRIST LT CDT procedure are i n the results section. documented in this encounter Results Foreign Image(S) MR Wrist Lt (12/20/2020 9:20 AM CDT) Specimen (Source) Anatomical Location Collection Method / Collectio n Time Received Time / Laterality Volume Narrative POCT - 01/01/2021 9:20 AM CDT These outside images have been uploaded into PACS. If the results were provided, they will be located in the lavinia mulligan's chart under the Media or Imaging tab. Foreign Images Provider RAD NON-REPORTABLES Performing Organization Address City/State/ZIP Code Phon e Number POCT documented in this encounter Visit Diagnoses Not on filedocumented in this encounter Care Teams Oncology Social Work Relationship Specialty Start Date End Date No Primary/Referring, Phy PCP - General 12/13/19 documented as of this encounter
--- OUTSIDE RECORDS SUMMARY | 2022-06-23 17:54 | XMS_ITS | Encounter Summary ---
:1990 Author Organization [facility] Address [address] [place] [address] Care Team Providers Name Role Phone No Primary/Referring, Phy Primary Care Provider Unavailable Encounter Details Date Type Department Care Team Description 07/11/2021 Lab Visit [facility] [address] [facility]; [place] [address] Vaginal dryness [phone] Social History Tobacco Use Types Packs/Day Years Used Date Smoking Tobacco: Never Smokeless Tobacco: Never Alcohol Use Standard Drinks/Week Comments Not Currently 0 (1 standard drink = 0.6 oz pure alcoho l) Sex Assigned at Date Recorded Not on file documented as of this encounter Plan of Treatment Upcoming Encounters Date Type Specialty Care Team Description 07/04/2022 Appointment Otolaryngology Opal Richardson MD [address] [facility] N [phone] (Wo rk) 07/22/2022 Appointment Endocrinology Luis Daniel Bradley MBBS [address] [facility] N [phone] documented as of this encounter Procedures Procedure Name Priority Date/Time Associated Diagnosis Comme nts ANTI SS-B (LA) Routine 07/11/2021 2:54 PM Dry mouth Results for this CLINICAL TRIAL DATA MANAGER Vaginal dryness procedure ar e in the results section . ANTI SS-A (RO) Routine 07/11/2021 2:54 PM Dry eyes Results for this CLINICAL TRIAL DATA MANAGER Dry mouth procedure are i n the results section . documented in this encounter Results Anti SS-B (La) (07/11/2021 2:54 PM CLINICAL TRIAL DATA MANAGER) [facility] Method Time Signature Anti-SSB (La) 0.5 0.0 - 6.9 07/15/2021 [facility] Result U/mL 11:23 AM CENTRAL LAB CLINICAL TRIAL DATA MANAGER Anti-SSB Negative Negative 07/15/2021 [facility] Interpretation 11:23 AM CENTRAL LAB CLINICAL TRIAL DATA MANAGER Specimen Anatomical Collection Method / Collection Time Recei ching Time (Source) Location / Volume Laterality Blood Venipuncture / 07/11/2021 2:54 07/11/2021 2:54 Unknown PM CLINICAL TRIAL DATA MANAGER PM CLINICAL TRIAL DATA MANAGER Loraine Rosales PA-C LAB_1 Performing Organization Address [facility] e Number [facility] [address] [place] [phone] SSA 52 and 60 (Ro) (DESHAUN) Ab, IgG (07/11/2021 2:54 PM CLINICAL TRIAL DATA MANAGER) [facility] Method Time Signature Anti-SSA (RO) 0.5 0.0 - 6.9 07/15/2021 [facility] Result U/mL 11:23 AM CENTRAL LAB CLINICAL TRIAL DATA MANAGER Anti-SSA Negative Negative 07/15/2021 [facility] Interpretation 11:23 AM CENTRAL LAB CLINICAL TRIAL DATA MANAGER Specimen Anatomical Collection Method / Collection Time Recei ching Time (Source) Location / Volume Laterality Blood Venipuncture / 07/11/2021 2:54 07/11/2021 2:54 Unknown PM CLINICAL TRIAL DATA MANAGER PM CLINICAL TRIAL DATA MANAGER Loraine Rosales PA-C LAB_1 Performing Organization Address [facility] e Number [facility] [address] [place] [id number] documented in this encounter Visit Diagnoses Diagnosis Dry eyes Tear film insufficiency, unspecified Dry mouth Disturbance of salivary secretion Vaginal dryness Other specified symptom associated with female genital organs documented in this encounter Care Teams Economic Historian Relationship Specialty Start Date End Date No Primary/Referring, Phy PCP - General 12/13/19 documented as of this encounter
--- OUTSIDE RECORDS SUMMARY | 2022-06-23 17:54 | XMS_ITS | Encounter Summary ---
:1990 Author Organization [facility] Address [address] [place] [address] Care Team Providers Name Role Phone No Primary/Referring, Phy Primary Care Provider Unavailable Reason for Visit Reason Comments Follow-up Encounter Details Date Type Department Care Team Description 02/27/2021 Office Visit [facility] Vin Mckeon DO Facial pain (Primary [address] [place] [address]) [place] [address] S [phone] [place] [address] (Wo rk) Social History Tobacco Use Types Packs/Day Years Used Date Smoking Tobacco: Never Smokeless Tobacco: Never Alcohol Use Standard Drinks/Week Comments Not Currently 0 (1 standard drink = 0.6 oz pure alcoho l) Sex Assigned at Date Recorded Not on file documented as of this encounter Last Filed Vital Signs Vital Sign Reading Time Taken Comments Blood Pressure 115/78 02/27/2021 3:20 PM CDT Pulse 78 02/27/2021 3:20 PM CDT Temperature - - Respiratory Rate 11 02/27/2021 3:20 PM CDT Oxygen Saturation - - Inhaled Oxygen Concentration - - Weight - - Height - - Body Mass Index - - documented in this encounter Progress Notes Vin Mckeon DO - 02/27/2021 3:10 PM CDT [facility] Follow-Up 30 y.o. patient presenting for neurology follow up [...] isn't clear weakness. No significant back pain. -Subjective: Patient presents for follow-up to the clinic. She is doing well in regards to her baby with no issues. She is coming to the clinic today for evaluation of right-sided facial pain. To summarize she has a history of facial pain dating back 5+ years, in the right much greater than left half of her face. She has previously seen the [facility], and has had MRI including MRI of the brain, and angiogram which have been unrevealing. She reports not wanting to get MRIs with gadolinium anymore due to potential side effects of the medication. She reports that she had onset of pain after she got her hair done recently with a deep scalp massage, than the right side of her face began to have an aching pain, starting right in front of the ear, ear pain, spreading into the cheek as well as into the jaw and up into the for had. She does report tearing with the right eye. The pain does come and go, and has been more constant than in previous years. -Interval Data: none ROS: Review of Systems Complete Review of Systems is negative, unless noted in HPI Exam BP 115/78 (BP Location: Left Arm, BP Cuff Size: Regular) Pulse 78 Resp 11 Constitutional: Well-nourished Respiratory: No distress Skin: No acute rashes Neuro: Awake, interactive, follows commands, fluency preserved, gaze midline, lateral EOMI, no overtnystagmus, no facial weakness, antigravity in UE and LE bilaterally, no involuntary movements No results found for: WBC, RBC, HGB, HCT, MCV, MCH, MCHC, PLTS, RDW No results found for: BUN, SODIUM, K, CHLORIDE, CO2, GLUCOSE, CREATININE, GFR, CA, ANIONGAP Impression/Plan Right-sided facial pain, etiology not entirely clear at this time. There are some components of trigeminal neuralgia, however with B1 involved this is slightly less likely, other etiologies include an unspecified facial pain syndrome, the trigeminal autonomic cephalgias so not excluded. She has had str uctural brain imaging in the past with these episodes which have been unrevealing. I discussed with her medication options including gabapentin and carbamazepine, as well as potentially using NSAIDs for relief. She would like to hold off at this time and think about it the future. Vin Mckeon DO 02/27/2021 4:04 PM Neurologist Total Time: 30 minutes documented in this encounter Plan of Treatment Upcoming Encounters Date Type Specialty Care Team Description 07/04/2022 Appointment Otolaryngology Opal Richardson MD [address] [phone] (Wo rk) 07/22/2022 Appointment Endocrinology Luis Daniel Bradley MBBS [address] [phone] documented as of this encounter Visit Diagnoses Diagnosis Facial pain - Primary Headache documented in this encounter Care Teams Director Of Convention Services Relationship Specialty Start Date End Date No Primary/Referring, Phy PCP - General 12/13/19 documented as of this encounter
--- OUTSIDE RECORDS SUMMARY | 2022-06-23 17:54 | XMS_ITS | Encounter Summary ---
:1990 Author Organization [facility] Address [address] [address] Care Team Providers Name Role Phone Needs Pcp, Assignment Primary Care Provider Encounter Details Date Type Department Care Team Description 11/24/2019 Notes/Orders [facility] for Cindy Stephen I [facility] Obstetrics and MD preconception Gynecology [address] [facility] consultation (Primary [address] [place], [place] Dx) [address] [address] [place] [address] [phone] Social History Tobacco Use Types Packs/Day Years Used Date Smoking Tobacco: Never Smokeless Tobacco: Never Sex Assigned at Date Recorded Not on file documented as of this encounter Plan of Treatment Upcoming Encounters Date Type Specialty Care Team Description 07/04/2022 Appointment Otolaryngology Opal Richardson MD [address] [facility] N [address] (Wo rk) 07/22/2022 Appointment Endocrinology Luis Daniel Bradley MBBS [address] [facility] N [address] documented as of this encounter Results Progesterone Adult (12/13/2019 9:18 AM CDT) [facility] Method Time Signature Progesterone, 7.2 ng/mL 12/13/2019 [facility] Adult 3:48 PM CDT CENTRAL LAB Specimen Anatomical Collection Method / Collection Time Recei ching Time (Source) Location / Volume Laterality Blood Venipuncture / 12/13/2019 9:18 12/13/2019 9:18 Unknown AM CDT AM CDT Narrative [facility] - 12/13/2019 3:48 PM CDT Expected values for menstruating females Follicular Phase: <0.1-0.3 ng/mL Luteal Phase: 1.2-15.9 ng/mL Expected values for females 1st Trimester (4-12 weeks): 2.8-147.3 ng /mL 2nd Trimester (13-24 weeks): 22.5-95.3 n g/mL 3rd Trimester (25-36 weeks): 27.9-242.5 ng/mL Cindy Stephen MD LAB_1 Performing Organization Address City/State/ZIP Code Phon e Number [facility] [address] [address] documented in this encounter Visit Diagnoses Diagnosis Encounter for preconception consultation - Primary documented in this encounter Care Teams Operator Cavity Pump Relationship Specialty Start Date End Date Needs Pcp, Assignment PCP - General 07/07/17 12/12/19 [place] [address] documented as of this encounter
--- OUTSIDE RECORDS SUMMARY | 2022-06-23 17:54 | XMS_ITS | Encounter Summary ---
:1990 Author Organization [facility] Address [address] [place] [address] Care Team Providers Name Role Phone No Primary/Referring, Phy Primary Care Provider Unavailable Encounter Details Date Type Department Care Team Description 12/13/2019 Lab Visit [facility] Encounter for preconception [address] [facility] consultation [place], [place] [address] Social History Tobacco Use Types Packs/Day Years Used Date Smoking Tobacco: Never Smokeless Tobacco: Never Sex Assigned at Date Recorded Not on file documented as of this encounter Plan of Treatment Upcoming Encounters Date Type Specialty Care Team Description 07/04/2022 Appointment Otolaryngology Opal Richardson MD [address] [phone] (Wo rk) 07/22/2022 Appointment Endocrinology Luis Daniel Bradley MBBS [address] [facility] [address] N [phone] documented as of this encounter Procedures Procedure Name Priority Date/Time Associated Diagnosis Comme nts PROGESTERONE ADULT Routine 12/13/2019 9:18 AM Encounter for Re sults for this CDT preconception procedure are in consultation the results section. documented in this encounter Results Progesterone Adult (12/13/2019 9:18 AM CDT) [facility] Method Time Signature Progesterone, 7.2 ng/mL 12/13/2019 [facility] 3:48 PM CDT CENTRAL LAB Specimen Anatomical Collection Method / Collection Time Recei ching Time (Source) Location / Volume Laterality Blood Venipuncture / 12/13/2019 9:18 12/13/2019 9:18 Unknown AM CDT AM CDT Narrative [facility] - 12/13/2019 3:48 PM CDT Expected values for menstruating females Follicular Phase: <0.1-0.3 ng/mL Luteal Phase: 1.2-15.9 ng/mL Expected values for females 1st Trimester (4-12 weeks): 2.8-147.3 ng /mL 2nd Trimester (13-24 weeks): 22.5-95.3 n g/mL 3rd Trimester (25-36 weeks): 27.9-242.5 ng/mL Cindy Stephen MD LAB_1 Performing Organization Address City/State/[facility] Code Phon e Number [facility] [address] [address] documented in this encounter Visit Diagnoses Diagnosis Encounter for preconception consultation documented in this encounter Care Teams Line Servicer Relationship Specialty Start Date End Date No Primary/Referring, Phy PCP - General 12/13/19 documented as of this encounter
--- OUTSIDE RECORDS SUMMARY | 2022-06-23 17:54 | XMS_ITS | Encounter Summary ---
:1990 Author Organization [facility] Address [address], [place] [address] Care Team Providers Name Role Phone Needs Pcp, Assignment Primary Care Provider Reason for Visit Reason Onset Date Comments Video Visit 11/14/2019 Encounter Details Date Type Department Care Team Description 11/14/2019 [facility] for Keara Saul Enco unter for preconception consultation (Primary Dx); Women Obstetrics and MD Vaginismus; Gynecology [address] [facility] Dyspareunia in female; [address] [place], [place] Graves disease; [address] [address] History of back surgery; [place] [address] Thrombosis of left jugular vein [phone] Social History Tobacco Use Types Packs/Day Years Used Date Smoking Tobacco: Never Smokeless Tobacco: Never Sex Assigned at Date Recorded Not on file documented as of this encounter Progress Notes Keara Saul MD - 11/14/2019 11:00 AM CDT Addended by: KEARA SAUL I on: 11/21/2019 10:01 AM Modules accepted: Orders Keara Saul MD - 11/14/2019 11:00 AM CDT Subjective: Today's visit with Destiney was conducted as a scheduled video visit, but due to technical malfunctionand it was completed as a phone visit. Ms. Destiney Cassidy is a 28-year-old P0 having visit to day to discuss pre conception counseling in light of several significant comorbidities: Recent diagnosis of Graves disease 3 months ago, vaginismus that has largely completely inhibited intercourse until recently, history of DVT, history of back surgery and scarring, her mother also was deemed infertile after age 32 patient unsure exactly why buthas concern about her own age and how that may relate As far as Graves disease: She was started on methimazole and her TSH and T4 have rapidly normalized.She is currently on 2.5 mg daily. She does have positive TSI, no other autoantibodies per her report. No other autoimmune history personally or in the family that she is aware of Vaginismus: She has not successfully had a Pap smear and has been for 3 years with no intercourse until recently. She is established with Niyah Youssef PT who referred her to me. Through PT andregular dilation she has been able to have penetrative intercourse but it is still painful. She has not used other medical treatments. She has regular 29 day cycles and has been testing ovulation kits getting a positive on day 13. They have been timing intercourse around that and have formally trying for now for 2 cycles. History of DVT: In review of her chart she had a jugular thrombosis following a brain MRI with contrast. Her father also has a history of unprovoked DVT. She was treated with Xarelto after that History of back surgery: She has had resultant scarring and pain afterwards and is not interested inany regional anesthesia either for labor or for a . She is wondering if our practice would be in support of unmedicated as she tries to make a decision of what group to see. Mother unable to conceive after image 32: The exact etiology of this is uncertain but it is weighingon Destiney's mind Objective: There were no vitals taken for this visit. Assessment/Plan: 1. Encounter for preconception consultation 2. Vaginismus 3. Dyspareunia in female 4. Graves disease ([facility]) 5. History of back surgery 6. Thrombosis of left jugular vein 1. Graves disease now and in : I agreed with her staying on her methimazole dose to maintain normal TSH and T4. She will have extra monitoring during including ultrasound and monitoring of TSI levels. We reviewed that we can do this in conjunction with our perinatologist at [facility] and when she has a positive test I would like her to call my office and we will gether in for an early ultrasound around 7 weeks and updated labs including TSI levels within our system 2. Vaginismus: I recommended her considering topical lidocaine in that it may allow for more frequent dilation and intercourse to continue to down regulate the pain cycle that is occurring. The difficulty is that when she is ovulating it would be ideal not to use it as any vaginal products can theoretically be spermicidal and using it without condom could cause the skin of her 's penis to become temporarily numb, though it would not be unsafe to do so. She can definitely use lidocaine prior to having a Pap smear or any vaginal ultrasound that may be needed during . We discussed oralnortriptyline as another option particularly if timing intercourse around ovulation is difficult. She asked about vaginal Valium as well and we reviewed that the results of this studies have not been as robust as it was hoped to would be but it would not be dangerous to try up on it would be less of achronic medication then on starting nortriptyline. Reviewed some studies show improvement in some show no better the sent on placebo but there is minimal systemic side effects. After discussing this she did want to have a trial of it and a prescription for both topical lidocaine and a small number of 5 mg vaginal Valium tablets was sent to her pharmacy. She will keep me updated whether these interventions are helping enough to allow them to have intercourse, if not we could discuss the possibility of inseminations. We did not discussed this today as she has definitely not exceeded all options for vaginismus treatment and formal fertility procedures like that are on hold right now due to COVID. 3.. History of DVT: Was provoked by of procedure but during she will have prophylactic anticoagulation 4. History of back surgery and scarring: Reviewed that our practice is definitely supportive of patient is not having an epidural for their and we do have other options we can consider. She askedabout whether she should see a community midwife for this and we discussed that the physicians at our practiceare supportive of avoiding an epidural and that she should definitely have her care with a physician due to her comorbidities but we could very carefully consider a community midwife manage if everything is stable leading up to delivery. I would only recommend that in a practice like ours where the physicians and midwives work very collaboratively together, she would not be a candidate for a freestanding Center. 5. While it is unclear if her mother had early menopause or exactly what caused her infertility after the age of 30 to given that Destiney is a little higher risk as well with an autoimmune condition we will just get baseline day 3 labs with her next cycle this to confirm that those are normal. 6. Also in review of her chart she has had recent trigeminal neuralgia that is causing headaches, seeing Neurology at the [facility]. A trial of carbamazepine was discussed but she has been hoping to avoid long-term medications for that so has held off We will touch base with her day 3 lab results, or if she conceives this month she will call with a positive test. Further, she will keep me updated on how with the lidocaine and vaginal Valium as helping with her vaginismus Clinician located at home. Patient located at home Billing based on: Time 47 minutes spent on the phone with the patient, with greater than 50% in counseling and coordinationof care. Verbal consent obtained for Care everywhere Keara Saul MD documented in this encounter Nursing Notes Thalia Farris CMA - 11/14/2019 11:00 AM CDT Prior Authorization was Denied for Lidocaine 5% ointment . Rationale for denial: You must meet one of the followin) have tried and had a poor response to an over-the- counter (OTC) topical (applied to the skin) lidocaine product, or 2) are currently receiving a positive response to the requested drug and a change in therapy will be ineffective or cause harm. You may not have to try OTC topical lidocaine if your doctor has provided information that it is not appropriate for you. To Appeal 1. Click Appeal 2. Enter any relevant/helpful information in the Note to Payer box 3. Click Accept To change medication 1. Click Change Med 2. Order new medication 3. Click ePA Assistance Quick Action to document 4. Select Change Med option 5. Route to: your department's designated pool If you want the patient to pay [id number] 1. Click ePA Assistance Quick Action to document 2. Select Out of Pocket option 3. Flag or Route to: your department's designated pool Thalia Farris CMA Keara Saul MD - 11/14/2019 11:00 AM CDT I sent in the 2% lidocaine instead to see if her plan covers that Keara Saul MD documented in this encounter Plan of Treatment Upcoming Encounters Date Type Specialty Care Team Description 07/04/2022 Appointment Otolaryngology Opal Richardson MD [address] [facility] N [phone] (Wo rk) 07/22/2022 Appointment Endocrinology Luis Daniel Bradley MBBS [address] [facility] N [id number] documented as of this encounter Results FSH (11/22/2019 2:05 PM CDT) athologist Signature FSH 8.7 mIU/mL 11/23/2019 [facility] 12:10 PM CDT CENTRAL LAB Specimen Anatomical Collection Method / Collection Time Recei ching Time (Source) Location / Volume Laterality Blood Venipuncture / 11/22/2019 2:05 11/22/2019 2:05 Unknown PM CDT PM CDT Narrative [facility] C[facility]AL [facility] - 11/23/2019 12:10 PM CDT Expected values for mensturating females Follicular Phase: 3.0-8.1 mIU/mL Mid-Cycle Peak: 2.6-16.7 mIU/mL Luteal Phase: 1.4-5.5 mIU/mL Post Menopausal Females without HRT: 26. 8-133.4 mIU/mL Keara Saul MD LAB_1 Performing Organization Address City/State/ZIP Code Phon e Number [facility] [address] [address] Estradiol (11/22/2019 2:05 PM CDT) athologist Signature Estradiol 38 pg/mL 11/23/2019 [facility] 12:10 PM T CENTRAL LAB Specimen Anatomical Collection Method / Collection Time Recei ching Time (Source) Location / Volume Laterality Blood Venipuncture / 11/22/2019 2:05 11/22/2019 2:05 Unknown PM CDT PM CDT Narrative [facility] - 11/23/2019 12:10 PM CDT The drug mifepristone may cause interference with the estradiol assay leading to significant falsely elevated estradiol results for up to two weeks following last dose. Expected values for menstruating females Follicular phase: 21-251 pg/mL Mid cycle phase: 38-649 pg/mL Luteal phase: 21-312 pg/mL Expected values for post menopausal fema les On HRT: <10-144 pg/mL Not on HRT: <10-28 pg/mL Keara Saul MD LAB_1 Performing Organization Address City/State/ZIP Code Phon e Number [facility] [address] [phone] documented in this encounter Visit Diagnoses Diagnosis Encounter for preconception consultation - Primary Vaginismus Dyspareunia in female Graves disease ([facility]) Toxic diffuse goiter without mention of thyrotoxic crisis or storm History of back surgery Other postprocedural status Thrombosis of left jugular vein Acute venous embolism and thrombosis of other specified veins documented in this encounter Care Teams Transition Advisor Relationship Specialty Start Date End Date Needs Pcp, Assignment PCP - General 07/07/17 12/12/19 [place] [address] documented as of this encounter
--- OUTSIDE RECORDS SUMMARY | 2022-06-23 17:54 | XMS_ITS | Encounter Summary ---
:1990 Author Organization [facility] Address [address] [place] [address] Care Team Providers Name Role Phone No Primary/Referring, Phy Primary Care Provider Unavailable Reason for Referral Procedure/Equipment (Routine) - Incomplete Specialty Diagnoses / Procedures Referred By Contact Refer red To Contact Diagnoses Sprain of left wrist, initial encounter Jayson Palmer PA-C Procedures Wrist brace without thumb ([id number]) [address] [facility] [address] [place] [address] Referral ID Status Reason Start Date Expiration Date Visits V isits Requested Authorized [id number] Incomplete 01/03/2021 04/04/2022 1 1 Reason for Visit Reason Comments Wrist/forearm Pain or Injury Encounter Details Date Type Department Care Team Description [facility]/02[facility] [facility] Orthopaedics & Sports PAAaliyah wrist, initial Medicine [address] [facility] encounter (Primary [address] Dx) [place] [phone] (Wo rk) Social History Tobacco Use Types Packs/Day Years Used Date Smoking Tobacco: Never Smokeless Tobacco: Never Alcohol Use Standard Drinks/Week Comments Not Currently 0 (1 standard drink = 0.6 oz pure alcoho l) Sex Assigned at Date Recorded Not on file documented as of this encounter Progress Notes Jayson Palmer PA-C - 01/02/2021 12:00 AM CDT NAME: DESTINEY HUFF CSN: [id number] CLINIC NOTE DATE OF SERVICE: 01/02/2021 : 1990 Destiney is a 30-year-old female who sustained a slip and fall injury 1 month ago. She was seen through [facility] originally, was placed in a cast due to the question of scaphoid injury. She was sent for an MRI, which was done at [facility]. She reports being called by [facility] andbeing told to come in and have the cast cut off. This was performed, but the patient was unable to be scheduled for followup and discussion of the MRI results for several weeks. She was able to get in to me sooner. She had her images and MRI report imported and comes in today for evaluation. The patient does have a 4-month-old child and is having some difficulty with childcare. She has been wearing asplint intermittently, but again comes in to discuss if there is anything further that needs to be done regarding her wrist and hand. EXAMINATION: Her left wrist does not reveal any soft tissue swelling or joint effusion. She can demonstrate full digital and wrist ranges of motion and has a normal neurovascular exam. MRI of the left wrist done at [facility] on December 20, 2020, is independently reviewed. Radiology report is also reviewed and given to the patient. Essentially, MRI is unremarkable. There is mild to moderate tenosynovitis involving the ECRL, ECRB, and ECU tendons. No evidence of tendon disruption. There is no evidence of bone marrow edema or fracture of the distal radius or scaphoid. The TFCC is intact. The volar scapholunate ligament shows sequelae of prior sprain injury, but no disruption, and no widening of the scapholunate space. ASSESSMENT: Left wrist sprain without evidence of significant underlying structural pathology. PLAN: The patient and I have reviewed the above and reviewed her MRI findings. I have recommended splint weaning and increase in activity as comfort allows. The patient states a good understanding and will follow up with me on an as-needed basis. CHELSEY MONTGOMERY/AQS /[id number] documented in this encounter Plan of Treatment Upcoming Encounters Date Type Specialty Care Team Description 07/04/2022 Appointment Otolaryngology Opal Richardson MD [address] [phone] (Wo rk) 07/22/2022 Appointment Endocrinology Lusi Daniel Bradley MBBS [address] [id number] documented as of this encounter Visit Diagnoses Diagnosis Sprain of left wrist, initial encounter - Primary documented in this encounter Care Teams Experimental Mechanic Relationship Specialty Start Date End Date No Primary/Referring, Phy PCP - General 12/13/19 documented as of this encounter
--- OUTSIDE RECORDS SUMMARY | 2022-06-23 17:54 | XMS_ITS | Encounter Summary ---
:1990 Author Organization [facility] Address [address], [place] [address] Care Team Providers Name Role Phone No Primary/Referring, Phy Primary Care Provider Unavailable Reason for Visit Reason Comments CONSULT Encounter Details Date Type Department Care Team Description 10/18/2020 Office Visit [facility] Vin Mckeon DO S/P section (Primary Dx); [address] [place] [address] [address] [phone] [place] [address] (Wo rk) Social History Tobacco Use Types Packs/Day Years Used Date Smoking Tobacco: Never Smokeless Tobacco: Never Alcohol Use Standard Drinks/Week Comments Not Currently 0 (1 standard drink = 0.6 oz pure alcoho l) Sex Assigned at Date Recorded Not on file documented as of this encounter Last Filed Vital Signs Vital Sign Reading Time Taken Comments Blood Pressure 110/69 10/18/2020 8:04 AM CDT Pulse 84 10/18/2020 8:04 AM CDT Temperature - - Respiratory Rate 13 10/18/2020 8:04 AM CDT Oxygen Saturation - - Inhaled Oxygen Concentration - - Weight - - Height - - Body Mass Index - - documented in this encounter Progress Notes Vin Mckeon DO - 10/18/2020 8:00 AM CDT Images from the original note were not included. NEUROLOGY CONSULTATION REQUESTING PHYSICIAN: Self-Referral, Patient REASON FOR CONSULTATION: Abdominal pulling, leg weakness HISTORY OF PRESENT ILLNESS: 29 yo F with PMH POTS presenting to the neurology clinic for evaluation for leg weakness and abdominal pain/pulling. History obtained from patient and chart. ~08/2020 patient had uncomplicated which led into a emergent section that require general anesthesia. No complications with mom or baby. Since then she reports that she is [...] the reason and therefore referred to Neurology. No prior issues with the legs, she reports that there isn't clear weakness. No significant back pain. PAST MEDICAL HISTORY: Patient Active Problem List Diagnosis ??? Thrombosis of left jugular vein ??? Hypermobility, syndrome ??? Paresthesia ??? Postural orthostatic tachycardia syndrome No past medical history on file. No past surgical history on file. SOCIAL HISTORY: Social History Tobacco Use ??? Smoking status: Never Smoker ??? Smokeless tobacco: Never Used Substance Use Topics ??? Alcohol use: Not Currently ??? Drug use: Not on file FAMILY HISTORY: No family history on file. ALLERGIES: Allergies Allergen Reactions ??? Cefzil [Cefprozil] Hives Hives, swelling of hands/feet ??? Penicillins Hives Hives, swelling of hands/feet ??? Cephalosporins ??? Ciprofloxacin ??? Ciprofloxacin Nerve pain ??? Penicillins PN: rash REVIEW OF SYSTEMS: Constitutional: negative Eyes: negative Respiratory: negative Cardiovascular: negative Gastrointestinal: negative Genitourinary:negative Hematologic/lymphatic: negative Musculoskeletal:abdominal muscle pulling Neurological: see HPI Behavioral/Psych: negative Endocrine: negative PHYSICAL EXAMINATION: Vitals: Vitals: 10/18/20 0804 BP: 110/69 Pulse: 84 Resp: 13 Estimated body mass index is 17.98 kg/m?? as calculated from the following: Height as of 08/21/18: 5' 6.5 (1.689 m). Weight as of 08/21/18: 113 lb 1.6 oz (51.3 kg). General appearance: well developed, well nourished, in no acute distress HEENT: Normocephalic, atraumatic, sclerae anicteric Neck: supple Lungs: normal respiratory effort Abdomen: nondistended Musculoskeletal: normal muscle bulk and tone Extremities: No cyanosis, clubbing or edema. Skin: No rashes, ulcerations or petechiae. Psych: Normal mood and affect NEUROLOGIC: Mental Status: alert. Speech clear without dysarthria. Follows commands appropriately. No aphasia. Mood and affect appropriate. Attention and memory intact. Cranial Nerves: Face symmetric, with symmetric smile. Hearing intact bilaterally. Motor: Tone normal. Strength 5/5 in all major muscle groups bilaterally. Coordination: No gross ataxia. No tremor. Sensory: Intact to light touch, temperature, and vibration throughout. Reflexes: 2+ and symmetric in the biceps, triceps, brachioradialis, patellar, and ankle. Gait: Narrow based, normal arm swing. Normal casual walk. Romberg is absent. LABS: 12/13/2019 Progesterone, FSH, Estradiol wnl IMAGIN08/17/2018: MRI lumbar spine no significant abnormality ASSESSMENT/PLAN: Left greater than right leg weakness with abdominal discomfort and pulling, status post . Suspect this is due to abdominal muscle weakness as leg strength appears intact. There is no abnormalities on examination in reflexes, strength, or sensation to suggest nerve or tendon related injuries. Discussed this with the patient that she can continue to rehabilitate as instructed by her OBGYN, andno clear concerning features to warrant further imaging or testing at this time. Thank you for the consultation, please contact me with any questions or concerns. Total time 45 minutes on patient visit, chart review, and documentation Vin Mckeon DO 10/18/2020 Neurologist [facility] documented in this encounter Plan of Treatment Upcoming Encounters Date Type Specialty Care Team Description 07/04/2022 Appointment Otolaryngology Opal Richardson MD [address] [id number] (Wo rk) 07/22/2022 Appointment Endocrinology Luis Daniel Bradley MBBS [address] [id number] documented as of this encounter Visit Diagnoses Diagnosis S/P section - Primary Other postprocedural status Abdominal weakness documented in this encounter Care Teams Knot Bumper Relationship Specialty Start Date End Date No Primary/Referring, Phy PCP - General 12/13/19 documented as of this encounter
--- OUTSIDE RECORDS SUMMARY | 2022-06-23 17:54 | XMS_ITS | Encounter Summary ---
:[address] [facility] Address [address] [address] Care Team Providers Name Role Phone No Primary/Referring, Phy Primary Care Provider Unavailable Reason for Visit Reason Comments LAB RESULTS Encounter Details Date Type Department Care Team Description 12/13/2019 Telephone [facility] Cindy Stephen MD LAB RESULTS Obstetrics and Gynec ology [address] [facility] [address] [place] [address] [place] [address] [phone] Social History Tobacco Use Types Packs/Day Years Used Date Smoking Tobacco: Never Smokeless Tobacco: Never Sex Assigned at Date Recorded Not on file documented as of this encounter Progress Notes Romana Parks RN - 12/15/2019 3:56 PM CDT Addended by: ROMANA PARKS on: 12/15/2019 03:56 PM Modules accepted: Orders documented in this encounter Nursing Notes Romana Parks RN - 12/16/2019 8:40 AM CDT Wil Cassidy [birth year] Mini registered Order placed and faxed to andrology. The need to call to arrange the appt. See husbands chart Romana Parks RN Romana Parks RN - 12/15/2019 3:48 PM CDT They would like to go forward with the S/A Testing I am calling back to get her husbands info to order the testing under his name. Cindy Stephen MD - 12/15/2019 7:57 AM CDT Technically at her age with ovulatory cycles they could try for up to a year before doing more work up (we sort of jumped the gun with her hormonal testing but I know she is worried about it) so I wantto her be assured that at this point there is nothing abnormal per se about the amount of time they have been trying but I know it is a test of patience. If he would like to do an SA he can, but if they also wanted to wait a few more months of trying and for COVID to settle down where he could do the test within [facility] just for logistic simplicity that would be ok too. Cindy Stephen MD oLr Caal RN - 12/14/2019 4:57 PM CDT Pt was informed. She wonders if her should have sperm testing They have been trying for about 6 months, it is unclear how many of those months she was using OPK. She has been having regular IC,every few days' around the time of ovulation per her kits. Please advise as to SA for , or should she keep trying for awhile? is Wil Cassidy and he does not appear to be in the [facility] system. Would need to get him in the system and follow the SA Covid process, which involves going to the [facility] for the test. (unless that has changed). Lor Caal RN Lor Caal RN - 12/14/2019 4:24 PM CDT Unable to reach pt by phone, sent her an email. (Her vm is full). Lor Caal RN Cindy Stephen MD - 12/14/2019 1:13 PM CDT Her progesterone level is 7 which indicates an ovulatory cycle so all is well. With progesterone it is actually better to have the blood work drawn a day or two later than having it done too early so no worries. Cindy Stephen MD Romana Parks RN - 12/13/2019 10:05 AM CDT The test was on day 24 because of the weekend and a later ovulation. She is wondering if the results will be inaccurate. She ovulates on day 15 or 16. She was instructed to do in on day 23 per Zafar. Nurse will route this to Dr Stephen for her recommendations Romana Parks RN documented in this encounter Plan of Treatment Upcoming Encounters Date Type Specialty Care Team Description 07/04/2022 Appointment Otolaryngology Opal Richardson MD [address] [id number] (Wo rk) 07/22/2022 Appointment Endocrinology Luis Daniel Bradley MBBS [address] [id number] documented as of this encounter Visit Diagnoses Diagnosis Encounter for preconception consultation - Primary documented in this encounter Care Teams Outsole Cementer Machine Relationship Specialty Start Date End Date No Primary/Referring, Phy PCP - General 12/13/19 documented as of this encounter
--- OUTSIDE RECORDS SUMMARY | 2022-06-23 17:54 | XMS_ITS | Encounter Summary ---
:1990 Author Organization [facility] Address [address] [place] [address] Care Team Providers Name Role Phone No Primary/Referring, Phy Primary Care Provider Unavailable Reason for Referral Therapies (Routine) - New Request Specialty Diagnoses / Procedures Referred By Contact Refer red To Contact Diagnoses Acute pain of right knee Loraine Rosales PA-C [address] [place] [address] Referral ID Status Reason Start Date Expiration Date Visits V isits Requested Authorized [id number] New Request 07/11/2021 07/11/2022 1 1 Scheduling Instructions Your provider has recommended an appoint ment with [facility]. To schedule your appointment, you may call [phone] or schedule online at [employer]/schedule. We suggest you call your health insurance company about your coverage and benefits for this appo intment. UTER TYPESETTER Reason for Visit Reason Comments Dry Eye dry eyes, mouth, and vagina x 2 weeks Knee Pain or Injury right knee x 2 weeks Encounter Details Date Type Department Care Team Description 07/11/2021 Office Visit [place] [id number] Loraine Rosales Acute pa in of right knee (Primary Dx); Family Medicine [facility] Dry eyes; [facility] Dry mouth; [place], [place] Vaginal dryne [id number] [phone] Social History Tobacco Use Types Packs/Day Years Used Date Smoking Tobacco: Never Smokeless Tobacco: Never Alcohol Use Standard Drinks/Week Comments Not Currently 0 (1 standard drink = 0.6 oz pure alcoho l) Sex Assigned at Date Recorded Not on file documented as of this encounter Last Filed Vital Signs Vital Sign Reading Time Taken Comments Blood Pressure 108/73 07/11/2021 2:20 PM COMPUTER TYPESETTER Pulse 79 07/11/2021 2:20 PM COMPUTER TYPESETTER Temperature - - Respiratory Rate 12 07/11/2021 2:20 PM COMPUTER TYPESETTER Oxygen Saturation - - Inhaled Oxygen Concentration - - Weight 64 kg (141 lb) 07/11/2021 2:20 PM COMPUTER TYPESETTER Height 168.9 cm (5' 6.5) 07/11/2021 2:20 PM COMPUTER TYPESETTER Body Mass Index 22.42 07/11/2021 2:20 PM COMPUTER TYPESETTER documented in this encounter Patient Instructions Patient InstructionsKiLoraine carolina PA-C - 07/11/2021 2:20 PM CST Here is plan below: 1) Start 600mg of ibuprofen every 6-8 hrs with food for 3-5 days for the need pain. 2) Use the Jarrod wrap for the next 3-5 days also when you are out and about and walking around a lot. 3) Ice the sore area for 15 min at least 2-3 times per day but especially if the knee is sore or swollen. 4) Call number below to follow up with physical therapy if pain persists, call if you want a referral to [facility] also if pain persists after PT. 5) Try the Systane eye drops for dry eye and the Biotene mouth wash for the dry mouth. Replens solution can help with the vaginal dryness also and follow up with your other providers on the thyroid issues. I'll notify you of your labs also and any follow up needed. Call with any questions or concerns in the meantime. Thanks, Loraine Rosales, PAC. UTER TYPESETTER documented in this encounter Progress Notes Loraine Rosales PA-C - 07/11/2021 2:20 PM CST Clinic Visit SUBJECTIVE: CC: Chief Complaint Patient presents with ??? Dry Eye dry eyes, mouth, and vagina x 2 weeks ??? Knee Pain or Injury right knee x 2 weeks History of Present Illness: Pt is here today for a few things. 1) She has been having dry mouth, eyes and vaginal dryness. For the past few weeks. She is 10 monthspost and stopped nursing about 3 months ago. She has hx of Graves in the past but after this her TSH is up and her free T3 and 4 are normal, thyroid ab test pending. She has gained weight also she says. Sees Dr. Ramsay at [facility] and is seeing Dr. Recinos for endocrinology and a functional medicine person out of [place] also, this person is the one that is checking her thyroid. Her dad has Raynauds but no other autoimmune issues. 2) R knee pain. She has been having R knee pain since her . Did some PT and that seemed to help but then about 2 weeks ago she was crawling on the floor with her baby and she got up and felt asharp shooting pain in her lateral R knee, was uncomfortable and then it went away but has been achythere when she walks on it ever since. It feels tender to touch but no pain with just sitting. She thinks maybe it had some slight swelling but no bruising. No hx of any other knee injuries. She hasn'ttried anything for it. She is only taking vitamins and Miralax. OBJECTIVE: Vital Signs: BP 108/73 (BP Location: Left Arm, BP Cuff Size: Large) Pulse 79 Resp 12 Ht 5' 6.5 (1.689 m) Wt 141 lb (64 kg) BMI 22.42 kg/m?? General: Pleasant in NAD. MS: No swelling or bruising of R knee vs L knee. Full ROM of b/l knees w/o crepitus. Negative Obdulio's, Antonette's, A/P drawer, valgus/varus stress. She is tender to palpation of R knee lateral patellaand R IT band area, lateral collateral is non-tender. Psych: Well dressed and groomed, normal affect. ASSESSMENT: Encounter Diagnoses Name Primary? Acute pain of right knee Yes ??? Dry eyes ??? Dry mouth ??? Vaginal dryness PLAN: Destiney was seen today for dry eye and knee pain or injury. Diagnoses and all orders for this visit: Acute pain of right knee - Physical Therapy Dry eyes - SSA 52 and 60 (Ro) (DESHAUN) Ab, IgG; Future Dry mouth - SSA 52 and 60 (Ro) (DESHAUN) Ab, IgG; Future - Anti SS-B (La); Future Vaginal dryness - Anti SS-B (La); Future Here is plan below: 1) Start 600mg of ibuprofen every 6-8 hrs with food for 3-5 days for the need pain. 2) Use the Jarrod wrap for the next 3-5 days also when you are out and about and walking around a lot. 3) Ice the sore area for 15 min at least 2-3 times per day but especially if the knee is sore or swollen. 4) Call number below to follow up with physical therapy if pain persists, call if you want a referral to [facility] also if pain persists after PT. 5) Try the Systane eye drops for dry eye and the Biotene mouth wash for the dry mouth. Replens solution can help with the vaginal dryness also and follow up with your other providers on the thyroid issues. I'll notify you of your labs also and any follow up needed. Call with any questions or concerns in the meantime. Thanks, Loraine Rosales, PAC. UTER TYPESETTER documented in this encounter Plan of Treatment Upcoming Encounters Date Type Specialty Care Team Description 07/04/2022 Appointment Otolaryngology Opal Richardson MD [address] [facility] N [address] (Wo rk) 07/22/2022 Appointment Endocrinology Luis Daniel Bradley MBBS [address] [facility] [address] [address] Scheduled Referrals Name Type Priority Associated Diagnoses Order S chedule Physical Therapy Referral Routine Acute pain of right knee Ordered: 07/11/2021 documented as of this encounter Results Anti SS-B ([place]) (07/11/2021 2:54 PM COMPUTER TYPESETTER) [facility] gist Method Time Signature Anti-SSB (La) 0.5 0.0 - 6.9 07/15/2021 [facility] Result U/mL 11:23 AM [facility]ENTRAL [facility] COMPUTER TYPESETTER Anti-SSB Negative Negative 07/15/2021 [facility] Interpretation 11:23 AM CENTRAL LAB COMPUTER TYPESETTER Specimen Anatomical Collection Method / Collection Time Recei ching Time (Source) Location / Volume Laterality Blood Venipuncture / 07/11/2021 2:54 07/11/2021 2:54 Unknown PM COMPUTER TYPESETTER PM COMPUTER TYPESETTER Loraine Rosales PA-C LAB_1 Performing Organization Address [facility] Phon e Number [facility] [address] [address] SSA 52 and 60 (Ro) (DESHAUN) Ab, IgG (07/11/2021 2:54 PM COMPUTER TYPESETTER) [facility] gist Method Time Signature Anti-SSA (RO) 0.5 0.0 - 6.9 07/15/2021 [facility] Result U/mL 11:23 AM CENTRAL LAB COMPUTER TYPESETTER Anti-SSA Negative Negative 07/15/2021 [facility] Interpretation 11:23 AM CENTRAL LAB COMPUTER TYPESETTER Specimen Anatomical Collection Method / Collection Time Recei ching Time (Source) Location / Volume Laterality Blood Venipuncture / 07/11/2021 2:54 07/11/2021 2:54 Unknown PM COMPUTER TYPESETTER PM COMPUTER TYPESETTER Loraine Rosales PA-C LAB_1 Performing Organization Address [facility] Phon e Number [facility] [address] [address] documented in this encounter Visit Diagnoses Diagnosis Acute pain of right knee - Primary Dry eyes Tear film insufficiency, unspecified Dry mouth Disturbance of salivary secretion Vaginal dryness Other specified symptom associated with female genital organs documented in this encounter Care Teams Nursing Surgical Services Director Relationship Specialty Start Date End Date No Primary/Referring, Phy PCP - General 12/13/19 documented as of this encounter
--- OUTSIDE RECORDS SUMMARY | 2022-06-23 17:54 | XMS_ITS | Encounter Summary ---
:1990 Author Organization [facility] Address [address] [place] [address] Care Team Providers Name Role Phone No Primary/Referring, Phy Primary Care Provider Unavailable Reason for Visit Reason Comments COVID Screening Encounter Details Date Type Department Care Team Description 11/21/2019 Telephone Careline Unassigned, Provider COVID Screening [address] [place], [place] [address] [place] [address] Social History Tobacco Use Types Packs/Day Years Used Date Smoking Tobacco: Never Smokeless Tobacco: Never Sex Assigned at Date Recorded Not on file documented as of this encounter Nursing Notes Eri Collier - 11/21/2019 8:09 AM CDT Initial Screening: Patient information Best number to contact patient: [phone] Reason for Visit: Other:lab In the last 14 days have you had close contact with a person known to have COVID-19 or been instructed to self-isolate? No Are symptoms urgent/emergent? No Do you have any of these symptoms (fever greater than 100, cough, shortness of breath or difficulty breathing, sore throat, new loss of smell, or new loss of taste)?No - close encounter and follow regular process documented in this encounter Plan of Treatment Upcoming Encounters Date Type Specialty Care Team Description 07/04/2022 Appointment Otolaryngology Opal Richardson MD [address] [id number] (Wo rk) 07/22/2022 Appointment Endocrinology Luis Daniel Bradley, AGRRETT [address] [address] documented as of this encounter Visit Diagnoses Not on filedocumented in this encounter Care Teams [place] Relationship Specialty Start Date End Date No Primary/Referring, Phy PCP - General 12/13/19 documented as of this encounter
--- OUTSIDE RECORDS SUMMARY | 2022-06-23 17:54 | XMS_ITS | Encounter Summary ---
:1990 [facility] [address], [place] [address] Care Team Providers Name Role Phone No Primary/Referring, Phy Primary Care Provider Unavailable Reason for Visit Reason Comments CONSULT Encounter Details Date Type Department Care Team Description 07/24/2021 Office Visit [facility] [address] [place] red hypothyroidism (Primary Dx); Endocrinology Eduardo Garcia MD H/O Graves' disease; [address] onic fatigue; [address] [place] [address] [phone] Social History Tobacco Use Types Packs/Day Years Used Date Smoking Tobacco: Never Smokeless Tobacco: Never Alcohol Use Standard Drinks/Week Comments Not Currently 0 (1 standard drink = 0.6 oz pure alcoho l) Sex Assigned at Date Recorded Not on file documented as of this encounter Last Filed Vital Signs Vital Sign Reading Time Taken Comments Blood Pressure 114/75 07/24/2021 2:22 PM [facility] Pulse 72 07/24/2021 2:22 PM [facility] Temperature - - Respiratory Rate - - Oxygen Saturation - - Inhaled Oxygen Concentration - - Weight 64 kg (141 lb) 07/24/2021 2:22 PM [facility] Height 170.2 cm (5' 7) 07/24/2021 2:22 PM [facility] Body Mass Index 22.08 07/24/2021 2:22 PM [facility] documented in this encounter Patient Instructions Patient InstructionsLois Carr MD - 07/24/2021 2:15 PM [facility] Fasting labs in the am 7-9 am in about 2 weeks. Video Visit 3 weeks- ok to do same day on 08/15 am 11:35 am ER documented in this encounter Progress Notes Cam Matthew RN - 07/24/2021 2:15 PM CST DAYAMI form signed by pt and faxed to the [facility] [place] at [phone]. ER Lois Carr MD - 07/24/2021 12:00 AM CST NAME: DESTINEY HUFF CSN: [id number] CLINIC NOTE DATE OF SERVICE: 07/24/2021 : 1990 HISTORY OF PRESENT ILLNESS: The patient is a 30-year-old female, accompanied by her , requesting a second opinion for thyroid dysfunction. She has been followed at the [facility] since 2016, presenting initially with symptoms of heart palpitations, insomnia and anxiety.She was diagnosed with Graves disease, July 20, 2019, with an undetectable TSH, elevated TPO antibodies at 36 and elevated TSI of 243. Ultrasound prior to that in 2018 showed no distinct nodule, but a heterogeneous thyroid gland. She was initially treated with propylthiouracil, but developed a rash,subsequently was treated with methimazole in 2019. She became later in 2019 with delivery in September of 2020. Patient was able to wean off methimazole during and her Graves disease went into remission. Throughout her , the patient was euthyroid. However, , patient reported a low TSH and then a month ago, she reported a high TSH in the 4 range. These labs are not available for review. The patient has concerns because she is feeling tired. She has had recent weight gain, states that her prepregnancy weight is about 120 pounds and she is over 20 pounds above that. She states her weight did get as low as 135 pounds last summer when her TSH was lower. At that time, she also had developed diarrhea and noted tenderness over her neck. Since then, GI symptomshave resolved. She still has some fullness and tenderness in her neck. She has difficulty losing weight. She states that her periods are monthly, but may come as much as 5 days early or 3 days late, which is also different from her baseline. Patient is no longer breast-feeding. PAST MEDICAL HISTORY: Positive for Graves disease, which went into remission during , starting in 2019, delivering in August 25 2020 via , history of stable pineal cyst noted on MRI at [facility] between 2013 and 2017, hypermobility syndrome, paresthesias, postural orthostatic tachycardia syndrome. MEDICATIONS: 1. Magnesium sulfate 240 mg daily. 2. Ferrous sulfate 325 mg daily. 3. Vitamin D 5000 international units daily. FAMILY HISTORY: Negative for any thyroid dysfunction. SOCIAL HISTORY: The patient is , has one [id number] child. 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 She is a nonsmoker. REVIEW OF SYSTEMS: Positive for fatigue, weight gain, otherwise complete review of systems either negative or noted in the HPI. EXAM: VITAL SIGNS: Blood pressure is 114/75, pulse 72, weight 141 pounds, height 5 feet 7 inches. GENERAL: Alert, oriented, well nourished. HEENT: Eyes: Conjunctiva clear, no lid lag or proptosis. NECK: Supple, thyroid is normal in size without palpable nodule or tenderness of the thyroid. However, the thyroid cricoid cartilage bilaterally is slightly tender to touch, no palpable masses. LUNGS: Clear to auscultation bilaterally. CARDIOVASCULAR: Regular rate and rhythm, normal S1, S2. MUSCULOSKELETAL: Normal gait and station, trace edema. SKIN: Warm, dry without rash. NEUROLOGIC: DTRs symmetric, no hand tremors. LABS: From [facility], April 09, 2020: During , TSH was 2.17, free T4 1.0. TSI was normal at 113%. October 17, 2020: TSH 2.14, free T4 1.0, free T3 3.6. November 20, 2020.TSH 1.63, free T4 1.17, free T3 3.6, TSI was less than 89%. Labs this past February and this past June of 2021 are not currently available for review, but per patient report, TSH was initially low and more recently elevated. ASSESSMENT: 1. Hypothyroidism, subclinical. Based on patient's history and , this is most likely the hypothyroid phase of subacute thyroiditis. 2. History of Graves disease based on antibodies has been in remission. Again, the low TSH most likely is due to subacute thyroiditis, given the lack of high Graves antibodies. 3. Fatigue, which may be multifactorial. The patient does report some decreased sleep, having an [id number]. 4. Irregular menses. Patient is concerned because she and her are considering another in the near future. PLAN: 1. I reviewed lab findings and thyroid pathophysiology. I would recommend in the next 2 weeks, whichwill be about at least 6 weeks from her previous labs, to recheck a TSH, free T4, free T3, TSI and TPO antibodies. We did discuss in thyroiditis that this generally would recover on its own,assuming normal antibodies and may take up to as much as 6 months to normalize. 2. In regard to fatigue, I encouraged patient to continue her vitamin D. We will check basic metabolic panel, CBC and a.m. cortisol ACTH. Patient had concerns regarding pituitary function. 3. We did discuss options for treating with thyroid hormone should the TSH persistently be elevated or should we find any elevated TPO antibodies. TSH ideally for should be under 2.5. 4. Follow up in the next 3 weeks to review labs and determine any need for treatment for future planning. In the meantime, we will also request most recent labs done this past month and during the summer from the [facility]. Total time 60 minutes with chart review, patient visit and coordination of care. MD REYNA PATRICK/SENAIT /[id number] ER documented in this encounter Plan of Treatment Upcoming Encounters Date Type Specialty Care Team Description 07/04/2022 Appointment Otolaryngology Opal Richardson MD [address] N [id number] (Wo rk) 07/22/2022 Appointment Endocrinology Luis Daniel Bradley [facility] [address] N [id number] documented as of this encounter Results Thyroperoxidase (TPO) Antibody (07/31/2021 8:25 AM [facility]) [facility] Method Time Signature Thyroperoxidase Ab 4 <=8 IU/ml 08/01/2021 [facility] NERS 9:40 AM [facility] Specimen Anatomical Collection Method / Collection Time Recei ching Time (Source) Location / Volume Laterality Blood Venipuncture / 07/31/2021 8:25 07/31/2021 8:25 Unknown AM [facility] AM [facility] Lois Carr MD LAB_1 Performing Organization Address City/State/[facility] Phon e Number [facility] [address] [address] Thyroid Stimulating Immunoglobulin (07/31/2021 8:25 AM [facility]) [facility] Method Time Signature Thyroid Stimulating 0.15 <=0.54 08/02/2021 [facility] Immunoglobulins IU/L 4:25 PM [facility] Comment: INTERPRETIVE INFORMATION: Thyroid Stimul ating [...] history, an d other findings. Performed By: N[facility] [address] [place] [id number] Flat Surfacer: Malorie Rueda MD Specimen Anatomical Collection Method / Collection Time Recei ching Time (Source) Location / Volume Laterality Blood Venipuncture / 07/31/2021 8:25 07/31/2021 8:25 Unknown AM [facility] AM [facility] Lois Carr MD LAB_1 Performing Organization Address City/State/ZIP Code Phon e Number [facility] [address] [place], [place] [phone] BMP (07/31/2021 8:25 AM [facility]) P athologist Signature Sodium 136 136 - 145 07/31/2021 [place] mmol/L 10:57 AM [facility] Potassium 4.2 3.5 - 5.1 07/31/2021 [place] mmol/L 10:57 AM [facility] Chloride 103 98 - 109 07/31/2021 [place] mmol/L 10:57 AM [facility] CO2 26 20 - 29 07/31/2021 [place] mmol/L 10:57 AM [facility] Anion Gap 7 7 - 16 07/31/2021 [place] mmol/L 10:57 AM [facility] Calcium 9.2 8.4 - 10.4 07/31/2021 [place] mg/dL 10:57 AM [facility] BUN 11 7 - 26 07/31/2021 [place] mg/dL 10:57 AM [facility] Creatinine 0.70 0.55 - 07/31/2021 [place] 1.02 mg/dL 10:57 AM [facility] GFR, Estimated >60 >60 07/31/2021 [place] mL/min/1.7 10:57 AM [facility] 3m2 Glucose 95 70 - 100 07/31/2021 [place] mg/dL 10:57 AM [facility] Comment: The given reference range is fo r the fasting state. Non-fasting reference range for glucose is 70 - 180 mg/dL. Hours Fasting 8 07/31/2021 10:57 AM [facility] Specimen Anatomical Collection Method / Collection Time Recei ching Time (Source) Location / Volume Laterality Blood Venipuncture / 07/31/2021 8:25 07/31/2021 8:25 Unknown AM [facility] AM [facility] Lois Carr MD LAB_1 Performing Organization Address City/State/ZIP Code Phon e Number [facility] [address] [place] [phone] [facility] [address] [place] [address], [phone] [facility] Prolactin (07/31/2021 8:25 AM [facility]) athologist Signature Prolactin 9.6 5.2 - 26.5 07/31/2021 [facility] ng/mL 3:47 PM [facility] Specimen Anatomical Collection Method / Collection Time Recei ching Time (Source) Location / Volume Laterality Blood Venipuncture / 07/31/2021 8:25 07/31/2021 8:25 Unknown AM [facility] AM [facility] Lois Carr MD LAB_1 Performing Organization Address City/[facility] Phon e Number [facility] [address] [place] [phone] Cortisol (07/31/2021 8:25 AM [facility]) athologist Signature Cortisol 12.0 2.9 - 19.4 07/31/2021 [facility] mcg/dL 3:57 PM [facility] Specimen Anatomical Collection Method / Collection Time Recei ching Time (Source) Location / Volume Laterality Blood Venipuncture / 07/31/2021 8:25 07/31/2021 8:25 Unknown AM [facility] AM [facility] Narrative [facility] - 07/31/2021 3:57 P M [facility] Expected values AM (before 10am): 3.7-19.4 mcg/dL PM (after 5pm): 2.9-17.3 mcg/dL Lois Carr MD LAB_1 Performing Organization Address City/[facility] Phon e Number [facility] [address] [place] [phone] ACTH (07/31/2021 8:25 AM [facility]) athologist Signature ACTH 15.6 7.2 - 63.3 08/02/2021 [facility] pg/mL 3:07 PM [facility] Comment: INTERPRETIVE INFORMATION: Adrenocorticot ropic Hormone Reference interval based on samples maciej ected between 7 a.m. and 10 a.m. ??No reference intervals establi shed for p.m. collections. ?? Pediatric reference values are the same as adults (Acta Paediatr Scand 1981;70:341-345). ??This assay zora sures intact ACTH 1-39; some types of synthetic ACTH and ACTH fr agments are not detected by this assay. Performed By: [facility] [address] [place] [id number] Flat Surfacer: Malorie Rueda MD Specimen Anatomical Collection Method / Collection Time Recei ching Time (Source) Location / Volume Laterality Blood Venipuncture / 07/31/2021 8:25 07/31/2021 8:25 Unknown AM [facility] AM [facility] Lois Carr MD LAB_1 Performing Organization Address [facility] Phon e Number [facility] [address] [place] [phone] Free T3, Serum (07/31/2021 8:25 AM [facility]) athologist Signature T3, Free 2.60 1.70 - 3.70 07/31/2021 [facility] pg/mL 3:57 PM [facility] Specimen Anatomical Collection Method / Collection Time Recei ching Time (Source) Location / Volume Laterality Blood Venipuncture / 07/31/2021 8:25 07/31/2021 8:25 Unknown AM [facility] AM [facility] Lois Carr MD LAB_1 Performing Organization Address [facility] Phon e Number [facility] [address] [place] [address] Free T4 (07/31/2021 8:25 AM [facility]) P athologist Signature T4, Free 0.90 0.70 - 1.50 07/31/2021 [facility] ng/dL 3:47 PM [facility] Specimen Anatomical Collection Method / Collection Time Recei ching Time (Source) Location / Volume Laterality Blood Venipuncture / 07/31/2021 8:25 07/31/2021 8:25 Unknown AM [facility] AM [facility] Lois Carr MD LAB_1 Performing Organization Address [facility] Phon e Number [facility] [address] [place] [address] TSH, Sensitive (07/31/2021 8:25 AM [facility]) P athologist Signature TSH, Sensitive 2.99 0.30 - 07/31/2021 [facility] 4.50 3:47 PM [facility] uIU/mL Specimen Anatomical Collection Method / Collection Time Recei ching Time (Source) Location / Volume Laterality Blood Venipuncture / 07/31/2021 8:25 07/31/2021 8:25 Unknown AM [facility] AM [facility] Lois Carr MD LAB_1 Performing Organization Address City/State/ZIP Code Phon e Number [facility] [address] [place] [address] documented in this encounter Visit Diagnoses Diagnosis Acquired hypothyroidism (HRC) - Primary Unspecified hypothyroidism H/O Graves' disease Personal history of other endocrine, met abolic, and immunity disorders Chronic fatigue Other malaise and fatigue Irregular menses Irregular menstrual cycle documented in this encounter Care Teams Medical Case Manager Relationship Specialty Start Date End Date No Primary/Referring, Phy PCP - General 12/13/19 documented as of this encounter
--- OUTSIDE RECORDS SUMMARY | 2022-06-23 17:54 | XMS_ITS | Encounter Summary ---
:[address] [facility] Address [address], [place] [address] Care Team Providers Name Role Phone No Primary/Referring, Phy Primary Care Provider Unavailable Encounter Details Date Type Department Care Team Description 01/07/2021 Orders Only Initial Department Provider, Gloria, [address] [place], [place] [address] Interface provider [phone] [place] [address] Social History Tobacco Use Types Packs/Day Years Used Date Smoking Tobacco: Never Smokeless Tobacco: Never Alcohol Use Standard Drinks/Week Comments Not Currently 0 (1 standard drink = 0.6 oz pure alcoho l) Sex Assigned at Date Recorded Not on file documented as of this encounter Plan of Treatment Upcoming Encounters Date Type Specialty Care Team Description 07/04/2022 Appointment Otolaryngology Opal Richardson MD [address] [facility] N [address] (Wo rk) 07/22/2022 Appointment Endocrinology Luis Daniel Bradley [facility] [address] [facility] N [address] documented as of this encounter Procedures Procedure Name Priority Date/Time Associated Diagnosis Comme nts MRI-SCAN 01/07/2021 Results for thi s procedure are in the resu lts section. documented in this encounter Results MRI-SCAN (01/07/2021) Anatomical Region Laterality Modality Other Narrative This result has an attachment that is no t available. Interface Provider MD JONES/OTHER/AR documented in this encounter Visit Diagnoses Not on filedocumented in this encounter Care Teams Nickel Plater Relationship Specialty Start Date End Date No Primary/Referring, Phy PCP - General 12/13/19 documented as of this encounter
--- OUTSIDE RECORDS SUMMARY | 2022-06-23 17:54 | XMS_ITS | Encounter Summary ---
:1990 [facility] Address [address], [place] [address] Care Team Providers Name Role Phone No Primary/Referring, Phy Primary Care Provider Unavailable Encounter Details Date Type Department Care Team Description 07/18/2021 Lab Visit [facility] with and Laboratory [place] [id number] [employer] covid-19 [place] [address] Social History Tobacco Use Types Packs/Day Years Used Date Smoking Tobacco: Never Smokeless Tobacco: Never Alcohol Use Standard Drinks/Week Comments Not Currently 0 (1 standard drink = 0.6 oz pure alcoho l) Sex Assigned at Date Recorded Not on file documented as of this encounter Plan of Treatment Upcoming Encounters Date Type Specialty Care Team Description 07/04/2022 Appointment Otolaryngology Opal Richardson MD [address] [facility] N [address] (Wo rk) 07/22/2022 Appointment Endocrinology Luis Daniel Bradley [facility] [address] [facility] N [address] documented as of this encounter Procedures Procedure Name Priority Date/Time Associated Comments Diagnosis 2019 NOVEL Routine 07/18/2021 4:30 PM Contact with and Resul ts for this CORONAVIRUS PRISONER CLASSIFICATION INTERVIEWER (suspected) procedure are i n exposure to the results covid-19 section. documented in this encounter Results Symptomatic - 2019 Novel Coronavirus (COVID-19) (07/18/2021 4:30 PM PRISONER CLASSIFICATION INTERVIEWER) [facility] Method Time Signature COVID-19 Not Not 07/21/2021 [facility] Interpretation Detected Detected 11:39 AM CENTRAL LAB PRISONER CLASSIFICATION INTERVIEWER Source Nares, left 07/21/2021 [facility] and right 11:39 AM CENTRAL LAB PRISONER CLASSIFICATION INTERVIEWER Specimen Anatomical Collection Method Collection Time Receive d Time (Source) Location / / Volume Laterality Swab (Source ENTIRE ANTERIOR Non-blood 07/18/2021 4:30 PM 2020 4:41 Required) NARIS / Unknown Collection / PRISONER CLASSIFICATION INTERVIEWER PM PRISONER CLASSIFICATION INTERVIEWER Unknown Narrative [facility] - 07/21/2021 11:39 AM PRISONER CLASSIFICATION INTERVIEWER Tested by Polymerase Chain Reaction (PCR ), [place]-mediated amplification (TMA), or another nucleic acid amplifica tion (NAAT) test. Andrews Aguilar MD LAB_1 Performing Organization Address City/State/ZIP Code Phon e Number [facility] [address] [address] documented in this encounter Visit Diagnoses Diagnosis Contact with and (suspected) exposure to covid-19 documented in this encounter Care Teams Warping Machine Operator Relationship Specialty Start Date End Date No Primary/Referring, Phy PCP - General 12/13/19 documented as of this encounter
--- OUTSIDE RECORDS SUMMARY | 2022-06-23 17:54 | XMS_ITS | Encounter Summary ---
:1990 [facility] Address [address], [place] [address] Care Team Providers Name Role Phone No Primary/Referring, Phy Primary Care Provider Unavailable Reason for Visit Reason Comments LAB RESULTS Encounter Details Date Type Department Care Team Description 12/29/2019 Telephone [facility] Cindy Stephen MD LAB RESULTS Obstetrics and Gynec ology [address] [facility] [address] [place] [address] [place] [address] [phone] Social History Tobacco Use Types Packs/Day Years Used Date Smoking Tobacco: Never Smokeless Tobacco: Never Sex Assigned at Date Recorded Not on file documented as of this encounter Nursing Notes Lor Caal RN - 01/02/2020 3:58 PM CDT Pt informed. No further questions today. Lor Caal RN Romana Guerrero RN - 01/02/2020 3:18 PM CDT Tried to call bu tthe mailbox is full and can't LM Will try again at a later time Romana Guerrero RN Cindy Stephen MD - 01/02/2020 11:28 AM CDT The morphology score we don't get worried about unless there are a very low number of total sperm, so no worries in their situation. The overall number, concentration, and motility are very much in thenormal range which are the most important parts for fertility. A majority of sperm naturally are deformed (and would have a bad morphology score) and so if there aren't many to begin with and most of them are poor on their morphology is a situation where inseminations may be needed. In their case I don't see any red flags. Cindy Stephen MD Teresa Griffiths RN - 12/30/2019 4:02 PM CDT Pt calling clinic again. Informed that message has been sent to Dr Stephen to review questions re: partner's SA (see message below). Informed that we will call patient once Dr Stephen reviews. Pt agreeable. Teresa Griffiths RN 12/30/2019, 4:10 PM Teresa Griffiths RN - 12/30/2019 8:46 AM CDT Pt returned call to clinic Dr Stephen's recommendations relayed. Pt has 1 question regarding partner's SA. Pt stated that the Morphology of SA was flagged abnormal. Reports that it was a 3 And normal is above 4. Requesting more clarification on this from Dr Stephen in regards to what this means and whether this is a red flag? Dr Stephen please advise. Teresa Griffiths RN 12/30/2019, 8:49 AM Teresa Griffiths RN - 12/30/2019 8:40 AM CDT Left message for patient to call clinic back. Teresa Griffiths RN 12/30/2019, 8:40 AM Cindy Stephen MD - 12/29/2019 4:17 PM CDT The copy of his SA was scanned in so I was able to look at it. Please relay this to them that all the testing we have done at this point does not show a reason at this time where I would expect that they would suffer any infertility. I know she wanted to make sure there were not any red flags since intercourse is painful in order to make sure that everything was as optimized as it can be and I would say they can go ahead and try on their own without any intervention at this time. Cindy Stephen MD Meche Sepulveda - 12/29/2019 1:56 PM CDT Results received, given to ALDO. Marsha Sepulveda 12/29/2019 1:56 PM Romana Guerrero RN - 12/29/2019 11:16 AM CDT This patient may find benefit in discussing her anxiety in terms of her fertility per the MD at the andrology lab She has called there 4 times today They will fax it here but the standard practice is for it to go through the lab so that its entered into the patient results. Results were faxed I will show the results to Dr Stephen when she is in clinic next Thursday. Hard copy Results are not yet in epic Romana Guerrero RN EMT Romana Guerrero RN - 12/29/2019 10:58 AM CDT Called and spoke with Wil He will check the fax number with his as we haven't seen anything. She will get back to me Romana Guerrero RN Delmy Pham - 12/29/2019 9:23 AM CDT Test Results What test are you calling about? FERTILITY SEMEN ANALYSIS FOR SPOUSE. [facility] FAXED OVER RESULTS THIS MORNING. WIL HUFF, : [birth year] IS SPOUSE. PLEASE CALL ALSO TO LET PT KNOW IF RESULTS WEREN'T RECEIVED. Who ordered it? Cindy Stephen MD Where was the test done? [facility] When did you have it done? 12/27/19 Is it okay to leave a detailed message on your voicemail? Yes For this medication, patient would like it filled at the pharmacy listed in Meds & Orders. [Professor Of Geography/Appt Center: Verify the pharmacy patient would like to use for this request is highlighted in blue in Pharmacy Selection under Meds & Orders] Is there anything else I can help you with today? Delmy Pham documented in this encounter Plan of Treatment Upcoming Encounters Date Type Specialty Care Team Description 07/04/2022 Appointment Otolaryngology Opal Richardson MD [address] [place] [address] [id number] (Wo rk) 07/22/2022 Appointment Endocrinology Luis Daniel Bradley MBBS [address] [facility] [address] [id number] documented as of this encounter Visit Diagnoses Not on filedocumented in this encounter Care Teams Processing Talc And Borate Supervisor Relationship Specialty Start Date End Date No Primary/Referring, Phy PCP - General 12/13/19 documented as of this encounter
--- OUTSIDE RECORDS SUMMARY | 2022-06-23 17:54 | XMS_ITS | Encounter Summary ---
:1990 Author Organization [facility] Address [address] [place] [address] Care Team Providers Name Role Phone No Primary/Referring, Phy Primary Care Provider Unavailable Reason for Referral Therapies (Routine) - New Request Specialty Diagnoses / Procedures Referred By Contact Refer red To Contact Physical Therapy Diagnoses Iliopsoas bursitis of left hip Justin Ramírez Br Physical Therapy [address] [facility] [address] [address] [place] [address] [place] [address] Referral ID Status Reason Start Date Expiration Date Visits V isits Requested Authorized [id number] New Request 08/12/2021 08/12/2022 999 999 Scheduling Instructions Your provider has recommended an appoint ment with [facility]. You can quickly make your appointment online at ELENZA/schedule. You can also call [phone] for help scheduling yo ur appointment. We suggest you call your health insurance company about your cove rage and benefits for this appointment. [employer] SERVICE TEAM MEMBER Reason for Visit Reason Comments GROIN PAIN Encounter Details Date Type Department Care Team Description 08/12/2021 Office Visit Justin Orozco Iliopsoas bursitis of Orthopaedics & Sports MD Stewart left hip (Primary Dx) Medicine [address] [address] [facility] [address] [place] [address] [phone] Social History Tobacco Use Types Packs/Day Years Used Date Smoking Tobacco: Never Smokeless Tobacco: Never Alcohol Use Standard Drinks/Week Comments Not Currently 0 (1 standard drink = 0.6 oz pure alcoho l) Sex Assigned at Date Recorded Not on file documented as of this encounter Progress Notes Justin Ramírez MD - 08/12/2021 9:00 AM CST Destiney Cassidy [id number] 1990 Date of Visit: 08/12/21 CONSULT Chief Complaint: Left hip pain History of Present Illness: Destiney Cassidy is a 30 y.o. female who presents for evaluation of left hip pain. She states that after her 10 months ago she had difficulty lifting her leg and felt a pull in the groin area when she tried to lift herself into bed. She states for 8 weeks she had to literally pull her leg up to get into bed by herself. After the 8 weeks the weakness improved but the pulling sensation still remains. She has seen three different OBGYN's for opinions on what could be causing this discomfort sheis having. Denies any numbness or tingling. She reports she has pain lifting up to ride her bike. She describes the pain as aching. The patient has a PMHx of thrombosis of left jugular vein, hypermobility syndrome, paresthesia, postural orthostatic tachycardia syndrome, H/O Graves' disease, acquired hypothyroidism. PSHx of tonsillectomy, wisdom teeth extraction, myringotomy insert tube bilateral, lumbar decompression. Past medical, social, family history, medications, and allergies were personally reviewed and as perthe intake form. Review of Systems: A complete 12-point review of systems is done today. This is notable for right hip pain, left jugular vein, hypermobility syndrome, paresthesia, postural orthostatic tachycardia syndrome, H/O Graves' disease, acquired hypothyroidism, tonsillectomy, wisdom teeth extraction, myringotomy insert tube bilateral, lumbar decompression. The remainder are negative. Physical Exam: GENERAL: This is a very pleasant 30 y.o. female in no apparent distress. Mood and affect is normal. Alert and oriented x3. VITALS: As per the EMR MUSCULOSKELETAL: Gait is normal Left hip/lower extremity: Irritability with resisted SLR. She is sore in the left groin. Anterolateral thigh sensation is normal. Full flexion. Internal rotation 65 degrees, non-irritable. External rotation 40 degrees, non-irritable. Assessment: Diagnosis and Associated Orders ICD-10-CM 1. Iliopsoas bursitis of left hip M70.72 Physical Therapy Plan: It is not exactly clear what caused Destiney's initial difficulty with hip flexion. She has very classic iliopsoas pattern as far as getting in and out of the car and going up and down stairs being difficult. She does have some discomfort but more of a weakness that is slowly improving over the years time since her . She states she had no weakness in that left hip prior to her . She has a little bit of lower abdominal discomfort on the left side close to the far lateral aspect of thescar which sounds a little bit nerve related such as perhaps some trapped scar in the fascial closure portion but it is not dramatic portion of her discomfort or difficulty. I have told her it is possible that hematoma into the iliopsoas region at the time of surgery could have caused some of her symptoms. Most of the innervation of the iliopsoas comes from the lumbar roots and so it is highly unlikely that those are damaged during surgery. The important point here is that the patient is making someprogress. We will get her into therapy to try to make more progress. Iontophoresis to her left groinmight be helpful. I want to have her call me if she wants to schedule an MRI scan because of persistent symptoms and we can consider looking into the anatomic structures involved in a bit more detail if that becomes necessary. CC: Kimberly Ramsay MD [address] [place] [address] Zara Galindo MD?? [address] [place], [place] [address]?? Scribe Disclosure: Scribed for Justin Ramírez MD by [place] [employer] Operations Officer. I, Justin Ramírez MD, have personally reviewed and agree with the information entered by the Scribe. [employer] SERVICE TEAM MEMBER documented in this encounter Plan of Treatment Upcoming Encounters Date Type Specialty Care Team Description 07/04/2022 Appointment Otolaryngology Opal Richardson MD [address] [id number] (Wo rk) 07/22/2022 Appointment Endocrinology Luis Daniel Bradley MBBS [address] N [phone] Scheduled Referrals Name Type Priority Associated Diagnoses Order S chedule Physical Therapy Referral Routine Iliopsoas bursitis of le ft hip Ordered: 08/12/2021 documented as of this encounter Visit Diagnoses Diagnosis Iliopsoas bursitis of left hip - Primary documented in this encounter Care Teams Shirt Closer Relationship Specialty Start Date End Date No Primary/Referring, Phy PCP - General 12/13/19 documented as of this encounter
--- OUTSIDE RECORDS SUMMARY | 2022-06-23 17:54 | XMS_ITS | Encounter Summary ---
:1990 [facility] Address [address], [place] [address] Care Team Providers Name Role Phone Needs Pcp, Assignment Primary Care Provider Reason for Visit Reason Comments Lab Orders Needed Prior Authorization For Medication Encounter Details Date Type Department Care Team Description 11/21/2019 Telephone [facility] for Cindy Stephen I, Lab Orders Needed; Women Obstetrics and MD Prior Authorization For Gynecology [address] [facility] Medication [address] [place] [address] [place] [address] [phone] Social History Tobacco Use Types Packs/Day Years Used Date Smoking Tobacco: Never Smokeless Tobacco: Never Sex Assigned at Date Recorded Not on file documented as of this encounter Nursing Notes Lor Caal RN - 11/21/2019 3:22 PM CDT Pt was informed regarding lab tests. She will try OTC rectal cream, as discussed, and let us know ifproblems. Brand name is Recticare Hemorrhoidal cream. Lor Caal RN Cindy Stephen MD - 11/21/2019 3:08 PM CDT Yes on both accounts. If she does ovulate a little bit later than day 14 I will probably have her come in on at more like day 25 for her progesterone and I can order it after her estradiol and FSH are resulted. In the past I have had orders for it in place at the same time as her estradiol and FSH buthave had it drawn to early if the lab does not catch the note that they should not be drawn at the same time. So, once I have the estradiol and FSH orders we can order the progesterone As far as trying the rectal cream instead I am also definitely okay with that. The issues with coverage of lidocaine are surprising but everything is changing all the time with insurance! Sometimes creams can be irritating to skin as they do have alcohol in them such that if this cream causes pain it may be enough for us to say we have tried an alternative and has not worked and we may have better luck then getting the ointment covered Cindy Stephen MD Lor Caal RN - 11/21/2019 2:10 PM CDT Destiney would like to check Day 21 Progesterone when the time is right. She is using OPKs and thinks she ovulates anywhere from day 15 to about Day 17, therefore she's thinking that Day 21 should actually be a bit later, due to longer cycle. When do you recommend Progesterone lab? Ok to order? Of note, we are working on getting alternate for her Lidocaine preparation covered. We have not tried a formal PA request yet - doubtful that it would be covered even with a PA. Pharmacist says lisa yang is covered, and she tried many different options. Pharmacist suggests trying a 5% Lidocaine rectal cream, available OTC, costing about 20.00. Would you be ok with this? Anticipating that pt maynot accept this without MD's blessing. Lor Caal RN Romana Guerrero RN - 11/21/2019 12:56 PM CDT Called unable to LM mailbox is full Nurse to try again later Romana Guerrero RN Meche Sepulveda - 11/21/2019 11:15 AM CDT Patient is calling back for status of message. Also inquiring about how to calculate her third day of cycle for labs tomorrow. Please advise Marsha Sepulveda 11/21/2019 11:15 AM Meche Sepulveda - 11/21/2019 8:14 AM CDT Med Questions: [Bag Maker: If this call is after 3:00 p.m., communicate to patient: If we are not able to get back to you by the end of the day and your symptoms worsen, please contact the CareLine at [phone] OR .] What medication are you calling about? lidocaine (XYLOCAINE) 5 % ointment Who prescribed it? Dr. Stephen What is your questions or concern? Patient's insurance does not cover current rx. Please advise alternative and/or confirm starting PA. What is a good number to reach you at? Home/mobile. Patient will be unavailable (in a meeting) from 08:45am-09:30am. Is it okay to leave a detailed message on your voicemail? Yes If a prescription is needed, would you like it filled at our Pharmacy? No: [facility] pharmacy [Bag Maker: Please add the selected pharmacy to Night Manager.] Is there anything else I can help you with today? Yes. Patient is also asking to check her LH and progesterone on day 21. Please advise orders. Meche Sepulveda Please route to: Care Team Pool documented in this encounter Plan of Treatment Upcoming Encounters Date Type Specialty Care Team Description 07/04/2022 Appointment Otolaryngology Opal Richardson MD [address] [place] [id number] (Wo rk) 07/22/2022 Appointment Endocrinology Luis Daniel Bradley, GARRETT [address] [facility] [id number] documented as of this encounter Visit Diagnoses Not on filedocumented in this encounter Care Teams Window Maker Relationship Specialty Start Date End Date Needs Pcp, Assignment PCP - General 07/07/17 12/12/19 [place] [address] documented as of this encounter
--- OUTSIDE RECORDS SUMMARY | 2022-06-23 17:54 | XMS_ITS | Encounter Summary ---
:1990 Author Organization [facility] Address [address] [address] Care Team Providers Name Role Phone No Primary/Referring, Phy Primary Care Provider Unavailable Reason for Visit Reason Comments Forms Medical records Encounter Details Date Type Department Care Team Description 08/02/2021 Telephone [facility] [address] (Medical Endocrinology MD Radha records) [address] [place] [phone] (Wo rk) Social History Tobacco Use Types Packs/Day Years Used Date Smoking Tobacco: Never Smokeless Tobacco: Never Alcohol Use Standard Drinks/Week Comments Not Currently 0 (1 standard drink = 0.6 oz pure alcoho l) Sex Assigned at Date Recorded Not on file documented as of this encounter Nursing Notes Elva Tellez - 08/02/2021 8:52 AM CST Received medical records, placed in Dr. Carr's mailbox. ER ASSEMBLER documented in this encounter Plan of Treatment Upcoming Encounters Date Type Specialty Care Team Description 07/04/2022 Appointment Otolaryngology Opal Richardson MD [address] [facility] N [id number] (Wo rk) 07/22/2022 Appointment Endocrinology Luis Daniel Bradley, GARRETT [address] [facility] [address] [id number] documented as of this encounter Visit Diagnoses Not on filedocumented in this encounter Care Teams Chemical Technician Relationship Specialty Start Date End Date No Primary/Referring, Phy PCP - General 12/13/19 documented as of this encounter
--- OUTSIDE RECORDS SUMMARY | 2022-06-23 17:54 | XMS_ITS | Encounter Summary ---
:1990 Author Organization [facility] Address [address] [place] [address] Care Team Providers Name Role Phone No Primary/Referring, Phy Primary Care Provider Unavailable Reason for Visit Procedure/Equipment (Routine) - Incomplete Specialty Diagnoses / Procedures Referred By Contact Refer red To Contact Procedures Provider, Foreign Images Foreign Image(S) XR Knee [address] [place] [address] Referral ID Status Reason Start Date Expiration Date Visits V isits Requested Authorized [id number] Incomplete 07/16/2021 10/15/2022 1 1 Encounter Details Date Type Department Care Team Description 03/20/2021 Ancillary Procedure [facility] Radiology PACS Provider, [address] [address] [place] [address] Social History Tobacco Use Types Packs/Day Years Used Date Smoking Tobacco: Never Smokeless Tobacco: Never Alcohol Use Standard Drinks/Week Comments Not Currently 0 (1 standard drink = 0.6 oz pure alcoho l) Sex Assigned at Date Recorded Not on file documented as of this encounter Plan of Treatment Upcoming Encounters Date Type Specialty Care Team Description 07/04/2022 Appointment Otolaryngology Opal Richardson MD [address] [facility] N [id number] (Wo rk) 07/22/2022 Appointment Endocrinology Luis Daniel Bradley MBBS [address] [facility] [address] [id number] documented as of this encounter Procedures Procedure Name Priority Date/Time Associated Diagnosis Comme nts FOREIGN IMAGE(S) XR Routine 03/20/2021 2:30 PM Re sults for this KNEE BILAT CDT procedure are i n the results section. documented in this encounter Results Foreign Image(S) XR Knee Bilat (03/20/2021 2:30 PM CDT) Specimen (Source) Anatomical Location Collection Method / Collectio n Time Received Time / Laterality Volume Narrative POCT - 07/16/2021 2:27 PM PUNCH PRESS OPERATOR HELPER These outside images have been uploaded into PACS. If the results were provided, they will be located in the lavinia mulligan's chart under the Media or Imaging tab. Foreign Images Provider RAD NON-REPORTABLES Performing Organization Address City/State/ZIP Code Phon e Number POCT documented in this encounter Visit Diagnoses Not on filedocumented in this encounter Care Teams New Product Trainer Relationship Specialty Start Date End Date No Primary/Referring, Phy PCP - General 12/13/19 documented as of this encounter
--- OUTSIDE RECORDS SUMMARY | 2022-06-23 17:54 | XMS_ITS | Encounter Summary ---
:1990 Author Organization [facility] Address [address] [place] [address] Care Team Providers Name Role Phone No Primary/Referring, Phy Primary Care Provider Unavailable Reason for Visit Reason Comments COVID Screening Encounter Details Date Type Department Care Team Description 12/13/2019 Telephone [place] Family Unknown, Opal tran COVID Screening Practice [address] [facility] [address] [place] [address] [place], [place] [address] [phone] Social History Tobacco Use Types Packs/Day Years Used Date Smoking Tobacco: Never Smokeless Tobacco: Never Sex Assigned at Date Recorded Not on file documented as of this encounter Nursing Notes Lynsey Browne - 12/13/2019 7:40 AM CDT Initial Screening: Patient information Best number to contact patient: [phone] ?? Reason for Call: COVID Screening/Testing Request In the last 14 days have you had close contact with a person known to have COVID-19 or been instructed to self-isolate? No Are symptoms urgent/emergent? No Do you have any of these symptoms? If none of the them - Close encounter and follow regular process documented in this encounter Plan of Treatment Upcoming Encounters Date Type Specialty Care Team Description 07/04/2022 Appointment Otolaryngology Opal Richardson MD [address] [id number] (Wo rk) 07/22/2022 Appointment Endocrinology Luis Daniel Bradley, MBBS [address] [facility] [address] [id number] documented as of this encounter Visit Diagnoses Not on filedocumented in this encounter Care Teams Poultry Farmer Relationship Specialty Start Date End Date No Primary/Referring, Phy PCP - General 12/13/19 documented as of this encounter
--- OUTSIDE RECORDS SUMMARY | 2022-06-23 17:54 | XMS_ITS | Encounter Summary ---
:1990 Author Organization [facility] Address [address] [place] [address] Care Team Providers Name Role Phone Needs Pcp, Assignment Primary Care Provider Reason for Visit Reason Comments APPOINTMENT REQUEST Encounter Details Date Type Department Care Team Description 01/27/2019 [facility] [address] [place] [address] [phone] Social History Tobacco Use Types Packs/Day Years Used Date Smoking Tobacco: Never Smokeless Tobacco: Never Sex Assigned at Date Recorded Not on file documented as of this encounter Nursing Notes Rubin Chan - 01/27/2019 9:37 AM CDT Pt called stating that her physical therapist Niyah (pt did not know last name) from [facility] in [place] referred her to see Nancy Blanchard. Pt states Niyah told her she would call MP to discuss this and the pt hasn't heard anything. Nancy Lerma, Are you aware of this pt? Please let us know where appropriate to schedule and route back to the Interventional Pain Salesperson Wigs/General pool. Thank you. Rubin Chan documented in this encounter Plan of Treatment Upcoming Encounters Date Type Specialty Care Team Description 07/04/2022 Appointment Otolaryngology Opal Richardson MD [address] [facility] [address] [address] (Wo rk) 07/22/2022 Appointment Endocrinology Luis Daniel Bradley MBBS [address] [facility] [place] [address] [address] documented as of this encounter Visit Diagnoses Not on filedocumented in this encounter Care Teams Shower Room Attendant Relationship Specialty Start Date End Date Needs Pcp, Assignment PCP - General 07/07/17 12/12/19 [place] [address] documented as of this encounter
--- OUTSIDE RECORDS SUMMARY | 2022-06-23 17:54 | XMS_ITS | Encounter Summary ---
:1990 Author Organization [facility] Address [address] [place] [address] Care Team Providers Name Role Phone No Primary/Referring, Phy Primary Care Provider Unavailable Encounter Details Date Type Department Care Team Description 07/31/2021 Lab Visit [facility] Acquired hypothyroidism; [address] [address] Chronic fatigue; [place] [address] Irregular menses; [phone] H/O Graves' dis ease Social History Tobacco Use Types Packs/Day Years Used Date Smoking Tobacco: Never Smokeless Tobacco: Never Alcohol Use Standard Drinks/Week Comments Not Currently 0 (1 standard drink = 0.6 oz pure alcoho l) Sex Assigned at Date Recorded Not on file documented as of this encounter Plan of Treatment Upcoming Encounters Date Type Specialty Care Team Description 07/04/2022 Appointment Otolaryngology Opal Richardson MD [address] [facility] [address] [address] (Wo rk) 07/22/2022 Appointment Endocrinology Luis Daniel Bradley MBBS [address] [place] [place] [address] [address] documented as of this encounter Procedures Procedure Name Priority Date/Time Associated Diagnosis Comme nts CBC AND DIFFERENTIAL Routine 07/31/2021 8:25 Acquired Resu lts for this PANEL AM ART EDUCATION PROFESSOR hypothyroidism procedure are in Chronic fatigue the results section. THYROID STIMULATING Routine 07/31/2021 8:25 H/O Graves' diseas e Results for this IMMUNOGLOBULIN AM ART EDUCATION PROFESSOR procedure are in the results section. ACTH Routine 07/31/2021 8:25 Acquired Results for this AM ART EDUCATION PROFESSOR hypothyroidism procedure are in Chronic fatigue the results section. T3, FREE Routine 07/31/2021 8:25 Acquired Results for this AM ART EDUCATION PROFESSOR hypothyroidism procedure are in the results section. COMPLETE BLOOD Routine 07/31/2021 8:25 Acquired Results fo r this COUNT-W/DIFF AM ART EDUCATION PROFESSOR hypothyroidism procedure are in Chronic fatigue the results section. TSH, SENSITIVE Routine 07/31/2021 8:25 Acquired Results fo r this AM ART EDUCATION PROFESSOR hypothyroidism procedure are in the results section. BASIC METABOLIC PANEL Routine 07/31/2021 8:25 Acquired Res ults for this AM ART EDUCATION PROFESSOR hypothyroidism procedure are in Chronic fatigue the results section. FREE T4 Routine 07/31/2021 8:25 Acquired Results for this AM ART EDUCATION PROFESSOR hypothyroidism procedure are in the results section. CORTISOL Routine 07/31/2021 8:25 Acquired Results for this AM ART EDUCATION PROFESSOR hypothyroidism procedure are in Chronic fatigue the results section. ANTITHYROID PEROXIDASE Routine 07/31/2021 8:25 Acquired Re sults for this AM ART EDUCATION PROFESSOR hypothyroidism procedure are in the results section. PROLACTIN Routine 07/31/2021 8:25 Acquired Results for this AM ART EDUCATION PROFESSOR hypothyroidism procedure are in Irregular menses the results section. documented in this encounter Results Complete Blood Count-W/Diff (07/31/2021 8:25 AM ART EDUCATION PROFESSOR) P athologist Signature WBC 5.6 3.5 - 10.5 07/31/2021 [facility] x10(9)/L 8:55 AM ART EDUCATION PROFESSOR RBC 4.79 3.90 - 07/31/2021 [facility] 5.03 8:55 AM ART EDUCATION PROFESSOR x10(12)/L Hemoglobin 14.2 12.0 - 07/31/2021 [facility] 15.5 g/dL 8:55 AM ART EDUCATION PROFESSOR HCT 42.7 34.9 - 07/31/2021 [facility] 44.5 % 8:55 AM ART EDUCATION PROFESSOR MCV 89.1 80.0 - 07/31/2021 [facility] 100.0 fL 8:55 AM ART EDUCATION PROFESSOR MCH 29.6 27.6 - 07/31/2021 [facility] 33.3 pg 8:55 AM ART EDUCATION PROFESSOR MCHC 33.3 31.5 - 07/31/2021 [facility] 35.2 g/dL 8:55 AM ART EDUCATION PROFESSOR RDW 12.6 11.9 - 07/31/2021 [facility] 15.5 % 8:55 AM ART EDUCATION PROFESSOR Platelets 292 150 - 450 07/31/2021 [facility] x10(9)/L 8:55 AM ART EDUCATION PROFESSOR Neutrophil 3.4 1.7 - 7.0 07/31/2021 [facility] Absolute 10(9)/L 8:55 AM ART EDUCATION PROFESSOR Lymphocyte 1.4 1.0 - 4.8 07/31/2021 [facility] Absolute 10(9)/L 8:55 AM ART EDUCATION PROFESSOR Monocytes 0.5 0.2 - 0.9 07/31/2021 [facility] Absolute 10(9)/L 8:55 AM ART EDUCATION PROFESSOR Eosinophil 0.2 0.0 - 0.5 07/31/2021 [facility] Absolute 10(9)/L 8:55 AM ART EDUCATION PROFESSOR Basophil 0.1 0.0 - 0.3 07/31/2021 [facility] Absolute 10(9)/L 8:55 AM ART EDUCATION PROFESSOR Immature Gran % 0.2 0.0 - 0.5 07/31/2021 [facility] % 8:55 AM ART EDUCATION PROFESSOR Specimen Anatomical Collection Method / Collection Time Recei ching Time (Source) Location / Volume Laterality Blood Venipuncture / 07/31/2021 8:25 07/31/2021 8:25 Unknown AM ART EDUCATION PROFESSOR AM ART EDUCATION PROFESSOR Lois Carr MD LAB_1 Performing Organization Address City/[facility]/ZIP Code Phon e Number [facility] [address] [place] [address] Thyroperoxidase (TPO) Antibody (07/31/2021 8:25 AM ART EDUCATION PROFESSOR) [facility] Method Time Signature Thyroperoxidase Ab 4 <=8 IU/ml 08/01/2021 [facility] NERS 9:40 AM ART EDUCATION PROFESSOR CEN[facility]AL [facility] Specimen Anatomical Collection Method / Collection Time Recei ching Time (Source) Location / Volume Laterality Blood Venipuncture / 07/31/2021 8:25 07/31/2021 8:25 Unknown AM ART EDUCATION PROFESSOR AM ART EDUCATION PROFESSOR Lois Carr MD LAB_1 Performing Organization Address City/[facility]/ZIP Code Phon e Number [facility]AL [facility] [address] [phone] Thyroid Stimulating Immunoglobulin (07/31/2021 8:25 AM ART EDUCATION PROFESSOR) Patholo gist Method Time Signature Thyroid Stimulating 0.15 <=0.54 08/02/2021 [facility] Immunoglobulins IU/L 4:25 PM ART EDUCATION PROFESSOR LABORATORIES Comment: INTERPRETIVE INFORMATION: Thyroid Stimul ating [...] history, an d other findings. Performed By: [facility] [address] [place] [address] Mill Operator: Malorie Rueda MD Specimen Anatomical Collection Method / Collection Time Recei ching Time (Source) Location / Volume Laterality Blood Venipuncture / 07/31/2021 8:25 07/31/2021 8:25 Unknown AM ART EDUCATION PROFESSOR AM ART EDUCATION PROFESSOR Lois Carr MD LAB_1 Performing Organization Address City/State/ZIP Code Phon e Number [facility] [address] [place] [phone] [facility] (07/31/2021 8:25 AM ART EDUCATION PROFESSOR) P athologist Signature Sodium 136 136 - 145 07/31/2021 [place] mmol/L 10:57 AM ART EDUCATION PROFESSOR LABORATORY Potassium 4.2 3.5 - 5.1 07/31/2021 [place] mmol/L 10:57 AM ART EDUCATION PROFESSOR LABORATORY Chloride 103 98 - 109 07/31/2021 [place] mmol/L 10:57 AM ART EDUCATION PROFESSOR LABORATORY CO2 26 20 - 29 07/31/2021 [place] mmol/L 10:57 AM ART EDUCATION PROFESSOR LABORATORY Anion Gap 7 7 - 16 07/31/2021 [place] mmol/L 10:57 AM ART EDUCATION PROFESSOR LABORATORY Calcium 9.2 8.4 - 10.4 07/31/2021 [place] mg/dL 10:57 AM ART EDUCATION PROFESSOR LABORATORY BUN 11 7 - 26 07/31/2021 [place] mg/dL 10:57 AM ART EDUCATION PROFESSOR LABORATORY Creatinine 0.70 0.55 - 07/31/2021 [place] 1.02 mg/dL 10:57 AM ART EDUCATION PROFESSOR LABORATORY GFR, Estimated >60 >60 07/31/2021 [place] mL/min/1.7 10:57 AM ART EDUCATION PROFESSOR LABORATORY 3m2 Glucose 95 70 - 100 07/31/2021 [place] mg/dL 10:57 AM ART EDUCATION PROFESSOR LABORATORY Comment: The given reference range is fo r the fasting state. Non-fasting reference range for glucose is 70 - 180 mg/dL. Hours Fasting 8 07/31/2021 10:57 AM ART EDUCATION PROFESSOR [facility] Specimen Anatomical Collection Method / Collection Time Recei ching Time (Source) Location / Volume Laterality Blood Venipuncture / 07/31/2021 8:25 07/31/2021 8:25 Unknown AM ART EDUCATION PROFESSOR AM ART EDUCATION PROFESSOR Lois Carr MD LAB_1 Performing Organization Address City/State/ZIP Code Phon e Number [facility] [address] [place] [address] [facility] [address] [place] [address], [phone] [facility] Prolactin (07/31/2021 8:25 AM ART EDUCATION PROFESSOR) P athologist Signature Prolactin 9.6 5.2 - 26.5 07/31/2021 [place] ng/mL 3:47 PM ART EDUCATION PROFESSOR LABORATORY Specimen Anatomical Collection Method / Collection Time Recei ching Time (Source) Location / Volume Laterality Blood Venipuncture / 07/31/2021 8:25 07/31/2021 8:25 Unknown AM ART EDUCATION PROFESSOR AM ART EDUCATION PROFESSOR Lois Carr MD LAB_1 Performing Organization Address City/State/ZIP Code Phon e Number [facility] [address] [place] [address] Cortisol (07/31/2021 8:25 AM ART EDUCATION PROFESSOR) P athologist Signature Cortisol 12.0 2.9 - 19.4 07/31/2021 [place] mcg/dL 3:57 PM ART EDUCATION PROFESSOR LAB[facility]ATORY Specimen Anatomical Collection Method / Collection Time Recei ching Time (Source) Location / Volume Laterality Blood Venipuncture / 07/31/2021 8:25 07/31/2021 8:25 Unknown AM ART EDUCATION PROFESSOR AM ART EDUCATION PROFESSOR Narrative [facility] - 07/31/2021 3:57 P M ART EDUCATION PROFESSOR Expected values AM (before 10am): 3.7-19.4 mcg/dL PM (after 5pm): 2.9-17.3 mcg/dL Lois Carr MD LAB_1 Performing Organization Address City/[facility] Phon e Number [facility] [address] [place] [address] ACTH (07/31/2021 8:25 AM ART EDUCATION PROFESSOR) athologist Signature ACTH 15.6 7.2 - 63.3 08/02/2021 [facility] pg/mL 3:07 PM ART EDUCATION PROFESSOR Comment: INTERPRETIVE INFORMATION: Adrenocorticot ropic Hormone Reference [...] not detected by this assay. Performed By: [facility] [address] [place] [address] Mill Operator: Malorie Rueda MD Specimen Anatomical Collection Method / Collection Time Recei ching Time (Source) Location / Volume Laterality Blood Venipuncture / 07/31/2021 8:25 07/31/2021 8:25 Unknown AM ART EDUCATION PROFESSOR AM ART EDUCATION PROFESSOR Lois Carr MD LAB_1 Performing Organization Address [facility] Phon e Number [facility] [address] [place], [place] [phone] Free T3, Serum (07/31/2021 8:25 AM ART EDUCATION PROFESSOR) athologist Signature T3, Free 2.60 1.70 - 3.70 07/31/2021 [place] pg/mL 3:57 PM ART EDUCATION PROFESSOR LABORATORY Specimen Anatomical Collection Method / Collection Time Recei ching Time (Source) Location / Volume Laterality Blood Venipuncture / 07/31/2021 8:25 07/31/2021 8:25 Unknown AM ART EDUCATION PROFESSOR AM ART EDUCATION PROFESSOR Lois Carr MD LAB_1 Performing Organization Address [facility] Phon e Number [facility] [address] [place] [address] Free T4 (07/31/2021 8:25 AM ART EDUCATION PROFESSOR) P athologist Signature T4, Free 0.90 0.70 - 1.50 07/31/2021 [place] ng/dL 3:47 PM ART EDUCATION PROFESSOR LABORATORY Specimen Anatomical Collection Method / Collection Time Recei ching Time (Source) Location / Volume Laterality Blood Venipuncture / 07/31/2021 8:25 07/31/2021 8:25 Unknown AM ART EDUCATION PROFESSOR AM ART EDUCATION PROFESSOR Lois Carr MD LAB_1 Performing Organization Address [facility] Phon e Number [facility] [address] [place] [address] TSH, Sensitive (07/31/2021 8:25 AM ART EDUCATION PROFESSOR) P athologist Signature TSH, Sensitive 2.99 0.30 - 07/31/2021 [place] 4.50 3:47 PM ART EDUCATION PROFESSOR LABORATORY uIU/mL Specimen Anatomical Collection Method / Collection Time Recei ching Time (Source) Location / Volume Laterality Blood Venipuncture / 07/31/2021 8:25 07/31/2021 8:25 Unknown AM ART EDUCATION PROFESSOR AM ART EDUCATION PROFESSOR Lois Carr MD LAB_1 Performing Organization Address [facility] Phon e Number [facility] [address] [place] [address] documented in this encounter Visit Diagnoses Diagnosis Acquired hypothyroidism (HRC) Unspecified hypothyroidism Chronic fatigue Other malaise and fatigue Irregular menses Irregular menstrual cycle H/O Graves' disease Personal history of other endocrine, met abolic, and immunity disorders documented in this encounter Care Teams Insurance Defense Paralegal Relationship Specialty Start Date End Date No Primary/Referring, Phy PCP - General 12/13/19 documented as of this encounter
--- OUTSIDE RECORDS SUMMARY | 2022-06-23 17:54 | XMS_ITS | Encounter Summary ---
:1990 [facility] Address [address] [address] Care Team Providers Name Role Phone No Primary/Referring, Phy Primary Care Provider Unavailable Encounter Details Date Type Department Care Team Description 01/11/2021 Orders Only Initial Department Provider, Gloria, [address] MD [place], [place] [address] Interface provider [phone] [place] [address] Social History Tobacco Use Types Packs/Day Years Used Date Smoking Tobacco: Never Smokeless Tobacco: Never Alcohol Use Standard Drinks/Week Comments Not Currently 0 (1 standard drink = 0.6 oz pure alcoho l) Sex Assigned at Date Recorded Not on file documented as of this encounter Plan of Treatment Upcoming Encounters Date Type Specialty Care Team Description 07/04/2022 Appointment Otolaryngology Opal Richardson MD [address] [facility] N [address] (Wo rk) 07/22/2022 Appointment Endocrinology Luis Daniel Bradley MBBS [address] [facility] [address] [address] documented as of this encounter Procedures Procedure Name Priority Date/Time Associated Diagnosis Comme nts MRI-SCAN 01/11/2021 Results for thi s procedure are in the resu lts section. documented in this encounter Results MRI-SCAN (01/11/2021) Anatomical Region Laterality Modality Other Narrative This result has an attachment that is no t available. Interface Provider MD JONES/OTHER/AR documented in this encounter Visit Diagnoses Not on filedocumented in this encounter Care Teams Marking Clerk Relationship Specialty Start Date End Date No Primary/Referring, Phy PCP - General 12/13/19 documented as of this encounter
--- OUTSIDE RECORDS SUMMARY | 2022-06-23 17:54 | XMS_ITS | Encounter Summary ---
:1990 [facility] Address [address], [place] [address] Care Team Providers Name Role Phone No Primary/Referring, Phy Primary Care Provider Unavailable Reason for Visit Reason Comments Pharyngitis Ear Pain Encounter Details Date Type Department Care Team Description 05/31/2021 Office Visit Veronica Nieto MD Pharyngitis, [facility] [address] ecified etiology Care [facility] [address] [place] [phone] Social History Tobacco Use Types Packs/Day Years Used Date Smoking Tobacco: Never Smokeless Tobacco: Never Alcohol Use Standard Drinks/Week Comments Not Currently 0 (1 standard drink = 0.6 oz pure alcoho l) Sex Assigned at Date Recorded Not on file documented as of this encounter Last Filed Vital Signs Vital Sign Reading Time Taken Comments Blood Pressure 119/71 05/31/2021 10:52 AM TENDER COORDINATOR Pulse 85 05/31/2021 10:52 AM TENDER COORDINATOR Temperature 36.6 ??C (97.9 ??F) 05/31/2021 10:52 AM TENDER COORDINATOR Respiratory Rate 20 05/31/2021 10:52 AM TENDER COORDINATOR Oxygen Saturation 98% 05/31/2021 10:52 AM TENDER COORDINATOR Inhaled Oxygen Concentration - - Weight - - Height - - Body Mass Index - - documented in this encounter Progress Notes Flakita Bolaños - 05/31/2021 11:00 AM TENDER COORDINATOR Addended by: FLAKITA BOLAÑOS on: 05/31/2021 01:42 PM Modules accepted: Orders ER COORDINATOR Veronica Martinez MD - 05/31/2021 11:00 AM CST Note dictated ER COORDINATOR Veronica Martinez MD - 05/31/2021 12:00 AM CST NAME: DESTINEY HUFF CSN: [id number] CLINIC NOTE DATE OF SERVICE: 05/31/2021 : 1990 CHIEF COMPLAINT: Right ear pain. HISTORY OF PRESENT ILLNESS: This pleasant 30-year-old comes in today complaining of right ear pain. Her right throat is also hurting her as well. It has been going on for the past 3 days. Her tonsils are surgically absent. She denies a fever. 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 She is not vaccinated against COVID, does not want to be tested for COVID. She can eat and drink without any difficulty. PAST MEDICAL HISTORY: Reviewed through [employer]. PAST SURGICAL HISTORY: Reviewed through [employer]. MEDICATIONS: Reviewed through [employer]. ALLERGIES: REVIEWED THROUGH [employer]. OBJECTIVE: VITAL SIGNS: Blood pressure 119/71, temperature 97.9, pulse 85, respirations 20, O2 sat is 98% on room air. GENERAL: Alert and orientated in no apparent distress. HEENT: Tympanic membranes: No sign of infection. Sinuses are nontender. Oropharynx is pink and moist. Tonsils are surgically absent but she does have some mild erythema in the right posterior pharynx and around the tonsillar area. There is no peritonsillar cellulitis or abscesses. Uvula midline. Oropharynx is pink. NECK: Reveals mild cervical lymphadenopathy anteriorly. No masses. LUNGS: Clear. HEART: Regular. DIAGNOSTICS: Strep was obtained. ASSESSMENT: Right-sided throat pain. PLAN: We will run the strep test. We will let her know if it is positive. Otherwise, results will bein MyChart. I am going to call in a prescription for Zithromax that patient can take if symptoms seem to be worsening over the weekend because it is somewhat worse on 1 side than the other. We did discuss about peritonsillar cellulitis or abscess and certainly if she has worsening symptoms, she needs to be followed up, but I do not see anything currently which would indicate that. She is in agreementwith the plan, will do salt water gargles, ibuprofen, and Tylenol as well. VERONICA MARTINEZ MD KMM/SUZYS /[id number] ER COORDINATOR documented in this encounter Nursing Notes Nancy Mi, RN - 05/31/2021 11:00 AM CST Pt c/o right sided throat pain and right ear pain. Denies congestion or cough. Sx x 3 days. ER COORDINATOR documented in this encounter Plan of Treatment Upcoming Encounters Date Type Specialty Care Team Description 07/04/2022 Appointment Otolaryngology Opal Richardson MD [address] [facility] N [id number] (Wo rk) 07/22/2022 Appointment Endocrinology Luis Daniel Bradley MBBS [address] [facility] N [address] documented as of this encounter Procedures Procedure Name Priority Date/Time Associated Diagnosis Comme nts STREP GROUP A, Waiting 05/31/2021 10:55 AM Pharyngitis, Result s for this MOLECULAR DETECTION TENDER COORDINATOR unspecified etiology procedure are in the results section. documented in this encounter Results Strep Group A by PCR (05/31/2021 10:55 AM TENDER COORDINATOR) [facility] Method Time Signature Group A Strep Not Detected Not Detected 05/31/2021 MICHAEL Bland 2:13 PM TENDER COORDINATOR LABORATORY Comment: Methodology: Qualitative real-t ksenia PCR assay Specimen Anatomical Collection Method Collection Time Receive d Time (Source) Location / / Volume Laterality Swab (Source THROAT SWAB / Non-blood 05/31/2021 10:55 05/31/2021 1:42 Required) Unknown Collection / AM TENDER COORDINATOR PM TENDER COORDINATOR Unknown Maximino TUCKER LAB_1 Performing Organization Address City/State/ZIP Code Phon e Number [facility] [address] [place] [address] documented in this encounter Visit Diagnoses Diagnosis Pharyngitis, unspecified etiology documented in this encounter Care Teams Milk Receiver Relationship Specialty Start Date End Date No Primary/Referring, Phy PCP - General 12/13/19 documented as of this encounter
--- OUTSIDE RECORDS SUMMARY | 2022-06-23 17:54 | XMS_ITS | Encounter Summary ---
:1990 Author Organization [facility] Address [address] [place] [address] Care Team Providers Name Role Phone Needs Pcp, Assignment Primary Care Provider Encounter Details Date Type Department Care Team Description 11/22/2019 Lab Visit [facility] Encounter for preconception [address] [facility] consultation [place], [place] [address] Social History Tobacco Use Types Packs/Day Years Used Date Smoking Tobacco: Never Smokeless Tobacco: Never Sex Assigned at Date Recorded Not on file documented as of this encounter Plan of Treatment Upcoming Encounters Date Type Specialty Care Team Description 07/04/2022 Appointment Otolaryngology Opal Richardson MD [address] [facility] N [id number] (Wo rk) 07/22/2022 Appointment Endocrinology Luis Daniel Bradley MBBS [address] [facility] N [id number] documented as of this encounter Procedures Procedure Name Priority Date/Time Associated Diagnosis Comme nts ESTRADIOL Routine 11/22/2019 2:05 PM Encounter for Results for this CDT preconception procedure are in consultation the results section. FSH Routine 11/22/2019 2:05 PM Encounter for Results for this CDT preconception procedure are in consultation the results section. documented in this encounter Results FSH (11/22/2019 2:05 PM CDT) athologist Signature FSH 8.7 mIU/mL 11/23/2019 [facility] 12:10 PM CDT CENTRAL LAB Specimen Anatomical Collection Method / Collection Time Recei ching Time (Source) Location / Volume Laterality Blood Venipuncture / 11/22/2019 2:05 11/22/2019 2:05 Unknown PM CDT PM CDT Narrative [facility] CENTRAL LAB - 11/23/2019 12:10 PM CDT Expected values for mensturating females Follicular Phase: 3.0-8.1 mIU/mL Mid-Cycle Peak: 2.6-16.7 mIU/mL Luteal Phase: 1.4-5.5 mIU/mL Post Menopausal Females without HRT: 26. 8-133.4 mIU/mL Cindy Stephen MD LAB_1 Performing Organization Address [facility] e Number [facility] [address] [address] Estradiol (11/22/2019 2:05 PM CDT) P athologist Signature Estradiol 38 pg/mL 11/23/2019 [facility] 12:10 PM CDT CENTRAL LAB Specimen Anatomical Collection Method / Collection Time Recei ching Time (Source) Location / Volume Laterality Blood Venipuncture / 11/22/2019 2:05 11/22/2019 2:05 Unknown PM CDT PM CDT [facility] LAB - 11/23/2019 12:10 PM CDT The [...] <10-144 pg/mL Not on HRT: <10-28 pg/mL Cindy Stephen MD LAB_1 Performing Organization Address [facility] e Number [facility] [address] [address] documented in this encounter Visit Diagnoses Diagnosis Encounter for preconception consultation documented in this encounter Care Teams Senior Sales Associate Relationship Specialty Start Date End Date Needs Pcp, Assignment PCP - General 07/07/17 12/12/19 [place] [address] documented as of this encounter
--- OUTSIDE RECORDS SUMMARY | 2022-06-23 17:54 | XMS_ITS | Encounter Summary ---
:1990 Author Organization [facility] Address [address] [place] [address] Care Team Providers Name Role Phone No Primary/Referring, Phy Primary Care Provider Unavailable Encounter Details Date Type Department Care Team Description 07/17/2021 Notes/Orders [place] [facility] Andrews Aguilar Co ntact with and Marina Henao MD (suspected) exposure [address] to covid-19 [place], [place] [address] [place], [place] [phone] [address] Social History Tobacco Use Types Packs/Day Years Used Date Smoking Tobacco: Never Smokeless Tobacco: Never Alcohol Use Standard Drinks/Week Comments Not Currently 0 (1 standard drink = 0.6 oz pure alcoho l) Sex Assigned at Date Recorded Not on file documented as of this encounter Plan of Treatment Upcoming Encounters Date Type Specialty Care Team Description 07/04/2022 Appointment Otolaryngology Opal Richardson MD [address] [facility] N [address] (Wo rk) 07/22/2022 Appointment Endocrinology Luis Daniel Bradley MBBS [address] [facility] N [address] documented as of this encounter Results Symptomatic - 2019 Novel Coronavirus (COVID-19) (07/18/2021 4:30 PM LOAD TEST MECHANIC) [facility] Method Time Signature COVID-19 Not Not 07/21/2021 [facility] Interpretation Detected Detected 11:39 AM CENTRAL LAB LOAD TEST MECHANIC Source Nares, left 07/21/2021 [facility] and right 11:39 AM CENTRAL LAB LOAD TEST MECHANIC Specimen Anatomical Collection Method Collection Time Receive d Time (Source) Location / / Volume Laterality Swab (Source ENTIRE ANTERIOR Non-blood 07/18/2021 4:30 PM 2020 4:41 Required) NARIS / Unknown Collection / LOAD TEST MECHANIC PM LOAD TEST MECHANIC Unknown Narrative [facility] - 07/21/2021 11:39 AM LOAD TEST MECHANIC Tested by Polymerase Chain Reaction (PCR ), Continuing Education Specialist-mediated amplification (TMA), or another nucleic acid amplifica tion (NAAT) test. Andrews Aguilar MD LAB_1 Performing Organization Address City/State/ZIP Code Phon e Number [facility] [address] [address] documented in this encounter Visit Diagnoses Diagnosis Contact with and (suspected) exposure to covid-19 documented in this encounter Care Teams Supervisor Customer Records Division Relationship Specialty Start Date End Date No Primary/Referring, Phy PCP - General 12/13/19 documented as of this encounter
--- OUTSIDE RECORDS SUMMARY | 2022-06-23 17:54 | XMS_ITS | Encounter Summary ---
:1990 Author Organization [facility] Address [address], [place] [address] Care Team Providers Name Role Phone No Primary/Referring, Phy Primary Care Provider Unavailable Reason for Visit Reason Comments Future Appointments Med Rec's Consult Encounter Details Date Type Department Care Team Description 07/23/2021 Telephone [facility] [address] Fut[address] e Appointments Endocrinology Eduardo Garcia MD (Med Rec's Consult) [address] [facility] [facility] [place] [place] [phone] (Wo rk) Social History Tobacco Use Types Packs/Day Years Used Date Smoking Tobacco: Never Smokeless Tobacco: Never Alcohol Use Standard Drinks/Week Comments Not Currently 0 (1 standard drink = 0.6 oz pure alcoho l) Sex Assigned at Date Recorded Not on file documented as of this encounter Nursing Notes Mari Duran, RN - 07/23/2021 2:19 PM CST Left detailed VM for patient to advise med recs and labs have been received by Dr. Dawson's office for her upcoming apt with Dr. Carr. Records placed with prep sheet. R DESIGN ENGINEER Jaz Vences - 07/23/2021 2:00 PM CST Pt states she called this morning to check on faxed labs and was told she would be called back. Pt was not called back. No encounter present and no labs in media. Pt called to confirm we received her blood work from prior clinic. Pt went to [facility] and saw . The number to reach this clinic is [phone] Please get blood work before appt tomorrow. R DESIGN ENGINEER documented in this encounter Plan of Treatment Upcoming Encounters Date Type Specialty Care Team Description 07/04/2022 Appointment Otolaryngology Opal Richardson MD [address] [id number] (Wo rk) 07/22/2022 Appointment Endocrinology Luis Daniel Bradley MBBS [address] N [phone] documented as of this encounter Visit Diagnoses Not on filedocumented in this encounter Care Teams Double Head Machine Operator Relationship Specialty Start Date End Date No Primary/Referring, Phy PCP - General 12/13/19 documented as of this encounter
--- OUTSIDE RECORDS SUMMARY | 2022-06-23 17:54 | XMS_ITS | Encounter Summary ---
:1990 [facility] Address [address], [place] [address] Care Team Providers Name Role Phone No Primary/Referring, Phy Primary Care Provider Unavailable Reason for Visit Reason Comments Other sore throat Encounter Details Date Type Department Care Team Description 07/18/2021 [facility] Tamir Bowling MD CANCEL EXPECTED Medicine [address] [facility] PATIENT (Primary Dx) [address] [place] [address] [phone] (Wo rk) Social History Tobacco Use Types Packs/Day Years Used Date Smoking Tobacco: Never Smokeless Tobacco: Never Alcohol Use Standard Drinks/Week Comments Not Currently 0 (1 standard drink = 0.6 oz pure alcoho l) Sex Assigned at Date Recorded Not on file documented as of this encounter Progress Notes Tamir Bowling MD - 07/18/2021 4:30 PM CST Patient canceled appointment before being seen. WRAPPING MACHINE OPERATOR documented in this encounter Plan of Treatment Upcoming Encounters Date Type Specialty Care Team Description 07/04/2022 Appointment Otolaryngology Opal Richardson MD [address] [phone] (Wo rk) 07/22/2022 Appointment Endocrinology Luis Daniel Bradley MBBS [address] N [id number] documented as of this encounter Visit Diagnoses Diagnosis CANCEL EXPECTED PATIENT - Primary documented in this encounter Additional Health Concerns Infection Onset Date Last Indicated Resolved Time R/O COVID19 07/18/2021 07/18/2021 07/21/2021 11:39 AM PIPE WRAPPING MACHINE OPERATOR documented as of this encounter Care Teams Draftsperson Relationship Specialty Start Date End Date No Primary/Referring, Phy PCP - General 12/13/19 documented as of this encounter
--- OUTSIDE RECORDS SUMMARY | 2022-06-23 17:54 | XMS_ITS | Encounter Summary ---
:1990 Author Organization [facility] Address [address], [place] [address] Care Team Providers Name Role Phone No Primary/Referring, Phy Primary Care Provider Unavailable Reason for Referral Therapies (Routine) - New Request Specialty Diagnoses / Procedures Referred By Contact Refer red To Contact Diagnoses Patellofemoral arthrosis Jocelyn Stout PA-C [address] [place] [address] Referral ID Status Reason Start Date Expiration Date Visits V isits Requested Authorized [id number] New Request 07/16/2021 07/16/2022 1 1 Scheduling Instructions Your provider has recommended an appoint ment with [facility]. To schedule your appointment, you may call [phone] or schedule online at Scope 5/schedule. We suggest you call your health insurance company about your coverage and benefits for this appo intment. WEAR SALES LEADER Reason for Visit Reason Comments Knee Pain or Injury Consult right knee DOP:2 mon ths ELEUTERIO: no injury maybe twisted knee while playing with son? Encounter Details Date Type Department Care Team Description 07/16/2021 Office Visit Jocelyn Lovett Patellof emoral [facility]opa[facility] CHELSEY arthrosis (Primary Dx) Medicine [address] [address] [place] [phone] Social History Tobacco Use Types Packs/Day Years Used Date Smoking Tobacco: Never Smokeless Tobacco: Never Alcohol Use Standard Drinks/Week Comments Not Currently 0 (1 standard drink = 0.6 oz pure alcoho l) Sex Assigned at Date Recorded Not on file documented as of this encounter Last Filed Vital Signs Vital Sign Reading Time Taken Comments Blood Pressure - - Pulse - - Temperature - - Respiratory Rate - - Oxygen Saturation - - Inhaled Oxygen Concentration - - Weight 63.5 kg (140 lb) 07/16/2021 1:11 PM FOOTWEAR SALES LEADER Height 170.2 cm (5' 7) 07/16/2021 1:11 PM FOOTWEAR SALES LEADER Body Mass Index 21.93 07/16/2021 1:11 PM FOOTWEAR SALES LEADER documented in this encounter Patient Instructions Patient InstructionsJocelyn Stout PA-C - 07/16/2021 1:15 PM CST Thank you for trusting your care to [facility]! It was nice to see you today. For your future needs please don't hesitate to contact us at: [facility]: [phone] We offer Orthopedic services at all of the following locations: ?? [address] [facility] [place] - [address] [place], [facility] [address] [address] ?? [facility] [place] - [address] [place] [address] ?? [facility] [place] - [address] [place] [address] ?? [facility] [place] - [address] [place] [address] ?? [facility] [place] - [address] [facility], [address] ?? [facility] [place] - [address] [place] [address] ?? [facility] [place] - [address] [place] [address] ?? [facility] [place] - [address] [place] [address] Other Phone Numbers ??? Medical Records: [phone] ??? Rehabilitation Services: [phone] ??? Radiology [phone] ??? [facility]-Hours [facility] (Weekdays, 5p.m. to 8:30 a.m.; Weekends and Holidays - 24 hours): [phone] Medication Refill Policy All medication requests will be responded to within three (3) business days. Patient Responsibilities ? For medication refills please contact your pharmacy or provider's office. ? Allow at least two (2) business days for these requests to be addressed. ? Medications will not be refilled after 4:30 PM on weekdays, weekends or holidays. Urgent Care and Emergency Departments do not handle medication refills or management. Please plan appropriately for any vacations/special requests. ? Call your pharmacy before contacting the clinic to check on you refill. ? Some insurance companies have regulations on coverage of medications; please ensure you are familiar with your insurance prescription coverage. If you would like to do some independent research on your condition, we recommend the following web sites as sources of reliable information for patient education: [facility] https://[email or web address]/ The [place] [employer] Orthopedic [employer]geons: http://orthoinfo.aaos.org/ [place] Association of Hip and Knee Surgeons: https://hipknee.aahks.org/ [place] Society for Surgery of the Hand: http://www.assh.org/Public/Pages/default.aspx [place] Orthopaedic Foot & Ankle Society: http://www.aofas.org/footcaremd/Pages/footcaremd.aspx Pediatric Orthopaedic Society of [place]: https://posna.org/Patient-Education WEAR SALES LEADER documented in this encounter Progress Notes Jocelyn Stout PA-C - 07/16/2021 12:00 AM CST NAME: DESTINEY HUFF CSN: [id number] CLINIC NOTE DATE OF SERVICE: 07/16/2021 : 1990 REASON FOR VISIT: Right knee pain. Patient is a 30-year-old female who presents for right knee pain going on for a couple months, patient actually states it has maybe been more a year. She had her son who is now 10 months old and noticed it while she was . She states she had x-rays over at [facility], but did not have an MRI because of her status. Patient notes when she walks, squats, puts direct pressure on her knees, such as kneeling or crawling she has pain. She notes it in the anterior aspect of theknee, and sometimes posteriorly, sometimes it is medially; it seems to move around. It is 6/10. Restriction from being active, not moving makes it better. She denies any locking, catching, or giving out. She admits that she is quite sensitive and is concerned about pain. PAST MEDICAL, SOCIAL, SURGICAL, FAMILY, REVIEW OF SYSTEMS, MEDICATIONS: Reviewed per the intake sheet and updated. ALLERGIES: REVIEWED PER THE INTAKE SHEET AND UPDATED. PHYSICAL EXAM: GENERAL: She is a well-developed well-nourished adult female. She appears in no acutedistress. SKIN: Clean, dry, intact. PSYCH: Mood and affect are normal. MUSCULOSKELETAL: Inspection of that right knee demonstrates no effusion. She has no ecchymosis. No edema. She has soreness along the medial and lateral patellar facets, and along that medial joint line. She has no significant restriction with valgus and varus stress test. No instability at 0 and 30 degrees. Anterior and posterior drawer are stable. Her strength is adequate. Ivan's is guarded; it does not reproduce symptoms when I do try it, but she is very guarded during that portion of the exam. IMAGING: None. 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 PLAN: I did discuss options with Destiney. She did have x-rays at [facility] last year, which we will try to obtain; she states they were normal. I do think this is more patellofemoral issue. I recommended Formal Physical Therapy and a J brace. Also, recommended doing a routine anti-inflammatory for about 10 days. If persistently problematic, we could look to advanced imaging. Patient verbalized understanding. All of her questions were answered. JOCELYN STOUT PA-C EMS/AQS /[id number] WEAR SALES LEADER documented in this encounter Plan of Treatment Upcoming Encounters Date Type Specialty Care Team Description 07/04/2022 Appointment Otolaryngology Opal Richardson MD [address] N [phone] (Wo rk) 07/22/2022 Appointment Endocrinology Luis Daniel Bradley MBBS [address] N [phone] Scheduled Referrals Name Type Priority Associated Diagnoses Order S chedule Physical Therapy Referral Routine Patellofemoral arthrosis Ordered: 07/16/2021 documented as of this encounter Visit Diagnoses Diagnosis Patellofemoral arthrosis - Primary documented in this encounter Care Teams Die Try Out Worker Relationship Specialty Start Date End Date No Primary/Referring, Phy PCP - General 12/13/19 documented as of this encounter
--- OUTSIDE RECORDS SUMMARY | 2022-06-23 17:55 | XMS_ITS | Encounter Summary ---
:1990 Author Organization [facility] Address [address], [place] [address] Care Team Providers Name Role Phone Needs Pcp, Assignment Primary Care Provider Reason for Visit (Routine) - Incomplete Specialty Diagnoses / Procedures Referred By Contact Refer red To Contact Procedures Provider, Foreign Images Foreign Image(s) MR L-Spine [address] [facility] [place] [address] Referral ID Status Reason Start Date Expiration Date Visits V isits Requested Authorized [id number] Incomplete 08/21/2018 11/20/2019 1 1 Encounter Details Date Type Department Care Team Description 08/17/2018 Ancillary Procedure [facility] Radiology PACS Provider, [address] [address] [place] [address] Social History Tobacco Use Types Packs/Day Years Used Date Smoking Tobacco: Never Smokeless Tobacco: Never Sex Assigned at Date Recorded Not on file documented as of this encounter Plan of Treatment Upcoming Encounters Date Type Specialty Care Team Description 07/04/2022 Appointment Otolaryngology Opal Richardson MD [address] [facility] N [address] (Wo rk) 07/22/2022 Appointment Endocrinology Luis Daniel Bradley MBBS [address] [facility] N [phone] documented as of this encounter Procedures Procedure Name Priority Date/Time Associated Diagnosis Comme nts FOREIGN IMAGE(S) MR Routine 08/17/2018 10:15 AM R esults for this L-SPINE WO IV CONT METER/RELAY CRAFTSMAN procedure are in the results section. documented in this encounter Results Foreign Image(s) MR L-Spine WO IV Cont (08/17/2018 10:15 AM METER/RELAY CRAFTSMAN) Specimen (Source) Anatomical Location Collection Method / Collectio n Time Received Time / Laterality Volume Narrative PN POCT - 08/21/2018 10:15 AM METER/RELAY CRAFTSMAN These outside images have been uploaded into PACS. If the results were provided, they will be located in the lavinia mulligan's chart under the Media or Imaging tab. Foreign Images Provider RAD NON-REPORTABLES Performing Organization Address City/State/ZIP Code Phon e Number POCT PN POCT documented in this encounter Visit Diagnoses Not on filedocumented in this encounter Care Teams Rustic Fence Builder Relationship Specialty Start Date End Date Needs Pcp, Assignment PCP - General 07/07/17 12/12/19 [place] [address] documented as of this encounter
--- OUTSIDE RECORDS SUMMARY | 2022-06-23 17:55 | XMS_ITS | Encounter Summary ---
:1990 Author Organization [facility] Address [address] [place] [address] Care Team Providers Name Role Phone Needs Pcp, Assignment Primary Care Provider Reason for Visit Procedure/Equipment (Routine) - Incomplete Specialty Diagnoses / Procedures Referred By Contact Refer red To Contact Procedures Provider, Foreign Images Foreign Image(S) XR L-Spine [address] [place] [address] Referral ID Status Reason Start Date Expiration Date Visits V isits Requested Authorized [id number] Incomplete 08/21/2018 11/20/2019 1 1 Encounter Details Date Type Department Care Team Description 08/03/2018 Ancillary Procedure [facility] Radiology PACS Provider, [address] [address] [place] [address] Social History Tobacco Use Types Packs/Day Years Used Date Smoking Tobacco: Never Smokeless Tobacco: Never Sex Assigned at Date Recorded Not on file documented as of this encounter Plan of Treatment Upcoming Encounters Date Type Specialty Care Team Description 07/04/2022 Appointment Otolaryngology Opal Richardson MD [address] [facility] N [id number] (Wo rk) 07/22/2022 Appointment Endocrinology Luis Daniel Bradley MBBS [address] [facility] [address] N [phone] documented as of this encounter Procedures Procedure Name Priority Date/Time Associated Diagnosis Comme nts FOREIGN IMAGE(S) XR Routine 08/03/2018 9:50 AM Re sults for this L-SPINE PRECISE WINDER procedure are i n the results section. documented in this encounter Results Foreign Image(S) XR L-Spine (08/03/2018 9:50 AM PRECISE WINDER) Specimen (Source) Anatomical Location Collection Method / Collectio n Time Received Time / Laterality Volume Narrative PN POCT - 08/21/2018 9:46 AM PRECISE WINDER These outside images have been uploaded into PACS. If the results were provided, they will be located in the pa ese's chart under the Media or Imaging tab. Foreign Images Provider RAD NON-REPORTABLES Performing Organization Address City/State/ZIP Code Phon e Number POCT PN POCT documented in this encounter Visit Diagnoses Not on filedocumented in this encounter Care Teams Network Support Relationship Specialty Start Date End Date Needs Pcp, Assignment PCP - General 07/07/17 12/12/19 [place] [address] documented as of this encounter
--- OUTSIDE RECORDS SUMMARY | 2022-06-23 17:55 | XMS_ITS | Encounter Summary ---
:1990 Author Organization [facility] Address [address], [place] [address] Care Team Providers Name Role Phone Needs Pcp, Assignment Primary Care Provider Reason for Visit (Routine) - Incomplete Specialty Diagnoses / Procedures Referred By Contact Refer red To Contact Procedures Provider, Foreign Images Foreign Image(s) MR L-Spine [address] [facility] [place] [address] Referral ID Status Reason Start Date Expiration Date Visits V isits Requested Authorized [id number] Incomplete 08/21/2018 11/20/2019 1 1 Encounter Details Date Type Department Care Team Description 08/17/2018 Ancillary Procedure [facility] Radiology PACS Provider, [address] [address] [place] [address] Social History Tobacco Use Types Packs/Day Years Used Date Smoking Tobacco: Never Smokeless Tobacco: Never Sex Assigned at Date Recorded Not on file documented as of this encounter Plan of Treatment Upcoming Encounters Date Type Specialty Care Team Description 07/04/2022 Appointment Otolaryngology Opal Richardson MD [address] [facility] [address] [address] (Wo rk) 07/22/2022 Appointment Endocrinology Luis Daniel Bradley MBBS [address] [facility] [place] [address] [address] documented as of this encounter Procedures Procedure Name Priority Date/Time Associated Diagnosis Comme nts FOREIGN IMAGE(S) MR Routine 08/17/2018 9:45 AM Re sults for this L-SPINE WO IV CONT MUSICAL STRING MAKER procedure are in the results section. documented in this encounter Results Foreign Image(s) MR L-Spine WO IV Cont (08/17/2018 9:45 AM MUSICAL STRING MAKER) Specimen (Source) Anatomical Location Collection Method / Collectio n Time Received Time / Laterality Volume Narrative PN POCT - 08/21/2018 9:45 AM MUSICAL STRING MAKER These outside images have been uploaded into PACS. If the results were provided, they will be located in the lavinia mulligan's chart under the Media or Imaging tab. Foreign Images Provider RAD NON-REPORTABLES Performing Organization Address City/State/ZIP Code Phon e Number POCT PN POCT documented in this encounter Visit Diagnoses Not on filedocumented in this encounter Care Teams Ballistics Professor Relationship Specialty Start Date End Date Needs Pcp, Assignment PCP - General 07/07/17 12/12/19 [place] [address] documented as of this encounter
--- OUTSIDE RECORDS SUMMARY | 2022-06-23 17:55 | XMS_ITS | Encounter Summary ---
:1990 Author [email or web address] Address [address] [place] [address] Care Team Providers Name Role Phone Needs Pcp, Assignment Primary Care Provider Reason for Visit Procedure/Equipment (Routine) - Incomplete Specialty Diagnoses / Procedures Referred By Contact Refer red To Contact Diagnoses Sacroiliac joint pain (HRC) Matteo Serrano MD Procedures XR Lumbar Spine 2-3 Views [address] [place] [address] Referral ID Status Reason Start Date Expiration Date Visits V isits Requested Authorized [id number] Incomplete 08/21/2018 11/20/2019 1 1 Encounter Details Date Type Department Care Team Description 08/21/2018 Ancillary Procedure [facility] Radiology Matteo Serrano, Injury of back, [address] initial encounter [address] [place], [place] [id number] Social History Tobacco Use Types Packs/Day Years Used Date Smoking Tobacco: Never Smokeless Tobacco: Never Sex Assigned at Date Recorded Not on file documented as of this encounter Plan of Treatment Upcoming Encounters Date Type Specialty Care Team Description 07/04/2022 Appointment Otolaryngology Opal Richardson MD [address] [address] (Wo rk) 07/22/2022 Appointment Endocrinology Luis Daniel Bradley MBBS [address] [phone] documented as of this encounter Procedures Procedure Name Priority Date/Time Associated Diagnosis Comme nts XR LUMBAR SPINE 2-3 Routine 08/21/2018 10:30 AM Injury of back , Results for this VIEWS DOOR MAKER initial encounter procedure are in the results section. documented in this encounter Results XR Lumbar Spine 2-3 Views (08/21/2018 10:30 AM DOOR MAKER) Anatomical Region Laterality Modality Spine, L-Spine Digital Radiography Specimen (Source) Anatomical Collection Method Collection Time Re ceived Time Location / / Volume Laterality 08/21/2018 10:14 AM DOOR MAKER Narrative 08/21/2018 11:00 AM DOOR MAKER COMPARISON: ??None. FINDINGS: ??No fracture or subluxation o f the lumbosacral vertebral bodies is identified. Very mild disc height loss at L5-S1. No change in alignment between flexion and extension. Procedure Note Laura Spencer MD - 08/21/2018Formatti ng of this note might be different from the original. COMPARISON: None. FINDINGS: No fracture or subluxation of the lumbosacral vertebral bodies is identified. Very mild disc height loss at L5-S1. No change in alignment between flexion and extension. Matteo Serrano MD RAD GD documented in this encounter Visit Diagnoses Diagnosis Injury of back, initial encounter documented in this encounter Care Teams Linux Network Systems Administrator Relationship Specialty Start Date End Date Needs Pcp, Assignment PCP - General 07/07/17 12/12/19 [place] [address] documented as of this encounter
--- OUTSIDE RECORDS SUMMARY | 2022-06-23 17:55 | XMS_ITS | Encounter Summary ---
:1990 [facility] Address [address] [address] Care Team Providers Name Role Phone Pcp, Pt Declines MD Primary Care Provider Reason for Visit Reason Comments SHOULDER PAIN Encounter Details Date Type Department Care Team Description 08/17/2015 Office Visit Samuel Villafana, Jerome l radiculopathy (Primary Dx); Urgent Care Neck pain [address] [facility] [address] [place] [address] [place], [place] [address] [phone] (Wo rk) Social History Tobacco Use Types Packs/Day Years Used Date Smoking Tobacco: Never Assessed Sex Assigned at Date Recorded Not on file documented as of this encounter Last Filed Vital Signs Vital Sign Reading Time Taken Comments Blood Pressure 120/64 08/17/2015 5:32 PM [employer] GL[employer] Pulse - - Temperature 36.3 ??C (97.3 ??F) 08/17/2015 5:32 PM [employer] Respiratory Rate - - Oxygen Saturation - - Inhaled Oxygen Concentration - - Weight 52.2 kg (115 lb) 08/17/2015 5:32 PM [employer] Height 170.2 cm (5' 7) 08/17/2015 5:32 PM [employer] Body Mass Index 18.01 08/17/2015 5:32 PM [employer] documented in this encounter Patient Instructions Patient InstructionsCarmina Vences, STAFF THERAPIST - 08/17/2015 5:[address] Samuel Pagan MD Sports & Orthopaedic Medicine [facility] Caustic Purification Operator: Yousif Sanders Please call Yousif for all administrative questions at [phone] Acute [facility] Nurse Line: [phone] Please contact Acute Injury Clinic Nurse line for all requests and questions. 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 She did not have a particular injury. She wonders if it was related to pushing a dog or doing pushups. She hasbeen more active in the gym recently. Her pain is 5-8/10 over the left trapezius, shoulder area, scapula and upper arm as well as occasionally down to the forearm. She denies any numbness and tingling down her arm. She is not sure if it is weak or not. She has no history of shoulder problems. She saysshe has always had a stiff neck but has not had any other evaluation or treatment. She was seen by [facility] one week ago and did not have any particular treatment or imaging. It hurts with moving her arm, better with rest. REVIEW OF SYSTEMS: No fever, rash or numbness and tingling. No diabetes, stomach or joint problems. PAST SURGICAL HISTORY: Lumbar surgery. 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 ALLERGIES: PENICILLIN, CEPHALOSPORINS, CIPROFLOXACIN. MEDICATIONS: Per Epic. OBJECTIVE: Height 5 feet 7 inches. Weight 115 pounds. Temperature 97.4. Blood pressure 120/64. Well-appearing female in no acute distress. Alert and oriented x3. Pleasant affect. Body habitus normal. CERVICAL EXAM: Tenderness over the bilateral trapezius, left scapula. Full flexion, extension, rotation and sidebending. Upper extremity strength is intact and 5/5 bilaterally. Neck flexion and extension is 5/5. LEFT SHOULDER: Has diffuse tenderness to palpation over the supraspinatus, infraspinatus, acromion, AC joint and the upper arm. She has left scapular dyskinesis present. Strength is 5/5 with abduction,internal and external rotation. Range of motion is intact. ASSESSMENT: Left cervical radiculopathy. A cervical source would fit best with her diffuse area of pain. Also possible that some of her scapular dyskinesis is related to shoulder girdle pain. I do not suspect thateneida has a significant rotator cuff injury or pathology. PLAN: We discussed multiple options including prednisone, cervical MRI and physical therapy. She will start physical therapy and use [id number] pain medications. If she is not improving will follow up for repeat evaluation. SAB:LISY C: R:08/17/15 19:05 CONFIRM#:[id number] [employer]ALL GLOVE SH[employer] documented in this encounter Plan of Treatment Upcoming Encounters Date Type Specialty Care Team Description 07/04/2022 Appointment Otolaryngology Opal Richardson MD [address] [phone] (Wo rk) 07/22/2022 Appointment Endocrinology Luis Daniel Bradley MBBS [address] [address] documented as of this encounter Visit Diagnoses Diagnosis Cervical radiculopathy - Primary Brachial neuritis or radiculitis nos Neck pain Cervicalgia documented in this encounter Care Teams Wig Maker Relationship Specialty Start Date End Date Pcp, Amilcar Kerr MD PCP - General 01/10/15 07/06/17 [place] [address] documented as of this encounter
--- OUTSIDE RECORDS SUMMARY | 2022-06-23 17:55 | XMS_ITS | Encounter Summary ---
:1990 Author Organization [facility] Address [address], [place] [address] Care Team Providers Name Role Phone Needs Pcp, Assignment Primary Care Provider Reason for Referral Consult/Transfer Care (Routine) - Closed Specialty Diagnoses / Procedures Referred By Contact Refer red To Contact Diagnoses Urinary frequency Pain in joint involving pelvic region and thigh, unspecified laterality Jocelyn George MD [address] [place], [place] [address] Referral ID Status Reason Start Date Expiration Date Visits Requ ested Visits Authorized [id number] Closed 02/22/2018 05/24/2019 1 1 Scheduling Instructions Your provider has recommended an appoint ment with [facility]. You may call [phone] to schedule your a ppointment. If you do not schedule an appointment within the next 1 to 3 in days, we will call you to help arrange your appointment. We suggest you call [employer] about your coverage and benefits for this appointme nt. Consult/Transfer Care (Routine) - Closed Specialty Diagnoses / Procedures Referred By Contact Refer red To Contact Diagnoses Thrombosis of left jugular vein Postural orthostatic tachycardia syndrome Jocelyn George MD [address] [place], [place] [address] Referral ID Status Reason Start Date Expiration Date Visits Requ ested Visits Authorized [id number] Closed 02/22/2018 05/24/2019 1 1 Scheduling Instructions Your provider has recommended an appoint ment with [facility]. You may call [phone] to schedule your appoi ntment. If you do not schedule an appointment within the next 1 to 3 business days, we will call you to help arrange your appointment. We suggest you call your [employer] insurance company about your coverage and benefits for this appointment. (Routine) - Closed Specialty Diagnoses / Procedures Referred By Contact Refer red To Contact Diagnoses Jocelyn Gillette MD Procedures Echocardiogram [address] [place], [place] [address] Referral ID Status Reason Start Date Expiration Date Visits Requ ested Visits Authorized [id number] Closed 02/22/2018 05/24/2019 1 1 Reason for Visit Reason Comments CONSULT Encounter Details Date Type Department Care Team Description 02/22/2018 Initial Consult [facility] Jocelyn [facility] Pares thesia (Primary Dx); [facility] - [facility] Hypermobility, syndrome; Rheumatology [address] Thrombosis of left jugular v ein; [address] [facility] Postural orthostatic tachycardia syndrom e; [place], [place] Urinary frequency; [phone] Pain in joint involving pelvic region an d thigh, unspecified laterality [phone] Social History Tobacco Use Types Packs/Day Years Used Date Smoking Tobacco: Never Assessed Sex Assigned at Date Recorded Not on file documented as of this encounter Last Filed Vital Signs Vital Sign Reading Time Taken Comments Blood Pressure 110/65 02/22/2018 2:27 PM CDT Pulse 94 02/22/2018 2:27 PM CDT Temperature 36.7 ??C (98 ??F) 02/22/2018 2:27 PM CDT Respiratory Rate - - Oxygen Saturation - - Inhaled Oxygen Concentration - - Weight 49.3 kg (108 lb 9.6 oz) 02/22/2018 2:27 PM CDT Height - - Body Mass Index 17.01 08/17/2015 5:32 PM [employer] documented in this encounter Patient Instructions Patient InstructionsJocelyn George MD - 02/22/2018 2:30 PM CDT Images from the original note were not included. 1. Neurology consultation 2. You can show up at any [facility] lab to have these drawn. No fasting or appointment is needed. I will follow up with you regarding the results when they are available. Please let me know if there are any questions in the meantime. 3. Echocardiogram 4. I will make the genetic counseling referral to [place] 5: Urogynecology consultation Hypermobility Syndrome Have you ever had a patient complain of recurring pain in numerous joints, or respraining of a particular (wrist) joint, who may or may not express an inflammatory picture, and has been to many other doctors without a definite diagnosis or helpful treatment? This patient may be suffering with a hypermo bility syndrome (HMS). Because other conditions may express joint hypermobility, and can be excluded by laboratory testing,HMS becomes a diagnosis of exclusion. Two conditions that may have joint hypermobility and are connective tissue disorders are Edson-Danlos and Marfan syndrome. These two conditions exhibit hyperelastic skin, hernias, lenticular abnormalities and abnormal body proportions. HMS patients have a gender-influenced dominant trait with an abnormality of type I collagen. The condition is more common in females. Type I collagen is the most common collagen and is contained in tendons, ligaments, joint capsules, skin, demineralized bone and nerve receptors. Hypermobility of joints and spine is due to abnormal laxity of ligaments, joint capsules and intervertebreal discs. Back patients with symptoms who do not develop osteoarthrosis or disc degeneration usually experience spontaneous improvement with increasing age, thus losing their juvenile hyperlaxity. This usually occurs between 30 and 40 years of age. In HMS patients, too much activity causes pain. Hypermobility per se is a state, not a disease, but it may lead to generalized arthralgia or localized symptoms (frequent ankle sprains, knee effusions, dislocations of the shoulders and recurrent episodes of back pain). Pain can occur even after minor strains, especially in young women. HMS patients,besides having hypermobile joints, have decreased joint position sense, making them more vulnerable to minor damage. Criteria for the diagnosis of HMS are: 1. passive thumb apposition to touch the forearm; 2. passive little finger hyperextension of more than 90 degrees; 3. elbow hyperextension of more than 10 degrees; 4. knee hyperextension of more than10 degrees; 5. forward flexion of the trunk with the knees straight and the palms of the hands resting flat on the floor. HMS is usually diagnosed in individuals who can perform three or more of these tests. Patients with HMS may complain of symptoms from ages 3 to 70, which usually affect multiple joints over the years. Unless they have specifically stressed a particular joint and created an inflammation,HMS patients do not respond to anti-inflammatory medication. HMS patients must be educated about their body mechanics, posture and activities. Activities may have to be modified. Even splints, braces and taping may have to be used to protect vulnerable joints. Movement of the joints in the end-ranges should be discouraged. Stretching muscles rather than joints should be emphasized. Guided progressive strengthening exercises and balance boards for proprioceptive stimulation are recommended. 1. Classic Type EDS-Autosomal dominance inheritance (COL5A1 or COL5A2 gene), hypermobility with joint dislocations, floppy ears, parrot facies, soft skin with scars, easy bruising, aortic root dilation, mitral valve prolapse, osteopenia, kyphoscoliosis, spontaneous pneumothorax, 2. Hypermobile Tyle (formerly EDS III) marked hypermobility of the large and small joints. Soft skin, but no scars. Collagen/defect of Extraellular Matrix protein is unknown. Inheritance is autosomal dominant. 3: Vascular Type (formerly EDS IV): NORMAL joint mobility, translucent skin, aortic/arterial aneuryms, spontaneous bleeding, mitral valve prolapse, mutated type III collagen COL3A1, no hyperelastic skin, inheritance is autosomal dominant. Marfan syndrome has a genetic testing, mutated fibrillin -1 gene on chromosome 15. Tall stature, long thin extremities, arachnodactyly, pes excavatum/carinatum, scoliosis. We recommend that (she/he) avoid activities that elicit pain and subluxation to the joints. We do, however, want (her/him) to have physical activity since this will help keep the muscles toned which inturn stabilizes the joints. Adults with EDS need a personalized physical daily activity program to avoid joint injuries and reduce chronic pain/deconditioning. Treatment of the joint problems related to EDS focuses on avoiding activities that cause dislocations and sprains and controlling chronic joint pain. Non-steroidal anti-inflammatory agents are the first medication to try for joint pain. We recommend taking jarv-jvj-efinvap medications such as Ibuprofen or other NSAID on a regular basis for several weeks at a large enough dose to decrease inflammation. It is important to take them on a regular basis. Then, when the pain is better controlled, the dose or frequency of dosing can be changed as needed. If there is stomach upset, it may help to take Prilosec OTC, which is also available without prescription. Take the medicine with a large glass of water or other drink or with food. Other strategies to control pain include using hot or cold packs for 15 minutes at a time, guided imagery/relaxation, mindfulness based stress reduction, Reike and yoga. Some form of exercise (such as wateraerobics, walking, biking) or physical therapy is important to improve muscle tone and strength in order to stabilize the joints. It is important, however, not to overdo the exercise or therapy to avoid making the pain worse. If pain is still a problem even after taking the medicine at a large enough dose on a regular schedule,some patients find that prescription medications are necessary to help control pain. If bruising is an issue, we recommend that he/she take extra vitamin C, 1069-5643 mg per day. Temporomandibular dysfunction due to intrinsic joint instability is common. Headaches, especially migraine, are common, caused at least in part by cervical muscle tension and temporomandibular dysfunction. Handwriting and fine motor skills may be problematic because of finger laxity. Finger ring splints may provide stability and prevent cramping. We also recommend wearing a shoe with a good arch support. Functional bowel disorders are common and underrecognized, affecting up to 50% of individuals withEDS, hypermobility and classic types. Gastroesophageal reflux and gastritis frequently require maximal doses of proton pump inhibitors as well as supplementation with H2-blockers and acid-neutralizing medications. Early satiety and delayed gastric emptying may occur and may be exacerbated by opioid (and other) medications. Irritable bowel syndrome may manifest with diarrhea and/or constipation, associated with abdominal cramping and rectal mucus. Approximately one-third to one-half of individuals with EDS, hypermobility type report atypical chest pain, palpitations at rest or on exertion, and/or orthostatic intolerance. Holter monitoring usually shows normal sinus rhythm, but sometimes reveals premature atrial complexes or paroxysmal supraventricular tachycardia. Tilt table testing sometimes shows neurally mediated hypotension and/or postural orthostatic tachycardia syndrome. About 30% of individuals with all forms of EDS have aortic root dilatation and therefore we recommend that she have an echocardiogram. If current study is normal now, we recommend followup in three to five years. Yearly monitoring of the aorta is not necessary if the baseline examination is normal. documented in this encounter Progress Notes Jocelyn George MD - 02/22/2018 2:30 PM CDT RHEUMATOLOGY CONSULT NOTE This note was generated with voice activated paratransit driver software and may contain typographical and word substitution errors. Consultation was requested by: Alec Milligan MD History of Present Illness 27 year old with history of a previous left L5-S1 laminotomy for S1 radiculopathy who presents now with symptoms of recurrent left leg pain as well as burning in bilateral feet, feet twitching, and burning in abdomen and pelvis since ~08/2017. She last felt well in July. She recalls that the trigger was a homeopathic remedy that she took and immediately had the onset ofburning pain in his feet and patchy distribution involving the pelvic region. It has never resolved.She states these symptoms come and go, and are worse with sitting and with standing, better with lying. The burning sensation is described most often in the plantar aspects of both feet and also throughout the reproductive areas and low back below the SI joints. She has tried homeopathic remedies,and also gabapentin, which has not helped. She has been told she has SI joint weakness, but the low back burning that she feels is different that the SI joint pain that she also experiences. 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 She presents to rheumatology for evaluation of several complaints. She has had an extensive evaluation through neurology at the [facility] after she developed the sudden onset of paresthesias in a patchy distribution over the lower extremities from the waist down. She gives a description of feeling as though she has had a burning match causing a fire in the pelvis. She has also seen a neurologist through the [facility] although those records are not available to review. She has also previously been evaluated at the [facility] for neurology and diagnosed with postural orthostatic tachycardia syndrome. She has had extensive rheumatologic lab testing please see below. There has been a question of whether or not she could have Edson-Danlos syndrome versus Marfan syndrome on the basis of her stretchy skin, flexibility and long digits. She has been put on a waiting list at the [facility] in the genetics department. She has had extensive evaluation of her symptoms which have not identified an underlying cause. Please review below for the imaging details. She has not had any underlying etiology identifying for underlying patchy distribution of pain. [facility] She does not have particular photosensitive joint pain, skin rash, mouth sores, psoriasis, or history of miscarriage. She does have a subjective sensation that her skin feels tight and extensive scleroderma testing has been negative. 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 She was treated with Xarelto for a number of months and is now off of that medication. I believe that she saw an oncologist/undergraduate advisor regarding the findings ofthis clot. She describes an unusual symptom of deep over organ pain where she feels that her ovaries feel on fire. She often feels like a match has been inserted in her rectum and causes fire sensation. She has also had some bladder overflow incontinence. She has never been diagnosed with pelvic floor dysfunction or seen by a urologist. Rheumatologic lab work up: Urinalysis normal, d-dimer 99 (normal) CBC with differential is normal, urine culture is normal, lipase 19 (normal) ferritin 14, LDH 124, sedimentation rate 3, vitamin D 22.9(low) TSH normal, free T4 normal liver profile shows marginally elevated total bilirubin of 1.10 anddirect bilirubin of 0.21 creatinine 0.64, vitamin B1 14, vitamin D 8.5 normal vitamin B12 normal serum folate, C-reactive protein <0.2, , NANCI with 5 day with reflex titer and pattern negative, parathyroid hormone 26, aldolase 3.3, cortisol 13.8, repeat NANCI screen with IFA with reflex titer and pattern again in October 2017 is negative, ANCA screen with reflex titer is negative, Lyme's disease antibody with reflex to blot negative, celiac testing is negative, SCL 70 negative PM SCL negative, fibrillarin negative, U1 SNRNP negative, ionized calcium 5.2, estradiol 126, prolactin 12.1, progesterone 13.2, LH 9.6, FSH 7.0, total complement greater than 60, C3 95 Imaging: Renal US 2018: 1. Normal ultrasound of kidneys. No hydronephrosis. 2. Mild post void residual. EXAM: MRI Cervical, Thoracic and Lumbar Spine without and with IV contrast L5-S1 mild degenerative disc desiccation and bulge. Bulge asymmetrically slightly more pronounced left posterolaterally with mild left foraminal narrowing and mild left anterolateral thecal sac indentation and mild indentation exiting left L5 and expected region left S1 root. Dysplastic appearance left posterior elements at S1, incompletely imaged. If clinically warranted, additional anatomic detail could be obtained with CT. Lumbar findings stable compared with prior 09/23/17. Cerebellar tonsils mildly low-lying but maintain normal rounded configuration w/o mass effect. Otherwise unremarkable. No discrete abnormality of the lumbar spine to suggest a cause for patient's symptoms. MR head: 1. Findings compatible with a tiny right superomedial orbital cephalocele. 2. 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 Abdominal US is normal. US upper extremity venous duplex (left) IMPRESSION: Negative for deep venous thrombosis in the left upper extremity. Resolution of previously identified nonocclusive left IJ thrombus. CT chest PE protocol Mildly suboptimal contrast bolus timing. There is no demonstrated pulmonary embolism. The heart is not enlarged. Thoracic aorta is unremarkable without evidence of dissection or aneurysm. There is no pleural or pericardial effusion. There is no pneumothorax. Adrenal glands are normal. Remainder of the visualized upper abdomen is unremarkable. Past Medical History: GERD and anxiety Past Surgical History: left L5-S1 laminotomy for S1 radiculopathy Medications: Updated in EMR but notable for: Cyclobenzaprine, citalopram, sertraline Adverse Drug Reactions: Cefzil, penicillin, ciprofloxacin Family History: She does not have any family history of rheumatoid arthritis or lupus. She does not have a family history of any conditions such as Marfan syndrome or Edson-Danlos syndrome. She does have a father with Raynaud's syndrome Social History: She is . PAIN & RAPID3: In flowsheet if completed by patient ROS: Comprehensive review of systems form filled out for today's visit was reviewed with the patient, placed into SDOC, and is otherwise negative except: Muscle pain of the back, joint pain of the feet, tight skin of the hands and feet, increased urinary frequency and burning, paresthesias of the feetand legs internal organs near but and vaginal regions. OBJECTIVE: Vital Signs: reviewed and are available in flow sheet General: No acute distress. Pleasant. Conversant. SKIN: Normal skin. No rheumatologic rashes or ulcerations seen. No digital nail pitting. No telangiectasias. No sclerodermatous skin changes. HEENT: Eyes: Pupils equally round and reactive to light. Conjunctivae and lids are normal. ENT: Mucous membranes are moist. No oral lesions are noted. LYMPH: Normal neck and no supraclavicular lymphadenopathy. MUSCULOSKELETAL: Normal range of motion of the neck, back, left upper extremity, right upper extremity, left lower extremity, right lower extremity. Musculoskeletal: Able to extend the knee more than 10?? past 180??, able to extend the elbow 10?? or more past 180??, able to extend the thumb to touch the flexor aspect of the forearm, able to extend a little/fifth finger backwards beyond parallel (over90??) at the posterior forearm. She is not able to Palm the floor with forward trunk flexion. She isable to show the thumb sign. JOINTS: No synovitis is noted of the bilateral wrists, MCPS, PIPS. Knees, ankles, toes, elbows, and shoulders are full range of motion. Hip ROM is full. No dactylitis of any digits is noted. Gait: Assessed and is normal. 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 I have reassured her that I do not see any abnormalities on her lab testing that was suggestive of an underlying rheumatologic disorder. Her imaging of the brain, lumbar spine, thoracic spine about been unremarkable. She is not enthused about undergoing a nother MRI therefore an MRI of the pelvis was not offered. She had had an adverse reaction to the contrast causing a left IJ blood clot in the neck therefore she is not wanting to undergo additional workup with additional MRIs. We did discuss that we could obtain some additional testing including antip hospholipid antibodies, rheumatoid factor, CCP given her unusual paresthesias as well as an HLA B27 given her young age and history of back problems. We will also obtain an NMO antibody given her paresthesias. Ultimately, she is interested in a 2nd opinion through the [facility] neurology evaluation. I do note that she informs me that she did have a small fiber biopsy that did not show any findings of small fiber neuropathy. She recalls that this was performed at the [facility]. She does have several features that could suggest an underlying genetic conditions such as Marfan syndrome or Edson-Danlos syndrome. She is hypermobile on her exam and she is able to show the thumb signwith possible long finger/long toes. [facility]. We have discussed that Edson-Danlos syndrome comprises a group of disorders of connective tissue that involve the joint and skin laxity and arterial wall abnormalities. We have discussed increased joint mobility and increased skin fragility and hyperextensibility. We discussed the wide variety in joint, skin, and internal organ involvement. 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 The collagen/ECM protein defect is unknown. The inheritance is autosomal dominant. Hypermobile joints exist in 65% of first-degree relatives. We discussed that benign joint hypermobility syndrome has a familial predisposition (70%) and is common in young females. It is shown to have various degrees of joint laxity without instability or disability. Generally, it is important cause of periarticular complaints. We discussed the patient's can o ften have arthralgias and frequent ankle or wrist sprains. We discussed that much about prolapse hasalso been associated with her mobility. We discussed the relationship between chronic fatigue and pain amplification/fibromyalgia-like) has been reported more frequent in patients with benign joint hypermobility syndrome. We discussed that the connective tissue defect responsible for benign joint hypermobility syndrome is unknown. We discussed that benign hypermobility syndrome was formerly known as EDS hypermobile type (EDS III). We discussed that the 2 diseases likely represent a continua. However, we discussed that there is no genetic testing available for benign joint hypermobility syndrome or Edson-Danlos syndrome type III. We recommend that (she/he) avoid activities that elicit pain and subluxation to the joints. We do, however, want (her/him) to have physical activity since this will help keep the muscles toned which inturn stabilizes the joints. Adults with EDS need a personalized physical daily activity program to avoid joint injuries and reduce chronic pain/deconditioning. Treatment of the joint problems related to EDS focuses on avoiding activities that cause dislocations and sprains and controlling chronic joint pain. Non-steroidal anti-inflammatory agents are the first medication to try for joint pain. We recommend taking rzoq-uph-xauqzbj medications such as Ibuprofen or other NSAID on a regular basis for several weeks at a large enough dose to decrease inflammation. It is important to take them on a regular basis. Then, when the pain is better controlled, the dose or frequency of dosing can be changed as needed. If there is stomach upset, it may help to take Prilosec OTC, which is also available without prescription. Take the medicine with a large glass of water or other drink or with food. Other strategies to control pain include using hot or cold packs for 15 minutes at a time, guided imagery/relaxation, mindfulness based stress reduction, Reike and yoga. Some form of exercise (such as wateraerobics, walking, biking) or physical therapy is important to improve muscle tone and strength in order to stabilize the joints. It is important, however, not to overdo the exercise or therapy to avoid making the pain worse. If pain is still a problem even after taking the medicine at a large enough dose on a regular schedule,some patients find that prescription medications are necessary to help control pain. If bruising is an issue, we recommend that she take extra vitamin C, 1000- 2000 mg per day. Temporomandibular dysfunction due to intrinsic joint instability is common. Headaches, especially migraine, are common, caused at least in part by cervical muscle tension and temporomandibular dysfunction. Handwriting and fine motor skills may be problematic because of finger laxity. Finger ring splints may provide stability and prevent cramping. We also recommend wearing a shoe with a good arch support. Functional bowel disorders are common and underrecognized, affecting up to 50% of individuals withEDS, hypermobility and classic types. Gastroesophageal reflux and gastritis frequently require maximal doses of proton pump inhibitors as well as supplementation with H2-blockers and acid-neutralizing medications. Early satiety and delayed gastric emptying may occur and may be exacerbated by opioid (and other) medications. Irritable bowel syndrome may manifest with diarrhea and/or constipation, associated with abdominal cramping and rectal mucus. Approximately one-third to one-half of individuals with EDS, hypermobility type report atypical chest pain, palpitations at rest or on exertion, and/or orthostatic intolerance. Holter monitoring usually shows normal sinus rhythm, but sometimes reveals premature atrial complexes or paroxysmal supraventricular tachycardia. Tilt table testing sometimes shows neurally mediated hypotension and/or postural orthostatic tachycardia syndrome. About 30% of individuals with all forms of EDS have aortic root dilatation and therefore we recommend that she have an echocardiogram. If current study is normal now, we recommend followup in three to five years. Yearly monitoring of the aorta is not necessary if the baseline examination is normal. Wediscussed that she would set this up. Finally, regarding her constellation of pelvic symptoms, I think that maybe urogynecology would be the next evaluation for her to see if she has any bladder overflow incontinence contributing or pelvicfloor dysfunction. Retun visit as needed All of the patient's questions were answered to the best of my ability. Thank you for involving me in the care of this very pleasant patient. documented in this encounter Plan of Treatment Upcoming Encounters Date Type Specialty Care Team Description 07/04/2022 Appointment Otolaryngology Opal Richardson MD [address] [place] [address] (Wo rk) 07/22/2022 Appointment Endocrinology Luis Daniel Bradley, GARRETT [address] [facility] [address] [address] Scheduled Referrals Name Type Priority Associated Diagnoses Order S chedule Neurology Consult-Adults Referral Routine Thrombosis of le ft Ordered: 02/22/2018 jugular vein Postural orthostatic tachycardia syndrome Urogynecology Referral Routine Urinary frequenc y Ordered: 02/22/2018 Consult-Adult Pain in joint involving pelvic region and thigh, unspecified laterality documented as of this encounter Visit Diagnoses Diagnosis Paresthesia - Primary Disturbance of skin sensation Hypermobility, syndrome Thrombosis of left jugular vein Acute venous embolism and thrombosis of other specified veins Postural orthostatic tachycardia syndrom e Tachycardia, unspecified Urinary frequency Pain in joint involving pelvic region an d thigh, unspecified laterality documented in this encounter Care Teams Fibre Technologist Relationship Specialty Start Date End Date Needs Pcp, Assignment PCP - General 07/07/17 12/12/19 [place] [address] documented as of this encounter
--- OUTSIDE RECORDS SUMMARY | 2022-06-23 17:55 | XMS_ITS | Encounter Summary ---
:1990 [facility] Address [address] [place] [address] Care Team Providers Name Role Phone Needs Pcp, Assignment Primary Care Provider Reason for Visit Reason Comments HIP PAIN Encounter Details Date Type Department Care Team Description 07/24/2018 Office Visit [facility] Matteo Serrano, Mohsen dominguez f gluteus [facility] left lower [address] [address] [facility] [address] extremity, initial [place], [place] [address] [address] [place] [address] encounter (Primary Dx) [phone] Social History Tobacco Use Types Packs/Day Years Used Date Smoking Tobacco: Never Smokeless Tobacco: Never Sex Assigned at Date Recorded Not on file documented as of this encounter Last Filed Vital Signs Vital Sign Reading Time Taken Comments Blood Pressure - - Pulse - - Temperature 36.9 ??C (98.4 ??F) 07/24/2018 12:35 PM DAIRY EQUIPMENT REPAIRER Respiratory Rate - - Oxygen Saturation - - Inhaled Oxygen Concentration - - Weight 50.8 kg (112 lb) 07/24/2018 12:35 PM DAIRY EQUIPMENT REPAIRER Height 170.2 cm (5' 7) 07/24/2018 12:35 PM DAIRY EQUIPMENT REPAIRER Body Mass Index 17.54 07/24/2018 12:35 PM DAIRY EQUIPMENT REPAIRER documented in this encounter Patient Instructions Patient InstructionsEri Rose RN - 07/24/2018 11:[address] Matteo Serrano MD Sports & Orthopaedic Medicine [facility] Medication Requests: Prescriptions are not filled on Weekends or on Weekdays after 3:00PM For all medication refills: Request a refill using MyChart or contact your Pharmacy [facility] Nurse Line: Please contact [facility] Nurse line for all medical requests and questions at [phone] Edge Finisher: Please call Chica Mehta for all administrative questions at MRI Scheduling: To schedule an MRI at [facility] please call [phone] Phone lines are answered 8AM to 5PM Thursday - Thursday. Workers??? Compensation: Please contact our department for any Work Comp concerns at Email: [email or web address] Appointment Scheduling: Can be done at the front clerk or by calling our main number [phone] Y EQUIPMENT REPAIRER documented in this encounter Progress Notes Matteo Serrano MD - 07/24/2018 11:50 AM CST Destiney Cassidy [id number] 1990 [facility] Orthopaedic Center Acute [facility] 07/24/2018 Chief Complaint: Left hip pain History of Present Illness: Destiney Cassidy is a 27 y.o. female status-post lumbar decompression with Dr. Sun who presents for evaluation of left hip pain which began 07/20/18. She had not exercised for a while and felt some lateral hip pain after performing a lot of step exercises for the butt and glute. There was some occasional sciatica like pain. After returning to work, she turned, twisted her leg, and felt something tear in the hip. Since then, she has been using crutches for ambulation and the tingling goes down to the foot. There is sharp pain in the hip when she transitions from a standing to sitting position.Symptoms are worse when walking and sitting. Laying down reduces the pain. She has tried ice, rest, and ibuprofen. Of note, she reports that her decompression was not very beneficial for her pain. Review of Systems: Reports numbness and tingling. The patient denies fever or rash. Past Medical History: Thrombosis of left jugular vein Hypermobility, syndrome Paresthesia Postural orthostatic tachycardia syndrome Past Surgical History: Lumbar decompression surgery Family History: The patient denies any family history of joint problems, muscle problems, diabetes, RA, cancer, boneproblems, heart problems, Marfan's, or early . 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 Patient is a non-smoker. Physical Exam: Temp 36.9 ??C (98.4 ??F) (Tympanic) Ht 1.702 m (5' 7) Wt 50.8 kg (112 lb) BMI 17.54 kg/m?? General: She is alert, cooperative, in no acute distress.?? Mood and affect are appropriate.?? Cardiovascular: Posterior tibial pulses are palpable bilaterally. Back: She ambulates with a crutches SI provocation tests are negative. Neuro:??She has 5/5 strength throughout the bilateral lower extremities. She has 3+ patellar and 2+ Achilles reflexes bilaterally.??Sensation is impaired to light touch over the lateral aspect of the left foot. Otherwise sensation is intact to light touch throughout the bilateral lower extremities. Imaging: MR of the lumbar spine (September 2017, taken at [facility]): CONCLUSION: Overall unchanged MRI appearance of the lumbar spine with left L5-S1 hemilaminectomy/partial facetectomy, a transitional L5 segment and the following notable findings: 1. No disc herniation, significant central stenosis, acute fracture, impingement of the cauda equina, intradural mass, infection or evidence of arachnoidal adhesive disease. 2. Unchanged chronic/complete right L5 spondylolysis with unchanged 1 to 2 mm lytic anterolisthesis of L5 on S1. 3. Unchanged chronic mild to moderate left L5-S1 foraminal narrowing or exiting ganglionic compression. 4. Unchanged mild left L4-5 facet arthrosis. Report per radiology. Diagnostic Impression: Glute medius strain Plan: Educated the patient regarding her condition and management. After a discussion recommended conservative management. The patient verbalized understanding. Follow-up as needed. If pain persists, we may consider an updated MR of the lumbar spine. All questions were answered. Scribe Disclosure: Shania Whipple, am serving as a scribe to document services personally performed by Matteo Serrano MD at this visit, based upon the provider's statements to me. All documentation has been reviewed bythe aforementioned provider prior to being entered into the official medical record. Portions of this medical record were completed by a scribe. UPON MY REVIEW AND AUTHENTICATION BY ELECTRONIC SIGNATURE, this confirms (a) I performed the applicable clinical services, and (b) the recordis accurate. Matteo Serrano MD Y EQUIPMENT REPAIRER documented in this encounter Plan of Treatment Upcoming Encounters Date Type Specialty Care Team Description 07/04/2022 Appointment Otolaryngology Opal Richardson MD [address] [facility] [address] [address] (Wo rk) 07/22/2022 Appointment Endocrinology Luis Daniel Bradley MBBS [address] [facility] N [id number] documented as of this encounter Visit Diagnoses Diagnosis Strain of gluteus medius of left lower e xtremity, initial encounter - Primary documented in this encounter Care Teams Electrodynamicist Relationship Specialty Start Date End Date Needs Pcp, Assignment PCP - General 07/07/17 12/12/19 [place], [place] [id number] documented as of this encounter
--- OUTSIDE RECORDS SUMMARY | 2022-06-23 17:55 | XMS_ITS | Encounter Summary ---
:1990 Author [email or web address] Address [address], [place] [address] Care Team Providers Name Role Phone Needs Pcp, Assignment Primary Care Provider Encounter Details Date Type Department Care Team Description 02/22/2018 Notes/Orders Rebecca Luque & Specialty Jocelyn Adams MD Center - Rheumatolog y [address] [facility] [address] [place] [address] [place], [place] [address] [phone] Social History Tobacco Use Types Packs/Day Years Used Date Smoking Tobacco: Never Assessed Sex Assigned at Date Recorded Not on file documented as of this encounter Progress Notes Maki Doyle LPN - 02/22/2018 1:40 PM CDT Patient referred to have ECHO done, is going to [facility] in [place]. Appt is scheduled on 03/05/18, echo order faxed to [phone]. Also requested results faxed back to Dr. George @ [phone] once completed. documented in this encounter Plan of Treatment Upcoming Encounters Date Type Specialty Care Team Description 07/04/2022 Appointment Otolaryngology Opal Richardson MD [address] [facility] [address] (Wo rk) 07/22/2022 Appointment Endocrinology Luis Daniel Bradley, EVELYNBS [address] [facility] [address] documented as of this encounter Visit Diagnoses Not on filedocumented in this encounter Care Teams Network Systems Operator Relationship Specialty Start Date End Date Needs Pcp, Assignment PCP - General 07/07/17 12/12/19 [place], [place] [id number] documented as of this encounter
--- OUTSIDE RECORDS SUMMARY | 2022-06-23 17:55 | XMS_ITS | Encounter Summary ---
:1990 Author Organization [facility] Address [address] [place] [address] Care Team Providers Name Role Phone Needs Pcp, Assignment Primary Care Provider Reason for Referral Therapies (Routine) - Closed Specialty Diagnoses / Procedures Referred By Contact Refer red To Contact Diagnoses Sacroiliac joint pain (HRC) aMtteo Serrano MD [address] [facility] [address] [place] [address] Referral ID Status Reason Start Date Expiration Date Visits Requ ested Visits Authorized [id number] Closed 08/21/2018 10/20/2018 1 1 Scheduling Instructions Your provider has recommended an appoint ment with [facility]. You may call [phone] to schedule your appoi ntment. If you do not schedule an appointment within the next 1 to 3 business days, we will call you to help arrange your appointment. We suggest you call your [facility] insurance company about your coverage and benefits for this appointment. AL SCIENCE MANAGER Procedure/Equipment (Routine) - Incomplete Specialty Diagnoses / Procedures Referred By Contact Refer red To Contact Diagnoses Sacroiliac joint pain (HRC) Matteo Serrano MD Procedures XR Sacrum/Coccyx [address] [place] [address] Referral ID Status Reason Start Date Expiration Date Visits V isits Requested Authorized [id number] Incomplete 08/21/2018 11/20/2019 1 1 AL SCIENCE MANAGER Procedure/Equipment (Routine) - Incomplete Specialty Diagnoses / Procedures Referred By Contact Refer red To Contact Diagnoses Sacroiliac joint pain (HRC) Matteo Serrano MD Procedures XR Lumbar Spine 2-3 Views [address] [facility] JES[address]S [place] [address] Referral ID Status Reason Start Date Expiration Date Visits V isits Requested Authorized [id number] Incomplete 08/21/2018 11/20/2019 1 1 AL SCIENCE MANAGER Reason for Visit Reason Comments Back Pain Encounter Details Date Type Department Care Team Description 08/21/2018 Office Visit [facility] Matteo Serrano, Sacroili ac joint pain Urgent Care MD (Primary Dx) [address] [facility] [address] [place] [address] JESÚS [place] [address] [place] [address] Social History Tobacco Use Types Packs/Day Years Used Date Smoking Tobacco: Never Smokeless Tobacco: Never Sex Assigned at Date Recorded Not on file documented as of this encounter Last Filed Vital Signs Vital Sign Reading Time Taken Comments Blood Pressure - - Pulse - - Temperature 36.7 ??C (98 ??F) 08/21/2018 9:36 AM SOCIAL SCIENCE MANAGER Respiratory Rate - - Oxygen Saturation - - Inhaled Oxygen Concentration - - Weight 51.3 kg (113 lb 1.6 oz) 08/21/2018 9:36 AM SOCIAL SCIENCE MANAGER Height 168.9 cm (5' 6.5) 08/21/2018 9:36 AM SOCIAL SCIENCE MANAGER Body Mass Index 17.98 08/21/2018 9:36 AM SOCIAL SCIENCE MANAGER documented in this encounter Patient Instructions Patient InstructionsYin Schwartz RN - 08/21/2018 9:[address] Matteo Serrano MD Sports & Orthopaedic Medicine [facility] Medication Requests: Prescriptions are not filled on Weekends or on Weekdays after 3:00PM For all medication refills: Request a refill using MyChart or contact your Pharmacy Acute [facility] Nurse Line: Please contact [facility] Nurse line for all medical requests and questions at [phone] Post Tronic Machine Operator: Please call Chica Mehta for all administrative questions at MRI Scheduling: To schedule an MRI at [facility] please call [phone] Phone lines are answered 8AM to 5PM Thursday - Thursday. Workers??? Compensation: Please contact our department for any Work Comp concerns at Email: [email or web address] joint pain Start physical therapy Follow up if not better AL SCIENCE MANAGER documented in this encounter Progress Notes Matteo Serrano MD - 08/21/2018 9:40 AM CST Destiney Cassidy [id number] 1990 [facility] Orthopaedic Center Acute Injury Clinic 08/21/2018 Chief Complaint: Low back injury History of Present Illness: Destiney Cassidy is a 27 y.o. female who presents for evaluation of low back injury. The patient reports that she was walking down a set of stairs on 08/14/2018 when she slipped and landed on her buttocksand sliding down a couple more steps. She localizes her tearing pain to the low back and buttocks. Her pain gets worse with movement, while it gets better with neutral positioning. She has used conservative management and OTC pain medication as treatment. There have not been any sensations of weakness. Review of Systems: The patient denies fever or rash. Past Medical History: The patient denies diabetes, stomach problems, or joint problems. Past Surgical History: L5-S1 decompression, 2010 Family History: The patient denies any family history of joint problems, muscle problems, diabetes, RA, cancer, boneproblems, heart problems, Marfan's, or early . 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 Patient is a nonsmoker. Physical Exam: Temp 36.7 ??C (98 ??F) (Tympanic) Ht 1.689 m (5' 6.5) Wt 51.3 kg (113 lb 1.6 oz) BMI 17.98 kg/m?? General: She is alert, cooperative, in no acute distress.?? Mood and affect are appropriate.?? Cardiovascular: Posterior tibial pulses are palpable bilaterally. Back: She ambulates with a normal gait and performs transitional movements with some difficulty. With lumbar flexion patient can reach mid segal, limited by pain. Lumbar extension is full. Neuro:??She has 5/5 strength throughout the bilateral lower extremities. Sensation is intact to light touch over the L3, L4, L5 and S1 dermatomes bilaterally..?? Imaging: Radiographs of the sacrum/ Coccyx - 2+ views (08/21/18): Bony structures appear intact with no fracture seen. ??Joint spaces are within normal limits. Radiographs of the lumbar spine - 2+ views (08/21/18): No fracture or subluxation of the lumbosacral vertebral bodies is identified. Very mild disc height loss at L5-S1. No change in alignment between flexion and extension. MRI of the lumbar spine - (08/17/18): Small left subarticular and foraminal disc protrusion at L5-S1 causing moderate left neural foraminal narrowing. This is unchanged since previous MR 09/19/2017. Report per radiology. I ordered and independently reviewed and interpreted the imaging studies above; the results were discussed with the patient. Diagnostic Impression: 1. SI joint pain Plan: Educated the patient regarding her condition and management. After a discussion recommended beginning a course of physical therapy. The patient verbalized understanding. Follow-up as needed. Scribe Disclosure: Nestor Whipple, am serving as a scribe to document services personally performed by Matteo Serrano MD at this visit, based upon the provider's statements to me. All documentation has been reviewed by the aforementioned provider prior to being entered into the official medical record. Portions of this medical record were completed by a scribe. UPON MY REVIEW AND AUTHENTICATION BY ELECTRONIC SIGNATURE, this confirms (a) I performed the applicable clinical services, and (b) the recordis accurate. Matteo Serrano MD AL SCIENCE MANAGER documented in this encounter Plan of Treatment Upcoming Encounters Date Type Specialty Care Team Description 07/04/2022 Appointment Otolaryngology Opal Richardson MD [address] [facility] [address] (Wo rk) 07/22/2022 Appointment Endocrinology Luis Daniel Bradley, EVELYNBS [address] [facility] [address] [place] [address] [address] Scheduled Referrals Name Type Priority Associated Diagnoses Order S chedule Physical Therapy Referral Routine Sacroiliac joint pain Or dered: 08/21/2018 documented as of this encounter Results XR Sacrum/Coccyx (08/21/2018 10:30 [...] normal limits. Matteo Serrano MD RAD GD XR Lumbar Spine 2-3 Views (08/21/2018 10:30 AM SOCIAL SCIENCE MANAGER) Anatomical Region Laterality Modality Spine, L-Spine Digital Radiography Specimen (Source) Anatomical Collection Method Collection Time Re ceived Time Location / / Volume Laterality 08/21/2018 10:14 AM SOCIAL SCIENCE MANAGER Narrative 08/21/2018 11:00 AM SOCIAL SCIENCE MANAGER COMPARISON: ??None. FINDINGS: ??No fracture or subluxation [...] documented in this encounter Visit Diagnoses Diagnosis Sacroiliac joint pain (HRC) - Primary Disorders of sacrum Injury of back, initial encounter Injury of back, initial encounter documented in this encounter Care Teams Family Practitioner Relationship Specialty Start Date End Date Needs Pcp, Assignment PCP - General 07/07/17 12/12/19 [place], [place] [id number] documented as of this encounter
--- OUTSIDE RECORDS SUMMARY | 2022-06-23 17:56 | XMS_ITS | Encounter Summary ---
:1990 Author Reason for Visit None recorded. Assessment and Plan 1. Pruritus of skin ? US, obstetric, biophysical profile 2. Gestation period, 35 weeks Discussion Note: None recorded.Patient educational handouts: No information available. Plan of Care Reminders Provider Appointments None recorded. ? ? Lab None recorded. ? ? Referral None recorded. ? ? Procedures None recorded. ? ? Surgeries None recorded. ? ? Imaging US, Obstetric, Biophysical 05/15/2022 [facility] Medications Name Start Date ? ? alcohol swabs ? chlorhexidine gluconate 0.12 % mouthwash ? clotrimazole 10 mg pedro ? dexamethasone 4 mg tablet ? enoxaparin 40 mg/0.4 mL subcutaneous syringe ? Lidocaine Viscous 2 % mucosal solution ? Macrobid 100 mg capsule ? Take 1 capsule every 12 hours by oral route for 5 day s. nystatin 100,000 unit/mL oral suspension ? oxycodone 5 mg tablet ? Take by oral route for 4 days. Vitamin ? promethazine 25 mg tablet ? TAKE 1 TABLET BY MOUTH EVERY 4 TO 6 HOURS triamcinolone acetonide 0.1 % dental paste ? valacyclovir 1 gram tablet ? Medications Administered None recorded. Vitals None recorded. Results Lab Results None recorded. Allergies Code Code System Name Reaction Severity Onset Cefzil ? ? ? Ciprofloxacin Hcl ? ? ? Penicillins ? ? ? Problems Name Status Onset Date Source ? 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 Active 11/08/2021 ? Graves' Disease Active ? ? Procedures Date Name Performed by ? 08/25/2020 Caesarean Section Information not avai lable 02/22/2011 Orthopedic Surgery Information not avai lable ? Tooth Extraction Information not avai lable Notes: *Surgery Date: 2009 ? Laminectomy Information not avai lable Notes: 02/2011; L5/S1 laminotomy in 201 1 with residual symptoms ? Tonsillectomy Information not avai lable Notes: *Surgery Date: 199404/29/2022 US, Obstetric, Follow-up [id number]_kuxniqrwqhilario diana [address] [place] [address] [place] [phone] (Work Place) 05/07/2022 US, Obstetric, Biophysical Profile CcBryant webster [address] [place] [address] [place] [id number] (Work Place) 05/15/2022 US, Obstetric, Biophysical Profile CcBryant sancheza [address] [place] [address] [place] [phone] (Work Place) 05/15/2022 Non-stress Test Hy407_klkghdmzv_lapz [place] [address] [place] [address] (Work Place) Vaccine List Vaccine Type DTaP 03/01/1991 04/26/1991 07/07/1991 08/27/1992 03/04/1996 Hep A, ped/adol, 2 dose 09/22/2008 11/09/2009 Hep B, adolescent or pediatric 10/06/2002 11/07/2002 04/28/2003 Hib (PRP-T) 03/01/1991 04/26/1991 07/07/1991 04/06/1992 IPV 03/01/1991 04/26/1991 08/27/1992 03/04/1996 meningococcal MCV4P 09/22/2008 MMR 04/06/1992 05/28/2001 Td (adult) preservative free 01/03/2003 Tdap 09/22/2008 Social History Tobacco Smoking Status Never Smoker What is your level of alcohol consumption? None How many times per week do you consume alcohol? 1-2 times pe r week Spouse/Partners Name Benjie What is your level of caffeine consumption? None Do you use any illicit or recreational drugs? 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 Family History Relation Problem Onset Age of Age Notes Father Blood coagulation disorder 45 N/A ( No Notes) Functional Status Unknown. Past Encounters Encounter Date Diagnosis Provider 05/15/2022 Gestation Period, 35 Weeks; Pruritus KALYANI Potts: [address]; Marginal Insertion of [address], [address], Umbilical Cord; [place] [address], Ph. Premature Rupture of Membranes; History of Herpes Zoster; History of Graves' Disease; Ultrasound Scan Abnormal 05/15/2022 Pruritus of Skin; Gestation Period, Fanny Messina MD: [address] 35 Weeks [address], [facility] [address], [place] [address], Ph. 05/13/2022 Pruritus of Skin Faith Pearson MD: [address], [facility] [address], [place] [address], Ph. 05/12/2022 Vaginal Discharge; Gestation Period, Juliana Flowers MD: [address] 35 Weeks; Supervision of High Risk [address], [address], [place] [address], Ph. Section Done; History of Premature Delivery; Marginal Insertion of Umbilical Cord 05/07/2022 Urgent Desire to Urinate; Gestation Kimberly Ramsay MD: [address] Period, 34 Weeks [address], [address] [address], Ph. 05/07/2022 Reduced Amniotic Fluid; Gestation Beena Messina MD: 305 [facility] Period, 34 Weeks [address], [address] [address], Ph. 04/29/2022 [place]enton Becerra Contractions; Marginal Marga Ramsay MD: [address] Insertion of Umbilical Cord [address]bel [address], [facility] [address] [address], Ph. 04/29/2022 Marginal Insertion of Umbilical Belkis Messina MD: [address]; Gestation Period, 33 Weeks [facility] [address], [place] [address], Ph. [phone] 04/25/2022 Gestation Period, 32 Weeks; History Lucy tram Emery MD: [address]; History of [address]bel [place], [address], [place] [address], Ph. 04/22/2022 Irregular Uterine Contractions; Kimberly sheppard MD: [address] Gestation Period, 32 Weeks [address], [address], [place] [address], Ph. 04/16/2022 Pruritus of Skin; Gestation Period, KALYANI Peña: [address] 31 Weeks; History of [address] [place], [address], Section; History of Graves' Disease; [place] [address], Ph. Marginal Insertion of Umbilical Cord; History of Premature Rupture of Membranes; History of Thromboembolism; Anemia of ; Restless Legs History of Present Illness None recorded. Review of Systems None recorded. Physical Exam None recorded.
--- OUTSIDE RECORDS SUMMARY | 2022-06-23 17:56 | XMS_ITS | Encounter Summary ---
:1990 Author Reason for Visit None recorded. Assessment and Plan 1. Marginal insertion of umbilical cord ? US, obstetric, biophysical profile 2. Gestation period, 38 weeks Discussion Note: None recorded.Patient educational handouts: No information available. Plan of Care Reminders Provider Appointments None recorded. ? ? Lab None recorded. ? ? Referral None recorded. ? ? Procedures None recorded. ? ? Surgeries None recorded. ? ? Imaging US, Obstetric, Biophysical 06/03/2022 Cc0 04_[place] Profile Medications Name Start Date ? ? [...] Information not avai lable Notes: *Surgery Date: 199405/07/2022 US, Obstetric, Biophysical Profile CcBryant _ras_[place] [address] [place] [address] [place] [phone] (Work Place) 05/15/2022 US, Obstetric, Biophysical Profile CcBryant _aceedina [address] [place] [address] [place] [phone] (Work Place) 05/15/2022 Non-stress Test [id number][facility]vpmr[facility]v [facility] [address] [facility] [address] [place] [phone] (Work Place) 05/20/2022 US, Obstetric, Biophysical Profile CcBryant sancheza [address] [place] [address] [place] [phone] (Work Place) 05/20/2022 US, Obstetric, Follow-up Fm751_qwjzqtaylhilario luquea [address] [place] [address] [place] [phone] (Work Place) 05/27/2022 US, Obstetric, Biophysical Profile CcBryant sancheza [address] [place] [address] [place] [phone] (Work Place) 06/03/2022 US, Obstetric, Biophysical Profile CcBryant sancheza [address] [place] [address] [place] [phone] (Work Place) Vaccine List Vaccine Type DTaP [...] Unknown. Past Encounters Encounter Date Diagnosis Provider 06/03/2022 Gestation Period, 38 Weeks Kimberly Ramsay MD: [address], [address] [address], Ph. 06/03/2022 Marginal Insertion of Umbilical Miranda gilliland MD: 305 [facility] Cord; Gestation Period, 38 Weeks Betty Crews, [address] [address], Ph. 05/28/2022 Tanmay Becerra Contractions Kimberly Ramsay MD: 305 [facility] [address], [address] [address], Ph. 05/27/2022 Gestation Period, 37 Weeks Kimberly Ramsay MD: 305 [facility] [address], [address] [address], Ph. 05/27/2022 Marginal Insertion of Umbilical Belkis Messina MD: 305 [facility] Cord; Gestation Period, 37 Weeks Betty Crews, [address] [address], Ph. 05/21/2022 Gestation Period, 36 Weeks; History Kimberly Ramsay MD: [address], [address] [address], Ph. 05/20/2022 Marginal Insertion of Umbilical Miranda gilliland MD: 305 [facility] Cord; Gestation Period, 36 Weeks Betty Crews [address], [place] [address], Ph. 05/16/2022 Routine Care; Gestation Kimberly corral MD: [address] Period, 35 Weeks [address], [address], [place] [address], Ph. 05/15/2022 Gestation Period, 35 Weeks; Pruritus KALYANI Potts: [address]; Marginal Insertion of [address] [place], [address], Umbilical Cord; [place] [address], Ph. Premature Rupture of Membranes; History of Herpes Zoster; History of Graves' Disease; Ultrasound Scan Abnormal 05/15/2022 Pruritus of Skin; Gestation Period, Fanny Messina MD: [address] 35 Weeks [address], [address], [place] [address], Ph. 05/13/2022 Pruritus of Skin Faith Pearson MD: [address], [address], [place] [address], Ph. 05/12/2022 Vaginal Discharge; Gestation Period, Juliana wanda Flowers MD: [address] 35 Weeks; Supervision of High Risk [address], [address], [place] [address], Ph. Section Done; History of Premature Delivery; Marginal Insertion of Umbilical Cord 05/07/2022 Urgent Desire to Urinate; Gestation Kimberly Ramsay MD: [address] Period, 34 Weeks [address], [address], [place] [address], Ph. 05/07/2022 Reduced Amniotic Fluid; Gestation Beena Messina MD: [address] Period, 34 Weeks [address], [address], [place] [address], Ph. History of Present Illness None recorded. Review of Systems None recorded. Physical Exam None recorded.
--- OUTSIDE RECORDS SUMMARY | 2022-06-23 17:56 | XMS_ITS | Encounter Summary ---
:1990 Author Reason for Visit *OB ROUTINE Assessment and Plan 1. Routine care ? streptococcus group B DNA 2. Gestation period, 35 weeks Discussion Note: None recorded.Patient educational handouts: No information available. Plan of Care Reminders Provider Appointments None recorded. ? ? Lab Streptococcus Group B DNA 05/16/2022 M Ishmael Monique Referral None recorded. ? ? Procedures None recorded. ? ? Surgeries None recorded. ? ? Imaging None recorded. ? ? Medications Name Start Date ? ? alcohol [...] tablet ? Medications Administered None recorded. Vitals Height Weight BMI Blood Pressure 5 ft 6 in 167.2 lbs 27 kg/m2 114/76 mm[Hg] Results Lab Results Date Name Specimen Result Interpretation Description Value Range Status Address ? 05/16/2022 Streptococcus Vaginal ? Group negative negative [facility] B DNA B Strep [place]: PCR [address], [place] Allergies Code Code System Name Reaction Severity [...] Notes: *Surgery Date: 199404/29/2022 US, Obstetric, Follow-up Chace diana [address] [place] [address] [place] [phone] (Work Place) 05/07/2022 US, Obstetric, Biophysical Profile CcBryant villatoro_[place] [address] [place] [address] [place] [phone] (Work Place) 05/15/2022 US, Obstetric, Biophysical Profile CcBryant villatoro_dariusza [address] [place] [address] [place] [phone] (Work Place) 05/15/2022 Non-stress Test Up260_gaiickfqk_hsdj [facility] [address] [facility] [address] [place] [address] (Work Place) Vaccine List [...] Unknown. Past Encounters Encounter Date Diagnosis Provider 05/16/2022 Routine Care; Gestation Kimberly corral MD: [address] Period, 35 Weeks [address], [address], [place] [address], Ph. 05/15/2022 Gestation Period, 35 Weeks; Pruritus Amy KALYANI Lawson: [address]; Marginal Insertion of [address] [place], [address], Umbilical Cord; [place] [address], Ph. Premature Rupture of Membranes; History of Herpes Zoster; History of Graves' Disease; Ultrasound Scan Abnormal 05/15/2022 Pruritus of Skin; Gestation Period, Fanny Messina MD: [address] 35 Weeks [address], [address], [place] [address], Ph. 05/13/2022 Pruritus of Skin Faith Pearson MD: [address], [address], [place] [address], Ph. 05/12/2022 Vaginal Discharge; Gestation Period, Juliana Flowers MD: [address] 35 Weeks; Supervision of High Risk [address], [address], [place] [address], Ph. Section Done; History of Premature Delivery; Marginal Insertion of Umbilical Cord 05/07/2022 Urgent Desire to Urinate; Gestation Kimberly Ramsay MD: [address] Period, 34 Weeks [address], [address], [place] [address], Ph. 05/07/2022 Reduced Amniotic Fluid; Gestation Beena Messina MD: [address] Period, 34 Weeks [address], [address], [place] [address], Ph. 04/29/2022 Tanmay Becerra Contractions; Marginal Marga Ramsay MD: [address] Insertion of Umbilical Cord Rebel [address], [address], [place] [address], Ph. 04/29/2022 Marginal Insertion of Umbilical Belkis Messina MD: [address]; Gestation Period, 33 Weeks [place], [address], [place] [address], Ph. [phone] 04/25/2022 Gestation Period, 32 Weeks; History [place] tram Emery MD: [address]; History of [address] [place], [address], [place] [address], Ph. 04/22/2022 Irregular Uterine Contractions; Kimberly sheppard MD: [address] Gestation Period, 32 Weeks [address], [address], [place] [address], Ph. 04/16/2022 Pruritus of Skin; Gestation Period, Maria Del Carmen Monzon, [facility]: [address] 31 Weeks; History of [address] [place], [address], Section; History of Graves' Disease; [place] [address], Ph. Marginal Insertion of Umbilical [phone] Cord; History of Premature Rupture of Membranes; History of Thromboembolism; Anemia of ; Restless Legs History of Present Illness None recorded. Review of Systems None recorded. Physical Exam None recorded.
--- OUTSIDE RECORDS SUMMARY | 2022-06-23 17:56 | XMS_ITS | Encounter Summary ---
:1990 Author Reason for Visit *OB ROUTINE Assessment and Plan 1. Gestation period, 38 weeks Discussion Note: None [...] tablet ? Medications Administered None recorded. Vitals Weight Blood Pressure 171 lbs 120/70 mm[Hg] Results Lab Results None recorded. Allergies Code [...] *Surgery Date: 199405/07/2022 US, Obstetric, Biophysical Profile Cc004 _southbecky_osvaldo [address] [place] [address] [place] [phone] (Work Place) 05/15/2022 US, Obstetric, Biophysical Profile CcBryant _aceedina [address] [place] [address] [place] [phone] (Work Place) 05/15/2022 Non-stress Test Vk268[facility]yspiwalbi[facility]vsbf [facility] [address] [facility] [address] [place] [address] (Work Place) 05/20/2022 US, Obstetric, Biophysical Profile Cc004 _aceedina [address] [place] [address] [place] [phone] (Work Place) 05/20/2022 US, Obstetric, Follow-up Tl217_louwlqtkp _[place] [address] [place] [address] [place] [phone] (Work Place) 05/27/2022 US, Obstetric, Biophysical Profile CcBryant _mary anna [address] [place] [address] [place] [phone] (Work Place) 06/03/2022 US, Obstetric, Biophysical Profile CcBryant _aceedina [address] [place] [address] [place] [phone] (Work Place) Vaccine List Vaccine Type DTaP [...] 38 Weeks Kimberly Ramsay MD: [address], [address] [address], Ph. 06/03/2022 Marginal Insertion of Umbilical Miranda gilliland MD: 305 [facility] Cord; Gestation Period, 38 Weeks Betty rodriguez [place] [address], Ph. 05/28/2022 [place] Bec[place] Contractions Kimberly Ramsay MD: 305 [facility] [place], [address] [address], Ph. 05/27/2022 Gestation Period, 37 Weeks Kimberly Ramsay MD: 305 [facility] Re[address], [address] [address], Ph. 05/27/2022 Marginal Insertion of Umbilical Belkis Messina MD: 305 [facility] Cord; Gestation Period, 37 Weeks Betty rodriguez [place], [address] [address], Ph. 05/21/2022 Gestation Period, 36 Weeks; History Kimberly Ramsay MD: [address] [address], Ph. 05/20/2022 Marginal Insertion of Umbilical Miranda gilliland MD: 305 [facility] Cord; Gestation Period, 36 Weeks Betty jennifer [address] [address], Ph. 05/16/2022 Routine Care; Gestation Kimberly corral MD: [address] Period, 35 Weeks [address], [address] [address], Ph. 05/15/2022 Gestation Period, 35 Weeks; Pruritus Amy alhaji Monzon ALEX: [address]; Marginal Insertion of [address], [address], Umb[place]ical Cord; [place] [address], Ph. Premature Rupture of Membranes; History of Herpes Zoster; History of Graves' Disease; Ultrasound Scan Abnormal 05/15/2022 Pruritus of Skin; Gestation Period, Fanny Messina MD: [address] 35 Weeks [address], [address], [place] [address], Ph. 05/13/2022 Pruritus of Skin Faith Pearson MD: [address], [address], [place] [address], Ph. 05/12/2022 Vaginal Discharge; Gestation Period, Juliana wanda Flowers MD: [address] 35 Weeks; Supervision of High Risk Inés [address], [address], [place] [address], Ph. Section Done; History of Premature Delivery; Marginal Insertion of Umbilical Cord 05/07/2022 Urgent Desire to Urinate; Gestation Kimberly Ramsay MD: [address] Period, 34 Weeks [address], [address], [place] [address], Ph. 05/07/2022 Reduced Amniotic Fluid; Gestation Beena Messina MD: [address] Period, 34 Weeks [address], [address], [place] [address], Ph. History of Present Illness None recorded. Review of Systems None recorded. Physical Exam None recorded.
--- OUTSIDE RECORDS SUMMARY | 2022-06-23 17:56 | XMS_ITS | Encounter Summary ---
:1990 Author Reason for Visit *POST Assessment and Plan Assessment Note I spent a total of 40 minutes providing care for this patient including: preparing to see the patient, obtaining a medical history, completing a medically appropriate physical exam, completing documentation of visit information and plans in the EMR, counseling the patient and/or caregiver regarding her diagnosis, treatment options and follow up plans 1. Postoperative pain Discussed post op course at date and lavinia mulligan reassured. Discussed that pain is normal and expected after surgery and she does not need to be anxious about it. Discussed plan for pain meds. Continue tyl enol and ibuprofen and alternate these a s best as able. Discussed oxycodone should not be used as a scheduled medication. Discussed taking 1 tab as needed for severe pain only. Discussed goal to decreas e this over the next 2-3 days and goal t o be off completely by the end of the week. Discussed that she should expect some pain and should treat severe pain with oxycodone. Discussed reasons why continui ng with oxycodone past 1-2 weeks post op is of concern. Patient and agree with plan. Will make appt for Thursday for f/u but can cancel if doing well. Also discussed anxiety - patient does no t feel this is a problem. Feels she is doing very well and has a lot of support. Encouraged her and to call with any concerns. ? oxycodone 5 mg tablet Discussion Note: None recorded.Patient educational handouts: No [...] BMI Blood Pressure 5 ft 6 in 160 lbs 25.8 kg/m2 116/70 mm[Hg] Results Lab Results None recorded. Allergies [...] Information not avai lable Notes: *Surgery Date: 199405/20/2022 US, Obstetric, Biophysical Profile CcBry[place] _ras_dariusza [address] [place] [address] [place] 1 [address] [place] [phone] (Work Place) 05/20/2022 US, Obstetric, Follow-up Er120_hujnksezs _dariusza [address] [place] 1 00 [place] [phone] (Work Place) 05/27/2022 US, Obstetric, Biophysical Profile Cc[facility] _gigile_dariusza [address] [place] 1 00 [place] [phone] (Work Place) 06/03/2022 US, Obstetric, Biophysical Profile CcBry[facility] _carldale_dariusza [address] [place] 1 [address] [place] [phone] (Work Place) Vaccine List Vaccine Type DTaP 03/01/1991 04/26/1991 07/07/1991 08/27/199203/04/1996 Hep A, ped/adol, 2 dose 09/22/2008 11/09/2009 [...] Unknown. Past Encounters Encounter Date Diagnosis Provider 06/16/2022 Postoperative Pain Kimberly Ramsay MD: 30 5 [facility] Rebel Crew[address] [address], Ph. 06/03/2022 Gestation Period, 38 Weeks Kimberly Ramsay MD: 305 [facility] Rebel [address] [address], Ph. 06/03/2022 Marginal Insertion of Umbilical Cord; Am estuardo Jessica MD: 305 [facility] Gestation Period, 38 Weeks Rebel [address] [address], Ph. 05/28/2022 Tanmay Mariam Contractions Kimberly Ramsay MD: 305 [facility] Rebel [address] [address], Ph. 05/27/2022 Gestation Period, 37 Weeks Kimberly Ramsay MD: 305 [facility] Rebel Crews [address] [address], Ph. 05/27/2022 Marginal Insertion of Umbilical Cord; An fifi Messina MD: [address] Gestation Period, 37 Weeks Rebel beck, [address] [address], Ph. 05/21/2022 Gestation Period, 36 Weeks; History Kmiberly Ramsay MD: [address] of Section [place], [facility] [address], [place] [address], Ph. 05/20/2022 Marginal Insertion of Umbilical Cord; Am estuardo Jessica MD: [address] Gestation Period, 36 Weeks [place] be[place], [facility] [address], [place] [address], Ph. 05/16/2022 Routine Care; Gestation Kimberly corral MD: [address] Period, 35 Weeks [place], [address] [address], Ph. History of Present Illness Note: <div>Patient delivered via scheduled repeat under general anesthesia (patient preference) on 06/10/22. She had a lot of issues with pain and anxiety around this in the hospital. Pain was managed with oxycodone 10 mg every 3 hours. She was discharged 06/13 with oxycodone disp #20. She has 2 pills left.</div><div>
</div><div>She reports taking tylenol 1000 mg every 6 hours and ibuprofen 800 mg every 6 hours. She is trying to alternate these but got offon the schedule a little. Since Thursday, she has been taking the oxycodone 1 tab q 3 hours. She states pain is well controlled on this regimen although she does report occasional sharp pains to right of unbilicus and near incision on right.</div><div>
</div><div>She reports normal PP bleeding. She states baby is doing well. She is pumping and bottling breast milk. She is having some supply issues and pain with latch when she does try to out baby to breast. She is seeing today. Baby was found to have a possible issue with jaw in hospital - they saw ENT andthis is improving. Destiney denies issues with PP depression. She states she is anxious about medical/health issues but denies any concerns about anxiety. No N/V, fevers, chills.</div> Review of Systems ? 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 Reported By: Patient Constitutional: Constitutional: no significa nt weight loss Skin: Skin: no abnormal moles, no rashes Respiratory: Respiratory: no dyspnea / sh ortness of breath, no cough, no wheezing Cardiovascular: Cardiovascular: no chest magdi n, no palpitations Gastrointestinal: Gastrointestinal: no nausea, no vomiting, no diarrhea, no rectal bleeding, constipation; no h emorrhoids Genitourinary: Genitourinary: no trouble ur inating, no incontinence; no frequency, no urgency, no dysuria Neurological: Neurologic: no headaches, no LOC, no numbness; no tingling Psychological: Psych: no depression; no anx iety Notes: Denies breast lumps, nipple discharge, breast skin changes, and redness of breasts.Denies Ex cessive thirst, excessive hair growth, easy bleeding, lymph node en largement or tenderness Physical Exam ? Post- & C/S Exam ( [facility]) Reported By: Patient Constitutional: General Appearance: healthy- appearing, well-nourished, well-developed Abdomen: Inspection/Palpation/Auscult ation: soft, non-distended, no tenderness. Inspection of In cision Site(s) no erythema, no drainage, no separation, clean, dry, w ell-healed Psychiatric: Orientation: to person, to p lace, to time. Mood and Affect: active and alert, normal mood, norm al affect
--- OUTSIDE RECORDS SUMMARY | 2022-06-23 17:56 | XMS_ITS | Encounter Summary ---
:1990 Author Reason for Visit None recorded. Assessment and Plan 1. Marginal insertion of umbilical cord ? US, obstetric, biophysical profile 2. Gestation period, 37 weeks Discussion Note: None recorded.Patient educational handouts: No information available. Plan of Care Reminders Provider Appointments None recorded. ? ? Lab None recorded. ? ? Referral None recorded. ? ? Procedures None recorded. ? ? Surgeries None recorded. ? ? Imaging US, Obstetric, Biophysical 05/27/2022 Cc0 04_[place] Profile Medications Name Start Date [...] Notes: *Surgery Date: 199404/29/2022 US, Obstetric, Follow-up [id number]_hzlneecgc _[place] [address] [place] [address] [place] [phone] (Work Place) 05/07/2022 US, Obstetric, Biophysical Profile Cc[facility] falconedina [address] [place] [address] [place] [phone] (Work Place) 05/15/2022 US, Obstetric, Biophysical Profile Cc[facility] _aceedina [address] [place] [address] [place] [phone] (Work Place) 05/15/2022 Non-stress Test [id number]_mgrddzypi_qtbc [place] 305 [facility] [address] [place], [place] [phone] (Work Place) 05/20/2022 US, Obstetric, Biophysical Profile Cc[facility] sanchzea [address] [place] [address] [place] [phone] (Work Place) 05/20/2022 US, Obstetric, Follow-up Ic477_jstoqepjbhilario luquea [address] [place] [address] [place] [phone] (Work Place) 05/27/2022 US, Obstetric, Biophysical Profile Cc[facility] sancheza [address] [place] [address] [place] [phone] (Work Place) Vaccine List Vaccine Type DTaP 03/01/1991 04/26/1991 07/07/1991 08/27/1992 03/04/1996 Hep A, ped/adol, 2 dose 09/22/2008 11/09/2009 Hep B, adolescent or pediatric 10/06/2002 11/07/2002 04/28/2003 Hib (PRP-T) 03/01/1991 04/26/1991 07/07/1991 04/06/1992 IPV 03/01/1991 04/26/1991 08/27/1992 03/04/1996 meningococcal MCV4P 09/22/2008 MMR 04/06/1992 05/28/2001 Td (adult) preservative free 01/03/2003 Tdap 09/22/2008 Social History Tobacco Smoking Status Never Smoker Spouse/Partners Name Benjie Do you use any illicit or recreational drugs? N What is your relationship status? What is your level of alcohol consumption? None How many times per week do you consume alcohol? 1-2 times pe r week What is your level of caffeine consumption? 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 Past Encounters Encounter Date Diagnosis Provider 05/27/2022 Gestation Period, 37 Weeks Kimberly Ramsay MD: [address], [address] [address], Ph. 05/27/2022 Marginal Insertion of Umbilical Belkis Messina MD: [address]; Gestation Period, 37 Weeks Betty Crews, [address], [place] [address], Ph. 05/21/2022 Gestation Period, 36 Weeks; History Kimberly Ramsay MD: [address] Rebel Crews, [address], [place] [address], Ph. 05/20/2022 Marginal Insertion of Umbilical Miranda gilliland MD: [address]; Gestation Period, 36 Weeks Betty Crews, [address], [place] [address], Ph. 05/16/2022 Routine Care; Gestation Kimberly corral MD: [address] Period, 35 Weeks [place] Crews, [address], [place] [address], Ph. 05/15/2022 Gestation Period, 35 Weeks; Pruritus Amy Monzon ALEX: [address] of Skin; Marginal Insertion of [place], [address], Umbilical Cord; [place] [address], Ph. Premature Rupture of Membranes; History of Herpes Zoster; History of Graves' Disease; Ultrasound Scan Abnormal 05/15/2022 Pruritus of Skin; Gestation Period, Fanny Messina MD: [address] 35 Weeks Rebel Crews, [address] [address], Ph. 05/13/2022 Pruritus of Skin Faith Pearson MD: [address] [place] [address], Ph. 05/12/2022 Vaginal Discharge; Gestation Period, Juliana Flowers MD: [address] 35 Weeks; Supervision of High Risk Inés Crews, [place] [address], [place] [address], Ph. Section Done; History of Premature Delivery; Marginal Insertion of Umbilical Cord 05/07/2022 Urgent Desire to Urinate; Gestation Kimberly Ramsay MD: [address] Period, 34 Weeks Rebel [place], [address] [address], Ph. 05/07/2022 Reduced Amniotic Fluid; Gestation Beena Messina MD: [address] Period, 34 Weeks [place], [address] [address], Ph. 04/29/2022 Tanmay Becerra Contractions; Marginal Marga Ramsay MD: [address] Insertion of Umbilical Cord [place] [facility], [address] [address], Ph. 04/29/2022 Marginal Insertion of Umbilical Belkis Messina MD: [address]; Gestation Period, [address] [address], Ph. [phone] History of Present Illness None recorded. Review of Systems None recorded. Physical Exam None recorded.
--- OUTSIDE RECORDS SUMMARY | 2022-06-23 17:56 | XMS_ITS | Encounter Summary ---
:1990 Author Reason for Visit *OB ROUTINE; *PREOP-CSECTION Assessment and Plan 1. Gestation period, 36 weeks ? hemoglobin (Hb), fingerstick, blood 2. History of section Discussed and preop done. Dis cussed ERAS - teaching and handout reviewed today. Discussed risks and benefits of including risks of bleeding, possible need for blood transfusion, inf ection, damage to adjacent organs includ ing bowel, bladder and ureters. Questions answered. Discussion Note: None recorded.Patient educational handouts: No information available. Plan of Care Reminders Provider Appointments None recorded. ? ? Lab Hemoglobin (Hb), 05/21/2022 [id number]_mqvxkqb le_radhaclarence Fingerstick, Blood e Referral None recorded. ? ? Procedures None [...] tablet ? Medications Administered None recorded. Vitals Blood Pressure 118/68 mm[Hg] Results Lab Results Date Name Specimen Result Interpretation Description Value Range Status Address ? 05/21/2022 Hemoglobin ? Fingerstick 11.6 12.0-15.0 ? [id number]_ncnxiupqg_jhmpnvoeas: (Hb), Hemoglobin g/dL g/dL [address] [facility] [place] [address], [address], [place] Blood Allergies Code Code System Name Reaction Severity [...] Notes: *Surgery Date: 199404/29/2022 US, Obstetric, Follow-up [id number]_gctwnumss _dariusza [address] [place] [address] [place] [phone] (Work Place) 05/07/2022 US, Obstetric, Biophysical Profile Cc[facility] _ras_dariusza [address] [place] [address] [place] [phone] (218 (Work Place) 05/15/2022 US, Obstetric, Biophysical Profile Cc004 _ras_dariusza [address] [place] [address] [place] [phone] (Work Place) 05/15/2022 Non-stress Test Dh359_sivowmznz_hilz [facility] [address] [facility] [address] [place] [address] (Work Place) 05/20/2022 US, Obstetric, Biophysical Profile CcB[place] _ras_edina [address] [place] [address] [place] [phone] (Work Place) 05/20/2022 US, Obstetric, Follow-up Zv126_aafcpzeus _[place]ina [address] [place] [address] [place] [phone] (Work Place) Vaccine List Vaccine Type DTaP [...] Unknown. Past Encounters Encounter Date Diagnosis Provider 05/21/2022 Gestation Period, 36 Weeks; History Kimberly Ramsay MD: [address] Rebel Crews, [address], [place] [address], Ph. 05/20/2022 Marginal Insertion of Umbilical Miranda gilliland MD: [address]; Gestation Period, 36 Weeks Betty Crews, [address], [place] [address], Ph. 05/16/2022 Routine Care; Gestation Kimberly corral MD: [address] Period, 35 Weeks Rebel Crews, [address], [place] [address], Ph. 05/15/2022 Gestation Period, 35 Weeks; Pruritus KALYANI Potts: [address]; Marginal Insertion of Rebel Crews, [address], Umbilical Cord; [place] [address], Ph. Premature Rupture of Membranes; History of Herpes Zoster; History of Graves' Disease; Ultrasound Scan Abnormal 05/15/2022 Pruritus of Skin; Gestation Period, Fanny Messina MD: [address] 35 Weeks Rebel Crew[address], [address] [place] [address], Ph. 05/13/2022 Pruritus of Skin Faith Pearson MD: [address] Rebel [address], [address] [address], Ph. 05/12/2022 Vaginal Discharge; Gestation Period, Juliana wanda Flowers MD: [address] 35 Weeks; Supervision of High Risk Inés Crews, [place] [address], [place] [address], Ph. Section Done; History of Premature Delivery; Marginal Insertion of Umbilical Cord 05/07/2022 Urgent Desire to Urinate; Gestation Kimberly Ramsay MD: [address] Period, 34 Weeks Rebel Crews, [address] [address], Ph. 05/07/2022 Reduced Amniotic Fluid; Gestation Beena Messina MD: [address] Period, 34 Weeks Rebel Crews, [address] [address], Ph. 04/29/2022 Marlinton Becerra Contractions; Marginal Marga Ramsay MD: [address] Insertion of Umbilical Cord Rebel bearden, [address] [address], Ph. 04/29/2022 Marginal Insertion of Umbilical Belkis Messina MD: [address]; Gestation Period, 33 Weeks [facility] [address], [place] [address], Ph. [phone] 04/25/2022 Gestation Period, 32 Weeks; History [place] tram Emery MD: [address]; History of Rebel Crews, [address], [place] [address], Ph. 04/22/2022 Irregular Uterine Contractions; Kimberly sheppard MD: [address] Gestation Period, 32 Weeks Rebel beck, [address], [place] [address], Ph. History of Present Illness ? Pre-Op (Premier) Reported By: Patient HPI: Procedure: repeat . Procedure Date: 06/10/22. Surgeon: Lilly. Procedure Loc ation: [facility]. Reason for Procedure: h/o previous . Past Med ical History significant for: asthma: no, CAD: no, renal insufficiency : no, diabetes: no, congestive heart failure: no, recent AR: no, valvular heart disease: no, sleep apnea: no. Is the patient currently brook ing: antihistamines: no, aspirin or ibuprofen products: no, bloo d thinners: no, Metformin: no, seizure medication: no. Family Histo ry of: malignant hyperthermia: no Notes: <div>Patient desires general anesthesia and has been counseled regarding this. She has had an anesthe rubens consult.</div> Review of Systems None recorded. Physical Exam ? Annual Exam ([facility]) Reported By: Patient Constitutional: *General Appearance: healthy -appearing, well-nourished, well-developed Head: Head: normocephalic Neck: *Thyroid: no enlargement, no nodules, non-tender Lymph Nodes: *Palpation: normal Cardiovascular: *Auscultation: RRR, no murmu r. *Peripheral Vascular: no varicosities, no edema Lungs: *Respiratory Effort: no acce ssory muscle usage, no intercostal retractions. *Auscultation: clear to auscultation, no wheezing, no rales/crackles, no rhonch i. Inspection: normal, normal respiratory rate Abdomen: *Inspection/Palpation/Auscul tation: non-distended, no tenderness, no rebound, no g uarding, soft, no hepatomegaly, no splenomegaly. *Hernia: none palpated Extremities: Legs: normal. Arms: normal. Pulses: normal Skin: *Appearance: no rashes, no l esions Neurological System: Impressions: motor: no defic its, sensory: no deficits Psychiatric: *Orientation: to person, to place, to time. *Mood and Affect: active and alert, normal moo d, normal affect
--- OUTSIDE RECORDS SUMMARY | 2022-06-23 17:56 | XMS_ITS | Encounter Summary ---
:1990 Author Reason for Visit None recorded. Assessment and Plan 1. Marginal insertion of umbilical cord ? US, obstetric, biophysical profile ? US, obstetric, follow-up 2. Gestation period, 36 weeks Discussion Note: None recorded.Patient educational handouts: No information available. Plan of Care Reminders Provider Appointments None recorded. ? ? Lab None recorded. ? ? Referral None recorded. ? ? Procedures None recorded. ? ? Surgeries None recorded. ? ? Imaging US, Obstetric, Biophysical 05/20/2022 Cc0 04_[place] Profile ? US, Obstetric, Follow-up 05/20/2022 Cc004 _[place] Medications Name Start Date ? ? alcohol [...] with residual symptoms ? Tonsillectomy Information not oanh clemente Notes: *Surgery Date: 199404/29/2022 US, Obstetric, Follow-up Mo174_apwsgozer _[place] [address] [place] [address] [place] [phone] (Work Place) 05/07/2022 US, Obstetric, Biophysical Profile Cc004 _[place] [address] [place] [address] [place] [phone] (Work Place) 05/15/2022 US, Obstetric, Biophysical Profile Cc004 _[place] [address] [place] [address] [place] [phone] (Work Place) 05/15/2022 Non-stress Test Qd616_kepxvlwet_ilcr [place] 305 [facility] [address] [place] [address] (Work Place) 05/20/2022 US, Obstetric, Biophysical Profile Cc004 _gigile_[place]ina [address] [place] [address] [place] [phone] (114 (Work Place) 05/20/2022 US, Obstetric, Follow-up Zd105_xhheitbud _[place] [address] [place] [address] [place] [phone] (Work Place) Vaccine List Vaccine Type DTaP [...] Unknown. Past Encounters Encounter Date Diagnosis Provider 05/20/2022 Marginal Insertion of Umbilical Miranda gilliland MD: [address]; Gestation Period, 36 Weeks Betty Crews, [address], [place] [address], Ph. 05/16/2022 Routine Care; Gestation Kimberly corral MD: [address] Period, 35 Weeks Rebel Crews, [address], [place] [address], Ph. 05/15/2022 Gestation Period, 35 Weeks; Pruritus Amy Monzon ALEX: [address]; Marginal Insertion of Rebel Crews, [address], Umbilical Cord; [place] [address], Ph. Premature Rupture of Membranes; [phone] History of Herpes Zoster; History of Graves' Disease; Ultrasound Scan Abnormal 05/15/2022 Pruritus of Skin; Gestation Period, Fanny Messina MD: [address] 35 Weeks Rebel [address], [address], [place] [address], Ph. 05/13/2022 Pruritus of Skin Faith Pearson MD: [address], [address], [place] [address], Ph. 05/12/2022 Vaginal Discharge; Gestation Period, Juliana Flowers MD: [address] 35 Weeks; Supervision of High Risk Inés Crews, [address], [place] [address], Ph. Section Done; History of Premature Delivery; Marginal Insertion of Umbilical Cord 05/07/2022 Urgent Desire to Urinate; Gestation Kimberly Ramsay MD: [address] Period, 34 Weeks Rebel Crews, [facility] [address], [place] [address], Ph. 05/07/2022 Reduced Amniotic Fluid; Gestation Beena Messina MD: [address] Period, 34 Weeks Rebel Crews, [facility] [address], [place] [address], Ph. 04/29/2022 Squires Becerra Contractions; Marginal Marga Ramsay MD: [address] Insertion of Umbilical Cord Rebel bearden, [address] [address], Ph. 04/29/2022 Marginal Insertion of Umbilical Belkis Messina MD: [address]; Gestation Period, 33 Weeks [facility] [address], [place] [address], Ph. [phone] 04/25/2022 Gestation Period, 32 Weeks; History Lucy tram Emery MD: [address]; History of Rebel Crews, [place] [address], [place] [address], Ph. 04/22/2022 Irregular Uterine Contractions; Kmiberly sheppard MD: [address] Gestation Period, 32 Weeks Rebel beck, [address] [address], Ph. History of Present Illness None recorded. Review of Systems None recorded. Physical Exam None recorded.
--- OUTSIDE RECORDS SUMMARY | 2022-06-23 17:56 | XMS_ITS | Encounter Summary ---
:1990 Author Reason for Visit *UTI PP urinary symptoms Assessment and Plan Assessment Note Total time spent in reviewing patient's history and outside records, discussion of patient's concerns, examination, reviewi ng test results, ordering additional tests, counseling with shared decision making, sending prescriptions and documentation was 25 minutes. 1. Dysuria UA with moderate leukocytes and large b lood (still with mild PP bleedign) Will send UCx Rx sent for Macrobid, OK to wait until e ither culture results return or urinary symptoms worsen Push PO fluids, cranberry tablets, azo p rn ? urinalysis, dipstick ? culture, urine - patient with PCN all ergy ? Macrobid 100 mg capsule Discussion Note: None recorded.Patient educational handouts: No information available. Plan of Care Reminders Provider Appointments None recorded. ? ? Lab Urinalysis, Dipstick 06/19/2022 [id number] [facility] ? Culture, Urine 06/19/2022 [facility] Referral None recorded. ? ? Procedures None [...] BMI Blood Pressure 5 ft 6 in 157 lbs 25.3 kg/m2 100/72 mm[Hg] Results Lab Results Date Name Specimen Result Interpretation Description Value Range Status Address ? 06/19/2022 Culture, Urine ABNORMAL Urine Culture see ? F inal [facility] Urine clean results [place]: catch below [id number], [place] s 06/19/2022 Urinalysis ? Result Source Clean ? ? [id number] , Dipstick Catch ale_bu rnsvil le: [address] [facility] [address] [facility], [place] ? ? ? Result negative ? ? Cc004_s outhd Glucose ale_burns damion (mg/DL) le: [address] [facility] [address] [facility], [place] ? ? ? Result negative ? ? Cc004_s outhd Bilirubin/Nega al e_burnsvil tive le: [address] [place] [address], [place] ? ? ? Result negative ? ? Cc004_s outhd Ketones/Negati al e_burnsvil ve le: [address] [place] [address], [place] ? ? ? Result 1.010 ? ? Gz277_mhz thd Specific ale_burn svil [place]/1.000 le: [address] [facility] [address] [facility], [place] ? ? ? Result large ? ? Je618_meu thd Blood/Negative al e_burnsvil le: [address] [facility] [address] [facility], [place] ? ? ? Result pH/5.0 7.0 ? ? Cc 004_southd - 9.0 ale_burnsv il le: [address] [place] [address], [place] ? ? ? Result negative ? ? Cc004_s outhd Protein/Negati al e_burnsvil ve le: [address] [facility] [address] [facility], [place] ? ? ? Result 0.2 ? ? Zl204_xpu thd Urobilinogen ale_ burnsvil (EU/dl)/ 0.2 - le : [address] [facility] [address] [facility] [address] [facility], [place] ? ? ? Result negative ? ? Cc004_s outhd Nitrite ale_burns damion le: [address] [facility] [address] [facility], [place] ? ? ? Result moderate ? ? Cc004_s outhd Leukocytes/Neg al e_burnsvil ative le: [address] [facility] [address], [place] ? ? ? Result Color/ pale ? ? Cc 004_southd Yellow to yellow ale_bur nsvil Evelyne le: [address] [facility] [address], [place] ? ? ? Result slightly ? ? Cc004_s outhd Appearance cloudy ale_bu rnsvil le: [address] [facility] [address] [facility], [place] Allergies Code Code System Name Reaction Severity [...] *Surgery Date: 199405/20/2022 US, Obstetric, Biophysical Profile Cc004 _gigile_dariusza [address] [address] [place] [phone] (Work Place) 05/20/2022 US, Obstetric, Follow-up [id number] _dariusza [address] [facility] [address] [place] [phone] (Work Place) 05/27/2022 US, Obstetric, Biophysical Profile Cc004 _gigile_edina [address] [place] [address] [place] [phone] (Work Place) 06/03/2022 US, Obstetric, Biophysical Profile Cc004 _carldale_edina [address] [address] [place] [phone] (Work Place) Vaccine List Vaccine Type DTaP [...] Unknown. Past Encounters Encounter Date Diagnosis Provider 06/19/2022 Dysuria Tamie Caba MD: 3 05 [facility] [address] [address], Ph. 06/16/2022 Postoperative Pain Kimberly Ramsay MD: 30 5 [facility] [address] [address], Ph. 06/03/2022 Gestation Period, 38 Weeks Kimberly Ramsay MD: 305 [facility] [address] [address], Ph. 06/03/2022 Marginal Insertion of Umbilical Cord; Jl Jessica MD: 305 [facility] Gestation Period, 38 Weeks [address] [address], Ph. 05/28/2022 Tanmay Becerra Contractions Kimberly Ramsay MD: 305 [facility] [address] [address], Ph. 05/27/2022 Gestation Period, 37 Weeks Kimberly Ramsay MD: [address] [place] [address] [address], [address], [place] [address], Ph. 05/27/2022 Marginal Insertion of Umbilical Cord; An fifi Messina MD: 305 [facility] Gestation Period, 37 Weeks [address], [address] [address], Ph. 05/21/2022 Gestation Period, 36 Weeks; History Kimberly Ramsay MD: 305 [facility] of Section [address], [facility] [address], [place] [address], Ph. 05/20/2022 Marginal Insertion of Umbilical Cord; Jl Jessica MD: 305 [facility] Gestation Period, 36 Weeks [address], [address] [address], Ph. History of Present Illness Note: <div>S/p repeat C/S under general (choice) on 06/10. Catheter came out POD#1. Destiney states this morning she developed moderate burning with urination and associated pain that radiates up to herbelly button. Denies fevers/chills or back pain. </div><div>
</div><div>Pain is much better overall over the past few days, now only taking oxy prn at bedtime. Anxiety is stable per her report. Baby with multiple followups d/t facial/jaw issues. </div> Review of Systems ? PACKAGER HEAD ROS Reported By: Patient Constitutional: Constitutional: no significa nt weight loss Skin: Skin: no abnormal moles, no rashes Respiratory: Respiratory: no dyspnea / sh ortness of breath, no cough, no wheezing Cardiovascular: Cardiovascular: no chest magdi n, no palpitations Gastrointestinal: Gastrointestinal: no nausea, no vomiting, no diarrhea, no constipation, no rectal blee ding; no hemorrhoids Genitourinary: Genitourinary: no incontinen ce, dysuria, urinary frequency, urinary urgency Neurological: Neurologic: no headaches, no LOC, no numbness; no tingling Psychological: Psych: no depression; no anx iety Notes: Denies breast lumps, nipple discharge, breast skin changes, and redness of breasts.Denies Ex cessive thirst, excessive hair growth, easy bleeding, lymph node en largement or tenderness Physical Exam ? Post- & C/S Exam ( [facility]) Reported By: Patient Constitutional: General Appearance: healthy- appearing, well-nourished, well-developed Abdomen: Inspection/Palpation/Auscult ation: soft, non-distended, no tenderness. Inspection of In cision Site(s) no erythema, no drainage, no separation, clean, dry, w ell-healed Psychiatric: Orientation: to person, to p lace, to time. Mood and Affect: active and alert, normal mood, norm al affect Notes: <div>steristrips removed</di v>
--- OUTSIDE RECORDS SUMMARY | 2022-06-23 17:56 | XMS_ITS | Encounter Summary ---
:1990 Author Reason for Visit *OB PROBLEM Assessment and Plan 1. Gestation period, 35 weeks 2. Pruritus of skin 3. Marginal insertion of umbilical cord 4. History of premature rupture of membranes 5. History of herpes zoster 6. History of Graves' disease 7. ultrasound scan abnormal ? non-stress test Discussion Note: None recorded.Patient educational handouts: No information available. Plan of Care Reminders Provider Appointments None recorded. ? ? Lab None recorded. ? ? Referral None recorded. ? ? Procedures None recorded. ? ? Surgeries None recorded. ? ? Imaging Non-stress Test 05/15/2022 [id number] e_kilgore Medications Name Start Date ? ? alcohol [...] Medications Administered None recorded. Vitals Height Weight Blood Pressure 5 ft 6 in 167 lbs 122/74 mm[Hg] Results Lab Results None recorded. Allergies [...] Obstetric, Follow-up Chace diana [address] [place] [address] [place] [phone] (Work Place) 05/07/2022 US, Obstetric, Biophysical Profile CcBryant sancheza [address] [place] [address] [place] [phone] (Work Place) 05/15/2022 US, Obstetric, Biophysical Profile CcBryant sancheza [address] [place] [address] [place] [phone] (Work Place) 05/15/2022 Non-stress Test [id number]_kpjf [facility] [address] [facility] [address] [place] [address] (Work Place) Vaccine List [...] Umbilical Cord; [place] [address], Ph. Premature Rupture of Membranes; History of Herpes Zoster; History of Graves' Disease; Ultrasound Scan Abnormal 05/15/2022 Pruritus of Skin; Gestation Period, Fanny Messina MD: [address] 35 Weeks [address], [address], [place] [address], Ph. 05/13/2022 Pruritus of Skin Faith Pearson MD: [address], [address], [place] [address], Ph. 05/12/2022 Vaginal Discharge; Gestation Period, Juliana Flowers MD: [address] 35 Weeks; Supervision of High Risk [address], [address], [place] [address], Ph. Section Done; History of Premature Delivery; Marginal Insertion of Umbilical Cord 05/07/2022 Urgent Desire to Urinate; Gestation Kimberly Ramsay MD: [address] Period, 34 Weeks [address], [address] [address], Ph. 05/07/2022 Reduced Amniotic Fluid; Gestation Beena Messina MD: [address] Period, 34 Weeks [address], [address], [place] [address], Ph. 04/29/2022 Clarence Becerra Contractions; Marginal Marga Ramsay MD: [address] Insertion of Umbilical Cord [address], [address], [place] [address], Ph. 04/29/2022 Marginal Insertion of Umbilical Belkis Messina MD: [address] Cord; Gestation Period, 33 Weeks [facility] [address], [place] [address], Ph. [phone] 04/25/2022 Gestation Period, 32 Weeks; History Lucy say Florencia Emery MD: [address] of Section; History of [address], [address], [place] [address], Ph. 04/22/2022 Irregular Uterine Contractions; Kimberly sheppard MD: [address] Gestation Period, 32 Weeks [address], [address], [place] [address], Ph. 04/16/2022 Pruritus of Skin; Gestation Period, KALYANI Peña: [address] 31 Weeks; History of [place] [address], [address], Section; History of Graves' Disease; [place] [address], Ph. Marginal Insertion of Umbilical [phone] Cord; History of Premature Rupture of Membranes; History of Thromboembolism; Anemia of ; Restless Legs History of Present Illness None recorded. Review of Systems None recorded. Physical Exam None recorded.
--- OUTSIDE RECORDS SUMMARY | 2022-06-23 17:56 | XMS_ITS | Encounter Summary ---
:1990 Author Reason for Visit *OB PROBLEM Assessment and Plan Assessment Note I spent a total of 20 minutes providing care for this patient including: preparing to see the patient, obtaining a medical history, completing documentation of visit information and plans in the EMR, counse ling the patient and/or caregiver regarding her diagnosis, treatment options and fol low up plans 1. [place] Becerra contractions Discussed frequent ctx. Expressed under standing of how frustrating it is to contract frequently. Discussed h/o previous c-sec tion and plan for at 39 weeks. Discussed why c-sections are scheduled a t 39 weeks and concerns about elective delivery prior to 39 weeks. Discussed wh at would make proceeding with prior to 39 weeks medically necessary. Discuss ed labor (cervical change or persistent painful ctx that are worsening instead o f spacing out), ROM, concerns about status. Discussed none of these have bee n seen to this point and my recommendation is to continue until scheduled c- section or one of these things occurs. Discussed concern for baby possibly need ing NICU care prior to 39 weeks. Lond discussion and many questions answered. Attempted to calm patient's anxiety. Plan f/u next week as scheduled. Patient to call with painful regular ctx q 5-7 min which continue for 1-2 hours, bleeding, LOF or decreased FM. She agrees. Discussion Note: None recorded.Patient educational handouts: No [...] Notes: *Surgery Date: 199404/29/2022 US, Obstetric, Follow-up [id number] _edina [address] [place] [address] 1 00 [place] [phone] (Work Place) 05/07/2022 US, Obstetric, Biophysical Profile Cc004 _gigile_edina [address] [place] [address] [place] [address] [place] [phone] (Work Place) 05/15/2022 US, Obstetric, Biophysical Profile Cc004 _carldale_edina [address] [place] [address] [place] [address] [place] [phone] (Work Place) 05/15/2022 Non-stress Test [id number][facility] 305 [facility] [address] [place] [address] (Work Place) 05/20/2022 US, Obstetric, Biophysical Profile Cc004 _carldale_edina [address] [place] [address] [place] [phone] (Work Place) 05/20/2022 US, Obstetric, Follow-up [id number] _edina [address] [place] [address] [place] [phone] (Work Place) 05/27/2022 US, Obstetric, Biophysical Profile CcBryant webster [address] [place] 1 00 [place] [phone] (Work Place) Vaccine List Vaccine Type DTaP [...] Unknown. Past Encounters Encounter Date Diagnosis Provider 05/28/2022 Tanmay Becerra Contractions Kimberly Ramsay MD: [address], [address] [place] [address], Ph. 05/27/2022 Gestation Period, 37 Weeks Kimberly Ramsay MD: [address], [address] [address], Ph. 05/27/2022 Marginal Insertion of Umbilical Belkis Messina MD: 305 [facility] Cord; Gestation Period, 37 Weeks Betty Crews, [address] [place] [address], Ph. 05/21/2022 Gestation Period, 36 Weeks; History Kimberly Ramsay MD: [address], [address] [address], Ph. 05/20/2022 Marginal Insertion of Umbilical Miranda gilliland MD: [address]; Gestation Period, 36 Weeks [address], [address] [address], Ph. 05/16/2022 Routine Care; Gestation Kimberly corral MD: [address] Period, 35 Weeks [address], [address] [address], Ph. 05/15/2022 Gestation Period, 35 Weeks; Pruritus KALYANI Potts: [address] of Skin; Marginal Insertion of [address], [place] [address], Umbilical Cord; [place] [address], Ph. Premature Rupture of Membranes; History of Herpes Zoster; History of Graves' Disease; Ultrasound Scan Abnormal 05/15/2022 Pruritus of Skin; Gestation Period, Fanny Messina MD: [address] 35 Weeks [address], [address] [place] [address], Ph. 05/13/2022 Pruritus of Skin Faith Pearson MD: [address], [address] [place] [address], Ph. 05/12/2022 Vaginal Discharge; Gestation Period, Juliana Flowers MD: [address] 35 Weeks; Supervision of High Risk [address], [address], [place] [address], Ph. Section Done; History of Premature Delivery; Marginal Insertion of Umbilical Cord 05/07/2022 Urgent Desire to Urinate; Gestation Kimberly Ramsay MD: [address] Period, 34 Weeks [address], [address], [place] [address], Ph. 05/07/2022 Reduced Amniotic Fluid; Gestation Beena Messina MD: [address] Period, 34 Weeks [address], [address], [place] [address], Ph. 04/29/2022 Tanmay Becerra Contractions; Marginal Marga Ramsay MD: [address] Insertion of Umbilical Cord [address], [address], [place] [address], Ph. 04/29/2022 Marginal Insertion of Umbilical Belkis Messina MD: [address]; Gestation Period, 33 Weeks [facility] [address] [address], Ph. History of Present Illness Note: <div>Patient presents via telehealth today to discuss the timing of her .</div><div>
</div><div>She reports being on L&D last night with contractions. She states she presented to L&D because ctx were q6-10 min and painful. Cervix was checked and was FT/70/-3, posterior, thick. She was given IV fluids and observed. By morning, ctx had spaced out and she was sent home. She also had a negative ROM plus while there. A wet prep showed BV and she was started on metrogel although she has no symptoms of BV. </div><div>
&lt ;/div><div>Today, she continues to have occ ctx, nothing frequent or regular at this time. She denies VB, LOF. + FM.</div> Review of Systems None recorded. Physical Exam None recorded.
--- OUTSIDE RECORDS SUMMARY | 2022-06-23 17:56 | XMS_ITS ---
:1990 Author Care Team Providers Name Role Phone Karie Aguilar Primary Care Provider Unavailable Allergies Code Code System Name Reaction Severity Status Onset Cefzil ? ? Active ? Ciprofloxacin Hcl ? ? Active ? Penicillins ? ? Active ? Medications Name Status Start Date Stop Date ? ? acyclovir 800 mg tablet Completed ? 03/07/20 albuterol Completed ? 06/05/2021 alcohol swabs Active ? Not available atenolol 50 mg tablet Completed ? 06/05/2021 TAKE 1 TABLET BY MOUTH DAILY azithromycin 250 mg tablet Completed ? 06/05 betamethasone dipropionate 0.05 % topical ointment Completed ? 01/25/2021 chlorhexidine gluconate 0.12 % mouthwash Active ? Not available clindamycin 2 % vaginal cream Completed ? I 1 APL VAGINALLY HS FOR 7 DAYS clindamycin HCl 150 mg capsule Completed ? 0 10/30/2021 clotrimazole 10 mg pedro Active ? Not av ailable dexamethasone 4 mg tablet Active ? Not av ailable diazepam 2 mg tablet Completed ? 01/25/2021 diazepam 5 mg tablet Completed ? 01/25/2021 PLACE 1 T VAGINALLY 2 H PRIOR TO INTERC OURSE OR UP TO 3 TIMES D FOR PAIN RELIEF DURING DILATING enoxaparin 40 mg/0.4 mL subcutaneous syringe Active ? Not available FeroSul 325 mg (65 mg iron) tablet Completed ? 10/08/2021 TAKE 1 TABLET BY MOUTH TWICE DAILY WITH MEALS ferrous gluconate 324 mg (38 mg iron) tablet Completed ? 01/25/2021 TAKE 1 TABLET BY MOUTH TWICE DAILY WITH MEALS fluconazole 100 mg tablet Completed ? 2020 fluconazole 200 mg tablet Completed ? 2020 ibuprofen 600 mg tablet Completed ? 01/26/20 levalbuterol HFA 45 mcg/actuation aerosol inhaler Completed ? 01/25/2021 Lidocaine Viscous 2 % mucosal solution Active ? Not available lorazepam 1 mg tablet Completed ? 06/05/2021 Macrobid 100 mg capsule Active ? Not avai lable Take 1 capsule every 12 hours by oral route for 5 days. metoclopramide 10 mg tablet Completed ? 03/2021 TK 1 T PO Q 6 H PRF NAUSEA OR VOM metronidazole 0.75 % (37.5 mg/5 gram) vaginal gel Completed ? 06/19/2022 INSERT 1 APPLICATORFUL EVERY DAY BY VAGINAL ROUTE FOR 5 DAYS metronidazole 500 mg tablet Completed ? 03/2021 TK 1 T PO BID FOR 7 DAYS mupirocin 2 % topical ointment Completed ? 0 07/31/2021 nystatin 100,000 unit/mL oral suspension Active ? Not available ondansetron 4 mg disintegrating tablet Completed ? 01/25/2021 oxycodone 5 mg tablet Active ? Not availa ble Take by oral route for 4 days. Vitamin Active ? Not available promethazine 25 mg tablet Active ? Not av ailable TAKE 1 TABLET BY MOUTH EVERY 4 TO 6 HOURS triamcinolone acetonide 0.1 % dental paste Active ? Not available triamcinolone acetonide 0.1 % topical cream Completed ? 10/08/2021 valacyclovir 1 gram tablet Active ? Not a vailable Vitamin B-6 25 mg tablet Completed ? 021 TK 1 T PO QID Problems Name Status Onset Date Source ? [...] Information not avai lable Notes: *Surgery Date: 199401/25/2021 [facility] [address] [address] [place] [address] (Work Place) 08/16/2021 US, Pelvis, Transabdominal + [id number]_qcwtp becky_[place] Transvaginal [address] [place] [address] [place] [address] (Work Place) 10/17/2021 US, Obstetric, Transvaginal Fb978_btpgke ale_[place] [address] [place] [address] [place] [address] (Work Place) 10/30/2021 US, Obstetric, Transvaginal Sd168_xeekln ale_[place] [address] [place] [address] [place] [address] (Work Place) 01/01/2022 US, Obstetric, Limited Mg124_knewbders_g tino [address] [place] [address] [place] [address] (Work Place) 01/15/2022 US, Obstetric, Limited Ke764_jjfvyqmvb_b tino [address] [place] [address] [place] [address] (Work Place) 01/29/2022 US, Obstetric, Maternal La381_edsb hdale_[place] Evaluation + Anatomy [address] [place] [address] [place] [address] (Work Place) 02/12/2022 US, Obstetric, Transvaginal Hx876_maogug ale_[place] [address] [place] [address] [place] [address] (Work Place) 03/26/2022 US, Obstetric, Follow-up Gm354_cmebzyfcs _[place] [address] [place] [address] [place] [address] (Work Place) 04/29/2022 US, Obstetric, Follow-up Rs030_vdkpeinaf _[place] [address] [place] [address] [place] [address] (Work Place) 05/07/2022 US, Obstetric, Biophysical Profile Cc004 _southdale_[place] [address] [place] [address] [place] [address] (Work Place) 05/15/2022 US, Obstetric, Biophysical Profile CcBryant webster [address] [place] [address] [place] [phone] (Work Place) 05/15/2022 Non-stress Test Wf649_emdqdcfeh_deimsusu [place] [address] [facility] [address] [place] [address] (Work Place) 05/20/2022 US, Obstetric, Biophysical Profile CcBryant webster [address] [place] [address] [place] [address] (Work Place) 05/20/2022 US, Obstetric, Follow-up Pt605_mtaiqmksrhilario diana [address] [place] [address] [place] [address] (Work Place) 05/27/2022 US, Obstetric, Biophysical Profile Van webster [address] [place] [address] [place] [address] (Work Place) 06/03/2022 US, Obstetric, Biophysical Profile [place] [address] [place] [address] [place] [address] (Work Place) Results Lab Results Date Name Specimen Result Interpretation Description Value Range Status Address ? 06/19/2022 Culture, Urine ABNORMAL Urine see ? [facility] Urine clean Culture results [place] : catch below [address], [place] 06/19/2022 Urinalysis, ? Result Clean ? ? Ro874_qrzbul Dipstick Source Catch ale_burn svil le: [address] [facility] Suite [facility], [place] ? ? ? Result negative ? ? Cc004_s outhd Glucose ale_burns damion (mg/DL) le: [address] [facility] Suite [facility], [place] ? ? ? Result negative ? ? Cc004_s outhd Bilirubin/ ale_bu rnsvil Negative le: [address] [facility] [address], [place] ? ? ? Result negative ? ? Cc004_s outhd Ketones/Ne ale_bu rnsvil gative le: [address] [facility] Suite [facility], [place] ? ? ? Result 1.010 ? ? Uo183_dsv thd Specific ale_burn svil Bledsoe/1. le: [address] [facility] [address] [facility], [place] ? ? ? Result large ? ? Jf120_fxf thd Blood/Nega ale_bu rnsvil tive le: [address] [facility] Suite [facility], [place] ? ? ? Result 7.0 ? ? Bz877_jbq thd pH/5.0 - ale_burn svil 9.0 le: [address] [facility] [address] [facility], [place] ? ? ? Result negative ? ? Cc004_s outhd Protein/Ne ale_bu rnsvil gative le: [address] [facility] [address] [facility], [place] ? ? ? Result 0.2 ? ? Ub531_hdz thd Urobilinog ale_bu rnsvil en le: [address] (EU/dl)/ Jera[place] 0.2 - 1.[address] [facility], [place] ? ? ? Result negative ? ? Cc004_s outhd Nitrite ale_burns damion le: [address] [facility] [address] [facility], [place] ? ? ? Result moderate ? ? Cc004_s outhd Leukocytes ale_bu rnsvil /Negative le: 305 [facility] Suite [facility], [place] ? ? ? Result pale ? ? Fx929_gjh thd Color/ yellow ale_burnsv il Yellow to le: [address] [facility] [address] [place] [address] ? ? ? Result slightly ? ? Cc004_s outhd Appearance cloudy ale_bu rnsvil le: [address] [facility] [address] [place] [address] 05/21/2022 Hemoglobin ? Fingersti 11.6 g/dL 12.0 ? Xr506_tfwvdg (Hb), ck -15. ale_burnsv il Fingerstick, Hemoglobin 0 le: [address] Blood g/dL [facility] [address] [place] [address] 05/16/2022 Streptococcu Vaginal ? Group B negative nega Fi n[facility] s Group B Strep PCR tive [place]: DNA [address], [place] 05/13/2022 Bile Acids, ? Ursodeoxy 0.3 umol/L 0.0- Final [facility] Fractionated cholic 1.0 [place]: + Total, Acid umol [address] Serum /L St [address], [place] ? ? ? Cholic 0.7 umol/L 0.0- Final Hea lth Acid 1.9 [place]: umol [address] /L [address], [place] ? ? ? Chenodeox 1.0 umol/L 0.0- Final [facility] ycholic 3.4 [place]: umol [address] /L [address], [place] ? ? ? Deoxychol 1.1 umol/L 0.0- Final [facility] ic Acid 2.5 [place]: umol [address] /L [address], [place] ? ? ? Bile 3.1 umol/L 0.0- Final [facility] th Acids 7.0 [place]: Total umol [address] /L [address], [place] 05/13/2022 Hepatic Blood Low Protein 6.0 g/dL 6.4- Final [facility] Function venous Total 8.3 [place] : Panel, Serum g/dL [address], [place] ? ? Blood Low Albumin 3.3 g/dL 3.5- Final [facility] th venous 5.2 [place]: g/dL [address], [place] ? ? Blood ? Bilirubin 0.4 mg/dL <=1. Final H ealth venous Total 2 [place]: mg/d [address], [place] ? ? Blood ? Alkaline 96 U/L 35-1 [facility] Phosphatas 04 [place]: e U/L [address], [place] ? ? Blood ? Ast 16 U/L 10-3 Final [facility] venous 5 [place]: U/L [address], [place] ? ? Blood ? Alt 11 U/L 10-3 Final [facility] venous 5 [place]: U/L [address], [place] ? ? Blood ? Bilirubin <0.20 0.00 Final [facility] th venous Direct mg/dL -0.3 [place]: 0 [address] mg/d St [address], L [place] 05/12/2022 Bacterial Vaginal ? Gardnerel positive nega ? Bk817_anplxi Vaginosis + la tive ale_b urnsvil Vaginitis le: [address] [facility] Vaginal [place] [address], [place] ? ? Vaginal ? Trichomon negative nega ? Cc0 04_southd as tive ale_burnsv il le: [address] [facility] [address] [facility], [place] ? ? Vaginal ? Antonia negative nega ? Cc004 _southd tive ale_burnsv il le: [address] [facility] [address] [facility], [place] 05/07/2022 Urinalysis, ? Result Clean ? ? Hl157_hjsmrx Dipstick Source Catch ale_burn svil le: [address] [facility] [address] [facility], [place] ? ? ? Result negative ? ? Cc004_s outhd Glucose ale_burns damion (mg/DL) le: [address] [facility] [address] [facility], [place] ? ? ? Result negative ? ? Cc004_s outhd Bilirubin/ ale_bu rnsvil Negative le: [address] [facility] [address] [facility], [place] ? ? ? Result negative ? ? Cc004_s outhd Ketones/Ne ale_bu rnsvil gative le: [address] [facility] [address] [facility], [place] ? ? ? Result 1.010 ? ? Mm125_cap thd Specific ale_burn svil [place]/1. le: [address] [facility], [place] ? ? ? Result negative ? ? Cc004_s outhd Blood/Nega ale_bu rnsvil tive le: [address] [facility] [address] [facility], [place] ? ? ? Result 5.0 ? ? Jp850_mhz thd pH/5.0 - ale_burn svil 9.0 le: [address] [facility] [address], [place] ? ? ? Result negative ? ? Cc004_s outhd Protein/Ne ale_bu rnsvil gative le: [address] [facility] [address] [facility], [place] ? ? ? Result 0.2 ? ? Ph955_lke thd Urobilinog ale_bu rnsvil en le: [address] (EU/dl)/ [place] 0.2 - 1.[address], [place] ? ? ? Result negative ? ? Cc004_s outhd Nitrite ale_burns damion le: [address] [facility] [address], [place] ? ? ? Result negative ? ? Cc004_s outhd Leukocytes ale_bu rnsvil /Negative le: [address] [facility] [address] [facility], [place] ? ? ? Result pale ? ? Lw564_bhf thd Color/ yellow ale_burnsv il Yellow to le: [address] [facility] [address] [facility], [place] ? ? ? Result clear ? ? Oc945_rpx thd Appearance ale_bu rnsvil le: [address] [facility] [address] [facility], [place] 04/22/2022 Urinalysis, ? Result Clean ? ? Ig705_xjbgvh Dipstick Source Catch ale_burn svil le: [address] [facility] [address] [facility], [place] ? ? ? Result negative ? ? Cc004_s outhd Glucose ale_burns damion (mg/DL) le: [address] [facility] [address] [facility] [place] ? ? ? Result negative ? ? Cc004_s outhd Bilirubin/ ale_bu rnsvil Negative le: [address] [facility] [address] [facility], [place] ? ? ? Result negative ? ? Cc004_s outhd Ketones/Ne ale_bu rnsvil gative le: [address] [facility] [address] [facility], [place] ? ? ? Result 1.005 ? ? Pg150_fqf thd Specific ale_burn svil [place]/1. le: [address] [place] [address] Suite [facility], [place] ? ? ? Result negative ? ? Cc004_s outhd Blood/Nega ale_bu rnsvil tive le: [address] [facility] [address], [place] ? ? ? Result 7.0 ? ? Dl218_drr thd pH/5.0 - ale_burn svil 9.0 le: [address] [facility] [address], [place] ? ? ? Result negative ? ? Cc004_s outhd Protein/Ne ale_bu rnsvil gative le: [address] [facility] [address], [place] ? ? ? Result 0.2 ? ? Cv816_xgy thd Urobilinog ale_bu rnsvil en le: [address] (EU/dl)/ Jerauld 0.2 - 1.[address], [place] ? ? ? Result negative ? ? Cc004_s outhd Nitrite ale_burns damion le: [address] [facility] [address], [place] ? ? ? Result small ? ? Ci469_vfb thd Leukocytes ale_bu rnsvil /Negative le: [address] [facility] [address], [place] ? ? ? Result yellow ? ? Eo844_kkl thd Color/ ale_burnsv il Yellow to le: 305 [facility] [address], [place] ? ? ? Result clear ? ? En947_vjj thd Appearance ale_bu rnsvil le: [address] [facility] [address], [place] 04/16/2022 Hemoglobin Blood Low Hemoglobi 11.1 g/dL 11.7 Fi nal [facility] (Hb), Blood venous n -15. [place]: 7 [address] g/dL [address], [place] 04/16/2022 CMP, Serum Blood Low Sodium 134 mmol/L 136- Arina l [facility] or Plasma venous 145 [place]: mmol [address], [place] ? ? Blood ? Potassium 3.7 mmol/L 3.4- Final [facility] venous 5.3 [place]: mmol [address] /L [address], [place] ? ? Blood ? Chloride 100 mmol/L 98-1 Final [facility] e[facility] venous 07 [place]: mmol [address] /L [address], [place] ? ? Blood ? Carbon 22 mmol/L 22-2 Final [facility] th venous Dioxide 9 [place]: (Co2) mmol [address] /L [address], [place] ? ? Blood ? Anion Gap 12 mmol/L 7-15 Final [facility] ealth venous mmol [place]: /L [address], [place] ? ? Blood ? Urea 7.9 mg/dL 6.0- [facility] Nitrogen 20.0 [place] : mg/d [address], [place] ? ? Blood Low Creatinin 0.50 mg/dL 0.51 Final [facility] venous e -0.9 [place]: 5 [address] mg/d St [address], L [place] ? ? Blood ? Calcium 8.9 mg/dL 8.6- Final [facility] venous 10.0 [place]: mg/d [address], [place] ? ? Blood High Glucose 153 mg/dL 70-9 Final [facility] lt venous 9 [place]: mg/d [address], [place] ? ? Blood ? Alkaline 80 U/L 35-1 [facility] Phosphatas 04 [place]: e U/L [address], [place] ? ? Blood ? Ast 18 U/L 10-3 Final [facility] venous 5 [place]: U/L [address], [place] ? ? Blood ? Alt 10 U/L 10-3 Final [facility] venous 5 [place]: U/L [address], [place] ? ? Blood ? Protein 6.4 g/dL 6.4- Final Heal th venous Total 8.3 [place]: g/dL [address], [place] ? ? Blood ? Albumin 3.6 g/dL 3.5- Final Heal th venous 5.2 [place]: g/dL [address], [place] ? ? Blood ? Bilirubin 0.6 mg/dL <=1. Final [facility] e[facility] venous Total 2 [place]: mg/d [address], [place] ? ? Blood ? GFR >90 >60 Final [facility] venous Estimate mL/min/1.7 mL/m [place]: 3m2 in/1 [address], 2 [place] 04/16/2022 Bile Acids, Blood ? Ursodeoxy 0.3 umol/L 0.0- Final [facility] Fractionated venous cholic 1.0 [place]: + Total, Acid umol [address] Serum /L St [address], [place] ? ? Blood ? Cholic 0.4 umol/L 0.0- Final [facility]a l[facility] venous Acid 1.9 [place]: umol [address] /L [address], [place] ? ? Blood ? Chenodeox 0.6 umol/L 0.0- Final [facility] venous ycholic 3.4 [place]: umol [address] /L [address], [place] ? ? Blood ? Deoxychol 0.6 umol/L 0.0- Final [facility] venous ic Acid 2.5 [place]: umol [address] /L [address], [place] ? ? Blood ? Bile 1.9 umol/L 0.0- Final Heal th venous Acids 7.0 [place]: Total umol [address] /L [address], [place] 03/26/2022 Hemoglobin Low Hemoglobi 11.4 g/dL 11.7 Fi nal [facility] (Hb), Blood n -15. [place]: 7 [address] g/dL [address], [place] 03/26/2022 Glucose ? Gluose 115 mg/dL 70-1 Final [facility] Tolerance Gest 29 [place]: Test, Screen 1HR mg/d [address] Gestational, 50G L [address], 1-Hour [place] 03/26/2022 RPR (Rapid Blood ? Rapid nonreactiv nonr Final [facility] Plasma venous Plasma e eact [place]: Reagin), Reagin stephanie [address], [place] 03/18/2022 CBC W/ Diff Blood ? WBC Count 8.0 4.0- Arina l [facility] venous 10e3/uL 11.0 [place]: 10e3 [address] /uL [address], [place] ? ? Blood ? RBC Count 3.88 3.80 Final [facility] venous 10e6/uL -5.2 [place]: 0 [address], /uL [place] ? ? Blood ? Hemoglobi 11.7 g/dL 11.7 Final [facility] ealt venous n -15. [place]: 7 [address] g/dL St [address], [place] ? ? Blood ? Hematocri 36.0 % 35.0 Final [facility] venous t -47. [place]: 0 % [address], [place] ? ? Blood ? Mcv 93 fL 78-1 Final [facility] venous 00 [place]: fL [address], [place] ? ? Blood ? Mch 30.2 pg 26.5 Final [facility] venous -33. [place]: 0 pg [address], [place] ? ? Blood ? Mchc 32.5 g/dL 31.5 Final [facility] venous -36. [place]: 5 [address] g/dL St [address], [place] ? ? Blood ? Rdw 12.3 % 10.0 Final [facility] venous -15. [place]: 0 % [address], [place] ? ? Blood ? Platelet 262 150- Final [facility] venous Count 10e3/uL 450 [place]: 10e3 [address] /uL [address], [place] ? ? Blood ? % 78 % ? Final [facility] venous Neutrophil [place]: s [address], [place] ? ? Blood ? % 12 % ? Final [facility] venous Lymphocyte [place]: s [address], [place] ? ? Blood ? % 7 % ? Final [facility] venous Monocytes [place]: [address], [place] ? ? Blood ? % 1 % ? Final [facility] venous Eosinophil [place]: s [address], [place] ? ? Blood ? % 1 % ? Final [facility] venous Basophils [place]: [address], [place] ? ? Blood ? % 1 % ? Final [facility] venous Immature [place] : Granulocyt [address], [place] ? ? Blood ? Nrbcs per 0 /100 <1 Final [facility] th venous 100 Wbc /100 [place]: [address], [place] ? ? Blood ? Absolute 6.3 1.6- Final Healt h venous Neutrophil 10e3/uL 8.3 [place]: s 10e3 [address] /uL [address], [place] ? ? Blood ? Absolute 1.0 0.8- Final Healt h venous Lymphocyte 10e3/uL 5.3 [place]: s 10e3 [address] /uL [address], [place] ? ? Blood ? Absolute 0.6 0.0- Final [facility] venous Monocytes 10e3/uL 1.3 [place]: 10e3 [address] /uL [address], [place] ? ? Blood ? Absolute 0.1 0.0- Final Healt h venous Eosinophil 10e3/uL 0.7 [place]: s 10e3 [address] /uL [address], [place] ? ? Blood ? Absolute 0.0 0.0- Final [facility] venous Basophils 10e3/uL 0.2 [place]: 10e3 [address] /uL [address], [place] ? ? Blood ? Absolute 0.0 <=0. Final Healt h venous Immature 10e3/uL 4 [place]: Granulocyt 10e3 [address] /uL [address], [place] ? ? Blood ? Absolute 0.0 ? Final Healt h venous Nrbcs 10e3/uL [place]: [address], [place] 03/18/2022 Ferritin, ? Ferritin 13 NG/mL 6-17 Final [facility] Serum or 5 [place] : Plasma NG/m [address], [place] 03/18/2022 Iron + Total ? Iron 75 ug/dL 35-1 Final [facility] Iron-binding 80 [place]: Capacity ug/d [address] (TIBC), L St [address], Serum [place] ? ? High Iron 541 ug/dL 240- Final [facility] Binding 430 [place]: Capacity ug/d [address], [place] ? ? Low Iron 14 % 15-4 Final Health Saturation 6 % [place]: Index [address], [place] 03/18/2022 Urinalysis, ? Result Clean ? ? Ff389_vfnxdz Dipstick Source Catch ale_burn svil le: [address] [facility] [address] [facility] [place] ? ? ? Result negative ? ? Cc004_s outhd Glucose ale_burns damion (mg/DL) le: [address] [facility] Suite [facility] [place] ? ? ? Result negative ? ? Cc004_s outhd Bilirubin/ ale_bu rnsvil Negative le: [address] [place] [address], [place] ? ? ? Result negative ? ? Cc004_s outhd Ketones/Ne ale_bu rnsvil gative le: [address] [place] [address], [place] ? ? ? Result 1.005 ? ? Ql373_vip thd Specific ale_burn svil [place]/1. le: [address] [place] [address] Suite [facility], [place] ? ? ? Result negative ? ? Cc004_s outhd Blood/Nega ale_bu rnsvil tive le: [address] [place] [address], [place] ? ? ? Result 5.5 ? ? Ot641_ijm thd pH/5.0 - ale_burn svil 9.0 le: [address] [place] [address], [place] ? ? ? Result negative ? ? Cc004_s outhd Protein/Ne ale_bu rnsvil gative le: [address] [facility] [address] [facility], [place] ? ? ? Result 0.2 ? ? Wu241_kwo thd Urobilinog ale_bu rnsvil en le: [address] (EU/dl)/ Jerauld 0.2 - 1.[address], [place] ? ? ? Result negative ? ? Cc004_s outhd Nitrite ale_burns damion le: [address] [place] [address], [place] ? ? ? Result trace ? ? Lf242_hpp thd Leukocytes ale_bu rnsvil /Negative le: [address] [place] [address], [place] ? ? ? Result yellow ? ? Uo737_fyj thd Color/ ale_burnsv il Yellow to le: [address] [place] [address] [facility] [place] ? ? ? Result clear ? ? Cv081_ujj thd Appearance ale_bu rnsvil le: [address] [facility] [place] [address], [place] 03/07/2022 Culture, Urine ? Urine see ? Final [facility] alth Urine clean Culture results [place] : catch below [address], [place] 03/07/2022 Bacterial ? Gardnerel positive nega ? So240_vabuvf Vaginosis + la tive ale_b urnsvil Vaginitis le: [address] [facility] [place] Vaginal [place] Suite [facility], [place] ? ? ? Trichomon negative nega ? Cc00 4_southd as tive ale_burnsv il le: [address] [facility] [place] Suite [facility], [place] ? ? ? Antonia negative nega ? Cc004_ southd tive ale_burnsv il le: [address] [facility] [place] [address], [place] 03/07/2022 Urinalysis, ? Result Clean ? ? Gs639_stshkt Dipstick Source Catch ale_burn svil le: [address] [place] [address], [place] ? ? ? Result negative ? ? Cc004_s outhd Glucose ale_burns damion (mg/DL) le: [address] [place] [place] Suite [facility] [place] ? ? ? Result negative ? ? Cc004_s outhd Bilirubin/ ale_bu rnsvil Negative le: [address] [place] [address], [place] ? ? ? Result negative ? ? Cc004_s outhd Ketones/Ne ale_bu rnsvil gative le: [address] [facility], [place] ? ? ? Result 1.015 ? ? Ju061_wjv thd Specific ale_burn svil Bledsoe/1. le: [address] [place] [address] Suite [facility], [place] ? ? ? Result negative ? ? Cc004_s outhd Blood/Nega ale_bu rnsvil tive le: [address] [facility] Suite [facility], [place] ? ? ? Result 6.0 ? ? Sr106_uvs thd pH/5.0 - ale_burn svil 9.0 le: [address] [facility] Suite [facility], [place] ? ? ? Result negative ? ? Cc004_s outhd Protein/Ne ale_bu rnsvil gative le: 305 [facility] Suite [facility], [place] ? ? ? Result 0.2 ? ? Cp578_wqm thd Urobilinog ale_bu rnsvil en le: [address] E[address] (EU/dl)/ [address] 0.2 - 1.[address] [facility], [place] ? ? ? Result negative ? ? Cc004_s outhd Nitrite ale_burns damion le: 305 [facility] Suite [facility] [place] ? ? ? Result small ? ? Gl912_bqb thd Leukocytes ale_bu rnsvil /Negative le: [address] [facility] Suite [facility] [place] ? ? ? Result yellow ? ? Yz145_ypb thd Color/ ale_burnsv il Yellow to le: [address] [facility] Suite [facility] [place] ? ? ? Result clear ? ? So132_pts thd Appearance ale_bu rnsvil le: [address] [facility] [place] 02/26/2022 Culture, Urine ? Urine see ? Final M He alth Urine clean Culture results [place] : catch below [address], [place] 02/26/2022 Urinalysis, ? Result Clean ? ? Rc296_ecvgco Dipstick Source Catch ale_burn svil le: [address] [facility] [address], [place] ? ? ? Result negative ? ? Cc004_s outhd Glucose ale_burns damion (mg/DL) le: [address] [facility] [address], [place] ? ? ? Result negative ? ? Cc004_s outhd Bilirubin/ ale_bu rnsvil Negative le: [address] [facility] [address] [facility] [place] ? ? ? Result negative ? ? Cc004_s outhd Ketones/Ne ale_bu rnsvil gative le: [address] [facility] [address], [place] ? ? ? Result 1.015 ? ? Rc829_fbg thd Specific ale_burn svil [place]/1. le: [address] [place] [address] Suite [facility] [place] ? ? ? Result negative ? ? Cc004_s outhd Blood/Nega ale_bu rnsvil tive le: [address] [facility] Suite [facility] [place] ? ? ? Result 5.0 ? ? Sl648_uge thd pH/5.0 - ale_burn svil 9.0 le: [address] [facility] Suite [facility] [place] ? ? ? Result trace ? ? Rf001_arm thd Protein/Ne ale_bu rnsvil gative le: [address] [facility] Suite [facility] [place] ? ? ? Result 0.2 ? ? Mk781_lnr thd Urobilinog ale_bu rnsvil en le: [address] (EU/dl)/ Jerauld 0.2 - 1.0 [facility] Suite [facility], [place] ? ? ? Result negative ? ? Cc004_s outhd Nitrite ale_burns damion le: [address] [facility] Suite [facility] [place] ? ? ? Result negative ? ? Cc004_s outhd Leukocytes ale_bu rnsvil /Negative le: [address] [facility] [address] [facility], [place] ? ? ? Result yellow ? ? Wp422_hox thd Color/ ale_burnsv il Yellow to le: [address] [facility] Suite [facility] [place] ? ? ? Result slightly ? ? Cc004_s outhd Appearance cloudy ale_bu rnsvil le: [address] [facility] [place] 01/31/2022 Bacterial Vaginal ? Gardnerel positive nega Fin al Jn576_cltnyw Vaginosis + la tive ale_b urnsvil Vaginitis le: [address] [facility] [address] [facility] [place] ? ? Vaginal ? Trichomon neg nega Final Cc004 _southd as tive ale_burnsv il le: [address] [facility] Suite [facility] [place] ? ? Vaginal ? Antonia neg nega Final Cc004_s outhd tive ale_burnsv il le: [address] [facility] Suite [facility] [place] 01/07/2022 Culture, URINE ? Urine final ? Final [facility] orp: Urine CLEAN Culture, report [address] 10 0, [place] ? ? URINE ? Result 1 no growth ? Final [facility] or[facility]: CLEAN [address] , [place] 01/07/2022 Urinalysis, ? Result Clean ? ? Id488_swcqfr Dipstick Source Catch ale_burn svil le: [address] [facility] [address] [facility] [place] ? ? ? Result negative ? ? Cc004_s outhd Glucose ale_burns damion (mg/DL) le: [address] [facility] Suite [facility] [place] ? ? ? Result negative ? ? Cc004_s outhd Bilirubin/ ale_bu rnsvil Negative le: [address] [place] [address], [place] ? ? ? Result negative ? ? Cc004_s outhd Ketones/Ne ale_bu rnsvil gative le: [address] [facility] Suite [facility] [place] ? ? ? Result 1.010 ? ? Uq257_xov thd Specific ale_burn svil [place]/1. le: [address] [place] [address] ? ? ? Result trace ? ? Lt366_igy thd Blood/Nega ale_bu rnsvil tive le: [address] [facility] Suite [facility] [place] ? ? ? Result 6.5 ? ? Sz104_lup thd pH/5.0 - ale_burn svil 9.0 le: [address] [facility] [address], [place] ? ? ? Result negative ? ? Cc004_s outhd Protein/Ne ale_bu rnsvil gative le: [address] [facility] [address], [place] ? ? ? Result 0.2 ? ? Fy217_rol thd Urobilinog ale_bu rnsvil en le: [address] (EU/dl)/ [address] 0.2 - 1.[address], [place] ? ? ? Result negative ? ? Cc004_s outhd Nitrite ale_burns damion le: [address] [facility] [place] [address], [place] ? ? ? Result negative ? ? Cc004_s outhd Leukocytes ale_bu rnsvil /Negative le: [address] [facility] [address], [place] ? ? ? Result pale ? ? Pb787_mui thd Color/ yellow ale_burnsv il Yellow to le: [address] [facility] [address], [place] ? ? ? Result clear ? ? Zi109_vvh thd Appearance ale_bu rnsvil le: [address] [facility] [place] [address], [place] 01/02/2022 Afp ? Results report ? Final [facility] or[facility] PSC: (Alpha-fetop [address] [facility]) [facility] d Panel, [address], [place] Screen, Serum ? ? ? Test *screen ? Final [facility] P SC: Results: negative* [address] [facility] [address], [place] ? ? ? Gest. Age 16.6 weeks ? Final [facility]: on [address] [facility] Date [address], [place] ? ? ? Gestat. LMP ? Final [facility]: Age Based [address], [place] ? ? ? Maternal 31.4 yr ? Final [facility]: Age at Rehan [address], [place] ? ? ? Race ? Final [facility] PSC: [address] [facility] [address], [place] ? ? ? Weight 143 lbs ? Final [facility] PSC: [address] [facility] [address], [place] ? ? ? Insulin no ? Final [facility] PSC: Dep [address], [place] ? ? ? Multiple no ? Final [facility] PSC: Gestation [address], [place] ? ? ? AFP Value 46.8 NG/mL ? Final [facility]: [address], [place] ? ? ? Afp Mom 1.20 ? Final [facility] PSC: [address], [place] ? ? ? OSBR Risk 6499 ? Final [facility] P[facility]: 1 in [address], [place] ? ? ? Interpret comment ? Final [facility] PSC: ation [address], [place] ? ? ? Comment: comment ? Final [facility] PSC: [address], [place] ? ? ? Pdf . ? Final [facility] PS C: [address], [place] 01/02/2022 Please Note ? Please comment ? Final [facility]: Note [address] , [place] 01/01/2022 Afp ? Results report ? Final [facility] P[facility]: (Alpha-fetop [address] [facility]) [address] Panel, [address], [place] Screen, Serum ? ? ? Test see ? Final [facility] PS C: Results: interpreta [address], [place] ? ? ? Gest. Age comment ? Final [facility] PSC: on weeks [address], [place] ? ? ? Gestat. ? Final [facility] PSC: Age Based provided [address], [place] ? ? ? Maternal 31.5 yr ? Final [facility]: Age at Rehan [address], [place] ? ? ? Race comment ? Final [facility] P SC: [address], [place] ? ? ? Weight 143 lbs ? Final [facility] PSC: [address], [place] ? ? ? Insulin comment ? Final [facility] PSC: Dep [address], [place] ? ? ? Multiple comment ? Final [facility] P[facility]: Gestation [address], [place] ? ? ? AFP Value 41.0 NG/mL ? Final [facility]: [address] [facility] 132, [place] ? ? ? Afp Mom see ? Final [facility] PSC: interpreta [address] [facility] 132, [place] ? ? ? OSBR Risk see ? Final [facility] PSC: 1 in interpreta [address] [facility] 132, [place] ? ? ? Interpret comment ? Final [facility] PSC: ation [address] [facility] 132, [place] ? ? ? Comment: comment ? Final [facility] PSC: [address] [facility] 132, [place] ? ? ? Pdf . ? Final [facility] PS C: [address] [facility] 132, [place] 01/01/2022 Bile Acids, Blood ? Ursodeoxy 0.30 ? Arina l [employer] Fractionated venous cholic umol/L Coag ulation: + Total, Acids [address] [facility] ? ? Blood ? Cholic 1.3 umol/L ? Final [employer] venous Acids Coagulatio n: 43[address] [facility] ? ? Blood ? Chenodeox 2.1 umol/L ? Final [employer] venous ycholic Coagulati on: Acids 43[address] [facility] ? ? Blood ? Deoxychol 2.3 umol/L ? Final [employer] venous ic Acids Coagulat ion: [address] [facility] ? ? Blood ? Total 6.0 umol/L ? Final [employer] venous Bile Acids Coagul ation: 43[address] [facility] 12/27/2021 Urinalysis, ? Result Clean ? ? Yl665_eisfyy Dipstick Source Catch ale_burn svil le: [address] [facility] Suite [facility], [place] ? ? ? Result negative ? ? Cc004_s outhd Glucose ale_burns damion (mg/DL) le: [address] [facility] Suite [facility], [place] ? ? ? Result negative ? ? Cc004_s outhd Bilirubin/ ale_bu rnsvil Negative le: [address] [facility] [address] [facility], [place] ? ? ? Result small (15) ? ? Cc004 _southd Ketones/Ne ale_bu rnsvil gative le: [address] [facility] [address] [facility] [place] ? ? ? Result 1.015 ? ? Xe486_evk thd Specific ale_burn svil [place]/1. le: [address] [facility], [place] ? ? ? Result negative ? ? Cc004_s outhd Blood/Nega ale_bu rnsvil tive le: [address] [facility] Suite [facility] [place] ? ? ? Result 5.0 ? ? Wa411_bsu thd pH/5.0 - ale_burn svil 9.0 le: [address] [facility] Suite [facility] [place] ? ? ? Result negative ? ? Cc004_s outhd Protein/Ne ale_bu rnsvil gative le: [address] [facility] [address] [facility] [place] ? ? ? Result 0.2 ? ? Vc962_yfh thd Urobilinog ale_bu rnsvil en le: [address] (EU/dl)/ [address] 0.2 - 1.[address] [facility], [place] ? ? ? Result negative ? ? Cc004_s outhd Nitrite ale_burns damion le: [address] [facility] Suite [facility] [place] ? ? ? Result negative ? ? Cc004_s outhd Leukocytes ale_bu rnsvil /Negative le: [address] [facility] Suite [facility] [place] ? ? ? Result yellow ? ? Jr229_rie thd Color/ ale_burnsv il Yellow to le: 305 [facility] Suite [facility], [place] ? ? ? Result clear ? ? Sc326_kya thd Appearance ale_bu rnsvil le: [address] [facility] Suite [facility] [place] 11/27/2021 Culture, URINE ? Urine final ? Final [facility]: Urine CLEAN Culture, report [address] C[address] 10 0, [place] ? ? URINE ? Result 1 comment ? Final [facility]: CLEAN [address] , [place] 11/27/2021 Urinalysis, ? Result Clean ? ? Qy350_gvabsl Dipstick Source Catch ale_burn svil le: [address] [facility] Suite [facility] [place] ? ? ? Result negative ? ? Cc004_s outhd Glucose ale_burns damion (mg/DL) le: [address] [facility] Suite [facility] [place] ? ? ? Result negative ? ? Cc004_s outhd Bilirubin/ ale_bu rnsvil Negative le: [address] [facility] [address], [place] ? ? ? Result negative ? ? Cc004_s outhd Ketones/Ne ale_bu rnsvil gative le: [address] [facility] [address] [facility] [place] ? ? ? Result 1.010 ? ? Zy489_lcd thd Specific ale_burn svil [place]/1. le: [address] [facility] [place] ? ? ? Result 8.0 ? ? Tj331_hjq thd pH/5.0 - ale_burn svil 9.0 le: [address] [facility] Suite [facility] [place] ? ? ? Result negative ? ? Cc004_s outhd Blood/Nega ale_bu rnsvil tive le: [address] [facility] Suite [facility] [place] ? ? ? Result negative ? ? Cc004_s outhd Protein/Ne ale_bu rnsvil gative le: [address] [facility] Suite [facility] [place] ? ? ? Result 0.2 ? ? Xe880_fjs thd Urobilinog ale_bu rnsvil en le: [address] (EU/dl)/ [place] 0.2 - 1.0 [facility] Suite [facility] [place] ? ? ? Result negative ? ? Cc004_s outhd Nitrite ale_burns damion le: [address] [facility] Suite [facility] [place] ? ? ? Result negative ? ? Cc004_s outhd Leukocytes ale_bu rnsvil /Negative le: [address] [facility] Suite [facility] [place] ? ? ? Result yellow ? ? Tf501_ljg thd Color/ ale_burnsv il Yellow to le: [address] [facility] [address], [place] ? ? ? Result clear ? ? Db272_qfs thd Appearance ale_bu rnsvil le: [address] [facility] Suite [facility] [place] 11/27/2021 Bacterial ? Gardnerel neg nega Final Oc406_gstpwg Vaginosis + la tive ale_b urnsvil Vaginitis le: [address] [facility] [address], [place] ? ? ? Trichomon neg nega Final Cc004_ southd as tive ale_burnsv il le: [address] [facility] Suite [facility] [place] ? ? ? Antonia neg nega Final If684_ru uthd tive ale_burnsv il le: [address] [facility] Suite [facility] [place] 11/27/2021 Urinalysis, ? Result Clean ? ? Ui552_zybbbx Dipstick Source Catch ale_burn svil le: 305 [facility] Suite [facility] [place] ? ? ? Result negative ? ? Cc004_s outhd Glucose ale_burns damion (mg/DL) le: [address] [facility] Suite [facility] [place] ? ? ? Result negative ? ? Cc004_s outhd Bilirubin/ ale_bu rnsvil Negative le: [address] [facility] [address] [facility] [place] ? ? ? Result negative ? ? Cc004_s outhd Ketones/Ne ale_bu rnsvil gative le: [address] [facility] Suite [facility] [place] ? ? ? Result 1.010 ? ? Oj299_xfl thd Specific ale_burn svil [place]/1. le: [address] [facility] [place] ? ? ? Result negative ? ? Cc004_s outhd Blood/Nega ale_bu rnsvil tive le: [address] [facility] Suite [facility] [place] ? ? ? Result 8.0 ? ? Nh714_zia thd pH/5.0 - ale_burn svil 9.0 le: 305 [facility] Suite [facility] [place] ? ? ? Result negative ? ? Cc004_s outhd Protein/Ne ale_bu rnsvil gative le: [address] [facility] [facility] [place] [address] [place] ? ? ? Result 0.2 ? ? By421_sxy thd Urobilinog ale_bu rnsvil en le: [address] (EU/dl)/ [address] 0.2 - 1.[address], [place] ? ? ? Result negative ? ? Cc004_s outhd Nitrite ale_burns damion le: [address] [place] [address], [place] ? ? ? Result negative ? ? Cc004_s outhd Leukocytes ale_bu rnsvil /Negative le: [address] [facility] [address], [place] ? ? ? Result yellow ? ? Zl952_bah thd Color/ ale_burnsv il Yellow to le: [address] [place] [facility] Suite [facility] [place] ? ? ? Result clear ? ? Je291_hcs thd Appearance ale_bu rnsvil le: [address] [facility] [facility] [place] 11/20/2021 Chromosome Blood ? No ? ? ? Se quenom 13+18+21+X+Y venous observatio INC: 3595 Aneuploidy, n [facility] Blood recorded. Ct, [place] 11/20/2021 Chromosome BLOOD ? Gestation certified nurses' aide ? Cance lle [facility]: 13+18+21+X+Y VENOUS d [address] Aneuploidy, [address], [place] ? ? BLOOD ? tnp ? Final [facility]: VENOUS Fraction [address], [place] ? ? BLOOD ? Gestation certified nurses' aide ? Cancelle [facility]: VENOUS al Age > d 3505 or = 9W: [address], [place] ? ? BLOOD ? Test tnp ? Cancelle [facility]: VENOUS Result d [address], [place] ? ? BLOOD ? Lab certified nurses' aide ? Cancelle [facility]: VENOUS Director d [address], [place] ? ? BLOOD ? Approved certified nurses' aide ? Cancelle [facility]: VENOUS by d [address], [place] ? ? BLOOD ? Trisomy certified nurses' aide ? Cancelle [facility]: VENOUS 21 (Down d [address]5 Syndrome) [address], [place] ? ? BLOOD ? Trisomy certified nurses' aide ? Cancelle [facility]: VENOUS 18 d [address]5 ([address] Syndrome) [address], [place] ? ? BLOOD ? Trisomy certified nurses' aide ? Cancelle [facility]: VENOUS 13 (Patau d [address] Syndrome) [address], [place] ? ? BLOOD ? Sex certified nurses' aide ? Cancelle [facility]: VENOUS d [address], [place] ? ? BLOOD ? Monosomy certified nurses' aide ? Cancelle [facility]: VENOUS X (Singh d [address] Syndrome) [address], [place] ? ? BLOOD ? Xyy certified nurses' aide ? Cancelle [facility]: VENOUS (Lu d [address] Syndrome) [address], [place] ? ? BLOOD ? Xxy certified nurses' aide ? Cancelle [facility]: VENOUS (Klinefelt d [address] Syndrome) [address], [place] ? ? BLOOD ? Xxx certified nurses' aide ? Cancelle [facility]: VENOUS (Triple X d [address] Syndrome) [address], [place] ? ? BLOOD ? Negative certified nurses' aide ? Cancelle [facility]: VENOUS Predictive d [address], [place] ? ? BLOOD ? Positive certified nurses' aide ? Cancelle [facility]: VENOUS Predictive d [address], [place] ? ? BLOOD ? About the certified nurses' aide ? Cancelle [facility]: VENOUS Test d [address], [place] ? ? BLOOD ? Test certified nurses' aide ? Cancelle [facility]: VENOUS Method d [address], [place] ? ? BLOOD ? Performan certified nurses' aide ? Cancelle [facility]: VENOUS ce d [address], [place] ? ? BLOOD ? Performan certified nurses' aide ? Cancelle [facility]: VENOUS ce d [address], [place] ? ? BLOOD ? Limitatio certified nurses' aide ? Cancelle [facility]: VENOUS ns of the d [address], [place] ? ? BLOOD ? Note certified nurses' aide ? Cancelle [facility]: VENOUS d [address], [place] ? ? BLOOD ? Reference certified nurses' aide ? Cancelle [facility]: VENOUS s d [address], [place] ? ? BLOOD ? Pdf certified nurses' aide ? Cancelle [facility]: VENOUS d [address], [place] 11/20/2021 Rubella IgG BLOOD ? Rubella 1.01 index immu Fi nal [facility]: Ab, Quant VENOUS Antibodies ne 849 0 [place] Immunoassay, , IgG >0.9 Dr Matt stout 100, Serum or 9 [place] Plasma inde x 11/20/2021 Specimen BLOOD ? Specimen tnp ? Final [facility]: Status VENOUS Status [address] , [place] 11/08/2021 Obstetric Blood ? Hbsag negative nega Final [facility]: Screen, venous Screen tive [address]ansen 1 00, Blood [place] ? ? Blood ? Rpr non non Final [facility]: venous reactive reac [address] , [place] ? ? Blood Below Low Rubella 0.95 index immu Final [facility]: [place]odies [place] 84[address] U pl[address] , IgG >0.9 Dr [address] 100 , 9 [place] inde x ? ? Blood ? ABO A ? Final [facility]: venous Grouping [address] , [place] ? ? Blood ? Rh Factor positive ? Final [facility]: venous [address] , [place] ? ? Blood ? Antibody negative nega Final [facility]: venous Screen tive [address] , [place] ? ? Blood ? HIV non non Final [facility]: venous Ab/P24 Ag reactive reac [address] , [place] ? ? Blood ? Wbc 8.0 3.4- Final [facility]: venous x10e3/uL 10.[address] , 3/uL [place] ? ? Blood ? Rbc 4.35 3.77 Final [facility]: venous x10e6/uL -5.[address] , x10e [place] 6/uL ? ? Blood ? Hemoglobi 12.8 g/dL 11.1 Final Lab reji: venous n -15. [address] , g/dL [place] ? ? Blood ? Hematocri 38.6 % 34.0 Final [facility]: venous t -46. [address] 6 % [address] , [place] ? ? Blood ? Mcv 89 fL 79-9 Final [facility]: venous [address] , [place] ? ? Blood ? Mch 29.4 pg 26.6 Final [facility]: venous -33. [address] , [place] ? ? Blood ? Mchc 33.2 g/dL 31.5 Final [facility] : venous -35. [address] , g/dL [place] ? ? Blood ? Rdw 12.6 % 11.7 Final [facility]: venous -15. [address] 4 % [address] , [place] ? ? Blood ? Platelets 256 150- Final [facility]: venous x10e3/uL [address] , 3/uL [place] ? ? Blood ? Neutrophi 71 % not Final [facility]: venous ls esta [address] % [address] , [place] ? ? Blood ? Lymphs 18 % not Final [facility]: venous esta [address] % [address] , [place] ? ? Blood ? Monocytes 8 % not Final [facility]: venous esta [address] % [address] , [place] ? ? Blood ? Eos 2 % not Final [facility]: venous esta [address] % [address] , [place] ? ? Blood ? Basos 1 % not Final [facility]: venous esta [address] % Dr [address] , [place] ? ? Blood ? Immature certified nurses' aide ? Cancelle [facility]: venous Cells d [address] , [place] ? ? Blood ? Neutrophi 5.7 1.4- Final [facility]: venous ls x10e3/uL 7.0 [address] and (Absolute) x10e Dr [address], 3/uL [place] ? ? Blood ? Lymphs 1.4 0.7- Final [facility]: venous (Absolute) x10e3/uL 3.[address] , 3/uL [place] ? ? Blood ? Monocytes 0.6 0.1- Final [facility]: venous (absolute) x10e3/uL 0.[address] , 3/uL [place] ? ? Blood ? Eos 0.2 0.0- Final [facility]: venous (Absolute) x10e3/uL 0.4 [address] x10e Dr Johansen 100 , 3/uL [place] ? ? Blood ? Baso 0.1 0.0- Final [facility]: venous (Absolute) x10e3/uL 0.[address] Johansen 100 , 3/uL [place] ? ? Blood ? Immature 0 % not Final [facility] : venous Granulocyt esta [address] U pland es b. % Dr Johansen 100 , [place] ? ? Blood ? Immature 0.0 0.0- Final [facility] : venous Grans x10e3/uL 0.1 8490 Upl and (Abs) x10e Dr Johansen 100 , 3/uL [place] ? ? Blood ? Nrbc certified nurses' aide ? Cancelle [facility]: venous d [address] Joh[address] , [place] ? ? Blood ? Hematolog certified nurses' aide ? Cancelle [facility]: venous y d 84[address] Comments: Dr Johansen 100, [place] 11/08/2021 CT + NG DNA, ? Chlamydia negative nega F inal [facility]: PCR, Trachomati tive [address] Unspecified s, NICK St St e 1200, Specimen [place] ? ? ? Neisseria negative nega Final [facility]: Gonorrhoea tive [address] e, NICK [address] 120 0, [place] 11/08/2021 Hepatitis C ? Hep C <0.1 s/co 0.0- Final [facility]: Ab, Virus Ab ratio 0.9 8490 Upl and Olhyhw-du-dp s/co Dr Ott te 100, toff, Serum rati [facility] or Plasma o 11/08/2021 Culture, Urine ? Urine final ? Final [facility]: Urine clean Culture, report [address] Rout[address] Johansen 10 0, [place] ? ? Urine ? Result 1 comment ? Final [facility]: clean [address] Johansen 100 , [place] 10/10/2021 HCG,beta ? HCG,beta 2140 ? Final S aint Jag Subunit, Qnt Subunit,qn mIU/mL [facility]: t,serum [address] [place] 1 0, [place] on 10/09/2021 Bacterial Vaginal ? Gardnerel negative nega Fin al Gh086_lvrlnu Vaginosis + la tive ale_b urnsvil Vaginitis le: [address] [facility], [facility] [place] Suite [facility], [place] ? ? Vaginal ? Trichomon negative nega Final Cc0 04_southd as tive ale_burnsv il le: [address] [facility] Suite [facility], [place] ? ? Vaginal ? Antonia negative nega Final Cc004 _southd tive ale_burnsv il le: [address] [place] [address], [place] 10/08/2021 HCG, Intact BLOOD ? HCG,beta 874 mIU/mL ? F inal [facility]: + Beta VENOUS Subunit,qn 8490 U pland Subunit, t,serum Dr Eleno 100, Quant, Serum [place] or Plasma 10/08/2021 Urinalysis, ? Result Clean ? ? [id number] Dipstick Source Catch ale_burn svil le: [address] [facility] Suite [facility], [place] ? ? ? Result negative ? ? Cc004_s outhd Glucose ale_burns damion (mg/DL) le: [address] [facility] Suite [facility], [place] ? ? ? Result negative ? ? Cc004_s outhd Bilirubin/ ale_bu rnsvil Negative le: [address] [place] [address], [place] ? ? ? Result negative ? ? Cc004_s outhd Ketones/Ne ale_bu rnsvil gative le: [address] [facility] Suite [facility], [place] ? ? ? Result 1.005 ? ? Rj649_nvo thd Specific ale_burn svil Bledsoe/1. le: [address] [facility], [place] ? ? ? Result negative ? ? Cc004_s outhd Blood/Nega ale_bu rnsvil tive le: [address] [facility] Suite [facility], [place] ? ? ? Result 6.5 ? ? Vi515_zef thd pH/5.0 - ale_burn svil 9.0 le: [address] [facility] [address], [place] ? ? ? Result negative ? ? Cc004_s outhd Protein/Ne ale_bu rnsvil gative le: [address] [facility] [address], [place] ? ? ? Result 0.2 ? ? Kw737_niz thd Urobilinog ale_bu rnsvil en le: [address] (EU/dl)/ Jerauld 0.2 - [address], [place] ? ? ? Result negative ? ? Cc004_s outhd Nitrite ale_burns damion le: [address] [facility] [address], [place] ? ? ? Result negative ? ? Cc004_s outhd Leukocytes ale_bu rnsvil /Negative le: [address] [facility] [address], [place] ? ? ? Result yellow ? ? Cl332_oma thd Color/ ale_burnsv il Yellow to le: [address] [facility] Suite [facility], [place] ? ? ? Result clear ? ? Lw576_jdp thd Appearance ale_bu rnsvil le: [address] [facility] [facility] [address], [place] 08/16/2021 Testosterone ? Testoster 31 NG/dL 13-7 F inal [facility]: , Free + one 1 8490 Upl and Total, Serum NG/d Dr Matt avalos, L [place] ? ? ? Free 3.1 pg/mL 0.0- Final [facility] : Testostero 4.2 8490 [address] pl[address] ne(direct) pg/m Dr Lehman, Shayy Virk 08/16/2021 Dhea, Serum ? Dehydroep 379 NG/dL 31-7 F inal [facility] iandroster 01 ([facility] one (DHEA) NG/d : [address] [facility] 08/16/2021 FSH Blood ? Fsh 6.5 mIU/mL ? Final [facility]: (Follicle-st venous [address] Lehman, Hormone)Nisreen od Serum 06/05/2021 Pap Smear ? Interpret nilm ? Final [facility]: Tests - [facility] [address] ? ? ? Category: nil ? Final [facility] p PSC: 3504 [facility] ? ? ? Adequacy: endo ? Final [facility] p PSC: 3504 [facility] ? ? ? Clinician comment ? Final [facility] r[facility] PSC: Provided 3504 Odilia th ICD10: [place] ? ? ? Performed comment ? Final [facility] PSC: by: 3504 [facility] ? ? ? Note: comment ? Final [facility] P SC: 3504 [facility] ? ? ? Test comment ? Final [facility] P SC: Methodolog 3504 S outh y: [place] ? ? ? HPV negative nega Final [facility] PSC: Aptima tive 3504 [facility] ? Chromosome ? No ? ? ? Likva [employer]: 3595 (Karyotype), n [facility] Blood/tissue recorded. C jennifer, [place] Past Encounters Encounter Date Diagnosis Provider 06/19/2022 Dysuria Tamie Caba MD: 3 05 [facility] Rebel Crews, [address] [address], Ph. 06/16/2022 Postoperative Pain Kimberly Ramsay MD: 30 5 [facility] Rebel Crews, [address] [address], Ph. 06/03/2022 Gestation Period, 38 Weeks Kimberly Ramsay MD: 305 [facility] Rebel Crew[address] [address], Ph. 06/03/2022 Marginal Insertion of Umbilical Cord; Jl Jessica MD: 305 [facility] Gestation Period, 38 Weeks [address] [address], Ph. 05/28/2022 Huron Mariam Contractions Kimberly Ramsay MD: 305 [facility] Rebel Crew[address] [address], Ph. 05/27/2022 Gestation Period, 37 Weeks Kimberly Ramsay MD: 305 [facility] Rebel Crew[address] [address], Ph. 05/27/2022 Marginal Insertion of Umbilical Cord; An fifi Messina MD: [address] Gestation Period, 37 Weeks Rebel beck, [address] [address], Ph. 05/21/2022 Gestation Period, 36 Weeks; History of A hien Ramsay MD: [address] Section Rebel Crews, [address] [address], Ph. 05/20/2022 Marginal Insertion of Umbilical Cord; Jl Jessica MD: [address] Gestation Period, 36 Weeks Rebel beck, [address] [address], Ph. 05/16/2022 Routine Care; Gestation Kimberly corral MD: [address] Period, 35 Weeks Rebel Crews, [address] [address], Ph. 05/15/2022 Gestation Period, 35 Weeks; Pruritus KALYANI Potts: 305 of Skin; Marginal Insertion of [facility]; History of [address] [place] [address], Premature Rupture of Membranes; Ph. [phone] History of Herpes Zoster; History of Graves' Disease; Ultrasound Scan Abnormal 05/15/2022 Pruritus of Skin; Gestation Period, 35 A ella Messina MD: [address] Weeks Rebel Crews, [address] [address], Ph. 05/13/2022 Pruritus of Skin Faith eParson MD: 305 [facility] Rebel Crews, [address] [address], Ph. 05/12/2022 Vaginal Discharge; Gestation Period, Juliana wadna Flowers MD: [address] 35 Weeks; Supervision of High Risk Inés greer [place], [place] [address], with [place] [address], Ph. Section Done; History of Premature Delivery; Marginal Insertion of Umbilical Cord 05/07/2022 Urgent Desire to Urinate; Gestation Kimberly Ramsay MD: [address] Period, 34 Weeks Rebel Crews, [address], [place] [address], Ph. 05/07/2022 Reduced Amniotic Fluid; Gestation Beena [place]ina MD: [address] Period, 34 Weeks Rebel Crews, [address], [place] [address], Ph. 04/29/2022 Huron Becerra Contractions; Marginal Marga Ramsay MD: [address] Insertion of Umbilical Cord Rebel bearden, [facility] [address] [address], Ph. 04/29/2022 Marginal Insertion of Umbilical Cord; An fifi Messina MD: [address] Gestation Period, [address] [place] [address], [place] [address], Ph. 04/25/2022 Gestation Period, 32 Weeks; History of L tan Emery MD: 305 Section; History of Premature E ast Rebel [place], [address], [place] [address], Ph. 04/22/2022 Irregular Uterine Contractions; Kimberly sheppard MD: 305 [facility] Gestation Period, 32 Weeks Rebel beck, [facility] [address], [place] [address], Ph. 04/16/2022 Pruritus of Skin; Gestation Period, 31 E KALYANI Saeed: 305 Weeks; History of Section; [facility] History of Graves' Disease; Marginal [address] [place] [address], Insertion of Umbilical Cord; History Ph. of Premature Rupture of Membranes; History of Thromboembolism; Anemia of ; Restless Legs 04/09/2022 Gestation Period, 30 Weeks Kimberly Ramsay MD: 305 [facility] [place], [address] [address], Ph. 03/26/2022 Screening; History of Kimberly sheppard MD: 305 [facility] Section; G[facility] Period, [address] [facility] [place], [address], [place] [address], Ph. 03/26/2022 Marginal Insertion of Umbilical Cord; Macey [place] MD: 305 [facility] Gestation Period, 28 Weeks Jerauld Otf beck, [address] [address], Ph. 03/18/2022 Ferritin Level Low; Tanmay Becerra Kimberly corral MD: 305 [facility], [address] [address], Ph. 03/07/2022 Tanmay Becerra Contractions Karie ross MD: 305 [facility], [facility] [address] [address], Ph. 02/26/2022 Huron Becerra Contractions; Gestation An duane Ramsay MD: 305 [facility] Period, 24 Weeks Jerauld [place], [address] [address], Ph. 02/12/2022 Bacterial Vaginosis; Gestation Period, L DAVID Hutchison: [address] 22 Weeks; History of Premature [address], [address], [place], [place] [address], Ph. [phone] 02/12/2022 History of Premature Rupture Luis E Caba MD: [address] of Membranes; Gestation Period, [address], [address], [place] [address], Ph. 01/31/2022 Vaginal Discharge; Gestation Period, DAVID Fairchild: 305 20 Weeks [facility], [address] [address], Ph. 01/29/2022 Gestation Period, 20 Weeks Kimberly Ramsay MD: [address] [place], [address], [place] [address], Ph. 01/29/2022 Screening; Gestation Period, A ella Messina MD: [address] 20 Weeks [place], [address] [place] [address], Ph. 01/15/2022 Gestation Period, 18 Weeks Kimberly Ramsay MD: [address] [place], [address] [place] [address], Ph. 01/15/2022 History of Premature Rupture Luis E Caba MD: [address] of [facility] Rebel [place], [address] [place] [address], Ph. 01/07/2022 Urinary Incontinence Kimberly Ramsay MD: 3 [address] [place], [address] [place] [address], Ph. 01/01/2022 Chromosome Abnormality Screening; Kimberly corral MD: 305 [facility] Burning Sensation of Skin; Gestation Byron olzoey [place], [address], Period, 16 [place] [address], Ph. 01/01/2022 History of Premature Rupture Marga [place] MD: [address] of Membranes; Gestation Period, 16 Inés zoey [place], [address], [place] [address], Ph. 12/27/2021 Cramping Pain; Gestation Period, 15 Devin Nj CNM: [address] Weeks Jerauldruth ann [place], [address], [place] [address], Ph. 12/18/2021 Gestation Period, 14 Weeks Kimberly Ramsay MD: [address] Jerauld [place], [address], [place] [address], Ph. 11/27/2021 Dysuria; Constipation; Pain in Pelvis; L DELMIS Alcantara: [address] [place] [address] Nausea Rebel Crews, [address], [place] [address], Ph. 11/20/2021 Laboratory Test Result Abnormal; Kimberly patrick MD: [address] [place] [address] Normal in Multigravida; Ethan, [address], Gestation Period, 10 Weeks [facility] [address], Ph. 11/08/2021 Intrauterine ; Venereal Kimberly patrick MD: [address] [place] [address] Disease Screening; History of N kena Crews, [address], Section; [place] [address], Ph. 10/30/2021 Finding of Viability of ; Berna Aguilar MD: [address] [place] [address] History of Section Rebel bearden, [address], [place] [address], Ph. 10/30/2021 Finding of Viability of ; Josee Jessica MD: [address] [place] [address] Gestation Period, 7 Weeks Rebel ryan, [address], [place] [address], Ph. 10/17/2021 Graves' Disease; Thromboembolism of Fanny [place] MD: [address] [place] [address] Vein; Subchorionic Hematoma; Vaginal Byron danna Crews, [address], Bleeding Complicating Early ; [place] [address], Ph. Uncertain Viability of 10/17/2021 Vaginal Bleeding Complicating Early Fanny [place] MD: [address] [place] [address] Rebel Crew[address], [address], [place] [address], Ph. 10/08/2021 Abdominal Pain in ; Shayy Caba MD: [address] [place] [address] Test Positive; Constipation Jerauld Lucas [place], [address] [address], Ph. 09/19/2021 Pain of Breast; Irregular Periods KALYANI Gabriel: 305 [facility] Rebel allen, [address] [address], Ph. 08/16/2021 Irregular Periods Kimberly Ramsay MD: 30 5 [facility] Rebel Cerws, [address] [address], Ph. 08/16/2021 Pain in Pelvis Miranda Jessica MD: 305 [facility] Rebel Crew[address] [address], Ph. 07/31/2021 Left Lower Quadrant Pain Juliano Ruelas D: 305 [facility] Rebel Crew[address] [address], Ph. 06/05/2021 Gynecologic Examination Kimberly Ramsay MD : 305 [facility] Rebel [place] [address], Ph. 01/25/2021 History of Fracture; Abdominal Pain Kimberly Ramsay MD: 305 [facility] Jerauldruth ann Crews[address] [address], Ph. Social History Tobacco Smoking Status Never Smoker Vaccine List Vaccine Type DTaP 03/01/1991 04/26/1991 07/07/1991 08/27/1992 03/04/1996 Hep A, ped/adol, 2 dose 09/22/2008 11/09/2009 Hep B, adolescent or pediatric 10/06/2002 11/07/2002 04/28/2003 Hib (PRP-T) 03/01/1991 04/26/1991 07/07/1991 04/06/1992 IPV 03/01/1991 04/26/1991 08/27/1992 03/04/1996 meningococcal MCV4P 09/22/2008 MMR 04/06/1992 05/28/2001 Td (adult) preservative free 01/03/2003 Tdap 09/22/2008 Plan of Care Patient Instructions Instructions: Avoid illicit drugs/ETOH Discussed Hospital and Clinic practice matt adamson, provider options and coverage during and after Clinic hours and routine appt intervals. packet and gestational age appr opriate pt education materials were provided and discussed. Bleeding, pain and complications of were discussed. Discussed diagnostic and screening tests with patient per ACOG guidelines appropriate for age and history - including genetic consult, Amniocentesis, CVS, NIPT, First trimester screen, Quad screen, AFP, Level II US or anatomy US, and Carrier screening. Reviewed all current prescription drug u se. Discontinue the use of all non-medicinal drugs and chemicals. Encouraged breast feeding. Nausea and vomiting of was dis cussed. COVID vaccine and precautions reviewed Return OB visit in 2- wks for NOB visit See additional documentation for today's visit in OB Episode. plan ultrasound in 10 days to confirm p regnancy Reminders Provider Appointments None recorded. ? ? Lab None recorded. ? ? Referral None recorded. ? ? Procedures None recorded. ? ? Surgeries None recorded. ? ? Imaging None recorded. ? ? Vitals 06/19/2022 04:15PM G_POST PROBLEM Height Weight BMI Blood Pressure 5 ft 6 in 157 lbs 25.3 kg/m2 100/72 mm[Hg] 06/16/2022 09:45AM G_POST VISIT Height Weight BMI Blood Pressure 5 ft 6 in 160 lbs 25.8 kg/m2 116/70 mm[Hg] 06/03/2022 03:30PM G_OB VISIT Weight Blood Pressure 171 lbs 120/70 mm[Hg] 05/27/2022 03:15PM G_OB VISIT Height Weight BMI Blood Pressure 5 ft 6 in 171 lbs 27.6 kg/m2 122/66 mm[Hg] 05/21/2022 02:15PM G_OB VISIT Blood Pressure 118/68 mm[Hg] 05/16/2022 03:00PM G_OB VISIT Height Weight BMI Blood Pressure 5 ft 6 in 167.2 lbs 27 kg/m2 114/76 mm[Hg] 05/15/2022 10:00AM G_OB VISIT Height Weight Blood Pressure 5 ft 6 in 167 lbs 122/74 mm[Hg] 05/13/2022 03:30PM G_OB PROBLEM VISIT Weight Blood Pressure 167 lbs 116/70 mm[Hg] 05/12/2022 01:45PM G_OB PROBLEM VISIT Height Weight BMI Blood Pressure 5 ft 6 in 165.8 lbs 26.8 kg/m2 110/74 mm[Hg] 05/07/2022 04:15PM G_OB VISIT Weight Blood Pressure 166 lbs 112/72 mm[Hg] 04/29/2022 03:15PM G_OB PROBLEM VISIT Weight Blood Pressure 163 lbs 112/70 mm[Hg] 04/25/2022 11:15AM G_OB PROBLEM VISIT Weight Blood Pressure 161 lbs 120/74 mm[Hg] 04/22/2022 01:45PM G_OB VISIT Height Weight BMI Blood Pressure 5 ft 6 in 161 lbs 26 kg/m2 106/72 mm[Hg] 04/16/2022 03:15PM G_OB PROBLEM VISIT Height Weight Blood Pressure 5 ft 6 in 158.8 lbs 116/60 mm[Hg] 04/09/2022 09:15AM G_OB VISIT Weight Blood Pressure 157 lbs 118/60 mm[Hg] 03/26/2022 08:45AM G_OB VISIT Weight Blood Pressure 155 lbs 112/60 mm[Hg] 03/18/2022 02:00PM G_OB PROBLEM VISIT Height Weight BMI Blood Pressure 5 ft 6 in 154.6 lbs 25 kg/m2 118/76 mm[Hg] 03/07/2022 01:30PM G_OB PROBLEM VISIT Height Weight BMI Blood Pressure 5 ft 6 in 152.4 lbs 24.6 kg/m2 102/74 mm[Hg] 02/26/2022 02:15PM G_OB VISIT Height Weight Blood Pressure 5 ft 6 in 151.4 lbs 124/68 mm[Hg] 02/12/2022 08:15AM G_OB VISIT Weight Blood Pressure 147.2 lbs 102/60 mm[Hg] 01/31/2022 01:30PM G_OB PROBLEM VISIT Height Weight Blood Pressure 5 ft 6 in 146.7 lbs 100/62 mm[Hg] 01/29/2022 02:15PM G_OB VISIT Weight Blood Pressure 146 lbs 110/60 mm[Hg] 01/15/2022 04:15PM G_OB VISIT Weight Blood Pressure 147 lbs 104/68 mm[Hg] 01/07/2022 01:30PM G_OB PROBLEM VISIT Weight Blood Pressure 142.6 lbs 102/70 mm[Hg] 01/01/2022 01:30PM G_OB VISIT Weight Blood Pressure 143 lbs 110/60 mm[Hg] 12/27/2021 01:00PM G_OB VISIT Height Weight BMI Blood Pressure 5 ft 6 in 141.2 lbs 22.8 kg/m2 116/78 mm[Hg] 12/18/2021 08:00AM G_OB VISIT Weight Blood Pressure 138 lbs 110/60 mm[Hg] 11/27/2021 09:15AM G_OB PROBLEM VISIT Weight Blood Pressure 137 lbs 108/68 mm[Hg] 11/20/2021 02:30PM G_OB VISIT Weight Blood Pressure 139 lbs 102/70 mm[Hg] 11/08/2021 01:00PM G_1ST OB Height Weight BMI Blood Pressure 5 ft 6 in 138 lbs 22.3 kg/m2 110/74 mm[Hg] 10/30/2021 11:30AM G_OB VISIT Height Weight BMI Blood Pressure 5 ft 6 in 138 lbs 22.3 kg/m2 114/68 mm[Hg] 10/17/2021 10:15AM G_OFFICE VISIT Height Weight BMI Blood Pressure 5 ft 6 in 136.8 lbs 22.1 kg/m2 112/68 mm[Hg] 10/08/2021 02:45PM G_OFFICE VISIT Height Weight BMI Blood Pressure 5 ft 6 in 139.2 lbs 22.5 kg/m2 118/76 mm[Hg] 09/19/2021 02:30PM G_OFFICE VISIT Height Weight BMI Blood Pressure 5 ft 6 in 140 lbs 22.6 kg/m2 110/76 mm[Hg] 08/16/2021 11:30AM G_OFFICE VISIT Height Blood Pressure 5 ft 6 in 112/76 mm[Hg] 07/31/2021 03:15PM G_OFFICE VISIT Height Weight BMI Blood Pressure 5 ft 6 in 141 lbs 22.8 kg/m2 112/74 mm[Hg] 06/05/2021 08:30AM G_ANNUAL EXAM Height Weight BMI Blood Pressure 5 ft 6 in 139 lbs 22.4 kg/m2 110/76 mm[Hg] 01/25/2021 04:15PM G_OFFICE VISIT Height Weight BMI Blood Pressure 5 ft 6 in 138 lbs 22.3 kg/m2 110/60 mm[Hg] 11/07/2020 09:15AM G_OFFICE VISIT Height Weight BMI Blood Pressure 5 ft 6 in 137.4 lbs 22.2 kg/m2 114/68 mm[Hg] 10/16/2020 10:30AM G_OFFICE VISIT Height Weight BMI Blood Pressure 5 ft 6 in 139.6 lbs 22.5 kg/m2 90/62 mm[Hg] 12/22/2019 Height Weight BMI Blood Pressure 5 ft 6 in 122.63 lbs 19.79 kg/m2 112/74 mm[Hg] 11/07/2019 Height Weight BMI Blood Pressure 5 ft 6 in 122.25 lbs 19.73 kg/m2 110/68 mm[Hg] 05/07/2018 Height Weight BMI Blood Pressure 5 ft 6 in 111 lbs 17.92 kg/m2 112/76 mm[Hg] 02/01/2016 Height Weight BMI Blood Pressure 5 ft 6 in 111.81 lbs 18.05 kg/m2 92/60 mm[Hg]
--- OUTSIDE RECORDS SUMMARY | 2022-06-23 17:56 | XMS_ITS | Encounter Summary ---
:1990 Author Reason for Visit *OB ROUTINE Assessment and Plan 1. Gestation period, 37 weeks Discussion Note: None [...] in 171 lbs 27.6 kg/m2 122/66 mm[Hg] Results Lab Results None recorded. Allergies [...] Notes: *Surgery Date: 199404/29/2022 US, Obstetric, Follow-up [id number] _edina [address] [place] [address] [place] [phone] (Work Place) 05/07/2022 US, Obstetric, Biophysical Profile CcBryant falconedina [address] [place] [address] [place] [address] (Work Place) 05/15/2022 US, Obstetric, Biophysical Profile CcBryant _mary anna [address] [place] [address] [place] [address] (Work Place) 05/15/2022 Non-stress Test [id number]_[facility]cca [facility] [address] [facility] [address] [place] [phone] (Work Place) 05/20/2022 US, Obstetric, Biophysical Profile CcBryant sancheza [address] [place] [address] [place] [address] (Work Place) 05/20/2022 US, Obstetric, Follow-up [id number] luquea [address] [place] [address] [place] [phone] (Work Place) 05/27/2022 US, Obstetric, Biophysical Profile CcBryant sancheza [address] [place] [address] [place] [address] (Work Place) Vaccine List Vaccine Type DTaP [...] 37 Weeks Kimberly Ramsay MD: [address] [place] [address] [place], [address] [address], Ph. 05/27/2022 Marginal Insertion of Umbilical Belkis Messina MD: [address] Cord; Gestation Period, 37 Weeks Betty t Ele[place], [address] [address], Ph. 05/21/2022 Gestation Period, 36 Weeks; History Kimberly Ramsay MD: [address] of Section Rebel Crews, [address], [place] [address], Ph. 05/20/2022 Marginal Insertion of Umbilical Miranda gilliland MD: [address]; Gestation Period, 36 Weeks Betty jennifer [place], [address], [place] [address], Ph. 05/16/2022 Routine Care; Gestation Kimberly corral MD: [address] Period, 35 Weeks [place], [address], [place] [address], Ph. 05/15/2022 Gestation Period, 35 Weeks; Pruritus KALYANI Potst: [address] of Skin; Marginal Insertion of [place], [address], Umbilical Cord; [place] [address], Ph. Premature Rupture of Membranes; [phone] History of Herpes Zoster; History of Graves' Disease; Ultrasound Scan Abnormal 05/15/2022 Pruritus of Skin; Gestation Period, Fanny Messina MD: [address] 35 Weeks Rebel Crews, [address] [address], Ph. 05/13/2022 Pruritus of Skin Faith Pearson MD: [address] Rebel [place], [address] [address], Ph. 05/12/2022 Vaginal Discharge; Gestation Period, Juliana Flowers MD: [address] 35 Weeks; Supervision of High Risk Inés Crews, [place] [address], [place] [address], Ph. Section Done; History of Premature Delivery; Marginal Insertion of Umbilical Cord 05/07/2022 Urgent Desire to Urinate; Gestation Kimberly Ramsay MD: [address] Period, 34 Weeks Rebel Maried, [address] [address], Ph. 05/07/2022 Reduced Amniotic Fluid; Gestation Beena Messina MD: [address] Period, 34 Weeks Caddohuyen Maried, [address] [address], Ph. 04/29/2022 Tanmay Becerra Contractions; Marginal Marga Ramsay MD: [address] Insertion of Umbilical Cord Rebel bearden, [address] [address], Ph. 04/29/2022 Marginal Insertion of Umbilical Belkis Messina MD: [address]; Gestation Period, [address] [address], Ph. History of Present Illness None recorded. Review of Systems None recorded. Physical Exam None recorded.
--- OUTSIDE RECORDS SUMMARY | 2022-06-23 17:57 | XMS_ITS | Encounter Summary ---
:1990 Author Reason for Visit *OB ROUTINE Assessment and Plan 1. Gestation period, 30 weeks Discussion Note: None recorded.Patient educational handouts: [...] Administered None recorded. Vitals Weight Blood Pressure 157 lbs 118/60 mm[Hg] Results Lab Results None recorded. Allergies [...] Information not avai lable Notes: *Surgery Date: 199403/26/2022 US, Obstetric, Follow-up [id number] _osvaldo [address] [place] [phone] (Work Place) Vaccine List Vaccine Type DTaP [...] Unknown. Past Encounters Encounter Date Diagnosis Provider 04/09/2022 Gestation Period, 30 Weeks Kimberly Ramsay MD: 305 [facility] [place] [address], Ph. 03/26/2022 Screening; History of Kimberly sheppard MD: 305 [facility] Section; [facility] [place] [address], Ph. 03/26/2022 Marginal Insertion of Umbilical Cord; An fifi Messina MD: [address] Gestation Period, 28 Weeks [place] [address] [address], [place] [address], [place] [address], Ph. 03/18/2022 Ferritin Level Low; Tanmay corral MD: 305 [facility] [place], [address] [address], Ph. History of Present Illness None recorded. Review of Systems None recorded. Physical Exam None recorded.
--- OUTSIDE RECORDS SUMMARY | 2022-06-23 17:57 | XMS_ITS | Encounter Summary ---
:1990 Author Reason for Visit None recorded. Assessment and Plan 1. Marginal insertion of umbilical cord ? US, obstetric, follow-up 2. Gestation period, 33 weeks Discussion Note: None recorded.Patient educational handouts: No information available. Plan of Care Reminders Provider Appointments None recorded. ? ? Lab None recorded. ? ? Referral None recorded. ? ? Procedures None recorded. ? ? Surgeries None recorded. ? ? Imaging US, Obstetric, Follow-up 04/29/2022 Cc004 _ras_dariusznery Medications Name Start Date ? ? alcohol [...] Notes: *Surgery Date: 199404/29/2022 US, Obstetric, Follow-up [id number]_eoeayvaox _osvaldo [address] [place] [phone] (Work Place) Vaccine List Vaccine Type DTaP [...] Unknown. Past Encounters Encounter Date Diagnosis Provider 04/29/2022 [place] Bceerra Contractions; Kimberly Ramsay MD: [address] Marginal Insertion of Umbilical [place], [address], [place] [address], Ph. 04/29/2022 Marginal Insertion of Umbilical Belkis Messina MD: [address]; Gestation Period, 33 Weeks [facility] [address], [place] [address], Ph. 04/25/2022 Gestation Period, 32 Weeks; History [place] tram Emery MD: [address] of Section; History of Rebel [place], [address], [place] [address], Ph. 04/22/2022 Irregular Uterine Contractions; Kimberly sheppard MD: 305 [facility] Gestation Period, 32 Weeks [place], [address], [place] [address], Ph. 04/16/2022 Pruritus of Skin; Gestation Period, Maria Del Carmen MonzonMEE: 305 [facility] 31 Weeks; History of [place], [facility] [address], Section; [place] [address], Ph. Disease; Marginal Insertion of Umbilical Cord; History of Premature Rupture of Membranes; History of Thromboembolism; Anemia of ; Restless Legs 04/09/2022 Gestation Period, 30 Weeks Kimberly Ramsay MD: 305 [facility] [place], [facility] [address], [place] [address], Ph. History of Present Illness None recorded. Review of Systems None recorded. Physical Exam None recorded.
--- OUTSIDE RECORDS SUMMARY | 2022-06-23 17:57 | XMS_ITS | Encounter Summary ---
:1990 Author Reason for Visit None recorded. Assessment and Plan 1. Marginal insertion of umbilical cord ? US, obstetric, follow-up 2. Gestation period, 28 weeks Discussion Note: None recorded.Patient educational handouts: No information available. Plan of Care Reminders Provider Appointments None recorded. ? ? Lab None recorded. ? ? Referral None recorded. ? ? Procedures None recorded. ? ? Surgeries None recorded. ? ? Imaging US, Obstetric, Follow-up 03/26/2022 Cc004 _carlbecky_dariusznery Medications Name Start Date ? ? alcohol [...] Notes: *Surgery Date: 199403/26/2022 US, Obstetric, Follow-up [id number]_lpsrtjjew _osvaldo [address] [...] Unknown. Past Encounters Encounter Date Diagnosis Provider 03/26/2022 Screening; History of Kimberly sheppard MD: [address] Section; Gestation Period, [place], [address], [place] [address], Ph. 03/26/2022 Marginal Insertion of Umbilical Cord; An fifi Messina MD: [address] Gestation Period, 28 Weeks [place] [address], [address], [place] [address], Ph. 03/18/2022 Ferritin Level Low; Tanmay corral MD: [address] Contractions [address], [address], [place] [address], Ph. 03/07/2022 Harvey Becerra Contractions Karie Chad ross MD: 305 [facility], [address], [place] [address], Ph. 02/26/2022 Tanmay Becerra Contractions; Gestation An duane Ramsay MD: 305 [facility] Period, 24 Weeks [facility], [facility] [address], [place] [address], Ph. History of Present Illness None recorded. Review of Systems None recorded. Physical Exam None recorded.
--- OUTSIDE RECORDS SUMMARY | 2022-06-23 17:57 | XMS_ITS | Encounter Summary ---
:1990 Author Reason for Visit *OB ROUTINE Assessment and Plan 1. Urgent desire to urinate ? urinalysis, dipstick 2. Gestation period, 34 weeks Discussion Note: None recorded.Patient educational handouts: No information available. Plan of Care Reminders Provider Appointments None recorded. ? ? Lab Urinalysis, Dipstick 05/07/2022 Gc213_dlg [facility] Referral None recorded. ? ? Procedures None [...] Administered None recorded. Vitals Weight Blood Pressure 166 lbs 112/72 mm[Hg] Results Lab Results Date Name Specimen Result Interpretation Description Value Range Status Address ? 05/07/2022 Urinalysis, ? Result Clean ? ? [id number]_cnhogemck_iuwvveslny: Dipstick Source Catch [address] [facility] [address] [place] [address] ? ? ? Result negative ? ? Cc004_s [facility]: Glucose [address] [facility] (mg/DL) [address] [place] [address] ? ? ? Result negative ? ? Cc004_s [facility]: Bilirubin/Neg [address] [facility] ative [address] [place] [address] ? ? ? Result negative ? ? Cc004_s [facility]: Ketones/Negat 305 [facility] [place] stephanie Suite [facility] [place] ? ? ? Result 1.010 ? ? Yl807_d[facility]: Specific 305 [facility] Anthony/1.000 Emili te [facility] [place] ? ? ? Result negative ? ? Cc004_s [facility]: Blood/Negativ 305 [facility] [place] e [address] [place] [address] ? ? ? Result 5.0 ? ? Ld053_ixkhenrico [facility]: pH/5.0 - 9.0 [address] [place] Suite [facility] [place] ? ? ? Result negative ? ? Cc004_s [facility]: Protein/Negat 305 [facility] [place] stephanie [address] [place] [address] ? ? ? Result 0.2 ? ? Ll269_sddhenrico [facility]: Urobilinogen 305 [facility] (EU/dl)/ 0.[address] [place] [address] ? ? ? Result negative ? ? Cc004_s [facility]: Nitrite 305 [facility] [place] [address] [place] [address] ? ? ? Result negative ? ? Cc004_s [facility]: Leukocytes/Ne 305 [facility] [place] gative [address] [place] [address] ? ? ? Result pale ? ? Fs012_ehvhenrico [facility]: Color/ Yellow yellow 305 [facility] [place] to [place], [place] ? ? ? Result clear ? ? Ud879_mlyhenrico [facility]: Appearance 305 [place] [address] [place] [address] Allergies Code Code System Name Reaction Severity [...] Notes: *Surgery Date: 199404/29/2022 US, Obstetric, Follow-up Jc668_jldzmyypohilario diana [address] [facility] [address] [place] [phone] (Work Place) 05/07/2022 US, Obstetric, Biophysical Profile CcBryant webster [address] [place] [phone] (Work [...] Unknown. Past Encounters Encounter Date Diagnosis Provider 05/07/2022 Urgent Desire to Urinate; Gestation Kimberly Ramsay MD: [address] Period, 34 Weeks [address], [address] [address], Ph. 05/07/2022 Reduced Amniotic Fluid; Gestation Beena Messina MD: [address] Period, 34 Weeks [address], [address] [address], Ph. 04/29/2022 [place] Becerra Contractions; Kimberly Ramsay MD: [address] Marginal Insertion of Umbilical [place] [address], [address], [place] [address], Ph. 04/29/2022 Marginal Insertion of Umbilical Belkis Messina MD: [address]; Gestation Period, 33 Weeks [place], [facility] [address], [place] [address], Ph. [phone] 04/25/2022 Gestation Period, 32 Weeks; History [place] tram Emery MD: [address]; History of [place], [facility] [address], [place] [address], Ph. 04/22/2022 Irregular Uterine Contractions; Kimberly sheppard MD: [address] Gestation Period, 32 Weeks [place], [facility] [address], [place] [address], Ph. 04/16/2022 Pruritus of Skin; Gestation Period, Maria Del Carmen salcedosachi Monzon ALEX: [address] 31 Weeks; History of Rebel perez, [facility] [address], Section; [place] [address], Ph. Disease; Marginal Insertion of [phone] Umbilical Cord; History of Premature Rupture of Membranes; History of Thromboembolism; Anemia of ; Restless Legs 04/09/2022 Gestation Period, 30 Weeks Kimberly Ramsay MD: 305 [facility] [address] [address], [address], [place] [address], Ph. History of Present Illness None recorded. Review of Systems None recorded. Physical Exam None recorded.
--- OUTSIDE RECORDS SUMMARY | 2022-06-23 17:57 | XMS_ITS | Encounter Summary ---
:1990 Author Reason for Visit None recorded. Assessment and Plan 1. Reduced amniotic fluid ? US, obstetric, biophysical profile 2. Gestation period, 34 weeks Discussion Note: None recorded.Patient educational handouts: No information available. Plan of Care Reminders Provider Appointments None recorded. ? ? Lab None recorded. ? ? Referral None recorded. ? ? Procedures None recorded. ? ? Surgeries None recorded. ? ? Imaging US, Obstetric, Biophysical 05/07/2022 Cc0 04_[place] Profile Medications Name Start Date [...] Notes: *Surgery Date: 199404/29/2022 US, Obstetric, Follow-up Yy517_lehhgxcuyhilario diana [address] [place] [phone] (Work Place) 05/07/2022 US, Obstetric, Biophysical Profile CcBryant webster [address] [address] [place] [phone] (Work Place) Vaccine List Vaccine Type DTaP [...] Period, 34 Weeks [address], [address], [place] [address], Ph. 05/07/2022 Reduced Amniotic Fluid; Gestation Beena Messina MD: [address] Period, 34 Weeks [address], [address], [place] [address], Ph. 04/29/2022 [place] Becerra Contractions; Kimberly Ramsay MD: [address] Marginal Insertion of Umbilical [place], [address], [place] [address], Ph. 04/29/2022 Marginal Insertion of Umbilical Belkis Messina MD: [address]; Gestation Period, 33 Weeks [place], [address], [place] [address], Ph. 04/25/2022 Gestation Period, 32 Weeks; History [place] tram Emery MD: [address]; History of [place] [address], [address], [place] [address], Ph. 04/22/2022 Irregular Uterine Contractions; Kimberly sheppard MD: 305 [facility] Gestation Period, 32 Weeks [place], [address], [place] [address], Ph. 04/16/2022 Pruritus of Skin; Gestation Period, Maria Del Carmen Monzon ALEX: [address] 31 Weeks; History of Rebel perez, [address], Section; [place] [address], Ph. Disease; Marginal Insertion of Umbilical Cord; History of Premature Rupture of Membranes; History of Thromboembolism; Anemia of ; Restless Legs 04/09/2022 Gestation Period, 30 Weeks Kimberly Ramsay MD: 305 [facility] [address], [address], [place] [address], Ph. History of Present Illness None recorded. Review of Systems None recorded. Physical Exam None recorded.
--- OUTSIDE RECORDS SUMMARY | 2022-06-23 17:57 | XMS_ITS | Encounter Summary ---
:1990 Author Reason for Visit *OB ROUTINE Assessment and Plan 1. Irregular uterine contractions ? urinalysis, dipstick 2. Gestation period, 32 weeks Discussion Note: None recorded.Patient educational handouts: No information available. Plan of Care Reminders Provider Appointments None recorded. ? ? Lab Urinalysis, Dipstick 04/22/2022 Ym525_jfb [facility] Referral None recorded. ? ? Procedures None [...] in 161 lbs 26 kg/m2 106/72 mm[Hg] Results Lab Results Date Name Specimen Result Interpretation Description Value Range Status Address ? 04/22/2022 Urinalysis, ? Result Clean ? ? [id number]_hhxtdvhiv_katyrygrxy: Dipstick Source Catch [address] [facility] [address] [place] [address] ? ? ? Result negative ? ? Cc004_s [facility]: Glucose 305 [facility] (mg/DL) [address] ? ? ? Result negative ? ? Cc004_s [facility]: Bilirubin/Neg 305 East [facility] ative [address] [place] [address] ? ? ? Result negative ? ? Cc004_s [facility] hospitalN[facility]yalank[facility]: Ketones/Negat 305 [facility] [place] stephanie [address] [facility] [place] ? ? ? Result 1.005 ? ? Oc872_nuuaman [place]: Specific 305 [facility] [place]/1.[address] [place] [address] ? ? ? Result negative ? ? 004_s [facility] hospitalNatalyalankin: Blood/Negativ 305 [facility] [place] e [address] [place] [address] ? ? ? Result 7.0 ? ? Mk173_gzo thjettlankin: pH/5.0 - 9.0 [address] [place] [address] [place] [address] ? ? ? Result negative ? ? 004_s car[facility]kn[facility] community hospitalNatalyalankin: Protein/Negat 305 [facility] [place] stephanie [address] [place] [address] ? ? ? Result 0.2 ? ? Or061_nxr thdathienorlando health [facility]: Urobilinogen 305 [facility] (EU/dl)/ 0.[address] [place] [address] ? ? ? Result negative ? ? Cc004_s [facility]loskn[facility] community hospitalNatalyalankin: Nitrite 305 [facility] [place] [address] [place] [address] ? ? ? Result small ? ? Lg747_rpx thdajettlankin: Leukocytes/Ne 305 [facility] [place] gative [address] [place] [address] ? ? ? Result yellow ? ? Ij843_gpf thdathienorlando health [facility]: Color/ Yellow 305 [facility] [place] [address], [place] ? ? ? Result clear ? ? [address]: Appearance 305 [place] [address] [place] [address] Allergies Code Code System Name Reaction Severity [...] Notes: *Surgery Date: 199403/26/2022 US, Obstetric, Follow-up Uz597_gtbrdqlgl _osvaldo [address] [address] [...] Unknown. Past Encounters Encounter Date Diagnosis Provider 04/22/2022 Irregular Uterine Contractions; Kimberly sheppard MD: [address] Gestation Period, 32 Weeks [address], [address], [place] [address], Ph. 04/16/2022 Pruritus of Skin; Gestation Period, KALYANI Peña: [address] 31 Weeks; History of Rebel perez, [address], Section; [place] [address], Ph. Disease; Marginal Insertion of [phone] Umbilical Cord; History of Premature Rupture of Membranes; History of Thromboembolism; Anemia of ; Restless Legs 04/09/2022 Gestation Period, 30 Weeks Kimberly Ramsay MD: 305 [facility] [place], [address], [place] [address], Ph. 03/26/2022 Screening; History of Kimberly sheppard MD: 305 [facility] Section; Gestation Period, [facility] [place], [address], [place] [address], Ph. 03/26/2022 Marginal Insertion of Umbilical Belkis Messina MD: 305 [facility] Cord; Gestation Period, 28 Weeks Betty jennifer Crews, [address], [place] [address], Ph. History of Present Illness None recorded. Review of Systems None recorded. Physical Exam None recorded.
--- OUTSIDE RECORDS SUMMARY | 2022-06-23 17:57 | XMS_ITS | Encounter Summary ---
:1990 Author Reason for Visit *OB PROBLEM Assessment and Plan Assessment Note I spent a total of 21 minutes providing care for this patient including: preparing to see the patient, obtaining a medical history, completing a medically appropriate physical exam, completing documentation of visit information and plans in the EMR, counseling the patient and/or caregiver regarding her diagnosis, treatment options and follow up plans, as well as any nece ssary communication of subsequent test results to the patient 1. Pruritus of skin - bile acids drawn today - discussed possible dx including dry sk in, cholestasis of ? CMP, serum or plasma ? hemoglobin (Hb), blood ? bile acids, fractionated + total, ser um 2. Gestation period, 31 weeks 3. History of section 4. History of Graves' disease 5. Marginal insertion of umbilical cord 6. History of premature rupture of membranes 7. History of thromboembolism 8. Anemia of - desires recheck of hemoglobin today, ordered above - taking iron supplementation 9. Restless legs - discussed rest/stretching, magnesium, and hydration Discussion Note: None recorded.Patient educational handouts: No information available. Plan of Care Reminders Provider Appointments None recorded. ? ? Lab CMP, Serum or Plasma 04/16/2022 [facility] ? Hemoglobin (Hb), Blood 04/16/2022 [facility] ? Bile Acids, Fractionated + Total, 04/16/2022 [facility] Serum Referral None recorded. ? ? Procedures None [...] ft 6 in 158.8 lbs 116/60 mm[Hg] Results Lab Results Date Name Specimen Result Interpretation Description Value Range Status Address ? 04/16/2022 Hemoglobin Blood Low Hemoglobin 11.1 11.7-15.7 F [facility] (Hb), Blood venous g/dL g/dL [place]: [address], [place] 04/16/2022 CMP, Serum or Blood Low Sodium 134 136-145 [place] Plasma venous mmol/ mmol/L [place]: L [address], [place] ? ? Blood ? Potassium 3.7 3.4-5.3 Final [facility] venous mmol/ mmol/L [place]: L [address], [place] ? ? Blood ? Chloride 100 98-107 Final [facility] h venous mmol/ mmol/L [place]: L [address], [place] ? ? Blood ? Carbon Dioxide 22 22-29 Final [facility] venous (Co2) mmol/ mmol/L [place]: L [address], [place] ? ? Blood ? Anion Gap 12 7-15 Final [facility] venous mmol/ mmol/L [place]: L [address], [place] ? ? Blood ? Urea Nitrogen 7.9 6.0-20.0 Final [facility] venous mg/dL mg/dL [place]: [address], [place] ? ? Blood Low Creatinine 0.50 0.51-0.95 Final [facility] venous mg/dL mg/dL [place]: [address], [place] ? ? Blood ? Calcium 8.9 8.6-10.0 Final [facility] venous mg/dL mg/dL [place]: [address], [place] ? ? Blood High Glucose 153 70-99 Final [facility] venous mg/dL mg/dL [place]: [address], [place] ? ? Blood ? Alkaline 80 35-104 U/L Final [facility] ealt venous Phosphatase U/L [place]: [address], [place] ? ? Blood ? Ast 18 10-35 U/L [facility] U/L [place]: [address] [facility] [address], [place] ? ? Blood ? Alt 10 10-35 U/L [facility] U/L [place]: [address] [facility] [address], [place] ? ? Blood ? Protein Total 6.4 6.4-8.3 Final [facility] venous g/dL g/dL [place]: [address] [facility] [address], [place] ? ? Blood ? Albumin 3.6 3.5-5.2 Final [facility] venous g/dL g/dL [place]: [address] [facility] [address], [place] ? ? Blood ? Bilirubin 0.6 <=1.2 Final [facility] venous Total mg/dL mg/dL [place]: [address] [facility] [address], [place] ? ? Blood ? GFR Estimate >90 >60 Final [facility] ealt venous mL/mi mL/min/1.7 [place]: n/1.7 3m2 [address] [facility], [place] 04/16/2022 Bile Acids, Blood ? Ursodeoxycholi 0.3 0.0-1. 0 Final [facility] Fractionated venous c Acid umol/ umol/L [place]: + Total, L [address], [place] ? ? Blood ? Cholic Acid 0.4 0.0-1.9 Final [facility] ealt venous umol/ umol/L [place]: L [address] [facility] [address], [place] ? ? Blood ? Chenodeoxychol 0.6 0.0-3.4 Final [facility] venous ic umol/ umol/L [place]: L [address], [place] ? ? Blood ? Deoxycholic 0.6 0.0-2.5 Final H [facility]alth venous Acid umol/ umol/L [place]: L [address] [facility] [address], [place] ? ? Blood ? Bile Acids 1.9 0.0-7.0 Final [facility] al[facility] venous Total umol/ umol/L [place]: L [address] [facility] [address], [place] Allergies Code [...] not avai lable Notes: *Surgery Date: 199403/26/2022 , Obstetric, Follow-up [id number] _osvaldo [address] [place] [address] [place] [address] (Work Place) Vaccine List Vaccine Type [...] Unknown. Past Encounters Encounter Date Diagnosis Provider 04/16/2022 Pruritus of Skin; Gestation Period, Maria Del Carmen MonzonKALYANI: [address] 31 Weeks; History of [place] Js perez, [facility] [address], Section; History of Graves' Disease; [place] [address], Ph. Marginal Insertion of Umbilical Cord; History of Premature Rupture of Membranes; History of Thromboembolism; Anemia of ; Restless Legs 04/09/2022 Gestation Period, 30 Weeks Kimberly Ramsay MD: [address] [facility] Rebel Crews, [address] [address], Ph. 03/26/2022 Screening; History of Kimberly hseppard MD: [address] [facility] Section; Gestation Period, Devin vallecillo Eleonora, [facility] [address], [address] [place] [address], Ph. 03/26/2022 Marginal Insertion of Umbilical Belkis Messina MD: [address]; Gestation Period, 28 Weeks Betty jennifer Crews, [facility] [address], [place] [address], Ph. 03/18/2022 Ferritin Level Low; Tanmay corral MD: [address] [facility] Rebel Crews, [address] [address], Ph. History of Present Illness Note: <div>Destiney presents today for an OB problem visit for increased restless legs and itchy hands/forearms. Notes restless legs and other twitching has increased over the past few weeks. Discussed magnesium supplementation, desires electrolytes to be checked so doing CMP w/ bile acids. Additionally, notes increased itching of hands and forearms over the past week, no epigastric pain, bile acids drawn today. </div><div>
</div><div>Continues to have BH ctxns but none more than usual, +FM, denies VB/LOF/painful ctxn. </div> Review of Systems ? 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 Reported By: Patient Constitutional: Constitutional: no significa nt weight loss Skin: Skin: no abnormal moles, no rashes Respiratory: Respiratory: no dyspnea / sh ortness of breath, no cough, no wheezing Cardiovascular: Cardiovascular: no chest magdi n, no palpitations Gastrointestinal: Gastrointestinal: no nausea, no vomiting, no diarrhea, no constipation, no rectal blee ding; no hemorrhoids Genitourinary: Genitourinary: no trouble ur inating, no incontinence; no frequency, no urgency, no dysuria Neurological: Neurologic: no headaches, no LOC, no numbness; no tingling Psychological: Psych: no depression; no anx iety Notes: Denies breast lumps, nipple discharge, breast skin changes, and redness of breasts.Denies Ex cessive thirst, excessive hair growth, easy bleeding, lymph node en largement or tenderness Physical Exam ? Annual Exam ([facility]) Reported By: Patient Constitutional: *General Appearance: healthy -appearing, well-nourished, well-developed Head: Head: normocephalic Lungs: *Respiratory Effort: no acce ssory muscle usage Skin: *Appearance: no rashes Neurological System: Impressions: motor: no defic its Psychiatric: *Orientation: to person, to place, to time. *Mood and Affect: active and alert, normal moo d, normal affect
--- OUTSIDE RECORDS SUMMARY | 2022-06-23 17:57 | XMS_ITS | Encounter Summary ---
:1990 Author Reason for Visit *OB ROUTINE Assessment and Plan 1. screening ? unlisted lab - rapid plama reagin W r eflex to titer ? unlisted lab - hemoglobin ? unlisted lab - glucose tolerance gest ational screen (1 hour) 2. History of section ? section (SURG) 3. Gestation period, 28 weeks Discussion Note: None recorded.Patient educational handouts: No information available. Plan of Care Reminders Provider Appointments None recorded. ? ? Lab Unlisted Lab 03/26/2022 [facility] ? Unlisted Lab 03/26/2022 [facility] ? Unlisted Lab 03/26/2022 [facility] Referral None recorded. ? ? Procedures None recorded. ? ? Surgeries Section (SURG) 06/10/2022 [facility] L&D Imaging None recorded. ? ? Medications Name [...] Administered None recorded. Vitals Weight Blood Pressure 155 lbs 112/60 mm[Hg] Results Lab Results Date Name Specimen Result Interpretation Description Value Range Status Address ? 03/26/2022 Hemoglobin Low Hemoglobin 11.4 g/dL 11.7-15. 7 Final [facility] (Hb), Blood g/dL [facility] iew: [address], [place] 03/26/2022 Glucose ? Gluose 115 mg/dL 70-129 mg/dL Fi nal [facility] Tolerance Gest Screen Fa irview: Test, 1HR 50G [address], , 1-Hour [place] 03/26/2022 RPR (Rapid Blood ? Rapid nonreactiv nonreactive Final [facility] Plasma venous Plasma e [place]: Reagin), Re[place] [address], [place] Allergies [...] Notes: *Surgery Date: 199403/26/2022 US, Obstetric, Follow-up [id number] _osvaldo [address] [place] [address] [place] [address] (Work Place) Vaccine List Vaccine [...] sheppard MD: [address]; Gestation Period, [facility], [address], [address] [place] [address], Ph. 03/26/2022 Marginal Insertion of Umbilical Cord; An fifi Messina MD: [address] Gestation Period, 28 Weeks [facility], [address], [place] [address], Ph. 03/18/2022 Ferritin Level Low; [place] Becerra Kimberly corral MD: [address] Contractions [facility], [place] [address], [place] [address], Ph. 03/07/2022 [place] Bec[place] Contractions Karie ross MD: [address] [facility], [address], [place] [address], Ph. 02/26/2022 [place] Becerra Contractions; Gestation An duane Ramsay MD: [address] Period, 24 Weeks [facility], [address], [place] [address], Ph. History of Present Illness None recorded. Review of Systems None recorded. Physical Exam None recorded.
--- OUTSIDE RECORDS SUMMARY | 2022-06-23 17:57 | XMS_ITS | Encounter Summary ---
:1990 Author Reason for Visit None recorded. Assessment and Plan Assessment Note I spent a total of 10 minutes providing care for this patient including: [...] to the patient 1. Pruritus of skin ? hepatic function panel, serum ? bile acids, fractionated + total, ser um Discussion Note: None recorded.Patient educational handouts: No information available. Plan of Care Reminders Provider Appointments None recorded. ? ? Lab Hepatic Function Panel, Serum 05/13/2022 [facility] ? Bile Acids, Fractionated + Total, 05/13/2022 [facility] Serum Referral None recorded. ? ? Procedures [...] Administered None recorded. Vitals Weight Blood Pressure 167 lbs 116/70 mm[Hg] Results Lab Results Date Name Specimen Result Interpretation Description Value Range Status Address ? 05/13/2022 Bile Acids, ? Ursodeoxycholic 0.3 0.0-[address] [facility] Fractionated Acid umol/L umol/L [place]: + Total, [address], [place] ? ? ? Cholic Acid 0.7 0.0-1.9 Final M [facility] ealth umol/L umol/L [place]: [address] [facility] [address], [place] ? ? ? Chenodeoxycholic 1.0 0.0-3.4 Final Health umol/L umol/L [place]: [address] [facility] [address], [place] ? ? ? Deoxycholic Acid 1.1 0.0-2.5 Final Health umol/L umol/L [place]: [address] [facility] [address], [place] ? ? ? Bile Acids Total 3.1 0.0-7.0 Final Health umol/L umol/L [place]: [address] [facility] [address], [place] 05/13/2022 Hepatic Blood Low Protein Total 6.0 6.4-8.3 Fin al [facility] Function venous g/dL g/dL [place] : Panel, Serum [address] [facility] [address], [place] ? ? Blood Low Albumin 3.3 3.5-5.2 [facility] g/[facility] g/dL [place]: [address] [facility] [address], [place] ? ? Blood ? Bilirubin Total 0.4 <=1.2 Final Health venous mg/dL mg/dL [place]: [address] [facility] [address], [place] ? ? Blood ? Alkaline 96 U/L 35-104 Final Healt h venous Phosphatase U/L [place]: [address] [facility] [address], [place] ? ? Blood ? Ast 16 U/L 10-35 Final Health venous U/L [place]: [address] [facility] [address], [place] ? ? Blood ? Alt 11 U/L 10-35 Final Health venous U/L [place]: [address] [facility] [address], [place] ? ? Blood ? Bilirubin Direct <0.20 0.00-0.3 [facility] venous mg/dL 0 mg/dL [place]: [address] [facility] [address], [place] Allergies Code [...] Notes: *Surgery Date: 199404/29/2022 US, Obstetric, Follow-up [id number] _osvaldo [address] [place] [address] 1 00 [place] [id number] (Work Place) 05/07/2022 US, Obstetric, Biophysical Profile [id number] _ras_osvaldo [address] [address] [place] [phone] (Work Place) Vaccine List Vaccine Type DTaP [...] Unknown. Past Encounters Encounter Date Diagnosis Provider 05/13/2022 Pruritus of Skin Faith Pearson MD: [address] [place] [address] Rebel Crews, [address] [address], Ph. 05/12/2022 Vaginal Discharge; Gestation Period, Juliana wanda Flowers MD: [address] 35 Weeks; Supervision of High Risk Inés Crews, [place] [address], [place] [address], Ph. Section Done; History of Premature Delivery; Marginal Insertion of Umbilical Cord 05/07/2022 Urgent Desire to Urinate; Gestation Kimberly Ramsay MD: [address] [facility] Period, 34 Weeks Rebel Crews, [address] [address], Ph. 05/07/2022 Reduced Amniotic Fluid; Gestation Beena Messina MD: [address] [place] [address] Period, 34 Weeks Rebel Crews, [address] [address], Ph. 04/29/2022 Byron Becerra Contractions; Marginal Marga Ramsay MD: [address] [place] [address] Insertion of Umbilical Cord Rebel bearden, [address] [address], Ph. 04/29/2022 Marginal Insertion of Umbilical Belkis Messina MD: [address]; Gestation Period, [address] [address], Ph. [phone] 04/25/2022 Gestation Period, 32 Weeks; History Lucy tram Emery MD: [address] Section; History of Rebel Crews, [place] [address], [place] [address], Ph. 04/22/2022 Irregular Uterine Contractions; Kimberly sheppard MD: [address] [place] [address] Gestation Period, 32 Weeks Rebel Otf beck, [address] [address], Ph. 04/16/2022 Pruritus of Skin; Gestation Period, Maria Del Carmen Monzon, NP: [address] 31 Weeks; History of Rebel perez, [address], Section; History of Graves' Disease; [place] [address], Ph. Marginal Insertion of Umbilical [phone] Cord; History of Premature Rupture of Membranes; History of Thromboembolism; Anemia of ; Restless Legs History of Present Illness Note: <div>Pt is on metrogel for the 4th time this . </div> Review of Systems None recorded. Physical Exam None recorded.
--- OUTSIDE RECORDS SUMMARY | 2022-06-23 17:57 | XMS_ITS | Encounter Summary ---
:1990 Author Reason for Visit *OB PROBLEM Assessment and Plan Assessment Note Due to high risk medical problems assoc iated with , this patient has been seen more than the typical 14 OB visits. 1. Vaginal discharge pt called with results showing BV. Rx f or metrogel sent in. See separate orders note. ? bacterial vaginosis + vaginitis panel , vaginal 2. Gestation period, 35 weeks 3. Supervision of high risk w ith history of previous section done 4. History of premature delivery 5. Marginal insertion of umbilical cord Discussion Note Counseled on BV infection in . Rx for Metrogel sent. Counseled about contractions. Ce rvix unchanged Return to clinic Thursday as scheduled Patient educational handouts: No information available. Plan of Care Reminders Provider Appointments None recorded. ? ? Lab Bacterial Vaginosis + 05/12/2022 [id number] Vaginitis Panel, Vaginal Referral None recorded. ? ? Procedures None [...] in 165.8 lbs 26.8 kg/m2 110/74 mm[Hg] Results Lab Results Date Name Specimen Result Interpretation Description Value Range Status Address ? 05/12/2022 Bacterial Vaginal ? Gardnerella positive negative ? [id number]: Vaginosis [address] [place] [address] [facility] Vaginitis Panel, Vaginal ? ? Vaginal ? Trichomonas negative negative ? [id number]: [address] [facility] ? ? Vaginal ? Antonia negative negative ? [id number]: [address] [facility] Allergies Code Code System Name Reaction Severity [...] Notes: *Surgery Date: 199404/29/2022 US, Obstetric, Follow-up [id number] _dariusz [address] [place] [address] 1 00 [place] [id number] (Work Place) 05/07/2022 US, Obstetric, Biophysical Profile CcBryant _ras_dariusza [address] [address] [place] [phone] (Work Place) Vaccine List Vaccine Type DTaP [...] Unknown. Past Encounters Encounter Date Diagnosis Provider 05/12/2022 Vaginal Discharge; Gestation Period, Juliana wanda Flowers MD: [address] 35 Weeks; Supervision of High Risk Inés greer Eleonora, [facility] 393, [place] [address], Ph. Section Done; History of Premature Delivery; Marginal Insertion of Umbilical Cord 05/07/2022 Urgent Desire to Urinate; Gestation Kimberly Ramsay MD: [address] Period, 34 Weeks Rebel Mildred, [facility] [address], [place] [address], Ph. 05/07/2022 Reduced Amniotic Fluid; Gestation Beena Messina MD: [address] Period, 34 Weeks Rebel Crews, [facility] [address], [place] [address], Ph. 04/29/2022 [place] Becerra Contractions; Marginal Marga Ramsay MD: [address] Insertion of Umbilical Cord [place] Lucas suleiman, [facility] [address], [place] [address], Ph. 04/29/2022 Marginal Insertion of Umbilical Belkis Messina MD: [address]; Gestation Period, [address] [facility] [address], [place] [address], Ph. [phone] 04/25/2022 Gestation Period, 32 Weeks; History Lucy tram Emery MD: [address]; History of [place]ora, [facility] 393, [place] [address], Ph. 04/22/2022 Irregular Uterine Contractions; Kimberly sheppard MD: [address] Gestation Period, 32 Weeks Rebel Colemanglendy beck, [address], [place] [address], Ph. 04/16/2022 Pruritus of Skin; Gestation Period, Maria Del Carmen Monzon, WHNP: [address] 31 Weeks; History of [place]s perez, [address], Section; History of Graves' Disease; [place] [address], Ph. Marginal Insertion of Umbilical [phone] Cord; History of Premature Rupture of Membranes; History of Thromboembolism; Anemia of ; Restless Legs History of Present Illness Note: <div>pt here for concern about ongoing contractions but also concerned about a yellow/green vaginal discharge and vaginal irritation and odor. Hx BV earlier in the and in past </div> Review of Systems None recorded. Physical Exam ? Annual Exam ([facility]) Reported By: Patient Constitutional: *General Appearance: healthy -appearing, well-nourished, well-developed Lungs: Inspection: normal, normal r espiratory rate Female Genitalia: Vulva: no masses, no atrophy , no lesions. Mons: normal, no erythema, no excoriation, no atrophy, no lesions, no vesicles/ ulcers, no masses, no swelli ng, no tenderness. Labia Majora: normal, no erythema, no exco riation, no atrophy, no discoloration, no lesions, no vesicles/ ulc ers, no masses, no swelling, no tenderness. Labia Minora: no rmal, no erythema, no excoriation, no atrophy, no discoloration, n o lesions, no vesicles, no masses, no swelling, no tenderness. Int roitus: normal. Bartholin's Gland: normal. *Vagina: no blood pr esent, no tenderness, discharge present; pt declines spec ex am. *Cervix: ; closed.soft,50%, -2. *Urethral Meatus/ Urethra: n ormal meatus, no discharge, well supported urethra, no masses , no tenderness Rectum: *Anus & Perineum: normal per ianal skin, no anal fissure, no hemorrhoids, normal perineum Psychiatric: *Orientation: to person, to place, to time. *Mood and Affect: active and alert, normal moo d, normal affect
--- OUTSIDE RECORDS SUMMARY | 2022-06-23 17:57 | XMS_ITS | Encounter Summary ---
:1990 Author Reason for Visit *OB PROBLEM Assessment and Plan Assessment Note Total time spent in reviewing patient's history and outside records, discussion of patient's concerns, examination, reviewi ng and discussing imaging, ordering additional tests, counseling with shared decision making, sending prescriptions and documentation was 20minutes. 1. Gestation period, 32 weeks No evidence of PPROM - did instruct pat ient that typical evaluation does include a speculum exam but requested only pH from swab. PH normal (4.5) and no ferning seen. Per ineum also appeared dry. Cervix recently checked with no change in cramping symptoms. Pt to continue to monitor but suspect more likely just increase in discharge. 2. History of section 3. History of premature delivery Discussion Note: None recorded.Patient educational handouts: No [...] Administered None recorded. Vitals Weight Blood Pressure 161 lbs 120/74 mm[Hg] Results Lab Results None recorded. Allergies [...] Notes: *Surgery Date: 199403/26/2022 US, Obstetric, Follow-up [id number] _osvaldo [address] [place] [address] [...] Unknown. Past Encounters Encounter Date Diagnosis Provider 04/25/2022 Gestation Period, 32 Weeks; History Lucy say Florencia Emery MD: [address]; History of [address], [address], [place] [address], Ph. 04/22/2022 Irregular Uterine Contractions; Kimberly sheppard MD: [address] Gestation Period, 32 Weeks [address], [address], [place] [address], Ph. 04/16/2022 Pruritus of Skin; Gestation Period, Maria Del Carmen MonzonMEENP: [address] 31 Weeks; History of [address], [address], Section; [place] [address], Ph. Disease; Marginal Insertion of [phone] Umbilical Cord; History of Premature Rupture of Membranes; History of Thromboembolism; Anemia of ; Restless Legs 04/09/2022 Gestation Period, 30 Weeks Kimberly Ramsay MD: [address], [address], [place] [address], Ph. 03/26/2022 Screening; History of Kimberly sheppard MD: [address] [facility] Section; Gestation Period, Devin vallecillo [address], [address], [address] [place] [address], Ph. 03/26/2022 Marginal Insertion of Umbilical Belkis Messina MD: [address]; Gestation Period, 28 Weeks [address], [address], [place] [address], Ph. History of Present Illness Note: <div>31 yo at 32.5 presenting with concerns for rupture. Reports having some fluid on her underwear last night and again this AM. Reports that it does not smell like urine. Denies any vaginal itching or irritation. Cramping is unchanged. +FM. </div>Review of Systems: ROS as noted in the HPI Review of Systems None recorded. Physical Exam ? Notes: <div>Declined pelvic exam wi th speculum only blind swab</div><div>
</div><di v>- perineum appeared dry, no leaking observed</div>
--- OUTSIDE RECORDS SUMMARY | 2022-06-23 17:57 | XMS_ITS | Encounter Summary ---
:1990 Author Reason for Visit *OB PROBLEM Assessment and Plan Assessment Note I spent a total of 30 minutes providing care for this patient including: preparing to see the patient, obtaining a medical history, completing a medically appropriate physical exam, completing documentation of visit information and plans in the EMR, counseling the patient and/or caregiver regarding her diagnosis, treatment options and follow up plans 1. Tanmay Becerra contractions Discussed frequent ctx. Cervix remains closed, no sign of PTL. Discussed s/s PTL and when to call. 2. Marginal insertion of umbilical cord Discussed normal growth U/S. Discussed LESLIE 6.7 and MVP 3.1. Plan BPP in 1 week. Discussion Note: None recorded.Patient educational handouts: No [...] Administered None recorded. Vitals Weight Blood Pressure 163 lbs 112/70 mm[Hg] Results Lab Results None recorded. Allergies [...] Notes: *Surgery Date: 199404/29/2022 US, Obstetric, Follow-up [id number] _osvaldo [address] [address] [place] [address] ([facility] [address]) Vaccine List Vaccine Type [...] Past Encounters Encounter Date Diagnosis Provider 04/29/2022 [place] Bec[place] Contractions; Kimberly Ramsay MD: [address] Marginal Insertion of Umbilical [address], [address], [place] [address], Ph. 04/29/2022 Marginal Insertion of Umbilical Belkis Messina MD: [address]; Gestation Period, [address], [address], [place] [address], Ph. [phone] 04/25/2022 Gestation Period, 32 Weeks; History Lucy say Florencia Emery MD: [address]; History of [address], [address], [place] [address], Ph. 04/22/2022 Irregular Uterine Contractions; Kimberly sheppard MD: [address] Gestation Period, 32 Weeks [address], [address], [place] [address], Ph. 04/16/2022 Pruritus of Skin; Gestation Period, KALYANI Pñea: [address] 31 Weeks; History of [address], [address], [place]; [place] [address], Ph. Disease; Marginal Insertion of [phone] Umbilical Cord; History of Premature Rupture of Membranes; History of Thromboembolism; Anemia of ; Restless Legs 04/09/2022 Gestation Period, 30 Weeks Kimberly Ramsay MD: [address] [facility] [address], [address], [place] [address], Ph. History of Present Illness Note: <div>Patient was on L&D again last night with ctx q 10 min. No VB or LOF. She was given IV fluids and ctx stayed q 10 min. Cervix exam was attempted but not really completed due to discomfort. She was sent home.</div><div>
</div><div>She was able to sleep off and on over night. She continues to have ctx today, occasionally q 10 min, other times less frequent. No VB or LOF. Active baby. </div><div>
</div><div>Growth U.S was scheduled for next week due to marginal cord insertion and patient asked to change that to today due to her anxiety,</div> Review of Systems None recorded. Physical Exam ? Annual Exam ([facility]) Reported By: Patient Constitutional: *General Appearance: healthy -appearing, well-nourished, well-developed Lungs: Inspection: normal, normal r espiratory rate Abdomen: *Inspection/Palpation/Auscul tation: non-distended, no tenderness, no guarding, soft; GRAVID, F H 30, FHTs 150 Female Genitalia: Vulva: no masses, no atrophy [...] roitus: normal. Bartholin's Gland: normal. *Vagina: no masses. *Cervix: no cervical motion tenderness; closed/50/-2, posterior. *Ur ethral Meatus/ Urethra: normal meatus, no discharge, well supported urethra, no masses, no tenderness. *Bladder: non-distended, no palpable mass, non-tender. *Adnexa/Parametria: no mass palpable, no tenderness Rectum: *Anus & Perineum: normal per ianal skin, no anal fissure, no hemorrhoids, normal perineum Psychiatric: *Orientation: to person, to place, to time. *Mood and Affect: active and alert, normal moo d, normal affect
--- NOTE | 2022-06-23 18:02 | ED.NURSE ---
Pt up to BR. Voided 300ml
== END 2022-06-23 19:22 | disposition home or self-care (01) ==
PROVIDERS: Emergency Provider Family Medicine
DX: R10.2 Pelvic and perineal pain (principal); N34.2 Other urethritis
CPT/HCPCS: 36415; 74176; 80048; 81001; 81015; 85025; 86140; 96361; 96374; 99284; J1885; J7030